=== PATIENT | female | born 1940 | race Caucasian/White ===

== ENCOUNTER 2023-08-25 16:14 | Emergency (ER) | payer MEDICARE ==
--- NOTE | 2023-08-25 18:51 | ED ---
General Adult HPI - General Chief complaint: Nausea/Vomiting/Diarrhea Stated complaint: DEHYDRATION Time Seen by Provider: 08/25/23 18:35 Source: patient, EMS, RN notes reviewed Mode of arrival: EMS Limitations: no limitations - History of Present Illness Initial comments: 83-year-old female presents emergency department with chief complaint of large bowel movement today. Patient states that she slid to the floor earlier today. She did not hit her head or lose consciousness. She is on Eliquis. She denies any injury from this. She was evaluated by EMS at the time. EMS left her house and she then had an episode where she had a large bowel movement and therefore her daughter called the EMS again. She was then brought to the hospital for further evaluation. She denies abdominal pain, chest pain, shortness of breath, lower extremity swelling, fever. - Related Data Home Medications Medication Instructions Recorded Confirmed Acetaminophen [Tylenol 8 Hour] 1,300 mg PO HS 08/25/23 08/25/23 Acetaminophen [Tylenol Arthritis] 650 mg PO AC-BRKFST 08/25/23 08/25/23 Apixaban [Eliquis] 5 mg PO AC-BID 08/25/23 08/25/23 Atorvastatin [Lipitor] 40 mg PO AC-BRKFST 08/25/23 08/25/23 Calcium Carbonate [Calcium] 600 mg PO HS 08/25/23 08/25/23 Diclofenac Sodium Gel [Voltaren 1% 1 applic TOPICAL QID PRN 08/25/23 08/25/23 Gel] Dulaglutide [Trulicity] 0.75 mg SQ WE 08/25/23 08/25/23 Escitalopram [Lexapro] 20 mg PO DAILY 08/25/23 08/25/23 Ferrous Sulfate [Feosol] 325 mg PO HS 08/25/23 08/25/23 Gabapentin [Neurontin] 300 mg PO TID 08/25/23 08/25/23 Insulin Glargine-Yfgn [Semglee 10 units SQ HS 08/25/23 08/25/23 (Yfgn) Pen] Insulin Lispro 3 unit SQ DIRECTED PRN 08/25/23 08/25/23 Ipratropium-Albuterol Nebulize 3 ml INHALATION RT-QID PRN 08/25/23 08/25/23 [Duoneb 0.5 mg-3 mg/3 ml Soln] Levothyroxine Sodium [Synthroid] 12.5 mcg PO AC-BRKFST 08/25/23 08/25/23 Loperamide HCl [Imodium A-D] 2 mg PO QID PRN 08/25/23 08/25/23 Loratadine 10 mg PO HS 08/25/23 08/25/23 Montelukast [Singulair] 10 mg PO HS 08/25/23 08/25/23 Steger-3/Dha/Epa/Fish Oil [Fish Oil 1 cap PO HS 08/25/23 08/25/23 1,000 mg Softgel] Pantoprazole [Protonix] 40 mg PO AC-BRKFST 08/25/23 08/25/23 Potassium Gluconate 99 mg PO HS 08/25/23 08/25/23 Prevagen 1 tab PO BID 08/25/23 08/25/23 Super B Complex 1 tab PO HS 08/25/23 08/25/23 Tiotropium 2.5 Mcg/Puff [Spiriva 1 puff INHALATION RT-DAILY PRN 08/25/23 08/25/23 Respimat 2.5 Mcg] dilTIAZem HCL [dilTIAZem HCL 24Hr 180 mg PO AC-BRKFST 08/25/23 08/25/23 ER (Xr)] Previous Rx's Medication Instructions Recorded Cephalexin [Keflex] 500 mg PO Q6HR #28 cap 08/25/23 Allergies Allergy/AdvReac Type Severity Reaction Status Date / Time Penicillins Allergy Rash/Hives Verified 08/25/23 17:04 Review of Systems ROS Statement: Those systems with pertinent positive or pertinent negative responses have been documented in the HPI. ROS Other: All systems not noted in ROS Statement are negative. Past Medical History Past Medical History: Atrial Fibrillation, Diabetes Mellitus, Hypertension, Memory Impairment Additional Past Medical History / Comment(s): patient poor historian History of Any Multi-Drug Resistant Organisms: None Reported Past Surgical History: Appendectomy Additional Past Surgical History / Comment(s): patient poor historian Past Psychological History: No Psychological Hx Reported Smoking Status: Never smoker Past Alcohol Use History: None Reported Past Drug Use History: None Reported General Exam Limitations: no limitations General appearance: alert, in no apparent distress Head exam: Present: atraumatic, normocephalic, normal inspection Eye exam: Present: normal appearance, PERRL, EOMI. Absent: scleral icterus, conjunctival injection, periorbital swelling ENT exam: Present: normal exam, mucous membranes moist Neck exam: Present: normal inspection. Absent: tenderness, meningismus, lymphadenopathy Respiratory exam: Present: normal lung sounds bilaterally. Absent: respiratory distress, wheezes, rales, rhonchi, stridor Cardiovascular Exam: Present: regular rate, normal rhythm, normal heart sounds. Absent: systolic murmur, diastolic murmur, rubs, gallop, clicks GI/Abdominal exam: Present: soft, normal bowel sounds. Absent: distended, tenderness, guarding, rebound, rigid Extremities exam: Present: normal inspection, full ROM, normal capillary refill. Absent: tenderness, pedal edema, joint swelling, calf tenderness Back exam: Present: normal inspection Neurological exam: Present: alert, oriented X3 Psychiatric exam: Present: normal affect, normal mood Skin exam: Present: warm, dry, intact, normal color. Absent: rash Course Vital Signs 08/25/23 08/25/23 08/25/23 16:34 17:02 18:02 Temperature 97.9 F Pulse Rate 95 89 85 Respiratory 18 16 18 Rate Blood Pressure 129/68 122/65 131/68 O2 Sat by Pulse 98 Oximetry 08/25/23 08/25/23 19:02 23:41 Temperature 97.6 F Pulse Rate 87 84 Respiratory 20 18 Rate Blood Pressure 143/59 151/84 O2 Sat by Pulse 95 Oximetry Medical Decision Making - Medical Decision Making Was pt. sent in by a medical professional or institution (, PA, SETTER HELPER, urgent care, hospital, or [facility]...) When possible be specific @ -No Did you speak to anyone other than the patient for history (EMS, parent, family, police, friend...)? What history was obtained from this source @ -EMS Did you review nursing and triage notes (agree or disagree)? Why? @ -I reviewed and agree with nursing and triage notes Were old charts reviewed (outside hosp., previous admission, EMS record, old EKG, old radiological studies, urgent care reports/EKG's, [facility] records)? Report findings @ -No old charts were reviewed Differential Diagnosis (chest pain, altered mental status, abdominal pain women, abdominal pain men, vaginal bleeding, weakness, fever, dyspnea, syncope, headache, dizziness, GI bleed, back pain, seizure, CVA, palpatations, mental health, musculoskeletal)? @ -not applicable EKG interpreted by me (3pts min.). @ -none X-rays interpreted by me (1pt min.). @ -None done CT interpreted by me (1pt min.). @ -None done U/S interpreted by me (1pt. min.). @ -None done What testing was considered but not performed or refused? (CT, X-rays, U/S, labs)? Why? @ -None What meds were considered but not given or refused? Why? @ -None Did you discuss the management of the patient with other professionals (professionals i.e. , PA, SETTER HELPER, lab, RT, psych nurse, social services assistant, center administrator, teacher, chief sustainability officer, insurance case manager)? Give summary @ -No Was smoking cessation discussed for >3mins.? @ -No Was critical care preformed (if so, how long)? @ -No Were there social determinants of health that impacted care today? How? (Homelessness, low income, unemployed, alcoholism, drug addiction, transportation, low edu. Level, literacy, decrease access to med. care, [facility], rehab)? @ -No Was there de-escalation of care discussed even if they declined (Discuss DNR or withdrawal of care, Hospice)? DNR status @ -No What co-morbidities impacted this encounter? (DM, HTN, Smoking, COPD, CAD, Cancer, CVA, ARF, Chemo, Hep., AIDS, mental health diagnosis, sleep apnea, morbid obesity)? @ -None Was patient admitted / discharged? Hospital course, mention meds given and route, prescriptions, significant lab abnormalities, going to OR and other pertinent info. @ -discharged. Patient presented to the emergency department via EMS for sliding off the toilet and having a large bowel movement today. She is not having any pain at this time. Denies abdominal pain. Abdomen is soft, nontender. CBC shows 30 CVA 0.3, hemoglobin 12.4, hematocrit 37.1; PT/INR, PTT within normal limits; CMP shows sodium 139, potassium 4.3, creatinine 0.86, glucose 178; UA shows small blood, positive nitrates, large leukocyte esterase. Patient will be treated with Keflex 500 mg QID for UTI. Patient will be discharged home. Patient stable at time of discharge. Case discussed with Dr. Saldana, [facility] Undiagnosed new problem with uncertain prognosis? @ -No Drug Therapy requiring intensive monitoring for toxicity (Heparin, Nitro, Insulin, Cardizem)? @ -No Were any procedures done? @ -No Diagnosis/symptom? @ -UTI Acute, or Chronic, or Acute on Chronic? @ -acute Uncomplicated (without systemic symptoms) or Complicated (systemic symptoms)? @ uncomplicated] Side effects of treatment? @ -No Exacerbation, Progression, or Severe Exacerbation? @ -No Poses a threat to life or bodily function? How? (Chest pain, [place], DE, pneumonia, PE, COPD, DKA, ARF, appy, cholecystitis, CVA, Diverticulitis, Homicidal, Suicidal, threat to staff... and all critical care pts) @ -No - Lab Data Result diagrams: 08/25/23 19:59 08/25/23 19:59 Lab Results 08/25/23 08/25/23 08/25/23 Range/Units 19:59 19:59 19:59 WBC 8.3 (3.8-10.6) k/uL RBC 4.21 (3.80-5.40) m/uL Hgb 12.4 (11.4-16.0) gm/dL Hct 37.1 (34.0-46.0) % MCV 88.0 (80.0-100.0) fL MCH 29.4 (25.0-35.0) pg MCHC 33.4 (31.0-37.0) g/dL RDW 14.1 (11.5-15.5) % Plt Count 185 (150-450) k/uL MPV 9.1 Neutrophils % 74 % Lymphocytes % 17 % Monocytes % 6 % Eosinophils % 1 % Basophils % 0 % Neutrophils # 6.2 (1.3-7.7) k/uL Lymphocytes # 1.4 (1.0-4.8) k/uL Monocytes # 0.5 (0-1.0) k/uL Eosinophils # 0.1 (0-0.7) k/uL Basophils # 0.0 (0-0.2) k/uL PT (10.0-12.5) sec INR (<1.2) APTT (22.0-30.0) sec Sodium 139 (137-145) mmol/L Potassium 4.3 (3.5-5.1) mmol/L Chloride 104 (98-107) mmol/L Carbon Dioxide 26 (22-30) mmol/L Anion Gap 9 mmol/L BUN 17 (7-17) mg/dL Creatinine 0.86 (0.52-1.04) mg/dL Est GFR (CKD-EPI)AfAm 73 (>60 ml/min/1.73 sqM) Est GFR (CKD-EPI)NonAf 63 (>60 ml/min/1.73 sqM) Glucose 178 H (74-99) mg/dL Calcium 9.0 (8.4-10.2) mg/dL Total Bilirubin 0.8 (0.2-1.3) mg/dL AST 25 (14-36) U/L ALT 22 (4-34) U/L Alkaline Phosphatase 90 (38-126) U/L Total Protein 6.1 L (6.3-8.2) g/dL Albumin 3.4 L (3.5-5.0) g/dL Lipase 58 (23-300) U/L Urine Color Yellow Urine Appearance Turbid H (Clear) Urine pH 5.5 (5.0-8.0) Ur Specific Cisco 1.024 (1.001-1.035) Urine Protein 1+ H (Negative) Urine Glucose (UA) Negative (Negative) Urine Ketones Negative (Negative) Urine Blood Small H (Negative) Urine Nitrite Positive H (Negative) Urine Bilirubin Negative (Negative) Urine Urobilinogen <2.0 (<2.0) mg/dL Ur Leukocyte Esterase Large H (Negative) Urine RBC 83 H (0-5) /hpf Urine WBC >182 H (0-5) /hpf Urine WBC Clumps Many H (None) /hpf Ur Squamous Epith Cells 1 (0-4) /hpf Urine Bacteria Many H (None) /hpf Urine Mucus Moderate H (None) /hpf 08/25/23 Range/Units 20:40 WBC (3.8-10.6) k/uL RBC (3.80-5.40) m/uL Hgb (11.4-16.0) gm/dL Hct (34.0-46.0) % MCV (80.0-100.0) fL MCH (25.0-35.0) pg MCHC (31.0-37.0) g/dL RDW (11.5-15.5) % Plt Count (150-450) k/uL MPV Neutrophils % % Lymphocytes % % Monocytes % % Eosinophils % % Basophils % % Neutrophils # (1.3-7.7) k/uL Lymphocytes # (1.0-4.8) k/uL Monocytes # (0-1.0) k/uL Eosinophils # (0-0.7) k/uL Basophils # (0-0.2) k/uL PT 10.3 (10.0-12.5) sec INR 0.9 (<1.2) APTT 24.4 (22.0-30.0) sec Sodium (137-145) mmol/L Potassium (3.5-5.1) mmol/L Chloride (98-107) mmol/L Carbon Dioxide (22-30) mmol/L Anion Gap mmol/L BUN (7-17) mg/dL Creatinine (0.52-1.04) mg/dL Est GFR (CKD-EPI)AfAm (>60 ml/min/1.73 sqM) Est GFR (CKD-EPI)NonAf (>60 ml/min/1.73 sqM) Glucose (74-99) mg/dL Calcium (8.4-10.2) mg/dL Total Bilirubin (0.2-1.3) mg/dL AST (14-36) U/L ALT (4-34) U/L Alkaline Phosphatase (38-126) U/L Total Protein (6.3-8.2) g/dL Albumin (3.5-5.0) g/dL Lipase (23-300) U/L Urine Color Urine Appearance (Clear) Urine pH (5.0-8.0) Ur Specific Cisco (1.001-1.035) Urine Protein (Negative) Urine Glucose (UA) (Negative) Urine Ketones (Negative) Urine Blood (Negative) Urine Nitrite (Negative) Urine Bilirubin (Negative) Urine Urobilinogen (<2.0) mg/dL Ur Leukocyte Esterase (Negative) Urine RBC (0-5) /hpf Urine WBC (0-5) /hpf Urine WBC Clumps (None) /hpf Ur Squamous Epith Cells (0-4) /hpf Urine Bacteria (None) /hpf Urine Mucus (None) /hpf Disposition Clinical Impression: UTI (urinary tract infection) Disposition: HOME SELF-CARE Condition: Stable Instructions (If sedation given, give patient instructions): Urinary Tract Infection in Women (ED) Additional Instructions: Please follow up with your primary care provider. Return to the emergency depa rtment for new or worsening symptoms. Prescriptions: Cephalexin [Keflex] 500 mg PO Q6HR #28 cap Is patient prescribed a controlled substance at d/c from ED?: No Referrals: None,Stated [Primary Care Provider] - 1-2 days
[2023-08-25 20:29] LABS: Basophils % (A) 0 %; Eosinophils # (A) 0.1 k/uL (0-0.7); Eosinophils % (A) 1 %; HCT 37.1 % (34.0-46.0); HGB 12.4 gm/dL (11.4-16.0); Lymphocytes # (A) 1.4 k/uL (1.0-4.8); Lymphocytes % (A) 17 %; MCH 29.4 pg (25.0-35.0); MCHC 33.4 g/dL (31.0-37.0); Mean Platelet Volume 9.1; Monocytes # (A) 0.5 k/uL (0-1.0); Monocytes % (A) 6 %; Neutrophils # (A) 6.2 k/uL (1.3-7.7); Neutrophils % (A) 74 %; Platelet Count 185 k/uL (150-450); RBC 4.21 m/uL (3.80-5.40); RDW 14.1 % (11.5-15.5); WBC 8.3 k/uL (3.8-10.6)
[2023-08-25 20:45] LABS: ALT 22 U/L (4-34); AST 25 U/L (14-36); African American GFR (CKD) 73 (>60 ml/min/1.73 sqM); Albumin 3.4 g/dL (3.5-5.0); Alkaline Phosphatase 90 U/L (38-126); Anion Gap 9 mmol/L; Blood Urea Nitrogen 17 mg/dL (7-17); Carbon Dioxide 26 mmol/L (22-30); Chloride 104 mmol/L (98-107); Glucose 178 mg/dL (74-99); Lipase 58 U/L (23-300); Non-African American GFR(CKD) 63 (>60 ml/min/1.73 sqM); Potassium 4.3 mmol/L (3.5-5.1); Sodium 139 mmol/L (137-145); Total Bilirubin 0.8 mg/dL (0.2-1.3); Total Protein 6.1 g/dL (6.3-8.2)
[2023-08-25 21:13] LABS: INR 0.9 (<1.2); Partial Thromboplastin Time 24.4 sec (22.0-30.0); Prothrombin Time 10.3 sec (10.0-12.5)
[2023-08-25 22:52] LABS: Appearance,Urine Turbid (Clear); Bacteria,Urine Many /hpf; Bilirubin,Urine Negative (Negative); Blood,Urine Small (Negative); Color,Urine Yellow; Glucose,Urine (UA) Negative (Negative); Ketones,Urine Negative (Negative); Leukocyte Esterase,Urine Large (Negative); Mucus,Urine Moderate /hpf; Nitrite,Urine Positive (Negative); PH, Urine 5.5 (5.0-8.0); Protein,Urine 1+ (Negative); RBC,Urine 83 /hpf (0-5); Specific Gravity,Urine 1.024 (1.001-1.035); Squamous Epithelial Cell,Urine 1 /hpf (0-4); Urobilinogen,Urine <2.0 mg/dL (<2.0); WBC,Urine >182 /hpf (0-5)
[2023-08-25] MEDS ORDERED: CEPHALEXIN 500 MG CAP PO STA (22:56)
[2023-08-26 00:03] VITALS: BP 151/84; PULSE 84; RESP 18; TEMP 97.6
== END 2023-08-26 00:31 | disposition home or self-care (01) ==
LOC: EC 16:14
DX: N39.0 Urinary tract infection, site not specified (principal); I10 Essential (primary) hypertension; E11.9 Type 2 diabetes mellitus without complications; I48.91 Unspecified atrial fibrillation; Z79.4 Long term (current) use of insulin; Z79.899 Other long term (current) drug therapy
CPT/HCPCS: 36415; 80053; 81001; 83690; 85025; 85610; 85730; 87086; 99284

== ENCOUNTER 2023-09-18 21:31 | Observation (INO) | payer MEDICARE ==
[2023-09-18 21:48] LABS: Glucose,Whole Blood 338 mg/dL (70-110)
[2023-09-19 01:19] LABS: Basophils % (A) 1 %; Eosinophils # (A) 0.2 k/uL (0-0.7); Eosinophils % (A) 3 %; HCT 39.2 % (34.0-46.0); HGB 12.9 gm/dL (11.4-16.0); Lymphocytes # (A) 2.4 k/uL (1.0-4.8); Lymphocytes % (A) 38 %; MCH 28.9 pg (25.0-35.0); MCV 87.5 fL (80.0-100.0); Mean Platelet Volume 9.1; Monocytes # (A) 0.4 k/uL (0-1.0); Monocytes % (A) 7 %; Neutrophils # (A) 3.1 k/uL (1.3-7.7); Neutrophils % (A) 50 %; Platelet Count 215 k/uL (150-450); RBC 4.48 m/uL (3.80-5.40); RDW 14.5 % (11.5-15.5); WBC 6.2 k/uL (3.8-10.6)
[2023-09-19 01:40] LABS: ALT 16 U/L (4-34); AST 21 U/L (14-36); African American GFR (CKD) >90 (>60 ml/min/1.73 sqM); Albumin 3.8 g/dL (3.5-5.0); Alkaline Phosphatase 89 U/L (38-126); Anion Gap 13 mmol/L; Blood Urea Nitrogen 13 mg/dL (7-17); Carbon Dioxide 23 mmol/L (22-30); Chloride 99 mmol/L (98-107); Glucose 294 mg/dL (74-99); Non-African American GFR(CKD) 79 (>60 ml/min/1.73 sqM); Potassium 4.4 mmol/L (3.5-5.1); Sodium 135 mmol/L (137-145); Total Bilirubin 0.7 mg/dL (0.2-1.3); Total Protein 6.6 g/dL (6.3-8.2)
[2023-09-19 01:41] LABS: INR 0.9 (<1.2); Prothrombin Time 9.9 sec (10.0-12.5)
--- NOTE | 2023-09-19 01:46 | XR ---
EXAM: XR Chest, 2 Views CLINICAL HISTORY: ITS.REASON XR Reason: Weakness TECHNIQUE: Frontal and lateral views of the chest. COMPARISON: No relevant prior studies available. FINDINGS: Lungs: No consolidation. No overt edema. Pleural space: No pleural effusion. No pneumothorax. Heart: Unremarkable. No cardiomegaly. Bones/joints: Unremarkable. No fracture or malalignment. IMPRESSION: No acute cardiopulmonary abnormality.
[2023-09-19 01:55] LABS: Partial Thromboplastin Time 19.4 sec (22.0-30.0)
[2023-09-19 03:30] LABS: Bacteria,Urine Many /hpf; Mucus,Urine Rare /hpf; RBC,Urine 27 /hpf (0-5); Squamous Epithelial Cell,Urine 3 /hpf (0-4); WBC,Urine >182 /hpf (0-5)
[2023-09-19 03:31] LABS: Appearance,Urine Cloudy (Clear); Bilirubin,Urine Negative (Negative); Blood,Urine Small (Negative); Color,Urine Yellow; Glucose,Urine (UA) 3+ (Negative); Ketones,Urine Negative (Negative); PH, Urine 5.5 (5.0-8.0); Protein,Urine Trace (Negative); Urobilinogen,Urine <2.0 mg/dL (<2.0)
[2023-09-19 03:32] LABS: Leukocyte Esterase,Urine Large (Negative); Nitrite,Urine Positive (Negative)
[2023-09-19] MEDS ORDERED: ACETAMINOPHEN TAB 325 MG TAB PO PRN (03:40)
[2023-09-19] MEDS ORDERED: NALOXONE 0.4 MG/ML 1 ML VIAL IV PRN (03:40)
[2023-09-19] MEDS ORDERED: IBUPROFEN 400 MG TAB PO PRN (03:40)
[2023-09-19] MEDS ORDERED: cefTRIAXone IN SWFI 1,000 MG/10 ML SYRINGE IVP STA ×2 (03:40→08:15)
[2023-09-19] MEDS ORDERED: SODIUM CHLORIDE 0.9% 500 ML 500 ML IV ONE (03:41)
--- NOTE | 2023-09-19 03:42 | ED ---
General Adult HPI - General Chief complaint: Recheck/Abnormal Lab/Rx Stated complaint: Hyperglycemia,uti poss Time Seen by Provider: 09/19/23 01:24 Source: patient Mode of arrival: ambulatory Limitations: no limitations - History of Present Illness Initial comments: 83-year-old female presenting with chief complaint of confusion. Patient is difficult to obtain history from given this confusion. I'm told that she slipped out of her chair at home and called EMS for left assistance. Patient feels like she may have a UTI. She is having some suprapubic pain. She admits to weakness. Patient states that she lives with her daughter, daughter is not present. No fevers or chills. No nausea or vomiting. No chest pain or difficulty breathing. - Related Data Home Medications Medication Instructions Recorded Confirmed Acetaminophen [Tylenol 8 Hour] 1,300 mg PO HS 08/25/23 08/25/23 Acetaminophen [Tylenol Arthritis] 650 mg PO AC-BRKFST 08/25/23 08/25/23 Apixaban [Eliquis] 5 mg PO AC-BID 08/25/23 08/25/23 Atorvastatin [Lipitor] 40 mg PO AC-BRKFST 08/25/23 08/25/23 Calcium Carbonate [Calcium] 600 mg PO HS 08/25/23 08/25/23 Diclofenac Sodium Gel [Voltaren 1% 1 applic TOPICAL QID PRN 08/25/23 08/25/23 Gel] Dulaglutide [Trulicity] 0.75 mg SQ WE 08/25/23 08/25/23 Escitalopram [Lexapro] 20 mg PO DAILY 08/25/23 08/25/23 Ferrous Sulfate [Feosol] 325 mg PO HS 08/25/23 08/25/23 Gabapentin [Neurontin] 300 mg PO TID 08/25/23 08/25/23 Insulin Glargine-Yfgn [Semglee 10 units SQ HS 08/25/23 08/25/23 (Yfgn) Pen] Insulin Lispro 3 unit SQ DIRECTED PRN 08/25/23 08/25/23 Ipratropium-Albuterol Nebulize 3 ml INHALATION RT-QID PRN 08/25/23 08/25/23 [Duoneb 0.5 mg-3 mg/3 ml Soln] Levothyroxine Sodium [Synthroid] 12.5 mcg PO AC-BRKFST 08/25/23 08/25/23 Loperamide HCl [Imodium A-D] 2 mg PO QID PRN 08/25/23 08/25/23 Loratadine 10 mg PO HS 08/25/23 08/25/23 Montelukast [Singulair] 10 mg PO HS 08/25/23 08/25/23 Nitro-3/Dha/Epa/Fish Oil [Fish Oil 1 cap PO HS 08/25/23 08/25/23 1,000 mg Softgel] Pantoprazole [Protonix] 40 mg PO AC-BRKFST 08/25/23 08/25/23 Potassium Gluconate 99 mg PO HS 08/25/23 08/25/23 Prevagen 1 tab PO BID 08/25/23 08/25/23 Super B Complex 1 tab PO HS 08/25/23 08/25/23 Tiotropium 2.5 Mcg/Puff [Spiriva 1 puff INHALATION RT-DAILY PRN 08/25/23 08/25/23 Respimat 2.5 Mcg] dilTIAZem HCL [dilTIAZem HCL 24Hr 180 mg PO AC-BRKFST 08/25/23 08/25/23 ER (Xr)] Previous Rx's Medication Instructions Recorded Cephalexin [Keflex] 500 mg PO Q6HR #28 cap 08/25/23 Allergies Allergy/AdvReac Type Severity Reaction Status Date / Time Penicillins Allergy Rash/Hives Verified 08/25/23 17:04 Review of Systems ROS Statement: Those systems with pertinent positive or pertinent negative responses have been documented in the HPI. ROS Other: All systems not noted in ROS Statement are negative. Past Medical History Past Medical History: Atrial Fibrillation, Diabetes Mellitus, Hypertension, Memory Impairment Additional Past Medical History / Comment(s): patient poor historian History of Any Multi-Drug Resistant Organisms: None Reported Past Surgical History: Appendectomy Additional Past Surgical History / Comment(s): patient poor historian Past Psychological History: No Psychological Hx Reported Smoking Status: Never smoker Past Alcohol Use History: None Reported Past Drug Use History: None Reported General Exam Limitations: no limitations General appearance: alert, in no apparent distress Head exam: Present: atraumatic, normocephalic, normal inspection Eye exam: Present: normal appearance Neck exam: Present: normal inspection, full ROM Respiratory exam: Present: normal lung sounds bilaterally. Absent: respiratory distress, wheezes, rales, rhonchi, stridor Cardiovascular Exam: Present: regular rate, normal rhythm, normal heart sounds. Absent: systolic murmur, diastolic murmur, rubs, gallop, clicks GI/Abdominal exam: Present: soft. Absent: distended, tenderness, guarding, rebound, rigid Neurological exam: Present: alert, altered Psychiatric exam: Present: normal affect, normal mood Skin exam: Present: warm, dry Course Vital Signs 09/18/23 09/19/23 21:33 02:00 Temperature 97.9 F Pulse Rate 61 71 Respiratory 18 18 Rate Blood Pressure 145/80 149/93 O2 Sat by Pulse 97 95 Oximetry EKG Findings - EKG Comments: EKG Findings:: Sinus rhythm with occasional supraventricular premature complexes and a bigeminal pattern. Ventricular rate 70. NM interval 163. QRS 82. QT 406. QTc 427. Medical Decision Making - Medical Decision Making Was pt. sent in by a medical professional or institution (Dr. PA, INSTRUCTIONAL SUPPORT SERVICES DIRECTOR, urgent care, hospital, or senior living...) When possible be specific @ -No Did you speak to anyone other than the patient for history (EMS, parent, family, police, friend...)? What history was obtained from this source @ -No Did you review nursing and triage notes (agree or disagree)? Why? @ -I reviewed and agree with nursing and triage notes Were old charts reviewed (outside hosp., previous admission, EMS record, old EKG, old radiological studies, urgent care reports/EKG's, senior living records)? Report findings @ -No old charts were reviewed Differential Diagnosis (chest pain, altered mental status, abdominal pain women, abdominal pain men, vaginal bleeding, weakness, fever, dyspnea, syncope, headache, dizziness, GI bleed, back pain, seizure, CVA, palpatations, mental h ealth, musculoskeletal)? @ -MDM Differential Weakness: Hypoglycemia, shock, sepsis, hyponatremia, anemia, infection, MA, ETOH, adverse medicine reaction, overdose, stroke. ... This is not meant to be an all- inclusive list EKG interpreted by me (3pts min.). @ -As above X-rays interpreted by me (1pt min.). @ -Chest x-ray shows no acute process CT interpreted by me (1pt min.). @ -None done U/S interpreted by me (1pt. min.). @ -None done What testing was considered but not performed or refused? (CT, X-rays, U/S, labs)? Why? @ -None What meds were considered but not given or refused? Why? @ -None Did you discuss the management of the patient with other professionals (professionals i.e. , PA, INSTRUCTIONAL SUPPORT SERVICES DIRECTOR, lab, RT, psych nurse, manager social responsibility, disability aide, teacher, special officer, employment evaluator/case manager)? Give summary @ -My attending spoke with the [facility] hospitalist group provider on-call who accepted admission Was smoking cessation discussed for >3mins.? @ -No Was critical care preformed (if so, how long)? @ -No Were there social determinants of health that impacted care today? How? (Homelessness, low income, unemployed, alcoholism, drug addiction, transportation, low edu. Level, literacy, decrease access to med. care, group home, rehab)? @ -No Was there de-escalation of care discussed even if they declined (Discuss DNR or withdrawal of care, Hospice)? DNR status @ -No What co-morbidities impacted this encounter? (DM, HTN, Smoking, COPD, CAD, Ca ncer, CVA, ARF, Chemo, Hep., AIDS, mental health diagnosis, sleep apnea, morbid obesity)? @ -None Was patient admitted / discharged? Hospital course, mention meds given and route, prescriptions, significant lab abnormalities, going to OR and other pertinent info. @ -83-year-old female presenting with chief complaint of confusion and weaknes s, suspects that she may have a UTI. History and physical exam were conducted. No leukocytosis or anemia. Hyperglycemic with glucose of 294. Lactic acid 2.3. Normal anion gap and carbon dioxide. Urine shows no ketones. Patient does have a UTI with large leukocytes and positive nitrites. She started on Rocephin, she'll be admitted for UTI, weakness, and confusion. Follow-up with PCP. Report back to ER with any new or worsening symptoms. Discussed return parameters and answered all questions. Patient conveyed verbal understanding and agreed to the plan. I discussed this case in detail with my attending Dr. Saldana Undiagnosed new problem with uncertain prognosis? @ -No Drug Therapy requiring intensive monitoring for toxicity (Heparin, Nitro, Insulin, Cardizem)? @ -No Were any procedures done? @ -No Diagnosis/symptom? @ -UTI Acute, or Chronic, or Acute on Chronic? @ -Acute Uncomplicated (without systemic symptoms) or Complicated (systemic symptoms)? @ -Complicated Side effects of treatment? @ -No Exacerbation, Progression, or Severe Exacerbation? @ -No Poses a threat to life or bodily function? How? (Chest pain, USA, MA, pneumonia, PE, COPD, DKA, ARF, appy, cholecystitis, CVA, Diverticulitis, Homicidal, Suicidal, threat to staff... and all critical care pts) @ -Potentially - Lab Data Result diagrams: 09/19/23 00:49 09/19/23 00:49 Lab Results 09/18/23 09/19/23 09/19/23 Range/Units 21:45 00:49 00:49 WBC 6.2 (3.8-10.6) k/uL RBC 4.48 (3.80-5.40) m/uL Hgb 12.9 (11.4-16.0) gm/dL Hct 39.2 (34.0-46.0) % MCV 87.5 (80.0-100.0) fL MCH 28.9 (25.0-35.0) pg MCHC 33.0 (31.0-37.0) g/dL RDW 14.5 (11.5-15.5) % Plt Count 215 (150-450) k/uL MPV 9.1 Neutrophils % 50 % Lymphocytes % 38 % Monocytes % 7 % Eosinophils % 3 % Basophils % 1 % Neutrophils # 3.1 (1.3-7.7) k/uL Lymphocytes # 2.4 (1.0-4.8) k/uL Monocytes # 0.4 (0-1.0) k/uL Eosinophils # 0.2 (0-0.7) k/uL Basophils # 0.0 (0-0.2) k/uL PT 9.9 L (10.0-12.5) sec INR 0.9 (<1.2) APTT 19.4 L (22.0-30.0) sec Sodium (137-145) mmol/L Potassium (3.5-5.1) mmol/L Chloride (98-107) mmol/L Carbon Dioxide (22-30) mmol/L Anion Gap mmol/L BUN (7-17) mg/dL Creatinine (0.52-1.04) mg/dL Est GFR (CKD-EPI)AfAm (>60 ml/min/1.73 sqM) Est GFR (CKD-EPI)NonAf (>60 ml/min/1.73 sqM) Glucose (74-99) mg/dL POC Glucose (mg/dL) 338 H (70-110) mg/dL POC Glu Education Director ID Sarthak Mckay Plasma Lactic Acid Victor Hugo (0.7-2.0) mmol/L Calcium (8.4-10.2) mg/dL Total Bilirubin (0.2-1.3) mg/dL AST (14-36) U/L ALT (4-34) U/L Alkaline Phosphatase (38-126) U/L Total Protein (6.3-8.2) g/dL Albumin (3.5-5.0) g/dL Urine Color Urine Appearance (Clear) Urine pH (5.0-8.0) Ur Specific [place] (1.001-1.035) Urine Protein (Negative) Urine Glucose (UA) (Negative) Urine Ketones (Negative) Urine Blood (Negative) Urine Nitrite (Negative) Urine Bilirubin (Negative) Urine Urobilinogen (<2.0) mg/dL Ur Leukocyte Esterase (Negative) Urine RBC (0-5) /hpf Urine WBC (0-5) /hpf Urine WBC Clumps (None) /hpf Ur Squamous Epith Cells (0-4) /hpf Urine Bacteria (None) /hpf Urine Mucus (None) /hpf 09/19/23 09/19/23 09/19/23 Range/Units 00:49 00:49 00:49 WBC (3.8-10.6) k/uL RBC (3.80-5.40) m/uL Hgb (11.4-16.0) gm/dL Hct (34.0-46.0) % MCV (80.0-100.0) fL MCH (25.0-35.0) pg MCHC (31.0-37.0) g/dL RDW (11.5-15.5) % Plt Count (150-450) k/uL MPV Neutrophils % % Lymphocytes % % Monocytes % % Eosinophils % % Basophils % % Neutrophils # (1.3-7.7) k/uL Lymphocytes # (1.0-4.8) k/uL Monocytes # (0-1.0) k/uL Eosinophils # (0-0.7) k/uL Basophils # (0-0.2) k/uL PT (10.0-12.5) sec INR (<1.2) APTT (22.0-30.0) sec Sodium 135 L (137-145) mmol/L Potassium 4.4 (3.5-5.1) mmol/L Chloride 99 (98-107) mmol/L Carbon Dioxide 23 (22-30) mmol/L Anion Gap 13 mmol/L BUN 13 (7-17) mg/dL Creatinine 0.71 (0.52-1.04) mg/dL Est GFR (CKD-EPI)AfAm >90 (>60 ml/min/1.73 sqM) Est GFR (CKD-EPI)NonAf 79 (>60 ml/min/1.73 sqM) Glucose 294 H (74-99) mg/dL POC Glucose (mg/dL) (70-110) mg/dL POC Glu Education Director ID Plasma Lactic Acid Victor Hugo 2.3 H* (0.7-2.0) mmol/L Calcium 9.0 (8.4-10.2) mg/dL Total Bilirubin 0.7 (0.2-1.3) mg/dL AST 21 (14-36) U/L ALT 16 (4-34) U/L Alkaline Phosphatase 89 (38-126) U/L Total Protein 6.6 (6.3-8.2) g/dL Albumin 3.8 (3.5-5.0) g/dL Urine Color Yellow Urine Appearance Cloudy H (Clear) Urine pH 5.5 (5.0-8.0) Ur Specific [place] 1.020 (1.001-1.035) Urine Protein Trace H (Negative) Urine Glucose (UA) 3+ (Negative) Urine Ketones Negative (Negative) Urine Blood Small (Negative) Urine Nitrite Positive (Negative) Urine Bilirubin Negative (Negative) Urine Urobilinogen <2.0 (<2.0) mg/dL Ur Leukocyte Esterase Large (Negative) Urine RBC 27 H (0-5) /hpf Urine WBC >182 H (0-5) /hpf Urine WBC Clumps Many H (None) /hpf Ur Squamous Epith Cells 3 (0-4) /hpf Urine Bacteria Many H (None) /hpf Urine Mucus Rare H (None) /hpf Disposition Clinical Impression: UTI (urinary tract infection), Weakness Disposition: ADMITTED IP TO THIS HOSP Condition: Fair Time of Disposition: 03:41
[2023-09-19 06:52] LABS: Glucose,Whole Blood 201 mg/dL (70-110)
[2023-09-19] MEDS: SODIUM CHLORIDE 0.9% 1,000 ML IV SCH ×2 (08:09→18:07)
[2023-09-19] MEDS ORDERED: IPRATROPIUM-ALBUTEROL 3 ML NEB INHALATION PRN (09:03)
[2023-09-19] MEDS ORDERED: NON FORMULARY DRUG (Tiotropium 2.5 Mcg/Puff 10 PUFF Each) INHALATION PRN (09:03)
[2023-09-19] MEDS ORDERED: DEXTROSE 50% SYRINGE 50 ML IVP PRN ×2 (09:05)
[2023-09-19 12:00] LABS: Glucose,Whole Blood 351 mg/dL (70-110)
[2023-09-19] MEDS: ACETAMINOPHEN TAB 325 MG TAB PO SCH (12:10)
[2023-09-19] MEDS: APIXABAN 5 MG TAB PO SCH ×2 (12:10→17:10)
[2023-09-19] MEDS: ESCITALOPRAM 20 MG TAB PO SCH (12:10)
[2023-09-19] MEDS: PANTOPRAZOLE 40 MG TABLET PO SCH (12:11)
[2023-09-19] MEDS: GABAPENTIN 300 MG CAP PO SCH ×3 (12:11→21:42)
[2023-09-19] MEDS: LEVOTHYROXINE 25 MCG TAB PO SCH (12:11)
[2023-09-19] MEDS: INSULIN ASPART (NovoLOG) 100 UNIT/ML VIAL SQ SCH ×3 (12:22→21:40)
--- NOTE | 2023-09-19 12:52 | P.HPIM ---
History of Present Illness H&P Date: 09/19/23 Chief Complaint: Generalized weakness * 83-year-old lady with past medical history significant for atrial fibrillation on anticoagulation with Eliquis, history of hypothyroid, diabetes mellitus type 2, iron deficiency anemia, presents to the emergency department after generalized weakness and unable to get out of the chair at home. Patient states she slipped out of a chair and called EMS persistent. Patient did complain of suprapubic discomfort, patient states she lives with her daughter however she was home alone when this happened. She denied associated fever, chills, nausea, vomiting, chest pain or shortness of breath * Workup in ER included CBC which were WBC 6.9 hemoglobin 12.9 platelet 215, INR of 0.9 * Serum chemistry sodium 135 potassium 4.4 chloride 99 BU and 13 creatinine 0.71 glucose 294 * Serum lactate obtained 2.3 with a follow-up lactate of 1.6 * Urinalysis was obtained which showed extensive amount of WBC, many bacteria, patient was started on IV Rocephin * Patient was given 1 L fluid bolus in ER as well. REVIEW OF SYSTEMS: Generalized weakness, fall, suprapubic discomfort , dysuria CONSTITUTIONAL: No fever, no malaise, no fatigue. HEENT: No recent visual problems or hearing problems. Denied any sore throat. CARDIOVASCULAR: No chest pain, orthopnea, PND, no palpitations, no syncope. PULMONARY: No shortness of breath, no cough, no hemoptysis. GASTROINTESTINAL: Generalized weakness, fall, suprapubic discomfort NEUROLOGICAL: No headaches, no weakness, no numbness. HEMATOLOGICAL: Denies any bleeding or petechiae. GENITOURINARY: Denies any burning micturition, frequency, or urgency. MUSCULOSKELETAL/RHEUMATOLOGICAL: Denies any joint pain, swelling, or any muscle pain. ENDOCRINE: Denies any polyuria or polydipsia. The rest of the 14-point review of systems is negative. PHYSICAL EXAMINATION: GENERAL: The patient is alert and oriented x3, ill appearance HEENT: Pupils are round and equally reacting to light. EOMI. CARDIOVASCULAR: S1 and S2 present. No murmurs, rubs, or gallops. PULMONARY: Chest is clear to auscultation, no wheezing or crackles. ABDOMEN: Soft, suprapubic discomfort MUSCULOSKELETAL: No joint swelling or deformity. EXTREMITIES: No cyanosis, clubbing, or pedal edema. NEUROLOGICAL: Gross neurological examination did not reveal any focal deficits. Past Medical History Past Medical History: Atrial Fibrillation, Diabetes Mellitus, Hypertension, Memory Impairment Additional Past Medical History / Comment(s): patient poor historian History of Any Multi-Drug Resistant Organisms: None Reported Past Surgical History: Appendectomy Additional Past Surgical History / Comment(s): patient poor historian Past Anesthesia/Blood Transfusion Reactions: No Reported Reaction Past Psychological History: No Psychological Hx Reported Smoking Status: Never smoker Past Alcohol Use History: None Reported Past Drug Use History: None Reported Medications and Allergies Home Medications Medication Instructions Recorded Confirmed Type Acetaminophen [Tylenol 8 Hour] 1,300 mg PO HS 08/25/23 09/19/23 History Acetaminophen [Tylenol Arthritis] 650 mg PO AC-BRKFST 08/25/23 09/19/23 History Apixaban [Eliquis] 5 mg PO AC-BID 08/25/23 09/19/23 History Atorvastatin [Lipitor] 40 mg PO AC-BRKFST 08/25/23 09/19/23 History Calcium Carbonate [Calcium] 600 mg PO HS 08/25/23 09/19/23 History Diclofenac Sodium Gel [Voltaren 1% 1 applic TOPICAL QID PRN 08/25/23 09/19/23 History Gel] Dulaglutide [Trulicity] 0.75 mg SQ WE 08/25/23 09/19/23 History Escitalopram [Lexapro] 20 mg PO DAILY 08/25/23 09/19/23 History Ferrous Sulfate [Feosol] 325 mg PO HS 08/25/23 09/19/23 History Gabapentin [Neurontin] 300 mg PO TID 08/25/23 09/19/23 History Insulin Glargine-Yfgn [Semglee 10 units SQ HS 08/25/23 09/19/23 History (Yfgn) Pen] Ipratropium-Albuterol Nebulize 3 ml INHALATION RT-QID PRN 08/25/23 09/19/23 History [Duoneb 0.5 mg-3 mg/3 ml Soln] Levothyroxine Sodium [Synthroid] 12.5 mcg PO AC-BRKFST 08/25/23 09/19/23 History Loperamide HCl [Imodium A-D] 2 mg PO QID PRN 08/25/23 09/19/23 History Loratadine 10 mg PO HS 08/25/23 09/19/23 History Montelukast [Singulair] 10 mg PO HS 08/25/23 09/19/23 History [place]-3/Dha/Epa/Fish Oil [Fish Oil 1 cap PO HS 08/25/23 09/19/23 History 1,000 mg Softgel] Pantoprazole [Protonix] 40 mg PO AC-BRKFST 08/25/23 09/19/23 History Potassium Gluconate 99 mg PO HS 08/25/23 09/19/23 History Prevagen 1 tab PO BID 08/25/23 09/19/23 History Super B Complex 1 tab PO HS 08/25/23 09/19/23 History Tiotropium 2.5 Mcg/Puff [Spiriva 1 puff INHALATION RT-DAILY PRN 08/25/23 09/19/23 History Respimat 2.5 Mcg] dilTIAZem HCL [dilTIAZem HCL 24Hr 180 mg PO AC-BRKFST 08/25/23 09/19/23 History ER (Xr)] Allergies Allergy/AdvReac Type Severity Reaction Status Date / Time Penicillins Allergy Rash/Hives Verified 09/19/23 06:59 Physical Exam Vitals: Vital Signs Temp Pulse Pulse Resp BP BP Pulse Ox 09/19/23 07:59 97.9 F 68 18 168/71 97 09/19/23 06:45 74 125/76 09/19/23 02:00 71 18 149/93 95 09/18/23 21:33 97.9 F 61 18 145/80 97 Intake and Output 09/18/23 09/19/23 09/19/23 22:59 06:59 14:59 Other: Voiding Method External Catheter Weight 98.883 kg 98.883 kg Results CBC & Chem 7: 09/19/23 00:49 09/19/23 00:49 Labs: Abnormal Lab Results - Last 24 Hours (Table) 09/18/23 09/19/23 09/19/23 Range/Units 21:45 00:49 00:49 PT 9.9 L (10.0-12.5) sec APTT 19.4 L (22.0-30.0) sec Sodium (137-145) mmol/L Glucose (74-99) mg/dL POC Glucose (mg/dL) 338 H (70-110) mg/dL Plasma Lactic Acid Victor Hugo (0.7-2.0) mmol/L Urine Appearance Cloudy H (Clear) Urine Protein Trace H (Negative) Urine RBC 27 H (0-5) /hpf Urine WBC >182 H (0-5) /hpf Urine WBC Clumps Many H (None) /hpf Urine Bacteria Many H (None) /hpf Urine Mucus Rare H (None) /hpf 09/19/23 09/19/23 09/19/23 Range/Units 00:49 00:49 06:50 PT (10.0-12.5) sec APTT (22.0-30.0) sec Sodium 135 L (137-145) mmol/L Glucose 294 H (74-99) mg/dL POC Glucose (mg/dL) 201 H (70-110) mg/dL Plasma Lactic Acid [place] 2.3 H* (0.7-2.0) mmol/L Urine Appearance (Clear) Urine Protein (Negative) Urine RBC (0-5) /hpf Urine WBC (0-5) /hpf Urine WBC Clumps (None) /hpf Urine Bacteria (None) /hpf Urine Mucus (None) /hpf Thrombosis Risk Factor Assmnt - Choose All That Apply Other Risk Factors: Yes Each Risk Factor Represents 3 Points: Age 75 years or older Thrombosis Risk Factor Assessment Total Risk Factor Score: 3 Thrombosis Risk Factor Assessment Level: Moderate Risk Assessment and Plan Assessment: Assessment and plan Urinary tract infection Sepsis secondary to UTI Chronic atrial fibrillation Diabetes mellitus type 2 Hypothyroid Hyperlipidemia Hypertension * In regards to urinary tract infection, continue patient on IV Rocephin, follow up on urine cultures and blood cultures * In regards to sepsis from UTI, lactic acid elevated given fluid resuscitation follow-up lactate levels improved follow up on urine cultures and blood cult ures continue IV Rocephin * In regards to atrial fibrillation, continue rate control medications on C ardizem, continue Eliquis >> monitor for hypotension * In regards to diabetes mellitus type 2, Accu-Cheks before meals at bedtime continue Lantus, correctional insulin * In regards to hypothyroid continue Synthyroid * CODE STATUS is full code Time with Patient: Greater than 30
[2023-09-19] MEDS: DILTIAZEM CD 180 MG CAP.ER.24H PO SCH (12:56)
[2023-09-19 17:08] LABS: Glucose,Whole Blood 243 mg/dL (70-110)
[2023-09-19 19:19] LABS: Glucose,Whole Blood 292 mg/dL (70-110)
[2023-09-19 21:15] LABS: Glucose,Whole Blood 216 mg/dL (70-110)
[2023-09-19] MEDS: CALCIUM CARBONATE 500 MG CHEWABLE PO SCH (21:40)
[2023-09-19] MEDS: MONTELUKAST 10 MG TAB PO SCH (21:40)
[2023-09-19] MEDS: ACETAMINOPHEN TAB 500 MG TAB PO SCH (21:40)
[2023-09-19] MEDS: FERROUS SULFATE 325 MG TAB PO SCH (21:40)
[2023-09-19] MEDS: INSULIN DETEMIR (LEVEMIR) 100 UNIT/ML SYR SQ SCH (21:41)
[2023-09-20 05:52] LABS: Glucose,Whole Blood 180 mg/dL (70-110)
[2023-09-20] MEDS: INSULIN ASPART (NovoLOG) 100 UNIT/ML VIAL SQ SCH ×4 (06:26→20:59)
[2023-09-20] MEDS: SODIUM CHLORIDE 0.9% 1,000 ML IV SCH ×2 (07:46→11:45)
[2023-09-20] MEDS: ESCITALOPRAM 20 MG TAB PO SCH (08:31)
[2023-09-20] MEDS: PANTOPRAZOLE 40 MG TABLET PO SCH (08:31)
[2023-09-20] MEDS: ACETAMINOPHEN TAB 325 MG TAB PO SCH (08:31)
[2023-09-20] MEDS: ATORVASTATIN 40 MG TAB PO SCH (08:32)
[2023-09-20] MEDS: LEVOTHYROXINE 25 MCG TAB PO SCH (08:32)
[2023-09-20] MEDS: APIXABAN 5 MG TAB PO SCH ×2 (08:32→16:37)
[2023-09-20] MEDS: DILTIAZEM CD 180 MG CAP.ER.24H PO SCH (08:32)
[2023-09-20] MEDS: GABAPENTIN 300 MG CAP PO SCH ×3 (08:32→20:59)
[2023-09-20 10:57] LABS: HCT 36.4 % (37.2-46.3); HGB 11.6 g/dL (12.0-15.0); MCH 27.6 pg (27.0-32.0); MCHC 31.9 g/dL (32.0-37.0); MCV 86.5 FL (80.0-97.0); Mean Platelet Volume 11.3 FL (9.5-12.2); NRBC Per 100 WBC 0 X 10*3/uL (0.00-0.01); Platelet Count 186 X 10*3/uL (140-440); RBC 4.21 X 10*6/uL (4.10-5.20); RDW 14.4 % (11.5-14.5)
[2023-09-20 11:30] LABS: Glucose,Whole Blood 205 mg/dL (70-110)
[2023-09-20 11:30] LABS: BUN/Creat Ratio 11.12 Ratio (12.00-20.00); Blood Urea Nitrogen 8.9 mg/dL (9.0-27.0); Calcium 8.6 mg/dL (8.7-10.3); Carbon Dioxide 24.7 mmol/L (21.6-31.8); Chloride 106 mmol/L (96-109); Glucose 191 mg/dL (70-110); Potassium 4.2 mmol/L (3.5-5.5); Sodium 142 mmol/L (135-145)
[2023-09-20] MEDS ORDERED: DICLOFENAC SODIUM GEL 100 GM TUBE TOPICAL PRN (11:55)
--- NOTE | 2023-09-20 12:53 | P.PN ---
Subjective Progress Note Date: 09/20/23 * 83-year-old lady with past medical history significant for atrial fibrillation on anticoagulation with Eliquis, history of hypothyroid, diabetes mellitus type 2, iron deficiency anemia, presents to the emergency department after generalized weakness and unable to get out of the chair at home. Patient st ates she slipped out of a chair and called EMS persistent. Patient did complain of suprapubic discomfort, patient states she lives with her daughter however she was home alone when this happened. She denied associated fever, chills, nausea, vomiting, chest pain or shortness of breath * Workup in ER included CBC which were WBC 6.9 hemoglobin 12.9 platelet 215, INR of 0.9 * Serum chemistry sodium 135 potassium 4.4 chloride 99 BU and 13 creatinine 0.71 glucose 294 * Serum lactate obtained 2.3 with a follow-up lactate of 1.6 * Urinalysis was obtained which showed extensive amount of WBC, many bacteria, patient was started on IV Rocephin * Patient was given 1 L fluid bolus in ER as well. * 09/20/2023: Patient seen and evaluated bedside, patient is alert to person and situation however does get confused during conversation. Blood work obtained today showed normal WBC count, urine cultures show gram-negative bacilli, continue patient on IV Rocephin day 2 REVIEW OF SYSTEMS: Generalized weakness, fall, suprapubic discomfort , dysuria, improved CONSTITUTIONAL: No fever, no malaise, no fatigue. HEENT: No recent visual problems or hearing problems. Denied any sore throat. CARDIOVASCULAR: No chest pain, orthopnea, PND, no palpitations, no syncope. PULMONARY: No shortness of breath, no cough, no hemoptysis. GASTROINTESTINAL: Generalized weakness, fall, suprapubic discomfort improved NEUROLOGICAL: No headaches, no weakness, no numbness. HEMATOLOGICAL: Denies any bleeding or petechiae. GENITOURINARY: Denies any burning micturition, frequency, or urgency. MUSCULOSKELETAL/RHEUMATOLOGICAL: Denies any joint pain, swelling, or any muscle pain. ENDOCRINE: Denies any polyuria or polydipsia. The rest of the 14-point review of systems is negative. PHYSICAL EXAMINATION: GENERAL: The patient is alert and oriented x3, ill appearance HEENT: Pupils are round and equally reacting to light. EOMI. CARDIOVASCULAR: S1 and S2 present. No murmurs, rubs, or gallops. PULMONARY: Chest is clear to auscultation, no wheezing or crackles. ABDOMEN: Soft, suprapubic discomfort MUSCULOSKELETAL: No joint swelling or deformity. EXTREMITIES: No cyanosis, clubbing, or pedal edema. NEUROLOGICAL: Gross neurological examination did not reveal any focal deficits. Impaired cognition confused during conversation Objective - Vital Signs Vital signs: Vital Signs Temp 97.4 F L 09/20/23 06:59 Pulse 77 09/20/23 06:59 Resp 18 09/20/23 06:59 BP 164/82 09/20/23 06:59 Pulse Ox 91 L 09/20/23 06:59 FiO2 Intake & Output 09/19/23 09/20/23 09/20/23 18:59 06:59 18:59 Intake Total 1250 Output Total 400 Balance 850 Intake: Intake, IV Titration 450 Amount Sodium Chloride 0.9% 1, 450 000 ml @ 75 mls/hr IV . [id number] [facility] Rx#:[id number] Oral 800 Output: Urine 400 Stool 0 Other: Voiding Method Diaper External Catheter External Catheter External Catheter # Voids 2 1 - Labs CBC & Chem 7: 09/20/23 05:57 09/20/23 05:57 Labs: Abnormal Lab Results - Last 24 Hours (Table) 09/19/23 09/19/23 09/19/23 Range/Units 17:06 19:17 21:13 Hgb (12.0-15.0) g/dL Hct (37.2-46.3) % MCHC (32.0-37.0) g/dL BUN (9.0-27.0) mg/dL BUN/Creatinine Ratio (12.00-20.00) Ratio Glucose (70-110) mg/dL POC Glucose (mg/dL) 243 H 292 H 216 H (70-110) mg/dL Hemoglobin A1c (<=6.0) % Calcium (8.7-10.3) mg/dL 09/20/23 09/20/23 09/20/23 Range/Units 05:45 05:57 05:57 Hgb 11.6 L (12.0-15.0) g/dL Hct 36.4 L (37.2-46.3) % MCHC 31.9 L (32.0-37.0) g/dL BUN (9.0-27.0) mg/dL BUN/Creatinine Ratio (12.00-20.00) Ratio Glucose (70-110) mg/dL POC Glucose (mg/dL) 180 H (70-110) mg/dL Hemoglobin A1c 8.9 H (<=6.0) % Calcium (8.7-10.3) mg/dL 09/20/23 09/20/23 Range/Units 05:57 11:29 Hgb (12.0-15.0) g/dL Hct (37.2-46.3) % MCHC (32.0-37.0) g/dL BUN 8.9 L (9.0-27.0) mg/dL BUN/Creatinine Ratio 11.12 L (12.00-20.00) Ratio Glucose 191 H (70-110) mg/dL POC Glucose (mg/dL) 205 H (70-110) mg/dL Hemoglobin A1c (<=6.0) % Calcium 8.6 L (8.7-10.3) mg/dL Microbiology - Last 24 Hours (Table) 09/19/23 00:49 Urine Culture - Preliminary Urine,Voided Gram Neg Bacilli Assessment and Plan Assessment: Assessment and plan Urinary tract infection Sepsis secondary to UTI Acute delirium secondary to UTI Chronic atrial fibrillation Diabetes mellitus type 2 Hypothyroid Hyperlipidemia Hypertension * In regards to urinary tract infection, continue patient on IV Rocephin Day 2 , follow up on urine cultures gram-negative bacilli and blood cultures * In regards to sepsis from UTI, lactic acid elevated given fluid resuscitation follow-up lactate levels improved follow up on urine cultures and blood cultures>> continue IV Rocephin * In regards to atrial fibrillation, continue rate control medications on Cardizem, continue Eliquis >> monitor for hypotension * In regards to diabetes mellitus type 2, Accu-Cheks before meals at bedtime continue Lantus, correctional insulin * In regards to hypothyroid continue Synthyroid * CODE STATUS is full code
[2023-09-20 17:02] LABS: Glucose,Whole Blood 271 mg/dL (70-110)
[2023-09-20 20:44] LABS: Glucose,Whole Blood 168 mg/dL (70-110)
[2023-09-20] MEDS: MONTELUKAST 10 MG TAB PO SCH (20:59)
[2023-09-20] MEDS: FERROUS SULFATE 325 MG TAB PO SCH (20:59)
[2023-09-20] MEDS: CALCIUM CARBONATE 500 MG CHEWABLE PO SCH (20:59)
[2023-09-20] MEDS: INSULIN DETEMIR (LEVEMIR) 100 UNIT/ML SYR SQ SCH (20:59)
[2023-09-20] MEDS: ACETAMINOPHEN TAB 500 MG TAB PO SCH (20:59)
[2023-09-21 06:15] LABS: Glucose,Whole Blood 154 mg/dL (70-110)
[2023-09-21] MEDS: INSULIN ASPART (NovoLOG) 100 UNIT/ML VIAL SQ SCH ×4 (07:24→21:08)
[2023-09-21] MEDS: ATORVASTATIN 40 MG TAB PO SCH (09:08)
[2023-09-21] MEDS: PANTOPRAZOLE 40 MG TABLET PO SCH (09:08)
[2023-09-21] MEDS: ACETAMINOPHEN TAB 325 MG TAB PO SCH (09:08)
[2023-09-21] MEDS: DILTIAZEM CD 180 MG CAP.ER.24H PO SCH (09:09)
[2023-09-21] MEDS: ESCITALOPRAM 20 MG TAB PO SCH (09:09)
[2023-09-21] MEDS: LEVOTHYROXINE 25 MCG TAB PO SCH (09:09)
[2023-09-21] MEDS: APIXABAN 5 MG TAB PO SCH ×2 (09:10→16:59)
[2023-09-21] MEDS: GABAPENTIN 300 MG CAP PO SCH ×3 (09:10→21:07)
[2023-09-21] MEDS: SODIUM CHLORIDE 0.9% 1,000 ML IV SCH (09:19)
[2023-09-21 10:53] LABS: HCT 37.8 % (37.2-46.3); HGB 12.2 g/dL (12.0-15.0); MCH 27.9 pg (27.0-32.0); MCHC 32.3 g/dL (32.0-37.0); MCV 86.3 FL (80.0-97.0); Mean Platelet Volume 11.5 FL (9.5-12.2); NRBC Per 100 WBC 0 X 10*3/uL (0.00-0.01); Platelet Count 201 X 10*3/uL (140-440); RBC 4.38 X 10*6/uL (4.10-5.20); RDW 14.3 % (11.5-14.5)
[2023-09-21 10:59] LABS: BUN/Creat Ratio 12.88 Ratio (12.00-20.00); Blood Urea Nitrogen 10.3 mg/dL (9.0-27.0); Calcium 8.5 mg/dL (8.7-10.3); Carbon Dioxide 22.6 mmol/L (21.6-31.8); Chloride 107 mmol/L (96-109); Glucose 231 mg/dL (70-110); Potassium 4.2 mmol/L (3.5-5.5); Sodium 142 mmol/L (135-145)
[2023-09-21 11:16] LABS: Glucose,Whole Blood 362 mg/dL (70-110)
--- NOTE | 2023-09-21 12:29 | P.PN ---
Subjective Progress Note Date: 09/21/23 * 83-year-old lady with past medical history significant for atrial fibrillation on anticoagulation with Eliquis, history of hypothyroid, diabetes mellitus type 2, iron deficiency anemia, presents to the emergency department after generalized weakness and unable to get out of the chair at home. Patient st ates she slipped out of a chair and called EMS persistent. Patient did complain of suprapubic discomfort, patient states she lives with her daughter however she was home alone when this happened. She denied associated fever, chills, nausea, vomiting, chest pain or shortness of breath * Workup in ER included CBC which were WBC 6.9 hemoglobin 12.9 platelet 215, INR of 0.9 * Serum chemistry sodium 135 potassium 4.4 chloride 99 BU and 13 creatinine 0.71 glucose 294 * Serum lactate obtained 2.3 with a follow-up lactate of 1.6 * Urinalysis was obtained which showed extensive amount of WBC, many bacteria, patient was started on IV Rocephin * Patient was given 1 L fluid bolus in ER as well. * 09/20/2023: Patient seen and evaluated bedside, patient is alert to person and situation however does get confused during conversation. Blood work obtained today showed normal WBC count, urine cultures show gram-negative bacilli, continue patient on IV Rocephin day 2 * 09/21/2023 : Patient seen and evaluated bedside, patient working with physical therapy, denies of any acute issues, urine culture does show gram-negative bacilli final identification pending. CBC showed improvement in WBC 6.90,, serum chemistry is essentially normal. Continue current medications including IV Rocephin, potential discharge to subacute rehab depending on clinical course REVIEW OF SYSTEMS: Generalized weakness, fall, suprapubic discomfort , dysuria, improved CONSTITUTIONAL: No fever, no malaise, no fatigue. HEENT: No recent visual problems or hearing problems. Denied any sore throat. CARDIOVASCULAR: No chest pain, orthopnea, PND, no palpitations, no syncope. PULMONARY: No shortness of breath, no cough, no hemoptysis. GASTROINTESTINAL: Generalized weakness, fall, suprapubic discomfort improved NEUROLOGICAL: No headaches, no weakness, no numbness. HEMATOLOGICAL: Denies any bleeding or petechiae. GENITOURINARY: Denies any burning micturition, frequency, or urgency. MUSCULOSKELETAL/RHEUMATOLOGICAL: Denies any joint pain, swelling, or any muscle pain. ENDOCRINE: Denies any polyuria or polydipsia. The rest of the 14-point review of systems is negative. PHYSICAL EXAMINATION: GENERAL: The patient is alert and oriented x3, ill appearance HEENT: Pupils are round and equally reacting to light. EOMI. CARDIOVASCULAR: S1 and S2 present. No murmurs, rubs, or gallops. PULMONARY: Chest is clear to auscultation, no wheezing or crackles. ABDOMEN: Soft, suprapubic discomfort MUSCULOSKELETAL: No joint swelling or deformity. EXTREMITIES: No cyanosis, clubbing, or pedal edema. NEUROLOGICAL: Gross neurological examination did not reveal any focal deficits. Mentation has improved Objective - Vital Signs Vital signs: Vital Signs Temp 97.9 F 09/21/23 07:00 Pulse 78 09/21/23 07:00 Resp 19 09/21/23 07:00 BP 141/85 09/21/23 07:00 Pulse Ox 94 L 09/21/23 07:00 FiO2 Intake & Output 09/20/23 09/21/23 09/21/23 18:59 06:59 18:59 Output Total 1500 3100 450 Balance -1500 -3100 -450 Output: Urine 1500 3100 450 Other: Voiding Method External Catheter External Catheter External Catheter - Labs CBC & Chem 7: 09/21/23 07:43 09/21/23 07:43 Labs: Abnormal Lab Results - Last 24 Hours (Table) 09/20/23 09/20/23 09/21/23 Range/Units 17:00 20:42 06:13 Anion Gap (4.00-12.00) mmol/L Glucose (70-110) mg/dL POC Glucose (mg/dL) 271 H 168 H 154 H (70-110) mg/dL Calcium (8.7-10.3) mg/dL 09/21/23 09/21/23 Range/Units 07:43 11:14 Anion Gap 12.40 H (4.00-12.00) mmol/L Glucose 231 H (70-110) mg/dL POC Glucose (mg/dL) 362 H (70-110) mg/dL Calcium 8.5 L (8.7-10.3) mg/dL Microbiology - Last 24 Hours (Table) 09/19/23 08:25 Blood Culture - Preliminary Blood 09/19/23 07:55 Blood Culture - Preliminary Blood 09/19/23 00:49 Urine Culture - Preliminary Urine,Voided Gram Neg Bacilli Assessment and Plan Assessment: Assessment and plan Urinary tract infection Sepsis secondary to UTI Acute delirium secondary to UTI Chronic atrial fibrillation Diabetes mellitus type 2 Hypothyroid Hyperlipidemia Hypertension * In regards to urinary tract infection, continue patient on IV Rocephin Day 3 , follow up on urine cultures gram-negative bacilli and blood cultures * In regards to sepsis from UTI, lactic acid elevated given fluid resuscitation follow-up lactate levels improved follow up on urine cultures and blood cul tures>> continue IV Rocephin * In regards to atrial fibrillation, continue rate control medications on Cardizem, continue Eliquis >> monitor for hypotension * In regards to diabetes mellitus type 2, Accu-Cheks before meals at bedtime continue Lantus, correctional insulin * In regards to hypothyroid continue Synthyroid * Patient working with physical therapy occupational therapy plan to discharge to subacute rehab * CODE STATUS is full code Time with Patient: Greater than 30
[2023-09-21 16:45] LABS: Glucose,Whole Blood 163 mg/dL (70-110)
[2023-09-21 19:34] LABS: Glucose,Whole Blood 208 mg/dL (70-110)
[2023-09-21] MEDS: FERROUS SULFATE 325 MG TAB PO SCH (21:07)
[2023-09-21] MEDS: ACETAMINOPHEN TAB 500 MG TAB PO SCH (21:07)
[2023-09-21] MEDS: MONTELUKAST 10 MG TAB PO SCH (21:07)
[2023-09-21] MEDS: CALCIUM CARBONATE 500 MG CHEWABLE PO SCH (21:07)
[2023-09-21] MEDS: INSULIN DETEMIR (LEVEMIR) 100 UNIT/ML SYR SQ SCH (21:11)
[2023-09-22 05:23] LABS: Glucose,Whole Blood 147 mg/dL (70-110)
[2023-09-22] MEDS: INSULIN ASPART (NovoLOG) 100 UNIT/ML VIAL SQ SCH ×2 (06:14→12:10)
[2023-09-22] MEDS: ACETAMINOPHEN TAB 325 MG TAB PO SCH (08:12)
[2023-09-22] MEDS: PANTOPRAZOLE 40 MG TABLET PO SCH (08:12)
[2023-09-22] MEDS: ESCITALOPRAM 20 MG TAB PO SCH (08:13)
[2023-09-22] MEDS: GABAPENTIN 300 MG CAP PO SCH (08:13)
[2023-09-22] MEDS: LEVOTHYROXINE 25 MCG TAB PO SCH (08:13)
[2023-09-22] MEDS: ATORVASTATIN 40 MG TAB PO SCH (08:13)
[2023-09-22] MEDS: DILTIAZEM CD 180 MG CAP.ER.24H PO SCH (08:13)
[2023-09-22] MEDS: APIXABAN 5 MG TAB PO SCH (08:14)
[2023-09-22 11:12] LABS: HCT 36.2 % (37.2-46.3); HGB 11.7 g/dL (12.0-15.0); MCH 28.1 pg (27.0-32.0); MCHC 32.3 g/dL (32.0-37.0); MCV 86.8 FL (80.0-97.0); Mean Platelet Volume 11.4 FL (9.5-12.2); NRBC Per 100 WBC 0 X 10*3/uL (0.00-0.01); Platelet Count 190 X 10*3/uL (140-440); RBC 4.17 X 10*6/uL (4.10-5.20); RDW 14.4 % (11.5-14.5)
[2023-09-22 11:29] LABS: Blood Urea Nitrogen 8.4 mg/dL (9.0-27.0); Calcium 8.6 mg/dL (8.7-10.3); Carbon Dioxide 24.3 mmol/L (21.6-31.8); Chloride 104 mmol/L (96-109); Glucose 151 mg/dL (70-110); Sodium 138 mmol/L (135-145)
[2023-09-22 11:31] LABS: Glucose,Whole Blood 222 mg/dL (70-110)
--- NOTE | 2023-09-22 12:26 | P.DS ---
Providers Date of admission: 09/19/23 03:41 Expected date of discharge: 09/22/23 Attending physician: Ryan Moser Primary care physician: Stated None Hospital Course: * 83-year-old lady with past medical history significant for atrial fibrillation on anticoagulation with Eliquis, history of hypothyroid, diabetes mellitus type 2, iron deficiency anemia, presents to the emergency department after generalized weakness and unable to get out of the chair at home. Patient states she slipped out of a chair and called EMS persistent. Patient did complain of suprapubic discomfort, patient states she lives with her daughter however she was home alone when this happened. She denied associated fever, chills, nausea, vomiting, chest pain or shortness of breath * Workup in ER included CBC which were WBC 6.9 hemoglobin 12.9 platelet 215, INR of 0.9 * Serum chemistry sodium 135 potassium 4.4 chloride 99 BU and 13 creatinine 0.71 glucose 294 * Serum lactate obtained 2.3 with a follow-up lactate of 1.6 * Urinalysis was obtained which showed extensive amount of WBC, many bacteria, patient was started on IV Rocephin * Patient was given 1 L fluid bolus in ER as well. * 09/20/2023: Patient seen and evaluated bedside, patient is alert to person and situation however does get confused during conversation. Blood work obtained today showed normal WBC count, urine cultures show gram-negative bacilli, continue patient on IV Rocephin day 2 * 09/21/2023 : Patient seen and evaluated bedside, patient working with physical therapy, denies of any acute issues, urine culture does show gram-negative bacilli final identification pending. CBC showed improvement in WBC 6.90,, serum chemistry is essentially normal. Continue current medications including IV Rocephin, potential discharge to subacute rehab depending on clinical course * 09/22/2023: Patient seen and evaluated bedside, patient did have episode of nausea postprandial however that has resolved. Patient to be discharged to subacute rehab, symptoms have improved. Blood work reviewed as well patient to be discharged to subacute rehab REVIEW OF SYSTEMS: Generalized weakness, fall, suprapubic discomfort resolved , dysuria, resolved, nausea resolved CONSTITUTIONAL: No fever, no malaise, no fatigue. HEENT: No recent visual problems or hearing problems. Denied any sore throat. CARDIOVASCULAR: No chest pain, orthopnea, PND, no palpitations, no syncope. PULMONARY: No shortness of breath, no cough, no hemoptysis. GASTROINTESTINAL: Generalized weakness, fall, suprapubic discomfort improved NEUROLOGICAL: No headaches, no weakness, no numbness. HEMATOLOGICAL: Denies any bleeding or petechiae. GENITOURINARY: Denies any burning micturition, frequency, or urgency. MUSCULOSKELETAL/RHEUMATOLOGICAL: Denies any joint pain, swelling, or any muscle pain. ENDOCRINE: Denies any polyuria or polydipsia. The rest of the 14-point review of systems is negative. PHYSICAL EXAMINATION: GENERAL: The patient is alert and oriented x3, chronic ill appearance HEENT: Pupils are round and equally reacting to light. EOMI. CARDIOVASCULAR: S1 and S2 present. No murmurs, rubs, or gallops. PULMONARY: Chest is clear to auscultation, no wheezing or crackles. ABDOMEN: Soft, suprapubic discomfort resolved MUSCULOSKELETAL: No joint swelling or deformity. EXTREMITIES: No cyanosis, clubbing, or pedal edema. NEUROLOGICAL: Gross neurological examination did not reveal any focal deficits. Mentation has improved, alert and oriented 4 Assessment: Assessment and plan Urinary tract infection Sepsis secondary to UTI Klebsiella pneumoniae UTI Acute delirium secondary to UTI resolved Chronic atrial fibrillation Diabetes mellitus type 2 Hypothyroid Hyperlipidemia Hypertension * In regards to urinary tract infection, continue patient on IV Rocephin Day 4>> switched to oral Ceftin , follow up on urine cultures gram-negative bacilli B saline pneumonia and UTI and blood cultures no growth to date * In regards to sepsis from UTI, lactic acid elevated given fluid resuscitation follow-up lactate levels improved follow up on urine cultures and blood cultures>> transition from IV Rocephin to oral Ceftin * In regards to atrial fibrillation, continue rate control medications on Cardizem, continue Eliquis >> monitor for hypotension * In regards to diabetes mellitus type 2, Accu-Cheks before meals at bedtime, continue home regimen upon discharge * In regards to hypothyroid continue Synthyroid * Patient working with physical therapy occupational therapy discharge to subacute rehab Patient Condition at Discharge: Fair Plan - Discharge Summary Discharge Rx Participant: No New Discharge Prescriptions: Continue [place]-3/Dha/Epa/Fish Oil [Fish Oil 1,000 mg Softgel] 1 cap PO HS Loratadine 10 mg PO HS Ferrous Sulfate [Iron (65 MG Elemental)] 325 mg PO HS dilTIAZem HCL [dilTIAZem HCL 24Hr ER (Xr)] 180 mg PO AC-BRKFST Escitalopram [Lexapro] 20 mg PO DAILY Pantoprazole [Protonix] 40 mg PO AC-BRKFST Atorvastatin [Lipitor] 40 mg PO AC-BRKFST Tiotropium 2.5 Mcg/Puff [Spiriva Respimat 2.5 Mcg] 1 puff INHALATION RT-DAILY PRN PRN Reason: Shortness Of Breath Diclofenac Sodium Gel [Voltaren 1% Gel] 1 applic TOPICAL QID PRN PRN Reason: Pain Loperamide HCl [Imodium A-D] 2 mg PO QID PRN PRN Reason: Diarrhea Insulin Glargine-Yfgn [Semglee (Yfgn) Pen] 10 units SQ HS Acetaminophen [Tylenol Arthritis] 650 mg PO AC-BRKFST Super B Complex 1 tab PO HS Acetaminophen [Tylenol 8 Hour] 1,300 mg PO HS Potassium Gluconate 99 mg PO HS Levothyroxine Sodium [Synthroid] 12.5 mcg PO AC-BRKFST Calcium Carbonate [Calcium] 600 mg PO HS Montelukast [Singulair] 10 mg PO HS Apixaban [Eliquis] 5 mg PO AC-BID Ipratropium-Albuterol Nebulize [Duoneb 0.5 mg-3 mg/3 ml Soln] 3 ml INHALATION RT-QID PRN PRN Reason: Shortness Of Breath Prevagen 1 tab PO BID Dulaglutide [Trulicity] 0.75 mg SQ WE Gabapentin [Neurontin] 300 mg PO TID 3 Days #9 cap Discharge Medication List Acetaminophen [Tylenol 8 Hour] 1,300 mg PO HS 08/25/23 [History] Acetaminophen [Tylenol Arthritis] 650 mg PO AC-BRKFST 08/25/23 [History] Apixaban [Eliquis] 5 mg PO AC-BID 08/25/23 [History] Atorvastatin [Lipitor] 40 mg PO AC-BRKFST 08/25/23 [History] Calcium Carbonate [Calcium] 600 mg PO HS 08/25/23 [History] Diclofenac Sodium Gel [Voltaren 1% Gel] 1 applic TOPICAL QID PRN 08/25/23 [History] Dulaglutide [Trulicity] 0.75 mg SQ WE 08/25/23 [History] Escitalopram [Lexapro] 20 mg PO DAILY 08/25/23 [History] Ferrous Sulfate [Iron (65 MG Elemental)] 325 mg PO HS 08/25/23 [History] Insulin Glargine-Yfgn [Semglee (Yfgn) Pen] 10 units SQ HS 08/25/23 [History] Ipratropium-Albuterol Nebulize [Duoneb 0.5 mg-3 mg/3 ml Soln] 3 ml INHALATION RT-QID PRN 08/25/23 [History] Levothyroxine Sodium [Synthroid] 12.5 mcg PO AC-BRKFST 08/25/23 [History] Loperamide HCl [Imodium A-D] 2 mg PO QID PRN 08/25/23 [History] Loratadine 10 mg PO HS 08/25/23 [History] Montelukast [Singulair] 10 mg PO HS 08/25/23 [History] [place]-3/Dha/Epa/Fish Oil [Fish Oil 1,000 mg Softgel] 1 cap PO HS 08/25/23 [History] Pantoprazole [Protonix] 40 mg PO AC-BRKFST 08/25/23 [History] Potassium Gluconate 99 mg PO HS 08/25/23 [History] Prevagen 1 tab PO BID 08/25/23 [History] Super B Complex 1 tab PO HS 08/25/23 [History] Tiotropium 2.5 Mcg/Puff [Spiriva Respimat 2.5 Mcg] 1 puff INHALATION RT-DAILY PRN 08/25/23 [History] dilTIAZem HCL [dilTIAZem HCL 24Hr ER (Xr)] 180 mg PO AC-BRKFST 08/25/23 [History] Gabapentin [Neurontin] 300 mg PO TID 3 Days #9 cap 09/22/23 [Rx] Follow up Appointment(s)/Referral(s): None,Stated [Primary Care Provider] - 1-2 days Discharge/Stand Alone Forms: [facility] PCPs Discharge Disposition: HOME SELF-CARE
[2023-09-22 14:14] VITALS: BP 106/70; PULSE 71; RESP 18; TEMP 97.4
== END 2023-09-22 15:56 | disposition home or self-care (01) ==
LOC: EC 21:31 → EEVIPCON 09-19 03:41 → 6NMEDSUR 09-19 03:41 → 4SSUR 09-19 09:34
PROVIDERS: ADMIT Hospitalist; ATTEND Hospitalist
DX: A41.9 Sepsis, unspecified organism (principal); N39.0 Urinary tract infection, site not specified; B96.1 Klebsiella pneumoniae [K. pneumoniae] as the cause of diseases classified elsewhere; F05 Delirium due to known physiological condition; I48.20 Chronic atrial fibrillation, unspecified; E11.9 Type 2 diabetes mellitus without complications; I10 Essential (primary) hypertension; E03.9 Hypothyroidism, unspecified; E78.5 Hyperlipidemia, unspecified; Z79.01 Long term (current) use of anticoagulants; Z79.899 Other long term (current) drug therapy; Z79.4 Long term (current) use of insulin; Z79.890 Hormone replacement therapy; Z88.0 Allergy status to penicillin
CPT/HCPCS: 96361 ×4; 96365; 96366 ×3; 96372 ×4; 96375; 99285; 36415 ×2; 93005; 97116 ×2; 97530 ×2; 97162; 97535; 97166; 80053; 80048 ×3; 83605; 85025; 85027 ×3; 85610; 85730; 81001; 87040; 87086; 87077; 87186; 83036; 71046; G0378 ×5; J0696 ×5

== ENCOUNTER 2023-09-24 20:06 | Emergency (ER) | payer MEDICARE ==
[2023-09-24] MEDS ORDERED: SODIUM CHLORIDE 0.9% 500 ML 500 ML IV ONE (20:30)
[2023-09-24 20:32] VITALS: TEMP 98.8
[2023-09-24 20:50] LABS: Basophils % (A) 0 %; Eosinophils # (A) 0.2 k/uL (0-0.7); Eosinophils % (A) 2 %; HCT 40.5 % (34.0-46.0); HGB 13.2 gm/dL (11.4-16.0); Lymphocytes # (A) 1.2 k/uL (1.0-4.8); Lymphocytes % (A) 14 %; MCH 28.5 pg (25.0-35.0); MCHC 32.6 g/dL (31.0-37.0); MCV 87.5 fL (80.0-100.0); Mean Platelet Volume 11.8; Monocytes # (A) 0.5 k/uL (0-1.0); Monocytes % (A) 5 %; Neutrophils # (A) 6.7 k/uL (1.3-7.7); Neutrophils % (A) 77 %; Platelet Count 180 k/uL (150-450); RBC 4.63 m/uL (3.80-5.40); RDW 14.9 % (11.5-15.5); WBC 8.8 k/uL (3.8-10.6)
[2023-09-24 21:02] LABS: ALT 30 U/L (4-34); AST 144 U/L (14-36); African American GFR (CKD) 85 (>60 ml/min/1.73 sqM); Albumin 5.3 g/dL (3.5-5.0); Alkaline Phosphatase 34 U/L (38-126); Anion Gap 11 mmol/L; Blood Urea Nitrogen 20 mg/dL (7-17); Calcium 8.3 mg/dL (8.4-10.2); Carbon Dioxide 21 mmol/L (22-30); Chloride 102 mmol/L (98-107); Glucose 277 mg/dL (74-99); Non-African American GFR(CKD) 74 (>60 ml/min/1.73 sqM); Sodium 134 mmol/L (137-145); Total Bilirubin 3.5 mg/dL (0.2-1.3); Total Protein 9.2 g/dL (6.3-8.2)
--- NOTE | 2023-09-24 21:14 | ED ---
General Adult HPI - General Chief complaint: Fall Stated complaint: Fall Time Seen by Provider: 09/24/23 20:21 Source: patient, EMS, RN notes reviewed, old records reviewed Mode of arrival: EMS Limitations: altered mental status - History of Present Illness Initial comments: Patient is an 83-year-old female who presents emergency department for a fall on blood thinners. Fell from standing. Unknown loss of consciousness. Is on Elliquis. Patient is a history of dementia and this therefore poor historian. Is at her baseline alert and oriented times one per EMS. Denies any pain. Has no other acute complaints at this time. Presents for further evaluation at this time. - Related Data Home Medications Medication Instructions Recorded Confirmed Acetaminophen [Tylenol 8 Hour] 1,300 mg PO HS 08/25/23 09/19/23 Acetaminophen [Tylenol Arthritis] 650 mg PO AC-BRKFST 08/25/23 09/19/23 Apixaban [Eliquis] 5 mg PO AC-BID 08/25/23 09/19/23 Atorvastatin [Lipitor] 40 mg PO AC-BRKFST 08/25/23 09/19/23 Calcium Carbonate [Calcium] 600 mg PO HS 08/25/23 09/19/23 Diclofenac Sodium Gel [Voltaren 1% 1 applic TOPICAL QID PRN 08/25/23 09/19/23 Gel] Dulaglutide [Trulicity] 0.75 mg SQ WE 08/25/23 09/19/23 Escitalopram [Lexapro] 20 mg PO DAILY 08/25/23 09/19/23 Ferrous Sulfate [Iron (65 MG 325 mg PO HS 08/25/23 09/19/23 Elemental)] Insulin Glargine-Yfgn [Semglee 10 units SQ HS 08/25/23 09/19/23 (Yfgn) Pen] Ipratropium-Albuterol Nebulize 3 ml INHALATION RT-QID PRN 08/25/23 09/19/23 [Duoneb 0.5 mg-3 mg/3 ml Soln] Levothyroxine Sodium [Synthroid] 12.5 mcg PO AC-BRKFST 08/25/23 09/19/23 Loperamide HCl [Imodium A-D] 2 mg PO QID PRN 08/25/23 09/19/23 Loratadine 10 mg PO HS 08/25/23 09/19/23 Montelukast [Singulair] 10 mg PO HS 08/25/23 09/19/23 [place]-3/Dha/Epa/Fish Oil [Fish Oil 1 cap PO HS 08/25/23 09/19/23 1,000 mg Softgel] Pantoprazole [Protonix] 40 mg PO AC-BRKFST 08/25/23 09/19/23 Potassium Gluconate 99 mg PO HS 08/25/23 09/19/23 Prevagen 1 tab PO BID 08/25/23 09/19/23 Super B Complex 1 tab PO HS 08/25/23 09/19/23 Tiotropium 2.5 Mcg/Puff [Spiriva 1 puff INHALATION RT-DAILY PRN 08/25/23 09/19/23 Respimat 2.5 Mcg] dilTIAZem HCL [dilTIAZem HCL 24Hr 180 mg PO AC-BRKFST 08/25/23 09/19/23 ER (Xr)] Previous Rx's Medication Instructions Recorded Gabapentin [Neurontin] 300 mg PO TID 3 Days #9 cap 09/22/23 cefUROXime axetiL [Ceftin] 500 mg PO BID 3 Days #6 tab 09/22/23 Allergies Allergy/AdvReac Type Severity Reaction Status Date / Time Penicillins Allergy Rash/Hives Verified 09/24/23 20:12 Review of Systems ROS Statement: Those systems with pertinent positive or pertinent negative responses have been documented in the HPI. Review of Systems: CONST: Denies fever EYES: Denies blurry vision ENT: Denies nasal congestion C/V: Denies Chest pain RESP: Denies shortness of breath GI: Denies abdominal pain : Denies dysuria SKIN: Denies rash. MSK: Denies joint pain. NEURO: Denies headache ROS Other: All systems not noted in ROS Statement are negative. Past Medical History Past Medical History: Atrial Fibrillation, Diabetes Mellitus, Hypertension, Memory Impairment Additional Past Medical History / Comment(s): patient poor historian History of Any Multi-Drug Resistant Organisms: None Reported Past Surgical History: Appendectomy Additional Past Surgical History / Comment(s): patient poor historian Past Anesthesia/Blood Transfusion Reactions: No Reported Reaction Past Psychological History: No Psychological Hx Reported Smoking Status: Never smoker Past Alcohol Use History: None Reported Past Drug Use History: None Reported General Exam - General Exam Comments Initial Comments: General: Appears in no acute distress. HEAD: Left-sided forehead hematoma/contusion. Negative pemberton sign. Negative raccoon eyes. EYES: PERRLA, EOMI, conjunctiva normal, no discharge. Pupils are 3 mm and equal bilaterally. ENT: Hearing grossly intact, normal oropharynx. RESPIRATORY: Clear breath sounds bilaterally. No wheezes, rales, or rhonchi. C/V: Regular rate and rhythm. S1 and S2 auscultated, peripheral pulses 2+ and intact throughout ABD: Abd is soft, nontender, nondistended EXT: Normal range of motion, no obvious deformity. Pelvis is stable. No tenderness palpation of the extremities, spine. SKIN: Contusion/hematoma to the left forehead. NEURO: Alert and oriented 1-2, with baseline of 2-3. Boarderline confusion. G CS of 15. Moving all 4 extremities without issue. No other focal neuro deficits. Limitations: altered mental status Course Vital Signs 09/24/23 09/24/23 09/24/23 20:08 21:06 22:03 Temperature 98.8 F Pulse Rate 85 85 87 Respiratory 18 20 20 Rate Blood Pressure 163/75 174/106 162/90 O2 Sat by Pulse 96 96 Oximetry 09/24/23 09/24/23 09/24/23 22:16 22:21 22:27 Temperature Pulse Rate 92 Respiratory 18 Rate Blood Pressure 146/78 144/78 135/84 O2 Sat by Pulse Oximetry 09/24/23 09/24/23 09/24/23 22:41 22:47 22:54 Temperature Pulse Rate 93 96 95 Respiratory 18 18 18 Rate Blood Pressure 140/79 150/74 143/61 O2 Sat by Pulse 93 L 95 Oximetry 09/24/23 22:58 Temperature Pulse Rate 95 Respiratory 18 Rate Blood Pressure 135/89 O2 Sat by Pulse Oximetry Medical Decision Making - Medical Decision Making Was pt. sent in by a medical professional or institution (, PA, NEWS LIBRARIAN, urgent care, hospital, or senior care...) When possible be specific @ -No Did you speak to anyone other than the patient for history (EMS, parent, family, police, friend...)? What history was obtained from this source @ -No Did you review nursing and triage notes (agree or disagree)? Why? @ -I reviewed and agree with nursing and triage notes Were old charts reviewed (outside hosp., previous admission, EMS record, old EKG, old radiological studies, urgent care reports/EKG's, senior care records)? Report findings @ -Old charts reviewed Differential Diagnosis (chest pain, altered mental status, abdominal pain women, abdominal pain men, vaginal bleeding, weakness, fever, dyspnea, syncope, headache, dizziness, GI bleed, back pain, seizure, CVA, palpatations, mental health, musculoskeletal)? @ -Differential Musculoskeletal Muscular strain, contusion, ligament sprain, fracture, arthritis, septic arthritis, bursitis, cellulitis, muscle spasm, nerve compression, DVT, arterial occlusion, herpes zoster, electrolyte abnormality, tumor.... This is not meant to be in all inclusive list. Cannot rule out intracranial hemorrhage, spine injury, other injuries from the fall. EKG interpreted by me (3pts min.). @ -As above X-rays interpreted by me (1pt min.). @ -Chest x-ray shows no obvious acute cardio pulmonary process. Pelvis x-ray reveals no obvious acute injury. CT interpreted by me (1pt min.). @ -CT imaging remarkable for left-sided subdural hemorrhage, approximate 4 mm thick without much mass effect or midline shift. Discussed with radiology. Remainder the CT imaging is still pending at this time. U/S interpreted by me (1pt. min.). @ -None done What testing was considered but not performed or refused? (CT, X-rays, U/S, labs)? Why? @ -None What meds were considered but not given or refused? Why? @ -None Did you discuss the management of the patient with other professionals (professionals i.e. , PA, NEWS LIBRARIAN, lab, RT, psych nurse, social insurance specialist, manager government, teacher, strategic intelligence officer, family service caseworker)? Give summary @ -Transfer process started at 2140. Awaiting trauma team reply. Spoke with Trauma Dr. Huntley at [phone] who accepted the patient and was in agreement with management and the plan. Spoke with ED physician Dr. Steele who was in agreement with the plan. Was smoking cessation discussed for >3mins.? @ -No Was critical care preformed (if so, how long)? @ -yes, 42 minutes Were there social determinants of health that impacted care today? How? (Homelessness, low income, unemployed, alcoholism, drug addiction, t ransportation, low edu. Level, literacy, decrease access to med. care, custodial, rehab)? @ -No Was there de-escalation of care discussed even if they declined (Discuss DNR or withdrawal of care, Hospice)? DNR status @ -No What co-morbidities impacted this encounter? (DM, HTN, Smoking, COPD, CAD, Cancer, CVA, ARF, Chemo, Hep., AIDS, mental health diagnosis, sleep apnea, morbid obesity)? @ -None Was patient admitted / discharged? Hospital course, mention meds given and route, prescriptions, significant lab abnormalities, going to OR and other pertinent info. @ -Patient's presentation and physical exam, presents for a fall on blood thinners and standing. Unknown LOC. Currently is slightly confused in terms of alert and oriented times 1-2 at this time. Baseline is 2-3 per EMS. He presents for further evaluation. Vital signs within acceptable limits. Patient does not meet criteria for trauma activation. Initially conveyed to me the patient's baseline is alert and oriented 2-3, initial evaluation was alert and oriented 1-2. On initial evaluation, We will obtain CT brain, C-spine as well as chest and pelvis x-ray. Attempts made to maintain cervical collar precautions however patient attempts to remove it. Patient has no pain. Was in agreement with the plan. Apparently discussion was had prior to arrival for possible trauma activation. I agree at this time not to activate, as it does appear that with the patient having baseline is alert and oriented 2-3 she seems to be at that with no focal deficits. We'll continue to monitor. Kcentra ordered for Eliquis reversal. Empiric Keppra administered. Patient remains confused, oriented times one to 2.Patient was started on a Cardene drip with goal blood pressure systolic 140-150. At this time, patient will be transferred to [facility] for further care. Transfer process started at 2140. Awaiting trauma team reply. Spoke with Trauma Dr. Huntley at [phone] who accepted the patient and was in agreement with management and the plan. Spoke with ED physician Dr. Steele who was in agreement with the plan. Multple attempts made to contact patient's guardian and daughter were unsuccessful. Paperwork from nursing facility shows patient is a full code. patient transferred in serious condition. Patient remains confused, however is tolerating oral secretions and maintaining airway. Blood pressure is improving on the Cardene drip. Patient's lab studies reviewed. I was able to update the daughter, Natty who did call back and updated her on the status of the patient.There was a delay in transfer, as was a delay in contacting trauma surgeon Seb Ortiz from the transfer center as well as waiting for EMS to arrive to take the patient. Undiagnosed new problem with uncertain prognosis? @ -No Drug Therapy requiring intensive monitoring for toxicity (Heparin, Nitro, Insulin, Cardizem)? @ -No Were any procedures done? @ -No Diagnosis/symptom? @ -Fall, subdural hemorrhage on Eliquis Acute, or Chronic, or Acute on Chronic? @ -Acute Uncomplicated (without systemic symptoms) or Complicated (systemic symptoms)? @ -Complicated Side effects of treatment? @ -none Exacerbation, Progression, or Severe Exacerbation] @ -no Poses a threat to life or bodily function? @ -Yes - Lab Data Result diagrams: 09/24/23 20:35 09/24/23 20:35 Lab Results 09/24/23 09/24/23 09/24/23 Range/Units 20:35 20:35 20:35 WBC 8.8 (3.8-10.6) k/uL RBC 4.63 (3.80-5.40) m/uL Hgb 13.2 (11.4-16.0) gm/dL Hct 40.5 (34.0-46.0) % MCV 87.5 (80.0-100.0) fL MCH 28.5 (25.0-35.0) pg MCHC 32.6 (31.0-37.0) g/dL RDW 14.9 (11.5-15.5) % Plt Count 180 (150-450) k/uL MPV 11.8 PT (10.0-12.5) sec INR (<1.2) APTT 22.1 (22.0-30.0) sec Sodium 134 L (137-145) mmol/L Potassium (3.5-5.1) mmol/L Chloride 102 (98-107) mmol/L Carbon Dioxide 21 L (22-30) mmol/L Anion Gap 11 mmol/L BUN 20 H (7-17) mg/dL Creatinine 0.75 (0.52-1.04) mg/dL Est GFR (CKD-EPI)AfAm 85 (>60 ml/min/1.73 sqM) Est GFR (CKD-EPI)NonAf 74 (>60 ml/min/1.73 sqM) Glucose 277 H (74-99) mg/dL Calcium 8.3 L (8.4-10.2) mg/dL Total Bilirubin 3.5 H (0.2-1.3) mg/dL AST 144 H (14-36) U/L ALT 30 (4-34) U/L Alkaline Phosphatase 34 L (38-126) U/L Total Protein 9.2 H (6.3-8.2) g/dL Albumin 5.3 H (3.5-5.0) g/dL Urine RBC (0-5) /hpf Urine WBC (0-5) /hpf Urine WBC Clumps (None) /hpf Ur Squamous Epith Cells (0-4) /hpf Urine Bacteria (None) /hpf Urine Mucus (None) /hpf Urine Yeast (Budding) (None) /hpf 09/24/23 09/24/23 Range/Units 20:35 22:58 WBC (3.8-10.6) k/uL RBC (3.80-5.40) m/uL Hgb (11.4-16.0) gm/dL Hct (34.0-46.0) % MCV (80.0-100.0) fL MCH (25.0-35.0) pg MCHC (31.0-37.0) g/dL RDW (11.5-15.5) % Plt Count (150-450) k/uL MPV PT 10.9 (10.0-12.5) sec INR 1.0 (<1.2) APTT (22.0-30.0) sec Sodium (137-145) mmol/L Potassium (3.5-5.1) mmol/L Chloride (98-107) mmol/L Carbon Dioxide (22-30) mmol/L Anion Gap mmol/L BUN (7-17) mg/dL Creatinine (0.52-1.04) mg/dL Est GFR (CKD-EPI)AfAm (>60 ml/min/1.73 sqM) Est GFR (CKD-EPI)NonAf (>60 ml/min/1.73 sqM) Glucose (74-99) mg/dL Calcium (8.4-10.2) mg/dL Total Bilirubin (0.2-1.3) mg/dL AST (14-36) U/L ALT (4-34) U/L Alkaline Phosphatase (38-126) U/L Total Protein (6.3-8.2) g/dL Albumin (3.5-5.0) g/dL Urine RBC 31 H (0-5) /hpf Urine WBC >182 H (0-5) /hpf Urine WBC Clumps Few H (None) /hpf Ur Squamous Epith Cells 3 (0-4) /hpf Urine Bacteria Rare H (None) /hpf Urine Mucus Rare H (None) /hpf Urine Yeast (Budding) Moderate H (None) /hpf - EKG Data -: EKG Interpreted by Me EKG Comments: 12-lead Electrocardiogram Interpretation Note EKG was reviewed and interpreted by myself. 12-lead ECG performed at 2017 is interpreted by me as revealing normal sinus rhythm at a rate of 82 beats per minute. [place] is normal. MD interval 263 ms, QRS duration is 88 ms, QTc is 422 ms.. There were no ST or T wave abnormalities to suggest myocardial ischemia or injury. R wave progression across the precordium was satisfactory. By my interpretation this EKG is non-diagnostic for acute ischemia. Critical Care Time Critical Care Time: Yes Total Critical Care Time: 42 Disposition Clinical Impression: Fall, Intracranial hemorrhage, Subdural hematoma Disposition: OTHER INSTITUTION NOT DEFINED Condition: Serious Referrals: None,Stated [Primary Care Provider] - 1-2 days Time of Disposition: 21:45 - Out of Hospital Transfer - Req. Specs Out of Hospital Transfer - Requested Specifics: Other Emergency Center (Transferred to [facility] for traumatic SDH and eval by neurosurgery.)
[2023-09-24] MEDS ORDERED: MORPHINE SULFATE 2 MG/ML SYRINGE IVP STA (21:21)
[2023-09-24] MEDS ORDERED: Kcentra PER PHARMACY 1 EACH MISC MISCELLANE PRN (21:30)
[2023-09-24] MEDS ORDERED: levETIRAcetam IV 500 MG/5 ML VIAL IVP STA (21:37)
[2023-09-24 21:45] LABS: Partial Thromboplastin Time 22.1 sec (22.0-30.0)
[2023-09-24] MEDS ORDERED: niCARdipine 20 MG in SODIUM CHLORIDE 0.9% 192 ML IV SCH (21:45)
[2023-09-24] MEDS ORDERED: HUMAN PROTHROMBIN COMPLX IV ONE (21:45)
--- NOTE | 2023-09-24 21:59 | CT ---
EXAMINATION TYPE: CT brain cspine wo con CT DLP: combined DLP 1264 mGycm, Automated exposure control for dose reduction was used. DATE OF EXAM: 09/24/2023 9:02 PM COMPARISON: None. CLINICAL INDICATION:Female, 83 years old with history of fall on blood thinners; fall TECHNIQUE: Brain: Multiple axial CT images of the brain were obtained without IV contrast. Cspine: Axial CT images from the skull base to the inferior aspect of T2 we obtained without intraven ous contrast. Coronal and sagittal reformatted images were also reviewed. FINDINGS: Brain: Extra-axial spaces: Extra-axial hemorrhage over the left cerebral convexity measuring up to 4.6 mm in thickness, consistent with subdural hematoma. Relatively mild mass effect on the subjacent brain. Ventricular system: Appear dilated in proportion to the degree of cerebral atrophy. Cerebral parenchyma: No increased attenuation to suggest acute intraparenchymal hemorrhage. The gra y-white matter interface appears maintained. Moderate generalized brain atrophy. Scattered hypoatte nuating areas are seen within the cerebral white matter, nonspecific but most often seen with chronic microvascular ischemic changes; moderate in degree. Cerebellum: Atrophic without acute abnormality. Mass effect: No evidence of midline shift or herniation. Basilar cisterns are patent. Intracranial vasculature: Atherosclerotic calcifications of the larger arteries near the skull base. Soft tissues: Scalp hematoma on the left overlying the frontal bone above the orbit measuring up to 6 mm in thickness. Visualized orbits: Orbital contents appear grossly intact. Calvarium/osseous structures: Some limitation by motion. There is hyperostosis frontalis interna. No acute calvarial fracture is seen. Please also refer to CT facial bones report for further description of findings. Paranasal sinuses and mastoid air cells: Left maxillary mucosal thickening with small superimposed fl uid. Small amount of fluid in the sphenoid sinus. MRI is more sensitive for detecting acute processes such as infarct, and may be considered if clinica lly warranted. Cervical spine: Fracture: None seen. Osseous structures, spinal canal/neural foramina: Generalized osteopenia. Nonspecific small sclerotic focus in T3, could relate to bone island. The craniocervical junction is intact. C1-C2: There are severe degenerative and hypertrophic changes at C1-C2 both at the anterior articulat ion and the lateral articulations bilaterally. There are some small areas of lucency within C2 which are judged likely chronic/degenerative, without an acute fracture identified. Prominent osteophytic s purs from the degenerated lateral articulations cause moderate to severe bilateral foraminal narrowin g, and likely mild/moderate encroachment at the anterolateral aspects of the spinal canal bilaterally . C2-C3: Mild degenerative disc disease but near complete fusion of the facets. Bony spinal canal and n eural foramina appear patent. C3-C4: There is moderate degenerative disc disease and facet arthrosis with mild/moderate narrowing o f the spinal canal and foramina. Mild anterolisthesis of C3 on C4 appears degenerative. C4-C5: There is moderate degenerative disc disease and facet arthrosis with mild/moderate narrowing o f the spinal canal and foramina. Mild anterolisthesis of C4 on C5 appears degenerative. C5-C6: Moderate to severe degenerative disc disease and moderate facet arthrosis. Predominately disc marginal osteophytes cause mild/moderate canal stenosis and moderate to severe bilateral foraminal st enosis. C6-C7: Moderate degenerative disc disease and moderate facet arthrosis. Mild canal and neural foramin al stenoses. C7-T1: Mild degenerative disc disease and mild to moderate bilateral facet arthrosis. Mild anterolist hesis C7 on T1, appears degenerative. Mild canal and neural foraminal stenoses. Minimal degenerative changes of the visualized upper thoracic spine with patent canal and foramina. Vertebral alignment: No traumatic malalignment. Multilevel mild anterolistheses, as above. Neck soft tissues: No acute finding.. Calcifications noted along the arch and at the carotid bifurcat ions. Carotids both course retropharyngeally near the level of the epiglottis, the so-called kissing carotids sign. This should be remembered in case pharyngeal biopsy is ever performed. Other: Lung apices show no acute infiltrate or pneumothorax. Mild pleural thickening and chronic sen escent changes. Visualized ascending aorta appears somewhat ectatic but incompletely seen/assessed. If clinically warranted, C-spine MRI could better assess the spinal canal and contents. IMPRESSION: CT head: 1. Subdural hematoma over the left cerebral convexity measuring up to 4.6 mm in thickness. 2. Relatively mild mass effect on the subjacent brain secondary to #1. No midline shift. 3. Moderate generalized brain atrophy and chronic microvascular ischemic changes. 4. Scalp hematoma over the left frontal bone. No evidence of calvarial fracture. 5. Paranasal sinus disease. CT cervical spine: 1. No acute cervical spine fracture or traumatic malalignment. 2. Osteopenia. Moderate to severe multilevel cervical spondylosis, most pronounced at C1-C2. Please see above for further description. Critical findings communicated by phone to Dr. Salvador Driver MD on 09/24/2023 9:[address] Solomon Hong.
--- NOTE | 2023-09-24 22:08 | CT ---
EXAMINATION TYPE: CT facial bones wo con CT DLP: combined DLP 1264 mGycm, Automated exposure control for dose reduction was used. DATE OF EXAM: 09/24/2023 9:02 PM COMPARISON: . CLINICAL INDICATION:Female, 83 years old with history of fall, pain; PHH, fall TECHNIQUE: Multiple unenhanced axial CT images were obtained of the facial bones soft tissue and bone windows. Coronal, axial and sagittal reformatted images were also provided in soft tissue and bone windows and submitted for interpretation. Additional 3-D reformatted images were obtained on a [employer] workstation. FINDINGS: Generalized osteopenia. No acute fracture seen involving the visualized skull or facial bones. Mucosa l thickening and small amount of fluid in the left maxillary sinus. Small amount of layering fluid in the sphenoid sinuses. Zygomatic arches appear intact. Mandible appears intact. The TMJs are normally positioned and show mi ld/moderate degenerative changes. Orbits appear symmetric and intact. No retrobulbar hematoma. Globes appear intact. There is mild nasal septal deviation towards the right with small bony spur in its midportion. Bilate ral ning bullosa present. Soft tissue narrows the right ostiomeatal complex. The left ostiomeatal c omplex appears wider than the right, this could be postoperative. This is also mildly narrowed by muc osal thickening. Calcifications of the carotid siphons are also seen. Partially seen soft tissue hematoma over the left frontal bone, and left cerebral convexity subdural hematoma; refer to CT head for further description. Severe degenerative changes of the upper cervical spine; refer to CT cervical spine for further description. IMPRESSION: 1. No evidence of acute facial bone fracture. 2. Paranasal sinus disease. Correlate for acute on chronic sinusitis. 3. Other findings as described above.
--- NOTE | 2023-09-24 22:12 | XR ---
EXAM: XR chest 1V portable CLINICAL INDICATION:Female, 83 years old with history of fall, pain; PHH COMPARISON: 2 view chest x-ray 09/19/2023 TECHNIQUE: Chest single view. FINDINGS: Lines/tubes/devices: EKG leads overlie the chest. No indwelling lines are seen. Cardiomediastinum: Cardiac silhouette appears upper limits of normal in size. Partially calcified aortic knob. Vasculature: No increased pulmonary vasculature. Lungs/pleura: Slightly coarsened appearance of the interstitium, similar to previous, likely chronic changes. No ac unga consolidation, sizable effusion, or pneumothorax. Bones/soft tissues: Bony thorax appears grossly unchanged with no clear evidence of acute bony pathology. Regional soft t issues appear unremarkable. IMPRESSION: 1. Borderline mild cardiomegaly and aortic atherosclerosis. 2. No evidence of acute chest process.
[2023-09-24 22:49] VITALS: RESP 18
[2023-09-24] MEDS ORDERED: ONDANSETRON 4 MG/2 ML VIAL IVP STA (23:10)
[2023-09-24 23:11] VITALS: BP 135/89; PULSE 95
[2023-09-24 23:13] LABS: Prothrombin Time 10.9 sec (10.0-12.5)
[2023-09-24 23:33] LABS: Bacteria,Urine Rare /hpf; Budding Yeast,Urine Moderate /hpf; Mucus,Urine Rare /hpf; RBC,Urine 31 /hpf (0-5); Squamous Epithelial Cell,Urine 3 /hpf (0-4); WBC,Urine >182 /hpf (0-5)
[2023-09-24 23:41] LABS: Appearance,Urine Cloudy (Clear); Color,Urine Yellow
[2023-09-24 23:42] LABS: Bilirubin,Urine Negative (Negative); Blood,Urine Trace (Negative); Glucose,Urine (UA) 2+ (Negative); Ketones,Urine Negative (Negative); Leukocyte Esterase,Urine Moderate (Negative); Nitrite,Urine Negative (Negative); PH, Urine 7.5 (5.0-8.0); Protein,Urine Negative (Negative); Specific Gravity,Urine 1.015 (1.001-1.035); Urobilinogen,Urine <2.0 mg/dL (<2.0)
--- NOTE | 2023-09-24 23:59 | XR ---
EXAMINATION TYPE: XR pelvis AP view DATE OF EXAM: 09/24/2023 8:59 PM CLINICAL INDICATION:Female, 83 years old with history of fall; H COMPARISON: None TECHNIQUE: The pelvis was examined in a single frontal projection. FINDINGS: There is no evidence of fracture or dislocation. There is no soft tissue abnormality. No a bnormal calcifications are present. Multilevel degenerative changes of the lower spine. Mild degenerative changes of the SI joints and hips. IMPRESSION: No acute fracture or dislocation identified, on this single view of the pelvis.
[2023-09-25 03:07] LABS: Anisocytosis (M) Present; Large Platelets Present
== END 2023-09-24 23:25 | disposition other institution (70) ==
LOC: EC 20:06
DX: S06.5XAA Traumatic subdural hemorrhage with loss of consciousness status unknown, initial encounter (principal); S00.83XA Contusion of other part of head, initial encounter; E11.9 Type 2 diabetes mellitus without complications; I10 Essential (primary) hypertension; I48.91 Unspecified atrial fibrillation; F03.90 Unspecified dementia, unspecified severity, without behavioral disturbance, psychotic disturbance, mood disturbance, and anxiety; Z79.01 Long term (current) use of anticoagulants; Z79.85 Long-term (current) use of injectable non-insulin antidiabetic drugs; Z79.4 Long term (current) use of insulin; Z79.899 Other long term (current) drug therapy; Z88.0 Allergy status to penicillin; W18.30XA Fall on same level, unspecified, initial encounter
CPT/HCPCS: 99291; 96365; 96375 ×4; 96361; 36415; 93005; 51701; 80053; 85025; 85610; 85730; 81001; 72170; 71045; 72125; 70486; 70450; J2405; J2270; J1953; J7168

== ENCOUNTER → 2023-10-07 | Outpatient (CLI) | payer MEDICARE ==
--- NOTE | 2023-10-07 13:14 | CT ---
EXAMINATION TYPE: CT brain wo con CT DLP: 1207 mGycm, Automated exposure control for dose reduction was used. DATE OF EXAM: 10/07/2023 9:28 AM COMPARISON: 09/24/2023.. CLINICAL INDICATION:Female, 83 years old with history of I62.00 subdural hemorrhage, TECHNIQUE: Brain: Axial CT images of the brain were obtained with coronal and sagittal reformats created and rev iewed. Contrast used: None. Oral contrast used: None. FINDINGS: Brain: Extra-axial spaces: Persistent left subdural hemorrhage as which is mixed attenuation suggesting acut e on chronic hemorrhage. This now measuring up to 7/8 mm in thickness with some high density blood pr oducts. Ventricular system: Within normal limits Cerebral parenchyma: No acute intraparenchymal hemorrhage or mass effect. The arroyo-white junction is well differentiated. Scattered hypoattenuating areas are seen within the white matter. Cerebellum: Unremarkable. Mass effect: Minimal rightward shift up to 4 mm. Intracranial vasculature: Atherosclerotic calcifications of the intracranial vessels. Soft tissues: Reduction in left frontal scalp hematoma. Calvarium/osseous structures: No depressed skull fracture. Paranasal sinuses and mastoid air cells: Mild scattered paranasal sinus disease. Visualized orbits: Orbital contents are intact. IMPRESSION: 1. 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 Mild rightward subfalcine shift up to 4 mm. Continued carranza rveillance recommended. 2. Nonspecific white matter changes. No evidence for acute/subacute CVA.
== END | disposition home or self-care (01) ==
LOC: RADCTMAIN 08:17
PROVIDERS: ATTEND Family Medicine
DX: G93.89 Other specified disorders of brain (principal); I62.01 Nontraumatic acute subdural hemorrhage; I62.02 Nontraumatic subacute subdural hemorrhage
CPT/HCPCS: 70450

== ENCOUNTER 2023-10-22 21:07 | Inpatient (IN) | payer MEDICARE ==
--- NOTE | 2023-10-22 21:38 | ED ---
SOB HPI - General Chief Complaint: Shortness of Breath Stated Complaint: Difficulty Breathing Time Seen by Provider: 10/22/23 21:19 Source: EMS, RN notes reviewed, old records reviewed Mode of arrival: EMS Limitations: no limitations - History of Present Illness Initial Comments: This is a 83-year-old female to the emergency department for evaluation today. She presents today for evaluation regards to cough congestion and wheezing shortness of breath elevated heart rate weakness and not feeling well. Significant shortness breath and difficulty breathing without chest pain. MD Complaint: shortness of breath, cough -: days(s) Severity: severe Severity scale (1-10): 8 Quality: aching Consistency: constant Improves With: nothing Worsens With: nothing Known History Of: COPD, asthma Context: recent URI, recent illness Associated Symptoms: denies other symptoms - Related Data Home Medications Medication Instructions Recorded Confirmed Acetaminophen [Tylenol 8 Hour] 1,300 mg PO HS 08/25/23 10/23/23 Acetaminophen [Tylenol Arthritis] 650 mg PO AC-BRKFST 08/25/23 10/23/23 Apixaban [Eliquis] 5 mg PO AC-BID 08/25/23 10/23/23 Atorvastatin [Lipitor] 40 mg PO AC-BRKFST 08/25/23 10/23/23 Calcium Carbonate [Calcium] 600 mg PO HS 08/25/23 10/23/23 Diclofenac Sodium Gel [Voltaren 1% 1 applic TOPICAL QID PRN 08/25/23 10/23/23 Gel] Dulaglutide [Trulicity] 0.75 mg SQ WE 08/25/23 10/23/23 Escitalopram [Lexapro] 20 mg PO DAILY 08/25/23 10/23/23 Ferrous Sulfate [Iron (65 MG 325 mg PO HS 08/25/23 10/23/23 Elemental)] Insulin Glargine-Yfgn [Semglee 10 units SQ HS 08/25/23 10/23/23 (Yfgn) Pen] Ipratropium-Albuterol Nebulize 3 ml INHALATION RT-QID PRN 08/25/23 10/23/23 [Duoneb 0.5 mg-3 mg/3 ml Soln] Levothyroxine Sodium [Synthroid] 12.5 mcg PO AC-BRKFST 08/25/23 10/23/23 Loperamide HCl [Imodium A-D] 2 mg PO QID PRN 08/25/23 10/23/23 Loratadine 10 mg PO HS 08/25/23 10/23/23 Montelukast [Singulair] 10 mg PO HS 08/25/23 10/23/23 [place]-3/Dha/Epa/Fish Oil [Fish Oil 1 cap PO HS 08/25/23 10/23/23 1,000 mg Softgel] Pantoprazole [Protonix] 40 mg PO AC-BRKFST 08/25/23 10/23/23 Potassium Gluconate 99 mg PO HS 08/25/23 10/23/23 Prevagen 1 tab PO BID 08/25/23 10/23/23 Super B Complex 1 tab PO HS 08/25/23 10/23/23 Tiotropium 2.5 Mcg/Puff [Spiriva 1 puff INHALATION RT-DAILY PRN 08/25/23 10/23/23 Respimat 2.5 Mcg] dilTIAZem HCL [dilTIAZem HCL 24Hr 180 mg PO AC-BRKFST 08/25/23 10/23/23 ER (Xr)] Previous Rx's Medication Instructions Recorded Gabapentin [Neurontin] 300 mg PO TID 3 Days #9 cap 09/22/23 Budesonide-Formot 160-4.5 Mcg 2 puff INHALATION RT-BID #1 each 10/28/23 [Symbicort 160-4.5 Mcg Inhaler] Losartan [Cozaar] 50 mg PO DAILY #30 tab 10/28/23 predniSONE 0 mg PO DIRECTED 8 Days #15 tab 10/28/23 Allergies Allergy/AdvReac Type Severity Reaction Status Date / Time Penicillins Allergy Rash/Hives Verified 10/23/23 13:40 Review of Systems ROS Statement: Those systems with pertinent positive or pertinent negative responses have been documented in the HPI. ROS Other: All systems not noted in ROS Statement are negative. Past Medical History Past Medical History: Atrial Fibrillation, Diabetes Mellitus, Hypertension, Memory Impairment Additional Past Medical History / Comment(s): patient poor historian History of Any Multi-Drug Resistant Organisms: None Reported Past Surgical History: Appendectomy Additional Past Surgical History / Comment(s): patient poor historian Past Anesthesia/Blood Transfusion Reactions: No Reported Reaction Past Psychological History: No Psychological Hx Reported Smoking Status: Never smoker Past Alcohol Use History: None Reported Past Drug Use History: None Reported General Exam Limitations: no limitations General appearance: alert, in no apparent distress, anxious Head exam: Present: atraumatic, normocephalic, normal inspection Eye exam: Present: normal appearance, PERRL, EOMI. Absent: scleral icterus, conjunctival injection, periorbital swelling ENT exam: Present: normal exam, mucous membranes moist Neck exam: Present: normal inspection. Absent: tenderness, meningismus, lymphadenopathy Respiratory exam: Present: normal lung sounds bilaterally. Absent: respiratory distress, wheezes, rales, rhonchi, stridor Cardiovascular Exam: Present: tachycardia, irregular rhythm, normal heart maddi nds. Absent: systolic murmur, diastolic murmur, rubs, gallop, clicks GI/Abdominal exam: Present: soft, normal bowel sounds. Absent: distended, tenderness, guarding, rebound, rigid Extremities exam: Present: normal inspection, full ROM, normal capillary refill. Absent: tenderness, pedal edema, joint swelling, calf tenderness Back exam: Present: normal inspection Neurological exam: Present: alert, oriented X3, CN II-XII intact Psychiatric exam: Present: normal affect, normal mood Skin exam: Present: warm, dry, intact, normal color. Absent: rash Course Vital Signs 10/22/23 10/22/23 10/22/23 21:12 22:40 22:49 Temperature 98.0 F Pulse Rate 61 78 82 Pulse Rate [ Sap Solution Manager Consultant ] Respiratory 24 Rate Blood Pressure 144/74 Blood Pressure [Right Arm] O2 Sat by Pulse 96 Oximetry 10/22/23 10/23/23 10/23/23 23:15 00:18 01:36 Temperature Pulse Rate 116 H 113 H 105 H Pulse Rate [ Sap Solution Manager Consultant ] Respiratory 18 24 17 Rate Blood Pressure 139/96 176/78 138/67 Blood Pressure [Right Arm] O2 Sat by Pulse 96 94 L 94 L Oximetry 10/23/23 10/23/23 10/23/23 02:34 04:29 05:18 Temperature Pulse Rate 103 H 98 92 Pulse Rate [ Sap Solution Manager Consultant ] Respiratory 20 20 24 Rate Blood Pressure 127/75 143/78 140/73 Blood Pressure [Right Arm] O2 Sat by Pulse 93 L 95 94 L Oximetry 01/07/24 01/07/24 01/07/24 06:13 08:25 12:34 Temperature 97.8 F 97.9 F Pulse Rate 91 99 99 Pulse Rate [ Sap Solution Manager Consultant ] Respiratory 24 22 18 Rate Blood Pressure 138/76 141/84 169/88 Blood Pressure [Right Arm] O2 Sat by Pulse 93 L 98 96 Oximetry 10/23/23 10/23/23 10/23/23 13:47 14:10 14:22 Temperature Pulse Rate 989 H 99 94 Pulse Rate [ Sap Solution Manager Consultant ] Respiratory 18 18 Rate Blood Pressure 148/86 127/115 Blood Pressure [Right Arm] O2 Sat by Pulse 95 95 Oximetry 10/23/23 10/23/23 10/23/23 14:32 16:09 17:14 Temperature 98.0 F Pulse Rate 101 H 100 101 H Pulse Rate [ Sap Solution Manager Consultant ] Respiratory 18 18 Rate Blood Pressure 140/64 152/86 Blood Pressure [Right Arm] O2 Sat by Pulse 97 98 Oximetry 10/23/23 10/23/23 10/23/23 19:46 19:54 20:30 Temperature Pulse Rate 99 101 H 111 H Pulse Rate [ Sap Solution Manager Consultant ] Respiratory 20 Rate Blood Pressure 135/76 Blood Pressure [Right Arm] O2 Sat by Pulse 95 Oximetry 10/23/23 10/23/23 10/24/23 21:42 23:00 04:00 Temperature 98.1 F Pulse Rate 112 H 112 H 97 Pulse Rate [ Sap Solution Manager Consultant ] Respiratory 16 18 Rate Blood Pressure 143/76 126/80 Blood Pressure [Right Arm] O2 Sat by Pulse 96 95 Oximetry 10/24/23 10/24/23 10/24/23 06:00 08:30 09:31 Temperature 98.3 F Pulse Rate 96 95 Pulse Rate [ 95 Sap Solution Manager Consultant ] Respiratory 16 Rate Blood Pressure 139/76 Blood Pressure 153/91 [Right Arm] O2 Sat by Pulse 95 95 Oximetry 10/24/23 10/24/23 10/24/23 09:40 12:00 12:10 Temperature 97.9 F 98.1 F Pulse Rate 101 H 107 H Pulse Rate [ Sap Solution Manager Consultant ] Respiratory 22 22 Rate Blood Pressure 138/106 Blood Pressure 114/65 [Right Arm] O2 Sat by Pulse 98 97 Oximetry 10/24/23 10/24/23 10/24/23 12:19 12:26 15:35 Temperature Pulse Rate 111 H 105 H 95 Pulse Rate [ Sap Solution Manager Consultant ] Respiratory Rate Blood Pressure Blood Pressure [Right Arm] O2 Sat by Pulse Oximetry 10/24/23 15:43 Temperature Pulse Rate 101 H Pulse Rate [ Sap Solution Manager Consultant ] Respiratory Rate Blood Pressure Blood Pressure [Right Arm] O2 Sat by Pulse Oximetry - Reevaluation(s) Reevaluation #1: 10/22/23 23:08 Records reviewed Reevaluation #2: 10/22/23 23:09 Patient symptoms are relatively unchanged still short of breath Reevaluation #3: 10/22/23 23:09 Patient informed results and questions answered Reevaluation #4: 10/22/23 22:12 Was pt. sent in by a medical professional or institution (, [facility], INTERNAL MEDICINE NURSE PRACTITIONER, urgent care, hospital, or group home...) When possible be specific @ -no Did you speak to anyone other than the patient for history (EMS, parent, family, police, friend...)? What history was obtained from this source @ -no Did you review nursing and triage notes (agree or disagree)? Why? @ -agree Are old charts reviewed (outside hosp., previous admission, EMS record, old EKG, old radiological studies, urgent care reports/EKG's, group home records)? Report findings @ -yes Differential Diagnosis (chest pain, altered mental status, abdominal pain women, abdominal pain men, vaginal bleeding, weakness, fever, dyspnea, syncope, headache, dizziness, GI bleed, back pain, seizure, CVA, palpatations, mental health, musculoskeletal)? @ -prior EKG interpreted by me (3pts min.). @ -yes X-rays interpreted by me (1pt min.). @ -yes positive for pneumonia CT interpreted by me (1pt min.). @ -no U/S interpreted by me (1pt. min.). @ -no What testing was considered but not performed or refused? (CT, X-rays, U/S, labs)? Why? @ -none What meds were considered but not given or refused? Why? @ -none Did you discuss the management of the patient with other professionals (professionals i.e. [facility] [place], INTERNAL MEDICINE NURSE PRACTITIONER, lab, RT, psych nurse, sr. social media & mobile manager, mechanic welder truck driver, teacher, customs officer, nurse outreach case manager)? Give summary @ -no Was smoking cessation discussed for >3mins.? @ -no Was critical care preformed (if so, how long)? @ -no Were there social determinants of health that impacted care today? How? (Homelessness, low income, unemployed, alcoholism, drug addiction, transpor tation, low edu. Level, literacy, decrease access to med. care, detention, rehab)? @ -none Was there de-escalation of care discussed even if they declined (Discuss DNR or withdrawal of care, Hospice)? DNR status @ -no What co-morbidities impacted this encounter? (DM, HTN, Smoking, COPD, CAD, Cancer, CVA, ARF, Chemo, Hep., AIDS, mental health diagnosis, sleep apnea, morbid obesity)? @ -none Was patient admitted / discharged? Hospital course, mention meds given and route, prescriptions, significant lab abnormalities, going to OR and other pertinent info. @ - 83 female to the emergency department for evaluation of cough congestion wheezing A. fib with RVR and probably underlying pneumonia. Be admitted for further supportive care Admitted Undiagnosed new problem with uncertain prognosis? @ -no Drug Therapy requiring intensive monitoring for toxicity (Heparin, Nitro, Insulin, Cardizem)? @ -no Were any procedures done? @ -no Diagnosis/symptom? @ -AfibRVR,Weakness,Pneumonia,Weak Acute, or Chronic, or Acute on Chronic? @ -Acute Uncomplicated (without systemic symptoms) or Complicated (systemic symptoms)? @ -Complicated Side effects of treatment? @ -no Exacerbation, Progression, or Severe Exacerbation? @ -exacerbation Poses a threat to life or bodily function? How? (Chest pain, USA, MD, pneumonia, PE, COPD, DKA, ARF, appy, cholecystitis, CVA, Diverticulitis, Homicidal, Suicidal, threat to staff... and all critical care pts) @ -yes significant extremities anxiety Reevaluation #5: 10/22/23 23:09 Differential Dyspnea: Coronary syndrome, arrhythmia, tamponade, asthma, COPD, pulmonary embolism, pneumonia, pneumothorax, pulmonary effusion, anaphylaxis, diabetic ketoacidosis, flailed chest, pulmonary contusion, diaphragmatic rupture, anemia, neuromuscular, this is not meant to be an all-inclusive list. Differential Palpitations Ventricular arrhythmias, atrial arrhythmias, myocardial infarction, anemia, thyrotoxicosis, electrolyte imbalance, hypokalemia, pulmonary embolism, pulmonary disease, drugs, alcohol, anxiety, stress.... This is not meant to be an all-inclusive list. - Consultations Consultation #1: Spoke with [facility] was okay to admit this patient Medical Decision Making - Medical Decision Making 83 female to the emergency department for evaluation of cough congestion wheezing A. fib with RVR and probably underlying pneumonia. Be admitted for further supportive care - Lab Data Result diagrams: 10/28/23 07:13 10/28/23 07:13 Lab Results 10/22/23 10/22/23 10/22/23 Range/Units 21:29 21:29 21:29 WBC 3.6 L (3.8-10.6) k/uL RBC 4.07 (3.80-5.40) m/uL Hgb 11.9 (11.4-16.0) gm/dL Hct 35.6 (34.0-46.0) % MCV 87.4 (80.0-100.0) fL MCH 29.3 (25.0-35.0) pg MCHC 33.5 (31.0-37.0) g/dL RDW 14.3 (11.5-15.5) % Plt Count 154 (150-450) k/uL MPV 8.6 Neutrophils % 52 % Lymphocytes % 34 % Monocytes % 9 % Eosinophils % 2 % Basophils % 1 % Neutrophils # 1.8 (1.3-7.7) k/uL Lymphocytes # 1.2 (1.0-4.8) k/uL Monocytes # 0.3 (0-1.0) k/uL Eosinophils # 0.1 (0-0.7) k/uL Basophils # 0.0 (0-0.2) k/uL PT 10.4 (10.0-12.5) sec INR 0.9 (<1.2) APTT 26.2 (22.0-30.0) sec Sodium 132 L (137-145) mmol/L Potassium 3.6 (3.5-5.1) mmol/L Chloride 100 (98-107) mmol/L Carbon Dioxide 20 L (22-30) mmol/L Anion Gap 12 mmol/L BUN 7 (7-17) mg/dL Creatinine 0.55 (0.52-1.04) mg/dL Est GFR (CKD-EPI)AfAm >90 (>60 ml/min/1.73 sqM) Est GFR (CKD-EPI)NonAf 87 (>60 ml/min/1.73 sqM) Glucose 245 H (74-99) mg/dL Lactic Ac Sepsis Rflx Plasma Lactic Acid Victor Hugo (0.7-2.0) mmol/L Calcium 8.0 L (8.4-10.2) mg/dL Phosphorus 4.1 (2.5-4.5) mg/dL Magnesium 1.6 (1.6-2.3) mg/dL Total Bilirubin 0.5 (0.2-1.3) mg/dL AST 29 (14-36) U/L ALT 19 (4-34) U/L Alkaline Phosphatase 96 (38-126) U/L Troponin I (0.000-0.034) ng/mL NT-Pro-B Natriuret Pep 70 pg/mL Total Protein 6.0 L (6.3-8.2) g/dL Albumin 3.1 L (3.5-5.0) g/dL SARS-CoV-2 (PCR) (Not Detectd) 10/22/23 10/22/23 10/22/23 Range/Units 21:29 21:29 22:02 WBC (3.8-10.6) k/uL RBC (3.80-5.40) m/uL Hgb (11.4-16.0) gm/dL Hct (34.0-46.0) % MCV (80.0-100.0) fL MCH (25.0-35.0) pg MCHC (31.0-37.0) g/dL RDW (11.5-15.5) % Plt Count (150-450) k/uL MPV Neutrophils % % Lymphocytes % % Monocytes % % Eosinophils % % Basophils % % Neutrophils # (1.3-7.7) k/uL Lymphocytes # (1.0-4.8) k/uL Monocytes # (0-1.0) k/uL Eosinophils # (0-0.7) k/uL Basophils # (0-0.2) k/uL PT (10.0-12.5) sec INR (<1.2) APTT (22.0-30.0) sec Sodium (137-145) mmol/L Potassium (3.5-5.1) mmol/L Chloride (98-107) mmol/L Carbon Dioxide (22-30) mmol/L Anion Gap mmol/L BUN (7-17) mg/dL Creatinine (0.52-1.04) mg/dL Est GFR (CKD-EPI)AfAm (>60 ml/min/1.73 sqM) Est GFR (CKD-EPI)NonAf (>60 ml/min/1.73 sqM) Glucose (74-99) mg/dL Lactic Ac Sepsis Rflx Plasma Lactic Acid Victor [place] 2.9 H* (0.7-2.0) mmol/L Calcium (8.4-10.2) mg/dL Phosphorus (2.5-4.5) mg/dL Magnesium (1.6-2.3) mg/dL Total Bilirubin (0.2-1.3) mg/dL AST (14-36) U/L ALT (4-34) U/L Alkaline Phosphatase (38-126) U/L Troponin I <0.012 (0.000-0.034) ng/mL NT-Pro-B Natriuret Pep pg/mL Total Protein (6.3-8.2) g/dL Albumin (3.5-5.0) g/dL SARS-CoV-2 (PCR) Not Detected (Not Detectd) 10/22/23 Range/Units 22:09 WBC (3.8-10.6) k/uL RBC (3.80-5.40) m/uL Hgb (11.4-16.0) gm/dL Hct (34.0-46.0) % MCV (80.0-100.0) fL MCH (25.0-35.0) pg MCHC (31.0-37.0) g/dL RDW (11.5-15.5) % Plt Count (150-450) k/uL MPV Neutrophils % % Lymphocytes % % Monocytes % % Eosinophils % % Basophils % % Neutrophils # (1.3-7.7) k/uL Lymphocytes # (1.0-4.8) k/uL Monocytes # (0-1.0) k/uL Eosinophils # (0-0.7) k/uL Basophils # (0-0.2) k/uL PT (10.0-12.5) sec INR (<1.2) APTT (22.0-30.0) sec Sodium (137-145) mmol/L Potassium (3.5-5.1) mmol/L Chloride (98-107) mmol/L Carbon Dioxide (22-30) mmol/L Anion Gap mmol/L BUN (7-17) mg/dL Creatinine (0.52-1.04) mg/dL Est GFR (CKD-EPI)AfAm (>60 ml/min/1.73 sqM) Est GFR (CKD-EPI)NonAf (>60 ml/min/1.73 sqM) Glucose (74-99) mg/dL Lactic Ac Sepsis Rflx Y Plasma Lactic Acid [place] (0.7-2.0) mmol/L Calcium (8.4-10.2) mg/dL Phosphorus (2.5-4.5) mg/dL Magnesium (1.6-2.3) mg/dL Total Bilirubin (0.2-1.3) mg/dL AST (14-36) U/L ALT (4-34) U/L Alkaline Phosphatase (38-126) U/L Troponin I (0.000-0.034) ng/mL NT-Pro-B Natriuret Pep pg/mL Total Protein (6.3-8.2) g/dL Albumin (3.5-5.0) g/dL SARS-CoV-2 (PCR) (Not Detectd) - EKG Data -: EKG Interpreted by Me (EKG is atrial fibrillation with RVR 112 QRS 85 QTC 385) - Radiology Data Radiology results: report reviewed (Chest x-ray does have symptoms for bronchiolitis versus pneumonia), image reviewed Disposition Clinical Impression: Community acquired pneumonia, Weakness, Atrial fibrillation with rapid ventricular response, Bronchiolitis Disposition: ADMITTED IP TO THIS HOSP Condition: Fair Is patient prescribed a controlled substance at d/c from ED?: No Time of Disposition: 23:00
--- NOTE | 2023-10-22 21:50 | XR ---
EXAMINATION TYPE: XR chest 1V portable DATE OF EXAM: 10/22/2023 Comparison: 09/24/2023 Clinical History: 83 year-old female shortness of breath Findings: Heart normal size. Relative upper lung lucencies. Mild interstitial prominence persists. No consolida tion or pleural effusion. Loss of the subacromial space on both sides. Suture anchors left humeral he ad. Impression: 1. COPD. Either a prominent component of chronic bronchitis versus superimposed acute bronchitis. Cli nically correlate. No focal infiltrate seen. 2. Chronic full-thickness rotator cuff tears on both sides, re-tear on the left.
[2023-10-22 21:52] LABS: Basophils % (A) 1 %; Eosinophils # (A) 0.1 k/uL (0-0.7); Eosinophils % (A) 2 %; HCT 35.6 % (34.0-46.0); HGB 11.9 gm/dL (11.4-16.0); Lymphocytes # (A) 1.2 k/uL (1.0-4.8); Lymphocytes % (A) 34 %; MCH 29.3 pg (25.0-35.0); MCHC 33.5 g/dL (31.0-37.0); MCV 87.4 fL (80.0-100.0); Mean Platelet Volume 8.6; Monocytes # (A) 0.3 k/uL (0-1.0); Monocytes % (A) 9 %; Neutrophils # (A) 1.8 k/uL (1.3-7.7); Neutrophils % (A) 52 %; Platelet Count 154 k/uL (150-450); RBC 4.07 m/uL (3.80-5.40); RDW 14.3 % (11.5-15.5); WBC 3.6 k/uL (3.8-10.6)
[2023-10-22 22:07] LABS: ALT 19 U/L (4-34); AST 29 U/L (14-36); African American GFR (CKD) >90 (>60 ml/min/1.73 sqM); Albumin 3.1 g/dL (3.5-5.0); Alkaline Phosphatase 96 U/L (38-126); Anion Gap 12 mmol/L; Blood Urea Nitrogen 7 mg/dL (7-17); Carbon Dioxide 20 mmol/L (22-30); Chloride 100 mmol/L (98-107); Glucose 245 mg/dL (74-99); INR 0.9 (<1.2); Magnesium 1.6 mg/dL (1.6-2.3); Non-African American GFR(CKD) 87 (>60 ml/min/1.73 sqM); Partial Thromboplastin Time 26.2 sec (22.0-30.0); Phosphorus 4.1 mg/dL (2.5-4.5); Potassium 3.6 mmol/L (3.5-5.1); Prothrombin Time 10.4 sec (10.0-12.5); Sodium 132 mmol/L (137-145); Total Bilirubin 0.5 mg/dL (0.2-1.3)
[2023-10-22 22:13] LABS: NT-Pro-B-Type Natriuretic Pept 70 pg/mL
[2023-10-22] MEDS ORDERED: SODIUM CHLORIDE 0.9% 1,000 ML IV STA ×2 (22:16)
[2023-10-22] MEDS ORDERED: MAGNESIUM OXIDE 400 MG TAB PO STA (22:16)
[2023-10-22] MEDS ORDERED: IPRATROPIUM-ALBUTEROL 3 ML NEB INHALATION STA (22:16)
[2023-10-22] MEDS ORDERED: DEXAMETHASONE SOD PHOSPHATE 10 MG/ML 1 ML VIAL IVP STA (22:16)
[2023-10-22] MEDS ORDERED: MAGNESIUM SULFATE-D5W PMX 1 GM in DEXTROSE/WATER 1 100ML.BAG IVPB STA (22:16)
[2023-10-22] MEDS ORDERED: PNEUMONIA PROTOCOL UTILIZED 1 EACH MISC PO PRN (22:52)
[2023-10-22] MEDS ORDERED: AZITHROMYCIN 500 MG in SODIUM CHLORIDE 0.9% 250 ML IVPB STA (22:57)
[2023-10-22] MEDS ORDERED: DILTIAZEM DRIP BOLUS FROM BAG 1 MG SOLN IV ONE (23:08)
[2023-10-22] MEDS ORDERED: DILTIAZEM 125 MG in SODIUM CHLORIDE 0.9% 100 ML IV SCH (23:30)
[2023-10-23] MEDS: SODIUM CHLORIDE 0.9% 1,000 ML IV SCH ×4 (00:11→20:17)
[2023-10-23 05:47] LABS: Glucose,Whole Blood 274 mg/dL (70-110)
[2023-10-23 08:26] LABS: Glucose,Whole Blood 290 mg/dL (70-110)
[2023-10-23] MEDS ORDERED: ONDANSETRON 4 MG/2 ML VIAL IVP PRN (08:56)
[2023-10-23] MEDS ORDERED: DEXTROSE 50% SYRINGE 50 ML IVP PRN ×2 (08:56)
[2023-10-23] MEDS ORDERED: ACETAMINOPHEN TAB 325 MG TAB PO PRN (08:56)
[2023-10-23] MEDS ORDERED: NON FORMULARY DRUG (Tiotropium 2.5 Mcg/Puff 10 PUFF Each) INHALATION PRN (08:57)
[2023-10-23] MEDS ORDERED: DILTIAZEM CD 180 MG CAP.ER.24H PO SCH (09:00)
[2023-10-23] MEDS ORDERED: PANTOPRAZOLE 40 MG TABLET PO SCH (09:00)
--- NOTE | 2023-10-23 09:07 | XR ---
EXAMINATION TYPE: XR chest 1V portable DATE OF EXAM: 10/23/2023 Comparison: 10/22/2023 Clinical History: 83-year-old female pneumonia Findings: Heart borderline enlarged. Low lung volumes. Patchy opacity periphery of the lower lungs on both side s. No sizable pleural effusion seen. Loss of the subacromial space right shoulder compatible with chr onic full-thickness rotator cuff tear. Impression: Limited by hypoventilatory changes. There is some patchy peripheral basilar opacities. Unable to excl ude developing infiltrates.
[2023-10-23] MEDS: APIXABAN 5 MG TAB PO SCH ×2 (09:27→20:24)
[2023-10-23] MEDS: ATORVASTATIN 40 MG TAB PO SCH (09:27)
[2023-10-23] MEDS: LEVOTHYROXINE 25 MCG TAB PO SCH (09:27)
[2023-10-23 10:32] LABS: African American GFR (CKD) >90 (>60 ml/min/1.73 sqM); Anion Gap 16 mmol/L; Blood Urea Nitrogen 7 mg/dL (7-17); Calcium 8.1 mg/dL (8.4-10.2); Carbon Dioxide 16 mmol/L (22-30); Chloride 106 mmol/L (98-107); Glucose 327 mg/dL (74-99); Non-African American GFR(CKD) >90 (>60 ml/min/1.73 sqM); Potassium 4.6 mmol/L (3.5-5.1); Sodium 138 mmol/L (137-145)
[2023-10-23 11:39] LABS: Glucose,Whole Blood 294 mg/dL (70-110)
[2023-10-23] MEDS: INSULIN ASPART (NovoLOG) 100 UNIT/ML VIAL SQ SCH ×3 (12:30→20:51)
--- NOTE | 2023-10-23 13:15 | P.CRDCN ---
History of Present Illness Consult date: 10/23/23 Consult reason: atrial fibrillation History of present illness: This is Senthil Kearney NP, I'm dictating on behalf of Dr. Marin's H&P and A&P The patient was interviewed and examined. HPI: Patient is a pleasant 83-year-old female who presented to the hospital with complaints of shortness of breath, cough, congestion, weakness, and heart flu ttering. Pertinent past medical history includes atrial fibrillation, diabetes, hypertension, and memory impairment. Patient states that she was having shortness of breath at home. She was also having a cough with chest congestion and overall not feeling good. She presented to the ER for evaluation. Upon arrival the patient was found to be in atrial fibrillation with rapid ventricular response. She was started on a Cardizem drip, and quickly converted to normal sinus rhythm. Chest x-ray completed in the emergency department was not necessarily indicative of pneumonia, but was suspicious for bronchitis. X- ray that was completed again today does begin to show possible patchy peripheral basilar opacities which could be developing infiltrates consistent with pneumonia. Patient on the monitor at this time is normal sinus rhythm. She is otherwise denying chest pain, heart palpitations, dizziness, and near syncopal symptoms. ROS: [No fever, chills, or rigors] [Positive for cough, phlegm, and expectoration] [no nausea, vomiting, or diarrhea] [no hematuria, dysuria] [no musculoskelatal complaints] [no strokes or seizures] [no skin lesions] EXAMINATION: GENERAL: Well-appearing, well-nourished and in no acute distress. NECK: Supple without JVD or thyromegaly. LUNGS: Breath sounds demonstrate rhonchi throughout all lung [place]. Respiration equal and unlabored. No wheezes, rales. HEART: Regular rate and rhythm without murmurs, rubs or gallops. S1 and S2 heard. EXTREMITIES: Normal range of motion, no edema. No clubbing or cyanosis. Peripheral pulses intact and strong. REVIEW OF LABS, ECG & MEDICAL DATA: LABS: White count 3.6, hemoglobin 11.9, platelet is 154, sodium 138, potassium 4.6, BUN 7, creatinine 0.49, lactic acid 5.6, calcium 8.1, magnesium 1.6, troponin less than 0.012, BNP 70, TSH 0.531 EKG: EKG dated 10/22/2023 shows atrial fibrillation with rapid ventricular response. EKG dated 10/23/2023 shows normal sinus rhythm with sinus arrhythmia. IMAGING: Chest x-ray dated 10/22/2023 demonstrates COPD, either a prominent component of chronic bronchitis versus superimposed acute bronchitis, clinically correlate, no focal infiltrates seen, chronic full-thickness rotator cuff tears on both sides, re-tear on the left. Chest x-ray dated 10/23/2023 demonstrates limited by hypoventilatory changes, there is some patchy peripheral basilar opacities, unable to exclude developing infiltrates. VITALS: Temp 97.8, pulse 91, respirations 24, blood pressure 138/76, O2 saturation 93% on room air IMPRESSION: 1. Atrial fibrillation with rapid ventricular response 2. Bronchitis versus pneumonia 3. Diabetes 4. Hypertension PLAN: Restart home medications including diltiazem 180 mg daily, atorvastatin 40 mg daily, and apixaban 5 mg twice a day. Atrial fibrillation appears to be resolved at this time. Continue patient on her previous he prescribed home medications. Monitor on telemetry. No other medication adjustments recommended at this time. Further recommendations based on patient's clinical course. Thank you for the consult and allowing us to participate in the care of this patient. Past Medical History Past Medical History: Atrial Fibrillation, Diabetes Mellitus, Hypertension, Memory Impairment Additional Past Medical History / Comment(s): patient poor historian History of Any Multi-Drug Resistant Organisms: None Reported Past Surgical History: Appendectomy Additional Past Surgical History / Comment(s): patient poor historian Past Anesthesia/Blood Transfusion Reactions: No Reported Reaction Past Psychological History: No Psychological Hx Reported Smoking Status: Never smoker Past Alcohol Use History: None Reported Past Drug Use History: None Reported Medications and Allergies Home Medications Medication Instructions Recorded Confirmed Type Acetaminophen [Tylenol 8 Hour] 1,300 mg PO HS 08/25/23 09/19/23 History Acetaminophen [Tylenol Arthritis] 650 mg PO AC-BRKFST 08/25/23 09/19/23 History Apixaban [Eliquis] 5 mg PO AC-BID 08/25/23 09/19/23 History Atorvastatin [Lipitor] 40 mg PO AC-BRKFST 08/25/23 09/19/23 History Calcium Carbonate [Calcium] 600 mg PO HS 08/25/23 09/19/23 History Diclofenac Sodium Gel [Voltaren 1% 1 applic TOPICAL QID PRN 08/25/23 09/19/23 History Gel] Dulaglutide [Trulicity] 0.75 mg SQ WE 08/25/23 09/19/23 History Escitalopram [Lexapro] 20 mg PO DAILY 08/25/23 09/19/23 History Ferrous Sulfate [Iron (65 MG 325 mg PO HS 08/25/23 09/19/23 History Elemental)] Insulin Glargine-Yfgn [Semglee 10 units SQ HS 08/25/23 09/19/23 History (Yfgn) Pen] Ipratropium-Albuterol Nebulize 3 ml INHALATION RT-QID PRN 08/25/23 09/19/23 History [Duoneb 0.5 mg-3 mg/3 ml Soln] Levothyroxine Sodium [Synthroid] 12.5 mcg PO AC-BRKFST 08/25/23 09/19/23 History Loperamide HCl [Imodium A-D] 2 mg PO QID PRN 08/25/23 09/19/23 History Loratadine 10 mg PO HS 08/25/23 09/19/23 History Montelukast [Singulair] 10 mg PO HS 08/25/23 09/19/23 History [place]-3/Dha/Epa/Fish Oil [Fish Oil 1 cap PO HS 08/25/23 09/19/23 History 1,000 mg Softgel] Pantoprazole [Protonix] 40 mg PO AC-BRKFST 08/25/23 09/19/23 History Potassium Gluconate 99 mg PO HS 08/25/23 09/19/23 History Prevagen 1 tab PO BID 08/25/23 09/19/23 History Super B Complex 1 tab PO HS 08/25/23 09/19/23 History Tiotropium 2.5 Mcg/Puff [Spiriva 1 puff INHALATION RT-DAILY PRN 08/25/23 09/19/23 History Respimat 2.5 Mcg] dilTIAZem HCL [dilTIAZem HCL 24Hr 180 mg PO AC-BRKFST 08/25/23 09/19/23 History ER (Xr)] Gabapentin [Neurontin] 300 mg PO TID 3 Days #9 cap 09/22/23 Rx cefUROXime axetiL [Ceftin] 500 mg PO BID 3 Days #6 tab 09/22/23 Rx Allergies Allergy/AdvReac Type Severity Reaction Status Date / Time Penicillins Allergy Rash/Hives Verified 09/24/23 20:12 Physical Exam Vitals: Vital Signs Temp Pulse Resp BP Pulse Ox 10/23/23 12:34 97.9 F 99 18 169/88 96 10/23/23 08:25 99 22 141/84 98 10/23/23 06:13 97.8 F 91 24 138/76 93 L 10/23/23 05:18 92 24 140/73 94 L 10/23/23 04:29 98 20 143/78 95 10/23/23 02:34 103 H 20 127/75 93 L 10/23/23 01:36 105 H 17 138/67 94 L 10/23/23 00:18 113 H 24 176/78 94 L 10/22/23 23:15 116 H 18 139/96 96 10/22/23 22:49 82 10/22/23 22:40 78 10/22/23 21:12 98.0 F 61 24 144/74 96 Intake and Output 10/22/23 10/23/23 10/23/23 22:59 06:59 14:59 Other: Weight 74.843 kg Results 10/22/23 21:29 10/23/23 09:47 Cardiac Enzymes 10/22/23 10/22/23 Range/Units 21:29 21:29 AST 29 (14-36) U/L Troponin I <0.012 (0.000-0.034) ng/mL Coagulation 10/22/23 Range/Units 21:29 PT 10.4 (10.0-12.5) sec APTT 26.2 (22.0-30.0) sec CBC 10/22/23 Range/Units 21:29 WBC 3.6 L (3.8-10.6) k/uL RBC 4.07 (3.80-5.40) m/uL Hgb 11.9 (11.4-16.0) gm/dL Hct 35.6 (34.0-46.0) % Plt Count 154 (150-450) k/uL Comprehensive Metabolic Panel 10/22/23 10/23/23 Range/Units 21:29 09:47 Sodium 132 L 138 (137-145) mmol/L Potassium 3.6 4.6 (3.5-5.1) mmol/L Chloride 100 106 (98-107) mmol/L Carbon Dioxide 20 L 16 L (22-30) mmol/L BUN 7 7 (7-17) mg/dL Creatinine 0.55 0.49 L (0.52-1.04) mg/dL Glucose 245 H 327 H (74-99) mg/dL Calcium 8.0 L 8.1 L (8.4-10.2) mg/dL AST 29 (14-36) U/L ALT 19 (4-34) U/L Alkaline Phosphatase 96 (38-126) U/L Total Protein 6.0 L (6.3-8.2) g/dL Albumin 3.1 L (3.5-5.0) g/dL Current Medications Generic Name Dose Route Start Last Admin Trade Name Freq PRN Reason Stop Dose Admin Acetaminophen 650 mg 10/23/23 08:56 Acetaminophen Tab 325 Mg Tab PO Q6HR PRN Fever and/ or Pain Albuterol/Ipratropium 3 ml 10/22/23 22:57 Ipratropium-Albuterol 3 Ml Neb INHALATION RT-Q4H PRN shortness of breath Apixaban 5 mg 10/23/23 09:00 10/23/23 09:27 Apixaban 5 Mg Tab PO 5 mg BID MARGOTH Administration Protocol Atorvastatin Calcium 40 mg 10/23/23 09:00 10/23/23 09:27 Atorvastatin 40 Mg Tab PO 40 mg DAILY MARGOTH Administration Azithromycin 500 mg 10/23/23 21:00 Azithromycin 500 Mg Tab PO 10/24/23 21:01 DAILY@2100 MARGOTH Protocol Dextrose/Water 25 ml 10/23/23 08:56 Dextrose 50% Syringe 50 Ml IVP PER PROTOCOL PRN Hypoglycemia Protocol Dextrose/Water 50 ml 10/23/23 08:56 Dextrose 50% Syringe 50 Ml IVP PER PROTOCOL PRN Hypoglycemia Protocol Diltiazem HCl 180 mg 10/23/23 09:00 10/23/23 09:28 Diltiazem Cd 180 Mg Cap.Er.24h PO 180 mg DAILY MARGOTH Administration Sodium Chloride 1,000 mls @ 100 mls/hr 10/22/23 23:00 10/23/23 08:25 Saline 0.9% IV 100 mls/hr .Q10H MARGOTH Administration Ceftriaxone Sodium 2 gm/ 50 mls @ 100 mls/hr 10/23/23 22:00 Sodium Chloride IVPB 10/26/23 22:29 Q24H [facility] Protocol Insulin Aspart 0 unit 10/23/23 12:30 10/23/23 12:30 Insulin Aspart (Novolog) 100 Unit/Ml Vial SQ 3 unit ACHS MARGOTH Administration Protocol Insulin Detemir 10 unit 10/23/23 21:00 Insulin Detemir (Levemir) 100 Unit/Ml Syr SQ HS [facility] Levothyroxine Sodium 12.5 mcg 10/23/23 09:00 10/23/23 09:27 Levothyroxine 25 Mcg Tab PO 12.5 mcg AC-BRKFST MARGOTH Administration Miscellaneous Information 1 each 10/22/23 22:52 Pneumonia Protocol Utilized 1 Each Misc PO ONCE PRN Per Protocol Ondansetron HCl 4 mg 10/23/23 08:56 Ondansetron 4 Mg/2 Ml Vial IVP Q6HR PRN Nausea And Vomiting Pantoprazole Sodium 40 mg 10/23/23 09:00 10/23/23 09:28 Pantoprazole 40 Mg Tablet PO 40 mg AC-BRKFST [facility] Administration Intake and Output 10/22/23 10/23/23 10/23/23 22:59 06:59 14:59 Other: Weight 74.843 kg 10/22/23 21:29 10/23/23 09:47
[2023-10-23] MEDS ORDERED: SODIUM CHLORIDE 0.9% 1,000 ML IV ONE ×2 (13:32→20:31)
[2023-10-23] MEDS ORDERED: IPRATROPIUM-ALBUTEROL 3 ML NEB INHALATION PRN (14:05)
[2023-10-23] MEDS: IPRATROPIUM-ALBUTEROL 3 ML NEB INHALATION PRN ×2 (14:21→19:45)
[2023-10-23] MEDS ORDERED: FUROSEMIDE 10 MG/ML 4 ML VIAL IV STA (15:31)
[2023-10-23] MEDS: methylPREDNISolone SOD SUCCI 125 MG/2 ML VIAL IV SCH (16:01)
--- NOTE | 2023-10-23 16:31 | P.CNPUL ---
History of Present Illness Consult date: 10/23/23 Requesting physician: Ryan Moser Reason for consult: dyspnea, cough Chief complaint: Shortness of breath, cough, wheezing History of present illness: This is an 83-year-old female with history of asthma, chronic atrial fibrillation, nonsmoker, history of hypertension and type 2 diabetes, patient presented to the ER today with 1 week history of cough wheezing shortness of breath, congestion, and feels that the heart is fluttering. Upon her initial evaluation in the ER, patient was noted to be in atrial fibrillation with RVR, patient was started on Cardizem drip, and shortly after the patient converted to normal sinus rhythm. Chest x-ray showed evidence of prominence of the pulmonary vasculature, possible bronchitis finding, no clear-cut evidence of pneumonia. Patient was already seen by cardiology on consultation, and the recommendation was to continue her diltiazem, and to make sure that the patient is on eliquis 5 mg twice a day. When I evaluated the patient in the ER, I reviewed the chest x- ray, hence I recommended Lasix 40 mg IV push, although I'm not quite convinced that the patient has congestive heart failure and also recommended bronchodilators for what seems to be a picture of cough wheezing shortness of breath/acute asthma exacerbation. I also recommended admission and further follow-up. CBC in the ER was noted to be normal basic metabolic profile was normal blood sugar was elevated at 327, lactic acid was elevated at 5.6, BNP level was normal, COVID-19 screening was negative according to the patient she always had a chronic cough. Review of Systems Constitutional: [No fever, chills, or rigors] Pulmonary: [Positive for cough, phlegm, and expectoration] GI: [no nausea, vomiting, or diarrhea] Genitourinary: [no hematuria, dysuria] Musculoskeletal [no musculoskelatal complaints] Neurologic [no strokes or seizures] Skin [no skin lesions] Hematologic: Negative Psychiatric: Negative Cardiac: As noted in HPI Past Medical History Past Medical History: Atrial Fibrillation, Diabetes Mellitus, Hypertension, Memory Impairment Additional Past Medical History / Comment(s): patient poor historian History of Any Multi-Drug Resistant Organisms: None Reported Past Surgical History: Appendectomy Additional Past Surgical History / Comment(s): patient poor historian Past Anesthesia/Blood Transfusion Reactions: No Reported Reaction Past Psychological History: No Psychological Hx Reported Smoking Status: Never smoker Past Alcohol Use History: None Reported Past Drug Use History: None Reported Medications and Allergies Home Medications Medication Instructions Recorded Confirmed Type Acetaminophen [Tylenol 8 Hour] 1,300 mg PO HS 08/25/23 10/23/23 History Acetaminophen [Tylenol Arthritis] 650 mg PO AC-BRKFST 08/25/23 10/23/23 History Apixaban [Eliquis] 5 mg PO AC-BID 08/25/23 10/23/23 History Atorvastatin [Lipitor] 40 mg PO AC-BRKFST 08/25/23 10/23/23 History Calcium Carbonate [Calcium] 600 mg PO HS 08/25/23 10/23/23 History Diclofenac Sodium Gel [Voltaren 1% 1 applic TOPICAL QID PRN 08/25/23 10/23/23 History Gel] Dulaglutide [Trulicity] 0.75 mg SQ WE 08/25/23 10/23/23 History Escitalopram [Lexapro] 20 mg PO DAILY 08/25/23 10/23/23 History Ferrous Sulfate [Iron (65 MG 325 mg PO HS 08/25/23 10/23/23 History Elemental)] Insulin Glargine-Yfgn [Semglee 10 units SQ HS 08/25/23 10/23/23 History (Yfgn) Pen] Ipratropium-Albuterol Nebulize 3 ml INHALATION RT-QID PRN 08/25/23 10/23/23 History [Duoneb 0.5 mg-3 mg/3 ml Soln] Levothyroxine Sodium [Synthroid] 12.5 mcg PO -BRKFST 08/25/23 10/23/23 History Loperamide HCl [Imodium A-D] 2 mg PO QID PRN 08/25/23 10/23/23 History Loratadine 10 mg PO HS 08/25/23 10/23/23 History Montelukast [Singulair] 10 mg PO HS 08/25/23 10/23/23 History [place]-3/Dha/Epa/Fish Oil [Fish Oil 1 cap PO HS 08/25/23 10/23/23 History 1,000 mg Softgel] Pantoprazole [Protonix] 40 mg PO AC-BRKFST 08/25/23 10/23/23 History Potassium Gluconate 99 mg PO HS 08/25/23 10/23/23 History Prevagen 1 tab PO BID 08/25/23 10/23/23 History Super B Complex 1 tab PO HS 08/25/23 10/23/23 History Tiotropium 2.5 Mcg/Puff [Spiriva 1 puff INHALATION RT-DAILY PRN 08/25/23 10/23/23 History Respimat 2.5 Mcg] dilTIAZem HCL [dilTIAZem HCL 24Hr 180 mg PO AC-BRKFST 08/25/23 10/23/23 History ER (Xr)] Gabapentin [Neurontin] 300 mg PO TID 3 Days #9 cap 09/22/23 10/23/23 Rx Allergies Allergy/AdvReac Type Severity Reaction Status Date / Time Penicillins Allergy Rash/Hives Verified 10/23/23 13:40 Physical Exam Vitals: Vital Signs Temp Pulse Resp BP Pulse Ox 10/23/23 16:09 100 18 140/64 97 10/23/23 14:32 101 H 10/23/23 14:22 94 10/23/23 14:10 99 18 127/115 95 10/23/23 13:47 989 H 18 148/86 95 10/23/23 12:34 97.9 F 99 18 169/88 96 10/23/23 08:25 99 22 141/84 98 10/23/23 06:13 97.8 F 91 24 138/76 93 L 10/23/23 05:18 92 24 140/73 94 L 10/23/23 04:29 98 20 143/78 95 10/23/23 02:34 103 H 20 127/75 93 L 10/23/23 01:36 105 H 17 138/67 94 L 10/23/23 00:18 113 H 24 176/78 94 L 10/22/23 23:15 116 H 18 139/96 96 10/22/23 22:49 82 10/22/23 22:40 78 10/22/23 21:12 98.0 F 61 24 144/74 96 Intake and Output 10/23/23 10/23/23 10/23/23 06:59 14:59 22:59 Output Total 1000 Balance -1000 Output: Urine 1000 Physical Exam: Revealed an 83-year-old female obese, in no distress, on room air with O2 saturation 97% Head: Atraumatic, normocephalic HEENT: Short obese neck [Neck is supple.] [No neck masses.] [No thyromegaly.] [No JVD.] Chest: Symmetrical chest expansion diffuse rhonchi and wheezes Cardiac Exam: [Normal S1 and S2, no S3 gallop, 2/6 systolic murmur thought the precordium Abdomen: [Obese, Soft, nontender, no megaly, no rebound, no guarding, normal bowel sounds.] Extremities: [No clubbing, no edema, no cyanosis.] Neurological Exam: [No focal neurologic deficit.] Alert and oriented 3 Psychiatric: Normal mood affect and normal mental status examination. Skin: No rashes Results - Laboratory Findings CBC and BMP: 10/22/23 21:29 10/23/23 09:47 PT/INR, D-dimer PT 10.4 sec (10.0-12.5) 10/22/23 21:29 INR 0.9 (<1.2) 10/22/23 21:29 Abnormal lab findings: Abnormal Labs 10/22/23 10/22/23 10/22/23 21:29 21:29 21:29 WBC 3.6 L Sodium 132 L Carbon Dioxide 20 L Creatinine Glucose 245 H POC Glucose (mg/dL) Plasma Lactic Acid [place] 2.9 H* Calcium 8.0 L Total Protein 6.0 L Albumin 3.1 L 10/23/23 10/23/23 10/23/23 01:32 05:13 05:45 WBC Sodium Carbon Dioxide Creatinine Glucose POC Glucose (mg/dL) 274 H Plasma Lactic Acid [place] 4.0 H* 4.2 H* Calcium Total Protein Albumin 10/23/23 10/23/23 10/23/23 08:24 09:47 09:47 WBC Sodium Carbon Dioxide 16 L Creatinine 0.49 L Glucose 327 H POC Glucose (mg/dL) 290 H Plasma Lactic Acid Victro Hugo 5.6 H* Calcium 8.1 L Total Protein Albumin 10/23/23 11:38 WBC Sodium Carbon Dioxide Creatinine Glucose POC Glucose (mg/dL) 294 H Plasma Lactic Acid [place] Calcium Total Protein Albumin - Diagnostic Findings Chest x-ray: image reviewed (As noted in HPI) Assessment and Plan Assessment: Impression: Atrial fibrillation with RVR Known history of chronic atrial fibrillation Acute asthma exacerbation Suspect chronic cough variant asthma 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 Patient was given 1 dose of Lasix 40 mg IV push 1 Continue bronchodilators Will start the patient on Solu-Medrol 60 mg IV push every 8 hours Continue empiric antibiotics/ceftriaxone and Zithromax Continue insulin as per scale and Levemir insulin Resume Singulair 10 mg at bedtime Close monitoring of the blood sugars while on steroids We'll continue to follow Time with Patient: Greater than 30
[2023-10-23 16:58] LABS: Glucose,Whole Blood 219 mg/dL (70-110)
--- NOTE | 2023-10-23 17:22 | CT ---
EXAMINATION TYPE: CT abdomen pelvis w con DATE OF EXAM: 10/23/2023 COMPARISON: NONE HISTORY: 83-year-old female generalized pain TECHNIQUE: Contiguous axial scanning of the abdomen and pelvis following administration of 100 ml Iso lolis 300 IV contrast. Delayed images through the kidneys and coronal/sagittal reconstructions perform ed. CT DLP: 1752.9 mGycm Automated exposure control for dose reduction was used. FINDINGS: Focal soft tissue measuring 2.7 cm behind the left nipple partially visualized. This may represent so me focal dense fibroglandular tissue. Diagnostic mammogram evaluation to exclude the possibility of a mass. Heart normal size without pericardial effusion. LAD coronary artery calcifications are present. Stran dy scarring in the lower lungs. Calcified granuloma right base. No pleural effusion. No focal liver lesion or biliary ductal dilatation. Portal venous system is patent. Surgical change at the GE junction, suspected recent fundoplication but with a recurrent small hiatal hernia. Gallbladder surgically absent. Adrenal glands, kidneys, and atrophic pancreas show no gross adenopathy. Tiny calcified granulomas within the spleen. No dilated small bowel, free fluid, or free air. No mesenteric or retroperitoneal adenopathy. Moderate atherosclerotic calcifications infrarenal abdominal aorta without aneurysm. Normal appendix. Scattered mild stool. Sigmoid diverticulosis. No pericolic inflammatory change. Bladder nondistended. Uterus is retroverted. Small bilateral ovaries. No abnormal fluid collection in the pelvis or pelvic lymphadenopathy. Bones: Osseous pubis. Mild degenerative change of the hips. Moderate spondylotic changes lumbar spine with grade 1 anterolisthesis L4-L5. IMPRESSION: 1. STATUS POST FRIEDA FUNDOPLICATION BUT WITH A RECURRENT SMALL HIATAL HERNIA OCCURRING ABOVE THE NIS SEN WRAP. CORRELATE FOR ANY RECURRENT SYMPTOMS. 2. Sigmoid diverticulosis without acute diverticulitis. 3. An area of 2.7 cm soft tissue partially visualized behind the left nipple could represent a focal island of fibroglandular tissue. Outpatient diagnostic mammogram and ultrasound evaluation to exclude the possibility of a mass. Correlate with physical exam findings as well.
[2023-10-23] MEDS: MONTELUKAST 10 MG TAB PO SCH (20:24)
[2023-10-23] MEDS: FERROUS SULFATE 325 MG TAB PO SCH (20:24)
[2023-10-23] MEDS: LORATADINE 10 MG TAB PO SCH (20:24)
[2023-10-23] MEDS: AZITHROMYCIN 500 MG TAB PO SCH (20:24)
[2023-10-23 20:38] LABS: Glucose,Whole Blood 306 mg/dL (70-110)
[2023-10-23] MEDS ORDERED: INSULIN DETEMIR (LEVEMIR) 100 UNIT/ML SYR SQ SCH (21:00)
[2023-10-24] MEDS: methylPREDNISolone SOD SUCCI 125 MG/2 ML VIAL IV SCH ×4 (00:07→23:56)
[2023-10-24] MEDS: SODIUM CHLORIDE 0.9% 1,000 ML IV SCH ×2 (04:16→17:22)
[2023-10-24 06:32] LABS: Basophils % (A) 0 %; Eosinophils % (A) 0 %; HCT 34.8 % (34.0-46.0); HGB 11.6 gm/dL (11.4-16.0); Lymphocytes # (A) 0.5 k/uL (1.0-4.8); Lymphocytes % (A) 6 %; MCHC 33.4 g/dL (31.0-37.0); MCV 86.9 fL (80.0-100.0); Mean Platelet Volume 9.3; Monocytes # (A) 0.2 k/uL (0-1.0); Monocytes % (A) 3 %; Neutrophils # (A) 7.5 k/uL (1.3-7.7); Neutrophils % (A) 91 %; Platelet Count 176 k/uL (150-450); RBC 4.01 m/uL (3.80-5.40); RDW 14.3 % (11.5-15.5); WBC 8.2 k/uL (3.8-10.6)
[2023-10-24 07:01] LABS: ALT 28 U/L (4-34); AST 23 U/L (14-36); African American GFR (CKD) >90 (>60 ml/min/1.73 sqM); Albumin 3.2 g/dL (3.5-5.0); Alkaline Phosphatase 95 U/L (38-126); Anion Gap 12 mmol/L; Blood Urea Nitrogen 10 mg/dL (7-17); Calcium 8.1 mg/dL (8.4-10.2); Carbon Dioxide 22 mmol/L (22-30); Chloride 102 mmol/L (98-107); Glucose 257 mg/dL (74-99); Non-African American GFR(CKD) >90 (>60 ml/min/1.73 sqM); Sodium 136 mmol/L (137-145); Total Bilirubin 0.4 mg/dL (0.2-1.3)
[2023-10-24 07:05] LABS: NT-Pro-B-Type Natriuretic Pept 952 pg/mL
--- NOTE | 2023-10-24 08:01 | P.PN ---
Subjective Progress Note Date: 10/24/23 Principal diagnosis: Shortness of breath. This is an 83-year-old female with history of asthma, chronic atrial fibrillation, nonsmoker, history of hypertension and type 2 diabetes, patient presented to the ER today with 1 week history of cough wheezing shortness of breath, congestion, and feels that the heart is fluttering. Upon her initial evaluation in the ER, patient was noted to be in atrial fibrillation with RVR, patient was started on Cardizem drip, and shortly after the patient converted to normal sinus rhythm. Chest x-ray showed evidence of prominence of the pulmonary vasculature, possible bronchitis finding, no clear-cut evidence of pneumonia. Patient was already seen by cardiology on consultation, and the recommendation was to continue her diltiazem, and to make sure that the patient is on eliquis 5 mg twice a day. When I evaluated the patient in the ER, I reviewed the chest x- ray, hence I recommended Lasix 40 mg IV push, although I'm not quite convinced that the patient has congestive heart failure and also recommended bronchodilators for what seems to be a picture of cough wheezing shortness of breath/acute asthma exacerbation. I also recommended admission and further follow-up. CBC in the ER was noted to be normal basic metabolic profile was normal blood sugar was elevated at 327, lactic acid was elevated at 5.6, BNP level was normal, COVID-19 screening was negative according to the patient she always had a chronic cough. Progress note dated 10/24/2023. 83-year-old female seen in the emergency department, room 19. She was admitted with a diagnosis of atrial fibrillation with RVR, and possible pneumonia. She does have a history of asthma, chronic atrial fibrillation, hypertension, type 2 diabetes. The patient's currently on room air. She's not receiving any IV fluids. She states that she feels much better than when she first came into the hospital. She was seen yesterday in consultation. Currently labs white count 8.2, hemoglobin 11.6, hematocrit 34.8, and a platelet count of 176,000. Sodium 136, potassium 4, chlorides 102, CO2 22, anion gap 12, BUN 10, creatinine 0.48. Lactic acid levels were 5.1, 4.8, and most recently 3.5. N-terminal proBNP was 952. Chest x-ray is not overly impressive, but does suggest the possibility of some atelectasis or infiltrates. The patient continues on azithromycin and Rocephin. Objective - Vital Signs Vital signs: Vital Signs Temp 98.1 F 10/23/23 23:00 Pulse 96 10/24/23 06:00 Resp 16 10/24/23 06:00 BP 139/76 10/24/23 06:00 Pulse Ox 95 10/24/23 06:00 FiO2 Intake & Output 10/23/23 10/24/23 10/24/23 18:59 06:59 18:59 Output Total 1999 999 Balance -1999 -999 Output: Urine 1999 999 - Exam No acute distress, oriented 3. No respiratory distress. Currently on room air. HEENT examination is grossly unremarkable. Mucous membranes are moist. No oral lesions. Neck supple. Full range of motion. No adenopathy thyromegaly or neck vein distention. Cardiovascular examination reveals regular rhythm rate. S1-S2 normal. No S3 or S4. No discernible murmur noted. Heart rate 96 bpm. Lungs reveal minimal scattered rhonchi. No wheezes. No crackles. Breath sounds equal. Room air saturation 95%. Abdomen soft bowel sounds are heard. No masses or tenderness. Extremities are intact. No cyanosis clubbing or edema. Skin is without rash or lesion. Neurologic examination is brief but nonfocal. - Labs CBC & Chem 7: 10/24/23 06:20 10/24/23 06:20 Labs: Abnormal Lab Results - Last 24 Hours (Table) 10/23/23 10/23/23 10/23/23 Range/Units :24 09:47 09:47 Lymphocytes # (1.0-4.8) k/uL Sodium (137-145) mmol/L Carbon Dioxide 16 L (22-30) mmol/L Creatinine 0.49 L (0.52-1.04) mg/dL Glucose 327 H (74-99) mg/dL POC Glucose (mg/dL) 290 H (70-110) mg/dL Plasma Lactic Acid Victor Hugo 5.6 H* (0.7-2.0) mmol/L Calcium 8.1 L (8.4-10.2) mg/dL Total Protein (6.3-8.2) g/dL Albumin (3.5-5.0) g/dL 10/23/23 10/23/2310/23/24 Range/Units 11:38 15:05 16:57 Lymphocytes # (1.0-4.8) k/uL Sodium (137-145) mmol/L Carbon Dioxide (22-30) mmol/L Creatinine (0.52-1.04) mg/dL Glucose (74-99) mg/dL POC Glucose (mg/dL) 294 H 219 H (70-110) mg/dL Plasma Lactic Acid Victor Hugo 3.9 H* (0.7-2.0) mmol/L Calcium (8.4-10.2) mg/dL Total Protein (6.3-8.2) g/dL Albumin (3.5-5.0) g/dL 10/23/23 10/23/23 10/23/23 Range/Units 18:57 20:37 21:54 Lymphocytes # (1.0-4.8) k/uL Sodium (137-145) mmol/L Carbon Dioxide (22-30) mmol/L Creatinine (0.52-1.04) mg/dL Glucose (74-99) mg/dL POC Glucose (mg/dL) 306 H (70-110) mg/dL Plasma Lactic Acid Victor Hugo 6.6 H* 5.1 H* (0.7-2.0) mmol/L Calcium (8.4-10.2) mg/dL Total Protein (6.3-8.2) g/dL Albumin (3.5-5.0) g/dL 10/24/23 10/24/23 10/24/23 Range/Units 01:17 06:20 06:20 Lymphocytes # 0.5 L (1.0-4.8) k/uL Sodium 136 L (137-145) mmol/L Carbon Dioxide (22-30) mmol/L Creatinine 0.48 L (0.52-1.04) mg/dL Glucose 257 H (74-99) mg/dL POC Glucose (mg/dL) (70-110) mg/dL Plasma Lactic Acid Victor Hugo 4.8 H* (0.7-2.0) mmol/L Calcium 8.1 L (8.4-10.2) mg/dL Total Protein 6.0 L (6.3-8.2) g/dL Albumin 3.2 L (3.5-5.0) g/dL 10/24/23 Range/Units 06:20 Lymphocytes # (1.0-4.8) k/uL Sodium (137-145) mmol/L Carbon Dioxide (22-30) mmol/L Creatinine (0.52-1.04) mg/dL Glucose (74-99) mg/dL POC Glucose (mg/dL) (70-110) mg/dL Plasma Lactic Acid Victor Hugo 3.5 H* (0.7-2.0) mmol/L Calcium (8.4-10.2) mg/dL Total Protein (6.3-8.2) g/dL Albumin (3.5-5.0) g/dL Assessment and Plan Assessment: Shortness of breath, multifactorial, in part related to atrial fibrillation with RVR, acute asthma exacerbation, and possible pneumonia. History of chronic atrial fibrillation. History of chronic bronchial asthma. History of cough variant asthma. Type 2 diabetes mellitus. Benign essential hypertension. Lifelong nonsmoker. Plan: Plan dated 10/24/2023. The patient continues on azithromycin and Rocephin. In addition, the patient's receiving breathing treatments, and corticosteroids. Additional recommendations and suggestions are forthcoming. Clinically, the patient looks pretty well. She is laying in bed, without any supplemental oxygen. She's not describing any difficulty breathing, and she does feel better than when she first came into the hospital. We will continue to follow make recommendations along the way. Prognosis is guarded. Time with Patient: Less than 30
[2023-10-24] MEDS: INSULIN ASPART (NovoLOG) 100 UNIT/ML VIAL SQ SCH ×4 (09:21→20:56)
[2023-10-24] MEDS: APIXABAN 5 MG TAB PO SCH ×2 (09:21→20:33)
[2023-10-24] MEDS: LEVOTHYROXINE 25 MCG TAB PO SCH (09:22)
[2023-10-24] MEDS: ESCITALOPRAM 20 MG TAB PO SCH (09:22)
[2023-10-24] MEDS: ATORVASTATIN 40 MG TAB PO SCH (09:22)
[2023-10-24] MEDS: PANTOPRAZOLE 40 MG TABLET PO SCH (09:22)
[2023-10-24] MEDS: DILTIAZEM CD 240 MG CAP.ER.24H PO SCH (09:26)
[2023-10-24] MEDS: IPRATROPIUM-ALBUTEROL 3 ML NEB INHALATION PRN ×4 (09:31→21:19)
--- NOTE | 2023-10-24 11:34 | P.PN ---
Subjective HISTORY OF PRESENT ILLNESS: HPI: Patient is a pleasant 83-year-old female who presented to the hospital with complaints of shortness of breath, cough, congestion, weakness, and heart fluttering. Pertinent past medical history includes atrial fibrillation, diabetes, hypertension, and memory impairment. Patient states that she was having shortness of breath at home. She was also having a cough with chest congestion and overall not feeling good. She presented to the ER for evaluation. Upon arrival the patient was found to be in atrial fibrillation with rapid ventricular response. She was started on a Cardizem drip, and quickly converted to normal sinus rhythm. Chest x-ray completed in the emergency department was not necessarily indicative of pneumonia, but was suspicious for bronchitis. X-ray that was completed again today does begin to show possible patchy peripheral basilar opacities which could be developing infiltrates consistent with pneumonia. Patient on the monitor at this time is normal sinus rhythm. She is otherwise denying chest pain, heart palpitations, dizziness, and near syncopal symptoms. REVIEW OF LABS, ECG & MEDICAL DATA: LABS: White count 3.6, hemoglobin 11.9, platelet is 154, sodium 138, potassium 4.6, BUN 7, creatinine 0.49, lactic acid 5.6, calcium 8.1, magnesium 1.6, trop onin less than 0.012, BNP 70, TSH 0.531 EKG: EKG dated 10/22/2023 shows atrial fibrillation with rapid ventricular response. EKG dated 10/23/2023 shows normal sinus rhythm with sinus arrhythmia. IMAGING: Chest x-ray dated 10/22/2023 demonstrates COPD, either a prominent component of chronic bronchitis versus superimposed acute bronchitis, clinically correlate, no focal infiltrates seen, chronic full-thickness rotator cuff tears on both sides, re-tear on the left. Chest x-ray dated 10/23/2023 demonstrates limited by hypoventilatory changes, there is some patchy peripheral basilar opacities, unable to exclude developing infiltrates. VITALS: Temp 97.8, pulse 91, respirations 24, blood pressure 138/76, O2 saturation 93% on room air 10/24/2023 Patient examined this morning in the emergency room. Patient currently denies chest pain or pressure. She reports mild shortness of breath. Bedside telemetry reveals atrial fibrillation with a heart rate between [id number]. She is currently on 180 mg of Cardizem daily. She is anticoagulated with Eliquis. PHYSICAL EXAM: VITAL SIGNS: Reviewed. GENERAL: Well-developed in no acute distress. NECK: Supple. No JVD or thyromegaly LUNGS: Respirations even and unlabored. Lungs with expiratory wheezing noted HEART: Tachycardic. Irregular rate and rhythm. S1 and S2 heard. EXTREMITIES: Normal range of motion. No clubbing or cyanosis. Peripheral pulses intact. Trace bilateral lower extremity edema ASSESSMENT: Shortness of breath Acute asthma exacerbation with possible pneumonia Paroxysmal atrial fibrillation Hypertension Hyperlipidemia Diabetes PLAN: Obtain 2-D echo to assess cardiac structure and function TSH checked and within normal limits at 0.531. Continue anticoagulation with Eliquis Increase Cardizem CD to 240 mg daily Continue additional cardiac medications Continue telemetry monitoring Further recommendations pending patient's course Nurse practitioner note has been reviewed by physician. Signing provider agrees with the documented findings, assessment, and plan of care. Objective - Vital Signs Vital signs: Vital Signs Temp 98.3 F 10/24/23 08:30 Pulse 101 H 10/24/23 09:40 Resp 16 10/24/23 06:00 BP 153/91 10/24/23 08:30 Pulse Ox 95 10/24/23 08:30 FiO2 Intake & Output 10/23/23 10/24/23 10/24/23 18:59 06:59 18:59 Output Total 2000 1000 Balance -1999 -1000 Output: Urine 1999 1000 Other: Voiding Method External Catheter - Labs CBC & Chem 7: 10/24/23 06:20 10/24/23 06:20 Labs: Abnormal Lab Results - Last 24 Hours (Table) 10/23/23 10/23/23 10/23/23 Range/Units 11:38 15:05 16:57 Lymphocytes # (1.0-4.8) k/uL Sodium (137-145) mmol/L Creatinine (0.52-1.04) mg/dL Glucose (74-99) mg/dL POC Glucose (mg/dL) 294 H 219 H (70-110) mg/dL Hemoglobin A1c (<=6.0) % Plasma Lactic Acid Victor Hugo 3.9 H* (0.7-2.0) mmol/L Calcium (8.4-10.2) mg/dL Total Protein (6.3-8.2) g/dL Albumin (3.5-5.0) g/dL 10/23/23 10/23/23 10/23/23 Range/Units 18:57 20:37 21:54 Lymphocytes # (1.0-4.8) k/uL Sodium (137-145) mmol/L Creatinine (0.52-1.04) mg/dL Glucose (74-99) mg/dL POC Glucose (mg/dL) 306 H (70-110) mg/dL Hemoglobin A1c (<=6.0) % Plasma Lactic Acid Victor Hugo 6.6 H* 5.1 H* (0.7-2.0) mmol/L Calcium (8.4-10.2) mg/dL Total Protein (6.3-8.2) g/dL Albumin (3.5-5.0) g/dL 10/24/23 10/24/23 10/24/23 Range/Units 01:17 06:20 06:20 Lymphocytes # 0.5 L (1.0-4.8) k/uL Sodium (137-145) mmol/L Creatinine (0.52-1.04) mg/dL Glucose (74-99) mg/dL POC Glucose (mg/dL) (70-110) mg/dL Hemoglobin A1c 8.7 H (<=6.0) % Plasma Lactic Acid Victor Hugo 4.8 H* (0.7-2.0) mmol/L Calcium (8.4-10.2) mg/dL Total Protein (6.3-8.2) g/dL Albumin (3.5-5.0) g/dL 10/24/23 10/24/23 10/24/23 Range/Units 06:20 06:20 09:30 Lymphocytes # (1.0-4.8) k/uL Sodium 136 L (137-145) mmol/L Creatinine 0.48 L (0.52-1.04) mg/dL Glucose 257 H (74-99) mg/dL POC Glucose (mg/dL) (70-110) mg/dL Hemoglobin A1c (<=6.0) % Plasma Lactic Acid Victor Hugo 3.5 H* 4.7 H* (0.7-2.0) mmol/L Calcium 8.1 L (8.4-10.2) mg/dL Total Protein 6.0 L (6.3-8.2) g/dL Albumin 3.2 L (3.5-5.0) g/dL
[2023-10-24 12:12] LABS: Glucose,Whole Blood 388 mg/dL (70-110)
[2023-10-24 12:12] LABS: Glucose,Whole Blood 240 mg/dL (70-110)
[2023-10-24] MEDS ORDERED: INSULIN DETEMIR (LEVEMIR) 100 UNIT/ML SYR SQ ONE (14:17)
[2023-10-24 16:57] LABS: Glucose,Whole Blood 428 mg/dL (70-110)
--- NOTE | 2023-10-24 18:42 | P.PN ---
Subjective Please consider this note as H&P This is a pleasant 83 years old female with past medical history of asthma, presents because signs symptoms of dyspnea, cough and congestion and exertional shortness of breath She was admitted with a diagnosis with acute asthma exacerbation, chest x-ray showed cardiomegaly with increase atelectasis versus early infiltrate in the lower lung suspicious for pneumonia. Patient is started on IV antibiotics Zithromax and ceftriaxone and obvious on Medrol 60 mg and to treat transiently with IV hydration which is stopped bowel. Patient today feels better Cough is better, dyspnea is better with no chest pain Hemodynamically stable. WBCs 3.6, creatinine 0.49 Lactic acid elevated could be multifactorial secondary to infection, steroid use, hypoxia, TSH 0.53, troponin is negative less than 0.012. ProBNP 70. Covid is negative Chest x-ray showing both bronchitis with bilateral tear. Repeat chest x-ray showing some patchy infiltrates which cannot exclude earlier developing infiltrate CT of the abdomen and pelvis showed soft tissue mass 2.7 cm below the left nipple. Recommend Review of systems CONSTITUTIONAL: No fever, no malaise, no fatigue. HEENT: No recent visual problems or hearing problems. Denied any sore throat. CARDIOVASCULAR: No orthopnea, PND, no palpitations, no syncope. PULMONARY: No chest wall tenderness Intestinal : No diarrhea, no nausea, no vomiting, no abdominal pain. Normoactive bowel sounds. NEUROLOGICAL: No headaches, no weakness, no numbness. HEMATOLOGICAL: Denies any bleeding or petechiae. GENITOURINARY: Denies any burning micturition, frequency, or urgency. MUSCULOSKELETAL/RHEUMATOLOGICAL: Denies any joint pain, swelling, or any muscle pain. ENDOCRINE: Denies any polyuria or polydipsia. Objective - Vital Signs Vital signs: Vital Signs Temp 98.1 F 10/24/23 12:10 Pulse 105 H 10/24/23 12:26 Resp 22 10/24/23 12:10 BP 138/106 10/24/23 12:10 Pulse Ox 97 10/24/23 12:10 FiO2 Intake & Output 10/23/23 10/24/23 10/24/23 18:59 06:59 18:59 Output Total 1999 1000 Balance -1999 -1000 Output: Urine 1999 1000 Other: Voiding Method External Catheter - Exam GENERAL: The patient is alert and oriented x3, not in any acute distress. Well developed, well nourished. HEENT: Pupils are round and equally reacting to light. EOMI. No scleral icterus. No conjunctival pallor. Normocephalic, atraumatic. No pharyngeal erythema. No thyromegaly. CARDIOVASCULAR: S1 and S2 present. No murmurs, rubs, or gallops. PULMONARY: Chest is clear to auscultation, no wheezing , no crackles. ABDOMEN: Soft, nontender, nondistended, normoactive bowel sounds. No palpable organomegaly. MUSCULOSKELETAL: No joint swelling or deformity. EXTREMITIES: No cyanosis, clubbing, or pedal edema. NEUROLOGICAL: Gross neurological examination did not reveal any focal deficits. SKIN: No rashes. no petechiae. - Labs CBC & Chem 7: 10/24/23 06:20 10/24/23 06:20 Labs: Abnormal Lab Results - Last 24 Hours (Table) 10/23/23 10/23/23 10/23/23 Range/Units 15:05 16:57 18:57 Lymphocytes # (1.0-4.8) k/uL Sodium (137-145) mmol/L Creatinine (0.52-1.04) mg/dL Glucose (74-99) mg/dL POC Glucose (mg/dL) 219 H (70-110) mg/dL Hemoglobin A1c (<=6.0) % Plasma Lactic Acid Victor Hugo 3.9 H* 6.6 H* (0.7-2.0) mmol/L Calcium (8.4-10.2) mg/dL Total Protein (6.3-8.2) g/dL Albumin (3.5-5.0) g/dL 10/23/23 10/23/23 10/24/23 Range/Units 20:37 21:54 01:17 Lymphocytes # (1.0-4.8) k/uL Sodium (137-145) mmol/L Creatinine (0.52-1.04) mg/dL Glucose (74-99) mg/dL POC Glucose (mg/dL) 306 H (70-110) mg/dL Hemoglobin A1c (<=6.0) % Plasma Lactic Acid Victor Hugo 5.1 H* 4.8 H* (0.7-2.0) mmol/L Calcium (8.4-10.2) mg/dL Total Protein (6.3-8.2) g/dL Albumin (3.5-5.0) g/dL 10/24/23 10/24/23 10/24/23 Range/Units 06:20 06:20 06:20 Lymphocytes # 0.5 L (1.0-4.8) k/uL Sodium 136 L (137-145) mmol/L Creatinine 0.48 L (0.52-1.04) mg/dL Glucose 257 H (74-99) mg/dL POC Glucose (mg/dL) (70-110) mg/dL Hemoglobin A1c 8.7 H (<=6.0) % Plasma Lactic Acid Victor Hugo (0.7-2.0) mmol/L Calcium 8.1 L (8.4-10.2) mg/dL Total Protein 6.0 L (6.3-8.2) g/dL Albumin 3.2 L (3.5-5.0) g/dL 10/24/23 10/24/23 10/24/23 Range/Units 06:20 08:56 09:30 Lymphocytes # (1.0-4.8) k/uL Sodium (137-145) mmol/L Creatinine (0.52-1.04) mg/dL Glucose (74-99) mg/dL POC Glucose (mg/dL) 240 H (70-110) mg/dL Hemoglobin A1c (<=6.0) % Plasma Lactic Acid Victor Hugo 3.5 H* 4.7 H* (0.7-2.0) mmol/L Calcium (8.4-10.2) mg/dL Total Protein (6.3-8.2) g/dL Albumin (3.5-5.0) g/dL 10/24/23 10/24/23 Range/Units 12:10 12:47 Lymphocytes # (1.0-4.8) k/uL Sodium (137-145) mmol/L Creatinine (0.52-1.04) mg/dL Glucose (74-99) mg/dL POC Glucose (mg/dL) 388 H (70-110) mg/dL Hemoglobin A1c (<=6.0) % Plasma Lactic Acid Victor Hugo 6.0 H* (0.7-2.0) mmol/L Calcium (8.4-10.2) mg/dL Total Protein (6.3-8.2) g/dL Albumin (3.5-5.0) g/dL Microbiology - Last 24 Hours (Table) 10/23/23 01:00 Blood Culture - Preliminary Blood 10/23/23 00:45 Blood Culture - Preliminary Blood Assessment and Plan Assessment: Acute asthma exacerbation Possible early infiltrate and suspected pneumonia A. fib and RVR 2.7 cm mass behind the left nipple. Hypertension Diabetes mellitus with hyperglycemia Elevated lactic acid Acute COPD exacerbation Plan: The antibiotics Zithromax Rocephin Continuous oh Medrol 60 mg IV fluid Continue with Eliquis Cardiology and pulmonary consult Start insulin levemir and NovoLog with meals, patient informed and he agrees Labs and medication were reviewed.. Continue same treatment. Continue with sym ptomatic treatment. Resume home medication. Monitor labs and vitals. DVT and GI prophylaxis. Further recommendations as per clinical course of the patient DVT prophylaxis: eliquis GI Prophylaxis: Pepcid PT/OT: Pending Prognosis is guarded
[2023-10-24] MEDS: MONTELUKAST 10 MG TAB PO SCH (20:33)
[2023-10-24] MEDS: AZITHROMYCIN 500 MG TAB PO SCH (20:33)
[2023-10-24] MEDS: FERROUS SULFATE 325 MG TAB PO SCH (20:33)
[2023-10-24] MEDS: LORATADINE 10 MG TAB PO SCH (20:33)
[2023-10-24 20:51] LABS: Glucose,Whole Blood 338 mg/dL (70-110)
[2023-10-24] MEDS: INSULIN DETEMIR (LEVEMIR) 100 UNIT/ML SYR SQ SCH (20:56)
[2023-10-24] MEDS ORDERED: INSULIN DETEMIR (LEVEMIR) 100 UNIT/ML SYR SQ SCH (21:00)
[2023-10-25] MEDS: SODIUM CHLORIDE 0.9% 1,000 ML IV SCH ×3 (00:02→21:21)
[2023-10-25 06:09] LABS: Glucose,Whole Blood 339 mg/dL (70-110)
[2023-10-25] MEDS: PANTOPRAZOLE 40 MG TABLET PO SCH (06:32)
[2023-10-25] MEDS: INSULIN ASPART (NovoLOG) 100 UNIT/ML VIAL SQ SCH ×4 (06:32→21:21)
[2023-10-25] MEDS: LEVOTHYROXINE 25 MCG TAB PO SCH (06:32)
[2023-10-25] MEDS: methylPREDNISolone SOD SUCCI 125 MG/2 ML VIAL IV SCH ×2 (08:43→18:08)
[2023-10-25] MEDS: ESCITALOPRAM 20 MG TAB PO SCH (08:43)
[2023-10-25] MEDS: DILTIAZEM CD 240 MG CAP.ER.24H PO SCH (08:43)
[2023-10-25] MEDS: APIXABAN 5 MG TAB PO SCH ×2 (08:43→21:21)
[2023-10-25] MEDS: ATORVASTATIN 40 MG TAB PO SCH (08:49)
[2023-10-25] MEDS: IPRATROPIUM-ALBUTEROL 3 ML NEB INHALATION PRN ×2 (09:19→15:21)
--- NOTE | 2023-10-25 11:22 | CA ---
Transthoracic Echo Report Name: Flores Chadwick Age: 83 Gender: F : 1940 Exam Date: 10/25/2023 07:45 Exam Location: [place] [facility] Ht (in): 64 Wt (lb): 164 Ordering Physician: Betty Montemayor Attending/Referring Phys: [id number], [facility] Physics Technician Lena Cervantes RDCS Procedure CPT: Indications: LV function Cardiac Hx: Technical Quality: Fair Contrast 1: Total Dose (mL): Contrast 2: Total Dose (mL): MEASUREMENTS (Male / Female) Normal Values 2D ECHO LV Diastolic Diameter PLAX 4.1 cm 4.2 - 5.9 / 3.9 - 5.3 cm LV Systolic Diameter PLAX 3.0 cm IVS Diastolic Thickness 1.1 cm 0.6 - 1.0 / 0.6 - 0.9 cm LVPW Diastolic Thickness 1.1 cm 0.6 - 1.0 / 0.6 - 0.9 cm LV Relative Wall Thickness 0.6 RV Internal Dim ED PLAX 3.2 cm LA Systolic Diameter LX 4.4 cm 3.0 - 4.0 / 2.7 - 3.8 cm LV Diastolic Volume MOD 4C 62.3 cm??? LV Systolic Volume MOD 4C 28.4 cm??? LV Ejection Fraction MOD 4C 54.5 % LV Cardiac Index MOD 4C 1756.0 cm???/min???m??? LV Diastolic Length 4C 7.0 cm LV Systolic Length 4C 6.2 cm LV Diastolic Volume MOD 2C 51.1 cm??? LV Systolic Volume MOD 2C 15.9 cm??? LV Ejection Fraction MOD 2C 68.9 % LV Cardiac Index MOD 2C 1825.7 cm???/min???m??? LV Diastolic Length 2C 7.5 cm LV Systolic Length 2C 6.1 cm LA Volume 52.0 cm??? 18 - 58 / 22 - 52 cm??? LA Volume Index 28.1 cm???/m??? 16 - 28 cm???/m??? M-MODE Aortic Root Diameter MM 3.6 cm MV E Point Septal Separation 0.7 cm AV Cusp Separation MM 2.7 cm DOPPLER AV Peak Velocity 162.2 cm/s AV Peak Gradient 10.5 mmHg MV Area PHT 3.0 cm??? Mitral E Point Velocity 112.3 cm/s Mitral A Point Velocity 148.0 cm/s Mitral E to A Ratio 0.8 MV Deceleration Time 252.8 ms MV E' Velocity 7.6 cm/s Mitral E to MV E' Ratio 14.8 TR Peak Velocity 295.1 cm/s TR Peak Gradient 34.8 mmHg Right Ventricular Systolic Press 39.1 mmHg FINDINGS Left Ventricle Left ventricular ejection fraction is estimated at 55-60 %. Left ventricular cavity size normal. Mildly increased septal wall thickness. Mildly increased posterior wall thickness. Right Ventricle Normal right ventricular size. Mild pulmonary hypertension. Right Atrium Right atrium not well visualized. Left Atrium Moderately increased left atrial diameter. Mitral Valve Structurally normal mitral valve. No mitral stenosis, regurgitation or prolapse. Aortic Valve Aortic valve not well visualized. Tricuspid Valve Structurally normal tricuspid valve. Mild tricuspid regurgitation. Pulmonic Valve Pulmonic valve not well visualized. Pericardium No pericardial effusion. Aorta Normal size aortic root and proximal ascending aorta. CONCLUSIONS Normal LV function Previewed by: Dr. Daniel Meza MD (Electronically Signed) Final Date: 25 October 2023 11:21
[2023-10-25 11:28] LABS: Glucose,Whole Blood 289 mg/dL (70-110)
--- NOTE | 2023-10-25 12:58 | P.PN ---
Subjective HISTORY OF PRESENT ILLNESS: HPI: Patient is a pleasant 83-year-old female who presented to the hospital with complaints of shortness of breath, cough, congestion, weakness, and heart fluttering. Pertinent past medical history includes atrial fibrillation, diabetes, hypertension, and memory impairment. Patient states that she was having shortness of breath at home. She was also having a cough with chest congestion and overall not feeling good. She presented to the ER for evaluation. Upon arrival the patient was found to be in atrial fibrillation with rapid ventricular response. She was started on a Cardizem drip, and quickly converted to normal sinus rhythm. Chest x-ray completed in the emergency department was not necessarily indicative of pneumonia, but was suspicious for bronchitis. X-ray that was completed again today does begin to show possible patchy peripheral basilar opacities which could be developing infiltrates consistent with pneumonia. Patient on the monitor at this time is normal sinus rhythm. She is otherwise denying chest pain, heart palpitations, dizziness, and near syncopal symptoms. REVIEW OF LABS, ECG & MEDICAL DATA: LABS: White count 3.6, hemoglobin 11.9, platelet is 154, sodium 138, potassium 4.6, BUN 7, creatinine 0.49, lactic acid 5.6, calcium 8.1, magnesium 1.6, trop onin less than 0.012, BNP 70, TSH 0.531 EKG: EKG dated 10/22/2023 shows atrial fibrillation with rapid ventricular response. EKG dated 10/23/2023 shows normal sinus rhythm with sinus arrhythmia. IMAGING: Chest x-ray dated 10/22/2023 demonstrates COPD, either a prominent component of chronic bronchitis versus superimposed acute bronchitis, clinically correlate, no focal infiltrates seen, chronic full-thickness rotator cuff tears on both sides, re-tear on the left. Chest x-ray dated 10/23/2023 demonstrates limited by hypoventilatory changes, there is some patchy peripheral basilar opacities, unable to exclude developing infiltrates. VITALS: Temp 97.8, pulse 91, respirations 24, blood pressure 138/76, O2 saturation 93% on room air 10/24/2023 Patient examined this morning in the emergency room. Patient currently denies chest pain or pressure. She reports mild shortness of breath. Bedside telemetry reveals atrial fibrillation with a heart rate between [id number]. She is currently on 180 mg of Cardizem daily. She is anticoagulated with Eliquis. 10/25/2023 Patient examined this morning at the bedside. Patient denies chest pain or pressure. She reports mild shortness of breath. She has audible wheezing at the time of examination. Telemetry reveals sinus mechanism with a heart rate in the 90s. Blood pressure is elevated with a systolic in the 150s. Echoc ardiogram completed revealing ejection fraction 55-60%, mild pulmonary hypertension, mild tricuspid regurgitation. PHYSICAL EXAM: VITAL SIGNS: Reviewed. GENERAL: Well-developed in no acute distress. NECK: Supple. No JVD or thyromegaly LUNGS: Respirations even and unlabored. Lungs with expiratory wheezing noted HEART: Regular rate and rhythm. S1 and S2 heard. EXTREMITIES: Normal range of motion. No clubbing or cyanosis. Peripheral pulses intact. Trace bilateral lower extremity edema ASSESSMENT: Shortness of breath Acute asthma exacerbation with possible pneumonia Paroxysmal atrial fibrillation, currently maintaining sinus mechanism Hypertension Hyperlipidemia Diabetes PLAN: Continue current cardiac medications Increase Cardizem CD to 360 mg daily for optimal heart rate and blood pressure control Continue telemetry monitoring Further recommendations pending patient's course Nurse practitioner note has been reviewed by physician. Signing provider agrees with the documented findings, assessment, and plan of care. Objective - Vital Signs Vital signs: Vital Signs Temp 97.8 F 10/25/23 12:00 Pulse 98 10/25/23 12:00 Resp 24 10/25/23 12:00 BP 158/82 10/25/23 12:00 Pulse Ox 95 10/25/23 12:00 FiO2 Intake & Output 10/24/23 10/25/23 10/25/23 18:59 06:59 18:59 Intake Total 800 0 Output Total 700 1800 Balance 800 -700 -1800 Weight 98.5 kg Intake: IV 800 Sodium Chloride 0.9% 1, 800 000 ml @ 100 mls/hr IV . Q10H [facility] Rx#:[id number] Oral 0 Output: Urine 700 1800 Other: Voiding Method External Catheter External Catheter # Voids 3 - Labs CBC & Chem 7: 10/24/23 06:20 10/24/23 06:20 Labs: Abnormal Lab Results - Last 24 Hours (Table) 10/24/23 10/24/23 10/24/23 Range/Units 12:47 15:36 16:54 POC Glucose (mg/dL) 428 H (70-110) mg/dL Plasma Lactic Acid Victor Hugo 6.0 H* 6.1 H* (0.7-2.0) mmol/L 10/24/23 10/24/23 10/24/23 Range/Units 18:20 20:49 21:20 POC Glucose (mg/dL) 338 H (70-110) mg/dL Plasma Lactic Acid Victor Hugo 7.7 H* 5.5 H* (0.7-2.0) mmol/L 10/25/23 10/25/23 10/25/23 Range/Units 00:10 03:47 06:07 POC Glucose (mg/dL) 339 H (70-110) mg/dL Plasma Lactic Acid Victor Hugo 5.7 H* 3.9 H* (0.7-2.0) mmol/L 10/25/23 10/25/23 10/25/23 Range/Units 07:08 10:33 11:25 POC Glucose (mg/dL) 289 H (70-110) mg/dL Plasma Lactic Acid Victor Hugo 3.2 H* 5.6 H* (0.7-2.0) mmol/L Microbiology - Last 24 Hours (Table) 10/23/23 01:00 Blood Culture - Preliminary Blood 10/23/23 00:45 Blood Culture - Preliminary Blood
--- NOTE | 2023-10-25 15:49 | CDI ---
Documentation Clarification Form Date: From: Mona Van Phone: [phone] Admit Date: 10/22/2023 11:07:00 PM Patient Name: Flores Chadwick Visit Number: [id number] Discharge Date: ATTENTION: The Clinical Documentation Specialists (CDI) and [facility] Coding Staff appreciate your assistance in clarifying documentation. Please respond to the clarification below the line at the bottom and electronically sign. The CDI & [facility] Coding staff will review the response and follow-up if needed. Please note: Queries are made part of the Legal Health Record. If you have any questions, please contact the author of this message via ITS. Dr. Austin E Sheet Your patient has an abnormal lab value: Lactic Acid 2.9 on admission. Please clarify if there is an additional diagnosis and/or clinical significance related to this value. History/Risk Factors: "83 years old female with past medical history of asthma, presents because signs symptoms of dyspnea, cough and congestion and exertional shortness of breath" - Per Progress Note on 10/24 Clinical indicators: "Lactic acid elevated could be multifactorial secondary to infection, steroid use, hypoxia" - Per Progress Note on 10/24 Lactic Acid: 10/22 - 2.9 10/23 - 4.0, 4.2, 5.6, 3.9, 6.6, 5.1 10/24 - 4.8, 3.5, 4.7, 6.0, 6.1, 7.7, 5.5 10/25 - 5.7, 3.9, 3.2, 5.6, 6.4 Treatment: Per Progress Note on 10/24 "antibiotics Zithromax Rocephin Continuous oh Medrol 60 mg IV fluid" Is there an additional diagnosis and/or clinical significance related to the above lab result/information? [ ] Lactic Acidosis [ ] No additional diagnosis/Not clinically significant [ ] Other, please specify [ ] Unable to determine pt has lactic acidemia , rather than lactic adidosis MTDD
--- NOTE | 2023-10-25 16:02 | CDI ---
Documentation Clarification Form Date: From: Mona Van Phone: [phone] Admit Date: 10/22/2023 11:07:00 PM Patient Name: Flores Chadwick Visit Number: [id number] Discharge Date: ATTENTION: The Clinical Documentation Specialists (CDI) and [facility] Coding Staff appreciate your assistance in clarifying documentation. Please respond to the clarification below the line at the bottom and electronically sign. The CDI & [facility] Coding staff will review the response and follow-up if needed. Please note: Queries are made part of the Legal Health Record. If you have any questions, please contact the author of this message via ITS. Dr. Austin E Sheet The patient has increased lactic acid on admission, a heart rate of 116 and a respiratory rate of 24. Based on this information and the findings below, is there an additional diagnosis that is clinically appropriate for this patient? History/Risk Factors: "83 years old female with past medical history of asthma, presents because signs symptoms of dyspnea, cough and congestion and exertional shortness of breath" - Per Progress Note on 10/24 Clinical Indicators: "chest x-ray showed cardiomegaly with increase atelectasis versus early infiltrate in the lower lung suspicious for pneumonia" "Lactic acid elevated could be multifactorial secondary to infection, steroid use, hypoxia" "A. fib and RVR" "Acute asthma exacerbation" - Per Progress Note on 10/24 WBC: 10/22 - 3.6, 10/24 8.2 Lactic acid: 10/22 - 2.9 10/23 - 4.0, 4.2, 5.6, 3.9, 6.6, 5.1 10/24 - 4.8, 3.5, 4.7, 6.0, 6.1, 7.7, 5.5 10/25 - 5.7, 3.9, 3.2, 5.6, 6.4 Blood cultures: Drawn 10/23 - "No Growth after 48 Hours" on 10/25 Vitals signs: 10/22: Temp. 98.0, HR 116, RR 24, BP 144/74, O2 96% on Room Air Treatment: "Patient is started on IV antibiotics Zithromax and ceftriaxone and obvious on Medrol 60 mg and to treat transiently with IV hydration" - Per Progress Note on 10/24 Is there an additional diagnosis that is clinically appropriate for this patient? [ ] Sepsis, present on admission [ x ] Sepsis ruled out [ ] Other, please specify [ ] Unable to determine SIRS Criteria: 2 or more of the following may indicate SIRS Temperature < 96.8F (36C) or > 101.0F (38.3C) Heart Rate > 90 bpm Respiratory Rate > 20 breaths/min or PaCO2 < 32 mmHg White Blood Cell Count > 12,000 or < 4,000 cells/mm3 or > 10% bands MTDD
--- NOTE | 2023-10-25 16:04 | P.PN ---
Subjective Progress Note Date: 10/25/23 Principal diagnosis: Shortness of breath. This is an 83-year-old female with history of asthma, chronic atrial fibrillation, nonsmoker, history of hypertension and type 2 diabetes, patient presented to the ER today with 1 week history of cough wheezing shortness of breath, congestion, and feels that the heart is fluttering. Upon her initial evaluation in the ER, patient was noted to be in atrial fibrillation with RVR, patient was started on Cardizem drip, and shortly after the patient converted to normal sinus rhythm. Chest x-ray showed evidence of prominence of the pulmonary vasculature, possible bronchitis finding, no clear-cut evidence of pneumonia. Patient was already seen by cardiology on consultation, and the recommendation was to continue her diltiazem, and to make sure that the patient is on eliquis 5 mg twice a day. When I evaluated the patient in the ER, I reviewed the chest x- ray, hence I recommended Lasix 40 mg IV push, although I'm not quite convinced that the patient has congestive heart failure and also recommended bronchodilators for what seems to be a picture of cough wheezing shortness of breath/acute asthma exacerbation. I also recommended admission and further follow-up. CBC in the ER was noted to be normal basic metabolic profile was normal blood sugar was elevated at 327, lactic acid was elevated at 5.6, BNP level was normal, COVID-19 screening was negative according to the patient she always had a chronic cough. Progress note dated 10/24/2023. 83-year-old female seen in the emergency department, room 19. She was admitted with a diagnosis of atrial fibrillation with RVR, and possible pneumonia. She does have a history of asthma, chronic atrial fibrillation, hypertension, type 2 diabetes. The patient's currently on room air. She's not receiving any IV fluids. She states that she feels much better than when she first came into the hospital. She was seen yesterday in consultation. Currently labs white count 8.2, hemoglobin 11.6, hematocrit 34.8, and a platelet count of 176,000. Sodium 136, potassium 4, chlorides 102, CO2 22, anion gap 12, BUN 10, creatinine 0.48. Lactic acid levels were 5.1, 4.8, and most recently 3.5. N-terminal proBNP was 952. Chest x-ray is not overly impressive, but does suggest the possibility of some atelectasis or infiltrates. The patient continues on azithromycin and Rocephin. Progress note dated 10/25/2023. 83-year-old female seen in room 357. The patient is currently not on any supplemental oxygen. She's getting saline at 50 mL an hour. She states that she feels like her breathing is much improved. She was initially admitted with a diagnosis of atrial fibrillation with RVR, and possible pneumonia. She does have a history of asthma, chronic atrial fibrillation, hypertension, and type 2 diabetes. Labs today include a lactic acid of 6.4. Objective - Vital Signs Vital signs: Vital Signs Temp 97.8 F 10/25/23 12:00 Pulse 100 10/25/23 15:34 Resp 24 10/25/23 12:00 BP 158/82 10/25/23 12:00 Pulse Ox 95 10/25/23 12:00 FiO2 Intake & Output 10/24/23 10/25/23 10/25/23 18:59 06:59 18:59 Intake Total 800 0 Output Total 700 1800 Balance 800 -700 -1800 Weight 98.5 kg Intake: IV 800 Sodium Chloride 0.9% 1, 800 000 ml @ 100 mls/hr IV . Q10H [facility] Rx#:[id number] Oral 0 Output: Urine 700 1800 Other: Voiding Method External Catheter External Catheter # Voids 3 - Exam No acute distress, oriented 3. No respiratory distress. Currently on room air. HEENT examination is grossly unremarkable. Mucous membranes are moist. No oral lesions. Neck supple. Full range of motion. No adenopathy thyromegaly or neck vein distention. Cardiovascular examination reveals regular rhythm rate. S1-S2 normal. No S3 or S4. No discernible murmur noted. Heart rate 100 bpm. Lungs reveal minimal scattered rhonchi. No wheezes. No crackles. Breath sounds equal. Room air saturation 95%. Abdomen soft bowel sounds are heard. No masses or tenderness. Extremities are intact. No cyanosis clubbing or edema. Skin is without rash or lesion. Neurologic examination is brief but nonfocal. - Labs CBC & Chem 7: 10/24/23 06:20 10/24/23 06:20 Labs: Abnormal Lab Results - Last 24 Hours (Table) 10/24/23 10/24/23 10/24/23 Range/Units 15:36 16:54 18:20 POC Glucose (mg/dL) 428 H (70-110) mg/dL Plasma Lactic Acid Victor Hugo 6.1 H* 7.7 H* (0.7-2.0) mmol/L 10/24/23 10/24/23 10/25/23 Range/Units 20:49 21:20 00:10 POC Glucose (mg/dL) 338 H (70-110) mg/dL Plasma Lactic Acid Victor Hugo 5.5 H* 5.7 H* (0.7-2.0) mmol/L 10/25/23 10/25/23 10/25/23 Range/Units 03:47 06:07 07:08 POC Glucose (mg/dL) 339 H (70-110) mg/dL Plasma Lactic Acid Victor Hugo 3.9 H* 3.2 H* (0.7-2.0) mmol/L 10/25/23 10/25/23 10/25/23 Range/Units 10:33 11:25 14:15 POC Glucose (mg/dL) 289 H (70-110) mg/dL Plasma Lactic Acid Victor Hugo 5.6 H* 6.4 H* (0.7-2.0) mmol/L Microbiology - Last 24 Hours (Table) 10/23/23 01:00 Blood Culture - Preliminary Blood 10/23/23 00:45 Blood Culture - Preliminary Blood Assessment and Plan Assessment: Shortness of breath, multifactorial, in part related to atrial fibrillation with RVR, acute asthma exacerbation, and possible pneumonia. History of chronic atrial fibrillation. History of chronic bronchial asthma. History of cough variant asthma. Type 2 diabetes mellitus. Benign essential hypertension. Lifelong nonsmoker. Plan: Plan dated 10/24/2023. The patient continues on azithromycin and Rocephin. In addition, the patient's receiving breathing treatments, and corticosteroids. Additional recommendations and suggestions are forthcoming. Clinically, the patient looks pretty well. She is laying in bed, without any supplemental oxygen. She's not describing any difficulty breathing, and she does feel better than when she first came into the hospital. We will continue to follow make recommendations along the way. Prognosis is guarded. Plan dated 10/25/2023. The patient continues on antibiotics. I will check a pro-calcitonin level. She's not on any supplemental oxygen. She clinically looks stable. On examination, she does have diffuse bilateral rhonchi. Breath sounds are otherwise equal. We will continue to follow make recommendations on the way. Labs are reviewed. As mentioned, her lactic acid is 6.4. Solu-Medrol can be changed to prednisone. She continues only on Rocephin. Time with Patient: Less than 30
[2023-10-25 16:54] LABS: Glucose,Whole Blood 381 mg/dL (70-110)
[2023-10-25 20:56] LABS: Glucose,Whole Blood 271 mg/dL (70-110)
[2023-10-25] MEDS: INSULIN DETEMIR (LEVEMIR) 100 UNIT/ML SYR SQ SCH (21:20)
[2023-10-25] MEDS: MONTELUKAST 10 MG TAB PO SCH (21:21)
[2023-10-25] MEDS: FERROUS SULFATE 325 MG TAB PO SCH (21:21)
[2023-10-25] MEDS: LORATADINE 10 MG TAB PO SCH (21:21)
--- NOTE | 2023-10-25 23:49 | P.PN ---
Subjective This is a pleasant 83 years old female with past medical history of asthma, presents because signs symptoms of dyspnea, cough and congestion and exertional shortness of breath She was admitted with a diagnosis with acute asthma exacerbation, chest x-ray showed cardiomegaly with increase atelectasis versus early infiltrate in the lower lung suspicious for pneumonia. Patient is started on IV antibiotics Zithromax and ceftriaxone and obvious on Medrol 60 mg and to treat transiently with IV hydration which is stopped bowel. Patient today feels better Cough is better, dyspnea is better with no chest pain Hemodynamically stable. WBCs 3.6, creatinine 0.49 Lactic acid elevated could be multifactorial secondary to infection, steroid use, hypoxia, TSH 0.53, troponin is negative less than 0.012. ProBNP 70. Covid is negative Chest x-ray showing both bronchitis with bilateral tear. Repeat chest x-ray showing some patchy infiltrates which cannot exclude earlier developing infiltrate CT of the abdomen and pelvis showed soft tissue mass 2.7 cm below the left nipple. Recommend 11/04/2023 patient is still tachypneic, improving slowly and gradually She is mildly tachycardic Oxygen Saturating well Patient lying in bed most of the time with no exertional dyspnea Patient informed about mass in her left breast and recommended outpatient follow-up patient verbalized understanding and acceptance with the risk including but not limited to cancer explained to her. Patient agrees to follow up outpatient. Patient breathing is also improving. She's continued on Zithromax and Rocephin, also her steroids were switched from IV symmetrical 6 mg down to prednisone 30 mg daily, this might affect her lactic acid which is thought could be secondary to steroid effect. She is not on IV fluids. Continued on Eliquis 5 mg Continue with insulin with closed monitoring of glucose. Cardizem dose increased today to 360 Review of systems CONSTITUTIONAL: No fever, no malaise, no fatigue. HEENT: No recent visual problems or hearing problems. Denied any sore throat. CARDIOVASCULAR: No orthopnea, PND, no palpitations, no syncope. GASTROINTESTINAL: No diarrhea, no nausea, no vomiting, no abdominal pain. Normoa ctive bowel sounds. NEUROLOGICAL: No headaches, no weakness, no numbness. HEMATOLOGICAL: Denies any bleeding or petechiae. Active Medications Generic Name Dose Route Start Last Admin Trade Name Freq PRN Reason Stop Dose Admin Acetaminophen 650 mg 01/07/24 08:56 Acetaminophen Tab 325 Mg Tab PO Q6HR PRN Fever and/ or Pain Albuterol/Ipratropium 3 ml 10/22/23 22:57 10/25/23 15:21 Ipratropium-Albuterol 3 Ml Neb INHALATION 3 ml RT-Q4H PRN Administration shortness of breath Apixaban 5 mg 10/23/23 09:00 10/25/23 21:21 Apixaban 5 Mg Tab PO 5 mg BID MARGOTH Administration Protocol Atorvastatin Calcium 40 mg 10/23/23 09:00 10/25/23 08:49 Atorvastatin 40 Mg Tab PO 40 mg DAILY MARGOTH Administration Dextrose/Water 25 ml 10/23/23 08:56 Dextrose 50% Syringe 50 Ml IVP PER PROTOCOL PRN Hypoglycemia Protocol Dextrose/Water 50 ml 10/23/23 08:56 Dextrose 50% Syringe 50 Ml IVP PER PROTOCOL PRN Hypoglycemia Protocol Diltiazem HCl 360 mg 10/26/23 09:00 Diltiazem Cd 180 Mg Cap.Er.24h PO DAILY MARGOTH Escitalopram Oxalate 20 mg 10/24/23 09:00 10/25/23 08:43 Escitalopram 20 Mg Tab PO 20 mg DAILY MARGOTH Administration Ferrous Sulfate 325 mg 10/23/23 21:00 10/25/23 21:21 Ferrous Sulfate 325 Mg Tab PO 325 mg HS MARGOTH Administration Sodium Chloride 1,000 mls @ 100 mls/hr 10/22/23 23:00 10/25/23 21:21 Saline 0.9% IV 100 mls/hr .Q10H MARGOTH Administration Ceftriaxone Sodium 2 gm/ 50 mls @ 100 mls/hr 10/23/23 22:00 10/25/23 21:24 Sodium Chloride IVPB 10/26/23 22:29 100 mls/hr Q24H MARGOTH Administration Protocol Insulin Aspart 0 unit 10/23/23 12:30 10/25/23 21:21 Insulin Aspart (Novolog) 100 Unit/Ml Vial SQ 6 unit ACHS MARGOTH Administration Protocol Insulin Detemir 22 unit 10/24/23 21:00 10/25/23 21:20 Insulin Detemir (Levemir) 100 Unit/Ml Syr SQ 22 unit HS MARGOTH Administration Levothyroxine Sodium 12.5 mcg 10/23/23 09:00 10/25/23 06:32 Levothyroxine 25 Mcg Tab PO 12.5 mcg [id number] MARGOTH Administration Loratadine 10 mg 10/23/23 21:00 10/25/23 21:21 Loratadine 10 Mg Tab PO 10 mg HS MARGOTH Administration Miscellaneous Information 1 each 10/22/23 22:52 Pneumonia Protocol Utilized 1 Each Misc PO ONCE PRN Per Protocol Montelukast Sodium 10 mg 10/23/23 21:00 10/25/23 21:21 Montelukast 10 Mg Tab PO 10 mg HS MARGOTH Administration Ondansetron HCl 4 mg 10/23/23 08:56 Ondansetron 4 Mg/2 Ml Vial IVP Q6HR PRN Nausea And Vomiting Pantoprazole Sodium 40 mg 10/24/23 07:30 10/25/23 06:32 Pantoprazole 40 Mg Tablet PO 40 mg [id number] MARGOTH Administration Prednisone 30 mg 10/26/23 09:00 Prednisone 10 Mg Tab PO DAILY MARGOTH Objective - Vital Signs Vital signs: Vital Signs Temp 97.8 F 10/25/23 12:00 Pulse 100 10/25/23 15:34 Resp 24 10/25/23 12:00 BP 158/82 10/25/23 12:00 Pulse Ox 95 10/25/23 12:00 FiO2 Intake & Output 10/24/23 10/25/23 10/25/23 18:59 06:59 18:59 Intake Total 800 0 Output Total 700 1800 Balance 800 -700 -1800 Weight 98.5 kg Intake: IV 800 Sodium Chloride 0.9% 1, 800 000 ml @ 100 mls/hr IV . Q10H [facility] Rx#:[id number] Oral 0 Output: Urine 700 1800 Other: Voiding Method External Catheter External Catheter # Voids 3 - Exam GENERAL: The patient is alert and oriented x3, not in any acute distress. Well developed, well nourished. HEENT: Pupils are round and equally reacting to light. EOMI. No scleral icterus. No conjunctival pallor. Normocephalic, atraumatic. No pharyngeal erythema. No thyromegaly. CARDIOVASCULAR: S1 and S2 present. No murmurs, rubs, or gallops. PULMONARY: Chest is clear to auscultation, no wheezing , no crackles. ABDOMEN: Soft, nontender, nondistended, normoactive bowel sounds. No palpable organomegaly. MUSCULOSKELETAL: No joint swelling or deformity. EXTREMITIES: No cyanosis, clubbing, or pedal edema. NEUROLOGICAL: Gross neurological examination did not reveal any focal deficits. SKIN: No rashes. no petechiae. - Labs CBC & Chem 7: 10/24/23 06:20 10/24/23 06:20 Labs: Abnormal Lab Results - Last 24 Hours (Table) 10/24/23 10/24/23 10/24/23 Range/Units 15:36 16:54 18:20 POC Glucose (mg/dL) 428 H (70-110) mg/dL Plasma Lactic Acid Victor Hugo 6.1 H* 7.7 H* (0.7-2.0) mmol/L 10/24/23 10/24/23 10/25/23 Range/Units 20:49 21:20 00:10 POC Glucose (mg/dL) 338 H (70-110) mg/dL Plasma Lactic Acid Victor Hugo 5.5 H* 5.7 H* (0.7-2.0) mmol/L 10/25/23 10/25/23 10/25/23 Range/Units 03:47 06:07 07:08 POC Glucose (mg/dL) 339 H (70-110) mg/dL Plasma Lactic Acid Victor Hugo 3.9 H* 3.2 H* (0.7-2.0) mmol/L 10/25/23 10/25/23 10/25/23 Range/Units 10:33 11:25 14:15 POC Glucose (mg/dL) 289 H (70-110) mg/dL Plasma Lactic Acid Victor Hugo 5.6 H* 6.4 H* (0.7-2.0) mmol/L Microbiology - Last 24 Hours (Table) 10/23/23 01:00 Blood Culture - Preliminary Blood 10/23/23 00:45 Blood Culture - Preliminary Blood Assessment and Plan Assessment: Acute asthma exacerbation Possible early infiltrate and suspected pneumonia A. fib and RVR 2.7 cm mass behind the left nipple. Hypertension Diabetes mellitus with hyperglycemia Elevated lactic acid Acute COPD exacerbation Plan: The antibiotics Zithromax Rocephin Continuous on a prednisone 30 mg IV fluid discontinued Continue with Eliquis Cardiology and pulmonary consult Start insulin levemir and NovoLog with meals, patient informed and he agrees Patient informed about her left nipple mass and recommended outpatient follow-up with PCP and general surgeon Dr. Zelaya in one week and she agrees Labs and medication were reviewed.. Continue same treatment. Continue with symptomatic treatment. Resume home medication. Monitor labs and vitals. DVT and GI prophylaxis. Further recommendations as per clinical course of the patient DVT prophylaxis: eliquis GI Prophylaxis: Pepcid PT/OT: Pending Prognosis is guarded
[2023-10-26 06:07] LABS: Glucose,Whole Blood 198 mg/dL (70-110)
[2023-10-26] MEDS: INSULIN ASPART (NovoLOG) 100 UNIT/ML VIAL SQ SCH ×4 (06:18→20:46)
[2023-10-26] MEDS: LEVOTHYROXINE 25 MCG TAB PO SCH (06:18)
[2023-10-26] MEDS: PANTOPRAZOLE 40 MG TABLET PO SCH (06:18)
[2023-10-26] MEDS: SODIUM CHLORIDE 0.9% 1,000 ML IV SCH ×2 (06:19→17:03)
[2023-10-26] MEDS: IPRATROPIUM-ALBUTEROL 3 ML NEB INHALATION PRN ×4 (07:46→21:12)
[2023-10-26] MEDS: ESCITALOPRAM 20 MG TAB PO SCH (09:52)
[2023-10-26] MEDS: predniSONE 10 MG TAB PO SCH (09:52)
[2023-10-26] MEDS: APIXABAN 5 MG TAB PO SCH ×2 (09:52→19:47)
[2023-10-26] MEDS: ATORVASTATIN 40 MG TAB PO SCH (09:52)
[2023-10-26] MEDS: DILTIAZEM CD 180 MG CAP.ER.24H PO SCH (09:52)
--- NOTE | 2023-10-26 11:46 | P.PN ---
Subjective HISTORY OF PRESENT ILLNESS: HPI: Patient is a pleasant 83-year-old female who presented to the hospital with complaints of shortness of breath, cough, congestion, weakness, and heart fluttering. Pertinent past medical history includes atrial fibrillation, diabetes, hypertension, and memory impairment. Patient states that she was having shortness of breath at home. She was also having a cough with chest congestion and overall not feeling good. She presented to the ER for evaluation. Upon arrival the patient was found to be in atrial fibrillation with rapid ventricular response. She was started on a Cardizem drip, and quickly converted to normal sinus rhythm. Chest x-ray completed in the emergency department was not necessarily indicative of pneumonia, but was suspicious for bronchitis. X-ray that was completed again today does begin to show possible patchy peripheral basilar opacities which could be developing infiltrates consistent with pneumonia. Patient on the monitor at this time is normal sinus rhythm. She is otherwise denying chest pain, heart palpitations, dizziness, and near syncopal symptoms. REVIEW OF LABS, ECG & MEDICAL DATA: LABS: White count 3.6, hemoglobin 11.9, platelet is 154, sodium 138, potassium 4.6, BUN 7, creatinine 0.49, lactic acid 5.6, calcium 8.1, magnesium 1.6, trop onin less than 0.012, BNP 70, TSH 0.531 EKG: EKG dated 10/22/2023 shows atrial fibrillation with rapid ventricular response. EKG dated 10/23/2023 shows normal sinus rhythm with sinus arrhythmia. IMAGING: Chest x-ray dated 10/22/2023 demonstrates COPD, either a prominent component of chronic bronchitis versus superimposed acute bronchitis, clinically correlate, no focal infiltrates seen, chronic full-thickness rotator cuff tears on both sides, re-tear on the left. Chest x-ray dated 10/23/2023 demonstrates limited by hypoventilatory changes, there is some patchy peripheral basilar opacities, unable to exclude developing infiltrates. VITALS: Temp 97.8, pulse 91, respirations 24, blood pressure 138/76, O2 saturation 93% on room air 10/24/2023 Patient examined this morning in the emergency room. Patient currently denies chest pain or pressure. She reports mild shortness of breath. Bedside telemetry reveals atrial fibrillation with a heart rate between [id number]. She is currently on 180 mg of Cardizem daily. She is anticoagulated with Eliquis. 10/25/2023 Patient examined this morning at the bedside. Patient denies chest pain or pressure. She reports mild shortness of breath. She has audible wheezing at the time of examination. Telemetry reveals sinus mechanism with a heart rate in the 90s. Blood pressure is elevated with a systolic in the 150s. Echoc ardiogram completed revealing ejection fraction 55-60%, mild pulmonary hypertension, mild tricuspid regurgitation. 10/26/2023 Patient examined this morning at the bedside. Patient denies chest pain or pressure. She reports mild shortness of breath. Telemetry reveals sinus mechanism with PACs with a heart rate in the 90s. Blood pressure remains elevated with a systolic in the 150s. PHYSICAL EXAM: VITAL SIGNS: Reviewed. GENERAL: Well-developed in no acute distress. NECK: Supple. No JVD or thyromegaly LUNGS: Respirations even and unlabored. Lungs with expiratory wheezing and rhonchi noted HEART: Regular rate and rhythm. S1 and S2 heard. EXTREMITIES: Normal range of motion. No clubbing or cyanosis. Peripheral pulses intact. Trace bilateral lower extremity edema ASSESSMENT: Shortness of breath Acute asthma exacerbation with possible pneumonia Paroxysmal atrial fibrillation, currently maintaining sinus mechanism Hypertension Hyperlipidemia Diabetes PLAN: Continue current cardiac medications Cardizem increased yesterday for optimal heart rate and blood pressure control Add losartan 25 mg daily. Continue to monitor blood pressure Continue telemetry monitoring Further recommendations pending patient's course Nurse practitioner note has been reviewed by physician. Signing provider agrees with the documented findings, assessment, and plan of care. Objective - Vital Signs Vital signs: Vital Signs Temp 97.8 F 10/26/23 09:40 Pulse 85 10/26/23 11:03 Resp 22 10/26/23 09:40 BP 151/72 10/26/23 09:40 Pulse Ox 94 L 10/26/23 09:40 FiO2 Intake & Output 10/25/23 10/26/23 10/26/23 18:59 06:59 18:59 Output Total 2600 2300 Balance -2600 -2300 Output: Urine 2600 2300 Other: Voiding Method External Catheter External Catheter - Labs CBC & Chem 7: 10/24/23 06:20 10/24/23 06:20 Labs: Abnormal Lab Results - Last 24 Hours (Table) 10/25/23 10/25/23 10/25/23 Range/Units 10:33 14:15 16:51 POC Glucose (mg/dL) 381 H (70-110) mg/dL Plasma Lactic Acid Victor Hugo 5.6 H* 6.4 H* (0.7-2.0) mmol/L 10/25/23 10/25/23 10/25/23 Range/Units 17:29 20:55 21:11 POC Glucose (mg/dL) 271 H (70-110) mg/dL Plasma Lactic Acid Victor Hugo 5.6 H* 4.5 H* (0.7-2.0) mmol/L 10/26/23 10/26/23 10/26/23 Range/Units 01:10 04:00 06:05 POC Glucose (mg/dL) 198 H (70-110) mg/dL Plasma Lactic Acid Victor Hugo 3.5 H* 2.1 H* (0.7-2.0) mmol/L Microbiology - Last 24 Hours (Table) 10/23/23 01:00 Blood Culture - Preliminary Blood 10/23/23 00:45 Blood Culture - Preliminary Blood
[2023-10-26 12:07] LABS: Glucose,Whole Blood 281 mg/dL (70-110)
[2023-10-26] MEDS: LOSARTAN 25 MG TAB PO SCH (13:05)
--- NOTE | 2023-10-26 13:44 | P.PN ---
Subjective Progress Note Date: 10/26/23 Principal diagnosis: Shortness of breath. This is an 83-year-old female with history of asthma, chronic atrial fibrillation, nonsmoker, history of hypertension and type 2 diabetes, patient presented to the ER today with 1 week history of cough wheezing shortness of breath, congestion, and feels that the heart is fluttering. Upon her initial evaluation in the ER, patient was noted to be in atrial fibrillation with RVR, patient was started on Cardizem drip, and shortly after the patient converted to normal sinus rhythm. Chest x-ray showed evidence of prominence of the pulmonary vasculature, possible bronchitis finding, no clear-cut evidence of pneumonia. Patient was already seen by cardiology on consultation, and the recommendation was to continue her diltiazem, and to make sure that the patient is on eliquis 5 mg twice a day. When I evaluated the patient in the ER, I reviewed the chest x- ray, hence I recommended Lasix 40 mg IV push, although I'm not quite convinced that the patient has congestive heart failure and also recommended bronchodilators for what seems to be a picture of cough wheezing shortness of breath/acute asthma exacerbation. I also recommended admission and further follow-up. CBC in the ER was noted to be normal basic metabolic profile was normal blood sugar was elevated at 327, lactic acid was elevated at 5.6, BNP level was normal, COVID-19 screening was negative according to the patient she always had a chronic cough. Progress note dated 10/24/2023. 83-year-old female seen in the emergency department, room 19. She was admitted with a diagnosis of atrial fibrillation with RVR, and possible pneumonia. She does have a history of asthma, chronic atrial fibrillation, hypertension, type 2 diabetes. The patient's currently on room air. She's not receiving any IV fluids. She states that she feels much better than when she first came into the hospital. She was seen yesterday in consultation. Currently labs white count 8.2, hemoglobin 11.6, hematocrit 34.8, and a platelet count of 176,000. Sodium 136, potassium 4, chlorides 102, CO2 22, anion gap 12, BUN 10, creatinine 0.48. Lactic acid levels were 5.1, 4.8, and most recently 3.5. N-terminal proBNP was 952. Chest x-ray is not overly impressive, but does suggest the possibility of some atelectasis or infiltrates. The patient continues on azithromycin and Rocephin. Progress note dated 10/25/2023. 83-year-old female seen in room 357. The patient is currently not on any supplemental oxygen. She's getting saline at 50 mL an hour. She states that she feels like her breathing is much improved. She was initially admitted with a diagnosis of atrial fibrillation with RVR, and possible pneumonia. She does have a history of asthma, chronic atrial fibrillation, hypertension, and type 2 diabetes. Labs today include a lactic acid of 6.4. Progress note dated 10/26/2023. 83-year-old female seen today in room 357. The patient is currently on room air. She's not requiring any supplemental oxygen. She continues on saline at 50 mL an hour. Her most recent pro-calcitonin level was normal at 0.02. Antibiotics will be discontinued. She does still sounds congested. The patient will be given a flutter valve to use, and instructed in how to use it. Current laboratory data today includes a lactic acid of 1.9, and a glucose of 281. Objective - Vital Signs Vital signs: Vital Signs Temp 97.8 F 10/26/23 13:03 Pulse 95 10/26/23 13:03 Resp 22 10/26/23 13:03 BP 154/75 10/26/23 13:03 Pulse Ox 97 10/26/23 13:03 FiO2 Intake & Output 10/25/23 10/26/23 10/26/23 18:59 06:59 18:59 Intake Total 417 Output Total 2600 2300 1000 Balance -2600 -2300 -583 Intake: Oral 417 Output: Urine 2600 2300 1000 Other: Voiding Method External Catheter External Catheter External Catheter - Exam No acute distress, oriented 3. No respiratory distress. Currently on room air. HEENT examination is grossly unremarkable. Mucous membranes are moist. No oral lesions. Neck supple. Full range of motion. No adenopathy thyromegaly or neck vein distention. Cardiovascular examination reveals regular rhythm rate. S1-S2 normal. No S3 or S4. No discernible murmur noted. Heart rate 85 bpm. Lungs reveal minimal scattered rhonchi. No wheezes. No crackles. Breath sounds equal. Room air saturation 97%. Abdomen soft bowel sounds are heard. No masses or tenderness. Extremities are intact. No cyanosis clubbing or edema. Skin is without rash or lesion. Neurologic examination is brief but nonfocal. - Labs CBC & Chem 7: 10/24/23 06:20 10/24/23 06:20 Labs: Abnormal Lab Results - Last 24 Hours (Table) 10/25/23 10/25/23 10/25/23 Range/Units 14:15 16:51 17:29 POC Glucose (mg/dL) 381 H (70-110) mg/dL Plasma Lactic Acid Victor Hugo 6.4 H* 5.6 H* (0.7-2.0) mmol/L 10/25/23 10/25/23 10/26/23 Range/Units 20:55 21:11 01:10 POC Glucose (mg/dL) 271 H (70-110) mg/dL Plasma Lactic Acid Victor Hugo 4.5 H* 3.5 H* (0.7-2.0) mmol/L 10/26/23 10/26/23 10/26/23 Range/Units 04:00 06:05 12:03 POC Glucose (mg/dL) 198 H 281 H (70-110) mg/dL Plasma Lactic Acid Victor Hugo 2.1 H* (0.7-2.0) mmol/L Microbiology - Last 24 Hours (Table) 10/23/23 01:00 Blood Culture - Preliminary Blood 10/23/23 00:45 Blood Culture - Preliminary Blood Assessment and Plan Assessment: Shortness of breath, multifactorial, in part related to atrial fibrillation with RVR, acute asthma exacerbation, and possible pneumonia. History of chronic atrial fibrillation. History of chronic bronchial asthma. History of cough variant asthma. Type 2 diabetes mellitus. Benign essential hypertension. Lifelong nonsmoker. Plan: Plan dated 10/24/2023. The patient continues on azithromycin and Rocephin. In addition, the patient's receiving breathing treatments, and corticosteroids. Additional recommendations and suggestions are forthcoming. Clinically, the patient looks pretty well. She is laying in bed, without any supplemental oxygen. She's not describing any difficulty breathing, and she does feel better than when she first came into the hospital. We will continue to follow make recommendations along the way. Prognosis is guarded. Plan dated 10/25/2023. The patient continues on antibiotics. I will check a pro-calcitonin level. She's not on any supplemental oxygen. She clinically looks stable. On examination, she does have diffuse bilateral rhonchi. Breath sounds are otherwise equal. We will continue to follow make recommendations on the way. Labs are reviewed. As mentioned, her lactic acid is 6.4. Solu-Medrol can be changed to prednisone. She continues only on Rocephin. Plan dated 10/26/2023. The patient does continue to sound congested. She has a wet congested cough. We will get her a flutter valve, and teach her how to use it. In addition, her pro-calcitonin level was normal, so antibiotics are discontinued. The patient continues on room air. She does not appear to be short of breath The patient continues on saline at 50 mL an hour. Follow make recommendations along the way. Labs, x-rays, and medications are reviewed. Her pro-calcitonin level was 0.02.. Time with Patient: Less than 30
--- NOTE | 2023-10-26 14:33 | P.PN ---
Subjective Progress Note Date: 10/26/23 This is a pleasant 83 years old female with past medical history of asthma, presents because signs symptoms of dyspnea, cough and congestion and exertional shortness of breath She was admitted with a diagnosis with acute asthma exacerbation, chest x-ray showed cardiomegaly with increase atelectasis versus early infiltrate in the lower lung suspicious for pneumonia. Patient is started on IV antibiotics Zithromax and ceftriaxone and obvious on Medrol 60 mg and to treat transiently with IV hydration which is stopped bowel. Patient today feels better Cough is better, dyspnea is better with no chest pain Hemodynamically stable. WBCs 3.6, creatinine 0.49 Lactic acid elevated could be multifactorial secondary to infection, steroid use, hypoxia, TSH 0.53, troponin is negative less than 0.012. ProBNP 70. Covid is negative Chest x-ray showing both bronchitis with bilateral tear. Repeat chest x-ray showing some patchy infiltrates which cannot exclude earlier developing infiltrate CT of the abdomen and pelvis showed soft tissue mass 2.7 cm below the left nipple. Recommend 10/25/2023 patient is still tachypneic, improving slowly and gradually She is mildly tachycardic Oxygen Saturating well Patient lying in bed most of the time with no exertional dyspnea Patient informed about mass in her left breast and recommended outpatient follow-up patient verbalized understanding and acceptance with the risk including but not limited to cancer explained to her. Patient agrees to follow up outpatient. Patient breathing is also improving. She's continued on Zithromax and Rocephin, also her steroids were switched from IV symmetrical 6 mg down to prednisone 30 mg daily, this might affect her lactic acid which is thought could be secondary to steroid effect. She is not on IV fluids. Continued on Eliquis 5 mg Continue with insulin with closed monitoring of glucose. Cardizem dose increased today to 360 10/26. Patient seen and examined. Complaining of congestion. Gets short of breath on exertion. Vital signs stable REVIEW OF SYSTEMS: CONSTITUTIONAL: No fever, no malaise,. CARDIOVASCULAR: No chest pain, no palpitations, no syncope. PULMONARY: As mentioned above GASTROINTESTINAL: No diarrhea, no nausea, no vomiting, no abdominal pain. NEUROLOGICAL: No headaches, no weakness, PHYSICAL EXAMINATION: GENERAL: The patient is alert and oriented x3, not in any acute distress. Well developed, well nourished. HEENT: Pupils are round and equally reacting to light. EOMI. No scleral icterus. No conjunctival pallor. Normocephalic, atraumatic. No pharyngeal erythema. No thyromegaly. CARDIOVASCULAR: S1 and S2 present. No murmurs, rubs, or gallops. PULMONARY: Coarse breath sounds bilaterally, expiratory rhonchi audible ABDOMEN: Soft, nontender, nondistended, normoactive bowel sounds. No palpable organomegaly. MUSCULOSKELETAL: No joint swelling or deformity. EXTREMITIES: No cyanosis, clubbing, or pedal edema. NEUROLOGICAL: Gross neurological examination did not reveal any focal deficits. SKIN: No rashes. Assessment and plan Acute asthma exacerbation Bacterial pneumonia A. fib and RVR 2.7 cm mass behind the left nipple. Hypertension Diabetes mellitus with hyperglycemia Elevated lactic acid Acute COPD exacerbation Plan: Monitor vital signs Monitor CBC Monitor CMP Aggressive bronchopulmonary hygiene Antibiotics discontinued continue prednisone Continue with Eliquis Monitor blood sugar levels, continue sliding scale scale insulin Cardiology following Pulmonology following Labs and medication were reviewed.. Continue same treatment. Continue with symptomatic treatment. Resume home medication. Monitor labs and vitals. DVT and GI prophylaxis. Further recommendations as per clinical course of the patient Dictation was produced using [employer] dictation software. please excuse any grammatical, word or spelling errors. Objective - Vital Signs Vital signs: Vital Signs Temp 97.8 F 10/26/23 09:40 Pulse 85 10/26/23 11:03 Resp 22 10/26/23 09:40 BP 151/72 10/26/23 09:40 Pulse Ox 94 L 10/26/23 09:40 FiO2 Intake & Output 10/25/23 10/26/23 10/26/23 18:59 06:59 18:59 Output Total 2600 2300 Balance -2600 -2300 Output: Urine 2600 2300 Other: Voiding Method External Catheter External Catheter - Labs CBC & Chem 7: 10/24/23 06:20 10/24/23 06:20 Labs: Abnormal Lab Results - Last 24 Hours (Table) 10/25/23 10/25/23 10/25/23 Range/Units 10:33 11:25 14:15 POC Glucose (mg/dL) 289 H (70-110) mg/dL Plasma Lactic Acid Victor Hugo 5.6 H* 6.4 H* (0.7-2.0) mmol/L 10/25/23 10/25/23 10/25/23 Range/Units 16:51 17:29 20:55 POC Glucose (mg/dL) 381 H 271 H (70-110) mg/dL Plasma Lactic Acid Victor Hugo 5.6 H* (0.7-2.0) mmol/L 10/25/23 10/26/23 10/26/23 Range/Units 21:11 01:10 04:00 POC Glucose (mg/dL) (70-110) mg/dL Plasma Lactic Acid Victor Hugo 4.5 H* 3.5 H* 2.1 H* (0.7-2.0) mmol/L 10/26/23 Range/Units 06:05 POC Glucose (mg/dL) 198 H (70-110) mg/dL Plasma Lactic Acid Victor Hugo (0.7-2.0) mmol/L Microbiology - Last 24 Hours (Table) 10/23/23 01:00 Blood Culture - Preliminary Blood 10/23/23 00:45 Blood Culture - Preliminary Blood
[2023-10-26 16:40] LABS: Glucose,Whole Blood 240 mg/dL (70-110)
[2023-10-26] MEDS: MONTELUKAST 10 MG TAB PO SCH (19:47)
[2023-10-26] MEDS: LORATADINE 10 MG TAB PO SCH (19:47)
[2023-10-26] MEDS: FERROUS SULFATE 325 MG TAB PO SCH (19:47)
[2023-10-26 19:52] LABS: Glucose,Whole Blood 280 mg/dL (70-110)
[2023-10-26] MEDS: INSULIN DETEMIR (LEVEMIR) 100 UNIT/ML SYR SQ SCH (20:45)
[2023-10-27] MEDS ORDERED: ZINC OXIDE PASTE (Z-GUARD) 1 APPLIC TOPICAL PRN (00:54)
[2023-10-27] MEDS: SODIUM CHLORIDE 0.9% 1,000 ML IV SCH ×2 (03:31→16:50)
[2023-10-27 06:12] LABS: Glucose,Whole Blood 179 mg/dL (70-110)
[2023-10-27] MEDS: LEVOTHYROXINE 25 MCG TAB PO SCH (06:33)
[2023-10-27] MEDS: INSULIN ASPART (NovoLOG) 100 UNIT/ML VIAL SQ SCH ×4 (06:33→20:59)
[2023-10-27] MEDS: PANTOPRAZOLE 40 MG TABLET PO SCH (06:33)
[2023-10-27] MEDS: IPRATROPIUM-ALBUTEROL 3 ML NEB INHALATION PRN ×2 (08:06→11:06)
[2023-10-27] MEDS: LOSARTAN 25 MG TAB PO SCH (09:23)
[2023-10-27] MEDS: APIXABAN 5 MG TAB PO SCH ×2 (09:23→20:59)
[2023-10-27] MEDS: ATORVASTATIN 40 MG TAB PO SCH (09:23)
[2023-10-27] MEDS: DILTIAZEM CD 180 MG CAP.ER.24H PO SCH (09:23)
[2023-10-27] MEDS: predniSONE 10 MG TAB PO SCH (09:23)
[2023-10-27] MEDS: ESCITALOPRAM 20 MG TAB PO SCH (09:23)
[2023-10-27 11:37] LABS: Glucose,Whole Blood 147 mg/dL (70-110)
[2023-10-27 11:40] VITALS: BMI 37.3
--- NOTE | 2023-10-27 12:39 | P.PN ---
Subjective HISTORY OF PRESENT ILLNESS: HPI: Patient is a pleasant 83-year-old female who presented to the hospital with complaints of shortness of breath, cough, congestion, weakness, and heart fluttering. Pertinent past medical history includes atrial fibrillation, diabetes, hypertension, and memory impairment. Patient states that she was having shortness of breath at home. She was also having a cough with chest congestion and overall not feeling good. She presented to the ER for evaluation. Upon arrival the patient was found to be in atrial fibrillation with rapid ventricular response. She was started on a Cardizem drip, and quickly converted to normal sinus rhythm. Chest x-ray completed in the emergency department was not necessarily indicative of pneumonia, but was suspicious for bronchitis. X-ray that was completed again today does begin to show possible patchy peripheral basilar opacities which could be developing infiltrates consistent with pneumonia. Patient on the monitor at this time is normal sinus rhythm. She is otherwise denying chest pain, heart palpitations, dizziness, and near syncopal symptoms. REVIEW OF LABS, ECG & MEDICAL DATA: LABS: White count 3.6, hemoglobin 11.9, platelet is 154, sodium 138, potassium 4.6, BUN 7, creatinine 0.49, lactic acid 5.6, calcium 8.1, magnesium 1.6, trop onin less than 0.012, BNP 70, TSH 0.531 EKG: EKG dated 10/22/2023 shows atrial fibrillation with rapid ventricular response. EKG dated 10/23/2023 shows normal sinus rhythm with sinus arrhythmia. IMAGING: Chest x-ray dated 10/22/2023 demonstrates COPD, either a prominent component of chronic bronchitis versus superimposed acute bronchitis, clinically correlate, no focal infiltrates seen, chronic full-thickness rotator cuff tears on both sides, re-tear on the left. Chest x-ray dated 10/23/2023 demonstrates limited by hypoventilatory changes, there is some patchy peripheral basilar opacities, unable to exclude developing infiltrates. VITALS: Temp 97.8, pulse 91, respirations 24, blood pressure 138/76, O2 saturation 93% on room air 10/24/2023 Patient examined this morning in the emergency room. Patient currently denies chest pain or pressure. She reports mild shortness of breath. Bedside telemetry reveals atrial fibrillation with a heart rate between [id number]. She is currently on 180 mg of Cardizem daily. She is anticoagulated with Eliquis. 10/25/2023 Patient examined this morning at the bedside. Patient denies chest pain or pressure. She reports mild shortness of breath. She has audible wheezing at the time of examination. Telemetry reveals sinus mechanism with a heart rate in the 90s. Blood pressure is elevated with a systolic in the 150s. Echoc ardiogram completed revealing ejection fraction 55-60%, mild pulmonary hypertension, mild tricuspid regurgitation. 10/26/2023 Patient examined this morning at the bedside. Patient denies chest pain or pressure. She reports mild shortness of breath. Telemetry reveals sinus mechanism with PACs with a heart rate in the 90s. Blood pressure remains elevated with a systolic in the 150s. 10/27/2023 Patient examined this morning at the bedside. Patient currently denies chest pain or pressure. She reports mild shortness of breath. Telemetry reveals sinus mechanism with PACs. Blood pressure is stable with a systolic around 140. PHYSICAL EXAM: VITAL SIGNS: Reviewed. GENERAL: Well-developed in no acute distress. NECK: Supple. No JVD or thyromegaly LUNGS: Respirations even and unlabored. Lungs with expiratory wheezing and rhonchi noted HEART: Regular rate and rhythm. S1 and S2 heard. EXTREMITIES: Normal range of motion. No clubbing or cyanosis. Peripheral pulses intact. Trace bilateral lower extremity edema ASSESSMENT: Shortness of breath Acute asthma exacerbation with possible pneumonia Paroxysmal atrial fibrillation, currently maintaining sinus mechanism Hypertension Hyperlipidemia Diabetes PLAN: Continue current cardiac medications Continue telemetry monitoring Patient may be transferred off the cardiac stepdown unit to 4 . with telemetry monitoring Will follow on an as-needed basis. Please call with questions or concerns. Nurse practitioner note has been reviewed by physician. Signing provider agrees with the documented findings, assessment, and plan of care. Objective - Vital Signs Vital signs: Vital Signs Temp 98 F 10/27/23 12:00 Pulse 96 10/27/23 12:00 Resp 18 10/27/23 12:00 BP 162/81 10/27/23 12:00 Pulse Ox 94 L 10/27/23 12:00 FiO2 Intake & Output 10/26/23 10/27/23 10/27/23 18:59 06:59 18:59 Intake Total 607 20 180 Output Total 2200 1200 1000 Balance -1593 -1180 -820 Weight 98.5 kg Intake: IV 10 20 Invasive Line 3 10 20 Oral 597 180 Output: Urine 2200 1200 1000 Other: Voiding Method External Catheter External Catheter External Catheter # Voids 1 - Labs CBC & Chem 7: 10/24/23 06:20 10/24/23 06:20 Labs: Abnormal Lab Results - Last 24 Hours (Table) 10/26/23 10/26/23 10/27/23 Range/Units 16:38 19:50 06:10 POC Glucose (mg/dL) 240 H 280 H 179 H (70-110) mg/dL 10/27/23 Range/Units 11:35 POC Glucose (mg/dL) 147 H (70-110) mg/dL Microbiology - Last 24 Hours (Table) 10/23/23 01:00 Blood Culture - Preliminary Blood 10/23/23 00:45 Blood Culture - Preliminary Blood
--- NOTE | 2023-10-27 13:20 | P.PN ---
Subjective Progress Note Date: 10/27/23 Principal diagnosis: Shortness of breath. This is an 83-year-old female with history of asthma, chronic atrial fibrillation, nonsmoker, history of hypertension and type 2 diabetes, patient presented to the ER today with 1 week history of cough wheezing shortness of breath, congestion, and feels that the heart is fluttering. Upon her initial evaluation in the ER, patient was noted to be in atrial fibrillation with RVR, patient was started on Cardizem drip, and shortly after the patient converted to normal sinus rhythm. Chest x-ray showed evidence of prominence of the pulmonary vasculature, possible bronchitis finding, no clear-cut evidence of pneumonia. Patient was already seen by cardiology on consultation, and the recommendation was to continue her diltiazem, and to make sure that the patient is on eliquis 5 mg twice a day. When I evaluated the patient in the ER, I reviewed the chest x- ray, hence I recommended Lasix 40 mg IV push, although I'm not quite convinced that the patient has congestive heart failure and also recommended bronchodilators for what seems to be a picture of cough wheezing shortness of breath/acute asthma exacerbation. I also recommended admission and further follow-up. CBC in the ER was noted to be normal basic metabolic profile was normal blood sugar was elevated at 327, lactic acid was elevated at 5.6, BNP level was normal, COVID-19 screening was negative according to the patient she always had a chronic cough. Progress note dated 10/24/2023. 83-year-old female seen in the emergency department, room 19. She was admitted with a diagnosis of atrial fibrillation with RVR, and possible pneumonia. She does have a history of asthma, chronic atrial fibrillation, hypertension, type 2 diabetes. The patient's currently on room air. She's not receiving any IV fluids. She states that she feels much better than when she first came into the hospital. She was seen yesterday in consultation. Currently labs white count 8.2, hemoglobin 11.6, hematocrit 34.8, and a platelet count of 176,000. Sodium 136, potassium 4, chlorides 102, CO2 22, anion gap 12, BUN 10, creatinine 0.48. Lactic acid levels were 5.1, 4.8, and most recently 3.5. N-terminal proBNP was 952. Chest x-ray is not overly impressive, but does suggest the possibility of some atelectasis or infiltrates. The patient continues on azithromycin and Rocephin. Progress note dated 10/25/2023. 83-year-old female seen in room 357. The patient is currently not on any supplemental oxygen. She's getting saline at 50 mL an hour. She states that she feels like her breathing is much improved. She was initially admitted with a diagnosis of atrial fibrillation with RVR, and possible pneumonia. She does have a history of asthma, chronic atrial fibrillation, hypertension, and type 2 diabetes. Labs today include a lactic acid of 6.4. Progress note dated 10/26/2023. 83-year-old female seen today in room 357. The patient is currently on room air. She's not requiring any supplemental oxygen. She continues on saline at 50 mL an hour. Her most recent pro-calcitonin level was normal at 0.02. Antibiotics will be discontinued. She does still sounds congested. The patient will be given a flutter valve to use, and instructed in how to use it. Current laboratory data today includes a lactic acid of 1.9, and a glucose of 281. Progress note dated 10/27/2023. 83-year-old female seen today in room 357. The patient's doing relatively well. She is on room air. She's getting saline at KVO. We added Symbicort to her regimen, 160/4.5, 2 puffs twice a day. She still is having some tightness and wheezing in her chest. No new labs today other than a glucose of 147. She denies any chest pain or pressure. She is not coughing up any phlegm. There is no fever or chills. Objective - Vital Signs Vital signs: Vital Signs Temp 98 F 10/27/23 12:00 Pulse 96 10/27/23 12:00 Resp 18 10/27/23 12:00 BP 162/81 10/27/23 12:00 Pulse Ox 94 L 10/27/23 12:00 FiO2 Intake & Output 10/26/23 10/27/23 10/27/23 18:59 06:59 18:59 Intake Total 607 20 180 Output Total 2200 1200 1000 Balance -1593 -1180 -820 Weight 98.5 kg Intake: IV 10 20 Invasive Line 3 10 20 Oral 597 180 Output: Urine 2200 1200 1000 Other: Voiding Method External Catheter External Catheter External Catheter # Voids 1 - Exam No acute distress, oriented 3. No respiratory distress. Currently on room air. HEENT examination is grossly unremarkable. Mucous membranes are moist. No oral lesions. Neck supple. Full range of motion. No adenopathy thyromegaly or neck vein distention. Cardiovascular examination reveals regular rhythm rate. S1-S2 normal. No S3 or S4. No discernible murmur noted. Heart rate 90 bpm. Lungs reveal minimal scattered rhonchi. No wheezes. No crackles. Breath sounds equal. Room air saturation 94 %. Abdomen soft bowel sounds are heard. No masses or tenderness. Extremities are intact. No cyanosis clubbing or edema. Skin is without rash or lesion. Neurologic examination is brief but nonfocal. - Labs CBC & Chem 7: 10/24/23 06:20 10/24/23 06:20 Labs: Abnormal Lab Results - Last 24 Hours (Table) 10/26/23 10/26/23 10/27/23 Range/Units 16:38 19:50 06:10 POC Glucose (mg/dL) 240 H 280 H 179 H (70-110) mg/dL 10/27/23 Range/Units 11:35 POC Glucose (mg/dL) 147 H (70-110) mg/dL Microbiology - Last 24 Hours (Table) 10/23/23 01:00 Blood Culture - Preliminary Blood 10/23/23 00:45 Blood Culture - Preliminary Blood Assessment and Plan Assessment: Shortness of breath, multifactorial, in part related to atrial fibrillation with RVR, acute asthma exacerbation, and possible pneumonia. History of chronic atrial fibrillation. History of chronic bronchial asthma. History of cough variant asthma. Type 2 diabetes mellitus. Benign essential hypertension. Lifelong nonsmoker. Plan: Plan dated 10/24/2023. The patient continues on azithromycin and Rocephin. In addition, the patient's receiving breathing treatments, and corticosteroids. Additional recommendations and suggestions are forthcoming. Clinically, the patient looks pretty well. She is laying in bed, without any supplemental oxygen. She's not describing any difficulty breathing, and she does feel better than when she first came into the hospital. We will continue to follow make recommendations along the way. Prognosis is guarded. Plan dated 10/25/2023. The patient continues on antibiotics. I will check a pro-calcitonin level. S he's not on any supplemental oxygen. She clinically looks stable. On examination, she does have diffuse bilateral rhonchi. Breath sounds are otherwise equal. We will continue to follow make recommendations on the way. Labs are reviewed. As mentioned, her lactic acid is 6.4. Solu-Medrol can be changed to prednisone. She continues only on Rocephin. Plan dated 10/26/2023. The patient does continue to sound congested. She has a wet congested cough. We will get her a flutter valve, and teach her how to use it. In addition, her pro-calcitonin level was normal, so antibiotics are discontinued. The patient continues on room air. She does not appear to be short of breath The patient c ontinues on saline at 50 mL an hour. Follow make recommendations along the way. Labs, x-rays, and medications are reviewed. Her pro-calcitonin level was 0.02. Plan dated 10/27/2023. 83-year-old female seen today in room 357. She's on room air. She's not receiving any fluids other than KVO saline. Today we had Symbicort to her regimen, 160/4.5, 2 puffs twice a day. Hopefully this will help her with her breathing. She does complain of some tightness and some wheezing. Labs, x- rays, medications are reviewed. Currently the rest of her vital signs are stable. We will continue to follow make recommendations along the way. Prognosis is guarded. Time with Patient: Less than 30
[2023-10-27 16:28] LABS: Glucose,Whole Blood 278 mg/dL (70-110)
[2023-10-27 20:03] LABS: Glucose,Whole Blood 291 mg/dL (70-110)
[2023-10-27] MEDS: FERROUS SULFATE 325 MG TAB PO SCH (20:59)
[2023-10-27] MEDS: LORATADINE 10 MG TAB PO SCH (20:59)
[2023-10-27] MEDS: MONTELUKAST 10 MG TAB PO SCH (20:59)
[2023-10-27] MEDS: INSULIN DETEMIR (LEVEMIR) 100 UNIT/ML SYR SQ SCH (20:59)
[2023-10-27] MEDS: SYMBICORT 160-4.5 MCG INHALER INHALATION SCH (21:00)
--- NOTE | 2023-10-27 21:52 | P.PN ---
Subjective Progress Note Date: 10/27/23 Patient evaluated today on the cardiac floor. Resting in bed. Has scattered ronchi and expiratory wheezing. Does clear some when coughing. Patient is currently on room air. Patient is being followed by pulmonary for suspected asthma exacerbation. She was started on symbicort today. No new labs available with exception of blood glucose elevated in the high 200s. REVIEW OF SYSTEMS: CONSTITUTIONAL: No fever, no malaise, no fatigue. HEENT: No recent visual problems or hearing problems. Denied any sore throat. CARDIOVASCULAR: No chest pain, orthopnea, PND, no palpitations, no syncope. PULMONARY: Reports shortness of breath, no cough, no hemoptysis. GASTROINTESTINAL: No diarrhea, no nausea, no vomiting, no abdominal pain. NEUROLOGICAL: No headaches, no weakness, no numbness. Physical Examination -GENERAL: The patient is alert and oriented x2-3, lethargic, mildly drowsy Well developed, well nourished. Generally weak HEENT: Pupils are round and equally reacting to light. EOMI. No scleral icterus. No conjunctival pallor. Normocephalic, atraumatic. No pharyngeal erythema. No thyromegaly. CARDIOVASCULAR: S1 and S2 present. No murmurs, rubs, or gallops. PULMONARY: Scatttered ronchi ABDOMEN: Soft, nontender, nondistended, normoactive bowel sounds. No palpable organomegaly. MUSCULOSKELETAL: No joint swelling or deformity. -EXTREMITIES: No cyanosis, clubbing,. Bilateral pitting leg edema. NEUROLOGICAL: Gross neurological examination did not reveal any focal deficits. Diffuse weakness SKIN: No rashes. no petechiae. Assessment and Plan Acute asthma exacerbation pneumonia less likely with normal procalcitonin no need for antibiotics. Continues on oral prednisone was started on symbicort today. A. fib with RVR continue anticoagulation with eliquis. additionally continues on oral cardizem. Heart rate controlled. 2.7 cm mass behind the left nipple recommending to follow up imaging outpatient. Hypertension continues on losartan Diabetes mellitus with hyperglycemia continues on sliding scale insulin with achs Accuchecks scheduled meal time insulin added as well as daily levemir in addition to the HS levemir. Lactic acidosis Acute COPD exacerbation on oral prednisone started on symbicort, pulmonary following. GI prophylaxis: Protonix DVT prophylaxis: On eliquis PT recommending [facility] on discharge. The impression and plan of care has been dictated by Aracelis Hampton, Nurse Practitioner as directed. Dr. Tip MD I have performed a history and physical examination and medical decision making of this patient, discussed the same with the dictator, and agree with the dictators assessment and plan as written, documented as a scribe. Based on total visit time, I have performed more than 50% of this visit. Objective - Vital Signs Vital signs: Vital Signs Temp 97.7 F 10/27/23 21:15 Pulse 88 10/27/23 21:15 Resp 18 10/27/23 21:15 BP 139/74 10/27/23 21:15 Pulse Ox 95 10/27/23 21:15 FiO2 Intake & Output 10/27/23 10/27/23 10/28/23 06:59 18:59 06:59 Intake Total 20 657 Output Total 1200 1450 Balance -1180 -793 Weight 98.5 kg Intake: IV 20 Invasive Line 3 20 Oral 657 Output: Urine 1200 1450 Other: Voiding Method External Catheter External Catheter External Catheter # Voids 1 # Bowel Movements 1 - Labs CBC & Chem 7: 10/24/23 06:20 10/24/23 06:20 Labs: Abnormal Lab Results - Last 24 Hours (Table) 10/27/23 10/27/23 10/27/23 Range/Units 06:10 11:35 16:25 POC Glucose (mg/dL) 179 H 147 H 278 H (70-110) mg/dL 10/27/23 Range/Units 20:01 POC Glucose (mg/dL) 291 H (70-110) mg/dL Assessment and Plan Time with Patient: Less than 30
[2023-10-28] MEDS: SODIUM CHLORIDE 0.9% 1,000 ML IV SCH ×2 (01:18→09:27)
[2023-10-28 04:21] VITALS: RESP 17
[2023-10-28 06:15] LABS: Glucose,Whole Blood 167 mg/dL (70-110)
[2023-10-28] MEDS: LEVOTHYROXINE 25 MCG TAB PO SCH (06:28)
[2023-10-28] MEDS: INSULIN ASPART (NovoLOG) 100 UNIT/ML VIAL SQ SCH ×7 (06:28→20:35)
[2023-10-28] MEDS: PANTOPRAZOLE 40 MG TABLET PO SCH (06:32)
[2023-10-28] MEDS ORDERED: INSULIN DETEMIR (LEVEMIR) 100 UNIT/ML SYR SQ SCH (07:00)
[2023-10-28] MEDS: SYMBICORT 160-4.5 MCG INHALER INHALATION SCH ×2 (08:02→21:15)
[2023-10-28] MEDS: IPRATROPIUM-ALBUTEROL 3 ML NEB INHALATION PRN (08:03)
[2023-10-28 08:18] LABS: Basophils # (A) 0.1 k/uL (0-0.2); Basophils % (A) 1 %; Eosinophils # (A) 0.1 k/uL (0-0.7); Eosinophils % (A) 1 %; HCT 37.4 % (34.0-46.0); HGB 12.5 gm/dL (11.4-16.0); Lymphocytes # (A) 2.1 k/uL (1.0-4.8); Lymphocytes % (A) 23 %; MCH 28.7 pg (25.0-35.0); MCHC 33.4 g/dL (31.0-37.0); Mean Platelet Volume 8.6; Monocytes # (A) 0.6 k/uL (0-1.0); Monocytes % (A) 6 %; Neutrophils # (A) 6.2 k/uL (1.3-7.7); Neutrophils % (A) 68 %; Platelet Count 181 k/uL (150-450); RBC 4.35 m/uL (3.80-5.40); RDW 14.4 % (11.5-15.5); WBC 9.2 k/uL (3.8-10.6)
[2023-10-28 08:35] LABS: African American GFR (CKD) >90 (>60 ml/min/1.73 sqM); Anion Gap 11 mmol/L; Blood Urea Nitrogen 16 mg/dL (7-17); Calcium 7.8 mg/dL (8.4-10.2); Carbon Dioxide 27 mmol/L (22-30); Chloride 100 mmol/L (98-107); Glucose 149 mg/dL (74-99); Non-African American GFR(CKD) 82 (>60 ml/min/1.73 sqM); Potassium 3.1 mmol/L (3.5-5.1); Sodium 138 mmol/L (137-145)
[2023-10-28] MEDS: DILTIAZEM CD 180 MG CAP.ER.24H PO SCH (09:26)
[2023-10-28] MEDS: LOSARTAN 25 MG TAB PO SCH (09:26)
[2023-10-28] MEDS: APIXABAN 5 MG TAB PO SCH ×2 (09:26→20:36)
[2023-10-28] MEDS: ESCITALOPRAM 20 MG TAB PO SCH (09:26)
[2023-10-28] MEDS: predniSONE 10 MG TAB PO SCH (09:26)
[2023-10-28] MEDS: ATORVASTATIN 40 MG TAB PO SCH (09:26)
[2023-10-28] MEDS ORDERED: LOSARTAN 25 MG TAB PO STA (11:42)
[2023-10-28 11:47] LABS: Glucose,Whole Blood 197 mg/dL (70-110)
[2023-10-28] MEDS: POTASSIUM CHLORIDE ER 20 MEQ TAB.ER PO SCH ×2 (12:15→12:19)
[2023-10-28 12:17] VITALS: BP 166/94; PULSE 65; TEMP 97.9
--- NOTE | 2023-10-28 12:23 | P.PN ---
Subjective Progress Note Date: 10/28/23 Principal diagnosis: Shortness of breath. This is an 83-year-old female with history of asthma, chronic atrial fibrillation, nonsmoker, history of hypertension and type 2 diabetes, patient presented to the ER today with 1 week history of cough wheezing shortness of breath, congestion, and feels that the heart is fluttering. Upon her initial evaluation in the ER, patient was noted to be in atrial fibrillation with RVR, patient was started on Cardizem drip, and shortly after the patient converted to normal sinus rhythm. Chest x-ray showed evidence of prominence of the pulmonary vasculature, possible bronchitis finding, no clear-cut evidence of pneumonia. Patient was already seen by cardiology on consultation, and the recommendation was to continue her diltiazem, and to make sure that the patient is on eliquis 5 mg twice a day. When I evaluated the patient in the ER, I reviewed the chest x- ray, hence I recommended Lasix 40 mg IV push, although I'm not quite convinced that the patient has congestive heart failure and also recommended bronchodilators for what seems to be a picture of cough wheezing shortness of breath/acute asthma exacerbation. I also recommended admission and further follow-up. CBC in the ER was noted to be normal basic metabolic profile was normal blood sugar was elevated at 327, lactic acid was elevated at 5.6, BNP level was normal, COVID-19 screening was negative according to the patient she always had a chronic cough. Progress note dated 10/24/2023. 83-year-old female seen in the emergency department, room 19. She was admitted with a diagnosis of atrial fibrillation with RVR, and possible pneumonia. She does have a history of asthma, chronic atrial fibrillation, hypertension, type 2 diabetes. The patient's currently on room air. She's not receiving any IV fluids. She states that she feels much better than when she first came into the hospital. She was seen yesterday in consultation. Currently labs white count 8.2, hemoglobin 11.6, hematocrit 34.8, and a platelet count of 176,000. Sodium 136, potassium 4, chlorides 102, CO2 22, anion gap 12, BUN 10, creatinine 0.48. Lactic acid levels were 5.1, 4.8, and most recently 3.5. N-terminal proBNP was 952. Chest x-ray is not overly impressive, but does suggest the possibility of some atelectasis or infiltrates. The patient continues on azithromycin and Rocephin. Progress note dated 10/25/2023. 83-year-old female seen in room 357. The patient is currently not on any supplemental oxygen. She's getting saline at 50 mL an hour. She states that she feels like her breathing is much improved. She was initially admitted with a diagnosis of atrial fibrillation with RVR, and possible pneumonia. She does have a history of asthma, chronic atrial fibrillation, hypertension, and type 2 diabetes. Labs today include a lactic acid of 6.4. Progress note dated 10/26/2023. 83-year-old female seen today in room 357. The patient is currently on room air. She's not requiring any supplemental oxygen. She continues on saline at 50 mL an hour. Her most recent pro-calcitonin level was normal at 0.02. Antibiotics will be discontinued. She does still sounds congested. The patient will be given a flutter valve to use, and instructed in how to use it. Current laboratory data today includes a lactic acid of 1.9, and a glucose of 281. Progress note dated 10/27/2023. 83-year-old female seen today in room 357. The patient's doing relatively well. She is on room air. She's getting saline at KVO. We added Symbicort to her regimen, 160/4.5, 2 puffs twice a day. She still is having some tightness and wheezing in her chest. No new labs today other than a glucose of 147. She denies any chest pain or pressure. She is not coughing up any phlegm. There is no fever or chills. Progress note dated 10/28/2023. 83-year-old female seen today in room 357. Currently, the patient's on room air. She's not receiving any IV fluids. Each day, the patient improved, from the pulmonary standpoint. She denies any shortness of breath, cough, wheezing, or chest tightness. White count is 9.2, he will been 12.5, hematocrit 37.4, and platelet count 181,000. Sodium 138, potassium 3.1, chlorides 100, CO2 27, BUN 16, creatinine 0.66. Calcium is 7.8. Objective - Vital Signs Vital signs: Vital Signs Temp 97.9 F 10/28/23 12:00 Pulse 65 10/28/23 12:00 Resp 17 10/28/23 12:00 BP 166/94 10/28/23 12:00 Pulse Ox 95 10/28/23 12:00 FiO2 Intake & Output 10/27/23 10/28/23 10/28/23 18:59 06:59 18:59 Intake Total 657 118 Output Total 1450 2100 Balance -793 -2100 118 Weight 98.5 kg Intake: Oral 657 118 Output: Urine 1450 2100 Other: Voiding Method External Catheter External Catheter External Catheter # Bowel Movements 1 - Exam No acute distress, oriented 3. No respiratory distress. Currently on room air. HEENT examination is grossly unremarkable. Mucous membranes are moist. No oral lesions. Neck supple. Full range of motion. No adenopathy thyromegaly or neck vein distention. Cardiovascular examination reveals regular rhythm rate. S1-S2 normal. No S3 or S4. No discernible murmur noted. Heart rate 65 bpm. Lungs reveal minimal scattered rhonchi. No wheezes. No crackles. Breath sounds equal. Breath sounds are improved. Room air saturation 95 %. Abdomen soft bowel sounds are heard. No masses or tenderness. Extremities are intact. No cyanosis clubbing or edema. Skin is without rash or lesion. Neurologic examination is brief but nonfocal. - Labs CBC & Chem 7: 10/28/23 07:13 10/28/23 07:13 Labs: Abnormal Lab Results - Last 24 Hours (Table) 10/27/23 10/27/23 10/28/23 Range/Units 16:25 20:01 06:05 Potassium (3.5-5.1) mmol/L Glucose (74-99) mg/dL POC Glucose (mg/dL) 278 H 291 H 167 H (70-110) mg/dL Calcium (8.4-10.2) mg/dL 10/28/23 10/28/23 Range/Units 07:13 11:45 Potassium 3.1 L (3.5-5.1) mmol/L Glucose 149 H (74-99) mg/dL POC Glucose (mg/dL) 197 H (70-110) mg/dL Calcium 7.8 L (8.4-10.2) mg/dL Assessment and Plan Assessment: Shortness of breath, multifactorial, in part related to atrial fibrillation with RVR, acute asthma exacerbation, and possible pneumonia. History of chronic atrial fibrillation. History of chronic bronchial asthma. History of cough variant asthma. Type 2 diabetes mellitus. Benign essential hypertension. Lifelong nonsmoker. Plan: Plan dated 10/24/2023. The patient continues on azithromycin and Rocephin. In addition, the patient's receiving breathing treatments, and corticosteroids. Additional recommendations and suggestions are forthcoming. Clinically, the patient looks pretty well. She is laying in bed, without any supplemental oxygen. She's not describing any difficulty breathing, and she does feel better than when she first came into the hospital. We will continue to follow make recommendations along the way. Prognosis is guarded. Plan dated 10/25/2023. The patient continues on antibiotics. I will check a pro-calcitonin level. She 's not on any supplemental oxygen. She clinically looks stable. On examination, she does have diffuse bilateral rhonchi. Breath sounds are otherwise equal. We will continue to follow make recommendations on the way. Labs are reviewed. As mentioned, her lactic acid is 6.4. Solu-Medrol can be c hanged to prednisone. She continues only on Rocephin. Plan dated 10/26/2023. The patient does continue to sound congested. She has a wet congested cough. We will get her a flutter valve, and teach her how to use it. In addition, her pro-calcitonin level was normal, so antibiotics are discontinued. The patient continues on room air. She does not appear to be short of breath The patient continues on saline at 50 mL an hour. Follow make recommendations along the way. Labs, x-rays, and medications are reviewed. Her pro-calcitonin level was 0.02. Plan dated 10/27/2023. 83-year-old female seen today in room 357. She's on room air. She's not receiving any fluids other than KVO saline. Today we had Symbicort to her regimen, 160/4.5, 2 puffs twice a day. Hopefully this will help her with her breathing. She does complain of some tightness and some wheezing. Labs, x- rays, medications are reviewed. Currently the rest of her vital signs are stable. We will continue to follow make recommendations along the way. Prognosis is guarded. Plan dated 10/28/2023. 83-year-old female seen in room 357. She's on room air. No IV fluids. He is currently on prednisone 30 mg a day, updrafts, with albuterol and ipratropium bromide, and is currently on Symbicort. From the pulmonary standpoint, the patient is ready for discharge. Each day, the patient is improved. The patient's currently not requiring any supplemental oxygen. She has minimal adventitious lung sounds. Prognosis is guarded. Time with Patient: Less than 30
[2023-10-28 16:48] LABS: Glucose,Whole Blood 342 mg/dL (70-110)
[2023-10-28 20:17] LABS: Glucose,Whole Blood 341 mg/dL (70-110)
[2023-10-28] MEDS: MONTELUKAST 10 MG TAB PO SCH (20:35)
[2023-10-28] MEDS: FERROUS SULFATE 325 MG TAB PO SCH (20:35)
[2023-10-28] MEDS: INSULIN DETEMIR (LEVEMIR) 100 UNIT/ML SYR SQ SCH (20:35)
[2023-10-28] MEDS: LORATADINE 10 MG TAB PO SCH (20:54)
[2023-10-29] MEDS ORDERED: LOSARTAN 50 MG TAB PO SCH (09:00)
--- NOTE | 2023-10-30 21:16 | P.DS ---
Providers Date of admission: 10/22/23 23:07 Attending physician: Ryan Moser Consults: 10/23/23 11:54 Consult Physician Routine Consulting Provider: Ngoc Foster Consult Reason/Comments: pneumonia, sepsis Do you want consulting provider notified?: Yes Primary care physician: Efren Acuna Hospital Course: Final Diagnosis Acute asthma exacerbation pneumonia less likely with normal procalcitonin A. fib with RVR continue anticoagulation with eliquis. additionally continues on oral cardizem. Heart rate controlled. 2.7 cm mass behind the left nipple recommending to follow up imaging outpatient. Hypertension continues on losartan Diabetes mellitus with hyperglycemia Lactic acidosis Acute COPD exacerbation Discharge Disposition Patient is stable for discharge home, daughter lives with patient and is her caregiver. Patient has been started on symbicort and will continue on discharge. Oral prednisone taper in place. Recommending to follow up with pulmonary in 1 to 2 weeks, and also cardiology. Also patient has been recommending to follow up with surgery for the left breast mass. Given script for repeat BMP in 2 to 3 days. Hospital Course This is a pleasant 83 years old female with past medical history of asthma, presents because signs symptoms of dyspnea, cough and congestion and exertional shortness of breath. Patient also had complaints of heart fluttering. Was admitted with a diagnosis with acute asthma exacerbation, chest x-ray showed cardiomegaly with increase atelectasis versus early infiltrate in the lower lung suspicious for pneumonia. Patient is started on IV antibiotics Zithromax and ceftriaxone and started on high dose solu-Medrol 60 mg. Lactic acid elevated could be multifactorial secondary to infection, steroid use, hypoxia, TSH 0.53, troponin is negative less than 0.012. ProBNP 70. Covid is negative. Chest x-ray showing both bronchitis with bilateral tear. Repeat chest x-ray showing some patchy infiltrates which cannot exclude earlier developing infiltrate. CT of the abdomen and pelvis showed soft tissue mass 2.7 cm below the left nipple. Recommending outpatient follow up for this with patients PCP. Patient was monitored on systemic and inhaled steroids was also evaluated by pulmonary services. Procalcitonin was checked and less than 0.02 suggestive of viral etiology. Lactic acidosis has normalized. White blood cell count remains normal. Has been started on symbicort and being transitioned to oral prednisone taper. Cardiology also evaluated the patient for the fluttering. She was found to be in afib RVR, was resumed on home medications and heart rate has normalized. An echocardiogram was done showing normal LV function. Symptoms have resolved no further reports of shortness of breath. PT and OT evaluated the patient and recommending subacute rehab however patient wants to return home with help from her daughter. Lungs are clear she does have wet cough and clears and is using incentive spirometer. She will be discharged home with the above mentioned recommendations. Please see medication reconciliation for a list of current medication. Thank you for allowing us to participate in the care of this patient. The impression and plan of care has been dictated by Aracelis Hampton, Nurse Practitioner as directed. Dr. Tip MD I have performed a history and physical examination and medical decision making of this patient, discussed the same with the dictator, and agree with the dictators assessment and plan as written, documented as a scribe. Based on total visit time, I have performed more than 50% of this visit. Patient Condition at Discharge: Fair Plan - Discharge Summary New Discharge Prescriptions: New Losartan [Cozaar] 50 mg PO DAILY #30 tab predniSONE 0 mg PO DIRECTED 8 Days #15 tab Budesonide-Formot 160-4.5 Mcg [Symbicort 160-4.5 Mcg Inhaler] 2 puff INHALATION RT-BID #1 each Continue [place]-3/Dha/Epa/Fish Oil [Fish Oil 1,000 mg Softgel] 1 cap PO HS Loratadine 10 mg PO HS Ferrous Sulfate [Iron (65 MG Elemental)] 325 mg PO HS dilTIAZem HCL [dilTIAZem HCL 24Hr ER (Xr)] 180 mg PO AC-BRKFST Escitalopram [Lexapro] 20 mg PO DAILY Pantoprazole [Protonix] 40 mg PO AC-BRKFST Atorvastatin [Lipitor] 40 mg PO AC-BRKFST Tiotropium 2.5 Mcg/Puff [Spiriva Respimat 2.5 Mcg] 1 puff INHALATION RT-DAILY PRN PRN Reason: Shortness Of Breath Diclofenac Sodium Gel [Voltaren 1% Gel] 1 applic TOPICAL QID PRN PRN Reason: Pain Loperamide HCl [Imodium A-D] 2 mg PO QID PRN PRN Reason: Diarrhea Insulin Glargine-Yfgn [Semglee (Yfgn) Pen] 10 units SQ HS Acetaminophen [Tylenol Arthritis] 650 mg PO AC-BRKFST Super B Complex 1 tab PO HS Acetaminophen [Tylenol 8 Hour] 1,300 mg PO HS Potassium Gluconate 99 mg PO HS Levothyroxine Sodium [Synthroid] 12.5 mcg PO AC-BRKFST Calcium Carbonate [Calcium] 600 mg PO HS Montelukast [Singulair] 10 mg PO HS Apixaban [Eliquis] 5 mg PO AC-BID Ipratropium-Albuterol Nebulize [Duoneb 0.5 mg-3 mg/3 ml Soln] 3 ml INHALATION RT-QID PRN PRN Reason: Shortness Of Breath Prevagen 1 tab PO BID Dulaglutide [Trulicity] 0.75 mg SQ WE Gabapentin [Neurontin] 300 mg PO TID 3 Days #9 cap Discharge Medication List Acetaminophen [Tylenol 8 Hour] 1,300 mg PO HS 08/25/23 [History] Acetaminophen [Tylenol Arthritis] 650 mg PO AC-BRKFST 08/25/23 [History] Apixaban [Eliquis] 5 mg PO AC-BID 08/25/23 [History] Atorvastatin [Lipitor] 40 mg PO AC-BRKFST 08/25/23 [History] Calcium Carbonate [Calcium] 600 mg PO HS 08/25/23 [History] Diclofenac Sodium Gel [Voltaren 1% Gel] 1 applic TOPICAL QID PRN 08/25/23 [History] Dulaglutide [Trulicity] 0.75 mg SQ WE 08/25/23 [History] Escitalopram [Lexapro] 20 mg PO DAILY 08/25/23 [History] Ferrous Sulfate [Iron (65 MG Elemental)] 325 mg PO HS 08/25/23 [History] Insulin Glargine-Yfgn [Semglee (Yfgn) Pen] 10 units SQ HS 08/25/23 [History] Ipratropium-Albuterol Nebulize [Duoneb 0.5 mg-3 mg/3 ml Soln] 3 ml INHALATION RT-QID PRN 08/25/23 [History] Levothyroxine Sodium [Synthroid] 12.5 mcg PO AC-BRKFST 08/25/23 [History] Loperamide HCl [Imodium A-D] 2 mg PO QID PRN 08/25/23 [History] Loratadine 10 mg PO HS 08/25/23 [History] Montelukast [Singulair] 10 mg PO HS 08/25/23 [History] [place]-3/Dha/Epa/Fish Oil [Fish Oil 1,000 mg Softgel] 1 cap PO HS 08/25/23 [History] Pantoprazole [Protonix] 40 mg PO AC-BRKFST 08/25/23 [History] Potassium Gluconate 99 mg PO HS 08/25/23 [History] Prevagen 1 tab PO BID 08/25/23 [History] Super B Complex 1 tab PO HS 08/25/23 [History] Tiotropium 2.5 Mcg/Puff [Spiriva Respimat 2.5 Mcg] 1 puff INHALATION RT-DAILY PRN 08/25/23 [History] dilTIAZem HCL [dilTIAZem HCL 24Hr ER (Xr)] 180 mg PO AC-BRKFST 08/25/23 [History] Gabapentin [Neurontin] 300 mg PO TID 3 Days #9 cap 09/22/23 [Rx] Budesonide-Formot 160-4.5 Mcg [Symbicort 160-4.5 Mcg Inhaler] 2 puff INHALATION RT-BID #1 each 10/28/23 [Rx] Losartan [Cozaar] 50 mg PO DAILY #30 tab 10/28/23 [Rx] predniSONE 0 mg PO DIRECTED 8 Days #15 tab 10/28/23 [Rx] Follow up Appointment(s)/Referral(s): Efren Acuna MD [Primary Care Provider] - 1-2 days (office said they are not primary and only saw her at [facility]) [facility] [NON-STAFF] - Vignesh Agosto MD [STAFF PHYSICIAN] - 1 Week (Office was closed, please call to make your appointment for your left breast mass) Ambulatory/Diagnostic Orders: Basic Metabolic Panel [LAB.AMB] Time Frame: 3 Days, Location: None Selected Activity/Diet/Wound Care/Special Instructions: Activity limited until f/u Start symbicort inhaler BID and continue oral prednisone taper Discharge Disposition: HOME WITH HOME HEALTH SERVICES
== END 2023-10-28 20:54 | disposition home health service (06) | DRG 190 ==
LOC: EC 21:07 → 3SCARD 23:07
PROVIDERS: ADMIT Hospitalist; ATTEND Hospitalist
DX: J44.0 Chronic obstructive pulmonary disease with (acute) lower respiratory infection (principal); J15.9 Unspecified bacterial pneumonia; J45.901 Unspecified asthma with (acute) exacerbation; E87.20 Acidosis, unspecified; Z11.52 Encounter for screening for COVID-19; J44.1 Chronic obstructive pulmonary disease with (acute) exacerbation; E11.65 Type 2 diabetes mellitus with hyperglycemia; I10 Essential (primary) hypertension; N63.42 Unspecified lump in left breast, subareolar; N63.20 Unspecified lump in the left breast, unspecified quadrant; E78.5 Hyperlipidemia, unspecified; I48.0 Paroxysmal atrial fibrillation; Z88.0 Allergy status to penicillin; Z79.4 Long term (current) use of insulin; Z79.01 Long term (current) use of anticoagulants; Z79.890 Hormone replacement therapy; Z79.51 Long term (current) use of inhaled steroids; Z79.899 Other long term (current) drug therapy
CPT/HCPCS: 36415; 71045; 74177; 80048; 80053; 83036; 83605; 83735; 83880; 84100; 84145; 84443; 84484; 85025; 85610; 85730; 87040; 87449; 87635; 93005; 93306; 94640; 94667; 94668; 96361; 96365; 96366; 96367; 96368; 96375; 96376; 99285

== ENCOUNTER 2023-10-31 18:39 | Observation (INO) | payer MEDICARE ==
[2023-10-31] MEDS ORDERED: IPRATROPIUM-ALBUTEROL 3 ML NEB INHALATION STA ×2 (19:06→22:12)
[2023-10-31] MEDS ORDERED: methylPREDNISolone SOD SUCCI 125 MG/2 ML VIAL IV STA (19:06)
--- NOTE | 2023-10-31 19:58 | CT ---
EXAMINATION TYPE: CT brain wo con CT DLP: 1203.4 mGycm, Automated exposure control for dose reduction was used. DATE OF EXAM: 10/31/2023 7:44 PM COMPARISON: 10/07/2023.. CLINICAL INDICATION:Female, 83 years old with history of confusion, TECHNIQUE: Brain: Axial CT images of the brain were obtained with coronal and sagittal reformats created and rev iewed. Contrast used: None. Oral contrast used: None. FINDINGS: Brain: Extra-axial spaces: Decrease in extra-axial fluid collection. There remains low density subdural hemo rrhage over the posterior left parietal lobe measuring up to 9 mm in thickness. Ventricular system: Within normal limits Cerebral parenchyma: No acute intraparenchymal hemorrhage or mass effect. The [place]-white junction is well differentiated. Cerebellum: Unremarkable. Mass effect: No evidence of midline shift. Intracranial vasculature: Atherosclerotic calcifications of the intracranial vessels. Soft tissues: Normal. Calvarium/osseous structures: No depressed skull fracture. Paranasal sinuses and mastoid air cells: Mild scattered paranasal sinus disease. Visualized orbits: Orbital contents are intact. IMPRESSION: Continued evolution of prior 10/07/2023 subdural hemorrhage. No evidence for new intracranial hemorrh age. No acute intracranial process. No midline shift.
--- NOTE | 2023-10-31 19:58 | XR ---
EXAMINATION TYPE: XR chest 2V DATE OF EXAM: 10/31/2023 7:43 PM CLINICAL INDICATION:Female, 83 years old with history of difficulty breathing; COMPARISON: Chest radiographs from 10/23/2023. TECHNIQUE: XR chest 2V Frontal and lateral views of the chest. FINDINGS: Lungs/Pleura: There is no evidence of pleural effusion, focal consolidation, or pneumothorax. Pulmonary vascularity: Unremarkable. Heart/mediastinum: Cardiomediastinal silhouette is unremarkable. Musculoskeletal: No acute osseous pathology. Other findings: None IMPRESSION: No acute cardiopulmonary disease/process.
[2023-10-31 20:24] LABS: Basophils % (A) 0 %; Eosinophils # (A) 0.1 k/uL (0-0.7); Eosinophils % (A) 1 %; HGB 12.8 gm/dL (11.4-16.0); Lymphocytes % (A) 18 %; MCH 29.1 pg (25.0-35.0); MCHC 33.7 g/dL (31.0-37.0); MCV 86.5 fL (80.0-100.0); Mean Platelet Volume 8.6; Monocytes # (A) 0.6 k/uL (0-1.0); Monocytes % (A) 6 %; Neutrophils # (A) 7.9 k/uL (1.3-7.7); Neutrophils % (A) 74 %; Platelet Count 198 k/uL (150-450); RBC 4.39 m/uL (3.80-5.40); RDW 14.4 % (11.5-15.5); WBC 10.8 k/uL (3.8-10.6)
[2023-10-31 20:31] LABS: ALT 30 U/L (4-34); AST 19 U/L (14-36); African American GFR (CKD) >90 (>60 ml/min/1.73 sqM); Albumin 3.1 g/dL (3.5-5.0); Alkaline Phosphatase 96 U/L (38-126); Anion Gap 6 mmol/L; Blood Urea Nitrogen 12 mg/dL (7-17); Calcium 8.4 mg/dL (8.4-10.2); Carbon Dioxide 27 mmol/L (22-30); Chloride 103 mmol/L (98-107); Glucose 225 mg/dL (74-99); Non-African American GFR(CKD) 82 (>60 ml/min/1.73 sqM); Potassium 3.7 mmol/L (3.5-5.1); Sodium 136 mmol/L (137-145); Total Protein 5.9 g/dL (6.3-8.2)
[2023-10-31 20:55] LABS: INR 0.9 (<1.2); Prothrombin Time 10.2 sec (10.0-12.5)
[2023-10-31 21:07] LABS: Partial Thromboplastin Time 21.6 sec (22.0-30.0)
[2023-11-01 03:13] LABS: Appearance,Urine Cloudy (Clear); Bacteria,Urine Moderate /hpf; Bilirubin,Urine Negative (Negative); Blood,Urine Trace (Negative); Color,Urine Colorless; Glucose,Urine (UA) 4+ (Negative); Hyaline Casts,Urine 30 /lpf (0-2); Hyphae Yeast, Urine Few /hpf; Ketones,Urine 1+ (Negative); Leukocyte Esterase,Urine Large (Negative); Mucus,Urine Occasional /hpf; Nitrite,Urine Negative (Negative); Protein,Urine Negative (Negative); RBC,Urine 52 /hpf (0-5); Specific Gravity,Urine 1.013 (1.001-1.035); Squamous Epithelial Cell,Urine 2 /hpf (0-4); Urobilinogen,Urine <2.0 mg/dL (<2.0); WBC,Urine >182 /hpf (0-5)
[2023-11-01] MEDS ORDERED: ACETAMINOPHEN TAB 325 MG TAB PO PRN (03:38)
[2023-11-01] MEDS ORDERED: NALOXONE 0.4 MG/ML 1 ML VIAL IV PRN (03:38)
[2023-11-01] MEDS ORDERED: cefTRIAXone IN SWFI 1,000 MG/10 ML SYRINGE IVP STA (03:39)
[2023-11-01] MEDS ORDERED: IPRATROPIUM-ALBUTEROL 3 ML NEB INHALATION PRN ×2 (03:43→11:56)
[2023-11-01] MEDS ORDERED: SODIUM CHLORIDE 0.9% 1,000 ML IV SCH (03:45)
--- NOTE | 2023-11-01 03:48 | ED ---
SOB HPI - General Chief Complaint: Shortness of Breath Stated Complaint: SHAHID Time Seen by Provider: 10/31/23 18:59 Source: patient, EMS Mode of arrival: EMS Limitations: no limitations - History of Present Illness Initial Comments: 83-year-old female presenting with chief complaint of cough. Patient was recently discharged after a lengthy hospital stay and treatment for pneumonia. Patient was brought in by EMS, I called the patient's daughter who states that today she started having wheezing and increased coughing which prompted them to call EMS. She also states that the patient has been more confused recently. Patient tells me that she is having no shortness of breath but is having a continuous cough. Patient is somewhat confused while obtaining the history. She denies any chest pain, abdominal pain, nausea, vomiting. - Related Data Home Medications Medication Instructions Recorded Confirmed Acetaminophen [Tylenol 8 Hour] 1,300 mg PO HS 08/25/23 10/31/23 Acetaminophen [Tylenol Arthritis] 650 mg PO AC-BRKFST 08/25/23 10/31/23 Apixaban [Eliquis] 5 mg PO AC-BID 08/25/23 10/31/23 Atorvastatin [Lipitor] 40 mg PO AC-BRKFST 08/25/23 10/31/23 Calcium Carbonate [Calcium] 600 mg PO HS 08/25/23 10/31/23 Diclofenac Sodium Gel [Voltaren 1% 1 applic TOPICAL QID PRN 08/25/23 10/31/23 Gel] Dulaglutide [Trulicity] 0.75 mg SQ WE 08/25/23 10/31/23 Escitalopram [Lexapro] 20 mg PO DAILY 08/25/23 10/31/23 Ferrous Sulfate [Iron (65 MG 325 mg PO HS 08/25/23 10/31/23 Elemental)] Insulin Glargine-Yfgn [Semglee 10 units SQ HS 08/25/23 10/31/23 (Yfgn) Pen] Ipratropium-Albuterol Nebulize 3 ml INHALATION RT-QID PRN 08/25/23 10/31/23 [Duoneb 0.5 mg-3 mg/3 ml Soln] Levothyroxine Sodium [Synthroid] 12.5 mcg PO AC-BRKFST 08/25/23 10/31/23 Loperamide HCl [Imodium A-D] 2 mg PO QID PRN 08/25/23 10/31/23 Loratadine 10 mg PO HS 08/25/23 10/31/23 Montelukast [Singulair] 10 mg PO HS 08/25/23 10/31/23 [place]-3/Dha/Epa/Fish Oil [Fish Oil 1 cap PO HS 08/25/23 10/31/23 1,000 mg Softgel] Pantoprazole [Protonix] 40 mg PO AC-BRKFST 08/25/23 10/31/23 Potassium Gluconate 99 mg PO HS 08/25/23 10/31/23 Prevagen 1 tab PO BID 08/25/23 10/31/23 Super B Complex 1 tab PO HS 08/25/23 10/31/23 Tiotropium 2.5 Mcg/Puff [Spiriva 1 puff INHALATION RT-DAILY PRN 08/25/23 10/31/23 Respimat 2.5 Mcg] dilTIAZem HCL [dilTIAZem HCL 24Hr 180 mg PO -BRKT 08/25/23 10/31/23 ER (Xr)] predniSONE See Taper PO DAILY 10/31/23 10/31/23 Previous Rx's Medication Instructions Recorded Gabapentin [Neurontin] 300 mg PO TID 3 Days #9 cap 09/22/23 Budesonide-Formot 160-4.5 Mcg 2 puff INHALATION RT-BID #1 each 10/28/23 [Symbicort 160-4.5 Mcg Inhaler] Losartan [Cozaar] 50 mg PO DAILY #30 tab 10/28/23 Allergies Allergy/AdvReac Type Severity Reaction Status Date / Time Penicillins Allergy Rash/Hives Verified 10/31/23 21:35 Review of Systems ROS Statement: Those systems with pertinent positive or pertinent negative responses have been documented in the HPI. ROS Other: All systems not noted in ROS Statement are negative. Past Medical History Past Medical History: Atrial Fibrillation, Diabetes Mellitus, Hypertension, Memory Impairment Additional Past Medical History / Comment(s): patient poor historian History of Any Multi-Drug Resistant Organisms: None Reported Past Surgical History: Appendectomy Additional Past Surgical History / Comment(s): patient poor historian Past Anesthesia/Blood Transfusion Reactions: No Reported Reaction Past Psychological History: No Psychological Hx Reported Smoking Status: Never smoker Past Alcohol Use History: None Reported Past Drug Use History: None Reported General Exam Limitations: no limitations General appearance: alert, in no apparent distress Head exam: Present: atraumatic, normocephalic Eye exam: Present: normal appearance, EOMI Neck exam: Present: normal inspection Respiratory exam: Present: wheezes, rhonchi. Absent: respiratory distress, stridor Cardiovascular Exam: Present: regular rate, normal rhythm, normal heart sounds. Absent: systolic murmur, diastolic murmur, rubs, gallop, clicks Neurological exam: Present: alert, altered Psychiatric exam: Present: normal affect, normal mood Skin exam: Present: warm Course Vital Signs 10/31/23 10/31/23 10/31/23 18:49 18:56 20:40 Temperature 97.6 F Pulse Rate 100 84 Respiratory 20 20 Rate Blood Pressure 139/81 O2 Sat by Pulse 96 Oximetry 10/31/23 10/31/23 10/31/23 20:50 22:45 22:46 Temperature Pulse Rate 88 105 H 106 H Respiratory 16 Rate Blood Pressure 144/79 O2 Sat by Pulse 94 L Oximetry 10/31/23 11/01/23 11/01/23 22:57 00:00 01:00 Temperature Pulse Rate 103 H 113 H 110 H Respiratory 16 17 Rate Blood Pressure 131/70 160/77 O2 Sat by Pulse 96 96 Oximetry 11/01/23 11/01/23 02:00 03:00 Temperature Pulse Rate 111 H 107 H Respiratory 18 18 Rate Blood Pressure 179/96 173/92 O2 Sat by Pulse 95 95 Oximetry Medical Decision Making - Medical Decision Making Was pt. sent in by a medical professional or institution (, PA, CAR WORKER HELPER, urgent c are, hospital, or [facility]...) When possible be specific @ -No Did you speak to anyone other than the patient for history (EMS, parent, family, police, friend...)? What history was obtained from this source @ -Spoke with the patient's daughter via telephone Did you review nursing and triage notes (agree or disagree)? Why? @ -I reviewed and agree with nursing and triage notes Were old charts reviewed (outside hosp., previous admission, EMS record, old EKG, old radiological studies, urgent care reports/EKG's, [facility] records)? Report findings @ -Recent admission is reviewed Differential Diagnosis (chest pain, altered mental status, abdominal pain women, abdominal pain men, vaginal bleeding, weakness, fever, dyspnea, syncope, he adache, dizziness, GI bleed, back pain, seizure, CVA, palpatations, mental health, musculoskeletal)? @ -MDM Differential Altered Mental Status: Hypoglycemia, DKA, hypercapnia, ETOH, overdose, CO poisoning, trauma, myxedema coma, HTN encephalopathy, infection, encephalitis, psychosis, intercranial hemorrhage, hepatic encephalopathy, meningitis, CVA this is not meant to be an all-inclusive list EKG interpreted by me (3pts min.). @ -EKG shows sinus rhythm ventricular rate 99. IN interval 140. QRS 93. QT 353. QTC 410. X-rays interpreted by me (1pt min.). @ -Chest x-ray shows no acute cardiopulmonary process. Appears improved from recent chest x-ray. CT interpreted by me (1pt min.). @ -CT of the brain without contrast shows continued evolution of prior 10/07/23 subdural hemorrhage. No evidence for new intracranial hemorrhage. No acute intracranial process. No midline shift. U/S interpreted by me (1pt. min.). @ -None done What testing was considered but not performed or refused? (CT, X-rays, U/S, labs)? Why? @ -None What meds were considered but not given or refused? Why? @ -None Did you discuss the management of the patient with other professionals (professionals i.e. , PA, CAR WORKER HELPER, lab, RT, psych nurse, psychologist social, cable splicer assistant, teacher, marketing officer, case packer and sealer)? Give summary @ -My attending spoke with the [facility] provider on-call for admission Was smoking cessation discussed for >3mins.? @ -No Was critical care preformed (if so, how long)? @ -No Were there social determinants of health that impacted care today? How? (Homelessness, low income, unemployed, alcoholism, drug addiction, transp ortation, low edu. Level, literacy, decrease access to med. care, alf, rehab)? @ -Patient is not being cared for properly at home Was there de-escalation of care discussed even if they declined (Discuss DNR or withdrawal of care, Hospice)? DNR status @ -No What co-morbidities impacted this encounter? (DM, HTN, Smoking, COPD, CAD, Cancer, CVA, ARF, Chemo, Hep., AIDS, mental health diagnosis, sleep apnea, morbid obesity)? @ -Diabetes, hypertension Was patient admitted / discharged? Hospital course, mention meds given and route, prescriptions, significant lab abnormalities, going to OR and other pertinent info. @ -A 3-year-old female brought in by EMS with chief complaint of wheezing and continued coughing. She was recently discharged from our facility after treatment for pneumonia. She is confused while obtaining the history. I called the patient's daughter states that EMS was called and the patient was having wheezing and seeming short of breath. Daughter also states that the patient is more confused than usual. History and physical exam were conducted. WBC 10.8, patient is found to have significant UTI, she is given 1 g of Rocephin. EKG mario ws sinus rhythm and troponin is negative. Chest x-ray and CT brain showed no acute process. Patient does not appear to be well cared for at home, given her weakness and UTI I believe it is in her best interest to be admitted for treatment and discharged to subacute rehab. I discussed this case with my attending Dr. Driver Undiagnosed new problem with uncertain prognosis? @ -No Drug Therapy requiring intensive monitoring for toxicity (Heparin, Nitro, Insulin, Cardizem)? @ -No Were any procedures done? @ -No Diagnosis/symptom? @ -UTI, weakness Acute, or Chronic, or Acute on Chronic? @ -Acute Uncomplicated (without systemic symptoms) or Complicated (systemic symptoms)? @ -Complicated Side effects of treatment? @ -No Exacerbation, Progression, or Severe Exacerbation? @ -No Poses a threat to life or bodily function? How? (Chest pain, [place], [place], pneumonia, PE, COPD, DKA, ARF, appy, cholecystitis, CVA, Diverticulitis, Homicidal, Suicidal, threat to staff... and all critical care pts) @ -yes - Lab Data Result diagrams: 10/31/23 20:00 10/31/23 20:00 Lab Results 10/31/23 10/31/23 10/31/23 Range/Units 20:00 20:00 20:00 WBC 10.8 H (3.8-10.6) k/uL RBC 4.39 (3.80-5.40) m/uL Hgb 12.8 (11.4-16.0) gm/dL Hct 38.0 (34.0-46.0) % MCV 86.5 (80.0-100.0) fL MCH 29.1 (25.0-35.0) pg MCHC 33.7 (31.0-37.0) g/dL RDW 14.4 (11.5-15.5) % Plt Count 198 (150-450) k/uL MPV 8.6 Neutrophils % 74 % Lymphocytes % 18 % Monocytes % 6 % Eosinophils % 1 % Basophils % 0 % Neutrophils # 7.9 H (1.3-7.7) k/uL Lymphocytes # 2.0 (1.0-4.8) k/uL Monocytes # 0.6 (0-1.0) k/uL Eosinophils # 0.1 (0-0.7) k/uL Basophils # 0.0 (0-0.2) k/uL PT (10.0-12.5) sec INR (<1.2) APTT (22.0-30.0) sec Sodium 136 L (137-145) mmol/L Potassium 3.7 (3.5-5.1) mmol/L Chloride 103 (98-107) mmol/L Carbon Dioxide 27 (22-30) mmol/L Anion Gap 6 mmol/L BUN 12 (7-17) mg/dL Creatinine 0.66 (0.52-1.04) mg/dL Est GFR (CKD-EPI)AfAm >90 (>60 ml/min/1.73 sqM) Est GFR (CKD-EPI)NonAf 82 (>60 ml/min/1.73 sqM) Glucose 225 H (74-99) mg/dL Plasma Lactic Acid [place] 1.6 (0.7-2.0) mmol/L Calcium 8.4 (8.4-10.2) mg/dL Total Bilirubin 1.0 (0.2-1.3) mg/dL AST 19 (14-36) U/L ALT 30 (4-34) U/L Alkaline Phosphatase 96 (38-126) U/L Troponin I (0.000-0.034) ng/mL Total Protein 5.9 L (6.3-8.2) g/dL Albumin 3.1 L (3.5-5.0) g/dL Urine Color Urine Appearance (Clear) Urine pH (5.0-8.0) Ur Specific [place] (1.001-1.035) Urine Protein (Negative) Urine Glucose (UA) (Negative) Urine Ketones (Negative) Urine Blood (Negative) Urine Nitrite (Negative) Urine Bilirubin (Negative) Urine Urobilinogen (<2.0) mg/dL Ur Leukocyte Esterase (Negative) Urine RBC (0-5) /hpf Urine WBC (0-5) /hpf Urine WBC Clumps (None) /hpf Ur Squamous Epith Cells (0-4) /hpf Urine Bacteria (None) /hpf Hyaline Casts (0-2) /lpf Urine Mucus (None) /hpf Ur Yeast w Hyphae (None) /hpf 10/31/23 10/31/23 11/01/23 Range/Units 20:00 20:13 02:05 WBC (3.8-10.6) k/uL RBC (3.80-5.40) m/uL Hgb (11.4-16.0) gm/dL Hct (34.0-46.0) % MCV (80.0-100.0) fL MCH (25.0-35.0) pg MCHC (31.0-37.0) g/dL RDW (11.5-15.5) % Plt Count (150-450) k/uL MPV Neutrophils % % Lymphocytes % % Monocytes % % Eosinophils % % Basophils % % Neutrophils # (1.3-7.7) k/uL Lymphocytes # (1.0-4.8) k/uL Monocytes # (0-1.0) k/uL Eosinophils # (0-0.7) k/uL Basophils # (0-0.2) k/uL PT 10.2 (10.0-12.5) sec INR 0.9 (<1.2) APTT 21.6 L (22.0-30.0) sec Sodium (137-145) mmol/L Potassium (3.5-5.1) mmol/L Chloride (98-107) mmol/L Carbon Dioxide (22-30) mmol/L Anion Gap mmol/L BUN (7-17) mg/dL Creatinine (0.52-1.04) mg/dL Est GFR (CKD-EPI)AfAm (>60 ml/min/1.73 sqM) Est GFR (CKD-EPI)NonAf (>60 ml/min/1.73 sqM) Glucose (74-99) mg/dL Plasma Lactic Acid [place] (0.7-2.0) mmol/L Calcium (8.4-10.2) mg/dL Total Bilirubin (0.2-1.3) mg/dL AST (14-36) U/L ALT (4-34) U/L Alkaline Phosphatase (38-126) U/L Troponin I <0.012 (0.000-0.034) ng/mL Total Protein (6.3-8.2) g/dL Albumin (3.5-5.0) g/dL Urine Color Colorless Urine Appearance Cloudy H (Clear) Urine pH 6.0 (5.0-8.0) Ur Specific [place] 1.013 (1.001-1.035) Urine Protein Negative (Negative) Urine Glucose (UA) 4+ H (Negative) Urine Ketones 1+ H (Negative) Urine Blood Trace H (Negative) Urine Nitrite Negative (Negative) Urine Bilirubin Negative (Negative) Urine Urobilinogen <2.0 (<2.0) mg/dL Ur Leukocyte Esterase Large H (Negative) Urine RBC 52 H (0-5) /hpf Urine WBC >182 H (0-5) /hpf Urine WBC Clumps Many H (None) /hpf Ur Squamous Epith Cells 2 (0-4) /hpf Urine Bacteria Moderate H (None) /hpf Hyaline Casts 30 H (0-2) /lpf Urine Mucus Occasional H (None) /hpf Ur Yeast w Hyphae Few (None) /hpf Disposition Clinical Impression: UTI (urinary tract infection), Weakness Disposition: ADMITTED IP TO THIS [facility] Condition: Fair Referrals: Efren Acuna MD [Primary Care Provider] - 1-2 days Time of Disposition: 03:48
[2023-11-01] MEDS: IPRATROPIUM-ALBUTEROL 3 ML NEB INHALATION SCH ×4 (08:55→20:37)
--- NOTE | 2023-11-01 13:48 | P.HPIM ---
History of Present Illness 83-year-old female came in with complains of cough without any significant sputum production does have history of asthma was recently treated for asthmatic bronchitis. Patient has significant rhonchi bilaterally consistent with a se yandy bronchitis chest x-ray is not consistent with pneumonia. Patient denied any fever chills patient denied any UTI symptoms patient has mild leukocytosis was on systemic steroids at home. There is concern of dysphagia and there may be aspiration as well. Speech therapy was consulted. A she is presently on 2 L of oxygen doesn't use any oxygen at home. REVIEW OF SYSTEMS: CONSTITUTIONAL: No fever, no malaise, no fatigue. HEENT: No recent visual problems or hearing problems. Denied any sore throat. CARDIOVASCULAR: No chest pain, orthopnea, PND, no palpitations, no syncope. PULMONARY: no hemoptysis. GASTROINTESTINAL: No diarrhea, no nausea, no vomiting, no abdominal pain. NEUROLOGICAL: No headaches, no weakness, no numbness. HEMATOLOGICAL: Denies any bleeding or petechiae. GENITOURINARY: Denies any burning micturition, frequency, or urgency. MUSCULOSKELETAL/RHEUMATOLOGICAL: Denies any joint pain, swelling, or any muscle pain. ENDOCRINE: Denies any polyuria or polydipsia. The rest of the 14-point review of systems is negative. PHYSICAL EXAMINATION: GENERAL: The patient is alert and oriented x3, not in any acute distress. Well developed, well nourished. HEENT: Pupils are round and equally reacting to light. EOMI. No scleral icterus. No conjunctival pallor. Normocephalic, atraumatic. No pharyngeal erythema. No thyromegaly. CARDIOVASCULAR: S1 and S2 present. No murmurs, rubs, or gallops. PULMONARY: Severe rhonchi bilaterally and expiratory wheezing ABDOMEN: Soft, nontender, nondistended, normoactive bowel sounds. No palpable organomegaly. MUSCULOSKELETAL: No joint swelling or deformity. EXTREMITIES: No cyanosis, clubbing, or pedal edema. NEUROLOGICAL: Gross neurological examination did not reveal any focal deficits. SKIN: No rashes. Assessment and plan -Acute hypoxemia: Secondary to asthma exacerbation patient was started on oral steroids patient blood sugars are already high expected to go up patient long- acting insulin will be increased to 15 units and patient will be on high-dose sliding scale -Severity tracheobronchitis and this concern for aspiration patient will be started on Unasyn pulmonary will be consulted speech therapy will be consulted -Leukocytosis secondary to systemic steroids -Ruled out urinary tract infection Rocephin will be discontinued -Type 2 diabetes mellitus uncontrolled elevated blood sugars management as m entioned above -Proximal atrial fibrillation patient is sinus tachycardia at this time patient will be resumed on her home regimen along with anticoagulation -Hypertension -Left breast 2.7 cm mass for which patient will need imaging as outpatient DVT prophylaxis: Anticoagulation as mentioned above Past Medical History Past Medical History: Atrial Fibrillation, Diabetes Mellitus, Hypertension, Memory Impairment Additional Past Medical History / Comment(s): patient poor historian History of Any Multi-Drug Resistant Organisms: None Reported Past Surgical History: Appendectomy Additional Past Surgical History / Comment(s): patient poor historian Past Anesthesia/Blood Transfusion Reactions: No Reported Reaction Past Psychological History: No Psychological Hx Reported Smoking Status: Never smoker Past Alcohol Use History: None Reported Past Drug Use History: None Reported Medications and Allergies Home Medications Medication Instructions Recorded Confirmed Type Acetaminophen [Tylenol 8 Hour] 1,300 mg PO HS 08/25/23 10/31/23 History Acetaminophen [Tylenol Arthritis] 650 mg PO AC-BRKFST 08/25/23 10/31/23 History Apixaban [Eliquis] 5 mg PO AC-BID 08/25/23 10/31/23 History Atorvastatin [Lipitor] 40 mg PO AC-BRKFST 08/25/23 10/31/23 History Calcium Carbonate [Calcium] 600 mg PO HS 08/25/23 10/31/23 History Diclofenac Sodium Gel [Voltaren 1% 1 applic TOPICAL QID PRN 08/25/23 10/31/23 History Gel] Dulaglutide [Trulicity] 0.75 mg SQ WE 08/25/23 10/31/23 History Escitalopram [Lexapro] 20 mg PO DAILY 08/25/23 10/31/23 History Ferrous Sulfate [Iron (65 MG 325 mg PO HS 08/25/23 10/31/23 History Elemental)] Insulin Glargine-Yfgn [Semglee 10 units SQ HS 08/25/23 10/31/23 History (Yfgn) Pen] Ipratropium-Albuterol Nebulize 3 ml INHALATION RT-QID PRN 08/25/23 10/31/23 History [Duoneb 0.5 mg-3 mg/3 ml Soln] Levothyroxine Sodium [Synthroid] 12.5 mcg PO [facility] 08/25/23 10/31/23 History Loperamide HCl [Imodium A-D] 2 mg PO QID PRN 08/25/23 10/31/23 History Loratadine 10 mg PO HS 08/25/23 10/31/23 History Montelukast [Singulair] 10 mg PO HS 08/25/23 10/31/23 History [place]-3/Dha/Epa/Fish Oil [Fish Oil 1 cap PO HS 08/25/23 10/31/23 History 1,000 mg Softgel] Pantoprazole [Protonix] 40 mg PO [facility] 08/25/23 10/31/23 History Potassium Gluconate 99 mg PO HS 08/25/23 10/31/23 History Prevagen 1 tab PO BID 08/25/23 10/31/23 History Super B Complex 1 tab PO 08/25/23 10/31/23 History Tiotropium 2.5 Mcg/Puff [Spiriva 1 puff INHALATION RT-DAILY PRN 08/25/23 10/31/23 History Respimat 2.5 Mcg] dilTIAZem HCL [dilTIAZem HCL 24Hr 180 mg PO [facility] 08/25/23 10/31/23 History ER (Xr)] Gabapentin [Neurontin] 300 mg PO TID 3 Days #9 cap 09/22/23 10/31/23 Rx Budesonide-Formot 160-4.5 Mcg 2 puff INHALATION RT-BID #1 each 10/28/23 10/31/23 Rx [Symbicort 160-4.5 Mcg Inhaler] Losartan [Cozaar] 50 mg PO DAILY #30 tab 10/28/23 10/31/23 Rx predniSONE See Taper PO DAILY 10/31/23 10/31/23 History Allergies Allergy/AdvReac Type Severity Reaction Status Date / Time Penicillins Allergy Rash/Hives Verified 10/31/23 21:35 Physical Exam Vitals: Vital Signs Temp Pulse Resp BP Pulse Ox 11/01/23 12:39 110 H 18 11/01/23 12:32 112 H 18 11/01/23 09:02 111 H 11/01/23 08:55 106 H 18 11/01/23 07:22 98.1 F 105 H 18 170/96 11/01/23 05:00 104 H 22 168/94 96 11/01/23 04:00 108 H 20 169/94 95 11/01/23 03:00 107 H 18 173/92 95 11/01/23 02:00 111 H 18 179/96 95 11/01/23 01:00 110 H 17 160/77 96 11/01/23 00:00 113 H 16 131/70 96 10/31/23 22:57 103 H 10/31/23 22:46 106 H 10/31/23 22:45 105 H 16 144/79 94 L 10/31/23 20:50 88 10/31/23 20:40 84 10/31/23 18:56 20 10/31/23 18:49 97.6 F 100 20 139/81 96 Intake and Output 10/31/23 11/01/23 11/01/23 22:59 06:59 14:59 Other: Weight 97.522 kg Results CBC & Chem 7: 10/31/23 20:00 10/31/23 20:00 Labs: Abnormal Lab Results - Last 24 Hours (Table) 10/31/23 10/31/23 10/31/23 Range/Units 20:00 20:00 20:13 WBC 10.8 H (3.8-10.6) k/uL Neutrophils # 7.9 H (1.3-7.7) k/uL APTT 21.6 L (22.0-30.0) sec Sodium 136 L (137-145) mmol/L Glucose 225 H (74-99) mg/dL Total Protein 5.9 L (6.3-8.2) g/dL Albumin 3.1 L (3.5-5.0) g/dL Urine Appearance (Clear) Urine Glucose (UA) (Negative) Urine Ketones (Negative) Urine Blood (Negative) Ur Leukocyte Esterase (Negative) Urine RBC (0-5) /hpf Urine WBC (0-5) /hpf Urine WBC Clumps (None) /hpf Urine Bacteria (None) /hpf Hyaline Casts (0-2) /lpf Urine Mucus (None) /hpf 11/01/23 Range/Units 02:05 WBC (3.8-10.6) k/uL Neutrophils # (1.3-7.7) k/uL APTT (22.0-30.0) sec Sodium (137-145) mmol/L Glucose (74-99) mg/dL Total Protein (6.3-8.2) g/dL Albumin (3.5-5.0) g/dL Urine Appearance Cloudy H (Clear) Urine Glucose (UA) 4+ H (Negative) Urine Ketones 1+ H (Negative) Urine Blood Trace H (Negative) Ur Leukocyte Esterase Large H (Negative) Urine RBC 52 H (0-5) /hpf Urine WBC >182 H (0-5) /hpf Urine WBC Clumps Many H (None) /hpf Urine Bacteria Moderate H (None) /hpf Hyaline Casts 30 H (0-2) /lpf Urine Mucus Occasional H (None) /hpf
[2023-11-01 17:28] LABS: Glucose,Whole Blood 263 mg/dL (70-110)
[2023-11-01] MEDS: GABAPENTIN 300 MG CAP PO SCH ×2 (17:30→21:03)
[2023-11-01] MEDS: INSULIN ASPART (NovoLOG) 100 UNIT/ML VIAL SQ SCH ×2 (17:30→21:04)
[2023-11-01] MEDS: APIXABAN 5 MG TAB PO SCH (17:31)
[2023-11-01] MEDS: AMPICILLIN-SULBACTAM 3 GM in SODIUM CHLORIDE 0.9% 100 ML IVPB SCH ×2 (17:32→23:29)
[2023-11-01] MEDS: SYMBICORT 160-4.5 MCG INHALER INHALATION SCH (20:37)
[2023-11-01 20:55] LABS: Glucose,Whole Blood 242 mg/dL (70-110)
[2023-11-01] MEDS ORDERED: INSULIN DETEMIR (LEVEMIR) 100 UNIT/ML SYR SQ SCH (21:00)
[2023-11-01] MEDS: ACETAMINOPHEN TAB 500 MG TAB PO SCH (21:03)
[2023-11-01] MEDS: INSULIN DETEMIR (LEVEMIR) 100 UNIT/ML SYR SQ SCH (23:30)
[2023-11-01] MEDS ORDERED: ZINC OXIDE PASTE (Z-GUARD) 1 APPLIC TOPICAL PRN (23:45)
[2023-11-02] MEDS: LEVOTHYROXINE 25 MCG TAB PO SCH (05:42)
[2023-11-02 07:29] LABS: Glucose,Whole Blood 194 mg/dL (70-110)
[2023-11-02] MEDS ORDERED: PANTOPRAZOLE 40 MG TABLET PO SCH (07:30)
[2023-11-02] MEDS: SYMBICORT 160-4.5 MCG INHALER INHALATION SCH ×2 (07:47→18:24)
[2023-11-02] MEDS: IPRATROPIUM-ALBUTEROL 3 ML NEB INHALATION SCH ×4 (07:47→18:24)
[2023-11-02] MEDS: LOSARTAN 50 MG TAB PO SCH (08:50)
[2023-11-02] MEDS: DILTIAZEM CD 180 MG CAP.ER.24H PO SCH (08:50)
[2023-11-02] MEDS: ATORVASTATIN 40 MG TAB PO SCH (08:50)
[2023-11-02] MEDS: APIXABAN 5 MG TAB PO SCH ×2 (08:50→17:58)
[2023-11-02] MEDS: GABAPENTIN 300 MG CAP PO SCH ×3 (08:50→20:43)
[2023-11-02] MEDS: INSULIN ASPART (NovoLOG) 100 UNIT/ML VIAL SQ SCH ×4 (08:50→20:49)
[2023-11-02] MEDS: AMPICILLIN-SULBACTAM 3 GM in SODIUM CHLORIDE 0.9% 100 ML IVPB SCH ×3 (08:51→23:51)
[2023-11-02] MEDS: ACETAMINOPHEN TAB 325 MG TAB PO SCH (08:51)
[2023-11-02] MEDS: ESCITALOPRAM 20 MG TAB PO SCH (08:51)
[2023-11-02] MEDS: predniSONE 20 MG TAB PO SCH (08:51)
[2023-11-02 11:02] LABS: HCT 35.2 % (37.2-46.3); HGB 11.2 g/dL (12.0-15.0); MCH 27.7 pg (27.0-32.0); MCHC 31.8 g/dL (32.0-37.0); MCV 86.9 FL (80.0-97.0); Mean Platelet Volume 10.9 FL (9.5-12.2); NRBC Per 100 WBC 0 X 10*3/uL (0.00-0.01); Platelet Count 189 X 10*3/uL (140-440); RBC 4.05 X 10*6/uL (4.10-5.20); RDW 14.1 % (11.5-14.5); WBC 9.69 X 10*3/uL (4.50-10.00)
[2023-11-02 11:18] LABS: BUN/Creat Ratio 20.38 Ratio (12.00-20.00); Blood Urea Nitrogen 16.3 mg/dL (9.0-27.0); Calcium 8.7 mg/dL (8.7-10.3); Carbon Dioxide 24.8 mmol/L (21.6-31.8); Chloride 104 mmol/L (96-109); Glucose 218 mg/dL (70-110); Magnesium 1.9 mg/dL (1.5-2.4); Potassium 4.4 mmol/L (3.5-5.5); Sodium 140 mmol/L (135-145)
[2023-11-02 12:27] LABS: Glucose,Whole Blood 255 mg/dL (70-110)
--- NOTE | 2023-11-02 15:22 | P.CNPUL ---
History of Present Illness Consult date: 11/02/23 Reason for consult: dyspnea History of present illness: I am seeing this 80-year-old female patient for symptoms of asthma activity, cough, chest tightness and wheezing. The patient continues to bronchospastic and she continues to have significant amount of rhonchi heard bilaterally on physical examination. For that reason, she was admitted to the hospital. She was originally seen in consultation on 10/23/2023 for shortness of breath and wheezing. The patient is known to have bronchial asthma. She has also hypertension, diabetes mellitus type 2 and chronic into fibrillation. She came into the emergency department on 10/23/2023 and she was also found to be in A. fib RVR. She was started on Cardizem drip and she converted to normal sinus rhythm. Chest x-ray at that time showed some prominent pulmonary vessel findings. There was no evidence of any pneumonia. During the earlier hospitalization, the patient was given treatment for A. fib and the patient was subsequently placed on anticoagulation with Eliquis 5 mg by mouth twice a day. At that time, the viral panel was negative. The patient comes in with the similar complaints. She is currently on 2 L of action by nasal cannula. Repeat chest x-ray showed no clear evidence of any pneumonia. She has may have underlying urinary tract infection. The patient was given a urine culture. The patient was also covered with IV Unasyn. She is also on DuoNeb the blood yasmin tments [id number], she is also on prednisone burst taper currently at 40 mg by mouth daily. She is on Levemir insulin 15 units and a sliding scale coverage. Outpatient medications have been resumed. EKG is sinus. Review of Systems REVIEW OF SYSTEMS: Generalized weakness, no fever or chills. CONSTITUTIONAL: No fever, no malaise, no fatigue. HEENT: No recent visual problems or hearing problems. Denied any sore throat. CARDIOVASCULAR: No chest pain, orthopnea, PND, no palpitations, no syncope. PULMONARY: shortness of breath, no cough, no hemoptysis. , Increased cough and congestion and wheezing GASTROINTESTINAL: No nausea or vomiting or emesis NEUROLOGICAL: No headaches, no weakness, no numbness. HEMATOLOGICAL: Denies any bleeding or petechiae. GENITOURINARY: Denies any burning micturition, frequency, or urgency. MUSCULOSKELETAL/RHEUMATOLOGICAL: Denies any joint pain, swelling, or any muscle pain. ENDOCRINE: Denies any polyuria or polydipsia. Past Medical History Past Medical History: Atrial Fibrillation, Diabetes Mellitus, Hypertension, Memory Impairment Additional Past Medical History / Comment(s): patient poor historian History of Any Multi-Drug Resistant Organisms: None Reported Past Surgical History: Appendectomy Additional Past Surgical History / Comment(s): patient poor historian Past Anesthesia/Blood Transfusion Reactions: No Reported Reaction Past Psychological History: No Psychological Hx Reported Smoking Status: Never smoker Past Alcohol Use History: None Reported Past Drug Use History: None Reported Medications and Allergies Home Medications Medication Instructions Recorded Confirmed Type Acetaminophen [Tylenol 8 Hour] 1,300 mg PO HS 08/25/23 10/31/23 History Acetaminophen [Tylenol Arthritis] 650 mg PO AC-BRKFST 08/25/23 10/31/23 History Apixaban [Eliquis] 5 mg PO AC-BID 08/25/23 10/31/23 History Atorvastatin [Lipitor] 40 mg PO AC-KFST 08/25/23 10/31/23 History Calcium Carbonate [Calcium] 600 mg PO HS 08/25/23 10/31/23 History Diclofenac Sodium Gel [Voltaren 1% 1 applic TOPICAL QID PRN 08/25/23 10/31/23 History Gel] Dulaglutide [Trulicity] 0.75 mg SQ WE 08/25/23 10/31/23 History Escitalopram [Lexapro] 20 mg PO DAILY 08/25/23 10/31/23 History Ferrous Sulfate [Iron (65 MG 325 mg PO HS 08/25/23 10/31/23 History Elemental)] Insulin Glargine-Yfgn [Semglee 10 units SQ HS 08/25/23 10/31/23 History (Yfgn) Pen] Ipratropium-Albuterol Nebulize 3 ml INHALATION RT-QID PRN 08/25/23 10/31/23 History [Duoneb 0.5 mg-3 mg/3 ml Soln] Levothyroxine Sodium [Synthroid] 12.5 mcg PO AC-BRKFST 08/25/23 10/31/23 History Loperamide HCl [Imodium A-D] 2 mg PO QID PRN 08/25/23 10/31/23 History Loratadine 10 mg PO HS 08/25/23 10/31/23 History Montelukast [Singulair] 10 mg PO HS 08/25/23 10/31/23 History [place]-3/Dha/Epa/Fish Oil [Fish Oil 1 cap PO HS 08/25/23 10/31/23 History 1,000 mg Softgel] Pantoprazole [Protonix] 40 mg PO AC-BRKFST 08/25/23 10/31/23 History Potassium Gluconate 99 mg PO HS 08/25/23 10/31/23 History Prevagen 1 tab PO BID 08/25/23 10/31/23 History Super B Complex 1 tab PO HS 08/25/23 10/31/23 History Tiotropium 2.5 Mcg/Puff [Spiriva 1 puff INHALATION RT-DAILY PRN 08/25/23 10/31/23 History Respimat 2.5 Mcg] dilTIAZem HCL [dilTIAZem HCL 24Hr 180 mg PO [facility] 08/25/23 10/31/23 History ER (Xr)] Gabapentin [Neurontin] 300 mg PO TID 3 Days #9 cap 09/22/23 10/31/23 Rx Budesonide-Formot 160-4.5 Mcg 2 puff INHALATION RT-BID #1 each 10/28/23 10/31/23 Rx [Symbicort 160-4.5 Mcg Inhaler] Losartan [Cozaar] 50 mg PO DAILY #30 tab 10/28/23 10/31/23 Rx predniSONE See Taper PO DAILY 10/31/23 10/31/23 History Allergies Allergy/AdvReac Type Severity Reaction Status Date / Time Penicillins Allergy Rash/Hives Verified 10/31/23 21:35 Physical Exam Vitals: Vital Signs Temp Pulse Pulse Resp BP BP Pulse Ox 11/02/23 12:26 97.7 F 104 H 18 149/78 92 L 11/02/23 11:27 102 H 11/02/23 11:19 104 H 11/02/23 08:01 100 11/02/23 07:51 95 11/02/23 07:48 102 H 11/02/23 07:25 98.5 F 94 18 168/75 97 11/02/23 01:50 97.4 F L 104 H 19 168/92 98 01/16/24 22:30 106 H 16 11/01/23 22:15 98.0 F 106 H 17 131/71 97 11/01/23 21:41 98.2 F 111 H 16 141/67 98 11/01/23 20:45 107 H 11/01/23 20:37 102 H 11/01/23 19:00 110 H 15 142/78 94 L 11/01/23 17:05 113 H 20 11/01/23 16:54 108 H 18 Intake and Output 11/02/23 11/02/23 11/02/23 06:59 14:59 22:59 Output Total 900 550 Balance -900 -550 Output: Urine 900 550 Other: Voiding Method External Catheter # Voids 1 No acute distress, oriented 3. No respiratory distress. Currently on room air. Her current pulse ox is 95% HEENT examination is grossly unremarkable. Mucous membranes are moist. No oral lesions. Neck supple. Full range of motion. No adenopathy thyromegaly or neck vein distention. Cardiovascular examination reveals regular rhythm rate. S1-S2 normal. No S3 or S4. No discernible murmur noted. Lungs reveal minimal scattered rhonchi. The patient also has some expiratory wheezing. Breathing is nonlabored and she is able to communicate. Abdomen soft bowel sounds are heard. No masses or tenderness. Extremities are intact. No cyanosis clubbing or edema. Skin is without rash or lesion. Neurologic examination is brief but nonfocal. Results - Laboratory Findings CBC and BMP: 11/02/23 07:02 11/02/23 07:02 PT/INR, D-dimer PT 10.2 sec (10.0-12.5) 10/31/23 20:13 INR 0.9 (<1.2) 10/31/23 20:13 Abnormal lab findings: Abnormal Labs 10/31/23 10/31/23 10/31/23 20:00 20:00 20:13 WBC 10.8 H RBC Hgb Hct MCHC Neutrophils # 7.9 H APTT 21.6 L Sodium 136 L BUN/Creatinine Ratio Glucose 225 H POC Glucose (mg/dL) Total Protein 5.9 L Albumin 3.1 L Urine Appearance Urine Glucose (UA) Urine Ketones Urine Blood Ur Leukocyte Esterase Urine RBC Urine WBC Urine WBC Clumps Urine Bacteria Hyaline Casts Urine Mucus 11/01/23 11/01/23 11/01/23 02:05 17:26 20:53 WBC RBC Hgb Hct MCHC Neutrophils # APTT Sodium BUN/Creatinine Ratio Glucose POC Glucose (mg/dL) 263 H 242 H Total Protein Albumin Urine Appearance Cloudy H Urine Glucose (UA) 4+ H Urine Ketones 1+ H Urine Blood Trace H Ur Leukocyte Esterase Large H Urine RBC 52 H Urine WBC >182 H Urine WBC Clumps Many H Urine Bacteria Moderate H Hyaline Casts 30 H Urine Mucus Occasional H 11/02/23 11/02/23 11/02/23 07:02 07:02 07:28 WBC RBC 4.05 L Hgb 11.2 L Hct 35.2 L MCHC 31.8 L Neutrophils # APTT Sodium BUN/Creatinine Ratio 20.38 H Glucose 218 H POC Glucose (mg/dL) 194 H Total Protein Albumin Urine Appearance Urine Glucose (UA) Urine Ketones Urine Blood Ur Leukocyte Esterase Urine RBC Urine WBC Urine WBC Clumps Urine Bacteria Hyaline Casts Urine Mucus 11/02/23 12:25 WBC RBC Hgb Hct MCHC Neutrophils # APTT Sodium BUN/Creatinine Ratio Glucose POC Glucose (mg/dL) 255 H Total Protein Albumin Urine Appearance Urine Glucose (UA) Urine Ketones Urine Blood Ur Leukocyte Esterase Urine RBC Urine WBC Urine WBC Clumps Urine Bacteria Hyaline Casts Urine Mucus - Diagnostic Findings Chest x-ray: image reviewed Assessment and Plan Plan: Asthma exacerbation with ongoing bronchospasm wheezing and secondary shortness of breath. Chest x-ray revealed no evidence of any pneumonia. Viral panel has been negative. Obesity with a BMI of 35.8 Diabetes mellitus type 2, currently on Levemir insulin at 15 units along with a sliding scale coverage. Hypertension Paroxysmal A. fib, current rhythm is sinus. The patient on anticoagulation with Eliquis. Normal echocardiogram based on her recent study on 10/25/2023 Suspect UTI, currently under investigation patient is currently on Unasyn. Hypertension Hyperlipidemia Left breast mass measuring 2.7 cm in size when he further workup at a later stage Sigmoid diverticulosis Small hiatal hernia and the patient has undergone previous Salma wrap Plan Agree on the current treatment Continue bronchodilators and steroids and the patient is currently on prednisone burst taper Continue Unasyn Check pro calcitonin level Chest x-ray showed no clear evidence of pneumonia Titrate oxygen flow to maintain saturation above 90%, currently on room air oxygen Resume all medications Workup for a breast mass per medicine.
[2023-11-02 17:09] LABS: Glucose,Whole Blood 278 mg/dL (70-110)
[2023-11-02 20:29] LABS: Glucose,Whole Blood 227 mg/dL (70-110)
[2023-11-02] MEDS: ACETAMINOPHEN TAB 500 MG TAB PO SCH (20:42)
[2023-11-02] MEDS: INSULIN DETEMIR (LEVEMIR) 100 UNIT/ML SYR SQ SCH (20:49)
[2023-11-02] MEDS: BENZOCAINE/MENTHOL LOZENG 1 EACH LOZENGE MUCOUS MEM PRN (23:49)
--- NOTE | 2023-11-03 06:03 | P.PN ---
Subjective Progress Note Date: 11/02/23 83-year-old female came in with complains of cough without any significant sputum production does have history of asthma was recently treated for asthmatic bronchitis. Patient has significant rhonchi bilaterally consistent with a severe bronchitis chest x-ray is not consistent with pneumonia. Patient denied any fever chills patient denied any UTI symptoms patient has mild leukocytosis was on systemic steroids at home. There is concern of dysphagia and there may be aspiration as well. Speech therapy was consulted. A she is presently on 2 L of oxygen doesn't use any oxygen at home. 11/02/2023 Patient is seen in follow-up today lethargic although arousable, alert and oriented 2-3. Patient denies any shortness of breath although is having continued cough with some expiratory wheezing noted. Pulmonary was consulted and all medications have been resumed. Speech therapy also consulted re commending nothing by mouth for now and modified barium swallow tomorrow to assess for possible aspiration. Patient is continued on IV antibiotics empirically and will await swallow study. Patient is currently afebrile denies chest pain or palpitations. Patient with significant weakness will have PT/OT therapy evaluate the patient with plans on returning home with home care this patient has run out of remaining days at rehab. Social work is following working on discharge planning. Review of systems: Constitutional: reports of fatigue, no fever, or chills Cardiovascular: No reports of chest pain or palpitations Respiratory: No reports of worsening shortness of breath, reports cough GI: No reports of nausea, vomiting, or diarrhea : No reports of dysuria or retention Neurovascular: reports of generalized weakness All medications have been reviewed PHYSICAL EXAMINATION: GENERAL: The patient is alert and oriented x2-3, not in any acute distress. Well developed, well nourished. Obese HEENT: Pupils are round and equally reacting to light. EOMI. No scleral icterus. No conjunctival pallor. Normocephalic, atraumatic. No pharyngeal erythema. No thyromegaly. CARDIOVASCULAR: S1 and S2 present. No murmurs, rubs, or gallops. PULMONARY: Severe rhonchi bilaterally and expiratory wheezing with bronchial congestion with cough ABDOMEN: Soft, obese, nontender, nondistended, normoactive bowel sounds. No palpable organomegaly. MUSCULOSKELETAL: No joint swelling or deformity. EXTREMITIES: No cyanosis, clubbing, or pedal edema. NEUROLOGICAL: Gross neurological examination did not reveal any focal deficits. Diffusely weak SKIN: No rashes. Assessment and plan -Acute hypoxemia: Secondary to asthma exacerbation -Severity tracheobronchitis with concern for aspiration -Leukocytosis reactive, secondary to systemic steroids -Ruled out urinary tract infection, Rocephin will be discontinued -Type 2 diabetes mellitus uncontrolled elevated blood sugars -Paroxysmal atrial fibrillation, currently rate controlled -Hypertension -Left breast 2.7 cm mass for which patient will need imaging as outpatient -DVT prophylaxis: Anticoagulation as mentioned above -GI prophylaxis Plan: Patient is continued on antibiotics and will consult pulmonary and appreciate input recommendations as patient is significantly wheezing with concerns of possible aspiration Consult to speech placed and patient will be nothing by mouth and will undergo modified barium swallow per speech tomorrow Patient is diabetic recommend continuing to monitor blood sugars before meals and at bedtime Home medications reviewed and resumed and okay for necessary medications until swallow study is performed Wean FiO2 as tolerated PT/OT therapy to evaluate Social work following the patient has no remaining days left to go to rehab with plans on going home with home care The impression and plan of care has been dictated by Dulce Fox, Nurse Practitioner as directed. Dr. Tip MD I have performed a history and examination and MDM of this patient, discussed the same with the dictator, and agree with the dictator's assessment and plan as written ,documented as a scribe. Based on total visit time, I have performed more than 50% of the visit. Objective - Vital Signs Vital signs: Vital Signs Temp 98.5 F 11/02/23 07:25 Pulse 100 11/02/23 08:01 Resp 18 11/02/23 07:25 BP 168/75 11/02/23 07:25 Pulse Ox 95 11/02/23 07:51 FiO2 Intake & Output 11/01/23 11/02/23 11/02/23 18:59 06:59 18:59 Output Total 900 Balance -900 Weight 97.522 kg Output: Urine 900 Other: Voiding Method External Catheter # Voids 1 1 # Bowel Movements 1 - Labs CBC & Chem 7: 11/02/23 07:02 11/02/23 07:02 Labs: Abnormal Lab Results - Last 24 Hours (Table) 11/01/23 11/01/23 11/02/23 Range/Units 17:26 20:53 07:28 POC Glucose (mg/dL) 263 H 242 H 194 H (70-110) mg/dL
[2023-11-03] MEDS: LEVOTHYROXINE 25 MCG TAB PO SCH (06:11)
[2023-11-03 07:12] LABS: Glucose,Whole Blood 138 mg/dL (70-110)
[2023-11-03] MEDS: IPRATROPIUM-ALBUTEROL 3 ML NEB INHALATION SCH ×4 (08:26→18:14)
[2023-11-03] MEDS: SYMBICORT 160-4.5 MCG INHALER INHALATION SCH ×2 (08:26→18:14)
[2023-11-03] MEDS: LOSARTAN 50 MG TAB PO SCH (08:54)
[2023-11-03] MEDS: ESCITALOPRAM 20 MG TAB PO SCH (08:54)
[2023-11-03] MEDS: ATORVASTATIN 40 MG TAB PO SCH (08:54)
[2023-11-03] MEDS: AMPICILLIN-SULBACTAM 3 GM in SODIUM CHLORIDE 0.9% 100 ML IVPB SCH ×2 (08:54→16:23)
[2023-11-03] MEDS: APIXABAN 5 MG TAB PO SCH ×2 (08:54→18:02)
[2023-11-03] MEDS: GABAPENTIN 300 MG CAP PO SCH ×3 (08:54→21:19)
[2023-11-03] MEDS: predniSONE 20 MG TAB PO SCH (08:54)
[2023-11-03] MEDS: ACETAMINOPHEN TAB 325 MG TAB PO SCH (08:54)
[2023-11-03] MEDS: PANTOPRAZOLE 40 MG/10 ML VIAL IVP SCH ×2 (08:55→21:20)
[2023-11-03] MEDS: INSULIN ASPART (NovoLOG) 100 UNIT/ML VIAL SQ SCH ×4 (08:55→21:18)
[2023-11-03] MEDS: DILTIAZEM CD 180 MG CAP.ER.24H PO SCH (08:55)
--- NOTE | 2023-11-03 10:32 | CDI ---
Documentation Clarification Form Date: 11/03/2023 10:20:22 AM From: Alana Mg RN CCDS Phone: [phone] Admit Date: 11/01/2023 03:41:00 AM Patient Name: Flores Chadwick Visit Number: [id number] Discharge Date: ATTENTION: The Clinical Documentation Specialists (CDI) and [facility] Coding Staff appreciate your assistance in clarifying documentation. Please respond to the clarification below the line at the bottom and electronically sign. The CDI & [facility] Coding staff will review the response and follow-up if needed. Please note: Queries are made part of the Legal Health Record. If you have any questions, please contact the author of this message via ITS. Dr. Zeina Whelan A Bilateral Buttock Stage 2 pressure ulcer is documented by Nursing 11/01, Physical assessment / Integumentary assessment. Based on this information and the findings below, is there an additional diagnosis that is clinically appropriate for this patient? History/Risk Factors: 83 year old female presents to the ED with cough and sputum production. Medical History: Asthma, DM2, HTN and Atrial fibrillation. 11/01, H&P Clinical Indicators: Location: Bilateral buttock Wound description: Excoriation, warm, moist, smooth with erythema Treatment: Z-Guard (Zinc oxide paste) Absorbant underpad, Barrier protection, check hourly, lotion/ moisture cream, Turn Q2H, Purewick placed to suction. Is there an additional diagnosis that is clinically appropriate for this patient? [ x] Bilateral Buttock Pressure Ulcer Stage 2 [ ] Other condition, please specify [ ] Unable to determine Clinical Definitions: Stage 1 Pressure Ulcer: intact skin, non-blanching redness of local area Stage 2 Pressure Ulcer: Partial thickness, loss of dermis, pink wound bed Stage 3 Pressure Ulcer: Full thickness tissue loss Stage 4 Pressure Ulcer: Full thickness tissue loss with exposed bone, tendon, or muscle. Unstageable pressure ulcer: Full thickness tissue loss in which the base of the ulcer is covered by slough (yellow, marley, arroyo, green or brown) and/or eschar (marley, brown or black) in the wound bed. (Template Last Revised: December 2020) JIMENA
[2023-11-03 11:56] LABS: Glucose,Whole Blood 163 mg/dL (70-110)
[2023-11-03] MEDS: BENZOCAINE/MENTHOL LOZENG 1 EACH LOZENGE MUCOUS MEM PRN ×3 (11:58→21:17)
--- NOTE | 2023-11-03 14:52 | FL ---
COMPARISON: NONE DATE OF EXAM: 11/03/2023 HISTORY: Dysphagia. A number of thin and thick substances were ingested under the care of the department of speech pathol ogy. There is no evidence of aspiration or penetration. There is no evidence of obstruction. DAP n ot provided. IMPRESSION: 1. No evidence of aspiration or penetration.
--- NOTE | 2023-11-03 15:48 | P.PN ---
Subjective Progress Note Date: 11/03/23 83-year-old female came in with complains of cough without any significant sputum production does have history of asthma was recently treated for asthmatic bronchitis. Patient has significant rhonchi bilaterally consistent with a severe bronchitis chest x-ray is not consistent with pneumonia. Patient denied any fever chills patient denied any UTI symptoms patient has mild leukocytosis was on systemic steroids at home. There is concern of dysphagia and there may be aspiration as well. Speech therapy was consulted. A she is presently on 2 L of oxygen doesn't use any oxygen at home. 11/02/2023 Patient is seen in follow-up today lethargic although arousable, alert and oriented 2-3. Patient denies any shortness of breath although is having continued cough with some expiratory wheezing noted. Pulmonary was consulted and all medications have been resumed. Speech therapy also consulted re commending nothing by mouth for now and modified barium swallow tomorrow to assess for possible aspiration. Patient is continued on IV antibiotics empirically and will await swallow study. Patient is currently afebrile denies chest pain or palpitations. Patient with significant weakness will have PT/OT therapy evaluate the patient with plans on returning home with home care this patient has run out of remaining days at rehab. Social work is following working on discharge planning. 11/03/2022 Patient is seen in follow-up today underwent modified barium swallow study with speech and was successful with no signs of aspiration noted. Patient to resume diet. Pro-calcitonin ordered and pending and will monitor off antibiotics. Patient did have a urinalysis done in the ER which resulted with VRE enterococcus and initially was placed on antibiotics. Patient likely a contamination as patient is denying any pain, burning, or frequency with urination and white count is normal and patient remains afebrile. Continue monitoring blood sugars and resume consistent carb diet with aspiration precautions. Patient was evaluated by physical therapy almost maximal assistance and plan is for returning home with home care this patient has used all of her days at a rehab. Concerned with safe discharge plan and will discuss further with case management/social work along with family about discharge planning. Review of systems: Constitutional: reports of fatigue, no fever, or chills Cardiovascular: No reports of chest pain or palpitations Respiratory: No reports of worsening shortness of breath, reports cough GI: No reports of nausea, vomiting, or diarrhea : No reports of dysuria or retention Neurovascular: reports of generalized weakness All medications have been reviewed PHYSICAL EXAMINATION: GENERAL: The patient is alert and oriented x2-3, not in any acute distress. Well developed, well nourished. Obese HEENT: Pupils are round and equally reacting to light. EOMI. No scleral icterus. No conjunctival pallor. Normocephalic, atraumatic. No pharyngeal erythema. No thyromegaly. CARDIOVASCULAR: S1 and S2 present. No murmurs, rubs, or gallops. PULMONARY: rhonchi bilaterally and expiratory wheezing with bronchial congestion with cough ABDOMEN: Soft, obese, nontender, nondistended, normoactive bowel sounds. No palpable organomegaly. MUSCULOSKELETAL: No joint swelling or deformity. EXTREMITIES: No cyanosis, clubbing, or pedal edema. NEUROLOGICAL: Gross neurological examination did not reveal any focal deficits. Diffusely weak SKIN: No rashes. Assessment: -Acute hypoxemia: Secondary to asthma exacerbation -Severity tracheobronchitis with concern for aspiration, aspiration ruled out per modified barium swallow study -Leukocytosis reactive, secondary to systemic steroids -Ruled out urinary tract infection, Rocephin will be discontinued -Type 2 diabetes mellitus uncontrolled elevated blood sugars -Paroxysmal atrial fibrillation, currently rate controlled -Stage II bilateral buttock pressure ulcer, present on admission -Hypertension -Obesity with a BMI of 35.8 -Left breast 2.7 cm mass for which patient will need imaging as outpatient -DVT prophylaxis: Anticoagulation as mentioned above -GI prophylaxis Plan: Patient is being followed by pulmonary. Consult to speech placed and underwent modified barium swallow with no signs of aspiration Patient did have urinalysis done in the ER and culture showing Gela with enterococcus VRE although suspicion is low as patient is denying any burning or pain or frequency with urination Patient is currently off antibiotics and pro-calcitonin is ordered and pending Patient is diabetic recommend continuing to monitor blood sugars before meals and at bedtime Home medications reviewed and resumed and will resume diet and monitor area continue with aspiration precautions and supervision with meals, head of the bed elevated 30-45 at all times Patient is on room air PT/OT therapy to evaluate and recommend daily. Case management/social work following a will discuss further on safe discharge planning as physical therapy is recommending rehab although patient has used all of her days and plans on g oing home with home care. Patient is extremely high risk for falls and further readmissions Possible discharge planning in the next 24-48 hours The impression and plan of care has been dictated by Dulce Fox, Nurse Practitioner as directed. Dr. Tip MD I have performed a history and examination and MDM of this patient, discussed the same with the dictator, and agree with the dictator's assessment and plan as written ,documented as a scribe. Based on total visit time, I have performed more than 50% of the visit. Objective - Vital Signs Vital signs: Vital Signs Temp 97.9 F 11/03/23 07:13 Pulse 90 11/03/23 08:40 Resp 20 11/03/23 07:13 BP 135/78 11/03/23 07:13 Pulse Ox 95 11/03/23 07:13 FiO2 Intake & Output 11/02/23 11/03/23 11/03/23 18:59 06:59 18:59 Output Total 1050 550 Balance -1050 -550 Output: Urine 1050 550 Other: Voiding Method External Catheter External Catheter # Voids 1 # Bowel Movements 0 - Labs CBC & Chem 7: 11/02/23 07:02 11/02/23 07:02 Labs: Abnormal Lab Results - Last 24 Hours (Table) 11/02/23 11/02/23 11/02/23 Range/Units 07:02 07:02 12:25 RBC 4.05 L (4.10-5.20) X 10*6/uL Hgb 11.2 L (12.0-15.0) g/dL Hct 35.2 L (37.2-46.3) % MCHC 31.8 L (32.0-37.0) g/dL BUN/Creatinine Ratio 20.38 H (12.00-20.00) Ratio Glucose 218 H (70-110) mg/dL POC Glucose (mg/dL) 255 H (70-110) mg/dL 11/02/23 11/02/23 11/03/23 Range/Units 17:08 20:28 07:11 RBC (4.10-5.20) X 10*6/uL Hgb (12.0-15.0) g/dL Hct (37.2-46.3) % MCHC (32.0-37.0) g/dL BUN/Creatinine Ratio (12.00-20.00) Ratio Glucose (70-110) mg/dL POC Glucose (mg/dL) 278 H 227 H 138 H (70-110) mg/dL Microbiology - Last 24 Hours (Table) 11/01/23 02:05 Urine Culture - Preliminary Urine,Voided Gela albicans
--- NOTE | 2023-11-03 16:36 | P.PN ---
Subjective Progress Note Date: 11/03/23 I am seeing this 80-year-old female patient for symptoms of asthma activity, cough, chest tightness and wheezing. The patient continues to bronchospastic and she continues to have significant amount of rhonchi heard bilaterally on physical examination. For that reason, she was admitted to the hospital. She was originally seen in consultation on 10/23/2023 for shortness of breath and wheezing. The patient is known to have bronchial asthma. She has also hypertension, diabetes mellitus type 2 and chronic into fibrillation. She came into the emergency department on 10/23/2023 and she was also found to be in A. fib RVR. She was started on Cardizem drip and she converted to normal sinus rhythm. Chest x-ray at that time showed some prominent pulmonary vessel findings. There was no evidence of any pneumonia. During the earlier hospitalization, the patient was given treatment for A. fib and the patient was subsequently placed on anticoagulation with Eliquis 5 mg by mouth twice a day. At that time, the viral panel was negative. The patient comes in with the similar complaints. She is currently on 2 L of action by nasal cannula. Repeat chest x-ray showed no clear evidence of any pneumonia. She has may have underlying urinary tract infection. The patient was given a urine culture. The patient was also covered with IV Unasyn. She is also on DuoNeb the blood treatments [id number], she is also on prednisone burst taper currently at 40 mg by mouth daily. She is on Levemir insulin 15 units and a sliding scale coverage. Outpatient medications have been resumed. EKG is sinus. On today's evaluation of ,, the patient is being seen for a follow-up. There is bronchospastic and wheezy. Remains on bronchodilators. UA was abnormal and the patient had VRE and based on that, the patient will be placed on appropriate antibiotics. Currently she is on IV Unasyn. I suggest putting the patient on daptomycin. She also underwent a modified barium swallow and there was no signs of any aspiration. She is afebrile and hemodynamically stable. She remains on DuoNeb updrafts. She is on prednisone burst taper starting with 40 mg to be gradually tapered down. She is on room air oxygen with a pulse ox of 94%. Objective - Vital Signs Vital signs: Vital Signs Temp 97.9 F 11/03/23 12:59 Pulse 92 11/03/23 15:20 Resp 18 11/03/23 12:59 BP 126/64 11/03/23 12:59 Pulse Ox 94 L 11/03/23 12:59 FiO2 Intake & Output 11/02/23 11/03/23 11/03/23 18:59 06:59 18:59 Output Total 1050 550 Balance -1050 -550 Output: Urine 1050 550 Other: Voiding Method External Catheter External Catheter External Catheter # Voids 1 # Bowel Movements 0 - Exam No acute distress, oriented 3. No respiratory distress. Currently on room air. Her current pulse ox is 95% HEENT examination is grossly unremarkable. Mucous membranes are moist. No oral lesions. Neck supple. Full range of motion. No adenopathy thyromegaly or neck vein distention. Cardiovascular examination reveals regular rhythm rate. S1-S2 normal. No S3 or S4. No discernible murmur noted. Lungs reveal minimal scattered rhonchi. The patient also has some expiratory wheezing. Breathing is nonlabored and she is able to communicate. Abdomen soft bowel sounds are heard. No masses or tenderness. Extremities are intact. No cyanosis clubbing or edema. Skin is without rash or lesion. Neurologic examination is brief but nonfocal. - Labs CBC & Chem 7: 11/02/23 07:02 11/02/23 07:02 Labs: Abnormal Lab Results - Last 24 Hours (Table) 11/02/23 11/02/23 11/03/23 Range/Units 17:08 20:28 07:11 POC Glucose (mg/dL) 278 H 227 H 138 H (70-110) mg/dL 11/03/23 Range/Units 11:54 POC Glucose (mg/dL) 163 H (70-110) mg/dL Microbiology - Last 24 Hours (Table) 11/01/23 02:05 Urine Culture - Final Urine,Voided Gela albicans Enterococcus faecium VRE Assessment and Plan Plan: Asthma exacerbation with ongoing bronchospasm wheezing and secondary shortness of breath. Chest x-ray revealed no evidence of any pneumonia. Viral panel has been negative. Obesity with a BMI of 35.8 Diabetes mellitus type 2, currently on Levemir insulin at 15 units along with a sliding scale coverage. Hypertension Paroxysmal A. fib, current rhythm is sinus. The patient on anticoagulation with Eliquis. Normal echocardiogram based on her recent study on 10/25/2023 UTI with VRE Hypertension Hyperlipidemia Left breast mass measuring 2.7 cm in size when he further workup at a later stage Sigmoid diverticulosis Small hiatal hernia and the patient has undergone previous Salma wrap Plan Agree on the current treatment Continue bronchodilators and steroids and the patient is currently on prednisone burst taper Continue antibiotics and switch this patient to daptomycin Continue prednisone burst taper Check pro calcitonin level Chest x-ray showed no clear evidence of pneumonia Titrate oxygen flow to maintain saturation above 90%, currently on room air ox ygen Resume all medications Workup for a breast mass per medicine.
[2023-11-03 17:18] LABS: Glucose,Whole Blood 397 mg/dL (70-110)
[2023-11-03 20:15] LABS: Glucose,Whole Blood 248 mg/dL (70-110)
[2023-11-03] MEDS: INSULIN DETEMIR (LEVEMIR) 100 UNIT/ML SYR SQ SCH (21:18)
[2023-11-03] MEDS: ACETAMINOPHEN TAB 500 MG TAB PO SCH (21:19)
[2023-11-04 07:32] LABS: Glucose,Whole Blood 140 mg/dL (70-110)
[2023-11-04] MEDS: PANTOPRAZOLE 40 MG/10 ML VIAL IVP SCH (07:59)
[2023-11-04] MEDS: GABAPENTIN 300 MG CAP PO SCH ×2 (07:59→16:13)
[2023-11-04] MEDS: DILTIAZEM CD 180 MG CAP.ER.24H PO SCH (07:59)
[2023-11-04] MEDS: LEVOTHYROXINE 25 MCG TAB PO SCH (07:59)
[2023-11-04] MEDS: predniSONE 20 MG TAB PO SCH (07:59)
[2023-11-04] MEDS: ACETAMINOPHEN TAB 325 MG TAB PO SCH (08:00)
[2023-11-04] MEDS: ATORVASTATIN 40 MG TAB PO SCH (08:00)
[2023-11-04] MEDS: ESCITALOPRAM 20 MG TAB PO SCH (08:00)
[2023-11-04] MEDS: APIXABAN 5 MG TAB PO SCH ×2 (08:00→17:49)
[2023-11-04] MEDS: INSULIN ASPART (NovoLOG) 100 UNIT/ML VIAL SQ SCH ×3 (08:05→17:50)
[2023-11-04] MEDS: LOSARTAN 50 MG TAB PO SCH (08:06)
[2023-11-04] MEDS: SYMBICORT 160-4.5 MCG INHALER INHALATION SCH (08:10)
[2023-11-04] MEDS: IPRATROPIUM-ALBUTEROL 3 ML NEB INHALATION SCH ×3 (08:10→15:49)
[2023-11-04 12:08] LABS: Glucose,Whole Blood 251 mg/dL (70-110)
[2023-11-04 14:10] VITALS: BP 129/69; RESP 18; TEMP 97.2
[2023-11-04 16:09] VITALS: PULSE 80
[2023-11-04 17:43] LABS: Glucose,Whole Blood 401 mg/dL (70-110)
--- NOTE | 2023-11-04 18:40 | P.PN ---
Subjective Progress Note Date: 11/04/23 I am seeing this 80-year-old female patient for symptoms of asthma activity, cough, chest tightness and wheezing. The patient continues to bronchospastic and she continues to have significant amount of rhonchi heard bilaterally on physical examination. For that reason, she was admitted to the hospital. She was originally seen in consultation on 10/23/2023 for shortness of breath and wheezing. The patient is known to have bronchial asthma. She has also hypertension, diabetes mellitus type 2 and chronic into fibrillation. She came into the emergency department on 10/23/2023 and she was also found to be in A. fib RVR. She was started on Cardizem drip and she converted to normal sinus rhythm. Chest x-ray at that time showed some prominent pulmonary vessel findings. There was no evidence of any pneumonia. During the earlier hospitalization, the patient was given treatment for A. fib and the patient was subsequently placed on anticoagulation with Eliquis 5 mg by mouth twice a day. At that time, the viral panel was negative. The patient comes in with the similar complaints. She is currently on 2 L of action by nasal cannula. Repeat chest x-ray showed no clear evidence of any pneumonia. She has may have underlying urinary tract infection. The patient was given a urine culture. The patient was also covered with IV Unasyn. She is also on DuoNeb the blood treatments [id number], she is also on prednisone burst taper currently at 40 mg by mouth daily. She is on Levemir insulin 15 units and a sliding scale coverage. Outpatient medications have been resumed. EKG is sinus. On today's evaluation of ,023, the patient is being seen for a follow-up. There is bronchospastic and wheezy. Remains on bronchodilators. UA was abnormal and the patient had VRE and based on that, the patient will be placed on appropriate antibiotics. Currently she is on IV Unasyn. I suggest putting the patient on daptomycin. She also underwent a modified barium swallow and there was no signs of any aspiration. She is afebrile and hemodynamically stable. She remains on DuoNeb updrafts. She is on prednisone burst taper starting with 40 mg to be gradually tapered down. She is on room air oxygen with a pulse ox of 94%. on 11/04/2023, the patient is calm and comfortable.she is not having any significant respiratory distress. Cough and congestion and subsided significant ly and the patient is being discharged home today on a prednisone burst taper. She is also going to use her nebulizer at home. Antibiotic management is per the medical group. Objective - Vital Signs Vital signs: Vital Signs Temp 97.2 F L 11/04/23 13:51 Pulse 80 11/04/23 15:58 Resp 18 11/04/23 13:51 BP 129/69 11/04/23 13:51 Pulse Ox 99 11/04/23 13:51 FiO2 Intake & Output 11/03/23 11/04/23 11/04/23 18:59 06:59 18:59 Intake Total 1851 Output Total 500 1450 350 Balance -500 -1450 1501 Intake: Oral 1851 Output: Urine 500 1450 350 Other: Voiding Method External Catheter External Catheter # Voids 3 - Labs CBC & Chem 7: 11/02/23 07:02 11/02/23 07:02 Labs: Abnormal Lab Results - Last 24 Hours (Table) 11/03/23 11/04/23 11/04/23 Range/Units 20:12 07:30 12:01 POC Glucose (mg/dL) 248 H 140 H 251 H (70-110) mg/dL 11/04/23 Range/Units 17:41 POC Glucose (mg/dL) 401 H (70-110) mg/dL Microbiology - Last 24 Hours (Table) 11/01/23 02:05 Urine Culture - Final Urine,Voided Gela albicans Enterococcus faecium VRE Assessment and Plan Plan: Asthma exacerbation with ongoing bronchospasm wheezing and secondary shortness of breath. Chest x-ray revealed no evidence of any pneumonia. Viral panel has been negative.clinically much improved and the patient is not having any significant bronchospasm or wheezing. Obesity with a BMI of 35.8 Diabetes mellitus type 2, currently on Levemir insulin at 15 units along with a sliding scale coverage. Hypertension Paroxysmal A. fib, current rhythm is sinus. The patient on anticoagulation with Eliquis. Normal echocardiogram based on her recent study on 10/25/2023 UTI with VRE Hypertension Hyperlipidemia Left breast mass measuring 2.7 cm in size when he further workup at a later stage Sigmoid diverticulosis Small hiatal hernia and the patient has undergone previous Salma wrap Plan clinically much improved Agree on the current treatment Continue bronchodilators and steroids and the patient is currently on prednisone burst taper will be discharged home today. Antibiotic management is per medical group..
--- NOTE | 2023-11-04 20:14 | P.DS ---
Providers Date of admission: 11/01/23 03:41 Expected date of discharge: 11/04/23 Attending physician: Ryan Moser Consults: 11/02/23 10:18 Consult Physician Urgent Consulting Provider: Jitendra Ramirez Consult Reason/Comments: hypoxia, concern for aspiration, severe tracheobronchitis Do you want consulting provider notified?: Yes Primary care physician: Efren Acuna Hospital Course: Final diagnosis -Acute hypoxemia: Secondary to asthma exacerbation, improved on room air -Severity tracheobronchitis with concern for aspiration, aspiration ruled out per modified barium swallow study -Leukocytosis reactive, secondary to systemic steroids -Ruled out urinary tract infection, likely asymptomatic bactiuria -Type 2 diabetes mellitus uncontrolled elevated blood sugars -Paroxysmal atrial fibrillation, currently rate controlled -Stage II bilateral buttock pressure ulcer, present on admission -Hypertension -Obesity with a BMI of 35.8 -Left breast 2.7 cm mass for which patient will need imaging as outpatient -DVT prophylaxis -GI prophylaxis Discharge disposition Patient is being discharged in a stable condition with guarded prognosis to home with home care. Patient will follow-up with visiting physicians in the outpatient setting upon discharge. Patient is to continue with current medications as mentioned below and follow up with pulmonary outpatient. Total time taken is greater than 35 minutes. Hospital course This is a 83 year-old female who was recently admitted with increased shortness of breath and hypoxia with concerns of possible aspiration pneumonia as well as urinary tract infection. Patient was requiring oxygen on admission and was evaluated by pulmonary and speech and underwent modified barium swallow study and showed no signs of aspiration. Patient denies any pain or burning with urination. Patient was started on antibiotics and likely asymptomatic bactiuria. Patient has received 4 days of antibiotics and will no discharge home on them. Patient was treated for asthma exacerbation with severe tracheobronchitis. Patient will continue with prednisone taper on discharge as well as breathing treatments. Patient to follow up with pulmonary outpatient. Recommend tight glycemic control and monitoring blood sugars and keeping a diary to discuss on follow up. Patient with weakness although has no remaining days for rehab and will be going home with daughter. Patient to follow up for physical therapy outpatient. Patient cleared by consultations for discharge. Please refer to consult notes for further HPI. Currently no reports of chest pain, shortness of breath, or palpitations. Patient is afebrile. No reports of nausea or vomiting and patient is tolerating diet. Patient will be discharged home today. High risk for readmissions due to significant medical comorbidities. Physical exam: Gen: This is a 83 year old female who is awake, alert, and oriented x3. Well developed, obese, elderly appearing HEENT: Head is atraumatic, normocephalic. Pupils equal, round. Sclerae is anicteric. NECK: Supple. No JVD. No lymphadenopathy. No thyromegaly. LUNGS: diminished breath sounds bilaterally. No wheezes , some course rhonchi. No intercostal retractions. HEART: Regular rate and rhythm. No murmur. ABDOMEN: Soft. OBese Bowel sounds are present. No masses. No tenderness. EXTREMITIES: No pedal edema. No calf tenderness. NEUROLOGICAL: Patient is awake, alert and oriented x3. Cranial nerves 2 through 12 are grossly intact. diffusely weak Please refer to medication reconciliation sheet for a list of medications. The impression and plan of care has been dictated by Dulce Fox, Nurse Practitioner as directed. Dr. Tip MD I have performed a history and examination and MDM of this patient, discussed the same with the dictator, and agree with the dictator's assessment and plan as written ,documented as a scribe. Based on total visit time, I have performed more than 50% of the visit. Patient Condition at Discharge: Fair Plan - Discharge Summary New Discharge Prescriptions: New Ipratropium-Albuterol Nebulize [Duoneb 0.5 mg-3 mg/3 ml Soln] 3 ml INHALATION RT-QID #100 each Acetaminophen Tab [Tylenol] 650 mg PO Q6HR PRN tab PRN Reason: Mild Pain Or Fever > 100.5 predniSONE 10 mg PO DIRECTED #30 tab Continue Killen-3/Dha/Epa/Fish Oil [Fish Oil 1,000 mg Softgel] 1 cap PO HS Loratadine 10 mg PO HS Ferrous Sulfate [Iron (65 MG Elemental)] 325 mg PO HS dilTIAZem HCL [dilTIAZem HCL 24Hr ER (Xr)] 180 mg PO AC-BRKFST Escitalopram [Lexapro] 20 mg PO DAILY Pantoprazole [Protonix] 40 mg PO AC-BRKFST Atorvastatin [Lipitor] 40 mg PO AC-BRKFST Tiotropium 2.5 Mcg/Puff [Spiriva Respimat 2.5 Mcg] 1 puff INHALATION RT-DAILY PRN PRN Reason: Shortness Of Breath Diclofenac Sodium Gel [Voltaren 1% Gel] 1 applic TOPICAL QID PRN PRN Reason: Pain Loperamide HCl [Imodium A-D] 2 mg PO QID PRN PRN Reason: Diarrhea Insulin Glargine-Yfgn [Semglee (Yfgn) Pen] 10 units SQ HS Acetaminophen [Tylenol Arthritis] 650 mg PO AC-BRKFST Losartan [Cozaar] 50 mg PO DAILY #30 tab Super B Complex 1 tab PO HS Acetaminophen [Tylenol 8 Hour] 1,300 mg PO HS Potassium Gluconate 99 mg PO HS Levothyroxine Sodium [Synthroid] 12.5 mcg PO AC-BRKFST Calcium Carbonate [Calcium] 600 mg PO HS Montelukast [Singulair] 10 mg PO HS Apixaban [Eliquis] 5 mg PO AC-BID Ipratropium-Albuterol Nebulize [Duoneb 0.5 mg-3 mg/3 ml Soln] 3 ml INHALATION RT-QID PRN PRN Reason: Shortness Of Breath Prevagen 1 tab PO BID Dulaglutide [Trulicity] 0.75 mg SQ WE Gabapentin [Neurontin] 300 mg PO TID 3 Days #9 cap Budesonide-Formot 160-4.5 Mcg [Symbicort 160-4.5 Mcg Inhaler] 2 puff INHALATION RT-BID #1 each Discontinued predniSONE See Taper PO DAILY Discharge Medication List Acetaminophen [Tylenol 8 Hour] 1,300 mg PO HS 08/25/23 [History] Acetaminophen [Tylenol Arthritis] 650 mg PO AC-BRKFST 08/25/23 [History] Apixaban [Eliquis] 5 mg PO AC-BID 08/25/23 [History] Atorvastatin [Lipitor] 40 mg PO AC-BRKFST 08/25/23 [History] Calcium Carbonate [Calcium] 600 mg PO HS 08/25/23 [History] Diclofenac Sodium Gel [Voltaren 1% Gel] 1 applic TOPICAL QID PRN 08/25/23 [History] Dulaglutide [Trulicity] 0.75 mg SQ WE 08/25/23 [History] Escitalopram [Lexapro] 20 mg PO DAILY 08/25/23 [History] Ferrous Sulfate [Iron (65 MG Elemental)] 325 mg PO HS 08/25/23 [History] Insulin Glargine-Yfgn [Semglee (Yfgn) Pen] 10 units SQ HS 08/25/23 [History] Ipratropium-Albuterol Nebulize [Duoneb 0.5 mg-3 mg/3 ml Soln] 3 ml INHALATION RT-QID PRN 08/25/23 [History] Levothyroxine Sodium [Synthroid] 12.5 mcg PO AC-BRKFST 08/25/23 [History] Loperamide HCl [Imodium A-D] 2 mg PO QID PRN 08/25/23 [History] Loratadine 10 mg PO HS 08/25/23 [History] Montelukast [Singulair] 10 mg PO HS 08/25/23 [History] Killen-3/Dha/Epa/Fish Oil [Fish Oil 1,000 mg Softgel] 1 cap PO HS 08/25/23 [History] Pantoprazole [Protonix] 40 [facility] 08/25/23 [History] Potassium Gluconate 99 mg PO HS 08/25/23 [History] Prevagen 1 tab PO BID 08/25/23 [History] Super B Complex 1 tab PO HS 08/25/23 [History] Tiotropium 2.5 Mcg/Puff [Spiriva Respimat 2.5 Mcg] 1 puff INHALATION RT-DAILY PRN 08/25/23 [History] dilTIAZem HCL [dilTIAZem HCL 24Hr ER (Xr)] 180 mg PO -[facility] 08/25/23 [History] Gabapentin [Neurontin] 300 mg PO TID 3 Days #9 cap 09/22/23 [Rx] Budesonide-Formot 160-4.5 Mcg [Symbicort 160-4.5 Mcg Inhaler] 2 puff INHALATION RT-BID #1 each 10/28/23 [Rx] Losartan [Cozaar] 50 mg PO DAILY #30 tab 10/28/23 [Rx] Acetaminophen Tab [Tylenol] 650 mg PO Q6HR PRN tab 11/04/23 [Rx] Ipratropium-Albuterol Nebulize [Duoneb 0.5 mg-3 mg/3 ml Soln] 3 ml INHALATION RT-QID #100 each 11/04/23 [Rx] predniSONE 10 mg PO DIRECTED #30 tab 11/04/23 [Rx] Follow up Appointment(s)/Referral(s): Residential Home,Health [NON-STAFF] - 1 Week Patient Instructions/Handouts: Prednisone (By mouth), Ipratropium/Albuterol (By breathing), Urinary Tract Infection in Women (DC) Activity/Diet/Wound Care/Special Instructions: PCP: Home Visit [id number], [place] [address] Activity Limited until follow-up follow-up with primary care provider this week Continue taking medications as prescribed Discharge Disposition: HOME WITH HOME HEALTH SERVICES
== END 2023-11-04 19:56 | disposition home health service (06) ==
LOC: EC 18:39 → INTOOBSV 11-01 03:41 → 5NMEDONC 11-01 03:41
PROVIDERS: ADMIT Hospitalist; ATTEND Hospitalist
DX: J45.901 Unspecified asthma with (acute) exacerbation (principal); D72.829 Elevated white blood cell count, unspecified; T38.0X5A Adverse effect of glucocorticoids and synthetic analogues, initial encounter; E11.65 Type 2 diabetes mellitus with hyperglycemia; I48.0 Paroxysmal atrial fibrillation; L89.322 Pressure ulcer of left buttock, stage 2; L89.312 Pressure ulcer of right buttock, stage 2; I10 Essential (primary) hypertension; N63.20 Unspecified lump in the left breast, unspecified quadrant; K57.30 Diverticulosis of large intestine without perforation or abscess without bleeding; K44.9 Diaphragmatic hernia without obstruction or gangrene; E78.5 Hyperlipidemia, unspecified; E66.9 Obesity, unspecified; Z68.35 Body mass index [BMI] 35.0-35.9, adult; Z20.822 Contact with and (suspected) exposure to COVID-19; Z79.01 Long term (current) use of anticoagulants; Z79.899 Other long term (current) drug therapy; Z79.4 Long term (current) use of insulin; Z79.890 Hormone replacement therapy; Z79.52 Long term (current) use of systemic steroids; Z79.51 Long term (current) use of inhaled steroids; Z88.0 Allergy status to penicillin
CPT/HCPCS: 96376 ×2; 96361 ×2; 96366 ×4; 96367; 96372 ×5; 96375 ×3; 96365; 99285; 36415; 94668; 94640 ×10; 94760 ×2; 94667; 93005; 97110; 97530; 97162; 97166; 92610; 92611; 80053; 80048; 83605; 83735; 84484; 85025; 85027; 85610; 85730; 81001; 87086; 87077; 87186; 84145; 87636; 74230; 71046; 70450; G0378 ×4; J2930; J0696; J0295 ×3; J7512 ×3; C9113 ×2; J0878 ×2

== ENCOUNTER 2023-11-17 21:51 | Emergency (ER) | payer MEDICARE ==
[2023-11-17 22:04] LABS: Glucose,Whole Blood 381 mg/dL (70-110)
[2023-11-17 22:20] VITALS: TEMP 98.4
--- NOTE | 2023-11-17 23:16 | ED ---
General Adult HPI - General Chief complaint: Recheck/Abnormal Lab/Rx Stated complaint: Hyperglycemia Time Seen by Provider: 11/17/23 22:18 Source: EMS Mode of arrival: EMS Limitations: no limitations - History of Present Illness Initial comments: 83-year-old female with a past medical history significant for type 1 diabetes and dementia presenting to the ED with a chief complaint of high blood sugar. At this time secondary to dementia patient is unable to provide any meaningful history however she is very pleasant. Was able to contact the patient's daughter. Per daughter, blood sugar was over 400 at home. States due to this gave the patient a dose of her long-acting insulin however fears that she may have given the patient a double dose and b rought the patient here to the ED for further evaluation. Additionally, notes that she ran out of needles for her short acting insulin pen. States that her guardian will be picking this up tomorrow. No other complaints at this time. Patient currently denies any symptoms - Related Data Home Medications Medication Instructions Recorded Confirmed Acetaminophen [Tylenol 8 Hour] 1,300 mg PO HS 08/25/23 10/31/23 Acetaminophen [Tylenol Arthritis] 650 mg PO AC-BRKFST 08/25/23 10/31/23 Apixaban [Eliquis] 5 mg PO AC-BID 08/25/23 10/31/23 Atorvastatin [Lipitor] 40 mg PO AC-BRKFST 08/25/23 10/31/23 Calcium Carbonate [Calcium] 600 mg PO HS 08/25/23 10/31/23 Diclofenac Sodium Gel [Voltaren 1% 1 applic TOPICAL QID PRN 08/25/23 10/31/23 Gel] Dulaglutide [Trulicity] 0.75 mg SQ WE 08/25/23 10/31/23 Escitalopram [Lexapro] 20 mg PO DAILY 08/25/23 10/31/23 Ferrous Sulfate [Iron (65 MG 325 mg PO HS 08/25/23 10/31/23 Elemental)] Insulin Glargine-Yfgn [Semglee 10 units SQ HS 08/25/23 10/31/23 (Yfgn) Pen] Ipratropium-Albuterol Nebulize 3 ml INHALATION RT-QID PRN 08/25/23 10/31/23 [Duoneb 0.5 mg-3 mg/3 ml Soln] Levothyroxine Sodium [Synthroid] 12.5 mcg [facility] 08/25/23 10/31/23 Loperamide HCl [Imodium A-D] 2 mg PO QID PRN 08/25/23 10/31/23 Loratadine 10 mg PO HS 08/25/23 10/31/23 Montelukast [Singulair] 10 mg PO HS 08/25/23 10/31/23 [place]-3/Dha/Epa/Fish Oil [Fish Oil 1 cap PO HS 08/25/23 10/31/23 1,000 mg Softgel] Pantoprazole [Protonix] 40 mg PO -[facility] 08/25/23 10/31/23 Potassium Gluconate 99 mg PO 08/25/23 10/31/23 Prevagen 1 tab PO BID 08/25/23 10/31/23 Super B Complex 1 tab PO 08/25/23 10/31/23 Tiotropium 2.5 Mcg/Puff [Spiriva 1 puff INHALATION RT-DAILY PRN 08/25/23 10/31/23 Respimat 2.5 Mcg] dilTIAZem HCL [dilTIAZem HCL 24Hr 180 mg PO [facility] 08/25/23 10/31/23 ER (Xr)] Previous Rx's Medication Instructions Recorded Gabapentin [Neurontin] 300 mg PO TID 3 Days #9 cap 09/22/23 Budesonide-Formot 160-4.5 Mcg 2 puff INHALATION RT-BID #1 each 10/28/23 [Symbicort 160-4.5 Mcg Inhaler] Losartan [Cozaar] 50 mg PO DAILY #30 tab 10/28/23 Acetaminophen Tab [Tylenol] 650 mg PO Q6HR PRN tab 11/04/23 Ipratropium-Albuterol Nebulize 3 ml INHALATION RT-QID #100 each 11/04/23 [Duoneb 0.5 mg-3 mg/3 ml Soln] predniSONE 10 mg PO DIRECTED #30 tab 11/04/23 Allergies Allergy/AdvReac Type Severity Reaction Status Date / Time Penicillins Allergy Rash/Hives Verified 11/17/23 22:00 Review of Systems ROS Statement: Those systems with pertinent positive or pertinent negative responses have been documented in the HPI. ROS Other: All systems not noted in ROS Statement are negative. Past Medical History Past Medical History: Atrial Fibrillation, Diabetes Mellitus, Hypertension, Mem ory Impairment Additional Past Medical History / Comment(s): patient poor historian History of Any Multi-Drug Resistant Organisms: VRE Date of last positivie culture/infection: 11/01/23 MDRO Source:: Urine Past Surgical History: Appendectomy Additional Past Surgical History / Comment(s): patient poor historian Past Anesthesia/Blood Transfusion Reactions: No Reported Reaction Past Psychological History: No Psychological Hx Reported Smoking Status: Never smoker Past Alcohol Use History: None Reported Past Drug Use History: None Reported General Exam Limitations: no limitations General appearance: alert, in no apparent distress Eye exam: Present: normal appearance Neck exam: Present: normal inspection Respiratory exam: Present: normal lung sounds bilaterally Cardiovascular Exam: Present: regular rate, normal rhythm GI/Abdominal exam: Present: soft Neurological exam: Present: alert (Oriented to person and place but not time.) Skin exam: Present: warm, dry Course Vital Signs 11/17/23 21:55 Temperature 98.4 F Pulse Rate 97 Respiratory 18 Rate Blood Pressure 132/78 O2 Sat by Pulse 96 Oximetry Medical Decision Making - Medical Decision Making Was pt. sent in by a medical professional or institution (, PA, DRY STARCH OPERATOR, urgent care, hospital, or halfway...) When possible be specific @ -No Did you speak to anyone other than the patient for history (EMS, parent, family, police, friend...)? What history was obtained from this source @ -Spoke to the patient's daughter who provided the entirety of meaningful history. For further details please see HPI. Did you review nursing and triage notes (agree or disagree)? Why? @ -I reviewed and agree with nursing and triage notes Were old charts reviewed (outside hosp., previous admission, EMS record, old EKG, old radiological studies, urgent care reports/EKG's, halfway records)? Report findings @ -No old charts were reviewed Differential Diagnosis (chest pain, altered mental status, abdominal pain women, abdominal pain men, vaginal bleeding, weakness, fever, dyspnea, syncope, headache, dizziness, GI bleed, back pain, seizure, CVA, palpatations, mental health, musculoskeletal)? @ -DKA, HHS, hypoglycemia. This number to be all inclusive list. EKG interpreted by me (3pts min.). @ -None X-rays interpreted by me (1pt min.). @ -None done CT interpreted by me (1pt min.). @ -None done U/S interpreted by me (1pt. min.). @ -None done What testing was considered but not performed or refused? (CT, X-rays, U/S, labs)? Why? @ -None What meds were considered but not given or refused? Why? @ -None Did you discuss the management of the patient with other professionals (professionals i.e. Dr., PA, DRY STARCH OPERATOR, lab, RT, psych nurse, hospice social worker, vender, teacher, navigation officer, case management assistant)? Give summary @ -No Was smoking cessation discussed for >3mins.? @ -No Was critical care preformed (if so, how long)? @ -No Were there social determinants of health that impacted care today? How? (Homelessness, low income, unemployed, alcoholism, drug addiction, transportation, low edu. Level, literacy, decrease access to med. care, [facility], rehab)? @ -No Was there de-escalation of care discussed even if they declined (Discuss DNR or withdrawal of care, Hospice)? DNR status @ -No What co-morbidities impacted this encounter? (DM, HTN, Smoking, COPD, CAD, Cancer, CVA, ARF, Chemo, Hep., AIDS, mental health diagnosis, sleep apnea, morbid obesity)? @ -Diabetes mellitus Was patient admitted / discharged? Hospital course, mention meds given and route, prescriptions, significant lab abnormalities, going to OR and other pertinent info. @ -Discharge 83-year-old female with a history of diabetes brought in by her daughter due to concerns of possibly overdosing her on her long-acting insulin. At this time blood sugar is 381. Spoke to the daughter extensively through the phone. Advised regular blood sugar checks and food/juice as needed for hypoglycemia. Patient's daughter notes that they will be picking up her short acting insulin needles tomorrow. At this time patient has no complaints. Discharged home in stable condition. Discussed return precautions with the patient's daughter who verbalized agreement. Undiagnosed new problem with uncertain prognosis? @ -No Drug Therapy requiring intensive monitoring for toxicity (Heparin, Nitro, Insulin, Cardizem)? @ -No Were any procedures done? @ -No Diagnosis/symptom? @ -Hyperglycemia, medication concern Acute, or Chronic, or Acute on Chronic? @ -Acute Uncomplicated (without systemic symptoms) or Complicated (systemic symptoms)? @ -Uncomplicated Side effects of treatment? @ -No Exacerbation, Progression, or Severe Exacerbation? @ -No Poses a threat to life or bodily function? How? (Chest pain, [place], [place], pneumonia, PE, COPD, DKA, ARF, appy, cholecystitis, CVA, Diverticulitis, Homicidal, Suicidal, threat to staff... and all critical care pts) @ -No - Lab Data Lab Results 11/17/23 Range/Units 22:02 POC Glucose (mg/dL) 381 H (70-110) mg/dL POC Glu Hydro Plant Operator ID Kandis Bruno Disposition Clinical Impression: Hyperglycemia, Accidental overdose of insulin Disposition: HOME SELF-CARE Condition: Good Additional Instructions: Please return to the Emergency Department if symptoms worsen or any other concerns. Please follow-up with your primary care provider. Please provide the patient oral juice or fluids as needed to correct hypoglycemia. Is patient prescribed a controlled substance at d/c from ED?: No Referrals: None,Stated [Primary Care Provider] - 1-2 days Time of Disposition: 23:22
[2023-11-18 00:20] VITALS: BP 149/85; PULSE 66; RESP 16
== END 2023-11-18 00:29 | disposition home or self-care (01) ==
LOC: EC 21:51
DX: E10.65 Type 1 diabetes mellitus with hyperglycemia (principal); T38.3X1A Poisoning by insulin and oral hypoglycemic [antidiabetic] drugs, accidental (unintentional), initial encounter; I48.91 Unspecified atrial fibrillation; I10 Essential (primary) hypertension; Z79.01 Long term (current) use of anticoagulants; Z79.84 Long term (current) use of oral hypoglycemic drugs; Z79.4 Long term (current) use of insulin; Z79.899 Other long term (current) drug therapy; Z88.0 Allergy status to penicillin
CPT/HCPCS: 36415; 99284

== ENCOUNTER 2023-11-21 22:35 | Inpatient (IN) | payer MEDICARE ==
--- NOTE | 2023-11-21 22:54 | ED ---
General Adult HPI - General Chief complaint: Weakness Stated complaint: confusion Time Seen by Provider: 11/21/23 22:37 Source: EMS Mode of arrival: EMS - History of Present Illness Initial comments: Dictation was produced using [employer] dictation software. please excuse any grammatical, word or spelling errors. Chief Complaint: 83-year-old female brought to the ER from home for altered mental status and generalized weakness History of Present Illness: Patient is a 83-year-old female she is here for generalized weakness, debility. She was brought in from home by EMS according to EMS they are suspicious that her symptoms are secondary to hyperglycemia and they are concerned about a UTI. Patient states that for the last months she has been feeling weak. She allegedly fell 1 or 2 days ago having difficulty getting up. Today she felt may be slightly more weak than usual. EMS was called by patient's daughter. EMS reports that family is concerned that patient ran out of her insulin. Patient does not have any acute complaints that triggered coming to the ER today. She fell yesterday but was able to be lifted up and put in a better chair by her daughter. Patient denies any pain complaints. The ROS documented in this emergency department record has been reviewed and confirmed by me. Those systems with pertinent positive or negative responses have been documented in the HPI. All other systems are other negative and/or noncontributory. - Related Data Home Medications Medication Instructions Recorded Confirmed Acetaminophen [Tylenol 8 Hour] 1,300 mg PO HS 08/25/23 10/31/23 Acetaminophen [Tylenol Arthritis] 650 mg PO AC-BRKFST 08/25/23 10/31/23 Apixaban [Eliquis] 5 mg PO AC-BID 08/25/23 10/31/23 Atorvastatin [Lipitor] 40 mg PO AC-BRKFST 08/25/23 10/31/23 Calcium Carbonate [Calcium] 600 mg PO HS 08/25/23 10/31/23 Diclofenac Sodium Gel [Voltaren 1% 1 applic TOPICAL QID PRN 08/25/23 10/31/23 Gel] Dulaglutide [Trulicity] 0.75 mg SQ WE 08/25/23 10/31/23 Escitalopram [Lexapro] 20 mg PO DAILY 08/25/23 10/31/23 Ferrous Sulfate [Iron (65 MG 325 mg PO HS 08/25/23 10/31/23 Elemental)] Insulin Glargine-Yfgn [Semglee 10 units SQ HS 08/25/23 10/31/23 (Yfgn) Pen] Ipratropium-Albuterol Nebulize 3 ml INHALATION RT-QID PRN 08/25/23 10/31/23 [Duoneb 0.5 mg-3 mg/3 ml Soln] Levothyroxine Sodium [Synthroid] 12.5 mcg PO AC-KT 08/25/23 10/31/23 Loperamide HCl [Imodium A-D] 2 mg PO QID PRN 08/25/23 10/31/23 Loratadine 10 mg PO HS 08/25/23 10/31/23 Montelukast [Singulair] 10 mg PO 08/25/23 10/31/23 [place]-3/Dha/Epa/Fish Oil [Fish Oil 1 cap PO 08/25/23 10/31/23 1,000 mg Softgel] Pantoprazole [Protonix] 40 mg PO [facility] 08/25/23 10/31/23 Potassium Gluconate 99 mg PO 08/25/23 10/31/23 Prevagen 1 tab PO BID 08/25/23 10/31/23 Super B Complex 1 tab PO 08/25/23 10/31/23 Tiotropium 2.5 Mcg/Puff [Spiriva 1 puff INHALATION RT-DAILY PRN 08/25/23 10/31/23 Respimat 2.5 Mcg] dilTIAZem HCL [dilTIAZem HCL 24Hr 180 mg PO [facility] 08/25/23 10/31/23 ER (Xr)] Previous Rx's Medication Instructions Recorded Gabapentin [Neurontin] 300 mg PO TID 3 Days #9 cap 09/22/23 Budesonide-Formot 160-4.5 Mcg 2 puff INHALATION RT-BID #1 each 10/28/23 [Symbicort 160-4.5 Mcg Inhaler] Losartan [Cozaar] 50 mg PO DAILY #30 tab 10/28/23 Acetaminophen Tab [Tylenol] 650 mg PO Q6HR PRN tab 11/04/23 Ipratropium-Albuterol Nebulize 3 ml INHALATION RT-QID #100 each 11/04/23 [Duoneb 0.5 mg-3 mg/3 ml Soln] predniSONE 10 mg PO DIRECTED #30 tab 11/04/23 Allergies Allergy/AdvReac Type Severity Reaction Status Date / Time Penicillins Allergy Rash/Hives Verified 11/21/23 22:46 Review of Systems ROS Statement: Those systems with pertinent positive or pertinent negative responses have been documented in the HPI. ROS Other: All systems not noted in ROS Statement are negative. Past Medical History Past Medical History: Atrial Fibrillation, Diabetes Mellitus, Hypertension, Memory Impairment Additional Past Medical History / Comment(s): patient poor historian History of Any Multi-Drug Resistant Organisms: VRE Date of last positivie culture/infection: 11/01/23 MDRO Source:: Urine Past Surgical History: Appendectomy Additional Past Surgical History / Comment(s): patient poor historian Past Anesthesia/Blood Transfusion Reactions: No Reported Reaction Past Psychological History: No Psychological Hx Reported Smoking Status: Never smoker Past Alcohol Use History: None Reported Past Drug Use History: None Reported General Exam - General Exam Comments Initial Comments: PHYSICAL EXAM: General Impression: Alert and oriented x3, not in acute distress HEENT: Normocephalic atraumatic, extra-ocular movements intact, pupils equal and reactive to light bilaterally, mucous membranes moist. Cardiovascular: Heart regular rate and rhythm Chest: Able to complete full sentences, no retractions, no tachypnea Abdomen: abdomen soft, non-tender, non-distended, no organomegaly Musculoskeletal: Pulses present and equal in all extremities, no peripheral edema Motor: no focal deficits noted Neurological: CN II-XII grossly intact, no focal motor or sensory deficits noted, NIH score of 0 Skin: Intact with no visualized rashes Psych: Normal affect and mood Course Vital Signs 11/21/23 11/21/23 22:39 23:46 Temperature 97.5 F L Pulse Rate 97 93 Respiratory 18 20 Rate Blood Pressure 146/84 130/62 O2 Sat by Pulse 96 95 Oximetry EKG Findings - EKG Comments: EKG Findings:: My EKG interpretation: Ventricular rate 95, sinus rhythm. There is a P wave before every QRS wave particularly notable and lead II. There is some degree of sinus arrhythmia,. No GA prolongation, no QTC prolongation, no ST or T-wave changes noted. EKG compared to November 01, 2023 showing no changes. Overall, this EKG is unremarkable Medical Decision Making - Medical Decision Making Was pt. sent in by a medical professional or institution (SENTHIL Hat[place], CONTROL ROOM TECHNICIAN, urgent care, hospital, or shelter...) When possible be specific @ -No Did you speak to anyone other than the patient for history (EMS, parent, family, police, friend...)? What history was obtained from this source @ -EMS as discussed above Did you review nursing and triage notes (agree or disagree)? Why? @ -I reviewed and agree with nursing and triage notes Were old charts reviewed (outside hosp., previous admission, EMS record, old EKG, old radiological studies, urgent care reports/EKG's, shelter records)? Report findings @ -No old charts were reviewed Differential Diagnosis (chest pain, altered mental status, abdominal pain women, abdominal pain men, vaginal bleeding, musculoskeletal, weakness, fever, dyspnea, syncope, headache, dizziness, GI bleed, back pain, seizure, CVA, palpatations, mental health)? @ -Differential Weakness: Hypoglycemia, shock, sepsis, hyponatremia, anemia, infection, RI, ETOH, adverse medicine reaction, overdose, stroke, this is not meant to be an all-inclusive list. EKG interpreted by me (3pts min.). @ -See above X-rays interpreted by me (1pt min.). @ -None done CT interpreted by me (1pt min.). @ -CT brain is unremarkable U/S interpreted by me (1pt. min.). @ -None done What testing was considered but not performed or refused? (CT, X-rays, U/S, labs)? Why? @ -None What meds were considered but not given or refused? Why? @ -None Did you discuss the management of the patient with other professionals (professionals i.e. SENTHIL Hat[place], CONTROL ROOM TECHNICIAN, lab, RT, psych nurse, social service liaison, intellectual property lawyer, teacher, campus safety officer, manager of case)? Give summary @ -Case was discussed with Dr. Lopez for admission Was smoking cessation discussed for >3mins.? @ -No Was critical care preformed (if so, how long)? @ -No Were there social determinants of health that impacted care today? How? (Homelessness, low income, unemployed, alcoholism, drug addiction, transportation, low edu. Level, literacy, decrease access to med. care, detention, rehab)? @ -No Was there de-escalation of care discussed even if they declined (Discuss DNR or withdrawal of care, Hospice)? DNR status @ -No What co-morbidities impacted this encounter? (DM, HTN, Smoking, COPD, CAD, Cancer, CVA, ARF, Chemo, Hep., AIDS, mental health diagnosis, sleep apnea, morbid obesity)? @ -None Was patient admitted / discharged? Hospital course, mention meds given and route, prescriptions, significant lab abnormalities, going to OR and other pertinent info. @ -83-year-old debilitated female with significant weakness presents to the ER for acute on chronic weakness. Vital signs stable. Patient has a normal mentation. She is alert and oriented x 4. She does have some moments however were conversation is tangential. She however has a NIH of 0. Laboratory evaluation obtained. Hyperglycemia, 412. Rest of labs unremarkable. Patient studies negative. Attempt was made for patient to ambulate. According to nurse patient not even able to stand to bear her own weight even with assistance. Is deemed that it is unsafe for patient be discharged back home given her social situation. Patient reports that her daughter is also significantly overweight with significant knee problems and has difficulty caring for her at home. Undiagnosed new problem with uncertain prognosis? @ -No Drug Therapy requiring intensive monitoring for toxicity (Heparin, Nitro, Insulin, Cardizem)? @ -No Were any procedures done? @ -No Diagnosis/symptom? Acute, or Chronic, or Acute on Chronic? Uncomplicated (without systemic symptoms) or Complicated (systemic symptoms)? @ -Generalized weakness Side effects of treatment? @ -No Exacerbation, Progression, or Severe Exacerbation? @ -No Poses a threat to life or bodily function? How? (Chest pain, USA, RI, pneumonia, PE, COPD, DKA, ARF, appy, cholecystitis, CVA, Diverticulitis, Homicidal, Suicidal, threat to staff... and all critical care pts) @ -No - Lab Data Result diagrams: 11/21/23 22:59 11/21/23 22:59 Lab Results 11/21/23 11/21/23 11/21/23 Range/Units 22:59 22:59 22:59 WBC 5.0 (3.8-10.6) k/uL RBC 4.22 (3.80-5.40) m/uL Hgb 12.5 (11.4-16.0) gm/dL Hct 37.7 (34.0-46.0) % MCV 89.3 (80.0-100.0) fL MCH 29.6 (25.0-35.0) pg MCHC 33.2 (31.0-37.0) g/dL RDW 14.4 (11.5-15.5) % Plt Count 217 (150-450) k/uL MPV 8.1 Neutrophils % 56 % Lymphocytes % 30 % Monocytes % 7 % Eosinophils % 4 % Basophils % 1 % Neutrophils # 2.8 (1.3-7.7) k/uL Lymphocytes # 1.5 (1.0-4.8) k/uL Monocytes # 0.4 (0-1.0) k/uL Eosinophils # 0.2 (0-0.7) k/uL Basophils # 0.0 (0-0.2) k/uL PT 10.0 (10.0-12.5) sec INR 0.9 (<1.2) APTT 21.5 L (22.0-30.0) sec Sodium 132 L (137-145) mmol/L Potassium 3.9 (3.5-5.1) mmol/L Chloride 101 (98-107) mmol/L Carbon Dioxide 21 L (22-30) mmol/L Anion Gap 10 mmol/L BUN 9 (7-17) mg/dL Creatinine 0.82 (0.52-1.04) mg/dL Est GFR (CKD-EPI)AfAm 77 (>60 ml/min/1.73 sqM) Est GFR (CKD-EPI)NonAf 66 (>60 ml/min/1.73 sqM) Glucose 412 H (74-99) mg/dL Plasma Lactic Acid [place] (0.7-2.0) mmol/L Calcium 8.6 (8.4-10.2) mg/dL Magnesium 1.6 (1.6-2.3) mg/dL Total Bilirubin 0.7 (0.2-1.3) mg/dL AST 23 (14-36) U/L ALT 21 (4-34) U/L Alkaline Phosphatase 95 (38-126) U/L Total Protein 5.9 L (6.3-8.2) g/dL Albumin 3.3 L (3.5-5.0) g/dL 11/21/23 Range/Units 22:59 WBC (3.8-10.6) k/uL RBC (3.80-5.40) m/uL Hgb (11.4-16.0) gm/dL Hct (34.0-46.0) % MCV (80.0-100.0) fL MCH (25.0-35.0) pg MCHC (31.0-37.0) g/dL RDW (11.5-15.5) % Plt Count (150-450) k/uL MPV Neutrophils % % Lymphocytes % % Monocytes % % Eosinophils % % Basophils % % Neutrophils # (1.3-7.7) k/uL Lymphocytes # (1.0-4.8) k/uL Monocytes # (0-1.0) k/uL Eosinophils # (0-0.7) k/uL Basophils # (0-0.2) k/uL PT (10.0-12.5) sec INR (<1.2) APTT (22.0-30.0) sec Sodium (137-145) mmol/L Potassium (3.5-5.1) mmol/L Chloride (98-107) mmol/L Carbon Dioxide (22-30) mmol/L Anion Gap mmol/L BUN (7-17) mg/dL Creatinine (0.52-1.04) mg/dL Est GFR (CKD-EPI)AfAm (>60 ml/min/1.73 sqM) Est GFR (CKD-EPI)NonAf (>60 ml/min/1.73 sqM) Glucose (74-99) mg/dL Plasma Lactic Acid [place] 3.4 H* (0.7-2.0) mmol/L Calcium (8.4-10.2) mg/dL Magnesium (1.6-2.3) mg/dL Total Bilirubin (0.2-1.3) mg/dL AST (14-36) U/L ALT (4-34) U/L Alkaline Phosphatase (38-126) U/L Total Protein (6.3-8.2) g/dL Albumin (3.5-5.0) g/dL Disposition Clinical Impression: Gravely disabled Disposition: ADMITTED IP TO THIS [facility] Condition: Fair Referrals: None,Stated [Primary Care Provider] - 1-2 days Decision Time: 00:44
[2023-11-21 23:12] LABS: Basophils % (A) 1 %; Eosinophils # (A) 0.2 k/uL (0-0.7); Eosinophils % (A) 4 %; HCT 37.7 % (34.0-46.0); HGB 12.5 gm/dL (11.4-16.0); Lymphocytes # (A) 1.5 k/uL (1.0-4.8); Lymphocytes % (A) 30 %; MCH 29.6 pg (25.0-35.0); MCHC 33.2 g/dL (31.0-37.0); MCV 89.3 fL (80.0-100.0); Mean Platelet Volume 8.1; Monocytes # (A) 0.4 k/uL (0-1.0); Monocytes % (A) 7 %; Neutrophils # (A) 2.8 k/uL (1.3-7.7); Neutrophils % (A) 56 %; Platelet Count 217 k/uL (150-450); RBC 4.22 m/uL (3.80-5.40); RDW 14.4 % (11.5-15.5)
[2023-11-21 23:16] LABS: ALT 21 U/L (4-34); AST 23 U/L (14-36); African American GFR (CKD) 77 (>60 ml/min/1.73 sqM); Albumin 3.3 g/dL (3.5-5.0); Alkaline Phosphatase 95 U/L (38-126); Anion Gap 10 mmol/L; Blood Urea Nitrogen 9 mg/dL (7-17); Calcium 8.6 mg/dL (8.4-10.2); Carbon Dioxide 21 mmol/L (22-30); Chloride 101 mmol/L (98-107); Glucose 412 mg/dL (74-99); Magnesium 1.6 mg/dL (1.6-2.3); Non-African American GFR(CKD) 66 (>60 ml/min/1.73 sqM); Potassium 3.9 mmol/L (3.5-5.1); Sodium 132 mmol/L (137-145); Total Bilirubin 0.7 mg/dL (0.2-1.3); Total Protein 5.9 g/dL (6.3-8.2)
[2023-11-21 23:23] LABS: INR 0.9 (<1.2)
--- NOTE | 2023-11-21 23:34 | CT ---
EXAMINATION TYPE: CT brain wo con DATE OF EXAM: 11/21/2023 HISTORY: pt arrives from home for c/o generalized weakness and confusion. A&OX4 pt states that this h as been an ongoing issue for 1 month. pt states she slide out of bed yesterday. pt denies hitting hea d or LOC. pt states she was having a hard time ambulating today when pt's daughter called EMS. Altere d mental status. CT DLP: 1149.9 mGycm. Automated Exposure Control for Dose Reduction was Utilized. TECHNIQUE: CT scan of the head is performed without contrast. COMPARISON: Prior CT brain October 31, 2023. FINDINGS: There is no acute intracranial hemorrhage or midline shift identified. There is mild diff use ventricular and sulcal prominence redemonstrated. There is moderate to severe low-attenuation in the deep and periventricular white matter redemonstrated. Tiny dependent fluid left maxillary sinus improved from prior. Remainder of the paranasal sinuses are clear. Vascular calcifications distal i nternal carotid arteries bilaterally is redemonstrated. The globes are intact. IMPRESSION: No acute intracranial hemorrhage or midline shift. There is mild diffuse age-related ce rebral atrophy and moderately advanced chronic small vessel ischemic change redemonstrated.
[2023-11-22 00:01] LABS: Partial Thromboplastin Time 21.5 sec (22.0-30.0)
[2023-11-22] MEDS ORDERED: NALOXONE 0.4 MG/ML 1 ML VIAL IV PRN (00:35)
[2023-11-22] MEDS: SODIUM CHLORIDE 0.9% 1,000 ML IV STA (01:22)
[2023-11-22] MEDS: SODIUM CHLORIDE 0.9% 1,000 ML IV SCH (01:22)
[2023-11-22 02:00] LABS: Appearance,Urine Cloudy (Clear); Bacteria,Urine Occasional /hpf; Bilirubin,Urine Negative (Negative); Blood,Urine Trace (Negative); Color,Urine Light Yellow; Glucose,Urine (UA) 4+ (Negative); Hyaline Casts,Urine 3 /lpf (0-2); Ketones,Urine Negative (Negative); Leukocyte Esterase,Urine Large (Negative); Nitrite,Urine Positive (Negative); PH, Urine 5.5 (5.0-8.0); Protein,Urine Trace (Negative); RBC,Urine 7 /hpf (0-5); Specific Gravity,Urine 1.025 (1.001-1.035); Squamous Epithelial Cell,Urine 18 /hpf (0-4); Urobilinogen,Urine <2.0 mg/dL (<2.0); WBC,Urine >182 /hpf (0-5)
[2023-11-22] MEDS ORDERED: IPRATROPIUM 0.5 MG/2.5 ML NEBU INHALATION PRN (04:29)
[2023-11-22] MEDS ORDERED: DEXTROSE 50% SYRINGE 50 ML IVP PRN ×2 (04:30)
--- NOTE | 2023-11-22 04:39 | P.HPIM ---
History of Present Illness H&P Date: 11/22/23 Chief Complaint: Confusion and generalized weakness 83-year-old female with hypertension, diabetes mellitus, A-fib on Eliquis, COPD Patient coming in for generalized weakness. Patient lives at home with family today she was feeling extremely weak which she reports that this been progressive over the past month. She has been falling last fall was couple days ago where she had difficulty getting up denies any head injury denies any syncope or passing out. Her daughter helped her back on a chair. However due to increased weakness and confusion today family was concerned regarding urinary tract infection and hyperglycemia for which EMS was notified and she was brought into the hospital for evaluation At time of my evaluation patient laying comfortably in bed denies any headache vision changes hearing changes denies any chest pain trouble breathing nausea vomiting fevers chills sore throat abdominal pain. She does report that she is having some frequent urination and difficulty controlling her urine with some suprapubic discomfort she is voicing concerns re garding urinary tract infection as this has not happened before. Patient is hoping that she can get stronger after this hospital stay she does not mind going to get some rehab however she prefers if you can stay home and go to rehab visits as needed Patient denies any tobacco smoking illicit drugs or heavy alcohol review of systems Pertinent positives as noted in HPI. All other systems were reviewed and are negative on exam Constitutional: No acute distress, conversant, pleasant Eyes: Anicteric sclerae, moist conjunctiva, Pupils equal round reactive to light ENMT: NC/AT Oropharynx clear, no erythema, or exudates Neck: Supple, no masses, or JVD No carotid bruits No thyromegaly Lungs: Clear to auscultation Clear to percussion Normal respiratory effort, no accessory muscle use Cardiovascular: Heart regular in rate and rhythm, No murmurs, gallops, or rubs No peripheral edema Abdominal: Soft Discomfort to deep palpation of the suprapubic region, no guarding, rebound or rigidity Abdomen moving with respiration Normoactive bowel sounds No hepatomegaly, No splenomegaly No palpable mass No abdominal wall hernia noted Extremities: No digital cyanosis No clubbing Pedal pulses intact and symmetrical Radial pulses intact and symmetrical No calf tenderness Psychiatric: Alert and oriented to person, place and time Neuro Muscles Strength 4/5 in all 4 extremities Sensation to light touch grossly present throughout Cranial nerves II-XII grossly intact Lymphatics: no palpable cervical or supraclavicular lymph nodes Past Medical History Past Medical History: Atrial Fibrillation, Diabetes Mellitus, Hypertension, Memory Impairment Additional Past Medical History / Comment(s): patient poor historian History of Any Multi-Drug Resistant Organisms: VRE Date of last positivie culture/infection: 11/01/23 MDRO Source:: Urine Past Surgical History: Appendectomy Additional Past Surgical History / Comment(s): patient poor historian Past Anesthesia/Blood Transfusion Reactions: No Reported Reaction Past Psychological History: No Psychological Hx Reported Smoking Status: Never smoker Past Alcohol Use History: None Reported Past Drug Use History: None Reported Medications and Allergies Home Medications Medication Instructions Recorded Confirmed Type Acetaminophen [Tylenol 8 Hour] 1,300 mg PO HS 08/25/23 10/31/23 History Acetaminophen [Tylenol Arthritis] 650 mg PO AC-BRKFST 08/25/23 10/31/23 History Apixaban [Eliquis] 5 mg PO AC-BID 08/25/23 10/31/23 History Atorvastatin [Lipitor] 40 mg PO AC-BRKFST 08/25/23 10/31/23 History Calcium Carbonate [Calcium] 600 mg PO HS 08/25/23 10/31/23 History Diclofenac Sodium Gel [Voltaren 1% 1 applic TOPICAL QID PRN 08/25/23 10/31/23 History Gel] Dulaglutide [Trulicity] 0.75 mg SQ WE 08/25/23 10/31/23 History Escitalopram [Lexapro] 20 mg PO DAILY 08/25/23 10/31/23 History Ferrous Sulfate [Iron (65 MG 325 mg PO HS 08/25/23 10/31/23 History Elemental)] Insulin Glargine-Yfgn [Semglee 10 units SQ HS 08/25/23 10/31/23 History (Yfgn) Pen] Ipratropium-Albuterol Nebulize 3 ml INHALATION RT-QID PRN 08/25/23 10/31/23 History [Duoneb 0.5 mg-3 mg/3 ml Soln] Levothyroxine Sodium [Synthroid] 12.5 mcg PO AC-BRKFST 08/25/23 10/31/23 History Loperamide HCl [Imodium A-D] 2 mg PO QID PRN 08/25/23 10/31/23 History Loratadine 10 mg PO HS 08/25/23 10/31/23 History Montelukast [Singulair] 10 mg PO HS 08/25/23 10/31/23 History [place]-3/Dha/Epa/Fish Oil [Fish Oil 1 cap PO HS 08/25/23 10/31/23 History 1,000 mg Softgel] Pantoprazole [Protonix] 40 mg PO AC-BRKFST 08/25/23 10/31/23 History Potassium Gluconate 99 mg PO HS 08/25/23 10/31/23 History Prevagen 1 tab PO BID 08/25/23 10/31/23 History Super B Complex 1 tab PO HS 08/25/23 10/31/23 History Tiotropium 2.5 Mcg/Puff [Spiriva 1 puff INHALATION RT-DAILY PRN 08/25/23 10/31/23 History Respimat 2.5 Mcg] dilTIAZem HCL [dilTIAZem HCL 24Hr 180 mg PO -BRKFST 08/25/23 10/31/23 History ER (Xr)] Gabapentin [Neurontin] 300 mg PO TID 3 Days #9 cap 09/22/23 10/31/23 Rx Budesonide-Formot 160-4.5 Mcg 2 puff INHALATION RT-BID #1 each 10/28/23 10/31/23 Rx [Symbicort 160-4.5 Mcg Inhaler] Losartan [Cozaar] 50 mg PO DAILY #30 tab 10/28/23 10/31/23 Rx Acetaminophen Tab [Tylenol] 650 mg PO Q6HR PRN tab 11/04/23 Rx Ipratropium-Albuterol Nebulize 3 ml INHALATION RT-QID #100 each 11/04/23 Rx [Duoneb 0.5 mg-3 mg/3 ml Soln] predniSONE 10 mg PO DIRECTED #30 tab 11/04/23 Rx Allergies Allergy/AdvReac Type Severity Reaction Status Date / Time Penicillins Allergy Rash/Hives Verified 11/21/23 22:46 Physical Exam Vitals: Vital Signs Temp Pulse Resp BP Pulse Ox 11/22/23 00:00 90 18 151/83 95 11/21/23 23:46 93 20 130/62 95 11/21/23 22:39 97.5 F L 97 18 146/84 96 Intake and Output 11/21/23 11/21/23 11/22/23 14:59 22:59 06:59 Other: Weight 90.718 kg Results CBC & Chem 7: 11/21/23 22:59 11/21/23 22:59 Labs: Abnormal Lab Results - Last 24 Hours (Table) 11/21/23 11/21/23 11/21/23 Range/Units 22:59 22:59 22:59 APTT 21.5 L (22.0-30.0) sec Sodium 132 L (137-145) mmol/L Carbon Dioxide 21 L (22-30) mmol/L Glucose 412 H (74-99) mg/dL Plasma Lactic Acid Victor [place] 3.4 H* (0.7-2.0) mmol/L Total Protein 5.9 L (6.3-8.2) g/dL Albumin 3.3 L (3.5-5.0) g/dL Urine Appearance (Clear) Urine Protein (Negative) Urine Glucose (UA) (Negative) Urine Blood (Negative) Urine Nitrite (Negative) Ur Leukocyte Esterase (Negative) Urine RBC (0-5) /hpf Urine WBC (0-5) /hpf Urine WBC Clumps (None) /hpf Ur Squamous Epith Cells (0-4) /hpf Urine Bacteria (None) /hpf Hyaline Casts (0-2) /lpf 11/22/23 11/22/23 Range/Units 01:50 01:56 APTT (22.0-30.0) sec Sodium (137-145) mmol/L Carbon Dioxide (22-30) mmol/L Glucose (74-99) mg/dL Plasma Lactic Acid [place] 2.7 H* (0.7-2.0) mmol/L Total Protein (6.3-8.2) g/dL Albumin (3.5-5.0) g/dL Urine Appearance Cloudy H (Clear) Urine Protein Trace H (Negative) Urine Glucose (UA) 4+ H (Negative) Urine Blood Trace H (Negative) Urine Nitrite Positive H (Negative) Ur Leukocyte Esterase Large H (Negative) Urine RBC 7 H (0-5) /hpf Urine WBC >182 H (0-5) /hpf Urine WBC Clumps Moderate H (None) /hpf Ur Squamous Epith Cells 18 H (0-4) /hpf Urine Bacteria Occasional H (None) /hpf Hyaline Casts 3 H (0-2) /lpf Assessment and Plan Assessment: 83-year-old female with diabetes mellitus, A-fib on Eliquis coming in due to increased confusion and generalized weakness with recent fall at home with difficulties getting up. I discussed the case with ED doctor and accepted the admission for urinary tract infection and generalized weakness with anticipated length of stay less than 2 midnights UTI Follow-up cultures Initiate Rocephin 1 g IV piggyback daily Tylenol for fever Gentle IV fluid hydration normal saline 120 cc/h Lactic acidosis 3.4 continue to follow-up UA positive Renal function unremarkable sodium 132 potassium 3.9 BUN 9 creatinine 0.8 Afebrile White count 5 hemoglobin 12.5 Chronic conditions Diabetes mellitus Insulin sliding scale Check A1c Paroxysmal A-fib Resume Eliquis home medication Resume diltiazem home medication Hypothyroid resume levothyroxine home medication COPD Resume Symbicort DuoNebs as needed as needed Supplemental oxygen as needed Full code DVT prophylaxis on Eliquis for A-fib
[2023-11-22] MEDS: LEVOTHYROXINE 25 MCG TAB PO SCH (05:54)
[2023-11-22 06:05] LABS: Glucose,Whole Blood 365 mg/dL (70-110)
[2023-11-22] MEDS: IPRATROPIUM-ALBUTEROL 3 ML NEB INHALATION PRN (07:57)
[2023-11-22 07:58] LABS: Glucose,Whole Blood 301 mg/dL (70-110)
[2023-11-22] MEDS: SYMBICORT 160-4.5 MCG INHALER INHALATION SCH (07:58)
[2023-11-22] MEDS: ATORVASTATIN 40 MG TAB PO SCH (08:19)
[2023-11-22] MEDS: PANTOPRAZOLE 40 MG TABLET PO SCH (08:20)
[2023-11-22] MEDS: DILTIAZEM CD 180 MG CAP.ER.24H PO SCH (08:20)
[2023-11-22] MEDS: APIXABAN 5 MG TAB PO SCH (08:20)
[2023-11-22] MEDS: LOSARTAN 50 MG TAB PO SCH (08:21)
[2023-11-22] MEDS: INSULIN ASPART (NovoLOG) 100 UNIT/ML VIAL SQ SCH (08:21)
[2023-11-22 10:20] LABS: Glucose,Whole Blood 323 mg/dL (70-110)
[2023-11-22] MEDS: INSULIN DETEMIR (LEVEMIR) 100 UNIT/ML SYR SQ SCH (10:23)
[2023-11-22 11:09] LABS: HCT 36.9 % (34.0-46.0); HGB 11.8 gm/dL (11.4-16.0); Hypochromasia Slight; MCH 29.1 pg (25.0-35.0); Mean Platelet Volume 7.9; Platelet Count 203 k/uL (150-450); RBC 4.05 m/uL (3.80-5.40); RDW 14.3 % (11.5-15.5); WBC 4.9 k/uL (3.8-10.6)
[2023-11-22 11:23] LABS: ALT 18 U/L (4-34); AST 22 U/L (14-36); African American GFR (CKD) >90 (>60 ml/min/1.73 sqM); Albumin 3.1 g/dL (3.5-5.0); Albumin/Globulin Ratio 1.2; Alkaline Phosphatase 87 U/L (38-126); Anion Gap 9 mmol/L; Blood Urea Nitrogen 9 mg/dL (7-17); Calcium 8.4 mg/dL (8.4-10.2); Carbon Dioxide 21 mmol/L (22-30); Chloride 106 mmol/L (98-107); Globulin 2.6 g/dL; Glucose 327 mg/dL (74-99); Magnesium 1.5 mg/dL (1.6-2.3); Non-African American GFR(CKD) 85 (>60 ml/min/1.73 sqM); Sodium 136 mmol/L (137-145); Total Bilirubin 0.6 mg/dL (0.2-1.3); Total Protein 5.7 g/dL (6.3-8.2)
[2023-11-22 12:06] LABS: Glucose,Whole Blood 295 mg/dL (70-110)
--- NOTE | 2023-11-22 16:06 | P.PN ---
Subjective Progress Note Date: 11/22/23 Hospital course: Patient is a very pleasant 83-year-old female with a past medical history of p chronic atrial fibrillation, insulin-dependent diabetes mellitus, hypertension, and memory impairment. She presented to the emergency department overnight secondary to complaints of confusion, hallucinations and generalized weakness. She underwent full evaluation upon arrival. Vital signs show blood pressure 146/84, heart rate 97, respiratory rate 18, 97.5 F, and SpO2 of 96% on room air. Labs completed and reviewed. CBC unremarkable. BMP showing pseudohyponatremia with sodium of 132 and elevated glucose of 412 with corrected glucose of 137. Lactic acid was elevated at 3.4. Urinalysis was contaminated but positive for protein, glucose, blood, nitrites, and greater than [address] brain was negative for acute intracranial process showing age-related cerebral atrophy and moderately advanced chronic small vessel ischemic changes redemonstrated. EKG was completed showing atrial fibrillation with a controlled ventricular rate of 95 bpm. Patient was started on IV antibiotics and admitted under services at this time. Physical exam: Patient seen and fully evaluated at bedside this morning. She currently denies having any pain or complaints at this time. Patient does report that she continues to have visual and auditory hallucinations. She is alert and oriented x 4 and reports that she knows she is seeing and hearing things because she is seeing her parents and grandparents and she knows they are but she has seen them multiple times and had conversations with them multiple times over the past 4 to 5 days. Patient denies this ever happening prior in the past. Vital signs reviewed and stable. General: Nontoxic, no distress and appears stated age. Derm: Skin warm and dry, normal coloration for ethnicity. Head: Atraumatic, normocephalic and symmetric. Eyes: EOMs intact, no lid lag, and anicteric sclera Mouth: no lip lesions, mucus membranes moist Cardiovascular: regular rate and rhythm with normal S1S2, no murmur, positive posterior tibial pulses bilaterally, and cap refill < 2 seconds. Lungs: Respirations even, regular, and unlabored on room air. Lungs CTA bilaterally, no rhonchi, no rales, no wheezing, and no accessory muscle usage. Abdominal: soft, nontender to palpation, no guarding, no appreciable organomegaly Ext: ROM intact. No gross muscle atrophy, no edema, no contractures Neuro: Speech clear, face symmetrical and CN II-XII grossly intact with no noted focal neuro deficits Psych: Alert and oriented to person, place, time, and situation. Appropriate and pleasant affect. Assessment and Plan of Care: Acute cystitis Acute metabolic encephalopathy with delirium, patient with reports of visual and auditory hallucinations over the past 4 to 5 days likely secondary to acute infection resulting from UTI Lactic acidosis -Follow-up on urine and blood culture results -Continue IV antibiotics with Rocephin 1 g IVPB every 24 hours -Tylenol 650 mg every 6 hours as needed for fever/mild pain -Continue with gentle IV fluid hydration with 0.9% normal saline at 100 cc/h -Monitor for resolution of lactic acidosis -Order placed for bladder scans to monitor for postvoid residuals. -Neurochecks every 4 hours secondary to reports of visual and auditory hallucinations -Provide safe and supportive care with redirection/reorientation as needed. -Will also obtain a TSH secondary to visual and auditory hallucinations. Diabetes mellitus with hyperglycemia -Continue glycemic protocol with NovoLog sliding scale and patient started on Levemir 10 units daily secondary to persistent hyperglycemia with morning glucose of 327 -Hemoglobin A1c to be obtained Hypomagnesemia Magnesium 1.5. Orders placed for magnesium sulfate 2 g IVPB. We will continue to monitor with repeat morning labs and place additional orders as indicated based upon these results. Chronic atrial fibrillation -Continue medication regimen with Eliquis 5 mg twice daily and Cardizem 180 mg daily. Hypothyroidism Continue daily medication regimen with levothyroxine 12.5 mcg daily. TSH with reflex free T4 to be completed. COPD, not in acute exacerbation. -Continue Symbicort 2 puffs twice daily and DuoNebs as needed for wheezing and/or shortness of breath. Data and imaging reviewed: Morning labs reviewed. CBC and BMP unremarkable with the exception of hyperglycemia with glucose of 327. Magnesium low 1.5. Liver profile unremarkable. Vital signs reviewed and stable. Blood pressure 152/86, heart rate 88, respiratory rate 20, temp 97.6 F, and SpO2 of 95% on room air. CODE STATUS: Full code DVT prophylaxis: Eliquis Anticipated discharge date: Clinical course to determine Anticipated discharge place: Clinical course to determine Patient was seen independently by Nurse Pracitioner. This document was prepared using [employer] dictation software. Please allow for errors in counterintelligence specialist, while rare they do occur. Hayden Poncho, FRONTEND ENGINEER rendered care for this patient independently, reviewed the findings and plan as documented in the note above. I did not physically speak with or examine the patient on this date. Objective - Vital Signs Vital signs: Vital Signs Temp 97.6 F 11/22/23 07:36 Pulse 85 11/22/23 08:16 Resp 20 11/22/23 07:36 BP 152/86 11/22/23 07:36 Pulse Ox 95 11/22/23 07:36 FiO2 Intake & Output 11/21/23 11/22/23 11/22/23 18:59 06:59 18:59 Weight 90.718 kg - Labs CBC & Chem 7: 11/25/23 07:30 11/25/23 07:30 Labs: Abnormal Lab Results - Last 24 Hours (Table) 11/21/23 11/21/23 11/21/23 Range/Units 22:59 22:59 22:59 APTT 21.5 L (22.0-30.0) sec Sodium 132 L (137-145) mmol/L Carbon Dioxide 21 L (22-30) mmol/L Glucose 412 H (74-99) mg/dL POC Glucose (mg/dL) (70-110) mg/dL Plasma Lactic Acid Victor Hugo 3.4 H* (0.7-2.0) mmol/L Total Protein 5.9 L (6.3-8.2) g/dL Albumin 3.3 L (3.5-5.0) g/dL Urine Appearance (Clear) Urine Protein (Negative) Urine Glucose (UA) (Negative) Urine Blood (Negative) Urine Nitrite (Negative) Ur Leukocyte Esterase (Negative) Urine RBC (0-5) /hpf Urine WBC (0-5) /hpf Urine WBC Clumps (None) /hpf Ur Squamous Epith Cells (0-4) /hpf Urine Bacteria (None) /hpf Hyaline Casts (0-2) /lpf 11/22/23 11/22/23 11/22/23 Range/Units 01:50 01:56 05:31 APTT (22.0-30.0) sec Sodium (137-145) mmol/L Carbon Dioxide (22-30) mmol/L Glucose (74-99) mg/dL POC Glucose (mg/dL) (70-110) mg/dL Plasma Lactic Acid Victor Hugo 2.7 H* 2.4 H* (0.7-2.0) mmol/L Total Protein (6.3-8.2) g/dL Albumin (3.5-5.0) g/dL Urine Appearance Cloudy H (Clear) Urine Protein Trace H (Negative) Urine Glucose (UA) 4+ H (Negative) Urine Blood Trace H (Negative) Urine Nitrite Positive H (Negative) Ur Leukocyte Esterase Large H (Negative) Urine RBC 7 H (0-5) /hpf Urine WBC >182 H (0-5) /hpf Urine WBC Clumps Moderate H (None) /hpf Ur Squamous Epith Cells 18 H (0-4) /hpf Urine Bacteria Occasional H (None) /hpf Hyaline Casts 3 H (0-2) /lpf 11/22/23 11/22/23 11/22/23 Range/Units 06:02 07:56 08:09 APTT (22.0-30.0) sec Sodium (137-145) mmol/L Carbon Dioxide (22-30) mmol/L Glucose (74-99) mg/dL POC Glucose (mg/dL) 365 H 301 H (70-110) mg/dL Plasma Lactic Acid Victor Hugo 2.3 H* (0.7-2.0) mmol/L Total Protein (6.3-8.2) g/dL Albumin (3.5-5.0) g/dL Urine Appearance (Clear) Urine Protein (Negative) Urine Glucose (UA) (Negative) Urine Blood (Negative) Urine Nitrite (Negative) Ur Leukocyte Esterase (Negative) Urine RBC (0-5) /hpf Urine WBC (0-5) /hpf Urine WBC Clumps (None) /hpf Ur Squamous Epith Cells (0-4) /hpf Urine Bacteria (None) /hpf Hyaline Casts (0-2) /lpf
[2023-11-22 17:09] LABS: Glucose,Whole Blood 146 mg/dL (70-110)
[2023-11-22] MEDS: MAGNESIUM SULFATE-D5W PMX 1 GM in DEXTROSE/WATER 1 100ML.BAG IVPB SCH (17:37)
[2023-11-22] MEDS: ESCITALOPRAM 20 MG TAB PO SCH (17:52)
[2023-11-22] MEDS ORDERED: NON FORMULARY DRUG (Omega-3/Dha/Epa/Fish Oil [Fish Oil 1,000 Mg Softgel] 1 EACH Capsule) PO SCH (21:00)
[2023-11-22] MEDS ORDERED: NON FORMULARY DRUG (Acetaminophen [Tylenol 8 Hour] 650 MG Tablet) PO SCH (21:00)
[2023-11-22 21:25] LABS: Glucose,Whole Blood 259 mg/dL (70-110)
[2023-11-22] MEDS: FERROUS SULFATE 325 MG TAB PO SCH (21:30)
[2023-11-22] MEDS: MONTELUKAST 10 MG TAB PO SCH (21:30)
[2023-11-23 06:25] LABS: Glucose,Whole Blood 180 mg/dL (70-110)
[2023-11-23 08:46] LABS: HGB 11.2 g/dL (12.0-15.0); MCH 28.4 pg (27.0-32.0); MCV 88.6 FL (80.0-97.0); Mean Platelet Volume 10.8 FL (9.5-12.2); NRBC Per 100 WBC 0 X 10*3/uL (0.00-0.01); Platelet Count 205 X 10*3/uL (140-440); RBC 3.95 X 10*6/uL (4.10-5.20); RDW 14.2 % (11.5-14.5); WBC 4.87 X 10*3/uL (4.50-10.00)
[2023-11-23 09:10] LABS: BUN/Creat Ratio 7.17 Ratio (12.00-20.00); Blood Urea Nitrogen 4.3 mg/dL (9.0-27.0); Glucose 192 mg/dL (70-110)
[2023-11-23 09:11] LABS: ALT 12 U/L (8-44); AST 15 U/L (13-35); Albumin 3.1 g/dL (3.8-4.9); Albumin/Globulin Ratio 1.55 Ratio (1.60-3.17); Alkaline Phosphatase 86 U/L (41-126); Calcium 8.2 mg/dL (8.7-10.3); Carbon Dioxide 24.5 mmol/L (21.6-31.8); Chloride 106 mmol/L (96-109); Magnesium 1.9 mg/dL (1.5-2.4); Potassium 3.8 mmol/L (3.5-5.5); Sodium 141 mmol/L (135-145); Total Bilirubin 0.6 mg/dL (0.3-1.2); Total Protein 5.1 g/dL (6.2-8.2)
[2023-11-23 12:44] LABS: Glucose,Whole Blood 367 mg/dL (70-110)
--- NOTE | 2023-11-23 14:53 | P.PN ---
Subjective Progress Note Date: 11/23/23 Hospital course: Patient is a very pleasant 83-year-old female with a past medical history of chronic atrial fibrillation, insulin-dependent diabetes mellitus, hypertension, and memory impairment. She presented to the emergency department overnight secondary to complaints of confusion, hallucinations and generalized weakness. She underwent full evaluation upon arrival. Vital signs show blood pressure 146/84, heart rate 97, respiratory rate 18, 97.5 F, and SpO2 of 96% on room air. Labs completed and reviewed. CBC unremarkable. BMP showing pseudohyponatremia with sodium of 132 and elevated glucose of 412 with corrected glucose of 137. Lactic acid was elevated at 3.4. Urinalysis was contaminated but positive for protein, glucose, blood, nitrites, and greater than [address] brain was negative for acute intracranial process showing age-related cerebral atrophy and moderately advanced chronic small vessel ischemic changes redemonstrated. EKG was completed showing atrial fibrillation with a controlled ventricular rate of 95 bpm. Patient was started on IV antibiotics and admitted under services at this time. Physical exam: Patient seen and fully evaluated at bedside this morning. Patient remains alert and oriented but continues to have episodes of visual hallucinations along with episodes of confusion. During morning assessment patient reports "what a beautiful show they are putting on over there" patient pointing to window and wall and describes watching a show with ask and describes different scenes throughout the show. Acute delirium believed to be secondary to infectious process resulting from UTI. Urine culture preliminarily positive for gram- negative bacilli. Secondary to persistent delirium and continued need for treatment of UTI pending final culture and sensitivity report, patient gailing observation status and orders placed for inpatient admission at this time. Vital alert to person and placesigns reviewed and stable. General: Nontoxic, no distress and appears stated age. Derm: Skin warm and dry, normal coloration for ethnicity. Head: Atraumatic, normocephalic and symmetric. Eyes: EOMs intact, no lid lag, and anicteric sclera Mouth: no lip lesions, mucus membranes moist Cardiovascular: Irregularly irregular positive posterior tibial pulses bilaterally, and cap refill < 2 seconds. Lungs: Respirations even, regular, and unlabored on room air. Lungs CTA bilaterally, no rhonchi, no rales, no wheezing, and no accessory muscle usage. Abdominal: soft, nontender to palpation, no guarding, no appreciable org anomegaly Ext: ROM intact. No gross muscle atrophy, no edema, no contractures Neuro: Speech clear, face symmetrical and CN II-XII grossly intact with no noted focal neuro deficits Psych: Alert and oriented to person, place, time, and situation. Appropriate and pleasant affect. Assessment and Plan of Care: Acute cystitis Acute metabolic encephalopathy with delirium, patient with reports of visual and auditory hallucinations believed to be resulting from infectious process secondary to UTI -Preliminary urine culture positive for gram-negative bacilli blood culture showing no growth to date. -Follow-up on final culture and sensitivity reports. -Continue IV antibiotics with Rocephin 1 g IVPB every 24 hours -Tylenol 650 mg every 6 hours as needed for fever/mild pain -Patient received IV fluid hydration, tolerating oral intake well. IV fluids discontinued. -Continue bladder scans to monitor for postvoid residuals. -Continue neurochecks every 4 hours secondary to reports of visual and auditory hallucinations -Provide safe and supportive care with redirection/reorientation as needed. -Will also obtain a TSH secondary to visual and auditory hallucinations. Diabetes mellitus with hyperglycemia -Continue glycemic protocol with NovoLog sliding scale and Levemir 10 units daily. -Hemoglobin A1c 9.8% Lactic acidosis, resolved Hypomagnesemia, resolved. Chronic atrial fibrillation -Continue medication regimen with Eliquis 5 mg twice daily and Cardizem 180 mg daily. Hypothyroidism Continue daily medication regimen with levothyroxine 12.5 mcg daily. TSH normal findings at 1.670. COPD, not in acute exacerbation. -Continue Symbicort 2 puffs twice daily and DuoNebs as needed for wheezing and/or shortness of breath. Data and imaging reviewed: Morning labs reviewed. CBC and BMP unremarkable with the exception of hyperglycemia with glucose of 192. Vital signs reviewed and stable. Blood pressure 139/70, heart rate 110, respiratory rate 15, temp 98.3 F, SpO2 of 96% on room air. Patient remains alert and oriented but continues to have episodes of visual kamala lucinations along with episodes of confusion. During morning assessment patient reports "what a beautiful show they are putting on over there" patient pointing to window and wall and describes watching a show with ask and describes different scenes throughout the show. Acute delirium believed to be secondary to infectious process resulting from UTI. Urine culture preliminarily positive for gram-negative bacilli. Secondary to persistent delirium and continued need for treatment of UTI pending final culture and sensitivity report, patient gailing observation status and orders placed for inpatient admission at this time. CODE STATUS: Full code DVT prophylaxis: Eliquis Anticipated discharge date: Clinical course to determine Anticipated discharge place: Clinical course to determine Patient was seen independently by Nurse Pracitioner. This document was prepared using [employer] dictation software. Please allow for errors in registered mail clerk, while rare they do occur. Hayden Isaac NP rendered care for this patient independently, reviewed the findings and plan as documented in the note above. I did not physically speak with or examine the patient on this date. Objective - Vital Signs Vital signs: Vital Signs Temp 98.3 F 11/23/23 07:10 Pulse 110 H 11/23/23 07:10 Resp 15 11/23/23 07:10 BP 139/70 11/23/23 07:10 Pulse Ox 96 11/23/23 07:10 FiO2 Intake & Output 11/22/23 11/23/23 11/23/23 18:59 06:59 18:59 Intake Total 118 Output Total 600 1700 Balance -482 -1700 Weight 90.718 kg Intake: Oral 118 Output: Urine 600 1700 Other: Voiding Method External Catheter External Catheter External Catheter # Bowel Movements 0 - Labs CBC & Chem 7: 11/23/23 05:47 11/23/23 05:47 Labs: Abnormal Lab Results - Last 24 Hours (Table) 11/22/23 11/22/23 11/22/23 Range/Units 10:19 10:55 10:55 Sodium 136 L (137-145) mmol/L Carbon Dioxide 21 L (22-30) mmol/L Glucose 327 H (74-99) mg/dL POC Glucose (mg/dL) 323 H (70-110) mg/dL Plasma Lactic Acid Victor Hugo 3.0 H* (0.7-2.0) mmol/L Magnesium 1.5 L (1.6-2.3) mg/dL Total Protein 5.7 L (6.3-8.2) g/dL Albumin 3.1 L (3.5-5.0) g/dL 11/22/23 11/22/23 11/22/23 Range/Units 12:04 17:07 21:24 Sodium (137-145) mmol/L Carbon Dioxide (22-30) mmol/L Glucose (74-99) mg/dL POC Glucose (mg/dL) 295 H 146 H 259 H (70-110) mg/dL Plasma Lactic Acid Victor Hugo (0.7-2.0) mmol/L Magnesium (1.6-2.3) mg/dL Total Protein (6.3-8.2) g/dL Albumin (3.5-5.0) g/dL 11/23/23 Range/Units 06:23 Sodium (137-145) mmol/L Carbon Dioxide (22-30) mmol/L Glucose (74-99) mg/dL POC Glucose (mg/dL) 180 H (70-110) mg/dL Plasma Lactic Acid Victor Hugo (0.7-2.0) mmol/L Magnesium (1.6-2.3) mg/dL Total Protein (6.3-8.2) g/dL Albumin (3.5-5.0) g/dL
[2023-11-23 17:47] LABS: Glucose,Whole Blood 174 mg/dL (70-110)
[2023-11-23] MEDS: NYSTATIN 100,000 UNIT/GM OINT 30 GM TUBE TOPICAL SCH (17:53)
[2023-11-23 20:20] LABS: Glucose,Whole Blood 253 mg/dL (70-110)
[2023-11-24 06:32] LABS: Glucose,Whole Blood 205 mg/dL (70-110)
[2023-11-24] MEDS: CEFEPIME 2 GM in SODIUM CHLORIDE 0.9% 100 ML IVPB SCH (11:31)
[2023-11-24 12:01] LABS: Glucose,Whole Blood 255 mg/dL (70-110)
[2023-11-24 13:04] VITALS: BMI 32.3
--- NOTE | 2023-11-24 16:47 | P.PN ---
Subjective Progress Note Date: 11/24/23 Hospital course: Patient is a very pleasant 83-year-old female with a past medical history of chronic atrial fibrillation, insulin-dependent diabetes mellitus, hypertension, and memory impairment. She presented to the emergency department overnight secondary to complaints of confusion, hallucinations and generalized weakness. She underwent full evaluation upon arrival. Vital signs show blood pressure 146/84, heart rate 97, respiratory rate 18, 97.5 F, and SpO2 of 96% on room air. Labs completed and reviewed. CBC unremarkable. BMP showing pseudohyponatremia with sodium of 132 and elevated glucose of 412 with corrected glucose of 137. Lactic acid was elevated at 3.4. Urinalysis was contaminated but positive for protein, glucose, blood, nitrites, and greater than [address] brain was negative for acute intracranial process showing age-related cerebral atrophy and moderately advanced chronic small vessel ischemic changes redemonstrated. EKG was completed showing atrial fibrillation with a controlled ventricular rate of 95 bpm. Patient was started on IV antibiotics and admitted under services at this time. Patient was noted to have episodes of visual hallucinations and confusion concerning for delirium secondary to infection. Urine culture resulting positive for Citrobacter freundii which was resistant to Rocephin initially being given for acute cystitis. Rocephin discontinued and patient placed on cefepime per culture and sensitivity report. Consult was placed to infectious disease. Physical exam: Patient remains alert and oriented at this time, RN denies patient having any noted episodes of hallucination however patient seems more sleepy this morning. She does awaken via verbal stimuli but quickly back to sleep. Will continue to monitor closely. General: Nontoxic, no distress and appears stated age. Derm: Skin warm and dry, normal coloration for ethnicity. Head: Atraumatic, normocephalic and symmetric. Eyes: EOMs intact, no lid lag, and anicteric sclera Mouth: no lip lesions, mucus membranes moist Cardiovascular: Irregularly irregular positive posterior tibial pulses bilaterally, and cap refill < 2 seconds. Lungs: Respirations even, regular, and unlabored on room air. Lungs CTA bilaterally, no rhonchi, no rales, no wheezing, and no accessory muscle usage. Abdominal: soft, nontender to palpation, no guarding, no appreciable organomegaly Ext: ROM intact. No gross muscle atrophy, no edema, no contractures Neuro: Speech clear, face symmetrical and CN II-XII grossly intact with no noted focal neuro deficits Psych: Alert and oriented to person, place, time, and situation. Appropriate and pleasant affect. Assessment and Plan of Care: Citrobacter freundii UTI Acute metabolic encephalopathy with delirium, patient with reports of visual and auditory hallucinations believed to be resulting from infectious process secondary to UTI -Blood cultures showing no growth to date. -Urine culture positive for Citrobacter freundii -Rocephin discontinued and patient started on cefepime 2 g every 8 hours. -Continue Tylenol 650 mg every 6 hours as needed for fever/mild pain -Patient received IV fluid hydration, tolerating oral intake well and IV fluids were discontinued. -Continue bladder scans to monitor for postvoid residuals. -Continue neurochecks every 4 hours secondary to reports of visual and auditory hallucinations -Provide safe and supportive care with redirection/reorientation as needed. -TSH normal findings at 1.670. Diabetes mellitus with hyperglycemia -Continue glycemic protocol with NovoLog sliding scale and Levemir 10 units daily. -Hemoglobin A1c 9.8% Lactic acidosis, resolved Hypomagnesemia, resolved. Chronic atrial fibrillation -Continue medication regimen with Eliquis 5 mg twice daily and Cardizem 180 mg daily. Hypothyroidism Continue daily medication regimen with levothyroxine 12.5 mcg daily. TSH normal findings at 1.670. COPD, not in acute exacerbation. -Continue Symbicort 2 puffs twice daily and DuoNebs as needed for wheezing and/or shortness of breath. Data and imaging reviewed: Morning labs reviewed. Urine culture resulting positive for Citrobacter freundii. Blood culture showing no growth to date. Vital signs reviewed and stable. Blood pressure 182/84, heart rate 100, respiratory rate 16, temp 98.6 F, 94% on room air. CODE STATUS: Full code DVT prophylaxis: Eliquis Anticipated discharge date: Clinical course to determine Anticipated discharge place: Clinical course to determine Patient was seen independently by Nurse Pracitioner. This document was prepared using [employer] dictation software. Please allow for errors in solar fabrication technician, while rare they do occur. I reviewed the documentation as provided by the MANJINDER above, who is the original author of this note. I agree with the documented assessment and plan, with the following changes: none Objective - Vital Signs Vital signs: Vital Signs Temp 98.6 F 11/24/23 07:00 Pulse 100 11/24/23 07:00 Resp 16 11/24/23 07:00 BP 182/84 11/24/23 07:00 Pulse Ox 94 L 11/24/23 07:00 FiO2 Intake & Output 11/23/23 11/24/23 11/24/23 18:59 06:59 18:59 Intake Total 726 Output Total 950 800 Balance -224 -800 Intake: Oral 726 Output: Urine 950 800 Other: Voiding Method External Catheter External Catheter # Voids 1 - Labs CBC & Chem 7: 11/25/23 07:30 11/23/23 05:47 Labs: Abnormal Lab Results - Last 24 Hours (Table) 11/23/23 11/23/23 11/23/23 Range/Units 05:47 05:47 05:47 RBC 3.95 L (4.10-5.20) X 10*6/uL Hgb 11.2 L (12.0-15.0) g/dL Hct 35.0 L (37.2-46.3) % BUN 4.3 L (9.0-27.0) mg/dL BUN/Creatinine Ratio 7.17 L (12.00-20.00) Ratio Glucose 192 H (70-110) mg/dL POC Glucose (mg/dL) (70-110) mg/dL Hemoglobin A1c 9.8 H (<=6.0) % Calcium 8.2 L (8.7-10.3) mg/dL Total Protein 5.1 L (6.2-8.2) g/dL Albumin 3.1 L (3.8-4.9) g/dL Albumin/Globulin Ratio 1.55 L (1.60-3.17) Ratio 11/23/23 11/23/23 11/23/23 Range/Units 12:42 17:46 20:19 RBC (4.10-5.20) X 10*6/uL Hgb (12.0-15.0) g/dL Hct (37.2-46.3) % BUN (9.0-27.0) mg/dL BUN/Creatinine Ratio (12.00-20.00) Ratio Glucose (70-110) mg/dL POC Glucose (mg/dL) 367 H 174 H 253 H (70-110) mg/dL Hemoglobin A1c (<=6.0) % Calcium (8.7-10.3) mg/dL Total Protein (6.2-8.2) g/dL Albumin (3.8-4.9) g/dL Albumin/Globulin Ratio (1.60-3.17) Ratio 11/24/23 Range/Units 06:28 RBC (4.10-5.20) X 10*6/uL Hgb (12.0-15.0) g/dL Hct (37.2-46.3) % BUN (9.0-27.0) mg/dL BUN/Creatinine Ratio (12.00-20.00) Ratio Glucose (70-110) mg/dL POC Glucose (mg/dL) 205 H (70-110) mg/dL Hemoglobin A1c (<=6.0) % Calcium (8.7-10.3) mg/dL Total Protein (6.2-8.2) g/dL Albumin (3.8-4.9) g/dL Albumin/Globulin Ratio (1.60-3.17) Ratio Microbiology - Last 24 Hours (Table) 11/22/23 04:53 Blood Culture - Preliminary Blood 11/22/23 01:50 Urine Culture - Preliminary Urine,Voided Gram Neg Bacilli
[2023-11-24 17:22] LABS: Glucose,Whole Blood 260 mg/dL (70-110)
[2023-11-24 19:35] LABS: Glucose,Whole Blood 210 mg/dL (70-110)
--- NOTE | 2023-11-24 22:43 | P.CONS ---
History of Present Illness - Reason for Consult Consult date: 11/24/23 - History of Present Illness Patient is a 83-year-old female with a past medical history significant for diabetes mellitus hypertension atrial fibrillation memory impairment presenting to the hospital 3 days ago for evaluation of generalized weakness and mental status changes apparently the patient symptom has been going on for a day or 2 before the patient was brought into the hospital patient denies having any high-grade fever or chills and no fever have recorded during this hospital stay patient denies having any URI symptoms no chest pain or shortness of breath she did have some cough but not bringing up any sputum no nausea vomiting no abdominal pain or diarrhea did have some vague urinary symptoms on presentation to the hospital the patient was afebrile and no fever has been called subsequently patient white count of 5.0 creatinine has been normal liver isms are normal electrolytes are normal patient did have a positive UA having more than 182 WBC culture subsequently has been finalized with Citrobacter that was resistant to ceftriaxone antibiotic was switched to cefepime infectious disease was consulted for further management of it by therapy blood culture has been negative so far CT of the brain was negative for any bleed Past Medical History Past Medical History: Atrial Fibrillation, Diabetes Mellitus, Hypertension, Memory Impairment Additional Past Medical History / Comment(s): patient poor historian History of Any Multi-Drug Resistant Organisms: VRE Year Discovered:: 11/01/23 MDRO Source:: Urine Past Surgical History: Appendectomy Additional Past Surgical History / Comment(s): patient poor historian Past Anesthesia/Blood Transfusion Reactions: No Reported Reaction Smoking Status: Unknown if ever smoked Medications and Allergies Home Medications Medication Instructions Recorded Confirmed Type Acetaminophen [Tylenol 8 Hour] 1,300 mg PO HS 08/25/23 11/22/23 History Acetaminophen [Tylenol Arthritis] 650 mg PO AC-BRKFST 08/25/23 11/22/23 History Apixaban [Eliquis] 5 mg PO AC-BID 08/25/23 11/22/23 History Atorvastatin [Lipitor] 40 mg PO AC-BRKFST 08/25/23 11/22/23 History Calcium Carbonate [Calcium] 600 mg PO HS 08/25/23 11/22/23 History Diclofenac Sodium Gel [Voltaren 1% 1 applic TOPICAL QID PRN 08/25/23 11/22/23 History Gel] Dulaglutide [Trulicity] 0.75 mg SQ WE 08/25/23 11/22/23 History Escitalopram [Lexapro] 20 mg PO DAILY 08/25/23 11/22/23 History Ferrous Sulfate [Iron (65 MG 325 mg PO HS 08/25/23 11/22/23 History Elemental)] Insulin Glargine-Yfgn [Semglee 10 units SQ HS 08/25/23 11/22/23 History (Yfgn) Pen] Ipratropium-Albuterol Nebulize 3 ml INHALATION RT-QID PRN 08/25/23 11/22/23 History [Duoneb 0.5 mg-3 mg/3 ml Soln] Levothyroxine Sodium [Synthroid] 12.5 mcg PO AC-[facility] 08/25/23 11/22/23 History Loperamide HCl [Imodium A-D] 2 mg PO QID PRN 08/25/23 11/22/23 History Loratadine 10 mg PO HS 08/25/23 11/22/23 History Montelukast [Singulair] 10 mg PO HS 08/25/23 11/22/23 History [place]-3/Dha/Epa/Fish Oil [Fish Oil 1 cap PO HS 08/25/23 11/22/23 History 1,000 mg Softgel] Pantoprazole [Protonix] 40 mg PO -[facility] 08/25/23 11/22/23 History Potassium Gluconate 99 mg PO HS 08/25/23 11/22/23 History Prevagen 1 tab PO BID 08/25/23 11/22/23 History Super B Complex 1 tab PO HS 08/25/23 11/22/23 History Tiotropium 2.5 Mcg/Puff [Spiriva 1 puff INHALATION RT-DAILY PRN 08/25/23 11/22/23 History Respimat 2.5 Mcg] dilTIAZem HCL [dilTIAZem HCL 24Hr 180 mg PO AC-KT 08/25/23 11/22/23 History ER (Xr)] Gabapentin [Neurontin] 300 mg PO TID 3 Days #9 cap 09/22/23 11/22/23 Rx Budesonide-Formot 160-4.5 Mcg 2 puff INHALATION RT-BID #1 each 10/28/23 11/22/23 Rx [Symbicort 160-4.5 Mcg Inhaler] Losartan [Cozaar] 50 mg PO DAILY #30 tab 10/28/23 11/22/23 Rx Acetaminophen Tab [Tylenol] 650 mg PO Q6HR PRN tab 11/04/23 11/22/23 Rx Ipratropium-Albuterol Nebulize 3 ml INHALATION RT-QID #100 each 11/04/23 11/22/23 Rx [Duoneb 0.5 mg-3 mg/3 ml Soln] predniSONE See Taper PO DIRECTED 11/22/23 11/22/23 History Allergies Allergy/AdvReac Type Severity Reaction Status Date / Time Penicillins Allergy Rash/Hives Verified 11/22/23 09:47 Physical Exam Vitals: Vital Signs Temp Pulse Resp BP Pulse Ox 11/24/23 08:00 100 16 11/24/23 07:00 98.6 F 100 16 182/84 94 L 11/24/23 02:07 98.6 F 74 16 127/61 96 11/23/23 20:00 15 11/23/23 19:05 98.5 F 80 15 135/77 94 L 11/23/23 14:23 97.2 F L 88 20 97 Intake and Output 11/23/23 11/24/23 11/24/23 22:59 06:59 14:59 Output Total 500 800 Balance -500 -800 Output: Urine 500 800 Other: Voiding Method External Catheter External Catheter # Voids 1 Weight 90.718 kg Results CBC & Chem 7: 11/25/23 07:30 11/25/23 07:30 Labs: Abnormal Lab Results - Last 24 Hours (Table) 11/23/23 11/23/23 11/24/23 Range/Units 17:46 20:19 06:28 POC Glucose (mg/dL) 174 H 253 H 205 H (70-110) mg/dL 11/24/23 Range/Units 12:00 POC Glucose (mg/dL) 255 H (70-110) mg/dL Microbiology - Last 24 Hours (Table) 11/22/23 01:50 Urine Culture - Final Urine,Voided Citrobacter freundii 11/22/23 04:53 Blood Culture - Preliminary Blood Assessment and Plan Plan: 1patient was in the hospital mental status changes and weakness which is likely multifactorial patient did have some urinary symptoms and now with evidence of drug-resistant bacteria in the urine like responsible for some of her symptomatology 2-penicillin allergy that will limit the number of antibiotics safe to use 3-agree with switching antibiotic to cefepime 2 g every 8 hours however if the patient shows overall improvement will recommend oral Cipro on discharge We will follow on clinical condition and cultures to further adjust medication if needed Thank you for this consultation we will follow the patient along with you Dictation was produced using [employer] dictation software. please excuse any grammatical, word or spelling errors. Time with Patient: Greater than 30
[2023-11-25 06:17] LABS: Glucose,Whole Blood 193 mg/dL (70-110)
[2023-11-25] MEDS: INSULIN DETEMIR (LEVEMIR) 100 UNIT/ML SYR SQ SCH (08:50)
[2023-11-25] MEDS: amLODIPine 5 MG TAB PO SCH (08:50)
[2023-11-25 10:58] LABS: HCT 36.9 % (37.2-46.3); HGB 11.7 g/dL (12.0-15.0); MCH 27.7 pg (27.0-32.0); MCHC 31.7 g/dL (32.0-37.0); MCV 87.2 FL (80.0-97.0); Mean Platelet Volume 10.3 FL (9.5-12.2); NRBC Per 100 WBC 0 X 10*3/uL (0.00-0.01); Platelet Count 219 X 10*3/uL (140-440); RBC 4.23 X 10*6/uL (4.10-5.20); WBC 6.39 X 10*3/uL (4.50-10.00)
--- NOTE | 2023-11-25 11:39 | P.PN ---
Subjective Progress Note Date: 11/25/23 Hospital course: Patient is a very pleasant 83-year-old female with a past medical history of chronic atrial fibrillation, insulin-dependent diabetes mellitus, hypertension, and memory impairment. She presented to the emergency department overnight secondary to complaints of confusion, hallucinations and generalized weakness. She underwent full evaluation upon arrival. Vital signs show blood pressure 146/84, heart rate 97, respiratory rate 18, 97.5 F, and SpO2 of 96% on room air. Labs completed and reviewed. CBC unremarkable. BMP showing pseudohyponatremia with sodium of 132 and elevated glucose of 412 with corrected glucose of 137. Lactic acid was elevated at 3.4. Urinalysis was contaminated but positive for protein, glucose, blood, nitrites, and greater than [address] brain was negative for acute intracranial process showing age-related cerebral atrophy and moderately advanced chronic small vessel ischemic changes redemonstrated. EKG was completed showing atrial fibrillation with a controlled ventricular rate of 95 bpm. Patient was started on IV antibiotics and admitted under services at this time. Patient was noted to have episodes of visual hallucinations and confusion concerning for delirium secondary to infection. Urine culture resulting positive for Citrobacter freundii which was resistant to Rocephin initially being given for acute cystitis. Rocephin discontinued and patient placed on cefepime per culture and sensitivity report. Consult was placed to infectious disease. Physical exam: Patient remains alert and oriented at this time, RN denies patient having any noted episodes of hallucinations reported overnight are noted this morning. Patient seems much more awake than yesterday. General: Nontoxic, no distress and appears stated age. Derm: Skin warm and dry, normal coloration for ethnicity. Head: Atraumatic, normocephalic and symmetric. Eyes: EOMs intact, no lid lag, and anicteric sclera Mouth: no lip lesions, mucus membranes moist Cardiovascular: Irregularly irregular positive posterior tibial pulses bilat erally, and cap refill < 2 seconds. Lungs: Respirations even, regular, and unlabored on room air. Lungs CTA bilaterally, no rhonchi, no rales, no wheezing, and no accessory muscle usage. Abdominal: soft, nontender to palpation, no guarding, no appreciable organomegaly Ext: ROM intact. No gross muscle atrophy, no edema, no contractures Neuro: Speech clear, face symmetrical and CN II-XII grossly intact with no noted focal neuro deficits Psych: Alert and oriented to person, place, time, and situation. Appropriate and pleasant affect. Assessment and Plan of Care: Citrobacter freundii UTI Acute metabolic encephalopathy with delirium, patient with reports of visual and auditory hallucinations believed to be resulting from infectious process secondary to UTI. Improving -Blood cultures showing no growth to date. -Urine culture positive for Citrobacter freundii -Rocephin discontinued and patient started on cefepime 2 g every 8 hours. -Continue Tylenol 650 mg every 6 hours as needed for fever/mild pain -Patient received IV fluid hydration, tolerating oral intake well and IV fluids were discontinued. -Continue bladder scans to monitor for postvoid residuals. -Continue neurochecks every 4 hours secondary to reports of visual and auditory hallucinations -Provide safe and supportive care with redirection/reorientation as needed. -TSH normal findings at 1.670. Diabetes mellitus with hyperglycemia -Continue glycemic protocol with NovoLog sliding scale and Levemir 10 units daily. -Hemoglobin A1c 9.8% Lactic acidosis, resolved Hypomagnesemia, resolved. Chronic atrial fibrillation -Continue medication regimen with Eliquis 5 mg twice daily and Cardizem 180 mg daily. Hypothyroidism Continue daily medication regimen with levothyroxine 12.5 mcg daily. TSH normal findings at 1.670. COPD, not in acute exacerbation. -Continue Symbicort 2 puffs twice daily and DuoNebs as needed for wheezing and/or shortness of breath. Data and imaging reviewed: Morning labs were drawn and documented as received by lab, continue to await results. Will follow-up once they are available. Urine culture positive for Citrobacter freundii. -Blood culture showing no growth to date. Vital signs reviewed and stable. Blood pressure 151/92, heart rate 98, respiratory rate 19, temp 97.5 F, SpO2 96% CODE STATUS: Full code DVT prophylaxis: Eliquis Anticipated discharge date: Likely in the next 24 to [address]: Pending evaluation by PT/OT, family requesting rehab Patient was seen independently by Nurse Pracitioner. This document was prepared using [employer] dictation software. Please allow for errors in outdoor emergency care technician, while rare they do occur. I reviewed the documentation as provided by the MANJINDER above, who is the original author of this note. I agree with the documented assessment and plan, with the following changes: none Objective - Vital Signs Vital signs: Vital Signs Temp 97.5 F L 11/25/23 07:00 Pulse 98 11/25/23 07:00 Resp 19 11/25/23 07:00 BP 151/92 11/25/23 07:00 Pulse Ox 96 11/25/23 07:00 FiO2 Intake & Output 11/24/23 11/25/23 11/25/23 18:59 06:59 18:59 Intake Total 699 Output Total 700 1200 Balance -1 -1200 Weight 90.718 kg Intake: Oral 699 Output: Urine 700 1200 Other: Voiding Method External Catheter External Catheter # Voids 2 # Bowel Movements 1 - Labs CBC & Chem 7: 11/25/23 07:30 11/23/23 05:47 Labs: Abnormal Lab Results - Last 24 Hours (Table) 11/24/23 11/24/23 11/24/23 Range/Units 12:00 17:21 19:33 POC Glucose (mg/dL) 255 H 260 H 210 H (70-110) mg/dL 11/25/23 Range/Units 06:13 POC Glucose (mg/dL) 193 H (70-110) mg/dL Microbiology - Last 24 Hours (Table) 11/22/23 04:53 Blood Culture - Preliminary Blood 11/22/23 01:50 Urine Culture - Final Urine,Voided Citrobacter freundii
[2023-11-25 12:12] LABS: Glucose,Whole Blood 307 mg/dL (70-110)
[2023-11-25 12:37] LABS: Magnesium 1.6 mg/dL (1.5-2.4)
[2023-11-25 12:42] LABS: ALT 12 U/L (8-44); AST 17 U/L (13-35); Albumin 3.5 g/dL (3.8-4.9); Albumin/Globulin Ratio 1.52 Ratio (1.60-3.17); Alkaline Phosphatase 86 U/L (41-126); BUN/Creat Ratio 10.29 Ratio (12.00-20.00); Blood Urea Nitrogen 7.2 mg/dL (9.0-27.0); Calcium 8.8 mg/dL (8.7-10.3); Carbon Dioxide 24.1 mmol/L (21.6-31.8); Chloride 102 mmol/L (96-109); Globulin 2.3 g/dL (1.6-3.3); Glucose 213 mg/dL (70-110); Potassium 3.9 mmol/L (3.5-5.5); Sodium 139 mmol/L (135-145); Total Bilirubin 0.8 mg/dL (0.3-1.2); Total Protein 5.8 g/dL (6.2-8.2)
--- NOTE | 2023-11-25 13:32 | P.PN ---
Subjective Progress Note Date: 11/25/23 Principal diagnosis: Reason for follow-up is drug-resistant UTI Patient is a 83-year-old female with a past medical history significant for diabetes mellitus hypertension atrial fibrillation memory impairment presenting to the hospital for evaluation of weakness and mental status changes did have a positive UA some urinary symptoms concerning for symptomatic UTI urine culture subsequently came back positive with the drug- resistant Citrobacter. On today's evaluation that is 11/25/2023, the patient is afebrile, patient is on room air, the patient denies chest pain shortness of breath or cough, patient denies nausea no vomiting no abdominal pain and no diarrhea, mentioned feeling slightly better today. Patient did have a white count of 6.39, creatinine 0.7 Objective - Vital Signs Vital signs: Vital Signs Temp 97.5 F L 11/25/23 07:00 Pulse 98 11/25/23 08:00 Resp 19 11/25/23 08:00 BP 151/92 11/25/23 07:00 Pulse Ox 96 11/25/23 07:00 FiO2 Intake & Output 11/24/23 11/25/23 11/25/23 18:59 06:59 18:59 Intake Total 699 118 Output Total 700 1200 800 Balance -1 -1200 -682 Weight 90.718 kg Intake: Oral 699 118 Output: Urine 700 1200 800 Other: Voiding Method External Catheter External Catheter External Catheter # Voids 2 # Bowel Movements 1 - Exam GENERAL DESCRIPTION: An elderly female lying in bed in no distress RESPIRATORY SYSTEM: Unlabored breathing , decreased breath sounds at bases HEART: S1 S2 regular rate and rhythm , ABDOMEN: Soft , no tenderness EXTREMITIES: No edema feet - Labs CBC & Chem 7: 11/25/23 07:30 11/25/23 07:30 Labs: Abnormal Lab Results - Last 24 Hours (Table) 11/24/23 11/24/23 11/25/23 Range/Units 17:21 19:33 06:13 Hgb (12.0-15.0) g/dL Hct (37.2-46.3) % MCHC (32.0-37.0) g/dL Anion Gap (4.00-12.00) mmol/L BUN (9.0-27.0) mg/dL BUN/Creatinine Ratio (12.00-20.00) Ratio Glucose (70-110) mg/dL POC Glucose (mg/dL) 260 H 210 H 193 H (70-110) mg/dL Total Protein (6.2-8.2) g/dL Albumin (3.8-4.9) g/dL Albumin/Globulin Ratio (1.60-3.17) Ratio 11/25/23 11/25/23 11/25/23 Range/Units 07:30 07:30 12:10 Hgb 11.7 L (12.0-15.0) g/dL Hct 36.9 L (37.2-46.3) % MCHC 31.7 L (32.0-37.0) g/dL Anion Gap 12.90 H (4.00-12.00) mmol/L BUN 7.2 L (9.0-27.0) mg/dL BUN/Creatinine Ratio 10.29 L (12.00-20.00) Ratio Glucose 213 H (70-110) mg/dL POC Glucose (mg/dL) 307 H (70-110) mg/dL Total Protein 5.8 L (6.2-8.2) g/dL Albumin 3.5 L (3.8-4.9) g/dL Albumin/Globulin Ratio 1.52 L (1.60-3.17) Ratio Microbiology - Last 24 Hours (Table) 11/22/23 04:53 Blood Culture - Preliminary Blood 11/22/23 01:50 Urine Culture - Final Urine,Voided Citrobacter freundii Assessment and Plan (1) Penicillin allergy Current Visit: Yes Status: Acute Code(s): Z88.0 - ALLERGY STATUS TO PENICILLIN SNOMED Code(s): 46762054 (2) UTI (urinary tract infection) Current Visit: No Status: Acute Code(s): N39.0 - URINARY TRACT INFECTION, SITE NOT SPECIFIED SNOMED Code(s): 35159865 Plan: 1patient was in the hospital mental status changes and weakness which is likely multifactorial patient did have some urinary symptoms and now with evidence of drug-resistant bacteria in the urine like responsible for some of her symptomatology 2-penicillin allergy that will limit the number of antibiotics safe to use 3-patient to continue cefepime 2 g every 8 hours while inpatient and monitor clinical course closely Dictation was produced using [employer] software. please excuse any grammatical, word or spelling errors. Time with Patient: Less than 30
[2023-11-25 17:19] LABS: Glucose,Whole Blood 282 mg/dL (70-110)
[2023-11-25 21:13] LABS: Glucose,Whole Blood 236 mg/dL (70-110)
[2023-11-26 05:39] LABS: Glucose,Whole Blood 222 mg/dL (70-110)
[2023-11-26 09:36] LABS: Glucose,Whole Blood 186 mg/dL (70-110)
--- NOTE | 2023-11-26 11:06 | P.CNNES ---
History of Present Illness Consult date: 11/26/23 Requesting physician: Hayden Isaac Reason for Consult: reportedly found confused twitching making huffing/puffing noises R/O seizu History of Present Illness: Patient is a 83-year-old female came to the hospital by ambulance on 11/21/2023 for increased confusion. As per EMS flowsheet, it was reported patient slid out of chair, did not hit her head and was not in any pain. Patient's daughter has mentioned that patient has been more confused in the past week. She has increased urination, her blood glucose was 545. Patient's lungs were clear. Patient started on IV fluids. Her vitals at the scene was blood pressure 127/71, pulse rate 81 respirations 16, saturation 98% and blood sugar 545. Patient was diagnosed with UTI, started on cefepime. Patient at baseline is alert and oriented x 3. Patient developed altered mental status apparently yesterday. According to nursing reports, she was confused, not speaking much yesterday evening. As per nursing documentation, at 1 AM, patient was not able to tell her name, or answer any questions. This was also continued at 5 AM neurochecks. Patient was noted to have some myoclonic jerks, puffing her cheeks. I was informed about the patient at 9:31 AM for acute altered mental status. Stat CT head was performed, which on my review does not reveal any abnormalities as mentioned below. CTA of the head and neck was also done, report pending. Patient's hemoglobin A1c 9.8. Lipid panel with cholesterol 160, LDL 86, HDL 42, triglycerides 154. TSH is normal. UA was positive for nitrites and large amount of leukocyte esterase, more than 182 WBCs with moderate WBC clumps. Occasional bacteria. Cultures revealed Citrobacter freundii. Patient's most recent CBC as of yesterday was normal WBC count 6.39 hemoglobin 11.7 platelets are 219. Electrolytes are normal, BUN 7.2, creatinine is normal. Hepatic panel is normal. CT head on my review revealed old lacunar in the right basal ganglia. Mild basal ganglionic calcification. Some small vessel disease. No acute process. Major blood vessels appears intact. Patient takes Eliquis 5 mg twice daily, Lipitor 40 mg, also on cefepime 2 g every 8 hours. Review of Systems ROS unobtainable: due to mental status Past Medical History Past Medical History: Atrial Fibrillation, Diabetes Mellitus, Hypertension, Memory Impairment Additional Past Medical History / Comment(s): patient poor historian History of Any Multi-Drug Resistant Organisms: VRE Date of last positivie culture/infection: 11/01/23 MDRO Source:: Urine Past Surgical History: Appendectomy Additional Past Surgical History / Comment(s): patient poor historian Past Anesthesia/Blood Transfusion Reactions: No Reported Reaction Smoking Status: Unknown if ever smoked Medications and Allergies Home Medications Medication Instructions Recorded Confirmed Type Acetaminophen [Tylenol 8 Hour] 1,300 mg PO HS 08/25/23 11/22/23 History Acetaminophen [Tylenol Arthritis] 650 mg PO AC-BRKFST 08/25/23 11/22/23 History Apixaban [Eliquis] 5 mg PO AC-BID 08/25/23 11/22/23 History Atorvastatin [Lipitor] 40 mg PO AC-BRKFST 08/25/23 11/22/23 History Calcium Carbonate [Calcium] 600 mg PO HS 08/25/23 11/22/23 History Diclofenac Sodium Gel [Voltaren 1% 1 applic TOPICAL QID PRN 08/25/23 11/22/23 History Gel] Dulaglutide [Trulicity] 0.75 mg SQ WE 08/25/23 11/22/23 History Escitalopram [Lexapro] 20 mg PO DAILY 08/25/23 11/22/23 History Ferrous Sulfate [Iron (65 MG 325 mg PO HS 08/25/23 11/22/23 History Elemental)] Insulin Glargine-Yfgn [Semglee 10 units SQ HS 08/25/23 11/22/23 History (Yfgn) Pen] Ipratropium-Albuterol Nebulize 3 ml INHALATION RT-QID PRN 08/25/23 11/22/23 History [Duoneb 0.5 mg-3 mg/3 ml Soln] Levothyroxine Sodium [Synthroid] 12.5 mcg PO AC-BRKFST 08/25/23 11/22/23 History Loperamide HCl [Imodium A-D] 2 mg PO QID PRN 08/25/23 11/22/23 History Loratadine 10 mg PO HS 08/25/23 11/22/23 History Montelukast [Singulair] 10 mg PO HS 08/25/23 11/22/23 History Sproul-3/Dha/Epa/Fish Oil [Fish Oil 1 cap PO HS 08/25/23 11/22/23 History 1,000 mg Softgel] Pantoprazole [Protonix] 40 mg PO AC-BRKFST 08/25/23 11/22/23 History Potassium Gluconate 99 mg PO HS 08/25/23 11/22/23 History Prevagen 1 tab PO BID 08/25/23 11/22/23 History Super B Complex 1 tab PO HS 08/25/23 11/22/23 History Tiotropium 2.5 Mcg/Puff [Spiriva 1 puff INHALATION RT-DAILY PRN 08/25/23 11/22/23 History Respimat 2.5 Mcg] dilTIAZem HCL [dilTIAZem HCL 24Hr 180 mg PO AC-BRKFST 08/25/23 11/22/23 History ER (Xr)] Gabapentin [Neurontin] 300 mg PO TID 3 Days #9 cap 09/22/23 11/22/23 Rx Budesonide-Formot 160-4.5 Mcg 2 puff INHALATION RT-BID #1 each 10/28/23 11/22/23 Rx [Symbicort 160-4.5 Mcg Inhaler] Losartan [Cozaar] 50 mg PO DAILY #30 tab 10/28/23 11/22/23 Rx Acetaminophen Tab [Tylenol] 650 mg PO Q6HR PRN tab 11/04/23 11/22/23 Rx Ipratropium-Albuterol Nebulize 3 ml INHALATION RT-QID #100 each 11/04/23 11/22/23 Rx [Duoneb 0.5 mg-3 mg/3 ml Soln] predniSONE See Taper PO DIRECTED 11/22/23 11/22/23 History Allergies Allergy/AdvReac Type Severity Reaction Status Date / Time Penicillins Allergy Rash/Hives Verified 11/22/23 09:47 Physical Examination - Vital Signs Vital Signs: Vital Signs Temp Pulse Resp BP BP Pulse Ox 11/26/23 07:00 98.3 F 108 H 16 172/93 94 L 11/26/23 02:25 166/80 11/26/23 01:39 98.3 F 104 H 16 180/84 94 L 11/25/23 21:49 106 H 11/25/23 19:29 98.4 F 106 H 16 154/76 95 11/25/23 14:45 97.7 F 76 19 121/63 94 L 11/25/23 14:00 98 19 Intake and Output 11/25/23 11/26/23 11/26/23 22:59 06:59 14:59 Other: Voiding Method External Catheter # Voids 1 # Bowel Movements 1 Patient is an elderly female, who is laying in the bed, in no obvious respiratory distress. Patient appears very pleasant, smiles. Patient is alert awake, but mute. Patient not able to tell me her name, or name any objects. She is having myoclonic twitches, repetitive every few seconds mainly involving her facial region, and abdominal region. Not involving the extremities. Speech and language functions cannot be assessed. On asking how she was, patient said "okay". She may say "aanhaan" at times. On checking knee reflexes, patient was feeling pain and did express with feeling pain. Her concentration and fund of knowledge is cannot be assessed. Patient is making eye contact, tracking with her eyes. However she is not speaking. On cranial nerve examination, pupils are equal, round and reacting to light. Patient blinking to visual threat bilaterally. Her extraocular muscles are intact. Face is symmetric, would not protrude out her tongue. Lower cranial nerves cannot be checked. On muscle strength testing, there is no pronator drift. Patient is moving her arms spontaneously to touch her mouth spontaneously. Patient has significant myoclonic jerks of outstretched hands occurring intermittently in spurts. Patient is not squeezing hands. She does move her legs to painful stimuli equally. Deep tendon reflexes are symmetric 1 in the arms at biceps and brachioradialis, 2 at the knees and ankles bilaterally. Plantars are withdrawal. Sensory to touch could not be assessed, but she responds equally to noxious stimuli. Cerebellar function cannot be tested. Tone is mildly increased and bulk of muscles normal. Gait deferred.. On general examination, there is no carotid bruit or murmur, S1-S2 audible. Chest is clear on consultation. Abdomen is soft nontender. No organomegaly, bowel sounds present. Peripheral pulses are present. No peripheral edema. Results - Laboratory Findings CBC and BMP: 11/27/23 08:17 11/27/23 08:17 Abnormal Lab Findings: Abnormal Labs 11/21/23 11/21/23 11/21/23 22:59 22:59 22:59 RBC Hgb Hct MCHC APTT 21.5 L Sodium 132 L Carbon Dioxide 21 L Anion Gap BUN BUN/Creatinine Ratio Glucose 412 H POC Glucose (mg/dL) Hemoglobin A1c Plasma Lactic Acid Victor Hugo 3.4 H* Calcium Magnesium Total Protein 5.9 L Albumin 3.3 L Albumin/Globulin Ratio Urine Appearance Urine Protein Urine Glucose (UA) Urine Blood Urine Nitrite Ur Leukocyte Esterase Urine RBC Urine WBC Urine WBC Clumps Ur Squamous Epith Cells Urine Bacteria Hyaline Casts 11/22/23 11/22/23 11/22/23 01:50 01:56 05:31 RBC Hgb Hct MCHC APTT Sodium Carbon Dioxide Anion Gap BUN BUN/Creatinine Ratio Glucose POC Glucose (mg/dL) Hemoglobin A1c Plasma Lactic Acid Victor Hugo 2.7 H* 2.4 H* Calcium Magnesium Total Protein Albumin Albumin/Globulin Ratio Urine Appearance Cloudy H Urine Protein Trace H Urine Glucose (UA) 4+ H Urine Blood Trace H Urine Nitrite Positive H Ur Leukocyte Esterase Large H Urine RBC 7 H Urine WBC >182 H Urine WBC Clumps Moderate H Ur Squamous Epith Cells 18 H Urine Bacteria Occasional H Hyaline Casts 3 H 11/22/23 11/22/23 11/22/23 06:02 07:56 08:09 RBC Hgb Hct MCHC APTT Sodium Carbon Dioxide Anion Gap BUN BUN/Creatinine Ratio Glucose POC Glucose (mg/dL) 365 H 301 H Hemoglobin A1c Plasma Lactic Acid Victor Hugo 2.3 H* Calcium Magnesium Total Protein Albumin Albumin/Globulin Ratio Urine Appearance Urine Protein Urine Glucose (UA) Urine Blood Urine Nitrite Ur Leukocyte Esterase Urine RBC Urine WBC Urine WBC Clumps Ur Squamous Epith Cells Urine Bacteria Hyaline Casts 11/22/23 11/22/23 11/22/23 10:19 10:55 10:55 RBC Hgb Hct MCHC APTT Sodium 136 L Carbon Dioxide 21 L Anion Gap BUN BUN/Creatinine Ratio Glucose 327 H POC Glucose (mg/dL) 323 H Hemoglobin A1c Plasma Lactic Acid Victor Hugo 3.0 H* Calcium Magnesium 1.5 L Total Protein 5.7 L Albumin 3.1 L Albumin/Globulin Ratio Urine Appearance Urine Protein Urine Glucose (UA) Urine Blood Urine Nitrite Ur Leukocyte Esterase Urine RBC Urine WBC Urine WBC Clumps Ur Squamous Epith Cells Urine Bacteria Hyaline Casts 11/22/23 11/22/23 11/22/23 12:04 17:07 21:24 RBC Hgb Hct MCHC APTT Sodium Carbon Dioxide Anion Gap BUN BUN/Creatinine Ratio Glucose POC Glucose (mg/dL) 295 H 146 H 259 H Hemoglobin A1c Plasma Lactic Acid Victor Hugo Calcium Magnesium Total Protein Albumin Albumin/Globulin Ratio Urine Appearance Urine Protein Urine Glucose (UA) Urine Blood Urine Nitrite Ur Leukocyte Esterase Urine RBC Urine WBC Urine WBC Clumps Ur Squamous Epith Cells Urine Bacteria Hyaline Casts 11/23/23 11/23/23 11/23/23 05:47 05:47 05:47 RBC 3.95 L Hgb 11.2 L Hct 35.0 L MCHC APTT Sodium Carbon Dioxide Anion Gap BUN 4.3 L BUN/Creatinine Ratio 7.17 L Glucose 192 H POC Glucose (mg/dL) Hemoglobin A1c 9.8 H Plasma Lactic Acid Victor Hugo Calcium 8.2 L Magnesium Total Protein 5.1 L Albumin 3.1 L Albumin/Globulin Ratio 1.55 L Urine Appearance Urine Protein Urine Glucose (UA) Urine Blood Urine Nitrite Ur Leukocyte Esterase Urine RBC Urine WBC Urine WBC Clumps Ur Squamous Epith Cells Urine Bacteria Hyaline Casts 11/23/23 11/23/23 11/23/23 06:23 12:42 17:46 RBC Hgb Hct MCHC APTT Sodium Carbon Dioxide Anion Gap BUN BUN/Creatinine Ratio Glucose POC Glucose (mg/dL) 180 H 367 H 174 H Hemoglobin A1c Plasma Lactic Acid Victor Hugo Calcium Magnesium Total Protein Albumin Albumin/Globulin Ratio Urine Appearance Urine Protein Urine Glucose (UA) Urine Blood Urine Nitrite Ur Leukocyte Esterase Urine RBC Urine WBC Urine WBC Clumps Ur Squamous Epith Cells Urine Bacteria Hyaline Casts 11/23/23 11/24/23 11/24/23 20:19 06:28 12:00 RBC Hgb Hct MCHC APTT Sodium Carbon Dioxide Anion Gap BUN BUN/Creatinine Ratio Glucose POC Glucose (mg/dL) 253 H 205 H 255 H Hemoglobin A1c Plasma Lactic Acid Victor Hugo Calcium Magnesium Total Protein Albumin Albumin/Globulin Ratio Urine Appearance Urine Protein Urine Glucose (UA) Urine Blood Urine Nitrite Ur Leukocyte Esterase Urine RBC Urine WBC Urine WBC Clumps Ur Squamous Epith Cells Urine Bacteria Hyaline Casts 11/24/23 11/24/23 11/25/23 17:21 19:33 06:13 RBC Hgb Hct MCHC APTT Sodium Carbon Dioxide Anion Gap BUN BUN/Creatinine Ratio Glucose POC Glucose (mg/dL) 260 H 210 H 193 H Hemoglobin A1c Plasma Lactic Acid Victor Hugo Calcium Magnesium Total Protein Albumin Albumin/Globulin Ratio Urine Appearance Urine Protein Urine Glucose (UA) Urine Blood Urine Nitrite Ur Leukocyte Esterase Urine RBC Urine WBC Urine WBC Clumps Ur Squamous Epith Cells Urine Bacteria Hyaline Casts 11/25/23 11/25/23 11/25/23 07:30 07:30 12:10 RBC Hgb 11.7 L Hct 36.9 L MCHC 31.7 L APTT Sodium Carbon Dioxide Anion Gap 12.90 H BUN 7.2 L BUN/Creatinine Ratio 10.29 L Glucose 213 H POC Glucose (mg/dL) 307 H Hemoglobin A1c Plasma Lactic Acid Victor Hugo Calcium Magnesium Total Protein 5.8 L Albumin 3.5 L Albumin/Globulin Ratio 1.52 L Urine Appearance Urine Protein Urine Glucose (UA) Urine Blood Urine Nitrite Ur Leukocyte Esterase Urine RBC Urine WBC Urine WBC Clumps Ur Squamous Epith Cells Urine Bacteria Hyaline Casts 11/25/23 11/25/23 11/26/23 17:18 21:12 05:37 RBC Hgb Hct MCHC APTT Sodium Carbon Dioxide Anion Gap BUN BUN/Creatinine Ratio Glucose POC Glucose (mg/dL) 282 H 236 H 222 H Hemoglobin A1c Plasma Lactic Acid Victor Hugo Calcium Magnesium Total Protein Albumin Albumin/Globulin Ratio Urine Appearance Urine Protein Urine Glucose (UA) Urine Blood Urine Nitrite Ur Leukocyte Esterase Urine RBC Urine WBC Urine WBC Clumps Ur Squamous Epith Cells Urine Bacteria Hyaline Casts 11/26/23 09:34 RBC Hgb Hct MCHC APTT Sodium Carbon Dioxide Anion Gap BUN BUN/Creatinine Ratio Glucose POC Glucose (mg/dL) 186 H Hemoglobin A1c Plasma Lactic Acid Victor Hugo Calcium Magnesium Total Protein Albumin Albumin/Globulin Ratio Urine Appearance Urine Protein Urine Glucose (UA) Urine Blood Urine Nitrite Ur Leukocyte Esterase Urine RBC Urine WBC Urine WBC Clumps Ur Squamous Epith Cells Urine Bacteria Hyaline Casts Assessment and Plan Assessment: * Altered mental status, likely due to toxic metabolic encephalopathy. Patient has developed acute muteness, with myoclonic twitches. Suspect toxic metabolic, but cannot rule out status. * Acute Citrobacter UTI, on cefepime * Atrial fibrillation, currently on Eliquis * Hypertension * Diabetes Plan: * Stat CT head was performed, which on my review does not show any acute process. * CTA of head and neck is completed, results pending. Patient not a candidate for tPA, as she was on Eliquis and last known well was yesterday. * Stat EEG evaluate for encephalopathy, rule out partial status. * Hemoglobin A1c 9.8. Recommend optimize control of diabetes to target A1c < 7.0. * Lipid panel with cholesterol 160, LDL 86, HDL 42, triglycerides 154. Continue Lipitor 40 mg daily. TSH is normal. * Neurology will follow. Will try to obtain collateral history from patient's family. * Thank you for the consult. Addendum: * CTA of head and neck revealed severe proximal right ICA stenosis. Patient started on aspirin 81 mg daily. Patient also on Eliquis 5 mg twice a day. * Check carotid Doppler. * Consult vascular surgery. * EEG was performed, which was abnormal due to presence of diffuse bilaterally symmetric high amplitude frontally maximal sharp-appearing waves seen at 2-3 Hz, suggestive of underlying cortical irritability and tendency for seizures. Intermittent myoclonic jerks weren't noticed with presence of high amplitude myogenic activity lasting for about 1-2 seconds. After the Ativan 1 mg IV push was given, this high amplitude sharp-appearing waves dissipated along with myoclonic twitches. Otherwise the background was diffusely slow, suggestive of severe encephalopathy. Overall, this EEG may suggest myoclonic status, which was aborted with 1 mg Ativan. Clinical correlation and follow- up EEG recommended. * Patient given Keppra 1500 mg loading dose, and will be maintained on 1000 mg twice a day. * Repeat EEG in the morning. * Discussed with primary team in detail. Time with Patient: Greater than 30
--- NOTE | 2023-11-26 11:15 | CT ---
EXAMINATION TYPE: CT brain wo con DATE OF EXAM: 11/26/2023 COMPARISON: 11/21/2023. HISTORY: Mental status changes CT DLP: 1189 mGycm Automated exposure control for dose reduction was used. FINDINGS: The ventricles, basal cisterns and sulci of the convexities are moderately enlarged consistent with m ild to moderate age-appropriate atrophy. There is moderate to marked decreased density in the periventricular white matter consistent with chr onic ischemic white matter demyelination. There is a small remote lacunar infarcts in the right internal capsule and left basal ganglia. There is no acute bleed or mass effect The posterior fossa is grossly normal. The intraorbital contents appear normal and symmetric. There are mild chronic inflammatory changes in the left maxillary sinus and ethmoid air cells. The ma stoid air cells are well aerated. IMPRESSION: Age-appropriate senescent changes. No acute bleed or mass effect. Remote lacunar infarcts as describe d above.
--- NOTE | 2023-11-26 11:26 | CT ---
EXAMINATION TYPE: CODE STROKE: CTA head neck DATE OF EXAM: 11/26/2023 HISTORY: Mental status changes COMPARISON: None CT DLP: 378 mGycm. Automated Exposure Control for Dose Reduction was Utilized. TECHNIQUE: CTA scan of the head and neck is performed without and with IV Contrast, patient injected with 65 ml mL of Isovue 370, axial images are obtained, coronal and sagittal reformatted images are reviewed. 3D reconstructed images are created on an independent workstation and reviewed. FINDINGS: FINDINGS: The brachiocephalic origins are widely patent and no significant stenosis. There is a severe stenosis secondary to extensive calcified plaque in the proximal right internal car otid artery within the neck. There is no significant stenosis of the left common or internal carotid artery within the neck. There is no stenosis of the vertebral arteries. Intracranially, there is no stenosis, segmental occlusion, sizable aneurysm sac or vascular malformat ion. IMPRESSION:. Severe proximal right internal carotid artery stenosis. NASCET criteria was used in interpretation of this exam?
[2023-11-26] MEDS: LORazepam 2 MG/ML INJ IV STA (11:55)
[2023-11-26 12:18] LABS: Glucose,Whole Blood 199 mg/dL (70-110)
--- NOTE | 2023-11-26 13:21 | P.PN ---
Subjective Progress Note Date: 11/26/23 Principal diagnosis: Reason for follow-up is drug-resistant UTI Patient is a 83-year-old female with a past medical history significant for diabetes mellitus hypertension atrial fibrillation memory impairment presenting to the hospital for evaluation of weakness and mental status changes did have a positive UA some urinary symptoms concerning for symptomatic UTI urine culture subsequently came back positive with the drug- resistant Citrobacter. On today's evaluation that is 11/26/2023, the patient is afebrile currently on room air patient did have significant change in her mentation she is awake but nonverbal and blowing some bubbles no vomiting or diarrhea has been reported by the nursing staff patient did not answer any question. No new labs has been obtained today blood cultures so far negative Objective - Vital Signs Vital signs: Vital Signs Temp 98.3 F 11/26/23 07:00 Pulse 108 H 11/26/23 07:00 Resp 16 11/26/23 07:00 BP 172/93 11/26/23 07:00 Pulse Ox 94 L 11/26/23 07:00 FiO2 Intake & Output 11/25/23 11/26/23 11/26/23 18:59 06:59 18:59 Intake Total 236 Output Total 900 Balance -664 Intake: Oral 236 Output: Urine 900 Other: Voiding Method External Catheter External Catheter # Voids 1 # Bowel Movements 1 - Exam GENERAL DESCRIPTION: An elderly female lying in bed in no distress RESPIRATORY SYSTEM: Unlabored breathing , decreased breath sounds at bases HEART: S1 S2 regular rate and rhythm , ABDOMEN: Soft , no tenderness EXTREMITIES: No edema feet - Labs CBC & Chem 7: 11/25/23 07:30 11/25/23 07:30 Labs: Abnormal Lab Results - Last 24 Hours (Table) 11/25/23 11/25/23 11/25/23 Range/Units 07:30 12:10 17:18 Anion Gap 12.90 H (4.00-12.00) mmol/L BUN 7.2 L (9.0-27.0) mg/dL BUN/Creatinine Ratio 10.29 L (12.00-20.00) Ratio Glucose 213 H (70-110) mg/dL POC Glucose (mg/dL) 307 H 282 H (70-110) mg/dL Total Protein 5.8 L (6.2-8.2) g/dL Albumin 3.5 L (3.8-4.9) g/dL Albumin/Globulin Ratio 1.52 L (1.60-3.17) Ratio 11/25/23 11/26/23 11/26/23 Range/Units 21:12 05:37 09:34 Anion Gap (4.00-12.00) mmol/L BUN (9.0-27.0) mg/dL BUN/Creatinine Ratio (12.00-20.00) Ratio Glucose (70-110) mg/dL POC Glucose (mg/dL) 236 H 222 H 186 H (70-110) mg/dL Total Protein (6.2-8.2) g/dL Albumin (3.8-4.9) g/dL Albumin/Globulin Ratio (1.60-3.17) Ratio Microbiology - Last 24 Hours (Table) 11/22/23 04:53 Blood Culture - Preliminary Blood Assessment and Plan (1) Penicillin allergy Current Visit: Yes Status: Acute Code(s): Z88.0 - ALLERGY STATUS TO PENICILLIN SNOMED Code(s): 74313800 (2) UTI (urinary tract infection) Current Visit: No Status: Acute Code(s): N39.0 - URINARY TRACT INFECTION, SITE NOT SPECIFIED SNOMED Code(s): 42220445 Plan: 1patient was in the hospital mental status changes and weakness which is likely multifactorial patient did have some urinary symptoms and now with evidence of drug-resistant bacteria in the urine like responsible for some of her symptomatology 2-penicillin allergy that will limit the number of antibiotics safe to use 3-patient did have significant change in her mentation being monitored by neurology currently undergoing EEG, patient to continue cefepime 2 g every 8 hours will transition to oral Cipro once mentation and oral intake improve Dictation was produced using [employer] dictation software. please excuse any grammatical, word or spelling errors. Time with Patient: Less than 30
[2023-11-26] MEDS ORDERED: levETIRAcetam IV 1,000 MG in SODIUM CHLORIDE 0.9% 250 ML IVPB ONE (13:56)
--- NOTE | 2023-11-26 14:04 | P.PN ---
Subjective Progress Note Date: 11/26/23 Hospital course: Patient is a very pleasant 83-year-old female with a past medical history of chronic atrial fibrillation, insulin-dependent diabetes mellitus, hypertension, and memory impairment. She presented to the emergency department overnight secondary to complaints of confusion, hallucinations and generalized weakness. She underwent full evaluation upon arrival. Vital signs show blood pressure 146/84, heart rate 97, respiratory rate 18, 97.5 F, and SpO2 of 96% on room air. Labs completed and reviewed. CBC unremarkable. BMP showing pseudohyponatremia with sodium of 132 and elevated glucose of 412 with corrected glucose of 137. Lactic acid was elevated at 3.4. Urinalysis was contaminated but positive for protein, glucose, blood, nitrites, and greater than [address] brain was negative for acute intracranial process showing age-related cerebral atrophy and moderately advanced chronic small vessel ischemic changes redemonstrated. EKG was completed showing atrial fibrillation with a controlled ventricular rate of 95 bpm. Patient was started on IV antibiotics and admitted under services at this time. Patient was noted to have episodes of visual hallucinations and confusion concerning for delirium secondary to infection. Urine culture resulting positive for Citrobacter freundii which was resistant to Rocephin initially being given for acute cystitis. Rocephin discontinued and patient placed on cefepime per culture and sensitivity report. Consult was placed to infectious disease. Patient's mentation was improving and we were working [facility]. On the morning of 11/25/2023 received notification from RN at 9:20 AM that patient's mentation s ignificantly changed and was last known normal last night at [facility]. RN reports that around 1 AM pt was noted to be confused and unable to state her name. Immediately went to bedside to assess. Patient was found to have significant muscular tics/myoclonic jerking movements, puffing of cheeks and l ips and now nonverbal. Patient was able to smile and follow staff with her eyes around room and appeared to be moving all extremities independently but not following commands. Order placed for stat CT brain, CTA head and neck, blood glucose check and EEG. [id number] glucose at this time is 186. Called and notified neurologist of urgent consult and significant change in patient's mentation. Stroke code not called as pts last known normal was yesterday evening and patient is on anticoagulation with Eliquis. 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 CTA head and neck completed CTA head was negative for acute process showing no vertebral stenosis of the ventricle, segmental occlusion, sizable aneurysms, or reported vascular malformations. CTA neck revealed severe proximal right internal carotid artery stenosis. Started patient on aspirin 81 mg daily and increased atorvastatin to 80 mg daily. Consult placed to vascular surgery for evaluation. Received notification from neurologist, EEG was reported to be severely abnormal and per neurology request giving patient a loading dose of Keppra 1000 mg and starting patient on Keppra 500 mg twice daily. Order also placed for MRI brain without contrast. Patient being transferred to stepdown unit for closer monitoring. RN updated patient's daughter and guardian. Discussed with infectious disease, cefepime discontinued and patient started on Invanz. Physical exam: General: Nontoxic and appears stated age. Derm: Skin warm and dry, normal coloration for ethnicity. Head: Atraumatic, normocephalic and symmetric. Eyes: EOMs intact, no lid lag, and anicteric sclera. Pupils equal, round, and reactive to light. Mouth: no lip lesions, mucus membranes moist Cardiovascular: Irregularly irregular positive posterior tibial pulses bilaterally, and cap refill < 2 seconds. Lungs: Respirations even, regular, and unlabored on room air. Lungs CTA bilaterally, no rhonchi, no rales, no wheezing, and no accessory muscle usage. Abdominal: soft, nontender to palpation, no guarding, no appreciable organomegaly Ext: ROM intact. No gross muscle atrophy, no edema, no contractures Neuro/psych: Patient now nonverbal only making puffing movement and noises with lips and cheeks, noted myoclonic jerking, Assessment and Plan of Care: Severe metabolic encephalopathy, unclear etiology possible seizure activity vs CVA vs Cefepime induced neurotoxicity Citrobacter freundii UTI -Blood cultures showing no growth to date. -Urine culture positive for Citrobacter freundii -IV antibiotics changed to Invanz 1 g daily -Continue neurochecks every 4 hours, seizure precautions and fall precautions. -TSH normal findings at 1.670. -CT brain reported showing appropriate senescent changes negative for acute bleed or mass showing remote lacunar infarct in the right internal capsule and left basal ganglia. -CTA head was negative for acute process showing no vertebral stenosis of the ventricle, segmental occlusion, sizable aneurysms, or reported vascular malformations. -CTA neck revealed severe proximal right internal carotid artery stenosis. -Received notification from neurologist, EEG was reported to be severely abnormal and per neurology request giving patient a loading dose of Keppra 1000 mg IVPB and starting patient on Keppra 500 mg twice daily. -Order also placed for MRI brain without contrast. -Patient being transferred to stepdown unit for closer monitoring. Severe carotid artery stenosis -CTA neck reporting severe right internal carotid artery stenosis. -Patient is on Eliquis 5 mg twice daily and has been started patient on aspirin 81 mg daily and increased atorvastatin to 80 mg daily. -Consult placed to vascular surgery for evaluation. Diabetes mellitus with hyperglycemia -Glucose levels remain elevated will increase to 15 units daily as blood glucose levels ranged from 193-307 over the past 24 hours. Continue glycemic protocol with NovoLog sliding scale and Levemir 15 units daily. -Hemoglobin A1c 9.8% Lactic acidosis, resolved Hypomagnesemia, resolved. Chronic atrial fibrillation -Continue medication regimen with Eliquis 5 mg twice daily and Cardizem 180 mg daily. Hypothyroidism Continue daily medication regimen with levothyroxine 12.5 mcg daily. TSH normal findings at 1.670. COPD, not in acute exacerbation. -Continue Symbicort 2 puffs twice daily and DuoNebs as needed for wheezing and/or shortness of breath. Data and imaging reviewed: -CT brain reported showing appropriate senescent changes negative for acute bleed or mass showing remote lacunar infarct in the right internal capsule and left basal ganglia. -CTA head was negative for acute process showing no vertebral stenosis of the ventricle, segmental occlusion, sizable aneurysms, or reported vascular malformations. -CTA neck revealed severe proximal right internal carotid artery stenosis. -Blood glucose levels have ranged from 1 93-3 07 over the past 24 hours currently 186.. -Vital signs reviewed. Blood pressure hypertensive with BP 172/93, heart rate 108, respiratory rate 16, temp 98.3 F, and SpO2 of 94% on room air. CODE STATUS: Full code DVT prophylaxis: Eliquis Anticipated discharge date: Likely in the next 24 to [address]: Pending evaluation by PT/OT, family requesting rehab Patient was seen independently by Nurse Pracitioner. This document was prepared using [employer] dictation software. Please allow for e rrors in parts counter sales person, while rare they do occur. I reviewed the documentation as provided by the MANJINDER above, who is the original author of this note. I agree with the documented assessment and plan, with the following changes: none Objective - Vital Signs Vital signs: Vital Signs Temp 98.3 F 11/26/23 07:00 Pulse 108 H 11/26/23 07:00 Resp 16 11/26/23 07:00 BP 172/93 11/26/23 07:00 Pulse Ox 94 L 11/26/23 07:00 FiO2 Intake & Output 11/25/23 11/26/23 11/26/23 18:59 06:59 18:59 Intake Total 236 Output Total 900 Balance -664 Intake: Oral 236 Output: Urine 900 Other: Voiding Method External Catheter External Catheter # Voids 1 # Bowel Movements 1 - Labs CBC & Chem 7: 11/28/23 06:29 11/28/23 06:29 Labs: Abnormal Lab Results - Last 24 Hours (Table) 11/25/23 11/25/23 11/25/23 Range/Units 07:30 07:30 12:10 Hgb 11.7 L (12.0-15.0) g/dL Hct 36.9 L (37.2-46.3) % MCHC 31.7 L (32.0-37.0) g/dL Anion Gap 12.90 H (4.00-12.00) mmol/L BUN 7.2 L (9.0-27.0) mg/dL BUN/Creatinine Ratio 10.29 L (12.00-20.00) Ratio Glucose 213 H (70-110) mg/dL POC Glucose (mg/dL) 307 H (70-110) mg/dL Total Protein 5.8 L (6.2-8.2) g/dL Albumin 3.5 L (3.8-4.9) g/dL Albumin/Globulin Ratio 1.52 L (1.60-3.17) Ratio 11/25/23 11/25/23 11/26/23 Range/Units 17:18 21:12 05:37 Hgb (12.0-15.0) g/dL Hct (37.2-46.3) % MCHC (32.0-37.0) g/dL Anion Gap (4.00-12.00) mmol/L BUN (9.0-27.0) mg/dL BUN/Creatinine Ratio (12.00-20.00) Ratio Glucose (70-110) mg/dL POC Glucose (mg/dL) 282 H 236 H 222 H (70-110) mg/dL Total Protein (6.2-8.2) g/dL Albumin (3.8-4.9) g/dL Albumin/Globulin Ratio (1.60-3.17) Ratio Microbiology - Last 24 Hours (Table) 11/22/23 04:53 Blood Culture - Preliminary Blood
[2023-11-26] MEDS: levETIRAcetam IV 500 MG/5 ML VIAL IV ONE ×2 (14:49→15:58)
[2023-11-26] MEDS: ERTAPENEM 1 GM in SODIUM CHLORIDE 0.9% 50 ML IVPB SCH (15:58)
[2023-11-26 16:36] LABS: Glucose,Whole Blood 146 mg/dL (70-110)
[2023-11-26] MEDS: ASPIRIN 81 MG PO SCH (17:13)
[2023-11-26] MEDS: ATORVASTATIN 40 MG TAB PO STA (17:13)
--- NOTE | 2023-11-26 17:19 | US ---
EXAMINATION TYPE: US carotid duplex BILAT DATE OF EXAM: 11/26/2023 COMPARISON: NONE CLINICAL INDICATION: Female, 83 years old with history of Right ICA stenosis; RT ICA stenosis noted o n CTA same day TECHNIQUE: Carotid duplex ultrasound examination. Indirect Doppler criteria was utilized. FINDINGS: EXAM MEASUREMENTS: RIGHT: Peak Systolic Velocity (PSV) cm/sec ----- Right CCA: ----- Right ICA: ----- Right ECA: ICA/CCA ratio: RIGHT: End Diastole cm/sec ----- Right CCA: ----- Right ICA: ----- Right ECA: LEFT: Peak Systolic Velocity (PSV) cm/sec ----- Left CCA: ----- Left ICA: ----- Left ECA: ICA/CCA ratio: LEFT: End Diastole cm/sec ----- Left CCA: ----- Left ICA: ----- Left ECA: VERTEBRALS (direction of flow): Right Vertebral: Left Vertebral: Rhythm: RN BABY NOTES: Unable to complete exam due to patient cooperation. Patient began pulling away fro m the probe, putting chin down to block the probe, pushing the probe way, and putting her arms up. Patient was also humming throughout the exam making doppler evaluation impossible due to interference exam also limited due to deep course of vessels. Unable to get doppler information of the distal ICA to evaluate for stenosis due to exam limitations IMPRESSION: Nondiagnostic study. Criteria for Assigning % of Stenosis / Diameter reduction (Estimation based on the indirect measurements of the internal carotid artery velocities (ICA PSV). 1. Normal (no stenosis)=ICA PSV < 125 cm/s: ratio < 2.0: ICA EDV<40 cm/s. 2. Less than 50% stenosis=ICA PSV < 125 cm/s: ratio < 2.0: ICA EDV<40 cm/s. 3. 50 to 69% stenosis=ICA PSV of 125 to 230 cm/s: ration 2.0 ? 4.0: ICA EDV 40-100 cm/s. 4. Greater than 70% stenosis to near occlusion= ICA PSV > 230 cm/s: ratio > 4.0: ICA EDV > 100 cm/s. 5. Near occlusion= ICA PSV velocities may be low or undetectable: variable ratio and ICA EDV. 6. Total occlusion=unable to detect flow.
[2023-11-26 20:14] LABS: Glucose,Whole Blood 160 mg/dL (70-110)
[2023-11-26] MEDS: levETIRAcetam IV 500 MG/5 ML VIAL IVP SCH (21:29)
[2023-11-26] MEDS: levETIRAcetam 500 MG TAB PO SCH (22:30)
--- NOTE | 2023-11-27 01:22 | EEG ---
ELECTROENCEPHALOGRAM REPORT PREAMBLE: This is an 83-year-old female, with acute altered mental status, new onset aphasia and myoclonic jerks. This study is performed to evaluate for encephalopathy, rule out any epileptiform activity. EEG FINDINGS: This is a 21-channel digital EEG recorded with video component, utilizing 10/20 international system with referential and bipolar montages. The recording consists of presence of diffuse, frontally, maximal, bilaterally symmetric high amplitude sharp appearing waves seen frequently at about 2 to 3 Hz. Intermittent myoclonic jerks are noticed, with presence of high amplitude myogenic activity lasting for about 1 to 2 seconds. Otherwise, the background consists of diffuse dysrhythmic delta and some theta slowing, nonreactive to eye opening or closing. During middle of the study, Ativan 1 mg IV push was given, after which this myoclonic twitches completely resolved, as well as the high amplitude and sharp appearing waves gradually dissipated with residual background slowing. Different stages of sleep were not seen. Photic stimulation and hyperventilation were not done. IMPRESSION: Abnormal EEG due to presence of diffuse, bilaterally symmetric, high amplitude, frontally maximal sharp appearing waves seen at 2 to 3 Hz, suggestive of underlying cortical irritability and tendency for seizures. Intermittent myoclonic jerks were noticed with presence of high amplitude myogenic activity lasting for about 1-2 seconds. After the Ativan 1 mg IV push was given, this high amplitude sharp appearing waves dissipated along with myoclonic twitches. Otherwise, the background was diffusely slow, suggestive of severe encephalopathy. Overall, this EEG may suggest myoclonic status, which was aborted with 1 mg Ativan. Clinical correlation, and followup EEG recommended. MMBONNIE / BAON: [id number] / JIMENA
[2023-11-27] MEDS: levETIRAcetam IV 500 MG/5 ML VIAL IVP STA (01:53)
[2023-11-27] MEDS: ATORVASTATIN 80 MG TAB PO SCH (06:25)
[2023-11-27 06:27] LABS: Glucose,Whole Blood 168 mg/dL (70-110)
[2023-11-27] MEDS: INSULIN DETEMIR (LEVEMIR) 100 UNIT/ML SYR SQ SCH (06:34)
[2023-11-27 08:44] LABS: HGB 12.3 gm/dL (11.4-16.0); MCH 28.9 pg (25.0-35.0); MCHC 33.1 g/dL (31.0-37.0); MCV 87.3 fL (80.0-100.0); Mean Platelet Volume 8.5; Platelet Count 248 k/uL (150-450); RBC 4.24 m/uL (3.80-5.40); RDW 14.5 % (11.5-15.5); WBC 6.9 k/uL (3.8-10.6)
[2023-11-27 09:00] LABS: ALT 13 U/L (4-34); AST 23 U/L (14-36); African American GFR (CKD) >90 (>60 ml/min/1.73 sqM); Albumin 3.2 g/dL (3.5-5.0); Alkaline Phosphatase 87 U/L (38-126); Anion Gap 3 mmol/L; Blood Urea Nitrogen 9 mg/dL (7-17); Calcium 8.7 mg/dL (8.4-10.2); Carbon Dioxide 28 mmol/L (22-30); Chloride 107 mmol/L (98-107); Glucose 159 mg/dL (74-99); Magnesium 1.7 mg/dL (1.6-2.3); Non-African American GFR(CKD) 88 (>60 ml/min/1.73 sqM); Sodium 138 mmol/L (137-145); Total Bilirubin 1.1 mg/dL (0.2-1.3); Total Protein 5.9 g/dL (6.3-8.2)
[2023-11-27] MEDS: ASPIRIN 300 MG SUPP RECTAL SCH (11:37)
[2023-11-27 11:40] LABS: Glucose,Whole Blood 139 mg/dL (70-110)
--- NOTE | 2023-11-27 12:29 | CT ---
EXAMINATION TYPE: CT brain wo con DATE OF EXAM: 11/27/2023 COMPARISON: 11/26/2023 HISTORY: Worsening Mentation CT DLP: 1153.4 mGycm Automated exposure control for dose reduction was used. FINDINGS: The ventricles, basal cisterns and sulci over the convexities are moderately enlarged consistent with moderate generalized atrophy. There is marked decreased density in the periventricular white matter consistent with chronic ischemi c white matter demyelination. There is a remote lacunar infarct in the left basal ganglia. There is no mass effect or shift of the midline structures. There is no acute intra or extra-axial hemorrhage. The posterior fossa including the brainstem, fourth ventricle and cerebellopontine angles are grossly normal. The intraorbital contents appear normal symmetric there is minimal chronic inflammatory change in the ethmoid air cells and left maxillary sinus. The mastoid air cells are well aerated. The calvarium is intact. IMPRESSION: 1. Moderate age-appropriate atrophy. 2. Chronic ischemic white matter changes and small remote lacunar infarct left basal ganglia. 3. No acute bleed or mass effect. IMPRESSION:
--- NOTE | 2023-11-27 12:52 | P.PN ---
Subjective Progress Note Date: 11/27/23 Hospital course: Patient is a very pleasant 83-year-old female with a past medical history of chronic atrial fibrillation, insulin-dependent diabetes mellitus, hypertension, and memory impairment. She presented to the emergency department overnight secondary to complaints of confusion, hallucinations and generalized weakness. She underwent full evaluation upon arrival. Vital signs show blood pressure 146/84, heart rate 97, respiratory rate 18, 97.5 F, and SpO2 of 96% on room air. Labs completed and reviewed. CBC unremarkable. BMP showing pseudohyponatremia with sodium of 132 and elevated glucose of 412 with corrected glucose of 137. Lactic acid was elevated at 3.4. Urinalysis was contaminated but positive for protein, glucose, blood, nitrites, and greater than [address] brain was negative for acute intracranial process showing age-related cerebral atrophy and moderately advanced chronic small vessel ischemic changes redemonstrated. EKG was completed showing atrial fibrillation with a controlled ventricular rate of 95 bpm. Patient was started on IV antibiotics and admitted under services at this time. Patient was noted to have episodes of visual hallucinations and confusion concerning for delirium secondary to infection. Urine culture resulting positive for Citrobacter freundii which was resistant to Rocephin initially being given for acute cystitis. Rocephin discontinued and patient placed on cefepime per culture and sensitivity report. Consult was placed to infectious disease. Patient's mentation was improving and we were working towards discharging to care home facility. On the morning of 11/25/2023 received notification from RN at 9:20 AM that patient's mentation s ignificantly changed and was last known normal last night at [facility]. RN reports that around 1 AM pt was noted to be confused and unable to state her name. Immediately went to bedside to assess. Patient was found to have significant muscular tics/myoclonic jerking movements, puffing of cheeks and l ips and now nonverbal. Patient was able to smile and follow staff with her eyes around room and appeared to be moving all extremities independently but not following commands. Order placed for stat CT brain, CTA head and neck, blood glucose check and EEG. [id number] glucose at this time is 186. Called and notified neurologist of urgent consult and significant change in patient's mentation. Stroke code not called as pts last known normal was yesterday evening and patient is on anticoagulation with Eliquis. 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 CTA head and neck completed CTA head was negative for acute process showing no vertebral stenosis of the ventricle, segmental occlusion, sizable aneurysms, or reported vascular malformations. CTA neck revealed severe proximal right internal carotid artery stenosis. Started patient on aspirin 81 mg daily and increased atorvastatin to 80 mg daily. Consult placed to vascular surgery for evaluation. Received notification from neurologist, EEG was reported to be severely abnormal and per neurology request giving patient a loading dose of Keppra 1000 mg and starting patient on Keppra 500 mg twice daily. Order also placed for MRI brain without contrast. Patient being transferred to stepdown unit for closer monitoring. RN updated patient's daughter and guardian. Discussed with infectious disease, cefepime discontinued and patient started on Invanz. Repeat CT head completed this morning again showing no acute intracranial process. Patient's condition showing no improvement and slight worsening of mentation as patient now not only nonverbal but only responds to painful stimuli. Physical exam: General: Nontoxic and appears stated age. Derm: Skin warm and dry, normal coloration for ethnicity. Head: Atraumatic, normocephalic and symmetric. Eyes: EOMs intact, no lid lag, and anicteric sclera. Pupils equal, round, and reactive to light. Mouth: no lip lesions, mucus membranes moist Cardiovascular: Irregularly irregular positive posterior tibial pulses bilaterally, and cap refill < 2 seconds. Lungs: Respirations even, regular, and unlabored on room air. Lungs CTA bilaterally, no rhonchi, no rales, no wheezing, and no accessory muscle usage. Abdominal: soft, nontender to palpation, no guarding, no appreciable organomegaly Ext: ROM intact. No gross muscle atrophy, no edema, no contractures Neuro/psych: Patient now only making unrecognizable noises/sounds with painful stimuli, she will withdraw from pain but is no longer alert/awake. GCS 8. Assessment and Plan of Care: Severe metabolic encephalopathy, unclear etiology possible seizure activity vs CVA vs Cefepime induced neurotoxicity Citrobacter freundii UTI -Blood cultures showing no growth to date. -Urine culture positive for Citrobacter freundii -IV antibiotics changed to Invanz 1 g daily -Continue neurochecks every 4 hours, seizure precautions and fall precautions. -TSH normal findings at 1.670. -CT brain reported showing appropriate senescent changes negative for acute bleed or mass showing remote lacunar infarct in the right internal capsule and left basal ganglia. -CTA head was negative for acute process showing no vertebral stenosis of the ventricle, segmental occlusion, sizable aneurysms, or reported vascular malformations. -CTA neck revealed severe proximal right internal carotid artery stenosis. -Received notification from neurologist, EEG was reported to be severely abnormal and per neurology request giving patient a loading dose of Keppra 1000 mg IVPB and starting patient on Keppra 500 mg twice daily. -Order also placed for MRI brain without contrast. -Patient being transferred to stepdown unit for closer monitoring. Severe carotid artery stenosis -CTA neck reporting severe right internal carotid artery stenosis. -Patient is on Eliquis 5 mg twice daily and has been started patient on aspirin 81 mg daily and increased atorvastatin to 80 mg daily. -Consult placed to vascular surgery for evaluation. Diabetes mellitus with hyperglycemia -Continue glycemic protocol with NovoLog sliding scale and Levemir 15 units daily. Glucose checks changed to every 6 hours secondary to patient's current status. -Hemoglobin A1c 9.8% Lactic acidosis, resolved Hypomagnesemia, resolved. Chronic atrial fibrillation -Continue medication regimen with Eliquis 5 mg twice daily and Cardizem 180 mg daily. Hypothyroidism Continue daily medication regimen with levothyroxine 12.5 mcg daily. TSH normal findings at 1.670. COPD, not in acute exacerbation. -Continue Symbicort 2 puffs twice daily and DuoNebs as needed for wheezing and/or shortness of breath. Data and imaging reviewed: -CT brain reported showing appropriate senescent changes negative for acute bleed or mass showing remote lacunar infarct in the right internal capsule and left basal ganglia. -CTA head was negative for acute process showing no vertebral stenosis of the ventricle, segmental occlusion, sizable aneurysms, or reported vascular malformations. -CTA neck revealed severe proximal right internal carotid artery stenosis. -EEG was completed and report reviewed showing abnormal EEG due to presence of diffuse bilateral symmetric high amplitude sharp appearing waves suggestive of underlying cortical irritability and tendency for seizures, patient was given Ativan during the testing and high amplitude waves dissipated along with patient's myoclonic twitches however background was diffusely slow suggestive of severe encephalopathy. -Vital signs reviewed and stable. Blood pressure 122/67, heart rate 68, respiratory rate 18, temp 98.4 F, and SpO2 of 93% on 3 L. -Morning labs reviewed and stable. CBC and CMP unremarkable. Blood glucose 159. CODE STATUS: Full code DVT prophylaxis: Eliquis Anticipated discharge date: Likely in the next 24 to [address]: Pending evaluation by PT/OT, family requesting rehab Patient was seen independently by Nurse Pracitioner. This document was prepared using [employer] dictation software. Please allow for errors in guest advisor, while rare they do occur. I reviewed the documentation as provided by the MANJINDER above, who is the original author of this note. I agree with the documented assessment and plan, with the following changes: none Objective - Vital Signs Vital signs: Vital Signs Temp 98.7 F 11/27/23 03:18 Pulse 118 H 11/27/23 03:18 Resp 24 11/27/23 03:18 BP 160/100 11/27/23 03:19 Pulse Ox 96 11/27/23 03:18 FiO2 Intake & Output 11/26/23 11/27/23 11/27/23 18:59 06:59 18:59 Other: Voiding Method External Catheter External Catheter # Voids 2 1 # Bowel Movements 1 - Labs CBC & Chem 7: 11/28/23 06:29 11/28/23 06:29 Labs: Abnormal Lab Results - Last 24 Hours (Table) 11/26/23 11/26/23 11/26/23 Range/Units 09:34 12:17 16:33 POC Glucose (mg/dL) 186 H 199 H 146 H (70-110) mg/dL 11/26/23 11/27/23 Range/Units 20:12 06:26 POC Glucose (mg/dL) 160 H 168 H (70-110) mg/dL
[2023-11-27] MEDS ORDERED: levETIRAcetam IV 500 MG/5 ML VIAL IVP SCH (13:00)
[2023-11-27] MEDS: LEVETIRACETAM IVPB SCH (13:12)
[2023-11-27] MEDS: SODIUM CHLORIDE 0.9% IVPB SCH (13:12)
[2023-11-27] MEDS: ACYCLOVIR SODIUM 700 MG in SODIUM CHLORIDE 0.9% 100 ML IVPB SCH (15:53)
[2023-11-27 16:28] LABS: Glucose,Whole Blood 143 mg/dL (70-110)
[2023-11-27 18:20] LABS: Amphetamine Screen,Urine Not Detected (NotDetected); Barbiturate Screen,Urine Not Detected (NotDetected); Benzodiazepines Screen,Urine Detected (NotDetected); Cocaine Screen,Urine Not Detected (NotDetected); Methadone Screen, Urine Not Detected (NotDetected); Opiate Screen,Urine Not Detected (NotDetected); Oxycodone Screen, Urine Not Detected (NotDetected); Phencyclidine Screen,Urine Not Detected (NotDetected); Tricyclic Antidepressant,Urine Not Detected (NotDetected); Urn Cannabinoid Scrn Not Detected (NotDetected)
--- NOTE | 2023-11-27 21:49 | EEG ---
DATE OF SERVICE: 11/27/2023 ELECTROENCEPHALOGRAM REPORT PREAMBLE: This is an 83-year-old female with abnormal EEG. This is a followup EEG. EEG FINDINGS: The background consists of a moderately well-developed, poorly regulated, predominant diffuse mixed frequencies of 6 to 7 hertz theta, intermixed with some 2 to 3 hertz delta activity seen in bihemispheric region. Frequent frontal predominant, triphasic type waves were seen during the study. These at times become more rhythmic, sometimes at 1 to 2 hertz. No myoclonic twitches were seen during the study. Different stages of sleep were not seen. Photic stimulation or hyperventilation were not done. IMPRESSION: 1. Persistently abnormal EEG, with presence of background slowing of moderate to severe degree, suggestive of toxic metabolic encephalopathy. 2. Presence of intermittent high amplitude, frontally predominant waves, which at times appears triphasic type in quality, but sometimes they become rhythmic at 1 to 2 hertz. Overall, this is consistent with severe encephalopathy. When compared to the EEG from 11/26/2023, there is overall improvement in the background, and much less frequency of the sharp appearing waves. Recommend continuous EEG monitoring for further evaluation. MMODL / IJN: [id number] / MTDD
[2023-11-27] MEDS: INSULIN ASPART (NovoLOG) 100 UNIT/ML VIAL SQ SCH (23:14)
[2023-11-27 23:15] LABS: Glucose,Whole Blood 136 mg/dL (70-110)
--- NOTE | 2023-11-27 23:44 | P.PN ---
Subjective Progress Note Date: 11/27/23 Patient was seen for a follow-up. Patient has become further worse. She continues to be mute, but now is very groggy, drowsy. Myoclonic twitching has completely resolved. Drowsiness could be related to Keppra. Patient is afebrile, white cells are normal. Patient is not able to take anything by mouth . The last dose of Eliquis she received was yesterday morning at 6:33 AM. She did not receive the night dose of Eliquis yesterday and this morning. Patient started on aspirin 300 mg rectally. Objective - Vital Signs Vital signs: Vital Signs Temp 97.3 F L 11/27/23 08:00 Pulse 109 H 11/27/23 11:41 Resp 22 11/27/23 11:41 BP 166/93 11/27/23 11:41 Pulse Ox 93 L 11/27/23 11:41 FiO2 Intake & Output 11/26/23 11/27/23 11/27/23 18:59 06:59 18:59 Intake Total 0 Balance 0 Intake: Oral 0 Other: Voiding Method External Catheter External Catheter External Catheter # Voids 2 1 2 # Bowel Movements 1 - Exam Patient is severely encephalopathic. She is very groggy. Patient keeps arrives close. Patient does moans, and opens eyes to nailbed pressure. The response was equal bilaterally. Her face is symmetric. Her pupils are equal, round and reactive to light. No myoclonic or seizure-like activity noticed. Her neck is supple. - Labs CBC & Chem 7: 11/27/23 08:17 11/27/23 08:17 Labs: Abnormal Lab Results - Last 24 Hours (Table) 11/26/23 11/26/23 11/26/23 Range/Units 12:17 16:33 20:12 Glucose (74-99) mg/dL POC Glucose (mg/dL) 199 H 146 H 160 H (70-110) mg/dL Total Protein (6.3-8.2) g/dL Albumin (3.5-5.0) g/dL 11/27/23 11/27/23 11/27/23 Range/Units 06:26 08:17 11:37 Glucose 159 H (74-99) mg/dL POC Glucose (mg/dL) 168 H 139 H (70-110) mg/dL Total Protein 5.9 L (6.3-8.2) g/dL Albumin 3.2 L (3.5-5.0) g/dL Assessment and Plan Assessment: * Altered mental status, likely due to toxic metabolic encephalopathy. Patient has developed acute muteness, with myoclonic twitches. Suspect toxic metabolic, rule out myoclonic status, that seems to have resolved clinically. * Acute Citrobacter UTI. Patient was on cefepime, now switched to Invanz. * Atrial fibrillation, currently on Eliquis * Hypertension * Diabetes Plan: * Patient is not exhibiting any myoclonic twitches/seizures, but mentation has got worse, more groggy, lethargic. Yesterday she was alert, smiling, making eye contact, despite being mute, and exhibiting myoclonic twitching, but today she is not responding, or opening eyes spontaneously. We will check a repeat stat EEG. * CTA of head and neck revealed severe proximal right ICA stenosis. Patient started on aspirin 81 mg daily. Patient also on Eliquis 5 mg twice a day. * Check carotid Doppler. * Await vascular surgery. * Initial EEG 11/26/2023 was abnormal due to presence of diffuse bilaterally symmetric high amplitude frontally maximal sharp-appearing waves seen at 2-3 Hz, suggestive of underlying cortical irritability and tendency for seizures. Intermittent myoclonic jerks weren't noticed with presence of high amplitude myogenic activity lasting for about 1-2 seconds. After the Ativan 1 mg IV push was given, this high amplitude sharp-appearing waves dissipated along with myoclonic twitches. Otherwise the background was diffusely slow, sugge stive of severe encephalopathy. Overall, this EEG may suggest myoclonic status, which was aborted with 1 mg Ativan. Clinical correlation and follow- up EEG recommended. * Patient on Keppra 1500 mg twice a day. * Repeat EEG performed today revealed persistently abnormal EEG with presence of background slowing of moderate to severe degree, suggestive of toxic metabolic encephalopathy. Presence of intermittent high amplitude frontally predominant waves, which at times appears triphasic type in quality but sometimes they become rhythmic at 1-2 Hz. Overall this is consistent with severe encephalopathy. When compared to the EEG from 09/25/2024, there is overall improvement in the background and much less frequency of sharp-appearing waves. Recommend continuous EEG monitoring for further evaluation. * It is uncertain if this EEG abnormality is related to the use of cefepime. This has been stopped and switched to Invanz, as of yesterday evening. * Patient has not started speaking. We will empirically add Vimpat 100 mg IV twice a day. * Recommend patient to be transferred to higher level of care for continuous EKG monitoring. * Repeat prolonged EEG 1-2.5 hours in the morning (if the patient does not and up being transferred to higher level of care). * Recommended lumbar puncture. Patient received last dose of Eliquis yesterday morning (not able to take anything by mouth because of mental status). We have to wait for 48 hours for lumbar puncture to be carried on safely. Therefore we will consider lumbar puncture Tuesday morning which will be 48 hours after the last dose of Eliquis. As the total WBC count, and temperatures are completely normal, therefore we will not perform lumbar puncture emergently, the risks outweigh the benefit. Discussed with ID. We will empirically start patient on acyclovir. * Check MRI of the brain with and without contrast in the morning. * Discussed with primary team in detail multiple times today. Primary team is in close contact with the family members, updating the progress. * Dr. Ernie Sutton Will resume neurology service in the morning. Time with Patient: Greater than 30
[2023-11-27] MEDS: SODIUM CHLORIDE 0.9% 1,000 ML IV SCH (23:55)
[2023-11-27] MEDS: Lacosamide IV (ages 17+ yrs) 200 MG/20 ML ML IVP SCH (23:55)
[2023-11-28] MEDS: HEPARIN SODIUM,PORCINE 5,000 UNIT/ML 1 ML VIAL SQ SCH (00:30)
[2023-11-28 06:12] LABS: Glucose,Whole Blood 166 mg/dL (70-110)
[2023-11-28 07:06] LABS: Basophils % (A) 0 %; Eosinophils # (A) 0.1 k/uL (0-0.7); Eosinophils % (A) 1 %; HCT 39.8 % (34.0-46.0); HGB 12.6 gm/dL (11.4-16.0); Lymphocytes # (A) 1.1 k/uL (1.0-4.8); Lymphocytes % (A) 12 %; MCH 28.2 pg (25.0-35.0); MCHC 31.7 g/dL (31.0-37.0); Mean Platelet Volume 8.5; Monocytes # (A) 0.6 k/uL (0-1.0); Monocytes % (A) 7 %; Neutrophils # (A) 7.4 k/uL (1.3-7.7); Neutrophils % (A) 80 %; Platelet Count 238 k/uL (150-450); RBC 4.47 m/uL (3.80-5.40); RDW 14.4 % (11.5-15.5); WBC 9.3 k/uL (3.8-10.6)
[2023-11-28 07:07] LABS: Partial Thromboplastin Time 23.2 sec (22.0-30.0); Prothrombin Time 10.7 sec (10.0-12.5)
[2023-11-28 07:18] LABS: ALT 14 U/L (4-34); AST 24 U/L (14-36); African American GFR (CKD) >90 (>60 ml/min/1.73 sqM); Albumin 3.3 g/dL (3.5-5.0); Alkaline Phosphatase 98 U/L (38-126); Anion Gap 10 mmol/L; Blood Urea Nitrogen 15 mg/dL (7-17); Calcium 8.7 mg/dL (8.4-10.2); Carbon Dioxide 23 mmol/L (22-30); Chloride 107 mmol/L (98-107); Glucose 175 mg/dL (74-99); Non-African American GFR(CKD) 82 (>60 ml/min/1.73 sqM); Potassium 3.9 mmol/L (3.5-5.1); Sodium 140 mmol/L (137-145); Total Bilirubin 1.1 mg/dL (0.2-1.3)
--- NOTE | 2023-11-28 09:48 | P.PN ---
Subjective Progress Note Date: 11/27/23 Principal diagnosis: Reason for follow-up is drug-resistant UTI Patient is a 83-year-old female with a past medical history significant for diabetes mellitus hypertension atrial fibrillation memory impairment presenting to the hospital for evaluation of weakness and mental status changes did have a positive UA some urinary symptoms concerning for symptomatic UTI urine culture subsequently came back positive with the drug- resistant Citrobacter. On today's evaluation that is 11/27/2023,the patient remains to be afebrile, patient is on room air not requiring supplemental oxygen patient continue mental status changes he is staring and did not answer any question no vomiting diarrhea or any other changes reported by the nursing staff. The patient did have a white count of 6.8, creatinine 0.54 blood culture negative Objective - Vital Signs Vital signs: Vital Signs Temp 97.3 F L 11/27/23 08:00 Pulse 109 H 11/27/23 11:41 Resp 22 11/27/23 11:41 BP 166/93 11/27/23 11:41 Pulse Ox 93 L 11/27/23 11:41 FiO2 Intake & Output 11/26/23 11/27/23 11/27/23 18:59 06:59 18:59 Intake Total 0 Balance 0 Intake: Oral 0 Other: Voiding Method External Catheter External Catheter External Catheter # Voids 2 1 2 # Bowel Movements 1 - Exam GENERAL DESCRIPTION: An elderly female lying in bed in no distress RESPIRATORY SYSTEM: Unlabored breathing , decreased breath sounds at bases HEART: S1 S2 regular rate and rhythm , ABDOMEN: Soft , no tenderness EXTREMITIES: No edema feet - Labs CBC & Chem 7: 11/27/23 08:17 11/27/23 08:17 Labs: Abnormal Lab Results - Last 24 Hours (Table) 11/26/23 11/26/23 11/27/23 Range/Units 16:33 20:12 06:26 Glucose (74-99) mg/dL POC Glucose (mg/dL) 146 H 160 H 168 H (70-110) mg/dL Total Protein (6.3-8.2) g/dL Albumin (3.5-5.0) g/dL 11/27/23 11/27/23 Range/Units 08:17 11:37 Glucose 159 H (74-99) mg/dL POC Glucose (mg/dL) 139 H (70-110) mg/dL Total Protein 5.9 L (6.3-8.2) g/dL Albumin 3.2 L (3.5-5.0) g/dL Assessment and Plan (1) Penicillin allergy Current Visit: Yes Status: Acute Code(s): Z88.0 - ALLERGY STATUS TO P ENICILLIN SNOMED Code(s): 70658619 (2) UTI (urinary tract infection) Current Visit: No Status: Acute Code(s): N39.0 - URINARY TRACT INFECTION, SITE NOT SPECIFIED SNOMED Code(s): 41444242 Plan: 1patient was in the hospital mental status changes and weakness which is likely multifactorial patient did have some urinary symptoms and now with evidence of drug-resistant bacteria in the urine like responsible for some of her symptomatology 2-penicillin allergy that will limit the number of antibiotics safe to use 3-patient did have significant change in her mentation, cefepime was discontinued concerning for possible drug-related however the patient did have persistent mentation will benefit from LP discussed with the neurologist patient needs to be off Eliquis for 48 hours before LP will be attempted we will emp irically add acyclovir and see response Dictation was produced using [employer] software. please excuse any grammatical, word or spelling errors.
--- NOTE | 2023-11-28 11:15 | P.GSCN ---
History of Present Illness Consult date: 11/28/23 Reason for Consult: Carotid stenosis Requesting physician: Hayden Isaac History of present illness: This is an 83-year-old female, HPI obtained from chart as patient has altered mental status changes. This is a patient who was brought in by EMS for generalized weakness and debility. They believed symptoms were secondary to hyperglycemia and urinary tract infection. Apparently patient had been feeling weak over the last 1 or 2 days prior to coming to the emergency department. On admission she was diagnosed with a urinary tract infection and started on IV Rocephin which then was changed to IV cefepime due to urine culture sensitivities. Reportedly on admission patient was alert and oriented x 4. Apparently on Tuesday night patient was noted to have altered mental status changes, she was confused could not answer questions appropriately and started having tonic-clonic seizure-like activity. She had a CT of the brain done on 11/26/2023 with no acute findings. Also had a CT angio head and neck that rep orted severe proximal right internal carotid artery stenosis, no reported percentage. Vascular surgery was consulted for severe right ICA stenosis. Patient is currently lying with her eyes closed, she did open her eyes initially and wiggled her toes of her right foot when asked to other than that she closed her eyes and was no longer responsive. Spoke with primary medical team as well who was trying to get patient transferred to tertiary center for higher level of care and continuous EEG monit oring however they state that patient does not meet criteria and they believe that patient's symptoms could be related to the IV cefepime she was on for her urinary tract infection. 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 MDRO Source:: Urine Past Surgical History: Appendectomy Additional Past Surgical History / Comment(s): patient poor historian Past Anesthesia/Blood Transfusion Reactions: No Reported Reaction Smoking Status: Unknown if ever smoked Medications and Allergies Home Medications Medication Instructions Recorded Confirmed Type Acetaminophen [Tylenol 8 Hour] 1,300 mg PO HS 08/25/23 11/22/23 History Acetaminophen [Tylenol Arthritis] 650 mg PO AC-BRKFST 08/25/23 11/22/23 History Apixaban [Eliquis] 5 mg PO AC-BID 08/25/23 11/22/23 History Atorvastatin [Lipitor] 40 mg PO AC-BRKFST 08/25/23 11/22/23 History Calcium Carbonate [Calcium] 600 mg PO HS 08/25/23 11/22/23 History Diclofenac Sodium Gel [Voltaren 1% 1 applic TOPICAL QID PRN 08/25/23 11/22/23 History Gel] Dulaglutide [Trulicity] 0.75 mg SQ WE 08/25/23 11/22/23 History Escitalopram [Lexapro] 20 mg PO DAILY 08/25/23 11/22/23 History Ferrous Sulfate [Iron (65 MG 325 mg PO HS 08/25/23 11/22/23 History Elemental)] Insulin Glargine-Yfgn [Semglee 10 units SQ HS 08/25/23 11/22/23 History (Yfgn) Pen] Ipratropium-Albuterol Nebulize 3 ml INHALATION RT-QID PRN 08/25/23 11/22/23 Hist ory [Duoneb 0.5 mg-3 mg/3 ml Soln] Levothyroxine Sodium [Synthroid] 12.5 mcg PO AC-BRKFST 08/25/23 11/22/23 History Loperamide HCl [Imodium A-D] 2 mg PO QID PRN 08/25/23 11/22/23 History Loratadine 10 mg PO HS 08/25/23 11/22/23 History Montelukast [Singulair] 10 mg PO HS 08/25/23 11/22/23 History [place]-3/Dha/Epa/Fish Oil [Fish Oil 1 cap PO HS 08/25/23 11/22/23 History 1,000 mg Softgel] Pantoprazole [Protonix] 40 mg PO AC-BRKFST 08/25/23 11/22/23 History Potassium Gluconate 99 mg PO HS 08/25/23 11/22/23 History Prevagen 1 tab PO BID 08/25/23 11/22/23 History Super B Complex 1 tab PO HS 08/25/23 11/22/23 History Tiotropium 2.5 Mcg/Puff [Spiriva 1 puff INHALATION RT-DAILY PRN 08/25/23 11/22/23 History Respimat 2.5 Mcg] dilTIAZem HCL [dilTIAZem HCL 24Hr 180 mg PO AC-BRKFST 08/25/23 11/22/23 History ER (Xr)] Gabapentin [Neurontin] 300 mg PO TID 3 Days #9 cap 09/22/23 11/22/23 Rx Budesonide-Formot 160-4.5 Mcg 2 puff INHALATION RT-BID #1 each 10/28/23 11/22/23 Rx [Symbicort 160-4.5 Mcg Inhaler] Losartan [Cozaar] 50 mg PO DAILY #30 tab 10/28/23 11/22/23 Rx Acetaminophen Tab [Tylenol] 650 mg PO Q6HR PRN tab 11/04/23 11/22/23 Rx Ipratropium-Albuterol Nebulize 3 ml INHALATION RT-QID #100 each 11/04/23 11/22/23 Rx [Duoneb 0.5 mg-3 mg/3 ml Soln] predniSONE See Taper PO DIRECTED 11/22/23 11/22/23 History Allergies Allergy/AdvReac Type Severity Reaction Status Date / Time Penicillins Allergy Rash/Hives Verified 11/22/23 09:47 Surgical - Exam Vital Signs Temp Pulse Resp BP Pulse Ox 97.5 F L 97 18 146/84 96 11/21/23 22:39 11/21/23 22:39 11/21/23 22:39 11/21/23 22:39 11/21/23 22:39 General appearance: The patient lying with her eyes closed, she did open them for a short moment however then closed again. HET: Head is normocephalic and atraumatic. Unable to evaluate pupils as patient would not open eyes. Neck: Supple. No audible bruit. Heart: Regular. Lungs: Equal expansion, normal respiratory effort. Abdomen: Soft, nondistended. Extremities: Normal skin color and turgor. Palpable bilateral radial and dorsalis pedis pulses. Neurological: Patient was lying with her eyes closed, overall pretty nonresponsive. Did open her eyes at one point and moaned, did wiggle her right toes briefly. Results - Labs 11/28/23 06:29 11/28/23 06:29 Abnormal Lab Results - Last 24 Hours (Table) 11/27/23 11/27/23 11/27/23 Range/Units 11:37 16:27 17:51 Glucose (74-99) mg/dL POC Glucose (mg/dL) 139 H 143 H (70-110) mg/dL Total Protein (6.3-8.2) g/dL Albumin (3.5-5.0) g/dL U Benzodiazepines Scrn Detected H (NotDetected) 11/27/23 11/28/23 11/28/23 Range/Units 23:13 06:12 06:29 Glucose 175 H (74-99) mg/dL POC Glucose (mg/dL) 136 H 166 H (70-110) mg/dL Total Protein 6.0 L (6.3-8.2) g/dL Albumin 3.3 L (3.5-5.0) g/dL U Benzodiazepines Scrn (NotDetected) Microbiology - Last 24 Hours (Table) 11/22/23 04:53 Blood Culture - Final Blood Diabetes panel 11/28/23 Range/Units 06:29 Sodium 140 (137-145) mmol/L Potassium 3.9 (3.5-5.1) mmol/L Chloride 107 (98-107) mmol/L Carbon Dioxide 23 (22-30) mmol/L BUN 15 (7-17) mg/dL Creatinine 0.67 (0.52-1.04) mg/dL Glucose 175 H (74-99) mg/dL Calcium 8.7 (8.4-10.2) mg/dL AST 24 (14-36) U/L ALT 14 (4-34) U/L Alkaline Phosphatase 98 (38-126) U/L Total Protein 6.0 L (6.3-8.2) g/dL Albumin 3.3 L (3.5-5.0) g/dL Calcium panel 11/28/23 Range/Units 06:29 Calcium 8.7 (8.4-10.2) mg/dL Albumin 3.3 L (3.5-5.0) g/dL Pituitary panel 11/28/23 Range/Units 06:29 Sodium 140 (137-145) mmol/L Potassium 3.9 (3.5-5.1) mmol/L Chloride 107 (98-107) mmol/L Carbon Dioxide 23 (22-30) mmol/L BUN 15 (7-17) mg/dL Creatinine 0.67 (0.52-1.04) mg/dL Glucose 175 H (74-99) mg/dL Calcium 8.7 (8.4-10.2) mg/dL Adrenal panel 11/28/23 Range/Units 06:29 Sodium 140 (137-145) mmol/L Potassium 3.9 (3.5-5.1) mmol/L Chloride 107 (98-107) mmol/L Carbon Dioxide 23 (22-30) mmol/L BUN 15 (7-17) mg/dL Creatinine 0.67 (0.52-1.04) mg/dL Glucose 175 H (74-99) mg/dL Calcium 8.7 (8.4-10.2) mg/dL Total Bilirubin 1.1 (0.2-1.3) mg/dL AST 24 (14-36) U/L ALT 14 (4-34) U/L Alkaline Phosphatase 98 (38-126) U/L Total Protein 6.0 L (6.3-8.2) g/dL Albumin 3.3 L (3.5-5.0) g/dL - Imaging Comments: 11/27/2023 EEG. Persistently abnormal EEG with presence of background slowing of moderate to severe degree, suggestive of toxic metabolic encephalopathy. Presence of intermittent high amplitude, frontally predominant waves, which at time appear triphasic type and quality, but sometimes they become rhythmic at 1 to 2 Hz. Overall this is consistent with severe encephalopathy. When compared to the EEG from 11/26/2023 these overall improvement in background and much less frequency of the sharp appearing waves. Recommend continuous EEG monitoring for further evaluation. Brain CT. Moderate age-appropriate atrophy. Chronic ischemic white matter kyrie nges and small remote lacunar infarct left basal ganglia. No acute bleed or mass effect. CT angiogram head and neck impression states severe proximal right internal carotid artery stenosis. MRI pending Assessment and Plan Assessment: 1. Altered mental status changes, EEG consistent with moderate to severe toxic metabolic encephalopathy 2. Asymptomatic right ICA stenosis 3. Urinary tract infection Plan: 1. Carotid duplex reordered 2. MRI currently pending 3. Await further recommendations from neurology 4. Further recommendations forthcoming based on clinical course Thank you for this consultation, we will continue to follow. The impression and plan of care has been dictated as directed. I performed a history and examination of this patient, discussed the same with the dictator. I agree with the dictator's note ,documented as a scribe. Any additional findings or plans will be noted.
--- NOTE | 2023-11-28 11:22 | P.PN ---
Subjective Progress Note Date: 11/28/23 Principal diagnosis: Reason for follow-up is drug-resistant UTI Patient is a 83-year-old female with a past medical history significant for diabetes mellitus hypertension atrial fibrillation memory impairment presenting to the hospital for evaluation of weakness and mental status changes did have a positive UA some urinary symptoms concerning for symptomatic UTI urine culture subsequently came back positive with the drug- resistant Citrobacter. On today's evaluation that is 11/28/2023, the patient continues to be afebrile, the patient is on room air and breathing comfortably, the patient remains to be lethargic and unable to provide any history no vomiting diarrhea or any other changes reported by the nursing staff. Patient white count is 9.3, creatinine 0.67 electrolytes are normal blood culture so far negative Objective - Vital Signs Vital signs: Vital Signs Temp 97.9 F 11/28/23 03:10 Pulse 114 H 11/28/23 03:10 Resp 20 11/28/23 08:00 BP 151/79 11/28/23 03:10 Pulse Ox 94 L 11/28/23 03:10 FiO2 Intake & Output 11/27/23 11/28/23 11/28/23 18:59 06:59 18:59 Intake Total 0 Output Total 800 200 Balance -800 -200 Intake: Oral 0 Output: Urine 800 200 Uretheral (Dow) 400 Other: Voiding Method External Catheter Indwelling Catheter Indwelling Catheter # Voids 2 - Exam GENERAL DESCRIPTION: An elderly female lying in bed in no distress RESPIRATORY SYSTEM: Unlabored breathing , decreased breath sounds at bases HEART: S1 S2 regular rate and rhythm , ABDOMEN: Soft , no tenderness EXTREMITIES: No edema feet - Labs CBC & Chem 7: 11/28/23 06:29 11/28/23 06:29 Labs: Abnormal Lab Results - Last 24 Hours (Table) 11/27/23 11/27/23 11/27/23 Range/Units 11:37 16:27 17:51 Glucose (74-99) mg/dL POC Glucose (mg/dL) 139 H 143 H (70-110) mg/dL Total Protein (6.3-8.2) g/dL Albumin (3.5-5.0) g/dL U Benzodiazepines Scrn Detected H (NotDetected) 11/27/23 11/28/23 11/28/23 Range/Units 23:13 06:12 06:29 Glucose 175 H (74-99) mg/dL POC Glucose (mg/dL) 136 H 166 H (70-110) mg/dL Total Protein 6.0 L (6.3-8.2) g/dL Albumin 3.3 L (3.5-5.0) g/dL U Benzodiazepines Scrn (NotDetected) Microbiology - Last 24 Hours (Table) 11/22/23 04:53 Blood Culture - Final Blood Assessment and Plan (1) Penicillin allergy Current Visit: Yes Status: Acute Code(s): Z88.0 - ALLERGY STATUS TO PENICILLIN SNOMED Code(s): 11025237 (2) UTI (urinary tract infection) Current Visit: No Status: Acute Code(s): N39.0 - URINARY TRACT INFECTION, SITE NOT SPECIFIED SNOMED Code(s): 68827404 Plan: 1patient was in the hospital mental status changes and weakness which is likely multifactorial patient did have some urinary symptoms and now with evidence of drug-resistant bacteria in the urine like responsible for some of her symptomatology 2-penicillin allergy that will limit the number of antibiotics safe to use 3-patient did have significant change in her mentation, cefepime was discontinued concerning for possible drug-related however the patient did have persistent mentation will benefit from LP discussed with the neurologist patient needs to be off Eliquis for 48 hours before LP will be attempted, and can be done today as the patient has been off Eliquis for more than 48 hours however the nursing staff mention possible transfer to [facility] or not continue with Invanz and acyclovir and monitor clinical course closely Prognosis guarded Dictation was produced using [employer] dictation software. please excuse any grammatical, word or spelling errors. Time with Patient: Less than 30
[2023-11-28 11:46] LABS: Glucose,Whole Blood 167 mg/dL (70-110)
--- NOTE | 2023-11-28 12:18 | MR ---
EXAMINATION TYPE: MR brain wo/w con DATE OF EXAM: 11/28/2023 11:47 AM CLINICAL INDICATION:Female, 83 years old with history of AMS, r/o encephalitis, or CVA, AMS, evaluate for CVA/encephalitis. COMPARISON: 11/27/2023 TECHNIQUE: Multi planar, multi sequence imaging was performed through the brain including: T1, T2, In version recovery, susceptibility weighted imaging and gradient echo imaging and Diffusion weighted im aging. The patient was then given intravenous contrast and multi planar, T1 fat-saturation images wer e obtained. IV Contrast: 9 cc Gadavist FINDINGS: Scattered areas of blooming artifact foci are seen throughout the brain bilaterally.. The arroyo-white junctions, ventricular system, basal cisterns appear unremarkable. Diffusion-weighted imaging shows no evidence of restricted diffusion to suggest acute/subacute infarct. Intracranial ar terial flow voids are maintained. Midline structures show no abnormality. Scattered foci of high T2 s ignal intensity are seen within the periventricular white matter. The susceptibility weighted images do not reveal any evidence for micro-hemorrhage. After administration of gadolinium, no abnormal enha ncement is seen. The bone marrow signal is within normal limits. Paranasal sinuses and mastoid air cells: No significant paranasal sinus disease. Visualized orbits: Orbital contents are intact. IMPRESSION: 1. Scattered alternatively these may represent foci of blooming artifact suspicious for microhemorrha ge throughout the brain correlate for cerebral amyloid angiopathy. 2. No evidence of intracranial mass, acute/subacute infarct, or abnormal enhancement. 3. Nonspecific white matter changes, likely related to small vessel ischemic disease.
[2023-11-28 13:20] LABS: HSV I IgG Interp Negative (Negative); HSV II IgG Interp POSITIVE
--- NOTE | 2023-11-28 14:51 | US ---
EXAMINATION TYPE: US carotid duplex BILAT DATE OF EXAM: 11/28/2023 COMPARISON: 11/26/2023 CLINICAL INDICATION: Female, 83 years old with history of Altered mental status changes, evaluate car otid st; Poor historian Portable exam. Patient asleep during the whole exam and unable to position neck to optimize the e xam. CCA pulsatility seen. TECHNIQUE: Carotid duplex ultrasound examination. Indirect Doppler criteria was utilized. FINDINGS: EXAM MEASUREMENTS: RIGHT: Peak Systolic Velocity (PSV) cm/sec ----- Right CCA: 62.5 ----- Right ICA: 75.7 ----- Right ECA: 57.5 ICA/CCA ratio: 1.2 RIGHT: End Diastole cm/sec ----- Right CCA: 13.1 ----- Right ICA: 13.1 ----- Right ECA: 0.0 LEFT: Peak Systolic Velocity (PSV) cm/sec ----- Left CCA: 49.9 ----- Left ICA: 71.3 ----- Left ECA: 57.5 ICA/CCA ratio: 1.4 LEFT: End Diastole cm/sec ----- Left CCA: 9.3 ----- Left ICA: 16.4 ----- Left ECA: 6.0 VERTEBRALS (direction of flow): Right Vertebral: Antegrade Left Vertebral: Unable to visualize Rhythm: Normal MOTION PICTURE EQUIPMENT MACHINIST NOTES: Limited visualization Plaque seen left bulb/proximal ICA. Right ICA not well visualized. IMPRESSION: 1. Less than 50% stenosis of the bilateral carotid bifurcations. 2. Nonvisualization of the left vertebral artery. Criteria for Assigning % of Stenosis / Diameter reduction (Estimation based on the indirect measurements of the internal carotid artery velocities (ICA PSV). 1. Normal (no stenosis)=ICA PSV < 125 cm/s: ratio < 2.0: ICA EDV<40 cm/s. 2. Less than 50% stenosis=ICA PSV < 125 cm/s: ratio < 2.0: ICA EDV<40 cm/s. 3. 50 to 69% stenosis=ICA PSV of 125 to 230 cm/s: ration 2.0 ? 4.0: ICA EDV 40-100 cm/s. 4. Greater than 70% stenosis to near occlusion= ICA PSV > 230 cm/s: ratio > 4.0: ICA EDV > 100 cm/s. 5. Near occlusion= ICA PSV velocities may be low or undetectable: variable ratio and ICA EDV. 6. Total occlusion=unable to detect flow.
--- NOTE | 2023-11-28 15:39 | P.PN ---
Subjective Progress Note Date: 11/28/23 Hospital course: Patient is a very pleasant 83-year-old female with a past medical history of chronic atrial fibrillation, insulin-dependent diabetes mellitus, hypertension, and memory impairment. She presented to the emergency department overnight secondary to complaints of confusion, hallucinations and generalized weakness. She underwent full evaluation upon arrival. Vital signs show blood pressure 146/84, heart rate 97, respiratory rate 18, 97.5 F, and SpO2 of 96% on room air. Labs completed and reviewed. CBC unremarkable. BMP showing pseudohyponatremia with sodium of 132 and elevated glucose of 412 with corrected glucose of 137. Lactic acid was elevated at 3.4. Urinalysis was contaminated but positive for protein, glucose, blood, nitrites, and greater than [address] brain was negative for acute intracranial process showing age-related cerebral atrophy and moderately advanced chronic small vessel ischemic changes redemonstrated. EKG was completed showing atrial fibrillation with a controlled ventricular rate of 95 bpm. Patient was started on IV antibiotics and admitted under services at this time. Patient was noted to have episodes of visual hallucinations and confusion concerning for delirium secondary to infection. Urine culture resulting positive for Citrobacter freundii which was resistant to Rocephin initially being given for acute cystitis. Rocephin discontinued and patient placed on cefepime per culture and sensitivity report. Consult was placed to infectious disease. Patient's mentation was improving and we were working towards discharging to group home facility. On the morning of 11/25/2023 received notification from RN at 9:20 AM that patient's mentation s ignificantly changed and was last known normal last night at [facility]. RN reports that around 1 AM pt was noted to be confused and unable to state her name. Immediately went to bedside to assess. Patient was found to have significant muscular tics/myoclonic jerking movements, puffing of cheeks and l ips and now nonverbal. Patient was able to smile and follow staff with her eyes around room and appeared to be moving all extremities independently but not following commands. Order placed for stat CT brain, CTA head and neck, blood glucose check and EEG. [id number] glucose at this time is 186. Called and notified neurologist of urgent consult and significant change in patient's mentation. Stroke code not called as pts last known normal was yesterday evening and patient is on anticoagulation with Eliquis. 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 CTA head and neck completed CTA head was negative for acute process showing no vertebral stenosis of the ventricle, segmental occlusion, sizable aneurysms, or reported vascular malformations. CTA neck revealed severe proximal right internal carotid artery stenosis. Started patient on aspirin 81 mg daily and increased atorvastatin to 80 mg daily. Consult placed to vascular surgery for evaluation. Received notification from neurologist, EEG was reported to be severely abnormal and per neurology request giving patient a loading dose of Keppra 1000 mg and starting patient on Keppra 500 mg twice daily. Order also placed for MRI brain without contrast. Patient being transferred to stepdown unit for closer monitoring. RN updated patient's daughter and guardian. Discussed with infectious disease, cefepime discontinued and patient started on Invanz. Repeat CT head completed this morning again showing no acute intracranial process. Patient's condition showing no improvement and slight worsening of mentation as patient now not only nonverbal but only responds to painful stimuli with a GCS of 8. Received consent to initiate transfer to [facility] for continuous EEG monitoring. Discussed with transfer center, faxed over patient's EEG and CT reports along with progress notes to [facility] transfer center review panel. Patient's case was presented and documentation reviewed by panel including neurologist and neurointerventional list. [facility] did not accept transfer stating they are in agreement that it is likely a metabolic encephalopathy believed to be resulting from cefepime induced neurotoxicity and patient does not require continuous EEG monitoring. Discussed this with neurologist whom is in agreement with keeping patient at our facility after he reviewed repeat EEG completed today showing slight improvement and no signs of seizure activity. Physical exam: General: Nontoxic and appears stated age. Derm: Skin warm and dry, normal coloration for ethnicity. Head: Atraumatic, normocephalic and symmetric. Eyes: EOMs intact, no lid lag, and anicteric sclera. Pupils equal, round, and reactive to light. Mouth: no lip lesions, mucus membranes moist Cardiovascular: Irregularly irregular positive posterior tibial pulses bilaterally, and cap refill < 2 seconds. Lungs: Respirations even, regular, and unlabored on room air. Lungs CTA bila terally, no rhonchi, no rales, no wheezing, and no accessory muscle usage. Abdominal: soft, nontender to palpation, no guarding, no appreciable organomegaly Ext: ROM intact. No gross muscle atrophy, no edema, no contractures Neuro/psych: Patient now only making unrecognizable noises/sounds with painful stimuli, she will withdraw from pain but is no longer alert/awake. GCS 8. Assessment and Plan of Care: Severe metabolic encephalopathy, unclear etiology possible seizure activity vs CVA vs Cefepime induced neurotoxicity vs other underlying neurological condition Citrobacter freundii UTI -Blood cultures showing no growth to date. -Urine culture was positive for Citrobacter freundii -Continue IV antibiotics changed to Invanz 1 g daily -Continue continuous telemetry monitoring with neurochecks every 4 hours, seizure precautions and fall precautions. -CT brain reported showing appropriate senescent changes negative for acute bleed or mass showing remote lacunar infarct in the right internal capsule and left basal ganglia. -CTA head was negative for acute process showing no vertebral stenosis of the ventricle, segmental occlusion, sizable aneurysms, or reported vascular malform ations. -CTA neck revealed severe proximal right internal carotid artery stenosis. -EEG showing moderate to severe background slowing suggestive of severe toxic metabolic encephalopathy. -MRI brain without contrast to be completed, patient scheduled this morning -Continue Keppra 1500 mg IVPB every 12 hours and Vimpat 100 mg every 12 hours. Severe right internal carotid artery stenosis -CTA neck reporting severe right internal carotid artery stenosis. -Eliquis held at this time secondary to possible LP, continue rectal aspirin and heparin for DVT prophylaxis. 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 Glucose checks changed to every 6 hours secondary to patient's current status. -Hemoglobin A1c 9.8% Lactic acidosis, resolved Hypomagnesemia, resolved. Chronic atrial fibrillation -Eliquis held pending possible LP, patient placed on Cardizem infusion secondary to inability to take oral Cardizem and ventricular rates elevating into 110s to 120s Hypothyroidism Oral levothyroxine 12.5 mcg being converted to IV TSH normal findings at 1.670. COPD, not in acute exacerbation. -Continue Symbicort 2 puffs twice daily and DuoNebs as needed for wheezing and/or shortness of breath. Data and imaging reviewed: -Vital signs reviewed and stable. Blood pressure 149/71, heart rate 117, respiratory rate 22, temp 97.5 F, SpO2 is 95% on room air. -Morning labs reviewed and stable. CBC and CMP unremarkable. Blood glucose 159. CODE STATUS: Full code DVT prophylaxis: Yesseniaqurebeca Anticipated discharge date: Clinical course to determine Anticipated discharge place: clinical course to determine Patient was seen independently by Nurse Pracitioner. This document was prepared using [employer] dictation software. Please allow for errors in employee training specialist, while rare they do occur. I reviewed the documentation as provided by the MANJINDER above, who is the original author of this note. I agree with the documented assessment and plan, with the following changes: none Objective - Vital Signs Vital signs: Vital Signs Temp 97.9 F 11/28/23 03:10 Pulse 114 H 11/28/23 03:10 Resp 20 11/28/23 08:00 BP 151/79 11/28/23 03:10 Pulse Ox 94 L 11/28/23 03:10 FiO2 Intake & Output 11/27/23 11/28/23 11/28/23 18:59 06:59 18:59 Intake Total 0 Output Total 800 200 Balance -800 -200 Intake: Oral 0 Output: Urine 800 200 Uretheral (Dow) 400 Other: Voiding Method External Catheter Indwelling Catheter Indwelling Catheter # Voids 2 - Labs CBC & Chem 7: 11/28/23 06:29 11/28/23 06:29 Labs: Abnormal Lab Results - Last 24 Hours (Table) 11/27/23 11/27/23 11/27/23 Range/Units 08:17 11:37 16:27 Glucose 159 H (74-99) mg/dL POC Glucose (mg/dL) 139 H 143 H (70-110) mg/dL Total Protein 5.9 L (6.3-8.2) g/dL Albumin 3.2 L (3.5-5.0) g/dL U Benzodiazepines Scrn (NotDetected) 11/27/23 11/27/23 11/28/23 Range/Units 17:51 23:13 06:12 Glucose (74-99) mg/dL POC Glucose (mg/dL) 136 H 166 H (70-110) mg/dL Total Protein (6.3-8.2) g/dL Albumin (3.5-5.0) g/dL U Benzodiazepines Scrn Detected H (NotDetected) 11/28/23 Range/Units 06:29 Glucose 175 H (74-99) mg/dL POC Glucose (mg/dL) (70-110) mg/dL Total Protein 6.0 L (6.3-8.2) g/dL Albumin 3.3 L (3.5-5.0) g/dL U Benzodiazepines Scrn (NotDetected) Microbiology - Last 24 Hours (Table) 11/22/23 04:53 Blood Culture - Final Blood
[2023-11-28 16:24] LABS: Glucose,Whole Blood 154 mg/dL (70-110)
[2023-11-28] MEDS: LEVOTHYROXINE IVP 100 MCG/5 ML VIAL IV SCH (17:30)
[2023-11-28] MEDS: DILTIAZEM 125 MG in SODIUM CHLORIDE 0.9% 100 ML IV SCH (17:30)
--- NOTE | 2023-11-28 20:31 | P.PN ---
Subjective Progress Note Date: 11/28/23 I am seeing the patient for the first time during this admission. Please refer to Dr. Pino's notes for further details. Since the patient has altered mental status and it was felt due to toxic metabolic encephalopathy and she had myoclonic twitches with mutism as well. According to the primary team it was started after she had ureter tract infection and was treated with cefepime and with the felt the initial workup or could've been the cefepime. Per cefepime was discontinued as was switched to Invanz. Had 2 routine EEGs and with the EEGs in the some rhythmicity as a result she was eventually started on Vimpat. Her eliquis is held for possible Lumbar puncture. Dr. Pino recommended the patient to be transferred for higher care for continuous EEG but per the primary team N.P. she was declined and was felt this seems more cefepime toxicity. She continues to be encephalopathic. Objective - Vital Signs Vital signs: Vital Signs Temp 98.1 F 11/28/23 20:00 Pulse 118 H 11/28/23 20:00 Resp 18 11/28/23 20:00 BP 174/102 11/28/23 20:00 Pulse Ox 96 11/28/23 20:00 FiO2 Intake & Output 11/28/23 11/28/23 11/29/23 06:59 18:59 06:59 Output Total 200 600 Balance -200 -600 Output: Urine 200 600 Other: Voiding Method Indwelling Catheter Indwelling Catheter - Exam General: Lying in bed and is not in acute distress. HENT: Was resisting upon flexing her neck. Neuro: Severely drowsy and with painful stimuli would say "Ouch, Ouch". Otherwise, not verbalizing or following commands. No facial weakness. No myoclonic jerks or twitches - Labs CBC & Chem 7: 11/28/23 06:29 11/28/23 06:29 Labs: Abnormal Lab Results - Last 24 Hours (Table) 11/27/23 11/28/23 11/28/23 Range/Units 23:13 06:12 06:29 Glucose 175 H (74-99) mg/dL POC Glucose (mg/dL) 136 H 166 H (70-110) mg/dL Total Protein 6.0 L (6.3-8.2) g/dL Albumin 3.3 L (3.5-5.0) g/dL 11/28/23 11/28/23 Range/Units 11:45 16:22 Glucose (74-99) mg/dL POC Glucose (mg/dL) 167 H 154 H (70-110) mg/dL Total Protein (6.3-8.2) g/dL Albumin (3.5-5.0) g/dL Assessment and Plan Assessment: * Altered mental status, likely due to toxic metabolic encephalopathy. Patient has developed acute muteness, with myoclonic twitches. Suspect toxic metabolic, rule out myoclonic status, that seems to have resolved clinically. Also confusion seems possible medication induced (Cefepime). Does not have leukocytosis. * Acute Citrobacter UTI. Patient was on cefepime, now switched to Invanz. * RIght ICA stenosis that is severe on CTA but not significant on carotid duplex and vascular feels asymptomatic. * Atrial fibrillation, currently on Eliquis * Hypertension * Diabetes Plan: * CTA of head and neck revealed severe proximal right ICA stenosis. Patient started on aspirin 81 mg daily. Patient also on Eliquis 5 mg twice a day but is on hold for possible lumbar puncture. * Check carotid Doppler: less than 50% stenosis of bilateral carotid bifurcation. Nonvisulaization of the left vertebral artery. vascular surgery felt asymptomatic right ICA. * Initial EEG 11/26/2023 was reported abnormal due to presence of diffuse bilaterally symmetric high amplitude frontally maximal sharp-appearing waves seen at 2-3 Hz, suggestive of underlying cortical irritability and tendency for seizures. Intermittent myoclonic jerks weren't noticed with presence of high amplitude myogenic activity lasting for about 1-2 seconds. After the Ativan 1 mg IV push was given, this high amplitude sharp-appearing waves dissipated along with myoclonic twitches. Otherwise the background was diffusely slow, suggestive of severe encephalopathy. Overall, this EEG may suggest myoclonic status, which was aborted with 1 mg Ativan. Clinical correlation and follow-up EEG recommended. * Patient on Keppra 1500 mg twice a day. * Repeat EEG performed 11/27/2023 reported as revealed persistently abnormal EEG with presence of background slowing of moderate to severe degree, suggestive of toxic metabolic encephalopathy. Presence of intermittent high amplitude frontally predominant waves, which at times appears triphasic type in quality but sometimes they become rhythmic at 1-2 Hz. Overall this is consistent with severe encephalopathy. When compared to the EEG from 09/25/2024, there is overall improvement in the background and much less frequency of sharp-appearing waves. Recommend continuous EEG monitoring for further evaluation. * Dr. Pino empirically started Vimpat 100 mg IV twice a day. * Dr. Pino, Recommend patient to be transferred to higher level of care for continuous EEG monitoring but was declined to [facility] since was felt cefepime toxicity. * Repeat prolonged EEG 1-2.5 hours in the morning today: Pending. * Dr. Pino Recommended lumbar puncture. Patient received last dose of Eliquis 2 days ago in morning (not able to take anything by mouth because of mental status). We have to wait for 48 hours for lumbar puncture to be carried on safely. * Will attempt to obtain consent. Per Dr. Pino, as the total WBC count, and temperatures are completely normal, therefore we will not perform lumbar puncture emergently, the risks outweigh the benefit. He Discussed with ID and she was started empirically start patient on acyclovir. * Check MRI of the brain with and without contrast in the morning. * Discussed with primary team in detail multiple times today. UPDATE: Preliminary prolonged routine EEG today: no seizure or discharges but showed moderate to severe encephalopathy. MRI Brain: It showed scattered bilateral foci of blooming artifact suspicious for microhemorrhage throughout the brain, correlate for cerebral amyloid angiopathy. No evidence of intracranial mass, acute/subacute infarct or abnormal enhancement. Nonspecific white matter changes likely related to small vessel ischemic disease. 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 Need to reconsider anticoagulation on the long-term especially with the increased risk for bleed especially with amyloid and will discuss this with the decision makers. Time with Patient: Greater than 30
[2023-11-29 00:03] LABS: Glucose,Whole Blood 171 mg/dL (70-110)
[2023-11-29] MEDS: ZINC OXIDE PASTE (Z-GUARD) 1 APPLIC TOPICAL PRN (00:10)
--- NOTE | 2023-11-29 01:37 | EEG ---
ELECTROENCEPHALOGRAM REPORT CLINICAL HISTORY: This is an 83-year-old woman with confusion. The video EEG is obtained to evaluate for seizure epileptiform activity. RELEVANT MEDICATION: Vimpat. EEG TYPE: A prolonged EEG using the 10/20 electrode placement system. The time of recording is 11:32 on 11/28/2023 and end of recording is 12:59 on 11/28/2023. DESCRIPTION: Background consists of [id number] voltage of 4.5 to 5.5 hertz theta activity intermixed with delta activity. There is no physiological stage 2 sleep architecture. There is no focal slowing. Interictal and ictal is none. ACTIVATION PROCEDURE: Photic stimulation did not evoke a posterior driving response. There is no abnormality during the photic stimulation. Hyperventilation is not performed. CLINICAL INTERPRETATION: This is an abnormal prolonged routine EEG. The background slowing is suggestive of moderate encephalopathy. There is no focal slowing, epileptiform discharge, or seizure on the EEG. Clinical correlation is recommended. OTTO / TAMARA: [id number] / MTDHa
[2023-11-29 05:54] LABS: Glucose,Whole Blood 151 mg/dL (70-110)
[2023-11-29 08:42] LABS: Basophils % (A) 0 %; Eosinophils # (A) 0.1 k/uL (0-0.7); Eosinophils % (A) 1 %; HCT 37.1 % (34.0-46.0); Lymphocytes # (A) 1.3 k/uL (1.0-4.8); Lymphocytes % (A) 14 %; MCH 28.5 pg (25.0-35.0); MCHC 32.4 g/dL (31.0-37.0); MCV 87.8 fL (80.0-100.0); Mean Platelet Volume 8.9; Monocytes # (A) 0.6 k/uL (0-1.0); Monocytes % (A) 7 %; Neutrophils # (A) 6.8 k/uL (1.3-7.7); Neutrophils % (A) 76 %; Platelet Count 224 k/uL (150-450); RBC 4.22 m/uL (3.80-5.40); RDW 14.4 % (11.5-15.5); WBC 8.9 k/uL (3.8-10.6)
[2023-11-29 08:53] LABS: ALT 12 U/L (4-34); AST 22 U/L (14-36); African American GFR (CKD) 69 (>60 ml/min/1.73 sqM); Albumin 3.3 g/dL (3.5-5.0); Alkaline Phosphatase 94 U/L (38-126); Anion Gap 10 mmol/L; Blood Urea Nitrogen 14 mg/dL (7-17); Calcium 8.7 mg/dL (8.4-10.2); Carbon Dioxide 21 mmol/L (22-30); Chloride 111 mmol/L (98-107); Glucose 147 mg/dL (74-99); Magnesium 1.7 mg/dL (1.6-2.3); Non-African American GFR(CKD) 60 (>60 ml/min/1.73 sqM); Sodium 142 mmol/L (137-145)
--- NOTE | 2023-11-29 10:16 | P.PN ---
Subjective Progress Note Date: 11/29/23 Principal diagnosis: Altered mental status changes Patient was seen and examined today as a follow-up. She is lying in bed with her eyes closed. She did answer hello when her name was called. She would not follow any other commands or answer any other questions. She had a repeat carotid duplex yesterday with no significant stenosis bilaterally. Her labs are back with she had a brief she had a repeat MRI of brain reported scattered bilateral foci of blooming artifact suspicious for microhemorrhage throughout the brain, correlate for cerebral amyloid angiopathy. No evidence of intracranial mass, acute/subacute infarct or abnormal enhancement. Also had continuous EEG which again reported as abnormal, suggestive of moderate encephalopathy. Objective - Vital Signs Vital signs: Vital Signs Temp 97.9 F 11/29/23 03:00 Pulse 108 H 11/29/23 03:00 Resp 16 11/29/23 03:00 BP 117/76 11/29/23 03:00 Pulse Ox 93 L 11/29/23 03:00 FiO2 Intake & Output 11/28/23 11/29/23 11/29/23 18:59 06:59 18:59 Intake Total 10 Output Total 600 600 Balance -600 -590 Intake: IV 10 Invasive Line 5 10 Output: Urine 600 600 Other: Voiding Method Indwelling Catheter Indwelling Catheter - Exam General appearance: The patient is lying with her eyes closed, minimally focal. HET: Head is normocephalic and atraumatic. Eyes are closed. Neck: Supple. No bruit. Abdomen: Soft, nondistended. Extremities: Normal skin color and turgor. Neurological: Patient lies with her eyes closed, did respond to her name and said hello. No other verbal responses, would not follow any commands. - Labs CBC & Chem 7: 11/29/23 08:09 11/29/23 08:09 Labs: Abnormal Lab Results - Last 24 Hours (Table) 11/28/23 11/28/23 11/29/23 Range/Units 11:45 16:22 00:01 Chloride (98-107) mmol/L Carbon Dioxide (22-30) mmol/L Glucose (74-99) mg/dL POC Glucose (mg/dL) 167 H 154 H 171 H (70-110) mg/dL Total Protein (6.3-8.2) g/dL Albumin (3.5-5.0) g/dL 11/29/23 11/29/23 Range/Units 05:52 08:09 Chloride 111 H (98-107) mmol/L Carbon Dioxide 21 L (22-30) mmol/L Glucose 147 H (74-99) mg/dL POC Glucose (mg/dL) 151 H (70-110) mg/dL Total Protein 6.0 L (6.3-8.2) g/dL Albumin 3.3 L (3.5-5.0) g/dL Assessment and Plan Assessment: 1. Altered mental status changes, EEG consistent with moderate to severe toxic metabolic encephalopathy 2. Asymptomatic right ICA stenosis per CT angiogram. No significant stenosis per carotid duplex 3. Urinary tract infection Plan: 1. Carotid duplex reviewed 2. No indication for any vascular surgical intervention 3. Continue with recommendations from neurology 4. Rest of medical management per primary medical team Thank you for this consultation, we will sign off at this time. The impression and plan of care has been dictated as directed. I performed a history and examination of this patient, discussed the same with the dictator. I agree with the dictator's note ,documented as a scribe. Any additional findings or plans will be noted.
[2023-11-29 11:49] LABS: Glucose,Whole Blood 163 mg/dL (70-110)
--- NOTE | 2023-11-29 13:02 | P.PCN ---
Date of Procedure: 11/29/23 Procedure(s) Performed: Preoperative diagnosis: Altered mental status Post operative diagnoses: Altered mental status Procedure= lumbar puncture Anesthesia= local infiltration with lidocaine 1% 2 mL. Condition: stable Complication: none. Description of the procedure, consent signed. Patient in Room 377 placed in sitting position back prepped with chlorhexidine 3 times been local infiltration of the skin and subcutaneous tissue with lidocaine 1% 3 mL for skin and subcu interstitial frustrations at L4 5 levels then 22-gauge Quincke-type needle advanced slowly at L4- 5 interlaminar space there was positive cerebrospinal fluid which was clear, no heme, no paresthesia ,total of 9 ML of clear cerebrospinal fluid collected in 4 different tubes 2-2-1/2 mL in each, then the needle removed and a Band-Aid applied and patient tolerated the procedure well without any complications.
[2023-11-29 13:19] LABS: Glucose,CSF 87 mg/dL (40-70); Total Protein,CSF 57 mg/dL (12-60)
[2023-11-29 13:52] LABS: Appearance,CSF Clear; CSF Tube Number 4; CSF Tube Volume 1.5; Red Blood Cell,CSF 0 u/L (0-10)
[2023-11-29 13:53] LABS: Nucleated Cells, CSF 6 u/L (0-5)
[2023-11-29 14:04] LABS: Diff, Total Cells Cnt, CSF 100; Mononuclear WBC,CSF 100 %
--- NOTE | 2023-11-29 15:28 | P.PN ---
Subjective Progress Note Date: 11/29/23 I am following up with patient and per nurse she continues to be severely confused. Objective - Vital Signs Vital signs: Vital Signs Temp 98.2 F 11/29/23 09:00 Pulse 103 H 11/29/23 12:20 Resp 16 11/29/23 12:20 BP 153/81 11/29/23 12:20 Pulse Ox 93 L 11/29/23 12:20 FiO2 Intake & Output 11/28/23 11/29/23 11/29/23 18:59 06:59 18:59 Intake Total 10 107.167 Output Total 600 600 Balance -600 -590 107.167 Intake: IV 10 10 Invasive Line 5 10 10 Intake, IV Titration 97.167 Amount Diltiazem 125 mg In 97.167 Sodium Chloride 0.9% 100 ml @ 5 MG/HR 5 mls/hr IV .Q24H [facility] Rx#:[id number] Output: Urine 600 600 Other: Voiding Method Indwelling Catheter Indwelling Catheter Indwelling Catheter - Exam General: Lying in bed and is not in acute distress. HENT: Was resisting upon flexing her neck. Neuro: Severely drowsy and with painful stimuli and would briefly opens eyes. would say "Ouch, Ouch". Otherwise, not verbalizing or following commands. Primary gaze is midline. Pupils are 3-4mm and reactive to light. No facial weakness. No myoclonic jerks or twitches. She would grab on hand rail on right and left and localizes to pain uppers. - Labs CBC & Chem 7: 11/29/23 08:09 11/29/23 08:09 Labs: Abnormal Lab Results - Last 24 Hours (Table) 11/28/23 11/29/23 11/29/23 Range/Units 16:22 00:01 05:52 Chloride (98-107) mmol/L Carbon Dioxide (22-30) mmol/L Glucose (74-99) mg/dL POC Glucose (mg/dL) 154 H 171 H 151 H (70-110) mg/dL Total Protein (6.3-8.2) g/dL Albumin (3.5-5.0) g/dL CSF Tot Nucleated Cells (0-5) u/L CSF Glucose (40-70) mg/dL 02/13/24 02/13/24 02/13/24 Range/Units 08:09 11:29 11:47 Chloride 111 H (98-107) mmol/L Carbon Dioxide 21 L (22-30) mmol/L Glucose 147 H (74-99) mg/dL POC Glucose (mg/dL) 163 H (70-110) mg/dL Total Protein 6.0 L (6.3-8.2) g/dL Albumin 3.3 L (3.5-5.0) g/dL CSF Tot Nucleated Cells 6 H (0-5) u/L CSF Glucose 87 H (40-70) mg/dL Assessment and Plan Assessment: * Altered mental status and patient has developed acute muteness, with myoclonic twitches. Suspect toxic metabolic, underlying UTI and also confusion seems possible medication induced (Cefepime). MRI Brain is negative for acute or subacute process. * MRI Brain: It showed scattered bilateral foci of blooming artifact suspicious for microhemorrhage throughout the brain, correlate for cerebral amyloid angiopathy. No evidence of intracranial mass, acute/subacute infarct or abnormal enhancement. Nonspecific white matter changes likely related to small vessel ischemic disease. This is not cause of her confusion and likely had this before presenting to hospital. * Acute Citrobacter UTI. Patient was on cefepime, now switched to Invanz. * RIght ICA stenosis that is severe on CTA but not significant on carotid duplex and vascular feels asymptomatic. * Atrial fibrillation, currently on Eliquis * Hypertension * Diabetes Plan: * CTA of head and neck revealed severe proximal right ICA stenosis. Patient started on aspirin 81 mg daily. Patient also on Eliquis 5 mg twice a day but is on hold for possible lumbar puncture. * Check carotid Doppler: less than 50% stenosis of bilateral carotid bifurcation. Nonvisulaization of the left vertebral artery. vascular surgery felt asymptomatic right ICA. * MRI Brain: It showed scattered bilateral foci of blooming artifact suspicious for microhemorrhage throughout the brain, correlate for cerebral amyloid angiopathy. No evidence of intracranial mass, acute/subacute infarct or abnormal enhancement. Nonspecific white matter changes likely related to small vessel ischemic disease. 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 Need to reconsider anticoagulation on the long-term especially with the increased risk for bleed especially with amyloid. But if felt the benefit outweigh risk then resume anticoagulation. Will defer the use of anticoagulation to primary team on resume writer. * Initial EEG 11/26/2023 was reported abnormal due to presence of diffuse bilaterally symmetric high amplitude frontally maximal sharp-appearing waves seen at 2-3 Hz, suggestive of underlying cortical irritability and tendency for seizures. Intermittent myoclonic jerks weren't noticed with presence of high amplitude myogenic activity lasting for about 1-2 seconds. After the Ativan 1 mg IV push was given, this high amplitude sharp-appearing waves dissipated along with myoclonic twitches. Otherwise the background was diffusely slow, suggestive of severe encephalopathy. Overall, this EEG may suggest myoclonic status, which was aborted with 1 mg Ativan. Clinical correlation and follow-up EEG recommended. * Patient on Keppra 1500 mg twice a day. * Repeat EEG performed 11/27/2023 reported as revealed persistently abnormal EEG with presence of background slowing of moderate to severe degree, suggestive of toxic metabolic encephalopathy. Presence of intermittent high amplitude frontally predominant waves, which at times appears triphasic type in quality but sometimes they become rhythmic at 1-2 Hz. Overall this is consistent with severe encephalopathy. When compared to the EEG from 09/25/2024, there is overall improvement in the background and much less frequency of sharp-appearing waves. Recommend continuous EEG monitoring for further evaluation. * Dr. Pino empirically started Vimpat 100 mg IV twice a day. * Dr. Pino, Recommend patient to be transferred to higher level of care for continuous EEG monitoring but was declined to [facility] since was felt cefepime toxicity. * Repeat prolonged routine EEG on 11/28/2023: This is an abnormal prolonged routine EEG. The background slowing is suggestive of moderate encephalopathy. There is no focal slowing, epileptiform discharge or seizure on the EEG. * Dr. Pino Recommended lumbar puncture. He Discussed with ID and she was started empirically start patient on acyclovir. Will get consent from her guardian. * Discussed with primary team in detail multiple times today and her nurse. UPDATE: CSF study: clear, colorless, nucleated cells is 6 (normal is 0-5), glucose 87, protein is 57 She does not have meningitis or encephalitis from CSF study. Time with Patient: Less than 30
--- NOTE | 2023-11-29 15:32 | P.PN ---
Subjective Progress Note Date: 11/29/23 Hospital course: Patient is a very pleasant 83-year-old female with a past medical history of chronic atrial fibrillation, insulin-dependent diabetes mellitus, hypertension, and memory impairment. She presented to the emergency department overnight secondary to complaints of confusion, hallucinations and generalized weakness. She underwent full evaluation upon arrival. Vital signs show blood pressure 146/84, heart rate 97, respiratory rate 18, 97.5 F, and SpO2 of 96% on room air. Labs completed and reviewed. CBC unremarkable. BMP showing pseudohypona tremia with sodium of 132 and elevated glucose of 412 with corrected sodium of 137. Lactic acid was elevated at 3.4. Urinalysis was contaminated but positive for protein, glucose, blood, nitrites, and greater than [address] brain was negative for acute intracranial process showing age-related cerebral atrophy and moderately advanced chronic small vessel ischemic changes redemonstrated. EKG was completed showing atrial fibrillation with a controlled ventricular rate of 95 bpm. Patient was started on IV antibiotics and admitted under services at this time. Patient was noted to have episodes of visual hallucinations and confusion concerning for delirium secondary to infection. Urine culture resulting positive for Citrobacter freundii which was resistant to Rocephin initially being given for acute cystitis. Rocephin discontinued and patient placed on cefepime per culture and sensitivity report. Consult was placed to infectious disease. Patient's mentation was improving and we were working towards discharging to alf facility. On the morning of 11/25/2023 received notification from RN at 9:20 AM that patient's mentation significantly changed and was last known normal last night at [facility]. RN reports that around 1 AM pt was noted to be confused and unable to state her name. Immediately went to bedside to assess. Patient was found to have significant muscular tics/myoclonic jerking movements, puffing of cheeks and lips and now nonverbal. Patient was able to smile and follow staff with her eyes around room and appeared to be moving all extremities independently but not following commands. Order placed for stat CT brain, CTA head and neck, blood glucose check and EEG. Qjxso-ir-[id number] glucose at this time is 186. Called and notified neurologist of urgent consult and significant change in patient's mentation. Stroke code not called as pts last known normal was yesterday evening and patient is on anticoagulation with Eliquis. 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 CTA head and neck completed CTA head was negative for acute process showing no vertebral stenosis of the ventricle, segmental occlusion, sizable aneurysms, or reported vascular malformations. CTA neck revealed severe proximal right internal carotid artery stenosis. Started patient on aspirin 81 mg daily and increased atorvastatin to 80 mg daily. Consult placed to vascular surgery for evaluation. Received notification from neurologist, EEG was reported to be severely abnormal and per neurology request giving patient a loading dose of Keppra 1000 mg and starting patient on Keppra 500 mg twice daily. Order also placed for MRI brain without contrast. Patient being transferred to stepdown unit for closer monitoring. RN updated patient's daughter and guardian. Discussed with infectious disease, cefepime discontinued and patient started on Invanz. Repeat CT head completed this morning again showing no acute intracranial process. Patient's condition showing no improvement and slight worsening of mentation as patient now not only nonverbal but only responds to painful stimuli with a GCS of 8. Received consent to initiate transfer to [facility] for continuous EEG monitoring. Discussed with transfer center, faxed over patient's EEG and CT reports along with progress notes to [facility] transfer center review panel. Patient's case was presented and documentation reviewed by panel including neurologist and neurointerventional list. [facility] did not accept transfer stating they are in agreement that it is likely a metabolic encephalopathy believed to be resulting from cefepime induced neurotoxicity and patient does not require continuous EEG monitoring. Discussed this with neurologist whom is in agreement with keeping patient at our facility after he reviewed repeat EEG completed today showing slight improvement and no signs of seizure activity. After anticoagulation was held, patient underwent lumbar puncture 11/29/2023. Physical exam: Patient seen at the bedside this morning. Her mentation remains unchanged, minimally responsive only mumbling or moaning sounds occasionally. She will withdraw from pain. GCS 8. General: Nontoxic and appears stated age. Derm: Skin warm and dry, normal coloration for ethnicity. Head: Atraumatic, normocephalic and symmetric. Eyes: EOMs intact, no lid lag, and anicteric sclera. Pupils equal, round, and reactive to light. Mouth: no lip lesions, mucus membranes moist Cardiovascular: Irregularly irregular positive posterior tibial pulses bilaterally, and cap refill < 2 seconds. Lungs: Respirations even, regular, and unlabored on room air. Lungs CTA bilaterally, no rhonchi, no rales, no wheezing, and no accessory muscle usage. Abdominal: soft, nontender to palpation, no guarding, no appreciable organomegaly Ext: ROM intact. No gross muscle atrophy, no edema, no contractures Neuro/psych: Patient now only making unrecognizable noises/sounds with painful stimuli, she will withdraw from pain but is no longer alert/awake. GCS 8. Assessment and Plan of Care: Discussed pt with [facility], faxed over patient's EEG, CT reports and progress notes to [facility] for panel to review. Patient's case was presented and documentation reviewed by panel including neurologist and neurointerventionalist. [facility] did not accept transfer stating they were in agreement that based on facts presented pt's metabolic encephalopathy is believed to be resulting from cefepime induced neurotoxicity and that patient does not require continuous EEG monitoring and theirfore they do not accept pt or recommend transfer. Discussed this with neurologist, Dr. Sutotn whom is in agreement with keeping patient at our facility after he reviewed repeat EEG completed today showing slight improvement and no signs of seizure activity. Lumbar puncture completed. Will follow-up with results. Severe metabolic encephalopathy, unclear etiology possible seizure activity vs CVA vs Cefepime induced neurotoxicity vs other underlying neurological condition MRI brain concerning for microhemorrhage Citrobacter freundii UTI -Blood cultures showing no growth to date. -Urine culture was positive for Citrobacter freundii -Continue IV antibiotics Invanz 1 g daily and acyclovir 700 mg every 8 hours -Continue continuous telemetry monitoring with neurochecks every 4 hours, seizur e precautions and fall precautions. -MRI resulting showing reports of scattered areas of blooming artifact foci throughout the brain bilaterally suspicious for microhemorrhage throughout the brain, -Neurologist recommending discontinuation of aspirin and all anticoagulation at this time. -Orders also placed for keeping head of bed elevated at 30 degrees at all times. -EEG showing moderate to severe background slowing suggestive of severe toxic metabolic encephalopathy. -Continue Keppra 1500 mg IVPB every 12 hours and Vimpat 100 mg every 12 hours. -Follow-up on lumbar puncture results. -Infectious disease following. Severe right internal carotid artery stenosis -CTA neck reporting severe right internal carotid artery stenosis. -Eliquis held at this time secondary to possible LP, continue rectal aspirin and heparin for DVT prophylaxis. -Vascular surgery following, discussed plan of care with vascular surgery [employer] LEAD[employer] Diabetes mellitus with hyperglycemia -Continue glycemic protocol with NovoLog sliding scale and Levemir 15 units daily. Glucose checks changed to every 6 hours secondary to patient's current status. -Hemoglobin A1c 9.8% Lactic acidosis, resolved Hypomagnesemia -Magnesium 1.6 and replaced with 2 g magnesium sulfate IVPB x 1 dose.. Chronic atrial fibrillation -Eliquis held for LP, continue Cardizem infusion secondary to inability to take oral Cardizem and ventricular rates elevating into 110s to 120s Hypothyroidism -Oral levothyroxine 12.5 mcg being converted to IV -TSH normal findings at 1.670. COPD, not in acute exacerbation. Data and imaging reviewed: -Vital signs reviewed and stable. Blood pressure 162/84, HR 115, respiratory rate 16, temp 98.2 F, and SpO2 of 95% on room air. -Morning labs reviewed and stable. CBC and CMP unremarkable. Blood glucose 159. CODE STATUS: Full code DVT prophylaxis: Eliquis Anticipated discharge date: Clinical course to determine Anticipated discharge place: clinical course to determine Patient was seen independently by Nurse Pracitioner. This document was prepared using [employer] dictation software. Please allow for errors in rolled ham lacer, while rare they do occur. Hayden Isaac NP rendered care for this patient independently, reviewed the findings and plan as documented in the note above. I did not physically speak with or examine the patient on this date. Objective - Vital Signs Vital signs: Vital Signs Temp 97.9 F 11/29/23 03:00 Pulse 108 H 11/29/23 03:00 Resp 16 11/29/23 03:00 BP 117/76 11/29/23 03:00 Pulse Ox 93 L 11/29/23 03:00 FiO2 Intake & Output 11/28/23 11/29/23 11/29/23 18:59 06:59 18:59 Intake Total 10 Output Total 600 600 Balance -600 -590 Intake: IV 10 Invasive Line 5 10 Output: Urine 600 600 Other: Voiding Method Indwelling Catheter Indwelling Catheter - Labs CBC & Chem 7: 12/06/23 10:46 12/06/23 10:46 Labs: Abnormal Lab Results - Last 24 Hours (Table) 02/10/0911/28/23 11/29/23 Range/Units 11:45 16:22 00:01 POC Glucose (mg/dL) 167 H 154 H 171 H (70-110) mg/dL 11/29/23 Range/Units 05:52 POC Glucose (mg/dL) 151 H (70-110) mg/dL
[2023-11-29 18:27] LABS: Glucose,Whole Blood 156 mg/dL (70-110)
[2023-11-29] MEDS: MAGNESIUM SULFATE-D5W PMX 1 GM in DEXTROSE/WATER 1 100ML.BAG IVPB SCH (18:36)
[2023-11-29 23:57] LABS: Glucose,Whole Blood 165 mg/dL (70-110)
[2023-11-30 05:50] LABS: Glucose,Whole Blood 152 mg/dL (70-110)
[2023-11-30 08:38] LABS: HCT 33.9 % (34.0-46.0); MCHC 32.6 g/dL (31.0-37.0); Mean Platelet Volume 8.3; Platelet Count 224 k/uL (150-450); RBC 3.81 m/uL (3.80-5.40); RDW 14.4 % (11.5-15.5); WBC 7.7 k/uL (3.8-10.6)
[2023-11-30 09:27] LABS: ALT 11 U/L (4-34); AST 23 U/L (14-36); African American GFR (CKD) 49 (>60 ml/min/1.73 sqM); Albumin 3.1 g/dL (3.5-5.0); Alkaline Phosphatase 94 U/L (38-126); Anion Gap 7 mmol/L; Blood Urea Nitrogen 12 mg/dL (7-17); Calcium 8.7 mg/dL (8.4-10.2); Carbon Dioxide 24 mmol/L (22-30); Chloride 113 mmol/L (98-107); Glucose 153 mg/dL (74-99); Magnesium 2.1 mg/dL (1.6-2.3); Non-African American GFR(CKD) 42 (>60 ml/min/1.73 sqM); Potassium 3.7 mmol/L (3.5-5.1); Sodium 144 mmol/L (137-145); Total Protein 5.5 g/dL (6.3-8.2)
--- NOTE | 2023-11-30 10:59 | P.PN ---
Subjective Progress Note Date: 11/29/23 Principal diagnosis: Reason for follow-up is drug-resistant UTI Patient is a 83-year-old female with a past medical history significant for diabetes mellitus hypertension atrial fibrillation memory impairment presenting to the hospital for evaluation of weakness and mental status changes did have a positive UA some urinary symptoms concerning for symptomatic UTI urine culture subsequently came back positive with the drug- resistant Citrobacter. On today's evaluation that is 11/29/2023, Patient is afebrile , patient is currently on room air, the patient remains to be sleepy lethargic and unable to provide any history anesthesia completed LP this morning with reports currently pending no changes reported by the nursing staff. Patient did have a white count of 8.9, creatinine 0.89 Objective - Vital Signs Vital signs: Vital Signs Temp 97.9 F 11/29/23 03:00 Pulse 108 H 11/29/23 03:00 Resp 16 11/29/23 03:00 BP 117/76 11/29/23 03:00 Pulse Ox 93 L 11/29/23 03:00 FiO2 Intake & Output 11/28/23 11/29/23 11/29/23 18:59 06:59 18:59 Intake Total 10 Output Total 600 600 Balance -600 -590 Intake: IV 10 Invasive Line 5 10 Output: Urine 600 600 Other: Voiding Method Indwelling Catheter Indwelling Catheter - Exam GENERAL DESCRIPTION: An elderly female lying in bed in no distress RESPIRATORY SYSTEM: Unlabored breathing , decreased breath sounds at bases HEART: S1 S2 regular rate and rhythm , ABDOMEN: Soft , no tenderness EXTREMITIES: No edema feet - Labs CBC & Chem 7: 11/30/23 07:53 11/30/23 07:53 Labs: Abnormal Lab Results - Last 24 Hours (Table) 11/28/23 11/28/23 11/29/23 Range/Units 11:45 16:22 00:01 Chloride (98-107) mmol/L Carbon Dioxide (22-30) mmol/L Glucose (74-99) mg/dL POC Glucose (mg/dL) 167 H 154 H 171 H (70-110) mg/dL Total Protein (6.3-8.2) g/dL Albumin (3.5-5.0) g/dL 11/29/23 11/29/23 Range/Units 05:52 08:09 Chloride 111 H (98-107) mmol/L Carbon Dioxide 21 L (22-30) mmol/L Glucose 147 H (74-99) mg/dL POC Glucose (mg/dL) 151 H (70-110) mg/dL Total Protein 6.0 L (6.3-8.2) g/dL Albumin 3.3 L (3.5-5.0) g/dL Assessment and Plan (1) Penicillin allergy Current Visit: Yes Status: Acute Code(s): Z88.0 - ALLERGY STATUS TO PENICILLIN SNOMED Code(s): 04956459 (2) UTI (urinary tract infection) Current Visit: No Status: Acute Code(s): N39.0 - URINARY TRACT INFECTION, SITE NOT SPECIFIED SNOMED Code(s): 77051831 Plan: 1patient was in the hospital mental status changes and weakness which is likely multifactorial patient did have some urinary symptoms and now with evidence of drug-resistant bacteria in the urine likely responsible for some of her symptomatology 2-penicillin allergy that will limit the number of antibiotics safe to use 3-patient did have significant change in her mentation, cefepime was discontinued concerning for possible drug-related however the patient did have persistent mentation, the patient did have LP completed we will wait for the results patient is currently covered with Invanz and acyclovir adjust the medication further on the basis of LP results and clinical response Dictation was produced using [employer] dictation software. please excuse any grammatical, word or spelling errors. Time with Patient: Less than 30
--- NOTE | 2023-11-30 11:03 | P.PN ---
Subjective Progress Note Date: 11/30/23 Principal diagnosis: Reason for follow-up is drug-resistant UTI Patient is a 83-year-old female with a past medical history significant for diabetes mellitus hypertension atrial fibrillation memory impairment presenting to the hospital for evaluation of weakness and mental status changes did have a positive UA some urinary symptoms concerning for symptomatic UTI urine culture subsequently came back positive with the drug- resistant Citrobacter. On today's evaluation that is 11/30/2023,the patient remains to be afebrile, patient is currently on 2 L nasal cannula oxygen patient remains to be unresponsive and unable to provide any history no vomiting diarrhea or any other changes reported by the nursing staff. Patient did have white count of 7.7, creatinine is 1.19 patient did have LP glucose was 87 protein is normal at 57 white count was 6 Objective - Vital Signs Vital signs: Vital Signs Temp 97.9 F 11/30/23 03:58 Pulse 106 H 11/30/23 03:58 Resp 18 11/30/23 03:58 BP 162/83 11/30/23 03:58 Pulse Ox 96 11/30/23 03:58 FiO2 Intake & Output 11/29/23 11/30/23 11/30/23 18:59 06:59 18:59 Intake Total 127.167 Output Total 1000 Balance 127.167 -1000 Weight 90.718 kg Intake: IV 30 Invasive Line 5 30 Intake, IV Titration 97.167 Amount Diltiazem 125 mg In 97.167 Sodium Chloride 0.9% 100 ml @ 5 MG/HR 5 mls/hr IV .Q24H [facility] Rx#:[id number] Oral 0 Output: Urine 1000 Other: Voiding Method Indwelling Catheter Indwelling Catheter # Bowel Movements 0 - Exam GENERAL DESCRIPTION: An elderly female lying in bed in no distress RESPIRATORY SYSTEM: Unlabored breathing , decreased breath sounds at bases HEART: S1 S2 regular rate and rhythm , ABDOMEN: Soft , no tenderness EXTREMITIES: No edema feet - Labs CBC & Chem 7: 11/30/23 07:53 11/30/23 07:53 Labs: Abnormal Lab Results - Last 24 Hours (Table) 11/29/23 11/29/23 11/29/23 Range/Units 11:29 11:47 18:24 Hgb (11.4-16.0) gm/dL Hct (34.0-46.0) % Chloride (98-107) mmol/L Creatinine (0.52-1.04) mg/dL Glucose (74-99) mg/dL POC Glucose (mg/dL) 163 H 156 H (70-110) mg/dL Total Protein (6.3-8.2) g/dL Albumin (3.5-5.0) g/dL CSF Tot Nucleated Cells 6 H (0-5) u/L CSF Glucose 87 H (40-70) mg/dL 11/29/23 11/30/23 11/30/23 Range/Units 23:55 05:48 07:53 Hgb 11.0 L (11.4-16.0) gm/dL Hct 33.9 L (34.0-46.0) % Chloride (98-107) mmol/L Creatinine (0.52-1.04) mg/dL Glucose (74-99) mg/dL POC Glucose (mg/dL) 165 H 152 H (70-110) mg/dL Total Protein (6.3-8.2) g/dL Albumin (3.5-5.0) g/dL CSF Tot Nucleated Cells (0-5) u/L CSF Glucose (40-70) mg/dL 11/30/23 Range/Units 07:53 Hgb (11.4-16.0) gm/dL Hct (34.0-46.0) % Chloride 113 H (98-107) mmol/L Creatinine 1.19 H (0.52-1.04) mg/dL Glucose 153 H (74-99) mg/dL POC Glucose (mg/dL) (70-110) mg/dL Total Protein 5.5 L (6.3-8.2) g/dL Albumin 3.1 L (3.5-5.0) g/dL CSF Tot Nucleated Cells (0-5) u/L CSF Glucose (40-70) mg/dL Microbiology - Last 24 Hours (Table) 11/29/23 11:29 CSF Gram Stain - Preliminary Cerebral Spinal Fluid CSF Culture - Preliminary Assessment and Plan (1) Penicillin allergy Current Visit: Yes Status: Acute Code(s): Z88.0 - ALLERGY STATUS TO PENICILLIN SNOMED Code(s): 29816892 (2) UTI (urinary tract infection) Current Visit: No Status: Acute Code(s): N39.0 - URINARY TRACT INFECTION, SITE NOT SPECIFIED SNOMED Code(s): 00718742 Plan: 1patient was in the hospital mental status changes and weakness which is likely multifactorial patient did have some urinary symptoms and now with evidence of drug-resistant bacteria in the urine likely responsible for some of her symptomatology 2-penicillin allergy that will limit the number of antibiotics safe to use 3-patient did have significant change in her mentation, cefepime was discontinued concerning for possible drug-related however the patient did have persistent mentation, the patient did have LP completed, however did have a normal protein glucose and white count only 6 not suspicious for encephalitis or meningitis 4-we will continue with the Invanz however with slight worsening of her kidney function discontinue acyclovir to decrease risk of nephrotoxicity Dictation was produced using [employer] dictation software. please excuse any gramm atical, word or spelling errors. Time with Patient: Less than 30
[2023-11-30 11:24] LABS: Glucose,Whole Blood 161 mg/dL (70-110)
--- NOTE | 2023-11-30 15:04 | P.PN ---
Subjective Progress Note Date: 11/30/23 83-year-old female with a past medical history of chronic atrial fibrillation, insulin-dependent diabetes mellitus, hypertension, and memory impairment. She presented to the emergency department overnight secondary to complaints of confusion, hallucinations and generalized weakness. She underwent full evaluation upon arrival. Vital signs show BP 146/84, HR 97, RR 18, T 97.5 F, and SpO2 of 96% on room air. CBC unremarkable. BMP showing sodium of 132 and elevated glucose of 412. Lactic acid was elevated at 3.4. Urinalysis positive nitrite, and greater than [address] brain was negative for acute intracranial process showing age-related cerebral atrophy and moderately advanced chronic small vessel ischemic changes redemonstrated. EKG was completed showing atrial fibrillation with a controlled ventricular rate of 95 bpm. Patient was started on IV antibiotics and admitted under services with ID consult. Patient was noted to have episodes of visual hallucinations and confusion concerning for delirium secondary to infection. Urine culture positive for Citrobacter freundii which was resistant to Rocephin initially being given for acute cystitis. Rocephin discontinued and patient placed on cefepime per culture and sensitivity report. Patient's mentation was improving and we were working towards discharging to custodial facility. On the morning of 11/25/2023 mentation significantly changed. Patient was found to have significant muscular tics/myoclonic jerking movements, puffing of cheeks and lips and now nonverbal. Order placed for stat CT brain, CTA head and neck, blood glucose check and EEG. [id number] glucose at this time is 186. 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 CTA neck revealed severe proximal right internal carotid artery stenosis. Started patient on aspirin 81 mg daily and increased atorvastatin to 80 mg daily. MRI brain scattered microhemorrhage correlate for cerebral amyloid angiopathy. Cefepime discontinued and patient started on Invanz for possible neurotoxicity and Acyclovir for meningitis/encephalitis. EEG was reported to be severely abnormal and per neurology request giving patient a loading dose of Keppra 1000 mg and starting patient on Keppra 500 mg twice daily. Initial plans for transfer for continuous EEG monitoring. [facility] did not accept transfer, likely a metabolic encephalopathy believed to be resulting from cefepime induced neurotoxicity and patient does not require continuous EEG monitoring. Patient underwent lumbar puncture 11/29/2023. CSF fluid analysis did not indicate infection, Acyclovir was discontinued. 11/30 Patient was seen and examined. Hard to arrouse. CBC Hg 11, Hct 33.9. BMP Cl 113, Cr 1.19, glu 153, alb 3.1. General: Nontoxic and appears stated age. Derm: Skin warm and dry, normal coloration for ethnicity. Head: Atraumatic, normocephalic and symmetric. Eyes: no lid lag, and anicteric sclera. Cardiovascular: Irregularly irregular Lungs: Respirations even, regular, and unlabored on room air. Lungs CTA bilaterally, no rhonchi, no rales, no wheezing, and no accessory muscle usage. Ext: ROM intact. No gross muscle atrophy, no edema, no contractures Neuro/psych: Patient now only making unrecognizable noises/sounds with painful stimuli, she will withdraw from pain but is no longer alert/awake. GCS 8. Based on my assessment of this patient, this patient meets a high complexity level of care. Patient has an acute diagnosis of acute metabolic encephalopathy due to UTI sepsis now complicated by Cefepime toxicitiy that poses a threat to life or bodily function. Severe metabolic encephalopathy: Unclear etiology. Possible seizure activity vs CVA vs Cefepime induced neurotoxicity vs other underlying neurological condition. Continue Keppra 1500 mg IVPB every 12 hours and Vimpat 100 mg every 12 hours. MRI brain concerning for microhemorrhage due to amyloid angiopathy: Discussed with Dr. Sutton, not the cause of her altered mentation. Citrobacter freundii UTI: Invanz 1g IV QD. Severe right internal carotid artery stenosis: Carotid duplex shows no significant stenosis. No intervention per Vscular Sx. Diabetes mellitus with hyperglycemia: NovoLog sliding scale and Levemir 15 units daily. Accuchecks Q6H. Hemoglobin A1c 9.8%. Atrial fibrillation with RVR: Cardizem at 5 mg/hr. No AC due to findings on MRI brain. Hypothyroidism: Synthroid 9.375 mcg IV QD. CODE STATUS: FULL CODE. DVT Prophylaxis: Heparin SQ. GI Prophylaxis: Protonix PO Designated medical POA if patient is not able to make medical decisions for themselves: I have reviewed the following research consultant notes: ID note. I have reviewed the results of the following tests: CBC. BMP. I have ordered the following tests: CBC. BMP. I have discussed the care of this patient with the following independent historian: I have independently interpreted the following test below: I have discussed the management of this patient with the following physician: Discussed with Dr. Sutton. Objective - Vital Signs Vital signs: Vital Signs Temp 98.1 F 11/30/23 08:00 Pulse 103 H 11/30/23 12:00 Resp 18 11/30/23 12:00 BP 175/93 11/30/23 08:00 Pulse Ox 96 11/30/23 12:00 FiO2 Intake & Output 11/29/23 11/30/23 11/30/23 18:59 06:59 18:59 Intake Total 127.167 117.417 Output Total 1000 Balance 127.167 -1000 117.417 Weight 90.718 kg Intake: IV 30 Invasive Line 5 30 Intake, IV Titration 97.167 117.417 Amount Diltiazem 125 mg In 97.167 117.417 Sodium Chloride 0.9% 100 ml @ 5 MG/HR 5 mls/hr IV .Q24H [facility] Rx#:[id number] Oral 0 Output: Urine 1000 Other: Voiding Method Indwelling Catheter Indwelling Catheter Indwelling Catheter # Bowel Movements 0 - Labs CBC & Chem 7: 11/30/23 07:53 11/30/23 07:53 Labs: Abnormal Lab Results - Last 24 Hours (Table) 11/29/23 11/29/23 11/30/23 Range/Units 18:24 23:55 05:48 Hgb (11.4-16.0) gm/dL Hct (34.0-46.0) % Chloride (98-107) mmol/L Creatinine (0.52-1.04) mg/dL Glucose (74-99) mg/dL POC Glucose (mg/dL) 156 H 165 H 152 H (70-110) mg/dL Total Protein (6.3-8.2) g/dL Albumin (3.5-5.0) g/dL 11/30/23 11/30/23 11/30/23 Range/Units 07:53 07:53 11:22 Hgb 11.0 L (11.4-16.0) gm/dL Hct 33.9 L (34.0-46.0) % Chloride 113 H (98-107) mmol/L Creatinine 1.19 H (0.52-1.04) mg/dL Glucose 153 H (74-99) mg/dL POC Glucose (mg/dL) 161 H (70-110) mg/dL Total Protein 5.5 L (6.3-8.2) g/dL Albumin 3.1 L (3.5-5.0) g/dL Microbiology - Last 24 Hours (Table) 11/29/23 11:29 CSF Gram Stain - Preliminary Cerebral Spinal Fluid CSF Culture - Preliminary
--- NOTE | 2023-11-30 15:09 | P.PN ---
Subjective Progress Note Date: 11/30/23 I am following-up with patient and she continues to be severely drowsy. Objective - Vital Signs Vital signs: Vital Signs Temp 98.1 F 11/30/23 08:00 Pulse 103 H 11/30/23 12:00 Resp 18 11/30/23 12:00 BP 175/93 11/30/23 08:00 Pulse Ox 96 11/30/23 12:00 FiO2 Intake & Output 11/29/23 11/30/23 11/30/23 18:59 06:59 18:59 Intake Total 127.167 117.417 Output Total 1000 Balance 127.167 -1000 117.417 Weight 90.718 kg Intake: IV 30 Invasive Line 5 30 Intake, IV Titration 97.167 117.417 Amount Diltiazem 125 mg In 97.167 117.417 Sodium Chloride 0.9% 100 ml @ 5 MG/HR 5 mls/hr IV .Q24H [facility] Rx#:[id number] Oral 0 Output: Urine 1000 Other: Voiding Method Indwelling Catheter Indwelling Catheter Indwelling Catheter # Bowel Movements 0 - Exam General: Lying in bed and is not in acute distress. HENT: Was resisting upon flexing her neck. Neuro: Severely drowsy and with painful stimuli and would briefly opens eyes. would say "Ouch, Ouch". Otherwise, not verbalizing or following commands. Primary gaze is midline. Pupils are 3-4mm and reactive to light. No facial weakness. No myoclonic jerks or twitches. She would grab on hand rail on right and left and localizes to pain uppers. - Labs CBC & Chem 7: 11/30/23 07:53 11/30/23 07:53 Labs: Abnormal Lab Results - Last 24 Hours (Table) 11/29/23 11/29/23 11/30/23 Range/Units 18:24 23:55 05:48 Hgb (11.4-16.0) gm/dL Hct (34.0-46.0) % Chloride (98-107) mmol/L Creatinine (0.52-1.04) mg/dL Glucose (74-99) mg/dL POC Glucose (mg/dL) 156 H 165 H 152 H (70-110) mg/dL Total Protein (6.3-8.2) g/dL Albumin (3.5-5.0) g/dL 11/30/23 11/30/23 11/30/23 Range/Units 07:53 07:53 11:22 Hgb 11.0 L (11.4-16.0) gm/dL Hct 33.9 L (34.0-46.0) % Chloride 113 H (98-107) mmol/L Creatinine 1.19 H (0.52-1.04) mg/dL Glucose 153 H (74-99) mg/dL POC Glucose (mg/dL) 161 H (70-110) mg/dL Total Protein 5.5 L (6.3-8.2) g/dL Albumin 3.1 L (3.5-5.0) g/dL Microbiology - Last 24 Hours (Table) 11/29/23 11:29 CSF Gram Stain - Preliminary Cerebral Spinal Fluid CSF Culture - Preliminary Assessment and Plan Assessment: * Altered mental status and patient has developed acute muteness, with myoclonic twitches. Suspect toxic metabolic, underlying UTI and also confusion seems possible medication induced (Cefepime). MRI Brain is negative for acute or subacute process. CSF study is negative (nucleated cells of 6). * MRI Brain: It showed scattered bilateral foci of blooming artifact suspicious for microhemorrhage throughout the brain, correlate for cerebral amyloid angio celina. No evidence of intracranial mass, acute/subacute infarct or abnormal enhancement. Nonspecific white matter changes likely related to small vessel ischemic disease. This is not cause of her confusion and likely had this before presenting to hospital. * Acute Citrobacter UTI. Patient was on cefepime, now switched to Invanz. * RIght ICA stenosis that is severe on CTA but not significant on carotid duplex and vascular feels asymptomatic. * Atrial fibrillation, currently on Eliquis * Hypertension * Diabetes Plan: * CTA of head and neck revealed severe proximal right ICA stenosis. Patient started on aspirin 81 mg daily. Patient also on Eliquis 5 mg twice a day but is on hold for possible lumbar puncture. * Check carotid Doppler: less than 50% stenosis of bilateral carotid bifurcation. Nonvisulaization of the left vertebral artery. vascular surgery felt asymptomatic right ICA. * MRI Brain: It showed scattered bilateral foci of blooming artifact suspicious for microhemorrhage throughout the brain, correlate for cerebral amyloid angiopathy. No evidence of intracranial mass, acute/subacute infarct or abnormal enhancement. Nonspecific white matter changes likely related to small vessel ischemic disease. I spoke with the patient the primary team [employer] and notified her the microhemorrhages for possible cerebral amyloid angiopathy probably was day or even prior to her admission and that is not the cause for confusion. Need to reconsider anticoagulation on the long-term especially with the increased risk for bleed especially with amyloid. But if felt the benefit outweigh risk then resume anticoagulation. Will defer the use of anticoagulation to primary team on correction. * Initial EEG 11/26/2023 was reported abnormal due to presence of diffuse bilaterally symmetric high amplitude frontally maximal sharp-appearing waves seen at 2-3 Hz, suggestive of underlying cortical irritability and tendency for seizures. Intermittent myoclonic jerks weren't noticed with presence of high amplitude myogenic activity lasting for about 1-2 seconds. After the Ativan 1 mg IV push was given, this high amplitude sharp-appearing waves dissipated along with myoclonic twitches. Otherwise the background was diffusely slow, suggestive of severe encephalopathy. Overall, this EEG may suggest myoclonic status, which was aborted with 1 mg Ativan. Clinical c orrelation and follow-up EEG recommended. * Patient on Keppra 1500 mg twice a day then started on Vimpat empirically 100mg bid both by Dr. Pino. Since patient continues to be encephalopathy and no seizure or discharges on EEG, therefore I will go down on Keppra to 1gm bid and if still encephalopathic will go down to 500mg bid. * Repeat EEG performed 11/27/2023 reported as revealed persistently abnormal EEG with presence of background slowing of moderate to severe degree, suggestive of toxic metabolic encephalopathy. Presence of intermittent high amplitude frontally predominant waves, which at times appears triphasic type in quality but sometimes they become rhythmic at 1-2 Hz. Overall this is consistent with severe encephalopathy. When compared to the EEG from 09/25/2024, there is overall improvement in the background and much less fr equency of sharp-appearing waves. Recommend continuous EEG monitoring for further evaluation. * Dr. Pino empirically started Vimpat 100 mg IV twice a day. * Repeat prolonged routine EEG on 11/28/2023: This is an abnormal prolonged routine EEG. The background slowing is suggestive of moderate encephalopathy. There is no focal slowing, epileptiform discharge or seizure on the EEG. * CSF study: clear, colorless, nucleated cells is 6 (normal is 0-5), glucose 87, protein is 57 She does not have meningitis or encephalitis from CSF study. CSF gram stain is negative. * Discussed with primary team in detail multiple times today and her nurse. Time with Patient: Less than 30
[2023-11-30 16:24] LABS: Glucose,Whole Blood 156 mg/dL (70-110)
[2023-11-30 20:34] LABS: Glucose,Whole Blood 151 mg/dL (70-110)
[2023-11-30] MEDS ORDERED: HEPARIN SODIUM,PORCINE 5,000 UNIT/ML 1 ML VIAL SQ SCH (21:00)
[2023-12-01 00:10] LABS: Glucose,Whole Blood 137 mg/dL (70-110)
[2023-12-01] MEDS: levETIRAcetam IV 500 MG/5 ML VIAL IVP SCH ×2 (02:13→20:34)
[2023-12-01 05:45] LABS: Glucose,Whole Blood 142 mg/dL (70-110)
[2023-12-01 10:30] LABS: HCT 36.6 % (34.0-46.0); HGB 11.7 gm/dL (11.4-16.0); Hypochromasia Moderate; MCH 29.2 pg (25.0-35.0); MCHC 31.9 g/dL (31.0-37.0); MCV 91.5 fL (80.0-100.0); Mean Platelet Volume 8.9; Platelet Count 194 k/uL (150-450); RBC 4.01 m/uL (3.80-5.40); RDW 14.4 % (11.5-15.5); WBC 5.3 k/uL (3.8-10.6)
[2023-12-01 10:50] LABS: African American GFR (CKD) 85 (>60 ml/min/1.73 sqM); Anion Gap 10 mmol/L; Blood Urea Nitrogen 10 mg/dL (7-17); Calcium 8.7 mg/dL (8.4-10.2); Carbon Dioxide 22 mmol/L (22-30); Chloride 115 mmol/L (98-107); Glucose 161 mg/dL (74-99); Non-African American GFR(CKD) 74 (>60 ml/min/1.73 sqM); Potassium 3.4 mmol/L (3.5-5.1); Sodium 147 mmol/L (137-145)
[2023-12-01 11:26] LABS: Glucose,Whole Blood 141 mg/dL (70-110)
--- NOTE | 2023-12-01 12:52 | P.PN ---
Subjective Progress Note Date: 12/01/23 Principal diagnosis: Reason for follow-up is drug-resistant UTI Patient is a 83-year-old female with a past medical history significant for diabetes mellitus hypertension atrial fibrillation memory impairment presenting to the hospital for evaluation of weakness and mental status changes did have a positive UA some urinary symptoms concerning for symptomatic UTI urine culture subsequently came back positive with the drug- resistant Citrobacter. On today's evaluation that is 12/01/2023,the patient remains to be afebrile, patient is on 2 L nasal cannula supplemental oxygen patient remains to be lethargic but responsive and did not answer any question vomiting diarrhea or any other changes reported by the nursing staff. Patient had white count of 5.3, creatinine 0.75 Objective - Vital Signs Vital signs: Vital Signs Temp 97.9 F 12/01/23 12:00 Pulse 102 H 12/01/23 12:00 Resp 20 12/01/23 12:00 BP 193/96 12/01/23 12:00 Pulse Ox 97 12/01/23 12:00 FiO2 Intake & Output 11/30/23 12/01/23 12/01/23 18:59 06:59 18:59 Intake Total 117.417 92.25 Output Total 1425 500 Balance 117.417 -1332.75 -500 Intake: Intake, IV Titration 117.417 92.25 Amount Diltiazem 125 mg In 117.417 92.25 Sodium Chloride 0.9% 100 ml @ 5 MG/HR 5 mls/hr IV .Q24H [facility] Rx#:[id number] Output: Urine 1425 500 Other: Voiding Method Indwelling Catheter Indwelling Catheter Indwelling Catheter - Exam GENERAL DESCRIPTION: An elderly female lying in bed in no distress RESPIRATORY SYSTEM: Unlabored breathing , decreased breath sounds at bases HEART: S1 S2 regular rate and rhythm , ABDOMEN: Soft , no tenderness EXTREMITIES: No edema feet - Labs CBC & Chem 7: 12/01/23 09:30 12/01/23 09:30 Labs: Abnormal Lab Results - Last 24 Hours (Table) 11/30/23 11/30/23 12/01/23 Range/Units 16:22 20:31 00:08 Sodium (137-145) mmol/L Potassium (3.5-5.1) mmol/L Chloride (98-107) mmol/L Glucose (74-99) mg/dL POC Glucose (mg/dL) 156 H 151 H 137 H (70-110) mg/dL 12/01/23 12/01/23 12/01/23 Range/Units 05:44 09:30 11:25 Sodium 147 H (137-145) mmol/L Potassium 3.4 L (3.5-5.1) mmol/L Chloride 115 H (98-107) mmol/L Glucose 161 H (74-99) mg/dL POC Glucose (mg/dL) 142 H 141 H (70-110) mg/dL Microbiology - Last 24 Hours (Table) 11/29/23 11:29 CSF Gram Stain - Preliminary Cerebral Spinal Fluid CSF Culture - Preliminary Assessment and Plan (1) Penicillin allergy Current Visit: Yes Status: Acute Code(s): Z88.0 - ALLERGY STATUS TO PENICILLIN SNOMED Code(s): 26721355 (2) UTI (urinary tract infection) Current Visit: No Status: Acute Code(s): N39.0 - URINARY TRACT INFECTION, SITE NOT SPECIFIED SNOMED Code(s): 61627516 Plan: 1patient was in the hospital mental status changes and weakness which is likely multifactorial patient did have some urinary symptoms and now with evidence of drug-resistant bacteria in the urine likely responsible for some of her symptomatology 2-penicillin allergy that will limit the number of antibiotics safe to use 3-patient did have significant change in her mentation, cefepime was discontinued concerning for possible drug-related however patient has received only 2-3 doses of cefepime the patient did have persistent mentation, the patient did have LP completed, however did have a normal protein glucose and white count only 6 not suspicious for encephalitis or meningitis 4-we will continue with the Invanz for the UTI await further recommendation from neurology Dictation was produced using [employer] dictation software. please excuse any grammatical, word or spelling errors. Time with Patient: Less than 30
--- NOTE | 2023-12-01 13:15 | P.PN ---
Subjective Progress Note Date: 12/01/23 83-year-old female with a past medical history of chronic atrial fibrillation, insulin-dependent diabetes mellitus, hypertension, and memory impairment. She presented to the emergency department overnight secondary to complaints of confusion, hallucinations and generalized weakness. She underwent full evaluation upon arrival. Vital signs show BP 146/84, HR 97, RR 18, T 97.5 F, and SpO2 of 96% on room air. CBC unremarkable. BMP showing sodium of 132 and elevated glucose of 412. Lactic acid was elevated at 3.4. Urinalysis positive nitrite, and greater than [address] brain was negative for acute intracranial process showing age-related cerebral atrophy and moderately advanced chronic small vessel ischemic changes redemonstrated. EKG was completed showing atrial fibrillation with a controlled ventricular rate of 95 bpm. Patient was started on IV antibiotics and admitted under services with ID consult. Patient was noted to have episodes of visual hallucinations and confusion concerning for delirium secondary to infection. Urine culture positive for Citrobacter freundii which was resistant to Rocephin initially being given for acute cystitis. Rocephin discontinued and patient placed on cefepime per culture and sensitivity report. Patient's mentation was improving and we were working [facility]. On the morning of 11/25/2023 mentation significantly changed. Patient was found to have significant muscular tics/myoclonic jerking movements, puffing of cheeks and lips and now nonverbal. Order placed for stat CT brain, CTA head and neck, blood glucose check and EEG. Xnloq-ck-eris glucose at this time is 186. 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 CTA neck revealed severe proximal right internal carotid artery stenosis. Started patient on aspirin 81 mg daily and increased atorvastatin to 80 mg daily. MRI brain scattered microhemorrhage correlate for cerebral amyloid angiopathy. Cefepime discontinued and patient started on Invanz for possible neurotoxicity and Acyclovir for meningitis/encephalitis. EEG was reported to be severely abnormal and per neurology request giving patient a loading dose of Keppra 1000 mg and starting patient on Keppra 500 mg twice daily. Initial plans for transfer for continuous EEG monitoring. [facility] did not accept transfer, likely a metabolic encephalopathy believed to be resulting from cefepime induced neurotoxicity and patient does not require continuous EEG monitoring. Patient underwent lumbar puncture 11/29/2023. CSF fluid analysis did not indicate infection, Acyclovir was discontinued. 11/30 Patient was seen and examined. Hard to arrouse. CBC Hg 11, Hct 33.9. BMP Cl 113, Cr 1.19, glu 153, alb 3.1. 12/01 Patient was seen and examined. Hard to arrouse but appears to be following commands when examined with Dr. Sutton. Discussed with Dr. Aldana, condition likely not due to Cefepime toxicity. Discussed with Dr. Sutton, possible oversedation from antiepileptic medication, dose of Keppra will be decreased from 1500 mg IV BID to 1000 mg IV BID. CBC unremarkable. BMP Na 147, K 3.4, Cl 115, glu 161. General: Nontoxic and appears stated age. Derm: Skin warm and dry, normal coloration for ethnicity. Head: Atraumatic, normocephalic and symmetric. Eyes: no lid lag, and anicteric sclera. Cardiovascular: Irregularly irregular Lungs: Respirations even, regular, and unlabored on room air. Lungs CTA bilaterally, no rhonchi, no rales, no wheezing, and no accessory muscle usage. Ext: ROM intact. No gross muscle atrophy, no edema, no contractures Neuro/psych: Able to follow simple commands (thumbs up, wiggle toes) however appears sedated. Based on my assessment of this patient, this patient meets a high complexity level of care. Patient has an acute diagnosis of acute metabolic encephalopathy due to UTI sep sis now complicated by Cefepime toxicitiy that poses a threat to life or bodily function. Severe metabolic encephalopathy: Unclear etiology. Possible seizure activity vs CVA vs Cefepime induced neurotoxicity vs other underlying neurological condition. Keppra decreased to 1000 mg IVPB every 12 hours. Vimpat 100 mg every 12 hours. Hypernatremia: Switch NS to 1/2 NS at 50 cc/hr. MRI brain concerning for microhemorrhage due to amyloid angiopathy: Discussed with Dr. Sutton, not the cause of her altered mentation. Citrobacter freundii UTI: Invanz 1g IV QD. Severe right internal carotid artery stenosis: Carotid duplex shows no significant stenosis. No intervention per Vascular Sx. Diabetes mellitus with hyperglycemia: NovoLog sliding scale and Levemir 15 units daily. Accuchecks Q6H. Hemoglobin A1c 9.8%. Atrial fibrillation with RVR: Cardizem at 5 mg/hr. No AC due to findings on MRI brain. Hypothyroidism: Synthroid 9.375 mcg IV QD. CODE STATUS: FULL CODE. DVT Prophylaxis: Heparin SQ. GI Prophylaxis: Protonix PO Designated medical POA if patient is not able to make medical decisions for themselves: I have reviewed the following artist consultant notes: ID note. I have reviewed the results of the following tests: CBC. BMP. I have ordered the following tests: BMP. I have discussed the care of this patient with the following independent historian: RN. I have independently interpreted the following test below: I have discussed the management of this patient with the following physician: Discussed with Dr. Sutton and Dr Aldana. Objective - Vital Signs Vital signs: Vital Signs Temp 97.9 F 12/01/23 12:00 Pulse 102 H 12/01/23 12:00 Resp 20 12/01/23 12:00 BP 193/96 12/01/23 12:00 Pulse Ox 97 12/01/23 12:00 FiO2 Intake & Output 11/30/23 12/01/23 12/01/23 18:59 06:59 18:59 Intake Total 117.417 92.25 Output Total 1425 500 Balance 117.417 -1332.75 -500 Intake: Intake, IV Titration 117.417 92.25 Amount Diltiazem 125 mg In 117.417 92.25 Sodium Chloride 0.9% 100 ml @ 5 MG/HR 5 mls/hr IV .Q24H [facility] Rx#:[id number] Output: Urine 1425 500 Other: Voiding Method Indwelling Catheter Indwelling Catheter Indwelling Catheter - Labs CBC & Chem 7: 12/01/23 09:30 12/01/23 09:30 Labs: Abnormal Lab Results - Last 24 Hours (Table) 11/30/23 11/30/23 12/01/23 Range/Units 16:22 20:31 00:08 Sodium (137-145) mmol/L Potassium (3.5-5.1) mmol/L Chloride (98-107) mmol/L Glucose (74-99) mg/dL POC Glucose (mg/dL) 156 H 151 H 137 H (70-110) mg/dL 12/01/23 12/01/23 12/01/23 Range/Units 05:44 09:30 11:25 Sodium 147 H (137-145) mmol/L Potassium 3.4 L (3.5-5.1) mmol/L Chloride 115 H (98-107) mmol/L Glucose 161 H (74-99) mg/dL POC Glucose (mg/dL) 142 H 141 H (70-110) mg/dL Microbiology - Last 24 Hours (Table) 11/29/23 11:29 CSF Gram Stain - Preliminary Cerebral Spinal Fluid CSF Culture - Preliminary
[2023-12-01] MEDS: SODIUM CHLORIDE 0.45% 1,000 ML IV SCH (13:21)
--- NOTE | 2023-12-01 14:42 | P.PN ---
Subjective Progress Note Date: 12/01/23 I am following-up with patient and per primary attending is about the same as yesterday. Objective - Vital Signs Vital signs: Vital Signs Temp 97.9 F 12/01/23 12:00 Pulse 102 H 12/01/23 12:00 Resp 20 12/01/23 12:00 BP 193/96 12/01/23 12:00 Pulse Ox 97 12/01/23 12:00 FiO2 Intake & Output 11/30/23 12/01/23 12/01/23 18:59 06:59 18:59 Intake Total 117.417 92.25 36.250 Output Total 1425 500 Balance 117.417 -1332.75 -463.750 Intake: Intake, IV Titration 117.417 92.25 36.250 Amount Diltiazem 125 mg In 117.417 92.25 36.250 Sodium Chloride 0.9% 100 ml @ 5 MG/HR 5 mls/hr IV .Q24H [facility] Rx#:[id number] Output: Urine 1425 500 Other: Voiding Method Indwelling Catheter Indwelling Catheter Indwelling Catheter - Exam General: Lying in bed and does not appear in acute distress. Neuro: Is moderately to severely drowsy but is awakeable to voice. She is more arouseable today compared to yesterday. She is following simple commands (thumbs up, smiling, attempting to stick tongue out and wiggling toes). No verbalizing. Pupils are 3mm and reactive to light. Is tracking right and left. Smile is symetrical. Showed thumbs up on right hand and wiggling bilateral toes. No myoclonic jerks or body jerks. - Labs CBC & Chem 7: 12/01/23 09:30 12/01/23 09:30 Labs: Abnormal Lab Results - Last 24 Hours (Table) 11/30/23 11/30/23 12/01/23 Range/Units 16:22 20:31 00:08 Sodium (137-145) mmol/L Potassium (3.5-5.1) mmol/L Chloride (98-107) mmol/L Glucose (74-99) mg/dL POC Glucose (mg/dL) 156 H 151 H 137 H (70-110) mg/dL 12/01/23 12/01/23 12/01/23 Range/Units 05:44 09:30 11:25 Sodium 147 H (137-145) mmol/L Potassium 3.4 L (3.5-5.1) mmol/L Chloride 115 H (98-107) mmol/L Glucose 161 H (74-99) mg/dL POC Glucose (mg/dL) 142 H 141 H (70-110) mg/dL Assessment and Plan Assessment: * Altered mental status and patient has developed acute muteness, with myoclonic twitches. Suspect toxic metabolic, underlying UTI and also confusion seems possible medication induced (Cefepime) and is on high dose of antiepileptics. MRI Brain is negative for acute or subacute process. CSF study is negative (nucleated cells of 6)--today mentation is better compared to past 4 days I had her. * MRI Brain: It showed scattered bilateral foci of blooming artifact suspicious for microhemorrhage throughout the brain, correlate for cerebral amyloid angiopathy. No evidence of intracranial mass, acute/subacute infarct or abnormal enhancement. Nonspecific white matter changes likely related to small vessel ischemic disease. This is not cause of her confusion and likely had this before presenting to hospital. * Acute Citrobacter UTI. Patient was on cefepime, now switched to Invanz. * RIght ICA stenosis that is severe on CTA but not significant on carotid duplex and vascular feels asymptomatic. * Atrial fibrillation, currently on Eliquis * Hypertension * Diabetes Plan: * CTA of head and neck revealed severe proximal right ICA stenosis. Patient started on aspirin 81 mg daily. Patient also on Eliquis 5 mg twice a day but is on hold for possible lumbar puncture. * Check carotid Doppler: less than 50% stenosis of bilateral carotid bifurcation. Nonvisulaization of the left vertebral artery. vascular surgery felt asymptomatic right ICA. * MRI Brain: It showed scattered bilateral foci of blooming artifact suspicious for microhemorrhage throughout the brain, correlate for cerebral amyloid an giopathy. No evidence of intracranial mass, acute/subacute infarct or abnormal enhancement. Nonspecific white matter changes likely related to small vessel ischemic disease. I spoke with the patient the primary team [employer] and notified her the microhemorrhages for possible cerebral amyloid angiopathy probably was day or even prior to her admission and that is not the cause for confusion. Need to reconsider anticoagulation on the long-term especially with the increased risk for bleed especially with amyloid. But if felt the benefit outweigh risk then resume anticoagulation. Will defer the use of anticoagulation to primary team on long term care pharmacist. * Initial EEG 11/26/2023 was reported abnormal due to presence of diffuse bilaterally symmetric high amplitude frontally maximal sharp-appearing waves seen at 2-3 Hz, suggestive of underlying cortical irritability and tendency for seizures. Intermittent myoclonic jerks weren't noticed with presence of high amplitude myogenic activity lasting for about 1-2 seconds. After the Ativan 1 mg IV push was given, this high amplitude sharp-appearing waves dissipated along with myoclonic twitches. Otherwise the background was diffusely slow, suggestive of severe encephalopathy. Overall, this EEG may suggest myoclonic status, which was aborted with 1 mg Ativan. Clinical correlation and follow-up EEG recommended. * Patient on Keppra 1500 mg twice a day then started on Vimpat empirically 100mg bid both by Dr. Pino. Yesterday I went down on Keppra to 1gm bid and no myoclonic jerks and patient is more awakeable and responsive today. I will go down further to 500mg bid. * Repeat EEG performed 11/27/2023 reported as revealed persistently abnormal EEG with presence of background slowing of moderate to severe degree, suggestive of toxic metabolic encephalopathy. Presence of intermittent high amplitude frontally predominant waves, which at times appears triphasic type in quality but sometimes they become rhythmic at 1-2 Hz. Overall this is consistent with severe encephalopathy. When compared to the EEG from 09/25/2024, there is overall improvement in the background and much less freq uency of sharp-appearing waves. Recommend continuous EEG monitoring for further evaluation. * Dr. Pino empirically started Vimpat 100 mg IV twice a day. * Repeat prolonged routine EEG on 11/28/2023: This is an abnormal prolonged routine EEG. The background slowing is suggestive of moderate encephalopathy. There is no focal slowing, epileptiform discharge or seizure on the EEG. * CSF study: clear, colorless, nucleated cells is 6 (normal is 0-5), glucose 87, protein is 57 She does not have meningitis or encephalitis from CSF study. CSF gram stain is negative. * Discussed with primary team in detail multiple times today. Time with Patient: Less than 30
[2023-12-01 18:02] LABS: Glucose,Whole Blood 152 mg/dL (70-110)
[2023-12-02 00:25] LABS: Glucose,Whole Blood 116 mg/dL (70-110)
[2023-12-02 05:59] LABS: Glucose,Whole Blood 140 mg/dL (70-110)
[2023-12-02 09:37] LABS: African American GFR (CKD) >90 (>60 ml/min/1.73 sqM); Anion Gap 10 mmol/L; Blood Urea Nitrogen 10 mg/dL (7-17); Calcium 8.8 mg/dL (8.4-10.2); Carbon Dioxide 25 mmol/L (22-30); Chloride 109 mmol/L (98-107); Glucose 143 mg/dL (74-99); Non-African American GFR(CKD) 83 (>60 ml/min/1.73 sqM); Potassium 3.1 mmol/L (3.5-5.1); Sodium 144 mmol/L (137-145)
--- NOTE | 2023-12-02 11:55 | P.PN ---
Subjective Progress Note Date: 12/02/23 83-year-old female with a past medical history of chronic atrial fibrillation, insulin-dependent diabetes mellitus, hypertension, and memory impairment. She presented to the emergency department overnight secondary to complaints of confusion, hallucinations and generalized weakness. She underwent full evaluation upon arrival. Vital signs show BP 146/84, HR 97, RR 18, T 97.5 F, and SpO2 of 96% on room air. CBC unremarkable. BMP showing sodium of 132 and elevated glucose of 412. Lactic acid was elevated at 3.4. Urinalysis positive nitrite, and greater than [address] brain was negative for acute intracranial process showing age-related cerebral atrophy and moderately advanced chronic small vessel ischemic changes redemonstrated. EKG was completed showing atrial fibrillation with a controlled ventricular rate of 95 bpm. Patient was started on IV antibiotics and admitted under services with ID consult. Patient was noted to have episodes of visual hallucinations and confusion concerning for delirium secondary to infection. Urine culture positive for Citrobacter freundii which was resistant to Rocephin initially being given for acute cystitis. Rocephin discontinued and patient placed on cefepime per culture and sensitivity report. Patient's mentation was improving and we were working towards discharging to group home facility. On the morning of 11/25/2023 mentation significantly changed. Patient was found to have significant muscular tics/myoclonic jerking movements, puffing of cheeks and lips and now nonverbal. Order placed for stat CT brain, CTA head and neck, blood glucose check and EEG. [id number] glucose was 186. 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 CTA neck revealed severe proximal right internal carotid artery stenosis. Started patient on aspirin 81 mg daily and increased atorvastatin to 80 mg daily. MRI brain scattered microhemorrhage correlate for cerebral amyloid angiopathy. Cefepime discontinued and patient started on Invanz for possible neurotoxicity and Acyclovir for meningitis/encephalitis. EEG was reported to be severely abnormal and per neurology request giving patien t a loading dose of Keppra 1000 mg and starting patient on Keppra 500 mg twice daily. Initial plans for transfer for continuous EEG monitoring. [facility] did not accept transfer, likely a metabolic encephalopathy believed to be resulting from cefepime induced neurotoxicity and patient does not require continuous EEG monitoring. Patient underwent lumbar puncture 11/29/2023. CSF fluid analysis did not indicate infection, Acyclovir was discontinued. 11/30 Patient was seen and examined. Hard to arrouse. CBC Hg 11, Hct 33.9. BMP Cl 113, Cr 1.19, glu 153, alb 3.1. 12/01 Patient was seen and examined. Hard to arrouse but appears to be following commands when examined with Dr. Sutton. Elevated BP of 1903/96, Cardizem drip increased to 7.5 mg/hr. Discussed with Dr. Aldana, condition likely not due to Cefepime toxicity. Discussed with Dr. Sutton, possible oversedation from antiepileptic medication, dose of Keppra will be decreased from 1500 mg IV BID to 1000 mg IV BID. CBC unremarkable. BMP Na 147, K 3.4, Cl 115, glu 161. 12/02 Patient was seen and examined. Much more awake. Alert and oriented x 2. Following instructions. Evaluated by ST and started on NDD1 diet with 1:1 supervision and aspiration precautions. Discussed with Dr. Sutton, Keppra has been further decreased to 500 mg IV BID. BMP K 3.1, Cl 109, glu 143. General: Nontoxic and appears stated age. Derm: Skin warm and dry, normal coloration for ethnicity. Head: Atraumatic, normocephalic and symmetric. Eyes: no lid lag, and anicteric sclera. Cardiovascular: Irregularly irregular Lungs: Respirations even, regular, and unlabored on room air. Lungs CTA bilaterally, no rhonchi, no rales, no wheezing, and no accessory muscle usage. Ext: ROM intact. No gross muscle atrophy, no edema, no contractures Neuro/psych: Able to follow simple commands (thumbs up, wiggle toes) however appears sedated. Based on my assessment of this patient, this patient meets a high complexity level of care. Patient has an acute diagnosis of acute metabolic encephalopathy due to UTI sepsis now complicated by Cefepime toxicitiy that poses a threat to life or bodily function. Severe metabolic encephalopathy: Unclear etiology. Possible seizure activity vs CVA vs Cefepime induced neurotoxicity vs other underlying neurological condition. Keppra decreased to 500 mg IVPB every 12 hours. Vimpat 100 mg every 12 hours. Hypokalemia: KCl 40 meq IV x 1 ordered today. MRI brain concerning for microhemorrhage due to amyloid angiopathy: Discussed with Dr. Sutton, not the cause of her altered mentation. Citrobacter freundii UTI: Invanz 1g IV QD. Severe right internal carotid artery stenosis: Carotid duplex shows no significant stenosis. No intervention per Vascular Sx. Diabetes mellitus with hyperglycemia: NovoLog sliding scale and Levemir 15 units daily. Accuchecks Q6H. Hemoglobin A1c 9.8%. Atrial fibrillation with RVR: Cardizem at 7.5 mg/hr. No AC due to findings on MRI brain. Hypothyroidism: Synthroid 9.375 mcg IV QD. CODE STATUS: FULL CODE. DVT Prophylaxis: Heparin SQ. GI Prophylaxis: Protonix PO Designated medical POA if patient is not able to make medical decisions for themselves: I have reviewed the following economic consultant notes: ID, Neuro note. I have reviewed the results of the following tests: BMP. I have ordered the following tests: BMP. I have discussed the care of this patient with the following independent his umang: [facility]. I have independently interpreted the following test below: I have discussed the management of this patient with the following physician: Discussed with Dr. Sutton. Objective - Vital Signs Vital signs: Vital Signs Temp 97.9 F 12/02/23 04:00 Pulse 89 12/02/23 04:00 Resp 15 12/02/23 04:00 BP 157/92 12/02/23 04:00 Pulse Ox 93 L 12/02/23 04:00 FiO2 Intake & Output 12/01/23 12/02/23 12/02/23 18:59 06:59 18:59 Intake Total 36.250 98.75 Output Total 1800 1000 Balance -1763.750 -901.25 Intake: IV 10 Invasive Line 6 10 Intake, IV Titration 36.250 88.75 Amount Diltiazem 125 mg In 36.250 88.75 Sodium Chloride 0.9% 100 ml @ 5 MG/HR 5 mls/hr IV .Q24H [facility] Rx#:[id number] Output: Urine 1800 1000 Other: Voiding Method Indwelling Catheter Indwelling Catheter - Labs CBC & Chem 7: 12/01/23 09:30 12/02/23 08:42 Labs: Abnormal Lab Results - Last 24 Hours (Table) 12/01/23 12/01/23 12/01/23 Range/Units 09:30 11:25 18:01 Sodium 147 H (137-145) mmol/L Potassium 3.4 L (3.5-5.1) mmol/L Chloride 115 H (98-107) mmol/L Glucose 161 H (74-99) mg/dL POC Glucose (mg/dL) 141 H 152 H (70-110) mg/dL 12/02/23 12/02/23 Range/Units 00:21 05:57 Sodium (137-145) mmol/L Potassium (3.5-5.1) mmol/L Chloride (98-107) mmol/L Glucose (74-99) mg/dL POC Glucose (mg/dL) 116 H 140 H (70-110) mg/dL
[2023-12-02 12:06] LABS: Glucose,Whole Blood 223 mg/dL (70-110)
[2023-12-02] MEDS: POTASSIUM CHLORIDE 10 MEQ in WATER FOR INJECTION 1 100ML.BAG IVPB SCH (12:17)
--- NOTE | 2023-12-02 12:35 | P.PN ---
Subjective Progress Note Date: 12/02/23 I am following-up with patient, and she is feeling better. She denies of any headache. Per nurse, her mentation is improving. Objective - Vital Signs Vital signs: Vital Signs Temp 97.5 F L 12/02/23 09:03 Pulse 92 12/02/23 09:03 Resp 20 12/02/23 09:03 BP 168/91 12/02/23 09:03 Pulse Ox 95 12/02/23 09:03 FiO2 Intake & Output 12/01/23 12/02/23 12/02/23 18:59 06:59 18:59 Intake Total 36.250 98.75 Output Total 1800 1000 425 Balance -1763.750 -901.25 -425 Intake: IV 10 Invasive Line 6 10 Intake, IV Titration 36.250 88.75 Amount Diltiazem 125 mg In 36.250 88.75 Sodium Chloride 0.9% 100 ml @ 5 MG/HR 5 mls/hr IV .Q24H [facility] Rx#:[id number] Output: Urine 1800 1000 425 Other: Voiding Method Indwelling Catheter Indwelling Catheter Indwelling Catheter - Exam General: Lying in bed and does not appear in acute distress. Neuro: Is mildly drowsy but is awakeable to voice. Is more awake today compared to yesterday. She is oriented to self and place. She did not know year. She is able to name object correctly (pen). She is following simple commands. Pupils are 3mm and reactive to light. Is tracking right and left. Smile is symmetrical. Able to stick tongue out and move side to side. Is somewhat hypophonic. Showed thumbs up on right hand and wiggling bilateral toes. Is briefly lifting uppers above gravity. No myoclonic jerks or body jerks. - Labs CBC & Chem 7: 12/01/23 09:30 12/02/23 08:42 Labs: Abnormal Lab Results - Last 24 Hours (Table) 12/01/23 12/02/23 12/02/23 Range/Units 18:01 00:21 05:57 Potassium (3.5-5.1) mmol/L Chloride (98-107) mmol/L Glucose (74-99) mg/dL POC Glucose (mg/dL) 152 H 116 H 140 H (70-110) mg/dL 12/02/23 12/02/23 Range/Units 08:42 12:04 Potassium 3.1 L (3.5-5.1) mmol/L Chloride 109 H (98-107) mmol/L Glucose 143 H (74-99) mg/dL POC Glucose (mg/dL) 223 H (70-110) mg/dL Assessment and Plan Assessment: * Altered mental status and patient has developed acute muteness, with myoclonic twitches. Suspect toxic metabolic, underlying UTI and also confusion seems possible medication induced (Cefepime) and is on high dose of antiepileptics. MRI Brain is negative for acute or subacute process. CSF study is negative (nucleated cells of 6)--mentation improving. * MRI Brain: It showed scattered bilateral foci of blooming artifact suspicious for microhemorrhage throughout the brain, correlate for cerebral amyloid angiopathy. No evidence of intracranial mass, acute/subacute infarct or abnormal enhancement. Nonspecific white matter changes likely related to small vessel ischemic disease. This is not cause of her confusion and likely had this before presenting to hospital. * Acute Citrobacter UTI. Patient was on cefepime, now switched to Invanz. * RIght ICA stenosis that is severe on CTA but not significant on carotid duplex and vascular feels asymptomatic. * Atrial fibrillation, currently on Eliquis * Hypertension * Diabetes Plan: * CTA of head and neck revealed severe proximal right ICA stenosis. Patient started on aspirin 81 mg daily. Patient also on Eliquis 5 mg twice a day but is on hold for possible lumbar puncture. * Check carotid Doppler: less than 50% stenosis of bilateral carotid bifurcation. Nonvisulaization of the left vertebral artery. vascular surgery felt asymptomatic right ICA. * MRI Brain: It showed scattered bilateral foci of blooming artifact suspicious for microhemorrhage throughout the brain, correlate for cerebral amyloid angiopathy. No evidence of intracranial mass, acute/subacute infarct or abnormal enhancement. Nonspecific white matter changes likely related to small vessel ischemic disease. I spoke with the patient the primary team RN ADMISSION and notified her the microhemorrhages for possible cerebral amyloid angiopathy probably was day or even prior to her admission and that is not the cause for confusion. Need to reconsider anticoagulation on the long-term especially with the increased risk for bleed especially with amyloid. But if felt the benefit outweigh risk then resume anticoagulation. Will defer the use of anticoagulation to primary team on longterm. * Initial EEG 11/26/2023 was reported abnormal due to presence of diffuse bilaterally symmetric high amplitude frontally maximal sharp-appearing waves seen at 2-3 Hz, suggestive of underlying cortical irritability and tendency for seizures. Intermittent myoclonic jerks weren't noticed with presence of high amplitude myogenic activity lasting for about 1-2 seconds. After the Ativan 1 mg IV push was given, this high amplitude sharp-appearing waves dissipated along with myoclonic twitches. Otherwise the background was diffusely slow, suggestive of severe encephalopathy. Overall, this EEG may suggest myoclonic status, which was aborted with 1 mg Ativan. Clinical correlation and follow-up EEG recommended. * Patient on Keppra 1500 mg twice a day then started on Vimpat empirically 100mg bid both by Dr. Pino. Today I will stop Keppra 500mg bid since no body jerks and can cause confusion. Since going down on Keppra, she has been more awakeable. * Repeat EEG performed 11/27/2023 reported as revealed persistently abnormal EEG with presence of background slowing of moderate to severe degree, suggestive of toxic metabolic encephalopathy. Presence of intermittent high amplitude frontally predominant waves, which at times appears triphasic type in quality but sometimes they become rhythmic at 1-2 Hz. Overall this is consistent with severe encephalopathy. When compared to the EEG from 09/25/2024, there is overall improvement in the background and much less frequency of sharp-appearing waves. Recommend continuous EEG monitoring for further evaluation. * Dr. Pino empirically started Vimpat 100 mg IV twice a day. * Repeat prolonged routine EEG on 11/28/2023: This is an abnormal prolonged routine EEG. The background slowing is suggestive of moderate encephalopathy. There is no focal slowing, epileptiform discharge or seizure on the EEG. * CSF study: clear, colorless, nucleated cells is 6 (normal is 0-5), glucose 87, protein is 57 She does not have meningitis or encephalitis from CSF study. CSF gram stain is negative. * Discussed with primary team and her nurse. Time with Patient: Less than 30
--- NOTE | 2023-12-02 12:52 | P.PN ---
Subjective Progress Note Date: 12/02/23 Principal diagnosis: Reason for follow-up is drug-resistant UTI Patient is a 83-year-old female with a past medical history significant for diabetes mellitus hypertension atrial fibrillation memory impairment presenting to the hospital for evaluation of weakness and mental status changes did have a positive UA some urinary symptoms concerning for symptomatic UTI urine culture subsequently came back positive with the drug- resistant Citrobacter. On today's evaluation that is 12/02/2023, the patient continues to be afebrile, the patient is on room air and breathing comfortably, the Pt is more awake and alert today and did not for some simple question no vomiting or diarrhea has been reported. The patient did have a creatinine 0.64 CSF and blood culture has been negative Objective - Vital Signs Vital signs: Vital Signs Temp 97.5 F L 12/02/23 09:03 Pulse 92 12/02/23 09:03 Resp 20 12/02/23 09:03 BP 168/91 12/02/23 09:03 Pulse Ox 95 12/02/23 09:03 FiO2 Intake & Output 12/01/23 12/02/23 12/02/23 18:59 06:59 18:59 Intake Total 36.250 98.75 Output Total 1800 1000 425 Balance -1763.750 -901.25 -425 Intake: IV 10 Invasive Line 6 10 Intake, IV Titration 36.250 88.75 Amount Diltiazem 125 mg In 36.250 88.75 Sodium Chloride 0.9% 100 ml @ 5 MG/HR 5 mls/hr IV .Q24H [facility] Rx#:[id number] Output: Urine 1800 1000 425 Other: Voiding Method Indwelling Catheter Indwelling Catheter Indwelling Catheter - Exam GENERAL DESCRIPTION: An elderly female lying in bed in no distress RESPIRATORY SYSTEM: Unlabored breathing , decreased breath sounds at bases HEART: S1 S2 regular rate and rhythm , ABDOMEN: Soft , no tenderness EXTREMITIES: No edema feet - Labs CBC & Chem 7: 12/01/23 09:30 12/02/23 08:42 Labs: Abnormal Lab Results - Last 24 Hours (Table) 12/01/23 12/02/23 12/02/23 Range/Units 18:01 00:21 05:57 Potassium (3.5-5.1) mmol/L Chloride (98-107) mmol/L Glucose (74-99) mg/dL POC Glucose (mg/dL) 152 H 116 H 140 H (70-110) mg/dL 12/02/23 Range/Units 08:42 Potassium 3.1 L (3.5-5.1) mmol/L Chloride 109 H (98-107) mmol/L Glucose 143 H (74-99) mg/dL POC Glucose (mg/dL) (70-110) mg/dL Assessment and Plan (1) Penicillin allergy Current Visit: Yes Status: Acute Code(s): Z88.0 - ALLERGY STATUS TO PENICILLIN SNOMED Code(s): 30622845 (2) UTI (urinary tract infection) Current Visit: No Status: Acute Code(s): N39.0 - URINARY TRACT INFECTION, SITE NOT SPECIFIED SNOMED Code(s): 94022772 Plan: 1patient was in the hospital mental status changes and weakness which is likely multifactorial patient did have some urinary symptoms and now with evidence of drug-resistant bacteria in the urine likely responsible for some of her symptomatology 2-penicillin allergy that will limit the number of antibiotics safe to use 3-patient did have significant change in her mentation, cefepime was discontinued concerning for possible drug-related however patient has received only 2-3 doses of cefepime the patient did have persistent mentation, the patient did have LP completed, however did have a normal protein glucose and whi te count only 6 not suspicious for encephalitis or meningitis 4-patient has shown overall improvement in her mentation compared to yesterday and has received adequate antibiotic therapy for UTI Invanz will be discontinued Dictation was produced using [employer] dictation software. please excuse any gram matical, word or spelling errors. Time with Patient: Less than 30
[2023-12-02 18:16] LABS: Glucose,Whole Blood 149 mg/dL (70-110)
[2023-12-03 00:19] LABS: Glucose,Whole Blood 186 mg/dL (70-110)
[2023-12-03] MEDS: ACETAMINOPHEN TAB 325 MG TAB PO PRN (06:06)
[2023-12-03 06:13] LABS: Glucose,Whole Blood 176 mg/dL (70-110)
[2023-12-03] MEDS: APIXABAN 5 MG TAB PO SCH (09:23)
[2023-12-03] MEDS: DILTIAZEM CD 180 MG CAP.ER.24H PO SCH (09:23)
--- NOTE | 2023-12-03 10:38 | P.PN ---
Subjective Progress Note Date: 12/03/23 83-year-old female with a past medical history of chronic atrial fibrillation, insulin-dependent diabetes mellitus, hypertension, and memory impairment. She presented to the emergency department overnight secondary to complaints of confusion, hallucinations and generalized weakness. Vital signs show BP 146/84, HR 97, RR 18, T 97.5 F, and SpO2 of 96% on room air. CBC unremarkable. BMP sodium of 132 and elevated glucose of 412. Lactic acid was elevated at 3.4. Urinalysis positive nitrite, and greater than [address] brain was negative for acute intracranial process showing age-related ce rebral atrophy and moderately advanced chronic small vessel ischemic changes redemonstrated. EKG was completed showing atrial fibrillation with a controlled ventricular rate of 95 bpm. Patient was started on IV antibiotics for treatment of UTI and admitted under services with ID consult. Patient was noted to have episodes of visual hallucinations and confusion concerning for delirium secondary to infection. UCx Citrobacter freundii which was resistant to Rocephin, switched to cefepime. Patient's mentation was improving and we were working towards discharging to shelter facility. On the morning of 11/25/2023 mentation significantly changed. Patient was found to have significant muscular tics/myoclonic jerking movements, puffing of cheeks and lips and now nonverbal. Order placed for stat CT brain, CTA head and neck, blood glucose check and EEG. POC glucose was 186. 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 CTA neck revealed severe proximal right internal carotid artery stenosis. MRI brain scattered microhemorrhage correlate for cerebral amyloid angiopathy. Cefepime discontinued and patient started on Invanz for possible neurotoxicity and Acyclovir for meningitis/encephalitis. EEG was reported to be severely abnormal and per neurology request giving patient a loading dose of Keppra and Vimpat. Initial plans for transfer for continuous EEG monitoring. [facility] did not accept transfer, likely a metabolic encephalopathy believed to be resulting from cefepime induced neurotoxicity and patient does not require continuous EEG monitoring. Patient underwent lumbar puncture 11/29/2023. CSF fluid analysis did not indicate infection, Acyclovir was discontinued. 11/30 Patient was seen and examined. Hard to arrouse. CBC Hg 11, Hct 33.9. BMP Cl 113, Cr 1.19, glu 153, alb 3.1. Remains of Cardizem drip at 5 mg/hr. 12/01 Patient was seen and examined. Hard to arrouse but appears to be following commands when examined with Dr. Sutton. Elevated BP of 193/96, Cardizem drip increased to 7.5 mg/hr. Discussed with Dr. Aldana, condition likely not due to Cefepime toxicity. Discussed with Dr. Sutton, possible oversedation from antiepileptic medication, dose of Keppra will be decreased from 1500 mg IV BID to 1000 mg IV BID. CBC unremarkable. BMP Na 147, K 3.4, Cl 115, glu 161. 12/02 Patient was seen and examined. Much more awake. Alert and oriented x 2. Following instructions. Evaluated by ST and started on NDD1 diet with 1:1 supervision and aspiration precautions. Discussed with Dr. Sutton, Keppra has been further decreased to 500 mg IV BID. BMP K 3.1, Cl 109, glu 143. Remains of Cardizem 7.5 units/hr. 12/03 Patient was seen and examined. Opening eyes and following instructions but not speaking. Keppra is now completely weaned off. ID note reviewed, adequate antibiotics for UTI, Ertepenem discontinued. She does have a wet cough. CXR is ordered. BMP is pending this morning. General: Nontoxic and appears stated age. Derm: Skin warm and dry, normal coloration for ethnicity. Head: Atraumatic, normocephalic and symmetric. Eyes: no lid lag, and anicteric sclera. Cardiovascular: Irregularly irregular Lungs: Respirations even, regular, and unlabored on room air. Lungs CTA bilaterally, no rhonchi, no rales, no wheezing, and no accessory muscle usage. Ext: ROM intact. No gross muscle atrophy, no edema, no contractures Neuro/psych: Able to follow simple commands (thumbs up, wiggle toes). Based on my assessment of this patient, this patient meets a high complexity level of care. Patient has an acute diagnosis of acute metabolic encephalopathy due to UTI sepsis now complicated by Cefepime toxicitiy that poses a threat to life or bodily function. Severe metabolic encephalopathy: Unclear etiology. Possible seizure activity vs CVA vs Cefepime induced neurotoxicity vs other underlying neurological condition. Keppra weaned off 12/03. Vimpat 100 mg every 12 hours. Hypokalemia: KCl 40 meq IV x 1 ordered today. MRI brain concerning for microhemorrhage due to amyloid angiopathy: Discussed with Dr. Sutton, not the cause of her altered mentation. Citrobacter freundii UTI: Invanz 1g IV QD. Severe right internal carotid artery stenosis: Carotid duplex shows no significant stenosis. No intervention per Vascular Sx. Diabetes mellitus with hyperglycemia: NovoLog sliding scale and Levemir 15 units daily. Accuchecks Q6H. Hemoglobin A1c 9.8%. Atrial fibrillation with RVR: Cardizem at 7.5 mg/hr. Restart Cardizem 180 mg PO QD and wean off the drip. Discussed with Dr. Sutton, rewards outweigh risks for AC with regard to microhemorrhage seen on MRI and risk for CVA with A-Fib. I will restart Eliquis 5 mg PO BID today. Hypothyroidism: Synthroid 9.375 mcg IV QD switched to 12.5 mcg PO QD. CODE STATUS: FULL CODE. DVT Prophylaxis: Eliquis. GI Prophylaxis: Protonix PO Designated medical POA if patient is not able to make medical decisions for themselves: I have reviewed the following recruitment consultant notes: ID, Neuro note. I have reviewed the results of the following tests: I have ordered the following tests: BMP. CXR. I have discussed the care of this patient with the following independent historian: I have independently interpreted the following test below: I have discussed the management of this patient with the following physician: Objective - Vital Signs Vital signs: Vital Signs Temp 99.0 F 12/03/23 04:00 Pulse 93 12/03/23 04:00 Resp 19 12/03/23 04:00 BP 163/93 12/03/23 04:00 Pulse Ox 94 L 12/03/23 04:00 FiO2 Intake & Output 12/02/23 12/03/23 12/03/23 18:59 06:59 18:59 Intake Total 10 125 Output Total 650 300 Balance -640 -175 Intake: IV 10 Invasive Line 8 10 Intake, IV Titration 125 Amount Diltiazem 125 mg In 125 Sodium Chloride 0.9% 100 ml @ 5 MG/HR 5 mls/hr IV .Q24H [facility] Rx#:[id number] Output: Urine 650 300 Other: Voiding Method Indwelling Catheter Indwelling Catheter - Labs CBC & Chem 7: 12/01/23 09:30 02/16/24 08:42 Labs: Abnormal Lab Results - Last 24 Hours (Table) 12/02/23 12/02/23 12/02/23 Range/Units 08:42 12:04 18:14 Potassium 3.1 L (3.5-5.1) mmol/L Chloride 109 H (98-107) mmol/L Glucose 143 H (74-99) mg/dL POC Glucose (mg/dL) 223 H 149 H (70-110) mg/dL 12/03/23 12/03/23 Range/Units 00:18 06:12 Potassium (3.5-5.1) mmol/L Chloride (98-107) mmol/L Glucose (74-99) mg/dL POC Glucose (mg/dL) 186 H 176 H (70-110) mg/dL
[2023-12-03 11:18] LABS: Glucose,Whole Blood 185 mg/dL (70-110)
--- NOTE | 2023-12-03 11:19 | XR ---
EXAMINATION TYPE: XR chest 1V portable DATE OF EXAM: 12/03/2023 CLINICAL HISTORY: Cough TECHNIQUE: Single frontal view of the chest is obtained. COMPARISON: Chest x-ray October 31, 2023 FINDINGS: There is chronic bilateral parenchymal changes with left basilar linear atelectasis. The cardiac silhouette size is upper limits of normal with atherosclerotic change in the aortic knob. Deg enerative change right shoulder is redemonstrated. IMPRESSION: Chronic changes with left basilar linear opacity favoring atelectasis. No new suspicious acute focal infiltrate clearly seen.
[2023-12-03 11:20] LABS: African American GFR (CKD) >90 (>60 ml/min/1.73 sqM); Anion Gap 9 mmol/L; Blood Urea Nitrogen 11 mg/dL (7-17); Calcium 8.5 mg/dL (8.4-10.2); Carbon Dioxide 25 mmol/L (22-30); Chloride 107 mmol/L (98-107); Glucose 177 mg/dL (74-99); Magnesium 1.3 mg/dL (1.6-2.3); Non-African American GFR(CKD) 82 (>60 ml/min/1.73 sqM); Potassium 3.1 mmol/L (3.5-5.1); Sodium 141 mmol/L (137-145)
--- NOTE | 2023-12-03 11:53 | P.PN ---
Subjective Progress Note Date: 12/03/23 Principal diagnosis: Reason for follow-up is drug-resistant UTI Patient is a 83-year-old female with a past medical history significant for diabetes mellitus hypertension atrial fibrillation memory impairment presenting to the hospital for evaluation of weakness and mental status changes did have a positive UA some urinary symptoms concerning for symptomatic UTI urine culture subsequently came back positive with the drug- resistant Citrobacter. On today's evaluation that is 12/03/2023, Patient is afebrile patient is currently on room air, patient is more lethargic today and did not answer any question normally diarrhea and other changes reported by the nursing staff. Patient did have a creatinine 0.6, no CBC was done today Objective - Vital Signs Vital signs: Vital Signs Temp 98.1 F 12/03/23 09:20 Pulse 94 12/03/23 09:20 Resp 18 12/03/23 09:20 BP 140/70 12/03/23 09:20 Pulse Ox 95 12/03/23 09:20 FiO2 Intake & Output 12/02/23 12/03/23 12/03/23 18:59 06:59 18:59 Intake Total 10 125 93.75 Output Total 650 300 Balance -640 -175 93.75 Intake: IV 10 Invasive Line 8 10 Intake, IV Titration 125 93.75 Amount Diltiazem 125 mg In 125 93.75 Sodium Chloride 0.9% 100 ml @ 5 MG/HR 5 mls/hr IV .Q24H [facility] Rx#:[id number] Output: Urine 650 300 Other: Voiding Method Indwelling Catheter Indwelling Catheter Indwelling Catheter - Exam GENERAL DESCRIPTION: An elderly female lying in bed in no distress RESPIRATORY SYSTEM: Unlabored breathing , decreased breath sounds at bases HEART: S1 S2 regular rate and rhythm , ABDOMEN: Soft , no tenderness EXTREMITIES: No edema feet - Labs CBC & Chem 7: 12/01/23 09:30 12/03/23 09:55 Labs: Abnormal Lab Results - Last 24 Hours (Table) 12/02/23 12/02/23 12/03/23 Range/Units 12:04 18:14 00:18 Potassium (3.5-5.1) mmol/L Glucose (74-99) mg/dL POC Glucose (mg/dL) 223 H 149 H 186 H (70-110) mg/dL Magnesium (1.6-2.3) mg/dL 12/03/23 12/03/23 12/03/23 Range/Units 06:12 09:55 11:16 Potassium 3.1 L (3.5-5.1) mmol/L Glucose 177 H (74-99) mg/dL POC Glucose (mg/dL) 176 H 185 H (70-110) mg/dL Magnesium 1.3 L (1.6-2.3) mg/dL Microbiology - Last 24 Hours (Table) 11/29/23 11:29 CSF Gram Stain - Preliminary Cerebral Spinal Fluid CSF Culture - Preliminary Assessment and Plan (1) Penicillin allergy Current Visit: Yes Status: Acute Code(s): Z88.0 - ALLERGY STATUS TO PENICILLIN SNOMED Code(s): 64354400 (2) UTI (urinary tract infection) Current Visit: No Status: Acute Code(s): N39.0 - URINARY TRACT INFECTION, SITE NOT SPECIFIED SNOMED Code(s): 93314329 Plan: 1patient was in the hospital mental status changes and weakness which is likely multifactorial patient did have some urinary symptoms and now with evidence of drug-resistant bacteria in the urine likely responsible for some of her symptomatology 2-penicillin allergy that will limit the number of antibiotics safe to use 3-patient did have significant change in her mentation, cefepime was discontinued concerning for possible drug-related however patient has received only 2-3 doses of cefepime the patient did have persistent mentation, the patient did have LP completed, however did have a normal protein glucose and white count only 6 not suspicious for encephalitis or meningitis 4-patient has received adequate antibiotic therapy for underlying UTI and will monitor closely off antibiotic therapy Dictation was produced using [employer] dictation software. please excuse any gr ammatical, word or spelling errors. Time with Patient: Less than 30
--- NOTE | 2023-12-03 14:45 | P.PN ---
Subjective Progress Note Date: 12/03/23 I am following-up with patient and upon seeing her she was sleeping but awakeable to voice. Denies any headache and felt ok. Objective - Vital Signs Vital signs: Vital Signs Temp 98.1 F 12/03/23 09:20 Pulse 89 12/03/23 12:00 Resp 17 12/03/23 12:00 BP 142/80 12/03/23 12:00 Pulse Ox 97 12/03/23 12:00 FiO2 Intake & Output 12/02/23 12/03/23 12/03/23 18:59 06:59 18:59 Intake Total 10 125 93.75 Output Total 650 300 Balance -640 -175 93.75 Intake: IV 10 Invasive Line 8 10 Intake, IV Titration 125 93.75 Amount Diltiazem 125 mg In 125 93.75 Sodium Chloride 0.9% 100 ml @ 5 MG/HR 5 mls/hr IV .Q24H [facility] Rx#:[id number] Output: Urine 650 300 Other: Voiding Method Indwelling Catheter Indwelling Catheter Indwelling Catheter - Exam General: Lying in bed and does not appear in acute distress. Neuro: Was sleeping but briefly awakeable. Is oriented to self. She is following simple commands. Correctly named pen. No facial weakness. Is hypophonic. - Labs CBC & Chem 7: 12/01/23 09:30 12/03/23 09:55 Labs: Abnormal Lab Results - Last 24 Hours (Table) 12/02/23 12/03/23 12/03/23 Range/Units 18:14 00:18 06:12 Potassium (3.5-5.1) mmol/L Glucose (74-99) mg/dL POC Glucose (mg/dL) 149 H 186 H 176 H (70-110) mg/dL Magnesium (1.6-2.3) mg/dL 12/03/23 12/03/23 Range/Units 09:55 11:16 Potassium 3.1 L (3.5-5.1) mmol/L Glucose 177 H (74-99) mg/dL POC Glucose (mg/dL) 185 H (70-110) mg/dL Magnesium 1.3 L (1.6-2.3) mg/dL Microbiology - Last 24 Hours (Table) 11/29/23 11:29 CSF Gram Stain - Preliminary Cerebral Spinal Fluid CSF Culture - Preliminary Assessment and Plan Assessment: * Altered mental status and patient has developed acute muteness, with myoclonic twitches. Due to underlying UTI, medication induced (cephalosporin >>> and Keppra can cause confusion/drowsiness)--mentation improving but today a bit more sleepy compared to yesterday. * MRI Brain: It showed scattered bilateral foci of blooming artifact suspicious for microhemorrhage throughout the brain, correlate for cerebral amyloid angiopathy. No evidence of intracranial mass, acute/subacute infarct or abnormal enhancement. Nonspecific white matter changes likely related to small vessel ischemic disease. This is not cause of her confusion and likely had this before presenting to hospital. * Acute Citrobacter UTI. Patient was on cefepime, now switched to Invanz. * RIght ICA stenosis that is severe on CTA but not significant on carotid duplex and vascular feels asymptomatic. * Atrial fibrillation, currently on Eliquis * Hypertension * Diabetes Plan: * CTA of head and neck revealed severe proximal right ICA stenosis. Patient started on aspirin 81 mg daily. Patient also on Eliquis 5 mg twice a day but is on hold for possible lumbar puncture. * Check carotid Doppler: less than 50% stenosis of bilateral carotid bifurcation. Nonvisulaization of the left vertebral artery. vascular surgery felt asymptomatic right ICA. * MRI Brain: It showed scattered bilateral foci of blooming artifact suspicious for microhemorrhage throughout the brain, correlate for cerebral amyloid angiopathy. No evidence of intracranial mass, acute/subacute infarct or abnormal enhancement. Nonspecific white matter changes likely related to small vessel ischemic disease. I spoke with the patient the primary team CLEANING TECHNICIAN and notified her the microhemorrhages for possible cerebral amyloid angiopathy probably was day or even prior to her admission and that is not the cause for confusion. Need to reconsider anticoagulation on the long-term especially with the increased risk for bleed especially with amyloid. But if felt the benefit outweigh risk then resume anticoagulation. Will defer the use of anticoagulation to primary team on jail. * Initial EEG 11/26/2023 was reported abnormal due to presence of diffuse bilaterally symmetric high amplitude frontally maximal sharp-appearing waves seen at 2-3 Hz, suggestive of underlying cortical irritability and tendency for seizures. Intermittent myoclonic jerks weren't noticed with presence of high amplitude myogenic activity lasting for about 1-2 seconds. After the Ativan 1 mg IV push was given, this high amplitude sharp-appearing waves dissipated along with myoclonic twitches. Otherwise the background was diffusely slow, suggestive of severe encephalopathy. Overall, this EEG may suggest myoclonic status, which was aborted with 1 mg Ativan. Clinical correlation and follow-up EEG recommended. * Patient on Keppra 1500 mg twice a day then started on Vimpat empirically 100mg bid both by Dr. Pino. I titrated the Keppra down during this past one week and totally stopped on 12/02/23. She is improving but today is a bit more sleepy. If continues be sleepy will get repeat EEG to assess if any discha rges or seizuress. If continues to be doing better recommend consideration of going down on Vimpat. * Repeat EEG performed 11/27/2023 reported as revealed persistently abnormal EEG with presence of background slowing of moderate to severe degree, suggestive of toxic metabolic encephalopathy. Presence of intermittent high amplitude frontally predominant waves, which at times appears triphasic type in quality but sometimes they become rhythmic at 1-2 Hz. Overall this is consistent with severe encephalopathy. When compared to the EEG from 09/25/2024, there is overall improvement in the background and much less frequency of sharp-appearing waves. Recommend continuous EEG monitoring for further evaluation. * Dr. Pino empirically started Vimpat 100 mg IV twice a day. * Repeat prolonged routine EEG on 11/28/2023: This is an abnormal prolonged routine EEG. The background slowing is suggestive of moderate encephalopathy. There is no focal slowing, epileptiform discharge or seizure on the EEG. * CSF study: clear, colorless, nucleated cells is 6 (normal is 0-5), glucose 87, protein is 57 She does not have meningitis or encephalitis from CSF study. CSF gram stain is negative. * Discussed with primary team. Time with Patient: Less than 30
[2023-12-03 18:03] LABS: Glucose,Whole Blood 143 mg/dL (70-110)
[2023-12-03 23:52] LABS: Glucose,Whole Blood 133 mg/dL (70-110)
[2023-12-04 06:28] LABS: Glucose,Whole Blood 136 mg/dL (70-110)
[2023-12-04] MEDS: LEVOTHYROXINE 25 MCG TAB PO SCH (06:28)
[2023-12-04 08:56] LABS: African American GFR (CKD) >90 (>60 ml/min/1.73 sqM); Anion Gap 9 mmol/L; Blood Urea Nitrogen 10 mg/dL (7-17); Calcium 8.2 mg/dL (8.4-10.2); Carbon Dioxide 24 mmol/L (22-30); Chloride 107 mmol/L (98-107); Glucose 153 mg/dL (74-99); Magnesium 1.2 mg/dL (1.6-2.3); Non-African American GFR(CKD) 80 (>60 ml/min/1.73 sqM); Potassium 2.9 mmol/L (3.5-5.1); Sodium 140 mmol/L (137-145)
[2023-12-04] MEDS: MAGNESIUM SULFATE-D5W PMX 1 GM in DEXTROSE/WATER 1 100ML.BAG IVPB SCH (09:44)
[2023-12-04] MEDS: POTASSIUM CHLORIDE 10 MEQ in WATER FOR INJECTION 1 100ML.BAG IVPB SCH (11:28)
--- NOTE | 2023-12-04 12:03 | P.PN ---
Subjective Progress Note Date: 12/04/23 83-year-old female with a past medical history of chronic atrial fibrillation, insulin-dependent diabetes mellitus, hypertension, and memory impairment. She presented to the emergency department overnight secondary to complaints of confusion, hallucinations and generalized weakness. Vital signs show BP 146/84, HR 97, RR 18, T 97.5 F, and SpO2 of 96% on room air. CBC unremarkable. BMP sodium of 132 and elevated glucose of 412. Lactic acid was elevated at 3.4. Urinalysis positive nitrite, and greater than [address] brain was negative for acute intracranial process showing age-related ce rebral atrophy and moderately advanced chronic small vessel ischemic changes redemonstrated. EKG was completed showing atrial fibrillation with a controlled ventricular rate of 95 bpm. Patient was started on IV antibiotics for treatment of UTI and admitted under services with ID consult. Patient was noted to have episodes of visual hallucinations and confusion concerning for delirium secondary to infection. UCx Citrobacter freundii which was resistant to Rocephin, switched to cefepime. Patient's mentation was improving and we were working towards discharging to longterm facility. On the morning of 11/25/2023 mentation significantly changed. Patient was found to have significant muscular tics/myoclonic jerking movements, puffing of cheeks and lips and now nonverbal. Order placed for stat CT brain, CTA head and neck, blood glucose check and EEG. POC glucose was 186. 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 CTA neck revealed severe proximal right internal carotid artery stenosis. MRI brain scattered microhemorrhage correlate for cerebral amyloid angiopathy. Cefepime discontinued and patient started on Invanz for possible neurotoxicity and Acyclovir for meningitis/encephalitis. EEG was reported to be severely abnormal and per neurology request giving patient a loading dose of Keppra and Vimpat. Initial plans for transfer for continuous EEG monitoring. [facility] did not accept transfer, likely a metabolic encephalopathy believed to be resulting from cefepime induced neurotoxicity and patient does not require continuous EEG monitoring. Patient underwent lumbar puncture 11/29/2023. CSF fluid analysis did not indicate infection, Acyclovir was discontinued. 11/30 Patient was seen and examined. Hard to arrouse. CBC Hg 11, Hct 33.9. BMP Cl 113, Cr 1.19, glu 153, alb 3.1. Remains of Cardizem drip at 5 mg/hr. 12/01 Patient was seen and examined. Hard to arrouse but appears to be following commands when examined with Dr. Sutton. Elevated BP of 193/96, Cardizem drip increased to 7.5 mg/hr. Discussed with Dr. Aldana, condition likely not due to Cefepime toxicity. Discussed with Dr. Sutton, possible oversedation from antiepileptic medication, dose of Keppra will be decreased from 1500 mg IV BID to 1000 mg IV BID. CBC unremarkable. BMP Na 147, K 3.4, Cl 115, glu 161. 12/02 Patient was seen and examined. Much more awake. Alert and oriented x 2. Following instructions. Evaluated by ST and started on NDD1 diet with 1:1 supervision and aspiration precautions. Discussed with Dr. Sutton, Keppra has been further decreased to 500 mg IV BID. BMP K 3.1, Cl 109, glu 143. Remains of Cardizem 7.5 units/hr. 12/03 Patient was seen and examined. Opening eyes and following instructions but not speaking. Keppra is now completely weaned off. ID note reviewed, adequate antibiotics for UTI, Ertepenem discontinued. She does have a wet cough. CXR is ordered. BMP is pending this morning. 12/04 Patient was seen and examined. Wispering answers. Significant weakness in all extremities. Appears to be in pain when moving arms. CXR done yesterday shows left basilar atelectasis. Mag level collected yesterday low at 1.3. Restarted on Cardizem 180 mg PO QD and Eliquis 5 mg PO BID. We will attempt to wean off Cardizem drip today. Discussed with Dr. Sutton, plans for EEG on Tuesday. BMP shows K 2.9, glu 153, Ca 8.2. Mag 1.2. General: Nontoxic and appears stated age. Derm: Skin warm and dry, normal coloration for ethnicity. Head: Atraumatic, normocephalic and symmetric. Eyes: no lid lag, and anicteric sclera. Cardiovascular: Irregularly irregular Lungs: Respirations even, regular, and unlabored on room air. Lungs CTA bilaterally, no rhonchi, no rales, no wheezing, and no accessory muscle usage. Ext: ROM intact. No gross muscle atrophy, no edema, no contractures Neuro/psych: Able to follow simple commands (thumbs up, wiggle toes). Based on my assessment of this patient, this patient meets a high complexity level of care. Patient has an acute diagnosis of acute metabolic encephalopathy due to UTI sepsis now complicated by Cefepime toxicitiy that poses a threat to life or bodily function. Severe metabolic encephalopathy: Unclear etiology. Possible seizure activity vs CVA vs Cefepime induced neurotoxicity vs other underlying neurological condition. Keppra weaned off 12/03. Vimpat 100 mg every 12 hours. Hypokalemia: KCl 40 meq IV x 1 12/03. KCl 60 meq IV x 1 12/04. HypoMag: Mag 1.3. 4g Mag sulfate x 1 12/04. MRI brain concerning for microhemorrhage due to amyloid angiopathy: Discussed with Dr. Sutton, not the cause of her altered mentation. Citrobacter freundii UTI: Invanz 1g IV QD. Severe right internal carotid artery stenosis: Carotid duplex shows no s ignificant stenosis. No intervention per Vascular Sx. Diabetes mellitus with hyperglycemia: NovoLog sliding scale and Levemir 15 units daily. Accuchecks Q6H. Hemoglobin A1c 9.8%. Atrial fibrillation with RVR: Cardizem at 2.5 mg/hr. Continue Cardizem 180 mg PO QD and wean off the drip. Discussed with Dr. Sutton, rewards outweigh risks for AC with regard to microhemorrhage seen on MRI and risk for CVA with A-Fib. I will restart Eliquis 5 mg PO BID today. Hypothyroidism: Synthroid 9.375 mcg IV QD switched to 12.5 mcg PO QD. CODE STATUS: FULL CODE. DVT Prophylaxis: Eliquis. GI Prophylaxis: Protonix PO Designated medical POA if patient is not able to make medical decisions for themselves: I have reviewed the following intelligence consultant notes: ID, Neuro note. I have reviewed the results of the following tests: BMP. Mag I have ordered the following tests: ESR/CRP/CPK. BMP. Mag I have discussed the care of this patient with the following independent historian: I have independently interpreted the following test below: CXR I have discussed the management of this patient with the following physician: Discussed with Dr. Sutton, will order ESR/CRP/CPK Objective - Vital Signs Vital signs: Vital Signs Temp 98.8 F 12/04/23 04:00 Pulse 108 H 12/04/23 04:00 Resp 19 12/04/23 04:00 BP 161/86 12/04/23 04:00 Pulse Ox 95 12/04/23 04:00 FiO2 Intake & Output 12/03/23 12/04/23 12/04/23 18:59 06:59 18:59 Intake Total 93.75 Output Total 275 400 Balance -181.25 -400 Intake: Intake, IV Titration 93.75 Amount Diltiazem 125 mg In 93.75 Sodium Chloride 0.9% 100 ml @ 5 MG/HR 5 mls/hr IV .Q24H [facility] Rx#:[id number] Output: Urine 275 400 Other: Voiding Method Indwelling Catheter Indwelling Catheter - Labs CBC & Chem 7: 12/01/23 09:30 12/04/23 07:41 Labs: Abnormal Lab Results - Last 24 Hours (Table) 12/03/23 12/03/23 12/03/23 Range/Units 09:55 11:16 18:02 Potassium 3.1 L (3.5-5.1) mmol/L Glucose 177 H (74-99) mg/dL POC Glucose (mg/dL) 185 H 143 H (70-110) mg/dL Magnesium 1.3 L (1.6-2.3) mg/dL 12/03/23 12/04/23 Range/Units 23:49 06:27 Potassium (3.5-5.1) mmol/L Glucose (74-99) mg/dL POC Glucose (mg/dL) 133 H 136 H (70-110) mg/dL Magnesium (1.6-2.3) mg/dL Microbiology - Last 24 Hours (Table) 11/29/23 11:29 CSF Gram Stain - Final Cerebral Spinal Fluid CSF Culture - Final
[2023-12-04 12:06] LABS: Glucose,Whole Blood 167 mg/dL (70-110)
--- NOTE | 2023-12-04 13:05 | P.PN ---
Subjective Progress Note Date: 12/04/23 I am following up with patient and per primary team they feels she is having severe pain in uppers with movement. Her mentation is improving. Objective - Vital Signs Vital signs: Vital Signs Temp 98.5 F 12/04/23 09:40 Pulse 107 H 12/04/23 09:40 Resp 18 12/04/23 09:40 BP 166/77 12/04/23 09:40 Pulse Ox 93 L 12/04/23 09:40 FiO2 Intake & Output 12/03/23 12/04/23 12/04/23 18:59 06:59 18:59 Intake Total 93.75 Output Total 275 400 Balance -181.25 -400 Intake: Intake, IV Titration 93.75 Amount Diltiazem 125 mg In 93.75 Sodium Chloride 0.9% 100 ml @ 5 MG/HR 5 mls/hr IV .Q24H [facility] Rx#:[id number] Output: Urine 275 400 Other: Voiding Method Indwelling Catheter Indwelling Catheter Indwelling Catheter - Exam General: Lying in bed and does not appear in acute distress. Neuro: Patient is awake and is oriented to self. Not vocal but able to understand reading her lip. She stated she is in hospital. She is following simple commands. Is tracking right and left. No facial weakness. Is in pain upon lifting her upper extremities. - Labs CBC & Chem 7: 12/01/23 09:30 12/04/23 07:41 Labs: Abnormal Lab Results - Last 24 Hours (Table) 12/03/23 12/03/23 12/04/23 Range/Units 18:02 23:49 06:27 Potassium (3.5-5.1) mmol/L Glucose (74-99) mg/dL POC Glucose (mg/dL) 143 H 133 H 136 H (70-110) mg/dL Calcium (8.4-10.2) mg/dL Magnesium (1.6-2.3) mg/dL 12/04/23 12/04/23 Range/Units 07:41 12:03 Potassium 2.9 L (3.5-5.1) mmol/L Glucose 153 H (74-99) mg/dL POC Glucose (mg/dL) 167 H (70-110) mg/dL Calcium 8.2 L (8.4-10.2) mg/dL Magnesium 1.2 L (1.6-2.3) mg/dL Microbiology - Last 24 Hours (Table) 11/29/23 11:29 CSF Gram Stain - Final Cerebral Spinal Fluid CSF Culture - Final Assessment and Plan Assessment: * Altered mental status and patient has developed acute muteness, with myoclonic twitches. Due to underlying UTI, medication induced (cephalosporin >>> and Ke ppra can cause confusion/drowsiness)--mentation improving. * MRI Brain: It showed scattered bilateral foci of blooming artifact suspicious for microhemorrhage throughout the brain, correlate for cerebral amyloid angiopathy. No evidence of intracranial mass, acute/subacute infarct or abnormal enhancement. Nonspecific white matter changes likely related to small vessel ischemic disease. This is not cause of her confusion and likely had this before presenting to hospital. * Acute Citrobacter UTI. Patient was on cefepime, now switched to Invanz. * RIght ICA stenosis that is severe on CTA but not significant on carotid duplex and vascular feels asymptomatic. * Atrial fibrillation, currently on Eliquis * Hypertension * Diabetes Plan: * CTA of head and neck revealed severe proximal right ICA stenosis. Patient started on aspirin 81 mg daily. Patient also on Eliquis 5 mg twice a day but is on hold for possible lumbar puncture. * Check carotid Doppler: less than 50% stenosis of bilateral carotid bifurcation. Nonvisulaization of the left vertebral artery. vascular surgery felt asymptomatic right ICA. * MRI Brain: It showed scattered bilateral foci of blooming artifact suspicious for microhemorrhage throughout the brain, correlate for cerebral amyloid angiopathy. No evidence of intracranial mass, acute/subacute infarct or abnormal enhancement. Nonspecific white matter changes likely related to small vessel ischemic disease. I spoke with the patient the primary team MANAGER BILINGUAL and notified her the microhemorrhages for possible cerebral amyloid angiopathy probably was day or even prior to her admission and that is not the cause for confusion. Need to reconsider anticoagulation on the long-term especially with the increased risk for bleed especially with amyloid. But if felt the benefit outweigh risk then resume anticoagulation. Will defer the use of ant icoagulation to primary team on terminal clerk. * Initial EEG 11/26/2023 was reported abnormal due to presence of diffuse bilaterally symmetric high amplitude frontally maximal sharp-appearing waves seen at 2-3 Hz, suggestive of underlying cortical irritability and tendency for seizures. Intermittent myoclonic jerks weren't noticed with presence of high amplitude myogenic activity lasting for about 1-2 seconds. After the Ativan 1 mg IV push was given, this high amplitude sharp-appearing waves dissi pated along with myoclonic twitches. Otherwise the background was diffusely slow, suggestive of severe encephalopathy. Overall, this EEG may suggest myoclonic status, which was aborted with 1 mg Ativan. Clinical correlation and follow-up EEG recommended. * Patient on Keppra 1500 mg twice a day then started on Vimpat empirically 100mg bid both by Dr. Pino. I titrated the Keppra down during this past one week and totally stopped on 12/02/23. If continues to be confused or sleepy recommend repeat EEG to assess if any discharges or seizuress. If continues to be doing better recommend consideration of going down on Vimpat. * Patient is having pain in uppers extremities with movement. Recommend duplex to rule out any DVT. If negative and continues to have pain then recommend spinal cord imaging * She was declined transfer to [facility] this past Tuesday since was felt due to Cephalosporin toxicity and they did not feels she needed residential EEG. * Repeat EEG performed 11/27/2023 reported as revealed persistently abnormal EEG with presence of background slowing of moderate to severe degree, suggestive of toxic metabolic encephalopathy. Presence of intermittent high amplitude frontally predominant waves, which at times appears triphasic type in quality but sometimes they become rhythmic at 1-2 Hz. Overall this is consistent with severe encephalopathy. When compared to the EEG from 09/25/2024, there is overall improvement in the background and much less frequency of sharp-appearing waves. Recommend continuous EEG monitoring for further evaluation. * Dr. Pino empirically started Vimpat 100 mg IV twice a day. * Repeat prolonged routine EEG on 11/28/2023: This is an abnormal prolonged routine EEG. The background slowing is suggestive of moderate encephalopathy. There is no focal slowing, epileptiform discharge or seizure on the EEG. * CSF study: clear, colorless, nucleated cells is 6 (normal is 0-5), glucose 87, protein is 57 She does not have meningitis or encephalitis from CSF study. CSF gram stain is negative. * Discussed with primary team. Dr. Pino will resume neurology service tomorrow A.M. Time with Patient: Less than 30
[2023-12-04 17:55] LABS: Glucose,Whole Blood 188 mg/dL (70-110)
[2023-12-05 00:04] LABS: Glucose,Whole Blood 134 mg/dL (70-110)
[2023-12-05 05:19] LABS: Glucose,Whole Blood 115 mg/dL (70-110)
[2023-12-05 08:11] LABS: African American GFR (CKD) 83 (>60 ml/min/1.73 sqM); Anion Gap 3 mmol/L; Blood Urea Nitrogen 14 mg/dL (7-17); Calcium 7.5 mg/dL (8.4-10.2); Carbon Dioxide 26 mmol/L (22-30); Chloride 108 mmol/L (98-107); Creatine Kinase 77 U/L (30-135); Glucose 133 mg/dL (74-99); Magnesium 2.1 mg/dL (1.6-2.3); Non-African American GFR(CKD) 72 (>60 ml/min/1.73 sqM); Potassium 3.2 mmol/L (3.5-5.1); Sodium 137 mmol/L (137-145)
[2023-12-05] MEDS: POTASSIUM CHLORIDE 10 MEQ in WATER FOR INJECTION 1 100ML.BAG IVPB SCH (09:02)
[2023-12-05 09:07] LABS: C Reactive Protein 31.9 mg/dL (<1.0)
[2023-12-05 09:09] LABS: Glucose,Whole Blood 119 mg/dL (70-110)
--- NOTE | 2023-12-05 11:06 | US ---
EXAMINATION TYPE: US venous doppler duplex UE DATE OF EXAM: 12/05/2023 COMPARISON: NONE CLINICAL INDICATION: Female, 83 years old with history of swelling and pain; mild swelling, patient o n potassium drip which causes arm to burn, no h/o DVT, order states gravely disabled SIDE PERFORMED: Bilateral Right Arm: Negative for DVT Left Arm: Negative for DVT, unable to view left ulnar veins, patient in too much pain to rotate or ma nipulate arm IMPRESSION: Grayscale, color doppler, spectral doppler imaging performed of the deep veins of the upper extremiti es. There is normal flow, compressibility and vascular waveforms.
[2023-12-05 12:00] LABS: Glucose,Whole Blood 181 mg/dL (70-110)
--- NOTE | 2023-12-05 12:16 | P.PN ---
Subjective Progress Note Date: 12/04/23 Principal diagnosis: Reason for follow-up is drug-resistant UTI Patient is a 83-year-old female with a past medical history significant for diabetes mellitus hypertension atrial fibrillation memory impairment presenting to the hospital for evaluation of weakness and mental status changes did have a positive UA some urinary symptoms concerning for symptomatic UTI urine culture subsequently came back positive with the drug- resistant Citrobacter. On today's evaluation that is 12/04/2023,the patient is lethargic again today and did not provide any history no changes reported by the nursing staff patient remains to be afebrile and is breathing comfortably on a 2 L nasal cannula oxygen no diarrhea reported. Patient did have a creatinine 0.70 Objective - Vital Signs Vital signs: Vital Signs Temp 98.5 F 12/04/23 09:40 Pulse 107 H 12/04/23 09:40 Resp 18 12/04/23 09:40 BP 166/77 12/04/23 09:40 Pulse Ox 93 L 12/04/23 09:40 FiO2 Intake & Output 12/03/23 12/04/23 12/04/23 18:59 06:59 18:59 Intake Total 93.75 Output Total 275 400 Balance -181.25 -400 Intake: Intake, IV Titration 93.75 Amount Diltiazem 125 mg In 93.75 Sodium Chloride 0.9% 100 ml @ 5 MG/HR 5 mls/hr IV .Q24H [facility] Rx#:[id number] Output: Urine 275 400 Other: Voiding Method Indwelling Catheter Indwelling Catheter Indwelling Catheter - Exam GENERAL DESCRIPTION: An elderly female lying in bed in no distress RESPIRATORY SYSTEM: Unlabored breathing , decreased breath sounds at bases HEART: S1 S2 regular rate and rhythm , ABDOMEN: Soft , no tenderness EXTREMITIES: No edema feet - Labs CBC & Chem 7: 12/01/23 09:30 12/05/23 06:57 Labs: Abnormal Lab Results - Last 24 Hours (Table) 12/03/23 12/03/23 12/03/23 Range/Units 09:55 11:16 18:02 Potassium 3.1 L (3.5-5.1) mmol/L Glucose 177 H (74-99) mg/dL POC Glucose (mg/dL) 185 H 143 H (70-110) mg/dL Calcium (8.4-10.2) mg/dL Magnesium 1.3 L (1.6-2.3) mg/dL 12/03/23 12/04/23 12/04/23 Range/Units 23:49 06:27 07:41 Potassium 2.9 L (3.5-5.1) mmol/L Glucose 153 H (74-99) mg/dL POC Glucose (mg/dL) 133 H 136 H (70-110) mg/dL Calcium 8.2 L (8.4-10.2) mg/dL Magnesium 1.2 L (1.6-2.3) mg/dL Microbiology - Last 24 Hours (Table) 11/29/23 11:29 CSF Gram Stain - Final Cerebral Spinal Fluid CSF Culture - Final Assessment and Plan (1) Penicillin allergy Current Visit: Yes Status: Acute Code(s): Z88.0 - ALLERGY STATUS TO PENICILLIN SNOMED Code(s): 28547670 (2) UTI (urinary tract infection) Current Visit: No Status: Acute Code(s): N39.0 - URINARY TRACT INFECTION, SITE NOT SPECIFIED SNOMED Code(s): 39285352 Plan: 1patient was in the hospital mental status changes and weakness which is likely multifactorial patient did have some urinary symptoms and now with evidence of drug-resistant bacteria in the urine likely responsible for some of her symptomatology 2-penicillin allergy that will limit the number of antibiotics safe to use 3-patient did have significant change in her mentation, cefepime was discontinued concerning for possible drug-related however patient has received only 2-3 doses of cefepime the patient did have persistent mentation, the p atient did have LP completed, however did have a normal protein glucose and white count only 6 not suspicious for encephalitis or meningitis 4-patient has received adequate antibiotic therapy for underlying UTI, patient will be monitored closely off antibiotic therapy Dictation was produced using [employer] dictation software. please excuse any grammatical, word or spelling errors. Time with Patient: Less than 30
--- NOTE | 2023-12-05 12:17 | P.PN ---
Subjective Progress Note Date: 12/05/23 Principal diagnosis: Reason for follow-up is drug-resistant UTI Patient is a 83-year-old female with a past medical history significant for diabetes mellitus hypertension atrial fibrillation memory impairment presenting to the hospital for evaluation of weakness and mental status changes did have a positive UA some urinary symptoms concerning for symptomatic UTI urine culture subsequently came back positive with the drug- resistant Citrobacter. On today's evaluation that is 12/05/2023 patient is more awake and alert today patient is afebrile and is currently on 2 L nasal cannula oxygen denies any chest pain or cough no vomiting or diarrhea has been reported by the nursing staff Patient did have a creatinine 0.77, inflammatory markers are elevated Objective - Vital Signs Vital signs: Vital Signs Temp 98.2 F 12/05/23 11:19 Pulse 84 12/05/23 11:19 Resp 18 12/05/23 11:19 BP 111/73 12/05/23 11:19 Pulse Ox 97 12/05/23 11:19 FiO2 Intake & Output 12/04/23 12/05/23 12/05/23 18:59 06:59 18:59 Intake Total 250 360 Output Total 325 400 Balance -325 -150 360 Intake: Oral 250 360 Output: Urine 325 400 Other: Voiding Method Indwelling Catheter Indwelling Catheter Indwelling Catheter - Exam GENERAL DESCRIPTION: An elderly female lying in bed in no distress RESPIRATORY SYSTEM: Unlabored breathing , decreased breath sounds at bases HEART: S1 S2 regular rate and rhythm , ABDOMEN: Soft , no tenderness EXTREMITIES: No edema feet - Labs CBC & Chem 7: 12/01/23 09:30 12/05/23 06:57 Labs: Abnormal Lab Results - Last 24 Hours (Table) 12/04/23 12/05/23 12/05/23 Range/Units 17:48 00:02 05:17 ESR (0-30) mm/Hr Potassium (3.5-5.1) mmol/L Chloride (98-107) mmol/L Glucose (74-99) mg/dL POC Glucose (mg/dL) 188 H 134 H 115 H (70-110) mg/dL Calcium (8.4-10.2) mg/dL C-Reactive Protein (<1.0) mg/dL 12/05/23 12/05/23 12/05/23 Range/Units 06:57 06:57 09:08 ESR 73 H (0-30) mm/Hr Potassium 3.2 L (3.5-5.1) mmol/L Chloride 108 H (98-107) mmol/L Glucose 133 H (74-99) mg/dL POC Glucose (mg/dL) 119 H (70-110) mg/dL Calcium 7.5 L (8.4-10.2) mg/dL C-Reactive Protein 31.9 H (<1.0) mg/dL 12/05/23 Range/Units 11:58 ESR (0-30) mm/Hr Potassium (3.5-5.1) mmol/L Chloride (98-107) mmol/L Glucose (74-99) mg/dL POC Glucose (mg/dL) 181 H (70-110) mg/dL Calcium (8.4-10.2) mg/dL C-Reactive Protein (<1.0) mg/dL Microbiology - Last 24 Hours (Table) 11/29/23 11:29 CSF Gram Stain - Final Cerebral Spinal Fluid CSF Culture - Final Assessment and Plan (1) Penicillin allergy Current Visit: Yes Status: Acute Code(s): Z88.0 - ALLERGY STATUS TO PENICILLIN SNOMED Code(s): 84339542 (2) UTI (urinary tract infection) Current Visit: No Status: Acute Code(s): N39.0 - URINARY TRACT INFECTION, SITE NOT SPECIFIED SNOMED Code(s): 72624199 Plan: 1patient was in the hospital mental status changes and weakness which is likely multifactorial patient did have some urinary symptoms and now with evidence of drug-resistant bacteria in the urine likely responsible for some of her symptomatology 2-penicillin allergy that will limit the number of antibiotics safe to use 3-patient did have significant change in her mentation, cefepime was discontinued concerning for possible drug-related however patient has received only 2-3 doses of cefepime the patient did have persistent mentation, the patient did have LP completed, however did have a normal protein glucose and white count only 6 not suspicious for encephalitis or meningitis 4-patient has received adequate antibiotic therapy for underlying UTI, and the patient seems to be doing well off antibiotic therapy for the last few days and is more awake and alert today did have elevated inflammatory markers we will wait for any further workup from the ordering physician Dictation was produced using [employer] dictation software. please excuse any grammatical, word or spelling errors. Time with Patient: Less than 30
--- NOTE | 2023-12-05 13:21 | P.PN ---
Subjective Progress Note Date: 12/05/23 83-year-old female with a past medical history of chronic atrial fibrillation, insulin-dependent diabetes mellitus, hypertension, and memory impairment. She presented to the emergency department overnight secondary to complaints of confusion, hallucinations and generalized weakness. Vital signs show BP 146/84, HR 97, RR 18, T 97.5 F, and SpO2 of 96% on room air. CBC unremarkable. BMP sodium of 132 and elevated glucose of 412. Lactic acid was elevated at 3.4. Urinalysis positive nitrite, and greater than [address] brain was negative for acute intracranial process showing age-related ce rebral atrophy and moderately advanced chronic small vessel ischemic changes redemonstrated. EKG was completed showing atrial fibrillation with a controlled ventricular rate of 95 bpm. Patient was started on IV antibiotics for treatment of UTI and admitted under services with ID consult. Patient was noted to have episodes of visual hallucinations and confusion concerning for delirium secondary to infection. UCx Citrobacter freundii which was resistant to Rocephin, switched to cefepime. Patient's mentation was improving and we were working towards discharging to [facility]. On the morning of 11/25/2023 mentation significantly changed. Patient was found to have significant muscular tics/myoclonic jerking movements, puffing of cheeks and lips and now nonverbal. Order placed for stat CT brain, CTA head and neck, blood glucose check and EEG. POC glucose was 186. 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 CTA neck revealed severe proximal right internal carotid artery stenosis. MRI brain scattered microhemorrhage correlate for cerebral amyloid angiopathy. Cefepime discontinued and patient started on Invanz for possible neurotoxicity and Acyclovir for meningitis/encephalitis. EEG was reported to be severely abnormal and per neurology request giving patient a loading dose of Keppra and Vimpat. Initial plans for transfer for continuous EEG monitoring. [facility] did not accept transfer, likely a metabolic encephalopathy believed to be resulting from cefepime induced neurotoxicity and patient does not require continuous EEG monitoring. Patient underwent lumbar puncture 11/29/2023. CSF fluid analysis did not indicate infection, Acyclovir was discontinued. 11/30 Patient was seen and examined. Hard to arrouse. CBC Hg 11, Hct 33.9. BMP Cl 113, Cr 1.19, glu 153, alb 3.1. Remains of Cardizem drip at 5 mg/hr. 12/01 Patient was seen and examined. Hard to arrouse but appears to be following commands when examined with Dr. Sutton. Elevated BP of 193/96, Cardizem drip increased to 7.5 mg/hr. Discussed with Dr. Aldana, condition likely not due to Cefepime toxicity. Discussed with Dr. Sutton, possible oversedation from antiepileptic medication, dose of Keppra will be decreased from 1500 mg IV BID to 1000 mg IV BID. CBC unremarkable. BMP Na 147, K 3.4, Cl 115, glu 161. 12/02 Patient was seen and examined. Much more awake. Alert and oriented x 2. Following instructions. Evaluated by ST and started on NDD1 diet with 1:1 supervision and aspiration precautions. Discussed with Dr. Sutton, Keppra has been further decreased to 500 mg IV BID. BMP K 3.1, Cl 109, glu 143. Remains of Cardizem 7.5 units/hr. 12/03 Patient was seen and examined. Opening eyes and following instructions but not speaking. Keppra is now completely weaned off. ID note reviewed, adequate antibiotics for UTI, Ertepenem discontinued. She does have a wet cough. CXR is ordered. BMP is pending this morning. 12/04 Patient was seen and examined. Wispering answers. Significant weakness in all extremities. Appears to be in pain when moving arms. CXR done yesterday shows left basilar atelectasis. Mag level collected yesterday low at 1.3. Restarted on Cardizem 180 mg PO QD and Eliquis 5 mg PO BID. We will attempt to wean off Cardizem drip today. Discussed with Dr. Sutton, plans for EEG on Tuesday. BMP shows K 2.9, glu 153, Ca 8.2. Mag 1.2. 12/05 Patient was seen and examined. Clinically doing the same as yesterday. Off the Cardizem drip. Venous doppler bilateral UE negative for DVT. CPK within no rmal limits. ESR 73 and CRP 31.9. BMP K 3.2, Cl 108, glu 133, Ca 7.5. Mag 2.1. General: Nontoxic and appears stated age. Derm: Skin warm and dry, normal coloration for ethnicity. Head: Atraumatic, normocephalic and symmetric. Eyes: no lid lag, and anicteric sclera. Cardiovascular: Irregularly irregular Lungs: Respirations even, regular, and unlabored on room air. Lungs CTA bilaterally, no rhonchi, no rales, no wheezing, and no accessory muscle usage. Ext: ROM intact. No gross muscle atrophy, no edema, no contractures Neuro/psych: Able to follow simple commands (thumbs up, wiggle toes). Based on my assessment of this patient, this patient meets a high complexity level of care. Patient has an acute diagnosis of acute metabolic encephalopathy due to UTI sepsis now complicated by Cefepime toxicitiy that poses a threat to life or bodily function. Severe metabolic encephalopathy: Unclear etiology. Possible seizure activity vs CVA vs Cefepime induced neurotoxicity vs other underlying neurological condition. Keppra weaned off 12/03. Vimpat 100 mg every 12 hours. Hypokalemia: KCl 40 meq IV x 1 12/03. KCl 60 meq IV x 1 12/04. KCl 40 meq IV x 1 12/05. MRI brain concerning for microhemorrhage due to amyloid angiopathy: Discussed with Dr. Sutton, not the cause of her altered mentation. Citrobacter freundii UTI: Completed course of Invanz on 12/03. Severe right internal carotid artery stenosis: Carotid duplex shows no significant stenosis. No intervention per Vascular Sx. Diabetes mellitus with hyperglycemia: NovoLog sliding scale and Levemir 15 units daily. Accuchecks Q6H. Hemoglobin A1c 9.8%. Atrial fibrillation with RVR: Continue Cardizem 180 mg PO QD. Discussed with Dr. Sutton, rewards outweigh risks for AC with regard to microhemorrhage seen on MRI and risk for CVA with A-Fib. I will restart Eliquis 5 mg PO BID today. Hypothyroidism: Synthroid 12.5 mcg PO QD. Resolved: HypoMag CODE STATUS: FULL CODE. DVT Prophylaxis: Eliquis. GI Prophylaxis: Protonix PO Designated medical POA if patient is not able to make medical decisions for themselves: I have reviewed the following outside solar sales consultant notes: ID, Neuro note. I have reviewed the results of the following tests: ESR/CRP/CPK. BMP. Mag. Venous doppler. I have ordered the following tests: I have discussed the care of this patient with the following independent historian: I have independently interpreted the following test below: I have discussed the management of this patient with the following physician: Discussed with Dr. Pino, has not seen the patient yet, will update once he has. Objective - Vital Signs Vital signs: Vital Signs Temp 98.2 F 12/05/23 11:19 Pulse 84 12/05/23 11:19 Resp 18 12/05/23 12:49 BP 111/73 12/05/23 11:19 Pulse Ox 97 12/05/23 11:19 FiO2 Intake & Output 12/04/23 12/05/23 12/05/23 18:59 06:59 18:59 Intake Total 250 360 Output Total 325 400 Balance -325 -150 360 Intake: Oral 250 360 Output: Urine 325 400 Other: Voiding Method Indwelling Catheter Indwelling Catheter Indwelling Catheter - Labs CBC & Chem 7: 12/01/23 09:30 12/05/23 06:57 Labs: Abnormal Lab Results - Last 24 Hours (Table) 12/04/23 12/05/23 12/05/23 Range/Units 17:48 00:02 05:17 ESR (0-30) mm/Hr Potassium (3.5-5.1) mmol/L Chloride (98-107) mmol/L Glucose (74-99) mg/dL POC Glucose (mg/dL) 188 H 134 H 115 H (70-110) mg/dL Calcium (8.4-10.2) mg/dL C-Reactive Protein (<1.0) mg/dL 12/05/23 12/05/23 12/05/23 Range/Units 06:57 06:57 09:08 ESR 73 H (0-30) mm/Hr Potassium 3.2 L (3.5-5.1) mmol/L Chloride 108 H (98-107) mmol/L Glucose 133 H (74-99) mg/dL POC Glucose (mg/dL) 119 H (70-110) mg/dL Calcium 7.5 L (8.4-10.2) mg/dL C-Reactive Protein 31.9 H (<1.0) mg/dL 12/05/23 Range/Units 11:58 ESR (0-30) mm/Hr Potassium (3.5-5.1) mmol/L Chloride (98-107) mmol/L Glucose (74-99) mg/dL POC Glucose (mg/dL) 181 H (70-110) mg/dL Calcium (8.4-10.2) mg/dL C-Reactive Protein (<1.0) mg/dL Microbiology - Last 24 Hours (Table) 11/29/23 11:29 CSF Gram Stain - Final Cerebral Spinal Fluid CSF Culture - Final
[2023-12-05] MEDS ORDERED: POTASSIUM CHLORIDE 10 MEQ in WATER FOR INJECTION 1 100ML.BAG IVPB SCH (14:00)
[2023-12-05 17:33] LABS: Glucose,Whole Blood 243 mg/dL (70-110)
[2023-12-06 00:01] LABS: Glucose,Whole Blood 241 mg/dL (70-110)
[2023-12-06 06:16] LABS: Glucose,Whole Blood 155 mg/dL (70-110)
--- NOTE | 2023-12-06 09:29 | P.PN ---
Subjective Progress Note Date: 12/05/23 12/05/2023: Patient has been seen by Dr. Ernie Sutton since 11/27/2023. Please refer to his notes for details. Patient at present is laying in the bed, appears very comfortable. Patient is still slightly confused, states she has been here since end of July. Patient states that she came to the hospital initially because she suffered from a fall while she was carrying things out in the car and fell. Patient at present denies any headache. She states that she sometimes gets "sinus headache". Patient states "I fell yesterday". I do not believe it is correct statement. 11/27/2023: Patient was seen for a follow-up. Patient has become further worse. She continues to be mute, but now is very groggy, drowsy. Myoclonic twitching has completely resolved. Drowsiness could be related to Keppra. Patient is afebrile, white cells are normal. Patient is not able to take anything by mouth. The last dose of Eliquis she received was yesterday morning at 6:33 AM. She did not receive the night dose of Eliquis yesterday and this morning. Patient started on aspirin 300 mg rectally. Objective - Vital Signs Vital signs: Vital Signs Temp 97.9 F 12/05/23 15:21 Pulse 82 12/05/23 15:21 Resp 18 12/05/23 15:21 BP 114/75 12/05/23 15:21 Pulse Ox 100 12/05/23 15:21 FiO2 Intake & Output 12/04/23 12/05/23 12/05/23 18:59 06:59 18:59 Intake Total 250 596 Output Total 325 400 275 Balance -325 -150 321 Intake: Oral 250 596 Output: Urine 325 400 275 Other: Voiding Method Indwelling Catheter Indwelling Catheter Indwelling Catheter - Exam Patient is fully alert and awake. Patient states that she lives in [place] in [place]. She believes it is the month of February and the year is 2025. She knows that she is in [facility]. Her speech and language functions appears normal. Detailed cognitive function testing deferred. 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 Her neck is supple. - Labs CBC & Chem 7: 12/01/23 09:30 12/05/23 06:57 Labs: Abnormal Lab Results - Last 24 Hours (Table) 12/05/23 12/05/23 12/05/23 Range/Units 00:02 05:17 06:57 ESR 73 H (0-30) mm/Hr Potassium (3.5-5.1) mmol/L Chloride (98-107) mmol/L Glucose (74-99) mg/dL POC Glucose (mg/dL) 134 H 115 H (70-110) mg/dL Calcium (8.4-10.2) mg/dL C-Reactive Protein (<1.0) mg/dL 12/05/23 12/05/23 12/05/23 Range/Units 06:57 09:08 11:58 ESR (0-30) mm/Hr Potassium 3.2 L (3.5-5.1) mmol/L Chloride 108 H (98-107) mmol/L Glucose 133 H (74-99) mg/dL POC Glucose (mg/dL) 119 H 181 H (70-110) mg/dL Calcium 7.5 L (8.4-10.2) mg/dL C-Reactive Protein 31.9 H (<1.0) mg/dL 12/05/23 Range/Units 17:31 ESR (0-30) mm/Hr Potassium (3.5-5.1) mmol/L Chloride (98-107) mmol/L Glucose (74-99) mg/dL POC Glucose (mg/dL) 243 H (70-110) mg/dL Calcium (8.4-10.2) mg/dL C-Reactive Protein (<1.0) mg/dL Assessment and Plan Assessment: * Acute metabolic encephalopathy, that seems to have resolved clinically. Patient had developed myoclonic jerks, and muteness, that has resolved. * Acute Citrobacter UTI. Patient was on cefepime, now switched to Invanz. * MRI Brain: It showed scattered bilateral foci of blooming artifact suspicious for microhemorrhage throughout the brain, correlate for cerebral amyloid angiopathy. No evidence of intracranial mass, acute/subacute infarct or abnormal enhancement. Nonspecific white matter changes likely related to small vessel ischemic disease. This is not cause of her confusion and likely had this before presenting to hospital. * Atrial fibrillation, currently on Eliquis * Hypertension * Diabetes Plan: * CTA of head and neck revealed severe proximal right ICA stenosis. Patient started on aspirin 81 mg daily. Patient also on Eliquis 5 mg twice a day but is on hold for possible lumbar puncture. * Check carotid Doppler: less than 50% stenosis of bilateral carotid bifurcation. Nonvisulaization of the left vertebral artery. vascular surgery felt asymptomatic right ICA. * MRI Brain: It showed scattered bilateral foci of blooming artifact suspicious for microhemorrhage throughout the brain, correlate for cerebral amyloid angiopathy. No evidence of intracranial mass, acute/subacute infarct or abnormal enhancement. Nonspecific white matter changes likely related to small vessel ischemic disease. * Dr. Sutton spoke with the patient the primary team CAFE ASSISTANT and notified her the microhemorrhages for possible cerebral amyloid angiopathy probably was there even prior to her admission and that is not the cause for confusion. Need to reconsider anticoagulation on the long-term especially with the increased risk for bleed especially with amyloid. But if felt the benefit outweigh risk then resume anticoagulation. Will defer the use of anticoagulation to primary team. * Initial EEG 11/26/2023 was reported abnormal due to presence of diffuse bilaterally symmetric high amplitude frontally maximal sharp-appearing waves seen at 2-3 Hz, suggestive of underlying cortical irritability and tendency for seizures. Intermittent myoclonic jerks weren't noticed with presence of high amplitude myogenic activity lasting for about 1-2 seconds. After the Ativan 1 mg IV push was given, this high amplitude sharp-appearing waves dissipated along with myoclonic twitches. Otherwise the background was diffusely slow, suggestive of severe encephalopathy. Overall, this EEG may suggest myoclonic status, which was aborted with 1 mg Ativan. Clinical correlation and follow-up EEG recommended. * Dr. Sutton has tapered off Keppra as of 12/02/23. If mentation becomes back to baseline, we will consider tapering off Vimpat. We will switch from Vimpat IV to oral form. * Doppler ultrasound of bilateral upper extremities negative for DVT. * She was declined transfer to [facility] this past Tuesday since was felt due to Cephalosporin toxicity and they did not feels she needed detention EEG. * Repeat EEG performed 11/27/2023 reported as revealed persistently abnormal EEG with presence of background slowing of moderate to severe degree, suggestive of toxic metabolic encephalopathy. Presence of intermittent high amplitude frontally predominant waves, which at times appears triphasic type in quality but sometimes they become rhythmic at 1-2 Hz. Overall this is consistent with severe encephalopathy. When compared to the EEG from 09/25/2024, there is overall improvement in the background and much less frequency of sharp-appearing waves. Recommend continuous EEG monitoring for further evaluation. * Repeat prolonged EEG on 11/28/2023: This is an abnormal prolonged routine EEG. The background slowing is suggestive of moderate encephalopathy. There is no focal slowing, epileptiform discharge or seizure on the EEG. * CSF study: clear, colorless, nucleated cells is 6 (normal is 0-5), glucose 87, protein is 57 She does not have meningitis or encephalitis from CSF study. CSF gram stain is negative. Await viral panel PCR. * Discussed with primary team. * Neurologically clear for transfer to rehab, if cleared medically.
[2023-12-06 11:51] LABS: HCT 33.4 % (34.0-46.0); HGB 10.9 gm/dL (11.4-16.0); MCHC 32.5 g/dL (31.0-37.0); MCV 89.2 fL (80.0-100.0); Mean Platelet Volume 9.7; Platelet Count 205 k/uL (150-450); RBC 3.75 m/uL (3.80-5.40); WBC 6.9 k/uL (3.8-10.6)
[2023-12-06 12:01] LABS: Glucose,Whole Blood 265 mg/dL (70-110)
[2023-12-06 12:12] LABS: African American GFR (CKD) >90 (>60 ml/min/1.73 sqM); Anion Gap 5 mmol/L; Blood Urea Nitrogen 10 mg/dL (7-17); Calcium 7.9 mg/dL (8.4-10.2); Carbon Dioxide 24 mmol/L (22-30); Chloride 109 mmol/L (98-107); Glucose 271 mg/dL (74-99); Non-African American GFR(CKD) 85 (>60 ml/min/1.73 sqM); Potassium 3.6 mmol/L (3.5-5.1); Sodium 138 mmol/L (137-145)
--- NOTE | 2023-12-06 13:24 | P.PN ---
Subjective Progress Note Date: 12/06/23 Principal diagnosis: Reason for follow-up is drug-resistant UTI Patient is a 83-year-old female with a past medical history significant for diabetes mellitus hypertension atrial fibrillation memory impairment presenting to the hospital for evaluation of weakness and mental status changes did have a positive UA some urinary symptoms concerning for symptomatic UTI urine culture subsequently came back positive with the drug- resistant Citrobacter. On today's evaluation that is 12/06/2023, the patient continues to be afebrile, the patient is on 2 L nasal cannula oxygen and breathing comfortably, The patient is more awake and alert today denies having any chest pain or cough, the patient denies having any abdominal pain no vomiting or any diarrhea has been reported by the nursing staff. Patient did have white count of 6.1, creatinine 0.59 Objective - Vital Signs Vital signs: Vital Signs Temp 98.0 F 12/06/23 12:00 Pulse 90 12/06/23 12:00 Resp 18 12/06/23 12:00 BP 126/78 12/06/23 12:00 Pulse Ox 98 12/06/23 12:00 FiO2 Intake & Output 12/05/23 12/06/23 12/06/23 18:59 06:59 18:59 Intake Total 596 118 Output Total 275 450 500 Balance 321 450 -382 Intake: Oral 596 118 Output: Urine 275 450 500 Other: Voiding Method Indwelling Catheter Indwelling Catheter Indwelling Catheter - Exam GENERAL DESCRIPTION: An elderly female lying in bed in no distress RESPIRATORY SYSTEM: Unlabored breathing , decreased breath sounds at bases HEART: S1 S2 regular rate and rhythm , ABDOMEN: Soft , no tenderness EXTREMITIES: No edema feet - Labs CBC & Chem 7: 12/06/23 10:46 12/06/23 10:46 Labs: Abnormal Lab Results - Last 24 Hours (Table) 12/05/23 12/05/23 12/06/23 Range/Units 17:31 23:59 06:15 RBC (3.80-5.40) m/uL Hgb (11.4-16.0) gm/dL Hct (34.0-46.0) % Chloride (98-107) mmol/L Glucose (74-99) mg/dL POC Glucose (mg/dL) 243 H 241 H 155 H (70-110) mg/dL Calcium (8.4-10.2) mg/dL 12/06/23 12/06/23 12/06/23 Range/Units 10:46 10:46 11:59 RBC 3.75 L (3.80-5.40) m/uL Hgb 10.9 L (11.4-16.0) gm/dL Hct 33.4 L (34.0-46.0) % Chloride 109 H (98-107) mmol/L Glucose 271 H (74-99) mg/dL POC Glucose (mg/dL) 265 H (70-110) mg/dL Calcium 7.9 L (8.4-10.2) mg/dL Assessment and Plan (1) Penicillin allergy Current Visit: Yes Status: Acute Code(s): Z88.0 - ALLERGY STATUS TO PENICILLIN SNOMED Code(s): 33760330 (2) UTI (urinary tract infection) Current Visit: No Status: Acute Code(s): N39.0 - URINARY TRACT INFECTION, SITE NOT SPECIFIED SNOMED Code(s): 88316965 Plan: 1patient was in the hospital mental status changes and weakness which is likely multifactorial patient did have some urinary symptoms and now with evidence of d rug-resistant bacteria in the urine likely responsible for some of her symptomatology 2-penicillin allergy that will limit the number of antibiotics safe to use 3-patient underlying UTI has been adequately treated currently being monitored closely off antibiotic therapy Dictation was produced using [employer] dictation software. please excuse any grammatical, word or spelling errors. Time with Patient: Less than 30
--- NOTE | 2023-12-06 13:53 | P.PN ---
Subjective Progress Note Date: 12/06/23 83-year-old female with a past medical history of chronic atrial fibrillation, insulin-dependent diabetes mellitus, hypertension, and memory impairment. She presented to the emergency department overnight secondary to complaints of confusion, hallucinations and generalized weakness. Vital signs show BP 146/84, HR 97, RR 18, T 97.5 F, and SpO2 of 96% on room air. CBC unremarkable. BMP sodium of 132 and elevated glucose of 412. Lactic acid was elevated at 3.4. Urinalysis positive nitrite, and greater than 182 WBCs. Patient was started on IV Rocephin for treatment of UTI and admitted under services with ID consult. Patient was noted to have episodes of visual hallucinations and confusion concerning for delirium secondary to infection. UCx Citrobacter freundii which was resistant to Rocephin, switched to Cefepime. Patient's mentation was improving and we were working towards discharging to [facility]. On the morning of 11/25/2023 mentation significantly changed. Patient was found to have significant muscular tics/myoclonic jerking movements, puffing of cheeks and lips and now nonverbal. Order placed for stat CT brain, CTA head and neck, blood glucose check and EEG. POC glucose was 186. 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 CTA neck revealed severe proximal right internal carotid artery stenosis. MRI brain scattered microhemorrhage correlate for cerebral amyloid angiopathy. Cefepime discontinued and patient started on Invanz for possible neurotoxicity and Acyclovir for meningitis/encephalitis. EEG was reported to be severely abnormal and per neurology request giving patient a loading dose of Keppra and Vimpat. Initial plans for transfer for continuous EEG monitoring. [facility] did not accept transfer, likely a metabolic encephalopathy believed to be resulting from cefepime induced neurotoxicity and patient does not require continuous EEG monitoring. Patient underwent lumbar puncture 11/29/2023. CSF fluid analysis did not indicate infection, Acyclovir was discontinued. Her Keppra was weaned off from 12/01-12/03 and her mentation did slowly improved. Evaluated by ST and started on NDD1 diet with 1:1 supervision and aspiration precautions. She completed a course of Invanz for her UTI and antibiotics were discontinued on 12/03. 12/06 Patient was seen and examined. Her weakness has significantly improved compared to yesterday. She is now able to move her arms and feet (previously only able to wiggle her toes as of yesterday, PT documented that she is unable to sit unassisted along the side of the bed on 12/05). She is now able to speak clearly (previously whispering as of yesterday). Nursing does report some hallucinations (patient stated her dog was by her bedside). Neurology note reviewed, switch Vimpat IV to PO, cleared for discharge from neurological perspective. Discussed with case management, working on SNF placement. Discussed with RN, will attempt to get PT and OT to work with her aggressively. CBC Hg 10.9 Hct 33.4. BMP Cl 109, glu 271, Ca 7.9. General: Nontoxic and appears stated age. Derm: Skin warm and dry, normal coloration for ethnicity. Head: Atraumatic, normocephalic and symmetric. Eyes: no lid lag, and anicteric sclera. Cardiovascular: Irregularly irregular Lungs: Respirations even, regular, and unlabored on room air. Lungs CTA bilaterally, no rhonchi, no rales, no wheezing, and no accessory muscle usage. Ext: ROM intact. No gross muscle atrophy, no edema, no contractures Neuro/psych: Alert and oriented x 2. Strength 3-4/5 in all 4 extremities. No focal neurological deficits. Based on my assessment of this patient, this patient meets a moderate complexity level of care. Patient has an acute diagnosis of acute metabolic encephalopathy due to UTI sepsis now complicated by Cefepime toxicitiy that poses a threat to life or bodily function. Severe metabolic encephalopathy: Unclear etiology. Possible seizure activity vs CVA vs Cefepime induced neurotoxicity vs other underlying neurological condition. Keppra weaned off 12/03. Vimpat 100 mg PO every 12 hours. MRI brain concerning for microhemorrhage due to amyloid angiopathy: Discussed with Dr. Sutton, not the cause of her altered mentation. Citrobacter freundii UTI: Completed course of Invanz on 12/03. Severe right internal carotid artery stenosis: Carotid duplex shows no significant stenosis. No intervention per Vascular Sx. Diabetes mellitus with hyperglycemia: NovoLog sliding scale and Levemir 15 units daily. Accuchecks Q6H. Hemoglobin A1c 9.8%. Atrial fibrillation with RVR: Continue Cardizem 180 mg PO QD. Discussed with Dr. Sutton, rewards outweigh risks for AC with regard to microhemorrhage seen on MRI and risk for CVA with A-Fib. Eliquis 5 mg PO BID. Hypothyroidism: Synthroid 12.5 mcg PO QD. Resolved: HypoMag, HypoK CODE STATUS: FULL CODE. DVT Prophylaxis: Eliquis. GI Prophylaxis: Protonix PO Designated medical POA if patient is not able to make medical decisions for themselves: I have reviewed the following advertising sales consultant notes: ID, Neuro note. I have reviewed the results of the following tests: CBC, BMP. I have ordered the following tests: I have discussed the care of this patient with the following independent historian: Discussed with RN and Case management. I have independently interpreted the following test below: I have discussed the management of this patient with the following physician: Objective - Vital Signs Vital signs: Vital Signs Temp 98.1 F 12/06/23 04:00 Pulse 83 12/06/23 04:00 Resp 18 12/06/23 04:00 BP 110/49 12/06/23 04:00 Pulse Ox 98 12/06/23 04:00 FiO2 Intake & Output 12/05/23 12/06/23 12/06/23 18:59 06:59 18:59 Intake Total 596 Output Total 275 450 Balance 321 -450 Intake: Oral 596 Output: Urine 275 450 Other: Voiding Method Indwelling Catheter Indwelling Catheter - Labs CBC & Chem 7: 12/06/23 10:46 12/06/23 10:46 Labs: Abnormal Lab Results - Last 24 Hours (Table) 12/05/23 12/05/23 12/05/23 Range/Units 06:57 06:57 09:08 ESR 73 H (0-30) mm/Hr POC Glucose (mg/dL) 119 H (70-110) mg/dL C-Reactive Protein 31.9 H (<1.0) mg/dL 12/05/23 12/05/23 12/05/23 Range/Units 11:58 17:31 23:59 ESR (0-30) mm/Hr POC Glucose (mg/dL) 181 H 243 H 241 H (70-110) mg/dL C-Reactive Protein (<1.0) mg/dL 12/06/23 Range/Units 06:15 ESR (0-30) mm/Hr POC Glucose (mg/dL) 155 H (70-110) mg/dL C-Reactive Protein (<1.0) mg/dL
--- NOTE | 2023-12-06 15:12 | CDI ---
Documentation Clarification Form Date: 12/06/2023 02:54:41 PM From: Alana Mg RN CCDS Phone: [phone] Admit Date: 11/22/2023 12:41:00 AM Patient Name: Flores Chadwick Visit Number: [id number] Discharge Date: ATTENTION: The Clinical Documentation Specialists (CDI) and [facility] Coding Staff appreciate your assistance in clarifying documentation. Please respond to the clarification below the line at the bottom and electronically sign. The CDI & [facility] Coding staff will review the response and follow-up if needed. Please note: Queries are made part of the Legal Health Record. If you have any questions, please contact the author of this message via ITS. Dr. Donte Fink The patient has Sepsis documented medicine nots, starting on 11/30. Based on this information and the findings below, is there an additional diagnosis that is clinically appropriate for this patient? History/Risk Factors: 83-year-old female presents to the ED with generalized weakness, increased confusion patient gets this way when she has a UTI. Medical History: HTN, AFIB, COPD and COPD, 11/22, H&P Clinical Indicators: WBC, 11/21: 5 Lactic acid, 11/21: 3.4 Urine culture, 11/22: Citrobacter freundii Vitals signs, 11/21: B/P 146/84; HR 97; Temp 97.5F Oral; RR 18; SpO2 96% ra Treatment: 11/22 0.9NS 1,000mls@100 mls/hr IV; ID Consult: Antibiotics: 11/22 Ceftriaxone 1gm 50mls @ 100mls/hr x 1; 11/23 11/24 Ceftriaxone 1gm; 11/26 50mls@100mls hr IVPB Q24H, 11/24 11/26 Cefepime HCI 2gm 100mls @ 25mls/hr IVPB Q8H; 11/26 Ertapenem 1gm 50mls@100mls/hr IVPB; IV Bolus: 11/22 0.9NS 1l IV Bolus; Is there an additional diagnosis that is clinically appropriate for this patient? [ x ] Sepsis, present on admission [ ] Sepsis, developed during stay, not present on admission [ ] Other, please specify [ ] Unable to determine SIRS Criteria: 2 or more of the following may indicate SIRS Temperature < 96.8F (36C) or > 101.0F (38.3C) Heart Rate > 90 bpm Respiratory Rate > 20 breaths/min or PaCO2 < 32 mmHg White Blood Cell Count > 12,000 or < 4,000 cells/mm3 or > 10% bands (Template Last Reviewed: October 2022) MTDD
[2023-12-06 16:48] LABS: Glucose,Whole Blood 252 mg/dL (70-110)
[2023-12-06 20:30] LABS: Glucose,Whole Blood 147 mg/dL (70-110)
[2023-12-06] MEDS: LACOSAMIDE 50 MG TABLET PO SCH (21:02)
[2023-12-07 00:03] LABS: Glucose,Whole Blood 96 mg/dL (70-110)
[2023-12-07 06:00] LABS: Glucose,Whole Blood 188 mg/dL (70-110)
--- NOTE | 2023-12-07 10:21 | P.PN ---
Subjective Progress Note Date: 12/06/23 12/06/2023: Patient was seen for a follow-up. Patient denies headache. She continues to be somewhat confused, delirious. Speech and language functions are normal. 12/05/2023: Patient has been seen by Dr. Ernie Sutton since 11/27/2023. Please refer to his notes for details. Patient at present is laying in the bed, appears very comfortable. Patient is still slightly confused, states she has been here since end of July. Patient states that she came to the hospital initially because she suffered from a fall while she was carrying things out in the car and fell. Patient at present denies any headache. She states that she sometimes gets "sinus headache". Patient states "I fell yesterday". I do not believe it is correct statement. 11/27/2023: Patient was seen for a follow-up. Patient has become further worse. She continues to be mute, but now is very groggy, drowsy. Myoclonic twitching has completely resolved. Drowsiness could be related to Keppra. Patient is afebrile, white cells are normal. Patient is not able to take anything by mouth. The last dose of Eliquis she received was yesterday morning at 6:33 AM. She did not receive the night dose of Eliquis yesterday and this morning. Patient started on aspirin 300 mg rectally. Objective - Vital Signs Vital signs: Vital Signs Temp 98.0 F 12/06/23 12:00 Pulse 90 12/06/23 14:00 Resp 18 12/06/23 14:00 BP 126/78 12/06/23 12:00 Pulse Ox 98 12/06/23 12:00 FiO2 Intake & Output 12/05/23 12/06/23 12/06/23 18:59 06:59 18:59 Intake Total 596 354 Output Total 275 450 500 Balance 321 -450 -146 Intake: Oral 596 354 Output: Urine 275 450 500 Other: Voiding Method Indwelling Catheter Indwelling Catheter Indwelling Catheter - Exam Patient is fully alert and awake. On asking the city, patient states "the name has changed", perhaps referring to [facility] for [facility]. Patient later states that she is in [place] in [place]. However she is not very sure, changes the statement and is still slightly confused. Patient states it is end of March and the year is 2003. Her speech and language functions appears normal. Detailed cognitive function testing deferred. 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 Her neck is supple. - Labs CBC & Chem 7: 12/06/23 10:46 12/06/23 10:46 Labs: Abnormal Lab Results - Last 24 Hours (Table) 12/05/23 12/06/23 12/06/23 Range/Units 23:59 06:15 10:46 RBC 3.75 L (3.80-5.40) m/uL Hgb 10.9 L (11.4-16.0) gm/dL Hct 33.4 L (34.0-46.0) % Chloride (98-107) mmol/L Glucose (74-99) mg/dL POC Glucose (mg/dL) 241 H 155 H (70-110) mg/dL Calcium (8.4-10.2) mg/dL 12/06/23 12/06/23 12/06/23 Range/Units 10:46 11:59 16:46 RBC (3.80-5.40) m/uL Hgb (11.4-16.0) gm/dL Hct (34.0-46.0) % Chloride 109 H (98-107) mmol/L Glucose 271 H (74-99) mg/dL POC Glucose (mg/dL) 265 H 252 H (70-110) mg/dL Calcium 7.9 L (8.4-10.2) mg/dL Assessment and Plan Assessment: * Acute metabolic encephalopathy, that seems to have resolved clinically. Patient had developed myoclonic jerks, and muteness, that has resolved. * Acute Citrobacter UTI. Patient was on cefepime, now switched to Invanz. * MRI Brain: It showed scattered bilateral foci of blooming artifact suspicious for microhemorrhage throughout the brain, correlate for cerebral amyloid angiopathy. No evidence of intracranial mass, acute/subacute infarct or abnormal enhancement. Nonspecific white matter changes likely related to small vessel ischemic disease. This is not cause of her confusion and likely had this before presenting to hospital. * Atrial fibrillation, currently on Eliquis * Hypertension * Diabetes Plan: * CTA of head and neck revealed severe proximal right ICA stenosis. Patient started on aspirin 81 mg daily. Patient also on Eliquis 5 mg twice a day. * Check carotid Doppler: less than 50% stenosis of bilateral carotid bifurcation. Nonvisulaization of the left vertebral artery. vascular surgery felt asymptomatic right ICA. * MRI Brain: It showed scattered bilateral foci of blooming artifact suspicious for microhemorrhage throughout the brain, correlate for cerebral amyloid ang iopathy. No evidence of intracranial mass, acute/subacute infarct or abnormal enhancement. Nonspecific white matter changes likely related to small vessel ischemic disease. * Dr. Sutton spoke with the patient the primary team [employer] and notified her the microhemorrhages for possible cerebral amyloid angiopathy probably was there even prior to her admission and that is not the cause for confusion. Need to reconsider anticoagulation on the long-term especially with the increased risk for bleed especially with amyloid. But if felt the benefit outweigh risk then resume anticoagulation. Will defer the use of anticoagulation to primary team. * Initial EEG 11/26/2023 was reported abnormal due to presence of diffuse bilaterally symmetric high amplitude frontally maximal sharp-appearing waves seen at 2-3 Hz, suggestive of underlying cortical irritability and tendency for seizures. Intermittent myoclonic jerks weren't noticed with presence of high amplitude myogenic activity lasting for about 1-2 seconds. After the Ativan 1 mg IV push was given, this high amplitude sharp-appearing waves dissipated along with myoclonic twitches. Otherwise the background was diffusely slow, suggestive of severe encephalopathy. Overall, this EEG may suggest myoclonic status, which was aborted with 1 mg Ativan. Clinical correlation and follow-up EEG recommended. * Dr. Sutton has tapered off Keppra as of 12/02/23. If mentation becomes back to baseline, we will consider tapering off Vimpat. We will switch from Vimpat IV to oral form. * Doppler ultrasound of bilateral upper extremities negative for DVT. * She was declined transfer to [facility] this past Tuesday since was felt due to Cephalosporin toxicity and they did not feels she needed senior living EEG. * Repeat EEG performed 11/27/2023 reported as revealed persistently abnormal EEG with presence of background slowing of moderate to severe degree, suggestive of toxic metabolic encephalopathy. Presence of intermittent high amplitude frontally predominant waves, which at times appears triphasic type in quality but sometimes they become rhythmic at 1-2 Hz. Overall this is consistent with severe encephalopathy. When compared to the EEG from 09/25/2024, there is overall improvement in the background and much less frequency of sharp-appearing waves. Recommend continuous EEG monitoring for further evaluation. * Repeat prolonged EEG on 11/28/2023: This is an abnormal prolonged routine EEG. The background slowing is suggestive of moderate encephalopathy. There is no focal slowing, epileptiform discharge or seizure on the EEG. * CSF study: clear, colorless, nucleated cells is 6 (normal is 0-5), glucose 87, protein is 57 She does not have meningitis or encephalitis from CSF study. CSF gram stain is negative. Await viral panel PCR. I called the lab and ordered the viral panel, as it was not acknowledged by the nursing staff, and the lab was not able to receive the order for viral panel. * Discussed with primary team.
[2023-12-07 11:27] LABS: HCT 31.8 % (34.0-46.0); HGB 10.4 gm/dL (11.4-16.0); MCH 28.3 pg (25.0-35.0); MCHC 32.7 g/dL (31.0-37.0); MCV 86.7 fL (80.0-100.0); Mean Platelet Volume 9.4; Platelet Count 241 k/uL (150-450); RBC 3.67 m/uL (3.80-5.40); RDW 14.1 % (11.5-15.5); WBC 7.8 k/uL (3.8-10.6)
[2023-12-07 11:43] LABS: African American GFR (CKD) >90 (>60 ml/min/1.73 sqM); Anion Gap 5 mmol/L; Blood Urea Nitrogen 6 mg/dL (7-17); Calcium 8.2 mg/dL (8.4-10.2); Carbon Dioxide 31 mmol/L (22-30); Chloride 103 mmol/L (98-107); Glucose 266 mg/dL (74-99); Non-African American GFR(CKD) 87 (>60 ml/min/1.73 sqM); Sodium 139 mmol/L (137-145)
[2023-12-07 11:45] LABS: Potassium 3.2 mmol/L (3.5-5.1)
--- NOTE | 2023-12-07 11:45 | P.PN ---
Subjective Progress Note Date: 12/07/23 Principal diagnosis: Reason for follow-up is drug-resistant UTI Patient is a 83-year-old female with a past medical history significant for diabetes mellitus hypertension atrial fibrillation memory impairment presenting to the hospital for evaluation of weakness and mental status changes did have a positive UA some urinary symptoms concerning for symptomatic UTI urine culture subsequently came back positive with the drug- resistant Citrobacter. On today's evaluation that is 12/07/2023, Patient is afebrile patient is currently on room air Sleepy but arousable when asked specifically denies any chest pain or cough no vomiting or diarrhea has been reported. Patient white count 7.8 today Objective - Vital Signs Vital signs: Vital Signs Temp 98.6 F 12/07/23 09:50 Pulse 111 H 12/07/23 09:50 Resp 16 12/07/23 09:50 BP 128/75 12/07/23 09:50 Pulse Ox 94 L 12/07/23 09:50 FiO2 Intake & Output 12/06/23 12/07/23 12/07/23 18:59 06:59 18:59 Intake Total 354 118 Output Total 1000 1825 500 Balance -646 -1825 -382 Intake: Oral 354 118 Output: Urine 1000 1825 500 Other: Voiding Method Indwelling Catheter Indwelling Catheter Indwelling Catheter - Exam GENERAL DESCRIPTION: An elderly female lying in bed in no distress RESPIRATORY SYSTEM: Unlabored breathing , decreased breath sounds at bases HEART: S1 S2 regular rate and rhythm , ABDOMEN: Soft , no tenderness EXTREMITIES: No edema feet - Labs CBC & Chem 7: 12/07/23 10:58 12/06/23 10:46 Labs: Abnormal Lab Results - Last 24 Hours (Table) 12/06/23 12/06/23 12/06/23 Range/Units 10:46 10:46 11:59 RBC 3.75 L (3.80-5.40) m/uL Hgb 10.9 L (11.4-16.0) gm/dL Hct 33.4 L (34.0-46.0) % Chloride 109 H (98-107) mmol/L Glucose 271 H (74-99) mg/dL POC Glucose (mg/dL) 265 H (70-110) mg/dL Calcium 7.9 L (8.4-10.2) mg/dL 12/06/23 12/06/2324 Range/Units 16:46 20:29 05:58 RBC (3.80-5.40) m/uL Hgb (11.4-16.0) gm/dL Hct (34.0-46.0) % Chloride (98-107) mmol/L Glucose (74-99) mg/dL POC Glucose (mg/dL) 252 H 147 H 188 H (70-110) mg/dL Calcium (8.4-10.2) mg/dL 12/07/23 Range/Units 10:58 RBC 3.67 L (3.80-5.40) m/uL Hgb 10.4 L (11.4-16.0) gm/dL Hct 31.8 L (34.0-46.0) % Chloride (98-107) mmol/L Glucose (74-99) mg/dL POC Glucose (mg/dL) (70-110) mg/dL Calcium (8.4-10.2) mg/dL Assessment and Plan (1) Penicillin allergy Current Visit: Yes Status: Acute Code(s): Z88.0 - ALLERGY STATUS TO PENICILLIN SNOMED Code(s): 53069055 (2) UTI (urinary tract infection) Current Visit: No Status: Acute Code(s): N39.0 - URINARY TRACT INFECTION, SITE NOT SPECIFIED SNOMED Code(s): 48697425 Plan: 1patient was in the hospital mental status changes and weakness which is likely multifactorial patient did have some urinary symptoms and now with evidence of drug-resistant bacteria in the urine likely responsible for some of her symptomatology 2--patient underlying UTI has been adequately treated, the patient is afebrile white count has been normal we will continue monitor closely off antibiotic therapy Dictation was produced using [employer] dictation software. please excuse any grammatical, word or spelling errors. Time with Patient: Less than 30
[2023-12-07 12:16] LABS: Glucose,Whole Blood 212 mg/dL (70-110)
--- NOTE | 2023-12-07 14:09 | P.PN ---
Subjective Progress Note Date: 12/07/23 83-year-old female with a past medical history of chronic atrial fibrillation, insulin-dependent diabetes mellitus, hypertension, and memory impairment. She presented to the emergency department overnight secondary to complaints of confusion, hallucinations and generalized weakness. Vital signs show BP 146/84, HR 97, RR 18, T 97.5 F, and SpO2 of 96% on room air. CBC unremarkable. BMP sodium of 132 and elevated glucose of 412. Lactic acid was elevated at 3.4. Urinalysis positive nitrite, and greater than 182 WBCs. Patient was started on IV Rocephin for treatment of UTI and admitted under services with ID consult. Patient was noted to have episodes of visual hallucinations and confusion concerning for delirium secondary to infection. UCx Citrobacter freundii which was resistant to Rocephin, switched to Cefepime. Patient's mentation was improving and we were working towards discharging to care home facility. On the morning of 11/25/2023 mentation significantly changed. Patient was found to have significant muscular tics/myoclonic jerking movements, puffing of cheeks and lips and now nonverbal. Order placed for stat CT brain, CTA head and neck, blood glucose check and EEG. POC glucose was 186. 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 CTA neck revealed severe proximal right internal carotid artery stenosis. MRI brain scattered microhemorrhage correlate for cerebral amyloid angiopathy. Cefepime discontinued and patient started on Invanz for possible neurotoxicity and Acyclovir for meningitis/encephalitis. EEG was reported to be severely abnormal and per neurology request giving patient a loading dose of Keppra and Vimpat. Initial plans for transfer for continuous EEG monitoring. [facility] did not accept transfer, likely a metabolic encephalopathy believed to be resulting from cefepime induced neurotoxicity and patient does not require continuous EEG monitoring. Patient underwent lumbar puncture 11/29/2023. CSF fluid analysis did not indicate infection, Acyclovir was discontinued. Her Keppra was weaned off from 12/01-12/03 and her mentation did slowly improved. Evaluated by ST and started on NDD1 diet with 1:1 supervision and aspiration precautions. She completed a course of Invanz for her UTI and antibiotics were discontinued on 12/03. 12/06 Patient was seen and examined. Her weakness has significantly improved compared to yesterday. She is now able to move her arms and feet (previously only able to wiggle her toes as of yesterday, PT documented that she is unable to sit unassisted along the side of the bed on 12/05). She is now able to speak clearly (previously whispering as of yesterday). Nursing does report some hallucinations (patient stated her dog was by her bedside). Neurology note reviewed, switch Vimpat IV to PO, cleared for discharge from neurological perspective. Discussed with case management, working on SNF placement. Discussed with RN, will attempt to get PT and OT to work with her aggressively. CBC Hg 10.9 Hct 33.4. BMP Cl 109, glu 271, Ca 7.9. 12/07 Patient was seen and examined. Sitting up in the chair. Her mentation is similar to yesterday, AO x 2. She is slightly weaker than yesterday but overall improved. OT note reviewed, transferred out of bed to chair with total assist of 2, able to walk 4 steps to transfer. Repeat EEG has been ordered today. Discussed with case management, insurance authorization for SNF pending. CBC Hg 10.4 Hct 31.8. BMP K 3.2 bicarb 31, BUN 6, glu 266, Ca 8.2. General: Nontoxic and appears stated age. Derm: Skin warm and dry, normal coloration for ethnicity. Head: Atraumatic, normocephalic and symmetric. Eyes: no lid lag, and anicteric sclera. Cardiovascular: Irregularly irregular Lungs: Respirations even, regular, and unlabored on room air. Lungs CTA bilaterally, no rhonchi, no rales, no wheezing, and no accessory muscle usage. Ext: ROM intact. No gross muscle atrophy, no edema, no contractures Neuro/psych: Alert and oriented x 2. Strength 3-4/5 in all 4 extremities. No focal neurological deficits. Based on my assessment of this patient, this patient meets a moderate complexity level of care. Patient has an acute diagnosis of acute metabolic encephalopathy due to UTI sepsis now complicated by Cefepime toxicitiy that poses a threat to life or bodily function. Severe metabolic encephalopathy: Unclear etiology. Possible seizure activity vs CVA vs Cefepime induced neurotoxicity vs other underlying neurological condition. Keppra weaned off 12/03. Vimpat 100 mg PO every 12 hours. MRI brain concerning for microhemorrhage due to amyloid angiopathy: Discussed w ith Dr. Sutton, not the cause of her altered mentation. Citrobacter freundii UTI: Completed course of Invanz on 12/03. Hypokalemia: KCl 20 meq IV x 1. Severe right internal carotid artery stenosis: Carotid duplex shows no significant stenosis. No intervention per Vascular Sx. Diabetes mellitus with hyperglycemia: NovoLog sliding scale and Levemir 15 units daily. Accuchecks Q6H. Hemoglobin A1c 9.8%. Atrial fibrillation with RVR: Continue Cardizem 180 mg PO QD. Discussed with Dr. Sutton, rewards outweigh risks for AC with regard to microhemorrhage seen on MRI and risk for CVA with A-Fib. Eliquis 5 mg PO BID. Hypothyroidism: Synthroid 12.5 mcg PO QD. Resolved: HypoMag CODE STATUS: FULL CODE. DVT Prophylaxis: Eliquis. GI Prophylaxis: Protonix PO Designated medical POA if patient is not able to make medical decisions for themselves: I have reviewed the following configuration consultant notes: ID note. I have reviewed the results of the following tests: CBC, BMP. I have ordered the following tests: EEG. I have discussed the care of this patient with the following independent historian: Discussed with Case management. I have independently interpreted the following test below: I have discussed the management of this patient with the following physician: Objective - Vital Signs Vital signs: Vital Signs Temp 98.8 F 12/07/23 11:42 Pulse 106 H 12/07/23 11:42 Resp 18 12/07/23 11:42 BP 143/82 12/07/23 11:42 Pulse Ox 94 L 12/07/23 11:42 FiO2 Intake & Output 12/06/23 12/07/23 12/07/23 18:59 06:59 18:59 Intake Total 354 118 Output Total 1000 1825 500 Balance -415 -6107 -388 Intake: Oral 354 118 Output: Urine 1000 1825 500 Other: Voiding Method Indwelling Catheter Indwelling Catheter Indwelling Catheter - Labs CBC & Chem 7: 12/07/23 10:58 12/07/23 10:58 Labs: Abnormal Lab Results - Last 24 Hours (Table) 12/06/23 12/06/23 12/07/23 Range/Units 16:46 20:29 05:58 RBC (3.80-5.40) m/uL Hgb (11.4-16.0) gm/dL Hct (34.0-46.0) % Potassium (3.5-5.1) mmol/L Carbon Dioxide (22-30) mmol/L BUN (7-17) mg/dL Glucose (74-99) mg/dL POC Glucose (mg/dL) 252 H 147 H 188 H (70-110) mg/dL Calcium (8.4-10.2) mg/dL 12/07/23 12/07/23 12/07/23 Range/Units 10:58 10:58 12:14 RBC 3.67 L (3.80-5.40) m/uL Hgb 10.4 L (11.4-16.0) gm/dL Hct 31.8 L (34.0-46.0) % Potassium 3.2 L (3.5-5.1) mmol/L Carbon Dioxide 31 H (22-30) mmol/L BUN 6 L (7-17) mg/dL Glucose 266 H (74-99) mg/dL POC Glucose (mg/dL) 212 H (70-110) mg/dL Calcium 8.2 L (8.4-10.2) mg/dL
[2023-12-07 16:24] LABS: Glucose,Whole Blood 148 mg/dL (70-110)
[2023-12-07] MEDS: POTASSIUM CHLORIDE 10 MEQ in WATER FOR INJECTION 1 100ML.BAG IVPB SCH (18:06)
[2023-12-07 20:11] LABS: Glucose,Whole Blood 108 mg/dL (70-110)
--- NOTE | 2023-12-07 21:43 | EEG ---
ELECTROENCEPHALOGRAM REPORT PREAMBLE: This is an 83-year-old female with altered mental status. MEDICATIONS: Currently, patient is on, 1. Vimpat. 2. Eliquis. 3. Cardizem. 4. Lexapro. EEG FINDINGS: This is a 21-channel digital EEG recorded with video component, utilizing 10/20 international system with referential and bipolar montages. Background consists of somewhat disorganized activity consisting of mixed frequencies of some varying frequencies of theta, intermixed with some sporadic delta activity seen in bihemispheric region. Background does not seem to be clearly reactive to eye opening or closing. Photic driving response was not seen. Frequent myogenic activity was seen, particularly in the temporal and some frontal region bilaterally. Different stages of sleep were not seen. No focal or generalized epileptiform activity was seen. IMPRESSION: This is an abnormal EEG due to background slowing of moderate degree. This is suggestive of generalized cerebral dysfunction as can be seen with toxic metabolic encephalopathy or related to diffuse structural brain abnormality. No definitive epileptiform activity was seen. When compared to the EEG from 11/28/2023, the background seems much improved, with resolution of triphasic waves. Clinical correlation is recommended. MMODL / IJN: [id number] /
[2023-12-07 23:54] LABS: Glucose,Whole Blood 157 mg/dL (70-110)
[2023-12-08 06:21] LABS: Glucose,Whole Blood 142 mg/dL (70-110)
--- NOTE | 2023-12-08 09:07 | P.PN ---
Subjective Progress Note Date: 12/07/23 12/07/2023: Patient was seen for a follow-up. Patient is laying comfortably in the recliner. She appears very confused, delirious. 12/06/2023: Patient was seen for a follow-up. Patient denies headache. She continues to be somewhat confused, delirious. Speech and language functions are normal. 12/05/2023: Patient has been seen by Dr. Ernie Sutton since 11/27/2023. Please refer to his notes for details. Patient at present is laying in the bed, appear s very comfortable. Patient is still slightly confused, states she has been here since end of July. Patient states that she came to the hospital initially because she suffered from a fall while she was carrying things out in the car and fell. Patient at present denies any headache. She states that she sometimes gets "sinus headache". Patient states "I fell yesterday". I do not believe it is correct statement. 11/27/2023: Patient was seen for a follow-up. Patient has become further worse. She continues to be mute, but now is very groggy, drowsy. Myoclonic twitching has completely resolved. Drowsiness could be related to Keppra. Patient is afebrile, white cells are normal. Patient is not able to take anything by mouth. The last dose of Eliquis she received was yesterday morning at 6:33 AM. She did not receive the night dose of Eliquis yesterday and this morning. Patient started on aspirin 300 mg rectally. Objective - Vital Signs Vital signs: Vital Signs Temp 98.8 F 12/07/23 11:42 Pulse 106 H 12/07/23 11:42 Resp 18 12/07/23 11:42 BP 143/82 12/07/23 11:42 Pulse Ox 94 L 12/07/23 11:42 FiO2 Intake & Output 12/06/23 12/07/23 12/07/23 18:59 06:59 18:59 Intake Total 354 118 Output Total 1000 1825 500 Balance -646 -1825 -382 Intake: Oral 354 118 Output: Urine 1000 1825 500 Other: Voiding Method Indwelling Catheter Indwelling Catheter Indwelling Catheter - Exam Patient is fully alert and awake. Patient is sitting comfortably in the recliner. She believes that she is in [facility] in [facility]. Patient states it is October and the year is 2023. She states the current president is Mr. "Elsa". Patient is hyperalert, very distractible to a [place] external noise and answers to it, thinking somebody is talking to her. She continues to be delirious although slightly better. Her speech and language functions appears normal. Detailed cognitive function testing deferred. On muscle strength testing (right/left) deltoid 3+4-/3+4-, triceps 4/4, biceps 4/4, inside account executive 4/4, hip flexion 3+4-/3+4-, ankle dorsiflexion 5/5 with decreased ROM No myoclonic or seizure-like activity noticed. Her neck is supple. - Labs CBC & Chem 7: 12/07/23 10:58 12/07/23 10:58 Labs: Abnormal Lab Results - Last 24 Hours (Table) 12/06/23 12/06/23 12/07/23 Range/Units 16:46 20:29 05:58 RBC (3.80-5.40) m/uL Hgb (11.4-16.0) gm/dL Hct (34.0-46.0) % Potassium (3.5-5.1) mmol/L Carbon Dioxide (22-30) mmol/L BUN (7-17) mg/dL Glucose (74-99) mg/dL POC Glucose (mg/dL) 252 H 147 H 188 H (70-110) mg/dL Calcium (8.4-10.2) mg/dL 12/07/23 12/07/23 12/07/23 Range/Units 10:58 10:58 12:14 RBC 3.67 L (3.80-5.40) m/uL Hgb 10.4 L (11.4-16.0) gm/dL Hct 31.8 L (34.0-46.0) % Potassium 3.2 L (3.5-5.1) mmol/L Carbon Dioxide 31 H (22-30) mmol/L BUN 6 L (7-17) mg/dL Glucose 266 H (74-99) mg/dL POC Glucose (mg/dL) 212 H (70-110) mg/dL Calcium 8.2 L (8.4-10.2) mg/dL Assessment and Plan Assessment: * Acute metabolic encephalopathy, that seems to have resolved clinically. Myoclonic jerks has resolved. * Acute Citrobacter UTI. Patient was on cefepime, then switched to Invanz, and now antibiotics have been discontinued. * MRI Brain: It showed scattered bilateral foci of blooming artifact suspicious for microhemorrhage throughout the brain, correlate for cerebral amyloid angiopathy. No evidence of intracranial mass, acute/subacute infarct or abnormal enhancement. Nonspecific white matter changes likely related to sma ll vessel ischemic disease. This is not cause of her confusion and likely had this before presenting to hospital. * Atrial fibrillation, currently on Eliquis * Hypertension * Diabetes Plan: * Repeat EEG #4 performed today was abnormal due to background slowing of moderate degree. This is suggestive of generalized cerebral dysfunction as can be seen with toxic metabolic encephalopathy or related to diffuse structural brain abnormality. No definite epileptiform activity was seen. When compared to the EEG from 11/28/2023, the background seems to have much improved, with resolution of triphasic waves. Clinical correlation is recommended. * We will taper off Vimpat. * Patient's examination revealed improved muscle strength all over as compared to last exam. * CTA of head and neck revealed severe proximal right ICA stenosis. Patient started on aspirin 81 mg daily. Patient also on Eliquis 5 mg twice a day. * Check carotid Doppler: less than 50% stenosis of bilateral carotid bifurcation. Nonvisulaization of the left vertebral artery. vascular surgery felt asymptomatic right ICA. * MRI Brain: It showed scattered bilateral foci of blooming artifact suspicious for microhemorrhage throughout the brain, correlate for cerebral amyloid angiopathy. No evidence of intracranial mass, acute/subacute infarct or abno rmal enhancement. Nonspecific white matter changes likely related to small vessel ischemic disease. * Dr. Sutton spoke with the patient the primary team BUSINESS TRANSFORMATION CONSULTANT and notified her the microhemorrhages for possible cerebral amyloid angiopathy probably was there even prior to her admission and that is not the cause for confusion. Need to reconsider anticoagulation on the long-term especially with the increased risk for bleed especially with amyloid. But if felt the benefit outweigh risk then resume anticoagulation. Will defer the use of anticoagulation to primary team. * Dr. Sutton has tapered off Keppra as of 12/02/23. With no epileptiform activity seen on EEG, we will taper off Vimpat as well. * Doppler ultrasound of bilateral upper extremities negative for DVT. * She was declined transfer to [facility] this past Tuesday since was felt due to Cephalosporin toxicity and they did not feels she needed joint terminal attack controller EEG. * Initial EEG #1 11/26/2023 was reported abnormal due to presence of diffuse bilaterally symmetric high amplitude frontally maximal sharp-appearing waves seen at 2-3 Hz, suggestive of underlying cortical irritability and tendency for seizures. Intermittent myoclonic jerks weren't noticed with presence of high amplitude myogenic activity lasting for about 1-2 seconds. After the Ativan 1 mg IV push was given, this high amplitude sharp-appearing waves dissipated along with myoclonic twitches. Otherwise the background was diffusely slow, suggestive of severe encephalopathy. Overall, this EEG may suggest myoclonic status, which was aborted with 1 mg Ativan. Clinical correlation and follow-up EEG recommended. * Repeat EEG #2 11/27/2023 reported as revealed persistently abnormal EEG with presence of background slowing of moderate to severe degree, suggestive of toxic metabolic encephalopathy. Presence of intermittent high amplitude front ally predominant waves, which at times appears triphasic type in quality but sometimes they become rhythmic at 1-2 Hz. Overall this is consistent with severe encephalopathy. When compared to the EEG from 09/25/2024, there is overall improvement in the background and much less frequency of sharp-ap pearing waves. Recommend continuous EEG monitoring for further evaluation. * Repeat prolonged EEG #3 11/28/2023: This is an abnormal prolonged routine EEG. The background slowing is suggestive of moderate encephalopathy. There is no focal slowing, epileptiform discharge or seizure on the EEG. * CSF study: clear, colorless, nucleated cells is 6 (normal is 0-5), glucose 87, protein is 57 She does not have meningitis or encephalitis from CSF study. CSF gram stain is negative. Viral panel PCR all negative including HSV 1 and HSV 2 PCR. * We will check NMDA antibodies.
[2023-12-08 11:38] LABS: Glucose,Whole Blood 145 mg/dL (70-110)
[2023-12-08] MEDS: THIAMINE 100 MG TAB PO SCH (14:59)
--- NOTE | 2023-12-08 15:42 | P.PN ---
Subjective Progress Note Date: 12/08/23 Principal diagnosis: Reason for follow-up is drug-resistant UTI Patient is a 83-year-old female with a past medical history significant for diabetes mellitus hypertension atrial fibrillation memory impairment presenting to the hospital for evaluation of weakness and mental status changes did have a positive UA some urinary symptoms concerning for symptomatic UTI urine culture subsequently came back positive with the drug- resistant Citrobacter. On today's evaluation that is 12/08/2023,the patient slightly lethargic today but arousable remains to be afebrile and is breathing comfortably on room air did not answer any question no vomiting or diarrhea has been reported by nursing staff. No new labs has been obtained today her last white count was normal Objective - Vital Signs Vital signs: Vital Signs Temp 97.7 F 12/08/23 08:00 Pulse 86 12/08/23 11:39 Resp 16 12/08/23 11:39 BP 143/86 12/08/23 11:39 Pulse Ox 96 12/08/23 11:39 FiO2 Intake & Output 12/07/23 12/08/23 12/08/23 18:59 06:59 18:59 Intake Total 118 240 Output Total 1250 750 375 Balance -1132 -750 -135 Intake: Oral 118 240 Output: Urine 1250 750 375 Other: Voiding Method Indwelling Catheter Indwelling Catheter Indwelling Catheter # Voids 1 # Bowel Movements 1 1 - Exam GENERAL DESCRIPTION: An elderly female lying in bed in no distress RESPIRATORY SYSTEM: Unlabored breathing , decreased breath sounds at bases HEART: S1 S2 regular rate and rhythm , ABDOMEN: Soft , no tenderness EXTREMITIES: No edema feet - Labs CBC & Chem 7: 12/07/23 10:58 12/07/23 10:58 Labs: Abnormal Lab Results - Last 24 Hours (Table) 12/07/23 12/07/23 12/07/23 Range/Units 12:14 16:22 23:47 POC Glucose (mg/dL) 212 H 148 H 157 H (70-110) mg/dL 12/08/23 12/08/23 Range/Units 06:20 11:37 POC Glucose (mg/dL) 142 H 145 H (70-110) mg/dL Assessment and Plan (1) Penicillin allergy Current Visit: Yes Status: Acute Code(s): Z88.0 - ALLERGY STATUS TO PENICILLIN SNOMED Code(s): 83054393 (2) UTI (urinary tract infection) Current Visit: No Status: Acute Code(s): N39.0 - URINARY TRACT INFECTION, SITE NOT SPECIFIED SNOMED Code(s): 45281999 Plan: 1patient was in the hospital mental status changes and weakness which is likely multifactorial patient did have some urinary symptoms and now with evidence of drug-resistant bacteria in the urine likely responsible for some of her symptomatology 2--patient underlying UTI has been adequately treated, the patient is afebrile white count has been normal still have off-and-on mental status changes being monitored by neurology will monitor closely Dictation was produced using [employer] dictation software. please excuse any grammatical, word or spelling errors.
--- NOTE | 2023-12-08 16:32 | P.PN ---
Subjective Progress Note Date: 12/08/23 Hospital Course: 83-year-old female with a past medical history of chronic atrial fibrillation, insulin-dependent diabetes mellitus, hypertension, and memory impairment. She presented to the emergency department overnight secondary to complaints of confusion, hallucinations and generalized weakness. Vital signs show BP 146/84, HR 97, RR 18, T 97.5 F, and SpO2 of 96% on room air. CBC unremarkable. BMP sodium of 132 and elevated glucose of 412. Lactic acid was elevated at 3.4. Urinalysis positive nitrite, and greater than 182 WBCs. Patient was started on IV Rocephin for treatment of UTI and admitted under services with ID consult. Patient was noted to have episodes of visual hallucinations and confusion concerning for delirium secondary to infection. UCx Citrobacter freundii which was resistant to Rocephin, switched to Cefepime. Patient's mentation was improving and we were working towards discharging to intermediate facility. On the morning of 11/25/2023 mentation significantly changed. Patient was found to have significant muscular tics/myoclonic jerking movements, puffing of cheeks and lips and now nonverbal. Order placed for stat CT brain, CTA head and neck, blood glucose check and EEG. POC glucose was 186. 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 CTA neck revealed severe proximal right internal carotid artery stenosis. MRI brain scattered microhemorrhage correlate for cerebral amyloid angiopathy. Cefepime discontinued and patient started on Invanz for possible neurotoxicity and Acyclovir for meningitis/encephalitis. EEG was reported to be severely abnormal and per neurology request giving patient a loading dose of Keppra and Vimpat. Initial plans for transfer for continuous EEG monitoring. [facility] did not accept transfer, likely a metabolic encephalopathy believed to be resulting from cefepime induced neurotoxicity and patient does not require continuous EEG monitoring. Patient underwent lumbar puncture 11/29/2023. CSF fluid analysis did not indicate infection, Acyclovir was discontinued. Her Keppra was weaned off from 12/01-12/03 and her mentation did slowly improved. Evaluated by and started on NDD1 diet with 1:1 supervision and aspiration precautions. She completed a course of Invanz for her UTI and antibiotics were discontinued on 12/03. 12/06 Patient was seen and examined. Her weakness has significantly improved compared to yesterday. She is now able to move her arms and feet (previously only able to wiggle her toes as of yesterday, PT documented that she is unable to sit unassisted along the side of the bed on 12/05). She is now able to speak clearly (previously whispering as of yesterday). Nursing does report some hallucinations (patient stated her dog was by her bedside). Neurology note reviewed, switch Vimpat IV to PO, cleared for discharge from neurological perspective. Discussed with case management, working on SNF placement. Discussed with RN, will attempt to get PT and OT to work with her aggressively. CBC Hg 10. 9 Hct 33.4. BMP Cl 109, glu 271, Ca 7.9. 12/07 Patient was seen and examined. Sitting up in the chair. Her mentation is similar to yesterday, AO x 2. She is slightly weaker than yesterday but overall improved. OT note reviewed, transferred out of bed to chair with total assist of 2, able to walk 4 steps to transfer. Repeat EEG has been ordered today. Discussed with case management, insurance authorization for SNF pending. CBC Hg 10.4 Hct 31.8. BMP K 3.2 bicarb 31, BUN 6, glu 266, Ca 8.2. 12/08 Patient did not interact with me today on exam. I discussed her case with Neurology who informed me that patient was interactive with him yesterday and was improving in terms of mentation. Physical Exam: General: Nontoxic and appears stated age. Derm: Skin warm and dry, normal coloration for ethnicity. Head: Atraumatic, normocephalic and symmetric. Eyes: no lid lag, and anicteric sclera. Cardiovascular: Irregularly irregular Lungs: Respirations even, regular, and unlabored on room air. Lungs CTA bilaterally, no rhonchi, no rales, no wheezing, and no accessory muscle usage. Ext: ROM intact. No gross muscle atrophy, no edema, no contractures Neuro/psych: Alert and oriented x 2. Strength 3-4/5 in all 4 extremities. No focal neurological deficits. Assessment/Plan: Severe metabolic encephalopathy: Unclear etiology. Possible seizure activity vs CVA vs Cefepime induced neurotoxicity vs other underlying neurological condition. Keppra weaned off 12/03. Vimpat 100 mg PO every 12 hours. MRI brain concerning for microhemorrhage due to amyloid angiopathy: Discussed with Dr. Sutton, not the cause of her altered mentation. Citrobacter freundii UTI: Completed course of Invanz on 12/03. Severe right internal carotid artery stenosis: Carotid duplex shows no significant stenosis. No intervention per Vascular Sx. Diabetes mellitus with hyperglycemia: NovoLog sliding scale and Levemir 15 units daily. Accuchecks Q6H. Hemoglobin A1c 9.8%. Atrial fibrillation with RVR: Continue Cardizem 180 mg PO QD. Discussed with Dr. Sutton, rewards outweigh risks for AC with regard to microhemorrhage seen on MRI and risk for CVA with A-Fib. Eliquis 5 mg PO BID. Hypothyroidism: Synthroid 12.5 mcg PO QD. Resolved: HypoMag CODE STATUS: FULL CODE. DVT Prophylaxis: Eliquis. GI Prophylaxis: Protonix PO Designated medical POA if patient is not able to make medical decisions for themselves: Objective - Vital Signs Vital signs: Vital Signs Temp 98.1 F 12/08/23 15:31 Pulse 85 12/08/23 15:31 Resp 16 12/08/23 15:31 BP 133/78 12/08/23 15:31 Pulse Ox 96 12/08/23 15:31 FiO2 Intake & Output 12/07/23 12/08/23 12/08/23 18:59 06:59 18:59 Intake Total 118 720 Output Total 1250 750 600 Balance -1132 -750 120 Intake: Oral 118 720 Output: Urine 1250 750 600 Other: Voiding Method Indwelling Catheter Indwelling Catheter Indwelling Catheter # Voids 1 # Bowel Movements 1 1 - Labs CBC & Chem 7: 12/07/23 10:58 12/07/23 10:58 Labs: Abnormal Lab Results - Last 24 Hours (Table) 12/07/23 12/08/23 12/08/23 Range/Units 23:47 06:20 11:37 POC Glucose (mg/dL) 157 H 142 H 145 H (70-110) mg/dL
[2023-12-08 16:45] LABS: Glucose,Whole Blood 217 mg/dL (70-110)
[2023-12-08 19:59] LABS: Glucose,Whole Blood 193 mg/dL (70-110)
[2023-12-08] MEDS: LACOSAMIDE 50 MG TABLET PO SCH (20:17)
[2023-12-09 00:06] LABS: Glucose,Whole Blood 187 mg/dL (70-110)
[2023-12-09 06:25] LABS: Glucose,Whole Blood 169 mg/dL (70-110)
--- NOTE | 2023-12-09 09:34 | P.PN ---
Subjective Progress Note Date: 12/08/23 12/08/2023: Patient was seen for a follow-up. Patient is laying comfortably in the bed. On asking how she was, patient says "better I guess". Patient continues to be confused, disoriented. Patient has slow mentation. 12/07/2023: Patient was seen for a follow-up. Patient is laying comfortably in the recliner. She appears very confused, delirious. 12/06/2023: Patient was seen for a follow-up. Patient denies headache. She continues to be somewhat confused, delirious. Speech and language functions are normal. 12/05/2023: Patient has been seen by Dr. Ernie Sutton since 11/27/2023. Please refer to his notes for details. Patient at present is laying in the bed, appears very comfortable. Patient is still slightly confused, states she has been here since end july. Patient states that she came to the hospital initially because she suffered from a fall while she was carrying things out in the car and fell. Patient at present denies any headache. She states that she sometimes gets "sinus headache". Patient states "I fell yesterday". I do not believe it is correct statement. 11/27/2023: Patient was seen for a follow-up. Patient has become further worse. She continues to be mute, but now is very groggy, drowsy. Myoclonic twitching has completely resolved. Drowsiness could be related to Keppra. Patient is afebrile, white cells are normal. Patient is not able to take anything by mouth. The last dose of Eliquis she received was yesterday morning at 6:33 AM. She did not receive the night dose of Eliquis yesterday and this morning. Patient started on aspirin 300 mg rectally. Previous tests: * CTA of head and neck revealed severe proximal right ICA stenosis. Patient started on aspirin 81 mg daily. Patient also on Eliquis 5 mg twice a day. * Check carotid Doppler: less than 50% stenosis of bilateral carotid bifurcation. Nonvisulaization of the left vertebral artery. vascular surgery felt asymptomatic right ICA. * MRI Brain: It showed scattered bilateral foci of blooming artifact suspicious for microhemorrhage throughout the brain, correlate for cerebral amyloid angiopathy. No evidence of intracranial mass, acute/subacute infarct or abnormal enhancement. Nonspecific white matter changes likely related to small vessel ischemic disease. * Doppler ultrasound of bilateral upper extremities negative for DVT. * Initial EEG #1 11/26/2023 was reported abnormal due to presence of diffuse bilaterally symmetric high amplitude frontally maximal sharp-appearing waves seen at 2-3 Hz, suggestive of underlying cortical irritability and tendency for seizures. Intermittent myoclonic jerks weren't noticed with presence of high amplitude myogenic activity lasting for about 1-2 seconds. After the Ativan 1 mg IV push was given, this high amplitude sharp-appearing waves dissipated along with myoclonic twitches. Otherwise the background was diffusely slow, suggestive of severe encephalopathy. Overall, this EEG may suggest myoclonic status, which was aborted with 1 mg Ativan. Clinical correlation and follow-up EEG recommended. * Repeat EEG #2 11/27/2023 reported as revealed persistently abnormal EEG with presence of background slowing of moderate to severe degree, suggestive of toxic metabolic encephalopathy. Presence of intermittent high amplitude frontally predominant waves, which at times appears triphasic type in quality but sometimes they become rhythmic at 1-2 Hz. Overall this is consistent with severe encephalopathy. When compared to the EEG from 09/25/2024, there is overall improvement in the background and much less frequency of sharp- appearing waves. Recommend continuous EEG monitoring for further evaluation. * Repeat prolonged EEG #3 11/28/2023: This is an abnormal prolonged routine EEG. The background slowing is suggestive of moderate encephalopathy. There is no focal slowing, epileptiform discharge or seizure on the EEG. * CSF study: clear, colorless, nucleated cells is 6 (normal is 0-5), glucose 87, protein is 57 She does not have meningitis or encephalitis from CSF study. CSF gram stain is negative. Viral panel PCR in the CSF all negative including HSV 1 and HSV 2 PCR. Objective - Vital Signs Vital signs: Vital Signs Temp 97.7 F 12/08/23 08:00 Pulse 86 12/08/23 11:39 Resp 16 12/08/23 11:39 BP 143/86 12/08/23 11:39 Pulse Ox 96 12/08/23 11:39 FiO2 Intake & Output 12/07/23 12/08/23 12/08/23 18:59 06:59 18:59 Intake Total 118 240 Output Total 1250 750 375 Balance -1132 -750 -135 Intake: Oral 118 240 Output: Urine 1250 750 375 Other: Voiding Method Indwelling Catheter Indwelling Catheter Indwelling Catheter # Voids 1 # Bowel Movements 1 1 - Exam Patient is fully alert and awake. Patient is laying in the bed. Patient's speech and language functions are normal. Patient states it is the month of March and the year is . She believes that she is in [place]. Patient is hyperalert, very distractible to any external noise and answers to it. She continues to be delirious. Detailed cognitive function testing deferred. On muscle strength testing (right/left) deltoid 3+4-/3+4-, triceps 4/4, biceps 4/4, delivery director 4/4, hip flexion 3+4-/3+4-, ankle dorsiflexion 5/5 with decreased ROM No myoclonic or seizure-like activity noticed. Her neck is supple. - Labs CBC & Chem 7: 12/07/23 10:58 12/07/23 10:58 Labs: Abnormal Lab Results - Last 24 Hours (Table) 12/07/23 12/07/23 12/08/23 Range/Units 16:22 23:47 06:20 POC Glucose (mg/dL) 148 H 157 H 142 H (70-110) mg/dL 12/08/23 Range/Units 11:37 POC Glucose (mg/dL) 145 H (70-110) mg/dL Assessment and Plan Assessment: * Acute metabolic encephalopathy, that seems to have resolved clinically. Myoclonic jerks has resolved. Suspect cephalosporin induced neurotoxicity on top of encephalopathy related to acute UTI. * Acute Citrobacter UTI. Patient was on cefepime, then switched to Invanz, and now antibiotics have been discontinued. * MRI Brain: It showed scattered bilateral foci of blooming artifact suspicious for microhemorrhage throughout the brain, correlate for cerebral amyloid angiopathy. No evidence of intracranial mass, acute/subacute infarct or abnormal enhancement. Nonspecific white matter changes likely related to small vessel ischemic disease. This is not cause of her confusion and likely had this before presenting to hospital. 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 * Probable dementia, worse since subdural hematoma, and current prolonged hospitalization. * Atrial fibrillation, currently on Eliquis * Hypertension * Diabetes Plan: * I tried to contact patient's guardian, but was not available. I spoke to patient's daughter, who provided with history. Apparently patient moved from [place] in August 2023. When she arrived, she was walking with a walker. She has history of recurrent UTIs. Patient has suffered from recurrent UTI. She was in rehab, when she suffered from a fall, and developed acute on chronic left sided subdural hematoma on 10/08/2023. Patient was transferred from [facility] to [facility] where she was treated conservatively, did not require any craniotomy. Patient has been in wheelchair since that admission. Patient's daughter believes that patient has developed progressive memory decline going on for 3 years, slowly getting worse, particularly in the last couple years. She has not been formally diagnosed with dementia however. She states that patient's mother also suffered from dementia and was in the [facility] before she in her 80s or 90s. At present it appears patient has developed worsening of dementia since her recent admission to the hospital. * Repeat EEG #4 on 12/07/2023 was abnormal due to background slowing of moderate degree. This is suggestive of generalized cerebral dysfunction as can be seen with toxic metabolic encephalopathy or related to diffuse structural brain abnormality. No definite epileptiform activity was seen. When compared to the EEG from 11/28/2023, the background seems to have much improved, with resolution of triphasic waves. Clinical correlation is recommended. * Based upon above information, we will continue Vimpat. Keppra was discontinued by Dr. Sutton. * Await NMDA antibodies. * Neurologically clear for discharge.
[2023-12-09 11:33] VITALS: RESP 16
[2023-12-09 11:33] LABS: Glucose,Whole Blood 180 mg/dL (70-110)
--- NOTE | 2023-12-09 12:41 | P.PN ---
Subjective Progress Note Date: 12/09/23 Principal diagnosis: Reason for follow-up is drug-resistant UTI Patient is a 83-year-old female with a past medical history significant for diabetes mellitus hypertension atrial fibrillation memory impairment presenting to the hospital for evaluation of weakness and mental status changes did have a positive UA some urinary symptoms concerning for symptomatic UTI urine culture subsequently came back positive with the drug- resistant Citrobacter. On today's evaluation that is 12/09/2023,the patient remains to be afebrile, patient is on room air not requiring supplemental oxygen, the patient is more awake alert up in the chair, and denies any shortness of breath no chest pain or cough.Patient denies having any nausea or vomiting, no abdominal pain and no diarrhea has been reported. No new labs has been obtained today Objective - Vital Signs Vital signs: Vital Signs Temp 98.1 F 12/09/23 08:00 Pulse 84 12/09/23 11:12 Resp 16 12/09/23 11:12 BP 114/69 12/09/23 11:12 Pulse Ox 95 12/09/23 11:12 FiO2 21 12/09/23 08:56 Intake & Output 12/08/23 12/09/23 12/09/23 18:59 06:59 18:59 Intake Total 960 540 600 Output Total 600 1800 600 Balance 360 -1260 0 Intake: Oral 960 540 600 Output: Urine 600 1800 600 Other: Voiding Method Indwelling Catheter Indwelling Catheter Indwelling Catheter # Bowel Movements 1 - Exam GENERAL DESCRIPTION: An elderly female lying in bed in no distress RESPIRATORY SYSTEM: Unlabored breathing , decreased breath sounds at bases HEART: S1 S2 regular rate and rhythm , ABDOMEN: Soft , no tenderness EXTREMITIES: No edema feet - Labs CBC & Chem 7: 12/07/23 10:58 12/07/23 10:58 Labs: Abnormal Lab Results - Last 24 Hours (Table) 12/08/23 12/08/23 12/09/23 Range/Units 16:27 19:57 00:05 POC Glucose (mg/dL) 217 H 193 H 187 H (70-110) mg/dL 12/09/23 12/09/23 Range/Units 06:24 11:30 POC Glucose (mg/dL) 169 H 180 H (70-110) mg/dL Assessment and Plan (1) Penicillin allergy Current Visit: Yes Status: Acute Code(s): Z88.0 - ALLERGY STATUS TO PENICILLIN SNOMED Code(s): 40606416 (2) UTI (urinary tract infection) Current Visit: No Status: Acute Code(s): N39.0 - URINARY TRACT INFECTION, SITE NOT SPECIFIED SNOMED Code(s): 00808916 Plan: 1patient was in the hospital mental status changes and weakness which is likely multifactorial patient did have some urinary symptoms and now with evidence of drug-resistant bacteria in the urine likely responsible for some of her s ymptomatology 2--patient UTI has been adequately treated, patient seem to be doing well off antibiotic for couple of days now and is more awake and alert seem to be back to her baseline recommending no antibiotic on discharge Dictation was produced using [employer] dictation software. please excuse any grammatical, word or spelling errors. Time with Patient: Less than 30
--- NOTE | 2023-12-09 15:08 | P.DS ---
Providers Date of admission: 11/22/23 00:41 Expected date of discharge: 12/09/23 Attending physician: Ermias Lopez MD Consults: 11/24/23 11:02 Consult Physician Routine Consulting Provider: Al Aldana Consult Reason/Comments: Citrobacter freundii UTI Do you want consulting provider notified?: Yes 11/26/23 09:19 Consult Physician Routine Consulting Provider: Sarthak Pino Consult Reason/Comments: reportedly found confused twitching making huffing/puffing noises R/O seizu Do you want consulting provider notified?: Yes Primary care physician: Stated None Hospital Course: Severe metabolic encephalopathy: [place] to be secondary to urosepsis, followed by cefepime toxicity superimposed on 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 Severe right internal carotid artery stenosis: Carotid duplex shows no significant stenosis. No intervention per Vascular Sx. Diabetes mellitus with hyperglycemia: NovoLog sliding scale and Levemir 15 units daily. Accuchecks Q6H. Hemoglobin A1c 9.8%. Atrial fibrillation with RVR: Continue Cardizem 180 mg PO QD. Discussed with Dr. Sutton, rewards outweigh risks for AC with regard to microhemorrhage seen on MRI and risk for CVA with A-Fib. Eliquis 5 mg PO BID. Hypothyroidism: Synthroid 12.5 mcg PO QD. Hospital Course: 83-year-old female with a past medical history of chronic atrial fibrillation, insulin-dependent diabetes mellitus, hypertension, and memory impairment. She presented to the emergency department overnight secondary to complaints of confusion, hallucinations and generalized weakness. Vital signs show BP 146/84, HR 97, RR 18, T 97.5 F, and SpO2 of 96% on room air. CBC unremarkable. BMP sodium of 132 and elevated glucose of 412. Lactic acid was elevated at 3.4. Urinalysis positive nitrite, and greater than 182 WBCs. Patient was started on IV Rocephin for treatment of UTI and admitted under services with ID consult. Patient was noted to have episodes of visual hallucinations and confusion concerning for delirium secondary to infection. UCx Citrobacter freundii which was resistant to Rocephin, switched to Cefepime. Patient's mentation was improving and we were working [facility]. On the morning of 11/25/2023 mentation significantly changed. Patient was found to have significant muscular tics/myoclonic jerking movements, puffing of cheeks and lips and now nonverbal. Order placed for stat CT brain, CTA head and neck, blood glucose check and EEG. POC glucose was 186. 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 CTA neck revealed severe proximal right internal carotid artery stenosis. MRI brain scattered microhemorrhage correlate for cerebral amyloid angiopathy. Cefepime discontinued and patient started on Invanz for possible neurotoxicity and Acyclovir for meningitis/encephalitis. EEG was reported to be severely abnormal and per neurology request giving patient a loading dose of Keppra and Vimpat. Initial plans for transfer for continuous EEG monitoring. [facility] did not accept transfer, likely a metabolic encephalopathy believed to be resulting from cefepime induced neurotoxicity and patient does not require continuous EEG monitoring. Patient underwent lumbar puncture 11/29/2023. CSF fluid analysis did not indicate infection, Acyclovir was discontinued. Her Keppra was weaned off from 12/01-12/03 and her mentation did slowly improved. Evaluated by ST and started on NDD1 diet with 1:1 supervision and aspiration precautions. She completed a course of Invanz for her UTI and antibiotics were discontinued on 12/03. 12/06 Patient was seen and examined. Her weakness has significantly improved compared to yesterday. She is now able to move her arms and feet (previously only able to wiggle her toes as of yesterday, PT documented that she is unable to sit unassisted along the side of the bed on 12/05). She is now able to speak clearly (previously whispering as of yesterday). Nursing does report some hallucinations (patient stated her dog was by her bedside). Neurology note reviewed, switch Vimpat IV to PO, cleared for discharge from neurological perspective. Discussed with case management, working on SNF placement. Discussed with RN, will attempt to get PT and OT to work with her aggressively. CBC Hg 10.9 Hct 33.4. BMP Cl 109, glu 271, Ca 7.9. 12/07 Patient was seen and examined. Sitting up in the chair. Her mentation is similar to yesterday, AO x 2. She is slightly weaker than yesterday but overall improved. OT note reviewed, transferred out of bed to chair with total assist of 2, able to walk 4 steps to transfer. Repeat EEG has been ordered today. Discussed with case management, insurance authorization for SNF pending. CBC Hg 10.4 Hct 31.8. BMP K 3.2 bicarb 31, BUN 6, glu 266, Ca 8.2. 12/08 Patient did not interact with me today on exam. I discussed her case with Neurology who informed me that patient was interactive with him yesterday and was improving in terms of mentation. 12/09 Patient was very interactive today, still midly confused, but much better. Pt cleared from medical standpoint for SNF for subacute rehab I spent 45 minutes coordinating this discharge on 12/09 Physical Exam: General: Nontoxic and appears stated age. Derm: Skin warm and dry, normal coloration for ethnicity. Head: Atraumatic, normocephalic and symmetric. Eyes: no lid lag, and anicteric sclera. Cardiovascular: Irregularly irregular Lungs: Respirations even, regular, and unlabored on room air. Lungs CTA bilaterally, no rhonchi, no rales, no wheezing, and no accessory muscle usage. Ext: ROM intact. No gross muscle atrophy, no edema, no contractures Neuro/psych: Alert and oriented x 2. Strength 3-4/5 in all 4 extremities. No focal neurological deficits. Patient Condition at Discharge: Good Plan - Discharge Summary Discharge Rx Participant: Yes New Discharge Prescriptions: New Diltiazem Cd [Cardizem CD] 180 mg PO DAILY cap Insulin Detemir (Levemir) [Levemir] 15 unit SQ DAILY@0700 each Nystatin 100,000 Unit/gm Oint [Mycostatin Oint] 1 applic TOPICAL TID each Lacosamide [Vimpat] 100 mg PO BID tab amLODIPine [Norvasc] 5 mg PO DAILY tab Thiamine [Vitamin B-1] 100 mg PO DAILY tab Continue [place]-3/Dha/Epa/Fish Oil [Fish Oil 1,000 mg Softgel] 1 cap PO HS Loratadine 10 mg PO HS Ferrous Sulfate [Iron (65 MG Elemental)] 325 mg PO HS Escitalopram [Lexapro] 20 mg PO DAILY Pantoprazole [Protonix] 40 mg PO AC-BRKFST Atorvastatin [Lipitor] 40 mg PO AC-BRKFST Tiotropium 2.5 Mcg/Puff [Spiriva Respimat 2.5 Mcg] 1 puff INHALATION RT-DAILY PRN PRN Reason: Shortness Of Breath Diclofenac Sodium Gel [Voltaren 1% Gel] 1 applic TOPICAL QID PRN PRN Reason: Pain Loperamide HCl [Imodium A-D] 2 mg PO QID PRN PRN Reason: Diarrhea Acetaminophen [Tylenol Arthritis] 650 mg PO AC-BRKFST Losartan [Cozaar] 50 mg PO DAILY #30 tab Ipratropium-Albuterol Nebulize [Duoneb 0.5 mg-3 mg/3 ml Soln] 3 ml INHALATION RT-QID #100 each Acetaminophen Tab [Tylenol] 650 mg PO Q6HR PRN tab PRN Reason: Mild Pain Or Fever > 100.5 Super B Complex 1 tab PO HS Acetaminophen [Tylenol 8 Hour] 1,300 mg PO HS Potassium Gluconate 99 mg PO HS Levothyroxine Sodium [Synthroid] 12.5 mcg PO AC-BRKFST Calcium Carbonate [Calcium] 600 mg PO HS Montelukast [Singulair] 10 mg PO HS Apixaban [Eliquis] 5 mg PO AC-BID Ipratropium-Albuterol Nebulize [Duoneb 0.5 mg-3 mg/3 ml Soln] 3 ml INHALATION RT-QID PRN PRN Reason: Shortness Of Breath Prevagen 1 tab PO BID Dulaglutide [Trulicity] 0.75 mg SQ WE Gabapentin [Neurontin] 300 mg PO TID 3 Days #9 cap Budesonide-Formot 160-4.5 Mcg [Symbicort 160-4.5 Mcg Inhaler] 2 puff INHALATION RT-BID #1 each predniSONE See Taper PO DIRECTED Discontinued dilTIAZem HCL [dilTIAZem HCL 24Hr ER (Xr)] 180 mg PO AC-BRKFST Insulin Glargine-Yfgn [Semglee (Yfgn) Pen] 10 units SQ HS Discharge Medication List Acetaminophen [Tylenol 8 Hour] 1,300 mg PO HS 08/25/23 [History] Acetaminophen [Tylenol Arthritis] 650 mg PO AC-BRKFST 08/25/23 [History] Apixaban [Eliquis] 5 mg PO AC-BID 08/25/23 [History] Atorvastatin [Lipitor] 40 mg PO AC-BRKT 08/25/23 [History] Calcium Carbonate [Calcium] 600 mg PO HS 08/25/23 [History] Diclofenac Sodium Gel [Voltaren 1% Gel] 1 applic TOPICAL QID PRN 08/25/23 [History] Dulaglutide [Trulicity] 0.75 mg SQ WE 08/25/23 [History] Escitalopram [Lexapro] 20 mg PO DAILY 08/25/23 [History] Ferrous Sulfate [Iron (65 MG Elemental)] 325 mg PO HS 08/25/23 [History] Ipratropium-Albuterol Nebulize [Duoneb 0.5 mg-3 mg/3 ml Soln] 3 ml INHALATION RT -QID PRN 08/25/23 [History] Levothyroxine Sodium [Synthroid] 12.5 mcg [facility] 08/25/23 [History] Loperamide HCl [Imodium A-D] 2 mg PO QID PRN 08/25/23 [History] Loratadine 10 mg PO HS 08/25/23 [History] Montelukast [Singulair] 10 mg PO HS 08/25/23 [History] [place]-3/Dha/Epa/Fish Oil [Fish Oil 1,000 mg Softgel] 1 cap PO HS 08/25/23 [History] Pantoprazole [Protonix] 40 mg PO AC-KT 08/25/23 [History] Potassium Gluconate 99 mg PO HS 08/25/23 [History] Prevagen 1 tab PO BID 08/25/23 [History] Super B Complex 1 tab PO HS 08/25/23 [History] Tiotropium 2.5 Mcg/Puff [Spiriva Respimat 2.5 Mcg] 1 puff INHALATION RT-DAILY PRN 08/25/23 [History] Gabapentin [Neurontin] 300 mg PO TID 3 Days #9 cap 09/22/23 [Rx] Budesonide-Formot 160-4.5 Mcg [Symbicort 160-4.5 Mcg Inhaler] 2 puff INHALATION RT-BID #1 each 10/28/23 [Rx] Losartan [Cozaar] 50 mg PO DAILY #30 tab 10/28/23 [Rx] Acetaminophen Tab [Tylenol] 650 mg PO Q6HR PRN tab 11/04/23 [Rx] Ipratropium-Albuterol Nebulize [Duoneb 0.5 mg-3 mg/3 ml Soln] 3 ml INHALATION RT-QID #100 each 11/04/23 [Rx] predniSONE See Taper PO DIRECTED 11/22/23 [History] Diltiazem Cd [Cardizem CD] 180 mg PO DAILY cap 12/09/23 [Rx] Insulin Detemir (Levemir) [Levemir] 15 unit SQ DAILY@0700 each 12/09/23 [Rx] Lacosamide [Vimpat] 100 mg PO BID tab 12/09/23 [Rx] Nystatin 100,000 Unit/gm Oint [Mycostatin Oint] 1 applic TOPICAL TID each 12/09/23 [Rx] Thiamine [Vitamin B-1] 100 mg PO DAILY tab 12/09/23 [Rx] amLODIPine [Norvasc] 5 mg PO DAILY tab 12/09/23 [Rx] Follow up Appointment(s)/Referral(s): None,Stated [Primary Care Provider] - 1-2 days Discharge Disposition: TRANSFER TO SNF/ECF
[2023-12-09 16:48] LABS: Glucose,Whole Blood 219 mg/dL (70-110)
[2023-12-09 17:10] VITALS: BP 109/69; PULSE 73; TEMP 98.2
--- NOTE | 2023-12-09 19:58 | P.PN ---
Subjective Progress Note Date: 12/09/23 12/09/2023: Patient was seen for a follow-up. Patient is laying comfortably in the bed, very pleasant. Patient admits that she has issues with memory, which is progressively getting worse. 12/08/2023: Patient was seen for a follow-up. Patient is laying comfortably in the bed. On asking how she was, patient says "better I guess". Patient continues to be confused, disoriented. Patient has slow mentation. 12/07/2023: Patient was seen for a follow-up. Patient is laying comfortably in the recliner. She appears very confused, delirious. 12/06/2023: Patient was seen for a follow-up. Patient denies headache. She continues to be somewhat confused, delirious. Speech and language functions are normal. 12/05/2023: Patient has been seen by Dr. Ernie Sutton since 11/27/2023. Please refer to his notes for details. Patient at present is laying in the bed, appears very comfortable. Patient is still slightly confused, states she has been here since end of July. Patient states that she came to the hospital initially because she suffered from a fall while she was carrying things out in the car and fell. Patient at present denies any headache. She states that she sometimes gets "sinus headache". Patient states "I fell yesterday". I do not believe it is correct statement. 11/27/2023: Patient was seen for a follow-up. Patient has become further worse. She continues to be mute, but now is very groggy, drowsy. Myoclonic twitching has completely resolved. Drowsiness could be related to Keppra. Patient is afebrile, white cells are normal. Patient is not able to take anything by mouth. The last dose of Eliquis she received was yesterday morning at 6:33 AM. She did not receive the night dose of Eliquis yesterday and this morning. Patient started on aspirin 300 mg rectally. Previous tests: * CTA of head and neck revealed severe proximal right ICA stenosis. Patient started on aspirin 81 mg daily. Patient also on Eliquis 5 mg twice a day. * Check carotid Doppler: less than 50% stenosis of bilateral carotid bifurcation. Nonvisulaization of the left vertebral artery. vascular surgery felt asymptomatic right ICA. * MRI Brain: It showed scattered bilateral foci of blooming artifact suspicious for microhemorrhage throughout the brain, correlate for cerebral amyloid angiopathy. No evidence of intracranial mass, acute/subacute infarct or abnormal enhancement. Nonspecific white matter changes likely related to small vessel ischemic disease. * Doppler ultrasound of bilateral upper extremities negative for DVT. * Initial EEG #1 11/26/2023 was reported abnormal due to presence of diffuse bilaterally symmetric high amplitude frontally maximal sharp-appearing waves s een at 2-3 Hz, suggestive of underlying cortical irritability and tendency for seizures. Intermittent myoclonic jerks weren't noticed with presence of high amplitude myogenic activity lasting for about 1-2 seconds. After the Ativan 1 mg IV push was given, this high amplitude sharp-appearing waves dissipated along with myoclonic twitches. Otherwise the background was diffusely slow, suggestive of severe encephalopathy. Overall, this EEG may suggest myoclonic status, which was aborted with 1 mg Ativan. Clinical correlation and follow- up EEG recommended. * Repeat EEG #2 11/27/2023 reported as revealed persistently abnormal EEG with presence of background slowing of moderate to severe degree, suggestive of toxic metabolic encephalopathy. Presence of intermittent high amplitude frontally predominant waves, which at times appears triphasic type in quality but sometimes they become rhythmic at 1-2 Hz. Overall this is consistent with severe encephalopathy. When compared to the EEG from 09/25/2024, there is overall improvement in the background and much less frequency of sharp- appearing waves. Recommend continuous EEG monitoring for further evaluation. * Repeat prolonged EEG #3 11/28/2023: This is an abnormal prolonged routine EEG. The background slowing is suggestive of moderate encephalopathy. There is no focal slowing, epileptiform discharge or seizure on the EEG. * CSF study: clear, colorless, nucleated cells is 6 (normal is 0-5), glucose 87, protein is 57 She does not have meningitis or encephalitis from CSF study. CSF gram stain is negative. Viral panel PCR in the CSF all negative including HSV 1 and HSV 2 PCR. Objective - Vital Signs Vital signs: Vital Signs Temp 98.1 F 12/09/23 08:00 Pulse 84 12/09/23 11:12 Resp 16 12/09/23 11:12 BP 114/69 12/09/23 11:12 Pulse Ox 95 12/09/23 11:12 FiO2 21 12/09/23 08:56 Intake & Output 12/08/23 12/09/23 12/09/23 18:59 06:59 18:59 Intake Total 960 540 780 Output Total 600 1800 600 Balance 360 -1260 180 Intake: Oral 960 540 780 Output: Urine 600 1800 600 Other: Voiding Method Indwelling Catheter Indwelling Catheter Indwelling Catheter # Bowel Movements 1 - Exam Patient is fully alert and awake. Patient is laying in the bed. Patient's speech and language functions are normal. Patient states it is the month of March and the year is 2020. She states that she is not sure if she is in [facility] or [facility]. Later she admitted that she is in [facility]. She knows name of the current president Mr. Escudero. Patient has strongly positive palmomental reflex bilaterally and positive visual spatial apraxia. Detailed cognitive function testing deferred. On muscle strength testing (right/left) deltoid 3+4-/3+4-, triceps 4/4, biceps 4/4, safety supervisor 4/4, hip flexion 3+4-/3+4-, ankle dorsiflexion 5/5 with decreased ROM No myoclonic or seizure-like activity noticed. Her neck is supple. - Labs CBC & Chem 7: 12/07/23 10:58 12/07/23 10:58 Labs: Abnormal Lab Results - Last 24 Hours (Table) 12/08/23 12/08/23 12/09/23 Range/Units 16:27 19:57 00:05 POC Glucose (mg/dL) 217 H 193 H 187 H (70-110) mg/dL 12/09/23 12/09/23 Range/Units 06:24 11:30 POC Glucose (mg/dL) 169 H 180 H (70-110) mg/dL Assessment and Plan Assessment: * Acute metabolic encephalopathy, that seems to have resolved clinically. Myoclonic jerks has resolved. Suspect cephalosporin induced neurotoxicity on top of encephalopathy related to acute UTI. * Acute Citrobacter UTI. Patient was on cefepime, then switched to Invanz, and now antibiotics have been discontinued. * MRI Brain: It showed scattered bilateral foci of blooming artifact suspicious for microhemorrhage throughout the brain, correlate for cerebral amyloid angiopathy. No evidence of intracranial mass, acute/subacute infarct or abnormal enhancement. Nonspecific white matter changes likely related to small vessel ischemic disease. This is not cause of her confusion and likely had this before presenting to hospital. 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 * Probable dementia, worse since subdural hematoma, and current prolonged hospitalization. * Atrial fibrillation, currently on Eliquis * Hypertension * Diabetes Plan: * I tried to contact patient's guardian, but was not available. I spoke to patient's daughter, who provided with history. Apparently patient moved from [place] in August 2023. When she arrived, she was walking with a walker. She has history of recurrent UTIs. Patient has suffered from recurrent UTI. She was in rehab, when she suffered from a fall, and developed acute on ch ronic left sided subdural hematoma on 10/08/2023. Patient was transferred from [facility] to [facility] where she was treated conservatively, did not require any craniotomy. Patient has been in wheelchair since that admission. Patient's daughter believes that patient has developed progressive memory decline going on for 3 years, slowly getting worse, particularly in the last couple years. She has not been formally diagnosed with dementia however. She states that patient's mother also suffered from dementia and was in the longterm before she in her 80s or 90s. At present it appears patient has developed worsening of dementia since her recent admission to the hospital. * Repeat EEG #4 on 12/07/2023 was abnormal due to background slowing of moderate degree. This is suggestive of generalized cerebral dysfunction as can be seen with toxic metabolic encephalopathy or related to diffuse structural brain abnormality. No definite epileptiform activity was seen. When compared to the EEG from 11/28/2023, the background seems to have much improved, with resolution of triphasic waves. Clinical correlation is recommended. * Based upon above information, we will continue Vimpat. Keppra was discontinued by Dr. Sutton. * Await NMDA antibodies. * Neurologically clear for discharge.
[2023-12-09] MEDS ORDERED: LACOSAMIDE 50 MG TABLET PO SCH (21:00)
== END 2023-12-09 19:29 | DRG 871 ==
LOC: EC 22:35 → OBSVTOIN 11-22 00:41 → 6NMEDSUR 11-22 00:41 → 3SCARD 11-26 15:42
PROVIDERS: ADMIT Internal Medicine; ATTEND Internal Medicine
PROC: 009U3ZX Drainage of Spinal Canal, Percutaneous Approach, Diagnostic (ICD-10-PCS; principal; 2023-11-29)
DX: A41.89 Other specified sepsis (principal); G92.8 Other toxic encephalopathy; E87.20 Acidosis, unspecified; E85.4 Organ-limited amyloidosis; F03.92 Unspecified dementia, unspecified severity, with psychotic disturbance; F05 Delirium due to known physiological condition; E87.0 Hyperosmolality and hypernatremia; Z16.19 Resistance to other specified beta lactam antibiotics; N30.00 Acute cystitis without hematuria; R47.01 Aphasia; G25.3 Myoclonus; E11.65 Type 2 diabetes mellitus with hyperglycemia; J44.9 Chronic obstructive pulmonary disease, unspecified; I48.0 Paroxysmal atrial fibrillation; S06.5XAS Traumatic subdural hemorrhage with loss of consciousness status unknown, sequela; Z79.4 Long term (current) use of insulin; I65.21 Occlusion and stenosis of right carotid artery; E03.9 Hypothyroidism, unspecified; I10 Essential (primary) hypertension; T38.3X6A Underdosing of insulin and oral hypoglycemic [antidiabetic] drugs, initial encounter; Z79.891 Long term (current) use of opiate analgesic; Z79.01 Long term (current) use of anticoagulants; T36.1X5A Adverse effect of cephalosporins and other beta-lactam antibiotics, initial encounter; E83.42 Hypomagnesemia; E87.6 Hypokalemia; B96.89 Other specified bacterial agents as the cause of diseases classified elsewhere; I68.0 Cerebral amyloid angiopathy; W07.XXXA Fall from chair, initial encounter; Z87.440 Personal history of urinary (tract) infections; Z82.0 Family history of epilepsy and other diseases of the nervous system; Z79.890 Hormone replacement therapy; Z79.899 Other long term (current) drug therapy; Z79.85 Long-term (current) use of injectable non-insulin antidiabetic drugs; Z79.51 Long term (current) use of inhaled steroids; Z88.0 Allergy status to penicillin; Z79.52 Long term (current) use of systemic steroids; Z28.310 Unvaccinated for COVID-19; Z91.148 Patient's other noncompliance with medication regimen for other reason; Z91.81 History of falling; Y92.009 Unspecified place in unspecified non-institutional (private) residence as the place of occurrence of the external cause; Z79.1 Long term (current) use of non-steroidal anti-inflammatories (NSAID)
CPT/HCPCS: 36415; 70450; 70496; 70498; 70553; 71045; 80048; 80053; 80306; 81001; 82140; 82550; 82607; 82746; 82945; 83036; 83605; 83735; 83873; 84157; 84443; 85025; 85027; 85610; 85652; 85730; 86140; 86695; 86696; 87040; 87070; 87077; 87086; 87186; 87205; 88108; 89050; 93005; 93880; 93970; 94640; 94760; 95813; 95816; 96361; 96365; 99285

== ENCOUNTER 2024-01-07 17:27 | Observation (INO) | payer MEDICARE ==
--- NOTE | 2024-01-07 17:56 | ED ---
Weakness HPI - General Source: patient, EMS Mode of arrival: EMS Limitations: altered mental status - History of Present Illness MD Complaint: generalized weakness, lack of energy, difficulty walking -: unknown Location: generalized Consistency: constant Improves with: none Worsens with: none Associated Symptoms: nausea/vomiting, other (cough) <JabariglennGary - Last Filed: 01/08/24 00:09> - General Source: RN notes reviewed, old records reviewed Mode of arrival: EMS Limitations: altered mental status <Shravan Saldana - Last Filed: 01/08/24 02:12> - General Chief complaint: Weakness Stated complaint: Weakness Time Seen by Provider: 01/07/24 17:37 - History of Present Illness Initial comments: This is a 83-year-old female to the ER for evaluation of debility, weakness not acting appropriately at home. Were has increasing debility and increasing weakness and just released from [facility] where she was at an inpatient rehabilitation, family does not feel comfortable taking care of this patient at home (Shravan Saldana) - Related Data Home Medications Medication Instructions Recorded Confirmed Acetaminophen [Tylenol 8 Hour] 1,300 mg PO HS 08/25/23 11/22/23 Acetaminophen [Tylenol Arthritis] 650 mg PO AC-BRKFST 08/25/23 11/22/23 Apixaban [Eliquis] 5 mg PO AC-BID 08/25/23 11/22/23 Atorvastatin [Lipitor] 40 mg PO AC-BRKFST 08/25/23 11/22/23 Calcium Carbonate [Calcium] 600 mg PO HS 08/25/23 11/22/23 Diclofenac Sodium Gel [Voltaren 1% 1 applic TOPICAL QID PRN 08/25/23 11/22/23 Gel] Dulaglutide [Trulicity] 0.75 mg SQ WE 08/25/23 11/22/23 Escitalopram [Lexapro] 20 mg PO DAILY 08/25/23 11/22/23 Ferrous Sulfate [Iron (65 MG 325 mg PO HS 08/25/23 11/22/23 Elemental)] Ipratropium-Albuterol Nebulize 3 ml INHALATION RT-QID PRN 08/25/23 11/22/23 [Duoneb 0.5 mg-3 mg/3 ml Soln] Levothyroxine Sodium [Synthroid] 12.5 mcg PO AC-BRKFST 08/25/23 11/22/23 Loperamide HCl [Imodium A-D] 2 mg PO QID PRN 08/25/23 11/22/23 Loratadine 10 mg PO HS 08/25/23 11/22/23 Montelukast [Singulair] 10 mg PO HS 08/25/23 11/22/23 [place]-3/Dha/Epa/Fish Oil [Fish Oil 1 cap PO HS 08/25/23 11/22/23 1,000 mg Softgel] Pantoprazole [Protonix] 40 mg PO AC-BRKFST 08/25/23 11/22/23 Potassium Gluconate 99 mg PO HS 08/25/23 11/22/23 Prevagen 1 tab PO BID 08/25/23 11/22/23 Super B Complex 1 tab PO HS 08/25/23 11/22/23 Tiotropium 2.5 Mcg/Puff [Spiriva 1 puff INHALATION RT-DAILY PRN 08/25/23 11/22/23 Respimat 2.5 Mcg] predniSONE See Taper PO DIRECTED 11/22/23 11/22/23 Previous Rx's Medication Instructions Recorded Budesonide-Formot 160-4.5 Mcg 2 puff INHALATION RT-BID #1 each 10/28/23 [Symbicort 160-4.5 Mcg Inhaler] Losartan [Cozaar] 50 mg PO DAILY #30 tab 10/28/23 Acetaminophen Tab [Tylenol] 650 mg PO Q6HR PRN tab 11/04/23 Ipratropium-Albuterol Nebulize 3 ml INHALATION RT-QID #100 each 11/04/23 [Duoneb 0.5 mg-3 mg/3 ml Soln] Diltiazem Cd [Cardizem CD] 180 mg PO DAILY cap 12/09/23 Gabapentin [Neurontin] 300 mg PO TID 3 Days #9 cap 12/09/23 Insulin Detemir (Levemir) [Levemir] 15 unit SQ DAILY@0700 each 12/09/23 Lacosamide 100 mg PO BID #60 tab 12/09/23 Nystatin 100,000 Unit/gm Oint 1 applic TOPICAL TID each 12/09/23 [Mycostatin Oint] Thiamine [Vitamin B-1] 100 mg PO DAILY tab 12/09/23 amLODIPine [Norvasc] 5 mg PO DAILY tab 12/09/23 Cephalexin [Keflex] 500 mg PO TID #21 cap 01/08/24 Allergies Allergy/AdvReac Type Severity Reaction Status Date / Time Penicillins Allergy Rash/Hives Verified 11/22/23 09:47 Review of Systems ROS Other: All systems not noted in ROS Statement are negative. Constitutional: Reports: chills, weakness. Denies: fever ENT: Denies: throat pain, congestion Respiratory: Reports: cough. Denies: dyspnea, wheezes Cardiovascular: Reports: edema (Chronic). Denies: chest pain, orthopnea, syncope Gastrointestinal: Reports: nausea, vomiting. Denies: abdominal pain, diarrhea, melena, hematochezia Genitourinary: Denies: dysuria, hematuria Musculoskeletal: Denies: back pain Skin: Denies: rash Neurological: Denies: headache, weakness <Gary Smimons - Last Filed: 01/08/24 00:09> ROS Other: All systems not noted in ROS Statement are negative. <Shravan Saldana - Last Filed: 01/08/24 02:12> ROS Statement: Those systems with pertinent positive or pertinent negative responses have been documented in the HPI. Past Medical History Past Medical History: Atrial Fibrillation, Diabetes Mellitus, Hypertension, Memory Impairment Additional Past Medical History / Comment(s): patient poor historian History of Any Multi-Drug Resistant Organisms: VRE Date of last positivie culture/infection: 11/01/23 MDRO Source:: Urine Past Surgical History: Appendectomy Additional Past Surgical History / Comment(s): patient poor historian Past Anesthesia/Blood Transfusion Reactions: No Reported Reaction Smoking Status: Unknown if ever smoked <Gary Simmons - Last Filed: 01/08/24 00:09> General Exam Limitations: altered mental status General appearance: alert, in no apparent distress Head exam: Present: atraumatic, normocephalic Eye exam: Present: normal appearance. Absent: scleral icterus, conjunctival injection ENT exam: Present: mucous membranes dry Neck exam: Present: normal inspection, full ROM Respiratory exam: Present: normal lung sounds bilaterally. Absent: respiratory distress, wheezes, rales, rhonchi Cardiovascular Exam: Present: regular rate, normal rhythm, normal heart sounds. Absent: systolic murmur, diastolic murmur, rubs, gallop GI/Abdominal exam: Present: soft. Absent: distended, tenderness, guarding, rebound, mass Extremities exam: Present: normal inspection, normal capillary refill, pedal edema (There is edema bilaterally at the ankles). Absent: calf tenderness Neurological exam: Present: alert, CN II-XII intact. Absent: oriented X3, motor sensory deficit Skin exam: Present: warm, dry, intact, normal color. Absent: rash <Gary Simmons - Last Filed: 01/08/24 00:09> General appearance: alert, in no apparent distress Head exam: Present: atraumatic, normocephalic, normal inspection Eye exam: Present: normal appearance, PERRL, EOMI. Absent: scleral icterus, conjunctival injection, periorbital swelling ENT exam: Present: normal exam, mucous membranes moist Neck exam: Present: normal inspection. Absent: tenderness, meningismus, lymphadenopathy Respiratory exam: Present: normal lung sounds bilaterally. Absent: respiratory distress, wheezes, rales, rhonchi, stridor Cardiovascular Exam: Present: regular rate, normal rhythm, normal heart sounds. Absent: systolic murmur, diastolic murmur, rubs, gallop, clicks GI/Abdominal exam: Present: soft, normal bowel sounds. Absent: distended, tenderness, guarding, rebound, rigid Extremities exam: Present: normal inspection, full ROM, normal capillary refill. Absent: tenderness, pedal edema, joint swelling, calf tenderness Back exam: Present: normal inspection Neurological exam: Present: alert, oriented X3, CN II-XII intact Psychiatric exam: Present: normal affect, normal mood Skin exam: Present: warm, dry, intact, normal color. Absent: rash <Shravan Saldana - Last Filed: 01/08/24 02:12> Course <Shravan Saldana - Last Filed: 01/08/24 02:12> Vital Signs 01/07/24 01/07/24 01/08/24 17:30 22:23 00:32 Temperature 97.8 F Pulse Rate 86 82 92 Respiratory 16 18 16 Rate Blood Pressure 131/75 132/72 137/78 O2 Sat by Pulse 97 96 97 Oximetry - Reevaluation(s) Reevaluation #1: 01/08/24 02:10 Medical record is reviewed (Shravan Saldana) Reevaluation #2: 01/08/24 02:11 Spoke with family who does not feel comfortable with patient being discharged home (Shravan Saldana) Reevaluation #3: 01/08/24 02:11 Patient reported he is also questions answered (Shravan Saldana) EKG Findings - EKG Results: EKG: WNL, sinus rhythm (86 bpm), normal axis, normal QRS, normal ST/T <Gary Simmons - Last Filed: 01/08/24 00:09> - EKG Results: EKG: interpreted by ERMD <Shravan Saldana - Last Filed: 01/08/24 02:12> Medical Decision Making - Lab Data Result diagrams: 01/07/24 18:41 01/07/24 18:41 <Gary Simmons - Last Filed: 01/08/24 00:09> - Lab Data Result diagrams: 01/07/24 18:41 01/07/24 18:41 - EKG Data -: EKG Interpreted by Me - Radiology Data Radiology results: report reviewed (X-rays negative for acute disease), image reviewed <Shravan Saldana - Last Filed: 01/08/24 02:12> - Medical Decision Making 83 female to the ER for evaluation of urinary tract infection with significant weakness. Patient has severe debility altered mental status and will admit for IV antibiotics patient is unreliable to take medications on an outpatient basis (Shravan Saldana) - Lab Data Lab Results 01/07/24 01/07/24 01/07/24 Range/Units 18:41 18:41 18:41 WBC 4.4 (3.8-10.6) k/uL RBC 4.12 (3.80-5.40) m/uL Hgb 12.0 (11.4-16.0) gm/dL Hct 36.8 (34.0-46.0) % MCV 89.2 (80.0-100.0) fL MCH 29.1 (25.0-35.0) pg MCHC 32.6 (31.0-37.0) g/dL RDW 15.3 (11.5-15.5) % Plt Count 190 (150-450) k/uL MPV 7.8 Neutrophils % 62 % Lymphocytes % 24 % Monocytes % 7 % Eosinophils % 3 % Basophils % 1 % Neutrophils # 2.8 (1.3-7.7) k/uL Lymphocytes # 1.1 (1.0-4.8) k/uL Monocytes # 0.3 (0-1.0) k/uL Eosinophils # 0.1 (0-0.7) k/uL Basophils # 0.0 (0-0.2) k/uL PT 10.1 (10.0-12.5) sec INR 0.9 (<1.2) APTT 16.8 L (22.0-30.0) sec Sodium 139 (137-145) mmol/L Potassium 3.9 (3.5-5.1) mmol/L Chloride 108 H (98-107) mmol/L Carbon Dioxide 23 (22-30) mmol/L Anion Gap 8 mmol/L BUN 8 (7-17) mg/dL Creatinine 0.67 (0.52-1.04) mg/dL Est GFR (CKD-EPI)AfAm >90 (>60 ml/min/1.73 sqM) Est GFR (CKD-EPI)NonAf 82 (>60 ml/min/1.73 sqM) Glucose 117 H (74-99) mg/dL Plasma Lactic Acid [place] (0.7-2.0) mmol/L Calcium 8.4 (8.4-10.2) mg/dL Magnesium 1.8 (1.6-2.3) mg/dL Total Bilirubin 0.7 (0.2-1.3) mg/dL AST 21 (14-36) U/L ALT 17 (4-34) U/L Alkaline Phosphatase 90 (38-126) U/L Troponin I (0.000-0.034) ng/mL Total Protein 6.1 L (6.3-8.2) g/dL Albumin 3.4 L (3.5-5.0) g/dL Urine Color Urine Appearance (Clear) Urine pH (5.0-8.0) Ur Specific [place] (1.001-1.035) Urine Protein (Negative) Urine Glucose (UA) (Negative) Urine Ketones (Negative) Urine Blood (Negative) Urine Nitrite (Negative) Urine Bilirubin (Negative) Urine Urobilinogen (<2.0) mg/dL Ur Leukocyte Esterase (Negative) Urine RBC (0-5) /hpf Urine WBC (0-5) /hpf Urine WBC Clumps (None) /hpf Ur Squamous Epith Cells (0-4) /hpf Urine Bacteria (None) /hpf Hyaline Casts (0-2) /lpf Granular Casts (0) /lpf WBC Casts (0) /lpf Influenza Type A (PCR) (Not Detectd) Influenza Type B (PCR) (Not Detectd) RSV (PCR) (Not Detectd) SARS-CoV-2 (PCR) (Not Detectd) 01/07/24 01/07/24 01/07/24 Range/Units 18:41 18:41 18:41 WBC (3.8-10.6) k/uL RBC (3.80-5.40) m/uL Hgb (11.4-16.0) gm/dL Hct (34.0-46.0) % MCV (80.0-100.0) fL MCH (25.0-35.0) pg MCHC (31.0-37.0) g/dL RDW (11.5-15.5) % Plt Count (150-450) k/uL MPV Neutrophils % % Lymphocytes % % Monocytes % % Eosinophils % % Basophils % % Neutrophils # (1.3-7.7) k/uL Lymphocytes # (1.0-4.8) k/uL Monocytes # (0-1.0) k/uL Eosinophils # (0-0.7) k/uL Basophils # (0-0.2) k/uL PT (10.0-12.5) sec INR (<1.2) APTT (22.0-30.0) sec Sodium (137-145) mmol/L Potassium (3.5-5.1) mmol/L Chloride (98-107) mmol/L Carbon Dioxide (22-30) mmol/L Anion Gap mmol/L BUN (7-17) mg/dL Creatinine (0.52-1.04) mg/dL Est GFR (CKD-EPI)AfAm (>60 ml/min/1.73 sqM) Est GFR (CKD-EPI)NonAf (>60 ml/min/1.73 sqM) Glucose (74-99) mg/dL Plasma Lactic Acid [place] 1.4 (0.7-2.0) mmol/L Calcium (8.4-10.2) mg/dL Magnesium (1.6-2.3) mg/dL Total Bilirubin (0.2-1.3) mg/dL AST (14-36) U/L ALT (4-34) U/L Alkaline Phosphatase (38-126) U/L Troponin I <0.012 (0.000-0.034) ng/mL Total Protein (6.3-8.2) g/dL Albumin (3.5-5.0) g/dL Urine Color Urine Appearance (Clear) Urine pH (5.0-8.0) Ur Specific [place] (1.001-1.035) Urine Protein (Negative) Urine Glucose (UA) (Negative) Urine Ketones (Negative) Urine Blood (Negative) Urine Nitrite (Negative) Urine Bilirubin (Negative) Urine Urobilinogen (<2.0) mg/dL Ur Leukocyte Esterase (Negative) Urine RBC (0-5) /hpf Urine WBC (0-5) /hpf Urine WBC Clumps (None) /hpf Ur Squamous Epith Cells (0-4) /hpf Urine Bacteria (None) /hpf Hyaline Casts (0-2) /lpf Granular Casts (0) /lpf WBC Casts (0) /lpf Influenza Type A (PCR) Not Detected (Not Detectd) Influenza Type B (PCR) Not Detected (Not Detectd) RSV (PCR) Not Detected (Not Detectd) SARS-CoV-2 (PCR) Not Detected (Not Detectd) 01/08/24 Range/Units 00:45 WBC (3.8-10.6) k/uL RBC (3.80-5.40) m/uL Hgb (11.4-16.0) gm/dL Hct (34.0-46.0) % MCV (80.0-100.0) fL MCH (25.0-35.0) pg MCHC (31.0-37.0) g/dL RDW (11.5-15.5) % Plt Count (150-450) k/uL MPV Neutrophils % % Lymphocytes % % Monocytes % % Eosinophils % % Basophils % % Neutrophils # (1.3-7.7) k/uL Lymphocytes # (1.0-4.8) k/uL Monocytes # (0-1.0) k/uL Eosinophils # (0-0.7) k/uL Basophils # (0-0.2) k/uL PT (10.0-12.5) sec INR (<1.2) APTT (22.0-30.0) sec Sodium (137-145) mmol/L Potassium (3.5-5.1) mmol/L Chloride (98-107) mmol/L Carbon Dioxide (22-30) mmol/L Anion Gap mmol/L BUN (7-17) mg/dL Creatinine (0.52-1.04) mg/dL Est GFR (CKD-EPI)AfAm (>60 ml/min/1.73 sqM) Est GFR (CKD-EPI)NonAf (>60 ml/min/1.73 sqM) Glucose (74-99) mg/dL Plasma Lactic Acid [place] (0.7-2.0) mmol/L Calcium (8.4-10.2) mg/dL Magnesium (1.6-2.3) mg/dL Total Bilirubin (0.2-1.3) mg/dL AST (14-36) U/L ALT (4-34) U/L Alkaline Phosphatase (38-126) U/L Troponin I (0.000-0.034) ng/mL Total Protein (6.3-8.2) g/dL Albumin (3.5-5.0) g/dL Urine Color Light Yellow Urine Appearance Turbid H (Clear) Urine pH 6.5 (5.0-8.0) Ur Specific [place] 1.017 (1.001-1.035) Urine Protein Trace H (Negative) Urine Glucose (UA) Negative (Negative) Urine Ketones Negative (Negative) Urine Blood Small H (Negative) Urine Nitrite Positive H (Negative) Urine Bilirubin Negative (Negative) Urine Urobilinogen <2.0 (<2.0) mg/dL Ur Leukocyte Esterase Large H (Negative) Urine RBC 10 H (0-5) /hpf Urine WBC >182 H (0-5) /hpf Urine WBC Clumps Many H (None) /hpf Ur Squamous Epith Cells 3 (0-4) /hpf Urine Bacteria Many H (None) /hpf Hyaline Casts 28 H (0-2) /lpf Granular Casts 9 (0) /lpf WBC Casts 28 (0) /lpf Influenza Type A (PCR) (Not Detectd) Influenza Type B (PCR) (Not Detectd) RSV (PCR) (Not Detectd) SARS-CoV-2 (PCR) (Not Detectd) Disposition Is patient prescribed a controlled substance at d/c from ED?: No <Gary Simmons - Last Filed: 01/08/24 00:09> Is patient prescribed a controlled substance at d/c from ED?: No Time of Disposition: 00:00 <Shravan Saldana - Last Filed: 01/08/24 02:12> Clinical Impression: URI (upper respiratory infection), UTI (urinary tract infection), Dehydration, Weakness Disposition: ADMITTED IP TO THIS HOSP Condition: Fair Prescriptions: Cephalexin [Keflex] 500 mg PO TID #21 cap Referrals: None,Stated [Primary Care Provider] - 1-2 days
[2024-01-07] MEDS: SODIUM CHLORIDE 0.9% 1,000 ML IV STA (18:48)
[2024-01-07] MEDS: SODIUM CHLORIDE 0.9% 500 ML 500 ML IV STA (18:49)
[2024-01-07 18:58] LABS: Basophils % (A) 1 %; Eosinophils # (A) 0.1 k/uL (0-0.7); Eosinophils % (A) 3 %; HCT 36.8 % (34.0-46.0); Lymphocytes # (A) 1.1 k/uL (1.0-4.8); Lymphocytes % (A) 24 %; MCH 29.1 pg (25.0-35.0); MCHC 32.6 g/dL (31.0-37.0); MCV 89.2 fL (80.0-100.0); Mean Platelet Volume 7.8; Monocytes # (A) 0.3 k/uL (0-1.0); Monocytes % (A) 7 %; Neutrophils # (A) 2.8 k/uL (1.3-7.7); Neutrophils % (A) 62 %; Platelet Count 190 k/uL (150-450); RBC 4.12 m/uL (3.80-5.40); RDW 15.3 % (11.5-15.5); WBC 4.4 k/uL (3.8-10.6)
[2024-01-07 19:13] LABS: INR 0.9 (<1.2); Prothrombin Time 10.1 sec (10.0-12.5)
[2024-01-07 19:17] LABS: Partial Thromboplastin Time 16.8 sec (22.0-30.0)
[2024-01-07 19:19] LABS: ALT 17 U/L (4-34); AST 21 U/L (14-36); African American GFR (CKD) >90 (>60 ml/min/1.73 sqM); Albumin 3.4 g/dL (3.5-5.0); Alkaline Phosphatase 90 U/L (38-126); Anion Gap 8 mmol/L; Blood Urea Nitrogen 8 mg/dL (7-17); Calcium 8.4 mg/dL (8.4-10.2); Carbon Dioxide 23 mmol/L (22-30); Chloride 108 mmol/L (98-107); Glucose 117 mg/dL (74-99); Magnesium 1.8 mg/dL (1.6-2.3); Non-African American GFR(CKD) 82 (>60 ml/min/1.73 sqM); Potassium 3.9 mmol/L (3.5-5.1); Sodium 139 mmol/L (137-145); Total Bilirubin 0.7 mg/dL (0.2-1.3); Total Protein 6.1 g/dL (6.3-8.2)
--- NOTE | 2024-01-07 20:32 | XR ---
EXAMINATION TYPE: XR chest 2V DATE OF EXAM: 01/07/2024 8:28 PM CLINICAL INDICATION:Female, 83 years old with history of Weakness; PHH COMPARISON: Chest radiographs from 12/03/2023 TECHNIQUE: XR chest 2V Frontal and lateral views of the chest. FINDINGS: Lungs/Pleura: Subsegmental atelectasis is present in the lung bases. No evidence of pleural effusion or pneumothorax Pulmonary vascularity: Unremarkable. Heart/mediastinum: Cardiomediastinal silhouette is unremarkable. Atherosclerotic calcifications are seen in the aorta. Musculoskeletal: No acute osseous pathology. IMPRESSION: No acute cardiopulmonary disease/process.
[2024-01-08 01:16] LABS: Appearance,Urine Turbid (Clear); Bacteria,Urine Many /hpf; Bilirubin,Urine Negative (Negative); Blood,Urine Small (Negative); Color,Urine Light Yellow; Glucose,Urine (UA) Negative (Negative); Granular Casts,Urine 9 /lpf (0); Hyaline Casts,Urine 28 /lpf (0-2); Ketones,Urine Negative (Negative); Leukocyte Esterase,Urine Large (Negative); Nitrite,Urine Positive (Negative); PH, Urine 6.5 (5.0-8.0); Protein,Urine Trace (Negative); RBC,Urine 10 /hpf (0-5); Specific Gravity,Urine 1.017 (1.001-1.035); Squamous Epithelial Cell,Urine 3 /hpf (0-4); Urobilinogen,Urine <2.0 mg/dL (<2.0); WBC,Urine >182 /hpf (0-5); White Blood Cell Casts,Urine 28 /lpf (0)
[2024-01-08] MEDS ORDERED: MORPHINE SULFATE 4 MG/ML SYRINGE IV PRN (02:09)
[2024-01-08] MEDS ORDERED: ONDANSETRON 4 MG/2 ML VIAL IVP PRN (02:09)
[2024-01-08] MEDS ORDERED: NALOXONE 0.4 MG/ML 1 ML VIAL IV PRN (02:09)
[2024-01-08] MEDS: SODIUM CHLORIDE 0.9% 1,000 ML IV SCH (02:40)
--- NOTE | 2024-01-08 05:13 | P.HPIM ---
History of Present Illness H&P Date: 01/08/24 Patient is a 83-year-old female with a PMH of A-fib on Eliquis, type II DM, history of CVA, hypothyroidism, and history of UTIs who presents to the emergency room brought in via EMS due to worsening confusion. Of note, the patient was released from [facility] where the patient had been for the past 6 weeks for [facility] following the hospitalization for UTI and metabolic encephalopathy. The patient was again confused at the time of interview and could not say what brought her to the emergency room. She denied any active complaints at the time of interview however. Denied experiencing urinary comp laints, chest discomfort, shortness of breath, fever, chills, cough, nausea, vomiting, abdominal pain, diarrhea. EKG in the emergency room revealed sinus rhythm at [address]/T wave changes noted as reviewed by me. Chest x-ray was unremarkable. Laboratory evaluation revealed a grossly abnormal UA with a WBC count 4.4, hemoglobin 12.0, sodium 139, glucose 117. ED documentation reviewed and case discussed with ED provider. Review of systems: Pertinent positives and negatives as discussed in HPI, a complete review of systems was performed and all other systems are negative. Physical examination: Vital signs reviewed General: non toxic, no distress, appears at stated age, normal weight Derm: no unusual rashes/lesions, warm Head: atraumatic, normocephalic, symmetric Eyes: EOMI, no lid lag, anicteric sclera, pupils equal round reactive to light ENT: Nose and ears atraumatic Neck: No cervical lymphadenopathy, trachea midline, supple Mouth: no lip lesion, mucus membranes moist Cardiovascular: S1S2 reg, no murmur, positive dorsalis pedis pulse bilateral, no edema Lungs: CTA bilateral, no rhonchi, no rales, no accessory muscle use Abdominal: soft, nontender to palpation, no guarding Ext: muscle strength 4 out of 5 in all 4 extremities grossly, no gross muscle atrophy, no contractures, Neuro: CN II-XI grossly intact, no gross focal neuro deficits Psych: Oriented to person and place, not oriented to time Assessment: UTI Toxic metabolic encephalopathy in setting of above UTI Chronic conditions: A-fib, type II DM, history of CVA, hypothyroidism Imaging: EKG in the emergency room revealed sinus rhythm at [address]/T wave changes noted as reviewed by me. Chest x-ray was unremarkable. Data Review: Laboratory evaluation revealed a grossly abnormal UA with a WBC count 4.4, hemoglobin 12.0, sodium 139, glucose 117. Plan: Start patient on Invanz 1g qd (penicillin allergy - w/ previous culture) Infectious disease consult Continue IV fluids with normal saline 75 cc/h Continue with home medications once reconciled DVT prophylaxis: Lovenox subcu The patient is admitted with an anticipated greater than 2 midnight stay for evaluation of UTI CODE STATUS: Full Code Discussed with: Patient Anticipated discharge place: Home Past Medical History Past Medical History: Atrial Fibrillation, Diabetes Mellitus, Hypertension, Memory Impairment Additional Past Medical History / Comment(s): patient poor historian History of Any Multi-Drug Resistant Organisms: VRE Date of last positivie culture/infection: 11/01/23 MDRO Source:: Urine Past Surgical History: Appendectomy Additional Past Surgical History / Comment(s): patient poor historian Past Anesthesia/Blood Transfusion Reactions: No Reported Reaction Smoking Status: Unknown if ever smoked Medications and Allergies Home Medications Medication Instructions Recorded Confirmed Type Acetaminophen [Tylenol 8 Hour] 1,300 mg PO HS 08/25/23 11/22/23 History Acetaminophen [Tylenol Arthritis] 650 mg PO AC-BRKFST 08/25/23 11/22/23 History Apixaban [Eliquis] 5 mg PO AC-BID 08/25/23 11/22/23 History Atorvastatin [Lipitor] 40 mg PO AC-BRKFST 08/25/23 11/22/23 History Calcium Carbonate [Calcium] 600 mg PO HS 08/25/23 11/22/23 History Diclofenac Sodium Gel [Voltaren 1% 1 applic TOPICAL QID PRN 08/25/23 11/22/23 History Gel] Dulaglutide [Trulicity] 0.75 mg SQ WE 08/25/23 11/22/23 History Escitalopram [Lexapro] 20 mg PO DAILY 08/25/23 11/22/23 History Ferrous Sulfate [Iron (65 MG 325 mg PO HS 08/25/23 11/22/23 History Elemental)] Ipratropium-Albuterol Nebulize 3 ml INHALATION RT-QID PRN 08/25/23 11/22/23 History [Duoneb 0.5 mg-3 mg/3 ml Soln] Levothyroxine Sodium [Synthroid] 12.5 mcg PO AC-BRKFST 08/25/23 11/22/23 History Loperamide HCl [Imodium A-D] 2 mg PO QID PRN 08/25/23 11/22/23 History Loratadine 10 mg PO HS 08/25/23 11/22/23 History Montelukast [Singulair] 10 mg PO HS 08/25/23 11/22/23 History [place]-3/Dha/Epa/Fish Oil [Fish Oil 1 cap PO HS 08/25/23 11/22/23 History 1,000 mg Softgel] Pantoprazole [Protonix] 40 mg PO AC-BRKFST 08/25/23 11/22/23 History Potassium Gluconate 99 mg PO HS 08/25/23 11/22/23 History Prevagen 1 tab PO BID 08/25/23 11/22/23 History Super B Complex 1 tab PO HS 08/25/23 11/22/23 History Tiotropium 2.5 Mcg/Puff [Spiriva 1 puff INHALATION RT-DAILY PRN 08/25/23 11/22/23 History Respimat 2.5 Mcg] Budesonide-Formot 160-4.5 Mcg 2 puff INHALATION RT-BID #1 each 10/28/23 11/22/23 Rx [Symbicort 160-4.5 Mcg Inhaler] Losartan [Cozaar] 50 mg PO DAILY #30 tab 10/28/23 11/22/23 Rx Acetaminophen Tab [Tylenol] 650 mg PO Q6HR PRN tab 11/04/23 11/22/23 Rx Ipratropium-Albuterol Nebulize 3 ml INHALATION RT-QID #100 each 11/04/23 11/22/23 Rx [Duoneb 0.5 mg-3 mg/3 ml Soln] predniSONE See Taper PO DIRECTED 11/22/23 11/22/23 History Diltiazem Cd [Cardizem CD] 180 mg PO DAILY cap 12/09/23 Rx Gabapentin [Neurontin] 300 mg PO TID 3 Days #9 cap 12/09/23 Rx Insulin Detemir (Levemir) [Levemir] 15 unit SQ DAILY@0700 each 12/09/23 Rx Lacosamide 100 mg PO BID #60 tab 12/09/23 Rx Nystatin 100,000 Unit/gm Oint 1 applic TOPICAL TID each 12/09/23 Rx [Mycostatin Oint] Thiamine [Vitamin B-1] 100 mg PO DAILY tab 12/09/23 Rx amLODIPine [Norvasc] 5 mg PO DAILY tab 12/09/23 Rx Cephalexin [Keflex] 500 mg PO TID #21 cap 01/08/24 Rx Allergies Allergy/AdvReac Type Severity Reaction Status Date / Time Penicillins Allergy Rash/Hives Verified 11/22/23 09:47 Physical Exam Vitals: Vital Signs Temp Pulse Resp BP Pulse Ox 01/08/24 03:06 93 18 145/76 94 L 01/08/24 00:32 92 16 137/78 97 01/07/24 22:23 82 18 132/72 96 01/07/24 17:30 97.8 F 86 16 131/75 97 Intake and Output 01/07/24 01/07/24 01/08/24 14:59 22:59 06:59 Other: Weight 104.326 kg Results CBC & Chem 7: 01/07/24 18:41 01/07/24 18:41 Labs: Abnormal Lab Results - Last 24 Hours (Table) 01/07/24 01/07/24 01/08/24 Range/Units 18:41 18:41 00:45 APTT 16.8 L (22.0-30.0) sec Chloride 108 H (98-107) mmol/L Glucose 117 H (74-99) mg/dL Total Protein 6.1 L (6.3-8.2) g/dL Albumin 3.4 L (3.5-5.0) g/dL Urine Appearance Turbid H (Clear) Urine Protein Trace H (Negative) Urine Blood Small H (Negative) Urine Nitrite Positive H (Negative) Ur Leukocyte Esterase Large H (Negative) Urine RBC 10 H (0-5) /hpf Urine WBC >182 H (0-5) /hpf Urine WBC Clumps Many H (None) /hpf Urine Bacteria Many H (None) /hpf Hyaline Casts 28 H (0-2) /lpf
[2024-01-08] MEDS: ERTAPENEM 1 GM in SODIUM CHLORIDE 0.9% 50 ML IVPB STA (05:49)
[2024-01-08] MEDS: ENOXAPARIN 40 MG/0.4 ML SYRINGE SQ SCH (11:00)
[2024-01-08 11:40] LABS: Glucose,Whole Blood 125 mg/dL (70-110)
--- NOTE | 2024-01-08 17:10 | P.CONS ---
History of Present Illness - Reason for Consult Consult date: 01/08/24 UTI Requesting physician: Snehal Pantoja - Chief Complaint Generalized weakness x few days - History of Present Illness Patient is a 83-year-old female with a past medical history significant for Atrial Fibrillation, Diabetes Mellitus, Hypertension, Memory Impairment, patient has been brought into the hospital for evaluation of generalized weakness lack of energy and difficulty walking, apparently the patient was not acting appropriately at home and the family does not feel comfortable taking care of this patient at home patient recently discharged from the local prison patient on presentation to the hospital was afebrile and no fever have recorded subsequently patient was not tachycardic hypotensive or hypoxic and no need for supplemental oxygen patient did have white count of 4.4, creatinine 0.67 liver enzymes are normal she did have a positive UA influenza RSV COVID testing was negative patient did receive a dose of Invanz with a previous problem with Invanz with mental status changes and was discontinued infectious he was consulted for further management of antibiotic therapy. At the time my evaluation patient denies having any fever or any chills patient is breathing comfortably on room air denies any chest pain shortness of breath or cough patient denies having any nausea no vomiting no abdominal pain denies any burning or frequency of urine and no diarrhea Review of Systems Positive point and negatives has been mentioned in the HPI, complete review of systems was performed and all other systems are negative Past Medical History Past Medical History: Atrial Fibrillation, Diabetes Mellitus, Hypertension, Memory Impairment Additional Past Medical History / Comment(s): patient poor historian History of Any Multi-Drug Resistant Organisms: VRE Year Discovered:: 11/01/23 MDRO Source:: Urine Past Surgical History: Appendectomy Additional Past Surgical History / Comment(s): patient poor historian Past Anesthesia/Blood Transfusion Reactions: No Reported Reaction Past Psychological History: No Psychological Hx Reported Smoking Status: Unknown if ever smoked Past Alcohol Use History: None Reported Past Drug Use History: None Reported - Past Family History Father History Unknown: Yes Medications and Allergies Home Medications Medication Instructions Recorded Confirmed Type Acetaminophen [Tylenol 8 Hour] 1,300 mg PO HS 08/25/23 01/08/24 History Acetaminophen [Tylenol Arthritis] 650 mg PO DAILY 08/25/23 01/08/24 History Apixaban [Eliquis] 5 mg PO BID 08/25/23 01/08/24 History Atorvastatin [Lipitor] 40 mg PO HS 08/25/23 01/08/24 History Calcium Carbonate [Calcium] 600 mg PO HS 08/25/23 01/08/24 History Diclofenac Sodium Gel [Voltaren 1% 1 applic TOPICAL QID PRN 08/25/23 01/08/24 History Gel] Dulaglutide [Trulicity] 1.5 mg SQ WE 08/25/23 01/08/24 History Escitalopram [Lexapro] 20 mg PO DAILY 08/25/23 01/08/24 History Ferrous Sulfate [Iron (65 MG 325 mg PO HS 08/25/23 01/08/24 History Elemental)] Ipratropium-Albuterol Nebulize 3 ml INHALATION RT-QID PRN 08/25/23 01/08/24 History [Duoneb 0.5 mg-3 mg/3 ml Soln] Levothyroxine Sodium [Synthroid] 12.5 mcg PO AC-BRKFST 08/25/23 01/08/24 History Loperamide HCl [Imodium A-D] 2 mg PO QID PRN 08/25/23 01/08/24 History Loratadine 10 mg PO HS 08/25/23 01/08/24 History Montelukast [Singulair] 10 mg PO HS 08/25/23 01/08/24 History [place]-3/Dha/Epa/Fish Oil [Fish Oil 1 cap PO HS 08/25/23 01/08/24 History 1,000 mg Softgel] Potassium Gluconate 99 mg PO HS 08/25/23 01/08/24 History Prevagen 1 tab PO BID 08/25/23 01/08/24 History Super B Complex 1 tab PO HS 08/25/23 01/08/24 History Tiotropium 2.5 Mcg/Puff [Spiriva 1 puff INHALATION RT-DAILY PRN 08/25/23 01/08/24 History Respimat 2.5 Mcg] Budesonide-Formot 160-4.5 Mcg 2 puff INHALATION RT-BID #1 each 10/28/23 01/08/24 Rx [Symbicort 160-4.5 Mcg Inhaler] Losartan [Cozaar] 50 mg PO DAILY #30 tab 10/28/23 01/08/24 Rx Acetaminophen Tab [Tylenol] 650 mg PO Q6HR PRN tab 11/04/23 01/08/24 Rx Ipratropium-Albuterol Nebulize 3 ml INHALATION RT-QID #100 each 11/04/23 01/08/24 Rx [Duoneb 0.5 mg-3 mg/3 ml Soln] Diltiazem Cd [Cardizem CD] 180 mg PO DAILY cap 12/09/23 01/08/24 Rx Thiamine [Vitamin B-1] 100 mg PO DAILY tab 12/09/23 01/08/24 Rx amLODIPine [Norvasc] 5 mg PO DAILY tab 12/09/23 01/08/24 Rx Insulin Glargine,Hum.rec.anlog 30 units SQ HS 01/08/24 01/08/24 History [Lantus Solostar Pen] Omeprazole 20 mg PO HS 01/08/24 01/08/24 History Allergies Allergy/AdvReac Type Severity Reaction Status Date / Time Penicillins Allergy Rash/Hives Verified 01/08/24 17:05 cefepime AdvReac Confusion Verified 01/09/24 08:14 Physical Exam Vitals: Vital Signs Temp Pulse Pulse Resp BP BP Pulse Ox 01/08/24 11:17 98.6 F 93 20 111/74 96 01/08/24 08:42 97.9 F 95 20 165/96 94 L 01/08/24 07:48 97.6 F 91 20 138/73 96 01/08/24 05:55 90 16 136/71 94 L 01/08/24 03:06 93 18 145/76 94 L 01/08/24 00:32 92 16 137/78 97 01/07/24 22:23 82 18 132/72 96 01/07/24 17:30 97.8 F 86 16 131/75 97 Intake and Output 01/08/24 01/08/24 01/08/24 06:59 14:59 22:59 Other: Voiding Method Diaper # Voids 3 Weight 104.326 kg GENERAL DESCRIPTION: Elderly female lying in bed, no distress. No tachypnea or accessory muscle of respiration use. HEENT: Shows Pallor , no scleral icterus. Oral mucous membrane is dry. No pharyngeal erythema or thrush NECK: Trachea central, no thyromegaly. LUNGS: Unlabored breathing. Clear to auscultation anteriorly. No wheeze or crackle. HEART: S1, S2, regular rate and rhythm. No loud murmur ABDOMEN: Soft, no tenderness , guarding or rigidity, no organomegaly EXTREMITIES: No edema of feet. SKIN: No rash, no masses palpable. NEUROLOGICAL: The patient is awake, alert, mood and affect normal. Results CBC & Chem 7: 01/09/24 06:39 01/09/24 06:39 Labs: Abnormal Lab Results - Last 24 Hours (Table) 01/07/24 01/07/24 01/08/24 Range/Units 18:41 18:41 00:45 APTT 16.8 L (22.0-30.0) sec Chloride 108 H (98-107) mmol/L Glucose 117 H (74-99) mg/dL POC Glucose (mg/dL) (70-110) mg/dL Total Protein 6.1 L (6.3-8.2) g/dL Albumin 3.4 L (3.5-5.0) g/dL Urine Appearance Turbid H (Clear) Urine Protein Trace H (Negative) Urine Blood Small H (Negative) Urine Nitrite Positive H (Negative) Ur Leukocyte Esterase Large H (Negative) Urine RBC 10 H (0-5) /hpf Urine WBC >182 H (0-5) /hpf Urine WBC Clumps Many H (None) /hpf Urine Bacteria Many H (None) /hpf Hyaline Casts 28 H (0-2) /lpf 01/08/24 Range/Units 11:29 APTT (22.0-30.0) sec Chloride (98-107) mmol/L Glucose (74-99) mg/dL POC Glucose (mg/dL) 125 H (70-110) mg/dL Total Protein (6.3-8.2) g/dL Albumin (3.5-5.0) g/dL Urine Appearance (Clear) Urine Protein (Negative) Urine Blood (Negative) Urine Nitrite (Negative) Ur Leukocyte Esterase (Negative) Urine RBC (0-5) /hpf Urine WBC (0-5) /hpf Urine WBC Clumps (None) /hpf Urine Bacteria (None) /hpf Hyaline Casts (0-2) /lpf Assessment and Plan (1) Asymptomatic bacteriuria Status: Acute Code(s): R82.71 - BACTERIURIA SNOMED Code(s): 631348403 (2) Weakness Status: Acute Code(s): R53.1 - WEAKNESS SNOMED Code(s): 88217985 Plan: 1patient presented hospital with generalized weakness and some mental status changes possible metabolic encephalopathy patient with no fever no white count and denies having any urinary symptoms clinical suspicion is low for symptomatic urinary tract infection. 2patient with multiple antibiotic ALLERGIES that would limit the number of antibiotic safe to use 3 agree with discontinuation of Invanz will monitor the patient closely off antibiotic therapy awaiting urology evaluation. We will follow on clinical condition and cultures to further adjust medication if needed Thank you for this consultation we will follow the patient along with you Dictation was produced using [employer] dictation software. please excuse any grammatical, word or spelling errors. Time with Patient: Greater than 30
[2024-01-08] MEDS: APIXABAN 5 MG TAB PO SCH (17:29)
[2024-01-08] MEDS: amLODIPine 5 MG TAB PO SCH (17:29)
[2024-01-08] MEDS: DILTIAZEM CD 180 MG CAP.ER.24H PO SCH (17:29)
[2024-01-08] MEDS: ATORVASTATIN 40 MG TAB PO SCH (17:29)
[2024-01-08] MEDS: ESCITALOPRAM 20 MG TAB PO SCH (17:29)
[2024-01-08 17:38] LABS: Glucose,Whole Blood 129 mg/dL (70-110)
[2024-01-08] MEDS: MONTELUKAST 10 MG TAB PO SCH (20:12)
[2024-01-08 20:24] LABS: Glucose,Whole Blood 146 mg/dL (70-110)
[2024-01-08] MEDS: SYMBICORT 160-4.5 MCG INHALER INHALATION SCH (20:42)
--- NOTE | 2024-01-09 02:28 | P.CNNES ---
History of Present Illness Consult date: 01/08/24 Requesting physician: Oleg Butler Reason for Consult: cerebral amyloid angiopathy? History of Present Illness: Patient is a 83-year-old female, recently seen in hospital consultation for metabolic encephalopathy, and seizure-like activity, which was felt to be related to cephalosporin toxicity. Patient came to the hospital by ambulance yesterday at 5:27 PM. As per EMS flow sheet, when they arrived, patient was sitting in her wheelchair awake and alert. Patient's daughter on the scene mentioned that patient is getting weak last night. Patient has an extensive history of UTI. Patient's urine has been very foul smelling. Patient was alert and oriented 1-2. GCS was 12. Patient was able to answer a few questions. Daughter mentions that patient is normally somewhat confused but is worse. Patient did not have any complaints at that time. Patient's vitals at the scene was blood pressure 152/76, pulse rate 92, respirations 18, saturation 97%. Blood glucose was 216. Patient's blood tests shows normal CBC, PT/PTT, normal CMP. Troponin negative. UA shows positive nitrite, large amount of leukocyte esterase, many [place] clumps. Influenza, RSV and coronavirus PCR negative. Urine cultures negative. Chest x-ray showed no acute cardiopulmonary disease. EKG shows sinus rhythm. Patient's MRI of the brain from 11/28/2023 revealed scattered bilateral foci of grooming artifact suspicious for microhemorrhage throughout the brain, correlate for cerebral amyloid angiopathy. No evidence of intracranial mass, acute/subacute infarct or abnormal enhancement. Nonspecific white matter changes, likely related to small vessel ischemic disease. Neurology was consulted for amyloid angiopathy. Patient at present is laying comfortably in the bed. Patient states that she is forgetful since she came from [place]. Previous tests: * CTA of head and neck revealed severe proximal right ICA stenosis. Patient started on aspirin 81 mg daily. Patient also on Eliquis 5 mg twice a day. * Carotid Doppler: less than 50% stenosis of bilateral carotid bifurcation. Nonvisulaization of the left vertebral artery. vascular surgery felt asymptomatic right ICA. * MRI Brain: It showed scattered bilateral foci of blooming artifact suspicious for microhemorrhage throughout the brain, correlate for cerebral amyloid angiopathy. No evidence of intracranial mass, acute/subacute infarct or abnormal enhancement. Nonspecific white matter changes likely related to small vessel ischemic disease. * Doppler ultrasound of bilateral upper extremities negative for DVT. * Initial EEG #1 11/26/2023 was reported abnormal due to presence of diffuse bilaterally symmetric high amplitude frontally maximal sharp-appearing waves seen at 2-3 Hz, suggestive of underlying cortical irritability and tendency for seizures. Intermittent myoclonic jerks weren't noticed with presence of high amplitude myogenic activity lasting for about 1-2 seconds. After the Ativan 1 mg IV push was given, this high amplitude sharp-appearing waves dissipated along with myoclonic twitches. Otherwise the background was diffusely slow, suggestive of severe encephalopathy. Overall, this EEG may suggest myoclonic status, which was aborted with 1 mg Ativan. Clinical correlation and follow-up EEG recommended. * Repeat EEG #2 11/27/2023 reported as revealed persistently abnormal EEG with presence of background slowing of moderate to severe degree, suggestive of toxic metabolic encephalopathy. Presence of intermittent high amplitude frontally predominant waves, which at times appears triphasic type in quality but sometimes they become rhythmic at 1-2 Hz. Overall this is consistent with severe encephalopathy. When compared to the EEG from 09/25/2024, there is overall improvement in the background and much less frequency of sharp- appearing waves. Recommend continuous EEG monitoring for further evaluation. * Repeat prolonged EEG #3 11/28/2023: This is an abnormal prolonged routine EEG. The background slowing is suggestive of moderate encephalopathy. There is no focal slowing, epileptiform discharge or seizure on the EEG. * CSF study: clear, colorless, nucleated cells is 6 (normal is 0-5), glucose 87, protein is 57 She does not have meningitis or encephalitis from CSF study. CSF gram stain is negative. Viral panel PCR in the CSF all negative including HSV 1 and HSV 2 PCR. Myelin basic proteins < 2.0, normal. Review of Systems On review of systems negative except as mentioned in HPI. Past Medical History Past Medical History: Atrial Fibrillation, Diabetes Mellitus, Hypertension, Memory Impairment Additional Past Medical History / Comment(s): patient poor historian History of Any Multi-Drug Resistant Organisms: VRE Date of last positivie culture/infection: 11/01/23 MDRO Source:: Urine Past Surgical History: Appendectomy Additional Past Surgical History / Comment(s): patient poor historian Past Anesthesia/Blood Transfusion Reactions: No Reported Reaction Past Psychological History: No Psychological Hx Reported Smoking Status: Unknown if ever smoked Past Alcohol Use History: None Reported Past Drug Use History: None Reported - Past Family History Father History Unknown: Yes Medications and Allergies Home Medications Medication Instructions Recorded Confirmed Type Acetaminophen [Tylenol 8 Hour] 1,300 mg PO HS 08/25/23 01/08/24 History Acetaminophen [Tylenol Arthritis] 650 mg PO DAILY 08/25/23 01/08/24 History Apixaban [Eliquis] 5 mg PO BID 08/25/23 01/08/24 History Atorvastatin [Lipitor] 40 mg PO HS 08/25/23 01/08/24 History Calcium Carbonate [Calcium] 600 mg PO HS 08/25/23 01/08/24 History Diclofenac Sodium Gel [Voltaren 1% 1 applic TOPICAL QID PRN 08/25/23 01/08/24 History Gel] Dulaglutide [Trulicity] 1.5 mg SQ WE 08/25/23 01/08/24 History Escitalopram [Lexapro] 20 mg PO DAILY 08/25/23 01/08/24 History Ferrous Sulfate [Iron (65 MG 325 mg PO HS 08/25/23 01/08/24 History Elemental)] Ipratropium-Albuterol Nebulize 3 ml INHALATION RT-QID PRN 08/25/23 01/08/24 History [Duoneb 0.5 mg-3 mg/3 ml Soln] Levothyroxine Sodium [Synthroid] 12.5 mcg PO AC-BRKFST 08/25/23 01/08/24 History Loperamide HCl [Imodium A-D] 2 mg PO QID PRN 08/25/23 01/08/24 History Loratadine 10 mg PO HS 08/25/23 01/08/24 History Montelukast [Singulair] 10 mg PO HS 08/25/23 01/08/24 History [place]-3/Dha/Epa/Fish Oil [Fish Oil 1 cap PO HS 08/25/23 01/08/24 History 1,000 mg Softgel] Potassium Gluconate 99 mg PO HS 08/25/23 01/08/24 History Prevagen 1 tab PO BID 08/25/23 01/08/24 History Super B Complex 1 tab PO HS 08/25/23 01/08/24 History Tiotropium 2.5 Mcg/Puff [Spiriva 1 puff INHALATION RT-DAILY PRN 08/25/23 01/08/24 History Respimat 2.5 Mcg] Budesonide-Formot 160-4.5 Mcg 2 puff INHALATION RT-BID #1 each 10/28/23 01/08/24 Rx [Symbicort 160-4.5 Mcg Inhaler] Losartan [Cozaar] 50 mg PO DAILY #30 tab 10/28/23 01/08/24 Rx Acetaminophen Tab [Tylenol] 650 mg PO Q6HR PRN tab 11/04/23 01/08/24 Rx Ipratropium-Albuterol Nebulize 3 ml INHALATION RT-QID #100 each 11/04/2312/16 Rx [Duoneb 0.5 mg-3 mg/3 ml Soln] Diltiazem Cd [Cardizem CD] 180 mg PO DAILY cap 12/09/23 01/08/24 Rx Gabapentin [Neurontin] 300 mg PO TID 3 Days #9 cap 12/09/23 01/08/24 Rx Lacosamide 100 mg PO BID #60 tab 12/09/23 01/08/24 Rx Thiamine [Vitamin B-1] 100 mg PO DAILY tab 12/09/23 01/08/24 Rx amLODIPine [Norvasc] 5 mg PO DAILY tab 12/09/23 01/08/24 Rx Cephalexin [Keflex] 500 mg PO TID #21 cap 01/08/24 Rx Insulin Glargine,Hum.rec.anlog 30 units SQ HS 01/08/24 01/08/24 History [Lantus Solostar Pen] Omeprazole 20 mg PO HS 01/08/24 01/08/24 History Allergies Allergy/AdvReac Type Severity Reaction Status Date / Time Penicillins Allergy Rash/Hives Verified 01/08/24 17:05 ertapenem [From Invanz] AdvReac Unknown Verified 01/08/24 17:05 Physical Examination - Vital Signs Vital Signs: Vital Signs Temp Pulse Pulse Resp BP BP Pulse Ox 01/08/24 11:17 98.6 F 93 20 111/74 96 01/08/24 08:42 97.9 F 95 20 165/96 94 L 01/08/24 07:48 97.6 F 91 20 138/73 96 03/24/24 05:55 90 16 136/71 94 L 01/08/24 03:06 93 18 145/76 94 L 01/08/24 00:32 92 16 137/78 97 01/07/24 22:23 82 18 132/72 96 Intake and Output 01/08/24 01/08/24 01/08/24 06:59 14:59 22:59 Output Total 200 Balance -200 Output: Urine 200 Other: Voiding Method Diaper # Voids 3 Weight 104.326 kg Patient is an elderly female, pleasant, in no acute distress. Patient is alert awake. Patient knows it is December and the year is 20--, . Patient says she leaves in [place] but then said was [place]. She could not tell name of the current building she is in. Regarding president, she knows that it is not Trump. On prompting, she was able to tell Mr. Escudero. Speech and language functions are normal. Patient can name and repeat very well. No aphasia or dysarthria. Attention, concentration is intact and fund of knowledge is limited. Patient has significantly positive bilateral palmomental reflex but negative visuospatial apraxia. On cranial nerve examination, pupils are equal, round and reacting to light, visual [place] are full on confrontation, with no neglect on double simultaneous stimulation. Extraocular muscles are intact with no nystagmus. Face is symmetric, tongue protrudes to the midline. Palatal elevation and sensation normal, hearing and shoulder shrug normal, facial sensation normal. On muscle strength testing, there is no pronator drift and the strength is normal in arms and legs distally and proximally, except deltoid which is 5- bilaterally. Deep tendon reflexes are symmetric 1 in the arms at biceps and brachioradialis, 2 at the knees and ankles bilaterally. Plantars are withdrawal. Sensory to touch is equal with no neglect on double simultaneous stimulation. Cerebellar function showed no ataxia for [id number] testing. No dysdiadochokinesia. No ataxia for [id number] testing on either side. Tone is mildly increased bilaterally and bulk of muscles normal. Gait deferred.. On general examination, there is no carotid bruit or murmur, S1-S2 audible. Chest is clear on consultation. Abdomen is soft nontender. No organomegaly, bowel sounds present. Peripheral pulses are present. No peripheral edema. Results - Laboratory Findings CBC and BMP: 01/07/24 18:41 01/07/24 18:41 Abnormal Lab Findings: Abnormal Labs 01/07/24 01/07/24 01/08/24 18:41 18:41 00:45 APTT 16.8 L Chloride 108 H Glucose 117 H POC Glucose (mg/dL) Total Protein 6.1 L Albumin 3.4 L Urine Appearance Turbid H Urine Protein Trace H Urine Blood Small H Urine Nitrite Positive H Ur Leukocyte Esterase Large H Urine RBC 10 H Urine WBC >182 H Urine WBC Clumps Many H Urine Bacteria Many H Hyaline Casts 28 H 01/08/24 01/08/24 01/08/24 11:29 17:35 20:20 APTT Chloride Glucose POC Glucose (mg/dL) 125 H 129 H 146 H Total Protein Albumin Urine Appearance Urine Protein Urine Blood Urine Nitrite Ur Leukocyte Esterase Urine RBC Urine WBC Urine WBC Clumps Urine Bacteria Hyaline Casts Assessment and Plan Assessment: * Probable cognitive impairment. Patient's MRI of the brain revealed possibility of abdominal aortic angiopathy. This can predispose for cognitive impairment, and also risk for hemorrhagic strokes. * Delirium, likely due to acute UTI. * History of recurrent UTI * Atrial fibrillation, currently on Eliquis * Hypertension * Diabetes Plan: * Continue Eliquis 5 mg twice a day for stroke prevention. * Continue Lipitor 40 mg daily. * Optimize control of blood pressure. * Patient currently on Invanz for UTI. * Avoid use of cefepime, as patient previously developed cefepime toxicity. * No other neurological workup indicated. * Please call neurology if any other concerns. Dr. Ernie Sutton starting neurology services in the morning. * Thank you for the consult.
[2024-01-09] MEDS: LEVOTHYROXINE 25 MCG TAB PO SCH (05:34)
[2024-01-09] MEDS ORDERED: ERTAPENEM 1 GM in SODIUM CHLORIDE 0.9% 50 ML IVPB SCH (06:00)
[2024-01-09 07:56] LABS: Glucose,Whole Blood 137 mg/dL (70-110)
[2024-01-09] MEDS: THIAMINE 100 MG TAB PO SCH (08:17)
[2024-01-09] MEDS: PANTOPRAZOLE 40 MG TABLET PO SCH (08:17)
[2024-01-09] MEDS: LOSARTAN 50 MG TAB PO SCH (08:17)
[2024-01-09 11:25] LABS: Basophils # (A) 0.03 X 10*3/uL (0.00-0.10); Basophils % (A) 0.7 %; Eosinophils # (A) 0.11 X 10*3/uL (0.04-0.35); Eosinophils % (A) 2.5 %; HCT 34.4 % (37.2-46.3); HGB 10.9 g/dL (12.0-15.0); Lymphocytes # (A) 1.36 X 10*3/uL (0.90-5.00); Lymphocytes % (A) 30.9 %; MCHC 31.7 g/dL (32.0-37.0); MCV 88.4 FL (80.0-97.0); Monocytes # (A) 0.43 X 10*3/uL (0.20-1.00); Monocytes % (A) 9.8 %; NRBC Per 100 WBC 0 X 10*3/uL (0.00-0.01); Neutrophils # (A) 2.44 X 10*3/uL (1.80-7.70); Neutrophils % (A) 55.4 %; Platelet Count 205 X 10*3/uL (140-440); RBC 3.89 X 10*6/uL (4.10-5.20)
[2024-01-09 11:30] LABS: Glucose,Whole Blood 195 mg/dL (70-110)
[2024-01-09 11:57] LABS: ALT 13 U/L (8-44); AST 17 U/L (13-35); Albumin 3.4 g/dL (3.8-4.9); Albumin/Globulin Ratio 1.48 Ratio (1.60-3.17); Alkaline Phosphatase 90 U/L (41-126); BUN/Creat Ratio 8.43 Ratio (12.00-20.00); Blood Urea Nitrogen 5.9 mg/dL (9.0-27.0); Calcium 8.9 mg/dL (8.7-10.3); Carbon Dioxide 24.3 mmol/L (21.6-31.8); Chloride 107 mmol/L (96-109); Globulin 2.3 g/dL (1.6-3.3); Glucose 140 mg/dL (70-110); Magnesium 1.7 mg/dL (1.5-2.4); Phosphorus 3.8 mg/dL (2.4-5.1); Sodium 142 mmol/L (135-145); Total Bilirubin 0.5 mg/dL (0.3-1.2); Total Protein 5.7 g/dL (6.2-8.2)
--- NOTE | 2024-01-09 15:32 | P.PN ---
Subjective Progress Note Date: 01/09/24 Pts mentation seems improved. Pts dispo plan is to go back home with daughter. Gen: In NAD, non-toxic HEENT: normocephalic, atraumatic, hearing acuity is intant, mucous membranes moist CVS: perfusing all extremities well, no pitting edema, Respiratory: symmetric chest expansion, no accessory muscle use, GI: soft, NTTP, ND, : no suprapubic tenderness, no CVA tenderness MSK/Derm: no rashes, cyanosis Neuro: CN II-XII intact, no motor weakness, Psych: cooperative, euthymic mood, judgment and insight is intact Hospital Course: Patient is a 83-year-old female with a PMH of A-fib on Eliquis, type II DM, history of CVA, hypothyroidism, and history of UTIs who presented to the emergency room brought in via EMS due to worsening confusion. EKG in the emergency room revealed sinus rhythm at [address]/T wave changes noted as reviewed by me. Chest x-ray was unremarkable. Laboratory evaluation revealed a grossly abnormal UA with a WBC count 4.4, hemoglobin 12.0, sodium 139, glucose 117. Assessment: UTI Toxic metabolic encephalopathy in setting of above UTI Chronic conditions: A-fib, type II DM, history of CVA, hypothyroidism Imaging: EKG in the emergency room revealed sinus rhythm at [address]/T wave changes noted as reviewed by me. Chest x-ray was unremarkable. Data Review: Laboratory evaluation revealed a grossly abnormal UA with a WBC count 4.4, hemoglobin 12.0, sodium 139, glucose 117. Plan: Discontinue abx and observe Infectious disease consult recs appreciated Continue IV fluids with normal saline 75 cc/h Continue with home medications once reconciled DVT prophylaxis: Lovenox subcu The patient is admitted with an anticipated greater than 2 midnight stay for evaluation of UTI CODE STATUS: Full Code Discussed with: Patient Anticipated discharge place: Home Objective - Vital Signs Vital signs: Vital Signs Temp 98.0 F 01/09/24 14:00 Pulse 87 01/09/24 14:00 Resp 17 01/09/24 14:00 BP 111/71 01/09/24 14:00 Pulse Ox 97 01/09/24 14:00 FiO2 Intake & Output 03/24/24 03/25/24 03/25/24 18:59 06:59 18:59 Output Total 200 1100 Balance -200 -1100 Weight 104.326 kg Output: Urine 200 1100 Other: Voiding Method Diaper Diaper Diaper # Voids 3 - Labs CBC & Chem 7: 01/09/24 06:39 01/09/24 06:39 Labs: Abnormal Lab Results - Last 24 Hours (Table) 01/08/24 01/08/24 01/09/24 Range/Units 17:35 20:20 06:39 WBC (4.50-10.00) X 10*3/uL RBC (4.10-5.20) X 10*6/uL Hgb (12.0-15.0) g/dL Hct (37.2-46.3) % MCHC (32.0-37.0) g/dL RDW (11.5-14.5) % BUN (9.0-27.0) mg/dL BUN/Creatinine Ratio (12.00-20.00) Ratio Glucose (70-110) mg/dL POC Glucose (mg/dL) 129 H 146 H (70-110) mg/dL Total Protein (6.2-8.2) g/dL Albumin (3.8-4.9) g/dL Albumin/Globulin Ratio (1.60-3.17) Ratio Procalcitonin 0.17 H (0.02-0.09) ng/mL 01/09/24 01/09/24 01/09/24 Range/Units 06:39 06:39 07:55 WBC 4.40 L (4.50-10.00) X 10*3/uL RBC 3.89 L (4.10-5.20) X 10*6/uL Hgb 10.9 L (12.0-15.0) g/dL Hct 34.4 L (37.2-46.3) % MCHC 31.7 L (32.0-37.0) g/dL RDW 15.0 H (11.5-14.5) % BUN 5.9 L (9.0-27.0) mg/dL BUN/Creatinine Ratio 8.43 L (12.00-20.00) Ratio Glucose 140 H (70-110) mg/dL POC Glucose (mg/dL) 137 H (70-110) mg/dL Total Protein 5.7 L (6.2-8.2) g/dL Albumin 3.4 L (3.8-4.9) g/dL Albumin/Globulin Ratio 1.48 L (1.60-3.17) Ratio Procalcitonin (0.02-0.09) ng/mL 01/09/24 Range/Units 11:27 WBC (4.50-10.00) X 10*3/uL RBC (4.10-5.20) X 10*6/uL Hgb (12.0-15.0) g/dL Hct (37.2-46.3) % MCHC (32.0-37.0) g/dL RDW (11.5-14.5) % BUN (9.0-27.0) mg/dL BUN/Creatinine Ratio (12.00-20.00) Ratio Glucose (70-110) mg/dL POC Glucose (mg/dL) 195 H (70-110) mg/dL Total Protein (6.2-8.2) g/dL Albumin (3.8-4.9) g/dL Albumin/Globulin Ratio (1.60-3.17) Ratio Procalcitonin (0.02-0.09) ng/mL
--- NOTE | 2024-01-09 15:34 | P.PN ---
Subjective Progress Note Date: 01/09/24 Principal diagnosis: Reason for follow-up is a positive urine concerning for UTI Patient is a 83-year-old female with a past medical history significant for Atrial Fibrillation, Diabetes Mellitus, Hypertension, Memory Impairment, patient has been brought into the hospital for evaluation of generalized weakness lack of energy and difficulty walking, patient also have a positive UA and received a dose of Invanz subsequently discontinued. On today's visit that is 01/09/2024,the patient denies any fever or any chills, patient is breathing comfortably on room air, the patient denies chest pain shortness of breath and no significant cough, patient denies abdominal pain, no nausea vomiting or diarrhea. Mention feeling slightly better today. Patient white count is 4.40, creatinine 0.7 CRP 0.50 Objective - Vital Signs Vital signs: Vital Signs Temp 97.7 F 01/09/24 08:08 Pulse 92 01/09/24 08:08 Resp 17 01/09/24 08:08 BP 158/89 01/09/24 08:08 Pulse Ox 97 01/09/24 08:08 FiO2 Intake & Output 01/08/24 01/09/24 01/09/24 18:59 06:59 18:59 Output Total 200 1100 Balance -200 -1100 Weight 104.326 kg Output: Urine 200 1100 Other: Voiding Method Diaper Diaper Diaper # Voids 3 - Exam GENERAL DESCRIPTION: An elderly female lying in bed in no distress RESPIRATORY SYSTEM: Unlabored breathing , decreased breath sounds at bases HEART: S1 S2 regular rate and rhythm , ABDOMEN: Soft , no tenderness EXTREMITIES: No edema feet - Labs CBC & Chem 7: 01/09/24 06:39 01/09/24 06:39 Labs: Abnormal Lab Results - Last 24 Hours (Table) 01/08/24 01/08/24 01/09/24 Range/Units 17:35 20:20 06:39 WBC (4.50-10.00) X 10*3/uL RBC (4.10-5.20) X 10*6/uL Hgb (12.0-15.0) g/dL Hct (37.2-46.3) % MCHC (32.0-37.0) g/dL RDW (11.5-14.5) % BUN (9.0-27.0) mg/dL BUN/Creatinine Ratio (12.00-20.00) Ratio Glucose (70-110) mg/dL POC Glucose (mg/dL) 129 H 146 H (70-110) mg/dL Total Protein (6.2-8.2) g/dL Albumin (3.8-4.9) g/dL Albumin/Globulin Ratio (1.60-3.17) Ratio Procalcitonin 0.17 H (0.02-0.09) ng/mL 01/09/24 01/09/24 01/09/24 Range/Units 06:39 06:39 07:55 WBC 4.40 L (4.50-10.00) X 10*3/uL RBC 3.89 L (4.10-5.20) X 10*6/uL Hgb 10.9 L (12.0-15.0) g/dL Hct 34.4 L (37.2-46.3) % MCHC 31.7 L (32.0-37.0) g/dL RDW 15.0 H (11.5-14.5) % BUN 5.9 L (9.0-27.0) mg/dL BUN/Creatinine Ratio 8.43 L (12.00-20.00) Ratio Glucose 140 H (70-110) mg/dL POC Glucose (mg/dL) 137 H (70-110) mg/dL Total Protein 5.7 L (6.2-8.2) g/dL Albumin 3.4 L (3.8-4.9) g/dL Albumin/Globulin Ratio 1.48 L (1.60-3.17) Ratio Procalcitonin (0.02-0.09) ng/mL 01/09/24 Range/Units 11:27 WBC (4.50-10.00) X 10*3/uL RBC (4.10-5.20) X 10*6/uL Hgb (12.0-15.0) g/dL Hct (37.2-46.3) % MCHC (32.0-37.0) g/dL RDW (11.5-14.5) % BUN (9.0-27.0) mg/dL BUN/Creatinine Ratio (12.00-20.00) Ratio Glucose (70-110) mg/dL POC Glucose (mg/dL) 195 H (70-110) mg/dL Total Protein (6.2-8.2) g/dL Albumin (3.8-4.9) g/dL Albumin/Globulin Ratio (1.60-3.17) Ratio Procalcitonin (0.02-0.09) ng/mL Assessment and Plan (1) Asymptomatic bacteriuria Current Visit: Yes Status: Acute Code(s): R82.71 - BACTERIURIA SNOMED Code(s): 296507125 Plan: 1patient presented hospital with generalized weakness and some mental status changes possible metabolic encephalopathy patient with no fever no white count and denies having any urinary symptoms clinical suspicion is low for symptomatic urinary tract infection. 2patient with multiple antibiotic ALLERGIES that would limit the number of antibiotic safe to use 3patient seem to have shown clinical improvement without antibiotic therapy and did have normal CRP hence we will monitor the patient closely off antibiotic at this point Dictation was produced using [employer] dictation software. please excuse any grammatical, word or spelling errors. Time with Patient: Less than 30
[2024-01-09 16:57] LABS: Glucose,Whole Blood 149 mg/dL (70-110)
[2024-01-09 20:45] LABS: Glucose,Whole Blood 193 mg/dL (70-110)
[2024-01-10] MEDS ORDERED: ACETAMINOPHEN TAB 325 MG TAB PO PRN (09:35)
[2024-01-10 10:00] VITALS: BP 116/68; PULSE 84; RESP 12; TEMP 97.8
--- NOTE | 2024-01-10 11:42 | P.DS ---
Providers Date of admission: 01/08/24 02:09 Expected date of discharge: 01/10/24 Attending physician: Ermias Lopez MD Consults: 01/08/24 04:57 Consult Physician Urgent Consulting Provider: Al Aldana Consult Reason/Comments: UTI Do you want consulting provider notified?: Yes 01/08/24 09:03 Consult Physician Routine Consulting Provider: Sarthak Pino Consult Reason/Comments: cerebral amyloid angiopathy? Do you want consulting provider notified?: Yes Primary care physician: Stated None Hospital Course: Patient is a 83-year-old female with a PMH of A-fib on Eliquis, type II DM, history of CVA, hypothyroidism, and history of UTIs who presents to the emergency room brought in via EMS due to worsening confusion. Of note, the patient was released from [facility] where the patient had been for the past 6 weeks for [facility] following the hospitalization for UTI and metabolic encephalopathy. The patient was again confused at the time of interview and could not say what brought her to the emergency room. She denied any active complaints at the time of interview however. Denied experiencing urinary complaints, chest discomfort, shortness of breath, fever, chills, cough, nausea, vomiting, abdominal pain, diarrhea. EKG in the emergency room revealed sinus rhythm at [address]/T wave changes noted as reviewed by me. Chest x-ray was unremarkable. Laboratory evaluation revealed a grossly abnormal UA with a WBC count 4.4, hemoglobin 12.0, sodium 139, glucose 117. Started on Invanz for treatment for UTI. Neurology and ID consulted. Procal 0.17. CRP 0.5. ID recommended discontinuing antibiotics. Neurology recommended no further workup. 01/09 Patient was seen and examined. Patient reports no complaints. She is alert and oriented x 2-3. Back to baseline. Plans to discharge home today. General: non toxic, no distress, appears at stated age Derm: warm, dry Head: atraumatic, normocephalic, symmetric Eyes: EOMI, no lid lag, anicteric sclera Mouth: no lip lesion, mucus membranes moist Cardiovascular: S1S2 reg, no murmur Lungs: CTA bilateral, no rhonchi, no rales , no accessory muscle use Ext: no gross muscle atrophy, no edema, no contractures Neuro: no focal neuro deficits Psych: Alert, oriented, appropriate affect Discharge Diagnosis: Acute metabolic encephalopathy Asymptomatic bacteriuria Normocytic anemia Chronic conditions: A-fib on Eliquis, type II DM, history of CVA, hypothyroidism, and history of UTIs This complex discharge took 35 minutes to complete. Patient Condition at Discharge: Stable Plan - Discharge Summary Discharge Rx Participant: No New Discharge Prescriptions: Continue [place]-3/Dha/Epa/Fish Oil [Fish Oil 1,000 mg Softgel] 1 cap PO HS Loratadine 10 mg PO HS Ferrous Sulfate [Iron (65 MG Elemental)] 325 mg PO HS Escitalopram [Lexapro] 20 mg PO DAILY Atorvastatin [Lipitor] 40 mg PO HS Tiotropium 2.5 Mcg/Puff [Spiriva Respimat 2.5 Mcg] 1 puff INHALATION RT-DAILY PRN PRN Reason: Shortness Of Breath Diclofenac Sodium Gel [Voltaren 1% Gel] 1 applic TOPICAL QID PRN PRN Reason: Pain Loperamide HCl [Imodium A-D] 2 mg PO QID PRN PRN Reason: Diarrhea Acetaminophen [Tylenol Arthritis] 650 mg PO DAILY Losartan [Cozaar] 50 mg PO DAILY #30 tab Ipratropium-Albuterol Nebulize [Duoneb 0.5 mg-3 mg/3 ml Soln] 3 ml INHALATION RT-QID #100 each Acetaminophen Tab [Tylenol] 650 mg PO Q6HR PRN tab PRN Reason: Mild Pain Or Fever > 100.5 Diltiazem Cd [Cardizem CD] 180 mg PO DAILY cap Omeprazole 20 mg PO HS Super B Complex 1 tab PO HS Acetaminophen [Tylenol 8 Hour] 1,300 mg PO HS Potassium Gluconate 99 mg PO HS Levothyroxine Sodium [Synthroid] 12.5 mcg PO AC-BRKFST Calcium Carbonate [Calcium] 600 mg PO HS Montelukast [Singulair] 10 mg PO HS Apixaban [Eliquis] 5 mg PO BID Ipratropium-Albuterol Nebulize [Duoneb 0.5 mg-3 mg/3 ml Soln] 3 ml INHALATION RT-QID PRN PRN Reason: Shortness Of Breath Prevagen 1 tab PO BID Dulaglutide [Trulicity] 1.5 mg SQ WE Budesonide-Formot 160-4.5 Mcg [Symbicort 160-4.5 Mcg Inhaler] 2 puff INHALAT ION RT-BID #1 each amLODIPine [Norvasc] 5 mg PO DAILY tab Thiamine [Vitamin B-1] 100 mg PO DAILY tab Insulin Glargine,Hum.rec.anlog [Lantus Solostar Pen] 30 units SQ HS Discontinued Lacosamide 100 mg PO BID #60 tab Gabapentin [Neurontin] 300 mg PO TID 3 Days #9 cap Discharge Medication List Acetaminophen [Tylenol 8 Hour] 1,300 mg PO HS 08/25/23 [History] Acetaminophen [Tylenol Arthritis] 650 mg PO DAILY 08/25/23 [History] Apixaban [Eliquis] 5 mg PO BID 08/25/23 [History] Atorvastatin [Lipitor] 40 mg PO HS 08/25/23 [History] Calcium Carbonate [Calcium] 600 mg PO HS 08/25/23 [History] Diclofenac Sodium Gel [Voltaren 1% Gel] 1 applic TOPICAL QID PRN 08/25/23 [History] Dulaglutide [Trulicity] 1.5 mg SQ WE 08/25/23 [History] Escitalopram [Lexapro] 20 mg PO DAILY 08/25/23 [History] Ferrous Sulfate [Iron (65 MG Elemental)] 325 mg PO HS 08/25/23 [History] Ipratropium-Albuterol Nebulize [Duoneb 0.5 mg-3 mg/3 ml Soln] 3 ml INHALATION RT-QID PRN 08/25/23 [History] Levothyroxine Sodium [Synthroid] 12.5 mcg PO AC-BRKFST 08/25/23 [History] Loperamide HCl [Imodium A-D] 2 mg PO QID PRN 08/25/23 [History] Loratadine 10 mg PO HS 08/25/23 [History] Montelukast [Singulair] 10 mg PO HS 08/25/23 [History] [place]-3/Dha/Epa/Fish Oil [Fish Oil 1,000 mg Softgel] 1 cap PO HS 08/25/23 [History] Potassium Gluconate 99 mg PO HS 08/25/23 [History] Prevagen 1 tab PO BID 08/25/23 [History] Super B Complex 1 tab PO HS 08/25/23 [History] Tiotropium 2.5 Mcg/Puff [Spiriva Respimat 2.5 Mcg] 1 puff INHALATION RT-DAILY PRN 08/25/23 [History] Budesonide-Formot 160-4.5 Mcg [Symbicort 160-4.5 Mcg Inhaler] 2 puff INHALATION RT-BID #1 each 10/28/23 [Rx] Losartan [Cozaar] 50 mg PO DAILY #30 tab 10/28/23 [Rx] Acetaminophen Tab [Tylenol] 650 mg PO Q6HR PRN tab 11/04/23 [Rx] Ipratropium-Albuterol Nebulize [Duoneb 0.5 mg-3 mg/3 ml Soln] 3 ml INHALATION RT-QID #100 each 11/04/23 [Rx] Diltiazem Cd [Cardizem CD] 180 mg PO DAILY cap 12/09/23 [Rx] Thiamine [Vitamin B-1] 100 mg PO DAILY tab 12/09/23 [Rx] amLODIPine [Norvasc] 5 mg PO DAILY tab 12/09/23 [Rx] Insulin Glargine,Hum.rec.anlog [Lantus Solostar Pen] 30 units SQ HS 01/08/24 [History] Omeprazole 20 mg PO HS 01/08/24 [History] Follow up Appointment(s)/Referral(s): None,Stated [Primary Care Provider] - 1-2 days Residential Home,Health [NON-STAFF] - 1 Week Discharge Disposition: HOME SELF-CARE
--- NOTE | 2024-01-10 14:21 | P.PN ---
Subjective Progress Note Date: 01/10/24 Principal diagnosis: Reason for follow-up is a positive urine concerning for UTI Patient is a 83-year-old female with a past medical history significant for Atrial Fibrillation, Diabetes Mellitus, Hypertension, Memory Impairment, patient has been brought into the hospital for evaluation of generalized weakness lack of energy and difficulty walking, patient also have a positive UA and received a dose of Invanz subsequently discontinued. On today's visit that is 01/10/2024,the patient remains to be afebrile, patient is on room air not requiring supplemental oxygen and denies any shortness of breath no chest pain or cough.Patient denies having any nausea or vomiting, no abdominal pain and no diarrhea has been reported, feeling better. No new labs has been obtained today Objective - Vital Signs Vital signs: Vital Signs Temp 97.8 F 01/10/24 08:30 Pulse 84 01/10/24 08:30 Resp 12 01/10/24 08:30 BP 116/68 01/10/24 08:30 Pulse Ox 96 01/10/24 08:30 FiO2 Intake & Output 01/09/24 01/10/24 01/10/24 18:59 06:59 18:59 Intake Total 900 1480 237 Output Total 900 1200 400 Balance 0 280 -163 Intake: Intake, IV Titration 900 900 Amount Sodium Chloride 0.9% 1, 900 900 000 ml @ 75 mls/hr IV . [id number] [facility] Rx#:[id number] Oral 580 237 Output: Urine 900 1200 400 Other: Voiding Method Diaper Diaper Diaper - Exam GENERAL DESCRIPTION: An elderly female lying in bed in no distress RESPIRATORY SYSTEM: Unlabored breathing , decreased breath sounds at bases HEART: S1 S2 regular rate and rhythm , ABDOMEN: Soft , no tenderness EXTREMITIES: No edema feet - Labs CBC & Chem 7: 01/09/24 06:39 01/09/24 06:39 Labs: Abnormal Lab Results - Last 24 Hours (Table) 01/09/24 01/09/24 Range/Units 16:55 20:44 POC Glucose (mg/dL) 149 H 193 H (70-110) mg/dL Assessment and Plan (1) Asymptomatic bacteriuria Status: Acute Code(s): R82.71 - BACTERIURIA SNOMED Code(s): 737945723 Plan: 1patient presented hospital with generalized weakness and some mental status changes possible metabolic encephalopathy patient with no fever no white count and denies having any urinary symptoms clinical suspicion is low for symptomatic urinary tract infection. 2patient with multiple antibiotic ALLERGIES that would limit the number of antibiotic safe to use 3patient seem to have shown clinical improvement without antibiotic therapy, hence no need for any antibiotic on discharge Dictation was produced using [employer] dictation software. please excuse any grammatical, word or spelling errors. Time with Patient: Less than 30
== END 2024-01-10 13:15 | disposition home health service (06) ==
LOC: EC 17:27 → 5NMEDONC 01-08 02:09
PROVIDERS: ADMIT Internal Medicine; ATTEND Internal Medicine
DX: N39.0 Urinary tract infection, site not specified (principal); G93.41 Metabolic encephalopathy; D64.9 Anemia, unspecified; E03.9 Hypothyroidism, unspecified; I48.91 Unspecified atrial fibrillation; E11.9 Type 2 diabetes mellitus without complications; I10 Essential (primary) hypertension; J06.9 Acute upper respiratory infection, unspecified; E86.0 Dehydration; Z86.73 Personal history of transient ischemic attack (TIA), and cerebral infarction without residual deficits; Z87.440 Personal history of urinary (tract) infections; Z79.4 Long term (current) use of insulin; Z79.01 Long term (current) use of anticoagulants; Z79.51 Long term (current) use of inhaled steroids; Z79.52 Long term (current) use of systemic steroids; Z79.85 Long-term (current) use of injectable non-insulin antidiabetic drugs; Z79.890 Hormone replacement therapy; Z79.899 Other long term (current) drug therapy; Z88.0 Allergy status to penicillin
CPT/HCPCS: 96361 ×3; 96372; 96365; 96366; 96367; 99285; 36415; 94640 ×4; 94760; 93005; 80053 ×2; 83605; 83735 ×2; 84100; 84484; 85025 ×2; 85610; 85730; 86140; 81001; 87086; 87077; 87186; 84145; 87636; 71046; G0378 ×3; J0696; J1650; J1335

== ENCOUNTER 2024-02-25 15:48 | Emergency (ER) | payer MEDICARE ==
[2024-02-25 15:59] VITALS: TEMP 98
--- NOTE | 2024-02-25 16:29 | ED ---
Weakness HPI - General Chief complaint: Weakness Stated complaint: Weakness Time Seen by Provider: 02/25/24 15:53 Source: patient Mode of arrival: EMS Limitations: no limitations - History of Present Illness Initial comments: This patient is an 83-year-old woman who presents to evaluation for generalized weakness. She states that she was at home taking a shower when this occurred. She states that she was calling out for help to her daughter. Her daughter does live with her. The neighbor overheard this and called EMS. The patient states that they brought her here to have evaluation but that the feeling of weakness has resolved. She states it was not a focal weakness. She was feeling weak everywhere like she could not support herself any longer. Patient states that she does have some debility. She gets around her residence by wheelchair. She was living in [place] until July when she moved to [place] and she does live with her daughter now. Complaint: generalized weakness Onset/Timin -: hour(s) Location: generalized Severity scale (1-10): 0 Consistency: now resolved Improves with: none Worsens with: exertion (Taking a shower) Associated Symptoms: denies other symptoms - Related Data Home Medications Medication Instructions Recorded Confirmed Acetaminophen [Tylenol 8 Hour] 1,300 mg PO HS 08/25/23 02/25/24 Acetaminophen [Tylenol Arthritis] 650 mg PO DAILY 08/25/23 02/25/24 Apixaban [Eliquis] 5 mg PO BID 08/25/23 02/25/24 Atorvastatin [Lipitor] 40 mg PO HS 08/25/23 02/25/24 Calcium Carbonate [Calcium] 600 mg PO HS 08/25/23 02/25/24 Diclofenac Sodium Gel [Voltaren 1% 1 applic TOPICAL QID PRN 08/25/23 02/25/24 Gel] Dulaglutide [Trulicity] 1.5 mg SQ WE 08/25/23 02/25/24 Escitalopram [Lexapro] 20 mg PO DAILY 08/25/23 02/25/24 Ferrous Sulfate [Iron (65 MG 325 mg PO HS 08/25/23 02/25/24 Elemental)] Ipratropium-Albuterol Nebulize 3 ml INHALATION RT-QID PRN 08/25/23 02/25/24 [Duoneb 0.5 mg-3 mg/3 ml Soln] Levothyroxine Sodium [Synthroid] 12.5 mcg PO AC-BRKFST 08/25/23 02/25/24 Loperamide HCl [Imodium A-D] 2 mg PO QID PRN 08/25/23 02/25/24 Loratadine 10 mg PO HS 08/25/23 02/25/24 Montelukast [Singulair] 10 mg PO HS 08/25/23 02/25/24 [place]-3/Dha/Epa/Fish Oil [Fish Oil 1 cap PO HS 08/25/23 02/25/24 1,000 mg Softgel] Potassium Gluconate 99 mg PO HS 08/25/23 02/25/24 Prevagen 1 tab PO BID 08/25/23 02/25/24 Super B Complex 1 tab PO HS 08/25/23 02/25/24 Tiotropium 2.5 Mcg/Puff [Spiriva 1 puff INHALATION RT-DAILY PRN 08/25/23 02/25/24 Respimat 2.5 Mcg] Insulin Glargine,Hum.rec.anlog 30 units SQ HS 01/08/24 02/25/24 [Lantus Solostar Pen] Omeprazole 20 mg PO HS 01/08/24 02/25/24 Previous Rx's Medication Instructions Recorded Budesonide-Formot 160-4.5 Mcg 2 puff INHALATION RT-BID #1 each 10/28/23 [Symbicort 160-4.5 Mcg Inhaler] Losartan [Cozaar] 50 mg PO DAILY #30 tab 10/28/23 Acetaminophen Tab [Tylenol] 650 mg PO Q6HR PRN tab 11/04/23 Ipratropium-Albuterol Nebulize 3 ml INHALATION RT-QID #100 each 11/04/23 [Duoneb 0.5 mg-3 mg/3 ml Soln] Diltiazem Cd [Cardizem CD] 180 mg PO DAILY cap 12/09/23 Thiamine [Vitamin B-1] 100 mg PO DAILY tab 12/09/23 amLODIPine [Norvasc] 5 mg PO DAILY tab 12/09/23 Allergies Allergy/AdvReac Type Severity Reaction Status Date / Time Penicillins Allergy Rash/Hives Verified 02/25/24 17:34 cefepime AdvReac Confusion Verified 02/25/24 17:34 Review of Systems ROS Statement: Those systems with pertinent positive or pertinent negative responses have been documented in the HPI. ROS Other: All systems not noted in ROS Statement are negative. Constitutional: Reports: weakness. Denies: fever, chills Respiratory: Denies: cough, dyspnea Cardiovascular: Reports: edema (Chronic left leg edema). Denies: chest pain, palpitations, orthopnea, syncope Gastrointestinal: Denies: abdominal pain, vomiting, diarrhea Genitourinary: Denies: dysuria Musculoskeletal: Denies: back pain Skin: Denies: rash Neurological: Denies: headache, weakness, numbness, confusion Past Medical History Past Medical History: Atrial Fibrillation, Diabetes Mellitus, Hypertension, Memory Impairment Additional Past Medical History / Comment(s): patient poor historian History of Any Multi-Drug Resistant Organisms: VRE Date of last positivie culture/infection: 11/01/23 MDRO Source:: Urine Past Surgical History: Appendectomy Additional Past Surgical History / Comment(s): patient poor historian Past Anesthesia/Blood Transfusion Reactions: No Reported Reaction Past Psychological History: No Psychological Hx Reported Smoking Status: Former smoker Past Alcohol Use History: None Reported Past Drug Use History: None Reported - Past Family History Father History Unknown: Yes General Exam Limitations: no limitations General appearance: alert, in no apparent distress Head exam: Present: atraumatic, normocephalic Eye exam: Present: normal appearance. Absent: scleral icterus, conjunctival injection Neck exam: Present: normal inspection, full ROM Respiratory exam: Present: normal lung sounds bilaterally. Absent: respiratory distress, wheezes, rales, rhonchi, stridor, accessory muscle use Cardiovascular Exam: Present: regular rate, normal rhythm, normal heart sounds. Absent: systolic murmur, diastolic murmur, rubs, gallop GI/Abdominal exam: Present: soft. Absent: distended, tenderness, guarding, rebound, rigid, mass Extremities exam: Present: normal inspection, normal capillary refill, pedal edema (There is left leg edema that the patient states is chronic). Absent: calf tenderness Back exam: Present: normal inspection. Absent: CVA tenderness (R), CVA tenderness (L) Neurological exam: Present: alert, CN II-XII intact. Absent: motor sensory deficit Skin exam: Present: warm, dry, intact, normal color. Absent: rash Course Vital Signs 02/25/24 02/25/24 02/25/24 15:53 18:00 19:00 Temperature 98 F Pulse Rate 84 85 84 Respiratory 20 20 18 Rate Blood Pressure 101/60 126/69 148/96 O2 Sat by Pulse 97 98 98 Oximetry 02/25/24 02/26/24 22:00 01:00 Temperature Pulse Rate 86 83 Respiratory 20 19 Rate Blood Pressure 153/76 148/75 O2 Sat by Pulse 95 95 Oximetry EKG Findings - EKG Results: EKG: interpreted by ERMD, sinus rhythm (With occasional supraventricular premature complex), normal axis - Blocks, [place], Hypertrophy, ST Abn: AV and intraventricular conduction: right bundle branch block (fixed/intermitten t, complete/incomplete) (Incomplete) QRS axis and voltage: low voltage (<0.5 MV total QRS and <1.0 MV in each precordial lead) Medical Decision Making - Medical Decision Making The patient had chest x-ray that I interpreted as negative for acute infiltrate, pneumothorax, congestive heart failure Was pt. sent in by a medical professional or institution ([facility] [place], MATERIAL PROCESSOR, urgent care, hospital, or long term...) When possible be specific @ -[No] Did you speak to anyone other than the patient for history (EMS, parent, family, police, friend...)? What history was obtained from this source @ -[No] Did you review nursing and triage notes (agree or disagree)? Why? @ -[I reviewed and agree with nursing and triage notes] Were old charts reviewed (outside hosp., previous admission, EMS record, old EKG, old radiological studies, urgent care reports/EKG's, long term records)? Report findings @ -[No old charts were reviewed] Differential Diagnosis (chest pain, altered mental status, abdominal pain women, abdominal pain men, vaginal bleeding, weakness, fever, dyspnea, syncope, headache, dizziness, GI bleed, back pain, seizure, CVA, palpatations, mental health, musculoskeletal)? @ -[Differential Weakness: Hypoglycemia, shock, sepsis, hyponatremia, anemia, infection, AL, ETOH, adverse medicine reaction, overdose, stroke, this is not meant to be an all-inclusive list. EKG interpreted by me (3pts min.). @ -[I interpreted as above] X-rays interpreted by me (1pt min.). @ -[I interpreted as above CT interpreted by me (1pt min.). @ -[None done] U/S interpreted by me (1pt. min.). @ -[None done] What testing was considered but not performed or refused? (CT, X-rays, U/S, labs)? Why? @ -[None] What meds were considered but not given or refused? Why? @ -[None] Did you discuss the management of the patient with other professionals (professionals i.e. , PA, MATERIAL PROCESSOR, lab, RT, psych nurse, manager social work, trench shovel operator, teacher, weapons electrical engineering officer, counter caser)? Give summary @ -[No] Was smoking cessation discussed for >3mins.? @ -[No] Was critical care preformed (if so, how long)? @ -[No] Were there social determinants of health that impacted care today? How? (Homelessness, low income, unemployed, alcoholism, drug addiction, transportation, low edu. Level, literacy, decrease access to med. care, fci, r ehab)? @ -[No] Was there de-escalation of care discussed even if they declined (Discuss DNR or withdrawal of care, Hospice)? DNR status @ -[No] What co-morbidities impacted this encounter? (DM, HTN, Smoking, COPD, CAD, Cancer, CVA, ARF, Chemo, Hep., AIDS, mental health diagnosis, sleep apnea, morb id obesity)? @ -[Underlying dementia, hypertension, diabetes, history of atrial fibrillation Was patient admitted / discharged? Hospital course, mention meds given and route, prescriptions, significant lab abnormalities, going to OR and other pertinent info. @ -[Patient is an 83-year-old woman here to have evaluation for generalized weakness. The patient states that the symptoms have resolved and she feels at her baseline. The evaluation reveals only some very mild leukocytosis but there is no focal infection found. The patient otherwise well and would like to go home. Discussed appropriate further care and follow-up as well as return parameters. Undiagnosed new problem with uncertain prognosis? @ -[No] Drug Therapy requiring intensive monitoring for toxicity (Heparin, Nitro, Insuli n, Cardizem)? @ -[No] Were any procedures done? @ -[No] Diagnosis/symptom? @ -[Generalized weakness, resolved Chronic dementia Acute, or Chronic, or Acute on Chronic? @ -[Acute Uncomplicated (without systemic symptoms) or Complicated (systemic symptoms)? @ -[Uncomplicated Side effects of treatment? @ -[No] Exacerbation, Progression, or Severe Exacerbation? @ -[No] Poses a threat to life or bodily function? How? (Chest pain, USA, AL, pneumonia, PE, COPD, DKA, ARF, appy, cholecystitis, CVA, Diverticulitis, Homicidal, Suicidal, threat to staff... and all critical care pts) @ -[No] - Lab Data Result diagrams: 02/25/24 17:27 02/25/24 17: Lab Results 02/25/24 02/25/24 02/25/24 Range/Units 17: 17: 17: WBC 11.2 H (3.8-10.6) k/uL RBC 3.99 (3.80-5.40) m/uL Hgb 11.6 (11.4-16.0) gm/dL Hct 35.6 (34.0-46.0) % MCV 89.1 (80.0-100.0) fL MCH 29.2 (25.0-35.0) pg MCHC 32.8 (31.0-37.0) g/dL RDW 14.3 (11.5-15.5) % Plt Count 190 (150-450) k/uL MPV 9.0 Neutrophils % 82 % Lymphocytes % 11 % Monocytes % 5 % Eosinophils % 1 % Basophils % 0 % Neutrophils # 9.1 H (1.3-7.7) k/uL Lymphocytes # 1.2 (1.0-4.8) k/uL Monocytes # 0.6 (0-1.0) k/uL Eosinophils # 0.1 (0-0.7) k/uL Basophils # 0.0 (0-0.2) k/uL PT 10.9 (10.0-12.5) sec INR 1.0 (<1.2) APTT 22.9 (22.0-30.0) sec Sodium 139 (137-145) mmol/L Potassium 3.8 (3.5-5.1) mmol/L Chloride 110 H (98-107) mmol/L Carbon Dioxide 25 (22-30) mmol/L Anion Gap 4 mmol/L BUN 13 (7-17) mg/dL Creatinine 0.80 (0.52-1.04) mg/dL Est GFR (CKD-EPI)AfAm 79 (>60 ml/min/1.73 sqM) Est GFR (CKD-EPI)NonAf 69 (>60 ml/min/1.73 sqM) Glucose 154 H (74-99) mg/dL Plasma Lactic Acid [place] (0.7-2.0) mmol/L Calcium 8.1 L (8.4-10.2) mg/dL Magnesium 1.8 (1.6-2.3) mg/dL Total Bilirubin 0.5 (0.2-1.3) mg/dL AST 19 (14-36) U/L ALT 14 (4-34) U/L Alkaline Phosphatase 73 (38-126) U/L Troponin I (0.000-0.034) ng/mL Total Protein 5.7 L (6.3-8.2) g/dL Albumin 3.2 L (3.5-5.0) g/dL TSH 2.170 (0.465-4.680) mIU/L Urine Color Urine Appearance (Clear) Urine pH (5.0-8.0) Ur Specific [place] (1.001-1.035) Urine Protein (Negative) Urine Glucose (UA) (Negative) Urine Ketones (Negative) Urine Blood (Negative) Urine Nitrite (Negative) Urine Bilirubin (Negative) Urine Urobilinogen (<2.0) mg/dL Ur Leukocyte Esterase (Negative) Urine RBC (0-5) /hpf Urine WBC (0-5) /hpf Ur Squamous Epith Cells (0-4) /hpf 02/25/24 02/25/24 02/25/24 Range/Units 17:27 17:27 22:30 WBC (3.8-10.6) k/uL RBC (3.80-5.40) m/uL Hgb (11.4-16.0) gm/dL Hct (34.0-46.0) % MCV (80.0-100.0) fL MCH (25.0-35.0) pg MCHC (31.0-37.0) g/dL RDW (11.5-15.5) % Plt Count (150-450) k/uL MPV Neutrophils % % Lymphocytes % % Monocytes % % Eosinophils % % Basophils % % Neutrophils # (1.3-7.7) k/uL Lymphocytes # (1.0-4.8) k/uL Monocytes # (0-1.0) k/uL Eosinophils # (0-0.7) k/uL Basophils # (0-0.2) k/uL PT (10.0-12.5) sec INR (<1.2) APTT (22.0-30.0) sec Sodium (137-145) mmol/L Potassium (3.5-5.1) mmol/L Chloride (98-107) mmol/L Carbon Dioxide (22-30) mmol/L Anion Gap mmol/L BUN (7-17) mg/dL Creatinine (0.52-1.04) mg/dL Est GFR (CKD-EPI)AfAm (>60 ml/min/1.73 sqM) Est GFR (CKD-EPI)NonAf (>60 ml/min/1.73 sqM) Glucose (74-99) mg/dL Plasma Lactic Acid [place] 1.2 (0.7-2.0) mmol/L Calcium (8.4-10.2) mg/dL Magnesium (1.6-2.3) mg/dL Total Bilirubin (0.2-1.3) mg/dL AST (14-36) U/L ALT (4-34) U/L Alkaline Phosphatase (38-126) U/L Troponin I <0.012 (0.000-0.034) ng/mL Total Protein (6.3-8.2) g/dL Albumin (3.5-5.0) g/dL TSH (0.465-4.680) mIU/L Urine Color Colorless Urine Appearance Clear (Clear) Urine pH 5.5 (5.0-8.0) Ur Specific [place] 1.015 (1.001-1.035) Urine Protein Negative (Negative) Urine Glucose (UA) Negative (Negative) Urine Ketones Negative (Negative) Urine Blood Negative (Negative) Urine Nitrite Negative (Negative) Urine Bilirubin Negative (Negative) Urine Urobilinogen <2.0 (<2.0) mg/dL Ur Leukocyte Esterase Moderate H (Negative) Urine RBC <1 (0-5) /hpf Urine WBC 3 (0-5) /hpf Ur Squamous Epith Cells 1 (0-4) /hpf Disposition Clinical Impression: Weakness Disposition: HOME SELF-CARE Condition: Good Instructions (If sedation given, give patient instructions): Weakness (ED) Is patient prescribed a controlled substance at d/c from ED?: No Referrals: None,Stated [Primary Care Provider] - 1-2 days
--- NOTE | 2024-02-25 17:21 | XR ---
EXAMINATION TYPE: XR chest 1V portable DATE OF EXAM: 02/25/2024 Comparison: 01/07/2024 Clinical History: 83-year-old female weakness Findings: Heart normal size. Atherosclerotic arch calcifications. Mild interstitial prominence is unchanged. No consolidation or pleural effusion. Impression: Chronic changes without acute cardiopulmonary process.
[2024-02-25 17:59] LABS: ALT 14 U/L (4-34); AST 19 U/L (14-36); African American GFR (CKD) 79 (>60 ml/min/1.73 sqM); Albumin 3.2 g/dL (3.5-5.0); Alkaline Phosphatase 73 U/L (38-126); Anion Gap 4 mmol/L; Blood Urea Nitrogen 13 mg/dL (7-17); Calcium 8.1 mg/dL (8.4-10.2); Carbon Dioxide 25 mmol/L (22-30); Chloride 110 mmol/L (98-107); Glucose 154 mg/dL (74-99); Magnesium 1.8 mg/dL (1.6-2.3); Non-African American GFR(CKD) 69 (>60 ml/min/1.73 sqM); Potassium 3.8 mmol/L (3.5-5.1); Sodium 139 mmol/L (137-145); Total Bilirubin 0.5 mg/dL (0.2-1.3); Total Protein 5.7 g/dL (6.3-8.2)
[2024-02-25 18:13] LABS: Basophils % (A) 0 %; Eosinophils # (A) 0.1 k/uL (0-0.7); Eosinophils % (A) 1 %; HCT 35.6 % (34.0-46.0); HGB 11.6 gm/dL (11.4-16.0); Lymphocytes # (A) 1.2 k/uL (1.0-4.8); Lymphocytes % (A) 11 %; MCH 29.2 pg (25.0-35.0); MCHC 32.8 g/dL (31.0-37.0); MCV 89.1 fL (80.0-100.0); Monocytes # (A) 0.6 k/uL (0-1.0); Monocytes % (A) 5 %; Neutrophils # (A) 9.1 k/uL (1.3-7.7); Neutrophils % (A) 82 %; Platelet Count 190 k/uL (150-450); RBC 3.99 m/uL (3.80-5.40); RDW 14.3 % (11.5-15.5); WBC 11.2 k/uL (3.8-10.6)
[2024-02-25 18:20] LABS: Partial Thromboplastin Time 22.9 sec (22.0-30.0); Prothrombin Time 10.9 sec (10.0-12.5)
[2024-02-25] MEDS: SODIUM CHLORIDE 0.9% 500 ML 500 ML IV STA (21:47)
[2024-02-25 22:52] LABS: Appearance,Urine Clear (Clear); Bilirubin,Urine Negative (Negative); Blood,Urine Negative (Negative); Color,Urine Colorless; Glucose,Urine (UA) Negative (Negative); Ketones,Urine Negative (Negative); Leukocyte Esterase,Urine Moderate (Negative); Nitrite,Urine Negative (Negative); PH, Urine 5.5 (5.0-8.0); Protein,Urine Negative (Negative); RBC,Urine <1 /hpf (0-5); Specific Gravity,Urine 1.015 (1.001-1.035); Squamous Epithelial Cell,Urine 1 /hpf (0-4); Urobilinogen,Urine <2.0 mg/dL (<2.0); WBC,Urine 3 /hpf (0-5)
[2024-02-26 01:58] VITALS: BP 148/75; PULSE 83; RESP 19
== END 2024-02-26 02:09 | disposition home or self-care (01) ==
LOC: EEVIPCON 15:48 → EC 15:48
DX: R53.1 Weakness (principal); Z87.891 Personal history of nicotine dependence; Z88.0 Allergy status to penicillin; Z88.1 Allergy status to other antibiotic agents
CPT/HCPCS: 36415; 71045; 80053; 81001; 83605; 83735; 84443; 84484; 85025; 85610; 85730; 93005; 99285

== ENCOUNTER 2024-03-26 20:56 | Emergency (ER) | payer MEDICARE ==
[2024-03-26 21:05] VITALS: RESP 18; TEMP 97.7
[2024-03-26] MEDS: PANTOPRAZOLE 40 MG/10 ML VIAL IVP STA (22:02)
[2024-03-26] MEDS: ACETAMINOPHEN TAB 500 MG TAB PO STA (22:03)
[2024-03-26] MEDS: SODIUM CHLORIDE 0.9% 1,000 ML IV STA ×2 (22:06→23:06)
[2024-03-26 22:38] LABS: Basophils # (A) 0.1 k/uL (0-0.2); Basophils % (A) 1 %; Eosinophils # (A) 0.1 k/uL (0-0.7); Eosinophils % (A) 1 %; HCT 37.4 % (34.0-46.0); HGB 12.2 gm/dL (11.4-16.0); Lymphocytes # (A) 1.6 k/uL (1.0-4.8); Lymphocytes % (A) 22 %; MCH 29.2 pg (25.0-35.0); MCHC 32.5 g/dL (31.0-37.0); MCV 89.8 fL (80.0-100.0); Mean Platelet Volume 9.2; Monocytes # (A) 0.5 k/uL (0-1.0); Monocytes % (A) 6 %; Neutrophils % (A) 69 %; Platelet Count 196 k/uL (150-450); RBC 4.16 m/uL (3.80-5.40); RDW 14.2 % (11.5-15.5); WBC 7.2 k/uL (3.8-10.6)
[2024-03-26 22:40] LABS: Prothrombin Time 10.5 sec (10.0-12.5)
[2024-03-26 22:41] LABS: Partial Thromboplastin Time 22.9 sec (22.0-30.0)
[2024-03-26 22:42] LABS: ALT 12 U/L (4-34); AST 28 U/L (14-36); African American GFR (CKD) 87 (>60 ml/min/1.73 sqM); Albumin 3.6 g/dL (3.5-5.0); Alkaline Phosphatase 73 U/L (38-126); Amylase 65 U/L (30-110); Anion Gap 9 mmol/L; Blood Urea Nitrogen 12 mg/dL (7-17); Calcium 8.2 mg/dL (8.4-10.2); Carbon Dioxide 20 mmol/L (22-30); Chloride 106 mmol/L (98-107); Glucose 245 mg/dL (74-99); Lipase 62 U/L (23-300); Non-African American GFR(CKD) 75 (>60 ml/min/1.73 sqM); Sodium 135 mmol/L (137-145); Total Bilirubin 1.1 mg/dL (0.2-1.3)
--- NOTE | 2024-03-26 23:33 | ED ---
General Adult HPI - General Chief complaint: Weakness Stated complaint: Weakness Time Seen by Provider: 03/26/24 21:05 Source: patient, RN notes reviewed, old records reviewed Mode of arrival: EMS Limitations: no limitations - History of Present Illness Initial comments: Patient is an 84-year-old female who presents emergency department after a near syncopal episode during a bowel movement earlier. Spray like she was about to pass out. States she felt lightheaded after. Called EMS and went to be evaluated. States she has been having some lower abdominal discomfort. Does have a history of UTIs. Currently states her lightheadedness has resolved. Patient does have a past medical history remarkable for A-fib, diabetes, hypertension. Also has some mild memory impairment. Presents for further evaluation at this time. Endorses lower abdominal pain at this time which is mild and crampy sensation but no other acute complaints. Denies chest pain or shortness of breath. Denies any urinary complaints. - Related Data Home Medications Medication Instructions Recorded Confirmed Acetaminophen [Tylenol 8 Hour] 1,300 mg PO HS 08/25/23 02/25/24 Acetaminophen [Tylenol Arthritis] 650 mg PO DAILY 08/25/23 02/25/24 Apixaban [Eliquis] 5 mg PO BID 08/25/23 02/25/24 Atorvastatin [Lipitor] 40 mg PO HS 08/25/23 02/25/24 Calcium Carbonate [Calcium] 600 mg PO HS 08/25/23 02/25/24 Diclofenac Sodium Gel [Voltaren 1% 1 applic TOPICAL QID PRN 08/25/23 02/25/24 Gel] Dulaglutide [Trulicity] 1.5 mg SQ WE 08/25/23 02/25/24 Escitalopram [Lexapro] 20 mg PO DAILY 08/25/23 02/25/24 Ferrous Sulfate [Iron (65 MG 325 mg PO HS 08/25/23 02/25/24 Elemental)] Ipratropium-Albuterol Nebulize 3 ml INHALATION RT-QID PRN 08/25/23 02/25/24 [Duoneb 0.5 mg-3 mg/3 ml Soln] Levothyroxine Sodium [Synthroid] 12.5 mcg PO AC-BRKFST 08/25/23 02/25/24 Loperamide HCl [Imodium A-D] 2 mg PO QID PRN 08/25/23 02/25/24 Loratadine 10 mg PO HS 08/25/23 02/25/24 Montelukast [Singulair] 10 mg PO HS 08/25/23 02/25/24 Vivian-3/Dha/Epa/Fish Oil [Fish Oil 1 cap PO HS 08/25/23 02/25/24 1,000 mg Softgel] Potassium Gluconate 99 mg PO HS 08/25/23 02/25/24 Prevagen 1 tab PO BID 08/25/23 02/25/24 Super B Complex 1 tab PO HS 08/25/23 02/25/24 Tiotropium 2.5 Mcg/Puff [Spiriva 1 puff INHALATION RT-DAILY PRN 08/25/23 02/25/24 Respimat 2.5 Mcg] Insulin Glargine,Hum.rec.anlog 30 units SQ HS 01/08/24 02/25/24 [Lantus Solostar Pen] Omeprazole 20 mg PO HS 01/08/24 02/25/24 Previous Rx's Medication Instructions Recorded Budesonide-Formot 160-4.5 Mcg 2 puff INHALATION RT-BID #1 each 10/28/23 [Symbicort 160-4.5 Mcg Inhaler] Losartan [Cozaar] 50 mg PO DAILY #30 tab 10/28/23 Acetaminophen Tab [Tylenol] 650 mg PO Q6HR PRN tab 11/04/23 Ipratropium-Albuterol Nebulize 3 ml INHALATION RT-QID #100 each 11/04/23 [Duoneb 0.5 mg-3 mg/3 ml Soln] Diltiazem Cd [Cardizem CD] 180 mg PO DAILY cap 12/09/23 Thiamine [Vitamin B-1] 100 mg PO DAILY tab 12/09/23 amLODIPine [Norvasc] 5 mg PO DAILY tab 12/09/23 Nitrofurantoin Monohyd/M-Cryst 100 mg PO Q12HR 7 Days #14 cap 03/27/24 [Macrobid] Allergies Allergy/AdvReac Type Severity Reaction Status Date / Time Penicillins Allergy Rash/Hives Verified 03/26/24 21:03 cefepime AdvReac Confusion Verified 03/26/24 21:03 Review of Systems ROS Statement: Those systems with pertinent positive or pertinent negative responses have been documented in the HPI. Review of Systems: CONST: Denies fever EYES: Denies blurry vision ENT: Denies nasal congestion C/V: Denies Chest pain RESP: Denies shortness of breath GI: Endorses abdominal pain : Denies dysuria SKIN: Denies rash. MSK: Denies joint pain. NEURO: Denies headache ROS Other: All systems not noted in ROS Statement are negative. Past Medical History Past Medical History: Atrial Fibrillation, Diabetes Mellitus, Hypertension, Memory Impairment Additional Past Medical History / Comment(s): patient poor historian History of Any Multi-Drug Resistant Organisms: VRE Date of last positivie culture/infection: 11/01/23 MDRO Source:: Urine Past Surgical History: Appendectomy Additional Past Surgical History / Comment(s): patient poor historian Past Anesthesia/Blood Transfusion Reactions: No Reported Reaction Past Psychological History: No Psychological Hx Reported Smoking Status: Former smoker Past Alcohol Use History: None Reported Past Drug Use History: None Reported - Past Family History Father History Unknown: Yes General Exam - General Exam Comments Initial Comments: General: Appears in no acute distress. HEAD: Normal with no signs of head trauma. EYES: PERRLA, EOMI, conjunctiva normal, no discharge. ENT: Hearing grossly intact, normal oropharynx. RESPIRATORY: Clear breath sounds bilaterally. No wheezes, rales, or rhonchi. C/V: Regular rate and rhythm. S1 and S2 auscultated, peripheral pulses 2+ and intact throughout ABD: Abdomen is soft, nondistended. Minimally tender to palpation in the bilateral lower quadrants. No guarding. No rebound tenderness. No peritoneal signs. EXT: Normal range of motion, no obvious deformity SKIN: No rashes or lesions observed on exposed skin. NEURO: Alert and oriented x 4. Cranial nerves II-XII intact. No focal sensory or strength deficits. GCS of 15. Limitations: no limitations Course Vital Signs 03/26/24 03/26/24 21:00 22:51 Temperature 97.7 F Pulse Rate 80 78 Respiratory 18 18 Rate Blood Pressure 93/62 130/83 O2 Sat by Pulse 94 L 97 Oximetry Medical Decision Making - Medical Decision Making Was pt. sent in by a medical professional or institution (, PA, ORTHOPEDIC CAST SPECIALIST, urgent care, hospital, or longterm...) When possible be specific @ -No Did you speak to anyone other than the patient for history (EMS, parent, family, police, friend...)? What history was obtained from this source @ -No Did you review nursing and triage notes (agree or disagree)? Why? @ -I reviewed and agree with nursing and triage notes Were old charts reviewed (outside hosp., previous admission, EMS record, old EKG, old radiological studies, urgent care reports/EKG's, longterm records)? Report findings @ -No old charts were reviewed Differential Diagnosis (chest pain, altered mental status, abdominal pain women, abdominal pain men, vaginal bleeding, weakness, fever, dyspnea, syncope, headache, dizziness, GI bleed, back pain, seizure, CVA, palpatations, mental health, musculoskeletal)? @ -Differential Abdominal Pain Women: Appendicitis, Cholecystitis, diverticulosis, ischemic bowel, pancreatitis, hepatitis, UTI, gastroenteritis, AAA, incarcerated hernia, bowel obstruction, constipation, inflammatory bowel, hepatitis, peptic ulcer disease, splenic infarction, perforated viscus, vulvitis, ovarian torsion, PID, kidney stone, placenta abruption, this is not meant to be an all-inclusive list EKG interpreted by me (3pts min.). @ -As above X-rays interpreted by me (1pt min.). @ -None done CT interpreted by me (1pt min.). @ -CT abdomen pelvis reveals no obvious acute intra-abdominal process. U/S interpreted by me (1pt. min.). @ -None done What testing was considered but not performed or refused? (CT, X-rays, U/S, labs)? Why? @ -None What meds were considered but not given or refused? Why? @ -None Did you discuss the management of the patient with other professionals (professionals i.e. , PA, ORTHOPEDIC CAST SPECIALIST, lab, RT, psych nurse, director social, coordinator of placement, teacher, fire information officer, dependency case manager)? Give summary @ -No Was smoking cessation discussed for >3mins.? @ -No Was critical care preformed (if so, how long)? @ -No Were there social determinants of health that impacted care today? How? (Homelessness, low income, unemployed, alcoholism, drug addiction, transportation, low edu. Level, literacy, decrease access to med. care, detention, rehab)? @ -No Was there de-escalation of care discussed even if they declined (Discuss DNR or withdrawal of care, Hospice)? DNR status @ -No What co-morbidities impacted this encounter? (DM, HTN, Smoking, COPD, CAD, Cancer, CVA, ARF, Chemo, Hep., AIDS, mental health diagnosis, sleep apnea, morbid obesity)? @ -None Was patient admitted / discharged? Hospital course, mention meds given and route, prescriptions, significant lab abnormalities, going to OR and other pe rtinent info. @ -Patient presents with what appears to be a near syncopal episode or vasovagal episode at home. Is complaining of some abdominal pain as well. She has slightly low blood pressure she will be treated with IV fluids. She will be given Tylenol for pain as well as IV Protonix. Will obtain abdominal workup. Patient in agreement this plan. Vital signs otherwise within acceptable limits. EKG shows no signs of acute ischemia. Laboratory studies remarkable for slightly lactic acidosis of 2.5. Remainder the labs unremarkable. CT abdomen pelvis unremarkable. Urinalysis returned positive for UTI. Blood pressure improved after fluid boluses. She remains asymptomatic and resting comfortably at this time. Discussed results with her. She likely had a vasovagal episode at home while attempting to have a bowel movement. She expressed understanding. She will be started on Macrobid and urine culture sent. Patient was in agreement this plan. Strict return precautions discussed. She will be discharged home at this time. Mended taking stool softeners or [id number] medication such as MiraLAX on a regular basis to avoid constipation and avoid having to strain too hard. She was in agreement this plan. I will provide the patient with a prescription for Macrobid. I instructed the patient to follow up with their PCP in the next 1-3 days.. I explained that the patient should return to the emergency department if they experience any worsening symptoms. Strict return precautions were discussed with the patient. The patient expressed understanding of these instructions. I answered all questions that the patient had. The patient was discharged home in good co ndition with their prescriptions and follow up information. Undiagnosed new problem with uncertain prognosis? @ -No Drug Therapy requiring intensive monitoring for toxicity (Heparin, Nitro, Insulin, Cardizem)? @ -No Were any procedures done? @ -No Diagnosis/symptom? @ -Vasovagal episode, UTI Acute, or Chronic, or Acute on Chronic? @ -Acute Uncomplicated (without systemic symptoms) or Complicated (systemic symptoms)? @ -Complicated Side effects of treatment? @ -None Exacerbation, Progression, or Severe Exacerbation] @ -No Poses a threat to life or bodily function? @ -Unlikely - Lab Data Result diagrams: 03/26/24 21:46 03/26/24 21:46 Lab Results 03/26/24 03/26/24 03/26/24 Range/Units 21:46 21:46 21:46 WBC 7.2 (3.8-10.6) k/uL RBC 4.16 (3.80-5.40) m/uL Hgb 12.2 (11.4-16.0) gm/dL Hct 37.4 (34.0-46.0) % MCV 89.8 (80.0-100.0) fL MCH 29.2 (25.0-35.0) pg MCHC 32.5 (31.0-37.0) g/dL RDW 14.2 (11.5-15.5) % Plt Count 196 (150-450) k/uL MPV 9.2 Neutrophils % 69 % Lymphocytes % 22 % Monocytes % 6 % Eosinophils % 1 % Basophils % 1 % Neutrophils # 5.0 (1.3-7.7) k/uL Lymphocytes # 1.6 (1.0-4.8) k/uL Monocytes # 0.5 (0-1.0) k/uL Eosinophils # 0.1 (0-0.7) k/uL Basophils # 0.1 (0-0.2) k/uL PT 10.5 (10.0-12.5) sec INR 1.0 (<1.2) APTT 22.9 (22.0-30.0) sec Sodium 135 L (137-145) mmol/L Potassium 4.0 (3.5-5.1) mmol/L Chloride 106 (98-107) mmol/L Carbon Dioxide 20 L (22-30) mmol/L Anion Gap 9 mmol/L BUN 12 (7-17) mg/dL Creatinine 0.74 (0.52-1.04) mg/dL Est GFR (CKD-EPI)AfAm 87 (>60 ml/min/1.73 sqM) Est GFR (CKD-EPI)NonAf 75 (>60 ml/min/1.73 sqM) Glucose 245 H (74-99) mg/dL Lactic Ac Sepsis Rflx Plasma Lactic Acid Victor Hugo (0.7-2.0) mmol/L Calcium 8.2 L (8.4-10.2) mg/dL Total Bilirubin 1.1 (0.2-1.3) mg/dL AST 28 (14-36) U/L ALT 12 (4-34) U/L Alkaline Phosphatase 73 (38-126) U/L Total Protein 6.0 L (6.3-8.2) g/dL Albumin 3.6 (3.5-5.0) g/dL Amylase 65 (30-110) U/L Lipase 62 (23-300) U/L Urine Color Urine Appearance (Clear) Urine pH (5.0-8.0) Ur Specific [place] (1.001-1.035) Urine Protein (Negative) Urine Glucose (UA) (Negative) Urine Ketones (Negative) Urine Blood (Negative) Urine Nitrite (Negative) Urine Bilirubin (Negative) Urine Urobilinogen (<2.0) mg/dL Ur Leukocyte Esterase (Negative) Urine RBC (0-5) /hpf Urine WBC (0-5) /hpf Urine WBC Clumps (None) /hpf Ur Squamous Epith Cells (0-4) /hpf Urine Bacteria (None) /hpf 03/26/24 03/26/24 03/27/24 Range/Units 21:46 22:54 00:15 WBC (3.8-10.6) k/uL RBC (3.80-5.40) m/uL Hgb (11.4-16.0) gm/dL Hct (34.0-46.0) % MCV (80.0-100.0) fL MCH (25.0-35.0) pg MCHC (31.0-37.0) g/dL RDW (11.5-15.5) % Plt Count (150-450) k/uL MPV Neutrophils % % Lymphocytes % % Monocytes % % Eosinophils % % Basophils % % Neutrophils # (1.3-7.7) k/uL Lymphocytes # (1.0-4.8) k/uL Monocytes # (0-1.0) k/uL Eosinophils # (0-0.7) k/uL Basophils # (0-0.2) k/uL PT (10.0-12.5) sec INR (<1.2) APTT (22.0-30.0) sec Sodium (137-145) mmol/L Potassium (3.5-5.1) mmol/L Chloride (98-107) mmol/L Carbon Dioxide (22-30) mmol/L Anion Gap mmol/L BUN (7-17) mg/dL Creatinine (0.52-1.04) mg/dL Est GFR (CKD-EPI)AfAm (>60 ml/min/1.73 sqM) Est GFR (CKD-EPI)NonAf (>60 ml/min/1.73 sqM) Glucose (74-99) mg/dL Lactic Ac Sepsis Rflx Y Plasma Lactic Acid Victor Hugo 2.5 H* (0.7-2.0) mmol/L Calcium (8.4-10.2) mg/dL Total Bilirubin (0.2-1.3) mg/dL AST (14-36) U/L ALT (4-34) U/L Alkaline Phosphatase (38-126) U/L Total Protein (6.3-8.2) g/dL Albumin (3.5-5.0) g/dL Amylase (30-110) U/L Lipase (23-300) U/L Urine Color Colorless Urine Appearance Clear (Clear) Urine pH 6.0 (5.0-8.0) Ur Specific [place] 1.026 (1.001-1.035) Urine Protein Negative (Negative) Urine Glucose (UA) Negative (Negative) Urine Ketones Negative (Negative) Urine Blood Negative (Negative) Urine Nitrite Negative (Negative) Urine Bilirubin Negative (Negative) Urine Urobilinogen <2.0 (<2.0) mg/dL Ur Leukocyte Esterase Large H (Negative) Urine RBC 2 (0-5) /hpf Urine WBC 37 H (0-5) /hpf Urine WBC Clumps Rare H (None) /hpf Ur Squamous Epith Cells 3 (0-4) /hpf Urine Bacteria Rare H (None) /hpf - EKG Data -: EKG Interpreted by Me EKG Comments: 12-lead Electrocardiogram Interpretation Note EKG was reviewed and interpreted by myself. 12-lead ECG performed at 2210 is interpreted by me as revealing normal sinus rhythm at a rate of 81 beats per minute. [place] is normal. Parables 189 ms, QRS durations 81 ms, QTc is 427 ms.. There were no ST or T wave abnormalities to suggest myocardial ischemia or injury. R wave progression across the precordium was satisfactory. By my interpretation this EKG is non-diagnostic for acute ischemia. Disposition Clinical Impression: UTI (urinary tract infection), Vaso vagal episode Disposition: HOME SELF-CARE Condition: Good Instructions (If sedation given, give patient instructions): Urinary Tract I nfection in Women (ED) Prescriptions: Nitrofurantoin Monohyd/M-Cryst [Macrobid] 100 mg PO Q12HR 7 Days #14 cap Is patient prescribed a controlled substance at d/c from ED?: No Referrals: None,Stated [Primary Care Provider] - 1-2 days Forms: Area PCPs Time of Disposition: 01:05
--- NOTE | 2024-03-26 23:35 | CT ---
EXAMINATION TYPE: CT abdomen pelvis w con DATE OF EXAM: 03/26/2024 HISTORY: pt brought in by ems for c/o weakness and feeling clammy while having a bowel movement. once in ambulance pt felt better but wanted to get checked out. CT DLP: 1540mGycm Automated Exposure Control for Dose Reduction was Utilized. CONTRAST: CT scan of the abdomen and pelvis is performed with IV Contrast, patient injected with 100 mL of Isov ue 370. COMPARISON: Prior CT October 23, 2023 FINDINGS: LUNG BASES: Stable 2.5 cm soft tissue density behind left nipple axis image 6 is nonspecific. Conside r further workup if felt clinically warranted. Coronary artery calcifications are redemonstrated. LIVER/GB: Gallbladder not seen and presumed surgically absent similar to prior. PANCREAS: Moderate diffuse atrophy redemonstrated. SPLEEN: Punctate cavitations throughout the spleen consistent with products of old granulomatous dise ase are redemonstrated. ADRENALS: No significant abnormality is seen. KIDNEYS: Symmetric cortical medullary uptake and excretion without hydronephrosis. BOWEL: Surgical change epigastric region just below diaphragm is redemonstrated. Small hiatal hernia remains present. Diverticula in the left and sigmoid colon without CT evidence for acute diverticuli tis. No abnormal small or large bowel dilatation. No significant colonic fecal prominence. UTERUS/ADNEXA: Retroverted uterus. LYMPH NODES: No greater than 1cm abdominal or pelvic lymph nodes are appreciated. OSSEOUS STRUCTURES: Moderate narrowing of both hip joints. Grade 1 anterolisthesis L4 on L5. Multilev el disc space narrowing in the lumbar spine. Multilevel facet arthropathy in the lower lumbar spine. OTHER: Moderate calcified plaque of the aorta extends into branch vessels. IMPRESSION: No bowel obstruction. No significant new or acute finding identified on current study.
[2024-03-27 00:58] LABS: Appearance,Urine Clear (Clear); Bacteria,Urine Rare /hpf; Bilirubin,Urine Negative (Negative); Blood,Urine Negative (Negative); Color,Urine Colorless; Glucose,Urine (UA) Negative (Negative); Ketones,Urine Negative (Negative); Leukocyte Esterase,Urine Large (Negative); Nitrite,Urine Negative (Negative); Protein,Urine Negative (Negative); RBC,Urine 2 /hpf (0-5); Specific Gravity,Urine 1.026 (1.001-1.035); Squamous Epithelial Cell,Urine 3 /hpf (0-4); Urobilinogen,Urine <2.0 mg/dL (<2.0); WBC,Urine 37 /hpf (0-5)
[2024-03-27] MEDS: NITROFURANTOIN MONOHYD/M-CRYST 100 MG CAP PO STA (02:07)
[2024-03-27 02:43] VITALS: BP 126/78; PULSE 87
== END 2024-03-27 02:29 | disposition home or self-care (01) ==
LOC: EC 20:56
DX: N39.0 Urinary tract infection, site not specified (principal); R55 Syncope and collapse; Z87.891 Personal history of nicotine dependence; Z88.0 Allergy status to penicillin; Z88.8 Allergy status to other drugs, medicaments and biological substances
CPT/HCPCS: 36415; 93005; 80053; 82150; 83605; 83690; 85025; 85610; 85730; 81001; 74177; 99285; 96374; 96361 ×2; C9113; Q9967

== ENCOUNTER 2024-05-10 16:04 | Inpatient (IN) | payer MEDICARE ==
[2024-05-10 16:19] LABS: Glucose,Whole Blood 259 mg/dL (70-110)
--- NOTE | 2024-05-10 16:33 | ED ---
General Adult HPI - General Chief complaint: Altered Mental Status Stated complaint: AMS/Weakness Time Seen by Provider: 05/10/24 16:14 Source: EMS Mode of arrival: EMS Limitations: altered mental status - History of Present Illness Initial comments: Dictation was produced using [employer] dictation software. please excuse any grammatical, word or spelling errors. Chief Complaint: 84-year-old female presents emergency department after syncopal episode and altered mental status History of Present Illness: Patient is a 84-year-old female multiple comorb idities including A-fib diabetes. Patient has been acting strangely at home. History of present illness obtained from EMS states that patient had syncopized on the toilet. Upon EMS arrival she was found to be cool pale diaphoretic. Patient does not recall the event. She is altered and had recently completed a course of antibiotics for UTI. Denies complaints at this time. The ROS documented in this emergency department record has been reviewed and confirmed by me. Those systems with pertinent positive or negative responses have been documented in the HPI. All other systems are other negative and/or noncontributory. - Related Data Home Medications Medication Instructions Recorded Confirmed Acetaminophen [Tylenol 8 Hour] 1,300 mg PO BID 08/25/23 05/10/24 Apixaban [Eliquis] 5 mg PO BID 08/25/23 05/10/24 Atorvastatin [Lipitor] 40 mg PO HS 08/25/23 05/10/24 Diclofenac Sodium Gel [Voltaren 1% 1 applic TOPICAL QID PRN 08/25/23 05/10/24 Gel] Escitalopram [Lexapro] 20 mg PO DAILY 08/25/23 05/10/24 Ferrous Sulfate [Iron (65 MG 325 mg PO DAILY 08/25/23 05/10/24 Elemental)] Ipratropium-Albuterol Nebulize 3 ml INHALATION RT-QID PRN 08/25/23 05/10/24 [Duoneb 0.5 mg-3 mg/3 ml Soln] Levothyroxine Sodium [Synthroid] 12.5 mcg PO AC-BRKFST 08/25/23 05/10/24 Loperamide HCl [Imodium A-D] 2 mg PO QID PRN 08/25/23 05/10/24 Loratadine 10 mg PO HS 08/25/23 05/10/24 Montelukast [Singulair] 10 mg PO HS 08/25/23 05/10/24 Insulin Glargine,Hum.rec.anlog 37 units SQ HS 01/08/24 05/10/24 [Lantus Solostar Pen] Omeprazole 20 mg PO HS 01/08/24 05/10/24 Lacosamide [Vimpat] 100 mg PO HS 05/10/24 05/10/24 Spiriva Respimat 1.25mcg/Actuation 1 puff INHALATION RT-DAILY PRN 05/10/24 05/10/24 Mist Previous Rx's Medication Instructions Recorded Budesonide-Formot 160-4.5 Mcg 2 puff INHALATION RT-BID #1 each 10/28/23 [Symbicort 160-4.5 Mcg Inhaler] Losartan [Cozaar] 50 mg PO DAILY #30 tab 10/28/23 Acetaminophen Tab [Tylenol] 650 mg PO Q6HR PRN tab 11/04/23 Ipratropium-Albuterol Nebulize 3 ml INHALATION RT-QID #100 each 11/04/23 [Duoneb 0.5 mg-3 mg/3 ml Soln] Diltiazem Cd [Cardizem CD] 180 mg PO DAILY cap 12/09/23 Thiamine [Vitamin B-1] 100 mg PO DAILY tab 12/09/23 amLODIPine [Norvasc] 5 mg PO DAILY tab 12/09/23 Allergies Allergy/AdvReac Type Severity Reaction Status Date / Time Penicillins Allergy Rash/Hives Verified 05/10/24 17:41 cefepime AdvReac Confusion Verified 05/10/24 17:41 Review of Systems ROS Statement: Those systems with pertinent positive or pertinent negative responses have been documented in the HPI. ROS Other: All systems not noted in ROS Statement are negative. Past Medical History Past Medical History: Atrial Fibrillation, Diabetes Mellitus, Hypertension, Memory Impairment Additional Past Medical History / Comment(s): patient poor historian History of Any Multi-Drug Resistant Organisms: VRE Date of last positivie culture/infection: 11/01/23 MDRO Source:: Urine Past Surgical History: Appendectomy Additional Past Surgical History / Comment(s): patient poor historian Past Anesthesia/Blood Transfusion Reactions: No Reported Reaction Past Psychological History: No Psychological Hx Reported Smoking Status: Former smoker Past Alcohol Use History: None Reported Past Drug Use History: None Reported - Past Family History Father History Unknown: Yes General Exam - General Exam Comments Initial Comments: PHYSICAL EXAM: General Impression: Alert and oriented x3, not in acute distress HEENT: Normocephalic atraumatic, extra-ocular movements intact, pupils equal and reactive to light bilaterally, mucous membranes moist. Cardiovascular: Heart regular rate and rhythm Chest: Able to complete full sentences, no retractions, no tachypnea Abdomen: abdomen soft, non-tender, non-distended, no organomegaly Musculoskeletal: Pulses present and equal in all extremities, no peripheral edema Motor: no focal deficits noted Neurological: CN II-XII grossly intact, no focal motor or sensory deficits noted Skin: Intact with no visualized rashes Psych: Normal affect and mood Limitations: altered mental status Course Vital Signs 05/10/24 05/10/24 05/10/24 16:05 17:21 17:46 Temperature 98.0 F Pulse Rate 89 89 96 Respiratory 16 18 16 Rate Blood Pressure 104/62 113/67 123/107 O2 Sat by Pulse 95 96 95 Oximetry 05/10/24 18:35 Temperature Pulse Rate 101 H Respiratory 18 Rate Blood Pressure 113/60 O2 Sat by Pulse 94 L Oximetry EKG Findings - EKG Comments: EKG Findings:: My EKG interpretation: Ventricular rate 80, sinus rhythm, HI interval 172, cures 77, QTc 4 3. No HI prolongation, no QTC prolongation, no ST or T-wave changes noted. Overall, this EKG is unremarkable Medical Decision Making - Medical Decision Making Was pt. sent in by a medical professional or institution (, PA, IN HOUSE C[facility], urgent care, hospital, or long term...) When possible be specific @ -No Did you speak to anyone other than the patient for history (EMS, parent, family, police, friend...)? What history was obtained from this source @ -No Did you review nursing and triage notes (agree or disagree)? Why? @ -I reviewed and agree with nursing and triage notes Were old charts reviewed (outside hosp., previous admission, EMS record, old EKG, old radiological studies, urgent care reports/EKG's, long term records)? Report findings @ -No old charts were reviewed Differential Diagnosis (chest pain, altered mental status, abdominal pain women, abdominal pain men, vaginal bleeding, musculoskeletal, weakness, fever, dyspnea, syncope, headache, dizziness, GI bleed, back pain, seizure, CVA, palpatations, mental health)? @ -Differential Syncope: Valvular disease, hypertrophic cardiomyopathy, pulmonary embolism, tamponade, tachycardia, bradycardia, CA, hypovolemia, hemorrhage, dissection, anemia, intracranial hemorrhage, seizure, hypoglycemia, carbon monoxide poisoning, this is not meant to be an all-inclusive list. EKG interpreted by me (3pts min.). @ -See above X-rays interpreted by me (1pt min.). @ -None done CT interpreted by me (1pt min.). @ -CT brain shows no acute processes U/S interpreted by me (1pt. min.). @ -None done What testing was considered but not performed or refused? (CT, X-rays, U/S, labs)? Why? @ -None What meds were considered but not given or refused? Why? @ -None Was smoking cessation discussed for >3mins.? @ -No Were there social determinants of health that impacted care today? How? (Homelessness, low income, unemployed, alcoholism, drug addiction, transportation, low edu. Level, literacy, decrease access to med. care, fdc, rehab)? @ -No Was there de-escalation of care discussed even if they declined (Discuss DNR or withdrawal of care, Hospice)? DNR status @ -No What co-morbidities impacted this encounter? (DM, HTN, Smoking, COPD, CAD, Cancer, CVA, ARF, Chemo, Hep., AIDS, mental health diagnosis, sleep apnea, morbid obesity)? @ -afib, Diabetes, hypertension Was patient admitted / discharged? Hospital course, mention meds given and route, prescriptions, significant lab abnormalities, going to OR and other pertinent info. @ -84-year-old female presents to the emergency department for altered mental status and alleged syncopal episode. Vital signs upon arrival are within acceptable limits. EKG is unremarkable. Laboratory evaluation obtained. CBC negative. Metabolic panel shows lactic acidosis of 3.1. Hyperglycemia of 265. Urinalysis positive for UTI. Patient allergic to penicillin and cefepime. Patient given Levaquin. Given UTI with syncope patient will be admitted for medical monitoring. Did you discuss the management of the patient with other professionals (pr ofessionals i.e. , PA, IN [facility]SE [facility], lab, RT, psych nurse, social media marketing manager, human factors advisor lead, teacher, juvenile officer, oil field caser)? Give summary @ -No Was critical care preformed (if so, how long)? @ -No Undiagnosed new problem with uncertain prognosis? @ -No Drug Therapy requiring intensive monitoring for toxicity (Heparin, Nitro, Insulin, Cardizem)? @ -No Were any procedures done? @ -No Diagnosis/symptom? Acute, or Chronic, or Acute on Chronic? Uncomplicated (without systemic symptoms) or Complicated (systemic symptoms)? @ -UTI, syncope Side effects of treatment? @ -No Exacerbation, Progression, or Severe Exacerbation? @ -No Poses a threat to life or bodily function? How? (Chest pain, USA, CA, pneumonia, PE, COPD, DKA, ARF, appy, cholecystitis, CVA, Diverticulitis, Homicidal, Suicidal, threat to staff... and all critical care pts) @ -yes - Lab Data Result diagrams: 05/10/24 16:28 05/10/24 16:28 Lab Results 05/10/24 05/10/24 05/10/24 Range/Units 16:16 16:28 16:28 WBC 10.3 (3.8-10.6) k/uL RBC 4.65 (3.80-5.40) m/uL Hgb 13.5 (11.4-16.0) gm/dL Hct 42.2 (34.0-46.0) % MCV 90.7 (80.0-100.0) fL MCH 28.9 (25.0-35.0) pg MCHC 31.9 (31.0-37.0) g/dL RDW 13.9 (11.5-15.5) % Plt Count 249 (150-450) k/uL MPV 8.7 Neutrophils % 85 % Lymphocytes % 11 % Monocytes % 3 % Eosinophils % 1 % Basophils % 0 % Neutrophils # 8.7 H (1.3-7.7) k/uL Lymphocytes # 1.1 (1.0-4.8) k/uL Monocytes # 0.3 (0-1.0) k/uL Eosinophils # 0.1 (0-0.7) k/uL Basophils # 0.0 (0-0.2) k/uL Hypochromasia Slight Sodium (137-145) mmol/L Potassium (3.5-5.1) mmol/L Chloride (98-107) mmol/L Carbon Dioxide (22-30) mmol/L Anion Gap mmol/L BUN (7-17) mg/dL Creatinine (0.52-1.04) mg/dL Est GFR (CKD-EPI)AfAm (>60 ml/min/1.73 sqM) Est GFR (CKD-EPI)NonAf (>60 ml/min/1.73 sqM) Glucose (74-99) mg/dL POC Glucose (mg/dL) 259 H (70-110) mg/dL POC Glu Fitness Management Director ID Willis Mattson Lactic Ac Sepsis Rflx Plasma Lactic Acid Victor Hugo (0.7-2.0) mmol/L Calcium (8.4-10.2) mg/dL Urine Color Light Yellow Urine Appearance Cloudy H (Clear) Urine pH 6.5 (5.0-8.0) Ur Specific Etlan 1.012 (1.001-1.035) Urine Protein Negative (Negative) Urine Glucose (UA) Negative (Negative) Urine Ketones Negative (Negative) Urine Blood Negative (Negative) Urine Nitrite Negative (Negative) Urine Bilirubin Negative (Negative) Urine Urobilinogen <2.0 (<2.0) mg/dL Ur Leukocyte Esterase Large H (Negative) Urine RBC 25 H (0-5) /hpf Urine WBC 47 H (0-5) /hpf Ur Squamous Epith Cells 1 (0-4) /hpf Urine Bacteria Moderate H (None) /hpf Urine Mucus Rare H (None) /hpf 05/10/24 05/10/24 05/10/24 Range/Units 16:28 16:28 17:21 WBC (3.8-10.6) k/uL RBC (3.80-5.40) m/uL Hgb (11.4-16.0) gm/dL Hct (34.0-46.0) % MCV (80.0-100.0) fL MCH (25.0-35.0) pg MCHC (31.0-37.0) g/dL RDW (11.5-15.5) % Plt Count (150-450) k/uL MPV Neutrophils % % Lymphocytes % % Monocytes % % Eosinophils % % Basophils % % Neutrophils # (1.3-7.7) k/uL Lymphocytes # (1.0-4.8) k/uL Monocytes # (0-1.0) k/uL Eosinophils # (0-0.7) k/uL Basophils # (0-0.2) k/uL Hypochromasia Sodium 136 L (137-145) mmol/L Potassium 4.1 (3.5-5.1) mmol/L Chloride 107 (98-107) mmol/L Carbon Dioxide 18 L (22-30) mmol/L Anion Gap 11 mmol/L BUN 11 (7-17) mg/dL Creatinine 0.96 (0.52-1.04) mg/dL Est GFR (CKD-EPI)AfAm 63 (>60 ml/min/1.73 sqM) Est GFR (CKD-EPI)NonAf 55 (>60 ml/min/1.73 sqM) Glucose 265 H (74-99) mg/dL POC Glucose (mg/dL) (70-110) mg/dL POC Glu Fitness Management Director ID Lactic Ac Sepsis Rflx Y Plasma Lactic Acid Victor Hugo 3.1 H* (0.7-2.0) mmol/L Calcium 8.8 (8.4-10.2) mg/dL Urine Color Urine Appearance (Clear) Urine pH (5.0-8.0) Ur Specific Etlan (1.001-1.035) Urine Protein (Negative) Urine Glucose (UA) (Negative) Urine Ketones (Negative) Urine Blood (Negative) Urine Nitrite (Negative) Urine Bilirubin (Negative) Urine Urobilinogen (<2.0) mg/dL Ur Leukocyte Esterase (Negative) Urine RBC (0-5) /hpf Urine WBC (0-5) /hpf Ur Squamous Epith Cells (0-4) /hpf Urine Bacteria (None) /hpf Urine Mucus (None) /hpf Disposition Clinical Impression: Syncope Disposition: ADMITTED IP TO THIS [facility] Condition: Fair Referrals: None,Stated [Primary Care Provider] - 1-2 days Decision Time: 19:38
[2024-05-10 16:39] LABS: Basophils % (A) 0 %; Eosinophils # (A) 0.1 k/uL (0-0.7); Eosinophils % (A) 1 %; HCT 42.2 % (34.0-46.0); HGB 13.5 gm/dL (11.4-16.0); Hypochromasia Slight; Lymphocytes # (A) 1.1 k/uL (1.0-4.8); Lymphocytes % (A) 11 %; MCH 28.9 pg (25.0-35.0); MCHC 31.9 g/dL (31.0-37.0); MCV 90.7 fL (80.0-100.0); Mean Platelet Volume 8.7; Monocytes # (A) 0.3 k/uL (0-1.0); Monocytes % (A) 3 %; Neutrophils # (A) 8.7 k/uL (1.3-7.7); Neutrophils % (A) 85 %; Platelet Count 249 k/uL (150-450); RBC 4.65 m/uL (3.80-5.40); RDW 13.9 % (11.5-15.5); WBC 10.3 k/uL (3.8-10.6)
[2024-05-10 17:05] LABS: Appearance,Urine Cloudy (Clear); Bacteria,Urine Moderate /hpf; Bilirubin,Urine Negative (Negative); Blood,Urine Negative (Negative); Color,Urine Light Yellow; Glucose,Urine (UA) Negative (Negative); Ketones,Urine Negative (Negative); Leukocyte Esterase,Urine Large (Negative); Mucus,Urine Rare /hpf; Nitrite,Urine Negative (Negative); PH, Urine 6.5 (5.0-8.0); Protein,Urine Negative (Negative); RBC,Urine 25 /hpf (0-5); Specific Gravity,Urine 1.012 (1.001-1.035); Squamous Epithelial Cell,Urine 1 /hpf (0-4); Urobilinogen,Urine <2.0 mg/dL (<2.0); WBC,Urine 47 /hpf (0-5)
[2024-05-10 17:08] LABS: African American GFR (CKD) 63 (>60 ml/min/1.73 sqM); Anion Gap 11 mmol/L; Blood Urea Nitrogen 11 mg/dL (7-17); Calcium 8.8 mg/dL (8.4-10.2); Carbon Dioxide 18 mmol/L (22-30); Chloride 107 mmol/L (98-107); Glucose 265 mg/dL (74-99); Non-African American GFR(CKD) 55 (>60 ml/min/1.73 sqM); Potassium 4.1 mmol/L (3.5-5.1); Sodium 136 mmol/L (137-145)
--- NOTE | 2024-05-10 17:25 | CT ---
EXAMINATION TYPE: CT brain wo con DATE OF EXAM: 05/10/2024 COMPARISON: 11/27/2023 HISTORY: weakness CT DLP: 1138.[address] of the brain was performed. The ventricles, basal cisterns and sulci overlying the cerebral convexities demonstrate mild enlargem ent. There is no evidence for intracranial hemorrhage or sulcal effacement. There is decreased attenuation about the periventricular white matter and deep white matter of both c erebral hemispheres, compatible with chronic small vessel ischemia. Differential diagnosis does inclu de demyelination. No mass effects are seen.No midline shift. Osseous calvarium is intact. If symptoms persist consider MRI. IMPRESSION: 1. Age related atrophic and chronic small vessel ischemic change without acute intracranial process s een at this time.
[2024-05-10] MEDS: HYDROcodone/APAP 5-325MG 1 EACH TAB PO STA (17:52)
[2024-05-10] MEDS ORDERED: NALOXONE 0.4 MG/ML 1 ML VIAL IV PRN (19:35)
[2024-05-10] MEDS: LEVOFLOXACIN 750MG-D5W PMX 750 MG in DEXTROSE/WATER 1 150ML.BAG IVPB STA (20:05)
[2024-05-10] MEDS: SODIUM CHLORIDE 0.9% 1,000 ML IV SCH (20:05)
[2024-05-10 21:38] LABS: Glucose,Whole Blood 156 mg/dL (70-110)
[2024-05-10] MEDS ORDERED: IPRATROPIUM 0.5 MG/2.5 ML NEBU INHALATION PRN (23:06)
[2024-05-10] MEDS ORDERED: DEXTROSE 50% SYRINGE 50 ML IVP PRN ×2 (23:15)
--- NOTE | 2024-05-10 23:15 | P.HPIM ---
History of Present Illness H&P Date: 05/10/24 Chief Complaint: Altered mental status 84-year-old female with diabetes mellitus, A-fib on Eliquis Patient coming in for evaluation due to altered mental status, she has been acting confused recently, and today while she was in the bathroom she passed out family notified EMS upon arrival she was found to be diaphoretic and pale she was brought into the hospital. Patient herself does not remember any of the events she provides very limited history she is awake speaking on the phone with family fluently however she does not remember anything family over the phone confirmed the above event they also reported that she acts like this when she has urinary tract infection which she gets frequently At this time patient denies any chest pain trouble breathing headache changes in vision or hearing denies any focal neurodeficits GI bleeding diarrhea. Patient does report some suprapubic abdominal pain and at times urinary incontinence denies any bleeding Patient denies tobacco smoking illicit drugs or heavy alcohol review of systems Pertinent positives as noted in HPI. All other systems were reviewed and are negative on exam Constitutional: No acute distress, conversant, pleasant Eyes: Anicteric sclerae, moist conjunctiva, Pupils equal round reactive to light Neck: Supple, no masses, or JVD No carotid bruits No thyromegaly Lungs: Clear to auscultation Clear to percussion Normal respiratory effort, no accessory muscle use Cardiovascular: Heart regular in rate and rhythm, No murmurs, gallops, or rubs No peripheral edema Abdominal: Soft Tender to deep palpation of the suprapubic region, no guarding, rebound or rigidity Abdomen moving with respiration Normoactive bowel sounds Extremities: No digital cyanosis No clubbing Pedal pulses intact and symmetrical Radial pulses intact and symmetrical No calf tenderness Psychiatric: Alert and oriented to person, place and time Neuro Muscles Strength 3/5 in bilateral lower extremities 4 out of 5 in bilateral upper extremities Sensation to light touch grossly present throughout Cranial nerves II-XII grossly intact Past Medical History Past Medical History: Atrial Fibrillation, Diabetes Mellitus, Hypertension, Memory Impairment Additional Past Medical History / Comment(s): UTI History of Any Multi-Drug Resistant Organisms: VRE Date of last positivie culture/infection: 11/01/23 MDRO Source:: Urine Past Surgical History: Appendectomy Additional Past Surgical History / Comment(s): patient poor historian Past Anesthesia/Blood Transfusion Reactions: No Reported Reaction Past Psychological History: No Psychological Hx Reported Smoking Status: Former smoker Past Alcohol Use History: None Reported Past Drug Use History: None Reported - Past Family History Father History Unknown: Yes Medications and Allergies Home Medications Medication Instructions Recorded Confirmed Type Acetaminophen [Tylenol 8 Hour] 1,300 mg PO BID 08/25/23 05/10/24 History Apixaban [Eliquis] 5 mg PO BID 08/25/23 05/10/24 History Atorvastatin [Lipitor] 40 mg PO HS 08/25/23 05/10/24 History Diclofenac Sodium Gel [Voltaren 1% 1 applic TOPICAL QID PRN 08/25/23 05/10/24 History Gel] Escitalopram [Lexapro] 20 mg PO DAILY 08/25/23 05/10/24 History Ferrous Sulfate [Iron (65 MG 325 mg PO DAILY 08/25/23 05/10/24 History Elemental)] Ipratropium-Albuterol Nebulize 3 ml INHALATION RT-QID PRN 08/25/23 05/10/24 History [Duoneb 0.5 mg-3 mg/3 ml Soln] Levothyroxine Sodium [Synthroid] 12.5 mcg PO AC-BRKFST 08/25/23 05/10/24 History Loperamide HCl [Imodium A-D] 2 mg PO QID PRN 08/25/23 05/10/24 History Loratadine 10 mg PO HS 08/25/23 05/10/24 History Montelukast [Singulair] 10 mg PO HS 08/25/23 05/10/24 History Budesonide-Formot 160-4.5 Mcg 2 puff INHALATION RT-BID #1 each 10/28/23 05/10/24 Rx [Symbicort 160-4.5 Mcg Inhaler] Losartan [Cozaar] 50 mg PO DAILY #30 tab 10/28/23 05/10/24 Rx Acetaminophen Tab [Tylenol] 650 mg PO Q6HR PRN tab 11/04/23 05/10/24 Rx Ipratropium-Albuterol Nebulize 3 ml INHALATION RT-QID #100 each 11/04/23 05/10/24 Rx [Duoneb 0.5 mg-3 mg/3 ml Soln] Diltiazem Cd [Cardizem CD] 180 mg PO DAILY cap 12/09/23 05/10/24 Rx Thiamine [Vitamin B-1] 100 mg PO DAILY tab 12/09/23 05/10/24 Rx amLODIPine [Norvasc] 5 mg PO DAILY tab 12/09/23 05/10/24 Rx Insulin Glargine,Hum.rec.anlog 37 units SQ HS 01/08/24 05/10/24 History [Lantus Solostar Pen] Omeprazole 20 mg PO HS 01/08/24 05/10/24 History Lacosamide [Vimpat] 100 mg PO HS 05/10/24 05/10/24 History Spiriva Respimat 1.25mcg/Actuation 1 puff INHALATION RT-DAILY PRN 05/10/24 05/10/24 History Mist Allergies Allergy/AdvReac Type Severity Reaction Status Date / Time Penicillins Allergy Rash/Hives Verified 05/10/24 17:41 cefepime AdvReac Confusion Verified 05/10/24 17:41 Physical Exam Vitals: Vital Signs Temp Pulse Pulse Resp BP BP Pulse Ox 05/10/24 21:25 98.4 F 103 H 18 128/68 96 05/10/24 20:59 102 H 16 108/58 94 L 05/10/24 20:02 103 H 16 122/68 94 L 05/10/24 18:35 101 H 18 113/60 94 L 05/10/24 17:46 96 16 123/107 95 05/10/24 17:21 89 18 113/67 96 05/10/24 16:05 98.0 F 89 16 104/62 95 Intake and Output 05/10/24 05/10/24 05/11/24 14:59 22:59 06:59 Other: Voiding Method External Catheter Weight 93.894 kg Results CBC & Chem 7: 05/10/24 16:28 05/10/24 16:28 Labs: Abnormal Lab Results - Last 24 Hours (Table) 05/10/24 05/10/24 05/10/24 Range/Units 16:16 16:28 16:28 Neutrophils # 8.7 H (1.3-7.7) k/uL Sodium (137-145) mmol/L Carbon Dioxide (22-30) mmol/L Glucose (74-99) mg/dL POC Glucose (mg/dL) 259 H (70-110) mg/dL Plasma Lactic Acid Victor Hugo (0.7-2.0) mmol/L Urine Appearance Cloudy H (Clear) Ur Leukocyte Esterase Large H (Negative) Urine RBC 25 H (0-5) /hpf Urine WBC 47 H (0-5) /hpf Urine Bacteria Moderate H (None) /hpf Urine Mucus Rare H (None) /hpf 05/10/24 05/10/24 05/10/24 Range/Units 16:28 16:28 21:36 Neutrophils # (1.3-7.7) k/uL Sodium 136 L (137-145) mmol/L Carbon Dioxide 18 L (22-30) mmol/L Glucose 265 H (74-99) mg/dL POC Glucose (mg/dL) 156 H (70-110) mg/dL Plasma Lactic Acid Victor Hugo 3.1 H* (0.7-2.0) mmol/L Urine Appearance (Clear) Ur Leukocyte Esterase (Negative) Urine RBC (0-5) /hpf Urine WBC (0-5) /hpf Urine Bacteria (None) /hpf Urine Mucus (None) /hpf Thrombosis Risk Factor Assmnt - Choose All That Apply Any of the Below Risk Factors Present?: Yes Each Factor Represents 1 point: Obesity (BMI >25) Other Risk Factors: Yes Each Risk Factor Represents 3 Points: Age 75 years or older Other congenital or acquired thrombophilia - If yes, enter type in comment: No Thrombosis Risk Factor Assessment Total Risk Factor Score: 4 Thrombosis Risk Factor Assessment Level: Moderate Risk Assessment and Plan Assessment: 84-year-old female with A-fib on Eliquis, diabetes mellitus on insulin coming in due to syncopal episode while in the bathroom she has been feeling weak and tired and confused over the past couple days I discussed case with ED doctor and accepted the admission for urinary tract infection with anticipated length of stay more than 2 midnights Acute metabolic encephalopathy secondary to underlying infectious process Urinary tract infection Patient has multiple allergies Follow-up blood and urine cultures Patient started on Levaquin 750 mg IV piggyback daily Tylenol 650 mg p.o. every 6 hours as needed for fever Monitor vital signs Lactic acid 3.1 elevated White count 10.3 unremarkable Afebrile Continue with IV fluid hydration with normal saline 75 cc/h Urine analysis positive for leukocyte esterase and white BC in the urine which looked cloudy Fall precaution Orthostatic vitals in the morning Hypertension controlled Continue with losartan, amlodipine Paroxysmal A-fib on Eliquis Continue with Eliquis Continue with Cardizem Diabetes mellitus Insulin sliding scale Hypothyroid Continue levothyroxine Check TSH Renal function unremarkable sodium 136 potassium 4.1 BUN 11 creatinine 0.96 Troponins negative Full code DVT prophylaxis on Eliquis for A-fib GI prophylaxis Protonix 40 mg p.o. daily
[2024-05-10] MEDS: MONTELUKAST 10 MG TAB PO SCH (23:38)
[2024-05-10] MEDS: LACOSAMIDE 50 MG TABLET PO SCH (23:38)
[2024-05-11 06:05] LABS: Glucose,Whole Blood 132 mg/dL (70-110)
[2024-05-11] MEDS: INSULIN ASPART (NovoLOG) 100 UNIT/ML VIAL SQ SCH (06:09)
[2024-05-11] MEDS: LEVOTHYROXINE 25 MCG TAB PO SCH (06:14)
[2024-05-11] MEDS: PANTOPRAZOLE 40 MG TABLET PO SCH (06:14)
[2024-05-11] MEDS: ACETAMINOPHEN TAB 325 MG TAB PO PRN (06:21)
[2024-05-11] MEDS: DILTIAZEM CD 180 MG CAP.ER.24H PO SCH (09:12)
[2024-05-11] MEDS: amLODIPine 5 MG TAB PO SCH (09:13)
[2024-05-11] MEDS: APIXABAN 5 MG TAB PO SCH (09:13)
[2024-05-11] MEDS: LOSARTAN 50 MG TAB PO SCH (09:13)
[2024-05-11] MEDS: SYMBICORT 160-4.5 MCG INHALER INHALATION SCH (09:19)
[2024-05-11 11:39] LABS: Glucose,Whole Blood 206 mg/dL (70-110)
--- NOTE | 2024-05-11 11:49 | P.PN ---
Subjective Progress Note Date: 05/11/24 Principal diagnosis: I reviewed the documentation as provided by the MANJINDER above, who is the original author of this note. I agree with the documented assessment and plan, with the following changes: none Hospital course: Patient is a very pleasant 84-year-old with a past medical history of chronic atrial fibrillation anticoagulation with Eliquis, insulin-dependent diabetes mellitus, hypertension, carotid artery stenosis, hypothyroidism, memory impairment, and recurrent UTIs. She presented to the emergency department on 05/10/2024 secondary to altered mental status with reports that patient has been having increased confusion and while using restroom she reportedly passed out per family who notified EMS to transport her to the hospital. Upon arrival to our facility, patient underwent evaluation in the emergency department. Vital signs upon arrival show blood pressure 104/62, heart rate 89, respiratory rate 16, temp 98.0 F, and SpO2 of 95% on room air. EKG completed showing normal sinus rhythm with occasional PAC. CT head completed showing age-related atrophic and chronic small vessel ischemic changes but negative for acute intercranial process. Labs were completed and reviewed. CBC unremarkable. BMP showing mild hypocarbia with bicarb of 18 otherwise normal findings. Blood glucose was elevated at 265. Lactic acid initially 3.1. Urinalysis positive for 25 RBCs and 47 WBCs with Leukocyte Estrace. Troponin was less than 0.012. TSH 2.460. Patient was admitted under our services for syncopal episode with consult to cardiology. Physical exam: Patient seen and fully evaluated at bedside. She reports feeling good and she is in the hospital because of a UTI. Patient reports urinary frequency and multiple episodes of diarrhea daily. She currently denies having any pain or discomfort at this time. Vital signs reviewed and stable. General: Nontoxic, no distress and appears stated age. Derm: Skin warm and dry, normal coloration for ethnicity. Head: Atraumatic, normocephalic and symmetric. Eyes: EOMs intact, no lid lag, and anicteric sclera Mouth: no lip lesions, mucus membranes moist Cardiovascular: Regular rate and rhythm, no murmur, positive posterior tibial pulses bilaterally, and cap refill < 2 seconds. Lungs: Respirations even, regular, and unlabored on room air. Lungs CTA bilaterally, no rhonchi, no rales, no wheezing, and no accessory muscle usage. Abdominal: soft, nontender to palpation, no guarding, no appreciable organomegaly Ext: ROM intact. No gross muscle atrophy, no edema, no contractures Neuro: Speech clear, face symmetrical and CN II-XII grossly intact with no noted focal neuro deficits Psych: Alert and oriented to person, place, and time, but is a poor historian regarding events leading up to hospitalization Appropriate and pleasant affect. Assessment and Plan of Care: Syncopal episode, unclear etiology possible vasovagal episode Acute metabolic encephalopathy, suspect secondary to underlying infectious process with UTI Urinary tract infection Diarrhea Lactic acidosis, resolved -Telemetry monitoring -Orthostatic vitals to be obtained -Fall precautions and neurochecks -Cardiology consulted, appreciate recommendations -Neurology consulted, appreciate recommendations -Follow-up on urine culture -Follow-up on blood culture -Follow-up on results for C. difficile. -Continue gentle IV fluid hydration with 0.9% normal saline at 75 cc/h. -Continue IV antibiotics with Levaquin 750 mg every 24 hours. Diabetes mellitus with hyperglycemia -Continue glycemic protocol with NovoLog sliding scale and Levemir 37 units nightly. -Hemoglobin A1c 9.2% Paroxysmal atrial fibrillation -Continue anticoagulation with Eliquis 5 mg twice daily and Cardizem 180 mg daily. Hypertension Carotid artery stenosis Hyperlipidemia -Continue daily medication regimen with amlodipine 5 mg daily, atorvastatin 40 mg nightly, and losartan 50 mg daily. Hypothyroidism Continue Levothyroxine 12.5 mcg daily. TSH normal findings at 2.460. COPD, not in acute exacerbation. -Continue Symbicort 2 puffs twice daily, Singulair 10 mg nightly and DuoNebs 4 times daily and as needed for wheezing and/or shortness of breath. Data and Imaging reviewed: -Labs reviewed. Troponin less than 0.012. TSH 2.460. Hemoglobin A1c 9.2. Current blood glucose 132. -Vital signs reviewed. Blood pressure 103/68, heart rate 96, respiratory rate 18, temp 98.0 F, and SpO2 of 96% on room air. CODE STATUS: Full code DVT prophylaxis: Eliquis Anticipated discharge date: Pending clinical course Anticipated discharge place: Pending clinical course Patient was seen independently by Nurse Pracitioner. This document was prepared using [employer] dictation software. Please allow for errors in valve mechanic, while rare they do occur. Objective - Vital Signs Vital signs: Vital Signs Temp 98 F 05/11/24 08:00 Pulse 96 05/11/24 08:00 Resp 18 05/11/24 08:00 BP 103/68 05/11/24 08:00 Pulse Ox 96 05/11/24 08:00 FiO2 Intake & Output 05/10/24 05/11/24 05/11/24 18:59 06:59 18:59 Intake Total 358 Output Total 200 Balance -200 358 Weight 93.894 kg 96.5 kg Intake: Oral 358 Output: Urine 200 Other: Voiding Method External Catheter External Catheter - Labs CBC & Chem 7: 05/13/24 06:21 05/13/24 06:21 Labs: Abnormal Lab Results - Last 24 Hours (Table) 05/10/24 05/10/24 05/10/24 Range/Units 16:16 16:28 16:28 Neutrophils # 8.7 H (1.3-7.7) k/uL Sodium (137-145) mmol/L Carbon Dioxide (22-30) mmol/L Glucose (74-99) mg/dL POC Glucose (mg/dL) 259 H (70-110) mg/dL Hemoglobin A1c (<=6.0) % Plasma Lactic Acid Victor Hugo (0.7-2.0) mmol/L Urine Appearance Cloudy H (Clear) Ur Leukocyte Esterase Large H (Negative) Urine RBC 25 H (0-5) /hpf Urine WBC 47 H (0-5) /hpf Urine Bacteria Moderate H (None) /hpf Urine Mucus Rare H (None) /hpf 05/10/24 05/10/24 05/10/24 Range/Units 16:28 16:28 21:36 Neutrophils # (1.3-7.7) k/uL Sodium 136 L (137-145) mmol/L Carbon Dioxide 18 L (22-30) mmol/L Glucose 265 H (74-99) mg/dL POC Glucose (mg/dL) 156 H (70-110) mg/dL Hemoglobin A1c (<=6.0) % Plasma Lactic Acid Victor Hugo 3.1 H* (0.7-2.0) mmol/L Urine Appearance (Clear) Ur Leukocyte Esterase (Negative) Urine RBC (0-5) /hpf Urine WBC (0-5) /hpf Urine Bacteria (None) /hpf Urine Mucus (None) /hpf 05/11/24 05/11/24 Range/Units 06:03 06:11 Neutrophils # (1.3-7.7) k/uL Sodium (137-145) mmol/L Carbon Dioxide (22-30) mmol/L Glucose (74-99) mg/dL POC Glucose (mg/dL) 132 H (70-110) mg/dL Hemoglobin A1c 9.2 H (<=6.0) % Plasma Lactic Acid Victor Hugo (0.7-2.0) mmol/L Urine Appearance (Clear) Ur Leukocyte Esterase (Negative) Urine RBC (0-5) /hpf Urine WBC (0-5) /hpf Urine Bacteria (None) /hpf Urine Mucus (None) /hpf
[2024-05-11] MEDS ORDERED: IPRATROPIUM-ALBUTEROL 3 ML NEB INHALATION PRN (13:06)
[2024-05-11 16:26] LABS: Glucose,Whole Blood 192 mg/dL (70-110)
[2024-05-11] MEDS: IPRATROPIUM-ALBUTEROL 3 ML NEB INHALATION SCH (16:42)
[2024-05-11] MEDS: LEVOFLOXACIN 750MG-D5W PMX 750 MG in DEXTROSE/WATER 1 150ML.BAG IVPB SCH (18:00)
[2024-05-11 20:09] LABS: Glucose,Whole Blood 209 mg/dL (70-110)
[2024-05-11] MEDS: LORATADINE 10 MG TAB PO SCH (20:21)
[2024-05-11] MEDS: ATORVASTATIN 40 MG TAB PO SCH (20:21)
[2024-05-11] MEDS: INSULIN DETEMIR (LEVEMIR) 100 UNIT/ML SYR SQ SCH (20:22)
[2024-05-11] MEDS: SIMETHICONE 80 MG CHEWABLE PO STA (23:20)
[2024-05-12 06:16] LABS: Glucose,Whole Blood 128 mg/dL (70-110)
[2024-05-12] MEDS: ESCITALOPRAM 20 MG TAB PO SCH (07:57)
[2024-05-12] MEDS: THIAMINE 100 MG TAB PO SCH (07:57)
[2024-05-12] MEDS: FERROUS SULFATE 325 MG TAB PO SCH (07:57)
--- NOTE | 2024-05-12 08:38 | P.CNNES ---
History of Present Illness Consult date: 05/11/24 Requesting physician: Hayden Isaac Reason for Consult: Syncope History of Present Illness: Patient is a 84-year-old female with history of atrial fibrillation, on Eliquis, diabetes, hypertension, carotid artery stenosis, history of subdural hematoma, came to the hospital by ambulance yesterday at 4:04 PM for increasing confusion and a possible syncopal spell. As per EMS flowsheet, when they arrived, family explained that patient recently had a UTI, finished antibiotic therapy yesterday. Patient has been having increasing weakness over the last few days. Today weakness has progressed and patient has become slow to answer questions. Patient was alert, awake oriented x 4 and slow to answer questions. Skin was cool, diaphoretic and pale. Patient denied any chest pain, difficulty breathing or nausea. Patient complaining of weakness and abdominal cramping. Patient mentioned that she has not had a bowel movement in 3 days, normally is daily or every other day. Patient's blood glucose was 311 mg/dL. EKG shows no arrhythmia. Blood pressure was 60/40 and then repeat blood pressure was 99/46 and then 104/66. The final blood pressure was 118/73. Vital signs on arrival blood pressure 104/62, pulse 89 temperature 98.0. Blood test shows normal CBC, CMP, with glucoses to 65. Lactate 3.1. Troponin negative. UA shows large amount of leukocyte esterase and 25 RBCs and 47 WBC. 1 squamous cell. Hemoglobin A1c 9.2. C. difficile negative. EKG showed sinus rhythm with occasional supra ventricular premature complexes. CT head showed age-related atrophic and chronic small vessel ischemic change without acute intracranial process seen at this time. I personally reviewed CT head, agree wi th the findings. Evidence of old lacunar in the right basal ganglia. This was present on the previous CT head from 11/27/2023 as well. Patient had a normal MRI of the brain on 11/28/2023. Patient tells me that she used to live in [place]. Patient's one daughter got into an argument with the other daughter and then she decided to come to the [facility]. Patient states she came because she was having "cramping in the lower stomach". She states that she currently lives with her oldest daughter Natty. Patient denies any fever. Patient says that she has had 2 head injury in the past year and she has lost memory because of that but is coming back slowly. Patient currently takes iron, Lexapro 20 mg, Lipitor 40 mg, Eliquis 5 mg twice daily, diltiazem, Vimpat 100 mg at bedtime. Review of Systems Constitutional: Denies chills, Denies fever Eyes: bilateral diplopia (Sometimes when she sees on the side.), denies blurred vision, denies pain, denies loss of peripheral vision Ears: deny: decreased hearing, ear discharge Ears, nose, mouth and throat: Denies headache, Denies sore throat, Denies vertigo Cardiovascular: Reports dyspnea on exertion, Denies chest pain, Denies lightheadedness, Denies shortness of breath Respiratory: Reports cough, Denies excessive sputum Gastrointestinal: Reports diarrhea (constant), Denies abdominal pain, Denies nausea, Denies vomiting Genitourinary: Denies dysuria, Denies hematuria Musculoskeletal: Reports low back pain, Reports neck pain Integumentary: Denies pruritus, Denies rash Neurological: Reports as per HPI Psychiatric: Reports depression, Denies anxiety Hematologic/Lymphatic: Denies easy bleeding, Denies easy bruising Past Medical History Past Medical History: Atrial Fibrillation, Diabetes Mellitus, Hypertension, Memory Impairment Additional Past Medical History / Comment(s): UTI History of Any Multi-Drug Resistant Organisms: VRE Date of last positivie culture/infection: 11/01/23 MDRO Source:: Urine Past Surgical History: Appendectomy Additional Past Surgical History / Comment(s): patient poor historian Past Anesthesia/Blood Transfusion Reactions: No Reported Reaction Past Psychological History: No Psychological Hx Reported Smoking Status: Former smoker Past Alcohol Use History: None Reported Past Drug Use History: None Reported - Past Family History Father History Unknown: Yes Medications and Allergies Home Medications Medication Instructions Recorded Confirmed Type Acetaminophen [Tylenol 8 Hour] 1,300 mg PO BID 08/25/23 05/10/24 History Apixaban [Eliquis] 5 mg PO BID 08/25/23 05/10/24 History Atorvastatin [Lipitor] 40 mg PO HS 08/25/23 05/10/24 History Diclofenac Sodium Gel [Voltaren 1% 1 applic TOPICAL QID PRN 08/25/23 05/10/24 History Gel] Escitalopram [Lexapro] 20 mg PO DAILY 08/25/23 05/10/24 History Ferrous Sulfate [Iron (65 MG 325 mg PO DAILY 08/25/23 05/10/24 History Elemental)] Ipratropium-Albuterol Nebulize 3 ml INHALATION RT-QID PRN 08/25/23 05/10/24 Hist ory [Duoneb 0.5 mg-3 mg/3 ml Soln] Levothyroxine Sodium [Synthroid] 12.5 mcg PO AC-[id number] 08/25/23 05/10/24 History Loperamide HCl [Imodium A-D] 2 mg PO QID PRN 08/25/23 05/10/24 History Loratadine 10 mg PO HS 08/25/23 05/10/24 History Montelukast [Singulair] 10 mg PO HS 08/25/23 05/10/24 History Budesonide-Formot 160-4.5 Mcg 2 puff INHALATION RT-BID #1 each 10/28/23 05/10/24 Rx [Symbicort 160-4.5 Mcg Inhaler] Losartan [Cozaar] 50 mg PO DAILY #30 tab 10/28/23 05/10/24 Rx Acetaminophen Tab [Tylenol] 650 mg PO Q6HR PRN tab 11/04/23 05/10/24 Rx Ipratropium-Albuterol Nebulize 3 ml INHALATION RT-QID #100 each 11/04/23 05/10/24 Rx [Duoneb 0.5 mg-3 mg/3 ml Soln] Diltiazem Cd [Cardizem CD] 180 mg PO DAILY cap 12/09/23 05/10/24 Rx Thiamine [Vitamin B-1] 100 mg PO DAILY tab 12/09/23 05/10/24 Rx amLODIPine [Norvasc] 5 mg PO DAILY tab 12/09/23 05/10/24 Rx Insulin Glargine,Hum.rec.anlog 37 units SQ HS 01/08/24 05/10/24 History [Lantus Solostar Pen] Omeprazole 20 mg PO HS 01/08/24 05/10/24 History Lacosamide [Vimpat] 100 mg PO HS 05/10/24 05/10/24 History Spiriva Respimat 1.25mcg/Actuation 1 puff INHALATION RT-DAILY PRN 05/10/24 05/10/24 History Mist Allergies Allergy/AdvReac Type Severity Reaction Status Date / Time Penicillins Allergy Rash/Hives Verified 05/10/24 17:41 cefepime AdvReac Confusion Verified 05/10/24 17:41 Physical Examination - Vital Signs Vital Signs: Vital Signs Temp Pulse Pulse Resp BP BP Pulse Ox 05/11/24 14:00 97 18 05/11/24 12:00 97 18 147/76 98 05/11/24 08:00 98 F 96 18 103/68 96 05/11/24 04:10 97.6 F 92 18 108/75 99 05/10/24 23:43 98.0 F 98 16 115/75 97 05/10/24 21:25 98.4 F 103 H 18 128/68 96 05/10/24 20:59 102 H 16 108/58 94 L 05/10/24 20:02 103 H 16 122/68 94 L 05/10/24 18:35 101 H 18 113/60 94 L 05/10/24 17:46 96 16 123/107 95 05/10/24 17:21 89 18 113/67 96 05/10/24 16:05 98.0 F 89 16 104/62 95 Intake and Output 05/11/24 05/11/24 05/11/24 06:59 14:59 22:59 Intake Total 716 Output Total 200 Balance -200 716 Intake: Oral 716 Output: Urine 200 Other: Voiding Method External Catheter External Catheter # Bowel Movements 1 Weight 96.5 kg Patient is a an elderly female, in no acute distress. Patient is alert awake oriented to time place and person. Patient knows it is tender April and the year is 2023. She knows that she is in [facility] in [facility] and in [facility]. She could not remember name of the current president, thought was Henry, but on prompting was able to tell him it is Mr. Escudero. Speech and language functions are normal. Patient can name and repeat very well. No aphasia or dysarthria. Attention, concentration and fund of knowledge is adequate. Detail cognitive function testing deferred. On cranial nerve examination, pupils are equal, round and reacting to light, visual [place] are full on confrontation, with no neglect on double simultaneous stimulation. Extraocular muscles are intact with no nystagmus. Face is symmetric, tongue protrudes to the midline. Palatal elevation and sensation normal, hearing and shoulder shrug normal, facial sensation normal. On muscle strength testing, there is no pronator drift and the strength is normal in arms and legs distally and proximally. Deep tendon reflexes are symmetric 1 all over and plantars are withdrawal. Sensory to touch is equal with no neglect on double simultaneous stimulation. Cerebellar function showed no ataxia for [id number] testing. No dysdiadochokinesia. No ataxia for [id number] testing on either side. Tone and bulk of muscles normal. Gait deferred.. On general examination, there is no carotid bruit or murmur, S1-S2 audible. Chest is clear on consultation. Abdomen is soft nontender. No organomegaly, bowel sounds present. Peripheral pulses are present. No peripheral edema. Results - Laboratory Findings CBC and BMP: 05/10/24 16:28 05/10/24 16:28 Abnormal Lab Findings: Abnormal Labs 05/10/24 05/10/24 05/10/24 16:16 16:28 16:28 Neutrophils # 8.7 H Sodium Carbon Dioxide Glucose POC Glucose (mg/dL) 259 H Hemoglobin A1c Plasma Lactic Acid Victor Hugo Urine Appearance Cloudy H Ur Leukocyte Esterase Large H Urine RBC 25 H Urine WBC 47 H Urine Bacteria Moderate H Urine Mucus Rare H 05/10/24 05/10/24 05/10/24 16:28 16:28 21:36 Neutrophils # Sodium 136 L Carbon Dioxide 18 L Glucose 265 H POC Glucose (mg/dL) 156 H Hemoglobin A1c Plasma Lactic Acid Victor Hugo 3.1 H* Urine Appearance Ur Leukocyte Esterase Urine RBC Urine WBC Urine Bacteria Urine Mucus 05/11/24 05/11/24 05/11/24 06:03 06:11 11:37 Neutrophils # Sodium Carbon Dioxide Glucose POC Glucose (mg/dL) 132 H 206 H Hemoglobin A1c 9.2 H Plasma Lactic Acid Victor Hugo Urine Appearance Ur Leukocyte Esterase Urine RBC Urine WBC Urine Bacteria Urine Mucus Assessment and Plan Assessment: * Syncopal spell at home, likely due to hypotension. Patient's vitals in the scene was blood pressure 60/40, which likely resulted in syncope. Patient currently is back at baseline. * Possible acute UTI. Recently treated UTI as well * Probable mild cognitive impairment * History of left-sided subdural hematoma 10/08/2023, treated conservatively. * Diarrhea * Diabetes * Paroxysmal atrial fibrillation * Hypertension * Hypothyroidism * COPD Plan: * Patient has a possible syncope from hypotension. It has resolved now. * Patient has possible UTI, currently on Levaquin. * Continue Vimpat 100 mg at bedtime. * TSH normal at 2.46, * Hemoglobin A1c 9.2. Recommend optimize control of diabetes to target A1c <7.0. * Carotid Doppler from 11/28/2023 revealed less than 50% stenosis of bilateral carotid bifurcation. Nonvisualization of the left vertebral artery. * Continue Eliquis 5 mg twice a day. * Continue Lipitor 40 mg daily. * Neurologically, no other workup indicated. * Neurologically clear. Thank you for the consult.
--- NOTE | 2024-05-12 11:17 | P.CRDCN ---
History of Present Illness Consult date: 05/12/24 History of present illness: The patient is a pleasant 84-year-old female patient with a past medical history significant for paroxysmal atrial fibrillation as well as hypertension and dyslipidemia and history of seizure was brought to the hospital after she had an episode of syncope at home. The patient was in her usual state of health where she was at home sitting on the toilet and that is the last thing she remembers. She is somewhat poor historian. She subsequently lost her consciousness. No prodromal symptoms. No symptoms of chest pain or chest discomfort or shortness of breath. She was brought to the hospital where she underwent further evaluation including an EKG showed sinus mechanism and no significant ST or T wave abnormalities or ischemic changes and also the first set of troponin came in to be unremarkable with her pressure appears to be marginal. Currently she is on amlodipine and also she is on losartan and going to perform an orthostatic blood pressure and also decrease the dose of both. An echocardiogram is in process to be done. The rest of the workup came to be unremarkable with the patient was getting treated for UTI as an outpatient before she came into the hospital. Examination is remarkable for regular rhythm with soft systolic murmur and clear breathing sounds bilaterally and no carotid bruit and no edema was noted Assessment Syncope likely to be reflex syncope with orthostatic hypotension versus vasovagal syncope Paroxysmal atrial fibrillation currently in sinus mechanism History of mild underlying dementia Multiple comorbid conditions Plan Decrease the dose of both losartan and amlodipine Perform an orthostatic blood pressure check Continue oral anticoagulation Obtain an echo Rule out acute coronary event Follow-up with the patient Past Medical History Past Medical History: Atrial Fibrillation, Diabetes Mellitus, Hypertension, Memory Impairment Additional Past Medical History / Comment(s): UTI History of Any Multi-Drug Resistant Organisms: VRE Date of last positivie culture/infection: 11/01/23 MDRO Source:: Urine Past Surgical History: Appendectomy Additional Past Surgical History / Comment(s): patient poor historian Past Anesthesia/Blood Transfusion Reactions: No Reported Reaction Past Psychological History: No Psychological Hx Reported Smoking Status: Former smoker Past Alcohol Use History: None Reported Past Drug Use History: None Reported - Past Family History Father History Unknown: Yes Medications and Allergies Home Medications Medication Instructions Recorded Confirmed Type Acetaminophen [Tylenol 8 Hour] 1,300 mg PO BID 08/25/23 05/10/24 History Apixaban [Eliquis] 5 mg PO BID 08/25/23 05/10/24 History Atorvastatin [Lipitor] 40 mg PO HS 08/25/23 05/10/24 History Diclofenac Sodium Gel [Voltaren 1% 1 applic TOPICAL QID PRN 08/25/23 05/10/24 History Gel] Escitalopram [Lexapro] 20 mg PO DAILY 08/25/23 05/10/24 History Ferrous Sulfate [Iron (65 MG 325 mg PO DAILY 08/25/23 05/10/24 History Elemental)] Ipratropium-Albuterol Nebulize 3 ml INHALATION RT-QID PRN 08/25/23 05/10/24 History [Duoneb 0.5 mg-3 mg/3 ml Soln] Levothyroxine Sodium [Synthroid] 12.5 mcg PO AC-BRKFST 08/25/23 05/10/24 History Loperamide HCl [Imodium A-D] 2 mg PO QID PRN 08/25/23 05/10/24 History Loratadine 10 mg PO HS 08/25/23 05/10/24 History Montelukast [Singulair] 10 mg PO HS 08/25/23 05/10/24 History Budesonide-Formot 160-4.5 Mcg 2 puff INHALATION RT-BID #1 each 10/28/23 05/10/24 Rx [Symbicort 160-4.5 Mcg Inhaler] Losartan [Cozaar] 50 mg PO DAILY #30 tab 10/28/23 05/10/24 Rx Acetaminophen Tab [Tylenol] 650 mg PO Q6HR PRN tab 11/04/23 05/10/24 Rx Ipratropium-Albuterol Nebulize 3 ml INHALATION RT-QID #100 each 11/04/23 05/10/24 Rx [Duoneb 0.5 mg-3 mg/3 ml Soln] Diltiazem Cd [Cardizem CD] 180 mg PO DAILY cap 12/09/23 05/10/24 Rx Thiamine [Vitamin B-1] 100 mg PO DAILY tab 12/09/23 05/10/24 Rx amLODIPine [Norvasc] 5 mg PO DAILY tab 12/09/23 05/10/24 Rx Insulin Glargine,Hum.rec.anlog 37 units SQ HS 01/08/24 05/10/24 History [Lantus Solostar Pen] Omeprazole 20 mg PO HS 01/08/24 05/10/24 History Lacosamide [Vimpat] 100 mg PO HS 05/10/24 05/10/24 History Spiriva Respimat 1.25mcg/Actuation 1 puff INHALATION RT-DAILY PRN 05/10/24 05/10/24 History Mist Allergies Allergy/AdvReac Type Severity Reaction Status Date / Time Penicillins Allergy Rash/Hives Verified 05/10/24 17:41 cefepime AdvReac Confusion Verified 05/10/24 17:41 Physical Exam Vitals: Vital Signs Temp Pulse Resp BP Pulse Ox 05/12/24 08:00 97.9 F 92 16 121/70 98 05/12/24 03:22 98.4 F 90 16 119/63 99 05/11/24 23:14 98.1 F 92 18 115/76 96 05/11/24 20:00 97.9 F 88 16 111/75 96 05/11/24 16:00 83 18 137/82 96 05/11/24 14:00 97 18 05/11/24 12:00 97 18 147/76 98 Intake and Output 05/11/24 05/12/24 05/12/24 22:59 06:59 14:59 Intake Total 118 110 Output Total 325 1200 Balance -207 -1200 110 Intake: Oral 118 110 Output: Urine 325 1200 Other: Voiding Method External Catheter External Catheter External Catheter Weight 95.9 kg Results 05/10/24 16:28 05/10/24 16:28 Current Medications Generic Name Dose Route Start Last Admin Trade Name Freq PRN Reason Stop Dose Admin Acetaminophen 650 mg 05/10/24 23:06 05/11/24 06:21 Acetaminophen Tab 325 Mg Tab PO 650 mg Q6HR PRN Administration Mild Pain or Fever > 100.5 Albuterol/Ipratropium 3 ml 05/11/24 13:06 Ipratropium-Albuterol 3 Ml Neb INHALATION RT-QID PRN Shortness Of Breath Amlodipine Besylate 5 mg 05/11/24 09:00 05/12/24 07:57 Amlodipine 5 Mg Tab PO 5 mg DAILY MARGOTH Administration Apixaban 5 mg 05/11/24 09:00 05/12/24 07:57 Apixaban 5 Mg Tab PO 5 mg BID MARGOTH Administration Protocol Atorvastatin Calcium 40 mg 05/11/24 21:00 05/11/24 20:21 Atorvastatin 40 Mg Tab PO 40 mg HS MARGOTH Administration Budesonide/Formoterol Fumarate 2 puff 05/11/24 08:00 05/12/24 09:18 Symbicort 160-4.5 Mcg Inhaler INHALATION 2 puff RT-BID MARGOTH Administration Dextrose/Water 25 ml 05/10/24 23:15 Dextrose 50% Syringe 50 Ml IVP PER PROTOCOL PRN Hypoglycemia Protocol Dextrose/Water 50 ml 05/10/24 23:15 Dextrose 50% Syringe 50 Ml IVP PER PROTOCOL PRN Hypoglycemia Protocol Diltiazem HCl 180 mg 05/11/24 09:00 05/12/24 07:57 Diltiazem Cd 180 Mg Cap.Er.24h PO 180 mg DAILY MARGOTH Administration Escitalopram Oxalate 20 mg 05/12/24 09:00 05/12/24 07:57 Escitalopram 20 Mg Tab PO 20 mg DAILY MARGOTH Administration Ferrous Sulfate 325 mg 05/12/24 09:00 05/12/24 07:57 Ferrous Sulfate 325 Mg Tab PO 325 mg DAILY MARGOTH Administration Sodium Chloride 1,000 mls @ 75 mls/hr 05/10/24 19:45 05/12/24 06:22 Saline 0.9% IV Not Given .[id number] [facility] Levofloxacin 750 mg/ IV 150 mls @ 100 mls/hr 05/11/24 18:00 05/11/24 18:00 Solution IVPB 100 mls/hr Q24H MARGOTH Administration Protocol Insulin Aspart 0 unit 05/11/24 07:30 05/12/24 06:15 Insulin Aspart (Novolog) 100 Unit/Ml Vial SQ Not Given ACHS [facility] Protocol Insulin Detemir 37 unit 05/11/24 21:00 05/11/24 20:22 Insulin Detemir (Levemir) 100 Unit/Ml Syr SQ 37 unit HS MARGOTH Administration Ipratropium Retsof 0.5 mg 05/10/24 23:06 Ipratropium 0.5 Mg/2.5 Ml Nebu INHALATION RT-QID PRN Shortness Of Breath Lacosamide 100 mg 05/10/24 23:30 05/11/24 20:21 Lacosamide 50 Mg Tablet PO 100 mg HS MARGOTH Administration Levothyroxine Sodium 12.5 mcg 05/11/24 07:30 05/12/24 06:17 Levothyroxine 25 Mcg Tab PO 12.5 mcg AC-BRKFST MARGOTH Administration Loratadine 10 mg 05/11/24 21:00 05/11/24 20:21 Loratadine 10 Mg Tab PO 10 mg HS MARGOTH Administration Losartan Potassium 50 mg 05/11/24 09:00 05/12/24 07:57 Losartan 50 Mg Tab PO 50 mg DAILY MARGOTH Administration Montelukast Sodium 10 mg 05/10/24 23:15 05/11/24 20:21 Montelukast 10 Mg Tab PO 10 mg HS MARGOTH Administration Naloxone HCl 0.2 mg 05/10/24 19:35 Naloxone 0.4 Mg/Ml 1 Ml Vial IV Q2M PRN Opioid Reversal Pantoprazole Sodium 40 mg 05/11/24 07:30 05/12/24 06:17 Pantoprazole 40 Mg Tablet PO 40 mg AC-BRKFST MARGOTH Administration Thiamine HCl 100 mg 05/12/24 09:00 05/12/24 07:57 Thiamine 100 Mg Tab PO 100 mg DAILY MARGOTH Administration Intake and Output 05/11/24 05/12/24 05/12/24 22:59 06:59 14:59 Intake Total 118 110 Output Total 325 1200 Balance -207 -1200 110 Intake: Oral 118 110 Output: Urine 325 1200 Other: Voiding Method External Catheter External Catheter External Catheter Weight 95.9 kg 05/10/24 16:28 05/10/24 16:28
[2024-05-12 11:25] LABS: Glucose,Whole Blood 241 mg/dL (70-110)
--- NOTE | 2024-05-12 13:13 | P.PN ---
Subjective Progress Note Date: 05/12/24 Principal diagnosis: I reviewed the documentation as provided by the MANJINDER above, who is the original author of this note. I agree with the documented assessment and plan, with the following changes: none Hospital course: Patient is a very pleasant 84-year-old with a past medical history of chronic atrial fibrillation anticoagulation with Eliquis, insulin-dependent diabetes mellitus, hypertension, carotid artery stenosis, hypothyroidism, memory impairment, and recurrent UTIs. She presented to the emergency department on 05/10/2024 secondary to altered mental status with reports that patient has been having increased confusion and while using restroom she reportedly passed out per family who notified EMS to transport her to the hospital. Upon arrival to our facility, patient underwent evaluation in the emergency department. Vital signs upon arrival show blood pressure 104/62, heart rate 89, respiratory rate 16, temp 98.0 F, and SpO2 of 95% on room air. EKG completed showing normal sinus rhythm with occasional PAC. CT head completed showing age-related atrophic and chronic small vessel ischemic changes but negative for acute intercranial process. Labs were completed and reviewed. CBC unremarkable. BMP showing mild hypocarbia with bicarb of 18 otherwise normal findings. Blood glucose was elevated at 265. Lactic acid initially 3.1. Urinalysis positive for 25 RBCs and 47 WBCs with Leukocyte Estrace. Troponin was less than 0.012. TSH 2.460. Patient was admitted under our services for syncopal episode with consult to cardiology and neurology. Physical exam: Patient seen and fully evaluated at bedside. Sitting up in the chair and appe ared to be doing well this morning. She denies having any complaints at this time including headache, lightheadedness, dizziness, chest pain, palpitations, shortness of breath, or experiencing any numbness/tingling/weakness in her extremities. Patient reports continued urinary frequency but denies urgency or dysuria this morning. Vital signs reviewed and stable. General: Nontoxic, no distress and appears stated age. Derm: Skin warm and dry, normal coloration for ethnicity. Head: Atraumatic, normocephalic and symmetric. Eyes: EOMs intact, no lid lag, and anicteric sclera Mouth: no lip lesions, mucus membranes moist Cardiovascular: Regular rate and rhythm, no murmur, positive posterior tibial pulses bilaterally, and cap refill < 2 seconds. Lungs: Respirations even, regular, and unlabored on room air. Lungs CTA bilaterally, no rhonchi, no rales, no wheezing, and no accessory muscle usage. Abdominal: soft, nontender to palpation, no guarding, no appreciable organomegaly Ext: ROM intact. No gross muscle atrophy, no edema, no contractures Neuro: Speech clear, face symmetrical and CN II-XII grossly intact with no noted focal neuro deficits Psych: Alert and oriented to person, place, and time, but is a poor historian regarding events leading up to hospitalization Appropriate and pleasant affect. Assessment and Plan of Care: Syncopal episode, unclear etiology possible vasovagal episode Acute metabolic encephalopathy, suspect secondary to underlying infectious process with UTI Urinary tract infection Diarrhea Lactic acidosis, resolved -Telemetry monitoring -Orthostatic vitals to be obtained -Fall precautions and neurochecks -Cardiology consulted, appreciate recommendations -Neurology following, discussed plan of care with neurologist -Follow-up on urine culture -Follow-up on blood culture -C. difficile was negative. -Continue gentle IV fluid hydration with 0.9% normal saline at 75 cc/h. -Continue IV antibiotics with Levaquin 750 mg every 24 hours pending final urine culture results. Diabetes mellitus with hyperglycemia -Continue glycemic protocol with NovoLog sliding scale and Levemir 37 units nightly. -Hemoglobin A1c 9.2% Paroxysmal atrial fibrillation -Continue anticoagulation with Eliquis 5 mg twice daily and Cardizem 180 mg daily. Hypertension Carotid artery stenosis Hyperlipidemia -Continue daily medication regimen with amlodipine 5 mg daily, atorvastatin 40 mg nightly, and losartan 50 mg daily. Hypothyroidism Continue Levothyroxine 12.5 mcg daily. TSH normal findings at 2.460. COPD, not in acute exacerbation. -Continue Symbicort 2 puffs twice daily, Singulair 10 mg nightly and DuoNebs 4 times daily and as needed for wheezing and/or shortness of breath. Data and Imaging reviewed: -Labs reviewed. Troponin less than 0.012. TSH 2.460. Hemoglobin A1c 9.2. Current blood glucose 128. C. difficile negative. -Vital signs reviewed. Blood pressure 121/70, heart rate 92, respiratory rate 16, temp 97.9 F, and SpO2 of 98% on room air.. CODE STATUS: Full code DVT prophylaxis: Eliquis Anticipated discharge date: Pending clinical course Anticipated discharge place: Pending clinical course Patient was seen independently by Nurse Pracitioner. This document was prepared using [employer] dictation software. Please allow for errors in sustainable design consultant, while rare they do occur. Objective - Vital Signs Vital signs: Vital Signs Temp 98.4 F 05/12/24 03:22 Pulse 90 05/12/24 03:22 Resp 16 05/12/24 03:22 BP 119/63 05/12/24 03:22 Pulse Ox 99 05/12/24 03:22 FiO2 Intake & Output 05/11/24 05/12/24 05/12/24 18:59 06:59 18:59 Intake Total 834 Output Total 325 1200 Balance 509 -1200 Weight 95.9 kg Intake: Oral 834 Output: Urine 325 1200 Other: Voiding Method External Catheter External Catheter # Bowel Movements 1 - Labs CBC & Chem 7: 05/13/24 06:21 05/13/24 06:21 Labs: Abnormal Lab Results - Last 24 Hours (Table) 05/11/24 05/11/24 05/11/24 Range/Units 06:11 11:37 16:24 POC Glucose (mg/dL) 206 H 192 H (70-110) mg/dL Hemoglobin A1c 9.2 H (<=6.0) % 05/11/24 05/12/24 Range/Units 20:08 06:14 POC Glucose (mg/dL) 209 H 128 H (70-110) mg/dL Hemoglobin A1c (<=6.0) %
[2024-05-12 14:02] VITALS: BMI 33.0
[2024-05-12 16:37] LABS: Glucose,Whole Blood 141 mg/dL (70-110)
[2024-05-12 20:15] LABS: Glucose,Whole Blood 215 mg/dL (70-110)
[2024-05-13 06:05] LABS: Glucose,Whole Blood 171 mg/dL (70-110)
[2024-05-13 07:44] LABS: HGB 11.8 gm/dL (11.4-16.0); MCH 30.2 pg (25.0-35.0); MCHC 33.8 g/dL (31.0-37.0); MCV 89.3 fL (80.0-100.0); Mean Platelet Volume 8.1; Platelet Count 253 k/uL (150-450); RBC 3.92 m/uL (3.80-5.40); RDW 13.6 % (11.5-15.5); WBC 5.3 k/uL (3.8-10.6)
[2024-05-13] MEDS: LOSARTAN 25 MG TAB PO SCH (07:45)
[2024-05-13] MEDS: amLODIPine 2.5 MG TAB PO SCH (07:45)
[2024-05-13 08:12] LABS: ALT 8 U/L (4-34); AST 17 U/L (14-36); African American GFR (CKD) >90 (>60 ml/min/1.73 sqM); Albumin 3.6 g/dL (3.5-5.0); Alkaline Phosphatase 79 U/L (38-126); Anion Gap 9 mmol/L; Blood Urea Nitrogen 10 mg/dL (7-17); Calcium 8.8 mg/dL (8.4-10.2); Carbon Dioxide 24 mmol/L (22-30); Chloride 106 mmol/L (98-107); Glucose 139 mg/dL (74-99); Magnesium 1.7 mg/dL (1.6-2.3); Non-African American GFR(CKD) 81 (>60 ml/min/1.73 sqM); Potassium 4.3 mmol/L (3.5-5.1); Sodium 139 mmol/L (137-145); Total Bilirubin 0.8 mg/dL (0.2-1.3)
--- NOTE | 2024-05-13 09:35 | P.PN ---
Subjective Progress Note Date: 05/13/24 The patient is a pleasant 84-year-old female patient with a past medical history significant for paroxysmal atrial fibrillation as well as hypertension and dyslipidemia and history of seizure was brought to the hospital after she had an episode of syncope at home. The patient was in her usual state of health where she was at home sitting on the toilet and that is the last thing she remembers. She is somewhat poor historian. She subsequently lost her consciousness. No prodromal symptoms. No symptoms of chest pain or chest discomfort or shortness of breath. She was brought to the hospital where she underwent further evaluation including an EKG showed sinus mechanism and no significant ST or T wave abnormalities or ischemic changes and also the first set of troponin came in to be unremarkable with her pressure appears to be marginal. Currently she is on amlodipine and also she is on losartan and going to perform an orthostatic blood pressure and also decrease the dose of both. An echocardiogram is in process to be done. The rest of the workup came to be unremarkable with the patient was getting treated for UTI as an outpatient before she came into the hospital. Examination is remarkable for regular rhythm with soft systolic murmur and clear breathing sounds bilaterally and no carotid bruit and no edema was noted May 13, 2024 The patient was seen this morning. She seems to be stable and currently she is asymptomatic. She underwent an orthostatic blood pressure check and that came in to be positive in spite of decreasing the dose of amlodipine and losartan with him going to stop the amlodipine completely at this point. The echo still pending. Examination is remarkable for regular rhythm with a soft systolic murmur and clear breathing sounds bilaterally and no edema was noted in the lower extremities Assessment Syncope likely to be reflex syncope with orthostatic hypotension versus vasovagal syncope Paroxysmal atrial fibrillation currently in sinus mechanism History of mild underlying dementia Multiple comorbid conditions Plan Decrease the dose of both losartan and amlodipine Perform an orthostatic blood pressure check Continue oral anticoagulation Obtain an echo Rule out acute coronary event Follow-up with the patient Objective - Vital Signs Vital signs: Vital Signs Temp 97.9 F 05/13/24 07:44 Pulse 86 05/13/24 07:44 Resp 17 05/13/24 07:44 BP 132/65 05/13/24 07:44 Pulse Ox 95 05/13/24 07:44 FiO2 Intake & Output 05/12/24 05/13/24 05/13/24 18:59 06:59 18:59 Intake Total 330 240 Output Total 800 900 Balance -470 -900 240 Weight 95.9 kg 96.1 kg Intake: Oral 330 240 Output: Urine 800 900 Other: Voiding Method External Catheter External Catheter - Labs CBC & Chem 7: 05/13/24 06:21 05/13/24 06:21 Labs: Abnormal Lab Results - Last 24 Hours (Table) 05/12/24 05/12/24 05/12/24 Range/Units 11:21 16:32 20:14 Glucose (74-99) mg/dL POC Glucose (mg/dL) 241 H 141 H 215 H (70-110) mg/dL Total Protein (6.3-8.2) g/dL 05/13/24 05/13/24 Range/Units 06:03 06:21 Glucose 139 H (74-99) mg/dL POC Glucose (mg/dL) 171 H (70-110) mg/dL Total Protein 6.0 L (6.3-8.2) g/dL Microbiology - Last 24 Hours (Table) 05/11/24 00:30 Blood Culture - Preliminary Blood 05/10/24 16:28 Urine Culture - Final Urine,Clean Catch
[2024-05-13 11:27] LABS: Glucose,Whole Blood 173 mg/dL (70-110)
--- NOTE | 2024-05-13 12:24 | P.PN ---
Subjective Progress Note Date: 05/13/24 Principal diagnosis: I reviewed the documentation as provided by the MANJINDER above, who is the original author of this note. I agree with the documented assessment and plan, with the following changes: none Hospital course: Patient is a very pleasant 84-year-old with a past medical history of chronic atrial fibrillation anticoagulation with Eliquis, insulin-dependent diabetes mellitus, hypertension, carotid artery stenosis, hypothyroidism, memory impairment, and recurrent UTIs. She presented to the emergency department on 05/10/2024 secondary to altered mental status with reports that patient has been having increased confusion and while using restroom she reportedly passed out per family who notified EMS to transport her to the hospital. Upon arrival to our facility, patient underwent evaluation in the emergency department. Vital signs upon arrival show blood pressure 104/62, heart rate 89, respiratory rate 16, temp 98.0 F, and SpO2 of 95% on room air. EKG completed showing normal sinus rhythm with occasional PAC. CT head completed showing age-related atrophic and chronic small vessel ischemic changes but negative for acute intercranial process. Labs were completed and reviewed. CBC unremarkable. BMP showing mild hypocarbia with bicarb of 18 otherwise normal findings. Blood glucose was elevated at 265. Lactic acid initially 3.1. Urinalysis positive for 25 RBCs and 47 WBCs with Leukocyte Estrace. Troponin was less than 0.012. TSH 2.460. Patient was admitted under our services for syncopal episode with consult to cardiology and neurology. Physical exam: Patient seen and fully evaluated at bedside. Sitting up in the chair and appe ared to be doing well this morning. She denies having any complaints at this time including headache, lightheadedness, dizziness, chest pain, palpitations, shortness of breath, or experiencing any numbness/tingling/weakness in her extremities. Patient reports continued urinary frequency but denies urgency or dysuria this morning. Vital signs reviewed and stable. General: Nontoxic, no distress and appears stated age. Derm: Skin warm and dry, normal coloration for ethnicity. Head: Atraumatic, normocephalic and symmetric. Eyes: EOMs intact, no lid lag, and anicteric sclera Mouth: no lip lesions, mucus membranes moist Cardiovascular: Regular rate and rhythm, no murmur, positive posterior tibial pulses bilaterally, and cap refill < 2 seconds. Lungs: Respirations even, regular, and unlabored on room air. Lungs CTA bilaterally, no rhonchi, no rales, no wheezing, and no accessory muscle usage. Abdominal: soft, nontender to palpation, no guarding, no appreciable organomegaly Ext: ROM intact. No gross muscle atrophy, no edema, no contractures Neuro: Speech clear, face symmetrical and CN II-XII grossly intact with no noted focal neuro deficits Psych: Alert and oriented to person, place, and time, but is a poor historian regarding events leading up to hospitalization Appropriate and pleasant affect. Assessment and Plan of Care: Syncopal episode, unclear etiology possible vasovagal episode Orthostatic hypotension and postural orthostatic tachycardia Acute metabolic encephalopathy, resolved. Urinary tract infection, ruled out with negative urine culture. Diarrhea, resolved. Lactic acidosis, resolved -Telemetry monitoring -Orthostatic vitals positive. Blood pressure 146/82 with heart rate 74 lying, sitting 141/85 with heart rate 99, and standing 120/70 with heart rate of 112. -Fall precautions and neurochecks -Cardiology consulted, discussed plan of care with core worker recommending completion of echocardiogram. -Neurology evaluated recommending no further neurological workup at this time. -Urine culture negative. -Blood culture showing no growth to date. -C. difficile was negative. -Received 3-day course of Levaquin 750 mg daily, urine culture negative and antibiotics discontinued at this time. -Follow-up on echocardiogram results. Diabetes mellitus with hyperglycemia -Continue glycemic protocol with NovoLog sliding scale and Levemir 37 units nightly. -Hemoglobin A1c 9.2% Paroxysmal atrial fibrillation -Continue anticoagulation with Eliquis 5 mg twice daily and Cardizem 180 mg daily. Hypertension Carotid artery stenosis Hyperlipidemia -Continue daily medication regimen with amlodipine 5 mg daily, atorvastatin 40 mg nightly, and losartan 50 mg daily. Hypothyroidism Continue Levothyroxine 12.5 mcg daily. TSH normal findings at 2.460. COPD, not in acute exacerbation. -Continue Symbicort 2 puffs twice daily, Singulair 10 mg nightly and DuoNebs 4 times daily and as needed for wheezing and/or shortness of breath. Data and Imaging reviewed: -Labs reviewed. Urine culture negative. Blood culture showing no growth to date. CBC unremarkable. BMP showing mild hyperglycemia with glucose of 139 otherwise normal findings. Liver profile unremarkable. -Vital signs reviewed. Blood pressure 132/65, heart rate 86, respiratory rate 17, temp 97.9 F, and SpO2 of 95% on room air. -Orthostatic vitals positive. Blood pressure 146/82 with heart rate 74 lying, sitting 141/85 with heart rate 99, and standing 120/70 with heart rate of 112. CODE STATUS: Full code DVT prophylaxis: [place] Anticipated discharge date: Likely tomorrow Anticipated discharge place: Home with home care versus SNF Patient was seen independently by Nurse Pracitioner. This document was prepared using [employer] dictation software. Please allow for errors in software test and validation engineer, while rare they do occur. Objective - Vital Signs Vital signs: Vital Signs Temp 97.9 F 05/13/24 07:44 Pulse 86 05/13/24 07:44 Resp 17 05/13/24 07:44 BP 132/65 05/13/24 07:44 Pulse Ox 95 05/13/24 07:44 FiO2 Intake & Output 05/12/24 05/13/24 05/13/24 18:59 06:59 18:59 Intake Total 330 240 Output Total 800 900 Balance -470 -900 240 Weight 95.9 kg 96.1 kg Intake: Oral 330 240 Output: Urine 800 900 Other: Voiding Method External Catheter External Catheter - Labs CBC & Chem 7: 05/13/24 06:21 05/13/24 06:21 Labs: Abnormal Lab Results - Last 24 Hours (Table) 05/12/24 05/12/24 05/12/24 Range/Units 11:21 16:32 20:14 Glucose (74-99) mg/dL POC Glucose (mg/dL) 241 H 141 H 215 H (70-110) mg/dL Total Protein (6.3-8.2) g/dL 05/13/24 05/13/24 Range/Units 06:03 06:21 Glucose 139 H (74-99) mg/dL POC Glucose (mg/dL) 171 H (70-110) mg/dL Total Protein 6.0 L (6.3-8.2) g/dL Microbiology - Last 24 Hours (Table) 05/11/24 00:30 Blood Culture - Preliminary Blood 05/10/24 16:28 Urine Culture - Final Urine,Clean Catch
--- NOTE | 2024-05-13 15:32 | CA ---
Transthoracic Echo Report Name: Flores Chadwick Age: 84 Gender: F : 1940 Exam Date: 05/12/2024 13:15 Exam Location: [facility] Ht (in): 67 Wt (lb): 211 Ordering Physician: Edward Hughes MD ([id number]) Attending/Referring Phys: Refractory Products Supervisor Lena Cervantes RDCS Procedure CPT: Indications: eval heart function Cardiac Hx: Technical Quality: Poor Contrast 1: Total Dose (mL): Contrast 2: Total Dose (mL): MEASUREMENTS (Male / Female) Normal Values 2D ECHO LV Diastolic Diameter PLAX 4.2 cm 4.2 - 5.9 / 3.9 - 5.3 cm LV Systolic Diameter PLAX 2.7 cm IVS Diastolic Thickness 1.2 cm 0.6 - 1.0 / 0.6 - 0.9 cm LVPW Diastolic Thickness 1.2 cm 0.6 - 1.0 / 0.6 - 0.9 cm LV Relative Wall Thickness 0.6 RV Internal Dim ED PLAX 3.3 cm LA Systolic Diameter LX 2.9 cm 3.0 - 4.0 / 2.7 - 3.8 cm LV Diastolic Volume MOD 4C 78.1 cm??? LV Systolic Volume MOD 4C 34.9 cm??? LV Ejection Fraction MOD 4C 55.3 % LV Cardiac Index MOD 4C 1779.6 cm???/min???m??? LV Diastolic Length 4C 7.3 cm LV Systolic Length 4C 6.2 cm LA Volume 50.6 cm??? 18 - 58 / 22 - 52 cm??? LA Volume Index 23.4 cm???/m??? 16 - 28 cm???/m??? M-MODE Aortic Root Diameter MM 2.9 cm AV Cusp Separation MM 1.9 cm DOPPLER AV Peak Velocity 152.5 cm/s AV Peak Gradient 9.3 mmHg MV Area PHT 2.1 cm??? Mitral E Point Velocity 99.4 cm/s Mitral A Point Velocity 144.5 cm/s Mitral E to A Ratio 0.7 MV Deceleration Time 363.9 ms TR Peak Velocity 256.9 cm/s TR Peak Gradient 26.4 mmHg Right Ventricular Systolic Press 31.4 mmHg FINDINGS Left Ventricle Left ventricular ejection fraction is estimated at 55 %. Left ventricular cavity size normal. Mildly increased septal wall thickness. Mildly increased posterior wall thickness. No obvious regional wall motion abnormalities. Right Ventricle Mild right ventricular dilatation. Right ventricular systolic pressure within normal limits. Right Atrium Right atrium not well visualized. Left Atrium Normal left atrial size. Mitral Valve Mitral valve thickened. No mitral stenosis, regurgitation or prolapse. Aortic Valve Trileaflet aortic valve. No aortic valve stenosis or regurgitation. Tricuspid Valve Structurally normal tricuspid valve. Mild tricuspid regurgitation. Pulmonic Valve Pulmonic valve not well visualized. Pericardium No pericardial effusion. Aorta Normal size aortic root and proximal ascending aorta. CONCLUSIONS Technically difficult study for interpretation Normal LV systolic function Poorly visualized intracardiac valves Previewed by: Dr. Edward Hughes MD (Electronically Signed) Final Date: 13 May 2024 15:32
[2024-05-13 16:23] LABS: Glucose,Whole Blood 225 mg/dL (70-110)
[2024-05-13 20:37] LABS: Glucose,Whole Blood 211 mg/dL (70-110)
--- NOTE | 2024-05-14 01:43 | P.PN ---
Subjective Progress Note Date: 05/13/24 Patient was seen for a follow-up. Patient is laying comfortably in the bed. No further syncopal spells, or any focal symptoms. Complaining of some abdominal pain, for which I recommend patient to follow with her primary physician. Objective - Vital Signs Vital signs: Vital Signs Temp 97.8 F 05/13/24 11:40 Pulse 84 05/13/24 16:00 Resp 16 05/13/24 16:00 BP 120/75 05/13/24 16:00 Pulse Ox 95 05/13/24 16:00 FiO2 Intake & Output 05/12/24 05/13/24 05/13/24 18:59 06:59 18:59 Intake Total 330 350 Output Total 800 900 700 Balance -470 -900 -350 Weight 95.9 kg 96.1 kg Intake: Oral 330 350 Output: Urine 800 900 700 Other: Voiding Method External Catheter External Catheter External Catheter - Exam Mentation normal. Overall examination Unchanged. - Labs CBC & Chem 7: 05/13/24 06:21 05/13/24 06:21 Labs: Abnormal Lab Results - Last 24 Hours (Table) 05/12/24 05/13/24 05/13/24 Range/Units 20:14 06:03 06:21 Glucose 139 H (74-99) mg/dL POC Glucose (mg/dL) 215 H 171 H (70-110) mg/dL Total Protein 6.0 L (6.3-8.2) g/dL 05/13/24 05/13/24 Range/Units 11:22 16:21 Glucose (74-99) mg/dL POC Glucose (mg/dL) 173 H 225 H (70-110) mg/dL Total Protein (6.3-8.2) g/dL Microbiology - Last 24 Hours (Table) 05/11/24 00:30 Blood Culture - Preliminary Blood Assessment and Plan Assessment: * Syncopal spell at home, likely due to hypotension. Patient's vitals in the scene was blood pressure 60/40, which likely resulted in syncope. Patient currently is back at baseline. * Possible acute UTI. Recently treated UTI as well * Probable mild cognitive impairment * History of left-sided subdural hematoma 10/08/2023, treated conservatively. * Diarrhea * Diabetes * Paroxysmal atrial fibrillation * Hypertension * Hypothyroidism * COPD Plan: * Patient has a possible syncope from hypotension. It has resolved now. * Patient has possible UTI, currently on Levaquin. * Continue Vimpat 100 mg at bedtime. * TSH normal at 2.46, * Hemoglobin A1c 9.2. Recommend optimize control of diabetes to target A1c <7.0. * Carotid Doppler from 11/28/2023 revealed less than 50% stenosis of bilateral carotid bifurcation. Nonvisualization of the left vertebral artery. * Continue Eliquis 5 mg twice a day. * Continue Lipitor 40 mg daily. * Neurologically, no other workup indicated. * Neurologically clear. We will sign off. Please reconsult if any concerns.
[2024-05-14 02:22] VITALS: RESP 16
[2024-05-14 06:18] LABS: Glucose,Whole Blood 134 mg/dL (70-110)
[2024-05-14 10:19] VITALS: BP 127/74; PULSE 90; TEMP 98.7
[2024-05-14 11:28] LABS: Glucose,Whole Blood 200 mg/dL (70-110)
--- NOTE | 2024-05-14 11:35 | P.DS ---
Providers Date of admission: 05/10/24 19:36 Expected date of discharge: 05/14/24 Attending physician: Ermias Lopez MD Consults: 05/11/24 11:39 Consult Physician Routine Consulting Provider: Edward Hughes Consult Reason/Comments: syncope Do you want consulting provider notified?: Yes 05/11/24 11:41 Consult Physician Routine Consulting Provider: Sarthak Pino Consult Reason/Comments: syncope Do you want consulting provider notified?: Yes Primary care physician: Stated None Hospital Course: Discharge Diagnosis: Syncopal episode, suspect secondary to hypotension with possible vasovagal episode. Losartan was decreased to 25 mg daily and amlodipine was discontinued. Patient to continue with diltiazem 180 mg daily. Patient was evaluated by neurology and cardiology and cleared from their perspective. Echocardiogram was completed showing a preserved EF of 55%. Medically, patient stable for discharge at this time. Orthostatic hypotension and postural orthostatic tachycardia. Orthostatic vitals positive. Blood pressure 146/82 with heart rate 74 lying, sitting 141/85 with heart rate 99, and standing 120/70 with heart rate of 112. Losartan was decreased to 25 mg daily and amlodipine was discontinued. Patient to continue with diltiazem 180 mg daily. Acute metabolic encephalopathy, resolved. Urinary tract infection, ruled out with negative urine culture. Received 3-day course of Levaquin 750 mg daily, urine culture was negative and antibiotics discontinued at that time. Diarrhea, resolved. C. difficile was negative Lactic acidosis, resolved. Diabetes mellitus with hyperglycemia Continue heart healthy and carb consistent diet along with close monitoring of blood glucose levels and Lantus 37 units nightly. Hemoglobin A1c 9.2% Paroxysmal atrial fibrillation. Continue anticoagulation with Eliquis 5 mg twice daily and Cardizem 180 mg daily. Hypertension. Losartan was decreased to 25 mg daily and amlodipine was discontinued. Patient to continue with diltiazem 180 mg daily. Carotid artery stenosis Hyperlipidemia. Continue daily medication regimen with atorvastatin 40 mg nightly. Hypothyroidism. Continue Levothyroxine 12.5 mcg daily. TSH normal findings at 2.460. COPD, not in acute exacerbation. Continue Symbicort 2 puffs twice daily, Singulair 10 mg nightly and DuoNebs 4 times daily as needed for wheezing and/or shortness of breath. Hospital course: Patient is a very pleasant 84-year-old with a past medical history of chronic atrial fibrillation anticoagulation with Eliquis, insulin-dependent diabetes mellitus, hypertension, carotid artery stenosis, hypothyroidism, memory impairment, and recurrent UTIs. She presented to the emergency department on 05/10/2024 secondary to altered mental status with reports that patient has been having increased confusion and while using restroom she reportedly passed out p er family who notified EMS to transport her to the hospital. Upon arrival to our facility, patient underwent evaluation in the emergency department. Vital signs upon arrival show blood pressure 104/62, heart rate 89, respiratory rate 16, temp 98.0 F, and SpO2 of 95% on room air. EKG completed showing normal sinus rhythm with occasional PAC. CT head completed showing age-related atrophic and chronic small vessel ischemic changes but negative for acute intercranial process. Labs were completed and reviewed. CBC unremarkable. BMP showing mild hypocarbia with bicarb of 18 otherwise normal findings. Blood glucose was elevated at 265. Lactic acid initially 3.1. Urinalysis positive for 25 RBCs and 47 WBCs with Leukocyte Estrace. Troponin was less than 0.012. TSH 2.460. Patient was admitted under our services for syncopal episode with consult to cardiology and neurology. For suspected UTI, patient received 3-day course of Levaquin 750 mg daily, urine culture was negative and antibiotics discontinued at that time. Syncopal episode was suspected to be secondary to hypotension with possible vasovagal episode. Losartan was decreased to 25 mg daily and amlodipine was discontinued. Patient to continue with diltiazem 180 mg daily. Patient was evaluated by neurology and cardiology and cleared from their perspective. Echocardiogram was completed showing a preserved EF of 55%. Patient currently free from any complaints or concerns at this time. She is medically stable for discharge home care. Patient to follow-up outpatient with PCP in 1 to 2 days Physical exam: Vital signs reviewed and stable. General: Nontoxic, no distress and appears stated age. Derm: Skin warm and dry, normal coloration for ethnicity. Head: Atraumatic, normocephalic and symmetric. Eyes: EOMs intact, no lid lag, and anicteric sclera Mouth: no lip lesions, mucus membranes moist Cardiovascular: Regular rate and rhythm, no murmur, positive posterior tibial pulses bilaterally, and cap refill < 2 seconds. Lungs: Respirations even, regular, and unlabored on room air. Lungs CTA bilaterally, no rhonchi, no rales, no wheezing, and no accessory muscle usage. Abdominal: soft, nontender to palpation, no guarding, no appreciable organomegaly Ext: ROM intact. No gross muscle atrophy, no edema, no contractures Neuro: Speech clear, face symmetrical and CN II-XII grossly intact with no noted focal neuro deficits Psych: Alert and oriented to person, place, and time, but is a poor historian regarding events leading up to hospitalization Appropriate and pleasant affect. A total of 38 minutes of time were spent preparing this complex discharge summary. Pt was discharged on 05/14/2024 at 11:16 AM. Patient was seen independently by Nurse Practitioner. This document was prepared using [employer] dictation software. Please allow for errors in ladder operator while rare they do occur. I reviewed the documentation as provided by the MANJINDER above, who is the original author of this note. I agree with the documented assessment and plan, with the following changes: none Patient Condition at Discharge: Stable Plan - Discharge Summary Discharge Rx Participant: Yes New Discharge Prescriptions: New Losartan [Cozaar] 25 mg PO DAILY 30 Days #30 tab Pantoprazole [Protonix] 40 mg PO AC-BRKFST 30 Days #30 tab Continue Loratadine 10 mg PO HS Ferrous Sulfate [Iron (65 MG Elemental)] 325 mg PO DAILY Escitalopram [Lexapro] 20 mg PO DAILY Atorvastatin [Lipitor] 40 mg PO HS Diclofenac Sodium Gel [Voltaren 1% Gel] 1 applic TOPICAL QID PRN PRN Reason: Pain Loperamide HCl [Imodium A-D] 2 mg PO QID PRN PRN Reason: Diarrhea Ipratropium-Albuterol Nebulize [Duoneb 0.5 mg-3 mg/3 ml Soln] 3 ml INHALATION RT-QID #100 each Acetaminophen Tab [Tylenol] 650 mg PO Q6HR PRN tab PRN Reason: Mild Pain Or Fever > 100.5 Diltiazem Cd [Cardizem CD] 180 mg PO DAILY cap Omeprazole 20 mg PO HS Spiriva Respimat 1.25mcg/Actuation Mist 1 puff INHALATION RT-DAILY PRN PRN Reason: Shortness Of Breath Acetaminophen [Tylenol 8 Hour] 1,300 mg PO BID Levothyroxine Sodium [Synthroid] 12.5 mcg PO AC-BRKFST Montelukast [Singulair] 10 mg PO HS Apixaban [Eliquis] 5 mg PO BID Ipratropium-Albuterol Nebulize [Duoneb 0.5 mg-3 mg/3 ml Soln] 3 ml INHALATION RT-QID PRN PRN Reason: Shortness Of Breath Budesonide-Formot 160-4.5 Mcg [Symbicort 160-4.5 Mcg Inhaler] 2 puff INHALATION RT-BID #1 each Thiamine [Vitamin B-1] 100 mg PO DAILY tab Insulin Glargine,Hum.rec.anlog [Lantus Solostar Pen] 37 units SQ HS Lacosamide [Vimpat] 100 mg PO HS Discontinued Losartan [Cozaar] 50 mg PO DAILY #30 tab amLODIPine [Norvasc] 5 mg PO DAILY tab Discharge Medication List Acetaminophen [Tylenol 8 Hour] 1,300 mg PO BID 08/25/23 [History] Apixaban [Eliquis] 5 mg PO BID 08/25/23 [History] Atorvastatin [Lipitor] 40 mg PO HS 08/25/23 [History] Diclofenac Sodium Gel [Voltaren 1% Gel] 1 applic TOPICAL QID PRN 08/25/23 [History] Escitalopram [Lexapro] 20 mg PO DAILY 08/25/23 [History] Ferrous Sulfate [Iron (65 MG Elemental)] 325 mg PO DAILY 08/25/23 [History] Ipratropium-Albuterol Nebulize [Duoneb 0.5 mg-3 mg/3 ml Soln] 3 ml INHALATION RT-QID PRN 08/25/23 [History] Levothyroxine Sodium [Synthroid] 12.5 mcg PO AC-BRKFST 08/25/23 [History] Loperamide HCl [Imodium A-D] 2 mg PO QID PRN 08/25/23 [History] Loratadine 10 mg PO HS 08/25/23 [History] Montelukast [Singulair] 10 mg PO HS 08/25/23 [History] Budesonide-Formot 160-4.5 Mcg [Symbicort 160-4.5 Mcg Inhaler] 2 puff INHALATION RT-BID #1 each 10/28/23 [Rx] Acetaminophen Tab [Tylenol] 650 mg PO Q6HR PRN tab 11/04/23 [Rx] Ipratropium-Albuterol Nebulize [Duoneb 0.5 mg-3 mg/3 ml Soln] 3 ml INHALATION RT-QID #100 each 11/04/23 [Rx] Diltiazem Cd [Cardizem CD] 180 mg PO DAILY cap 12/09/23 [Rx] Thiamine [Vitamin B-1] 100 mg PO DAILY tab 12/09/23 [Rx] Insulin Glargine,Hum.rec.anlog [Lantus Solostar Pen] 37 units SQ HS 01/08/24 [History] Omeprazole 20 mg PO HS 01/08/24 [History] Lacosamide [Vimpat] 100 mg PO HS 05/10/24 [History] Spiriva Respimat 1.25mcg/Actuation Mist 1 puff INHALATION RT-DAILY PRN 05/10/24 [History] Losartan [Cozaar] 25 mg PO DAILY 30 Days #30 tab 05/14/24 [Rx] Pantoprazole [Protonix] 40 mg PO AC-BRKFST 30 Days #30 tab 05/14/24 [Rx] Follow up Appointment(s)/Referral(s): Edward Hughes MD [STAFF PHYSICIAN] - 1 Week (Office to call with an appointment date and time.) Arline Alvarenga III, MD [STAFF PHYSICIAN] - 05/22/24 1:30 pm (Please call and schedule patient a post discharge follow up in residency clinic prior to discharge. ) [facility] [NON-STAFF] - Patient Instructions/Handouts: Syncope (DC) Activity/Diet/Wound Care/Special Instructions: Call [facility] for transport at d/c. Activity: As tolerated. Take breaks as needed. Diet: Heart healthy and carb consistent diet. Avoid salts, or foods with hidden salts such as canned or boxed foods and frozen dinners. Extra salt makes your heart work harder and traps the fluid in your body for longer. Special Instructions: Take all of your medications as directed and remember to keep all of your doctor's appointments and follow-up as needed. Thank you for allowing us to participate in your care, it was truly a pleasure having you for our patient!!! . Discharge Disposition: HOME WITH HOME HEALTH SERVICES
== END 2024-05-14 13:35 | disposition home health service (06) | DRG 689 ==
LOC: EC 16:04 → 3SCARD 19:36
PROVIDERS: ADMIT Internal Medicine; ATTEND Internal Medicine
DX: N39.0 Urinary tract infection, site not specified (principal); G93.41 Metabolic encephalopathy; E87.20 Acidosis, unspecified; I95.1 Orthostatic hypotension; I48.0 Paroxysmal atrial fibrillation; Z87.440 Personal history of urinary (tract) infections; Z87.891 Personal history of nicotine dependence; E03.9 Hypothyroidism, unspecified; E11.65 Type 2 diabetes mellitus with hyperglycemia; E78.5 Hyperlipidemia, unspecified; I10 Essential (primary) hypertension; I65.29 Occlusion and stenosis of unspecified carotid artery; R32 Unspecified urinary incontinence; J44.9 Chronic obstructive pulmonary disease, unspecified; Z79.01 Long term (current) use of anticoagulants; Z79.4 Long term (current) use of insulin; Z79.51 Long term (current) use of inhaled steroids; Z79.890 Hormone replacement therapy; Z79.899 Other long term (current) drug therapy; Z87.828 Personal history of other (healed) physical injury and trauma; Z86.73 Personal history of transient ischemic attack (TIA), and cerebral infarction without residual deficits
CPT/HCPCS: 36415; 70450; 80048; 80053; 81001; 83036; 83605; 83735; 84443; 84484; 85025; 85027; 87040; 87086; 87324; 93005; 93306; 94640; 96365; 99285

== ENCOUNTER 2024-06-12 17:07 | Inpatient (IN) | payer MEDICARE ==
--- NOTE | 2024-06-12 17:43 | ED ---
General Adult HPI - General Chief complaint: Syncope Stated complaint: Syncope Time Seen by Provider: 06/12/24 17:10 Source: patient Mode of arrival: EMS Limitations: no limitations - History of Present Illness Initial comments: Dictation was produced using [employer] dictation software. please excuse any grammatical, word or spelling errors. Chief Complaint: 84-year-old female presents emergency department for syncopal episode History of Present Illness: Patient is 84-year-old female presents to the emergency department for syncopal episode. According to EMS patient was brought from home after having a syncopal episode on the toilet. Unclear if patient fell or not. Patient does not recall the events. According EMS patient has frequent UTIs. Patient denies any complaints except for feeling a little weak. The ROS documented in this emergency department record has been reviewed and confirmed by me. Those systems with pertinent positive or negative responses have been documented in the HPI. All other systems are other negative and/or n oncontributory. - Related Data Home Medications Medication Instructions Recorded Confirmed Acetaminophen [Tylenol 8 Hour] 1,300 mg PO BID 08/25/23 05/10/24 Apixaban [Eliquis] 5 mg PO BID 08/25/23 05/10/24 Atorvastatin [Lipitor] 40 mg PO HS 08/25/23 05/10/24 Diclofenac Sodium Gel [Voltaren 1% 1 applic TOPICAL QID PRN 08/25/23 05/10/24 Gel] Escitalopram [Lexapro] 20 mg PO DAILY 08/25/23 05/10/24 Ferrous Sulfate [Iron (65 MG 325 mg PO DAILY 08/25/23 05/10/24 Elemental)] Ipratropium-Albuterol Nebulize 3 ml INHALATION RT-QID PRN 08/25/23 05/10/24 [Duoneb 0.5 mg-3 mg/3 ml Soln] Levothyroxine Sodium [Synthroid] 12.5 mcg PO AC-BRKFST 08/25/23 05/10/24 Loperamide HCl [Imodium A-D] 2 mg PO QID PRN 08/25/23 05/10/24 Loratadine 10 mg PO HS 08/25/23 05/10/24 Montelukast [Singulair] 10 mg PO HS 08/25/23 05/10/24 Insulin Glargine,Hum.rec.anlog 37 units SQ HS 01/08/24 05/10/24 [Lantus Solostar Pen] Omeprazole 20 mg PO HS 01/08/24 05/10/24 Lacosamide [Vimpat] 100 mg PO HS 05/10/24 05/10/24 Spiriva Respimat 1.25mcg/Actuation 1 puff INHALATION RT-DAILY PRN 05/10/24 05/10/24 Mist Previous Rx's Medication Instructions Recorded Budesonide-Formot 160-4.5 Mcg 2 puff INHALATION RT-BID #1 each 10/28/23 [Symbicort 160-4.5 Mcg Inhaler] Acetaminophen Tab [Tylenol] 650 mg PO Q6HR PRN tab 11/04/23 Ipratropium-Albuterol Nebulize 3 ml INHALATION RT-QID #100 each 11/04/23 [Duoneb 0.5 mg-3 mg/3 ml Soln] Diltiazem Cd [Cardizem CD] 180 mg PO DAILY cap 12/09/23 Thiamine [Vitamin B-1] 100 mg PO DAILY tab 12/09/23 Losartan [Cozaar] 25 mg PO DAILY 30 Days #30 tab 05/14/24 Pantoprazole [Protonix] 40 mg PO AC-BRKFST 30 Days #30 tab 05/14/24 Allergies Allergy/AdvReac Type Severity Reaction Status Date / Time Penicillins Allergy Rash/Hives Verified 05/10/24 17:41 cefepime AdvReac Confusion Verified 05/10/24 17:41 Review of Systems ROS Statement: Those systems with pertinent positive or pertinent negative responses have been documented in the HPI. ROS Other: All systems not noted in ROS Statement are negative. Past Medical History Past Medical History: Atrial Fibrillation, CVA/TIA, Diabetes Mellitus, Hy pertension, Memory Impairment Additional Past Medical History / Comment(s): UTI History of Any Multi-Drug Resistant Organisms: VRE Date of last positivie culture/infection: 11/01/23 MDRO Source:: Urine Past Surgical History: Appendectomy Additional Past Surgical History / Comment(s): patient poor historian Past Anesthesia/Blood Transfusion Reactions: No Reported Reaction Past Psychological History: No Psychological Hx Reported Smoking Status: Former smoker Past Alcohol Use History: None Reported Past Drug Use History: None Reported - Past Family History Father History Unknown: Yes General Exam - General Exam Comments Initial Comments: PHYSICAL EXAM: General Impression: Alert and oriented x3, not in acute distress HEENT: Normocephalic atraumatic, extra-ocular movements intact, pupils equal and reactive to light bilaterally, mucous membranes moist. Cardiovascular: Heart regular rate and rhythm Chest: Able to complete full sentences, no retractions, no tachypnea Abdomen: abdomen soft, non-tender, non-distended, no organomegaly Musculoskeletal: Pulses present and equal in all extremities, no peripheral edema Motor: no focal deficits noted Neurological: CN II-XII grossly intact, no focal motor or sensory deficits noted Skin: Intact with no visualized rashes Psych: Normal affect and mood Limitations: no limitations Course Vital Signs 06/12/24 06/12/24 06/12/24 17:11 17:50 17:52 Temperature 98.1 F Pulse Rate 91 86 Pulse Rate [ 68 Lead Section Supervisor ] Respiratory 16 16 Rate Blood Pressure 110/60 136/86 O2 Sat by Pulse 96 98 Oximetry EKG Findings - EKG Comments: EKG Findings:: My EKG interpretation: Ventricular rate 87, sinus rhythm,. 179, QRS 80, QTc 423. No RI prolongation, no QTC prolongation, no ST or T-wave changes noted. Overall, this EKG is unremarkable Medical Decision Making - Medical Decision Making Was pt. sent in by a medical professional or institution ([facility], SALES SUPPORT TECHNICIAN, urgent care, hospital, or group home...) When possible be specific @ -No Did you speak to anyone other than the patient for history (EMS, parent, family, police, friend...)? What history was obtained from this source @ -Some history obtained from patient's guardian Lindsey at phone #[phone] states that she gets UTI often because at her home she generally urinates with a pure wick. She has frequent UTIs Did you review nursing and triage notes (agree or disagree)? Why? @ -I reviewed and agree with nursing and triage notes Were old charts reviewed (outside hosp., previous admission, EMS record, old EKG, old radiological studies, urgent care reports/EKG's, group home records)? Report findings @ -Previous microbiology results reviewed patient does not have any history of ESBL or drug-resistant UTI Differential Diagnosis (chest pain, altered mental status, abdominal pain women, abdominal pain men, vaginal bleeding, musculoskeletal, weakness, fever, dyspnea, syncope, headache, dizziness, GI bleed, back pain, seizure, CVA, palpatations, mental health)? @ -Differential Syncope: Valvular disease, hypertrophic cardiomyopathy, pulmonary embolism, tamponade, tachycardia, bradycardia, [place], hypovolemia, hemorrhage, dissection, anemia, intracranial hemorrhage, seizure, hypoglycemia, carbon monoxide poisoning, this is not meant to be an all-inclusive list. EKG interpreted by me (3pts min.). @ -As above X-rays interpreted by me (1pt min.). @ -Chest x-ray is nonacute CT interpreted by me (1pt min.). @ -None done U/S interpreted by me (1pt. min.). @ -None done What testing was considered but not performed or refused? (CT, X-rays, U/S, labs)? Why? @ -None What meds were considered but not given or refused? Why? @ -None Was smoking cessation discussed for >3mins.? @ -No Were there social determinants of health that impacted care today? How? (Homelessness, low income, unemployed, alcoholism, drug addiction, transportation, low edu. Level, literacy, decrease access to med. care, nursing home, rehab)? @ -No Was there de-escalation of care discussed even if they declined (Discuss DNR or withdrawal of care, Hospice)? DNR status @ -No What co-morbidities impacted this encounter? (DM, HTN, Smoking, COPD, CAD, Cancer, CVA, ARF, Chemo, Hep., AIDS, mental health diagnosis, sleep apnea, morbid obesity)? @ -Debility Was patient admitted / discharged? Hospital course, mention meds given and route, prescriptions, significant lab abnormalities, going to OR and other pertinent info. @ -84-year-old female presents emergency department syncopal episode. Vital signs are stable. EKG is unremarkable. Well-appearing at the bedside. Labo ratory evaluation obtained. Lactic acidosis of 3.0 glucose of 270. Greater than 182 white blood cells. Clinical presentation consistent with UTI. No septic shock identified given that patient not hypotensive and does not have a lactic acid doses of greater than 4. Levaquin will be admitted. discussed with hospitalist for admission Did you discuss the management of the patient with other professionals (professionals i.e. , PA, SALES SUPPORT TECHNICIAN, lab, RT, psych nurse, director of social services, manager machine, teacher, tourist information officer, case advocate)? Give summary @ -See above Was critical care preformed (if so, how long)? @ -No Undiagnosed new problem with uncertain prognosis? @ -No Drug Therapy requiring intensive monitoring for toxicity (Heparin, Nitro, Insulin, Cardizem)? @ -No Were any procedures done? @ -No Diagnosis/symptom? Acute, or Chronic, or Acute on Chronic? Uncomplicated (without systemic symptoms) or Complicated (systemic symptoms)? @ -UTI, complicated by lactic acidosis syncope Side effects of treatment? @ -No Exacerbation, Progression, or Severe Exacerbation? @ -No Poses a threat to life or bodily function? How? (Chest pain, [place], [place], pneumonia, PE, COPD, DKA, ARF, appy, cholecystitis, CVA, Diverticulitis, Homicidal, Suicidal, threat to staff... and all critical care pts) @ -yes - Lab Data Result diagrams: 06/12/24 17:39 06/12/24 17:39 Lab Results 06/12/24 06/12/24 06/12/24 Range/Units 17:39 17:39 17:39 WBC 6.6 (3.8-10.6) k/uL RBC 4.36 (3.80-5.40) m/uL Hgb 13.0 (11.4-16.0) gm/dL Hct 39.6 (34.0-46.0) % MCV 90.8 (80.0-100.0) fL MCH 29.8 (25.0-35.0) pg MCHC 32.8 (31.0-37.0) g/dL RDW 13.6 (11.5-15.5) % Plt Count 199 (150-450) k/uL MPV 8.8 Neutrophils % 68 % Lymphocytes % 22 % Monocytes % 6 % Eosinophils % 2 % Basophils % 1 % Neutrophils # 4.5 (1.3-7.7) k/uL Lymphocytes # 1.4 (1.0-4.8) k/uL Monocytes # 0.4 (0-1.0) k/uL Eosinophils # 0.1 (0-0.7) k/uL Basophils # 0.1 (0-0.2) k/uL Hypochromasia Slight Sodium 136 L (137-145) mmol/L Potassium 4.0 (3.5-5.1) mmol/L Chloride 107 (98-107) mmol/L Carbon Dioxide 22 (22-30) mmol/L Anion Gap 7 mmol/L BUN 12 (7-17) mg/dL Creatinine 0.73 (0.52-1.04) mg/dL Est GFR (CKD-EPI)AfAm 88 (>60 ml/min/1.73 sqM) Est GFR (CKD-EPI)NonAf 76 (>60 ml/min/1.73 sqM) Glucose 270 H (74-99) mg/dL Plasma Lactic Acid Victor Hugo 3.0 H* (0.7-2.0) mmol/L Calcium 8.7 (8.4-10.2) mg/dL Magnesium 1.6 (1.6-2.3) mg/dL Total Bilirubin 0.9 (0.2-1.3) mg/dL AST 19 (14-36) U/L ALT 13 (4-34) U/L Alkaline Phosphatase 86 (38-126) U/L Total Protein 6.0 L (6.3-8.2) g/dL Albumin 3.6 (3.5-5.0) g/dL Urine Color Urine Appearance (Clear) Urine pH (5.0-8.0) Ur Specific [place] (1.001-1.035) Urine Protein (Negative) Urine Glucose (UA) (Negative) Urine Ketones (Negative) Urine Blood (Negative) Urine Nitrite (Negative) Urine Bilirubin (Negative) Urine Urobilinogen (<2.0) mg/dL Ur Leukocyte Esterase (Negative) Urine RBC (0-5) /hpf Urine WBC (0-5) /hpf Urine WBC Clumps (None) /hpf Ur Squamous Epith Cells (0-4) /hpf Urine Bacteria (None) /hpf Urine Mucus (None) /hpf Urine Yeast (Budding) (None) /hpf 06/12/24 Range/Units 17:46 WBC (3.8-10.6) k/uL RBC (3.80-5.40) m/uL Hgb (11.4-16.0) gm/dL Hct (34.0-46.0) % MCV (80.0-100.0) fL MCH (25.0-35.0) pg MCHC (31.0-37.0) g/dL RDW (11.5-15.5) % Plt Count (150-450) k/uL MPV Neutrophils % % Lymphocytes % % Monocytes % % Eosinophils % % Basophils % % Neutrophils # (1.3-7.7) k/uL Lymphocytes # (1.0-4.8) k/uL Monocytes # (0-1.0) k/uL Eosinophils # (0-0.7) k/uL Basophils # (0-0.2) k/uL Hypochromasia Sodium (137-145) mmol/L Potassium (3.5-5.1) mmol/L Chloride (98-107) mmol/L Carbon Dioxide (22-30) mmol/L Anion Gap mmol/L BUN (7-17) mg/dL Creatinine (0.52-1.04) mg/dL Est GFR (CKD-EPI)AfAm (>60 ml/min/1.73 sqM) Est GFR (CKD-EPI)NonAf (>60 ml/min/1.73 sqM) Glucose (74-99) mg/dL Plasma Lactic Acid Victor Hugo (0.7-2.0) mmol/L Calcium (8.4-10.2) mg/dL Magnesium (1.6-2.3) mg/dL Total Bilirubin (0.2-1.3) mg/dL AST (14-36) U/L ALT (4-34) U/L Alkaline Phosphatase (38-126) U/L Total Protein (6.3-8.2) g/dL Albumin (3.5-5.0) g/dL Urine Color Colorless Urine Appearance Turbid H (Clear) Urine pH 6.0 (5.0-8.0) Ur Specific [place] 1.014 (1.001-1.035) Urine Protein Negative (Negative) Urine Glucose (UA) 2+ H (Negative) Urine Ketones Negative (Negative) Urine Blood Trace H (Negative) Urine Nitrite Negative (Negative) Urine Bilirubin Negative (Negative) Urine Urobilinogen <2.0 (<2.0) mg/dL Ur Leukocyte Esterase Large H (Negative) Urine RBC 16 H (0-5) /hpf Urine WBC >182 H (0-5) /hpf Urine WBC Clumps Many H (None) /hpf Ur Squamous Epith Cells <1 (0-4) /hpf Urine Bacteria Many H (None) /hpf Urine Mucus Rare H (None) /hpf Urine Yeast (Budding) Rare H (None) /hpf Disposition Clinical Impression: UTI (urinary tract infection) Disposition: ADMITTED IP TO THIS HOSP Condition: Fair Referrals: None,Stated [Primary Care Provider] - 1-2 days Decision Time: 18:52
[2024-06-12 18:04] LABS: Basophils # (A) 0.1 k/uL (0-0.2); Basophils % (A) 1 %; Eosinophils # (A) 0.1 k/uL (0-0.7); Eosinophils % (A) 2 %; HCT 39.6 % (34.0-46.0); Hypochromasia Slight; Lymphocytes # (A) 1.4 k/uL (1.0-4.8); Lymphocytes % (A) 22 %; MCH 29.8 pg (25.0-35.0); MCHC 32.8 g/dL (31.0-37.0); MCV 90.8 fL (80.0-100.0); Mean Platelet Volume 8.8; Monocytes # (A) 0.4 k/uL (0-1.0); Monocytes % (A) 6 %; Neutrophils # (A) 4.5 k/uL (1.3-7.7); Neutrophils % (A) 68 %; Platelet Count 199 k/uL (150-450); RBC 4.36 m/uL (3.80-5.40); RDW 13.6 % (11.5-15.5); WBC 6.6 k/uL (3.8-10.6)
--- NOTE | 2024-06-12 18:04 | XR ---
EXAMINATION TYPE: XR chest 2V DATE OF EXAM: 06/12/2024 COMPARISON: 02/25/2024 INDICATION: Syncope TECHNIQUE: Frontal and lateral views of the chest are obtained. FINDINGS: The heart size is normal. The pulmonary vasculature is normal. The lungs are clear. IMPRESSION: 1. No acute pulmonary process.
[2024-06-12 18:08] LABS: Appearance,Urine Turbid (Clear); Bacteria,Urine Many /hpf; Bilirubin,Urine Negative (Negative); Blood,Urine Trace (Negative); Budding Yeast,Urine Rare /hpf; Color,Urine Colorless; Glucose,Urine (UA) 2+ (Negative); Ketones,Urine Negative (Negative); Leukocyte Esterase,Urine Large (Negative); Mucus,Urine Rare /hpf; Nitrite,Urine Negative (Negative); Protein,Urine Negative (Negative); RBC,Urine 16 /hpf (0-5); Specific Gravity,Urine 1.014 (1.001-1.035); Squamous Epithelial Cell,Urine <1 /hpf (0-4); Urobilinogen,Urine <2.0 mg/dL (<2.0); WBC,Urine >182 /hpf (0-5)
[2024-06-12 18:11] LABS: ALT 13 U/L (4-34); AST 19 U/L (14-36); African American GFR (CKD) 88 (>60 ml/min/1.73 sqM); Albumin 3.6 g/dL (3.5-5.0); Alkaline Phosphatase 86 U/L (38-126); Anion Gap 7 mmol/L; Blood Urea Nitrogen 12 mg/dL (7-17); Calcium 8.7 mg/dL (8.4-10.2); Carbon Dioxide 22 mmol/L (22-30); Chloride 107 mmol/L (98-107); Glucose 270 mg/dL (74-99); Magnesium 1.6 mg/dL (1.6-2.3); Non-African American GFR(CKD) 76 (>60 ml/min/1.73 sqM); Sodium 136 mmol/L (137-145); Total Bilirubin 0.9 mg/dL (0.2-1.3)
[2024-06-12] MEDS: LEVOFLOXACIN 750MG-D5W PMX 750 MG in DEXTROSE/WATER 1 150ML.BAG IVPB STA (18:19)
[2024-06-12] MEDS ORDERED: NALOXONE 0.4 MG/ML 1 ML VIAL IV PRN (18:48)
[2024-06-12] MEDS: SODIUM CHLORIDE 0.9% 1,000 ML IV SCH (18:55)
[2024-06-12] MEDS: ACETAMINOPHEN TAB 325 MG TAB PO PRN (22:05)
[2024-06-13] MEDS ORDERED: DEXTROSE 50% SYRINGE 50 ML IVP PRN ×2 (06:02)
[2024-06-13 06:19] LABS: Glucose,Whole Blood 175 mg/dL (70-110)
[2024-06-13] MEDS: INSULIN DETEMIR (LEVEMIR) 100 UNIT/ML SYR SQ SCH (06:51)
[2024-06-13] MEDS: INSULIN ASPART (NovoLOG) 100 UNIT/ML VIAL SQ SCH (06:51)
[2024-06-13 11:54] LABS: Glucose,Whole Blood 159 mg/dL (70-110)
[2024-06-13] MEDS ORDERED: LOPERAMIDE 2 MG CAP PO PRN (15:06)
[2024-06-13] MEDS ORDERED: DICLOFENAC SODIUM GEL 50 GM TUBE TOPICAL PRN (15:06)
[2024-06-13] MEDS ORDERED: IPRATROPIUM-ALBUTEROL 3 ML NEB INHALATION PRN (15:06)
[2024-06-13] MEDS ORDERED: ACETAMINOPHEN TAB 325 MG TAB PO PRN (15:06)
--- NOTE | 2024-06-13 15:10 | P.HPIM ---
History of Present Illness H&P Date: 06/13/24 This is an 84-year-old female who presented to the emergency department with altered mental status and syncopal episode per ER documentation. Patient was unaware of the events and EMS was called to evaluate the patient and bring to the hospital. Patient does have history of recurrent UTIs although on exam patient denies any pain burning or frequency and is likely asymptomatic bacteriuria. Patient did receive a dose of Levaquin in the ER. Patient was admitted as patient is also feeling weak. Will have PT/OT therapy evaluate the patient. Labs reviewed and patient had a normal white count of 6.6, hemoglobin is 13.0, sodium 136, potassium 4.0, BUN 12 with a creatinine of 0.73, blood sugar mildly elevated at 270 and hemoglobin A1c is noted to be 9.1. Lactic acid elevated at 2.5 and magnesium found at 1.6 and urinalysis was performed with large leukocyte esterase and WBC although again patient is refusing and denying any pain, burning, or frequency. Patient may need rehab on discharge and will also consult social work/case management regarding this. Infectious disease was consulted and appreciate input and recommendations. Patient reports she has caregivers in the home and reports she has physicians that visit the home, although a poor historian, patient was unsure of the doctor's name. Patient is listed as no PCP currently in the computer. EKG showed sinus rhythm with a heart rate of 77 bpm, chest x-ray shows no acute pulmonary process. Patient does have history of atrial fibrillation, previous CVA/TIA, diabetes mellitus, hypertension, memory impairment, previous UTIs with VRE, and former smoker. Patient reports she lives with one of her daughters. REVIEW OF SYSTEMS: CONSTITUTIONAL: No fever, no malaise, no fatigue. HEENT: No recent visual problems or hearing problems. Denied any sore throat. CARDIOVASCULAR: No chest pain, orthopnea, PND, no palpitations, no syncope. PULMONARY: No shortness of breath, no cough, no hemoptysis. GASTROINTESTINAL: Reports of frequent diarrhea, no nausea, no vomiting, no abdominal pain. NEUROLOGICAL: No headaches, no weakness, no numbness. HEMATOLOGICAL: Denies any bleeding or petechiae. GENITOURINARY: Denies any burning micturition, frequency, or urgency. MUSCULOSKELETAL/RHEUMATOLOGICAL: Denies any joint pain, swelling, or any muscle pain. ENDOCRINE: Denies any polyuria or polydipsia. The rest of the 14-point review of systems is negative. PHYSICAL EXAMINATION: GENERAL: The patient is alert and oriented x2, appears to be baseline although somewhat confused, not in any acute distress. Well developed, well nourished. Elderly appearing, obese HEENT: Pupils are round and equally reacting to light. EOMI. No scleral icterus. No conjunctival pallor. Normocephalic, atraumatic. No pharyngeal erythema. No thyromegaly. CARDIOVASCULAR: S1 and S2 muffled, irregular PULMONARY: Diminished breath sounds bilaterally otherwise chest is clear to auscultation, no wheezing or crackles. ABDOMEN: Soft, obese, nontender, nondistended, normoactive bowel sounds. No palpable organomegaly. MUSCULOSKELETAL: No joint swelling or deformity. EXTREMITIES: No cyanosis, clubbing, or pedal edema. NEUROLOGICAL: Gross neurological examination did not reveal any focal deficits. Diffusely weak SKIN: No rashes. Assessment: Acute confusion with possible acute syncopal episode, likely metabolic encephalopathy due to lactic acidosis and fall, syncope unlikely Concerns of possible acute urinary tract infection, present on admission although suspicion is low likely asymptomatic bacteriuria as patient is denying any pain, burning, or frequency with urination. 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 Frequent falls Generalized weakness with gait dysfunction Obesity with a BMI 33.6 GI prophylaxis DVT prophylaxis Full code Plan: Patient will be continued on antibiotics and infectious disease consulted as patient has frequent urinary tract infections with resistance previously Home medications reviewed and resumed as appropriate Patient with history of diabetes recommend Accu-Cheks before meals and at bedtime along with sliding scale and diabetic diet Will have PT/OT therapy evaluate the patient and consult to case management/social work for possible ECF The impression and plan of care has been dictated by Nurse Nirav Pra ctitioner as directed. Dr. Tip MD I have performed a history and examination and MDM of this patient, discussed the same with the dictator, and agree with the dictator's assessment and plan as written ,documented as a scribe. Based on total visit time, I have performed more than 50% of the visit. Past Medical History Past Medical History: Atrial Fibrillation, CVA/TIA, Diabetes Mellitus, Hypertension, Memory Impairment Additional Past Medical History / Comment(s): UTI, falls History of Any Multi-Drug Resistant Organisms: VRE Date of last positivie culture/infection: 11/01/23 MDRO Source:: Urine Past Surgical History: Appendectomy Additional Past Surgical History / Comment(s): patient poor historian Past Anesthesia/Blood Transfusion Reactions: No Reported Reaction Past Psychological History: No Psychological Hx Reported Smoking Status: Former smoker Past Alcohol Use History: None Reported Past Drug Use History: None Reported - Past Family History Father History Unknown: Yes Medications and Allergies Home Medications Medication Instructions Recorded Confirmed Type Acetaminophen [Tylenol 8 Hour] 1,300 mg PO BID 08/25/23 06/13/24 History Apixaban [Eliquis] 5 mg PO BID 08/25/23 06/13/24 History Atorvastatin [Lipitor] 40 mg PO HS 08/25/23 06/13/24 History Diclofenac Sodium Gel [Voltaren 1% 1 applic TOPICAL QID PRN 08/25/23 06/13/24 History Gel] Escitalopram [Lexapro] 20 mg PO DAILY 08/25/23 06/13/24 History Ferrous Sulfate [Iron (65 MG 325 mg PO DAILY 08/25/23 06/13/24 History Elemental)] Ipratropium-Albuterol Nebulize 3 ml INHALATION RT-QID PRN 08/25/23 06/13/24 History [Duoneb 0.5 mg-3 mg/3 ml Soln] Levothyroxine Sodium [Synthroid] 12.5 mcg PO AC-BRKFST 08/25/23 06/13/24 History Loperamide HCl [Imodium A-D] 2 mg PO QID PRN 08/25/23 06/13/24 History Loratadine 10 mg PO HS 08/25/23 06/13/24 History Montelukast [Singulair] 10 mg PO HS 08/25/23 06/13/24 History Budesonide-Formot 160-4.5 Mcg 2 puff INHALATION RT-BID #1 each 10/28/23 06/13/24 Rx [Symbicort 160-4.5 Mcg Inhaler] Acetaminophen Tab [Tylenol] 650 mg PO Q6HR PRN tab 11/04/23 06/13/24 Rx Ipratropium-Albuterol Nebulize 3 ml INHALATION RT-QID #100 each 11/04/23 06/13/24 Rx [Duoneb 0.5 mg-3 mg/3 ml Soln] Diltiazem Cd [Cardizem CD] 180 mg PO DAILY cap 12/09/23 06/13/24 Rx Thiamine [Vitamin B-1] 100 mg PO DAILY tab 12/09/23 06/13/24 Rx Insulin Glargine,Hum.rec.anlog 37 units SQ HS 01/08/24 06/13/24 History [Lantus Solostar Pen] Omeprazole 20 mg PO HS 01/08/24 06/13/24 History Lacosamide [Vimpat] 100 mg PO HS 05/10/24 06/13/24 History Spiriva Respimat 1.25mcg/Actuation 1 puff INHALATION RT-DAILY PRN 05/10/24 06/13/24 History Mist Losartan [Cozaar] 25 mg PO DAILY 30 Days #30 tab 05/14/24 06/13/24 Rx Pantoprazole [Protonix] 40 mg PO AC-BRKFST 30 Days #30 tab 05/14/24 06/13/24 Rx Allergies Allergy/AdvReac Type Severity Reaction Status Date / Time Penicillins Allergy Rash/Hives Verified 06/13/24 10:45 cefepime AdvReac Confusion Verified 06/13/24 10:45 Physical Exam Vitals: Vital Signs Temp Pulse Pulse Resp BP BP Pulse Ox 06/13/24 08:51 98.5 F 85 18 157/76 95 06/13/24 04:00 98.9 F 83 21 153/81 95 06/13/24 00:00 98.6 F 81 16 141/85 98 06/12/24 22:00 83 18 155/76 97 06/12/24 20:00 97.8 F 74 18 126/62 96 06/12/24 17:52 68 06/12/24 17:50 86 16 136/86 98 06/12/24 17:11 98.1 F 91 16 110/60 96 Intake and Output 06/12/24 06/13/24 06/13/24 22:59 06:59 14:59 Output Total 500 Balance -500 Output: Urine 500 Other: Voiding Method External Catheter Weight 94.347 kg Results CBC & Chem 7: 06/12/24 17:39 06/12/24 17:39 Labs: Abnormal Lab Results - Last 24 Hours (Table) 06/12/24 06/12/24 06/12/24 Range/Units 17:39 17:39 17:46 Sodium 136 L (137-145) mmol/L Glucose 270 H (74-99) mg/dL POC Glucose (mg/dL) (70-110) mg/dL Plasma Lactic Acid Victor Hugo 3.0 H* (0.7-2.0) mmol/L Total Protein 6.0 L (6.3-8.2) g/dL Urine Appearance Turbid H (Clear) Urine Glucose (UA) 2+ H (Negative) Urine Blood Trace H (Negative) Ur Leukocyte Esterase Large H (Negative) Urine RBC 16 H (0-5) /hpf Urine WBC >182 H (0-5) /hpf Urine WBC Clumps Many H (None) /hpf Urine Bacteria Many H (None) /hpf Urine Mucus Rare H (None) /hpf Urine Yeast (Budding) Rare H (None) /hpf 06/12/24 06/12/24 06/13/24 Range/Units 20:53 23:37 02:42 Sodium (137-145) mmol/L Glucose (74-99) mg/dL POC Glucose (mg/dL) (70-110) mg/dL Plasma Lactic Acid Victor [place] 2.5 H* 2.5 H* 2.1 H* (0.7-2.0) mmol/L Total Protein (6.3-8.2) g/dL Urine Appearance (Clear) Urine Glucose (UA) (Negative) Urine Blood (Negative) Ur Leukocyte Esterase (Negative) Urine RBC (0-5) /hpf Urine WBC (0-5) /hpf Urine WBC Clumps (None) /hpf Urine Bacteria (None) /hpf Urine Mucus (None) /hpf Urine Yeast (Budding) (None) /hpf 06/13/24 06/13/24 Range/Units 06:16 06:18 Sodium (137-145) mmol/L Glucose (74-99) mg/dL POC Glucose (mg/dL) 175 H (70-110) mg/dL Plasma Lactic Acid Victor Hugo 2.3 H* (0.7-2.0) mmol/L Total Protein (6.3-8.2) g/dL Urine Appearance (Clear) Urine Glucose (UA) (Negative) Urine Blood (Negative) Ur Leukocyte Esterase (Negative) Urine RBC (0-5) /hpf Urine WBC (0-5) /hpf Urine WBC Clumps (None) /hpf Urine Bacteria (None) /hpf Urine Mucus (None) /hpf Urine Yeast (Budding) (None) /hpf
[2024-06-13] MEDS: DILTIAZEM CD 180 MG CAP.ER.24H PO SCH (15:29)
[2024-06-13] MEDS: ESCITALOPRAM 20 MG TAB PO SCH (15:29)
[2024-06-13] MEDS: IPRATROPIUM-ALBUTEROL 3 ML NEB INHALATION SCH (16:48)
[2024-06-13] MEDS: AZTREONAM 2 GM in SODIUM CHLORIDE 0.9% 100 ML IVPB SCH (17:00)
[2024-06-13 17:40] LABS: Glucose,Whole Blood 151 mg/dL (70-110)
[2024-06-13 20:08] LABS: Glucose,Whole Blood 170 mg/dL (70-110)
[2024-06-13] MEDS: SYMBICORT 160-4.5 MCG INHALER INHALATION SCH (20:13)
[2024-06-13] MEDS: APIXABAN 5 MG TAB PO SCH (20:14)
[2024-06-13] MEDS: MONTELUKAST 10 MG TAB PO SCH (20:14)
[2024-06-13] MEDS: LORATADINE 10 MG TAB PO SCH (20:14)
[2024-06-13] MEDS: ATORVASTATIN 40 MG TAB PO SCH (20:21)
[2024-06-13] MEDS: LACOSAMIDE 50 MG TABLET PO SCH (20:22)
[2024-06-13 21:00] LABS: Glucose,Whole Blood 182 mg/dL (70-110)
[2024-06-13] MEDS ORDERED: NON FORMULARY DRUG (Insulin Glargine,Hum.Rec.Anlog [Lantus Solostar Pen] 100 UNIT/ML Insul SQ SCH (21:00)
[2024-06-13] MEDS ORDERED: INSULIN DETEMIR (LEVEMIR) 100 UNIT/ML SYR SQ ONE (22:41)
[2024-06-14 07:50] LABS: Glucose,Whole Blood 151 mg/dL (70-110)
[2024-06-14] MEDS: FERROUS SULFATE 325 MG TAB PO SCH (09:13)
[2024-06-14] MEDS: THIAMINE 100 MG TAB PO SCH (09:13)
[2024-06-14] MEDS: LOSARTAN 25 MG TAB PO SCH (09:14)
[2024-06-14] MEDS: PANTOPRAZOLE 40 MG TABLET PO SCH (09:14)
--- NOTE | 2024-06-14 09:52 | P.CONS ---
History of Present Illness - Reason for Consult Consult date: 06/13/24 UTI, mental status changes multiple antibiotic allergies Requesting physician: Dulce Fox - Chief Complaint Mental status changes, lower abdominal pain x few days - History of Present Illness Patient is 84-year-old female with a past medical history significant for diabetes mellitus hypertension CVA TIA atrial fibrillation patient was brought into the hospital concerning for a syncopal episode apparently the patient has symptoms happen when she was on the toilet unclear if she fell or not also complaining of lower abdominal pain mostly dull aching mild to moderate intensity without radiation independent did have some diarrhea and urinary symptoms patient was evaluated on presentation to the hospital patient was afebrile and a few have been recorded subsequently patient was not tachycardic hypotensive or hypoxic patient did have white count of 6.6 creatinine 0.73 lactic acid was mildly elevated 2.5 liver enzymes are normal did have significantly positive UA with large leukocyte Estrace more than 182 WBC many bacteria patient did have multiple antibiotic allergies did receive a dose of Levaquin infectious disease was consulted for further management of antibiotics chest x-ray was negative for acute pulmonary process Review of Systems Positive point and negatives has been mentioned in the HPI, complete review of systems was performed and all other systems are negative Past Medical History Past Medical History: Atrial Fibrillation, CVA/TIA, Diabetes Mellitus, Hypertens ion, Memory Impairment Additional Past Medical History / Comment(s): UTI, falls History of Any Multi-Drug Resistant Organisms: VRE Year Discovered:: 11/01/23 MDRO Source:: Urine Past Surgical History: Appendectomy Additional Past Surgical History / Comment(s): patient poor historian Past Anesthesia/Blood Transfusion Reactions: No Reported Reaction Past Psychological History: No Psychological Hx Reported Smoking Status: Former smoker Past Alcohol Use History: None Reported Past Drug Use History: None Reported - Past Family History Father History Unknown: Yes Medications and Allergies Home Medications Medication Instructions Recorded Confirmed Type Acetaminophen [Tylenol 8 Hour] 1,300 mg PO BID 08/25/23 06/13/24 History Apixaban [Eliquis] 5 mg PO BID 08/25/23 06/13/24 History Atorvastatin [Lipitor] 40 mg PO HS 08/25/23 06/13/24 History Diclofenac Sodium Gel [Voltaren 1% 1 applic TOPICAL QID PRN 08/25/23 06/13/24 History Gel] Escitalopram [Lexapro] 20 mg PO DAILY 08/25/23 06/13/24 History Ferrous Sulfate [Iron (65 MG 325 mg PO DAILY 08/25/23 06/13/24 History Elemental)] Ipratropium-Albuterol Nebulize 3 ml INHALATION RT-QID PRN 08/25/23 06/13/24 History [Duoneb 0.5 mg-3 mg/3 ml Soln] Levothyroxine Sodium [Synthroid] 12.5 mcg PO AC-BRKFST 08/25/23 06/13/24 History Loperamide HCl [Imodium A-D] 2 mg PO QID PRN 08/25/23 06/13/24 History Loratadine 10 mg PO HS 08/25/23 06/13/24 History Montelukast [Singulair] 10 mg PO HS 08/25/23 06/13/24 History Budesonide-Formot 160-4.5 Mcg 2 puff INHALATION RT-BID #1 each 10/28/23 06/13/24 Rx [Symbicort 160-4.5 Mcg Inhaler] Acetaminophen Tab [Tylenol] 650 mg PO Q6HR PRN tab 11/04/23 06/13/24 Rx Ipratropium-Albuterol Nebulize 3 ml INHALATION RT-QID #100 each 11/04/23 06/13/24 Rx [Duoneb 0.5 mg-3 mg/3 ml Soln] Diltiazem Cd [Cardizem CD] 180 mg PO DAILY cap 12/09/23 06/13/24 Rx Thiamine [Vitamin B-1] 100 mg PO DAILY tab 12/09/23 06/13/24 Rx Insulin Glargine,Hum.rec.anlog 37 units SQ HS 01/08/24 06/13/24 History [Lantus Solostar Pen] Omeprazole 20 mg PO HS 01/08/24 06/13/24 History Lacosamide [Vimpat] 100 mg PO HS 05/10/24 06/13/24 History Spiriva Respimat 1.25mcg/Actuation 1 puff INHALATION RT-DAILY PRN 05/10/24 06/13/24 History Mist Losartan [Cozaar] 25 mg PO DAILY 30 Days #30 tab 05/14/24 06/13/24 Rx Pantoprazole [Protonix] 40 mg PO AC-BRKFST 30 Days #30 tab 05/14/24 06/13/24 Rx Allergies Allergy/AdvReac Type Severity Reaction Status Date / Time Penicillins Allergy Rash/Hives Verified 06/13/24 10:45 cefepime AdvReac Confusion Verified 06/13/24 10:45 Physical Exam Vitals: Vital Signs Temp Pulse Pulse Resp BP BP Pulse Ox 06/13/24 08:51 98.5 F 85 18 157/76 95 06/13/24 04:00 98.9 F 83 21 153/81 95 06/13/24 00:00 98.6 F 81 16 141/85 98 06/12/24 22:00 83 18 155/76 97 06/12/24 20:00 97.8 F 74 18 126/62 96 06/12/24 17:52 68 06/12/24 17:50 86 16 136/86 98 06/12/24 17:11 98.1 F 91 16 110/60 96 Intake and Output 06/12/24 06/13/24 06/13/24 22:59 06:59 14:59 Output Total 500 Balance -500 Output: Urine 500 Other: Voiding Method External Catheter Weight 94.347 kg GENERAL DESCRIPTION: Elderly female lying in bed, no distress. No tachypnea or accessory muscle of respiration use. HEENT: Shows Pallor , no scleral icterus. Oral mucous membrane is dry. No pharyngeal erythema or thrush NECK: Trachea central, no thyromegaly. LUNGS: Unlabored breathing. Clear to auscultation anteriorly. No wheeze or crackle. HEART: S1, S2, regular rate and rhythm. No loud murmur ABDOMEN: Soft, no tenderness , guarding or rigidity, no organomegaly EXTREMITIES: No edema of feet. SKIN: No rash, no masses palpable. NEUROLOGICAL: The patient is awake, alert, oriented x3, mood and affect normal. Results CBC & Chem 7: 06/12/24 17:39 06/12/24 17:39 Labs: Abnormal Lab Results - Last 24 Hours (Table) 06/12/24 06/12/24 06/12/24 Range/Units 17:39 17:39 17:46 Sodium 136 L (137-145) mmol/L Glucose 270 H (74-99) mg/dL POC Glucose (mg/dL) (70-110) mg/dL Hemoglobin A1c (<=6.0) % Plasma Lactic Acid Victor Hugo 3.0 H* (0.7-2.0) mmol/L Total Protein 6.0 L (6.3-8.2) g/dL Urine Appearance Turbid H (Clear) Urine Glucose (UA) 2+ H (Negative) Urine Blood Trace H (Negative) Ur Leukocyte Esterase Large H (Negative) Urine RBC 16 H (0-5) /hpf Urine WBC >182 H (0-5) /hpf Urine WBC Clumps Many H (None) /hpf Urine Bacteria Many H (None) /hpf Urine Mucus Rare H (None) /hpf Urine Yeast (Budding) Rare H (None) /hpf 06/12/24 06/12/24 06/13/24 Range/Units 20:53 23:37 02:42 Sodium (137-145) mmol/L Glucose (74-99) mg/dL POC Glucose (mg/dL) (70-110) mg/dL Hemoglobin A1c (<=6.0) % Plasma Lactic Acid Victor Hugo 2.5 H* 2.5 H* 2.1 H* (0.7-2.0) mmol/L Total Protein (6.3-8.2) g/dL Urine Appearance (Clear) Urine Glucose (UA) (Negative) Urine Blood (Negative) Ur Leukocyte Esterase (Negative) Urine RBC (0-5) /hpf Urine WBC (0-5) /hpf Urine WBC Clumps (None) /hpf Urine Bacteria (None) /hpf Urine Mucus (None) /hpf Urine Yeast (Budding) (None) /hpf 06/13/24 06/13/24 06/13/24 Range/Units 06:16 06:16 06:18 Sodium (137-145) mmol/L Glucose (74-99) mg/dL POC Glucose (mg/dL) 175 H (70-110) mg/dL Hemoglobin A1c 9.1 H (<=6.0) % Plasma Lactic Acid Victor Hugo 2.3 H* (0.7-2.0) mmol/L Total Protein (6.3-8.2) g/dL Urine Appearance (Clear) Urine Glucose (UA) (Negative) Urine Blood (Negative) Ur Leukocyte Esterase (Negative) Urine RBC (0-5) /hpf Urine WBC (0-5) /hpf Urine WBC Clumps (None) /hpf Urine Bacteria (None) /hpf Urine Mucus (None) /hpf Urine Yeast (Budding) (None) /hpf Assessment and Plan (1) Allergy to multiple antibiotics Current Visit: Yes Status: Acute Code(s): Z88.1 - ALLERGY STATUS TO OTHER ANTIBIOTIC AGENTS SNOMED Code(s): 777199184 (2) UTI (urinary tract infection) Current Visit: Yes Status: Acute Code(s): N39.0 - URINARY TRACT INFECTION, SITE NOT SPECIFIED SNOMED Code(s): 73856302 Plan: 1patient presented to hospital with weakness syncopal episode suprapubic discomfort urinary symptoms and recently did have diarrhea respective for UTI with significantly positive UA likely symptomatic urinary tract infection. 2patient with both penicillin and cefepime allergy limiting the number of antibiotics even to use. 3we will start the patient on Azactam 2 g every 12 while waiting for the culture to finalize. We will follow on clinical condition and cultures to further adjust medication if needed Thank you for this consultation we will follow the patient along with you Dictation was produced using [employer] dictation software. please excuse any grammatical, word or spelling errors. Time with Patient: Greater than 30
[2024-06-14 11:08] LABS: Basophils # (A) 0.06 X 10*3/uL (0.00-0.10); Eosinophils % (A) 1.6 %; HGB 12.8 g/dL (12.0-15.0); Lymphocytes # (A) 1.73 X 10*3/uL (0.90-5.00); Lymphocytes % (A) 28.4 %; MCH 28.7 pg (27.0-32.0); MCV 89.7 FL (80.0-97.0); Mean Platelet Volume 11.3 FL (9.5-12.2); Monocytes % (A) 8.2 %; NRBC Per 100 WBC 0 X 10*3/uL (0.00-0.01); Neutrophils # (A) 3.68 X 10*3/uL (1.80-7.70); Neutrophils % (A) 60.3 %; Platelet Count 179 X 10*3/uL (140-440); RBC 4.46 X 10*6/uL (4.10-5.20); RDW 13.2 % (11.5-14.5)
[2024-06-14 11:12] LABS: BUN/Creat Ratio 10.57 Ratio (12.00-20.00); Blood Urea Nitrogen 7.4 mg/dL (9.0-27.0); Calcium 8.4 mg/dL (8.7-10.3); Carbon Dioxide 22.3 mmol/L (21.6-31.8); Chloride 107 mmol/L (96-109); Glucose 159 mg/dL (70-110); Magnesium 1.8 mg/dL (1.5-2.4); Potassium 4.3 mmol/L (3.5-5.5); Sodium 142 mmol/L (135-145)
[2024-06-14 11:58] LABS: Glucose,Whole Blood 200 mg/dL (70-110)
[2024-06-14] MEDS: LEVOTHYROXINE 25 MCG TAB PO SCH (12:15)
[2024-06-14 14:04] VITALS: BMI 21.5
--- NOTE | 2024-06-14 15:44 | P.PN ---
Subjective Progress Note Date: 06/14/24 Principal diagnosis: Reason for follow-up is symptomatic urinary tract infection Patient is 84-year-old female with a past medical history significant for diabetes mellitus hypertension CVA TIA atrial fibrillation patient was brought into the hospital concerning for weakness syncopal episode he did have a positive UA concerning for symptomatic urinary tract infection. On today's evaluation that is 06/14/2024, patient has been afebrile, patient is breathing comfortably and is currently on room air, patient denies having any significant cough no chest pain shortness of breath, patient denies nausea vomiting or diarrhea and no abdominal pain Patient did have white count 6.10, creatinine 0.7 cultures currently pending Objective - Vital Signs Vital signs: Vital Signs Temp 97.4 F L 06/14/24 11:53 Pulse 80 06/14/24 12:13 Resp 20 06/14/24 11:53 BP 109/75 06/14/24 11:53 Pulse Ox 95 06/14/24 11:53 FiO2 Intake & Output 06/13/24 06/14/24 06/14/24 18:59 06:59 18:59 Output Total 800 900 Balance -800 -900 Weight 60.5 kg 60.5 kg Output: Urine 800 900 Other: Voiding Method External Catheter - Exam GENERAL DESCRIPTION: An elderly female up in the chair in no distress RESPIRATORY SYSTEM: Unlabored breathing , decreased breath sounds at bases HEART: S1 S2 regular rate and rhythm , ABDOMEN: Soft , no tenderness EXTREMITIES: No edema feet - Labs CBC & Chem 7: 06/14/24 07:32 06/14/24 07:32 Labs: Abnormal Lab Results - Last 24 Hours (Table) 06/13/24 06/13/24 06/13/24 Range/Units 17:39 20:07 20:58 Anion Gap (4.00-12.00) mmol/L BUN (9.0-27.0) mg/dL BUN/Creatinine Ratio (12.00-20.00) Ratio Glucose (70-110) mg/dL POC Glucose (mg/dL) 151 H 170 H 182 H (70-110) mg/dL Calcium (8.7-10.3) mg/dL 06/14/24 06/14/24 06/14/24 Range/Units 07:32 07:44 11:56 Anion Gap 12.70 H (4.00-12.00) mmol/L BUN 7.4 L (9.0-27.0) mg/dL BUN/Creatinine Ratio 10.57 L (12.00-20.00) Ratio Glucose 159 H (70-110) mg/dL POC Glucose (mg/dL) 151 H 200 H (70-110) mg/dL Calcium 8.4 L (8.7-10.3) mg/dL Assessment and Plan (1) Allergy to multiple antibiotics Current Visit: Yes Status: Acute Code(s): Z88.1 - ALLERGY STATUS TO OTHER ANTIBIOTIC AGENTS SNOMED Code(s): 277617197 (2) UTI (urinary tract infection) Current Visit: Yes Status: Acute Code(s): N39.0 - URINARY TRACT INFECTION, SITE NOT SPECIFIED SNOMED Code(s): 25694912 Plan: 1patient presented to hospital with weakness syncopal episode suprapubic discomfort urinary symptoms and recently did have diarrhea respective for UTI with significantly positive UA likely symptomatic urinary tract infection. 2patient with both penicillin and cefepime allergy limiting the number of antibiotics even to use. 3patient to continue with Azactam 2 g every 12 while waiting for the culture to finalize. Dictation was produced using [employer] dictation software. please excuse any grammatical, word or spelling errors. Time with Patient: Less than 30
[2024-06-14 17:12] LABS: Glucose,Whole Blood 230 mg/dL (70-110)
[2024-06-14 20:13] LABS: Glucose,Whole Blood 281 mg/dL (70-110)
[2024-06-14] MEDS: INSULIN ASPART (NovoLOG) 100 UNIT/ML VIAL SQ SCH (21:54)
--- NOTE | 2024-06-15 06:01 | P.PN ---
Subjective Progress Note Date: 06/14/24 This is an 84-year-old female who presented to the emergency department with altered mental status and syncopal episode per ER documentation. Patient was unaware of the events and EMS was called to evaluate the patient and bring to the hospital. Patient does have history of recurrent UTIs although on exam patient denies any pain burning or frequency and is likely asymptomatic bacteriuria. Patient did receive a dose of Levaquin in the ER. Patient was admitted as patient is also feeling weak. Will have PT/OT therapy evaluate the patient. Labs reviewed and patient had a normal white count of 6.6, hemoglobin is 13.0, sodium 136, potassium 4.0, BUN 12 with a creatinine of 0.73, blood sugar mildly elevated at 270 and hemoglobin A1c is noted to be 9.1. Lactic acid elevated at 2.5 and magnesium found at 1.6 and urinalysis was performed with large leukocyte esterase and WBC although again patient is refusing and denying any pain, burning, or frequency. Patient may need rehab on discharge and will also consult social work/case management regarding this. Infectious disease was consulted and appreciate input and recommendations. Patient reports she has caregivers in the home and reports she has physicians that visit the home, although a poor historian, patient was unsure of the doctor's name. Patient is listed as no PCP currently in the computer. EKG showed sinus rhythm with a hear t rate of 77 bpm, chest x-ray shows no acute pulmonary process. Patient does have history of atrial fibrillation, previous CVA/TIA, diabetes mellitus, hypertension, memory impairment, previous UTIs with VRE, and former smoker. Patient reports she lives with one of her daughters. 06/14/2024 Patient is seen in follow-up this morning currently sitting up in the chair working with physical therapy as patient continues to be significantly weak. Case management consulted as patient reports she would like to go to [facility] for continued PT/OT therapy. Patient does have a legal guardian and there are concerns patient has no rehab days left and will plan for home with home care as patient reportedly lives with her daughter who is her caregiver. Patient is maintained on antibiotics with infectious disease following while awaiting urine culture. Patient denies any pain or burning or frequency with urination. Patient's mentation is improved. Review of systems: Constitutional: No reports of fatigue, fever, or chills Cardiovascular: No reports of chest pain or palpitations Respiratory: No reports of shortness of breath or cough GI: No reports of nausea, vomiting, or diarrhea : No reports of dysuria or retention Neurovascular: reports of generalized weakness and difficulty ambulating All medications have been reviewed PHYSICAL EXAMINATION: GENERAL: The patient is alert and oriented x2, sitting up in the chair, appears to be baseline and mentation has improved, not in any acute distress. Well developed, well nourished. Elderly appearing, obese HEENT: Pupils are round and equally reacting to light. EOMI. No scleral icterus. No conjunctival pallor. Normocephalic, atraumatic. No pharyngeal erythema. No thyromegaly. CARDIOVASCULAR: S1 and S2 muffled, irregular PULMONARY: Diminished breath sounds bilaterally otherwise chest is clear to auscultation, no wheezing or crackles. ABDOMEN: Soft, obese, nontender, nondistended, normoactive bowel sounds. No palpable organomegaly. MUSCULOSKELETAL: No joint swelling or deformity. EXTREMITIES: No cyanosis, clubbing, or pedal edema. NEUROLOGICAL: Gross neurological examination did not reveal any focal deficits. Diffusely weak SKIN: No rashes. Assessment: Acute confusion with possible acute syncopal episode, likely metabolic encephalopathy due to lactic acidosis and fall, syncope unlikely Concerns of possible acute urinary tract infection, present on admission although suspicion is low likely asymptomatic bacteriuria as patient is denying any pain, burning, or frequency with urination. 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 Currently awaiting urine culture Home medications reviewed and resumed as appropriate Patient with history of diabetes recommend Accu-Cheks before meals and at bedtime along with sliding scale and diabetic diet. Adjust insulins accordingly PT/OT therapy to evaluate the patient with possible need for ECF. Case management following and there is concerns patient has no rehab days left. Referral sent and pending as patient would like to go to [facility]. Will follow-up on repeat labs and continue to monitor closely Encouraged increase activity as tolerated The impression and plan of care has been dictated by Dulce Fox, Nurse Practitioner as directed. Dr. Tip MD I have performed a history and examination and MDM of this patient, discussed the same with the dictator, and agree with the dictator's assessment and plan as written ,documented as a scribe. Based on total visit time, I have performed more than 50% of the visit. Objective - Vital Signs Vital signs: Vital Signs Temp 97.5 F L 06/15/24 02:00 Pulse 84 06/15/24 02:00 Resp 16 06/15/24 02:00 BP 124/72 06/15/24 02:00 Pulse Ox 93 L 06/15/24 02:00 FiO2 Intake & Output 06/14/24 06/14/24 06/15/24 06:59 18:59 06:59 Intake Total 590 Output Total 800 1200 Balance -800 -1200 590 Weight 60.5 kg 60.5 kg Intake: Oral 590 Output: Urine 800 1200 Other: Voiding Method External Catheter External Catheter - Labs CBC & Chem 7: 06/14/24 07:32 06/14/24 07:32 Labs: Abnormal Lab Results - Last 24 Hours (Table) 06/14/24 06/14/24 06/14/24 Range/Units 07:32 07:44 11:56 Anion Gap 12.70 H (4.00-12.00) mmol/L BUN 7.4 L (9.0-27.0) mg/dL BUN/Creatinine Ratio 10.57 L (12.00-20.00) Ratio Glucose 159 H (70-110) mg/dL POC Glucose (mg/dL) 151 H 200 H (70-110) mg/dL Calcium 8.4 L (8.7-10.3) mg/dL 06/14/24 06/14/24 Range/Units 17:11 20:12 Anion Gap (4.00-12.00) mmol/L BUN (9.0-27.0) mg/dL BUN/Creatinine Ratio (12.00-20.00) Ratio Glucose (70-110) mg/dL POC Glucose (mg/dL) 230 H 281 H (70-110) mg/dL Calcium (8.7-10.3) mg/dL
[2024-06-15 07:22] LABS: Glucose,Whole Blood 178 mg/dL (70-110)
[2024-06-15 11:30] LABS: BUN/Creat Ratio 19.89 Ratio (12.00-20.00); Blood Urea Nitrogen 17.9 mg/dL (9.0-27.0); Calcium 8.2 mg/dL (8.7-10.3); Carbon Dioxide 23.4 mmol/L (21.6-31.8); Chloride 107 mmol/L (96-109); Glucose 169 mg/dL (70-110); Potassium 4.4 mmol/L (3.5-5.5); Sodium 141 mmol/L (135-145)
[2024-06-15 12:43] LABS: Glucose,Whole Blood 184 mg/dL (70-110)
--- NOTE | 2024-06-15 12:55 | P.PN ---
Subjective Progress Note Date: 06/15/24 Principal diagnosis: Reason for follow-up is symptomatic urinary tract infection Patient is 84-year-old female with a past medical history significant for diabetes mellitus hypertension CVA TIA atrial fibrillation patient was brought into the hospital concerning for weakness syncopal episode he did have a positive UA concerning for symptomatic urinary tract infection. On today's evaluation that is 06/15/2024, Patient is afebrile this morning patient denies having any chest pain shortness of breath or cough, the patient is breathing comfortably and currently on room air, patient denies any abdominal pain no diarrhea no nausea no vomiting, no new symptoms. Patient denied creatinine 0.9 cultures currently pending Objective - Vital Signs Vital signs: Vital Signs Temp 97.7 F 06/15/24 07:46 Pulse 84 06/15/24 11:30 Resp 18 06/15/24 07:46 BP 136/79 06/15/24 07:46 Pulse Ox 96 06/15/24 07:46 FiO2 Intake & Output 06/14/24 06/15/24 06/15/24 18:59 06:59 18:59 Intake Total 590 Output Total 1200 200 Balance -1200 590 -200 Weight 60.5 kg 92.5 kg Intake: Oral 590 Output: Urine 1200 200 Other: Voiding Method External Catheter External Catheter External Catheter - Exam GENERAL DESCRIPTION: An elderly female up in the chair in no distress RESPIRATORY SYSTEM: Unlabored breathing , decreased breath sounds at bases HEART: S1 S2 regular rate and rhythm , ABDOMEN: Soft , no tenderness EXTREMITIES: No edema feet - Labs CBC & Chem 7: 06/14/24 07:32 06/15/24 06:37 Labs: Abnormal Lab Results - Last 24 Hours (Table) 06/14/24 06/14/24 06/15/24 Range/Units 17:11 20:12 06:37 Glucose 169 H (70-110) mg/dL POC Glucose (mg/dL) 230 H 281 H (70-110) mg/dL Calcium 8.2 L (8.7-10.3) mg/dL 06/15/24 06/15/24 Range/Units 07:11 12:23 Glucose (70-110) mg/dL POC Glucose (mg/dL) 178 H 184 H (70-110) mg/dL Calcium (8.7-10.3) mg/dL Assessment and Plan (1) Allergy to multiple antibiotics Current Visit: Yes Status: Acute Code(s): Z88.1 - ALLERGY STATUS TO OTHER ANTIBIOTIC AGENTS SNOMED Code(s): 208250057 (2) UTI (urinary tract infection) Current Visit: Yes Status: Acute Code(s): N39.0 - URINARY TRACT INFECTION, SITE NOT SPECIFIED SNOMED Code(s): 01850715 Plan: 1patient presented to hospital with weakness syncopal episode suprapubic discomfort urinary symptoms and recently did have diarrhea respective for UTI with significantly positive UA likely symptomatic urinary tract infection. 2patient with both penicillin and cefepime allergy limiting the number of antibiotics even to use. 3patient seem to have some clinical improvement will continue with Azactam while waiting for the culture to finalize. Dictation was produced using [employer] dictation software. please excuse any grammatical, word or spelling errors. Time with Patient: Less than 30
--- NOTE | 2024-06-15 15:53 | P.PN ---
Subjective Progress Note Date: 06/15/24 This is an 84-year-old female who presented to the emergency department with altered mental status and syncopal episode per ER documentation. Patient was unaware of the events and EMS was called to evaluate the patient and bring to the hospital. Patient does have history of recurrent UTIs although on exam patient denies any pain burning or frequency and is likely asymptomatic bacteriuria. Patient did receive a dose of Levaquin in the ER. Patient was admitted as patient is also feeling weak. Will have PT/OT therapy evaluate the patient. Labs reviewed and patient had a normal white count of 6.6, hemoglobin is 13.0, sodium 136, potassium 4.0, BUN 12 with a creatinine of 0.73, blood sugar mildly elevated at 270 and hemoglobin A1c is noted to be 9.1. Lactic acid elevated at 2.5 and magnesium found at 1.6 and urinalysis was performed with large leukocyte esterase and WBC although again patient is refusing and denying any pain, burning, or frequency. Patient may need rehab on discharge and will also consult social work/case management regarding this. Infectious disease was consulted and appreciate input and recommendations. Patient reports she has caregivers in the home and reports she has physicians that visit the home, although a poor historian, patient was unsure of the doctor's name. Patient is listed as no PCP currently in the computer. EKG showed sinus rhythm with a heart rate of 77 bpm, chest x-ray shows no acute pulmonary process. Patient does have history of atrial fibrillation, previous CVA/TIA, diabetes mellitus, hypertension, memory impairment, previous UTIs with VRE, and former smoker. Patient reports she lives with one of her daughters. 06/14/2024 Patient is seen in follow-up this morning currently sitting up in the chair working with physical therapy as patient continues to be significantly weak. Case management consulted as patient reports she would like to go to [facility] for continued PT/OT therapy. Patient does have a legal guardian and there are concerns patient has no rehab days left and will plan for home with home care as patient reportedly lives with her daughter who is her caregiver. Patient is maintained on antibiotics with infectious disease following while awaiting urine culture. Patient denies any pain or burning or frequency with urination. Patient's mentation is improved. 06/15/2024 Patient is evaluated today in follow up. Patient has no acute complaints today. A urine culture was done today and pending. Continues on IV Aztreonam. Review of systems: Constitutional: No reports of fatigue, fever, or chills Cardiovascular: No reports of chest pain or palpitations Respiratory: No reports of shortness of breath or cough GI: No reports of nausea, vomiting, or diarrhea : No reports of dysuria or retention Neurovascular: reports of generalized weakness and difficulty ambulating All medications have been reviewed PHYSICAL EXAMINATION: GENERAL: The patient is alert and oriented x2, sitting up in the chair, appears to be baseline and mentation has improved, not in any acute distress. Well developed, well nourished. Elderly appearing, obese HEENT: Pupils are round and equally reacting to light. EOMI. No scleral icterus. No conjunctival pallor. Normocephalic, atraumatic. No pharyngeal erythema. No thyromegaly. CARDIOVASCULAR: S1 and S2 muffled, irregular PULMONARY: Diminished breath sounds bilaterally otherwise chest is clear to auscultation, no wheezing or crackles. ABDOMEN: Soft, obese, nontender, nondistended, normoactive bowel sounds. No palpable organomegaly. MUSCULOSKELETAL: No joint swelling or deformity. EXTREMITIES: No cyanosis, clubbing, or pedal edema. NEUROLOGICAL: Gross neurological examination did not reveal any focal deficits. Diffusely weak SKIN: No rashes. Assessment: Acute confusion with possible acute syncopal episode, likely metabolic encephalopathy due to lactic acidosis and fall, syncope unlikely Concerns of possible acute urinary tract infection, present on admission although suspicion is low likely asymptomatic bacteriuria as patient is denying any pain, burning, or frequency with urination. 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 Currently awaiting urine culture Home medications reviewed and resumed as appropriate Patient with history of diabetes recommend Accu-Cheks before meals and at bedtime along with sliding scale and diabetic diet. Adjust insulins accordingly PT/OT therapy to evaluate the patient with possible need for ECF. Case management following and there is concerns patient has no rehab days left. Referral sent and pending as patient would like to go to [facility]. Will follow-up on repeat labs and continue to monitor closely Encouraged increase activity as tolerated The impression and plan of care has been dictated by Aracelis Hampton Nurse Practitioner as directed. Dr. Tip MD I have performed a history and examination and MDM of this patient, discussed the same with the dictator, and agree with the dictator's assessment and plan as written ,documented as a scribe. Based on total visit time, I have performed more than 50% of the visit. Objective - Vital Signs Vital signs: Vital Signs Temp 97.7 F 06/15/24 13:05 Pulse 97 06/15/24 13:05 Resp 18 06/15/24 13:05 BP 119/76 06/15/24 13:05 Pulse Ox 92 L 06/15/24 13:05 FiO2 Intake & Output 06/14/24 06/15/24 06/15/24 18:59 06:59 18:59 Intake Total 590 Output Total 1200 200 Balance -1200 590 -200 Weight 60.5 kg 92.5 kg Intake: Oral 590 Output: Urine 1200 200 Other: Voiding Method External Catheter External Catheter External Catheter - Labs CBC & Chem 7: 06/14/24 07:32 06/15/24 06:37 Labs: Abnormal Lab Results - Last 24 Hours (Table) 06/14/24 06/14/24 06/15/24 Range/Units 17:11 20:12 06:37 Glucose 169 H (70-110) mg/dL POC Glucose (mg/dL) 230 H 281 H (70-110) mg/dL Calcium 8.2 L (8.7-10.3) mg/dL 06/15/24 06/15/24 Range/Units 07:11 12:23 Glucose (70-110) mg/dL POC Glucose (mg/dL) 178 H 184 H (70-110) mg/dL Calcium (8.7-10.3) mg/dL Assessment and Plan Time with Patient: Less than 30
[2024-06-15 17:24] LABS: Glucose,Whole Blood 253 mg/dL (70-110)
[2024-06-15] MEDS: AZTREONAM 2 GM in SODIUM CHLORIDE 0.9% 100 ML IVPB SCH (20:26)
[2024-06-15 20:36] LABS: Glucose,Whole Blood 208 mg/dL (70-110)
[2024-06-16 07:39] LABS: Glucose,Whole Blood 134 mg/dL (70-110)
[2024-06-16 12:36] LABS: Glucose,Whole Blood 258 mg/dL (70-110)
[2024-06-16 17:26] LABS: Glucose,Whole Blood 139 mg/dL (70-110)
[2024-06-16 19:59] LABS: Glucose,Whole Blood 237 mg/dL (70-110)
--- NOTE | 2024-06-16 21:20 | P.PN ---
Subjective Progress Note Date: 06/16/24 Principal diagnosis: Reason for follow-up is symptomatic urinary tract infection Patient is 84-year-old female with a past medical history significant for diabetes mellitus hypertension CVA TIA atrial fibrillation patient was brought into the hospital concerning for weakness syncopal episode he did have a positive UA concerning for symptomatic urinary tract infection. On today's evaluation that is 06/16/2024,the patient denies any fever or any chills, patient is breathing comfortably on room air, the patient denies chest pain shortness of breath and no significant cough, patient denies abdominal pain, no nausea vomiting or diarrhea. No new lab has been obtained today urine culture pending Objective - Vital Signs Vital signs: Vital Signs Temp 98.5 F 06/16/24 01:53 Pulse 66 06/16/24 01:53 Resp 18 06/16/24 01:53 BP 127/72 06/16/24 01:53 Pulse Ox 92 L 06/16/24 01:53 FiO2 Intake & Output 06/15/24 06/16/24 06/16/24 18:59 06:59 18:59 Intake Total 540 Output Total 900 800 Balance -360 -800 Intake: Oral 540 Output: Urine 900 800 Other: Voiding Method External Catheter External Catheter - Exam GENERAL DESCRIPTION: An elderly female up in the chair in no distress RESPIRATORY SYSTEM: Unlabored breathing , decreased breath sounds at bases HEART: S1 S2 regular rate and rhythm , ABDOMEN: Soft , no tenderness EXTREMITIES: No edema feet - Labs CBC & Chem 7: 06/14/24 07:32 06/15/24 06:37 Labs: Abnormal Lab Results - Last 24 Hours (Table) 06/15/24 06/15/24 06/15/24 Range/Units 06:37 12:23 17:21 Glucose 169 H (70-110) mg/dL POC Glucose (mg/dL) 184 H 253 H (70-110) mg/dL Calcium 8.2 L (8.7-10.3) mg/dL 06/15/24 06/16/24 Range/Units 20:34 07:38 Glucose (70-110) mg/dL POC Glucose (mg/dL) 208 H 134 H (70-110) mg/dL Calcium (8.7-10.3) mg/dL Assessment and Plan (1) Allergy to multiple antibiotics Current Visit: Yes Status: Acute Code(s): Z88.1 - ALLERGY STATUS TO OTHER ANTIBIOTIC AGENTS SNOMED Code(s): 207001503 (2) UTI (urinary tract infection) Current Visit: Yes Status: Acute Code(s): N39.0 - URINARY TRACT INFECTION, SITE NOT SPECIFIED SNOMED Code(s): 78376585 Plan: 1patient presented to hospital with weakness syncopal episode suprapubic discomfort urinary symptoms and recently did have diarrhea respective for UTI with significantly positive UA likely symptomatic urinary tract infection. 2patient with both penicillin and cefepime allergy limiting the number of antibiotics even to use. 3patient has clinical improvement with Azactam to continue while waiting for the culture to finalize to determine discharge antibiotics. Dictation was produced using [employer] dictation software. please excuse any grammatical, word or spelling errors. Time with Patient: Less than 30
[2024-06-16] MEDS: NYSTATIN 100,000 UNIT/GM POWD 15 GM TOPICAL SCH (21:27)
[2024-06-17 05:29] LABS: Basophils # (A) 0.1 k/uL (0-0.2); Basophils % (A) 1 %; Eosinophils # (A) 0.2 k/uL (0-0.7); Eosinophils % (A) 2 %; HCT 36.1 % (34.0-46.0); HGB 11.9 gm/dL (11.4-16.0); Lymphocytes # (A) 1.6 k/uL (1.0-4.8); Lymphocytes % (A) 19 %; MCH 29.9 pg (25.0-35.0); MCHC 32.8 g/dL (31.0-37.0); Mean Platelet Volume 9.8; Monocytes # (A) 0.5 k/uL (0-1.0); Monocytes % (A) 6 %; Neutrophils % (A) 72 %; Platelet Count 180 k/uL (150-450); RBC 3.97 m/uL (3.80-5.40); RDW 13.9 % (11.5-15.5); WBC 8.4 k/uL (3.8-10.6)
[2024-06-17 07:36] LABS: Glucose,Whole Blood 157 mg/dL (70-110)
[2024-06-17 12:24] LABS: Glucose,Whole Blood 203 mg/dL (70-110)
[2024-06-17 13:44] LABS: BUN/Creat Ratio 19.38 Ratio (12.00-20.00); Blood Urea Nitrogen 15.5 mg/dL (9.0-27.0); Calcium 8.4 mg/dL (8.7-10.3); Carbon Dioxide 19.9 mmol/L (21.6-31.8); Chloride 106 mmol/L (96-109); Glucose 171 mg/dL (70-110); Potassium 4.1 mmol/L (3.5-5.5); Sodium 140 mmol/L (135-145)
--- NOTE | 2024-06-17 15:08 | P.PN ---
Subjective Progress Note Date: 06/17/24 Principal diagnosis: Reason for follow-up is symptomatic urinary tract infection Patient is 84-year-old female with a past medical history significant for diabetes mellitus hypertension CVA TIA atrial fibrillation patient was brought into the hospital concerning for weakness syncopal episode he did have a positive UA concerning for symptomatic urinary tract infection. On today's evaluation that is 06/17/2024,the patient remains to be afebrile, patient is on room air not requiring supplemental oxygen and denies any shortness of breath no chest pain or cough.Patient denies having any nausea or vomiting, no abdominal pain and no diarrhea has been reported Patient white count is 8.4, creatinine 0.8 cultures are pending Objective - Vital Signs Vital signs: Vital Signs Temp 98.2 F 06/17/24 12:59 Pulse 94 06/17/24 12:59 Resp 17 06/17/24 12:59 BP 140/91 06/17/24 12:59 Pulse Ox 95 06/17/24 12:59 FiO2 Intake & Output 06/16/24 06/17/24 06/17/24 18:59 06:59 18:59 Intake Total 1320 Output Total 1300 Balance 20 Intake: Oral 1320 Output: Urine 1300 Other: Voiding Method External Catheter Diaper Diaper # Voids 1 - Exam GENERAL DESCRIPTION: An elderly female up in the chair in no distress RESPIRATORY SYSTEM: Unlabored breathing , decreased breath sounds at bases HEART: S1 S2 regular rate and rhythm , ABDOMEN: Soft , no tenderness EXTREMITIES: No edema feet - Labs CBC & Chem 7: 06/17/24 04:58 06/17/24 04:58 Labs: Abnormal Lab Results - Last 24 Hours (Table) 06/16/24 06/16/24 06/17/24 Range/Units 17:24 19:57 07:15 POC Glucose (mg/dL) 139 H 237 H 157 H (70-110) mg/dL 06/17/24 Range/Units 12:18 POC Glucose (mg/dL) 203 H (70-110) mg/dL Microbiology - Last 24 Hours (Table) 06/15/24 13:25 Urine Culture - Preliminary Urine,Voided Assessment and Plan (1) Allergy to multiple antibiotics Current Visit: Yes Status: Acute Code(s): Z88.1 - ALLERGY STATUS TO OTHER ANTIBIOTIC AGENTS SNOMED Code(s): 146776579 (2) UTI (urinary tract infection) Current Visit: Yes Status: Acute Code(s): N39.0 - URINARY TRACT INFECTION, SITE NOT SPECIFIED SNOMED Code(s): 94912416 Plan: 1patient presented to hospital with weakness syncopal episode suprapubic disco mfort urinary symptoms and recently did have diarrhea respective for UTI with significantly positive UA likely symptomatic urinary tract infection. 2patient with both penicillin and cefepime allergy limiting the number of antibiotics safe to use. 3patient is slowly clinical improving with Azactam to continue while waiting for the culture to finalize and monitor clinical course closely Dictation was produced using [employer] dictation software. please excuse any grammatical, word or spelling errors. Time with Patient: Less than 30
[2024-06-17 17:21] LABS: Glucose,Whole Blood 184 mg/dL (70-110)
[2024-06-17 20:09] LABS: Glucose,Whole Blood 283 mg/dL (70-110)
[2024-06-17] MEDS: ZINC OXIDE PASTE (Z-GUARD) 1 APPLIC TOPICAL PRN (20:16)
--- NOTE | 2024-06-17 23:27 | P.PN ---
Subjective Progress Note Date: 06/16/24 This is an 84-year-old female who presented to the emergency department with altered mental status and syncopal episode per ER documentation. Patient was unaware of the events and EMS was called to evaluate the patient and bring to the hospital. Patient does have history of recurrent UTIs although on exam patient denies any pain burning or frequency and is likely asymptomatic bacteriuria. Patient did receive a dose of Levaquin in the ER. Patient was admitted as patient is also feeling weak. Will have PT/OT therapy evaluate the patient. Labs reviewed and patient had a normal white count of 6.6, hemoglobin is 13.0, sodium 136, potassium 4.0, BUN 12 with a creatinine of 0.73, blood sugar mildly elevated at 270 and hemoglobin A1c is noted to be 9.1. Lactic acid elevated at 2.5 and magnesium found at 1.6 and urinalysis was performed with large leukocyte esterase and WBC although again patient is refusing and denying any pain, burning, or frequency. Patient may need rehab on discharge and will also consult social work/case management regarding this. Infectious disease was consulted and appreciate input and recommendations. Patient reports she has caregivers in the home and reports she has physicians that visit the home, although a poor historian, patient was unsure of the doctor's name. Patient is listed as no PCP currently in the computer. EKG showed sinus rhythm with a heart rate of 77 bpm, chest x-ray shows no acute pulmonary process. Patient does have history of atrial fibrillation, previous CVA/TIA, diabetes mellitus, hypertension, memory impairment, previous UTIs with VRE, and former smoker. Patient reports she lives with one of her daughters. 06/14/2024 Patient is seen in follow-up this morning currently sitting up in the chair working with physical therapy as patient continues to be significantly weak. Case management consulted as patient reports she would like to go to [facility] for continued PT/OT therapy. Patient does have a legal guardian and there are concerns patient has no rehab days left and will plan for home with home care as patient reportedly lives with her daughter who is her caregiver. Patient is maintained on antibiotics with infectious disease following while awaiting urine culture. Patient denies any pain or burning or frequency with urination. Patient's mentation is improved. 06/15/2024 Patient is evaluated today in follow up. Patient has no acute complaints today. A urine culture was done today and pending. Continues on IV Aztreonam. 06/16/2024 Patient is resting in the bed. Awake alert and oriented. No complaints of chest pain or shortness of breath. Patient has been afebrile. No cough or sputum production. Blood sugar is fairly controlled. Laboratory data reviewed. Patient is being continued on antibiotics aztreonam due to multiple allergies. Awaiting urine culture report. ID is on board. Patient is being current on PT OT. Does have a legal guardian. Anticipate discharge to rehab. Current medications reviewed. Review of systems: Constitutional: No reports of fatigue, fever, or chills Cardiovascular: No reports of chest pain or palpitations Respiratory: No reports of shortness of breath or cough GI: No reports of nausea, vomiting, or diarrhea : No reports of dysuria or retention Neurovascular: reports of generalized weakness and difficulty ambulating All medications have been reviewed PHYSICAL EXAMINATION: GENERAL: The patient is alert and oriented x2, sitting up in the chair, appears to be baseline and mentation has improved, not in any acute distress. Well developed, well nourished. Elderly appearing, obese HEENT: Pupils are round and equally reacting to light. EOMI. No scleral icterus. No conjunctival pallor. Normocephalic, atraumatic. No pharyngeal erythema. No thyromegaly. CARDIOVASCULAR: S1 and S2 muffled, irregular PULMONARY: Diminished breath sounds bilaterally otherwise chest is clear to auscultation, no wheezing or crackles. ABDOMEN: Soft, obese, nontender, nondistended, normoactive bowel sounds. No palpable organomegaly. MUSCULOSKELETAL: No joint swelling or deformity. EXTREMITIES: No cyanosis, clubbing, or pedal edema. NEUROLOGICAL: Gross neurological examination did not reveal any focal deficits. Diffusely weak SKIN: No rashes. Assessment: Acute confusion with possible acute syncopal episode, likely metabolic encephalopathy due to lactic acidosis and fall, syncope unlikely Concerns of possible acute urinary tract infection, present on admission although suspicion is low likely asymptomatic bacteriuria as patient is denying any pain, burning, or frequency with urination. 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 Currently awaiting urine culture. Patient is on azithromycin now. Home medications reviewed and resumed as appropriate Patient with history of diabetes recommend Accu-Cheks before meals and at bedtime along with sliding scale and diabetic diet. Adjust insulins accordingly PT/OT therapy to evaluate the patient with possible need for ECF. Case management following and there is concerns patient has no rehab days left. Referral sent and pending as patient would like to go to [facility]. Will follow-up on repeat labs and continue to monitor closely Encouraged increase activity as tolerated Objective - Vital Signs Vital signs: Vital Signs Temp 98.2 F 06/16/24 13:40 Pulse 105 H 06/16/24 13:40 Resp 16 06/16/24 13:40 BP 132/70 06/16/24 13:40 Pulse Ox 98 06/16/24 13:40 FiO2 Intake & Output 06/15/24 06/16/24 06/16/24 18:59 06:59 18:59 Intake Total 540 Output Total 900 800 Balance -360 -800 Intake: Oral 540 Output: Urine 900 800 Other: Voiding Method External Catheter External Catheter External Catheter - Labs CBC & Chem 7: 06/17/24 04:58 06/17/24 04:58 Labs: Abnormal Lab Results - Last 24 Hours (Table) 06/15/24 06/15/24 06/16/24 Range/Units 17:21 20:34 07:38 POC Glucose (mg/dL) 253 H 208 H 134 H (70-110) mg/dL 06/16/24 Range/Units 12:22 POC Glucose (mg/dL) 258 H (70-110) mg/dL
[2024-06-18 05:42] LABS: Glucose,Whole Blood 160 mg/dL (70-110)
[2024-06-18 07:48] LABS: Glucose,Whole Blood 152 mg/dL (70-110)
[2024-06-18 12:10] LABS: Glucose,Whole Blood 222 mg/dL (70-110)
[2024-06-18] MEDS: FLUCONAZOLE 100 MG TAB PO SCH (12:56)
[2024-06-18 17:13] LABS: Glucose,Whole Blood 253 mg/dL (70-110)
[2024-06-18 20:26] LABS: Glucose,Whole Blood 256 mg/dL (70-110)
--- NOTE | 2024-06-19 00:43 | P.PN ---
Subjective Progress Note Date: 06/17/24 This is an 84-year-old female who presented to the emergency department with altered mental status and syncopal episode per ER documentation. Patient was unaware of the events and EMS was called to evaluate the patient and bring to the hospital. Patient does have history of recurrent UTIs although on exam patient denies any pain burning or frequency and is likely asymptomatic bacteriuria. Patient did receive a dose of Levaquin in the ER. Patient was admitted as patient is also feeling weak. Will have PT/OT therapy evaluate the patient. Labs reviewed and patient had a normal white count of 6.6, hemoglobin is 13.0, sodium 136, potassium 4.0, BUN 12 with a creatinine of 0.73, blood sugar mildly elevated at 270 and hemoglobin A1c is noted to be 9.1. Lactic acid elevated at 2.5 and magnesium found at 1.6 and urinalysis was performed with large leukocyte esterase and WBC although again patient is refusing and denying any pain, burning, or frequency. Patient may need rehab on discharge and will also consult social work/case management regarding this. Infectious disease was consulted and appreciate input and recommendations. Patient reports she has caregivers in the home and reports she has physicians that visit the home, although a poor historian, patient was unsure of the doctor's name. Patient is listed as no PCP currently in the computer. EKG showed sinus rhythm with a heart rate of 77 bpm, chest x-ray shows no acute pulmonary process. Patient does have history of atrial fibrillation, previous CVA/TIA, diabetes mellitus, hypertension, memory impairment, previous UTIs with VRE, and former smoker. Patient reports she lives with one of her daughters. 06/14/2024 Patient is seen in follow-up this morning currently sitting up in the chair working with physical therapy as patient continues to be significantly weak. Case management consulted as patient reports she would like to go to [facility] for continued PT/OT therapy. Patient does have a legal guardian and there are concerns patient has no rehab days left and will plan for home with home care as patient reportedly lives with her daughter who is her caregiver. Patient is maintained on antibiotics with infectious disease following while awaiting urine culture. Patient denies any pain or burning or frequency with urination. Patient's mentation is improved. 06/15/2024 Patient is evaluated today in follow up. Patient has no acute complaints today. A urine culture was done today and pending. Continues on IV Aztreonam. 06/16/2024 Patient is resting in the bed. Awake alert and oriented. No complaints of chest pain or shortness of breath. Patient has been afebrile. No cough or sputum production. Blood sugar is fairly controlled. Laboratory data reviewed. Patient is being continued on antibiotics aztreonam due to multiple allergies. Awaiting urine culture report. ID is on board. Patient is being current on PT OT. Does have a legal guardian. Anticipate discharge to rehab. Current medications reviewed. 06/17/2024 Patient is resting in the bed. Awake alert and oriented x 3. No complaints of chest pain or shortness of breath. No nausea vomiting abdominal pain or diarrhea. No cough or sputum production. Patient is on IV antibiotics. ID is on board. Lab data showed sodium 140 potassium 4.1 chloride 106 bicarb is 19.9 BUN 15.5 and creatinine 0.8 and blood sugar 171. Calcium 8.4. Review of systems: Constitutional: No reports of fatigue, fever, or chills Cardiovascular: No reports of chest pain or palpitations Respiratory: No reports of shortness of breath or cough GI: No reports of nausea, vomiting, or diarrhea : No reports of dysuria or retention Neurovascular: reports of generalized weakness and difficulty ambulating All medications have been reviewed PHYSICAL EXAMINATION: GENERAL: The patient is alert and oriented x2, sitting up in the chair, appears to be baseline and mentation has improved, not in any acute distress. Well developed, well nourished. Elderly appearing, obese HEENT: Pupils are round and equally reacting to light. EOMI. No scleral icterus. No conjunctival pallor. Normocephalic, atraumatic. No pharyngeal erythema. No thyromegaly. CARDIOVASCULAR: S1 and S2 muffled, irregular PULMONARY: Diminished breath sounds bilaterally otherwise chest is clear to auscultation, no wheezing or crackles. ABDOMEN: Soft, obese, nontender, nondistended, normoactive bowel sounds. No palpable organomegaly. MUSCULOSKELETAL: No joint swelling or deformity. EXTREMITIES: No cyanosis, clubbing, or pedal edema. NEUROLOGICAL: Gross neurological examination did not reveal any focal deficits. Diffusely weak SKIN: No rashes. Assessment: Acute confusion with possible acute syncopal episode, likely metabolic encephalopathy due to lactic acidosis and fall, syncope unlikely Concerns of possible acute urinary tract infection, present on admission although suspicion is low likely asymptomatic bacteriuria as patient is denying any pain, burning, or frequency with urination. 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 Urine culture showed Gela albicans.. Currently on aztreonam Home medications reviewed and resumed as appropriate Patient with history of diabetes recommend Accu-Cheks before meals and at bedtime along with sliding scale and diabetic diet. Adjust insulins accordingly PT/OT therapy to evaluate the patient with possible need for ECF. Case management following and there is concerns patient has no rehab days left. Referral sent and pending as patient would like to go to [facility]. Will follow-up on repeat labs and continue to monitor closely Encouraged increase activity as tolerated Objective - Vital Signs Vital signs: Vital Signs Temp 98.1 F 06/17/24 20:00 Pulse 87 06/17/24 20:00 Resp 16 06/17/24 20:00 BP 126/74 06/17/24 20:00 Pulse Ox 94 L 06/17/24 20:00 FiO2 Intake & Output 06/17/24 06/17/24 06/18/24 06:59 18:59 06:59 Intake Total 1080 Balance 1080 Intake: Oral 1080 Other: Voiding Method Diaper Diaper Diaper # Voids 1 4 # Bowel Movements 2 - Labs CBC & Chem 7: 06/17/24 04:58 06/17/24 04:58 Labs: Abnormal Lab Results - Last 24 Hours (Table) 06/17/24 06/17/24 06/17/24 Range/Units 04:58 07:15 12:18 Carbon Dioxide 19.9 L (21.6-31.8) mmol/L Anion Gap 14.10 H (4.00-12.00) mmol/L Glucose 171 H (70-110) mg/dL POC Glucose (mg/dL) 157 H 203 H (70-110) mg/dL Calcium 8.4 L (8.7-10.3) mg/dL 06/17/24 06/17/24 Range/Units 17:19 20:07 Carbon Dioxide (21.6-31.8) mmol/L Anion Gap (4.00-12.00) mmol/L Glucose (70-110) mg/dL POC Glucose (mg/dL) 184 H 283 H (70-110) mg/dL Calcium (8.7-10.3) mg/dL Microbiology - Last 24 Hours (Table) 06/15/24 13:25 Urine Culture - Final Urine,Voided Gela albicans
--- NOTE | 2024-06-19 00:45 | P.PN ---
Subjective Progress Note Date: 06/18/24 This is an 84-year-old female who presented to the emergency department with altered mental status and syncopal episode per ER documentation. Patient was unaware of the events and EMS was called to evaluate the patient and bring to the hospital. Patient does have history of recurrent UTIs although on exam patient denies any pain burning or frequency and is likely asymptomatic bacteriuria. Patient did receive a dose of Levaquin in the ER. Patient was admitted as patient is also feeling weak. Will have PT/OT therapy evaluate the patient. Labs reviewed and patient had a normal white count of 6.6, hemoglobin is 13.0, sodium 136, potassium 4.0, BUN 12 with a creatinine of 0.73, blood sugar mildly elevated at 270 and hemoglobin A1c is noted to be 9.1. Lactic acid elevated at 2.5 and magnesium found at 1.6 and urinalysis was performed with large leukocyte esterase and WBC although again patient is refusing and denying any pain, burning, or frequency. Patient may need rehab on discharge and will also consult social work/case management regarding this. Infectious disease was consulted and appreciate input and recommendations. Patient reports she has caregivers in the home and reports she has physicians that visit the home, although a poor historian, patient was unsure of the doctor's name. Patient is listed as no PCP currently in the computer. EKG showed sinus rhythm with a heart rate of 77 bpm, chest x-ray shows no acute pulmonary process. Patient does have history of atrial fibrillation, previous CVA/TIA, diabetes mellitus, hypertension, memory impairment, previous UTIs with VRE, and former smoker. Patient reports she lives with one of her daughters. 06/14/2024 Patient is seen in follow-up this morning currently sitting up in the chair working with physical therapy as patient continues to be significantly weak. Case management consulted as patient reports she would like to go to [facility] for continued PT/OT therapy. Patient does have a legal guardian and there are concerns patient has no rehab days left and will plan for home with home care as patient reportedly lives with her daughter who is her caregiver. Patient is maintained on antibiotics with infectious disease following while awaiting urine culture. Patient denies any pain or burning or frequency with urination. Patient's mentation is improved. 06/15/2024 Patient is evaluated today in follow up. Patient has no acute complaints today. A urine culture was done today and pending. Continues on IV Aztreonam. 06/16/2024 Patient is resting in the bed. Awake alert and oriented. No complaints of chest pain or shortness of breath. Patient has been afebrile. No cough or sputum production. Blood sugar is fairly controlled. Laboratory data reviewed. Patient is being continued on antibiotics aztreonam due to multiple allergies. Awaiting urine culture report. ID is on board. Patient is being current on PT OT. Does have a legal guardian. Anticipate discharge to rehab. Current medications reviewed. 06/17/2024 Patient is resting in the bed. Awake alert and oriented x 3. No complaints of chest pain or shortness of breath. No nausea vomiting abdominal pain or diarrhea. No cough or sputum production. Patient is on IV antibiotics. ID is on board. Lab data showed sodium 140 potassium 4.1 chloride 106 bicarb is 19.9 BUN 15.5 and creatinine 0.8 and blood sugar 171. Calcium 8.4. 06/18/2024 Patient is resting in the bed. Awake alert and oriented x 3No complaints of chest pain or abdominal pain. No nausea vomiting abdominal pain or diarrhea. No cough or sputum production. Patient has been afebrile. Currently on room air. Urine culture showed Gela albicans. Aztreonam has been discontinued and patient was started on Diflucan. ID is on board. PT OT to follow-up [facility]. Symptomatically improved. Blood sugar is fairly controlled. Review of systems: Constitutional: No reports of fatigue, fever, or chills Cardiovascular: No reports of chest pain or palpitations Respiratory: No reports of shortness of breath or cough GI: No reports of nausea, vomiting, or diarrhea : No reports of dysuria or retention Neurovascular: reports of generalized weakness and difficulty ambulating All medications have been reviewed PHYSICAL EXAMINATION: GENERAL: The patient is alert and oriented x2, sitting up in the chair, appears to be baseline and mentation has improved, not in any acute distress. Well developed, well nourished. Elderly appearing, obese HEENT: Pupils are round and equally reacting to light. EOMI. No scleral icterus. No conjunctival pallor. Normocephalic, atraumatic. No pharyngeal erythema. No thyromegaly. CARDIOVASCULAR: S1 and S2 muffled, irregular PULMONARY: Diminished breath sounds bilaterally otherwise chest is clear to auscultation, no wheezing or crackles. ABDOMEN: Soft, obese, nontender, nondistended, normoactive bowel sounds. No pal pable organomegaly. MUSCULOSKELETAL: No joint swelling or deformity. EXTREMITIES: No cyanosis, clubbing, or pedal edema. NEUROLOGICAL: Gross neurological examination did not reveal any focal deficits. Diffusely weak SKIN: No rashes. Assessment: Acute confusion with possible acute syncopal episode, likely metabolic encephalopathy due to lactic acidosis and fall, syncope unlikely Concerns of possible acute urinary tract infection, present on admission although suspicion is low likely asymptomatic bacteriuria as patient is denying any pain, burning, or frequency with urination. 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 Urine culture showed Gela albicans.. Patient was started on Diflucan. Antibiotics have been discontinued. Home medications reviewed and resumed as appropriate Patient with history of diabetes recommend Accu-Cheks before meals and at bedtime along with sliding scale and diabetic diet. Adjust insulins accordingly PT/OT therapy to evaluate the patient with possible need for ECF. Case management following and there is concerns patient has no rehab days left. Referral sent and pending as patient would like to go to [facility]. Will follow-up on repeat labs and continue to monitor closely Encouraged increase activity as tolerated Objective - Vital Signs Vital signs: Vital Signs Temp 98.4 F 06/18/24 19:53 Pulse 101 H 06/18/24 19:53 Resp 16 06/18/24 19:53 BP 125/70 06/18/24 19:53 Pulse Ox 94 L 06/18/24 19:53 FiO2 Intake & Output 06/18/24 06/18/24 06/19/24 06:59 18:59 06:59 Intake Total 720 Balance 720 Intake: Oral 720 Other: Voiding Method Diaper Diaper # Voids 4 4 - Labs CBC & Chem 7: 06/17/24 04:58 06/17/24 04:58 Labs: Abnormal Lab Results - Last 24 Hours (Table) 06/18/24 06/18/24 06/18/24 Range/Units 05:37 07:45 12:09 POC Glucose (mg/dL) 160 H 152 H 222 H (70-110) mg/dL 06/18/24 06/18/24 Range/Units 17:08 20:25 POC Glucose (mg/dL) 253 H 256 H (70-110) mg/dL Microbiology - Last 24 Hours (Table) 06/15/24 13:25 Urine Culture - Final Urine,Voided Gela albicans
[2024-06-19 07:25] LABS: Glucose,Whole Blood 172 mg/dL (70-110)
[2024-06-19 10:26] LABS: BUN/Creat Ratio 15.38 Ratio (12.00-20.00); Blood Urea Nitrogen 12.3 mg/dL (9.0-27.0); Calcium 8.3 mg/dL (8.7-10.3); Chloride 104 mmol/L (96-109); Glucose 203 mg/dL (70-110); Potassium 4.3 mmol/L (3.5-5.5); Sodium 138 mmol/L (135-145)
[2024-06-19 12:12] LABS: Glucose,Whole Blood 199 mg/dL (70-110)
--- NOTE | 2024-06-19 15:07 | P.PN ---
Subjective Progress Note Date: 06/18/24 Principal diagnosis: Reason for follow-up is symptomatic urinary tract infection Patient is 84-year-old female with a past medical history significant for diabetes mellitus hypertension CVA TIA atrial fibrillation patient was brought into the hospital concerning for weakness syncopal episode he did have a positive UA concerning for symptomatic urinary tract infection. On today's evaluation that is 06/18/2024, the patient continues to be afebrile, the patient is on room air and breathing comfortably, the Pt denies having any chest pain or cough, the patient denies having any abdominal pain no vomiting or any diarrhea has been reported by the nursing staff No CBC was done today urine has been finalized with Gela Objective - Vital Signs Vital signs: Vital Signs Temp 98.6 F 06/18/24 07:35 Pulse 98 06/18/24 12:00 Resp 17 06/18/24 07:35 BP 150/94 06/18/24 07:35 Pulse Ox 96 06/18/24 07:35 FiO2 Intake & Output 06/17/24 06/18/24 06/18/24 18:59 06:59 18:59 Intake Total 1080 Balance 1080 Intake: Oral 1080 Other: Voiding Method Diaper Diaper Diaper # Voids 4 4 # Bowel Movements 2 - Exam GENERAL DESCRIPTION: An elderly female up in the chair in no distress RESPIRATORY SYSTEM: Unlabored breathing , decreased breath sounds at bases HEART: S1 S2 regular rate and rhythm , ABDOMEN: Soft , no tenderness EXTREMITIES: No edema feet - Labs CBC & Chem 7: 06/17/24 04:58 06/19/24 05:44 Labs: Abnormal Lab Results - Last 24 Hours (Table) 06/17/24 06/17/24 06/17/24 Range/Units 04:58 17:19 20:07 Carbon Dioxide 19.9 L (21.6-31.8) mmol/L Anion Gap 14.10 H (4.00-12.00) mmol/L Glucose 171 H (70-110) mg/dL POC Glucose (mg/dL) 184 H 283 H (70-110) mg/dL Calcium 8.4 L (8.7-10.3) mg/dL 06/18/24 06/18/24 06/18/24 Range/Units 05:37 07:45 12:09 Carbon Dioxide (21.6-31.8) mmol/L Anion Gap (4.00-12.00) mmol/L Glucose (70-110) mg/dL POC Glucose (mg/dL) 160 H 152 H 222 H (70-110) mg/dL Calcium (8.7-10.3) mg/dL Microbiology - Last 24 Hours (Table) 06/15/24 13:25 Urine Culture - Final Urine,Voided Gela albicans Assessment and Plan (1) Allergy to multiple antibiotics Current Visit: Yes Status: Acute Code(s): Z88.1 - ALLERGY STATUS TO OTHER ANTIBIOTIC AGENTS SNOMED Code(s): 690167260 (2) UTI (urinary tract infection) Current Visit: Yes Status: Acute Code(s): N39.0 - URINARY TRACT INFECTION, SITE NOT SPECIFIED SNOMED Code(s): 58175014 Plan: 1patient presented to hospital with weakness syncopal episode suprapubic discomfort urinary symptoms and recently did have diarrhea respective for UTI with significantly positive UA likely symptomatic urinary tract infection. 2patient with both penicillin and cefepime allergy limiting the number of antibiotics safe to use. 3patient urine has been finalized with Gela albicans discontinue Azactam start the patient on Diflucan and see clinical response Dictation was produced using [employer] dictation software. please excuse any grammatical, word or spelling errors. Time with Patient: Less than 30
--- NOTE | 2024-06-19 15:08 | P.PN ---
Subjective Progress Note Date: 06/19/24 Principal diagnosis: Reason for follow-up is symptomatic urinary tract infection Patient is 84-year-old female with a past medical history significant for diabetes mellitus hypertension CVA TIA atrial fibrillation patient was brought into the hospital concerning for weakness syncopal episode he did have a positive UA concerning for symptomatic urinary tract infection. On today's evaluation that is 06/19/2024, Patient is afebrile patient is currently on room air and denies having any shortness of breath, the patient denies any chest pain or cough, the patient denies any nausea vomiting did not have any abdominal pain and no diarrhea. The patient did have a creatinine 0.8 Objective - Vital Signs Vital signs: Vital Signs Temp 98.1 F 06/19/24 12:16 Pulse 96 06/19/24 12:16 Resp 16 06/19/24 12:16 BP 138/84 06/19/24 12:16 Pulse Ox 94 L 06/19/24 12:16 FiO2 Intake & Output 06/18/24 06/19/24 06/19/24 18:59 06:59 18:59 Intake Total 720 780 Balance 720 780 Intake: Oral 720 780 Other: Voiding Method Diaper Diaper Diaper # Voids 4 3 - Exam GENERAL DESCRIPTION: An elderly female up in the chair in no distress RESPIRATORY SYSTEM: Unlabored breathing , decreased breath sounds at bases HEART: S1 S2 regular rate and rhythm , ABDOMEN: Soft , no tenderness EXTREMITIES: No edema feet - Labs CBC & Chem 7: 06/17/24 04:58 06/19/24 05:44 Labs: Abnormal Lab Results - Last 24 Hours (Table) 06/18/24 06/18/24 06/19/24 Range/Units 17:08 20:25 05:44 Glucose 203 H (70-110) mg/dL POC Glucose (mg/dL) 253 H 256 H (70-110) mg/dL Calcium 8.3 L (8.7-10.3) mg/dL 06/19/24 06/19/24 Range/Units 07:24 12:11 Glucose (70-110) mg/dL POC Glucose (mg/dL) 172 H 199 H (70-110) mg/dL Calcium (8.7-10.3) mg/dL Assessment and Plan (1) Allergy to multiple antibiotics Current Visit: Yes Status: Acute Code(s): Z88.1 - ALLERGY STATUS TO OTHER ANTIBIOTIC AGENTS SNOMED Code(s): 256295706 (2) UTI (urinary tract infection) Current Visit: Yes Status: Acute Code(s): N39.0 - URINARY TRACT INFECTION, SITE NOT SPECIFIED SNOMED Code(s): 82628835 Plan: 1patient presented to hospital with weakness syncopal episode suprapubic discomfort urinary symptoms and recently did have diarrhea respective for UTI with significantly positive UA likely symptomatic urinary tract infection. 2patient with both penicillin and cefepime allergy limiting the number of antibiotics safe to use. 3patient urine has been finalized with Gela albicans patient was started on Diflucan as of 06/18/2024 consider short 5-day course of therapy on discharge Dictation was produced using [employer] dictation software. please excuse any grammatical, word or spelling errors. Time with Patient: Less than 30
--- NOTE | 2024-06-19 16:09 | CDI ---
Documentation Clarification Form Date: 06/19/2024 03:56:34 PM From: Keli Cottrell RN, CCDS Phone: [phone] Admit Date: 06/12/2024 06:48:00 PM Patient Name: Flores Chadwick Visit Number: [id number] Discharge Date: ATTENTION: The Clinical Documentation Specialists (CDI) and [facility] Coding Staff appreciate your assistance in clarifying documentation. Please respond to the clarification below the line at the bottom and electronically sign. The CDI & [facility] Coding staff will review the response and follow-up if needed. Please note: Queries are made part of the Legal Health Record. If you have any questions, please contact the author of this message via ITS. Doctor/Provider: Erik Mccauley Atrial Fibrillation is documented in the past medical history with ongoing treatment. Additional clarification regarding the type of atrial fibrillation is requested. History/Risk Factors: Atrial Fibrillation, CVA/TIA, Diabetes Mellitus, UTI, Hypertension, Memory Impairment, Clinical Indicators: 84-year-old female who presented to the emergency department with altered mental status. She was ruled in for UTI. History includes atrial fibrillation. EKG/telemetry: Sinus rhythm with a heart rate of 77 bpm. VS: 110/60 91 16 98.1 96% RA Treatment: case monitor/Telemetry Eliquis 5 MG PO BID Cardizem Cd 180 MG PO Daily Please clarify the type of atrial fibrillation, if known: [ ] Chronic [ ] Permanent [ ] Paroxysmal [ ] Persistent [ ] Other, please specify [ ] Unable to determine (Template Last Revised: February 2021) ADDENDUM 06/21/2024 Additional diagnoses: History of atrial fibrillation, currently rate controlled, paroxysmal Addendum Dictated By:Dulce Fox
[2024-06-19 17:10] LABS: Glucose,Whole Blood 228 mg/dL (70-110)
[2024-06-19 20:23] LABS: Glucose,Whole Blood 197 mg/dL (70-110)
[2024-06-20 07:22] LABS: Glucose,Whole Blood 179 mg/dL (70-110)
[2024-06-20] MEDS: INSULIN DETEMIR (LEVEMIR) 100 UNIT/ML SYR SQ SCH (08:59)
[2024-06-20 12:26] LABS: Glucose,Whole Blood 182 mg/dL (70-110)
--- NOTE | 2024-06-20 14:00 | P.PN ---
Subjective Progress Note Date: 06/19/24 This is an 84-year-old female who presented to the emergency department with altered mental status and syncopal episode per ER documentation. Patient was unaware of the events and EMS was called to evaluate the patient and bring to the hospital. Patient does have history of recurrent UTIs although on exam patient denies any pain burning or frequency and is likely asymptomatic bacteriuria. Patient did receive a dose of Levaquin in the ER. Patient was admitted as patient is also feeling weak. Will have PT/OT therapy evaluate the patient. Labs reviewed and patient had a normal white count of 6.6, hemoglobin is 13.0, sodium 136, potassium 4.0, BUN 12 with a creatinine of 0.73, blood sugar mildly elevated at 270 and hemoglobin A1c is noted to be 9.1. Lactic acid elevated at 2.5 and magnesium found at 1.6 and urinalysis was performed with large leukocyte esterase and WBC although again patient is refusing and denying any pain, burning, or frequency. Patient may need rehab on discharge and will also consult social work/case management regarding this. Infectious disease was consulted and appreciate input and recommendations. Patient reports she has caregivers in the home and reports she has physicians that visit the home, although a poor historian, patient was unsure of the doctor's name. Patient is listed as no PCP currently in the computer. EKG showed sinus rhythm with a heart rate of 77 bpm, chest x-ray shows no acute pulmonary process. Patient does have history of atrial fibrillation, previous CVA/TIA, diabetes mellitus, hypertension, memory impairment, previous UTIs with VRE, and former smoker. Patient reports she lives with one of her daughters. 06/14/2024 Patient is seen in follow-up this morning currently sitting up in the chair working with physical therapy as patient continues to be significantly weak. Case management consulted as patient reports she would like to go to [facility] for continued PT/OT therapy. Patient does have a legal guardian and there are concerns patient has no rehab days left and will plan for home with home care as patient reportedly lives with her daughter who is her caregiver. Patient is maintained on antibiotics with infectious disease following while awaiting urine culture. Patient denies any pain or burning or frequency with urination. Patient's mentation is improved. 06/15/2024 Patient is evaluated today in follow up. Patient has no acute complaints today. A urine culture was done today and pending. Continues on IV Aztreonam. 06/16/2024 Patient is resting in the bed. Awake alert and oriented. No complaints of chest pain or shortness of breath. Patient has been afebrile. No cough or sputum production. Blood sugar is fairly controlled. Laboratory data reviewed. Patient is being continued on antibiotics aztreonam due to multiple allergies. Awaiting urine culture report. ID is on board. Patient is being current on PT OT. Does have a legal guardian. Anticipate discharge to rehab. Current medications reviewed. 06/17/2024 Patient is resting in the bed. Awake alert and oriented x 3. No complaints of chest pain or shortness of breath. No nausea vomiting abdominal pain or diarrhea. No cough or sputum production. Patient is on IV antibiotics. ID is on board. Lab data showed sodium 140 potassium 4.1 chloride 106 bicarb is 19.9 BUN 15.5 and creatinine 0.8 and blood sugar 171. Calcium 8.4. 06/18/2024 Patient is resting in the bed. Awake alert and oriented x 3No complaints of chest pain or abdominal pain. No nausea vomiting abdominal pain or diarrhea. No cough or sputum production. Patient has been afebrile. Currently on room air. Urine culture showed Gela albicans. Aztreonam has been discontinued and patient was started on Diflucan. ID is on board. PT OT to follow-up be[facility]. Symptomatically improved. Blood sugar is fairly controlled. 06/19/2024 Patient is sitting on the side of the bed. Awake alert and oriented x 3. No complaints of chest pain or shortness of breath. No nausea vomiting abdominal pain or diarrhea. Patient is being continued on Diflucan. Laboratory showed 138 sodium potassium 4.3 chloride 104 bicarb is 22 BUN 12.3 and creatinine 0.8 and blood sugar 203. ID is on board. Patient is awaiting placement to rehab. Review of systems: Constitutional: No reports of fatigue, fever, or chills Cardiovascular: No reports of chest pain or palpitations Respiratory: No reports of shortness of breath or cough GI: No reports of nausea, vomiting, or diarrhea : No reports of dysuria or retention Neurovascular: reports of generalized weakness and difficulty ambulating All medications have been reviewed PHYSICAL EXAMINATION: GENERAL: The patient is alert and oriented x2, sitting up in the chair, appears to be baseline and mentation has improved, not in any acute distress. Well developed, well nourished. Elderly appearing, obese HEENT: Pupils are round and equally reacting to light. EOMI. No scleral icterus. No conjunctival pallor. Normocephalic, atraumatic. No pharyngeal erythema. No thyromegaly. CARDIOVASCULAR: S1 and S2 muffled, irregular PULMONARY: Diminished breath sounds bilaterally otherwise chest is clear to auscultation, no wheezing or crackles. ABDOMEN: Soft, obese, nontender, nondistended, normoactive bowel sounds. No p alpable organomegaly. MUSCULOSKELETAL: No joint swelling or deformity. EXTREMITIES: No cyanosis, clubbing, or pedal edema. NEUROLOGICAL: Gross neurological examination did not reveal any focal deficits. Diffusely weak SKIN: No rashes. Assessment: Acute confusion with possible acute syncopal episode, likely metabolic encephalopathy due to lactic acidosis and fall, syncope unlikely Concerns of possible acute urinary tract infection, present on admission although suspicion is low likely asymptomatic bacteriuria as patient is denying any pain, burning, or frequency with urination. Urine culture showed Gela albicans. 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 Urine culture showed Gela albicans.. Patient was started on Diflucan. Antibiotics have been discontinued. Home medications reviewed and resumed as appropriate Patient with history of diabetes recommend Accu-Cheks before meals and at bedtime along with sliding scale and diabetic diet. Adjust insulins accordingly PT/OT therapy to evaluate the patient with possible need for ECF. Case management following and there is concerns patient has no rehab days left. Referral sent and pending as patient would like to go to [facility]. Will follow-up on repeat labs and continue to monitor closely Encouraged increase activity as tolerated Objective - Vital Signs Vital signs: Vital Signs Temp 98.2 F 06/19/24 20:00 Pulse 82 06/19/24 20:00 Resp 16 06/19/24 20:00 BP 104/53 06/19/24 20:00 Pulse Ox 94 L 06/19/24 20:00 FiO2 Intake & Output 06/19/24 06/19/24 06/20/24 06:59 18:59 06:59 Intake Total 2100 Balance 2100 Intake: Oral 2100 Other: Voiding Method Diaper Diaper Diaper External Catheter # Voids 3 5 - Labs CBC & Chem 7: 06/17/24 04:58 06/19/24 05:44 Labs: Abnormal Lab Results - Last 24 Hours (Table) 06/19/24 06/19/24 06/19/24 Range/Units 05:44 07:24 12:11 Glucose 203 H (70-110) mg/dL POC Glucose (mg/dL) 172 H 199 H (70-110) mg/dL Calcium 8.3 L (8.7-10.3) mg/dL 06/19/24 06/19/24 Range/Units 17:09 20:22 Glucose (70-110) mg/dL POC Glucose (mg/dL) 228 H 197 H (70-110) mg/dL Calcium (8.7-10.3) mg/dL
[2024-06-20 17:18] LABS: Glucose,Whole Blood 179 mg/dL (70-110)
[2024-06-20 20:19] LABS: Glucose,Whole Blood 259 mg/dL (70-110)
--- NOTE | 2024-06-21 00:41 | P.PN ---
Subjective Progress Note Date: 06/20/24 This is an 84-year-old female who presented to the emergency department with altered mental status and syncopal episode per ER documentation. Patient was unaware of the events and EMS was called to evaluate the patient and bring to the hospital. Patient does have history of recurrent UTIs although on exam patient denies any pain burning or frequency and is likely asymptomatic bacteriuria. Patient did receive a dose of Levaquin in the ER. Patient was admitted as patient is also feeling weak. Will have PT/OT therapy evaluate the patient. Labs reviewed and patient had a normal white count of 6.6, hemoglobin is 13.0, sodium 136, potassium 4.0, BUN 12 with a creatinine of 0.73, blood sugar mildly elevated at 270 and hemoglobin A1c is noted to be 9.1. Lactic acid elevated at 2.5 and magnesium found at 1.6 and urinalysis was performed with large leukocyte esterase and WBC although again patient is refusing and denying any pain, burning, or frequency. Patient may need rehab on discharge and will also consult social work/case management regarding this. Infectious disease was consulted and appreciate input and recommendations. Patient reports she has caregivers in the home and reports she has physicians that visit the home, although a poor historian, patient was unsure of the doctor's name. Patient is listed as no PCP currently in the computer. EKG showed sinus rhythm with a heart rate of 77 bpm, chest x-ray shows no acute pulmonary process. Patient does have history of atrial fibrillation, previous CVA/TIA, diabetes mellitus, hypertension, memory impairment, previous UTIs with VRE, and former smoker. Patient reports she lives with one of her daughters. 06/14/2024 Patient is seen in follow-up this morning currently sitting up in the chair working with physical therapy as patient continues to be significantly weak. Case management consulted as patient reports she would like to go to [facility] for continued PT/OT therapy. Patient does have a legal guardian and there are concerns patient has no rehab days left and will plan for home with home care as patient reportedly lives with her daughter who is her caregiver. Patient is maintained on antibiotics with infectious disease following while awaiting urine culture. Patient denies any pain or burning or frequency with urination. Patient's mentation is improved. 06/15/2024 Patient is evaluated today in follow up. Patient has no acute complaints today. A urine culture was done today and pending. Continues on IV Aztreonam. 06/16/2024 Patient is resting in the bed. Awake alert and oriented. No complaints of chest pain or shortness of breath. Patient has been afebrile. No cough or sputum production. Blood sugar is fairly controlled. Laboratory data reviewed. Patient is being continued on antibiotics aztreonam due to multiple allergies. Awaiting urine culture report. ID is on board. Patient is being current on PT OT. Does have a legal guardian. Anticipate discharge to rehab. Current medications reviewed. 06/17/2024 Patient is resting in the bed. Awake alert and oriented x 3. No complaints of chest pain or shortness of breath. No nausea vomiting abdominal pain or diarrhea. No cough or sputum production. Patient is on IV antibiotics. ID is on board. Lab data showed sodium 140 potassium 4.1 chloride 106 bicarb is 19.9 BUN 15.5 and creatinine 0.8 and blood sugar 171. Calcium 8.4. 06/18/2024 Patient is resting in the bed. Awake alert and oriented x 3No complaints of chest pain or abdominal pain. No nausea vomiting abdominal pain or diarrhea. No cough or sputum production. Patient has been afebrile. Currently on room air. Urine culture showed Gela albicans. Aztreonam has been discontinued and patient was started on Diflucan. ID is on board. PT OT to follow-up be[facility]. Symptomatically improved. Blood sugar is fairly controlled. 06/19/2024 Patient is sitting on the side of the bed. Awake alert and oriented x 3. No complaints of chest pain or shortness of breath. No nausea vomiting abdominal pain or diarrhea. Patient is being continued on Diflucan. Laboratory showed 138 sodium potassium 4.3 chloride 104 bicarb is 22 BUN 12.3 and creatinine 0.8 and blood sugar 203. ID is on board. Patient is awaiting placement to rehab. 06/20/2024 Patient is resting the bed. Awake alert and oriented x 3. No complaints of chest pain or shortness of breath. Tolerating oral diet. Patient is on Diflucan. Blood sugar still elevated. Continue with insulin regimen anticipate discharge to rehab in the next 24 hours. Review of systems: Constitutional: No reports of fatigue, fever, or chills Cardiovascular: No reports of chest pain or palpitations Respiratory: No reports of shortness of breath or cough GI: No reports of nausea, vomiting, or diarrhea : No reports of dysuria or retention Neurovascular: reports of generalized weakness and difficulty ambulating All medications have been reviewed PHYSICAL EXAMINATION: GENERAL: The patient is alert and oriented x2, sitting up in the chair, appears to be baseline and mentation has improved, not in any acute distress. Well developed, well nourished. Elderly appearing, obese HEENT: Pupils are round and equally reacting to light. EOMI. No scleral icterus. No conjunctival pallor. Normocephalic, atraumatic. No pharyngeal erythema. No thyromegaly. CARDIOVASCULAR: S1 and S2 muffled, irregular PULMONARY: Diminished breath sounds bilaterally otherwise chest is clear to auscultation, no wheezing or crackles. ABDOMEN: Soft, obese, nontender, nondistended, normoactive bowel sounds. No palpable organomegaly. MUSCULOSKELETAL: No joint swelling or deformity. EXTREMITIES: No cyanosis, clubbing, or pedal edema. NEUROLOGICAL: Gross neurological examination did not reveal any focal deficits. Diffusely weak SKIN: No rashes. Assessment: Acute confusion with possible acute syncopal episode, likely metabolic encephalopathy due to lactic acidosis and fall, syncope unlikely. Mentation is at baseline now. Concerns of possible acute urinary tract infection, present on admission although suspicion is low likely asymptomatic bacteriuria as patient is denying any pain, burning, or frequency with urination. Urine culture showed Gela albicans. 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 Urine culture showed Gela albicans.. Patient was started on Diflucan. Antibiotics have been discontinued. Home medications reviewed and resumed as appropriate Patient with history of diabetes recommend Accu-Cheks before meals and at bedtime along with sliding scale and diabetic diet. Adjust insulins accordingly PT/OT therapy to evaluate the patient with possible need for ECF. Case management following and there is concerns patient has no rehab days left. Referral sent and pending as patient would like to go to [facility]. Anticipate discharge in next 24 hours. Will follow-up on repeat labs and continue to monitor closely Encouraged increase activity as tolerated Objective - Vital Signs Vital signs: Vital Signs Temp 98.3 F 06/20/24 19:28 Pulse 92 06/20/24 20:03 Resp 19 06/20/24 19:28 BP 130/78 06/20/24 19:28 Pulse Ox 92 L 06/20/24 19:28 FiO2 Intake & Output 06/20/24 06/20/24 06/21/24 06:59 18:59 06:59 Intake Total 118 Output Total 600 700 Balance -600 -582 Intake: Oral 118 Output: Urine 600 700 Other: Voiding Method Diaper Diaper External Catheter External Catheter # Voids 2 - Labs CBC & Chem 7: 06/17/24 04:58 06/19/24 05:44 Labs: Abnormal Lab Results - Last 24 Hours (Table) 06/20/24 06/20/24 06/20/24 Range/Units 07:09 12:24 17:17 POC Glucose (mg/dL) 179 H 182 H 179 H (70-110) mg/dL 06/20/24 Range/Units 20:18 POC Glucose (mg/dL) 259 H (70-110) mg/dL
[2024-06-21 07:43] LABS: Glucose,Whole Blood 174 mg/dL (70-110)
--- NOTE | 2024-06-21 08:20 | P.PN ---
Subjective Progress Note Date: 06/20/24 Principal diagnosis: Reason for follow-up is symptomatic urinary tract infection Patient is 84-year-old female with a past medical history significant for diabetes mellitus hypertension CVA TIA atrial fibrillation patient was brought into the hospital concerning for weakness syncopal episode he did have a positive UA concerning for symptomatic urinary tract infection. On today's evaluation that is 06/20/2024, patient has been afebrile, patient is breathing comfortably and is currently on room air, patient denies having any significant cough no chest pain shortness of breath, patient denies nausea vomiting or diarrhea and no abdominal pain, no new symptoms. No new labs has been obtained today Objective - Vital Signs Vital signs: Vital Signs Temp 98.0 F 06/20/24 07:06 Pulse 80 06/20/24 09:00 Resp 16 06/20/24 07:06 BP 142/79 06/20/24 07:06 Pulse Ox 94 L 06/20/24 07:06 FiO2 Intake & Output 06/19/24 06/20/24 06/20/24 18:59 06:59 18:59 Intake Total 2100 Output Total 600 Balance 2100 -600 Intake: Oral 2100 Output: Urine 600 Other: Voiding Method Diaper Diaper Diaper External Catheter External Catheter # Voids 5 2 - Exam GENERAL DESCRIPTION: An elderly female up in the chair in no distress RESPIRATORY SYSTEM: Unlabored breathing , decreased breath sounds at bases HEART: S1 S2 regular rate and rhythm , ABDOMEN: Soft , no tenderness EXTREMITIES: No edema feet - Labs CBC & Chem 7: 06/17/24 04:58 06/19/24 05:44 Labs: Abnormal Lab Results - Last 24 Hours (Table) 06/19/24 06/19/24 06/19/24 Range/Units 12:11 17:09 20:22 POC Glucose (mg/dL) 199 H 228 H 197 H (70-110) mg/dL 06/20/24 Range/Units 07:09 POC Glucose (mg/dL) 179 H (70-110) mg/dL Assessment and Plan (1) Allergy to multiple antibiotics Current Visit: Yes Status: Acute Code(s): Z88.1 - ALLERGY STATUS TO OTHER ANTIBIOTIC AGENTS SNOMED Code(s): 543717596 (2) UTI (urinary tract infection) Current Visit: Yes Status: Acute Code(s): N39.0 - URINARY TRACT INFECTION, SITE NOT SPECIFIED SNOMED Code(s): 38601005 Plan: 1patient presented to hospital with weakness syncopal episode suprapubic discomfort urinary symptoms and recently did have diarrhea respective for UTI with significantly positive UA likely symptomatic urinary tract infection. 2patient with both penicillin and cefepime allergy limiting the number of antibiotics safe to use. 3patient urine has been finalized with Gela albicans patient to continue with Diflucan to finish a 5-day course of therapy Dictation was produced using [employer] dictation software. please excuse any grammatical, word or spelling errors.
[2024-06-21 09:12] LABS: Basophils # (A) 0.05 X 10*3/uL (0.00-0.10); Basophils % (A) 0.6 %; Eosinophils # (A) 0.17 X 10*3/uL (0.04-0.35); Eosinophils % (A) 2.2 %; HCT 33.3 % (37.2-46.3); Lymphocytes # (A) 1.49 X 10*3/uL (0.90-5.00); Lymphocytes % (A) 18.9 %; MCH 29.4 pg (27.0-32.0); Mean Platelet Volume 11.4 FL (9.5-12.2); Monocytes # (A) 0.71 X 10*3/uL (0.20-1.00); NRBC Per 100 WBC 0 X 10*3/uL (0.00-0.01); Neutrophils # (A) 5.42 X 10*3/uL (1.80-7.70); Neutrophils % (A) 68.7 %; Platelet Count 195 X 10*3/uL (140-440); RBC 3.74 X 10*6/uL (4.10-5.20); RDW 13.9 % (11.5-14.5); WBC 7.89 X 10*3/uL (4.50-10.00)
[2024-06-21 09:23] LABS: BUN/Creat Ratio 17.88 Ratio (12.00-20.00); Blood Urea Nitrogen 14.3 mg/dL (9.0-27.0); Calcium 8.5 mg/dL (8.7-10.3); Chloride 103 mmol/L (96-109); Glucose 177 mg/dL (70-110); Potassium 4.1 mmol/L (3.5-5.5); Sodium 138 mmol/L (135-145)
[2024-06-21 12:18] LABS: Glucose,Whole Blood 188 mg/dL (70-110)
--- NOTE | 2024-06-21 12:35 | P.DS ---
Providers Date of admission: 06/12/24 18:48 Expected date of discharge: 06/21/24 Attending physician: Ryan Moser Consults: 06/13/24 09:44 Consult Physician Urgent Consulting Provider: Al Aldana Consult Reason/Comments: uti? ams, mult abx allergies Do you want consulting provider notified?: Yes Primary care physician: Stated None Hospital Course: Final diagnosis Acute confusion with possible acute syncopal episode, likely metabolic encephalopathy due to lactic acidosis and fall, syncope unlikely. Mentation is at baseline now. Concerns of possible acute urinary tract infection, present on admission although suspicion is low likely asymptomatic bacteriuria as patient is denying any pain, burning, or frequency with urination. Urine culture showed Gela albicans. 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 Patient will follow-up with Dr. Acuna in the outpatient setting upon discharge. Patient currently has no primary care provider needs to establish on discharge. Patient is to continue with Diflucan daily for the next 5 days. Total time taken is greater than 35 minutes. Hospital course This is a 84 year-old female who was recently admitted with altered mental status and a syncopal episode with falls and recurrent falls and generalized weakness being closely monitored. Patient does have history of significant recurrent UTIs and has been monitored off antibiotic therapy. Patient did have a urine culture which showed Gela being followed by infectious disease and patient will continue on Diflucan once daily for the next 5 days to complete the course. Patient with generalized weakness evaluated by physical therapy recommending rehab and patient agreeable. Patient needs to establish with a primary care provider in the outpatient setting and this was discussed with guardian. Patient has also completed antibiotic therapy this hospitalization. Patient will not be continued on antibiotics other than Diflucan on discharge. Please refer to other consultation notes for further HPI. Currently no reports of chest pain, shortness of breath, or palpitations. Patient is afebrile. No reports of nausea or vomiting and patient is tolerating diet. Patient will be going to [facility] today. High risk for readmissions given patient's significant comorbidities. Physical exam: Gen: This is a 84-year-old female who is awake, alert and oriented x 2-3, well- developed, elderly appearing, obese HEENT: Head is atraumatic, normocephalic. Pupils equal, round. Sclerae is anicteric. NECK: Supple. No JVD. No lymphadenopathy. No thyromegaly. LUNGS: Diminished breath sounds bilaterally otherwise clear to auscultation. No wheezes or rhonchi. No intercostal retractions. HEART: S1, S2 are muffled ABDOMEN: Soft. Obese bowel sounds are present. No masses. No tenderness. EXTREMITIES: No pedal edema. No calf tenderness. NEUROLOGICAL: Patient is awake, alert and oriented x2. Cranial nerves 2 through 12 are grossly intact. Diffusely weak Please refer to medication reconciliation sheet for a list of medications. The impression and plan of care has been dictated by Dulce Fox, Nurse Practitioner as directed. Dr. Garrick MD I have performed a history and examination and MDM of this patient, discussed the same with the dictator, and agree with the dictator's assessment and plan as written ,documented as a scribe. Based on total visit time, I have performed more than 50% of the visit. Patient Condition at Discharge: Fair Plan - Discharge Summary New Discharge Prescriptions: New Insulin Detemir (Levemir) [Levemir] 16 unit SQ BID@0700,2100 each Nystatin 100,000 Unit/gm Powd [Mycostatin Powder] 1 applic TOPICAL BID each INSULIN ASPART (NovoLOG) [NovoLOG (formulary)] 0 unit SQ ACHS each Fluconazole [Diflucan] 100 mg PO DAILY 5 Days #5 tab Continue Loratadine 10 mg PO HS Ferrous Sulfate [Iron (65 MG Elemental)] 325 mg PO DAILY Escitalopram [Lexapro] 20 mg PO DAILY Atorvastatin [Lipitor] 40 mg PO HS Diclofenac Sodium Gel [Voltaren 1% Gel] 1 applic TOPICAL QID PRN PRN Reason: Pain Loperamide HCl [Imodium A-D] 2 mg PO QID PRN PRN Reason: Diarrhea Ipratropium-Albuterol Nebulize [Duoneb 0.5 mg-3 mg/3 ml Soln] 3 ml INHALATION RT-QID #100 each Acetaminophen Tab [Tylenol] 650 mg PO Q6HR PRN tab PRN Reason: Mild Pain Or Fever > 100.5 Diltiazem Cd [Cardizem CD] 180 mg PO DAILY cap Spiriva Respimat 1.25mcg/Actuation Mist 1 puff INHALATION RT-DAILY PRN PRN Reason: Shortness Of Breath Losartan [Cozaar] 25 mg PO DAILY 30 Days #30 tab Pantoprazole [Protonix] 40 mg PO AC-BRKFST 30 Days #30 tab Acetaminophen [Tylenol 8 Hour] 1,300 mg PO BID Levothyroxine Sodium [Synthroid] 12.5 mcg PO AC-BRKFST Montelukast [Singulair] 10 mg PO HS Apixaban [Eliquis] 5 mg PO BID Ipratropium-Albuterol Nebulize [Duoneb 0.5 mg-3 mg/3 ml Soln] 3 ml INHALATION RT-QID PRN PRN Reason: Shortness Of Breath Budesonide-Formot 160-4.5 Mcg [Symbicort 160-4.5 Mcg Inhaler] 2 puff INHALATION RT-BID #1 each Thiamine [Vitamin B-1] 100 mg PO DAILY tab Lacosamide [Vimpat] 100 mg PO HS #4 tab Discontinued Omeprazole 20 mg PO HS Insulin Glargine,Hum.rec.anlog [Lantus Solostar Pen] 37 units SQ HS Discharge Medication List Acetaminophen [Tylenol 8 Hour] 1,300 mg PO BID 08/25/23 [History] Apixaban [Eliquis] 5 mg PO BID 08/25/23 [History] Atorvastatin [Lipitor] 40 mg PO HS 08/25/23 [History] Diclofenac Sodium Gel [Voltaren 1% Gel] 1 applic TOPICAL QID PRN 08/25/23 [History] Escitalopram [Lexapro] 20 mg PO DAILY 08/25/23 [History] Ferrous Sulfate [Iron (65 MG Elemental)] 325 mg PO DAILY 08/25/23 [History] Ipratropium-Albuterol Nebulize [Duoneb 0.5 mg-3 mg/3 ml Soln] 3 ml INHALATION RT-QID PRN 08/25/23 [History] Levothyroxine Sodium [Synthroid] 12.5 mcg PO AC-BRKFST 08/25/23 [History] Loperamide HCl [Imodium A-D] 2 mg PO QID PRN 08/25/23 [History] Loratadine 10 mg PO HS 08/25/23 [History] Montelukast [Singulair] 10 mg PO HS 08/25/23 [History] Budesonide-Formot 160-4.5 Mcg [Symbicort 160-4.5 Mcg Inhaler] 2 puff INHALATION RT-BID #1 each 10/28/23 [Rx] Acetaminophen Tab [Tylenol] 650 mg PO Q6HR PRN tab 11/04/23 [Rx] Ipratropium-Albuterol Nebulize [Duoneb 0.5 mg-3 mg/3 ml Soln] 3 ml INHALATION RT-QID #100 each 11/04/23 [Rx] Diltiazem Cd [Cardizem CD] 180 mg PO DAILY cap 12/09/23 [Rx] Thiamine [Vitamin B-1] 100 mg PO DAILY tab 12/09/23 [Rx] Spiriva Respimat 1.25mcg/Actuation Mist 1 puff INHALATION RT-DAILY PRN 05/10/24 [History] Losartan [Cozaar] 25 mg PO DAILY 30 Days #30 tab 05/14/24 [Rx] Pantoprazole [Protonix] 40 mg PO AC-BRKFST 30 Days #30 tab 05/14/24 [Rx] Fluconazole [Diflucan] 100 mg PO DAILY 5 Days #5 tab 06/21/24 [Rx] INSULIN ASPART (NovoLOG) [NovoLOG (formulary)] 0 unit SQ ACHS each 06/21/24 [Rx] Insulin Detemir (Levemir) [Levemir] 16 unit SQ BID@0700,2100 each 06/21/24 [Rx] Lacosamide [Vimpat] 100 mg PO HS #4 tab 06/21/24 [Rx] Nystatin 100,000 Unit/gm Powd [Mycostatin Powder] 1 applic TOPICAL BID each 06/21/24 [Rx] Follow up Appointment(s)/Referral(s): Efren Acuna MD [STAFF PHYSICIAN] - 1 Week Activity/Diet/Wound Care/Special Instructions: Patient is going to [employer] [facility] as tolerated Follow-up and establish with primary care provider on discharge Continue taking Diflucan daily for 5 days per ID recommendations Continue monitoring Accu-Cheks before meals and at bedtime and continue with current regimen Continue consistent carb diet Discharge Disposition: TRANSFER TO SNF/ECF
[2024-06-21 14:12] VITALS: BP 108/68; RESP 17; TEMP 98.3
[2024-06-21 15:59] VITALS: PULSE 91
--- NOTE | 2024-06-21 15:59 | P.PN ---
Subjective Progress Note Date: 06/21/24 Principal diagnosis: Reason for follow-up is symptomatic urinary tract infection Patient is 84-year-old female with a past medical history significant for diabetes mellitus hypertension CVA TIA atrial fibrillation patient was brought into the hospital concerning for weakness syncopal episode he did have a positive UA concerning for symptomatic urinary tract infection. On today's evaluation that is 06/21/2024, Patient is afebrile this morning patient denies having any chest pain shortness of breath or cough, the patient is breathing comfortably and currently on room air, patient denies any abdominal pain no diarrhea no nausea no vomiting, hemorrhoidal symptoms. Patient white count 7.89, creatinine 0.8 Objective - Vital Signs Vital signs: Vital Signs Temp 98.3 F 06/21/24 12:25 Pulse 96 06/21/24 15:47 Resp 17 06/21/24 12:25 BP 108/68 06/21/24 12:25 Pulse Ox 96 06/21/24 12:25 FiO2 Intake & Output 06/20/24 06/21/24 06/21/24 18:59 06:59 18:59 Intake Total 118 120 Output Total 700 1300 Balance -582 -1300 120 Intake: Oral 118 120 Output: Urine 700 1300 Other: Voiding Method Diaper Diaper Diaper External Catheter External Catheter External Catheter - Exam GENERAL DESCRIPTION: An elderly female up in the chair in no distress RESPIRATORY SYSTEM: Unlabored breathing , decreased breath sounds at bases HEART: S1 S2 regular rate and rhythm , ABDOMEN: Soft , no tenderness EXTREMITIES: No edema feet - Labs CBC & Chem 7: 06/21/24 03:43 06/21/24 03:43 Labs: Abnormal Lab Results - Last 24 Hours (Table) 06/20/24 06/20/24 06/21/24 Range/Units 17:17 20:18 03:43 RBC 3.74 L (4.10-5.20) X 10*6/uL Hgb 11.0 L (12.0-15.0) g/dL Hct 33.3 L (37.2-46.3) % Immature Gran # 0.05 H (0.00-0.04) X 10*3/uL Glucose (70-110) mg/dL POC Glucose (mg/dL) 179 H 259 H (70-110) mg/dL Calcium (8.7-10.3) mg/dL 06/21/24 06/21/24 06/21/24 Range/Units 03:43 07:41 12:16 RBC (4.10-5.20) X 10*6/uL Hgb (12.0-15.0) g/dL Hct (37.2-46.3) % Immature Gran # (0.00-0.04) X 10*3/uL Glucose 177 H (70-110) mg/dL POC Glucose (mg/dL) 174 H 188 H (70-110) mg/dL Calcium 8.5 L (8.7-10.3) mg/dL Assessment and Plan (1) Allergy to multiple antibiotics Current Visit: Yes Status: Acute Code(s): Z88.1 - ALLERGY STATUS TO OTHER ANTIBIOTIC AGENTS SNOMED Code(s): 391398655 (2) UTI (urinary tract infection) Current Visit: Yes Status: Acute Code(s): N39.0 - URINARY TRACT INFECTION, SITE NOT SPECIFIED SNOMED Code(s): 32976175 Plan: 1patient presented to hospital with weakness syncopal episode suprapubic discomfort urinary symptoms and recently did have diarrhea respective for UTI with significantly positive UA likely symptomatic urinary tract infection. 2patient with both penicillin and cefepime allergy limiting the number of antibiotics safe to use. 3patient urine has been finalized with Gela albicans patient to continue with Diflucan to finish a 5-day course of therapy no need for IV antibiotics on discharge Dictation was produced using [employer] dictation software. please excuse any grammatical, word or spelling errors. Time with Patient: Less than 30
--- NOTE | 2024-07-11 11:20 | CDI ---
Documentation Clarification Form Date: 07/11/2024 12:00:00 AM From: Coretta Delgadillo Phone: Admit Date: 06/13/2024 02:07:00 PM Patient Name: Krissy Anders Visit Number: [id number] Discharge Date: 06/20/2024 03:44:00 PM ATTENTION: The Clinical Documentation Specialists (CDI) and [facility] Coding Staff appreciate your assistance in clarifying documentation. Please respond to the clarification below the line at the bottom and electronically sign. The CDI & [facility] Coding staff will review the response and follow-up if needed. Please note: Queries are made part of the Legal Health Record. If you have any questions, please contact the author of this message via ITS. Doctor/Provider: Vikram Anguiano Cellulitis is documented on 06/13 ED note. Additional clarification regarding the type of cellulitis is requested. History/risk factors: DM2, HTN, HLD, Dementia, Depression, Gout Clinical Indicators: Patient presented on 06/13 with Acute Pyelonephritis and Left lower extremity cellulitis. 06/13 WBC - 11.9 Treatment: Vancomycin IV, Ceftriaxone IV 1g daily, discharged on oral Doxycycline 100mg BID 7 days Please clarify the etiology of the cellulitis, if known: [ ] Cellulitis is a diabetic skin complication [ ] Cellulitis is not a diabetic skin complication [ ] Other, please specify: [ ] Unable to determine MTDD
== END 2024-06-21 17:15 | DRG 757 ==
LOC: EC 17:07 → 3SCARD 18:48 → 5NMEDONC 06-13 12:06
PROVIDERS: ADMIT Hospitalist; ATTEND Hospitalist
DX: B37.49 Other urogenital candidiasis (principal); G93.41 Metabolic encephalopathy; E87.20 Acidosis, unspecified; I10 Essential (primary) hypertension; E11.9 Type 2 diabetes mellitus without complications; E66.9 Obesity, unspecified; I48.0 Paroxysmal atrial fibrillation; Z68.33 Body mass index [BMI] 33.0-33.9, adult; R29.6 Repeated falls; R41.3 Other amnesia; R26.9 Unspecified abnormalities of gait and mobility; Z87.891 Personal history of nicotine dependence; Z88.1 Allergy status to other antibiotic agents; Z79.4 Long term (current) use of insulin; Z79.51 Long term (current) use of inhaled steroids; Z79.01 Long term (current) use of anticoagulants; Z79.890 Hormone replacement therapy; Z79.899 Other long term (current) drug therapy; Z86.73 Personal history of transient ischemic attack (TIA), and cerebral infarction without residual deficits; Z88.0 Allergy status to penicillin
CPT/HCPCS: 36415; 71046; 80048; 80053; 81001; 83036; 83605; 83735; 85025; 87086; 93005; 94640; 96365; 96366; 96367; 99285

== ENCOUNTER 2024-07-29 23:48 | Inpatient (IN) | payer MEDICARE ==
[2024-07-29 23:57] LABS: Glucose,Whole Blood 82 mg/dL (70-110)
[2024-07-30] MEDS: SODIUM CHLORIDE 0.9% 1,000 ML IV STA (00:08)
--- NOTE | 2024-07-30 00:11 | ED ---
Weakness HPI - General Stated complaint: Altered Mental Time Seen by Provider: 07/29/24 23:55 Source: EMS, RN notes reviewed, old records reviewed Mode of arrival: EMS Limitations: no limitations - History of Present Illness Initial comments: This is an 84-year-old female to ER with significant weakness persistent weakness here in the emergency room and paresthesias patient's presenting by EMS called by her daughter who is concerned for the patient's neurological status for the last few days mental status activity level and activities of daily living MD Complaint: generalized weakness, focal weakness, numbness, tingling -: hour(s) Location: generalized, LUE, L hand, LLE Severity: moderate Severity scale (1-10): 5 Quality: tingling, numbness Consistency: intermittent Improves with: none Worsens with: none - Related Data Home Medications Medication Instructions Recorded Confirmed Acetaminophen [Tylenol 8 Hour] 1,300 mg PO BID 08/25/23 07/30/24 Apixaban [Eliquis] 5 mg PO BID 08/25/23 07/30/24 Atorvastatin [Lipitor] 40 mg PO HS 08/25/23 07/30/24 Diclofenac Sodium Gel [Voltaren 1% 1 applic TOPICAL QID PRN 08/25/23 07/30/24 Gel] Escitalopram [Lexapro] 20 mg PO DAILY 08/25/23 07/30/24 Ferrous Sulfate [Iron (65 MG 325 mg PO DAILY 08/25/23 07/30/24 Elemental)] Ipratropium-Albuterol Nebulize 3 ml INHALATION RT-QID PRN 08/25/23 07/30/24 [Duoneb 0.5 mg-3 mg/3 ml Soln] Levothyroxine Sodium [Synthroid] 12.5 mcg PO AC-BRKFST 08/25/23 07/30/24 Loperamide HCl [Imodium A-D] 2 mg PO QID PRN 08/25/23 07/30/24 Loratadine 10 mg PO HS 08/25/23 07/30/24 Montelukast [Singulair] 10 mg PO HS 08/25/23 07/30/24 Spiriva Respimat 1.25mcg/Actuation 1 puff INHALATION RT-DAILY PRN 05/10/24 07/30/24 Mist INSULIN ASPART (NovoLOG) [NovoLOG See Protocol SQ ACHS 07/30/24 07/30/24 (formulary)] Previous Rx's Medication Instructions Recorded Budesonide-Formot 160-4.5 Mcg 2 puff INHALATION RT-BID #1 each 10/28/23 [Symbicort 160-4.5 Mcg Inhaler] Acetaminophen Tab [Tylenol] 650 mg PO Q6HR PRN tab 11/04/23 Ipratropium-Albuterol Nebulize 3 ml INHALATION RT-QID #100 each 11/04/23 [Duoneb 0.5 mg-3 mg/3 ml Soln] Diltiazem Cd [Cardizem CD] 180 mg PO DAILY cap 12/09/23 Thiamine [Vitamin B-1] 100 mg PO DAILY tab 12/09/23 Losartan [Cozaar] 25 mg PO DAILY 30 Days #30 tab 05/14/24 Pantoprazole [Protonix] 40 mg PO AC-BRKFST 30 Days #30 tab 05/14/24 Insulin Detemir (Levemir) [Levemir] 16 unit SQ BID@0700,2100 each 06/21/24 Lacosamide [Vimpat] 100 mg PO HS #4 tab 06/21/24 Nystatin 100,000 Unit/gm Powd 1 applic TOPICAL BID each 06/21/24 [Mycostatin Powder] Phenazopyridine [Pyridium] 100 mg PO TID 2 Days #6 tab 08/03/24 Sulfamethox-Tmp 800-160Mg [Bactrim 1 tab PO Q12HR 5 Days #10 tab 08/03/24 DS 800-160 mg] Allergies Allergy/AdvReac Type Severity Reaction Status Date / Time Penicillins Allergy Rash/Hives Verified 07/30/24 09:15 cefepime AdvReac Confusion Verified 07/30/24 09:15 Review of Systems ROS Statement: Those systems with pertinent positive or pertinent negative responses have been documented in the HPI. ROS Other: All systems not noted in ROS Statement are negative. Past Medical History Past Medical History: Atrial Fibrillation, CVA/TIA, Diabetes Mellitus, Hypertension, Memory Impairment Additional Past Medical History / Comment(s): UTI, falls History of Any Multi-Drug Resistant Organisms: VRE Date of last positivie culture/infection: 11/01/23 MDRO Source:: Urine Past Surgical History: Appendectomy Additional Past Surgical History / Comment(s): patient poor historian Past Anesthesia/Blood Transfusion Reactions: No Reported Reaction Past Psychological History: No Psychological Hx Reported Smoking Status: Former smoker Past Alcohol Use History: None Reported Past Drug Use History: None Reported - Past Family History Father History Unknown: Yes General Exam Limitations: no limitations General appearance: alert, in no apparent distress, anxious Head exam: Present: atraumatic, normocephalic, normal inspection Eye exam: Present: normal appearance, PERRL, EOMI. Absent: scleral icterus, conjunctival injection, periorbital swelling ENT exam: Present: normal exam, mucous membranes moist Neck exam: Present: normal inspection. Absent: tenderness, meningismus, lymphadenopathy Respiratory exam: Present: normal lung sounds bilaterally. Absent: respiratory distress, wheezes, rales, rhonchi, stridor Cardiovascular Exam: Present: regular rate, normal rhythm, normal heart sounds. Absent: systolic murmur, diastolic murmur, rubs, gallop, clicks GI/Abdominal exam: Present: soft, normal bowel sounds. Absent: distended, tenderness, guarding, rebound, rigid Extremities exam: Present: normal inspection, full ROM, normal capillary refill. Absent: tenderness, pedal edema, joint swelling, calf tenderness Back exam: Present: normal inspection Neurological exam: Present: alert, oriented X3, CN II-XII intact Psychiatric exam: Present: normal affect, normal mood Skin exam: Present: warm, dry, intact, normal color. Absent: rash Course Vital Signs 07/29/24 07/30/24 07/30/24 23:54 00:19 01:00 Temperature 97.9 F Pulse Rate 79 70 71 Respiratory 18 16 18 Rate Blood Pressure 133/73 127/54 122/73 O2 Sat by Pulse 92 L 97 97 Oximetry 07/30/24 03:30 Temperature Pulse Rate 71 Respiratory 16 Rate Blood Pressure 122/76 O2 Sat by Pulse 97 Oximetry - Reevaluation(s) Reevaluation #1: 07/30/24 00:10 Medical records reviewed Reevaluation #2: 07/30/24 02:37 patient symptoms improved Reevaluation #3: 07/30/24 02:39 patient informed of results and questions answered Reevaluation #4: Was pt. sent in by a medical professional or institution (, PA, HISTORY DEPARTMENT CHAIR, urgent care, hospital, or long term...) When possible be specific @ -no Did you speak to anyone other than the patient for history (EMS, parent, family, police, friend...)? What history was obtained from this source @ -no Did you review nursing and triage notes (agree or disagree)? Why? @ -agree Are old charts reviewed (outside hosp., previous admission, EMS record, old EKG, old radiological studies, urgent care reports/EKG's, long term records)? Report findings @ -yes Differential Diagnosis (chest pain, altered mental status, abdominal pain women, abdominal pain men, vaginal bleeding, weakness, fever, dyspnea, syncope, headache, dizziness, GI bleed, back pain, seizure, CVA, palpatations, mental health, musculoskeletal)? @ -prior EKG interpreted by me (3pts min.). @ -yes X-rays interpreted by me (1pt min.). @ -yes negative for acute disease CT interpreted by me (1pt min.). @ -yes negative for acute disease U/S interpreted by me (1pt. min.). @ -no What testing was considered but not performed or refused? (CT, X-rays, U/S, labs)? Why? @ -none What meds were considered but not given or refused? Why? @ -none Did you discuss the management of the patient with other professionals (professionals i.e. , PA, HISTORY DEPARTMENT CHAIR, lab, RT, psych nurse, social work job titles, plumbing inspector, teacher, information technology officer, case resource manager)? Give summary @ -no Was smoking cessation discussed for >3mins.? @ -no Was critical care preformed (if so, how long)? @ -no Were there social determinants of health that impacted care today? How? (Homelessness, low income, unemployed, alcoholism, drug addiction, transportation, low edu. Level, literacy, decrease access to med. care, prison, rehab)? @ -none Was there de-escalation of care discussed even if they declined (Discuss DNR or withdrawal of care, Hospice)? DNR status @ -no What co-morbidities impacted this encounter? (DM, HTN, Smoking, COPD, CAD, Cancer, CVA, ARF, Chemo, Hep., AIDS, mental health diagnosis, sleep apnea, morbid obesity)? @ -none Was patient admitted / discharged? Hospital course, mention meds given and route, prescriptions, significant lab abnormalities, going to OR and other pertinent info. @ - 84 female to the ER for a few show patient presents today for evaluation of paresthesias weakness and will be admitted for observation Admitted Undiagnosed new problem with uncertain prognosis? @ -no Drug Therapy requiring intensive monitoring for toxicity (Heparin, Nitro, Insulin, Cardizem)? @ -no Were any procedures done? @ -no Diagnosis/symptom? @ -Paresthesia or weakness Acute, or Chronic, or Acute on Chronic? @ -Acute Uncomplicated (without systemic symptoms) or Complicated (systemic symptoms)? @ -Complicated Side effects of treatment? @ -no Exacerbation, Progression, or Severe Exacerbation? @ -exacerbation Poses a threat to life or bodily function? How? (Chest pain, [place], [place], pneumonia, PE, COPD, DKA, ARF, appy, cholecystitis, CVA, Diverticulitis, Homicidal, Suicidal, threat to staff... and all critical care pts) @ -yes extremes of age Reevaluation #5: Differential Weakness: Hypoglycemia, shock, sepsis, hyponatremia, anemia, infection, [place], ETOH, adverse medicine reaction, overdose, stroke, this is not meant to be an all-inclusive list. EKG Findings - EKG Comments: EKG Findings:: EKG is sinus 78 KS 181 QRS 81 QTc 414 - EKG Results: EKG: interpreted by DORIAN Medical Decision Making - Medical Decision Making 84 female to the ER for a few show patient presents today for evaluation of paresthesias weakness and will be admitted for observation - Lab Data Result diagrams: 08/01/24 04:22 08/03/24 04:43 Lab Results 07/29/24 07/30/24 07/30/24 Range/Units 23:56 00:06 00:06 WBC 14.2 H (3.8-10.6) k/uL RBC 4.60 (3.80-5.40) m/uL Hgb 13.2 (11.4-16.0) gm/dL Hct 41.3 (34.0-46.0) % MCV 89.8 (80.0-100.0) fL MCH 28.7 (25.0-35.0) pg MCHC 32.0 (31.0-37.0) g/dL RDW 13.9 (11.5-15.5) % Plt Count 237 (150-450) k/uL MPV 8.0 Neutrophils % 85 % Lymphocytes % 8 % Monocytes % 7 % Eosinophils % 0 % Basophils % 0 % Neutrophils # 12.0 H (1.3-7.7) k/uL Lymphocytes # 1.1 (1.0-4.8) k/uL Monocytes # 0.9 (0-1.0) k/uL Eosinophils # 0.1 (0-0.7) k/uL Basophils # 0.0 (0-0.2) k/uL PT 10.8 (10.0-12.5) sec INR 1.0 (<1.2) APTT 25.4 (22.0-30.0) sec Sodium (137-145) mmol/L Potassium (3.5-5.1) mmol/L Chloride (98-107) mmol/L Carbon Dioxide (22-30) mmol/L Anion Gap mmol/L BUN (7-17) mg/dL Creatinine (0.52-1.04) mg/dL Est GFR (CKD-EPI)AfAm (>60 ml/min/1.73 sqM) Est GFR (CKD-EPI)NonAf (>60 ml/min/1.73 sqM) Glucose (74-99) mg/dL POC Glucose (mg/dL) 82 (70-110) mg/dL POC Glu Director Of Preclinical Research ID Damion Marquis Plasma Lactic Acid Victor Hugo (0.7-2.0) mmol/L Calcium (8.4-10.2) mg/dL Phosphorus (2.5-4.5) mg/dL Magnesium (1.6-2.3) mg/dL Total Bilirubin (0.2-1.3) mg/dL AST (14-36) U/L ALT (4-34) U/L Alkaline Phosphatase (38-126) U/L Troponin I (0.000-0.034) ng/mL NT-Pro-B Natriuret Pep pg/mL Total Protein (6.3-8.2) g/dL Albumin (3.5-5.0) g/dL TSH (0.465-4.680) mIU/L 07/30/24 07/30/24 07/30/24 Range/Units 00:06 00:06 00:06 WBC (3.8-10.6) k/uL RBC (3.80-5.40) m/uL Hgb (11.4-16.0) gm/dL Hct (34.0-46.0) % MCV (80.0-100.0) fL MCH (25.0-35.0) pg MCHC (31.0-37.0) g/dL RDW (11.5-15.5) % Plt Count (150-450) k/uL MPV Neutrophils % % Lymphocytes % % Monocytes % % Eosinophils % % Basophils % % Neutrophils # (1.3-7.7) k/uL Lymphocytes # (1.0-4.8) k/uL Monocytes # (0-1.0) k/uL Eosinophils # (0-0.7) k/uL Basophils # (0-0.2) k/uL PT (10.0-12.5) sec INR (<1.2) APTT (22.0-30.0) sec Sodium 140 (137-145) mmol/L Potassium 3.3 L (3.5-5.1) mmol/L Chloride 108 H (98-107) mmol/L Carbon Dioxide 23 (22-30) mmol/L Anion Gap 9 mmol/L BUN 15 (7-17) mg/dL Creatinine 0.66 (0.52-1.04) mg/dL Est GFR (CKD-EPI)AfAm >90 (>60 ml/min/1.73 sqM) Est GFR (CKD-EPI)NonAf 81 (>60 ml/min/1.73 sqM) Glucose 81 (74-99) mg/dL POC Glucose (mg/dL) (70-110) mg/dL POC Glu Director Of Preclinical Research ID Plasma Lactic Acid Victor Hugo 1.6 (0.7-2.0) mmol/L Calcium 9.2 (8.4-10.2) mg/dL Phosphorus 4.4 (2.5-4.5) mg/dL Magnesium 1.8 (1.6-2.3) mg/dL Total Bilirubin 0.9 (0.2-1.3) mg/dL AST 19 (14-36) U/L ALT 12 (4-34) U/L Alkaline Phosphatase 129 H (38-126) U/L Troponin I <0.012 (0.000-0.034) ng/mL NT-Pro-B Natriuret Pep 168 pg/mL Total Protein 6.9 (6.3-8.2) g/dL Albumin 4.1 (3.5-5.0) g/dL TSH 3.930 (0.465-4.680) mIU/L 07/30/24 07/30/24 Range/Units 00:42 01:45 WBC (3.8-10.6) k/uL RBC (3.80-5.40) m/uL Hgb (11.4-16.0) gm/dL Hct (34.0-46.0) % MCV (80.0-100.0) fL MCH (25.0-35.0) pg MCHC (31.0-37.0) g/dL RDW (11.5-15.5) % Plt Count (150-450) k/uL MPV Neutrophils % % Lymphocytes % % Monocytes % % Eosinophils % % Basophils % % Neutrophils # (1.3-7.7) k/uL Lymphocytes # (1.0-4.8) k/uL Monocytes # (0-1.0) k/uL Eosinophils # (0-0.7) k/uL Basophils # (0-0.2) k/uL PT (10.0-12.5) sec INR (<1.2) APTT (22.0-30.0) sec Sodium (137-145) mmol/L Potassium (3.5-5.1) mmol/L Chloride (98-107) mmol/L Carbon Dioxide (22-30) mmol/L Anion Gap mmol/L BUN (7-17) mg/dL Creatinine (0.52-1.04) mg/dL Est GFR (CKD-EPI)AfAm (>60 ml/min/1.73 sqM) Est GFR (CKD-EPI)NonAf (>60 ml/min/1.73 sqM) Glucose (74-99) mg/dL POC Glucose (mg/dL) 65 L 72 (70-110) mg/dL POC Glu Director Of Preclinical Research ID Bruno Kandis Bruno Kandis Plasma Lactic Acid Victor Hugo (0.7-2.0) mmol/L Calcium (8.4-10.2) mg/dL Phosphorus (2.5-4.5) mg/dL Magnesium (1.6-2.3) mg/dL Total Bilirubin (0.2-1.3) mg/dL AST (14-36) U/L ALT (4-34) U/L Alkaline Phosphatase (38-126) U/L Troponin I (0.000-0.034) ng/mL NT-Pro-B Natriuret Pep pg/mL Total Protein (6.3-8.2) g/dL Albumin (3.5-5.0) g/dL TSH (0.465-4.680) mIU/L - EKG Data -: EKG Interpreted by Me - Radiology Data Radiology results: report reviewed (CT brain and chest x-ray is negative for acute disease), image reviewed Disposition Clinical Impression: Weakness, Dehydration, Paresthesia Disposition: ADMITTED IP TO THIS HOSP Condition: Fair Is patient prescribed a controlled substance at d/c from ED?: No Time of Disposition: 02:30
[2024-07-30 00:43] LABS: Basophils % (A) 0 %; Eosinophils # (A) 0.1 k/uL (0-0.7); Eosinophils % (A) 0 %; HCT 41.3 % (34.0-46.0); HGB 13.2 gm/dL (11.4-16.0); Lymphocytes # (A) 1.1 k/uL (1.0-4.8); Lymphocytes % (A) 8 %; MCH 28.7 pg (25.0-35.0); MCV 89.8 fL (80.0-100.0); Monocytes # (A) 0.9 k/uL (0-1.0); Monocytes % (A) 7 %; Neutrophils % (A) 85 %; Platelet Count 237 k/uL (150-450); RDW 13.9 % (11.5-15.5); WBC 14.2 k/uL (3.8-10.6)
[2024-07-30 00:43] LABS: Glucose,Whole Blood 65 mg/dL (70-110)
[2024-07-30 00:57] LABS: Partial Thromboplastin Time 25.4 sec (22.0-30.0); Prothrombin Time 10.8 sec (10.0-12.5)
[2024-07-30 01:07] LABS: ALT 12 U/L (4-34); AST 19 U/L (14-36); African American GFR (CKD) >90 (>60 ml/min/1.73 sqM); Albumin 4.1 g/dL (3.5-5.0); Alkaline Phosphatase 129 U/L (38-126); Anion Gap 9 mmol/L; Blood Urea Nitrogen 15 mg/dL (7-17); Calcium 9.2 mg/dL (8.4-10.2); Carbon Dioxide 23 mmol/L (22-30); Chloride 108 mmol/L (98-107); Glucose 81 mg/dL (74-99); Magnesium 1.8 mg/dL (1.6-2.3); Non-African American GFR(CKD) 81 (>60 ml/min/1.73 sqM); Phosphorus 4.4 mg/dL (2.5-4.5); Potassium 3.3 mmol/L (3.5-5.1); Sodium 140 mmol/L (137-145); Total Bilirubin 0.9 mg/dL (0.2-1.3); Total Protein 6.9 g/dL (6.3-8.2)
[2024-07-30 01:16] LABS: NT-Pro-B-Type Natriuretic Pept 168 pg/mL
--- NOTE | 2024-07-30 01:22 | XR ---
EXAM: XR Chest, 1 View CLINICAL HISTORY: ITS.REASON XR Reason: weak TECHNIQUE: Frontal view of the chest. COMPARISON: No relevant prior studies available. IMPRESSION: Cardiomegaly. Mild vascular congestion
[2024-07-30] MEDS: POTASSIUM BICARB-CITRIC ACID 25 MEQ TABLET.EFF PO ONE (01:44)
[2024-07-30 01:47] LABS: Glucose,Whole Blood 72 mg/dL (70-110)
[2024-07-30] MEDS ORDERED: NALOXONE 0.4 MG/ML 1 ML VIAL IV PRN (02:33)
[2024-07-30] MEDS ORDERED: ONDANSETRON 4 MG/2 ML VIAL IVP PRN (02:33)
[2024-07-30] MEDS: SODIUM CHLORIDE 0.9% 1,000 ML IV SCH (02:35)
[2024-07-30] MEDS ORDERED: ACETAMINOPHEN TAB 325 MG TAB PO PRN ×2 (03:07→09:55)
--- NOTE | 2024-07-30 03:16 | CT ---
EXAM: CT Head Without Intravenous Contrast CLINICAL HISTORY: ITS.REASON CT Reason: ams TECHNIQUE: Axial computed tomography images of the head/brain without intravenous contrast. CTDI is 49.2 mGy and DLP is 1197.4 mGy-cm. This CT exam was performed using one or more of the following dose reduction techniques: automated exposure control, adjustment of the mA and/or kV according to patient size, and/or use of iterative reconstruction technique. COMPARISON: No relevant prior studies available. FINDINGS: Brain: No hemorrhage, herniation, or mass effect. Chronic microvascular ischemic changes. Ventricles: No hydrocephalus. Age related cerebral volume loss. Bones/joints: Unremarkable. Soft tissues: Unremarkable. Sinuses: No air fluid levels. Mastoid air cells: Clear. IMPRESSION: No acute hemorrhage, hydrocephalus, or mass effect.
[2024-07-30 04:18] LABS: Appearance,Urine Cloudy (Clear); Bacteria,Urine Moderate /hpf; Bilirubin,Urine Negative (Negative); Blood,Urine Negative (Negative); Budding Yeast,Urine Occasional /hpf; Color,Urine Colorless; Glucose,Urine (UA) Negative (Negative); Hyaline Casts,Urine 1 /lpf (0-2); Ketones,Urine Negative (Negative); Leukocyte Esterase,Urine Large (Negative); Mucus,Urine Rare /hpf; Nitrite,Urine Positive (Negative); PH, Urine 5.5 (5.0-8.0); Protein,Urine Negative (Negative); RBC,Urine 18 /hpf (0-5); Specific Gravity,Urine 1.007 (1.001-1.035); Squamous Epithelial Cell,Urine 2 /hpf (0-4); Urobilinogen,Urine <2.0 mg/dL (<2.0); WBC,Urine 55 /hpf (0-5)
[2024-07-30 05:33] LABS: Glucose,Whole Blood 76 mg/dL (70-110)
[2024-07-30] MEDS ORDERED: Potassium Replacement Protocol 1 EACH MISC MISCELLANE PRN (09:54)
[2024-07-30] MEDS ORDERED: TIOTROPIUM 2.5 MCG INHALER INHALATION PRN (09:55)
[2024-07-30] MEDS ORDERED: IPRATROPIUM-ALBUTEROL 3 ML NEB INHALATION PRN (09:55)
[2024-07-30] MEDS ORDERED: DICLOFENAC SODIUM GEL 50 GM TUBE TOPICAL PRN (09:55)
[2024-07-30] MEDS ORDERED: LOPERAMIDE 2 MG CAP PO PRN (09:55)
[2024-07-30] MEDS ORDERED: DEXTROSE 50% SYRINGE 50 ML IVP PRN ×2 (09:58)
[2024-07-30] MEDS: THIAMINE 100 MG TAB PO SCH (11:25)
[2024-07-30] MEDS: SYMBICORT 160-4.5 MCG INHALER INHALATION SCH (11:25)
[2024-07-30] MEDS: LEVOTHYROXINE 25 MCG TAB PO SCH (11:26)
[2024-07-30] MEDS: APIXABAN 5 MG TAB PO SCH (11:26)
[2024-07-30] MEDS: LOSARTAN 25 MG TAB PO SCH (11:26)
[2024-07-30] MEDS: FERROUS SULFATE 325 MG TAB PO SCH (11:26)
[2024-07-30] MEDS: POTASSIUM CHLORIDE ER 20 MEQ TAB.ER PO SCH (11:26)
[2024-07-30] MEDS: PANTOPRAZOLE 40 MG TABLET PO SCH (11:27)
[2024-07-30] MEDS: NYSTATIN 100,000 UNIT/GM POWD 15 GM TOPICAL SCH (11:27)
[2024-07-30] MEDS: ESCITALOPRAM 20 MG TAB PO SCH (11:27)
[2024-07-30] MEDS: DILTIAZEM CD 180 MG CAP.ER.24H PO SCH (11:27)
[2024-07-30] MEDS: IPRATROPIUM-ALBUTEROL 3 ML NEB INHALATION SCH (11:29)
[2024-07-30 12:01] LABS: Glucose,Whole Blood 176 mg/dL (70-110)
[2024-07-30] MEDS: INSULIN ASPART (NovoLOG) 100 UNIT/ML VIAL SQ SCH (12:26)
[2024-07-30 17:04] LABS: Glucose,Whole Blood 217 mg/dL (70-110)
[2024-07-30 20:20] LABS: Glucose,Whole Blood 196 mg/dL (70-110)
[2024-07-30] MEDS: MONTELUKAST 10 MG TAB PO SCH (20:42)
[2024-07-30] MEDS: ATORVASTATIN 40 MG TAB PO SCH (20:42)
[2024-07-30] MEDS: INSULIN DETEMIR (LEVEMIR) 100 UNIT/ML SYR SQ SCH (20:42)
[2024-07-30] MEDS: LACOSAMIDE 50 MG TABLET PO SCH (20:42)
[2024-07-30] MEDS: LORATADINE 10 MG TAB PO SCH (20:42)
--- NOTE | 2024-07-30 23:50 | HP ---
HISTORY AND PHYSICAL CHIEF COMPLAINT: Change in mental status, UTI. HISTORY OF PRESENT ILLNESS: This is an 84-year-old woman with a past medical history of multiple medical problems including atrial fibrillation, CVA, TIA, was admitted with change in mental status. Family is concerned with change in mental status. CT scan showed no acute stroke. UTI was suspected. The patient is being admitted for further evaluation and treatment. There is no history of any fever, rigors, or chills. PAST MEDICAL HISTORY: History of atrial fibrillation, CVA, TIA. Rest of the history and rest of the chart is also reviewed. HOME MEDICATIONS: Reviewed including thiamine, dose and rest of medications reviewed. ALLERGIES: Penicillin, cefepime. FAMILY HISTORY: Could not be taken as the patient is confused. SOCIAL HISTORY: Could not be taken as the patient is confused. REVIEW OF SYSTEMS: Could not be taken as the patient is confused. PHYSICAL EXAMINATION: VITAL SIGNS: Pulse is 98, blood pressure 133/76, respirations 17. HEENT: Conjunctivae normal. CARDIOVASCULAR: S1, S2. RESPIRATIONS: Breath sounds diminished at the bases. No rhonchi. ABDOMEN: Soft, nontender. LEGS: No edema. NERVOUS SYSTEM: Diffusely weak. LABORATORY DATA: Reviewed. ASSESSMENT: 1. Change in mental status, metabolic encephalopathy. 2. Acute urinary tract infection, present on admission. 3. Atrial fibrillation. 4. Diabetes mellitus, type 2. 5. History of memory impairment. 6. History of vancomycin-resistant Enterococcus. RECOMMENDATIONS AND DISCUSSION: This is an 84-year-old woman, who presented with multiple complex medical issues, we will monitor the patient closely. Continue the current medications, empiric antibiotics. Infectious Disease evaluation. Otherwise, stroke thought to be unlikely. Resume the home medications. Guarded prognosis. Further recommendations to follow. MMODL / IJN: [id number] /
[2024-07-31 06:27] LABS: Glucose,Whole Blood 84 mg/dL (70-110)
[2024-07-31 09:25] LABS: Basophils # (A) 0.05 X 10*3/uL (0.00-0.10); Basophils % (A) 0.7 %; Eosinophils # (A) 0.12 X 10*3/uL (0.04-0.35); Eosinophils % (A) 1.6 %; HCT 34.8 % (37.2-46.3); HGB 10.9 g/dL (12.0-15.0); Lymphocytes # (A) 2.22 X 10*3/uL (0.90-5.00); MCH 28.1 pg (27.0-32.0); MCHC 31.3 g/dL (32.0-37.0); MCV 89.7 FL (80.0-97.0); Mean Platelet Volume 11.1 FL (9.5-12.2); Monocytes # (A) 0.55 X 10*3/uL (0.20-1.00); Monocytes % (A) 7.4 %; NRBC Per 100 WBC 0 X 10*3/uL (0.00-0.01); Neutrophils # (A) 4.41 X 10*3/uL (1.80-7.70); Neutrophils % (A) 59.8 %; Platelet Count 214 X 10*3/uL (140-440); RBC 3.88 X 10*6/uL (4.10-5.20); WBC 7.39 X 10*3/uL (4.50-10.00)
[2024-07-31 09:44] LABS: ALT 9 U/L (8-44); AST 15 U/L (13-35); Albumin 3.3 g/dL (3.8-4.9); Albumin/Globulin Ratio 1.65 Ratio (1.60-3.17); Alkaline Phosphatase 113 U/L (41-126); BUN/Creat Ratio 12.12 Ratio (12.00-20.00); Blood Urea Nitrogen 9.7 mg/dL (9.0-27.0); Calcium 8.1 mg/dL (8.7-10.3); Carbon Dioxide 23.7 mmol/L (21.6-31.8); Chloride 110 mmol/L (96-109); Glucose 88 mg/dL (70-110); Magnesium 1.8 mg/dL (1.5-2.4); Phosphorus 4.4 mg/dL (2.4-5.1); Potassium 4.5 mmol/L (3.5-5.5); Sodium 144 mmol/L (135-145); Total Bilirubin 0.5 mg/dL (0.3-1.2); Total Protein 5.3 g/dL (6.2-8.2)
[2024-07-31 12:01] LABS: Glucose,Whole Blood 144 mg/dL (70-110)
[2024-07-31 17:18] LABS: Glucose,Whole Blood 208 mg/dL (70-110)
[2024-07-31 20:14] LABS: Glucose,Whole Blood 194 mg/dL (70-110)
--- NOTE | 2024-07-31 21:44 | PN ---
PROGRESS NOTE DATE OF SERVICE: 07/31/2024 SUBJECTIVE: This is an 84-year-old woman, who was admitted with change in mental status, acute metabolic encephalopathy, also had a UTI. No chest pain. No palpitation. OBJECTIVE: VITAL SIGNS: Pulse is 91, blood pressure is 168/70, respirations 20. CHEST: Clear to auscultation. CARDIOVASCULAR: S1, S2. ABDOMEN: Soft. NERVOUS SYSTEM: Diffusely weak. LABORATORY DATA: Reviewed and urine cultures are pending. ASSESSMENT: 1. Change in mental status, acute metabolic encephalopathy. 2. Acute urinary tract infection, present on admission. 3. Atrial fibrillation. 4. Diabetes mellitus, type 2. 5. History of memory impairment. 6. History of vancomycin-resistant enterococcus. RECOMMENDATIONS: Recommend to continue current medications. Continue symptomatic treatment. Continue with antibiotics. Closely follow with Infectious Disease. Repeat labs in the morning. Further recommendations to follow. MMODL / IJN: [id number] /
--- NOTE | 2024-07-31 23:33 | P.CONS ---
History of Present Illness - Reason for Consult Consult date: 07/31/24 UTI Requesting physician: Ryan Moser - Chief Complaint Mental status changes burning urine x 1 day - History of Present Illness Patient is a 84-year-old female with a past medical history significant diabetes mellitus hypertension CVA TIA atrial fibrillation and recurrent UTIs patient presenting to the hospital concerning for weakness mental status changes reported by the daughter and the patient was also complaining of lower abdominal discomfort urinary burning and frequency the patient symptom has been going on for few days before presentation to the hospital on arrival to the ER patient was afebrile has been complaining of some chills patient was not tachycardic hypotensive or hypoxic patient did have a white count of 14.2 with a left shift creatinine has been normal liver enzymes are normal urine was positive with a large leukocyte esterase 55 WBC patient did have a CT of the brain that was negative for bleed chest x-ray mild vascular congestion patient did have a penicillin and cephalosporin allergy infectious he was consulted for further management of antibiotic therapy Review of Systems Positive point and negatives has been mentioned in the HPI, complete review of systems was performed and all other systems are negative Past Medical History Past Medical History: Atrial Fibrillation, CVA/TIA, Diabetes Mellitus, Hypertension, Memory Impairment Additional Past Medical History / Comment(s): UTI, falls History of Any Multi-Drug Resistant Organisms: VRE Year Discovered:: 11/01/23 MDRO Source:: Urine Past Surgical History: Appendectomy Additional Past Surgical History / Comment(s): patient poor historian Past Anesthesia/Blood Transfusion Reactions: No Reported Reaction Past Psychological History: No Psychological Hx Reported Smoking Status: Former smoker Past Alcohol Use History: None Reported Past Drug Use History: None Reported - Past Family History Father History Unknown: Yes Medications and Allergies Home Medications Medication Instructions Recorded Confirmed Type Acetaminophen [Tylenol 8 Hour] 1,300 mg PO BID 08/25/23 07/30/24 History Apixaban [Eliquis] 5 mg PO BID 08/25/23 07/30/24 History Atorvastatin [Lipitor] 40 mg PO HS 08/25/23 07/30/24 History Diclofenac Sodium Gel [Voltaren 1% 1 applic TOPICAL QID PRN 08/25/23 07/30/24 History Gel] Escitalopram [Lexapro] 20 mg PO DAILY 08/25/23 07/30/24 History Ferrous Sulfate [Iron (65 MG 325 mg PO DAILY 08/25/23 07/30/24 History Elemental)] Ipratropium-Albuterol Nebulize 3 ml INHALATION RT-QID PRN 08/25/23 07/30/24 History [Duoneb 0.5 mg-3 mg/3 ml Soln] Levothyroxine Sodium [Synthroid] 12.5 mcg PO AC-BRKFST 08/25/23 07/30/24 History Loperamide HCl [Imodium A-D] 2 mg PO QID PRN 08/25/23 07/30/24 History Loratadine 10 mg PO HS 08/25/23 07/30/24 History Montelukast [Singulair] 10 mg PO HS 08/25/23 07/30/24 History Budesonide-Formot 160-4.5 Mcg 2 puff INHALATION RT-BID #1 each 10/28/23 07/30/24 Rx [Symbicort 160-4.5 Mcg Inhaler] Acetaminophen Tab [Tylenol] 650 mg PO Q6HR PRN tab 11/04/23 07/30/24 Rx Ipratropium-Albuterol Nebulize 3 ml INHALATION RT-QID #100 each 11/04/23 07/30/24 Rx [Duoneb 0.5 mg-3 mg/3 ml Soln] Diltiazem Cd [Cardizem CD] 180 mg PO DAILY cap 12/09/23 07/30/24 Rx Thiamine [Vitamin B-1] 100 mg PO DAILY tab 12/09/23 07/30/24 Rx Spiriva Respimat 1.25mcg/Actuation 1 puff INHALATION RT-DAILY PRN 05/10/24 07/30/24 History Mist Losartan [Cozaar] 25 mg PO DAILY 30 Days #30 tab 05/14/24 07/30/24 Rx Pantoprazole [Protonix] 40 mg PO AC-BRKFST 30 Days #30 tab 05/14/24 07/30/24 Rx Insulin Detemir (Levemir) [Levemir] 16 unit SQ BID@0700,2100 each 06/21/24 07/30/24 Rx Lacosamide [Vimpat] 100 mg PO HS #4 tab 06/21/24 07/30/24 Rx Nystatin 100,000 Unit/gm Powd 1 applic TOPICAL BID each 06/21/24 07/30/24 Rx [Mycostatin Powder] INSULIN ASPART (NovoLOG) [NovoLOG See Protocol SQ ACHS 07/30/24 07/30/24 History (formulary)] Allergies Allergy/AdvReac Type Severity Reaction Status Date / Time Penicillins Allergy Rash/Hives Verified 07/30/24 09:15 cefepime AdvReac Confusion Verified 07/30/24 09:15 Physical Exam Vitals: Vital Signs Temp Pulse Pulse Resp BP BP Pulse Ox 07/31/24 08:51 91 07/31/24 08:37 94 97 07/31/24 07:00 97.7 F 81 22 168/78 97 07/31/24 03:32 98.5 F 93 17 156/88 98 07/30/24 20:37 93 07/30/24 20:25 92 07/30/24 20:00 98.7 F 86 18 129/74 97 07/30/24 16:19 97 07/30/24 16:11 92 07/30/24 15:00 98.6 F 98 17 133/77 96 Intake and Output 07/30/24 07/31/24 07/31/24 22:59 06:59 14:59 Intake Total 118 240 Output Total 2250 Balance 118 -2250 240 Intake: Oral 118 240 Output: Urine 2250 Other: Voiding Method External Catheter External Catheter External Catheter GENERAL DESCRIPTION: Elderly female lying in bed, no distress. No tachypnea or accessory muscle of respiration use. HEENT: Shows Pallor , no scleral icterus. Oral mucous membrane is dry. No pharyngeal erythema or thrush NECK: Trachea central, no thyromegaly. LUNGS: Unlabored breathing. Clear to auscultation anteriorly. No wheeze or crackle. HEART: S1, S2, regular rate and rhythm. No loud murmur ABDOMEN: Soft, no tenderness , guarding or rigidity, no organomegaly EXTREMITIES: No edema of feet. SKIN: No rash, no masses palpable. NEUROLOGICAL: The patient is awake, mood and affect normal. Results CBC & Chem 7: 07/31/24 06:09 07/31/24 06:09 Labs: Abnormal Lab Results - Last 24 Hours (Table) 07/30/24 07/30/24 07/31/24 Range/Units 17:02 20:18 06:09 RBC (4.10-5.20) X 10*6/uL Hgb (12.0-15.0) g/dL Hct (37.2-46.3) % MCHC (32.0-37.0) g/dL Chloride (96-109) mmol/L POC Glucose (mg/dL) 217 H 196 H (70-110) mg/dL Hemoglobin A1c 8.6 H (<=6.0) % Calcium (8.7-10.3) mg/dL Total Protein (6.2-8.2) g/dL Albumin (3.8-4.9) g/dL 07/31/24 07/31/24 07/31/24 Range/Units 06:09 06:09 11:59 RBC 3.88 L (4.10-5.20) X 10*6/uL Hgb 10.9 L (12.0-15.0) g/dL Hct 34.8 L (37.2-46.3) % MCHC 31.3 L (32.0-37.0) g/dL Chloride 110 H (96-109) mmol/L POC Glucose (mg/dL) 144 H (70-110) mg/dL Hemoglobin A1c (<=6.0) % Calcium 8.1 L (8.7-10.3) mg/dL Total Protein 5.3 L (6.2-8.2) g/dL Albumin 3.3 L (3.8-4.9) g/dL Assessment and Plan (1) Leukocytosis Current Visit: Yes Status: Acute Code(s): D72.829 - ELEVATED WHITE BLOOD CELL COUNT, UNSPECIFIED SNOMED Code(s): 553717907 (2) Allergy to multiple antibiotics Current Visit: No Status: Acute Code(s): Z88.1 - ALLERGY STATUS TO OTHER ANTIBIOTIC AGENTS SNOMED Code(s): 415040962 (3) UTI (urinary tract infection) Current Visit: No Status: Acute Code(s): N39.0 - URINARY TRACT INFECTION, SITE NOT SPECIFIED SNOMED Code(s): 99223414 Plan: 1patient presents hospital mental status changes has been complaining of lower abdominal discomfort burning urine positive UA elevated white count concerning for symptomatic UTI likely from enteric gram-negative pathogen 2-patient did have a cephalosporin and penicillin allergy that will limit the number of antibiotics safe to use 3-we will start the patient on Azactam pending culture finalization We will follow on clinical condition and cultures to further adjust medication if needed Thank you for this consultation we will follow the patient along with you Dictation was produced using [employer] dictation software. please excuse any grammatical, word or spelling errors. Time with Patient: Greater than 30
[2024-07-31] MEDS: AZTREONAM 1 GM in SODIUM CHLORIDE 0.9% 50 ML IVPB SCH (23:56)
[2024-08-01 06:13] LABS: Glucose,Whole Blood 150 mg/dL (70-110)
[2024-08-01 08:49] LABS: Basophils # (A) 0.06 X 10*3/uL (0.00-0.10); Basophils % (A) 0.7 %; Eosinophils # (A) 0.13 X 10*3/uL (0.04-0.35); Eosinophils % (A) 1.5 %; HCT 34.2 % (37.2-46.3); HGB 10.8 g/dL (12.0-15.0); Lymphocytes # (A) 1.93 X 10*3/uL (0.90-5.00); Lymphocytes % (A) 22.7 %; MCH 28.5 pg (27.0-32.0); MCHC 31.6 g/dL (32.0-37.0); MCV 90.2 FL (80.0-97.0); Monocytes # (A) 0.68 X 10*3/uL (0.20-1.00); NRBC Per 100 WBC 0 X 10*3/uL (0.00-0.01); Neutrophils # (A) 5.66 X 10*3/uL (1.80-7.70); Neutrophils % (A) 66.6 %; Platelet Count 202 X 10*3/uL (140-440); RBC 3.79 X 10*6/uL (4.10-5.20); RDW 13.9 % (11.5-14.5)
[2024-08-01 09:11] LABS: BUN/Creat Ratio 15.22 Ratio (12.00-20.00); Blood Urea Nitrogen 13.7 mg/dL (9.0-27.0); Calcium 8.3 mg/dL (8.7-10.3); Carbon Dioxide 24.1 mmol/L (21.6-31.8); Chloride 105 mmol/L (96-109); Glucose 177 mg/dL (70-110); Potassium 4.5 mmol/L (3.5-5.5); Sodium 140 mmol/L (135-145)
[2024-08-01 12:03] LABS: Glucose,Whole Blood 186 mg/dL (70-110)
[2024-08-01 17:17] LABS: Glucose,Whole Blood 261 mg/dL (70-110)
[2024-08-01 20:10] LABS: Glucose,Whole Blood 260 mg/dL (70-110)
--- NOTE | 2024-08-02 00:34 | PN ---
PROGRESS NOTE DATE OF SERVICE: 08/01/2024 SUBJECTIVE: This is an 84-year-old woman, who was admitted with change in mental status, metabolic encephalopathy, is being evaluated for UTI. Urine culture showed gram-negative bacilli. OBJECTIVE: VITAL SIGNS: Pulse is 90, blood pressure 159/84, respirations 16. CHEST: A few scattered rhonchi. ABDOMEN: Soft. NERVOUS SYSTEM: Diffusely weak. LABORATORY DATA: Reviewed. ASSESSMENT: 1. Acute urinary tract infection, present on admission with gram-negative bacilli. 2. Change in mental status, acute metabolic encephalopathy. 3. Atrial fibrillation. 4. Diabetes mellitus, type 2. 5. History of memory impairment. 6. History of vancomycin-resistant enterococcus. RECOMMENDATIONS: Recommend to continue current management and continue symptomatic treatment. Repeat labs. We will await the final culture of the urine culture report. The patient is currently on Azactam. Further recommendations to follow. MMODL / IJN: [id number] /
[2024-08-02 05:27] LABS: Glucose,Whole Blood 140 mg/dL (70-110)
--- NOTE | 2024-08-02 12:01 | P.PN ---
Subjective Progress Note Date: 08/02/24 This is a pleasant 84-year-old female who came in with concern for weakness and altered mentation was found to have a acute urinary tract infection with cultures showing Klebsiella pneumonia. ID has been following and patient was maintained on IV Azactam this hospital stay secondary to her drug allergies to penicillin and cefepime. She will be discharged on a course of oral Cipro. Patient is having significant shortness of breath and wheezing today. X-ray earlier in the admission on the did show mild vascular congestion however her BNP was normal at that time. Patient is continued on DuoNebs scheduled and as needed. Fluids will be stopped and patient may need a dose of IV Lasix. Review of Systems Constitutional: Denied any fatigue denied any fever. Cardio vascular: denied any chest pain, palpitations Gastrointestinal: denied any nausea, vomiting, diarrhea Pulmonary: Shortness of breath, no cough Neurologic denied any new focal deficits All inpatient medications were reviewed and appropriate changes in these medications as dictated in the interval history and assessment and plan. PHYSICAL EXAMINATION: GENERAL: The patient is alert and oriented x3, not in any acute distress. Well developed, well nourished. HEENT: Pupils are round and equally reacting to light. EOMI. No scleral icterus. No conjunctival pallor. Normocephalic, atraumatic. No pharyngeal erythema. No thyromegaly. CARDIOVASCULAR: S1 and S2 present. No murmurs, rubs, or gallops. PULMONARY: Scattered wheezing throughout ABDOMEN: Soft, nontender, nondistended, normoactive bowel sounds. No palpable organomegaly. MUSCULOSKELETAL: No joint swelling or deformity. EXTREMITIES: No cyanosis, clubbing, or pedal edema. NEUROLOGICAL: Gross neurological examination did not reveal any focal deficits. SKIN: No rashes. Assessment and Plan Acute urinary tract infection present on admission culture showing Klebsiella pneumonia Change in mental status with due to acute metabolic encephalopathy from the UTI Shortness of breath and acute hypoxemic respiratory failure under investigation History of atrial fibrillation coagulated with Eliquis on an outpatient basis Diabetes mellitus type II History of stroke Hyperlipidemia Hypothyroidism Hypertension Smoking history GI prophylaxis DVT prophylaxis eliquis Full Code Plan Continue IV azactam while in patient Continue eliquis Chest xray ordered Continue duonebs scheduled and as needed Stop the IV fluids Pyridium ordered for 2 days PT Recommending subacute rehab The impression and plan of care has been dictated by Aracelis Hampton, Nurse Practitioner as directed. Dr. Tip MD I have performed a history and physical examination and medical decision making of this patient, discussed the same with the dictator, and agree with the dictators assessment and plan as written, documented as a scribe. Based on total visit time, I have performed more than 50% of this visit. Objective - Vital Signs Vital signs: Vital Signs Temp 97.8 F 08/02/24 07:05 Pulse 86 08/02/24 08:38 Resp 18 08/02/24 08:00 BP 131/74 08/02/24 07:05 Pulse Ox 96 08/02/24 08:31 FiO2 Intake & Output 08/01/24 08/02/24 08/02/24 18:59 06:59 18:59 Intake Total 118 118 Output Total 2700 Balance 118 -2700 118 Intake: Oral 118 118 Output: Urine 2700 Other: Voiding Method External Catheter External Catheter External Catheter # Voids 2 - Labs CBC & Chem 7: 08/01/24 04:22 08/01/24 04:22 Labs: Abnormal Lab Results - Last 24 Hours (Table) 08/01/24 08/01/24 08/01/24 Range/Units 12:01 17:15 20:08 POC Glucose (mg/dL) 186 H 261 H 260 H (70-110) mg/dL 08/02/24 Range/Units 05:23 POC Glucose (mg/dL) 140 H (70-110) mg/dL Microbiology - Last 24 Hours (Table) 07/30/24 15:24 Urine Culture - Preliminary Urine,Clean Catch Klebsiella pneumoniae Assessment and Plan Time with Patient: Less than 30
[2024-08-02 12:10] LABS: Glucose,Whole Blood 153 mg/dL (70-110)
--- NOTE | 2024-08-02 12:45 | P.PN ---
Subjective Progress Note Date: 08/01/24 Principal diagnosis: Reason for follow-up is a urinary tract infection Patient is a 84-year-old female with a past medical history significant diabetes mellitus hypertension CVA TIA atrial fibrillation and recurrent UTIs patient presenting to the hospital concerning for weakness mental status changes burning urine did have elevated white count diagnosed with a symptomatic UTI with multiple antibiotic allergies. On today's evaluation that is 08/01/2024, patient has been afebrile, patient is breathing comfortably and is currently on room air, patient denies having any significant cough no chest pain, patient denies nausea vomiting or diarrhea and no abdominal pain, did have improvement in her mentation. The patient white count 8.50, creatinine 0.9 urine is growing gram-negative with ID sensitivities pending Objective - Vital Signs Vital signs: Vital Signs Temp 98.0 F 08/01/24 07:00 Pulse 88 08/01/24 12:25 Resp 16 08/01/24 08:00 BP 159/85 08/01/24 07:00 Pulse Ox 92 L 08/01/24 07:00 FiO2 Intake & Output 07/31/24 08/01/24 08/01/24 18:59 06:59 18:59 Intake Total 1076 Output Total 1800 1650 Balance -724 -1650 Intake: Intake, IV Titration 600 Amount Sodium Chloride 0.9% 1, 600 000 ml @ 75 mls/hr IV . [id number] [facility] Rx#:[id number] Oral 476 Output: Urine 1800 1650 Other: Voiding Method External Catheter External Catheter External Catheter - Exam GENERAL DESCRIPTION: An elderly female lying in bed in no distress RESPIRATORY SYSTEM: Unlabored breathing , decreased breath sounds at bases HEART: S1 S2 regular rate and rhythm , ABDOMEN: Soft , no tenderness EXTREMITIES: No edema feet - Labs CBC & Chem 7: 08/01/24 04:22 08/01/24 04:22 Labs: Abnormal Lab Results - Last 24 Hours (Table) 07/31/24 07/31/24 08/01/24 Range/Units 17:17 20:13 04:22 RBC 3.79 L (4.10-5.20) X 10*6/uL Hgb 10.8 L (12.0-15.0) g/dL Hct 34.2 L (37.2-46.3) % MCHC 31.6 L (32.0-37.0) g/dL Glucose (70-110) mg/dL POC Glucose (mg/dL) 208 H 194 H (70-110) mg/dL Calcium (8.7-10.3) mg/dL 08/01/24 08/01/24 08/01/24 Range/Units 04:22 06:12 12:01 RBC (4.10-5.20) X 10*6/uL Hgb (12.0-15.0) g/dL Hct (37.2-46.3) % MCHC (32.0-37.0) g/dL Glucose 177 H (70-110) mg/dL POC Glucose (mg/dL) 150 H 186 H (70-110) mg/dL Calcium 8.3 L (8.7-10.3) mg/dL Microbiology - Last 24 Hours (Table) 07/30/24 15:24 Urine Culture - Preliminary Urine,Clean Catch Gram Neg Bacilli Assessment and Plan (1) Leukocytosis Current Visit: Yes Status: Acute Code(s): D72.829 - ELEVATED WHITE BLOOD CELL COUNT, UNSPECIFIED SNOMED Code(s): 495502140 (2) Allergy to multiple antibiotics Current Visit: No Status: Acute Code(s): Z88.1 - ALLERGY STATUS TO OTHER ANTIBIOTIC AGENTS SNOMED Code(s): 036258953 (3) UTI (urinary tract infection) Current Visit: No Status: Acute Code(s): N39.0 - URINARY TRACT INFECTION, SITE NOT SPECIFIED SNOMED Code(s): 38607907 Plan: 1patient presents hospital mental status changes has been complaining of lower abdominal discomfort burning urine positive UA elevated white count concerning for symptomatic UTI likely from enteric gram-negative pathogen 2-patient did have a cephalosporin and penicillin allergy that will limit the number of antibiotics safe to use 3-patient did have improvement in her white count culture growing gram-negative we will continue the patient on Azactam pending culture finalization Dictation was produced using [employer] dictation software. please excuse any grammatical, word or spelling errors. Time with Patient: Less than 30
--- NOTE | 2024-08-02 12:46 | P.PN ---
Subjective Progress Note Date: 08/02/24 Principal diagnosis: Reason for follow-up is a urinary tract infection Patient is a 84-year-old female with a past medical history significant diabetes mellitus hypertension CVA TIA atrial fibrillation and recurrent UTIs patient presenting to the hospital concerning for weakness mental status changes burning urine did have elevated white count diagnosed with a symptomatic UTI with multiple antibiotic allergies. On today's evaluation that is 08/02/2024, the patient continues to be afebrile, the patient is on room air and breathing comfortably, the Pt denies having any chest pain or cough, the patient denies having any abdominal pain no vomiting or any diarrhea, patient still have some burning in urine. No new lab has been repeated today, urine has been finalized with Klebsiella pneumoniae sensitive to Cipro and Bactrim Objective - Vital Signs Vital signs: Vital Signs Temp 97.8 F 08/02/24 07:05 Pulse 94 08/02/24 12:04 Resp 18 08/02/24 08:00 BP 131/74 08/02/24 07:05 Pulse Ox 96 08/02/24 08:31 FiO2 Intake & Output 08/01/24 08/02/24 08/02/24 18:59 06:59 18:59 Intake Total 118 118 Output Total 2700 Balance 118 -2700 118 Intake: Oral 118 118 Output: Urine 2700 Other: Voiding Method External Catheter External Catheter External Catheter # Voids 2 - Exam GENERAL DESCRIPTION: An elderly female lying in bed in no distress RESPIRATORY SYSTEM: Unlabored breathing , decreased breath sounds at bases HEART: S1 S2 regular rate and rhythm , ABDOMEN: Soft , no tenderness EXTREMITIES: No edema feet - Labs CBC & Chem 7: 08/01/24 04:22 08/01/24 04:22 Labs: Abnormal Lab Results - Last 24 Hours (Table) 08/01/24 08/01/24 08/02/24 Range/Units 17:15 20:08 05:23 POC Glucose (mg/dL) 261 H 260 H 140 H (70-110) mg/dL 08/02/24 Range/Units 12:09 POC Glucose (mg/dL) 153 H (70-110) mg/dL Microbiology - Last 24 Hours (Table) 07/30/24 15:24 Urine Culture - Preliminary Urine,Clean Catch Klebsiella pneumoniae Assessment and Plan (1) Leukocytosis Current Visit: Yes Status: Acute Code(s): D72.829 - ELEVATED WHITE BLOOD CELL COUNT, UNSPECIFIED SNOMED Code(s): 821021082 (2) Allergy to multiple antibiotics Current Visit: No Status: Acute Code(s): Z88.1 - ALLERGY STATUS TO OTHER ANTIBIOTIC AGENTS SNOMED Code(s): 650668734 (3) UTI (urinary tract infection) Current Visit: No Status: Acute Code(s): N39.0 - URINARY TRACT INFECTION, SITE NOT SPECIFIED SNOMED Code(s): 45386361 Plan: 1patient presents hospital mental status changes has been complaining of lower abdominal discomfort burning urine positive UA elevated white count concerning for symptomatic UTI likely from enteric gram-negative pathogen 2-patient did have a cephalosporin and penicillin allergy that will limit the number of antibiotics safe to use 3-patient urine has been finalized with Klebsiella pneumoniae that is sensitive to Cipro and Bactrim we will keep her on Azactam finishing therapy with the Bactrim DS x 5 days on discharge cannot use Cipro because of SSRI the patient is on Dictation was produced using [employer] dictation software. please excuse any gr ammatical, word or spelling errors. Time with Patient: Less than 30
[2024-08-02] MEDS: FUROSEMIDE 10 MG/ML 4 ML VIAL IV STA (14:39)
--- NOTE | 2024-08-02 14:56 | XR ---
EXAMINATION TYPE: XR chest 2V DATE OF EXAM: 08/02/2024 1:19 PM COMPARISON: Chest radiographs from 05/10/2024 TECHNIQUE: XR chest 2V Frontal and lateral views of the chest. CLINICAL INDICATION:Female, 84 years old with history of Shortness of Breath or Wheezing; FINDINGS: Lungs/Pleura: There is no evidence of pleural effusion, focal consolidation, or pneumothorax. Pulmonary vascularity: Unremarkable. Heart/mediastinum: Cardiomediastinal silhouette is unremarkable. Atherosclerotic calcifications are seen in the aorta. Musculoskeletal: No acute osseous pathology. Demonstration of mid thoracic spine anterior wedge compr ession deformity. Left humeral head surgical anchors. Similar remote injury to the distal right clavi sonal. IMPRESSION: Chronic changes without evidence for acute process. [facility], , 08/02/2024 1:41 PM
[2024-08-02] MEDS: PHENAZOPYRIDINE 100 MG TAB PO SCH (15:15)
[2024-08-02 17:30] LABS: Glucose,Whole Blood 158 mg/dL (70-110)
[2024-08-02 20:38] LABS: Glucose,Whole Blood 256 mg/dL (70-110)
[2024-08-03 05:33] LABS: Glucose,Whole Blood 188 mg/dL (70-110)
[2024-08-03 07:43] VITALS: TEMP 97.8
[2024-08-03 09:05] VITALS: RESP 18
[2024-08-03 11:11] LABS: Blood Urea Nitrogen 20.1 mg/dL (9.0-27.0); Calcium 8.3 mg/dL (8.7-10.3); Carbon Dioxide 22.9 mmol/L (21.6-31.8); Chloride 103 mmol/L (96-109); Glucose 180 mg/dL (70-110); Potassium 4.5 mmol/L (3.5-5.5); Sodium 138 mmol/L (135-145)
[2024-08-03 12:11] LABS: Glucose,Whole Blood 160 mg/dL (70-110)
[2024-08-03 14:35] VITALS: BP 112/69
[2024-08-03 16:03] VITALS: PULSE 90
--- NOTE | 2024-08-06 15:02 | P.DS ---
Providers Date of admission: 07/30/24 02:35 Expected date of discharge: 08/03/24 Attending physician: Ryan Moser Consults: 07/30/24 16:54 Consult Physician Routine Consulting Provider: Al Aldana Consult Reason/Comments: uti? Do you want consulting provider notified?: Yes Primary care physician: Stated None Hospital Course: Final diagnosis Acute urinary tract infection present on admission culture showing Klebsiella pneumonia Change in mental status with due to acute metabolic encephalopathy from the UTI Shortness of breath and acute hypoxemic respiratory failure under investigation History of atrial fibrillation coagulated with Eliquis on an outpatient basis Diabetes mellitus type II History of stroke Hyperlipidemia Hypothyroidism Hypertension Smoking history GI prophylaxis DVT prophylaxis eliquis Full Code Discharge disposition Patient is being discharged in a stable condition with guarded prognosis to home with home care. Patient will follow-up with primary care provider and reports she has a visiting physician in the outpatient setting upon discharge. Patient is to continue with oral Bactrim twice daily for 5 days per ID recommendations. Total time taken is greater than 35 minutes. Hospital course This is a 84-year-old female who was recently admitted with altered mentation with acute urinary tract infection, present on admission. Urine cultures finalized showing Klebsiella pneumonia showing some clinical improvement and will continue on Bactrim twice daily for the next 5 days to complete the course per ID recommendations. Patient was evaluated by physical therapy recommending rehab and case management/social work following attempting to have the patient go to [facility] although patient has multiple outstanding bills that facilities and they have all refused her. Per legal guardian patient will return home with home care and continued in-home helpers. Patient has been cleared by consultations for discharge home. Please refer to other consultation notes for further HPI. Patient was recently just at [facility] for 3 weeks and discharged home and shortly returned here for hospitalization. Currently no reports of chest pain, shortness of breath, or palpitations. Patient is afebrile. No reports of nausea or vomiting and patient is tolerating diet. Patient will be discharged home today. High risk for readmissions given patient's significant comorbidities Physical exam: Gen: This is a 84-year-old female who is awake, alert and oriented x 2, baseline, well-developed, elderly appearing, obese HEENT: Head is atraumatic, normocephalic. Pupils equal, round. Sclerae is anicteric. NECK: Supple. No JVD. No lymphadenopathy. No thyromegaly. LUNGS: Diminished breath sounds bilaterally otherwise clear to auscultation. No wheezes or rhonchi. No intercostal retractions. HEART: S1, S2 are muffled ABDOMEN: Soft. Obese bowel sounds are present. No masses. No tenderness. EXTREMITIES: No pedal edema. No calf tenderness. NEUROLOGICAL: Patient is awake, alert and oriented x2. Cranial nerves 2 through 12 are grossly intact. Diffusely weak Please refer to medication reconciliation sheet for a list of medications. The impression and plan of care has been dictated by Dulce Fox, Nurse Practitioner as directed. Dr. Tip MD I have performed a history and examination and MDM of this patient, discussed the same with the dictator, and agree with the dictator's assessment and plan as written ,documented as a scribe. Based on total visit time, I have performed more than 50% of the visit. Patient Condition at Discharge: Fair Plan - Discharge Summary New Discharge Prescriptions: New Sulfamethox-Tmp 800-160Mg [Bactrim DS 800-160 mg] 1 tab PO Q12HR 5 Days #10 tab Phenazopyridine [Pyridium] 100 mg PO TID 2 Days #6 tab Continue Loratadine 10 mg PO HS Ferrous Sulfate [Iron (65 MG Elemental)] 325 mg PO DAILY Escitalopram [Lexapro] 20 mg PO DAILY Atorvastatin [Lipitor] 40 mg PO HS Diclofenac Sodium Gel [Voltaren 1% Gel] 1 applic TOPICAL QID PRN PRN Reason: Pain Loperamide HCl [Imodium A-D] 2 mg PO QID PRN PRN Reason: Diarrhea Ipratropium-Albuterol Nebulize [Duoneb 0.5 mg-3 mg/3 ml Soln] 3 ml INHALATION RT-QID #100 each Acetaminophen Tab [Tylenol] 650 mg PO Q6HR PRN tab PRN Reason: Mild Pain Or Fever > 100.5 Diltiazem Cd [Cardizem CD] 180 mg PO DAILY cap Spiriva Respimat 1.25mcg/Actuation Mist 1 puff INHALATION RT-DAILY PRN PRN Reason: Shortness Of Breath Losartan [Cozaar] 25 mg PO DAILY 30 Days #30 tab Pantoprazole [Protonix] 40 mg PO AC-BRKFST 30 Days #30 tab Insulin Detemir (Levemir) [Levemir] 16 unit SQ BID@0700,2100 each Nystatin 100,000 Unit/gm Powd [Mycostatin Powder] 1 applic TOPICAL BID each Acetaminophen [Tylenol 8 Hour] 1,300 mg PO BID Levothyroxine Sodium [Synthroid] 12.5 mcg PO AC-BRKFST Montelukast [Singulair] 10 mg PO HS Apixaban [Eliquis] 5 mg PO BID Ipratropium-Albuterol Nebulize [Duoneb 0.5 mg-3 mg/3 ml Soln] 3 ml INHALATION RT-QID PRN PRN Reason: Shortness Of Breath Budesonide-Formot 160-4.5 Mcg [Symbicort 160-4.5 Mcg Inhaler] 2 puff INHALATION RT-BID #1 each Thiamine [Vitamin B-1] 100 mg PO DAILY tab Lacosamide [Vimpat] 100 mg PO HS #4 tab INSULIN ASPART (NovoLOG) [NovoLOG (formulary)] See Protocol SQ ACHS Discharge Medication List Acetaminophen [Tylenol 8 Hour] 1,300 mg PO BID 08/25/23 [History] Apixaban [Eliquis] 5 mg PO BID 08/25/23 [History] Atorvastatin [Lipitor] 40 mg PO HS 08/25/23 [History] Diclofenac Sodium Gel [Voltaren 1% Gel] 1 applic TOPICAL QID PRN 08/25/23 [History] Escitalopram [Lexapro] 20 mg PO DAILY 08/25/23 [History] Ferrous Sulfate [Iron (65 MG Elemental)] 325 mg PO DAILY 08/25/23 [History] Ipratropium-Albuterol Nebulize [Duoneb 0.5 mg-3 mg/3 ml Soln] 3 ml INHALATION RT-QID PRN 08/25/23 [History] Levothyroxine Sodium [Synthroid] 12.5 mcg PO AC-BRKFST 08/25/23 [History] Loperamide HCl [Imodium A-D] 2 mg PO QID PRN 08/25/23 [History] Loratadine 10 mg PO HS 08/25/23 [History] Montelukast [Singulair] 10 mg PO HS 08/25/23 [History] Budesonide-Formot 160-4.5 Mcg [Symbicort 160-4.5 Mcg Inhaler] 2 puff INHALATION RT-BID #1 each 10/28/23 [Rx] Acetaminophen Tab [Tylenol] 650 mg PO Q6HR PRN tab 11/04/23 [Rx] Ipratropium-Albuterol Nebulize [Duoneb 0.5 mg-3 mg/3 ml Soln] 3 ml INHALATION RT-QID #100 each 11/04/23 [Rx] Diltiazem Cd [Cardizem CD] 180 mg PO DAILY cap 12/09/23 [Rx] Thiamine [Vitamin B-1] 100 mg PO DAILY tab 12/09/23 [Rx] Spiriva Respimat 1.25mcg/Actuation Mist 1 puff INHALATION RT-DAILY PRN 05/10/24 [History] Losartan [Cozaar] 25 mg PO DAILY 30 Days #30 tab 05/14/24 [Rx] Pantoprazole [Protonix] 40 mg PO AC-BRKFST 30 Days #30 tab 05/14/24 [Rx] Insulin Detemir (Levemir) [Levemir] 16 unit SQ BID@0700,2100 each 06/21/24 [Rx] Lacosamide [Vimpat] 100 mg PO HS #4 tab 06/21/24 [Rx] Nystatin 100,000 Unit/gm Powd [Mycostatin Powder] 1 applic TOPICAL BID each 06/21/24 [Rx] INSULIN ASPART (NovoLOG) [NovoLOG (formulary)] See Protocol SQ ACHS 07/30/24 [History] Phenazopyridine [Pyridium] 100 mg PO TID 2 Days #6 tab 08/03/24 [Rx] Sulfamethox-Tmp 800-160Mg [Bactrim DS 800-160 mg] 1 tab PO Q12HR 5 Days #10 tab 08/03/24 [Rx] Follow up Appointment(s)/Referral(s): Home Health,[facility] [NON-STAFF] - As Needed [facility] [REFERRING] - As Needed Flavia Wright MD [STAFF PHYSICIAN] - 1 Week Activity/Diet/Wound Care/Special Instructions: Activity limited until follow-up Follow-up with primary care provider on discharge Continue taking medications as prescribed Discharge Disposition: HOME WITH HOME HEALTH SERVICES
--- NOTE | 2024-08-10 15:06 | P.PN ---
Subjective Progress Note Date: 08/03/24 Principal diagnosis: Reason for follow-up is a urinary tract infection Patient is a 84-year-old female with a past medical history significant diabetes mellitus hypertension CVA TIA atrial fibrillation and recurrent UTIs patient presenting to the hospital concerning for weakness mental status changes burning urine did have elevated white count diagnosed with a symptomatic UTI with multiple antibiotic allergies. On today's evaluation that is 08/03/2024, the patient remains to be afebrile, the patient is breathing comfortably on room air, the patient denies having any chest pain or cough, the patient denies having any abdominal pain no vomiting or any diarrhea, patient mentioned improvement her urinary symptoms Patient did have creatinine 1.0 potassium is normal, urine has been finalized with Klebsiella pneumoniae sensitive to Cipro and Bactrim Objective - Vital Signs Vital signs: Vital Signs Temp 97.8 F 08/03/24 07:20 Pulse 88 08/03/24 09:14 Resp 18 08/03/24 09:14 BP 127/68 08/03/24 07:20 Pulse Ox 95 08/03/24 09:02 FiO2 Intake & Output 08/02/24 08/03/24 08/03/24 18:59 06:59 18:59 Intake Total 478 240 Output Total 800 900 Balance -322 -900 240 Intake: Oral 478 240 Output: Urine 800 900 Other: Voiding Method External Catheter External Catheter External Catheter # Voids 2 400 # Bowel Movements 1 - Exam GENERAL DESCRIPTION: An elderly female lying in bed in no distress RESPIRATORY SYSTEM: Unlabored breathing , decreased breath sounds at bases HEART: S1 S2 regular rate and rhythm , ABDOMEN: Soft , no tenderness EXTREMITIES: No edema feet - Labs CBC & Chem 7: 08/01/24 04:22 08/03/24 04:43 Labs: Abnormal Lab Results - Last 24 Hours (Table) 08/02/24 08/02/24 08/02/24 Range/Units 12:09 17:29 20:36 Anion Gap (4.00-12.00) mmol/L Est GFR (CKD-EPI) (>=60) BUN/Creatinine Ratio (12.00-20.00) Ratio Glucose (70-110) mg/dL POC Glucose (mg/dL) 153 H 158 H 256 H (70-110) mg/dL Calcium (8.7-10.3) mg/dL 08/03/24 08/03/24 Range/Units 04:43 05:31 Anion Gap 12.10 H (4.00-12.00) mmol/L Est GFR (CKD-EPI) 56 L (>=60) BUN/Creatinine Ratio 20.10 H (12.00-20.00) Ratio Glucose 180 H (70-110) mg/dL POC Glucose (mg/dL) 188 H (70-110) mg/dL Calcium 8.3 L (8.7-10.3) mg/dL Microbiology - Last 24 Hours (Table) 07/30/24 15:24 Urine Culture - Final Urine,Clean Catch Staphylococcus lugdunenisis Klebsiella pneumoniae Assessment and Plan (1) Leukocytosis Status: Acute Code(s): D72.829 - ELEVATED WHITE BLOOD CELL COUNT, UNSPECIFIED SNOMED Code(s): 384318109 (2) Allergy to multiple antibiotics Status: Acute Code(s): Z88.1 - ALLERGY STATUS TO OTHER ANTIBIOTIC AGENTS SN OMED Code(s): 571800319 (3) UTI (urinary tract infection) Status: Acute Code(s): N39.0 - URINARY TRACT INFECTION, SITE NOT SPECIFIED SNOMED Code(s): 22685279 Plan: 1patient presents hospital mental status changes has been complaining of lower abdominal discomfort burning urine positive UA elevated white count concerning for symptomatic UTI likely from enteric gram-negative pathogen 2-patient did have a cephalosporin and penicillin allergy that will limit the number of antibiotics safe to use 3-patient urine has been finalized with Klebsiella pneumoniae that is sensitive to Cipro and Bactrim 4patient has shown overall clinical improvement she will finish therapy with Bactrim DS x 5 days on discharge discussed with BANQUET STEWARDESS for admitting team Dictation was produced using [employer] dictation software. please excuse any grammatical, word or spelling errors. Time with Patient: Less than 30
== END 2024-08-03 17:20 | disposition home health service (06) | DRG 689 ==
LOC: EC 23:48 → 6NMEDSUR 07-30 02:34 → OBSVTOIN 07-30 02:35 → 6NMEDSUR 07-30 03:20
PROVIDERS: ADMIT Hospitalist; ATTEND Hospitalist
DX: N39.0 Urinary tract infection, site not specified (principal); G93.41 Metabolic encephalopathy; J96.01 Acute respiratory failure with hypoxia; Z16.21 Resistance to vancomycin; E11.9 Type 2 diabetes mellitus without complications; I48.91 Unspecified atrial fibrillation; B96.1 Klebsiella pneumoniae [K. pneumoniae] as the cause of diseases classified elsewhere; I10 Essential (primary) hypertension; E78.5 Hyperlipidemia, unspecified; E03.9 Hypothyroidism, unspecified; E86.0 Dehydration; Z88.1 Allergy status to other antibiotic agents; Z88.0 Allergy status to penicillin; Z87.891 Personal history of nicotine dependence; Z86.73 Personal history of transient ischemic attack (TIA), and cerebral infarction without residual deficits; Z79.01 Long term (current) use of anticoagulants; Z79.4 Long term (current) use of insulin; Z79.51 Long term (current) use of inhaled steroids; Z79.890 Hormone replacement therapy; Z79.899 Other long term (current) drug therapy; Z87.440 Personal history of urinary (tract) infections
CPT/HCPCS: 36415; 70450; 71045; 71046; 80048; 80053; 81001; 83036; 83605; 83735; 83880; 84100; 84443; 84484; 85025; 85610; 85730; 87077; 87086; 87186; 93005; 94640; 94760; 96360; 96361; 99285

== ENCOUNTER 2024-08-12 11:57 | Observation (INO) | payer MEDICARE ==
--- NOTE | 2024-08-12 12:26 | ED ---
General Adult HPI - General Chief complaint: Altered Mental Status Stated complaint: AMS/Weakness Time Seen by Provider: 08/12/24 11:59 Source: patient, EMS, RN notes reviewed Mode of arrival: EMS Limitations: no limitations - History of Present Illness Initial comments: Patient is an 84-year-old female presenting to the emergency department with concerns with weakness. Onset of symptoms was a couple of days ago. Patient denies any confusion. History provided was that patient has had some intermittent confusion. Patient admits to being a little bit more weak the past few days and having difficulty getting up and moving around. Patient does live at home with family. Patient did have 2 falls recently however denies head injury. No isolated area of weakness. - Related Data Home Medications Medication Instructions Recorded Confirmed Acetaminophen [Tylenol 8 Hour] 1,300 mg PO BID 08/25/23 08/12/24 Apixaban [Eliquis] 5 mg PO BID 08/25/23 08/12/24 Atorvastatin [Lipitor] 40 mg PO HS 08/25/23 08/12/24 Diclofenac Sodium Gel [Voltaren 1% 1 applic TOPICAL QID PRN 08/25/23 08/12/24 Gel] Escitalopram [Lexapro] 20 mg PO DAILY 08/25/23 08/12/24 Ferrous Sulfate [Iron (65 MG 325 mg PO DAILY 08/25/23 08/12/24 Elemental)] Ipratropium-Albuterol Nebulize 3 ml INHALATION RT-QID PRN 08/25/23 08/12/24 [Duoneb 0.5 mg-3 mg/3 ml Soln] Levothyroxine Sodium [Synthroid] 12.5 mcg PO AC-BRKFST 08/25/23 08/12/24 Loperamide HCl [Imodium A-D] 2 mg PO QID PRN 08/25/23 08/12/24 Loratadine 10 mg PO HS 08/25/23 08/12/24 Montelukast [Singulair] 10 mg PO HS 08/25/23 08/12/24 Spiriva Respimat 1.25mcg/Actuation 1 puff INHALATION RT-DAILY PRN 05/10/24 08/12/24 Mist INSULIN ASPART (NovoLOG) [NovoLOG See Protocol SQ ACHS 07/30/24 08/12/24 (formulary)] Previous Rx's Medication Instructions Recorded Budesonide-Formot 160-4.5 Mcg 2 puff INHALATION RT-BID #1 each 10/28/23 [Symbicort 160-4.5 Mcg Inhaler] Acetaminophen Tab [Tylenol] 650 mg PO Q6HR PRN tab 11/04/23 Ipratropium-Albuterol Nebulize 3 ml INHALATION RT-QID #100 each 11/04/23 [Duoneb 0.5 mg-3 mg/3 ml Soln] Diltiazem Cd [Cardizem CD] 180 mg PO DAILY cap 12/09/23 Thiamine [Vitamin B-1] 100 mg PO DAILY tab 12/09/23 Losartan [Cozaar] 25 mg PO DAILY 30 Days #30 tab 05/14/24 Pantoprazole [Protonix] 40 mg PO AC-BRKFST 30 Days #30 tab 05/14/24 Insulin Detemir (Levemir) [Levemir] 16 unit SQ BID@0700,2100 each 06/21/24 Lacosamide [Vimpat] 100 mg PO HS #4 tab 06/21/24 Nystatin 100,000 Unit/gm Powd 1 applic TOPICAL BID each 06/21/24 [Mycostatin Powder] Phenazopyridine [Pyridium] 100 mg PO TID 2 Days #6 tab 08/03/24 Sulfamethox-Tmp 800-160Mg [Bactrim 1 tab PO Q12HR 5 Days #10 tab 08/03/24 DS 800-160 mg] Allergies Allergy/AdvReac Type Severity Reaction Status Date / Time Penicillins Allergy Rash/Hives Verified 07/30/24 09:15 cefepime AdvReac Confusion Verified 07/30/24 09:15 Review of Systems ROS Statement: Those systems with pertinent positive or pertinent negative responses have been documented in the HPI. ROS Other: All systems not noted in ROS Statement are negative. Constitutional: Denies: fever Eyes: Denies: eye pain ENT: Denies: ear pain Respiratory: Denies: dyspnea Cardiovascular: Denies: chest pain Musculoskeletal: Denies: back pain Neurological: Reports: as per HPI, weakness. Denies: headache Past Medical History Past Medical History: Atrial Fibrillation, CVA/TIA, Diabetes Mellitus, Hypertension, Memory Impairment Additional Past Medical History / Comment(s): UTI, falls History of Any Multi-Drug Resistant Organisms: VRE Date of last positivie culture/infection: 11/01/23 MDRO Source:: Urine Past Surgical History: Appendectomy Additional Past Surgical History / Comment(s): patient poor historian Past Anesthesia/Blood Transfusion Reactions: No Reported Reaction Past Psychological History: No Psychological Hx Reported Smoking Status: Former smoker Past Alcohol Use History: None Reported Past Drug Use History: None Reported - Past Family History Father History Unknown: Yes General Exam Limitations: no limitations General appearance: alert, in no apparent distress Head exam: Present: atraumatic Eye exam: Present: normal appearance, PERRL, EOMI ENT exam: Present: normal oropharynx Neck exam: Present: normal inspection. Absent: tenderness Respiratory exam: Present: normal lung sounds bilaterally Cardiovascular Exam: Present: regular rate, normal rhythm GI/Abdominal exam: Present: soft. Absent: tenderness Extremities exam: Present: normal inspection, full ROM. Absent: tenderness Neurological exam: Present: alert, CN II-XII intact. Absent: motor sensory deficit Expanded Neurological exam: Present: protecting the airway Patient oriented to: Present: person, place. Absent: time (Oriented to month but not year) Speech: Present: fluid speech Cranial nerves: EOM's Intact: Normal Sensory exam: Upper Extremity Light Touch: Normal, Lower Extremity Light Touch: Normal Motor strength exam: RUE: 5, LUE: 5, RLE: 5, LLE: 5 Eye Response: (4) open spontaneously Motor Response: (6) obeys commands Verbal Response: (4) confused conversation Psychiatric exam: Present: normal affect, normal mood Skin exam: Present: normal color Course Vital Signs 08/12/24 08/12/24 08/12/24 12:00 12:30 13:08 Temperature 97.5 F L 97.9 F Pulse Rate 74 77 76 Respiratory 18 18 18 Rate Blood Pressure 126/83 157/90 153/77 O2 Sat by Pulse 96 95 95 Oximetry EKG Findings - EKG Results: EKG: interpreted by ERMD, sinus rhythm, normal axis, normal QRS, normal ST/T Medical Decision Making - Medical Decision Making Was pt. sent in by a medical professional or institution (, PA, INSTRUMENTATION SPECIALIST, urgent care, hospital, or care home...) When possible be specific @ -No Did you speak to anyone other than the patient for history (EMS, parent, family, police, friend...)? What history was obtained from this source @ -No Did you review nursing and triage notes (agree or disagree)? Why? @ -I reviewed and agree with nursing and triage notes Were old charts reviewed (outside hosp., previous admission, EMS record, old EKG, old radiological studies, urgent care reports/EKG's, care home records)? Report findings @ -Previous admission and blood cultures and medications reviewed Differential Diagnosis (chest pain, altered mental status, abdominal pain women, abdominal pain men, vaginal bleeding, weakness, fever, dyspnea, syncope, headache, dizziness, GI bleed, back pain, seizure, CVA, palpatations, mental health, musculoskeletal)? @ -Differential Weakness: Hypoglycemia, shock, sepsis, hyponatremia, anemia, infection, AK, ETOH, adverse medicine reaction, overdose, stroke, this is not meant to be an all-inclusive list. EKG interpreted by me (3pts min.). @ -As above X-rays interpreted by me (1pt min.). @ -Chest x-ray shows no acute process CT interpreted by me (1pt min.). @ -CT brain does not reveal acute abnormality U/S interpreted by me (1pt. min.). @ -None done What testing was considered but not performed or refused? (CT, X-rays, U/S, labs)? Why? @ -None What meds were considered but not given or refused? Why? @ -None Did you discuss the management of the patient with other professionals (professionals i.e. , PA, INSTRUMENTATION SPECIALIST, lab, RT, psych nurse, transition social worker, lead software developer, teacher, natural resource officer, outpatient case manager)? Give summary @ -Case was discussed with Dr. Ahmadi admit covering Dr. Giraldo who adm its for Dr. Webb for us Was smoking cessation discussed for >3mins.? @ -No Was critical care preformed (if so, how long)? @ -No Were there social determinants of health that impacted care today? How? (Homelessness, low income, unemployed, alcoholism, drug addiction, transportation, low edu. Level, literacy, decrease access to med. care, senior care, rehab)? @ -No Was there de-escalation of care discussed even if they declined (Discuss DNR or withdrawal of care, Hospice)? DNR status @ -No What co-morbidities impacted this encounter? (DM, HTN, Smoking, COPD, CAD, Cancer, CVA, ARF, Chemo, Hep., AIDS, mental health diagnosis, sleep apnea, morbid obesity)? @ -None Was patient admitted / discharged? Hospital course, mention meds given and route, prescriptions, significant lab abnormalities, going to OR and other pertinent info. @ -Patient presents with some general weakness as well as intermittent confusion. Evidence of urinary tract infection again. Patient will be admitted with IV Levaquin. Admission orders written. Undiagnosed new problem with uncertain prognosis? @ -No Drug Therapy requiring intensive monitoring for toxicity (Heparin, Nitro, Insulin, Cardizem)? @ -No Were any procedures done? @ -No Diagnosis/symptom? @ -Urinary tract infection Acute, or Chronic, or Acute on Chronic? @ -Acute Uncomplicated (without systemic symptoms) or Complicated (systemic symptoms)? @ -Complicated with weakness and mental status change Side effects of treatment? @ -No Exacerbation, Progression, or Severe Exacerbation? @ -No Poses a threat to life or bodily function? How? (Chest pain, USA, AK, pneumonia, PE, COPD, DKA, ARF, appy, cholecystitis, CVA, Diverticulitis, Homicidal, Suic idal, threat to staff... and all critical care pts) @ -No - Lab Data Result diagrams: 08/12/24 12:34 08/12/24 12:34 Lab Results 08/12/24 08/12/24 08/12/24 Range/Units 12:34 12:34 12:34 WBC 5.9 (3.8-10.6) k/uL RBC 4.35 (3.80-5.40) m/uL Hgb 12.4 (11.4-16.0) gm/dL Hct 38.3 (34.0-46.0) % MCV 88.1 (80.0-100.0) fL MCH 28.6 (25.0-35.0) pg MCHC 32.5 (31.0-37.0) g/dL RDW 13.6 (11.5-15.5) % Plt Count 243 (150-450) k/uL MPV 8.5 Neutrophils % 74 % Lymphocytes % 18 % Monocytes % 5 % Eosinophils % 2 % Basophils % 1 % Neutrophils # 4.3 (1.3-7.7) k/uL Lymphocytes # 1.1 (1.0-4.8) k/uL Monocytes # 0.3 (0-1.0) k/uL Eosinophils # 0.1 (0-0.7) k/uL Basophils # 0.0 (0-0.2) k/uL PT 11.4 (10.0-12.5) sec INR 1.1 (<1.2) APTT 26.6 (22.0-30.0) sec Sodium (137-145) mmol/L Potassium (3.5-5.1) mmol/L Chloride (98-107) mmol/L Carbon Dioxide (22-30) mmol/L Anion Gap mmol/L BUN (7-17) mg/dL Creatinine (0.52-1.04) mg/dL Est GFR (CKD-EPI)AfAm (>60 ml/min/1.73 sqM) Est GFR (CKD-EPI)NonAf (>60 ml/min/1.73 sqM) Glucose (74-99) mg/dL Plasma Lactic Acid Victor Hugo (0.7-2.0) mmol/L Calcium (8.4-10.2) mg/dL Magnesium (1.6-2.3) mg/dL Total Bilirubin (0.2-1.3) mg/dL AST (14-36) U/L ALT (4-34) U/L Alkaline Phosphatase (38-126) U/L Troponin I (0.000-0.034) ng/mL Total Protein (6.3-8.2) g/dL Albumin (3.5-5.0) g/dL Urine Color Yellow Urine Appearance Cloudy H (Clear) Urine pH 7.0 (5.0-8.0) Ur Specific [place] 1.011 (1.001-1.035) Urine Protein Negative (Negative) Urine Glucose (UA) Negative (Negative) Urine Ketones Negative (Negative) Urine Blood Small H (Negative) Urine Nitrite Negative (Negative) Urine Bilirubin Negative (Negative) Urine Urobilinogen <2.0 (<2.0) mg/dL Ur Leukocyte Esterase Large H (Negative) Urine RBC 117 H (0-5) /hpf Urine WBC >182 H (0-5) /hpf Urine WBC Clumps Moderate H (None) /hpf Ur Squamous Epith Cells 1 (0-4) /hpf Urine Bacteria Many H (None) /hpf Urine Mucus Occasional H (None) /hpf 08/12/24 08/12/24 08/12/24 Range/Units 12:34 12:34 12:34 WBC (3.8-10.6) k/uL RBC (3.80-5.40) m/uL Hgb (11.4-16.0) gm/dL Hct (34.0-46.0) % MCV (80.0-100.0) fL MCH (25.0-35.0) pg MCHC (31.0-37.0) g/dL RDW (11.5-15.5) % Plt Count (150-450) k/uL MPV Neutrophils % % Lymphocytes % % Monocytes % % Eosinophils % % Basophils % % Neutrophils # (1.3-7.7) k/uL Lymphocytes # (1.0-4.8) k/uL Monocytes # (0-1.0) k/uL Eosinophils # (0-0.7) k/uL Basophils # (0-0.2) k/uL PT (10.0-12.5) sec INR (<1.2) APTT (22.0-30.0) sec Sodium 138 (137-145) mmol/L Potassium 4.2 (3.5-5.1) mmol/L Chloride 110 H (98-107) mmol/L Carbon Dioxide 21 L (22-30) mmol/L Anion Gap 7 mmol/L BUN 8 (7-17) mg/dL Creatinine 0.83 (0.52-1.04) mg/dL Est GFR (CKD-EPI)AfAm 75 (>60 ml/min/1.73 sqM) Est GFR (CKD-EPI)NonAf 65 (>60 ml/min/1.73 sqM) Glucose 157 H (74-99) mg/dL Plasma Lactic Acid Victor Hugo 1.0 (0.7-2.0) mmol/L Calcium 8.7 (8.4-10.2) mg/dL Magnesium 1.7 (1.6-2.3) mg/dL Total Bilirubin 0.9 (0.2-1.3) mg/dL AST 21 (14-36) U/L ALT 10 (4-34) U/L Alkaline Phosphatase 104 (38-126) U/L Troponin I <0.012 (0.000-0.034) ng/mL Total Protein 6.2 L (6.3-8.2) g/dL Albumin 3.6 (3.5-5.0) g/dL Urine Color Urine Appearance (Clear) Urine pH (5.0-8.0) Ur Specific [place] (1.001-1.035) Urine Protein (Negative) Urine Glucose (UA) (Negative) Urine Ketones (Negative) Urine Blood (Negative) Urine Nitrite (Negative) Urine Bilirubin (Negative) Urine Urobilinogen (<2.0) mg/dL Ur Leukocyte Esterase (Negative) Urine RBC (0-5) /hpf Urine WBC (0-5) /hpf Urine WBC Clumps (None) /hpf Ur Squamous Epith Cells (0-4) /hpf Urine Bacteria (None) /hpf Urine Mucus (None) /hpf Disposition Clinical Impression: UTI (urinary tract infection) Disposition: ADMITTED IP TO THIS HOSP Is patient prescribed a controlled substance at d/c from ED?: No Referrals: Nonstaff,Physician [REFERRING] - 1-2 days Time of Disposition: 15:19
[2024-08-12 13:11] LABS: Basophils % (A) 1 %; Eosinophils # (A) 0.1 k/uL (0-0.7); Eosinophils % (A) 2 %; HCT 38.3 % (34.0-46.0); HGB 12.4 gm/dL (11.4-16.0); Lymphocytes # (A) 1.1 k/uL (1.0-4.8); Lymphocytes % (A) 18 %; MCH 28.6 pg (25.0-35.0); MCHC 32.5 g/dL (31.0-37.0); MCV 88.1 fL (80.0-100.0); Mean Platelet Volume 8.5; Monocytes # (A) 0.3 k/uL (0-1.0); Monocytes % (A) 5 %; Neutrophils # (A) 4.3 k/uL (1.3-7.7); Neutrophils % (A) 74 %; Platelet Count 243 k/uL (150-450); RBC 4.35 m/uL (3.80-5.40); RDW 13.6 % (11.5-15.5); WBC 5.9 k/uL (3.8-10.6)
[2024-08-12 13:21] LABS: INR 1.1 (<1.2); Partial Thromboplastin Time 26.6 sec (22.0-30.0); Prothrombin Time 11.4 sec (10.0-12.5)
--- NOTE | 2024-08-12 13:35 | CT ---
EXAMINATION TYPE: CT brain wo con DATE OF EXAM: 08/12/2024 1:27 PM COMPARISON: 07/30/2024. CLINICAL INDICATION: Female, 84 years old with history of weakness, WEAKNESS TECHNIQUE: Brain: Axial CT images of the brain were obtained with coronal and sagittal reformats created and rev iewed. Contrast used: None. Oral contrast used: None. CT DLP: 1154.4 mGycm, Automated exposure control for dose reduction was used. FINDINGS: Brain: Extra-axial spaces: No abnormal extra-axial fluid collections. Ventricular system: Within normal limits Cerebral parenchyma: Cerebral atrophy. Remote right basal ganglia lacunar injury. No acute intraparen chymal hemorrhage or mass effect. The arroyo-white junction is well differentiated. Scattered hypoatte nuating areas are seen within the white matter. Cerebellum: Unremarkable. Mass effect: No evidence of midline shift. Intracranial vasculature: Atherosclerotic calcifications of the intracranial vessels. Soft tissues: Normal. Calvarium/osseous structures: No depressed skull fracture. Paranasal sinuses and mastoid air cells: Mild scattered paranasal sinus disease. Visualized orbits: Orbital contents are intact. IMPRESSION: 1. No acute intracranial process. 2. Nonspecific white matter changes, likely secondary to chronic small vessel ischemic disease. [facility], , 08/12/2024 1:33 PM
--- NOTE | 2024-08-12 13:37 | XR ---
EXAMINATION TYPE: XR chest 2V DATE OF EXAM: 08/12/2024 1:30 PM COMPARISON: Chest radiographs from 08/02/2024 CLINICAL INDICATION: Female, 84 years old with history of Weakness; [facility] TECHNIQUE: XR chest 2V Frontal and lateral views of the chest. FINDINGS: Lungs/Pleura: There is no evidence of pleural effusion, focal consolidation, or pneumothorax. Pulmonary vascularity: Unremarkable. Heart/mediastinum: Cardiomediastinal silhouette is unremarkable. Musculoskeletal: No acute osseous pathology. 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 IMPRESSION: No acute cardiopulmonary disease/process. [facility], , 08/12/2024 1:35 PM
[2024-08-12 13:42] LABS: ALT 10 U/L (4-34); AST 21 U/L (14-36); African American GFR (CKD) 75 (>60 ml/min/1.73 sqM); Albumin 3.6 g/dL (3.5-5.0); Alkaline Phosphatase 104 U/L (38-126); Anion Gap 7 mmol/L; Blood Urea Nitrogen 8 mg/dL (7-17); Calcium 8.7 mg/dL (8.4-10.2); Carbon Dioxide 21 mmol/L (22-30); Chloride 110 mmol/L (98-107); Glucose 157 mg/dL (74-99); Magnesium 1.7 mg/dL (1.6-2.3); Non-African American GFR(CKD) 65 (>60 ml/min/1.73 sqM); Potassium 4.2 mmol/L (3.5-5.1); Sodium 138 mmol/L (137-145); Total Bilirubin 0.9 mg/dL (0.2-1.3); Total Protein 6.2 g/dL (6.3-8.2)
[2024-08-12 14:10] LABS: Appearance,Urine Cloudy (Clear); Bacteria,Urine Many /hpf; Bilirubin,Urine Negative (Negative); Blood,Urine Small (Negative); Color,Urine Yellow; Glucose,Urine (UA) Negative (Negative); Ketones,Urine Negative (Negative); Leukocyte Esterase,Urine Large (Negative); Mucus,Urine Occasional /hpf; Nitrite,Urine Negative (Negative); Protein,Urine Negative (Negative); RBC,Urine 117 /hpf (0-5); Specific Gravity,Urine 1.011 (1.001-1.035); Squamous Epithelial Cell,Urine 1 /hpf (0-4); Urobilinogen,Urine <2.0 mg/dL (<2.0); WBC,Urine >182 /hpf (0-5)
[2024-08-12] MEDS ORDERED: NALOXONE 0.4 MG/ML 1 ML VIAL IV PRN (15:19)
[2024-08-12] MEDS ORDERED: LOPERAMIDE 2 MG CAP PO PRN (15:20)
[2024-08-12] MEDS: LEVOFLOXACIN 500MG-D5W PMX 500 MG in DEXTROSE/WATER 1 100ML.BAG IVPB SCH (15:43)
[2024-08-12] MEDS: IPRATROPIUM-ALBUTEROL 3 ML NEB INHALATION SCH (15:54)
[2024-08-12] MEDS: SODIUM CHLORIDE 0.9% 1,000 ML IV SCH (18:16)
[2024-08-12] MEDS: SYMBICORT 160-4.5 MCG INHALER INHALATION SCH (20:16)
[2024-08-12] MEDS ORDERED: NON FORMULARY DRUG (Acetaminophen [Tylenol 8 Hour] 650 MG Tablet) PO SCH (21:00)
[2024-08-12 21:10] LABS: Glucose,Whole Blood 161 mg/dL (70-110)
[2024-08-12] MEDS: NYSTATIN 100,000 UNIT/GM POWD 15 GM TOPICAL SCH (21:25)
[2024-08-12] MEDS: INSULIN DETEMIR (LEVEMIR) 100 UNIT/ML SYR SQ SCH (21:25)
[2024-08-12] MEDS: MONTELUKAST 10 MG TAB PO SCH (21:25)
[2024-08-12] MEDS: LACOSAMIDE 50 MG TABLET PO SCH (21:25)
[2024-08-12] MEDS: ATORVASTATIN 40 MG TAB PO SCH (21:25)
[2024-08-12] MEDS: LORATADINE 10 MG TAB PO SCH (21:25)
--- NOTE | 2024-08-12 22:01 | P.HPIM ---
History of Present Illness H&P Date: 08/12/24 Chief Complaint: Generalized weakness Patient is a 84-year-old female with a past medical history of atrial fibrillation on anticoagulation with Eliquis, history of CVA/TIA, diabetes type 2 insulin-dependent, history of VRE urinary tract infection, dementia. Patient presents to ER with complaints of generalized weakness and confusion. Patient states that she fell yesterday twice and states that she has been having decreased memory. Patient states that she has been weak and unable to get up and move around. Currently lives with her family. Denied any focal weakness. No weakness or seizures. She has been dealing with urinary tract infection for a month. Currently on antibiotics and follow-up Bactrim at home. Patient was previously admitted to the hospital in April 2024 due to syncopal episode thought to be vasovagal and orthostatic. EKG on admission showed sinus rhythm with marked sinus arrhythmia. CT head showed no acute intracranial process. Nonspecific white matter changes, likely secondary to chronic small vessel ischemic disease. Chest x-ray showed no acute cardiopulmonary disease/process. Laboratory data showed WBC 5.9 hemoglobin 12.4 and platelets 243 sodium 138 potassium 4.2 chloride 110 bicarb is 21 BUN 18 creatinine 0.83 and blood sugar 157 liver enzymes not elevated troponin x 1 negative Albumin 3.6 urinalysis showed cloudy with small blood large leukocyte esterase with elevated RBCs and WBCs. Urine culture on 07/30/2024 showed Staphylococcus lentiginosis and Klebsiella pneumonia. Review of Systems Complete review of systems could not be obtained from the patient except as per HPI Past Medical History Past Medical History: Atrial Fibrillation, CVA/TIA, Diabetes Mellitus, Hypertension, Memory Impairment Additional Past Medical History / Comment(s): UTI, falls History of Any Multi-Drug Resistant Organisms: VRE Date of last positivie culture/infection: 11/01/23 MDRO Source:: Urine Past Surgical History: Appendectomy Additional Past Surgical History / Comment(s): patient poor historian Past Anesthesia/Blood Transfusion Reactions: No Reported Reaction Past Psychological History: No Psychological Hx Reported Smoking Status: Never smoker Past Alcohol Use History: None Reported Past Drug Use History: None Reported - Past Family History Father History Unknown: Yes Medications and Allergies Home Medications Medication Instructions Recorded Confirmed Type Acetaminophen [Tylenol 8 Hour] 1,300 mg PO BID 08/25/23 08/12/24 History Apixaban [Eliquis] 5 mg PO BID 08/25/23 08/12/24 History Atorvastatin [Lipitor] 40 mg PO HS 08/25/23 08/12/24 History Diclofenac Sodium Gel [Voltaren 1% 1 applic TOPICAL QID PRN 08/25/23 08/12/24 History Gel] Escitalopram [Lexapro] 20 mg PO DAILY 08/25/23 08/12/24 History Ferrous Sulfate [Iron (65 MG 325 mg PO DAILY 08/25/23 08/12/24 History Elemental)] Ipratropium-Albuterol Nebulize 3 ml INHALATION RT-QID PRN 08/25/23 08/12/24 History [Duoneb 0.5 mg-3 mg/3 ml Soln] Levothyroxine Sodium [Synthroid] 12.5 mcg PO AC-BRKFST 08/25/23 08/12/24 History Loperamide HCl [Imodium A-D] 2 mg PO QID PRN 08/25/23 08/12/24 History Loratadine 10 mg PO HS 08/25/23 08/12/24 History Montelukast [Singulair] 10 mg PO HS 08/25/23 08/12/24 History Budesonide-Formot 160-4.5 Mcg 2 puff INHALATION RT-BID #1 each 10/28/23 08/12/24 Rx [Symbicort 160-4.5 Mcg Inhaler] Acetaminophen Tab [Tylenol] 650 mg PO Q6HR PRN tab 11/04/23 08/12/24 Rx Ipratropium-Albuterol Nebulize 3 ml INHALATION RT-QID #100 each 11/04/23 4 Rx [Duoneb 0.5 mg-3 mg/3 ml Soln] Diltiazem Cd [Cardizem CD] 180 mg PO DAILY cap 12/09/23 08/12/24 Rx Thiamine [Vitamin B-1] 100 mg PO DAILY tab 12/09/23 08/12/24 Rx Spiriva Respimat 1.25mcg/Actuation 1 puff INHALATION RT-DAILY PRN 05/10/24 08/12/24 History Mist Losartan [Cozaar] 25 mg PO DAILY 30 Days #30 tab 05/14/24 08/12/24 Rx Pantoprazole [Protonix] 40 mg PO AC-BRKFST 30 Days #30 tab 05/14/24 08/12/24 Rx Insulin Detemir (Levemir) [Levemir] 16 unit SQ BID@0700,2100 each 06/21/24 08/12/24 Rx Lacosamide [Vimpat] 100 mg PO HS #4 tab 06/21/24 08/12/24 Rx Nystatin 100,000 Unit/gm Powd 1 applic TOPICAL BID each 06/21/24 08/12/24 Rx [Mycostatin Powder] INSULIN ASPART (NovoLOG) [NovoLOG See Protocol SQ ACHS 07/30/24 08/12/24 History (formulary)] Phenazopyridine [Pyridium] 100 mg PO TID 2 Days #6 tab 08/03/24 08/12/24 Rx Sulfamethox-Tmp 800-160Mg [Bactrim 1 tab PO Q12HR 5 Days #10 tab 08/03/24 08/12/24 Rx DS 800-160 mg] Allergies Allergy/AdvReac Type Severity Reaction Status Date / Time Penicillins Allergy Rash/Hives Verified 07/30/24 09:15 cefepime AdvReac Confusion Verified 07/30/24 09:15 Physical Exam Vitals: Vital Signs Temp Pulse Pulse Resp BP BP Pulse Ox 08/12/24 20:26 69 08/12/24 20:16 66 08/12/24 20:00 98.2 F 68 15 116/69 96 08/12/24 16:52 66 18 130/82 95 08/12/24 16:07 68 08/12/24 15:54 66 08/12/24 15:49 65 18 126/67 95 08/12/24 15:33 97.6 F 72 18 140/63 96 08/12/24 13:08 76 18 153/77 95 08/12/24 12:30 97.9 F 77 18 157/90 95 08/12/24 12:00 97.5 F L 74 18 126/83 96 Intake and Output 08/12/24 08/12/24 08/12/24 06:59 14:59 22:59 Intake Total 700 Balance 700 Intake: Intake, IV Titration 700 Amount Levofloxacin 500Mg-D5w 100 Pmx 500 mg In Dextrose/ Water 1 100ml.bag @ 100 mls/hr IVPB Q48H [facility] Rx#: [id number] Sodium Chloride 0.9% 1, 600 000 ml @ 75 mls/hr IV . [id number] [facility] Rx#:[id number] Other: Weight 111.13 kg 111.13 kg PHYSICAL EXAMINATION: Patient is lying in the bed, no acute distress, awake alert and oriented. Morbidly obese. HEENT: Normocephalic. Neck is supple. Pupils reactive. Nostrils clear. Oral cavity is moist. Neck reveals no JVD, carotid bruits, or thyromegaly. CHEST EXAMINATION: Trachea is central. Symmetrical expansion. Bibasilar diminished sounds otherwise lung [place] clear to auscultation and percussion. CARDIAC: Normal S1, S2 with no gallops. No murmurs ABDOMEN: Soft. Bowel sounds normal. No organomegaly. No abdominal bruits. Extremities: reveal no edema. No clubbing or cyanosis Neurologically awake, alert, oriented x to with well-coordinated movements. No gross focal deficits noted Skin: No rash or skin lesions. Psychiatric: Coperative. Nonsuicidal Musculoskeletal: No joint swelling or deformity. Results CBC & Chem 7: 08/12/24 12:34 08/12/24 12:34 Labs: Abnormal Lab Results - Last 24 Hours (Table) 08/12/24 08/12/24 08/12/24 Range/Units 12:34 12:34 21:08 Chloride 110 H (98-107) mmol/L Carbon Dioxide 21 L (22-30) mmol/L Glucose 157 H (74-99) mg/dL POC Glucose (mg/dL) 161 H (70-110) mg/dL Total Protein 6.2 L (6.3-8.2) g/dL Urine Appearance Cloudy H (Clear) Urine Blood Small H (Negative) Ur Leukocyte Esterase Large H (Negative) Urine RBC 117 H (0-5) /hpf Urine WBC >182 H (0-5) /hpf Urine WBC Clumps Moderate H (None) /hpf Urine Bacteria Many H (None) /hpf Urine Mucus Occasional H (None) /hpf Thrombosis Risk Factor Assmnt - DVT/VTE Prophylaxis DVT/VTE Prophylaxis: Pharmacologic Prophylaxis ordered - Choose All That Apply Any of the Below Risk Factors Present?: Yes Each Factor Represents 1 point: Obesity (BMI >25) Each Risk Factor Represents 3 Points: Age 75 years or older Thrombosis Risk Factor Assessment Total Risk Factor Score: 4 Thrombosis Risk Factor Assessment Level: Moderate Risk Assessment and Plan Assessment: Generalized weakness and recurrent falls at home Acute urinary tract infection failed outpatient antibiotic therapy. Hyperglycemia with uncontrolled diabetes type 2 insulin-dependent Paroxysmal atrial fibrillation. On anticoagulation with Eliquis. Currently maintaining sinus rhythm. Prior history of vasovagal syncope Hypertension Memory impairment/dementia History of VRE UTI Hypothyroidism Prior history of smoking DVT prophylaxis. Patient is on Eliquis. Plan: Patient will be continued on IV hydration with normal saline. Current with antibiotics Levaquin and follow-up repeat urine culture report. Follow-up blood cultures and continue with home medications including insulin sliding scale. Eliquis is on hold due to recurrent falls. Obtain orthostatic vitals. Continue with daily monitoring and follow-up closely. PT OT consult and patient may need rehab transfer. Time with Patient: Greater than 30
[2024-08-12] MEDS ORDERED: DEXTROSE 50% SYRINGE 50 ML IVP PRN ×2 (22:03)
[2024-08-13] MEDS: ACETAMINOPHEN TAB 325 MG TAB PO PRN (01:43)
[2024-08-13] MEDS: LEVOTHYROXINE 25 MCG TAB PO SCH (06:27)
[2024-08-13] MEDS: PANTOPRAZOLE 40 MG TABLET PO SCH (06:27)
[2024-08-13] MEDS: INSULIN ASPART (NovoLOG) 100 UNIT/ML VIAL SQ SCH (06:42)
[2024-08-13 06:43] LABS: Glucose,Whole Blood 130 mg/dL (70-110)
[2024-08-13 08:42] LABS: Basophils # (A) 0.04 X 10*3/uL (0.00-0.10); Basophils % (A) 0.5 %; Eosinophils # (A) 0.04 X 10*3/uL (0.04-0.35); Eosinophils % (A) 0.5 %; HCT 34.1 % (37.2-46.3); Lymphocytes # (A) 1.62 X 10*3/uL (0.90-5.00); Lymphocytes % (A) 20.9 %; MCH 28.5 pg (27.0-32.0); MCHC 32.3 g/dL (32.0-37.0); MCV 88.3 FL (80.0-97.0); Mean Platelet Volume 10.7 FL (9.5-12.2); Monocytes # (A) 0.59 X 10*3/uL (0.20-1.00); Monocytes % (A) 7.6 %; NRBC Per 100 WBC 0 X 10*3/uL (0.00-0.01); Neutrophils # (A) 5.43 X 10*3/uL (1.80-7.70); Neutrophils % (A) 70.1 %; Platelet Count 219 X 10*3/uL (140-440); RBC 3.86 X 10*6/uL (4.10-5.20); RDW 13.3 % (11.5-14.5); WBC 7.75 X 10*3/uL (4.50-10.00)
[2024-08-13 08:53] LABS: ALT 8 U/L (8-44); AST 15 U/L (13-35); Albumin 3.6 g/dL (3.8-4.9); Albumin/Globulin Ratio 1.89 Ratio (1.60-3.17); Alkaline Phosphatase 93 U/L (41-126); BUN/Creat Ratio 10.64 Ratio (12.00-20.00); Blood Urea Nitrogen 11.7 mg/dL (9.0-27.0); Calcium 8.3 mg/dL (8.7-10.3); Carbon Dioxide 20.6 mmol/L (21.6-31.8); Chloride 104 mmol/L (96-109); Globulin 1.9 g/dL (1.6-3.3); Glucose 147 mg/dL (70-110); Potassium 4.1 mmol/L (3.5-5.5); Sodium 138 mmol/L (135-145); Total Bilirubin 0.4 mg/dL (0.3-1.2); Total Protein 5.5 g/dL (6.2-8.2)
[2024-08-13] MEDS: FERROUS SULFATE 325 MG TAB PO SCH (10:02)
[2024-08-13] MEDS: LOSARTAN 25 MG TAB PO SCH (10:02)
[2024-08-13] MEDS: THIAMINE 100 MG TAB PO SCH (10:02)
[2024-08-13] MEDS: ESCITALOPRAM 20 MG TAB PO SCH (10:02)
[2024-08-13 11:24] LABS: Glucose,Whole Blood 211 mg/dL (70-110)
[2024-08-13] MEDS: DILTIAZEM CD 180 MG CAP.ER.24H PO SCH (11:55)
[2024-08-13 16:59] LABS: Glucose,Whole Blood 211 mg/dL (70-110)
[2024-08-13 20:23] LABS: Glucose,Whole Blood 187 mg/dL (70-110)
[2024-08-13] MEDS: APIXABAN 5 MG TAB PO SCH (21:32)
--- NOTE | 2024-08-14 02:35 | P.PN ---
Subjective Progress Note Date: 08/13/24 Patient is a 84-year-old female with a past medical history of atrial fibrillation on anticoagulation with Eliquis, history of CVA/TIA, diabetes type 2 insulin-dependent, history of VRE urinary tract infection, dementia. Patient presents to ER with complaints of generalized weakness and confusion. Patient states that she fell yesterday twice and states that she has been having decreased memory. Patient states that she has been weak and unable to get up and move around. Currently lives with her family. Denied any focal weakness. No weakness or seizures. She has been dealing with urinary tract infection for a month. Currently on antibiotics and follow-up Bactrim at home. Patient was previously admitted to the hospital in April 2024 due to syncopal episode thought to be vasovagal and orthostatic. EKG on admission showed sinus rhythm with marked sinus arrhythmia. CT head showed no acute intracranial process. Nonspecific white matter changes, likely secondary to chronic small vessel ischemic disease. Chest x-ray showed no acute cardiopulmonary disease/process. Laboratory data showed WBC 5.9 hemoglobin 12.4 and platelets 243 sodium 138 potassium 4.2 chloride 110 bicarb is 21 BUN 18 creatinine 0.83 and blood sugar 157 liver enzymes not elevated troponin x 1 negative Albumin 3.6 urinalysis showed cloudy with small blood large leukocyte esterase with elevated RBCs and WBCs. Urine culture on 07/30/2024 showed Staphylococcus lentiginosis and Klebsiella pneumonia. 08/13/2024 Patient is seen and evaluated in follow-up today maintained on antibiotics and awaiting a urine and blood culture at this time. Patient was recently hospitalized and discharged for altered mental status along with urinary tract infection and recurrent falls. Patient was evaluated by physical therapy recomm ending rehab and patient was agreeable although patient owes money to multiple facilities within this location. Patient does have a legal guardian who was made aware of these fees. Patient currently living at home with daughter who also has the same guardian. Patient reports when she returned home she continued to be weak and having more recurrent falls. Patient needs ECF and will discuss further with case management regarding discharge plan. Review of systems: Constitutional: No reports of fatigue, fever, or chills Cardiovascular: No reports of chest pain or palpitations Respiratory: No reports of shortness of breath or cough GI: No reports of nausea, vomiting, or diarrhea : No reports of dysuria or retention Neurovascular: reports of generalized weakness with difficulty getting up to ambulate and very unsteady with walking All medications have been reviewed PHYSICAL EXAMINATION: Patient is sitting on the toilet, experiencing extreme weakness and difficulty positioning, awake alert and oriented x 2 baseline. Well-developed, elderly appearing morbidly obese. HEENT: Normocephalic. Neck is supple. Pupils reactive. Nostrils clear. Oral cavity is moist. Neck reveals no JVD, carotid bruits, or thyromegaly. CHEST EXAMINATION: Trachea is central. Symmetrical expansion. Bibasilar diminished sounds otherwise lung [place] clear to auscultation and percussion. CARDIAC: Normal S1, S2 with no gallops. No murmurs ABDOMEN: Soft. Bowel sounds normal. No organomegaly. No abdominal bruits. Extremities: reveal no edema. No clubbing or cyanosis Neurologically awake, alert, oriented x 2 with well-coordinated movements. No gross focal deficits noted diffusely weak Skin: No rash or skin lesions. Psychiatric: Cooperative. Non-suicidal Musculoskeletal: No joint swelling or deformity. Assessment: Generalized weakness and recurrent falls at home Acute urinary tract infection failed outpatient antibiotic therapy. Hyperglycemia with uncontrolled diabetes type 2 insulin-dependent Paroxysmal atrial fibrillation. On anticoagulation with Eliquis. Currently maintaining sinus rhythm. Prior history of vasovagal syncope Hypertension Memory impairment/dementia History of VRE UTI Hypothyroidism Prior history of smoking DVT prophylaxis. Patient is on Eliquis. GI prophylaxis Full code Plan: Patient will be continued on IV hydration with normal saline. Current with a ntibiotics Levaquin and follow-up repeat urine culture report. Urine and blood cultures are pending at this time Recommend PT/OT therapy evaluation along with case management consult. Patient does have a guardian and was recently hospitalized and rehab was recommended for continued strength and mobility although apparently patient owes money to multiple facilities in this area. Guardian is aware Anticoagulation resumed Will await urine and blood culture and further discharge planning Patient may benefit from long-term as patient is becoming progressively more weak, having more recurrent falls, and unable to care for herself. Will need to discuss with guardian regarding overall plan as well. The impression and plan of care has been dictated by Dulce Fox, Nurse Practitioner as directed. Dr. Garrick MD I have performed a history and examination and MDM of this patient, discussed the same with the dictator, and agree with the dictator's assessment and plan as written ,documented as a scribe. Based on total visit time, I have performed more than 50% of the visit. Objective - Vital Signs Vital signs: Vital Signs Temp 98.2 F 08/13/24 07:16 Pulse 78 08/13/24 12:12 Resp 16 08/13/24 07:16 BP 136/83 08/13/24 07:16 Pulse Ox 95 08/13/24 07:16 FiO2 Intake & Output 08/12/24 08/13/24 08/13/24 18:59 06:59 18:59 Intake Total 700 Balance 700 Weight 111.13 kg Intake: Intake, IV Titration 700 Amount Levofloxacin 500Mg-D5w 100 Pmx 500 mg In Dextrose/ Water 1 100ml.bag @ 100 mls/hr IVPB Q48H [facility] Rx#: [id number] Sodium Chloride 0.9% 1, 600 000 ml @ 75 mls/hr IV . [id number] [facility] Rx#:[id number] Other: Voiding Method Bedside Commode Incontinent External Catheter # Voids 1 # Bowel Movements 1 - Labs CBC & Chem 7: 08/13/24 02:52 08/13/24 02:52 Labs: Abnormal Lab Results - Last 24 Hours (Table) 08/12/24 08/13/24 08/13/24 Range/Units 21:08 02:52 02:52 RBC 3.86 L (4.10-5.20) X 10*6/uL Hgb 11.0 L (12.0-15.0) g/dL Hct 34.1 L (37.2-46.3) % Carbon Dioxide 20.6 L (21.6-31.8) mmol/L Anion Gap 13.40 H (4.00-12.00) mmol/L Est GFR (CKD-EPI) 50 L (>=60) BUN/Creatinine Ratio 10.64 L (12.00-20.00) Ratio Glucose 147 H (70-110) mg/dL POC Glucose (mg/dL) 161 H (70-110) mg/dL Hemoglobin A1c (<=6.0) % Calcium 8.3 L (8.7-10.3) mg/dL Total Protein 5.5 L (6.2-8.2) g/dL Albumin 3.6 L (3.8-4.9) g/dL 08/13/24 08/13/24 08/13/24 Range/Units 02:52 06:41 11:22 RBC (4.10-5.20) X 10*6/uL Hgb (12.0-15.0) g/dL Hct (37.2-46.3) % Carbon Dioxide (21.6-31.8) mmol/L Anion Gap (4.00-12.00) mmol/L Est GFR (CKD-EPI) (>=60) BUN/Creatinine Ratio (12.00-20.00) Ratio Glucose (70-110) mg/dL POC Glucose (mg/dL) 130 H 211 H (70-110) mg/dL Hemoglobin A1c 8.2 H (<=6.0) % Calcium (8.7-10.3) mg/dL Total Protein (6.2-8.2) g/dL Albumin (3.8-4.9) g/dL
[2024-08-14 06:46] LABS: Glucose,Whole Blood 120 mg/dL (70-110)
[2024-08-14 08:56] LABS: BUN/Creat Ratio 10.11 Ratio (12.00-20.00); Blood Urea Nitrogen 9.1 mg/dL (9.0-27.0); Calcium 8.2 mg/dL (8.7-10.3); Carbon Dioxide 21.3 mmol/L (21.6-31.8); Chloride 110 mmol/L (96-109); Glucose 162 mg/dL (70-110); Potassium 4.1 mmol/L (3.5-5.5); Sodium 142 mmol/L (135-145)
[2024-08-14 12:38] LABS: Glucose,Whole Blood 153 mg/dL (70-110)
[2024-08-14 16:56] LABS: Glucose,Whole Blood 177 mg/dL (70-110)
--- NOTE | 2024-08-14 19:17 | P.PN ---
Progress Note - Text Progress Note Date: 08/14/24 Chief Complaint: Generalized weakness Patient is a 84-year-old female with a past medical history of atrial fibrillation on anticoagulation with Eliquis, history of CVA/TIA, diabetes type 2 insulin-dependent, history of VRE urinary tract infection, dementia. Patient presents to ER with complaints of generalized weakness and confusion. Patient states that she fell yesterday twice and states that she has been having decreased memory. Patient states that she has been weak and unable to get up and move around. Currently lives with her family. Denied any focal weakness. No weakness or seizures. She has been dealing with urinary tract infection for a month. Currently on antibiotics and follow-up Bactrim at home. Patient was previously admitted to the hospital in April 2024 due to syncopal episode thought to be vasovagal and orthostatic. EKG on admission showed sinus rhythm with marked sinus arrhythmia. CT head showed no acute intracranial process. Nonspecific white matter changes, likely secondary to chronic small vessel ischemic disease. Chest x-ray showed no acute cardiopulmonary disease/process. Laboratory data showed WBC 5.9 hemoglobin 12.4 and platelets 243 sodium 138 potassium 4.2 chloride 110 bicarb is 21 BUN 18 creatinine 0.83 and blood sugar 157 liver enzymes not elevated troponin x 1 negative Albumin 3.6 urinalysis showed cloudy with small blood large leukocyte esterase with elevated RBCs and WBCs. Urine culture on 07/30/2024 showed Staphylococcus lentiginosis and Klebsiella pneumonia. August 14: Sitting up in bed. Eating fair. Lives with her daughter. Does use a walker and a wheelchair. Getting IV Levaquin. Blood and urine cultures pending Active Medications Acetaminophen (Acetaminophen Tab 325 Mg Tab) 650 mg PO Q6HR PRN PRN Reason: Mild Pain or Fever > 100.5 Last Admin: 08/13/24 01:43 Dose: 650 mg Albuterol/Ipratropium (Ipratropium-Albuterol 3 Ml Neb) 3 ml INHALATION RT-QID [facility] Last Admin: 08/14/24 16:04 Dose: Not Given Apixaban (Apixaban 5 Mg Tab) 5 mg PO BID [facility]; Protocol Last Admin: 08/14/24 08:33 Dose: 5 mg Atorvastatin Calcium (Atorvastatin 40 Mg Tab) 40 mg PO HS [facility] Last Admin: 08/13/24 21:32 Dose: 40 mg Budesonide/Formoterol Fumarate (Symbicort 160-4.5 Mcg Inhaler) 2 puff INHALATION RT-BID [facility] Last Admin: 08/14/24 08:49 Dose: Not Given Dextrose/Water (Dextrose 50% Syringe 50 Ml) 25 ml IVP PER PROTOCOL PRN; Protocol PRN Reason: Hypoglycemia Dextrose/Water (Dextrose 50% Syringe 50 Ml) 50 ml IVP PER PROTOCOL PRN; Protocol PRN Reason: Hypoglycemia Diltiazem HCl (Diltiazem Cd 180 Mg Cap.Er.24h) 180 mg PO DAILY [facility] Last Admin: 08/14/24 08:33 Dose: 180 mg Escitalopram Oxalate (Escitalopram 20 Mg Tab) 20 mg PO DAILY [facility] Last Admin: 08/14/24 08:33 Dose: 20 mg Ferrous Sulfate (Ferrous Sulfate 325 Mg Tab) 325 mg PO DAILY [facility] Last Admin: 08/14/24 08:33 Dose: 325 mg Levofloxacin 500 mg/ IV (Solution) 100 mls @ 100 mls/hr IVPB Q48H [facility]; Protocol Last Admin: 08/14/24 15:44 Dose: 100 mls/hr Sodium Chloride (Saline 0.9%) 1,000 mls @ 75 mls/hr IV .[id number] [facility] Last Admin: 08/14/24 06:02 Dose: 75 mls/hr Insulin Aspart (Insulin Aspart (Novolog) 100 Unit/Ml Vial) 0 unit SQ ACHS [facility]; Protocol Last Admin: 08/14/24 17:14 Dose: 1 unit Insulin Detemir (Insulin Detemir (Levemir) 100 Unit/Ml Syr) 16 unit SQ BID@0700,2100 [facility] Last Admin: 08/14/24 08:33 Dose: 16 unit Lacosamide (Lacosamide 50 Mg Tablet) 100 mg PO HS [facility] Last Admin: 08/13/24 21:32 Dose: 100 mg Levothyroxine Sodium (Levothyroxine 25 Mcg Tab) 12.5 mcg PO AC-BRKFST [facility] Last Admin: 08/14/24 06:03 Dose: 12.5 mcg Loperamide HCl (Loperamide 2 Mg Cap) 2 mg PO QID PRN PRN Reason: Diarrhea Loratadine (Loratadine 10 Mg Tab) 10 mg PO HS [facility] Last Admin: 08/13/24 21:32 Dose: 10 mg Losartan Potassium (Losartan 25 Mg Tab) 25 mg PO DAILY [facility] Last Admin: 08/14/24 08:33 Dose: 25 mg Montelukast Sodium (Montelukast 10 Mg Tab) 10 mg PO HS [facility] Last Admin: 08/13/24 21:32 Dose: 10 mg Naloxone HCl (Naloxone 0.4 Mg/Ml 1 Ml Vial) 0.2 mg IV Q2M PRN PRN Reason: Opioid Reversal Nystatin (Nystatin 100,000 Unit/Gm Powd 15 Gm) 1 applic TOPICAL TID [facility]; Protocol Last Admin: 08/14/24 15:44 Dose: 1 applic Pantoprazole Sodium (Pantoprazole 40 Mg Tablet) 40 mg PO AC-BRKFST [facility] Last Admin: 08/14/24 06:03 Dose: 40 mg Thiamine HCl (Thiamine 100 Mg Tab) 100 mg PO DAILY [facility] Last Admin: 08/14/24 08:33 Dose: 100 mg On examination: VITAL SIGNS: [97.8, 86, 18, 157 x 77, 94% room] GENERAL APPEARANCE: BMI 44.8, resting in bed comfortable HEENT: Normal external appearance of nose and ear. Oral cavity normal EYES: Pupils equal. Conjunctiva normal. NECK: JVD not raised. Mass not palpable. RESPIRATORY: Respiratory effort normal. Lungs clear to auscultation. CARDIOVASCULAR: First and second sounds normal. No edema. ABDOMEN: Soft. Liver and spleen not palpable. No tenderness. No mass palpable. PSYCHIATRY: Answering simple questions. Forgetful. INVESTIGATIONS, reviewed in the clinical context: August 14: Sodium 142 potassium 4.1 BUN 9.1 creatinine 0.9 July 30, 2024: Urine culture positive for Staphylococcuslugdunenisis, Klebsiella pneumoniae Past Medical History Past Medical History: Atrial Fibrillation, CVA/TIA, Diabetes Mellitus, Hypertension, Memory Impairment Additional Past Medical History / Comment(s): UTI, falls History of Any Multi-Drug Resistant Organisms: VRE Date of last positivie culture/infection: 11/01/23 MDRO Source:: Urine Past Surgical History: Appendectomy Additional Past Surgical History / Comment(s): patient poor historian Past Anesthesia/Blood Transfusion Reactions: No Reported Reaction Past Psychological History: No Psychological Hx Reported Smoking Status: Never smoker Past Alcohol Use History: None Reported Past Drug Use History: None Reported Assessment: Generalized weakness and recurrent falls at home Acute urinary tract infection failed outpatient antibiotic therapy. Hyperglycemia with uncontrolled diabetes type 2 insulin-dependent Paroxysmal atrial fibrillation. On anticoagulation with Eliquis. Currently maintaining sinus rhythm. Hypertension Memory impairment/dementia Hypothyroidism Plan: Cultures are pending. Oral intake good. Cut back IV fluids.
[2024-08-14 20:47] LABS: Glucose,Whole Blood 114 mg/dL (70-110)
[2024-08-15 06:50] LABS: Glucose,Whole Blood 146 mg/dL (70-110)
[2024-08-15 11:33] LABS: Glucose,Whole Blood 269 mg/dL (70-110)
--- NOTE | 2024-08-15 16:50 | P.PN ---
Progress Note - Text Progress Note Date: 08/15/24 Chief Complaint: Generalized weakness Patient is a 84-year-old female with a past medical history of atrial fibrillation on anticoagulation with Eliquis, history of CVA/TIA, diabetes type 2 insulin-dependent, history of VRE urinary tract infection, dementia. Patient presents to ER with complaints of generalized weakness and confusion. Patient states that she fell yesterday twice and states that she has been having decreased memory. Patient states that she has been weak and unable to get up and move around. Currently lives with her family. Denied any focal weakness. No weakness or seizures. She has been dealing with urinary tract infection for a month. Currently on antibiotics and follow-up Bactrim at home. Patient was previously admitted to the hospital in April 2024 due to syncopal episode thought to be vasovagal and orthostatic. EKG on admission showed sinus rhythm with marked sinus arrhythmia. CT head showed no acute intracranial process. Nonspecific white matter changes, likely secondary to chronic small vessel ischemic disease. Chest x-ray showed no acute cardiopulmonary disease/process. Laboratory data showed WBC 5.9 hemoglobin 12.4 and platelets 243 sodium 138 potassium 4.2 chloride 110 bicarb is 21 BUN 18 creatinine 0.83 and blood sugar 157 liver enzymes not elevated troponin x 1 negative Albumin 3.6 urinalysis showed cloudy with small blood large leukocyte esterase with elevated RBCs and WBCs. Urine culture on 07/30/2024 showed Staphylococcus lentiginosis and Klebsiella pneumonia. August 14: Sitting up in bed. Eating fair. Lives with her daughter. Does use a walker and a wheelchair. Getting IV Levaquin. Blood and urine cultures pending August 15: Comfortable. On Levaquin. Culture still pending. Spoke to bilingual patient support caseworker. Patient follows with home MD. She did try to reach out to them. Change Levaquin to p.o. Active Medications Acetaminophen (Acetaminophen Tab 325 Mg Tab) 650 mg PO Q6HR PRN PRN Reason: Mild Pain or Fever > 100.5 Last Admin: 08/13/24 01:43 Dose: 650 mg Albuterol/Ipratropium (Ipratropium-Albuterol 3 Ml Neb) 3 ml INHALATION RT-QID [facility] Last Admin: 08/15/24 16:38 Dose: 3 ml Apixaban (Apixaban 5 Mg Tab) 5 mg PO BID [facility]; Protocol Last Admin: 08/15/24 10:27 Dose: 5 mg Atorvastatin Calcium (Atorvastatin 40 Mg Tab) 40 mg PO HS [facility] Last Admin: 08/14/24 21:18 Dose: 40 mg Budesonide/Formoterol Fumarate (Symbicort 160-4.5 Mcg Inhaler) 2 puff INHALATIO N RT-BID [facility] Last Admin: 08/15/24 07:53 Dose: 2 puff Dextrose/Water (Dextrose 50% Syringe 50 Ml) 25 ml IVP PER PROTOCOL PRN; Protocol PRN Reason: Hypoglycemia Dextrose/Water (Dextrose 50% Syringe 50 Ml) 50 ml IVP PER PROTOCOL PRN; Protocol PRN Reason: Hypoglycemia Diltiazem HCl (Diltiazem Cd 180 Mg Cap.Er.24h) 180 mg PO DAILY [facility] Last Admin: 08/15/24 10:26 Dose: 180 mg Escitalopram Oxalate (Escitalopram 20 Mg Tab) 20 mg PO DAILY [facility] Last Admin: 08/15/24 10:27 Dose: 20 mg Ferrous Sulfate (Ferrous Sulfate 325 Mg Tab) 325 mg PO DAILY [facility] Last Admin: 08/15/24 10:27 Dose: 325 mg Insulin Aspart (Insulin Aspart (Novolog) 100 Unit/Ml Vial) 0 unit SQ ACHS [facility]; Protocol Last Admin: 08/15/24 13:19 Dose: 3 unit Insulin Detemir (Insulin Detemir (Levemir) 100 Unit/Ml Syr) 16 unit SQ BID@0700,2100 [facility] Last Admin: 08/15/24 06:58 Dose: 16 unit Lacosamide (Lacosamide 50 Mg Tablet) 100 mg PO HS [facility] Last Admin: 08/14/24 21:18 Dose: 100 mg Levofloxacin (Levofloxacin 500 Mg Tab) 500 mg PO Q24H [facility]; Protocol Levothyroxine Sodium (Levothyroxine 25 Mcg Tab) 12.5 mcg PO AC-BRKFST [facility] Last Admin: 08/15/24 06:58 Dose: 12.5 mcg Loperamide HCl (Loperamide 2 Mg Cap) 2 mg PO QID PRN PRN Reason: Diarrhea Loratadine (Loratadine 10 Mg Tab) 10 mg PO HS [facility] Last Admin: 08/14/24 21:18 Dose: 10 mg Losartan Potassium (Losartan 25 Mg Tab) 25 mg PO DAILY [facility] Last Admin: 08/15/24 10:27 Dose: 25 mg Montelukast Sodium (Montelukast 10 Mg Tab) 10 mg PO HS [facility] Last Admin: 08/14/24 21:18 Dose: 10 mg Naloxone HCl (Naloxone 0.4 Mg/Ml 1 Ml Vial) 0.2 mg IV Q2M PRN PRN Reason: Opioid Reversal Nystatin (Nystatin 100,000 Unit/Gm Powd 15 Gm) 1 applic TOPICAL TID [facility]; Protocol Last Admin: 08/15/24 10:27 Dose: 1 applic Pantoprazole Sodium (Pantoprazole 40 Mg Tablet) 40 mg PO AC-BRKFST [facility] Last Admin: 08/15/24 06:58 Dose: 40 mg Thiamine HCl (Thiamine 100 Mg Tab) 100 mg PO DAILY [facility] Last Admin: 08/15/24 10:27 Dose: 100 mg On examination: VITAL SIGNS:] 98.3, 87, 17, 120 x 69, 96% room GENERAL APPEARANCE: Comfortable HEENT: Normal external appearance of nose and ear. Oral cavity normal EYES: Pupils equal. Conjunctiva normal. NECK: JVD not raised. Mass not palpable. RESPIRATORY: Respiratory effort normal. Lungs clear to auscultation. CARDIOVASCULAR: First and second sounds normal. No edema. ABDOMEN: Soft. Liver and spleen not palpable. No tenderness. No mass palpable. PSYCHIATRY: Answering simple questions. Forgetful. INVESTIGATIONS, reviewed in the clinical context: Urine and blood culture: Pending August 14: Sodium 142 potassium 4.1 BUN 9.1 creatinine 0.9 July 30, 2024: Urine culture positive for Staphylococcuslugdunenisis, Klebsiella pneumoniae Past Medical History Past Medical History: Atrial Fibrillation, CVA/TIA, Diabetes Mellitus, Hypertension, Memory Impairment Additional Past Medical History / Comment(s): UTI, falls History of Any Multi-Drug Resistant Organisms: VRE Date of last positivie culture/infection: 11/01/23 MDRO Source:: Urine Past Surgical History: Appendectomy Additional Past Surgical History / Comment(s): patient poor historian Past Anesthesia/Blood Transfusion Reactions: No Reported Reaction Past Psychological History: No Psychological Hx Reported Smoking Status: Never smoker Past Alcohol Use History: None Reported Past Drug Use History: None Reported Assessment: Generalized weakness and recurrent falls at home Acute urinary tract infection failed outpatient antibiotic therapy.-Cultures pending Hyperglycemia with uncontrolled diabetes type 2 insulin-dependent Paroxysmal atrial fibrillation. On anticoagulation with Eliquis. Currently maintaining sinus rhythm. Essential hypertension Moderate memory impairment/dementia Hypothyroidism Plan: Cultures are pending. Oral intake good. Changed to oral Levaquin
[2024-08-15 17:23] LABS: Glucose,Whole Blood 196 mg/dL (70-110)
[2024-08-15 20:49] LABS: Glucose,Whole Blood 253 mg/dL (70-110)
[2024-08-16 06:57] LABS: Glucose,Whole Blood 130 mg/dL (70-110)
[2024-08-16] MEDS: LEVOFLOXACIN 500 MG TAB PO SCH (10:12)
[2024-08-16 11:47] LABS: Glucose,Whole Blood 150 mg/dL (70-110)
[2024-08-16 12:06] VITALS: BP 106/71; TEMP 98.1
[2024-08-16 12:13] VITALS: RESP 16
[2024-08-16 12:22] VITALS: PULSE 90
--- NOTE | 2024-08-16 16:42 | P.DS ---
Providers Date of admission: 08/12/24 15:20 Expected date of discharge: 08/16/24 Attending physician: Zachery Giraldo Primary care physician: Sarthak [facility] Hospital Course: Chief Complaint: Generalized weakness Patient is a 84-year-old female with a past medical history of atrial fibrillation on anticoagulation with Eliquis, history of CVA/TIA, diabetes type 2 insulin-dependent, history of VRE urinary tract infection, dementia. Patient presents to ER with complaints of generalized weakness and confusion. Patient states that she fell yesterday twice and states that she has been having decreased memory. Patient states that she has been weak and unable to get up and move around. Currently lives with her family. Denied any focal weakness. No weakness or seizures. She has been dealing with urinary tract infection for a month. Currently on antibiotics and follow-up Bactrim at home. Patient was previously admitted to the hospital in April 2024 due to syncopal episode thought to be vasovagal and orthostatic. EKG on admission showed sinus rhythm with marked sinus arrhythmia. CT head showed no acute intracranial process. Nonspecific white matter changes, likely secondary to chronic small vessel ischemic disease. Chest x-ray showed no acute cardiopulmonary disease/process. Laboratory data showed WBC 5.9 hemoglobin 12.4 and platelets 243 sodium 138 potassium 4.2 chloride 110 bicarb is 21 BUN 18 creatinine 0.83 and blood sugar 157 liver enzymes not elevated troponin x 1 negative Albumin 3.6 urinalysis showed cloudy with small blood large leukocyte esterase with elevated RBCs and WBCs. Urine culture on 07/30/2024 showed Staphylococcus lentiginosis and Klebsiella pneumonia. August 14: Sitting up in bed. Eating fair. Lives with her daughter. Does use a walker and a wheelchair. Getting IV Levaquin. Blood and urine cultures pending August 15: Comfortable. On Levaquin. Culture still pending. Spoke to case management coordinator. Patient follows with home MD. She did try to reach out to them. Change Levaquin to p.o. August 16: Urine cultures-Staphylococcus lugdunensis.patient will be discharged with 3 more tablets of Levaquin. Eating well. On examination: VITAL SIGNS:] 98.1, 88, 12, 106 per 71, GENERAL APPEARANCE: Comfortable HEENT: Normal external appearance of nose and ear. Oral cavity normal EYES: Pupils equal. Conjunctiva normal. NECK: JVD not raised. Mass not palpable. RESPIRATORY: Respiratory effort normal. Lungs clear to auscultation. CARDIOVASCULAR: First and second sounds normal. No edema. ABDOMEN: Soft. Liver and spleen not palpable. No tenderness. No mass palpable. PSYCHIATRY: Answering simple questions. Forgetful. INVESTIGATIONS, reviewed in the clinical context: Urine culture:Staphylococcus lugdunensis August 14: Sodium 142 potassium 4.1 BUN 9.1 creatinine 0.9 July 30, 2024: Urine culture positive for Staphylococcuslugdunenisis, Klebsiella pneumoniae Past Medical History Past Medical History: Atrial Fibrillation, CVA/TIA, Diabetes Mellitus, Hypertension, Memory Impairment Additional Past Medical History / Comment(s): UTI, falls History of Any Multi-Drug Resistant Organisms: VRE Date of last positivie culture/infection: 11/01/23 MDRO Source:: Urine Past Surgical History: Appendectomy Additional Past Surgical History / Comment(s): patient poor historian Past Anesthesia/Blood Transfusion Reactions: No Reported Reaction Past Psychological History: No Psychological Hx Reported Smoking Status: Never smoker Past Alcohol Use History: None Reported Past Drug Use History: None Reported Assessment: Generalized weakness and recurrent falls at home Acute urinary tract infection failed outpatient antibiotic therapy.-Cultures Staphylococcus lugdunensis Hyperglycemia with uncontrolled diabetes type 2 insulin-dependent Paroxysmal atrial fibrillation. On anticoagulation with Eliquis. Currently maintaining sinus rhythm. Essential hypertension Moderate memory impairment/dementia Hypothyroidism Plan: Disposition Home Plan - Discharge Summary Discharge Rx Participant: No New Discharge Prescriptions: New Levofloxacin [Levaquin] 500 mg PO Q48H #3 tab Continue Loratadine 10 mg PO HS Ferrous Sulfate [Iron (65 MG Elemental)] 325 mg PO DAILY Escitalopram [Lexapro] 20 mg PO DAILY Atorvastatin [Lipitor] 40 mg PO HS Diclofenac Sodium Gel [Voltaren 1% Gel] 1 applic TOPICAL QID PRN PRN Reason: Pain Loperamide HCl [Imodium A-D] 2 mg PO QID PRN PRN Reason: Diarrhea Ipratropium-Albuterol Nebulize [Duoneb 0.5 mg-3 mg/3 ml Soln] 3 ml INHALATION RT-QID #100 each Acetaminophen Tab [Tylenol] 650 mg PO Q6HR PRN tab PRN Reason: Mild Pain Or Fever > 100.5 Diltiazem Cd [Cardizem CD] 180 mg PO DAILY cap Spiriva Respimat 1.25mcg/Actuation Mist 1 puff INHALATION RT-DAILY PRN PRN Reason: Shortness Of Breath Losartan [Cozaar] 25 mg PO DAILY 30 Days #30 tab Pantoprazole [Protonix] 40 mg PO AC-BRKFST 30 Days #30 tab Insulin Detemir (Levemir) [Levemir] 16 unit SQ BID@0700,2100 each Nystatin 100,000 Unit/gm Powd [Mycostatin Powder] 1 applic TOPICAL BID each Acetaminophen [Tylenol 8 Hour] 1,300 mg PO BID Levothyroxine Sodium [Synthroid] 12.5 mcg PO AC-KT Montelukast [Singulair] 10 mg PO HS Apixaban [Eliquis] 5 mg PO BID Ipratropium-Albuterol Nebulize [Duoneb 0.5 mg-3 mg/3 ml Soln] 3 ml INHALATION RT-QID PRN PRN Reason: Shortness Of Breath Budesonide-Formot 160-4.5 Mcg [Symbicort 160-4.5 Mcg Inhaler] 2 puff INHALATION RT-BID #1 each Thiamine [Vitamin B-1] 100 mg PO DAILY tab Lacosamide [Vimpat] 100 mg PO HS #4 tab INSULIN ASPART (NovoLOG) [NovoLOG (formulary)] See Protocol SQ ACHS Discontinued Sulfamethox-Tmp 800-160Mg [Bactrim DS 800-160 mg] 1 tab PO Q12HR 5 Days #10 tab Phenazopyridine [Pyridium] 100 mg PO TID 2 Days #6 tab Discharge Medication List Acetaminophen [Tylenol 8 Hour] 1,300 mg PO BID 08/25/23 [History] Apixaban [Eliquis] 5 mg PO BID 08/25/23 [History] Atorvastatin [Lipitor] 40 mg PO HS 08/25/23 [History] Diclofenac Sodium Gel [Voltaren 1% Gel] 1 applic TOPICAL QID PRN 08/25/23 [History] Escitalopram [Lexapro] 20 mg PO DAILY 08/25/23 [History] Ferrous Sulfate [Iron (65 MG Elemental)] 325 mg PO DAILY 08/25/23 [History] Ipratropium-Albuterol Nebulize [Duoneb 0.5 mg-3 mg/3 ml Soln] 3 ml INHALATION RT-QID PRN 08/25/23 [History] Levothyroxine Sodium [Synthroid] 12.5 mcg PO AC-BRKFST 08/25/23 [History] Loperamide HCl [Imodium A-D] 2 mg PO QID PRN 08/25/23 [History] Loratadine 10 mg PO HS 08/25/23 [History] Montelukast [Singulair] 10 mg PO HS 08/25/23 [History] Budesonide-Formot 160-4.5 Mcg [Symbicort 160-4.5 Mcg Inhaler] 2 puff INHALATION RT-BID #1 each 10/28/23 [Rx] Acetaminophen Tab [Tylenol] 650 mg PO Q6HR PRN tab 11/04/23 [Rx] Ipratropium-Albuterol Nebulize [Duoneb 0.5 mg-3 mg/3 ml Soln] 3 ml INHALATION RT-QID #100 each 11/04/23 [Rx] Diltiazem Cd [Cardizem CD] 180 mg PO DAILY cap 12/09/23 [Rx] Thiamine [Vitamin B-1] 100 mg PO DAILY tab 12/09/23 [Rx] Spiriva Respimat 1.25mcg/Actuation Mist 1 puff INHALATION RT-DAILY PRN 05/10/24 [History] Losartan [Cozaar] 25 mg PO DAILY 30 Days #30 tab 05/14/24 [Rx] Pantoprazole [Protonix] 40 mg PO AC-BRKFST 30 Days #30 tab 05/14/24 [Rx] Insulin Detemir (Levemir) [Levemir] 16 unit SQ BID@0700,2100 each 06/21/24 [Rx] Lacosamide [Vimpat] 100 mg PO HS #4 tab 06/21/24 [Rx] Nystatin 100,000 Unit/gm Powd [Mycostatin Powder] 1 applic TOPICAL BID each 06/21/24 [Rx] INSULIN ASPART (NovoLOG) [NovoLOG (formulary)] See Protocol SQ ACHS 07/30/24 [History] Levofloxacin [Levaquin] 500 mg PO Q48H #3 tab 08/16/24 [Rx] Follow up Appointment(s)/Referral(s): Home Health,[facility] [NON-STAFF] - As Needed [facility] [REFERRING] - 1 Week Discharge Disposition: HOME WITH HOME HEALTH SERVICES
== END 2024-08-16 13:03 | disposition home health service (06) ==
LOC: EC 11:57 → 4SSUR 15:20
PROVIDERS: ADMIT Hospitalist; ATTEND Hospitalist
DX: R53.1 Weakness (principal); N39.0 Urinary tract infection, site not specified; B95.7 Other staphylococcus as the cause of diseases classified elsewhere; R29.6 Repeated falls; E11.65 Type 2 diabetes mellitus with hyperglycemia; E03.9 Hypothyroidism, unspecified; F03.B0 Unspecified dementia, moderate, without behavioral disturbance, psychotic disturbance, mood disturbance, and anxiety; I10 Essential (primary) hypertension; I48.0 Paroxysmal atrial fibrillation; Z79.01 Long term (current) use of anticoagulants; Z79.4 Long term (current) use of insulin; Z79.51 Long term (current) use of inhaled steroids; Z79.890 Hormone replacement therapy; Z79.899 Other long term (current) drug therapy; Z86.73 Personal history of transient ischemic attack (TIA), and cerebral infarction without residual deficits; Z87.891 Personal history of nicotine dependence; Z88.0 Allergy status to penicillin; Z88.1 Allergy status to other antibiotic agents
CPT/HCPCS: 96361 ×2; 96366 ×2; 96365; 99285; 36415; 94640 ×9; 94760; 93005; 97116; 97530; 97162; 97166; 80053 ×2; 80048; 83605; 83735; 84484; 85025 ×2; 85610; 85730; 81001; 87040; 87086; 87077; 87186; 83036; 71046; 70450; G0378 ×5; J1956 ×2

== ENCOUNTER 2024-09-11 11:58 | Emergency (ER) | payer MEDICARE, OTHER ==
--- NOTE | 2024-09-11 12:48 | ED ---
General Adult HPI - General Stated complaint: Weakness Time Seen by Provider: 09/11/24 12:05 Source: patient Limitations: no limitations - History of Present Illness Initial comments: This patient is an 84-year-old woman who arrives to have evaluation for not feeling like getting out of bed today. The patient states that she lives at home with her daughter. She has a visiting aide who comes in. The aide attempted to get her out of bed but she states she just wanted to stay in bed and sleep longer. The patient denies feeling strokelike symptoms. No focal weakness. She does feel a little weak and tired. She has not noted fever or chills. No chest pain, dyspnea, diaphoresis. She has not had any GI symptoms. No nausea vomiting or diarrhea. She has not noted change in urination -: hour(s) Severity scale (1-10): 0 Improves with: none Worsens with: none Associated Symptoms: weakness Treatments Prior to Arrival: none - Related Data Home Medications Medication Instructions Recorded Confirmed Acetaminophen [Tylenol 8 Hour] 1,300 mg PO BID 08/25/23 09/11/24 Apixaban [Eliquis] 5 mg PO BID 08/25/23 09/11/24 Atorvastatin [Lipitor] 40 mg PO HS 08/25/23 09/11/24 Diclofenac Sodium Gel [Voltaren 1% 1 applic TOPICAL QID PRN 08/25/23 09/11/24 Gel] Escitalopram [Lexapro] 20 mg PO DAILY 08/25/23 09/11/24 Ferrous Sulfate [Iron (65 MG 325 mg PO DAILY 08/25/23 09/11/24 Elemental)] Ipratropium-Albuterol Nebulize 3 ml INHALATION RT-QID PRN 08/25/23 09/11/24 [Duoneb 0.5 mg-3 mg/3 ml Soln] Levothyroxine Sodium [Synthroid] 12.5 mcg PO AC-BRKFST 08/25/23 09/11/24 Loperamide HCl [Imodium A-D] 2 mg PO QID PRN 08/25/23 09/11/24 Loratadine 10 mg PO HS 08/25/23 09/11/24 Montelukast [Singulair] 10 mg PO HS 08/25/23 09/11/24 Spiriva Respimat 1.25mcg/Actuation 1 puff INHALATION RT-DAILY PRN 05/10/24 09/11/24 Mist INSULIN ASPART (NovoLOG) [NovoLOG See Protocol SQ ACHS 07/30/24 09/11/24 (formulary)] Nystatin 100,000Unit/gm Cream 1 applic TOPICAL BID 09/11/24 09/11/24 [Mycostatin Cream] polyethylene glycoL 3350 [Miralax] 17 gm PO DAILY PRN 09/11/24 09/11/24 Previous Rx's Medication Instructions Recorded Budesonide-Formot 160-4.5 Mcg 2 puff INHALATION RT-BID #1 each 10/28/23 [Symbicort 160-4.5 Mcg Inhaler] Acetaminophen Tab [Tylenol] 650 mg PO Q6HR PRN tab 11/04/23 Ipratropium-Albuterol Nebulize 3 ml INHALATION RT-QID #100 each 11/04/23 [Duoneb 0.5 mg-3 mg/3 ml Soln] Diltiazem Cd [Cardizem CD] 180 mg PO DAILY cap 12/09/23 Thiamine [Vitamin B-1] 100 mg PO DAILY tab 12/09/23 Losartan [Cozaar] 25 mg PO DAILY 30 Days #30 tab 05/14/24 Pantoprazole [Protonix] 40 mg PO AC-BRKFST 30 Days #30 tab 05/14/24 Lacosamide [Vimpat] 100 mg PO HS #4 tab 06/21/24 Nystatin 100,000 Unit/gm Powd 1 applic TOPICAL BID each 06/21/24 [Mycostatin Powder] Sulfamethox-Tmp 800-160Mg [Bactrim 1 each PO Q12HR #6 tab 09/11/24 Ds] Allergies Allergy/AdvReac Type Severity Reaction Status Date / Time Penicillins Allergy Rash/Hives Verified 09/11/24 13:54 cefepime AdvReac Confusion Verified 09/11/24 13:54 Review of Systems ROS Statement: Those systems with pertinent positive or pertinent negative responses have been documented in the HPI. ROS Other: All systems not noted in ROS Statement are negative. Constitutional: Reports: weakness. Denies: fever, chills Respiratory: Denies: cough, dyspnea, wheezes Cardiovascular: Denies: chest pain, palpitations, edema Gastrointestinal: Denies: abdominal pain, nausea, vomiting, diarrhea Genitourinary: Denies: dysuria, hematuria Musculoskeletal: Denies: back pain Skin: Denies: rash Neurological: Denies: headache, weakness, confusion Past Medical History Past Medical History: Atrial Fibrillation, CVA/TIA, Diabetes Mellitus, Hypertension, Memory Impairment Additional Past Medical History / Comment(s): UTI, falls History of Any Multi-Drug Resistant Organisms: VRE Date of last positivie culture/infection: 11/01/23 MDRO Source:: Urine Past Surgical History: Appendectomy Additional Past Surgical History / Comment(s): patient poor historian Past Anesthesia/Blood Transfusion Reactions: No Reported Reaction Past Psychological History: No Psychological Hx Reported Smoking Status: Never smoker Past Alcohol Use History: None Reported Past Drug Use History: None Reported - Past Family History Father History Unknown: Yes General Exam General appearance: alert, in no apparent distress Head exam: Present: atraumatic, normocephalic Eye exam: Present: normal appearance. Absent: scleral icterus, conjunctival injection ENT exam: Present: mucous membranes dry Neck exam: Present: normal inspection Respiratory exam: Present: wheezes (Trace expiratory wheeze). Absent: respiratory distress, rales, rhonchi, stridor, accessory muscle use Cardiovascular Exam: Present: regular rate, normal rhythm, normal heart sounds. Absent: systolic murmur, diastolic murmur, rubs, gallop GI/Abdominal exam: Present: soft. Absent: distended, tenderness, guarding, rebound, rigid, mass Extremities exam: Present: normal inspection, normal capillary refill. Absent: pedal edema, calf tenderness Back exam: Present: normal inspection Neurological exam: Present: alert, oriented X3, CN II-XII intact. Absent: motor sensory deficit Skin exam: Present: warm, dry, intact, normal color. Absent: rash Course Vital Signs 09/11/24 09/11/24 09/11/24 12:06 15:18 16:59 Temperature 98.1 F 98.1 F Pulse Rate 85 86 87 Respiratory 14 18 18 Rate Blood Pressure 160/93 168/95 148/97 O2 Sat by Pulse 96 95 96 Oximetry EKG Findings - EKG Results: EKG: interpreted by ERMD, sinus rhythm (With sinus arrhythmia, rate 87 bpm), normal axis, normal QRS, normal ST/T, no acute changes Medical Decision Making - Medical Decision Making The patient had chest x-ray that I interpreted as negative for acute infiltrate, pneumothorax, congestive heart failure - Lab Data Result diagrams: 09/11/24 12:54 09/11/24 12:54 Lab Results 09/11/24 09/11/24 09/11/24 Range/Units 12:54 12:54 12:54 WBC 5.7 (3.8-10.6) k/uL RBC 4.46 (3.80-5.40) m/uL Hgb 12.8 (11.4-16.0) gm/dL Hct 39.4 (34.0-46.0) % MCV 88.3 (80.0-100.0) fL MCH 28.6 (25.0-35.0) pg MCHC 32.4 (31.0-37.0) g/dL RDW 13.8 (11.5-15.5) % Plt Count 167 (150-450) k/uL MPV 8.5 Neutrophils % 70 % Lymphocytes % 21 % Monocytes % 4 % Eosinophils % 3 % Basophils % 1 % Neutrophils # 4.0 (1.3-7.7) k/uL Lymphocytes # 1.2 (1.0-4.8) k/uL Monocytes # 0.2 (0-1.0) k/uL Eosinophils # 0.2 (0-0.7) k/uL Basophils # 0.0 (0-0.2) k/uL PT 10.9 (10.0-12.5) sec INR 1.0 (<1.2) APTT 24.1 (22.0-30.0) sec Sodium (137-145) mmol/L Potassium (3.5-5.1) mmol/L Chloride (98-107) mmol/L Carbon Dioxide (22-30) mmol/L Anion Gap mmol/L BUN (7-17) mg/dL Creatinine (0.52-1.04) mg/dL Est GFR (CKD-EPI)AfAm (>60 ml/min/1.73 sqM) Est GFR (CKD-EPI)NonAf (>60 ml/min/1.73 sqM) Glucose (74-99) mg/dL Plasma Lactic Acid [place] (0.7-2.0) mmol/L Calcium (8.4-10.2) mg/dL Total Bilirubin (0.2-1.3) mg/dL AST (14-36) U/L ALT (4-34) U/L Alkaline Phosphatase (38-126) U/L Troponin I (0.000-0.034) ng/mL Total Protein (6.3-8.2) g/dL Albumin (3.5-5.0) g/dL TSH (0.465-4.680) mIU/L Urine Color Colorless Urine Appearance Clear (Clear) Urine pH 7.5 (5.0-8.0) Ur Specific [place] 1.013 (1.001-1.035) Urine Protein Negative (Negative) Urine Glucose (UA) Negative (Negative) Urine Ketones Negative (Negative) Urine Blood Negative (Negative) Urine Nitrite Negative (Negative) Urine Bilirubin Negative (Negative) Urine Urobilinogen <2.0 (<2.0) mg/dL Ur Leukocyte Esterase Moderate H (Negative) Urine RBC 3 (0-5) /hpf Urine WBC 24 H (0-5) /hpf Ur Squamous Epith Cells 2 (0-4) /hpf Urine Mucus Rare H (None) /hpf 09/11/24 09/11/24 09/11/24 Range/Units 12:54 12:54 12:54 WBC (3.8-10.6) k/uL RBC (3.80-5.40) m/uL Hgb (11.4-16.0) gm/dL Hct (34.0-46.0) % MCV (80.0-100.0) fL MCH (25.0-35.0) pg MCHC (31.0-37.0) g/dL RDW (11.5-15.5) % Plt Count (150-450) k/uL MPV Neutrophils % % Lymphocytes % % Monocytes % % Eosinophils % % Basophils % % Neutrophils # (1.3-7.7) k/uL Lymphocytes # (1.0-4.8) k/uL Monocytes # (0-1.0) k/uL Eosinophils # (0-0.7) k/uL Basophils # (0-0.2) k/uL PT (10.0-12.5) sec INR (<1.2) APTT (22.0-30.0) sec Sodium 140 (137-145) mmol/L Potassium 3.3 L (3.5-5.1) mmol/L Chloride 114 H (98-107) mmol/L Carbon Dioxide 21 L (22-30) mmol/L Anion Gap 5 mmol/L BUN 10 (7-17) mg/dL Creatinine 0.57 (0.52-1.04) mg/dL Est GFR (CKD-EPI)AfAm >90 (>60 ml/min/1.73 sqM) Est GFR (CKD-EPI)NonAf 86 (>60 ml/min/1.73 sqM) Glucose 151 H (74-99) mg/dL Plasma Lactic Acid [place] 1.8 (0.7-2.0) mmol/L Calcium 7.0 L (8.4-10.2) mg/dL Total Bilirubin 0.9 (0.2-1.3) mg/dL AST 14 (14-36) U/L ALT 9 (4-34) U/L Alkaline Phosphatase 73 (38-126) U/L Troponin I <0.012 (0.000-0.034) ng/mL Total Protein 5.1 L (6.3-8.2) g/dL Albumin 2.8 L (3.5-5.0) g/dL TSH 1.690 (0.465-4.680) mIU/L Urine Color Urine Appearance (Clear) Urine pH (5.0-8.0) Ur Specific [place] (1.001-1.035) Urine Protein (Negative) Urine Glucose (UA) (Negative) Urine Ketones (Negative) Urine Blood (Negative) Urine Nitrite (Negative) Urine Bilirubin (Negative) Urine Urobilinogen (<2.0) mg/dL Ur Leukocyte Esterase (Negative) Urine RBC (0-5) /hpf Urine WBC (0-5) /hpf Ur Squamous Epith Cells (0-4) /hpf Urine Mucus (None) /hpf Disposition Clinical Impression: UTI (urinary tract infection), Dehydration Disposition: HOME SELF-CARE Condition: Good Instructions (If sedation given, give patient instructions): Urinary Tract Infection in Women (ED), Dehydration (ED) Prescriptions: Sulfamethox-Tmp 800-160Mg [Bactrim Ds] 1 each PO Q12HR #6 tab Is patient prescribed a controlled substance at d/c from ED?: No Referrals: Sarthak Cerda DO [Primary Care Provider] - 1-2 days
[2024-09-11 13:17] LABS: Basophils % (A) 1 %; Eosinophils # (A) 0.2 k/uL (0-0.7); Eosinophils % (A) 3 %; HCT 39.4 % (34.0-46.0); HGB 12.8 gm/dL (11.4-16.0); Lymphocytes # (A) 1.2 k/uL (1.0-4.8); Lymphocytes % (A) 21 %; MCH 28.6 pg (25.0-35.0); MCHC 32.4 g/dL (31.0-37.0); MCV 88.3 fL (80.0-100.0); Mean Platelet Volume 8.5; Monocytes # (A) 0.2 k/uL (0-1.0); Monocytes % (A) 4 %; Neutrophils % (A) 70 %; Platelet Count 167 k/uL (150-450); RBC 4.46 m/uL (3.80-5.40); RDW 13.8 % (11.5-15.5); WBC 5.7 k/uL (3.8-10.6)
[2024-09-11 13:30] LABS: ALT 9 U/L (4-34); AST 14 U/L (14-36); African American GFR (CKD) >90 (>60 ml/min/1.73 sqM); Albumin 2.8 g/dL (3.5-5.0); Alkaline Phosphatase 73 U/L (38-126); Anion Gap 5 mmol/L; Blood Urea Nitrogen 10 mg/dL (7-17); Carbon Dioxide 21 mmol/L (22-30); Chloride 114 mmol/L (98-107); Glucose 151 mg/dL (74-99); Non-African American GFR(CKD) 86 (>60 ml/min/1.73 sqM); Potassium 3.3 mmol/L (3.5-5.1); Sodium 140 mmol/L (137-145); Total Bilirubin 0.9 mg/dL (0.2-1.3); Total Protein 5.1 g/dL (6.3-8.2)
[2024-09-11 13:37] LABS: Partial Thromboplastin Time 24.1 sec (22.0-30.0); Prothrombin Time 10.9 sec (10.0-12.5)
--- NOTE | 2024-09-11 13:38 | XR ---
EXAMINATION TYPE: XR chest 2V DATE OF EXAM: 09/11/2024 1:33 PM COMPARISON: Chest radiographs from 08/12/2024 TECHNIQUE: XR chest 2V Frontal and lateral views of the chest. CLINICAL INDICATION:Female, 84 years old with history of Weakness; FINDINGS: Patient is rotated which limits evaluation. Lungs/Pleura: There is no evidence of pleural effusion, focal consolidation, or pneumothorax. Pulmonary vascularity: Unremarkable. Heart/mediastinum: Cardiomediastinal silhouette is unremarkable. Atherosclerotic calcifications are seen in the aorta. Musculoskeletal: No acute osseous pathology. Stable anterior wedging of the midthoracic spine. Orthop edic anchors within the left humeral head. Bilateral shoulder arthropathy. High riding right humeral head suggesting full-thickness rotator cuff tear. Widening of the right AC joint redemonstrated. IMPRESSION: Chronic changes without acute pulmonary process. No significant change from prior. [facility], , 09/11/2024 1:35 PM
[2024-09-11] MEDS: POTASSIUM CHLORIDE ER 20 MEQ TAB.ER PO STA (15:34)
[2024-09-11] MEDS: SODIUM CHLORIDE 0.9% 500 ML 500 ML IV STA (15:35)
[2024-09-11 15:40] LABS: Appearance,Urine Clear (Clear); Bilirubin,Urine Negative (Negative); Blood,Urine Negative (Negative); Color,Urine Colorless; Glucose,Urine (UA) Negative (Negative); Ketones,Urine Negative (Negative); Leukocyte Esterase,Urine Moderate (Negative); Mucus,Urine Rare /hpf; Nitrite,Urine Negative (Negative); PH, Urine 7.5 (5.0-8.0); Protein,Urine Negative (Negative); RBC,Urine 3 /hpf (0-5); Specific Gravity,Urine 1.013 (1.001-1.035); Squamous Epithelial Cell,Urine 2 /hpf (0-4); Urobilinogen,Urine <2.0 mg/dL (<2.0); WBC,Urine 24 /hpf (0-5)
[2024-09-11] MEDS: SULFAMETHOX-TMP 800-160MG 1 EACH TAB PO STA (19:20)
[2024-09-11] MEDS: METOPROLOL TARTRATE 25 MG TAB PO STA (19:54)
[2024-09-11 19:58] VITALS: BP 178/97; PULSE 95; RESP 20; TEMP 97.7
== END 2024-09-11 19:50 | disposition home or self-care (01) ==
LOC: EC 11:58
DX: E86.0 Dehydration (principal); N39.0 Urinary tract infection, site not specified; Z86.73 Personal history of transient ischemic attack (TIA), and cerebral infarction without residual deficits; Z88.0 Allergy status to penicillin; Z88.1 Allergy status to other antibiotic agents
CPT/HCPCS: 36415; 71046; 80053; 81001; 83605; 84443; 84484; 85025; 85610; 85730; 93005; 96360; 96361; 99285

== ENCOUNTER 2024-09-27 15:30 | Emergency (ER) | payer MEDICARE ==
--- NOTE | 2024-09-27 15:37 | ED ---
Abdominal Pain HPI - General Stated Complaint: Abd pain Time Seen by Provider: 09/27/24 15:33 Source: RN notes reviewed, old records reviewed Mode of arrival: ambulatory Limitations: no limitations - History of Present Illness Initial Comments: This is an 84-year-old female with history of constipation coming in with diminished bowel movements and severe abdominal pain. History of same. Patient is having severe abdominal pain and concern that she was found up unable to pass her bowel movements currently. Patient has been getting Imodium from failure member and is increasing her abdominal pain MD Complaint: abdominal pain -: days(s) Location: diffuse Radiation: epigastric, suprapubic Migration to: epigastric, suprapubic Severity: severe Severity scale (1-10): 8 Quality: aching Consistency: constant Improves With: nothing Worsens With: nothing Associated Symptoms: nausea Treatments Prior to Arrival: other (0) - Related Data Home Medications Medication Instructions Recorded Confirmed Acetaminophen [Tylenol 8 Hour] 1,300 mg PO BID 08/25/23 09/11/24 Apixaban [Eliquis] 5 mg PO BID 08/25/23 09/11/24 Atorvastatin [Lipitor] 40 mg PO HS 08/25/23 09/11/24 Diclofenac Sodium Gel [Voltaren 1% 1 applic TOPICAL QID PRN 08/25/23 09/11/24 Gel] Escitalopram [Lexapro] 20 mg PO DAILY 08/25/23 09/11/24 Ferrous Sulfate [Iron (65 MG 325 mg PO DAILY 08/25/23 09/11/24 Elemental)] Ipratropium-Albuterol Nebulize 3 ml INHALATION RT-QID PRN 08/25/23 09/11/24 [Duoneb 0.5 mg-3 mg/3 ml Soln] Levothyroxine Sodium [Synthroid] 12.5 mcg PO AC-BRKFST 08/25/23 09/11/24 Loperamide HCl [Imodium A-D] 2 mg PO QID PRN 08/25/23 09/11/24 Loratadine 10 mg PO HS 08/25/23 09/11/24 Montelukast [Singulair] 10 mg PO HS 08/25/23 09/11/24 Spiriva Respimat 1.25mcg/Actuation 1 puff INHALATION RT-DAILY PRN 05/10/24 09/11/24 Mist INSULIN ASPART (NovoLOG) [NovoLOG See Protocol SQ ACHS 07/30/24 09/11/24 (formulary)] Nystatin 100,000Unit/gm Cream 1 applic TOPICAL BID 09/11/24 09/11/24 [Mycostatin Cream] polyethylene glycoL 3350 [Miralax] 17 gm PO DAILY PRN 09/11/24 09/11/24 Previous Rx's Medication Instructions Recorded Budesonide-Formot 160-4.5 Mcg 2 puff INHALATION RT-BID #1 each 10/28/23 [Symbicort 160-4.5 Mcg Inhaler] Acetaminophen Tab [Tylenol] 650 mg PO Q6HR PRN tab 11/04/23 Ipratropium-Albuterol Nebulize 3 ml INHALATION RT-QID #100 each 11/04/23 [Duoneb 0.5 mg-3 mg/3 ml Soln] Diltiazem Cd [Cardizem CD] 180 mg PO DAILY cap 12/09/23 Thiamine [Vitamin B-1] 100 mg PO DAILY tab 12/09/23 Losartan [Cozaar] 25 mg PO DAILY 30 Days #30 tab 05/14/24 Pantoprazole [Protonix] 40 mg PO AC-BRKFST 30 Days #30 tab 05/14/24 Lacosamide [Vimpat] 100 mg PO HS #4 tab 06/21/24 Nystatin 100,000 Unit/gm Powd 1 applic TOPICAL BID each 06/21/24 [Mycostatin Powder] Sulfamethox-Tmp 800-160Mg [Bactrim 1 each PO Q12HR #6 tab 09/11/24 Ds] Allergies Allergy/AdvReac Type Severity Reaction Status Date / Time Penicillins Allergy Rash/Hives Verified 09/27/24 16:49 cefepime AdvReac Confusion Verified 09/27/24 16:49 Review of Systems ROS Statement: Those systems with pertinent positive or pertinent negative responses have been documented in the HPI. ROS Other: All systems not noted in ROS Statement are negative. Past Medical History Past Medical History: Atrial Fibrillation, CVA/TIA, Diabetes Mellitus, Hypertension, Memory Impairment Additional Past Medical History / Comment(s): UTI, falls History of Any Multi-Drug Resistant Organisms: VRE Date of last positivie culture/infection: 1/16/24 MDRO Source:: Urine Past Surgical History: Appendectomy Additional Past Surgical History / Comment(s): patient poor historian Past Anesthesia/Blood Transfusion Reactions: No Reported Reaction Past Psychological History: No Psychological Hx Reported Smoking Status: Never smoker Past Alcohol Use History: None Reported Past Drug Use History: None Reported - Past Family History Father History Unknown: Yes General Exam General appearance: alert, in no apparent distress Head exam: Present: atraumatic, normocephalic, normal inspection Eye exam: Present: normal appearance, PERRL, EOMI. Absent: scleral icterus, conjunctival injection, periorbital swelling ENT exam: Present: normal exam, mucous membranes moist Neck exam: Present: normal inspection. Absent: tenderness, meningismus, lymphadenopathy Respiratory exam: Present: normal lung sounds bilaterally. Absent: respiratory distress, wheezes, rales, rhonchi, stridor Cardiovascular Exam: Present: regular rate, normal rhythm, normal heart sounds. Absent: systolic murmur, diastolic murmur, rubs, gallop, clicks GI/Abdominal exam: Present: soft, normal bowel sounds. Absent: distended, tenderness, guarding, rebound, rigid Extremities exam: Present: normal inspection, full ROM, normal capillary refill. Absent: tenderness, pedal edema, joint swelling, calf tenderness Back exam: Present: normal inspection Neurological exam: Present: alert, oriented X3, CN II-XII intact Psychiatric exam: Present: normal affect, normal mood Skin exam: Present: warm, dry, intact, normal color. Absent: rash Course Vital Signs 09/27/24 09/27/24 15:33 16:49 Temperature 97.8 F Pulse Rate 90 76 Respiratory 19 18 Rate Blood Pressure 128/84 107/73 O2 Sat by Pulse 95 97 Oximetry - Reevaluation(s) Reevaluation #1: 09/27/24 16:51 Medical records reviewed Reevaluation #2: 09/27/24 16:51 Patient symptoms unchanged Reevaluation #3: 09/27/24 16:51 Patient informed of results and questions answered Reevaluation #4: Was pt. sent in by a medical professional or institution (, PA, [employer], urgent care, hospital, or long term...) When possible be specific @ -no Did you speak to anyone other than the patient for history (EMS, parent, family, police, friend...)? What history was obtained from this source @ -no Did you review nursing and triage notes (agree or disagree)? Why? @ -agree Are old charts reviewed (outside hosp., previous admission, EMS record, old EKG, old radiological studies, urgent care reports/EKG's, long term records)? Report findings @ -yes Differential Diagnosis (chest pain, altered mental status, abdominal pain women, abdominal pain men, vaginal bleeding, weakness, fever, dyspnea, syncope, headache, dizziness, GI bleed, back pain, seizure, CVA, palpatations, mental health, musculoskeletal)? @ -prior EKG interpreted by me (3pts min.). @ -yes X-rays interpreted by me (1pt min.). @ -yes negative for acute disease CT interpreted by me (1pt min.). @ -no U/S interpreted by me (1pt. min.). @ -no What testing was considered but not performed or refused? (CT, X-rays, U/S, labs)? Why? @ -none What meds were considered but not given or refused? Why? @ -none Did you discuss the management of the patient with other professionals (professionals i.e. , PA, [employer], lab, RT, psych nurse, social human services assistants, certified travel counselor, teacher, associate loan officer, window caser)? Give summary @ -no Was smoking cessation discussed for >3mins.? @ -no Was critical care preformed (if so, how long)? @ -no Were there social determinants of health that impacted care today? How? (Homelessness, low income, unemployed, alcoholism, drug addiction, transportation, low edu. Level, literacy, decrease access to med. care, long term, rehab)? @ -none Was there de-escalation of care discussed even if they declined (Discuss DNR or withdrawal of care, Hospice)? DNR status @ -no What co-morbidities impacted this encounter? (DM, HTN, Smoking, COPD, CAD, Cancer, CVA, ARF, Chemo, Hep., AIDS, mental health diagnosis, sleep apnea, morbid obesity)? @ -none Was patient admitted / discharged? Hospital course, mention meds given and route, prescriptions, significant lab abnormalities, going to OR and other pertinent info. @ - Undiagnosed new problem with uncertain prognosis? @ -no Drug Therapy requiring intensive monitoring for toxicity (Heparin, Nitro, Insulin, Cardizem)? @ -no Were any procedures done? @ -no Diagnosis/symptom? @ - Acute, or Chronic, or Acute on Chronic? @ -Acute Uncomplicated (without systemic symptoms) or Complicated (systemic symptoms)? @ -Complicated Side effects of treatment? @ -no Exacerbation, Progression, or Severe Exacerbation? @ -exacerbation Poses a threat to life or bodily function? How? (Chest pain, [place], [place], pneumonia, PE, COPD, DKA, ARF, appy, cholecystitis, CVA, Diverticulitis, Homicidal, Suicidal, threat to staff... and all critical care pts) @ -yes Reevaluation #5: Differential Abdominal Pain Women: Appendicitis, Cholecystitis, diverticulosis, ischemic bowel, pancreatitis, hepatitis, UTI, gastroenteritis, AAA, incarcerated hernia, bowel obstruction, constipation, inflammatory bowel, hepatitis, peptic ulcer disease, splenic infarction, perforated viscus, vulvitis, ovarian torsion, PID, kidney stone, placenta abruption, this is not meant to be an all-inclusive list Medical Decision Making - Medical Decision Making 84 female with significant bowel movement here in the ER patient h significant bowel movement here in the ER and pain resolved. Patient can be discharged - Lab Data Result diagrams: 09/27/24 16:06 09/27/24 16:06 Lab Results 09/27/24 09/27/24 Range/Units 16:06 16:06 WBC 10.4 (3.8-10.6) k/uL RBC 4.48 (3.80-5.40) m/uL Hgb 12.9 (11.4-16.0) gm/dL Hct 39.9 (34.0-46.0) % MCV 89.0 (80.0-100.0) fL MCH 28.8 (25.0-35.0) pg MCHC 32.4 (31.0-37.0) g/dL RDW 13.7 (11.5-15.5) % Plt Count 186 (150-450) k/uL MPV 8.9 Neutrophils % 76 % Lymphocytes % 17 % Monocytes % 5 % Eosinophils % 1 % Basophils % 1 % Neutrophils # 7.9 H (1.3-7.7) k/uL Lymphocytes # 1.7 (1.0-4.8) k/uL Monocytes # 0.5 (0-1.0) k/uL Eosinophils # 0.1 (0-0.7) k/uL Basophils # 0.1 (0-0.2) k/uL Sodium 135 L (137-145) mmol/L Potassium 4.3 (3.5-5.1) mmol/L Chloride 106 (98-107) mmol/L Carbon Dioxide 21 L (22-30) mmol/L Anion Gap 8 mmol/L BUN 18 H (7-17) mg/dL Creatinine 0.91 (0.52-1.04) mg/dL Est GFR (CKD-EPI)AfAm 67 (>60 ml/min/1.73 sqM) Est GFR (CKD-EPI)NonAf 58 (>60 ml/min/1.73 sqM) Glucose 266 H (74-99) mg/dL Calcium 9.0 (8.4-10.2) mg/dL Phosphorus 4.2 (2.5-4.5) mg/dL Magnesium 1.7 (1.6-2.3) mg/dL Total Bilirubin 0.8 (0.2-1.3) mg/dL AST 17 (14-36) U/L ALT 10 (4-34) U/L Alkaline Phosphatase 90 (38-126) U/L Total Protein 6.3 (6.3-8.2) g/dL Albumin 3.8 (3.5-5.0) g/dL Amylase 80 (30-110) U/L Lipase 49 (23-300) U/L - Radiology Data Radiology results: report reviewed (CT abdomen pelvis negative for acute disease), image reviewed Disposition Clinical Impression: Constipation, Abdominal pain Disposition: HOME SELF-CARE Condition: Good Instructions (If sedation given, give patient instructions): Abdominal Pain (ED) Is patient prescribed a controlled substance at d/c from ED?: No Referrals: Nonstaff,Physician [Primary Care Provider] - 1-2 days
[2024-09-27 15:42] VITALS: TEMP 97.8
[2024-09-27 16:22] LABS: Basophils # (A) 0.1 k/uL (0-0.2); Basophils % (A) 1 %; Eosinophils # (A) 0.1 k/uL (0-0.7); Eosinophils % (A) 1 %; HCT 39.9 % (34.0-46.0); HGB 12.9 gm/dL (11.4-16.0); Lymphocytes # (A) 1.7 k/uL (1.0-4.8); Lymphocytes % (A) 17 %; MCH 28.8 pg (25.0-35.0); MCHC 32.4 g/dL (31.0-37.0); Mean Platelet Volume 8.9; Monocytes # (A) 0.5 k/uL (0-1.0); Monocytes % (A) 5 %; Neutrophils # (A) 7.9 k/uL (1.3-7.7); Neutrophils % (A) 76 %; Platelet Count 186 k/uL (150-450); RBC 4.48 m/uL (3.80-5.40); RDW 13.7 % (11.5-15.5); WBC 10.4 k/uL (3.8-10.6)
[2024-09-27] MEDS: SODIUM CHLORIDE 0.9% 1,000 ML IV STA (16:37)
[2024-09-27] MEDS: ONDANSETRON 4 MG/2 ML VIAL IVP STA (16:37)
[2024-09-27 16:40] LABS: ALT 10 U/L (4-34); AST 17 U/L (14-36); African American GFR (CKD) 67 (>60 ml/min/1.73 sqM); Albumin 3.8 g/dL (3.5-5.0); Alkaline Phosphatase 90 U/L (38-126); Amylase 80 U/L (30-110); Anion Gap 8 mmol/L; Blood Urea Nitrogen 18 mg/dL (7-17); Carbon Dioxide 21 mmol/L (22-30); Chloride 106 mmol/L (98-107); Glucose 266 mg/dL (74-99); Lipase 49 U/L (23-300); Magnesium 1.7 mg/dL (1.6-2.3); Non-African American GFR(CKD) 58 (>60 ml/min/1.73 sqM); Phosphorus 4.2 mg/dL (2.5-4.5); Potassium 4.3 mmol/L (3.5-5.1); Sodium 135 mmol/L (137-145); Total Bilirubin 0.8 mg/dL (0.2-1.3); Total Protein 6.3 g/dL (6.3-8.2)
[2024-09-27] MEDS: SENNOSIDES-DOCUSATE SODIUM 1 EACH TAB PO STA (16:47)
--- NOTE | 2024-09-27 17:01 | CT ---
EXAMINATION TYPE: CT abdomen pelvis wo con DATE OF EXAM: 09/27/2024 4:39 PM COMPARISON: None CLINICAL INDICATION: Female, 84 years old with history of abdominal pain; abdominal pain and constipa tion. TECHNIQUE: Axial CT abdomen pelvis wo con;Sagittal and coronal reformats were created on a separate workstation. Contrast used: mL of , (none if empty) Oral contrast used: without Oral Contrast (none if empty) CT DLP: 916.2 mGycm, Automated exposure control for dose reduction was used. FINDINGS: LOWER CHEST: Right basilar calcified granuloma. Streaky atelectasis in the lung bases. Lipomatous hyp ertrophy of interatrial septum. ABDOMEN LIVER: Unremarkable GALLBLADDER AND BILE DUCTS: Gallbladder is not visualized may be surgically absent. PANCREAS: Unremarkable. SPLEEN: Unremarkable. ADRENAL GLANDS: Unremarkable. KIDNEYS AND URETERS: No evidence of hydronephrosis or renal calculus. The ureters are unremarkable. PELVIS BLADDER: Mild haziness/fat stranding around the urinary bladder. REPRODUCTIVE: Unremarkable. ABDOMEN & PELVIS STOMACH AND BOWEL: No evidence of bowel obstruction. Small hiatal hernia. Scattered colonic diverticu la. Appendix appears normal. PERITONEUM/RETROPERITONEUM: No evidence of pneumoperitoneum or free fluid. VASCULATURE: No evidence of aortic aneurysm. MUSCULOSKELETAL: No acute osseous abnormalities. Moderate disc degeneration changes are present throu ghout the thoracolumbar spine. Grade 1 anterolisthesis of L4 and L5 with at least moderate spinal can al stenosis. LYMPH NODES: No gross evidence for lymphadenopathy. SOFT TISSUE/ABDOMINAL WALL: Unremarkable IMPRESSION: 1. Haziness around the urinary bladder correlate with urinalysis for cystitis., Otherwise No evidenc e for acute abdominal process. 2. Colonic diverticulosis. 3. Small hiatal hernia. [facility], , 09/27/2024 4:59 PM
[2024-09-27] MEDS: MAGNESIUM OXIDE 400 MG TAB PO STA ×2 (17:50)
[2024-09-27 17:56] VITALS: BP 126/70; PULSE 80; RESP 17
== END 2024-09-27 18:23 | disposition home or self-care (01) ==
LOC: EC 15:30
DX: K59.00 Constipation, unspecified (principal); Z88.0 Allergy status to penicillin; Z88.1 Allergy status to other antibiotic agents; Z86.73 Personal history of transient ischemic attack (TIA), and cerebral infarction without residual deficits
CPT/HCPCS: 36415; 80053; 82150; 83690; 83735; 84100; 85025; 74176; 99284; 96374; 96361; J2405

== ENCOUNTER 2024-10-07 21:02 | Observation (INO) | payer MEDICARE ==
--- NOTE | 2024-10-07 21:19 | ED ---
Weakness HPI - General Chief complaint: Weakness Stated complaint: Weakness Time Seen by Provider: 10/07/24 21:16 Source: patient, EMS, RN notes reviewed Mode of arrival: EMS - History of Present Illness Initial comments: This is a 84-year-old female with history of memory impairment, CVA/TIA, atrial fibrillation on Eliquis presenting to the emergency department via EMS for chief complaint of generalized weakness. Patient states that prior to arrival she was on the toilet attempting to have a bowel movement when the aide that was assisting her at home believe that she had a syncopal event. Patient denies passing out this time. Currently, she is denying chest pain, shortness of breath, heart palpitations, headache, dizziness, focal neurological deficits, abdominal pain. Endorses dysuria over the past few weeks. She denies chills, fevers, cough, rhinorrhea, congestion. Patient states that she uses a wheelchair at home however does not get up much. Additionally, she lives with her daughter and has aides coming to her house with a assist with daily activities. - Related Data Home Medications Medication Instructions Recorded Confirmed Apixaban [Eliquis] 5 mg PO BID 08/25/23 10/08/24 Atorvastatin [Lipitor] 40 mg PO HS 08/25/23 10/08/24 Escitalopram [Lexapro] 20 mg PO DAILY 08/25/23 10/08/24 Ferrous Sulfate [Iron (65 MG 325 mg PO HS 08/25/23 10/08/24 Elemental)] Levothyroxine Sodium [Synthroid] 12.5 mcg PO AC-BRKFST 08/25/23 10/08/24 Loperamide HCl [Imodium A-D] 2 mg PO QID PRN 08/25/23 10/08/24 Loratadine 10 mg PO HS 08/25/23 10/08/24 Montelukast [Singulair] 10 mg PO HS 08/25/23 10/08/24 Spiriva Respimat 1.25mcg/Actuation 1 puff INHALATION RT-DAILY 05/10/24 10/08/24 Mist Cholecalciferol [Vitamin D3 (25 50 mcg PO DAILY 10/08/24 10/08/24 Mcg = 1000 Iu)] Insulin Aspart [NovoLOG Flexpen] See Protocol SQ ACHS 10/08/24 10/08/24 Insulin Glargine,Hum.rec.anlog 16 units SQ HS 10/08/24 10/08/24 [Lantus Solostar Pen] Insulin Glargine,Hum.rec.anlog 24 units SQ DAILY 10/08/24 10/08/24 [Lantus Solostar Pen] Ipratropium-Albuterol Nebulize 3 ml INHALATION RT-QID PRN 10/08/24 10/08/24 [Duoneb 0.5 mg-3 mg/3 ml Soln] Rosuvastatin [Crestor] 20 mg PO DAILY 10/08/24 10/08/24 dilTIAZem HCL [Tiazac] 180 mg PO DAILY 10/08/24 10/08/24 Previous Rx's Medication Instructions Recorded Budesonide-Formot 160-4.5 Mcg 2 puff INHALATION RT-BID #1 each 10/28/23 [Symbicort 160-4.5 Mcg Inhaler] Thiamine [Vitamin B-1] 100 mg PO DAILY tab 12/09/23 Losartan [Cozaar] 25 mg PO DAILY 30 Days #30 tab 05/14/24 Pantoprazole [Protonix] 40 mg PO AC-BRKFST 30 Days #30 tab 05/14/24 Lacosamide [Vimpat] 100 mg PO HS #4 tab 06/21/24 Allergies Allergy/AdvReac Type Severity Reaction Status Date / Time Penicillins Allergy Rash/Hives Verified 10/08/24 09:22 cefepime AdvReac Confusion Verified 10/08/24 09:22 Review of Systems ROS Statement: Those systems with pertinent positive or pertinent negative responses have been documented in the HPI. ROS Other: All systems not noted in ROS Statement are negative. Past Medical History Past Medical History: Atrial Fibrillation, CVA/TIA, Diabetes Mellitus, Hypertension, Memory Impairment Additional Past Medical History / Comment(s): UTI, falls History of Any Multi-Drug Resistant Organisms: VRE Date of last positivie culture/infection: 11/01/23 MDRO Source:: Urine Past Surgical History: Appendectomy Additional Past Surgical History / Comment(s): patient poor historian Past Anesthesia/Blood Transfusion Reactions: No Reported Reaction Past Psychological History: No Psychological Hx Reported Smoking Status: Never smoker Past Alcohol Use History: None Reported Past Drug Use History: None Reported - Past Family History Father History Unknown: Yes General Exam General appearance: alert, in no apparent distress, obese Eye exam: Present: normal appearance, PERRL, EOMI. Absent: scleral icterus, conjunctival injection, periorbital swelling Respiratory exam: Present: normal lung sounds bilaterally. Absent: respiratory distress, wheezes, rales, rhonchi, stridor Cardiovascular Exam: Present: regular rate, normal rhythm, normal heart sounds. Absent: systolic murmur, diastolic murmur, rubs, gallop, clicks GI/Abdominal exam: Present: soft, normal bowel sounds. Absent: distended, tenderness, guarding, rebound, rigid Extremities exam: Present: normal inspection, full ROM, normal capillary refill. Absent: tenderness, pedal edema, joint swelling, calf tenderness Back exam: Present: normal inspection Neurological exam: Present: alert, oriented X3, CN II-XII intact Skin exam: Present: warm, dry, intact, normal color. Absent: rash Course Vital Signs 10/07/24 10/07/24 10/08/24 21:04 23:47 02:03 Temperature 97.1 F L 98.0 F Pulse Rate 65 60 63 Respiratory 16 18 16 Rate Blood Pressure 106/65 128/72 146/73 O2 Sat by Pulse 94 L 94 L 97 Oximetry Medical Decision Making - Medical Decision Making Was pt. sent in by a medical professional or institution ([facility] [place], DIESEL MECHANIC, urgent care, hospital, or halfway...) When possible be specific @ -No Did you speak to anyone other than the patient for history (EMS, parent, family, police, friend...)? What history was obtained from this source @ -No Did you review nursing and triage notes (agree or disagree)? Why? @ -I reviewed and agree with nursing and triage notes Were old charts reviewed (outside hosp., previous admission, EMS record, old EKG, old radiological studies, urgent care reports/EKG's, halfway records)? Report findings @ -Reviewed patient's 2 previous charts from early September and late August. Patient presented with weakness she was discharged with urinary tract infections or antibiotics. Differential Diagnosis (chest pain, altered mental status, abdominal pain women, abdominal pain men, vaginal bleeding, weakness, fever, dyspnea, syncope, headache, dizziness, GI bleed, back pain, seizure, CVA, palpatations, mental health, musculoskeletal)? @ -Differential Weakness: Hypoglycemia, shock, sepsis, hyponatremia, anemia, infection, CA, ETOH, adverse medicine reaction, overdose, stroke, this is not meant to be an all-inclusive list. EKG interpreted by me (3pts min.). @ -Completed at 2108 sinus bradycardia with a ventricular rate of 58, WA interval 161, QRS 92, QTc 427 X-rays interpreted by me (1pt min.). @ -None done CT interpreted by me (1pt min.). @ -None done U/S interpreted by me (1pt. min.). @ -None done What testing was considered but not performed or refused? (CT, X-rays, U/S, labs)? Why? @ -None What meds were considered but not given or refused? Why? @ -None Did you discuss the management of the patient with other professionals (professionals i.e. , PA, DIESEL MECHANIC, lab, RT, psych nurse, director of social work, automotive center manager, teacher, deck officer, casework manager)? Give summary @ -EM for admission, accepted. Was smoking cessation discussed for >3mins.? @ -No Was critical care preformed (if so, how long)? @ -No Were there social determinants of health that impacted care today? How? (Homelessness, low income, unemployed, alcoholism, drug addiction, transport ation, low edu. Level, literacy, decrease access to med. care, alf, rehab)? @ -No Was there de-escalation of care discussed even if they declined (Discuss DNR or withdrawal of care, Hospice)? DNR status @ -No What co-morbidities impacted this encounter? (DM, HTN, Smoking, COPD, CAD, Cancer, CVA, ARF, Chemo, Hep., AIDS, mental health diagnosis, sleep apnea, morbid obesity)? @ -None Was patient admitted / discharged? Hospital course, mention meds given and route, prescriptions, significant lab abnormalities, going to OR and other pertinent info. @ -Admitted. 84-year-old female presenting via EMS for weakness. NIH 0. There are no focal neurological deficits on examination. Patient will undergo weakness evaluation including EKG, chest x-ray, laboratory studies and urinalysis. Additionally, there are clinical signs of dehydration and therefore she is provided with a liter fluid bolus. Labs remarkable for mild LEON with decreased current GFR of 41 with an average of approximately 70, elevated creatinine of 1.21 with baseline of approximately 0.8. Patient elevated lactic acid at 3.5 likely secondary to dehydration. Troponin not elevated. Urinalysis remarkable for infection with WBC and leukocytes- urine sent for culture. Patient will be continued on maintenance fluids and started on IV antibiotics for UTI, admitted to internal medicine [facility]. discussed with. Dr. Saldana Undiagnosed new problem with uncertain prognosis? @ -No Drug Therapy requiring intensive monitoring for toxicity (Heparin, Nitro, Insulin, Cardizem)? @ -No Were any procedures done? @ -No Diagnosis/symptom? @ -LEON, dehydration, UTI Acute, or Chronic, or Acute on Chronic? @ -acute Uncomplicated (without systemic symptoms) or Complicated (systemic symptoms)? @ -uncomplicated Side effects of treatment? @ -No Exacerbation, Progression, or Severe Exacerbation? @ -No Poses a threat to life or bodily function? How? (Chest pain, USA, CA, pneumonia, PE, COPD, DKA, ARF, appy, cholecystitis, CVA, Diverticulitis, Homicidal, Suicidal, threat to staff... and all critical care pts) @ -No - Lab Data Result diagrams: 10/09/24 04:20 10/09/24 04:20 Lab Results 10/07/24 10/07/24 10/07/24 Range/Units 21:02 21:02 21:02 WBC 7.3 (3.8-10.6) k/uL RBC 4.57 (3.80-5.40) m/uL Hgb 12.9 (11.4-16.0) gm/dL Hct 41.2 (34.0-46.0) % MCV 90.2 (80.0-100.0) fL MCH 28.3 (25.0-35.0) pg MCHC 31.4 (31.0-37.0) g/dL RDW 14.0 (11.5-15.5) % Plt Count 257 (150-450) k/uL MPV 8.7 Neutrophils % 54 % Lymphocytes % 36 % Monocytes % 6 % Eosinophils % 2 % Basophils % 1 % Neutrophils # 3.9 (1.3-7.7) k/uL Lymphocytes # 2.6 (1.0-4.8) k/uL Monocytes # 0.5 (0-1.0) k/uL Eosinophils # 0.1 (0-0.7) k/uL Basophils # 0.1 (0-0.2) k/uL Hypochromasia Slight PT 11.4 (10.0-12.5) sec INR 1.0 (<1.2) APTT 23.4 (22.0-30.0) sec Sodium 138 (137-145) mmol/L Potassium 4.1 (3.5-5.1) mmol/L Chloride 109 H (98-107) mmol/L Carbon Dioxide 18 L (22-30) mmol/L Anion Gap 11 mmol/L BUN 15 (7-17) mg/dL Creatinine 1.21 H (0.52-1.04) mg/dL Est GFR (CKD-EPI)AfAm 48 (>60 ml/min/1.73 sqM) Est GFR (CKD-EPI)NonAf 41 (>60 ml/min/1.73 sqM) Glucose 263 H (74-99) mg/dL POC Glucose (mg/dL) (70-110) mg/dL POC Glu Animal Laboratory Technician ID Lactic Ac Sepsis Rflx Plasma Lactic Acid Victor Hugo (0.7-2.0) mmol/L Calcium 8.8 (8.4-10.2) mg/dL Phosphorus 4.7 H (2.5-4.5) mg/dL Magnesium 1.9 (1.6-2.3) mg/dL Total Bilirubin 1.0 (0.2-1.3) mg/dL AST 18 (14-36) U/L ALT 12 (4-34) U/L Alkaline Phosphatase 88 (38-126) U/L Troponin I (0.000-0.034) ng/mL Total Protein 6.6 (6.3-8.2) g/dL Albumin 4.1 (3.5-5.0) g/dL Urine Color Urine Appearance (Clear) Urine pH (5.0-8.0) Ur Specific [place] (1.001-1.035) Urine Protein (Negative) Urine Glucose (UA) (Negative) Urine Ketones (Negative) Urine Blood (Negative) Urine Nitrite (Negative) Urine Bilirubin (Negative) Urine Urobilinogen (<2.0) mg/dL Ur Leukocyte Esterase (Negative) Urine RBC (0-5) /hpf Urine WBC (0-5) /hpf Urine WBC Clumps (None) /hpf Urine Bacteria (None) /hpf Urine Mucus (None) /hpf 10/07/24 10/07/24 10/07/24 Range/Units 21:02 21:02 21:38 WBC (3.8-10.6) k/uL RBC (3.80-5.40) m/uL Hgb (11.4-16.0) gm/dL Hct (34.0-46.0) % MCV (80.0-100.0) fL MCH (25.0-35.0) pg MCHC (31.0-37.0) g/dL RDW (11.5-15.5) % Plt Count (150-450) k/uL MPV Neutrophils % % Lymphocytes % % Monocytes % % Eosinophils % % Basophils % % Neutrophils # (1.3-7.7) k/uL Lymphocytes # (1.0-4.8) k/uL Monocytes # (0-1.0) k/uL Eosinophils # (0-0.7) k/uL Basophils # (0-0.2) k/uL Hypochromasia PT (10.0-12.5) sec INR (<1.2) APTT (22.0-30.0) sec Sodium (137-145) mmol/L Potassium (3.5-5.1) mmol/L Chloride (98-107) mmol/L Carbon Dioxide (22-30) mmol/L Anion Gap mmol/L BUN (7-17) mg/dL Creatinine (0.52-1.04) mg/dL Est GFR (CKD-EPI)AfAm (>60 ml/min/1.73 sqM) Est GFR (CKD-EPI)NonAf (>60 ml/min/1.73 sqM) Glucose (74-99) mg/dL POC Glucose (mg/dL) 268 H (70-110) mg/dL POC Glu Animal Laboratory Technician ID Michela Sanket Lactic Ac Sepsis Rflx Plasma Lactic Acid Victor Hugo 3.5 H* (0.7-2.0) mmol/L Calcium (8.4-10.2) mg/dL Phosphorus (2.5-4.5) mg/dL Magnesium (1.6-2.3) mg/dL Total Bilirubin (0.2-1.3) mg/dL AST (14-36) U/L ALT (4-34) U/L Alkaline Phosphatase (38-126) U/L Troponin I <0.012 (0.000-0.034) ng/mL Total Protein (6.3-8.2) g/dL Albumin (3.5-5.0) g/dL Urine Color Urine Appearance (Clear) Urine pH (5.0-8.0) Ur Specific [place] (1.001-1.035) Urine Protein (Negative) Urine Glucose (UA) (Negative) Urine Ketones (Negative) Urine Blood (Negative) Urine Nitrite (Negative) Urine Bilirubin (Negative) Urine Urobilinogen (<2.0) mg/dL Ur Leukocyte Esterase (Negative) Urine RBC (0-5) /hpf Urine WBC (0-5) /hpf Urine WBC Clumps (None) /hpf Urine Bacteria (None) /hpf Urine Mucus (None) /hpf 10/07/24 10/07/24 Range/Units 22:10 22:55 WBC (3.8-10.6) k/uL RBC (3.80-5.40) m/uL Hgb (11.4-16.0) gm/dL Hct (34.0-46.0) % MCV (80.0-100.0) fL MCH (25.0-35.0) pg MCHC (31.0-37.0) g/dL RDW (11.5-15.5) % Plt Count (150-450) k/uL MPV Neutrophils % % Lymphocytes % % Monocytes % % Eosinophils % % Basophils % % Neutrophils # (1.3-7.7) k/uL Lymphocytes # (1.0-4.8) k/uL Monocytes # (0-1.0) k/uL Eosinophils # (0-0.7) k/uL Basophils # (0-0.2) k/uL Hypochromasia PT (10.0-12.5) sec INR (<1.2) APTT (22.0-30.0) sec Sodium (137-145) mmol/L Potassium (3.5-5.1) mmol/L Chloride (98-107) mmol/L Carbon Dioxide (22-30) mmol/L Anion Gap mmol/L BUN (7-17) mg/dL Creatinine (0.52-1.04) mg/dL Est GFR (CKD-EPI)AfAm (>60 ml/min/1.73 sqM) Est GFR (CKD-EPI)NonAf (>60 ml/min/1.73 sqM) Glucose (74-99) mg/dL POC Glucose (mg/dL) (70-110) mg/dL POC Glu Animal Laboratory Technician ID Lactic Ac Sepsis Rflx Y Plasma Lactic Acid Victor Hugo (0.7-2.0) mmol/L Calcium (8.4-10.2) mg/dL Phosphorus (2.5-4.5) mg/dL Magnesium (1.6-2.3) mg/dL Total Bilirubin (0.2-1.3) mg/dL AST (14-36) U/L ALT (4-34) U/L Alkaline Phosphatase (38-126) U/L Troponin I (0.000-0.034) ng/mL Total Protein (6.3-8.2) g/dL Albumin (3.5-5.0) g/dL Urine Color Yellow Urine Appearance Turbid H (Clear) Urine pH 5.5 (5.0-8.0) Ur Specific [place] 1.021 (1.001-1.035) Urine Protein 2+ H (Negative) Urine Glucose (UA) Negative (Negative) Urine Ketones Negative (Negative) Urine Blood Small H (Negative) Urine Nitrite Negative (Negative) Urine Bilirubin Negative (Negative) Urine Urobilinogen <2.0 (<2.0) mg/dL Ur Leukocyte Esterase Large H (Negative) Urine RBC 7 H (0-5) /hpf Urine WBC >182 H (0-5) /hpf Urine WBC Clumps Many H (None) /hpf Urine Bacteria Moderate H (None) /hpf Urine Mucus Moderate H (None) /hpf Disposition Clinical Impression: Weakness, LEON (acute kidney injury), UTI (urinary tract infection) Disposition: ADMITTED IP TO THIS [facility] Condition: Stable Decision to Admit Reason: Admit from EC Decision Date: 10/07/24 Decision Time: 22:45
[2024-10-07 21:40] LABS: Glucose,Whole Blood 268 mg/dL (70-110)
[2024-10-07] MEDS: SODIUM CHLORIDE 0.9% 1,000 ML IV STA (21:44)
[2024-10-07 22:00] LABS: Basophils # (A) 0.1 k/uL (0-0.2); Basophils % (A) 1 %; Eosinophils # (A) 0.1 k/uL (0-0.7); Eosinophils % (A) 2 %; HCT 41.2 % (34.0-46.0); HGB 12.9 gm/dL (11.4-16.0); Hypochromasia Slight; Lymphocytes # (A) 2.6 k/uL (1.0-4.8); Lymphocytes % (A) 36 %; MCH 28.3 pg (25.0-35.0); MCHC 31.4 g/dL (31.0-37.0); MCV 90.2 fL (80.0-100.0); Mean Platelet Volume 8.7; Monocytes # (A) 0.5 k/uL (0-1.0); Monocytes % (A) 6 %; Neutrophils # (A) 3.9 k/uL (1.3-7.7); Neutrophils % (A) 54 %; Platelet Count 257 k/uL (150-450); RBC 4.57 m/uL (3.80-5.40); WBC 7.3 k/uL (3.8-10.6)
[2024-10-07 22:06] LABS: ALT 12 U/L (4-34); AST 18 U/L (14-36); African American GFR (CKD) 48 (>60 ml/min/1.73 sqM); Albumin 4.1 g/dL (3.5-5.0); Alkaline Phosphatase 88 U/L (38-126); Anion Gap 11 mmol/L; Blood Urea Nitrogen 15 mg/dL (7-17); Calcium 8.8 mg/dL (8.4-10.2); Carbon Dioxide 18 mmol/L (22-30); Chloride 109 mmol/L (98-107); Glucose 263 mg/dL (74-99); Magnesium 1.9 mg/dL (1.6-2.3); Non-African American GFR(CKD) 41 (>60 ml/min/1.73 sqM); Phosphorus 4.7 mg/dL (2.5-4.5); Potassium 4.1 mmol/L (3.5-5.1); Sodium 138 mmol/L (137-145); Total Protein 6.6 g/dL (6.3-8.2)
[2024-10-07 22:15] LABS: Partial Thromboplastin Time 23.4 sec (22.0-30.0); Prothrombin Time 11.4 sec (10.0-12.5)
[2024-10-07 23:39] LABS: Appearance,Urine Turbid (Clear); Bacteria,Urine Moderate /hpf; Bilirubin,Urine Negative (Negative); Blood,Urine Small (Negative); Color,Urine Yellow; Glucose,Urine (UA) Negative (Negative); Ketones,Urine Negative (Negative); Leukocyte Esterase,Urine Large (Negative); Mucus,Urine Moderate /hpf; Nitrite,Urine Negative (Negative); PH, Urine 5.5 (5.0-8.0); Protein,Urine 2+ (Negative); RBC,Urine 7 /hpf (0-5); Urobilinogen,Urine <2.0 mg/dL (<2.0); WBC,Urine >182 /hpf (0-5)
[2024-10-07 23:46] LABS: Specific Gravity,Urine 1.021 (1.001-1.035)
[2024-10-08] MEDS ORDERED: ONDANSETRON 4 MG/2 ML VIAL IVP PRN
[2024-10-08] MEDS ORDERED: NALOXONE 0.4 MG/ML 1 ML VIAL IV PRN
--- NOTE | 2024-10-08 00:29 | XR ---
EXAM: XR Chest, 2 Views CLINICAL HISTORY: ITS.REASON XR Reason: weakness TECHNIQUE: Frontal and lateral views of the chest. COMPARISON: Prior chest x-ray from September 11, 2024. FINDINGS: Lungs: Mild to moderate peribronchial thickening of the central and lower lobe bronchi with increased interstitial opacities.. No consolidation. Pleural space: Unremarkable. No pneumothorax. Heart: Unremarkable. No cardiomegaly. Mediastinum: Unremarkable. Normal mediastinal contour. Bones/joints: Unremarkable. No acute fracture. IMPRESSION: Bronchitis with pneumonitis, which may be of infectious or inflammatory etiologies. No consolidation or pleural effusion.
[2024-10-08] MEDS: SODIUM CHLORIDE 0.9% 1,000 ML IV SCH (01:00)
[2024-10-08] MEDS: CIPROFLOXACIN/DEXTROSE PMX 400 MG in DEXTROSE/WATER 1 200ML.BAG IVPB SCH (01:01)
[2024-10-08 05:50] LABS: Glucose,Whole Blood 148 mg/dL (70-110)
[2024-10-08] MEDS ORDERED: DEXTROSE 50% SYRINGE 50 ML IVP PRN ×2 (12:15)
[2024-10-08] MEDS ORDERED: LOPERAMIDE 2 MG CAP PO PRN (12:16)
[2024-10-08 12:52] LABS: Glucose,Whole Blood 227 mg/dL (70-110)
[2024-10-08] MEDS: DILTIAZEM CD 180 MG CAP.ER.24H PO SCH (13:21)
[2024-10-08] MEDS: APIXABAN 5 MG TAB PO SCH (13:21)
[2024-10-08] MEDS: CHOLECALCIFEROL 25 MCG (1000 IU) TABLET PO SCH (13:21)
[2024-10-08] MEDS: ESCITALOPRAM 20 MG TAB PO SCH (13:21)
[2024-10-08] MEDS: LEVOTHYROXINE 25 MCG TAB PO SCH (13:21)
[2024-10-08] MEDS: PANTOPRAZOLE 40 MG TABLET PO SCH (13:21)
[2024-10-08] MEDS: INSULIN ASPART (NovoLOG) 100 UNIT/ML VIAL SQ SCH (13:22)
[2024-10-08 17:14] LABS: Glucose,Whole Blood 185 mg/dL (70-110)
--- NOTE | 2024-10-08 18:55 | P.HPIM ---
History of Present Illness H&P Date: 10/08/24 History of present illness; Patient is 84-year-old female with dementia, A-fib on Eliquis, who presents with generalized weakness and fall. Patient is confused and is poor historian. Patient was home and while using toilet and fell due to progressive weakness. Unknown downtime. She she does endorse some lower abdominal pain. She is not sure if she has had dysuria. She uses wheelchair at baseline. She denies fever or chills, chest pain, shortness of breath, weakness. -Labs completed in ER significant for WBC 7.3, bicarb 18, creatinine 1.21, glucose 263, lactic acid 3.5 => 2.1, troponin negative, UA significant for turbid appearance, protein 2+, blood small, leukocyte esterase large, large RBC, WBC> 182 with many clumps, bacteria and mucus. -EKG done in the ER independently interpreted showed sinus bradycardia, heart rate of 58, no ST segment elevation or depression seen, no T-wave inversions seen. -Chest x-ray done independently interpreted in the ER showed bronchitis with pneumonitis, without consolidation or pleural effusion. Spoke with the ER physician, patient admission was accepted by internal medicine service for treatment. REVIEW OF SYSTEMS: Pertinent positives and negatives noted in HPI. PHYSICAL EXAMINATION: Vitals reviewed GENERAL: No acute distress. Well developed, well nourished. HEENT: Pupils are round and equally reacting to light. EOMI. No scleral icterus. Normocephalic, atraumatic. No pharyngeal erythema. No thyromegaly. CARDIOVASCULAR: S1 and S2 present. No murmurs, rubs, or gallops. PULMONARY: Chest is clear to auscultation, no wheezing, rhonchi, or crackles. ABDOMEN: Soft, nontender, nondistended, normoactive bowel sounds. No palpable or ganomegaly. MUSCULOSKELETAL: No apparent joint swelling and deformities. EXTREMITIES: No apparent cyanosis, clubbing, or pedal edema. NEUROLOGICAL: The patient is alert and oriented x 2, Gross neurological examination did not reveal any focal deficits. SKIN: No apparent rashes. Assessment and plan Patient is 84-year-old female who presents with generalized weakness and fall. #UTI #Lactic acidosis -UA with elevated LE Initial lactic acid 3.5 and downtrending -begin ciprofloxacin/dextrose 400 mg daily for 3-5 days -Urine culture pending #Fall #Generalized weakness Uses wheelchair at baseline CK and D-dimer negative Orthostatic BP pending PT OT assessment #Diabetes mellitus, type 2 Holding oral medications Begin Accu-Cheks and low-dose sliding scale, monitor for hypoglycemia Resume home long-acting insulin 10 units twice daily Pending HbA1c Chronic Medical Conditions # Essential hypertension -Hold home Losartan for now #A-fib - Resume home Eliquis, Cardizem #Hyperlidemia - Resume home Atorvastatin #Hypothyroidism - Resume home Synthroid #GERD - Resume home Pantoprazole #Anxiety/Depression - Resume home Lexapro #Dementia F: IV Normal saline 75 mL/hr E: Replete as needed N: Heartedly diet DVT ppx: Eliquis 5 mg p.o. twice daily Code status: Anticipated discharge place: Home Anticipated discharge time: Pending clinical course Dictation was produced using [employer] dictation software. Please excuse any grammatical, word or spelling errors. Attestation I have seen and examined this patient with my resident , discussed the same with the resident/MANJINDER, and agree with the dictator's assessment and plan as written Dr. Jacky garrison Past Medical History Past Medical History: Atrial Fibrillation, CVA/TIA, Diabetes Mellitus, Hypertension, Memory Impairment Additional Past Medical History / Comment(s): UTI, falls History of Any Multi-Drug Resistant Organisms: VRE Date of last positivie culture/infection: 11/01/23 MDRO Source:: Urine Past Surgical History: Appendectomy Additional Past Surgical History / Comment(s): patient poor historian Past Anesthesia/Blood Transfusion Reactions: No Reported Reaction Past Psychological History: No Psychological Hx Reported Smoking Status: Former smoker Past Alcohol Use History: None Reported Past Drug Use History: None Reported - Past Family History Father History Unknown: Yes Medications and Allergies Home Medications Medication Instructions Recorded Confirmed Type Apixaban [Eliquis] 5 mg PO BID 08/25/23 10/08/24 History Atorvastatin [Lipitor] 40 mg PO HS 08/25/23 10/08/24 History Escitalopram [Lexapro] 20 mg PO DAILY 08/25/23 10/08/24 History Ferrous Sulfate [Iron (65 MG 325 mg PO HS 08/25/23 10/08/24 History Elemental)] Levothyroxine Sodium [Synthroid] 12.5 mcg PO AC-BRKFST 08/25/23 10/08/24 History Loperamide HCl [Imodium A-D] 2 mg PO QID PRN 08/25/23 10/08/24 History Loratadine 10 mg PO HS 08/25/23 10/08/24 History Montelukast [Singulair] 10 mg PO HS 08/25/23 10/08/24 History Budesonide-Formot 160-4.5 Mcg 2 puff INHALATION RT-BID #1 each 10/28/23 10/08/24 Rx [Symbicort 160-4.5 Mcg Inhaler] Thiamine [Vitamin B-1] 100 mg PO DAILY tab 12/09/23 10/08/24 Rx Spiriva Respimat 1.25mcg/Actuation 1 puff INHALATION RT-DAILY 05/10/24 10/08/24 History Mist Losartan [Cozaar] 25 mg PO DAILY 30 Days #30 tab 05/14/24 10/08/24 Rx Pantoprazole [Protonix] 40 mg PO AC-BRKFST 30 Days #30 tab 05/14/24 10/08/24 Rx Lacosamide [Vimpat] 100 mg PO HS #4 tab 06/21/24 10/08/24 Rx Cholecalciferol [Vitamin D3 (25 50 mcg PO DAILY 10/08/24 10/08/24 History Mcg = 1000 Iu)] Insulin Aspart [NovoLOG Flexpen] See Protocol SQ ACHS 10/08/24 10/08/24 History Insulin Glargine,Hum.rec.anlog 16 units SQ HS 10/08/24 10/08/24 History [Lantus Solostar Pen] Insulin Glargine,Hum.rec.anlog 24 units SQ DAILY 10/08/24 10/08/24 History [Lantus Solostar Pen] Ipratropium-Albuterol Nebulize 3 ml INHALATION RT-QID PRN 10/08/24 10/08/24 History [Duoneb 0.5 mg-3 mg/3 ml Soln] Rosuvastatin [Crestor] 20 mg PO DAILY 10/08/24 10/08/24 History dilTIAZem HCL [Tiazac] 180 mg PO DAILY 10/08/24 10/08/24 History Allergies Allergy/AdvReac Type Severity Reaction Status Date / Time Penicillins Allergy Rash/Hives Verified 10/08/24 09:22 cefepime AdvReac Confusion Verified 10/08/24 09:22 Physical Exam Vitals: Vital Signs Temp Pulse Pulse Resp BP BP Pulse Ox 10/08/24 07:00 97.8 F 74 16 165/85 97 10/08/24 02:21 97.7 F 63 16 151/82 96 10/08/24 02:03 98.0 F 63 16 146/73 97 10/07/24 23:47 60 18 128/72 94 L 10/07/24 21:04 97.1 F L 65 16 106/65 94 L Intake and Output 10/07/24 10/08/24 10/08/24 22:59 06:59 14:59 Output Total 50 Balance -50 Output: Urine 50 Other: Weight 95.254 kg 95.254 kg Results CBC & Chem 7: 10/09/24 04:20 10/09/24 04:20 Labs: Abnormal Lab Results - Last 24 Hours (Table) 10/07/24 10/07/24 10/07/24 Range/Units 21:02 21:02 21:38 Chloride 109 H (98-107) mmol/L Carbon Dioxide 18 L (22-30) mmol/L Creatinine 1.21 H (0.52-1.04) mg/dL Glucose 263 H (74-99) mg/dL POC Glucose (mg/dL) 268 H (70-110) mg/dL Plasma Lactic Acid Victor Hugo 3.5 H* (0.7-2.0) mmol/L Phosphorus 4.7 H (2.5-4.5) mg/dL Urine Appearance (Clear) Urine Protein (Negative) Urine Blood (Negative) Ur Leukocyte Esterase (Negative) Urine RBC (0-5) /hpf Urine WBC (0-5) /hpf Urine WBC Clumps (None) /hpf Urine Bacteria (None) /hpf Urine Mucus (None) /hpf 10/07/24 10/08/24 10/08/24 Range/Units 22:55 00:25 05:46 Chloride (98-107) mmol/L Carbon Dioxide (22-30) mmol/L Creatinine (0.52-1.04) mg/dL Glucose (74-99) mg/dL POC Glucose (mg/dL) 148 H (70-110) mg/dL Plasma Lactic Acid Victor Hugo 2.1 H* (0.7-2.0) mmol/L Phosphorus (2.5-4.5) mg/dL Urine Appearance Turbid H (Clear) Urine Protein 2+ H (Negative) Urine Blood Small H (Negative) Ur Leukocyte Esterase Large H (Negative) Urine RBC 7 H (0-5) /hpf Urine WBC >182 H (0-5) /hpf Urine WBC Clumps Many H (None) /hpf Urine Bacteria Moderate H (None) /hpf Urine Mucus Moderate H (None) /hpf Thrombosis Risk Factor Assmnt - Choose All That Apply Each Factor Represents 1 point: Obesity (BMI >25) Each Risk Factor Represents 3 Points: Age 75 years or older Thrombosis Risk Factor Assessment Total Risk Factor Score: 4 Thrombosis Risk Factor Assessment Level: Moderate Risk
[2024-10-08] MEDS ORDERED: ZINC OXIDE PASTE (Z-GUARD) 1 APPLIC TOPICAL PRN (19:29)
[2024-10-08 20:00] LABS: Glucose,Whole Blood 198 mg/dL (70-110)
[2024-10-08] MEDS: SYMBICORT 160-4.5 MCG INHALER INHALATION SCH (20:29)
[2024-10-08] MEDS: ATORVASTATIN 40 MG TAB PO SCH (20:39)
[2024-10-08] MEDS: FERROUS SULFATE 325 MG TAB PO SCH (20:39)
[2024-10-08] MEDS: LORATADINE 10 MG TAB PO SCH (20:39)
[2024-10-08] MEDS: MONTELUKAST 10 MG TAB PO SCH (20:39)
[2024-10-08] MEDS: INSULIN DETEMIR (LEVEMIR) 100 UNIT/ML SYR SQ SCH (20:39)
[2024-10-09 05:41] LABS: Glucose,Whole Blood 191 mg/dL (70-110)
[2024-10-09 08:17] LABS: Basophils # (A) 0.04 X 10*3/uL (0.00-0.10); Basophils % (A) 0.7 %; Eosinophils # (A) 0.11 X 10*3/uL (0.04-0.35); Eosinophils % (A) 1.8 %; HCT 34.6 % (37.2-46.3); Lymphocytes # (A) 1.91 X 10*3/uL (0.90-5.00); Lymphocytes % (A) 31.3 %; MCH 28.3 pg (27.0-32.0); MCHC 31.8 g/dL (32.0-37.0); MCV 88.9 FL (80.0-97.0); Mean Platelet Volume 11.5 FL (9.5-12.2); Monocytes # (A) 0.54 X 10*3/uL (0.20-1.00); Monocytes % (A) 8.8 %; NRBC Per 100 WBC 0 X 10*3/uL (0.00-0.01); Neutrophils # (A) 3.48 X 10*3/uL (1.80-7.70); Neutrophils % (A) 56.9 %; Platelet Count 190 X 10*3/uL (140-440); RBC 3.89 X 10*6/uL (4.10-5.20); RDW 13.4 % (11.5-14.5); WBC 6.11 X 10*3/uL (4.50-10.00)
[2024-10-09 08:41] LABS: ALT 6 U/L (8-44); AST 11 U/L (13-35); Albumin 3.5 g/dL (3.8-4.9); Albumin/Globulin Ratio 1.67 Ratio (1.60-3.17); Alkaline Phosphatase 81 U/L (41-126); BUN/Creat Ratio 11.56 Ratio (12.00-20.00); Blood Urea Nitrogen 10.4 mg/dL (9.0-27.0); Calcium 8.1 mg/dL (8.7-10.3); Carbon Dioxide 21.4 mmol/L (21.6-31.8); Chloride 108 mmol/L (96-109); Globulin 2.1 g/dL (1.6-3.3); Glucose 217 mg/dL (70-110); Potassium 4.2 mmol/L (3.5-5.5); Sodium 140 mmol/L (135-145); Total Bilirubin 0.4 mg/dL (0.3-1.2); Total Protein 5.6 g/dL (6.2-8.2)
[2024-10-09] MEDS ORDERED: NON FORMULARY DRUG (Rosuvastatin 20 MG Tablet) PO SCH (09:00)
[2024-10-09] MEDS: TIOTROPIUM 2.5 MCG INHALER INHALATION SCH (09:34)
[2024-10-09 11:45] LABS: Glucose,Whole Blood 217 mg/dL (70-110)
--- NOTE | 2024-10-09 13:01 | P.PN ---
Subjective Progress Note Date: 10/09/24 History of present illness; Patient is 84-year-old female with dementia, A-fib on Eliquis, who presents with generalized weakness and fall. Patient is confused and is poor historian. Patient was home and while using toilet and fell due to progressive weakness. Unknown downtime. She she does endorse some lower abdominal pain. She is not sure if she has had dysuria. She uses wheelchair at baseline. She denies fever or chills, chest pain, shortness of breath, weakness. -Labs completed in ER significant for WBC 7.3, bicarb 18, creatinine 1.21, glucose 263, lactic acid 3.5 => 2.1, troponin negative, UA significant for turbid appearance, protein 2+, blood small, leukocyte esterase large, large RBC, WBC> 182 with many clumps, bacteria and mucus. -EKG done in the ER independently interpreted showed sinus bradycardia, heart rate of 58, no ST segment elevation or depression seen, no T-wave inversions seen. -Chest x-ray done independently interpreted in the ER showed bronchitis with pneumonitis, without consolidation or pleural effusion. 10/09/2024 Patient seen and examined at bedside. She does states she has some lower abdominal pain and burning with urination. She continues on IV ciprofloxacin for UTI treatment. Labs today significant for WBC 6.11, hemoglobin 11, sodium 140, potassium 4.2, bicarb 21.4, BUN 10.4, creatinine 0.9, glucose 217, HbA1c 8.6. REVIEW OF SYSTEMS: Pertinent positives and negatives noted in HPI. PHYSICAL EXAMINATION: Vitals reviewed GENERAL: No acute distress. Well developed, well nourished. HEENT: Pupils are round and equally reacting to light. EOMI. No scleral icterus. Normocephalic, atraumatic. No pharyngeal erythema. No thyromegaly. CARDIOVASCULAR: S1 and S2 present. No murmurs, rubs, or gallops. PULMONARY: Chest is clear to auscultation, no wheezing, rhonchi, or crackles. ABDOMEN: Soft, nontender, nondistended, normoactive bowel sounds. No palpable organomegaly. MUSCULOSKELETAL: No apparent joint swelling and deformities. EXTREMITIES: No apparent cyanosis, clubbing, or pedal edema. NEUROLOGICAL: The patient is alert and oriented x 2, Gross neurological examination did not reveal any focal deficits. SKIN: No apparent rashes. Assessment and plan Patient is 84-year-old female who presents with generalized weakness and fall. #UTI #Lower abdominal pain #Lactic acidosis -UA with elevated LE, repeat pending Initial lactic acid 3.5 and downtrending -begin ciprofloxacin/dextrose 400 mg daily for 3-5 days Ultrasound kidney bladder pending CT abdomen pelvis pending Procalcitonin pending -Urine culture gram-negative bacilli #Fall #Generalized weakness Uses wheelchair at baseline CK and D-dimer negative Orthostatic BP pending PT OT assessment #Diabetes mellitus, type 2 Holding oral medications Begin Accu-Cheks and low-dose sliding scale, monitor for hypoglycemia Resume home long-acting insulin 10 units twice daily Pending HbA1c Chronic Medical Conditions # Essential hypertension -Hold home Losartan for now #A-fib - Resume home Eliquis, Cardizem #Hyperlidemia - Resume home Atorvastatin #Hypothyroidism - Resume home Synthroid #GERD - Resume home Pantoprazole #Anxiety/Depression - Resume home Lexapro #Dementia F: IV Normal saline 75 mL/hr E: Replete as needed N: Heartedly diet DVT ppx: Eliquis 5 mg p.o. twice daily Anticipated discharge place: Home Anticipated discharge time: Tomorrow or next day Dictation was produced using [employer] dictation software. Please excuse any grammatical, word or spelling errors. Attestation I have seen and examined this patient with my resident , discussed the same with the resident/MANJINDER, and agree with the dictator's assessment and plan as written Dr. Jacky garrison Objective - Vital Signs Vital signs: Vital Signs Temp 98.2 F 10/09/24 01:50 Pulse 79 10/09/24 01:50 Resp 17 10/09/24 01:50 BP 148/68 10/09/24 01:50 Pulse Ox 96 10/09/24 01:50 FiO2 Intake & Output 10/08/24 10/09/24 10/09/24 18:59 06:59 18:59 Intake Total 579 Output Total 850 1300 Balance -271 -1300 Intake: Oral 579 Output: Urine 850 1300 Other: # Voids 1 - Labs CBC & Chem 7: 10/09/24 04:20 10/09/24 04:20 Labs: Abnormal Lab Results - Last 24 Hours (Table) 10/08/24 10/08/24 10/08/24 Range/Units 12:51 14:03 17:12 RBC (4.10-5.20) X 10*6/uL Hgb (12.0-15.0) g/dL Hct (37.2-46.3) % MCHC (32.0-37.0) g/dL Carbon Dioxide (21.6-31.8) mmol/L BUN/Creatinine Ratio (12.00-20.00) Ratio Glucose (70-110) mg/dL POC Glucose (mg/dL) 227 H 185 H (70-110) mg/dL Hemoglobin A1c (<=6.0) % Plasma Lactic Acid Victor Hugo 2.2 H* (0.7-2.0) mmol/L Calcium (8.7-10.3) mg/dL AST (13-35) U/L ALT (8-44) U/L Total Protein (6.2-8.2) g/dL Albumin (3.8-4.9) g/dL 10/08/24 10/09/24 10/09/24 Range/Units 19:58 04:20 04:20 RBC 3.89 L (4.10-5.20) X 10*6/uL Hgb 11.0 L (12.0-15.0) g/dL Hct 34.6 L (37.2-46.3) % MCHC 31.8 L (32.0-37.0) g/dL Carbon Dioxide (21.6-31.8) mmol/L BUN/Creatinine Ratio (12.00-20.00) Ratio Glucose (70-110) mg/dL POC Glucose (mg/dL) 198 H (70-110) mg/dL Hemoglobin A1c 8.6 H (<=6.0) % Plasma Lactic Acid Victor Hugo (0.7-2.0) mmol/L Calcium (8.7-10.3) mg/dL AST (13-35) U/L ALT (8-44) U/L Total Protein (6.2-8.2) g/dL Albumin (3.8-4.9) g/dL 10/09/24 10/09/24 Range/Units 04:20 05:40 RBC (4.10-5.20) X 10*6/uL Hgb (12.0-15.0) g/dL Hct (37.2-46.3) % MCHC (32.0-37.0) g/dL Carbon Dioxide 21.4 L (21.6-31.8) mmol/L BUN/Creatinine Ratio 11.56 L (12.00-20.00) Ratio Glucose 217 H (70-110) mg/dL POC Glucose (mg/dL) 191 H (70-110) mg/dL Hemoglobin A1c (<=6.0) % Plasma Lactic Acid Victor Hugo (0.7-2.0) mmol/L Calcium 8.1 L (8.7-10.3) mg/dL AST 11 L (13-35) U/L ALT 6 L (8-44) U/L Total Protein 5.6 L (6.2-8.2) g/dL Albumin 3.5 L (3.8-4.9) g/dL
--- NOTE | 2024-10-09 13:32 | US ---
EXAMINATION TYPE: US kidneys/renal and bladder DATE OF EXAM: 10/09/2024 COMPARISON: CT abdomen and pelvis 09/27/2024 CLINICAL INDICATION: Female, 84 years old with history of UTI; Patient is AMS and incontinent TECHNIQUE: Grayscale imaging of the bilateral kidneys and urinary bladder: FINDINGS: EXAM MEASUREMENTS: Right Kidney: 9.4 x 5.0 x 4.3 cm Left Kidney: 7.9 x 5.8 x 5.5 cm Post Void Residual Volume: NA mL Right Kidney: Limited visualization; WNL as visualized Left Kidney: Limited visualization; WNL as visualized Bladder: ? Debris vs thickened posterior wall Bilateral Jets seen: No Normal Post Void Residual: NA Limited visualization of both kidneys due to patient's body habitus. No hydronephrosis. No definitive shadowing calculi or solid mass. The ureteral jets are not identified. There is layering debris vers us thickened posterior urinary bladder wall. No color flow identified. IMPRESSION: 1. Limited evaluation due to patient's body habitus without evidence for hydronephrosis. 2. Thickened posterior urinary bladder versus layering debris. Correlate with urinalysis. [facility], , 10/09/2024 1:30 PM
--- NOTE | 2024-10-09 14:40 | CT ---
EXAMINATION TYPE: CT abdomen pelvis wo con DATE OF EXAM: 10/09/2024 2:27 PM COMPARISON: CT abdomen pelvis most recent from 09/27/2024 CLINICAL INDICATION: Female, 84 years old with history of lower abdo pain; Low abdominal pain. TECHNIQUE: Axial CT abdomen pelvis wo con;Sagittal and coronal reformats were created on a separate workstation. Contrast used: mL of , (none if empty) Oral contrast used: without Oral Contrast (none if empty) CT DLP: 1119.70 mGycm, Automated exposure control for dose reduction was used. FINDINGS: LOWER CHEST: Unremarkable ABDOMEN LIVER: Unremarkable GALLBLADDER AND BILE DUCTS: Unremarkable. PANCREAS: Unremarkable. SPLEEN: Unremarkable. ADRENAL GLANDS: Unremarkable. KIDNEYS AND URETERS: No evidence of hydronephrosis or renal calculus. The ureters are unremarkable. PELVIS BLADDER: Improved Fat stranding changes around the urinary bladder compared to prior. No evidence for wall thickening or mass given limitations of exam. REPRODUCTIVE: Unremarkable. ABDOMEN & PELVIS STOMACH AND BOWEL: No evidence of bowel obstruction. Scattered colonic diverticula. The appendix is v isualized and normal. Small hiatal hernia present. PERITONEUM/RETROPERITONEUM: No evidence of pneumoperitoneum or free fluid. VASCULATURE: No evidence of aortic aneurysm. MUSCULOSKELETAL: No acute osseous abnormalities, grade 1 anterolisthesis of L4 and L5 without spondyl olysis. There is moderate spinal canal stenosis at this level. LYMPH NODES: No gross evidence for lymphadenopathy. SOFT TISSUE/ABDOMINAL WALL: Diastases of the rectus abdominis. IMPRESSION: 1. Improved appearance of the urinary bladder, correlate with urinalysis for any persistent cystitis . No evidence for acute abdominal process. 2. Colonic diverticulosis. 3. Normal appendix. 4. No obstructive uropathy or renal calculus. 5. Small hiatal hernia. 6. Grade 1 anterolisthesis of L4 and L5 with moderate spinal canal stenosis. [facility], , 10/09/2024 2:38 PM
[2024-10-09 16:36] LABS: Appearance,Urine Clear (Clear); Bilirubin,Urine Negative (Negative); Blood,Urine Negative (Negative); Color,Urine Colorless; Glucose,Urine (UA) 1+ (Negative); Ketones,Urine Negative (Negative); Leukocyte Esterase,Urine Large (Negative); Nitrite,Urine Negative (Negative); PH, Urine 5.5 (5.0-8.0); Protein,Urine Negative (Negative); RBC,Urine 1 /hpf (0-5); Specific Gravity,Urine 1.004 (1.001-1.035); Urobilinogen,Urine <2.0 mg/dL (<2.0); WBC,Urine 33 /hpf (0-5)
[2024-10-09 16:58] LABS: Glucose,Whole Blood 228 mg/dL (70-110)
[2024-10-09 20:38] LABS: Glucose,Whole Blood 193 mg/dL (70-110)
[2024-10-10 05:55] LABS: Glucose,Whole Blood 158 mg/dL (70-110)
[2024-10-10 12:12] LABS: Glucose,Whole Blood 333 mg/dL (70-110)
--- NOTE | 2024-10-10 16:33 | P.PN ---
Subjective Progress Note Date: 10/10/24 Patient is 84-year-old female with dementia, A-fib on Eliquis, who presents with generalized weakness and fall. Patient is confused and is poor historian. Patient was home and while using toilet and fell due to progressive weakness. Unknown downtime. She she does endorse some lower abdominal pain. She is not sure if she has had dysuria. She uses wheelchair at baseline. She denies fever or chills, chest pain, shortness of breath, weakness. -Labs completed in ER significant for WBC 7.3, bicarb 18, creatinine 1.21, glucose 263, lactic acid 3.5 => 2.1, troponin negative, UA significant for turbid appearance, protein 2+, blood small, leukocyte esterase large, large RBC, WBC> 182 with many clumps, bacteria and mucus. -EKG done in the ER independently interpreted showed sinus bradycardia, heart r ate of 58, no ST segment elevation or depression seen, no T-wave inversions seen. -Chest x-ray done independently interpreted in the ER showed bronchitis with pneumonitis, without consolidation or pleural effusion. 10/09/2024 Patient seen and examined at bedside. She does states she has some lower abdominal pain and burning with urination. She continues on IV ciprofloxacin for UTI treatment. Labs today significant for WBC 6.11, hemoglobin 11, sodium 140, potassium 4.2, bicarb 21.4, BUN 10.4, creatinine 0.9, glucose 217, HbA1c 8.6. 10/10. Patient seen and examined. Denies any lethargy or weakness. REVIEW OF SYSTEMS: CONSTITUTIONAL: No fever, no malaise,. CARDIOVASCULAR: No chest pain, no palpitations, no syncope. PULMONARY: No shortness of breath, no cough, GASTROINTESTINAL: No diarrhea, no nausea, no vomiting, no abdominal pain. NEUROLOGICAL: No headaches, no weakness, PHYSICAL EXAMINATION: GENERAL: The patient is alert to self HEENT: Pupils are round and equally reacting to light. EOMI. No scleral icterus. No conjunctival pallor. Normocephalic, atraumatic. No pharyngeal erythema. No thyromegaly. CARDIOVASCULAR: S1 and S2 present. No murmurs, rubs, or gallops. PULMONARY: Chest is clear to auscultation, no wheezing or crackles. ABDOMEN: Soft, nontender, nondistended, normoactive bowel sounds. No palpable organomegaly. MUSCULOSKELETAL: No joint swelling or deformity. EXTREMITIES: No cyanosis, clubbing, or pedal edema. NEUROLOGICAL: Gross neurological examination did not reveal any focal deficits. SKIN: No rashes. Assessment and plan #UTI #Lower abdominal pain #Lactic acidosis -Urine culture gram-negative bacilli CT abdominal pelvis and ultrasound noted. Continue IV Cipro ID consulted #Fall #Generalized weakness Uses wheelchair at baseline CK and D-dimer negative Orthostatic BP pending PT OT assessment #Diabetes mellitus, type 2 Holding oral medications Begin Accu-Cheks and low-dose sliding scale, monitor for hypoglycemia Resume home long-acting insulin 10 units twice daily Pending HbA1c Chronic Medical Conditions # Essential hypertension -Hold home Losartan for now #A-fib - Resume home Eliquis, Cardizem #Hyperlidemia - Resume home Atorvastatin #Hypothyroidism - Resume home Synthroid #GERD - Resume home Pantoprazole #Anxiety/Depression - Resume home Lexapro #Dementia Labs and medication were reviewed.. Continue same treatment. Continue with symptomatic treatment. Resume home medication. Monitor labs and vitals. DVT and GI prophylaxis. Further recommendations as per clinical course of the patient Dictation was produced using [employer] dictation software. please excuse any grammatical, word or spelling errors. Objective - Vital Signs Vital signs: Vital Signs Temp 98.1 F 10/10/24 07:00 Pulse 75 10/10/24 07:00 Resp 16 10/10/24 07:00 BP 144/81 10/10/24 07:00 Pulse Ox 95 10/10/24 07:00 FiO2 Intake & Output 10/09/24 10/10/24 10/10/24 18:59 06:59 18:59 Intake Total 236 240 118 Output Total 1600 1700 Balance -1364 -1460 118 Intake: Oral 236 240 118 Output: Urine 1600 1700 - Labs CBC & Chem 7: 10/09/24 04:20 10/09/24 04:20 Labs: Abnormal Lab Results - Last 24 Hours (Table) 10/09/24 10/09/24 10/09/24 Range/Units 16:00 16:57 20:35 POC Glucose (mg/dL) 228 H 193 H (70-110) mg/dL Urine Glucose (UA) 1+ H (Negative) Ur Leukocyte Esterase Large H (Negative) Urine WBC 33 H (0-5) /hpf 10/10/24 10/10/24 Range/Units 05:44 12:10 POC Glucose (mg/dL) 158 H 333 H (70-110) mg/dL Urine Glucose (UA) (Negative) Ur Leukocyte Esterase (Negative) Urine WBC (0-5) /hpf Microbiology - Last 24 Hours (Table) 10/07/24 22:55 Urine Culture - Final Urine,Voided Klebsiella pneumoniae
[2024-10-10 17:14] LABS: Glucose,Whole Blood 198 mg/dL (70-110)
[2024-10-10 19:37] VITALS: RESP 16
[2024-10-10 20:16] LABS: Glucose,Whole Blood 299 mg/dL (70-110)
[2024-10-10] MEDS: ACETAMINOPHEN TAB 325 MG TAB PO PRN (20:46)
--- NOTE | 2024-10-10 22:03 | P.CONS ---
History of Present Illness - Reason for Consult Consult date: 10/10/24 UTI Requesting physician: Jacky Grossman - Chief Complaint Weakness and burning of feeling x few days - History of Present Illness Patient is a 84-year-old female with a past medical history significant for diabetes mellitus hypertension CVA TIA memory impairment history of recurrent UTI patient presented to hospital 3 days ago for evaluation of generalized weakness that when the patient was on the toilet having a bowel movement patient subsequently did have a fall concerning for syncopal episode however the patient denies passing out has been complaining of feeling weak patient denies any headache no chest pain shortness of breath or cough no nausea vomiting no abdominal pain or diarrhea he did have some urinary burning and frequency but no hematuria on presentation to the hospital patient was afebrile no fever have been ordered subsequently patient was not tachycardic hypotensive or hypoxic patient did have a white count of 6.1 creatinine 0.9 lactic acid was 3.5 repeat is normal liver isms are normal urine has been positive and the culture did grow E. 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 MDRO Source:: Urine Past Surgical History: Appendectomy Additional Past Surgical History / Comment(s): patient poor historian Past Anesthesia/Blood Transfusion Reactions: No Reported Reaction Past Psychological History: No Psychological Hx Reported Smoking Status: Never smoker Past Alcohol Use History: None Reported Past Drug Use History: None Reported - Past Family History Father History Unknown: Yes Medications and Allergies Home Medications Medication Instructions Recorded Confirmed Type Apixaban [Eliquis] 5 mg PO BID 08/25/23 10/08/24 History Atorvastatin [Lipitor] 40 mg PO HS 08/25/23 10/08/24 History Escitalopram [Lexapro] 20 mg PO DAILY 08/25/23 10/08/24 History Ferrous Sulfate [Iron (65 MG 325 mg PO HS 08/25/23 10/08/24 History Elemental)] Levothyroxine Sodium [Synthroid] 12.5 mcg PO AC-BRKFST 08/25/23 10/08/24 History Loperamide HCl [Imodium A-D] 2 mg PO QID PRN 08/25/23 10/08/24 History Loratadine 10 mg PO HS 08/25/23 10/08/24 History Montelukast [Singulair] 10 mg PO HS 08/25/23 10/08/24 History Budesonide-Formot 160-4.5 Mcg 2 puff INHALATION RT-BID #1 each 10/28/23 10/08/24 Rx [Symbicort 160-4.5 Mcg Inhaler] Thiamine [Vitamin B-1] 100 mg PO DAILY tab 12/09/23 10/08/24 Rx Spiriva Respimat 1.25mcg/Actuation 1 puff INHALATION RT-DAILY 05/10/24 10/08/24 History Mist Losartan [Cozaar] 25 mg PO DAILY 30 Days #30 tab 05/14/24 10/08/24 Rx Pantoprazole [Protonix] 40 mg PO AC-BRKFST 30 Days #30 tab 05/14/24 10/08/24 Rx Lacosamide [Vimpat] 100 mg PO HS #4 tab 06/21/24 10/08/24 Rx Cholecalciferol [Vitamin D3 (25 50 mcg PO DAILY 10/08/24 10/08/24 History Mcg = 1000 Iu)] Insulin Aspart [NovoLOG Flexpen] See Protocol SQ ACHS 10/08/24 10/08/24 History Insulin Glargine,Hum.rec.anlog 16 units SQ HS 10/08/24 10/08/24 History [Lantus Solostar Pen] Insulin Glargine,Hum.rec.anlog 24 units SQ DAILY 10/08/24 10/08/24 History [Lantus Solostar Pen] Ipratropium-Albuterol Nebulize 3 ml INHALATION RT-QID PRN 10/08/24 10/08/24 History [Duoneb 0.5 mg-3 mg/3 ml Soln] Rosuvastatin [Crestor] 20 mg PO DAILY 10/08/24 10/08/24 History dilTIAZem HCL [Tiazac] 180 mg PO DAILY 10/08/24 10/08/24 History Ciprofloxacin HCl [Cipro] 500 mg PO BID 5 Days #10 tab 10/11/24 Rx Allergies Allergy/AdvReac Type Severity Reaction Status Date / Time Penicillins Allergy Rash/Hives Verified 10/08/24 09:22 cefepime AdvReac Confusion Verified 10/08/24 09:22 Physical Exam Vitals: Vital Signs Temp Pulse Resp BP Pulse Ox 10/10/24 20:00 81 10/10/24 19:36 98.1 F 81 16 134/80 95 10/10/24 14:54 97.4 F L 75 17 117/68 98 10/10/24 07:00 98.1 F 75 16 144/81 95 10/10/24 01:53 98.1 F 95 17 153/85 95 Intake and Output 10/10/24 10/10/24 10/10/24 06:59 14:59 22:59 Intake Total 236 118 Output Total 1700 525 Balance -1700 -289 118 Intake: Oral 236 118 Output: Urine 1700 525 GENERAL DESCRIPTION: Elderly female lying in bed, no distress. No tachypnea or accessory muscle of respiration use. HEENT: Shows Pallor , no scleral icterus. Oral mucous membrane is dry. NECK: Trachea central, no thyromegaly. LUNGS: Unlabored breathing. Clear to auscultation anteriorly. No wheeze or crackle. HEART: S1, S2, regular rate and rhythm. No loud murmur ABDOMEN: Soft, no tenderness , guarding or rigidity, no organomegaly EXTREMITIES: No edema of feet. SKIN: No rash, no masses palpable. NEUROLOGICAL: The patient is awake, alert, oriented x3, mood and affect normal. Results CBC & Chem 7: 10/11/24 05:27 10/11/24 05:27 Labs: Abnormal Lab Results - Last 24 Hours (Table) 10/10/24 10/10/24 10/10/24 Range/Units 05:44 12:10 17:12 POC Glucose (mg/dL) 158 H 333 H 198 H (70-110) mg/dL 10/10/24 Range/Units 20:15 POC Glucose (mg/dL) 299 H (70-110) mg/dL Microbiology - Last 24 Hours (Table) 10/09/24 16:00 Urine Culture - Final Urine,Voided 10/07/24 22:55 Urine Culture - Final Urine,Voided Klebsiella pneumoniae Assessment and Plan (1) UTI (urinary tract infection) Status: Acute Code(s): N39.0 - URINARY TRACT INFECTION, SITE NOT SPECIFIED SNOMED Code(s): 35624972 (2) Allergy to multiple antibiotics Status: Acute Code(s): Z88.1 - ALLERGY STATUS TO OTHER ANTIBIOTIC AGENTS SNOMED Code(s): 437156425 Plan: 1patient presented hospital with weakness and did have a fall patient did have vitamin of urine positive UA concerning for symptomatic urinary tract infection with urine culture finalized with E. coli sensitive pathogen nursing staff did call the micro lab to confirm the pathogen is sensitive to ciprofloxacin 2-I will switch IV Cipro to oral as oral Cipro has good oral bioavailability and the patient is taking oral medication 3-consider total of 5 to 7-day course of therapy We will follow on clinical condition and cultures to further adjust medication if needed Thank you for this consultation we will follow the patient along with you Dictation was produced using [employer] dictation software. please excuse any grammatical, word or spelling errors. Time with Patient: Greater than 30
[2024-10-11 05:41] LABS: Glucose,Whole Blood 153 mg/dL (70-110)
[2024-10-11 07:53] VITALS: BP 117/79; PULSE 74; TEMP 97.5
[2024-10-11] MEDS: CIPROFLOXACIN HCL 500 MG TAB PO SCH (09:14)
[2024-10-11 09:29] LABS: Basophils # (A) 0.05 X 10*3/uL (0.00-0.10); Basophils % (A) 0.8 %; Eosinophils # (A) 0.15 X 10*3/uL (0.04-0.35); Eosinophils % (A) 2.5 %; HCT 36.7 % (37.2-46.3); HGB 11.3 g/dL (12.0-15.0); Lymphocytes # (A) 1.84 X 10*3/uL (0.90-5.00); Lymphocytes % (A) 30.1 %; MCH 27.6 pg (27.0-32.0); MCHC 30.8 g/dL (32.0-37.0); MCV 89.7 FL (80.0-97.0); Mean Platelet Volume 11.7 FL (9.5-12.2); Monocytes # (A) 0.57 X 10*3/uL (0.20-1.00); Monocytes % (A) 9.3 %; NRBC Per 100 WBC 0 X 10*3/uL (0.00-0.01); Neutrophils # (A) 3.47 X 10*3/uL (1.80-7.70); Neutrophils % (A) 56.8 %; Platelet Count 191 X 10*3/uL (140-440); RBC 4.09 X 10*6/uL (4.10-5.20); RDW 13.7 % (11.5-14.5); WBC 6.11 X 10*3/uL (4.50-10.00)
[2024-10-11 10:43] LABS: ALT <5 U/L (8-44); AST 11 U/L (13-35); Albumin 3.6 g/dL (3.8-4.9); Alkaline Phosphatase 83 U/L (41-126); BUN/Creat Ratio 13.89 Ratio (12.00-20.00); Blood Urea Nitrogen 12.5 mg/dL (9.0-27.0); Calcium 8.5 mg/dL (8.7-10.3); Carbon Dioxide 24.2 mmol/L (21.6-31.8); Chloride 106 mmol/L (96-109); Globulin 1.8 g/dL (1.6-3.3); Glucose 171 mg/dL (70-110); Potassium 4.2 mmol/L (3.5-5.5); Sodium 141 mmol/L (135-145); Total Bilirubin 0.6 mg/dL (0.3-1.2); Total Protein 5.4 g/dL (6.2-8.2)
[2024-10-11 12:03] LABS: Glucose,Whole Blood 181 mg/dL (70-110)
--- NOTE | 2024-10-11 14:08 | P.PN ---
Subjective Progress Note Date: 10/11/24 Principal diagnosis: Klebsiella urinary tract infection multiple allergies Patient is a 84-year-old female with a past medical history significant for diabetes mellitus hypertension CVA TIA memory impairment history of recurrent UTI patient presented to hospital with generalized weakness urinary burning has been diagnosed with UTI urine positive for Klebsiella did have multiple allergies prompting this consultation. On today's evaluation that is 10/11/2024,the patient remains to be afebrile, patient is on room air not requiring supplemental oxygen and denies any shortness of breath no chest pain or cough.Patient denies having any nausea or vomiting, no abdominal pain and no diarrhea, mention urinary burning has improved. Patient white count 6.1, creatinine 0.9 urine with an Klebsiella that is sensitive to Cipro Objective - Vital Signs Vital signs: Vital Signs Temp 97.5 F L 10/11/24 07:00 Pulse 74 10/11/24 07:00 Resp 16 10/11/24 07:00 BP 117/79 10/11/24 07:00 Pulse Ox 96 10/11/24 07:00 FiO2 Intake & Output 10/10/24 10/11/24 10/11/24 18:59 06:59 18:59 Intake Total 354 Output Total 525 400 950 Balance -171 -400 -950 Intake: Oral 354 Output: Urine 525 400 950 - Exam GENERAL DESCRIPTION: An elderly female lying in bed in no distress RESPIRATORY SYSTEM: Unlabored breathing , decreased breath sounds at bases HEART: S1 S2 regular rate and rhythm , ABDOMEN: Soft , no tenderness EXTREMITIES: No edema feet - Labs CBC & Chem 7: 10/11/24 05:27 10/11/24 05:27 Labs: Abnormal Lab Results - Last 24 Hours (Table) 10/10/24 10/10/24 10/11/24 Range/Units 17:12 20:15 05:27 RBC 4.09 L (4.10-5.20) X 10*6/uL Hgb 11.3 L (12.0-15.0) g/dL Hct 36.7 L (37.2-46.3) % MCHC 30.8 L (32.0-37.0) g/dL Glucose (70-110) mg/dL POC Glucose (mg/dL) 198 H 299 H (70-110) mg/dL Calcium (8.7-10.3) mg/dL AST (13-35) U/L ALT (8-44) U/L Total Protein (6.2-8.2) g/dL Albumin (3.8-4.9) g/dL 10/11/24 10/11/24 10/11/24 Range/Units 05:27 05:40 12:02 RBC (4.10-5.20) X 10*6/uL Hgb (12.0-15.0) g/dL Hct (37.2-46.3) % MCHC (32.0-37.0) g/dL Glucose 171 H (70-110) mg/dL POC Glucose (mg/dL) 153 H 181 H (70-110) mg/dL Calcium 8.5 L (8.7-10.3) mg/dL AST 11 L (13-35) U/L ALT <5 L (8-44) U/L Total Protein 5.4 L (6.2-8.2) g/dL Albumin 3.6 L (3.8-4.9) g/dL Microbiology - Last 24 Hours (Table) 10/09/24 16:00 Urine Culture - Final Urine,Voided 10/07/24 22:55 Urine Culture - Final Urine,Voided Klebsiella pneumoniae Assessment and Plan (1) UTI (urinary tract infection) Status: Acute Code(s): N39.0 - URINARY TRACT INFECTION, SITE NOT SPECIFIED SNOMED Code(s): 41830540 (2) Allergy to multiple antibiotics Status: Acute Code(s): Z88.1 - ALLERGY STATUS TO OTHER ANTIBIOTIC AGENTS SNOMED Code(s): 205524727 Plan: 1patient presented hospital with weakness and did have a fall patient did have vitamin of urine positive UA concerning for symptomatic urinary tract infection with urine culture finalized with Klebsiella sensitive pathogen nursing staff did call the micro lab to confirm the pathogen is sensitive to ciprofloxacin, which was confirmed 2-patient seem to have shown clinical improvement we will continue with oral Cipro for 5 days on discharge discussed with the resident physician Dictation was produced using [employer] dictation software. please excuse any grammatical, word or spelling errors. Time with Patient: Less than 30
--- NOTE | 2024-10-11 17:12 | P.DS ---
Providers Date of admission: 10/08/24 00:00 Expected date of discharge: 10/11/24 Attending physician: Erik Mccauley Consults: 10/10/24 14:35 Consult Physician Routine Consulting Provider: Al Aldana Consult Reason/Comments: UTI Do you want consulting provider notified?: Yes Primary care physician: Stated None Hospital Course: Discharge diagnoses; #UTI #Lower abdominal pain #Lactic acidosis #Fall #Generalized weakness #Diabetes mellitus, type 2 # Essential hypertension #A-fib #Hyperlidemia #Hypothyroidism #GERD #Anxiety/Depression #Dementia Hospital course; Patient is 84-year-old female with dementia, A-fib on Eliquis, who presents with generalized weakness and fall. Patient is confused and is poor historian. Patient was home and while using toilet and fell due to progressive weakness. Unknown downtime. She she does endorse some lower abdominal pain. She is not sure if she has had dysuria. She uses wheelchair at baseline. She denies fever or chills, chest pain, shortness of breath, weakness. -Labs completed in ER significant for WBC 7.3, bicarb 18, creatinine 1.21, glucose 263, lactic acid 3.5 => 2.1, troponin negative, UA significant for turbid appearance, protein 2+, blood small, leukocyte esterase large, large RBC, WBC> 182 with many clumps, bacteria and mucus. -EKG done in the ER independently interpreted showed sinus bradycardia, heart rate of 58, no ST segment elevation or depression seen, no T-wave inversions seen. -Chest x-ray done independently interpreted in the ER showed bronchitis with pneumonitis, without consolidation or pleural effusion. During hospital stay patient was treated for UTI which urine culture was positive for Klebsiella. She was followed by ID during her stay. She was assessed by PT OT who determined she is a high risk for falls, and does require assistance to ambulate. Patient is discharged to home with home health in stable condition. She is to continue Cipro 500 mg twice daily for 5 days for treatment of UTI cystitis. And she can resume her regular home medication. She is to follow-up with her PCP. PHYSICAL EXAMINATION: GENERAL: The patient is alert to self HEENT: Pupils are round and equally reacting to light. EOMI. No scleral icterus. No conjunctival pallor. Normocephalic, atraumatic. No pharyngeal erythema. No thyromegaly. CARDIOVASCULAR: S1 and S2 present. No murmurs, rubs, or gallops. PULMONARY: Chest is clear to auscultation, no wheezing or crackles. ABDOMEN: Soft, nontender, nondistended, normoactive bowel sounds. No palpable organomegaly. MUSCULOSKELETAL: No joint swelling or deformity. EXTREMITIES: No cyanosis, clubbing, or pedal edema. NEUROLOGICAL: Gross neurological examination did not reveal any focal deficits. SKIN: No rashes. Dictation was produced using [employer] dictation software. please excuse any grammatical, word or spelling errors. Attestation I have seen and examined this patient with my resident , discussed the same with the resident/MANJINDER, and agree with the dictator's assessment and plan as written Dr. Jacky garrison Patient Condition at Discharge: Stable Plan - Discharge Summary Discharge Rx Participant: No New Discharge Prescriptions: New Ciprofloxacin HCl [Cipro] 500 mg PO BID 5 Days #10 tab Continue Loratadine 10 mg PO HS Ferrous Sulfate [Iron (65 MG Elemental)] 325 mg PO HS Escitalopram [Lexapro] 20 mg PO DAILY Atorvastatin [Lipitor] 40 mg PO HS Loperamide HCl [Imodium A-D] 2 mg PO QID PRN PRN Reason: Diarrhea Spiriva Respimat 1.25mcg/Actuation Mist 1 puff INHALATION RT-DAILY Losartan [Cozaar] 25 mg PO DAILY 30 Days #30 tab Pantoprazole [Protonix] 40 mg PO AC-BRKFST 30 Days #30 tab Cholecalciferol [Vitamin D3 (25 Mcg = 1000 Iu)] 50 mcg PO DAILY Insulin Glargine,Hum.rec.anlog [Lantus Solostar Pen] 24 units SQ DAILY Ipratropium-Albuterol Nebulize [Duoneb 0.5 mg-3 mg/3 ml Soln] 3 ml INHALATION RT-QID PRN PRN Reason: Shortness Of Breath Levothyroxine Sodium [Synthroid] 12.5 mcg PO AC-BRKFST Montelukast [Singulair] 10 mg PO HS Apixaban [Eliquis] 5 mg PO BID Budesonide-Formot 160-4.5 Mcg [Symbicort 160-4.5 Mcg Inhaler] 2 puff INHALATION RT-BID #1 each Thiamine [Vitamin B-1] 100 mg PO DAILY tab Lacosamide [Vimpat] 100 mg PO HS #4 tab dilTIAZem HCL [Tiazac] 180 mg PO DAILY Insulin Aspart [NovoLOG Flexpen] See Protocol SQ ACHS Insulin Glargine,Hum.rec.anlog [Lantus Solostar Pen] 16 units SQ HS Rosuvastatin [Crestor] 20 mg PO DAILY Discharge Medication List Apixaban [Eliquis] 5 mg PO BID 08/25/23 [History] Atorvastatin [Lipitor] 40 mg PO HS 08/25/23 [History] Escitalopram [Lexapro] 20 mg PO DAILY 08/25/23 [History] Ferrous Sulfate [Iron (65 MG Elemental)] 325 mg PO HS 08/25/23 [History] Levothyroxine Sodium [Synthroid] 12.5 mcg PO AC-BRKFST 08/25/23 [History] Loperamide HCl [Imodium A-D] 2 mg PO QID PRN 08/25/23 [History] Loratadine 10 mg PO HS 08/25/23 [History] Montelukast [Singulair] 10 mg PO HS 08/25/23 [History] Budesonide-Formot 160-4.5 Mcg [Symbicort 160-4.5 Mcg Inhaler] 2 puff INHALATION RT-BID #1 each 10/28/23 [Rx] Thiamine [Vitamin B-1] 100 mg PO DAILY tab 12/09/23 [Rx] Spiriva Respimat 1.25mcg/Actuation Mist 1 puff INHALATION RT-DAILY 05/10/24 [History] Losartan [Cozaar] 25 mg PO DAILY 30 Days #30 tab 05/14/24 [Rx] Pantoprazole [Protonix] 40 mg PO AC-BRKFST 30 Days #30 tab 05/14/24 [Rx] Lacosamide [Vimpat] 100 mg PO HS #4 tab 06/21/24 [Rx] Cholecalciferol [Vitamin D3 (25 Mcg = 1000 Iu)] 50 mcg PO DAILY 10/08/24 [History] Insulin Aspart [NovoLOG Flexpen] See Protocol SQ ACHS 10/08/24 [History] Insulin Glargine,Hum.rec.anlog [Lantus Solostar Pen] 16 units SQ HS 10/08/24 [History] Insulin Glargine,Hum.rec.anlog [Lantus Solostar Pen] 24 units SQ DAILY 10/08/24 [History] Ipratropium-Albuterol Nebulize [Duoneb 0.5 mg-3 mg/3 ml Soln] 3 ml INHALATION RT-QID PRN 10/08/24 [History] Rosuvastatin [Crestor] 20 mg PO DAILY 10/08/24 [History] dilTIAZem HCL [Tiazac] 180 mg PO DAILY 10/08/24 [History] Ciprofloxacin HCl [Cipro] 500 mg PO BID 5 Days #10 tab 10/11/24 [Rx] Follow up Appointment(s)/Referral(s): Vitaly Blandon [REFERRING] - As Needed (PCP: BARBI BECKER) [facility] Visiting Nurse, [NON-STAFF] - As Needed Patient Instructions/Handouts: Urinary Tract Infection in Women (DC) Discharge Disposition: TRANSFER TO SNF/ECF
== END 2024-10-11 13:43 ==
LOC: EC 21:02 → 6NMEDSUR 10-08
PROVIDERS: ADMIT Internal Medicine; ATTEND Internal Medicine
DX: N30.90 Cystitis, unspecified without hematuria (principal); B96.1 Klebsiella pneumoniae [K. pneumoniae] as the cause of diseases classified elsewhere; E87.20 Acidosis, unspecified; N17.9 Acute kidney failure, unspecified; E03.9 Hypothyroidism, unspecified; R53.1 Weakness; E11.9 Type 2 diabetes mellitus without complications; F03.93 Unspecified dementia, unspecified severity, with mood disturbance; F03.94 Unspecified dementia, unspecified severity, with anxiety; F32.A Depression, unspecified; F41.9 Anxiety disorder, unspecified; I10 Essential (primary) hypertension; I48.91 Unspecified atrial fibrillation; K21.9 Gastro-esophageal reflux disease without esophagitis; Z79.01 Long term (current) use of anticoagulants; Z79.51 Long term (current) use of inhaled steroids; Z79.890 Hormone replacement therapy; Z79.899 Other long term (current) drug therapy; Z86.73 Personal history of transient ischemic attack (TIA), and cerebral infarction without residual deficits; Z87.440 Personal history of urinary (tract) infections; Z87.891 Personal history of nicotine dependence; Z88.0 Allergy status to penicillin; Z88.1 Allergy status to other antibiotic agents; Z79.4 Long term (current) use of insulin
CPT/HCPCS: 96361 ×3; 96365 ×2; 96366 ×3; 99285; 36415; 94640 ×3; 93005; 97530; 97162; 97166; 85379; 80053 ×3; 82550; 83605 ×2; 83735; 84100; 84484; 85025 ×3; 85610; 85730; 81001 ×2; 87086 ×2; 87077; 87186; 83036; 84145; 71046; 76770; 74176; G0378 ×4; J0744 ×3

== ENCOUNTER 2024-10-29 13:23 | Emergency (ER) | payer MEDICARE ==
[2024-10-29 13:33] VITALS: PULSE 85; RESP 18; TEMP 98.1
--- NOTE | 2024-10-29 14:02 | ED ---
General Adult HPI - General Chief complaint: Urogenital Stated complaint: AMS,UTI Time Seen by Provider: 10/29/24 13:26 Source: EMS Mode of arrival: EMS Limitations: altered mental status - History of Present Illness Initial comments: Dictation was produced using [employer] dictation software. please excuse any grammatical, word or spelling errors. Chief Complaint: 84-year-old female presents to the emergency department with frequent UTIs and altered mental status History of Present Illness: Patient is 84-year-old female she is a poor historian she is brought in from home by EMS. Patient lives at home with her daughter. Patient provides some history states that she is here after her daughter called ambulance. Per nurse who received report from EMS patient has been confused she been having frequent UTIs since August. Patient denies any acute pain complaints The ROS documented in this emergency department record has been reviewed and con firmed by me. Those systems with pertinent positive or negative responses have been documented in the HPI. All other systems are other negative and/or noncontributory. - Related Data Home Medications Medication Instructions Recorded Confirmed Apixaban [Eliquis] 5 mg PO BID 08/25/23 10/08/24 Atorvastatin [Lipitor] 40 mg PO HS 08/25/23 10/08/24 Escitalopram [Lexapro] 20 mg PO DAILY 08/25/23 10/08/24 Ferrous Sulfate [Iron (65 MG 325 mg PO HS 08/25/23 10/08/24 Elemental)] Levothyroxine Sodium [Synthroid] 12.5 mcg PO AC-BRKFST 08/25/23 10/08/24 Loperamide HCl [Imodium A-D] 2 mg PO QID PRN 08/25/23 10/08/24 Loratadine 10 mg PO HS 08/25/23 10/08/24 Montelukast [Singulair] 10 mg PO HS 08/25/23 10/08/24 Spiriva Respimat 1.25mcg/Actuation 1 puff INHALATION RT-DAILY 05/10/24 10/08/24 Mist Cholecalciferol [Vitamin D3 (25 50 mcg PO DAILY 10/08/24 10/08/24 Mcg = 1000 Iu)] Insulin Aspart [NovoLOG Flexpen] See Protocol SQ ACHS 10/08/24 10/08/24 Insulin Glargine,Hum.rec.anlog 16 units SQ HS 10/08/24 10/08/24 [Lantus Solostar Pen] Insulin Glargine,Hum.rec.anlog 24 units SQ DAILY 10/08/24 10/08/24 [Lantus Solostar Pen] Ipratropium-Albuterol Nebulize 3 ml INHALATION RT-QID PRN 10/08/24 10/08/24 [Duoneb 0.5 mg-3 mg/3 ml Soln] Rosuvastatin [Crestor] 20 mg PO DAILY 10/08/24 10/08/24 dilTIAZem HCL [Tiazac] 180 mg PO DAILY 10/08/24 10/08/24 Previous Rx's Medication Instructions Recorded Budesonide-Formot 160-4.5 Mcg 2 puff INHALATION RT-BID #1 each 10/28/23 [Symbicort 160-4.5 Mcg Inhaler] Thiamine [Vitamin B-1] 100 mg PO DAILY tab 12/09/23 Losartan [Cozaar] 25 mg PO DAILY 30 Days #30 tab 05/14/24 Pantoprazole [Protonix] 40 mg PO AC-BRKFST 30 Days #30 tab 05/14/24 Lacosamide [Vimpat] 100 mg PO HS #4 tab 06/21/24 Ciprofloxacin HCl [Cipro] 500 mg PO BID 5 Days #10 tab 10/11/24 Allergies Allergy/AdvReac Type Severity Reaction Status Date / Time Penicillins Allergy Rash/Hives Verified 10/08/24 09:22 cefepime AdvReac Confusion Verified 10/08/24 09:22 Review of Systems ROS Statement: Those systems with pertinent positive or pertinent negative responses have been documented in the HPI. ROS Other: All systems not noted in ROS Statement are negative. Past Medical History Past Medical History: Atrial Fibrillation, CVA/TIA, Diabetes Mellitus, Hypertension, Memory Impairment Additional Past Medical History / Comment(s): UTI, falls History of Any Multi-Drug Resistant Organisms: VRE Date of last positivie culture/infection: 11/01/23 MDRO Source:: Urine Past Surgical History: Appendectomy Additional Past Surgical History / Comment(s): patient poor historian Past Anesthesia/Blood Transfusion Reactions: No Reported Reaction Past Psychological History: No Psychological Hx Reported Smoking Status: Never smoker Past Alcohol Use History: None Reported Past Drug Use History: None Reported - Past Family History Father History Unknown: Yes General Exam - General Exam Comments Initial Comments: PHYSICAL EXAM: General Impression: Alert and oriented x4/4, not in acute distress HEENT: Normocephalic atraumatic, extra-ocular movements intact, pupils equal and reactive to light bilaterally, mucous membranes moist. Cardiovascular: Heart regular rate and rhythm Chest: Able to complete full sentences, no retractions, no tachypnea Abdomen: abdomen soft, non-tender, non-distended, no organomegaly Musculoskeletal: Pulses present and equal in all extremities, no peripheral edema Motor: no focal deficits noted Neurological: CN II-XII grossly intact, no focal motor or sensory deficits noted Skin: Intact with no visualized rashes Psych: Normal affect and mood Limitations: altered mental status Course Vital Signs 10/29/24 10/29/24 13:25 15:06 Temperature 98.1 F Pulse Rate 85 85 Respiratory 18 18 Rate Blood Pressure 130/71 145/80 O2 Sat by Pulse 97 96 Oximetry EKG Findings - EKG Comments: EKG Findings:: My EKG interpretation: Ventricular rate 74, sinus rhythm,. 146, QRS 86, QTc 4 3. No NM prolongation, no QTC prolongation, no ST or T-wave changes noted. Overall, this EKG is unremarkable Medical Decision Making - Medical Decision Making Was pt. sent in by a medical professional or institution (, PA, IN STORE MARKETING ASSOCIATE, urgent care, hospital, or skilled nursing...) When possible be specific @ -No Did you speak to anyone other than the patient for history (EMS, parent, family, police, friend...)? What history was obtained from this source @ -No Did you review nursing and triage notes (agree or disagree)? Why? @ -I reviewed and agree with nursing and triage notes Were old charts reviewed (outside hosp., previous admission, EMS record, old EKG, old radiological studies, urgent care reports/EKG's, skilled nursing records)? Report findings @ -No old charts were reviewed Differential Diagnosis (chest pain, altered mental status, abdominal pain women, abdominal pain men, vaginal bleeding, musculoskeletal, weakness, fever, dyspnea, syncope, headache, dizziness, GI bleed, back pain, seizure, CVA, palpatations, mental health)? @ -Differential Altered Mental Status: Hypoglycemia, DKA, hypercapnia, ETOH, overdose, CO poisoning, trauma, myxedema coma, HTN encephalopathy, infection, encephalitis, psychosis, intercranial hemorrhage, hepatic encephalopathy, meningitis, CVA, this is not meant to be an all-inclusive list EKG interpreted by me (3pts min.). @ -See above X-rays interpreted by me (1pt min.). @ -None done CT interpreted by me (1pt min.). @ -CT brain shows no acute processes U/S interpreted by me (1pt. min.). @ -None done What testing was considered but not performed or refused? (CT, X-rays, U/S, labs)? Why? @ -None What meds were considered but not given or refused? Why? @ -None Was smoking cessation discussed for >3mins.? @ -No Were there social determinants of health that impacted care today? How? (Homelessness, low income, unemployed, alcoholism, drug addiction, transportation, low edu. Level, literacy, decrease access to med. care, half-way, rehab)? @ -No Was there de-escalation of care discussed even if they declined (Discuss DNR or withdrawal of care, Hospice)? DNR status @ -No What co-morbidities impacted this encounter? (DM, HTN, Smoking, COPD, CAD, Cancer, CVA, ARF, Chemo, Hep., AIDS, mental health diagnosis, sleep apnea, morbid obesity)? @ -None Was patient admitted / discharged? Hospital course, mention meds given and route, prescriptions, significant lab abnormalities, going to OR and other pertinent info. @ -84-year-old female presents to the emergency department for altered mental status and concern of UTI. Vital signs upon arrival within acceptable limits. Patient well-appearing at the bedside. No focal neurologic deficits noted at the bedside. Patient alert and oriented x 4 does not have any complaints. La boratory evaluation is unremarkable. CT brain is negative. Urinalysis negative. Patient observed emergency department for approximate 2 hours and 20 minutes. She did complain of some urinary retention Dow catheter was placed. Patient will be discharged with outpatient referral to urology Did you discuss the management of the patient with other professionals (professionals i.e. , PA, IN STORE MARKETING ASSOCIATE, lab, RT, psych nurse, group social worker, drinking water technician, teacher, sales and service officer, case manager specialist)? Give summary @ -No Was critical care preformed (if so, how long)? @ -No Undiagnosed new problem with uncertain prognosis? @ -No Drug Therapy requiring intensive monitoring for toxicity (Heparin, Nitro, Insulin, Cardizem)? @ -No Were any procedures done? @ -No Diagnosis/symptom? Acute, or Chronic, or Acute on Chronic? Uncomplicated (without systemic symptoms) or Complicated (systemic symptoms)? @ -Urinary retention, altered mental status Side effects of treatment? @ -No Exacerbation, Progression, or Severe Exacerbation? @ -No Poses a threat to life or bodily function? How? (Chest pain, [place], [place], pneumonia, PE, COPD, DKA, ARF, appy, cholecystitis, CVA, Diverticulitis, Homicidal, Suicidal, threat to staff... and all critical care pts) @ -No - Lab Data Result diagrams: 10/29/24 14:14 10/29/24 14:14 Lab Results 10/29/24 10/29/24 10/29/24 Range/Units 14:14 14:14 15:06 WBC 7.5 (3.8-10.6) k/uL RBC 4.29 (3.80-5.40) m/uL Hgb 12.5 (11.4-16.0) gm/dL Hct 37.5 (34.0-46.0) % MCV 87.5 (80.0-100.0) fL MCH 29.2 (25.0-35.0) pg MCHC 33.4 (31.0-37.0) g/dL RDW 14.1 (11.5-15.5) % Plt Count 196 (150-450) k/uL MPV 8.6 Neutrophils % 67 % Lymphocytes % 22 % Monocytes % 7 % Eosinophils % 2 % Basophils % 1 % Neutrophils # 5.0 (1.3-7.7) k/uL Lymphocytes # 1.7 (1.0-4.8) k/uL Monocytes # 0.6 (0-1.0) k/uL Eosinophils # 0.1 (0-0.7) k/uL Basophils # 0.1 (0-0.2) k/uL Sodium 136 L (137-145) mmol/L Potassium 4.2 (3.5-5.1) mmol/L Chloride 101 (98-107) mmol/L Carbon Dioxide 25 (22-30) mmol/L Anion Gap 10 mmol/L BUN 11 (7-17) mg/dL Creatinine 0.86 (0.52-1.04) mg/dL Est GFR (CKD-EPI)AfAm 72 (>60 ml/min/1.73 sqM) Est GFR (CKD-EPI)NonAf 63 (>60 ml/min/1.73 sqM) Glucose 181 H (74-99) mg/dL Calcium 9.2 (8.4-10.2) mg/dL Total Bilirubin 1.0 (0.2-1.3) mg/dL AST 14 (14-36) U/L ALT 9 (4-34) U/L Alkaline Phosphatase 101 (38-126) U/L Total Protein 6.1 L (6.3-8.2) g/dL Albumin 3.6 (3.5-5.0) g/dL Urine Color Colorless Urine Appearance Clear (Clear) Urine pH 6.5 (5.0-8.0) Ur Specific [place] 1.006 (1.001-1.035) Urine Protein Negative (Negative) Urine Glucose (UA) Negative (Negative) Urine Ketones Negative (Negative) Urine Blood Negative (Negative) Urine Nitrite Negative (Negative) Urine Bilirubin Negative (Negative) Urine Urobilinogen <2.0 (<2.0) mg/dL Ur Leukocyte Esterase Moderate H (Negative) Urine RBC 1 (0-5) /hpf Urine WBC 3 (0-5) /hpf Ur Squamous Epith Cells <1 (0-4) /hpf Urine Mucus Rare H (None) /hpf Disposition Clinical Impression: Urinary retention Disposition: HOME SELF-CARE Condition: Fair Instructions (If sedation given, give patient instructions): Acute Urinary Retention in Women (ED) Is patient prescribed a controlled substance at d/c from ED?: No Referrals: Troy Collado MD [STAFF PHYSICIAN] - 1-2 days Time of Disposition: 15:46
[2024-10-29 14:23] LABS: Basophils # (A) 0.1 k/uL (0-0.2); Basophils % (A) 1 %; Eosinophils # (A) 0.1 k/uL (0-0.7); Eosinophils % (A) 2 %; HCT 37.5 % (34.0-46.0); HGB 12.5 gm/dL (11.4-16.0); Lymphocytes # (A) 1.7 k/uL (1.0-4.8); Lymphocytes % (A) 22 %; MCH 29.2 pg (25.0-35.0); MCHC 33.4 g/dL (31.0-37.0); MCV 87.5 fL (80.0-100.0); Mean Platelet Volume 8.6; Monocytes # (A) 0.6 k/uL (0-1.0); Monocytes % (A) 7 %; Neutrophils % (A) 67 %; Platelet Count 196 k/uL (150-450); RBC 4.29 m/uL (3.80-5.40); RDW 14.1 % (11.5-15.5); WBC 7.5 k/uL (3.8-10.6)
[2024-10-29 14:38] LABS: ALT 9 U/L (4-34); AST 14 U/L (14-36); African American GFR (CKD) 72 (>60 ml/min/1.73 sqM); Albumin 3.6 g/dL (3.5-5.0); Alkaline Phosphatase 101 U/L (38-126); Anion Gap 10 mmol/L; Blood Urea Nitrogen 11 mg/dL (7-17); Calcium 9.2 mg/dL (8.4-10.2); Carbon Dioxide 25 mmol/L (22-30); Chloride 101 mmol/L (98-107); Glucose 181 mg/dL (74-99); Non-African American GFR(CKD) 63 (>60 ml/min/1.73 sqM); Potassium 4.2 mmol/L (3.5-5.1); Sodium 136 mmol/L (137-145); Total Protein 6.1 g/dL (6.3-8.2)
--- NOTE | 2024-10-29 14:46 | CT ---
EXAMINATION TYPE: CT brain wo con CT DLP: 1149.4 mGycm, Automated exposure control for dose reduction was used. DATE OF EXAM: 10/29/2024 2:37 PM COMPARISON: CT brain 08/12/2024, 05/10/2024, 11/27/2023, 11/26/2023, 11/21/2023, 10/31/2023, MRI brain 11/28 CLINICAL INDICATION:Female, 84 years old with history of ams, Altered mental status. TECHNIQUE: Brain: Multiple axial CT images of the brain were obtained without IV contrast. . Coronal and sagitta l reformats reviewed. FINDINGS: Brain: Extra-axial spaces: No abnormal extra-axial fluid collections. Ventricular system: Within normal limits Cerebral parenchyma: No acute intraparenchymal hemorrhage or mass effect. The arroyo-white junction is well differentiated. Confluent hypoattenuating areas are seen within the periventricular subcortical white matter. Cerebellum: Unremarkable. Mass effect: No evidence of midline shift. Intracranial vasculature: Atherosclerotic calcifications of the intracranial vessels. Soft tissues: Normal. Calvarium/osseous structures: No depressed skull fracture. Benign hyperostosis frontalis noted. Paranasal sinuses and mastoid air cells: Clear Visualized orbits: Orbital contents are intact. IMPRESSION: 1. No acute intracranial process. 2. Moderate nonspecific white matter changes, likely secondary to chronic small vessel ischemic disea se. [facility], , 10/29/2024 2:44 PM
[2024-10-29 15:07] VITALS: BP 145/80
[2024-10-29 15:13] LABS: Appearance,Urine Clear (Clear); Bilirubin,Urine Negative (Negative); Blood,Urine Negative (Negative); Color,Urine Colorless; Glucose,Urine (UA) Negative (Negative); Ketones,Urine Negative (Negative); Leukocyte Esterase,Urine Moderate (Negative); Mucus,Urine Rare /hpf; Nitrite,Urine Negative (Negative); PH, Urine 6.5 (5.0-8.0); Protein,Urine Negative (Negative); RBC,Urine 1 /hpf (0-5); Specific Gravity,Urine 1.006 (1.001-1.035); Squamous Epithelial Cell,Urine <1 /hpf (0-4); Urobilinogen,Urine <2.0 mg/dL (<2.0); WBC,Urine 3 /hpf (0-5)
== END 2024-10-29 19:03 | disposition home or self-care (01) ==
LOC: EC 13:23
DX: R33.9 Retention of urine, unspecified (principal); Z88.0 Allergy status to penicillin; Z88.8 Allergy status to other drugs, medicaments and biological substances
CPT/HCPCS: 36415; 70450; 80053; 81001; 85025; 93005; 99285

== ENCOUNTER 2024-11-04 13:21 | Emergency (ER) | payer MEDICARE ==
--- NOTE | 2024-11-04 13:42 | ED ---
General Adult HPI - General Chief complaint: Dizziness Stated complaint: abd pain, dizzy Time Seen by Provider: 11/04/24 13:23 Source: patient, EMS Mode of arrival: EMS Limitations: no limitations - History of Present Illness Initial comments: Dictation was produced using [employer] dictation software. please excuse any grammatical, word or spelling errors. Chief Complaint: 84-year-old female with dizziness History of Present Illness: Patient is an 84-year-old female well-known to the emergency department for frequent UTIs dizziness. States that she has been feeling dizzy today. States that she feels dizzy whenever she tries to move. Denies sensation of the room spinning. Denies any vision changes. No numbness tingling paresthesias to the extremities. Denies any pain complaints. Patient has chronic indwelling Dow catheter The ROS documented in this emergency department record has been reviewed and confirmed by me. Those systems with pertinent positive or negative responses have been documented in the HPI. All other systems are other negative and/or noncontributory. - Related Data Home Medications Medication Instructions Recorded Confirmed Apixaban [Eliquis] 5 mg PO BID 08/25/23 10/08/24 Atorvastatin [Lipitor] 40 mg PO HS 08/25/23 10/08/24 Escitalopram [Lexapro] 20 mg PO DAILY 08/25/23 10/08/24 Ferrous Sulfate [Iron (65 MG 325 mg PO HS 08/25/23 10/08/24 Elemental)] Levothyroxine Sodium [Synthroid] 12.5 mcg PO AC-BRKFST 08/25/23 10/08/24 Loperamide HCl [Imodium A-D] 2 mg PO QID PRN 08/25/23 10/08/24 Loratadine 10 mg PO HS 08/25/23 10/08/24 Montelukast [Singulair] 10 mg PO HS 08/25/23 10/08/24 Spiriva Respimat 1.25mcg/Actuation 1 puff INHALATION RT-DAILY 05/10/24 10/08/24 Mist Cholecalciferol [Vitamin D3 (25 50 mcg PO DAILY 10/08/24 10/08/24 Mcg = 1000 Iu)] Insulin Aspart [NovoLOG Flexpen] See Protocol SQ ACHS 10/08/24 10/08/24 Insulin Glargine,Hum.rec.anlog 16 units SQ HS 10/08/24 10/08/24 [Lantus Solostar Pen] Insulin Glargine,Hum.rec.anlog 24 units SQ DAILY 10/08/24 10/08/24 [Lantus Solostar Pen] Ipratropium-Albuterol Nebulize 3 ml INHALATION RT-QID PRN 10/08/24 10/08/24 [Duoneb 0.5 mg-3 mg/3 ml Soln] Rosuvastatin [Crestor] 20 mg PO DAILY 10/08/24 10/08/24 dilTIAZem HCL [Tiazac] 180 mg PO DAILY 10/08/24 10/08/24 Previous Rx's Medication Instructions Recorded Budesonide-Formot 160-4.5 Mcg 2 puff INHALATION RT-BID #1 each 10/28/23 [Symbicort 160-4.5 Mcg Inhaler] Thiamine [Vitamin B-1] 100 mg PO DAILY tab 12/09/23 Losartan [Cozaar] 25 mg PO DAILY 30 Days #30 tab 05/14/24 Pantoprazole [Protonix] 40 mg PO AC-BRKFST 30 Days #30 tab 05/14/24 Lacosamide [Vimpat] 100 mg PO HS #4 tab 06/21/24 Ciprofloxacin HCl [Cipro] 500 mg PO BID 5 Days #10 tab 10/11/24 Meclizine [Antivert] 25 mg PO TID PRN #15 tab 11/04/24 Allergies Allergy/AdvReac Type Severity Reaction Status Date / Time Penicillins Allergy Rash/Hives Verified 11/04/24 13:33 cefepime AdvReac Confusion Verified 11/04/24 13:33 Sulfa (Sulfonamide AdvReac Unknown Verified 11/04/24 13:34 Antibiotics) Review of Systems ROS Statement: Those systems with pertinent positive or pertinent negative responses have been documented in the HPI. ROS Other: All systems not noted in ROS Statement are negative. Past Medical History Past Medical History: Atrial Fibrillation, CVA/TIA, Diabetes Mellitus, Hypertension, Memory Impairment Additional Past Medical History / Comment(s): UTI, falls History of Any Multi-Drug Resistant Organisms: VRE Date of last positivie culture/infection: 11/01/23 MDRO Source:: Urine Past Surgical History: Appendectomy Additional Past Surgical History / Comment(s): patient poor historian Past Anesthesia/Blood Transfusion Reactions: No Reported Reaction Past Psychological History: No Psychological Hx Reported Smoking Status: Never smoker Past Alcohol Use History: None Reported Past Drug Use History: None Reported - Past Family History Father History Unknown: Yes General Exam - General Exam Comments Initial Comments: PHYSICAL EXAM: General Impression: Alert and oriented x3, not in acute distress HEENT: Normocephalic atraumatic, extra-ocular movements intact, pupils equal and reactive to light bilaterally, mucous membranes moist. Cardiovascular: Heart regular rate and rhythm Chest: Able to complete full sentences, no retractions, no tachypnea Abdomen: abdomen soft, non-tender, non-distended, no organomegaly Musculoskeletal: Pulses present and equal in all extremities, no peripheral edema Motor: no focal deficits noted Neurological: CN II-XII grossly intact, no focal motor or sensory deficits noted Skin: Intact with no visualized rashes Psych: Normal affect and mood Limitations: no limitations Course Vital Signs 11/04/24 11/04/24 13:23 14:32 Temperature 98.4 F 98 F Pulse Rate 75 80 Respiratory 16 18 Rate Blood Pressure 145/84 134/93 O2 Sat by Pulse 96 97 Oximetry Medical Decision Making - Medical Decision Making Was pt. sent in by a medical professional or institution ([facility], CURRICULUM AND ASSESSMENT DIRECTOR, urgent care, hospital, or shelter...) When possible be specific @ -No Did you speak to anyone other than the patient for history (EMS, parent, family, police, friend...)? What history was obtained from this source @ -No Did you review nursing and triage notes (agree or disagree)? Why? @ -I reviewed and agree with nursing and triage notes Were old charts reviewed (outside hosp., previous admission, EMS record, old EKG, old radiological studies, urgent care reports/EKG's, shelter records)? Report findings @ -No old charts were reviewed Differential Diagnosis (chest pain, altered mental status, abdominal pain women, abdominal pain men, vaginal bleeding, musculoskeletal, weakness, fever, dyspnea, syncope, headache, dizziness, GI bleed, back pain, seizure, CVA, palpatations, mental health)? @ -Differential Dizziness: Benign paroxysmal positional Vertigo, Meniere's disease, otitis media, acoustic neuroma, vertebrobasilar insufficiency, cerebellar stroke, encephalitis, hypovolemic, arrhythmia, coronary artery syndrome, anemia, this is not meant to be an all-inclusive list EKG interpreted by me (3pts min.). @ -My EKG interpretation: Ventricular rate 73, sinus rhythm,. 194, QRS 81, QTc 405. No [place] prolongation, no QTC prolongation, no ST or T-wave changes noted. EKG compared to default value showing no changes. Overall, this EKG is unremarkable X-rays interpreted by me (1pt min.). @ -None done CT interpreted by me (1pt min.). @ -None done U/S interpreted by me (1pt. min.). @ -None done What testing was considered but not performed or refused? (CT, X-rays, U/S, labs)? Why? @ -None What meds were considered but not given or refused? Why? @ -None Was smoking cessation discussed for >3mins.? @ -No Were there social determinants of health that impacted care today? How? (Homelessness, low income, unemployed, alcoholism, drug addiction, transportation, low edu. Level, literacy, decrease access to med. care, [facility], rehab)? @ -No Was there de-escalation of care discussed even if they declined (Discuss DNR or withdrawal of care, Hospice)? DNR status @ -No What co-morbidities impacted this encounter? (DM, HTN, Smoking, COPD, CAD, Cancer, CVA, ARF, Chemo, Hep., AIDS, mental health diagnosis, sleep apnea, morb id obesity)? @ -None Was patient admitted / discharged? Hospital course, mention meds given and rou te, prescriptions, significant lab abnormalities, going to OR and other pertinent info. @ -84-year-old female presents to the emergency department for dizziness. States that her symptoms are only triggered by movement. Vital signs stable. Physical examination is benign. Patient denies any symptoms at rest. Clinical presentation consistent with benign positional vertigo. Patient given sympto matic medications. Laboratory evaluation is unremarkable. Patient discharged advised follow-up with primary care doctor. Reevaluated at 2:51 PM found to be stable to condition. Did you discuss the management of the patient with other professionals (professionals i.e. , PA, CURRICULUM AND ASSESSMENT DIRECTOR, lab, RT, psych nurse, director of social media marketing, news librarian, teacher, executive vice president and chief financial officer, counter caser)? Give summary @ -No Was critical care preformed (if so, how long)? @ -No Undiagnosed new problem with uncertain prognosis? @ -No Drug Therapy requiring intensive monitoring for toxicity (Heparin, Nitro, Insulin, Cardizem)? @ -No Were any procedures done? @ -No Diagnosis/symptom? Acute, or Chronic, or Acute on Chronic? Uncomplicated (without systemic symptoms) or Complicated (systemic symptoms)? @ -Dizziness Side effects of treatment? @ -No Exacerbation, Progression, or Severe Exacerbation? @ -No Poses a threat to life or bodily function? How? (Chest pain, USA, [place], pneumonia, PE, COPD, DKA, ARF, appy, cholecystitis, CVA, Diverticulitis, Homicidal, Suicidal, threat to staff... and all critical care pts) @ -No - Lab Data Result diagrams: 11/04/24 13:51 11/04/24 13:51 Lab Results 11/04/24 11/04/24 11/04/24 Range/Units 13:51 13:51 13:51 WBC 9.2 (3.8-10.6) k/uL RBC 4.34 (3.80-5.40) m/uL Hgb 12.7 (11.4-16.0) gm/dL Hct 37.9 (34.0-46.0) % MCV 87.2 (80.0-100.0) fL MCH 29.3 (25.0-35.0) pg MCHC 33.6 (31.0-37.0) g/dL RDW 14.0 (11.5-15.5) % Plt Count 190 (150-450) k/uL MPV 8.8 Neutrophils % 88 % Lymphocytes % 6 % Monocytes % 3 % Eosinophils % 2 % Basophils % 0 % Neutrophils # 8.0 H (1.3-7.7) k/uL Lymphocytes # 0.6 L (1.0-4.8) k/uL Monocytes # 0.3 (0-1.0) k/uL Eosinophils # 0.2 (0-0.7) k/uL Basophils # 0.0 (0-0.2) k/uL Sodium 136 L (137-145) mmol/L Potassium 4.3 (3.5-5.1) mmol/L Chloride 104 (98-107) mmol/L Carbon Dioxide 20 L (22-30) mmol/L Anion Gap 12 mmol/L BUN 14 (7-17) mg/dL Creatinine 0.90 (0.52-1.04) mg/dL Est GFR (CKD-EPI)AfAm 68 (>60 ml/min/1.73 sqM) Est GFR (CKD-EPI)NonAf 59 (>60 ml/min/1.73 sqM) Glucose 168 H (74-99) mg/dL Calcium 8.8 (8.4-10.2) mg/dL Total Bilirubin 0.8 (0.2-1.3) mg/dL AST 17 (14-36) U/L ALT 10 (4-34) U/L Alkaline Phosphatase 96 (38-126) U/L Total Protein 6.7 (6.3-8.2) g/dL Albumin 3.8 (3.5-5.0) g/dL Urine Color Yellow Urine Appearance Cloudy H (Clear) Urine pH 6.0 (5.0-8.0) Ur Specific [place] 1.026 (1.001-1.035) Urine Protein Trace H (Negative) Urine Glucose (UA) Negative (Negative) Urine Ketones Negative (Negative) Urine Blood Negative (Negative) Urine Nitrite Negative (Negative) Urine Bilirubin Negative (Negative) Urine Urobilinogen <2.0 (<2.0) mg/dL Ur Leukocyte Esterase Moderate H (Negative) Urine RBC 8 H (0-5) /hpf Urine WBC 14 H (0-5) /hpf Ur Squamous Epith Cells 3 (0-4) /hpf Urine Bacteria Rare H (None) /hpf Hyaline Casts 2 (0-2) /lpf Urine Mucus Many H (None) /hpf Disposition Clinical Impression: Dizziness Disposition: HOME SELF-CARE Condition: Good Instructions (If sedation given, give patient instructions): Dizziness (ED) Prescriptions: Meclizine [Antivert] 25 mg PO TID PRN #15 tab PRN Reason: dizziness Is patient prescribed a controlled substance at d/c from ED?: No Referrals: None,Stated [Primary Care Provider] - 1-2 days Time of Disposition: 14:51
[2024-11-04] MEDS: SODIUM CHLORIDE 0.9% 1,000 ML IV STA (13:51)
[2024-11-04 14:02] LABS: Basophils % (A) 0 %; Eosinophils # (A) 0.2 k/uL (0-0.7); Eosinophils % (A) 2 %; HCT 37.9 % (34.0-46.0); HGB 12.7 gm/dL (11.4-16.0); Lymphocytes # (A) 0.6 k/uL (1.0-4.8); Lymphocytes % (A) 6 %; MCH 29.3 pg (25.0-35.0); MCHC 33.6 g/dL (31.0-37.0); MCV 87.2 fL (80.0-100.0); Mean Platelet Volume 8.8; Monocytes # (A) 0.3 k/uL (0-1.0); Monocytes % (A) 3 %; Neutrophils % (A) 88 %; Platelet Count 190 k/uL (150-450); RBC 4.34 m/uL (3.80-5.40); WBC 9.2 k/uL (3.8-10.6)
[2024-11-04 14:10] LABS: Appearance,Urine Cloudy (Clear); Bacteria,Urine Rare /hpf; Bilirubin,Urine Negative (Negative); Blood,Urine Negative (Negative); Color,Urine Yellow; Glucose,Urine (UA) Negative (Negative); Hyaline Casts,Urine 2 /lpf (0-2); Ketones,Urine Negative (Negative); Leukocyte Esterase,Urine Moderate (Negative); Mucus,Urine Many /hpf; Nitrite,Urine Negative (Negative); Protein,Urine Trace (Negative); RBC,Urine 8 /hpf (0-5); Specific Gravity,Urine 1.026 (1.001-1.035); Squamous Epithelial Cell,Urine 3 /hpf (0-4); Urobilinogen,Urine <2.0 mg/dL (<2.0); WBC,Urine 14 /hpf (0-5)
[2024-11-04 14:12] LABS: ALT 10 U/L (4-34); AST 17 U/L (14-36); African American GFR (CKD) 68 (>60 ml/min/1.73 sqM); Albumin 3.8 g/dL (3.5-5.0); Alkaline Phosphatase 96 U/L (38-126); Anion Gap 12 mmol/L; Blood Urea Nitrogen 14 mg/dL (7-17); Calcium 8.8 mg/dL (8.4-10.2); Carbon Dioxide 20 mmol/L (22-30); Chloride 104 mmol/L (98-107); Glucose 168 mg/dL (74-99); Non-African American GFR(CKD) 59 (>60 ml/min/1.73 sqM); Potassium 4.3 mmol/L (3.5-5.1); Sodium 136 mmol/L (137-145); Total Bilirubin 0.8 mg/dL (0.2-1.3); Total Protein 6.7 g/dL (6.3-8.2)
[2024-11-04] MEDS: MECLIZINE 12.5 MG TAB PO STA (14:25)
[2024-11-04] MEDS: METOCLOPRAMIDE 5 MG/ML 2 ML VIAL IVP STA (14:26)
[2024-11-04 14:34] VITALS: RESP 18; TEMP 98
[2024-11-04 16:28] VITALS: BP 132/79; PULSE 90
[2024-11-07 17:07] LABS: Glucose,Whole Blood 154 mg/dL (70-110)
[2024-11-07 20:38] LABS: Glucose,Whole Blood 198 mg/dL (70-110)
== END 2024-11-04 16:30 | disposition home or self-care (01) ==
LOC: EC 13:21
DX: R42 Dizziness and giddiness (principal); Z86.73 Personal history of transient ischemic attack (TIA), and cerebral infarction without residual deficits; Z88.2 Allergy status to sulfonamides; Z88.0 Allergy status to penicillin; Z88.1 Allergy status to other antibiotic agents
CPT/HCPCS: 36415; 93005; 80053; 85025; 81001; 87086; 87077; 87186; 99284; 96374; 96361; J2765

== ENCOUNTER 2024-11-06 11:36 | Observation (INO) | payer MEDICARE ==
--- NOTE | 2024-11-06 12:02 | ED ---
General Adult HPI - General Chief complaint: Nausea/Vomiting/Diarrhea Stated complaint: flu like symptoms Time Seen by Provider: 11/06/24 11:47 Source: EMS Mode of arrival: EMS - History of Present Illness Initial comments: Dictation was produced using [employer] dictation software. please excuse any grammatical, word or spelling errors. Chief Complaint: 84-year-old female presents emergency department for lethargy History of Present Illness: Patient is 84-year-old female this is her third visit here in the last 8 days. Patient states that daughter called EMS. Patient has been lethargic for the last couple days has been having diarrhea. Patient has been feeling so weak that she would still herself. Patient has minimal assistance at home. Denies any fever. Patient states she has not eaten the last 2 days due to some nausea and vomiting. Denies any fevers. The ROS documented in this emergency department record has been reviewed and confirmed by me. Those systems with pertinent positive or negative responses have been documented in the HPI. All other systems are other negative and/or noncontributory. - Related Data Home Medications Medication Instructions Recorded Confirmed Apixaban [Eliquis] 5 mg PO BID 08/25/23 11/06/24 Atorvastatin [Lipitor] 40 mg PO HS 08/25/23 11/06/24 Escitalopram [Lexapro] 20 mg PO DAILY 08/25/23 11/06/24 Ferrous Sulfate [Iron (65 MG 325 mg PO HS 08/25/23 11/06/24 Elemental)] Levothyroxine Sodium [Synthroid] 12.5 mcg PO AC-BRKFST 08/25/23 11/06/24 Loperamide HCl [Imodium A-D] 2 mg PO QID PRN 08/25/23 11/06/24 Loratadine 10 mg PO HS 08/25/23 11/06/24 Montelukast [Singulair] 10 mg PO HS 08/25/23 11/06/24 Spiriva Respimat 1.25mcg/Actuation 1 puff INHALATION RT-DAILY 05/10/24 11/06/24 Mist Cholecalciferol [Vitamin D3 (25 50 mcg PO DAILY 10/08/24 11/06/24 Mcg = 1000 Iu)] Insulin Aspart [NovoLOG Flexpen] See Protocol SQ ACHS 10/08/24 11/06/24 Insulin Glargine,Hum.rec.anlog 16 units SQ HS 10/08/24 11/06/24 [Lantus Solostar Pen] Insulin Glargine,Hum.rec.anlog 24 units SQ DAILY 10/08/24 11/06/24 [Lantus Solostar Pen] Ipratropium-Albuterol Nebulize 3 ml INHALATION RT-QID PRN 10/08/24 11/06/24 [Duoneb 0.5 mg-3 mg/3 ml Soln] Rosuvastatin [Crestor] 20 mg PO DAILY 10/08/24 11/06/24 dilTIAZem HCL [Tiazac] 180 mg PO DAILY 10/08/24 11/06/24 Estradiol Cream [Estrace Cream 1 gm VAGINAL DIRECTED 11/06/24 11/06/24 0.01%] Previous Rx's Medication Instructions Recorded Budesonide-Formot 160-4.5 Mcg 2 puff INHALATION RT-BID #1 each 10/28/23 [Symbicort 160-4.5 Mcg Inhaler] Thiamine [Vitamin B-1] 100 mg PO DAILY tab 12/09/23 Losartan [Cozaar] 25 mg PO DAILY 30 Days #30 tab 05/14/24 Pantoprazole [Protonix] 40 mg PO AC-BRKFST 30 Days #30 tab 05/14/24 Lacosamide [Vimpat] 100 mg PO HS #4 tab 06/21/24 Meclizine [Antivert] 25 mg PO TID PRN #15 tab 11/04/24 Allergies Allergy/AdvReac Type Severity Reaction Status Date / Time Penicillins Allergy Rash/Hives Verified 11/06/24 12:49 cefepime AdvReac Confusion Verified 11/06/24 12:49 Sulfa (Sulfonamide AdvReac Unknown Verified 11/06/24 12:49 Antibiotics) Review of Systems ROS Statement: Those systems with pertinent positive or pertinent negative responses have been documented in the HPI. ROS Other: All systems not noted in ROS Statement are negative. Past Medical History Past Medical History: Atrial Fibrillation, CVA/TIA, Diabetes Mellitus, Hypertension, Memory Impairment Additional Past Medical History / Comment(s): UTI, falls History of Any Multi-Drug Resistant Organisms: VRE Date of last positivie culture/infection: 11/01/23 MDRO Source:: Urine Past Surgical History: Appendectomy Additional Past Surgical History / Comment(s): patient poor historian Past Anesthesia/Blood Transfusion Reactions: No Reported Reaction Past Psychological History: No Psychological Hx Reported Smoking Status: Never smoker Past Alcohol Use History: None Reported Past Drug Use History: None Reported - Past Family History Father History Unknown: Yes General Exam - General Exam Comments Initial Comments: PHYSICAL EXAM: General Impression: Alert and oriented x3, smells of stool HEENT: Normocephalic atraumatic, extra-ocular movements intact, pupils equal and reactive to light bilaterally, dry mucous membranes Cardiovascular: Heart regular rate and rhythm Chest: Able to complete full sentences, no retractions, no tachypnea Abdomen: abdomen soft, non-tender, non-distended, no organomegaly Musculoskeletal: Pulses present and equal in all extremities, no peripheral edema Motor: no focal deficits noted Neurological: CN II-XII grossly intact, no focal motor or sensory deficits noted Skin: Intact with no visualized rashes Psych: Normal affect and mood Course Vital Signs 11/06/24 11:39 Temperature 98.5 F Pulse Rate 91 Respiratory 16 Rate Blood Pressure 148/85 O2 Sat by Pulse 96 Oximetry EKG Findings - EKG Comments: EKG Findings:: My EKG interpretation: Ventricular rate 90, sinus rhythm,. 176, QRS 96, QTc 410. No [place] prolongation, no QTC prolongation, no ST or T-wave changes noted. Overall, this EKG is unremarkable Medical Decision Making - Medical Decision Making Was pt. sent in by a medical professional or institution (, PA, ARTIFICIAL PLASTIC EYE MAKER, urgent care, hospital, or care home...) When possible be specific @ -No Did you speak to anyone other than the patient for history (EMS, parent, family, police, friend...)? What history was obtained from this source @ -No Did you review nursing and triage notes (agree or disagree)? Why? @ -I reviewed and agree with nursing and triage notes Were old charts reviewed (outside hosp., previous admission, EMS record, old EKG, old radiological studies, urgent care reports/EKG's, care home records)? Report findings @ -No old charts were reviewed Differential Diagnosis (chest pain, altered mental status, abdominal pain women, abdominal pain men, vaginal bleeding, musculoskeletal, weakness, fever, dyspnea, syncope, headache, dizziness, GI bleed, back pain, seizure, CVA, palpatations, mental health)? @ -Differential Weakness: Hypoglycemia, shock, sepsis, hyponatremia, anemia, infection, NM, ETOH, adverse medicine reaction, overdose, stroke, this is not meant to be an all-inclusive list. EKG interpreted by me (3pts min.). @ -See above X-rays interpreted by me (1pt min.). @ -None done CT interpreted by me (1pt min.). @ -None done U/S interpreted by me (1pt. min.). @ -None done What testing was considered but not performed or refused? (CT, X-rays, U/S, labs)? Why? @ -None What meds were considered but not given or refused? Why? @ -None Was smoking cessation discussed for >3mins.? @ -No Were there social determinants of health that impacted care today? How? (Homelessness, low income, unemployed, alcoholism, drug addiction, transportation, low edu. Level, literacy, decrease access to med. care, [facility], rehab)? @ -Poor social situation Was there de-escalation of care discussed even if they declined (Discuss DNR or withdrawal of care, Hospice)? DNR status @ -No What co-morbidities impacted this encounter? (DM, HTN, Smoking, COPD, CAD, Cancer, CVA, ARF, Chemo, Hep., AIDS, mental health diagnosis, sleep apnea, morbid obesity)? @ -None Was patient admitted / discharged? Hospital course, mention meds given and route, prescriptions, significant lab abnormalities, going to OR and other pertinent info. @ -84-year-old female presents emergency department for generalized weakness, diarrhea. Vital signs upon arrival are within acceptable limits. Patient dry and malaised appearing at the bedside. Otherwise she does not have any focal symptoms. Laboratory evaluation obtained. CBC, metabolic panel is unremarkable. Abdominal labs negative. Viral testing is negative. Patient given IV fluids. This patient's third visit here in the last 10 days. Patient will be admitted with consultation to social work. Patient given IV fluids. Case discussed with hospitalist for admission Did you discuss the management of the patient with other professionals (professionals i.e. , PA, ARTIFICIAL PLASTIC EYE MAKER, lab, RT, psych nurse, aids social worker, german instructor, teacher, trust officer, insurance case manager)? Give summary @ -See above Was critical care preformed (if so, how long)? @ -No Undiagnosed new problem with uncertain prognosis? @ -No Drug Therapy requiring intensive monitoring for toxicity (Heparin, Nitro, Insulin, Cardizem)? @ -No Were any procedures done? @ -No Diagnosis/symptom? Acute, or Chronic, or Acute on Chronic? Uncomplicated (without systemic symptoms) or Complicated (systemic symptoms)? @ -Gravely disabled Side effects of treatment? @ -No Exacerbation, Progression, or Severe Exacerbation? @ -No Poses a threat to life or bodily function? How? (Chest pain, USA, NM, pneumonia, PE, COPD, DKA, ARF, appy, cholecystitis, CVA, Diverticulitis, Homicidal, Suicidal, threat to staff... and all critical care pts) @ -yes - Lab Data Result diagrams: 11/06/24 11:59 11/06/24 11:59 Lab Results 11/06/24 11/06/24 11/06/24 Range/Units 11:59 11:59 11:59 WBC 3.7 L (3.8-10.6) k/uL RBC 4.21 (3.80-5.40) m/uL Hgb 12.3 (11.4-16.0) gm/dL Hct 37.1 (34.0-46.0) % MCV 88.0 (80.0-100.0) fL MCH 29.2 (25.0-35.0) pg MCHC 33.2 (31.0-37.0) g/dL RDW 13.8 (11.5-15.5) % Plt Count 159 (150-450) k/uL MPV 8.3 Neutrophils % 60 % Lymphocytes % 29 % Monocytes % 7 % Eosinophils % 2 % Basophils % 0 % Neutrophils # 2.3 (1.3-7.7) k/uL Lymphocytes # 1.1 (1.0-4.8) k/uL Monocytes # 0.3 (0-1.0) k/uL Eosinophils # 0.1 (0-0.7) k/uL Basophils # 0.0 (0-0.2) k/uL Sodium 138 (137-145) mmol/L Potassium 4.1 (3.5-5.1) mmol/L Chloride 106 (98-107) mmol/L Carbon Dioxide 21 L (22-30) mmol/L Anion Gap 11 mmol/L BUN 11 (7-17) mg/dL Creatinine 0.77 (0.52-1.04) mg/dL Est GFR (CKD-EPI)AfAm 82 (>60 ml/min/1.73 sqM) Est GFR (CKD-EPI)NonAf 71 (>60 ml/min/1.73 sqM) Glucose 135 H (74-99) mg/dL Plasma Lactic Acid [place] 1.0 (0.7-2.0) mmol/L Calcium 8.3 L (8.4-10.2) mg/dL Magnesium 1.8 (1.6-2.3) mg/dL Total Bilirubin 0.8 (0.2-1.3) mg/dL AST 18 (14-36) U/L ALT 9 (4-34) U/L Alkaline Phosphatase 93 (38-126) U/L Total Protein 5.7 L (6.3-8.2) g/dL Albumin 3.3 L (3.5-5.0) g/dL Influenza Type A (PCR) (Not Detectd) Influenza Type B (PCR) (Not Detectd) RSV (PCR) (Not Detectd) SARS-CoV-2 (PCR) (Not Detectd) 11/06/24 Range/Units 12:10 WBC (3.8-10.6) k/uL RBC (3.80-5.40) m/uL Hgb (11.4-16.0) gm/dL Hct (34.0-46.0) % MCV (80.0-100.0) fL MCH (25.0-35.0) pg MCHC (31.0-37.0) g/dL RDW (11.5-15.5) % Plt Count (150-450) k/uL MPV Neutrophils % % Lymphocytes % % Monocytes % % Eosinophils % % Basophils % % Neutrophils # (1.3-7.7) k/uL Lymphocytes # (1.0-4.8) k/uL Monocytes # (0-1.0) k/uL Eosinophils # (0-0.7) k/uL Basophils # (0-0.2) k/uL Sodium (137-145) mmol/L Potassium (3.5-5.1) mmol/L Chloride (98-107) mmol/L Carbon Dioxide (22-30) mmol/L Anion Gap mmol/L BUN (7-17) mg/dL Creatinine (0.52-1.04) mg/dL Est GFR (CKD-EPI)AfAm (>60 ml/min/1.73 sqM) Est GFR (CKD-EPI)NonAf (>60 ml/min/1.73 sqM) Glucose (74-99) mg/dL Plasma Lactic Acid [place] (0.7-2.0) mmol/L Calcium (8.4-10.2) mg/dL Magnesium (1.6-2.3) mg/dL Total Bilirubin (0.2-1.3) mg/dL AST (14-36) U/L ALT (4-34) U/L Alkaline Phosphatase (38-126) U/L Total Protein (6.3-8.2) g/dL Albumin (3.5-5.0) g/dL Influenza Type A (PCR) Not Detected (Not Detectd) Influenza Type B (PCR) Not Detected (Not Detectd) RSV (PCR) Not Detected (Not Detectd) SARS-CoV-2 (PCR) Not Detected (Not Detectd) Disposition Clinical Impression: Gravely disabled Disposition: ADMITTED IP TO THIS [facility] Condition: Fair Referrals: None,Stated [Primary Care Provider] - 1-2 days Decision Time: 14:34
[2024-11-06] MEDS: SODIUM CHLORIDE 0.9% 1,000 ML IV STA (12:25)
[2024-11-06 12:34] LABS: Basophils % (A) 0 %; Eosinophils # (A) 0.1 k/uL (0-0.7); Eosinophils % (A) 2 %; HCT 37.1 % (34.0-46.0); HGB 12.3 gm/dL (11.4-16.0); Lymphocytes # (A) 1.1 k/uL (1.0-4.8); Lymphocytes % (A) 29 %; MCH 29.2 pg (25.0-35.0); MCHC 33.2 g/dL (31.0-37.0); Mean Platelet Volume 8.3; Monocytes # (A) 0.3 k/uL (0-1.0); Monocytes % (A) 7 %; Neutrophils # (A) 2.3 k/uL (1.3-7.7); Neutrophils % (A) 60 %; Platelet Count 159 k/uL (150-450); RBC 4.21 m/uL (3.80-5.40); RDW 13.8 % (11.5-15.5); WBC 3.7 k/uL (3.8-10.6)
[2024-11-06 12:50] LABS: ALT 9 U/L (4-34); AST 18 U/L (14-36); African American GFR (CKD) 82 (>60 ml/min/1.73 sqM); Albumin 3.3 g/dL (3.5-5.0); Alkaline Phosphatase 93 U/L (38-126); Anion Gap 11 mmol/L; Blood Urea Nitrogen 11 mg/dL (7-17); Calcium 8.3 mg/dL (8.4-10.2); Carbon Dioxide 21 mmol/L (22-30); Chloride 106 mmol/L (98-107); Glucose 135 mg/dL (74-99); Magnesium 1.8 mg/dL (1.6-2.3); Non-African American GFR(CKD) 71 (>60 ml/min/1.73 sqM); Potassium 4.1 mmol/L (3.5-5.1); Sodium 138 mmol/L (137-145); Total Bilirubin 0.8 mg/dL (0.2-1.3); Total Protein 5.7 g/dL (6.3-8.2)
[2024-11-06 13:16] LABS: Influenza A Not Detected (Not Detectd); Influenza B Not Detected (Not Detectd); RSV Not Detected (Not Detectd)
[2024-11-06] MEDS ORDERED: NALOXONE 0.4 MG/ML 1 ML VIAL IV PRN (14:30)
[2024-11-06] MEDS ORDERED: ONDANSETRON 4 MG/2 ML VIAL IVP PRN (14:30)
[2024-11-06] MEDS ORDERED: ACETAMINOPHEN TAB 325 MG TAB PO PRN (14:30)
[2024-11-06] MEDS ORDERED: IPRATROPIUM-ALBUTEROL 3 ML NEB INHALATION PRN (15:10)
[2024-11-06] MEDS ORDERED: DEXTROSE 50% SYRINGE 50 ML IVP PRN ×2 (15:14)
[2024-11-06] MEDS: SODIUM CHLORIDE 0.9% 1,000 ML IV SCH (15:23)
--- NOTE | 2024-11-06 16:05 | P.HPIM ---
History of Present Illness H&P Date: 11/06/24 History of present illness; Patient is an 84-year-old female with diabetes mellitus type 2, hypothyroidism, A-fib on Eliquis who presents with nausea, vomiting and diarrhea. Patient states she has had multiple visits to this ER in the last week. She is concerned about her ongoing nausea, vomiting and diarrhea which began Tuesday. She has associated weakness and lack of appetite and attests to having poor nutritional intake over the last several days. She reports sensation of slow- moving food after swallowing. She has also been treated for UTI with antibiotics twice in the last month. She states that she is not urinating frequently, normally but denies pain. Patient reports absence of fever, chills, chest pain, dyspnea, cough, abdominal pain, myalgia, dizziness, or headache. Spoke with the ER physician, patient admission was accepted by internal medicine service for treatment. REVIEW OF SYSTEMS: Pertinent positives and negatives noted in HPI. PHYSICAL EXAMINATION: Vitals reviewed GENERAL: Resting comfortably in bed. EYES: PERRL, no scleral injection or icterus. No vision loss HENT: Normocephalic, atraumatic, hearing acuity intact, dry mucous membranes NECK: No tracheal deviation, full range of motion. CARDIOVASCULAR: S1 and S2 present. No murmurs, rubs, or gallops. PULMONARY: Chest is clear to auscultation, no wheezing, rhonchi, or crackles. ABDOMEN: Soft, nontender, nondistended. No palpable organomegaly. MUSCULOSKELETAL: No apparent joint swelling and deformities. EXTREMITIES: No apparent cyanosis, clubbing. No pedal edema. NEUROLOGICAL: Alert and oriented. Strength 5/5 in upper extremities, 4 out of 5 in lower extremities SKIN: No apparent rashes. ER FINDINGS: Labs significant for WBC 3.7, bicarb 21, glucose 135, calcium 8.3, lactic acid is WNL, negative viral respiratory panel EKG independently interpreted showed sinus rhythm heart rate of 90, no ST segment elevation or depression seen, nonspecific T wave changes Assessment and Plan: In summary, patient is an 84-year-old female with diabetes mellitus type 2, hypothyroidism, A-fib on Eliquis who presents with nausea, vomiting and diarrhea. #Diarrhea possibly secondary to antibiotic treatment vs Gastroenteritis vs diabetic gastroparesis #Generalized weakness likely due to malnutrition HbA1c 8.6 last month C. difficile pending Advance diet as tolerated Continue Protonix and Zofran Plan to begin Imodium pending C. difficile PT OT consulted -On normal saline at 75 cc an hour Chronic Medical Conditions #Diabetes mellitus, type 2 Begin Accu-Cheks and low-dose sliding scale, monitor for hypoglycemia Resume home long-acting insulin starting at 10 units #Essential hypertension - Resume home losartan #A-fib - Resume home Eliquis, Cardizem #Hyperlidemia - Resume home Atorvastatin #Hypothyroidism - Hold home Synthroid, only on 12.5 mcg daily, ineffective dose repeat TSH free T4 in 4 weeks #GERD- Resume home Pantoprazole #Anxiety/Depression- Resume home medication #CKD stage II DVT ppx: Eliquis 5 mg twice daily Code status: Full code F: IV Normal saline 75 mL/hr E: Replete as needed N: Soft diet A: Ambulatory uses walker and wheelchair at baseline Anticipated discharge place: [facility] Anticipated discharge time: Pending clinical course Dictation was produced using [employer] dictation software. Please excuse any grammatical, word or spelling errors. The patient is admitted with an anticipated less than 2 midnight stay as observation status for evaluation of generalized weakness. A total of 65 minutes was spent on the care of this complex patient more than 5 0% of the time was spent in counseling and care coordination. I have seen and evaluated the patient today. Discussed with the resident and agree with the residents finding and plan as documented in the resident's note. Changes highlighted in blue font. Past Medical History Past Medical History: Atrial Fibrillation, CVA/TIA, Diabetes Mellitus, H ypertension, Memory Impairment Additional Past Medical History / Comment(s): UTI, falls History of Any Multi-Drug Resistant Organisms: VRE Date of last positivie culture/infection: 11/01/23 MDRO Source:: Urine Past Surgical History: Appendectomy Additional Past Surgical History / Comment(s): patient poor historian Past Anesthesia/Blood Transfusion Reactions: No Reported Reaction Past Psychological History: No Psychological Hx Reported Smoking Status: Never smoker Past Alcohol Use History: None Reported Past Drug Use History: None Reported - Past Family History Father History Unknown: Yes Medications and Allergies Home Medications Medication Instructions Recorded Confirmed Type Apixaban [Eliquis] 5 mg PO BID 08/25/23 11/06/24 History Atorvastatin [Lipitor] 40 mg PO HS 08/25/23 11/06/24 History Escitalopram [Lexapro] 20 mg PO DAILY 08/25/23 11/06/24 History Ferrous Sulfate [Iron (65 MG 325 mg PO HS 08/25/23 11/06/24 History Elemental)] Levothyroxine Sodium [Synthroid] 12.5 mcg PO AC-BRKFST 08/25/23 11/06/24 History Loperamide HCl [Imodium A-D] 2 mg PO QID PRN 08/25/23 11/06/24 History Loratadine 10 mg PO HS 08/25/23 11/06/24 History Montelukast [Singulair] 10 mg PO HS 08/25/23 11/06/24 History Budesonide-Formot 160-4.5 Mcg 2 puff INHALATION RT-BID #1 each 10/28/23 11/06/24 Rx [Symbicort 160-4.5 Mcg Inhaler] Thiamine [Vitamin B-1] 100 mg PO DAILY tab 12/09/23 11/06/24 Rx Spiriva Respimat 1.25mcg/Actuation 1 puff INHALATION RT-DAILY 05/10/24 11/06/24 History Mist Losartan [Cozaar] 25 mg PO DAILY 30 Days #30 tab 05/14/24 11/06/24 Rx Pantoprazole [Protonix] 40 mg PO AC-BRKFST 30 Days #30 tab 05/14/24 11/06/24 Rx Lacosamide [Vimpat] 100 mg PO HS #4 tab 06/21/24 11/06/24 Rx Cholecalciferol [Vitamin D3 (25 50 mcg PO DAILY 10/08/24 11/06/24 History Mcg = 1000 Iu)] Insulin Aspart [NovoLOG Flexpen] See Protocol SQ ACHS 10/08/24 11/06/24 History Insulin Glargine,Hum.rec.anlog 16 units SQ HS 10/08/24 11/06/24 History [Lantus Solostar Pen] Insulin Glargine,Hum.rec.anlog 24 units SQ DAILY 10/08/24 11/06/24 History [Lantus Solostar Pen] Ipratropium-Albuterol Nebulize 3 ml INHALATION RT-QID PRN 10/08/24 11/06/24 History [Duoneb 0.5 mg-3 mg/3 ml Soln] Rosuvastatin [Crestor] 20 mg PO DAILY 10/08/24 11/06/24 History dilTIAZem HCL [Tiazac] 180 mg PO DAILY 10/08/24 11/06/24 History Meclizine [Antivert] 25 mg PO TID PRN #15 tab 11/04/24 11/06/24 Rx Estradiol Cream [Estrace Cream 1 gm VAGINAL DIRECTED 11/06/24 11/06/24 History 0.01%] Allergies Allergy/AdvReac Type Severity Reaction Status Date / Time Penicillins Allergy Rash/Hives Verified 11/06/24 12:49 cefepime AdvReac Confusion Verified 11/06/24 12:49 Sulfa (Sulfonamide AdvReac Unknown Verified 11/06/24 12:49 Antibiotics) Physical Exam Vitals: Vital Signs Temp Pulse Resp BP Pulse Ox 11/06/24 11:39 98.5 F 91 16 148/85 96 Intake and Output 11/05/24 11/06/24 11/06/24 22:59 06:59 14:59 Other: Weight 68.039 kg Results CBC & Chem 7: 11/06/24 11:59 11/06/24 11:59 Labs: Abnormal Lab Results - Last 24 Hours (Table) 11/06/24 11/06/24 Range/Units 11:59 11:59 WBC 3.7 L (3.8-10.6) k/uL Carbon Dioxide 21 L (22-30) mmol/L Glucose 135 H (74-99) mg/dL Calcium 8.3 L (8.4-10.2) mg/dL Total Protein 5.7 L (6.3-8.2) g/dL Albumin 3.3 L (3.5-5.0) g/dL
[2024-11-06] MEDS ORDERED: ALBUTEROL NEBULIZED 2.5 MG/3 ML INHALATION PRN (16:42)
[2024-11-06 16:48] LABS: Glucose,Whole Blood 115 mg/dL (70-110)
[2024-11-06] MEDS: DIPHENOX-ATROP 2.5-0.025 MG 1 EACH TAB PO STA (17:05)
[2024-11-06] MEDS: INSULIN ASPART (NovoLOG) 100 UNIT/ML VIAL SQ SCH (17:05)
[2024-11-06] MEDS: ATORVASTATIN 40 MG TAB PO SCH (20:43)
[2024-11-06] MEDS: APIXABAN 5 MG TAB PO SCH (20:43)
[2024-11-06] MEDS: FERROUS SULFATE 325 MG TAB PO SCH (20:43)
[2024-11-06] MEDS: LORATADINE 10 MG TAB PO SCH (20:44)
[2024-11-06] MEDS: LACOSAMIDE 50 MG TABLET PO SCH (20:44)
[2024-11-06] MEDS: MONTELUKAST 10 MG TAB PO SCH (20:44)
[2024-11-06 21:04] LABS: Glucose,Whole Blood 103 mg/dL (70-110)
[2024-11-06] MEDS: SYMBICORT 160-4.5 MCG INHALER INHALATION SCH (21:40)
[2024-11-06] MEDS: INSULIN DETEMIR (LEVEMIR) 100 UNIT/ML SYR SQ SCH (22:21)
[2024-11-07] MEDS ORDERED: LEVOTHYROXINE 25 MCG TAB PO SCH (07:30)
[2024-11-07] MEDS: TIOTROPIUM 2.5 MCG INHALER INHALATION SCH (07:37)
[2024-11-07 08:04] LABS: Glucose,Whole Blood 122 mg/dL (70-110)
[2024-11-07] MEDS: DILTIAZEM CD 180 MG CAP.ER.24H PO SCH (08:13)
[2024-11-07] MEDS: PANTOPRAZOLE 40 MG TABLET PO SCH (08:13)
[2024-11-07] MEDS: ESCITALOPRAM 20 MG TAB PO SCH (08:13)
[2024-11-07] MEDS: THIAMINE 100 MG TAB PO SCH (08:13)
[2024-11-07] MEDS: LOSARTAN 25 MG TAB PO SCH (08:14)
[2024-11-07] MEDS: LOPERAMIDE 2 MG CAP PO SCH (10:06)
[2024-11-07 11:43] LABS: BUN/Creat Ratio 11.38 Ratio (12.00-20.00); Blood Urea Nitrogen 9.1 mg/dL (9.0-27.0); Calcium 8.1 mg/dL (8.7-10.3); Chloride 108 mmol/L (96-109); Glucose 117 mg/dL (70-110); Potassium 4.1 mmol/L (3.5-5.5); Sodium 142 mmol/L (135-145)
[2024-11-07 11:44] LABS: Glucose,Whole Blood 147 mg/dL (70-110)
[2024-11-07] MEDS: ESTRADIOL 0.1 MG/GM VAGINAL CREAM 42.5 GM TUBE VAGINAL SCH (11:48)
--- NOTE | 2024-11-07 15:39 | P.PN ---
Subjective Progress Note Date: 11/07/24 History of present illness; Patient is an 84-year-old female with diabetes mellitus type 2, hypothyroidism, A-fib on Eliquis who presents with nausea, vomiting and diarrhea. Patient states she has had multiple visits to this ER in the last week. She is concerned about her ongoing nausea, vomiting and diarrhea which began Tuesday. She has associated weakness and lack of appetite and attests to having poor nutritional intake over the last several days. She reports sensation of slow- moving food after swallowing. She has also been treated for UTI with antibiotics twice in the last month. She states that she is not urinating frequently, normally but denies pain. Patient reports absence of fever, chills, chest pain, dyspnea, cough, abdominal pain, myalgia, dizziness, or headache. 11/06/2024 Patient seen and examined at bedside. No acute events overnight. She was evaluated by PT and OT recommend subacute rehab facility on discharge. Patient able to tolerate soft diet well. No other complaints. Patient is medically stable and optimized from medical perspective. REVIEW OF SYSTEMS: Pertinent positives and negatives noted in HPI. PHYSICAL EXAMINATION: Vitals reviewed GENERAL: Resting comfortably in bed. EYES: PERRL, no scleral injection or icterus. No vision loss HENT: Normocephalic, atraumatic, hearing acuity intact, dry mucous membranes NECK: No tracheal deviation, full range of motion. CARDIOVASCULAR: S1 and S2 present. No murmurs, rubs, or gallops. PULMONARY: Chest is clear to auscultation, no wheezing, rhonchi, or crackles. ABDOMEN: Soft, nontender, nondistended. No palpable organomegaly. MUSCULOSKELETAL: No apparent joint swelling and deformities. EXTREMITIES: No apparent cyanosis, clubbing. No pedal edema. NEUROLOGICAL: Alert and oriented. Strength 5/5 in upper extremities, 4 out of 5 in lower extremities SKIN: No apparent rashes. Today's findings: Labs C. difficile negative, sodium 142, potassium 4.1, glucose [id number] Assessment and Plan: In summary, patient is an 84-year-old female with diabetes mellitus type 2, hypothyroidism, A-fib on Eliquis who presents with nausea, vomiting and diarrhea. Patient is medically stable and optimized from medical perspective for discharge. #Diarrhea possibly secondary to antibiotic treatment vs Gastroenteritis vs diabetic gastroparesis, resolving #Generalized weakness likely due to malnutrition HbA1c 8.6 last month C. difficile negative Advance diet as tolerated Continue Protonix and Zofran Begin Imodium 2 mg 4 times daily PT OT recommend [facility] - Continue normal saline at 75 cc an hour while inpatient Chronic Medical Conditions #Diabetes mellitus, type 2 Continuous Accu-Cheks and low-dose sliding scale, monitor for hypoglycemia Continue home long-acting insulin starting at 10 units #Essential hypertension - Resume home losartan #A-fib - Resume home Eliquis, Cardizem #Hyperlidemia - Resume home Atorvastatin #Hypothyroidism - Hold home Synthroid, only on 12.5 mcg daily, ineffective dose repeat TSH free T4 in 4 weeks #GERD- Resume home Pantoprazole #Anxiety/Depression- Resume home medication #CKD stage II DVT ppx: Eliquis 5 mg twice daily Code status: Full code F: IV Normal saline 75 mL/hr E: Replete as needed N: Soft diet A: Uses walker and wheelchair at baseline Anticipated discharge place: [facility] Anticipated discharge time: 1 to 2 days Dictation was produced using [employer] dictation software. Please excuse any grammatical, word or spelling errors. I have seen and evaluated the patient today. Discussed with the resident and agree with the residents finding and plan as documented in the resident's note. Changes highlighted in blue font. Objective - Vital Signs Vital signs: Vital Signs Temp 97.8 F 11/06/24 18:02 Pulse 85 11/07/24 15:06 Resp 18 11/07/24 15:06 BP 125/67 11/07/24 15:06 Pulse Ox 96 11/07/24 15:06 FiO2 Intake & Output 11/06/24 11/07/24 11/07/24 18:59 06:59 18:59 Output Total 700 900 170 Balance -700 -900 -170 Weight 68.039 kg Output: Urine 700 900 170 - Labs CBC & Chem 7: 11/06/24 11:59 11/07/24 07:17 Labs: Abnormal Lab Results - Last 24 Hours (Table) 11/06/24 11/07/24 11/07/24 Range/Units 16:47 07:17 08:03 BUN/Creatinine Ratio 11.38 L (12.00-20.00) Ratio Glucose 117 H (70-110) mg/dL POC Glucose (mg/dL) 115 H 122 H (70-110) mg/dL Calcium 8.1 L (8.7-10.3) mg/dL 11/07/24 Range/Units 11:33 BUN/Creatinine Ratio (12.00-20.00) Ratio Glucose (70-110) mg/dL POC Glucose (mg/dL) 147 H (70-110) mg/dL Calcium (8.7-10.3) mg/dL
[2024-11-08 07:49] LABS: Glucose,Whole Blood 125 mg/dL (70-110)
[2024-11-08 08:03] VITALS: BP 135/78; RESP 14; TEMP 98.1
[2024-11-08 09:09] LABS: BUN/Creat Ratio 16.86 Ratio (12.00-20.00); Blood Urea Nitrogen 11.8 mg/dL (9.0-27.0); Calcium 8.1 mg/dL (8.7-10.3); Chloride 107 mmol/L (96-109); Glucose 136 mg/dL (70-110); Potassium 3.6 mmol/L (3.5-5.5); Sodium 140 mmol/L (135-145)
--- NOTE | 2024-11-08 09:55 | P.DS ---
Providers Date of admission: 11/06/24 14:21 Expected date of discharge: 11/08/24 Attending physician: Vikram Anguiano Primary care physician: Stated None Hospital Course: Discharge diagnoses; #Generalized weakness likely due to malnutrition #Diarrhea #Diabetes mellitus, type 2 #Essential hypertension #A-fib #Hyperlidemia #Hypothyroidism #GERD #Anxiety/Depression #CKD stage II Hospital course; History of present illness; Patient is an 84-year-old female with diabetes mellitus type 2, hypothyroidism, A-fib on Eliquis who presents with nausea, vomiting and diarrhea. Patient states she has had multiple visits to this ER in the last week. She is concerned about her ongoing nausea, vomiting and diarrhea which began Tuesday. She has associated weakness and lack of appetite and attests to having poor nutritional intake over the last several days. She reports sensation of slow- moving food after swallowing. She has also been treated for UTI with antibiotics twice in the last month. She states that she is not urinating freq uently, normally but denies pain. Patient reports absence of fever, chills, chest pain, dyspnea, cough, abdominal pain, myalgia, dizziness, or headache. During hosptal stay, she was evaluated by PT and OT recommend subacute rehab facility on discharge. Patient able to tolerate soft diet well. No further diarrhea Patient is medically stable for discharge to rehab facility. Insulin levimir kyrie nged to 10u HS. No other medication changes. Follow up with [facility]CP or [facility]. REVIEW OF SYSTEMS: Pertinent positives and negatives noted in HPI. PHYSICAL EXAMINATION: Vitals reviewed GENERAL: Resting comfortably in bed. EYES: PERRL, no scleral injection or icterus. No vision loss HENT: Normocephalic, atraumatic, hearing acuity intact, moist mucous membranes NECK: No tracheal deviation, full range of motion. CARDIOVASCULAR: S1 and S2 present. No murmurs, rubs, or gallops. PULMONARY: Chest is clear to auscultation, no wheezing, rhonchi, or crackles. ABDOMEN: Soft, nontender, nondistended. No palpable organomegaly. MUSCULOSKELETAL: No apparent joint swelling and deformities. EXTREMITIES: No apparent cyanosis, clubbing. No pedal edema. NEUROLOGICAL: Alert and oriented. Strength 5/5 in upper extremities, 4 out of 5 in lower extremities SKIN: No apparent rashes. Dictation was produced using [employer] dictation software. Please excuse any grammatical, word or spelling errors. A total of 36 minutes of time were spent preparing this complex discharge summary. Patient was discharged on 11/08/2024 at 918. I have seen and evaluated the patient today. Discussed with the resident and agree with the residents finding and plan as documented in the resident's note. Changes highlighted in blue font. Patient Condition at Discharge: Stable Plan - Discharge Summary Discharge Rx Participant: No New Discharge Prescriptions: New Insulin Detemir (Levemir) [Levemir] 10 unit SQ HS #10 each Continue Loratadine 10 mg PO HS Ferrous Sulfate [Iron (65 MG Elemental)] 325 mg PO HS Escitalopram [Lexapro] 20 mg PO DAILY Atorvastatin [Lipitor] 40 mg PO HS Loperamide HCl [Imodium A-D] 2 mg PO QID PRN PRN Reason: Diarrhea Spiriva Respimat 1.25mcg/Actuation Mist 1 puff INHALATION RT-DAILY Losartan [Cozaar] 25 mg PO DAILY 30 Days #30 tab Pantoprazole [Protonix] 40 mg PO AC-BRKFST 30 Days #30 tab Cholecalciferol [Vitamin D3 (25 Mcg = 1000 Iu)] 50 mcg PO DAILY Ipratropium-Albuterol Nebulize [Duoneb 0.5 mg-3 mg/3 ml Soln] 3 ml INHALATION RT-QID PRN PRN Reason: Shortness Of Breath Levothyroxine Sodium [Synthroid] 12.5 mcg PO AC-BRKFST Montelukast [Singulair] 10 mg PO HS Apixaban [Eliquis] 5 mg PO BID Budesonide-Formot 160-4.5 Mcg [Symbicort 160-4.5 Mcg Inhaler] 2 puff INHALATION RT-BID #1 each Thiamine [Vitamin B-1] 100 mg PO DAILY tab Lacosamide [Vimpat] 100 mg PO HS #4 tab dilTIAZem HCL [Tiazac] 180 mg PO DAILY Insulin Aspart [NovoLOG Flexpen] See Protocol SQ ACHS Rosuvastatin [Crestor] 20 mg PO DAILY Meclizine [Antivert] 25 mg PO TID PRN #15 tab PRN Reason: dizziness Estradiol Cream [Estrace Cream 0.01%] 1 gm VAGINAL DIRECTED Discontinued Insulin Glargine,Hum.rec.anlog [Lantus Solostar Pen] 24 units SQ DAILY Insulin Glargine,Hum.rec.anlog [Lantus Solostar Pen] 16 units SQ HS Discharge Medication List Apixaban [Eliquis] 5 mg PO BID 08/25/23 [History] Atorvastatin [Lipitor] 40 mg PO HS 08/25/23 [History] Escitalopram [Lexapro] 20 mg PO DAILY 08/25/23 [History] Ferrous Sulfate [Iron (65 MG Elemental)] 325 mg PO HS 08/25/23 [History] Levothyroxine Sodium [Synthroid] 12.5 mcg PO AC-BRKFST 08/25/23 [History] Loperamide HCl [Imodium A-D] 2 mg PO QID PRN 08/25/23 [History] Loratadine 10 mg PO HS 08/25/23 [History] Montelukast [Singulair] 10 mg PO HS 08/25/23 [History] Budesonide-Formot 160-4.5 Mcg [Symbicort 160-4.5 Mcg Inhaler] 2 puff INHALATION RT-BID #1 each 10/28/23 [Rx] Thiamine [Vitamin B-1] 100 mg PO DAILY tab 12/09/23 [Rx] Spiriva Respimat 1.25mcg/Actuation Mist 1 puff INHALATION RT-DAILY 05/10/24 [History] Losartan [Cozaar] 25 mg PO DAILY 30 Days #30 tab 05/14/24 [Rx] Pantoprazole [Protonix] 40 mg PO AC-BRKFST 30 Days #30 tab 05/14/24 [Rx] Lacosamide [Vimpat] 100 mg PO HS #4 tab 06/21/24 [Rx] Cholecalciferol [Vitamin D3 (25 Mcg = 1000 Iu)] 50 mcg PO DAILY 10/08/24 [History] Insulin Aspart [NovoLOG Flexpen] See Protocol SQ ACHS 10/08/24 [History] Ipratropium-Albuterol Nebulize [Duoneb 0.5 mg-3 mg/3 ml Soln] 3 ml INHALATION RT-QID PRN 10/08/24 [History] Rosuvastatin [Crestor] 20 mg PO DAILY 10/08/24 [History] dilTIAZem HCL [Tiazac] 180 mg PO DAILY 10/08/24 [History] Meclizine [Antivert] 25 mg PO TID PRN #15 tab 11/04/24 [Rx] Estradiol Cream [Estrace Cream 0.01%] 1 gm VAGINAL DIRECTED 11/06/24 [History] Insulin Detemir (Levemir) [Levemir] 10 unit SQ HS #10 each 11/08/24 [Rx] Follow up Appointment(s)/Referral(s): [facility] [NON-STAFF] - 1 Week None,Stated [Primary Care Provider] - 1-2 days Patient Instructions/Handouts: Weakness (DC) Activity/Diet/Wound Care/Special Instructions: Follow up with PCP Discharge Disposition: TRANSFER TO SNF/ECF
[2024-11-08 10:01] VITALS: PULSE 75
== END 2024-11-08 11:39 ==
LOC: EC 11:36 → 5NMEDONC 14:21
PROVIDERS: ADMIT Student in an Organized Health Care Education/Training Program; ATTEND Student in an Organized Health Care Education/Training Program
DX: R53.1 Weakness (principal); R19.7 Diarrhea, unspecified; E78.5 Hyperlipidemia, unspecified; K21.9 Gastro-esophageal reflux disease without esophagitis; F32.A Depression, unspecified; F41.9 Anxiety disorder, unspecified; I12.9 Hypertensive chronic kidney disease with stage 1 through stage 4 chronic kidney disease, or unspecified chronic kidney disease; N18.2 Chronic kidney disease, stage 2 (mild); E11.22 Type 2 diabetes mellitus with diabetic chronic kidney disease; I48.91 Unspecified atrial fibrillation; E03.9 Hypothyroidism, unspecified; Z86.73 Personal history of transient ischemic attack (TIA), and cerebral infarction without residual deficits; Z87.440 Personal history of urinary (tract) infections; Z79.4 Long term (current) use of insulin; Z79.01 Long term (current) use of anticoagulants; Z79.51 Long term (current) use of inhaled steroids; Z79.890 Hormone replacement therapy; Z79.899 Other long term (current) drug therapy; Z88.0 Allergy status to penicillin; Z88.1 Allergy status to other antibiotic agents; Z88.2 Allergy status to sulfonamides
CPT/HCPCS: 99285; 36415; 94640 ×5; 93005; 97530; 97161; 97166; 80053; 80048 ×2; 83605; 83735; 85025; 87324; 87636; G0378 ×3

== ENCOUNTER 2024-12-11 15:36 | Emergency (ER) | payer SELFPAY ==
[2024-12-11 15:41] VITALS: RESP 18
--- NOTE | 2024-12-11 16:02 | ED ---
General Adult HPI - General Chief complaint: Dizziness Stated complaint: Diarrhea Time Seen by Provider: 12/11/24 15:36 Source: patient, EMS, RN notes reviewed Mode of arrival: EMS Limitations: no limitations - History of Present Illness Initial comments: Patient is an 84-year-old female presenting to the emergency department with concern with diarrhea. Patient states she has had explosive diarrhea frequently for years. Patient states she had another episode today. Patient states she was a little bit lightheaded following it today otherwise feels fine and wants to go home. Patient denies any abdominal discomfort. Patient states this is a chronic problem for her. Patient does live at home however does have assistance from her daughter and aids. - Related Data Home Medications Medication Instructions Recorded Confirmed Apixaban [Eliquis] 5 mg PO BID 08/25/23 11/06/24 Atorvastatin [Lipitor] 40 mg PO HS 08/25/23 11/06/24 Escitalopram [Lexapro] 20 mg PO DAILY 08/25/23 11/06/24 Ferrous Sulfate [Iron (65 MG 325 mg PO HS 08/25/23 11/06/24 Elemental)] Levothyroxine Sodium [Synthroid] 12.5 mcg PO AC-BRKFST 08/25/23 11/06/24 Loperamide HCl [Imodium A-D] 2 mg PO QID PRN 08/25/23 11/06/24 Loratadine 10 mg PO HS 08/25/23 11/06/24 Montelukast [Singulair] 10 mg PO HS 08/25/23 11/06/24 Spiriva Respimat 1.25mcg/Actuation 1 puff INHALATION RT-DAILY 05/10/24 11/06/24 Mist Cholecalciferol [Vitamin D3 (25 50 mcg PO DAILY 10/08/24 11/06/24 Mcg = 1000 Iu)] Insulin Aspart [NovoLOG Flexpen] See Protocol SQ ACHS 10/08/24 11/06/24 Ipratropium-Albuterol Nebulize 3 ml INHALATION RT-QID PRN 10/08/24 11/06/24 [Duoneb 0.5 mg-3 mg/3 ml Soln] Rosuvastatin [Crestor] 20 mg PO DAILY 10/08/24 11/06/24 dilTIAZem HCL [Tiazac] 180 mg PO DAILY 10/08/24 11/06/24 Estradiol Cream [Estrace Cream 1 gm VAGINAL DIRECTED 11/06/24 11/06/24 0.01%] Previous Rx's Medication Instructions Recorded Budesonide-Formot 160-4.5 Mcg 2 puff INHALATION RT-BID #1 each 10/28/23 [Symbicort 160-4.5 Mcg Inhaler] Thiamine [Vitamin B-1] 100 mg PO DAILY tab 12/09/23 Losartan [Cozaar] 25 mg PO DAILY 30 Days #30 tab 05/14/24 Pantoprazole [Protonix] 40 mg PO AC-BRKFST 30 Days #30 tab 05/14/24 Lacosamide [Vimpat] 100 mg PO HS #4 tab 06/21/24 Meclizine [Antivert] 25 mg PO TID PRN #15 tab 11/04/24 Insulin Detemir (Levemir) [Levemir] 10 unit SQ HS #10 each 11/08/24 nitrofurantoin macrocrystaL 100 mg PO BID #20 capsule 12/11/24 [Macrodantin] Allergies Allergy/AdvReac Type Severity Reaction Status Date / Time Penicillins Allergy Rash/Hives Verified 12/11/24 15:41 cefepime AdvReac Confusion Verified 12/11/24 15:41 Sulfa (Sulfonamide AdvReac Unknown Verified 12/11/24 15:41 Antibiotics) Review of Systems ROS Statement: Those systems with pertinent positive or pertinent negative responses have been documented in the HPI. ROS Other: All systems not noted in ROS Statement are negative. Constitutional: Denies: fever Eyes: Denies: eye pain ENT: Denies: ear pain Respiratory: Denies: dyspnea Cardiovascular: Denies: chest pain Endocrine: Denies: fatigue Gastrointestinal: Reports: diarrhea. Denies: abdominal pain, nausea, vomiting Musculoskeletal: Denies: back pain Neurological: Denies: headache, weakness Past Medical History Past Medical History: Atrial Fibrillation, CVA/TIA, Diabetes Mellitus, Hypertension, Memory Impairment Additional Past Medical History / Comment(s): UTI, falls History of Any Multi-Drug Resistant Organisms: VRE Date of last positivie culture/infection: 11/01/23 MDRO Source:: Urine Past Surgical History: Appendectomy Additional Past Surgical History / Comment(s): patient poor historian Past Anesthesia/Blood Transfusion Reactions: No Reported Reaction Past Psychological History: No Psychological Hx Reported Smoking Status: Unknown if ever smoked Past Alcohol Use History: None Reported Past Drug Use History: None Reported - Past Family History Father History Unknown: Yes General Exam Limitations: no limitations General appearance: alert, in no apparent distress Head exam: Present: normocephalic Eye exam: Present: normal appearance Neck exam: Present: normal inspection Respiratory exam: Present: normal lung sounds bilaterally Cardiovascular Exam: Present: regular rate, normal rhythm GI/Abdominal exam: Present: soft. Absent: tenderness Extremities exam: Present: normal inspection. Absent: pedal edema, calf tenderness Neurological exam: Present: alert, CN II-XII intact. Absent: motor sensory deficit Expanded Neurological exam: Present: protecting the airway Speech: Present: fluid speech Cranial nerves: EOM's Intact: Normal Motor strength exam: RUE: 5, LUE: 5, RLE: 5, LLE: 5 Psychiatric exam: Present: normal affect, normal mood Skin exam: Present: normal color Course Vital Signs 12/11/24 12/11/24 15:38 16:13 Temperature 97 F L 98.2 F Pulse Rate 91 91 Respiratory 18 18 Rate Blood Pressure 131/70 132/71 O2 Sat by Pulse 96 97 Oximetry EKG Findings - EKG Results: EKG: interpreted by ERMD, sinus rhythm, normal axis, normal QRS, normal ST/T Medical Decision Making - Medical Decision Making Was pt. sent in by a medical professional or institution ([facility] [place], NUT GRADER, urgent care, hospital, or detention...) When possible be specific @ -No Did you speak to anyone other than the patient for history (EMS, parent, family, police, friend...)? What history was obtained from this source @ -No Did you review nursing and triage notes (agree or disagree)? Why? @ -I reviewed and agree with nursing and triage notes Were old charts reviewed (outside hosp., previous admission, EMS record, old EKG, old radiological studies, urgent care reports/EKG's, detention records)? Report findings @ -No old charts were reviewed Differential Diagnosis (chest pain, altered mental status, abdominal pain women, abdominal pain men, vaginal bleeding, weakness, fever, dyspnea, syncope, headache, dizziness, GI bleed, back pain, seizure, CVA, palpatations, mental health, musculoskeletal)? @ -Differential Weakness: Hypoglycemia, shock, sepsis, hyponatremia, anemia, infection, PA, ETOH, adverse medicine reaction, overdose, stroke, this is not meant to be an all-inclusive list. EKG interpreted by me (3pts min.). @ -As above X-rays interpreted by me (1pt min.). @ -None done CT interpreted by me (1pt min.). @ -None done U/S interpreted by me (1pt. min.). @ -None done What testing was considered but not performed or refused? (CT, X-rays, U/S, labs)? Why? @ -None What meds were considered but not given or refused? Why? @ -None Did you discuss the management of the patient with other professionals (professionals i.e. , PA, NUT GRADER, lab, RT, psych nurse, social problems specialist, yard general car supervisor, teacher, welfare officer, hospice case manager)? Give summary @ -No Was smoking cessation discussed for >3mins.? @ -No Was critical care preformed (if so, how long)? @ -No Were there social determinants of health that impacted care today? How? (Homelessness, low income, unemployed, alcoholism, drug addiction, transportation, low edu. Level, literacy, decrease access to med. care, custodial, rehab)? @ -No Was there de-escalation of care discussed even if they declined (Discuss DNR or withdrawal of care, Hospice)? DNR status @ -No What co-morbidities impacted this encounter? (DM, HTN, Smoking, COPD, CAD, Cancer, CVA, ARF, Chemo, Hep., AIDS, mental health diagnosis, sleep apnea, morbid obesity)? @ -History of chronic diarrhea Was patient admitted / discharged? Hospital course, mention meds given and route, prescriptions, significant lab abnormalities, going to OR and other pertinent info. @ -Patient presents with acute on chronic diarrhea however did feel lightheaded. Patient feels well on arrival and continues to feel well on reevaluation. There is concern for urinary tract infection and patient will be covered for this. Patient updated on results. Nursing staff did discuss case with daughter who is comfortable with discharge of patient and taking care of her at home. Undiagnosed new problem with uncertain prognosis? @ -No Drug Therapy requiring intensive monitoring for toxicity (Heparin, Nitro, Insulin, Cardizem)? @ -No Were any procedures done? @ -No Diagnosis/symptom? @ -Diarrhea, UTI, lightheadedness Acute, or Chronic, or Acute on Chronic? @ -Acute on chronic, acute, acute Uncomplicated (without systemic symptoms) or Complicated (systemic symptoms)? @ -Default Side effects of treatment? @ -No Exacerbation, Progression, or Severe Exacerbation? @ -No Poses a threat to life or bodily function? How? (Chest pain, USA, PA, pneumonia, PE, COPD, DKA, ARF, appy, cholecystitis, CVA, Diverticulitis, Homicidal, Suicidal, threat to staff... and all critical care pts) @ -No - Lab Data Result diagrams: 12/11/24 16:08 12/11/24 16:08 Lab Results 12/11/24 12/11/24 12/11/24 Range/Units 16:08 16:08 16:08 WBC 6.2 (3.8-10.6) k/uL RBC 4.20 (3.80-5.40) m/uL Hgb 11.9 (11.4-16.0) gm/dL Hct 37.3 (34.0-46.0) % MCV 88.8 (80.0-100.0) fL MCH 28.5 (25.0-35.0) pg MCHC 32.1 (31.0-37.0) g/dL RDW 13.5 (11.5-15.5) % Plt Count 192 (150-450) k/uL MPV 9.2 Neutrophils % 69 % Lymphocytes % 22 % Monocytes % 6 % Eosinophils % 2 % Basophils % 1 % Neutrophils # 4.2 (1.3-7.7) k/uL Lymphocytes # 1.4 (1.0-4.8) k/uL Monocytes # 0.4 (0-1.0) k/uL Eosinophils # 0.1 (0-0.7) k/uL Basophils # 0.0 (0-0.2) k/uL Hypochromasia Moderate Sodium 137 (137-145) mmol/L Potassium 4.1 (3.5-5.1) mmol/L Chloride 103 (98-107) mmol/L Carbon Dioxide 25 (22-30) mmol/L Anion Gap 9 mmol/L BUN 12 (7-17) mg/dL Creatinine 0.76 (0.52-1.04) mg/dL Est GFR (CKD-EPI)AfAm 84 (>60 ml/min/1.73 sqM) Est GFR (CKD-EPI)NonAf 73 (>60 ml/min/1.73 sqM) Glucose 266 H (74-99) mg/dL Calcium 8.2 L (8.4-10.2) mg/dL Total Bilirubin 0.9 (0.2-1.3) mg/dL AST 15 (14-36) U/L ALT 9 (4-34) U/L Alkaline Phosphatase 83 (38-126) U/L Total Protein 5.9 L (6.3-8.2) g/dL Albumin 3.3 L (3.5-5.0) g/dL Amylase 48 (30-110) U/L Lipase 50 (23-300) U/L Urine Color Yellow Urine Appearance Cloudy H (Clear) Urine pH 7.5 (5.0-8.0) Ur Specific [place] 1.018 (1.001-1.035) Urine Protein 2+ H (Negative) Urine Glucose (UA) Negative (Negative) Urine Ketones Negative (Negative) Urine Blood Small H (Negative) Urine Nitrite Positive H (Negative) Urine Bilirubin Negative (Negative) Urine Urobilinogen 2.0 (<2.0) mg/dL Ur Leukocyte Esterase Large H (Negative) Urine RBC 42 H (0-5) /hpf Urine WBC >182 H (0-5) /hpf Ur Squamous Epith Cells <1 (0-4) /hpf Urine Bacteria Rare H (None) /hpf Disposition Clinical Impression: UTI (urinary tract infection), Lightheadedness, Diarrhea Disposition: HOME SELF-CARE Condition: Stable Instructions (If sedation given, give patient instructions): Dizziness (ED), Acute Diarrhea (ED), Urinary Tract Infection in Women (ED) Additional Instructions: Prescription sent to pharmacy. Please do follow-up with primary care physician in the next couple of days for recheck. Return for fever, weakness, passing out, uncontrolled diarrhea, worsening or changing symptoms or other concerns. Prescriptions: nitrofurantoin macrocrystaL [Macrodantin] 100 mg PO BID #20 capsule Is patient prescribed a controlled substance at d/c from ED?: No Referrals: None,Stated [Primary Care Provider] - 1-2 days Cruzito De La Garza MD [REFERRING] - 1-2 days Forms: Area PCPs Time of Disposition: 17:19
[2024-12-11] MEDS: DICYCLOMINE 10 MG/ML 2 ML AMP IM STA (16:15)
[2024-12-11] MEDS: SODIUM CHLORIDE 0.9% 1,000 ML IV STA (16:15)
[2024-12-11 16:17] VITALS: TEMP 98.2
[2024-12-11 16:17] LABS: Basophils % (A) 1 %; Eosinophils # (A) 0.1 k/uL (0-0.7); Eosinophils % (A) 2 %; HCT 37.3 % (34.0-46.0); HGB 11.9 gm/dL (11.4-16.0); Hypochromasia Moderate; Lymphocytes # (A) 1.4 k/uL (1.0-4.8); Lymphocytes % (A) 22 %; MCH 28.5 pg (25.0-35.0); MCHC 32.1 g/dL (31.0-37.0); MCV 88.8 fL (80.0-100.0); Mean Platelet Volume 9.2; Monocytes # (A) 0.4 k/uL (0-1.0); Monocytes % (A) 6 %; Neutrophils # (A) 4.2 k/uL (1.3-7.7); Neutrophils % (A) 69 %; Platelet Count 192 k/uL (150-450); RDW 13.5 % (11.5-15.5); WBC 6.2 k/uL (3.8-10.6)
[2024-12-11 16:25] LABS: Appearance,Urine Cloudy (Clear); Bacteria,Urine Rare /hpf; Bilirubin,Urine Negative (Negative); Blood,Urine Small (Negative); Color,Urine Yellow; Glucose,Urine (UA) Negative (Negative); Ketones,Urine Negative (Negative); Leukocyte Esterase,Urine Large (Negative); Nitrite,Urine Positive (Negative); PH, Urine 7.5 (5.0-8.0); Protein,Urine 2+ (Negative); RBC,Urine 42 /hpf (0-5); Specific Gravity,Urine 1.018 (1.001-1.035); Squamous Epithelial Cell,Urine <1 /hpf (0-4); WBC,Urine >182 /hpf (0-5)
[2024-12-11 16:33] LABS: ALT 9 U/L (4-34); AST 15 U/L (14-36); African American GFR (CKD) 84 (>60 ml/min/1.73 sqM); Albumin 3.3 g/dL (3.5-5.0); Alkaline Phosphatase 83 U/L (38-126); Amylase 48 U/L (30-110); Anion Gap 9 mmol/L; Blood Urea Nitrogen 12 mg/dL (7-17); Calcium 8.2 mg/dL (8.4-10.2); Carbon Dioxide 25 mmol/L (22-30); Chloride 103 mmol/L (98-107); Glucose 266 mg/dL (74-99); Lipase 50 U/L (23-300); Non-African American GFR(CKD) 73 (>60 ml/min/1.73 sqM); Potassium 4.1 mmol/L (3.5-5.1); Sodium 137 mmol/L (137-145); Total Bilirubin 0.9 mg/dL (0.2-1.3); Total Protein 5.9 g/dL (6.3-8.2)
[2024-12-11 18:02] VITALS: BP 132/58
[2024-12-11 18:06] VITALS: PULSE 91
== END 2024-12-11 17:30 | disposition home or self-care (01) ==
LOC: EC 15:36
DX: N39.0 Urinary tract infection, site not specified (principal); R42 Dizziness and giddiness; R19.7 Diarrhea, unspecified; Z86.73 Personal history of transient ischemic attack (TIA), and cerebral infarction without residual deficits; Z88.0 Allergy status to penicillin; Z88.2 Allergy status to sulfonamides; Z88.1 Allergy status to other antibiotic agents
CPT/HCPCS: 36415; 93005; 80053; 82150; 83690; 85025; 81001; 87086; 99284; 96360; 96372; J0500; 87077; 87186

== ENCOUNTER 2025-02-02 16:11 | Emergency (ER) | payer MEDICARE ==
[2025-02-02] MEDS: SODIUM CHLORIDE 0.9% 500 ML 500 ML IV STA (16:41)
[2025-02-02 16:52] LABS: Basophils # (A) 0.08 10*3/uL (0.00-0.10); Basophils % (A) 1.1 %; Eosinophils # (A) 0.12 10*3/uL (0.04-0.35); Eosinophils % (A) 1.6 %; HCT 35.1 % (37.2-46.3); HGB 11.4 g/dL (12.0-15.0); Lymphocytes # (A) 1.85 10*3/uL (0.90-5.00); Lymphocytes % (A) 24.3 %; MCH 28.4 pg (27.0-32.0); MCHC 32.5 g/dL (32.0-37.0); MCV 87.5 fL (80.0-97.0); Mean Platelet Volume 11.5 fL (9.5-12.2); Monocytes # (A) 0.62 10*3/uL (0.20-1.00); Monocytes % (A) 8.2 %; Neutrophils # (A) 4.89 10*3/uL (1.80-7.70); Neutrophils % (A) 64.3 %; Platelet Count 182 10*3/uL (140-440); RBC 4.01 10*6/uL (4.10-5.20); RDW 14.3 % (11.5-14.5)
--- NOTE | 2025-02-02 17:03 | ED ---
General Adult HPI - General Chief complaint: Syncope Stated complaint: Syncope Time Seen by Provider: 02/02/25 16:19 Source: patient, EMS Mode of arrival: EMS Limitations: no limitations - History of Present Illness Initial comments: This patient is an 84-year-old woman brought to have evaluation after syncopal episode. Patient reportedly had been using bathroom and then an attempt to get off the commode had become weak and blacked out. The patient states she does remember trying to get up, feeling lightheaded and passing out. She denies having chest pain or dyspnea. She thinks she may have briefly had diaphoresis. No nausea, vomiting, palpitations. -: hour(s) Severity scale (1-10): 0 Consistency: now resolved Improves with: none Worsens with: none Associated Symptoms: syncope Treatments Prior to Arrival: other (IV fluid) - Related Data Home Medications Medication Instructions Recorded Confirmed Apixaban [Eliquis] 5 mg PO BID 08/25/23 02/15/25 Escitalopram [Lexapro] 20 mg PO DAILY 08/25/23 02/15/25 Ferrous Sulfate [Iron (65 MG 325 mg PO HS 08/25/23 02/15/25 Elemental)] Levothyroxine Sodium [Synthroid] 12.5 mcg PO AC-BRKFST 08/25/23 02/15/25 Loperamide HCl [Imodium A-D] 2 mg PO QID PRN 08/25/23 02/15/25 Montelukast [Singulair] 10 mg PO HS 08/25/23 02/15/25 Spiriva Respimat 1.25mcg/Actuation 1 puff INHALATION RT-DAILY 05/10/24 02/15/25 Mist Insulin Aspart [NovoLOG Flexpen] See Protocol SQ AC-TID 10/08/24 02/15/25 Ipratropium-Albuterol Nebulize 3 ml INHALATION RT-QID PRN 10/08/24 02/15/25 [Duoneb 0.5 mg-3 mg/3 ml Soln] Rosuvastatin [Crestor] 20 mg PO DAILY 10/08/24 02/15/25 dilTIAZem HCL [Tiazac] 180 mg PO DAILY 10/08/24 02/15/25 Colchicine 0.6 - 1.2 mg PO DIRECTED PRN 02/15/25 02/15/25 Insulin Glargine (Lantus) [Lantus 10 unit SQ HS 02/15/25 02/15/25 Vial] Previous Rx's Medication Instructions Recorded Budesonide-Formot 160-4.5 Mcg 2 puff INHALATION RT-BID #1 each 10/28/23 [Symbicort 160-4.5 Mcg Inhaler] Thiamine [Vitamin B-1] 100 mg PO DAILY tab 12/09/23 Losartan [Cozaar] 25 mg PO DAILY 30 Days #30 tab 05/14/24 Pantoprazole [Protonix] 40 mg PO AC-BRKFST 30 Days #30 tab 05/14/24 Lacosamide [Vimpat] 100 mg PO HS #4 tab 06/21/24 Ciprofloxacin HCl [Cipro] 500 mg PO BID 7 Days #14 tab 02/10/25 Allergies Allergy/AdvReac Type Severity Reaction Status Date / Time Penicillins Allergy Rash/Hives Verified 02/15/25 10:30 cefepime AdvReac Confusion Verified 02/15/25 10:30 Sulfa (Sulfonamide AdvReac Unknown Verified 02/15/25 10:30 Antibiotics) Review of Systems ROS Statement: Those systems with pertinent positive or pertinent negative responses have been documented in the HPI. ROS Other: All systems not noted in ROS Statement are negative. Constitutional: Denies: fever, chills, weakness Eyes: Denies: vision change ENT: Denies: congestion Respiratory: Denies: cough, dyspnea, wheezes Cardiovascular: Reports: syncope. Denies: chest pain, palpitations, orthopnea, edema Gastrointestinal: Denies: abdominal pain, nausea, vomiting, diarrhea Genitourinary: Denies: dysuria, hematuria Musculoskeletal: Denies: back pain Skin: Denies: rash Neurological: Denies: headache, weakness, numbness Psychiatric: Denies: anxiety Past Medical History Past Medical History: Atrial Fibrillation, CVA/TIA, Diabetes Mellitus, Hypertension, Memory Impairment Additional Past Medical History / Comment(s): UTI, falls History of Any Multi-Drug Resistant Organisms: VRE Date of last positivie culture/infection: 11/01/23 MDRO Source:: Urine Past Surgical History: Appendectomy Additional Past Surgical History / Comment(s): patient poor historian Past Anesthesia/Blood Transfusion Reactions: No Reported Reaction Past Psychological History: No Psychological Hx Reported Smoking Status: Unknown if ever smoked Past Alcohol Use History: None Reported Past Drug Use History: None Reported - Past Family History Father History Unknown: Yes General Exam Limitations: no limitations General appearance: alert, in no apparent distress Head exam: Present: atraumatic, normocephalic Eye exam: Present: normal appearance. Absent: scleral icterus, conjunctival injection ENT exam: Present: normal oropharynx Neck exam: Present: normal inspection Respiratory exam: Present: normal lung sounds bilaterally. Absent: respiratory distress, wheezes, rales, rhonchi, stridor, accessory muscle use Cardiovascular Exam: Present: regular rate, normal rhythm, normal heart sounds. Absent: systolic murmur, diastolic murmur, rubs, gallop GI/Abdominal exam: Present: soft. Absent: distended, tenderness, guarding, rebound Extremities exam: Present: normal inspection, normal capillary refill. Absent: pedal edema, calf tenderness Back exam: Present: normal inspection. Absent: CVA tenderness (R), CVA tenderness (L) Neurological exam: Present: alert. Absent: oriented X3 (Patient is disoriented to date), CN II-XII intact, motor sensory deficit Skin exam: Present: warm, dry, intact, normal color. Absent: rash Course Vital Signs 02/02/25 02/02/25 02/02/25 16:12 17:43 18:08 Temperature 98.1 F Pulse Rate 76 70 75 Respiratory 18 16 18 Rate Blood Pressure 113/43 102/63 107/69 O2 Sat by Pulse 96 94 L 97 Oximetry 02/02/25 18:45 Temperature 97.9 F Pulse Rate 85 Respiratory 18 Rate Blood Pressure 120/77 O2 Sat by Pulse 99 Oximetry EKG Findings - EKG Results: EKG: interpreted by KAREN ALARCON, sinus rhythm (Rate 74 bpm), normal axis, normal QRS, normal ST/T, no acute changes Medical Decision Making - Medical Decision Making The patient had chest x-ray that I interpreted as negative for acute infiltrate, pneumothorax, congestive heart failure Was pt. sent in by a medical professional or institution (, [facility], [facility], urgent care, hospital, or senior living...) When possible be specific @ -[No] Did you speak to anyone other than the patient for history (EMS, parent, family, police, friend...)? What history was obtained from this source @ -[No] Did you review nursing and triage notes (agree or disagree)? Why? @ -[I reviewed and agree with nursing and triage notes] Were old charts reviewed (outside hosp., previous admission, EMS record, old EKG, old radiological studies, urgent care reports/EKG's, senior living records)? Report findings @ -[No old charts were reviewed] Differential Diagnosis (chest pain, altered mental status, abdominal pain women, abdominal pain men, vaginal bleeding, weakness, fever, dyspnea, syncope, headache, dizziness, GI bleed, back pain, seizure, CVA, palpatations, mental health, musculoskeletal)? @ -[Differential Syncope: Valvular disease, hypertrophic cardiomyopathy, pulmonary embolism, tamponade, tachycardia, bradycardia, VT, hypovolemia, hemorrhage, dissection, anemia, intracranial hemorrhage, seizure, hypoglycemia, carbon monoxide poisoning, this is not meant to be an all-inclusive list. EKG interpreted by me (3pts min.). @ -[I interpreted as above X-rays interpreted by me (1pt min.). @ -[I interpreted as above CT interpreted by me (1pt min.). @ -[None done] U/S interpreted by me (1pt. min.). @ -[None done] What testing was considered but not performed or refused? (CT, X-rays, U/S, labs)? Why? @ -[None] What meds were considered but not given or refused? Why? @ -[None] Did you discuss the management of the patient with other professionals (professionals i.e. , PA, TABLEAU LEAD, lab, RT, psych nurse, social worker assistant, sales order processor, teacher, motor equipment commanding officer, manager case)? Give summary @ -[No] Was smoking cessation discussed for >3mins.? @ -[No] Was critical care preformed (if so, how long)? @ -[No] Were there social determinants of health that impacted care today? How? ([place] elessness, low income, unemployed, alcoholism, drug addiction, transportation, low edu. Level, literacy, decrease access to med. care, fdc, rehab)? @ -[No] Was there de-escalation of care discussed even if they declined (Discuss DNR or withdrawal of care, Hospice)? DNR status @ -[No] What co-morbidities impacted this encounter? (DM, HTN, Smoking, COPD, CAD, Cancer, CVA, ARF, Chemo, Hep., AIDS, mental health diagnosis, sleep apnea, morbid obesity)? @ -[Diabetes Was patient admitted / discharged? Hospital course, mention meds given and route, prescriptions, significant lab abnormalities, going to OR and other pertinent info. @ -[Patient is an 84-year-old woman here following syncopal episode. The physical exam unremarkable. Following the workup, the patient is reevaluated and feels well and would like to go home. Offered admission to have telemetry monitoring but the patient feels back at baseline and would prefer to go home. Discussed further care and follow-up as well as return parameters. Undiagnosed new problem with uncertain prognosis? @ -[No] Drug Therapy requiring intensive monitoring for toxicity (Heparin, Nitro, Insulin, Cardizem)? @ -[No] Were any procedures done? @ -[No] Diagnosis/symptom? @ -[Acute syncopal episode Acute hyperglycemia Acute, or Chronic, or Acute on Chronic? @ -[Acute Uncomplicated (without systemic symptoms) or Complicated (systemic symptoms)? @ -[Uncomplicated Side effects of treatment? @ -[No] Exacerbation, Progression, or Severe Exacerbation? @ -[No] Poses a threat to life or bodily function? How? (Chest pain, USA, VT, pneumonia, PE, COPD, DKA, ARF, appy, cholecystitis, CVA, Diverticulitis, Homicidal, Suicidal, threat to staff... and all critical care pts) @ -[No] All treatments are based on ideal body weight as in ED triage - Lab Data Result diagrams: 02/02/25 16:41 02/02/25 16:41 Lab Results 02/02/25 02/02/25 02/02/25 Range/Units 16:41 16:41 16:41 WBC 7.60 (4.50-10.00) 10*3/uL RBC 4.01 L (4.10-5.20) 10*6/uL Hgb 11.4 L (12.0-15.0) g/dL Hct 35.1 L (37.2-46.3) % MCV 87.5 (80.0-97.0) fL MCH 28.4 (27.0-32.0) pg MCHC 32.5 (32.0-37.0) g/dL Plt Count 182 (140-440) 10*3/uL MPV 11.5 (9.5-12.2) fL Immature Gran % (Auto) 0.5 % Neutrophils % 64.3 % Lymphocytes % 24.3 % Monocytes % 8.2 % Eosinophils % 1.6 % Basophils % 1.1 % Immature Gran # 0.04 (0.00-0.04) 10*3/uL Neutrophils # 4.89 (1.80-7.70) 10*3/uL Lymphocytes # 1.85 (0.90-5.00) 10*3/uL Monocytes # 0.62 (0.20-1.00) 10*3/uL Eosinophils # 0.12 (0.04-0.35) 10*3/uL Basophils # 0.08 (0.00-0.10) 10*3/uL PT 11.2 (10.0-12.5) sec INR 1.0 (<1.2) APTT 22.1 (22.0-30.0) sec Sodium 138 (137-145) mmol/L Potassium 4.2 (3.5-5.1) mmol/L Chloride 108 H (98-107) mmol/L Carbon Dioxide 19 L (22-30) mmol/L Anion Gap 11 mmol/L BUN 14 (7-17) mg/dL Creatinine 0.79 (0.52-1.04) mg/dL Est GFR (CKD-EPI)AfAm 80 (>60 ml/min/1.73 sqM) Est GFR (CKD-EPI)NonAf 70 (>60 ml/min/1.73 sqM) Glucose 304 H (74-99) mg/dL Calcium 8.3 L (8.4-10.2) mg/dL Magnesium 1.9 (1.6-2.3) mg/dL Total Bilirubin 0.8 (0.2-1.3) mg/dL AST 18 (14-36) U/L ALT 13 (4-34) U/L Alkaline Phosphatase 73 (38-126) U/L Troponin I (0.000-0.034) ng/mL NT-Pro-B Natriuret Pep 108 pg/mL Total Protein 5.5 L (6.3-8.2) g/dL Albumin 3.1 L (3.5-5.0) g/dL 02/02/25 Range/Units 16:41 WBC (4.50-10.00) 10*3/uL RBC (4.10-5.20) 10*6/uL Hgb (12.0-15.0) g/dL Hct (37.2-46.3) % MCV (80.0-97.0) fL MCH (27.0-32.0) pg MCHC (32.0-37.0) g/dL Plt Count (140-440) 10*3/uL MPV (9.5-12.2) fL Immature Gran % (Auto) % Neutrophils % % Lymphocytes % % Monocytes % % Eosinophils % % Basophils % % Immature Gran # (0.00-0.04) 10*3/uL Neutrophils # (1.80-7.70) 10*3/uL Lymphocytes # (0.90-5.00) 10*3/uL Monocytes # (0.20-1.00) 10*3/uL Eosinophils # (0.04-0.35) 10*3/uL Basophils # (0.00-0.10) 10*3/uL PT (10.0-12.5) sec INR (<1.2) APTT (22.0-30.0) sec Sodium (137-145) mmol/L Potassium (3.5-5.1) mmol/L Chloride (98-107) mmol/L Carbon Dioxide (22-30) mmol/L Anion Gap mmol/L BUN (7-17) mg/dL Creatinine (0.52-1.04) mg/dL Est GFR (CKD-EPI)AfAm (>60 ml/min/1.73 sqM) Est GFR (CKD-EPI)NonAf (>60 ml/min/1.73 sqM) Glucose (74-99) mg/dL Calcium (8.4-10.2) mg/dL Magnesium (1.6-2.3) mg/dL Total Bilirubin (0.2-1.3) mg/dL AST (14-36) U/L ALT (4-34) U/L Alkaline Phosphatase (38-126) U/L Troponin I <0.012 (0.000-0.034) ng/mL NT-Pro-B Natriuret Pep pg/mL Total Protein (6.3-8.2) g/dL Albumin (3.5-5.0) g/dL Disposition Clinical Impression: Syncope Disposition: HOME SELF-CARE Condition: Good Instructions (If sedation given, give patient instructions): Syncope (ED), Diabetic Hyperglycemia (ED) Is patient prescribed a controlled substance at d/c from ED?: No Referrals: None,Stated [Primary Care Provider] - 1-2 days
--- NOTE | 2025-02-02 17:03 | XR ---
EXAMINATION TYPE: XR chest 2V DATE OF EXAM: 02/02/2025 4:54 PM COMPARISON: Multiple prior chest radiograph, most recent dated 10/05/2024. CLINICAL INDICATION: Female, 84 years old with history of syncope; [facility] TECHNIQUE: XR chest 2V Frontal and lateral views of the chest. FINDINGS: Lungs/Pleura: There is no evidence of pleural effusion, focal consolidation, or pneumothorax. Pulmonary vascularity: Unremarkable. Heart/mediastinum: Cardiomediastinal silhouette is unremarkable. Musculoskeletal: No acute osseous pathology. Moderate mid thoracic spine compression deformity again visualized. Other findings: None IMPRESSION: No acute cardiopulmonary disease/process. [facility], , 02/02/2025 5:01 PM
[2025-02-02 17:06] LABS: ALT 13 U/L (4-34); AST 18 U/L (14-36); African American GFR (CKD) 80 (>60 ml/min/1.73 sqM); Albumin 3.1 g/dL (3.5-5.0); Alkaline Phosphatase 73 U/L (38-126); Anion Gap 11 mmol/L; Blood Urea Nitrogen 14 mg/dL (7-17); Calcium 8.3 mg/dL (8.4-10.2); Carbon Dioxide 19 mmol/L (22-30); Chloride 108 mmol/L (98-107); Glucose 304 mg/dL (74-99); Magnesium 1.9 mg/dL (1.6-2.3); Non-African American GFR(CKD) 70 (>60 ml/min/1.73 sqM); Potassium 4.2 mmol/L (3.5-5.1); Sodium 138 mmol/L (137-145); Total Bilirubin 0.8 mg/dL (0.2-1.3); Total Protein 5.5 g/dL (6.3-8.2)
[2025-02-02 17:14] LABS: NT-Pro-B-Type Natriuretic Pept 108 pg/mL
[2025-02-02 17:24] LABS: Partial Thromboplastin Time 22.1 sec (22.0-30.0); Prothrombin Time 11.2 sec (10.0-12.5)
[2025-02-02 18:15] VITALS: RESP 18
[2025-02-02] MEDS: INSULIN REGULAR 100 UNIT/ML VIAL (IV) SQ STA (18:33)
[2025-02-02 18:47] VITALS: BP 120/77; PULSE 85; TEMP 97.9
== END 2025-02-02 19:54 | disposition home or self-care (01) ==
LOC: EC 16:11
DX: R55 Syncope and collapse (principal); E11.65 Type 2 diabetes mellitus with hyperglycemia; Z88.0 Allergy status to penicillin; Z88.1 Allergy status to other antibiotic agents; Z88.2 Allergy status to sulfonamides; Z86.73 Personal history of transient ischemic attack (TIA), and cerebral infarction without residual deficits; Z79.4 Long term (current) use of insulin
CPT/HCPCS: 36415; 71046; 80053; 83735; 83880; 84484; 85025; 85610; 85730; 93005; 96360; 96361; 99285

== ENCOUNTER 2025-02-10 14:24 | Emergency (ER) | payer MEDICARE ==
[2025-02-10 14:33] VITALS: TEMP 98.5
--- NOTE | 2025-02-10 14:35 | ED ---
Fall HPI - General Chief Complaint: Fall Stated Complaint: AMS/Fall Time Seen by Provider: 02/10/25 14:30 Source: patient, EMS, RN notes reviewed Mode of arrival: EMS - History of Present Illness Initial Comments: This is an 84-year-old female who presents to the emergency department for frequent falls. Patient lives at [facility] with her daughter. She has reportedly fallen 2-3 times within the last couple of days. Patient states that she has no energy. She does not remember the fall that she had this morning. When EMS arrived she was sitting on the floor, states that she had essentially slipped out of a chair that time. Denies hitting her head during any of these falls. Denies any loss of consciousness. She is alert and oriented x 4, but does occasionally have bouts of confusion. Family states that she is prone to UTIs due to her chronic indwelling Dow catheter. Patient denies sustaining any injuries during the falls and denies any complaints at this time. MD Complaint: fall - Related Data Home Medications Medication Instructions Recorded Confirmed Apixaban [Eliquis] 5 mg PO BID 08/25/23 11/06/24 Atorvastatin [Lipitor] 40 mg PO HS 08/25/23 11/06/24 Escitalopram [Lexapro] 20 mg PO DAILY 08/25/23 11/06/24 Ferrous Sulfate [Iron (65 MG 325 mg PO HS 08/25/23 11/06/24 Elemental)] Levothyroxine Sodium [Synthroid] 12.5 mcg PO AC-BRKFST 08/25/23 11/06/24 Loperamide HCl [Imodium A-D] 2 mg PO QID PRN 08/25/23 11/06/24 Loratadine 10 mg PO HS 08/25/23 11/06/24 Montelukast [Singulair] 10 mg PO HS 08/25/23 11/06/24 Spiriva Respimat 1.25mcg/Actuation 1 puff INHALATION RT-DAILY 05/10/24 11/06/24 Mist Cholecalciferol [Vitamin D3 (25 50 mcg PO DAILY 10/08/24 11/06/24 Mcg = 1000 Iu)] Insulin Aspart [NovoLOG Flexpen] See Protocol SQ ACHS 10/08/24 11/06/24 Ipratropium-Albuterol Nebulize 3 ml INHALATION RT-QID PRN 10/08/24 11/06/24 [Duoneb 0.5 mg-3 mg/3 ml Soln] Rosuvastatin [Crestor] 20 mg PO DAILY 10/08/24 11/06/24 dilTIAZem HCL [Tiazac] 180 mg PO DAILY 10/08/24 11/06/24 Estradiol Cream [Estrace Cream 1 gm VAGINAL DIRECTED 11/06/24 11/06/24 0.01%] Previous Rx's Medication Instructions Recorded Budesonide-Formot 160-4.5 Mcg 2 puff INHALATION RT-BID #1 each 10/28/23 [Symbicort 160-4.5 Mcg Inhaler] Thiamine [Vitamin B-1] 100 mg PO DAILY tab 12/09/23 Losartan [Cozaar] 25 mg PO DAILY 30 Days #30 tab 05/14/24 Pantoprazole [Protonix] 40 mg PO AC-BRKFST 30 Days #30 tab 05/14/24 Lacosamide [Vimpat] 100 mg PO HS #4 tab 06/21/24 Meclizine [Antivert] 25 mg PO TID PRN #15 tab 11/04/24 Insulin Detemir (Levemir) [Levemir] 10 unit SQ HS #10 each 11/08/24 nitrofurantoin macrocrystaL 100 mg PO BID #20 capsule 12/11/24 [Macrodantin] Ciprofloxacin HCl [Cipro] 500 mg PO BID 7 Days #14 tab 02/10/25 Allergies Allergy/AdvReac Type Severity Reaction Status Date / Time Penicillins Allergy Rash/Hives Verified 02/02/25 16:18 cefepime AdvReac Confusion Verified 02/02/25 16:18 Sulfa (Sulfonamide AdvReac Unknown Verified 02/02/25 16:18 Antibiotics) Review of Systems ROS Statement: Those systems with pertinent positive or pertinent negative responses have been documented in the HPI. ROS Other: All systems not noted in ROS Statement are negative. Past Medical History Past Medical History: Atrial Fibrillation, CVA/TIA, Diabetes Mellitus, Hypertension, Memory Impairment Additional Past Medical History / Comment(s): UTI, falls History of Any Multi-Drug Resistant Organisms: VRE Date of last positivie culture/infection: 11/01/23 MDRO Source:: Urine Past Surgical History: Appendectomy Additional Past Surgical History / Comment(s): patient poor historian Past Anesthesia/Blood Transfusion Reactions: No Reported Reaction Past Psychological History: No Psychological Hx Reported Smoking Status: Unknown if ever smoked Past Alcohol Use History: None Reported Past Drug Use History: None Reported - Past Family History Father History Unknown: Yes General Exam Limitations: no limitations, altered mental status General appearance: alert, in no apparent distress Head exam: Present: atraumatic, normocephalic, normal inspection Eye exam: Present: normal appearance, PERRL, EOMI. Absent: scleral icterus, conjunctival injection, periorbital swelling Respiratory exam: Present: normal lung sounds bilaterally. Absent: respiratory distress, wheezes, rales, rhonchi, stridor Cardiovascular Exam: Present: regular rate, normal rhythm GI/Abdominal exam: Present: soft. Absent: distended, tenderness Extremities exam: Present: other (Full range of motion of the bilateral lower extremities. 2+ DP and PT pulses bilaterally) Neurological exam: Present: alert, oriented X3, CN II-XII intact Psychiatric exam: Present: normal affect, normal mood Skin exam: Present: warm, dry, intact, normal color. Absent: rash Course Vital Signs 02/10/25 02/10/25 14:31 16:13 Temperature 98.5 F Pulse Rate 88 86 Respiratory 18 15 Rate Blood Pressure 117/74 140/83 O2 Sat by Pulse 97 98 Oximetry Medical Decision Making - Medical Decision Making This is an 84 year old female who presents to the emergency department for weakness and frequent falls. Was pt. sent in by a medical professional or institution? @ -No Did you speak to anyone other than the patient for history? @ -EMS and family provided the majority of the history. Did you review nursing and triage notes? @ -Yes, and I agree, it is accurate with regards to the patient's symptoms. Were old charts reviewed? @ -No Differential Diagnosis? @ -Differential Weakness: Hypoglycemia, shock, sepsis, hyponatremia, anemia, infection, [place], ETOH, adverse medicine reaction, overdose, stroke, this is not meant to be an all-inclusive list. EKG interpreted by me (3pts min.)? @ -EKG interpreted by me demonstrating the following: Sinus rhythm. Ventricular rate 84 bpm, MD interval 155 ms, QRS duration 83 ms, QTc 405 ms. X-rays interpreted by me (1pt min.)? @ -Chest x-ray obtained, my interpretation identifies no localized consolidations or infiltrates. CT interpreted by me (1pt min.)? @ -CT scan of the brain obtained. My interpretation identifies no acute intracranial hemorrhage. U/S interpreted by me (1pt. min.)? @ -Not obtained What testing was considered but not performed? (CT, X-rays, U/S, labs)? Why? @ -None What meds were considered but not given? Why? @ -None Did you discuss the management of the patient with other professionals? @ -No Did you reconcile home meds? @ -No Was smoking cessation discussed for >3mins.? @ -No Was critical care preformed (if so, how long)? @ -No Were there social determinants of health that impacted care today? How? (Homelessness, low income, unemployed, alcoholism, drug addiction, transportation, low edu. Level, literacy, decrease access to med. care, [facility] [facility], rehab)? @ -No Was there de-escalation of care discussed even if they declined? (Discuss DNR or withdrawal of care, Hospice)? @ -No What co-morbidities impacted this encounter? (DM, HTN, Smoking, COPD, CAD, Cancer, CVA, Hep., AIDS, mental health diagnosis, sleep apnea, morbid obesity)? @ -DM, memory impairment Was patient admitted / discharged? @ -Discharged. Lab work demonstrates an elevated lactic acid of 3.0 and is otherwise unremarkable. 1L of IV fluids administered. Urinalysis consistent with infection and urine sent for culture. CT scan of the brain and C-spine revealed no acute process. Chest x-ray also revealed no acute findings. Patient has been in this facility multiple times for similar symptoms related to a UTI. When discussing disposition, patient is comfortable with discharge home. She is also at an assisted living facility. She is allergic to penicillins, cephalosporins, and sulfa. She has tolerated fluoroquinolones in the past. Prescription for ciprofloxacin provided. Initial dose administered in the emergency department. Patient discharged back to [facility] in stable co ndition. Case discussed with ED attending, Dr. Saldana. Return precautions reviewed in depth, the patient is instructed to return to the emergency department with any new, worsening, or concerning symptoms. Patient verbalized understanding. Undiagnosed new problem with uncertain prognosis? @ -None Drug Therapy requiring intensive monitoring for toxicity (Heparin, Nitro, Insulin, Cardizem)? @ -None Were any procedures done? @ -None Diagnosis/symptom? @ -UTI, fall Acute, or Chronic, or Acute on Chronic? @ -Acute Uncomplicated (without systemic symptoms) or Complicated (systemic symptoms)? @ -Uncomplicated Side effects of treatment? @ -None Exacerbation, Progression, or Severe Exacerbation] @ -Not applicable Poses a threat to life or bodily function? @ -No - Lab Data Result diagrams: 02/10/25 16:05 02/10/25 15:03 Lab Results 02/10/25 02/10/25 02/10/25 Range/Units 15:03 15:03 16:05 WBC 6.84 (4.50-10.00) 10*3/uL RBC 4.18 (4.10-5.20) 10*6/uL Hgb 11.7 L (12.0-15.0) g/dL Hct 36.1 L (37.2-46.3) % MCV 86.4 (80.0-97.0) fL MCH 28.0 (27.0-32.0) pg MCHC 32.4 (32.0-37.0) g/dL Plt Count 207 (140-440) 10*3/uL MPV 10.8 (9.5-12.2) fL Immature Gran % (Auto) 0.3 % Neutrophils % 65.8 % Lymphocytes % 22.7 % Monocytes % 8.8 % Eosinophils % 1.5 % Basophils % 0.9 % Immature Gran # 0.02 (0.00-0.04) 10*3/uL Neutrophils # 4.51 (1.80-7.70) 10*3/uL Lymphocytes # 1.55 (0.90-5.00) 10*3/uL Monocytes # 0.60 (0.20-1.00) 10*3/uL Eosinophils # 0.10 (0.04-0.35) 10*3/uL Basophils # 0.06 (0.00-0.10) 10*3/uL Sodium 136 L (137-145) mmol/L Potassium 4.6 (3.5-5.1) mmol/L Chloride 102 (98-107) mmol/L Carbon Dioxide 23 (22-30) mmol/L Anion Gap 11 mmol/L BUN 13 (7-17) mg/dL Creatinine 0.56 (0.52-1.04) mg/dL Est GFR (CKD-EPI)AfAm >90 (>60 ml/min/1.73 sqM) Est GFR (CKD-EPI)NonAf 86 (>60 ml/min/1.73 sqM) Glucose 202 H (74-99) mg/dL Plasma Lactic Acid [place] 3.0 H* (0.7-2.0) mmol/L Calcium 9.2 (8.4-10.2) mg/dL Magnesium 1.7 (1.6-2.3) mg/dL Total Bilirubin 1.2 (0.2-1.3) mg/dL AST 20 (14-36) U/L ALT 11 (4-34) U/L Alkaline Phosphatase 78 (38-126) U/L Creatine Kinase 30 (30-135) U/L Total Protein 6.5 (6.3-8.2) g/dL Albumin 3.7 (3.5-5.0) g/dL Urine Color Urine Appearance (Clear) Urine pH (5.0-8.0) Ur Specific [place] (1.001-1.035) Urine Protein (Negative) Urine Glucose (UA) (Negative) Urine Ketones (Negative) Urine Blood (Negative) Urine Nitrite (Negative) Urine Bilirubin (Negative) Urine Urobilinogen (<2.0) mg/dL Ur Leukocyte Esterase (Negative) Urine RBC (0-5) /hpf Urine WBC (0-5) /hpf Ur Squamous Epith Cells (0-4) /hpf Urine Bacteria (None) /hpf Urine Mucus (None) /hpf 02/10/25 Range/Units 16:13 WBC (4.50-10.00) 10*3/uL RBC (4.10-5.20) 10*6/uL Hgb (12.0-15.0) g/dL Hct (37.2-46.3) % MCV (80.0-97.0) fL MCH (27.0-32.0) pg MCHC (32.0-37.0) g/dL Plt Count (140-440) 10*3/uL MPV (9.5-12.2) fL Immature Gran % (Auto) % Neutrophils % % Lymphocytes % % Monocytes % % Eosinophils % % Basophils % % Immature Gran # (0.00-0.04) 10*3/uL Neutrophils # (1.80-7.70) 10*3/uL Lymphocytes # (0.90-5.00) 10*3/uL Monocytes # (0.20-1.00) 10*3/uL Eosinophils # (0.04-0.35) 10*3/uL Basophils # (0.00-0.10) 10*3/uL Sodium (137-145) mmol/L Potassium (3.5-5.1) mmol/L Chloride (98-107) mmol/L Carbon Dioxide (22-30) mmol/L Anion Gap mmol/L BUN (7-17) mg/dL Creatinine (0.52-1.04) mg/dL Est GFR (CKD-EPI)AfAm (>60 ml/min/1.73 sqM) Est GFR (CKD-EPI)NonAf (>60 ml/min/1.73 sqM) Glucose (74-99) mg/dL Plasma Lactic Acid [place] (0.7-2.0) mmol/L Calcium (8.4-10.2) mg/dL Magnesium (1.6-2.3) mg/dL Total Bilirubin (0.2-1.3) mg/dL AST (14-36) U/L ALT (4-34) U/L Alkaline Phosphatase (38-126) U/L Creatine Kinase (30-135) U/L Total Protein (6.3-8.2) g/dL Albumin (3.5-5.0) g/dL Urine Color Light Yellow Urine Appearance Clear (Clear) Urine pH 6.0 (5.0-8.0) Ur Specific [place] 1.018 (1.001-1.035) Urine Protein Negative (Negative) Urine Glucose (UA) Negative (Negative) Urine Ketones Negative (Negative) Urine Blood Negative (Negative) Urine Nitrite Positive H (Negative) Urine Bilirubin Negative (Negative) Urine Urobilinogen <2.0 (<2.0) mg/dL Ur Leukocyte Esterase Large H (Negative) Urine RBC 6 H (0-5) /hpf Urine WBC 47 H (0-5) /hpf Ur Squamous Epith Cells <1 (0-4) /hpf Urine Bacteria Rare H (None) /hpf Urine Mucus Few H (None) /hpf - Radiology Data Radiology results: report reviewed, image reviewed Disposition Clinical Impression: Fall, UTI (urinary tract infection) Disposition: HOME SELF-CARE Instructions (If sedation given, give patient instructions): Urinary Tract Infection in Women (ED), Fall Prevention for Older Adults (ED), Catheter- associated Urinary Tract Infection (ED) Additional Instructions: Return to the emergency department with any new, worsening, or concerning symptoms. Take the antibiotic as prescribed for 7 days. Follow up with your primary care provider in 1-2 days. Prescriptions: Ciprofloxacin HCl [Cipro] 500 mg PO BID 7 Days #14 tab Is patient prescribed a controlled substance at d/c from ED?: No Referrals: None,Stated [Primary Care Provider] - 1-2 days Time of Disposition: 17:44
[2025-02-10] MEDS: SODIUM CHLORIDE 0.9% 1,000 ML IV ONE (15:08)
[2025-02-10 15:36] LABS: ALT 11 U/L (4-34); African American GFR (CKD) >90 (>60 ml/min/1.73 sqM); Albumin 3.7 g/dL (3.5-5.0); Anion Gap 11 mmol/L; Blood Urea Nitrogen 13 mg/dL (7-17); Calcium 9.2 mg/dL (8.4-10.2); Carbon Dioxide 23 mmol/L (22-30); Chloride 102 mmol/L (98-107); Creatine Kinase 30 U/L (30-135); Glucose 202 mg/dL (74-99); Non-African American GFR(CKD) 86 (>60 ml/min/1.73 sqM); Sodium 136 mmol/L (137-145); Total Bilirubin 1.2 mg/dL (0.2-1.3); Total Protein 6.5 g/dL (6.3-8.2)
[2025-02-10 15:37] LABS: AST 20 U/L (14-36); Alkaline Phosphatase 78 U/L (38-126); Magnesium 1.7 mg/dL (1.6-2.3); Potassium 4.6 mmol/L (3.5-5.1)
--- NOTE | 2025-02-10 15:56 | CT ---
EXAMINATION TYPE: CT brain cspine wo con DATE OF EXAM: 02/10/2025 3:44 PM COMPARISON: 10/29/2024.. CLINICAL INDICATION: Female, 84 years old with history of Fall, AMS; Fall, AMS, pain TECHNIQUE: Brain: Multiple axial CT images of the brain were obtained without IV contrast. Cspine: Axial CT images from the skull base to the inferior aspect of T2 we obtained without intraven ous contrast. Coronal and sagittal reformatted images were also reviewed. . CT DLP: 1378.6 mGycm, Automated exposure control for dose reduction was used. FINDINGS: Brain: Extra-axial spaces: No abnormal extra-axial fluid collections. Ventricular system: Dilatation in proportion to cerebral atrophy. Cerebral parenchyma: Cerebral atrophy. No acute intraparenchymal hemorrhage or mass effect. The [place] -white junction is well differentiated. Scattered hypoattenuating areas are seen within the white mat ter. 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 Mineralization basal ganglia bilaterally. Cerebellum: Unremarkable. Mass effect: No evidence of midline shift. Intracranial vasculature: Atherosclerotic calcifications of the intracranial vessels. Soft tissues: Normal. Calvarium/osseous structures: No depressed skull fracture. Paranasal sinuses and mastoid air cells: Clear. Visualized orbits: Orbital contents are intact. Cervical spine: Fracture: None. Osseous structures: Multilevel degenerative disc disease changes with endplate spurring and disc oste ophyte complex's. T3 vertebral body sclerotic focus compatible with bone island. Vertebral alignment: Grade 1 anterolisthesis of C7 on T1 and C4 on C5. Spinal canal/Neural Foramina: No evidence of significant spinal canal narrowing. No evidence for sign ificant neural foraminal stenosis. Neck soft tissues: Prevertebral soft tissues are within normal limits. Other: The airway is patent. The lung apices are clear. IMPRESSION: 1. No acute intracranial process. 2. 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 Nonspecific white matter changes, likely secondary to chronic small vessel ischemic disease. 4. No evidence of cervical spine fracture. 5. Mild multilevel degenerative disc disease. 6. Grade 1 anterolisthesis of C7 on T1 and C4 on C5 7. 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
--- NOTE | 2025-02-10 16:00 | XR ---
EXAMINATION TYPE: XR chest 2V DATE OF EXAM: 02/10/2025 3:52 PM COMPARISON: Chest radiographs from 02/02/2025 CLINICAL INDICATION: Female, 84 years old with history of Fall, AMS; [facility] TECHNIQUE: XR chest 2V Frontal and lateral views of the chest. FINDINGS: Lungs/Pleura: There is no evidence of pleural effusion, focal consolidation, or pneumothorax. Pulmonary vascularity: Unremarkable. Heart/mediastinum: Cardiomediastinal silhouette is unremarkable. Musculoskeletal: No acute osseous pathology. Other findings: None IMPRESSION: No acute cardiopulmonary disease/process. [facility], , 02/10/2025 3:57 PM
[2025-02-10 16:24] LABS: Basophils # (A) 0.06 10*3/uL (0.00-0.10); Basophils % (A) 0.9 %; Eosinophils % (A) 1.5 %; HCT 36.1 % (37.2-46.3); HGB 11.7 g/dL (12.0-15.0); Lymphocytes # (A) 1.55 10*3/uL (0.90-5.00); Lymphocytes % (A) 22.7 %; MCHC 32.4 g/dL (32.0-37.0); MCV 86.4 fL (80.0-97.0); Mean Platelet Volume 10.8 fL (9.5-12.2); Monocytes % (A) 8.8 %; Neutrophils # (A) 4.51 10*3/uL (1.80-7.70); Neutrophils % (A) 65.8 %; Platelet Count 207 10*3/uL (140-440); RBC 4.18 10*6/uL (4.10-5.20); RDW 14.6 % (11.5-14.5); WBC 6.84 10*3/uL (4.50-10.00)
[2025-02-10 16:41] LABS: Appearance,Urine Clear (Clear); Bacteria,Urine Rare /hpf; Bilirubin,Urine Negative (Negative); Blood,Urine Negative (Negative); Color,Urine Light Yellow; Glucose,Urine (UA) Negative (Negative); Ketones,Urine Negative (Negative); Leukocyte Esterase,Urine Large (Negative); Mucus,Urine Few /hpf; Nitrite,Urine Positive (Negative); Protein,Urine Negative (Negative); RBC,Urine 6 /hpf (0-5); Specific Gravity,Urine 1.018 (1.001-1.035); Squamous Epithelial Cell,Urine <1 /hpf (0-4); Urobilinogen,Urine <2.0 mg/dL (<2.0); WBC,Urine 47 /hpf (0-5)
[2025-02-10 18:09] VITALS: BP 138/91; PULSE 96; RESP 12
[2025-02-10] MEDS: CIPROFLOXACIN HCL 500 MG TAB PO STA (18:09)
== END 2025-02-10 19:13 | disposition home or self-care (01) ==
LOC: EC 14:24
DX: N39.0 Urinary tract infection, site not specified (principal); E11.9 Type 2 diabetes mellitus without complications; G31.84 Mild cognitive impairment of uncertain or unknown etiology; Z88.2 Allergy status to sulfonamides; Z88.0 Allergy status to penicillin; Z79.01 Long term (current) use of anticoagulants; Z88.1 Allergy status to other antibiotic agents; W01.0XXA Fall on same level from slipping, tripping and stumbling without subsequent striking against object, initial encounter
CPT/HCPCS: 36415; 70450; 71046; 72125; 80053; 81001; 82550; 83605; 83735; 85025; 87086; 93005; 96360; 96361; 99285

== ENCOUNTER 2025-02-14 16:17 | Observation (INO) | payer MEDICARE ==
[2025-02-14] MEDS: SODIUM CHLORIDE 0.9% 500 ML 500 ML IV STA (16:58)
[2025-02-14 17:02] LABS: Glucose,Whole Blood 267 mg/dL (70-110)
--- NOTE | 2025-02-14 17:03 | ED ---
General Adult HPI - General Stated complaint: ABD Pain Time Seen by Provider: 02/14/25 16:18 - History of Present Illness Initial comments: Patient is an 84-year-old female presenting today for near syncopal episode. Patient is a poor historian so vast majority of history is obtained by EMS and patient's daughter. Patient was reportedly sitting on the toilet today attempting to have a bowel movement when she became very sleepy, and appeared to nearly pass out. She was able to pass a large amount of stool, per EMS that was nonbloody and nonmelanotic. Patient currently denies any complaints,denies chest pain, abdominal pain, nausea, headache, vomiting, shortness of breath. Pt's daughter states the patient was recently seen in the ED and started on antibiotics for a UTI. Patient is currently oriented to person and city, but not date or situation. Pt's daughter states this is not out of the norm for her when she has a UTI and is not new today. - Related Data Home Medications Medication Instructions Recorded Confirmed Apixaban [Eliquis] 5 mg PO BID 08/25/23 02/15/25 Escitalopram [Lexapro] 20 mg PO DAILY 08/25/23 02/15/25 Ferrous Sulfate [Iron (65 MG 325 mg PO HS 08/25/23 02/15/25 Elemental)] Levothyroxine Sodium [Synthroid] 12.5 mcg PO AC-BRKFST 08/25/23 02/15/25 Loperamide HCl [Imodium A-D] 2 mg PO QID PRN 08/25/23 02/15/25 Montelukast [Singulair] 10 mg PO HS 08/25/23 02/15/25 Spiriva Respimat 1.25mcg/Actuation 1 puff INHALATION RT-DAILY 05/10/24 02/15/25 Mist Insulin Aspart [NovoLOG Flexpen] See Protocol SQ AC-TID 10/08/24 02/15/25 Ipratropium-Albuterol Nebulize 3 ml INHALATION RT-QID PRN 10/08/24 02/15/25 [Duoneb 0.5 mg-3 mg/3 ml Soln] Rosuvastatin [Crestor] 20 mg PO DAILY 10/08/24 02/15/25 dilTIAZem HCL [Tiazac] 180 mg PO DAILY 10/08/24 02/15/25 Colchicine 0.6 - 1.2 mg PO DIRECTED PRN 02/15/25 02/15/25 Insulin Glargine (Lantus) [Lantus 10 unit SQ HS 02/15/25 02/15/25 Vial] Previous Rx's Medication Instructions Recorded Budesonide-Formot 160-4.5 Mcg 2 puff INHALATION RT-BID #1 each 10/28/23 [Symbicort 160-4.5 Mcg Inhaler] Thiamine [Vitamin B-1] 100 mg PO DAILY tab 12/09/23 Losartan [Cozaar] 25 mg PO DAILY 30 Days #30 tab 05/14/24 Pantoprazole [Protonix] 40 mg PO AC-BRKFST 30 Days #30 tab 05/14/24 Lacosamide [Vimpat] 100 mg PO HS #4 tab 06/21/24 Allergies Allergy/AdvReac Type Severity Reaction Status Date / Time Penicillins Allergy Rash/Hives Verified 02/15/25 10:30 cefepime AdvReac Confusion Verified 02/15/25 10:30 Sulfa (Sulfonamide AdvReac Unknown Verified 02/15/25 10:30 Antibiotics) Review of Systems ROS Statement: Those systems with pertinent positive or pertinent negative responses have been documented in the HPI. ROS Other: All systems not noted in ROS Statement are negative. Past Medical History Past Medical History: Atrial Fibrillation, CVA/TIA, Diabetes Mellitus, Hypertension, Memory Impairment Additional Past Medical History / Comment(s): UTI, falls History of Any Multi-Drug Resistant Organisms: VRE Date of last positivie culture/infection: 11/01/23 MDRO Source:: Urine Past Surgical History: Appendectomy Additional Past Surgical History / Comment(s): patient poor historian Past Anesthesia/Blood Transfusion Reactions: No Reported Reaction Past Psychological History: No Psychological Hx Reported Smoking Status: Unknown if ever smoked Past Alcohol Use History: None Reported Past Drug Use History: None Reported - Past Family History Father History Unknown: Yes General Exam - General Exam Comments Initial Comments: PE: CONSTITUTIONAL: No apparent distress, well appearing SKIN: Warm, dry, no jaundice, hives or petechiae EYES: Pupils are equally round, extraocular movements intact without nystagmus, clear conjunctiva, non-icteric sclera HENT: Normocephalic, atraumatic, moist mucus membranes, oropharynx clear without exudates NECK: , Full range of motion, normal appearance PULMONARY: Clear to auscultation without wheezes, rhonchi, or rales, normal excursion, no accessory muscle use and no stridor CARDIOVASCULAR: Regular rate, rhythm, normal S1 and S2. No appreciated murmurs, rubs or gallops. Strong radial pulses with intact distal perfusion. No lower extremity edema GASTROINTESTINAL: Soft, active bowel sounds throughout, non-tender, non- distended, no palpable masses, no rebound or guarding. No hepatosplenomegaly GENITOURINARY: MUSCULOSKELETAL: Extremities have no gross deformity, no edema, redness, or swelling. No calf swelling NEUROLOGIC:_a/o x 1-2, GCS 14, somewhat confused mentation, difficulty providing details of what brought her here today, and clear speech. Moves all extremities x 4 without motor or sensory deficit PSYCHIATRIC:_normal mood and affect, thought process is somewhat confused and tangential Course Vital Signs 02/14/25 02/14/25 02/14/25 16:40 19:55 22:21 Temperature 98.2 F 97.9 F 98.2 F Pulse Rate 78 87 84 Respiratory 18 18 18 Rate Blood Pressure 140/71 158/80 133/65 O2 Sat by Pulse 96 97 97 Oximetry EKG Findings - EKG Comments: EKG Findings:: Sinus rhythm with respiratory variation, normal intervals, rate 82 bpm, normal axis, no ST elevations or depressions Medical Decision Making - Medical Decision Making Was pt. sent in by a medical professional or institution (, PA, CRAB STEAMER, urgent care, hospital, or longterm...) When possible be specific @ -No Did you speak to anyone other than the patient for history (EMS, parent, family, police, friend...)? What history was obtained from this source @ -I spoke with patient's daughter who assisted in providing history, stating that patient and her single episode today while having a bowel movement, her current mentation is not an acute change Did you review nursing and triage notes (agree or disagree)? Why? @ -I reviewed nursing and triage notes- I disagree with triage note, triage note states the patient has been having abdominal pain, patient denies any abdominal pain and has a soft and nontender abdomen, I agree with remainder of triage note Were old charts reviewed (outside hosp., previous admission, EMS record, old EKG, old radiological studies, urgent care reports/EKG's, longterm records)? Report findings @ -Medical records reviewed reviewed ED visit note from 02/10/2025 when patient had presented for frequent falls, reviewed CT brain C-spine done at that time that showed no acute process, patient is ultimately discharged with diagnosis of urinary tract infection Differential Diagnosis (chest pain, altered mental status, abdominal pain women, abdominal pain men, vaginal bleeding, weakness, fever, dyspnea, syncope, headache, dizziness, GI bleed, back pain, seizure, CVA, palpatations, mental health, musculoskeletal)? @Differential Syncope: Valvular disease, hypertrophic cardiomyopathy, pulmonary embolism, tamponade, tachycardia, bradycardia, NE, hypovolemia, hemorrhage, dissection, anemia, intracranial hemorrhage, seizure, hypoglycemia, carbon monoxide poisoning, this is not meant to be an all-inclusive list. EKG interpreted by me (3pts min.). @ -As above X-rays interpreted by me (1pt min.). @Personally reviewed chest x-ray see no evidence of cardiomegaly, pneumothorax or consolidations I agree with radiologist interpretation CT interpreted by me (1pt min.). @ -None done U/S interpreted by me (1pt. min.). @ -None done What testing was considered but not performed or refused? (CT, X-rays, U/S, labs)? Why? CT brain was considered given patient being a poor historian oriented x 1-2 however after confirming with patient's daughter that her mentation has remained stable since her recent visit to the ED , which included negative imaging of the brain, I do not feel repeat imaging is indicated What meds were considered but not given or refused? Why? @ -None Did you discuss the management of the patient with other professionals (professionals i.e. , PA, CRAB STEAMER, lab, RT, psych nurse, social and human services assistant, mohs surgeon, teacher, court collections officer, continuous pillowcase cutter)? Give summary @ -No Was smoking cessation discussed for >3mins.? @ -No Was critical care preformed (if so, how long)? @ -No Were there social determinants of health that impacted care today? How? (Homelessness, low income, unemployed, alcoholism, drug addiction, transportation, low edu. Level, literacy, decrease access to med. care, longterm, rehab)? @ -No Was there de-escalation of care discussed even if they declined (Discuss DNR or withdrawal of care, Hospice)? @ -No What co-morbidities impacted this encounter? (DM, HTN, Smoking, COPD, CAD, Cancer, CVA, ARF, Chemo, Hep., AIDS, mental health diagnosis, sleep apnea, morbid obesity)? @ -Memory impairment Was patient admitted / discharged? Hospital course, mention meds given and route, prescriptions, significant lab abnormalities, going to OR and other pertinent info. @ Admission- This is a pleasant 84 y/o female, hx Atrial fibrillation, prior CVA, diabetes, hypertension memory impairment presenting for near syncope while having a hard BM today. Vitally stable and asymptomatic on arrival. Abdomen soft and nontender, oriented x 1-2without focal neurologic deficits. Patient's daughter states that her mentation is stable since her recent diagnosis of UTI. Plan for cardiac labs, anticipate admission for high-risk syncope due to pt history. Labs and imaging reviewed. Grossly within normal limits. Abnormal values not concerning for acute pathology related to presenting complaint. Updated patient of findings and plan for admission. She is agreeable plan of care. Case was discussed with CRISTOBAL Barron, who kindly accepted patient for admission Undiagnosed new problem with uncertain prognosis? @ -No Drug Therapy requiring intensive monitoring for toxicity (Heparin, Nitro, Insulin, Cardizem)? @ -No Were any procedures done? @ -No Diagnosis/symptom? @ -Near syncope, hyperglycemia Acute, or Chronic, or Acute on Chronic? Acute Uncomplicated (without systemic symptoms) or Complicated (systemic symptoms)? Complicated Side effects of treatment? @ -No Exacerbation, Progression, or Severe Exacerbation? @ -No Poses a threat to life or bodily function? How? (Chest pain, USA, NE, pneumonia, PE, COPD, DKA, ARF, appy, cholecystitis, CVA, Diverticulitis, Homicidal, Suicidal, threat to staff... and all critical care pts) @ -Potentially - Lab Data Result diagrams: 02/14/25 16:58 02/14/25 16:58 Lab Results 02/14/25 02/14/25 02/14/25 Range/Units 16:58 16:58 16:58 WBC 7.65 (4.50-10.00) 10*3/uL RBC 4.36 (4.10-5.20) 10*6/uL Hgb 12.3 (12.0-15.0) g/dL Hct 37.2 (37.2-46.3) % MCV 85.3 (80.0-97.0) fL MCH 28.2 (27.0-32.0) pg MCHC 33.1 (32.0-37.0) g/dL Plt Count 233 (140-440) 10*3/uL MPV 10.9 (9.5-12.2) fL Immature Gran % (Auto) 0.5 % Neutrophils % 70.6 % Lymphocytes % 19.1 % Monocytes % 7.6 % Eosinophils % 1.4 % Basophils % 0.8 % Immature Gran # 0.04 (0.00-0.04) 10*3/uL Neutrophils # 5.40 (1.80-7.70) 10*3/uL Lymphocytes # 1.46 (0.90-5.00) 10*3/uL Monocytes # 0.58 (0.20-1.00) 10*3/uL Eosinophils # 0.11 (0.04-0.35) 10*3/uL Basophils # 0.06 (0.00-0.10) 10*3/uL PT 10.3 (10.0-12.5) sec INR 0.9 (<1.2) APTT 20.6 L (22.0-30.0) sec Sodium 136 L (137-145) mmol/L Potassium 4.2 (3.5-5.1) mmol/L Chloride 103 (98-107) mmol/L Carbon Dioxide 23 (22-30) mmol/L Anion Gap 10 mmol/L BUN 12 (7-17) mg/dL Creatinine 0.69 (0.52-1.04) mg/dL Est GFR (CKD-EPI)AfAm >90 (>60 ml/min/1.73 sqM) Est GFR (CKD-EPI)NonAf 80 (>60 ml/min/1.73 sqM) Glucose 280 H (74-99) mg/dL POC Glucose (mg/dL) (70-110) mg/dL POC Glu Paralegal Supervisor ID Calcium 8.4 (8.4-10.2) mg/dL Magnesium 1.8 (1.6-2.3) mg/dL Total Bilirubin 0.6 (0.2-1.3) mg/dL AST 16 (14-36) U/L ALT 10 (4-34) U/L Alkaline Phosphatase 86 (38-126) U/L Troponin I (0.000-0.034) ng/mL Total Protein 6.1 L (6.3-8.2) g/dL Albumin 3.5 (3.5-5.0) g/dL Lipase 39 (23-300) U/L 02/14/25 02/14/25 Range/Units 16:58 17:00 WBC (4.50-10.00) 10*3/uL RBC (4.10-5.20) 10*6/uL Hgb (12.0-15.0) g/dL Hct (37.2-46.3) % MCV (80.0-97.0) fL MCH (27.0-32.0) pg MCHC (32.0-37.0) g/dL Plt Count (140-440) 10*3/uL MPV (9.5-12.2) fL Immature Gran % (Auto) % Neutrophils % % Lymphocytes % % Monocytes % % Eosinophils % % Basophils % % Immature Gran # (0.00-0.04) 10*3/uL Neutrophils # (1.80-7.70) 10*3/uL Lymphocytes # (0.90-5.00) 10*3/uL Monocytes # (0.20-1.00) 10*3/uL Eosinophils # (0.04-0.35) 10*3/uL Basophils # (0.00-0.10) 10*3/uL PT (10.0-12.5) sec INR (<1.2) APTT (22.0-30.0) sec Sodium (137-145) mmol/L Potassium (3.5-5.1) mmol/L Chloride (98-107) mmol/L Carbon Dioxide (22-30) mmol/L Anion Gap mmol/L BUN (7-17) mg/dL Creatinine (0.52-1.04) mg/dL Est GFR (CKD-EPI)AfAm (>60 ml/min/1.73 sqM) Est GFR (CKD-EPI)NonAf (>60 ml/min/1.73 sqM) Glucose (74-99) mg/dL POC Glucose (mg/dL) 267 H (70-110) mg/dL POC Glu Paralegal Supervisor ID Tiff Sheth Calcium (8.4-10.2) mg/dL Magnesium (1.6-2.3) mg/dL Total Bilirubin (0.2-1.3) mg/dL AST (14-36) U/L ALT (4-34) U/L Alkaline Phosphatase (38-126) U/L Troponin I <0.012 (0.000-0.034) ng/mL Total Protein (6.3-8.2) g/dL Albumin (3.5-5.0) g/dL Lipase (23-300) U/L Disposition Clinical Impression: Near syncope Disposition: ADMITTED IP TO THIS HOSP Condition: Stable
[2025-02-14 17:04] LABS: Basophils # (A) 0.06 10*3/uL (0.00-0.10); Basophils % (A) 0.8 %; Eosinophils # (A) 0.11 10*3/uL (0.04-0.35); Eosinophils % (A) 1.4 %; HCT 37.2 % (37.2-46.3); HGB 12.3 g/dL (12.0-15.0); Lymphocytes # (A) 1.46 10*3/uL (0.90-5.00); Lymphocytes % (A) 19.1 %; MCH 28.2 pg (27.0-32.0); MCHC 33.1 g/dL (32.0-37.0); MCV 85.3 fL (80.0-97.0); Mean Platelet Volume 10.9 fL (9.5-12.2); Monocytes # (A) 0.58 10*3/uL (0.20-1.00); Monocytes % (A) 7.6 %; Neutrophils % (A) 70.6 %; Platelet Count 233 10*3/uL (140-440); RBC 4.36 10*6/uL (4.10-5.20); RDW 13.9 % (11.5-14.5); WBC 7.65 10*3/uL (4.50-10.00)
[2025-02-14 17:22] LABS: INR 0.9 (<1.2); Prothrombin Time 10.3 sec (10.0-12.5)
[2025-02-14 17:34] LABS: ALT 10 U/L (4-34); AST 16 U/L (14-36); African American GFR (CKD) >90 (>60 ml/min/1.73 sqM); Albumin 3.5 g/dL (3.5-5.0); Alkaline Phosphatase 86 U/L (38-126); Anion Gap 10 mmol/L; Blood Urea Nitrogen 12 mg/dL (7-17); Calcium 8.4 mg/dL (8.4-10.2); Carbon Dioxide 23 mmol/L (22-30); Chloride 103 mmol/L (98-107); Glucose 280 mg/dL (74-99); Lipase 39 U/L (23-300); Magnesium 1.8 mg/dL (1.6-2.3); Non-African American GFR(CKD) 80 (>60 ml/min/1.73 sqM); Partial Thromboplastin Time 20.6 sec (22.0-30.0); Potassium 4.2 mmol/L (3.5-5.1); Sodium 136 mmol/L (137-145); Total Bilirubin 0.6 mg/dL (0.2-1.3); Total Protein 6.1 g/dL (6.3-8.2)
--- NOTE | 2025-02-14 17:45 | XR ---
EXAMINATION TYPE: XR chest 2V DATE OF EXAM: 02/14/2025 5:39 PM COMPARISON: 02/10/2025 CLINICAL INDICATION: Female, 84 years old with history of syncope: Shortness of breath TECHNIQUE: XR chest 2V views of the chest are obtained. FINDINGS: Scattered senescent parenchymal changes noted. Hyperinflation compatible with COPD. No evidence for infiltrate. No evidence for atelectasis. Heart size is stable. Mediastinal structures are stable and grossly unremarkable. No evidence for hilar prominence. Degenerative changes dorsal spine. IMPRESSION: 1. No evidence for acute pulmonary disease. [facility], , 02/14/2025 5:43 PM
[2025-02-14] MEDS ORDERED: NALOXONE 0.4 MG/ML 1 ML VIAL IV PRN (19:47)
[2025-02-14] MEDS ORDERED: ACETAMINOPHEN TAB 325 MG TAB PO PRN (19:47)
[2025-02-14] MEDS ORDERED: ALPRAZolam 0.25 MG TAB PO PRN (19:47)
[2025-02-14] MEDS ORDERED: HEPARIN SODIUM,PORCINE 5,000 UNIT/ML 1 ML VIAL SQ SCH (21:00)
[2025-02-14] MEDS: FAMOTIDINE 20 MG TAB PO SCH (21:40)
[2025-02-14] MEDS: APIXABAN 5 MG TAB PO SCH (22:40)
[2025-02-14] MEDS: LACOSAMIDE 50 MG TABLET PO SCH (22:41)
[2025-02-14] MEDS: CIPROFLOXACIN HCL 500 MG TAB PO SCH (22:41)
[2025-02-14] MEDS: LORATADINE 10 MG TAB PO SCH (22:41)
[2025-02-14 22:47] LABS: Glucose,Whole Blood 264 mg/dL (70-110)
[2025-02-14] MEDS: INSULIN GLARGINE (LANTUS) 100 UNIT/ML SYR SQ SCH (22:47)
[2025-02-15 05:58] LABS: Glucose,Whole Blood 156 mg/dL (70-110)
[2025-02-15] MEDS: INSULIN LISPRO (HumaLOG) 100 UNIT/ML 10 mL VL SQ SCH (06:17)
[2025-02-15] MEDS: PANTOPRAZOLE 40 MG TABLET PO SCH (06:17)
[2025-02-15] MEDS: LEVOTHYROXINE 25 MCG TAB PO SCH (06:17)
[2025-02-15] MEDS: IPRATROPIUM-ALBUTEROL 3 ML NEB INHALATION PRN (09:17)
[2025-02-15] MEDS: SYMBICORT 160-4.5 MCG INHALER INHALATION SCH (09:17)
[2025-02-15] MEDS: DILTIAZEM CD 180 MG CAP.ER.24H PO SCH (09:36)
[2025-02-15] MEDS: CHOLECALCIFEROL 25 MCG (1000 IU) TABLET PO SCH (09:36)
[2025-02-15] MEDS: ESCITALOPRAM 20 MG TAB PO SCH (09:36)
[2025-02-15] MEDS: LOSARTAN 25 MG TAB PO SCH (09:36)
[2025-02-15 11:59] LABS: Glucose,Whole Blood 341 mg/dL (70-110)
--- NOTE | 2025-02-15 12:55 | P.CRDCN ---
History of Present Illness Consult date: 02/15/25 Reason for Consult (text): Syncope History of present illness: This is an 84-year-old female with past medical history of paroxysmal atrial fib rillation, hypertension, dyslipidemia, history of subdural hemorrhage, diabetes type 2, hypothyroidism, dementia. We have been asked to evaluate patient for syncope. Patient did have a hospitalization in April 2024 and was seen by cardiology at that time for syncopal episode likely related to reflect syncope with orthostatic hypotension versus vasovagal syncope. Patient apparently resides with her daughter. She has had some memory issues but she apparently was up to the bathroom for bowel movement and was sitting on the toilet when apparently she passed out. She had passed a large amount of stool that was nonbloody. Patient denies feeling lightheaded. She denies fever or chills, no cough. She states she feels okay at this time. Patient has been started on antibiotics for urinary tract infection. Regarding atrial fibrillation, patient's skin sometimes feels when it is racing but is not noticing that now. Blood pressure 147/85, heart rate 89, pulse ox 94% on room air. -EKG: Sinus rhythm 82 bpm, #2 sinus rhythm with PACs 88 bpm. -Chest x-ray: No acute process. -Laboratory studies: Troponin negative x 3. CBC within normal limits. Creatinine 0.69. -Home cardiac medications: Eliquis 5 mg twice daily, losartan 25 mg daily, rosuvastatin 20 mg daily. -Echocardiogram performed 05/12/2024 revealed EF of 55%. Poorly visualized intracardiac valves. Review Of Systems: At the time of my exam: CONSTITUTIONAL: Denies fever or chills. HEENT: Denies blurred vision, vision changes, or eye pain. Denies hemoptysis CARDIOVASCULAR: Denies chest pain. Denies orthopnea. Denies PND. Denies palpitations RESPIRATORY: Denies shortness of breath. GASTROINTESTINAL: Denies abdominal pain. Denies nausea or vomiting. HEMATOLOGIC: Denies bleeding disorders. GENITOURINARY: Denies any blood in urine. SKIN: Denies puritis. Denies rash. Physical examination: Gen: This is 84-year-old female in no acute distress VS: reviewed HEENT: Head is atraumatic, normocephalic. Pupils equal, round. Sclerae is anicteric. NECK: Supple. No JVD. LUNGS: Clear to auscultation. No wheezes or rhonchi. No intercostal retractions. HEART: Regular rate and rhythm. Systolic murmur. ABDOMEN: Soft No tenderness. EXTREMITIES: No pedal edema. No calf tenderness. NEUROLOGICAL: Patient is awake. Assessment: Syncopal episode possibly related to atrial fibrillation, possibly vasovagal Paroxysmal atrial fibrillation currently in sinus rhythm Hypertension Dyslipidemia History of subdural hemorrhage Diabetes mellitus type 2 Hypothyroidism Dementia Plan: Resume patient's home cardiac medications Obtain 30-day event monitor Obtain 2-D echocardiogram and Doppler study to assess cardiac structure and fu nction Patient is cleared for discharge and may follow-up in the office in 5-6 weeks. Thank you kindly for this consultation. Nurse practitioner note has been reviewed, I agree with documented findings and plan of care. Patient was seen and examined. Past Medical History Past Medical History: Atrial Fibrillation, CVA/TIA, Diabetes Mellitus, Hypertension, Memory Impairment Additional Past Medical History / Comment(s): UTI, falls History of Any Multi-Drug Resistant Organisms: VRE Date of last positivie culture/infection: 11/01/23 MDRO Source:: Urine Past Surgical History: Appendectomy Additional Past Surgical History / Comment(s): patient poor historian Past Anesthesia/Blood Transfusion Reactions: No Reported Reaction Past Psychological History: No Psychological Hx Reported Smoking Status: Unknown if ever smoked Past Alcohol Use History: None Reported Past Drug Use History: None Reported - Past Family History Father History Unknown: Yes Medications and Allergies Home Medications Medication Instructions Recorded Confirmed Type Apixaban [Eliquis] 5 mg PO BID 08/25/23 02/15/25 History Escitalopram [Lexapro] 20 mg PO DAILY 08/25/23 02/15/25 History Ferrous Sulfate [Iron (65 MG 325 mg PO HS 08/25/23 02/15/25 History Elemental)] Levothyroxine Sodium [Synthroid] 12.5 mcg PO AC-BRKFST 08/25/23 02/15/25 History Loperamide HCl [Imodium A-D] 2 mg PO QID PRN 08/25/23 02/15/25 History Montelukast [Singulair] 10 mg PO HS 08/25/23 02/15/25 History Budesonide-Formot 160-4.5 Mcg 2 puff INHALATION RT-BID #1 each 10/28/23 02/15/25 Rx [Symbicort 160-4.5 Mcg Inhaler] Thiamine [Vitamin B-1] 100 mg PO DAILY tab 12/09/23 02/15/25 Rx Spiriva Respimat 1.25mcg/Actuation 1 puff INHALATION RT-DAILY 05/10/24 02/15/25 History Mist Losartan [Cozaar] 25 mg PO DAILY 30 Days #30 tab 05/14/24 02/15/25 Rx Pantoprazole [Protonix] 40 mg PO AC-BRKFST 30 Days #30 tab 05/14/24 02/15/25 Rx Lacosamide [Vimpat] 100 mg PO HS #4 tab 06/21/24 02/15/25 Rx Insulin Aspart [NovoLOG Flexpen] See Protocol SQ AC-TID 10/08/24 02/15/25 History Ipratropium-Albuterol Nebulize 3 ml INHALATION RT-QID PRN 10/08/24 02/15/25 History [Duoneb 0.5 mg-3 mg/3 ml Soln] Rosuvastatin [Crestor] 20 mg PO DAILY 10/08/24 02/15/25 History dilTIAZem HCL [Tiazac] 180 mg PO DAILY 10/08/24 02/15/25 History Ciprofloxacin HCl [Cipro] 500 mg PO BID 7 Days #14 tab 02/10/25 02/15/25 Rx Colchicine 0.6 - 1.2 mg PO DIRECTED PRN 02/15/25 02/15/25 History Insulin Glargine (Lantus) [Lantus 10 unit SQ HS 02/15/25 02/15/25 History Vial] Allergies Allergy/AdvReac Type Severity Reaction Status Date / Time Penicillins Allergy Rash/Hives Verified 02/15/25 10:30 cefepime AdvReac Confusion Verified 02/15/25 10:30 Sulfa (Sulfonamide AdvReac Unknown Verified 02/15/25 10:30 Antibiotics) Physical Exam Vitals: Vital Signs Temp Pulse Pulse Resp BP BP BP 02/15/25 09:29 85 02/15/25 09:18 87 02/15/25 07:10 97.9 F 89 19 147/85 02/15/25 01:39 98.0 F 83 18 148/72 02/14/25 23:20 97.9 F 84 20 135/65 02/14/25 22:21 98.2 F 84 18 133/65 02/14/25 19:55 97.9 F 87 18 158/80 02/14/25 16:40 98.2 F 78 18 140/71 Pulse Ox 02/15/25 09:29 02/15/25 09:18 02/15/25 07:10 94 L 02/15/25 01:39 96 02/14/25 23:20 97 02/14/25 22:21 97 02/14/25 19:55 97 02/14/25 16:40 96 Intake and Output 02/14/25 02/15/25 02/15/25 22:59 06:59 14:59 Intake Total 118 Output Total 1200 400 Balance -1200 -400 118 Intake: Oral 118 Output: Urine 1200 400 Other: Voiding Method Indwelling Catheter Indwelling Catheter Weight 106.594 kg 106.594 kg Results 02/14/25 16:58 02/14/25 16:58 Cardiac Enzymes 02/14/25 02/14/25 02/14/25 Range/Units 16:58 16:58 19:54 AST 16 (14-36) U/L Troponin I <0.012 <0.012 (0.000-0.034) ng/mL 02/14/25 02/15/25 Range/Units 20:43 00:10 AST (14-36) U/L Troponin I <0.012 <0.012 (0.000-0.034) ng/mL Coagulation 02/14/25 Range/Units 16:58 PT 10.3 (10.0-12.5) sec APTT 20.6 L (22.0-30.0) sec CBC 02/14/25 Range/Units 16:58 WBC 7.65 (4.50-10.00) 10*3/uL RBC 4.36 (4.10-5.20) 10*6/uL Hgb 12.3 (12.0-15.0) g/dL Hct 37.2 (37.2-46.3) % Plt Count 233 (140-440) 10*3/uL Comprehensive Metabolic Panel 02/14/25 Range/Units 16:58 Sodium 136 L (137-145) mmol/L Potassium 4.2 (3.5-5.1) mmol/L Chloride 103 (98-107) mmol/L Carbon Dioxide 23 (22-30) mmol/L BUN 12 (7-17) mg/dL Creatinine 0.69 (0.52-1.04) mg/dL Glucose 280 H (74-99) mg/dL Calcium 8.4 (8.4-10.2) mg/dL AST 16 (14-36) U/L ALT 10 (4-34) U/L Alkaline Phosphatase 86 (38-126) U/L Total Protein 6.1 L (6.3-8.2) g/dL Albumin 3.5 (3.5-5.0) g/dL Current Medications Generic Name Dose Route Start Last Admin Trade Name Freq PRN Reason Stop Dose Admin Acetaminophen 650 mg 02/14/25 19:47 Acetaminophen Tab 325 Mg Tab PO Q6HR PRN Mild Pain or Fever > 100.5 Albuterol/Ipratropium 3 ml 02/14/25 21:46 02/15/25 09:17 Ipratropium-Albuterol 3 Ml Neb INHALATION 3 ml RT-QID PRN Administration Shortness Of Breath Alprazolam 0.25 mg 02/14/25 19:47 Alprazolam 0.25 Mg Tab PO Q6HR PRN Anxiety Apixaban 5 mg 02/14/25 22:15 02/15/25 09:36 Apixaban 5 Mg Tab PO 5 mg BID MARGOTH Administration Protocol Atorvastatin Calcium 40 mg 02/15/25 21:00 Atorvastatin 40 Mg Tab PO [facility] Budesonide/Formoterol Fumarate 2 puff 02/15/25 08:00 02/15/25 09:17 Symbicort 160-4.5 Mcg Inhaler INHALATION 2 puff RT-BID MARGOTH Administration Cholecalciferol 50 mcg 02/15/25 09:00 02/15/25 09:36 Cholecalciferol 25 Mcg (1000 Iu) Tablet PO 50 mcg DAILY MARGOTH Administration Ciprofloxacin 500 mg 02/14/25 22:15 02/15/25 09:36 Ciprofloxacin Hcl 500 Mg Tab PO 500 mg BID MARGOTH Administration Protocol Diltiazem HCl 180 mg 02/15/25 09:00 02/15/25 09:36 Diltiazem Cd 180 Mg Cap.Er.24h PO 180 mg DAILY MARGOTH Administration Escitalopram Oxalate 20 mg 02/15/25 09:00 02/15/25 09:36 Escitalopram 20 Mg Tab PO 20 mg DAILY MARGOTH Administration Famotidine 20 mg 02/14/25 21:00 02/15/25 09:40 Famotidine 20 Mg Tab PO 20 mg BID MARGOTH Administration Insulin Glargine 10 unit 02/14/25 22:15 02/14/25 22:47 Insulin Glargine (Lantus) 100 Unit/Ml Syr SQ 10 unit HS MARGOTH Administration Insulin Human Lispro 0 unit 02/15/25 07:30 02/15/25 06:17 Insulin Lispro (Humalog) 100 Unit/Ml 10 Ml Vl SQ 2 unit ACHS MARGOTH Administration Protocol Lacosamide 100 mg 02/14/25 22:15 02/14/25 22:41 Lacosamide 50 Mg Tablet PO 100 mg HS MARGOTH Administration Levothyroxine Sodium 12.5 mcg 02/15/25 07:30 02/15/25 06:17 Levothyroxine 25 Mcg Tab PO 12.5 mcg AC-BRKFST MARGOTH Administration Loratadine 10 mg 02/14/25 22:00 02/14/25 22:41 Loratadine 10 Mg Tab PO 10 mg HS MARGOTH Administration Losartan Potassium 25 mg 02/15/25 09:00 02/15/25 09:36 Losartan 25 Mg Tab PO 25 mg DAILY MARGOTH Administration Naloxone HCl 0.2 mg 02/14/25 19:47 Naloxone 0.4 Mg/Ml 1 Ml Vial IV Q2M PRN Opioid Reversal Pantoprazole Sodium 40 mg 02/15/25 07:30 02/15/25 06:17 Pantoprazole 40 Mg Tablet PO 40 mg AC-BRKFST MARGOTH Administration Intake and Output 02/14/25 02/15/25 02/15/25 22:59 06:59 14:59 Intake Total 118 Output Total 1200 400 Balance -1200 -400 118 Intake: Oral 118 Output: Urine 1200 400 Other: Voiding Method Indwelling Catheter Indwelling Catheter Weight 106.594 kg 106.594 kg 02/14/25 16:58 02/14/25 16:58
--- NOTE | 2025-02-15 13:59 | P.HPIM ---
History of Present Illness 84-year-old female with known history of paroxysmal atrial fibrillation, dementia which is pretty advanced baseline alert but oriented x 1-2 was brought in because she had a syncopal episode while trying to have a bowel movement and patient was constipated. Patient was also complaining of abdominal pain patient is unable to provide any history to me patient is not a reliable historian her answers to any questions are not consistent. patient did have bowel movements. Patient appears to have had a vasovagal event while trying to move her bowel patient does not have any fever chills does not have any leukocytosis patient does have a Dow catheter which is chronic patient was started on Cipro for possibility of UTI but I do not have any urinalysis available urinalysis was ordered Dow catheter will be replaced. EKG did not show any significant abnormality chest x-ray within normal limits. Patient presently denied any abdominal pain. REVIEW OF SYSTEMS: All other systems are negative except those mentioned in the HPI PHYSICAL EXAMINATION: GENERAL: The patient is alert and oriented x1, not in any acute distress. Well developed, well nourished. HEENT: Pupils are round and equally reacting to light. EOMI. No scleral icterus. No conjunctival pallor. Normocephalic, atraumatic. No pharyngeal erythema. No thyromegaly. CARDIOVASCULAR: S1 and S2 present. No murmurs, rubs, or gallops. PULMONARY: Chest is clear to auscultation, no wheezing or crackles. ABDOMEN: Soft, nontender, nondistended, normoactive bowel sounds. No palpable organomegaly. MUSCULOSKELETAL: No joint swelling or deformity. EXTREMITIES: No cyanosis, clubbing, or pedal edema. NEUROLOGICAL: Gross neurological examination did not reveal any focal deficits. SKIN: No rashes. Assessment and plan -Syncope: Vasovagal event. Patient did have bowel movements abdominal pain resolved at this time - Abdominal pain secondary to constipation which improved at this time - Paroxysmal atrial fibrillation currently sinus rhythm patient is on anticoagulation which was resumed and continued - Chronic Dow catheter I do not have any evidence of urinary tract infection at this time Cipro can cause confusion this will be discontinued will obtain a urinalysis replace a Dow catheter if urinalysis will abnormal will consider treating at that time patient does not have any evidence of sepsis and does not have any leukocytosis or fever chills - History of subdural hematoma in the past - Type 2 diabetes mellitus - Hypothyroidism - Advanced dementia probably vascular dementia Generalized deconditioning PT and OT evaluation For above-mentioned chronic medical problems patient will be started on appropriate home medications DVT prophylaxis: Patient is on Eliquis which was resumed Past Medical History Past Medical History: Atrial Fibrillation, CVA/TIA, Diabetes Mellitus, Hyp ertension, Memory Impairment Additional Past Medical History / Comment(s): UTI, falls History of Any Multi-Drug Resistant Organisms: VRE Date of last positivie culture/infection: 11/01/23 MDRO Source:: Urine Past Surgical History: Appendectomy Additional Past Surgical History / Comment(s): patient poor historian Past Anesthesia/Blood Transfusion Reactions: No Reported Reaction Past Psychological History: No Psychological Hx Reported Smoking Status: Unknown if ever smoked Past Alcohol Use History: None Reported Past Drug Use History: None Reported - Past Family History Father History Unknown: Yes Medications and Allergies Home Medications Medication Instructions Recorded Confirmed Type Apixaban [Eliquis] 5 mg PO BID 08/25/23 02/15/25 History Escitalopram [Lexapro] 20 mg PO DAILY 08/25/23 02/15/25 History Ferrous Sulfate [Iron (65 MG 325 mg PO HS 08/25/23 02/15/25 History Elemental)] Levothyroxine Sodium [Synthroid] 12.5 mcg PO AC-BRKFST 08/25/23 02/15/25 History Loperamide HCl [Imodium A-D] 2 mg PO QID PRN 08/25/23 02/15/25 History Montelukast [Singulair] 10 mg PO HS 08/25/23 02/15/25 History Budesonide-Formot 160-4.5 Mcg 2 puff INHALATION RT-BID #1 each 10/28/23 02/15/25 Rx [Symbicort 160-4.5 Mcg Inhaler] Thiamine [Vitamin B-1] 100 mg PO DAILY tab 12/09/23 02/15/25 Rx Spiriva Respimat 1.25mcg/Actuation 1 puff INHALATION RT-DAILY 05/10/24 02/15/25 History Mist Losartan [Cozaar] 25 mg PO DAILY 30 Days #30 tab 05/14/24 02/15/25 Rx Pantoprazole [Protonix] 40 mg PO AC-BRKFST 30 Days #30 tab 05/14/24 02/15/25 Rx Lacosamide [Vimpat] 100 mg PO HS #4 tab 06/21/24 02/15/25 Rx Insulin Aspart [NovoLOG Flexpen] See Protocol SQ AC-TID 10/08/24 02/15/25 History Ipratropium-Albuterol Nebulize 3 ml INHALATION RT-QID PRN 10/08/24 02/15/25 History [Duoneb 0.5 mg-3 mg/3 ml Soln] Rosuvastatin [Crestor] 20 mg PO DAILY 10/08/24 02/15/25 History dilTIAZem HCL [Tiazac] 180 mg PO DAILY 10/08/24 02/15/25 History Ciprofloxacin HCl [Cipro] 500 mg PO BID 7 Days #14 tab 02/10/25 02/15/25 Rx Colchicine 0.6 - 1.2 mg PO DIRECTED PRN 02/15/25 02/15/25 History Insulin Glargine (Lantus) [Lantus 10 unit SQ HS 02/15/25 02/15/25 History Vial] Allergies Allergy/AdvReac Type Severity Reaction Status Date / Time Penicillins Allergy Rash/Hives Verified 02/15/25 10:30 cefepime AdvReac Confusion Verified 02/15/25 10:30 Sulfa (Sulfonamide AdvReac Unknown Verified 02/15/25 10:30 Antibiotics) Physical Exam Vitals: Vital Signs Temp Pulse Pulse Resp BP BP BP 02/15/25 09:29 85 02/15/25 09:18 87 02/15/25 07:10 97.9 F 89 19 147/85 02/15/25 01:39 98.0 F 83 18 148/72 02/14/25 23:20 97.9 F 84 20 135/65 02/14/25 22:21 98.2 F 84 18 133/65 02/14/25 19:55 97.9 F 87 18 158/80 02/14/25 16:40 98.2 F 78 18 140/71 Pulse Ox 02/15/25 09:29 02/15/25 09:18 02/15/25 07:10 94 L 02/15/25 01:39 96 02/14/25 23:20 97 02/14/25 22:21 97 02/14/25 19:55 97 02/14/25 16:40 96 Intake and Output 02/14/25 02/15/25 02/15/25 22:59 06:59 14:59 Intake Total 118 Output Total 1200 400 Balance -1200 -400 118 Intake: Oral 118 Output: Urine 1200 400 Other: Voiding Method Indwelling Catheter Indwelling Catheter Weight 106.594 kg 106.594 kg Results CBC & Chem 7: 02/14/25 16:58 02/14/25 16:58 Labs: Abnormal Lab Results - Last 24 Hours (Table) 02/14/25 02/14/25 02/14/25 Range/Units 16:58 16:58 17:00 APTT 20.6 L (22.0-30.0) sec Sodium 136 L (137-145) mmol/L Glucose 280 H (74-99) mg/dL POC Glucose (mg/dL) 267 H (70-110) mg/dL Total Protein 6.1 L (6.3-8.2) g/dL 02/14/25 02/15/25 02/15/25 Range/Units 22:45 05:56 11:57 APTT (22.0-30.0) sec Sodium (137-145) mmol/L Glucose (74-99) mg/dL POC Glucose (mg/dL) 264 H 156 H 341 H (70-110) mg/dL Total Protein (6.3-8.2) g/dL
[2025-02-15 16:54] LABS: Glucose,Whole Blood 232 mg/dL (70-110)
--- NOTE | 2025-02-15 17:18 | CA ---
Transthoracic Echo Report Name: Flores Chadwick Age: 84 Gender: F : 1940 Exam Date: 02/15/2025 14:37 Exam Location: [place] [facility] Ht (in): 63 Wt (lb): 235 Ordering Physician: Tanisha Martins Attending/Referring Phys: [id number], Lakshmi Property Utilization Officer Genoveva Scott RDCS Procedure CPT: Indications: LVF Cardiac Hx: Technical Quality: Technically difficult study Contrast 1: Definity Total Dose (mL): 4 Contrast 2: Total Dose (mL): MEASUREMENTS (Male / Female) Normal Values 2D ECHO LV Diastolic Diameter PLAX 4.7 cm 4.2 - 5.9 / 3.9 - 5.3 cm LV Systolic Diameter PLAX 2.9 cm IVS Diastolic Thickness 1.2 cm 0.6 - 1.0 / 0.6 - 0.9 cm LVPW Diastolic Thickness 0.9 cm 0.6 - 1.0 / 0.6 - 0.9 cm LV Relative Wall Thickness 0.5 LVOT Diameter 1.9 cm LV Diastolic Volume MOD BP 99.6 cm??? 67 - 155 / 56 - 104 cm??? LV Systolic Volume MOD BP 32.0 cm??? 22 - 58 / 19 - 49 cm??? LV Ejection Fraction MOD BP 67.8 % >= 55 % LV Cardiac Index MOD BP 2811.7 cm???/min???m??? LV Diastolic Volume MOD 4C 98.3 cm??? LV Systolic Volume MOD 4C 25.2 cm??? LV Ejection Fraction MOD 4C 74.4 % LV Cardiac Index MOD 4C 3042.2 cm???/min???m??? LV Diastolic Length 4C 8.3 cm LV Systolic Length 4C 5.5 cm LV Diastolic Volume MOD 2C 98.9 cm??? LV Systolic Volume MOD 2C 32.8 cm??? LV Ejection Fraction MOD 2C 66.8 % LV Cardiac Index MOD 2C 2750.2 cm???/min???m??? LV Diastolic Length 2C 8.5 cm LV Systolic Length 2C 6.9 cm LA Volume 59.1 cm??? 18 - 58 / 22 - 52 cm??? LA Volume Index 26.4 cm???/m??? 16 - 28 cm???/m??? DOPPLER AV Peak Velocity 181.5 cm/s AV Peak Gradient 13.2 mmHg AV Mean Velocity 124.9 cm/s AV Mean Gradient 7.1 mmHg AV Velocity Time Integral 30.4 cm LVOT Peak Velocity 121.2 cm/s LVOT Peak Gradient 5.9 mmHg LVOT Velocity Time Integral 21.6 cm LVOT Stroke Volume 64.4 cm??? LVOT Stroke Volume Index 31.1 ml/m??? LVOT Cardiac Index 2679.3 cm???/min???m??? AV Area Cont Eq vti 2.1 cm??? AV Area Cont Eq pk 2.0 cm??? MV Area PHT 6.0 cm??? Mitral E Point Velocity 78.8 cm/s Mitral A Point Velocity 123.6 cm/s Mitral E to A Ratio 0.6 MV Deceleration Time 127.2 ms TR Peak Velocity 273.5 cm/s TR Peak Gradient 29.9 mmHg Right Atrial Pressure 5.0 mmHg Pulmonary Artery Systolic Pressu 34.9 mmHg Right Ventricular Systolic Press 34.9 mmHg FINDINGS Left Ventricle Left ventricular ejection fraction is estimated at 65 %. Mildly increased septal wall thickness. Left ventricular cavity size normal. No obvious regional wall motion abnormalities. Hyperdynamic left ventricular systolic function. Mid caavitary gradient 57mmHg at rest. Right Ventricle Right ventricle not well visualized. Normal right ventricular global systolic function. Mild pulmonary hypertension. Right Atrium Right atrium not well visualized. Left Atrium Mildly increased left atrial volume. Mildly increased left atrial area. Mitral Valve Structurally normal mitral valve. No mitral stenosis, regurgitation or prolapse. Aortic Valve Trileaflet aortic valve. No aortic valve stenosis or regurgitation. Tricuspid Valve Structurally normal tricuspid valve. No tricuspid stenosis. [id number] tricuspid regurgitation. Pulmonic Valve Pulmonic valve not well visualized. Pericardium No pericardial effusion. Aorta Aortic root and proximal ascending aorta not well visualized. CONCLUSIONS Left ventricular ejection fraction 65% Mild increased left ventricular wall thickness RVSP 35 Mildly dilated left atrium Mild to moderate tricuspid regurgitation No pericardial effusion Previewed by: Dr. Vitaly Garcia DO (Electronically Signed) Final Date: 15 Feb 2025 17:18
[2025-02-15 18:42] LABS: Appearance,Urine Turbid (Clear); Bacteria,Urine Occasional /hpf; Bilirubin,Urine Negative (Negative); Blood,Urine Large (Negative); Color,Urine Yellow; Glucose,Urine (UA) Trace (Negative); Ketones,Urine Negative (Negative); Leukocyte Esterase,Urine Large (Negative); Mucus,Urine Rare /hpf; Nitrite,Urine Negative (Negative); Protein,Urine 2+ (Negative); RBC,Urine >182 /hpf (0-5); Specific Gravity,Urine 1.023 (1.001-1.035); Squamous Epithelial Cell,Urine 85 /hpf (0-4); Urobilinogen,Urine <2.0 mg/dL (<2.0); WBC,Urine >182 /hpf (0-5)
[2025-02-15 19:47] LABS: Glucose,Whole Blood 220 mg/dL (70-110)
[2025-02-15] MEDS: ATORVASTATIN 40 MG TAB PO SCH (20:46)
[2025-02-16 06:01] LABS: Glucose,Whole Blood 181 mg/dL (70-110)
--- NOTE | 2025-02-16 08:48 | P.PN ---
Subjective Progress Note Date: 02/16/25 Reason for Consult (text): Syncope History of present illness: This is an 84-year-old female with past medical history of paroxysmal atrial fibrillation, hypertension, dyslipidemia, history of subdural hemorrhage, diabetes type 2, hypothyroidism, dementia. We have been asked to evaluate patient for syncope. Patient did have a hospitalization in April 2024 and was seen by cardiology at that time for syncopal episode likely related to reflect syncope with orthostatic hypotension versus vasovagal syncope. Patient apparently resides with her daughter. She has had some memory issues but she apparently was up to the bathroom for bowel movement and was sitting on the toilet when apparently she passed out. She had passed a large amount of stool t hat was nonbloody. Patient denies feeling lightheaded. She denies fever or chills, no cough. She states she feels okay at this time. Patient has been started on antibiotics for urinary tract infection. Regarding atrial fibrillation, patient's skin sometimes feels when it is racing but is not no ticing that now. Blood pressure 147/85, heart rate 89, pulse ox 94% on room air. -EKG: Sinus rhythm 82 bpm, #2 sinus rhythm with PACs 88 bpm. -Chest x-ray: No acute process. -Laboratory studies: Troponin negative x 3. CBC within normal limits. Creatinine 0.69. -Home cardiac medications: Eliquis 5 mg twice daily, losartan 25 mg daily, rosuvastatin 20 mg daily. -Echocardiogram performed 05/12/2024 revealed EF of 55%. Poorly visualized intracardiac valves. 02/16 Patient seen and examined. Patient has 30-day event monitor in place. She was cleared yesterday for discharge but there is discharge planning in place for possible placement. Patient denies any new concerns. No events overnight. Blood pressure 125/80, heart rate 84, pulse ox 94% on room air. Telemetry showed no arrhythmias and she remains in sinus rhythm. Echocardiogram reveals EF 65%, RVSP 35, mild to moderate tricuspid regurgitation. Physical examination: Gen: This is 84-year-old female in no acute distress VS: reviewed HEENT: Head is atraumatic, normocephalic. Pupils equal, round. Sclerae is anicteric. NECK: Supple. No JVD. LUNGS: Clear to auscultation. No wheezes or rhonchi. No intercostal retractions. HEART: Regular rate and rhythm. Systolic murmur. ABDOMEN: Soft No tenderness. EXTREMITIES: No pedal edema. No calf tenderness. NEUROLOGICAL: Patient is awake, alert. Assessment: Syncopal episode possibly related to atrial fibrillation, possibly vasovagal Paroxysmal atrial fibrillation currently in sinus rhythm Hypertension Dyslipidemia History of subdural hemorrhage Diabetes mellitus type 2 Hypothyroidism Dementia Plan: Continue patient's home cardiac medications 30-day event monitor in place Patient is cleared for discharge and may follow-up in the office in 5-6 weeks. Nurse practitioner note has been reviewed, I agree with documented findings and plan of care. Patient was seen and examined. Objective - Vital Signs Vital signs: Vital Signs Temp 98.2 F 02/16/25 07:00 Pulse 84 02/16/25 07:00 Resp 16 02/16/25 07:00 BP 125/80 02/16/25 07:00 Pulse Ox 94 L 02/16/25 07:00 FiO2 Intake & Output 02/15/25 02/16/25 02/16/25 18:59 06:59 18:59 Intake Total 236 Output Total 500 1050 Balance -264 -1050 Intake: Oral 236 Output: Urine 500 1050 Other: Voiding Method Indwelling Catheter Indwelling Catheter Indwelling Catheter - Labs CBC & Chem 7: 02/14/25 16:58 02/14/25 16:58 Labs: Abnormal Lab Results - Last 24 Hours (Table) 02/15/25 02/15/25 02/15/25 Range/Units 11:57 16:52 18:20 POC Glucose (mg/dL) 341 H 232 H (70-110) mg/dL Urine Appearance Turbid H (Clear) Urine Protein 2+ H (Negative) Urine Glucose (UA) Trace H (Negative) Urine Blood Large H (Negative) Ur Leukocyte Esterase Large H (Negative) Urine RBC >182 H (0-5) /hpf Urine WBC >182 H (0-5) /hpf Urine WBC Clumps Many H (None) /hpf Ur Squamous Epith Cells 85 H (0-4) /hpf Urine Bacteria Occasional H (None) /hpf Urine Mucus Rare H (None) /hpf 02/15/25 02/16/25 Range/Units 19:46 06:00 POC Glucose (mg/dL) 220 H 181 H (70-110) mg/dL Urine Appearance (Clear) Urine Protein (Negative) Urine Glucose (UA) (Negative) Urine Blood (Negative) Ur Leukocyte Esterase (Negative) Urine RBC (0-5) /hpf Urine WBC (0-5) /hpf Urine WBC Clumps (None) /hpf Ur Squamous Epith Cells (0-4) /hpf Urine Bacteria (None) /hpf Urine Mucus (None) /hpf
[2025-02-16] MEDS: cefTRIAXone 2 GM in DEXTROSE 5% IN WATER 50 ML IVPB SCH (12:41)
--- NOTE | 2025-02-16 13:09 | P.PN ---
Subjective 84-year-old female with known history of paroxysmal atrial fibrillation, dementia which is pretty advanced baseline alert but oriented x 1-2 was brought in because she had a syncopal episode while trying to have a bowel movement and patient was constipated. Patient was also complaining of abdominal pain patient is unable to provide any history to me patient is not a reliable historian her answers to any questions are not consistent. patient did have bowel movements. Patient appears to have had a vasovagal event while trying to move her bowel patient does not have any fever chills does not have any leukocytosis patient does have a Dow catheter which is chronic patient was started on Cipro for possibility of UTI but I do not have any urinalysis available urinalysis was ordered Dow catheter will be replaced. EKG did not show any significant abnormality chest x-ray within normal limits. Patient presently denied any abdo wayne pain. 02/16/2025 Patient's Dow catheter was changed patient still confused Xanax was disconti nued patient urine is significantly abnormal after changing the Dow catheter. Patient will was started on Rocephin for that reason for urinary tract infection related to Dow catheter. REVIEW OF SYSTEMS: All other systems are negative except those mentioned in the HPI PHYSICAL EXAMINATION: GENERAL: The patient is alert and oriented x1, not in any acute distress. Well developed, well nourished. HEENT: Pupils are round and equally reacting to light. EOMI. No scleral icterus. No conjunctival pallor. Normocephalic, atraumatic. No pharyngeal erythema. No thyromegaly. CARDIOVASCULAR: S1 and S2 present. No murmurs, rubs, or gallops. PULMONARY: Chest is clear to auscultation, no wheezing or crackles. ABDOMEN: Soft, nontender, nondistended, normoactive bowel sounds. No palpable organomegaly. MUSCULOSKELETAL: No joint swelling or deformity. EXTREMITIES: No cyanosis, clubbing, or pedal edema. NEUROLOGICAL: Gross neurological examination did not reveal any focal deficits. SKIN: No rashes. Assessment and plan -Syncope: Vasovagal event. Patient did have bowel movements abdominal pain resolved at this time - Abdominal pain secondary to constipation which improved at this time - Paroxysmal atrial fibrillation currently sinus rhythm patient is on anticoagulation which was resumed and continued -UTI secondary to Dow catheter: Patient is on Rocephin awaiting urine cultures Altered mental status secondary to advanced dementia with possible superimposed delirium from metabolic encephalopathy. - History of subdural hematoma in the past - Type 2 diabetes mellitus - Hypothyroidism - Advanced dementia probably vascular dementia Generalized deconditioning PT and OT evaluation For above-mentioned chronic medical problems patient was started on appropriate home medications DVT prophylaxis: Patient is on Eliquis which was resumed Objective - Vital Signs Vital signs: Vital Signs Temp 98.2 F 02/16/25 07:00 Pulse 83 02/16/25 09:20 Resp 16 02/16/25 07:00 BP 125/80 02/16/25 07:00 Pulse Ox 94 L 02/16/25 07:00 FiO2 Intake & Output 02/15/25 02/16/25 02/16/25 18:59 06:59 18:59 Intake Total 236 118 Output Total 500 1050 Balance -264 -1050 118 Intake: Oral 236 118 Output: Urine 500 1050 Other: Voiding Method Indwelling Catheter Indwelling Catheter Indwelling Catheter - Labs CBC & Chem 7: 02/14/25 16:58 02/14/25 16:58 Labs: Abnormal Lab Results - Last 24 Hours (Table) 02/15/25 02/15/25 02/15/25 Range/Units 16:52 18:20 19:46 POC Glucose (mg/dL) 232 H 220 H (70-110) mg/dL Urine Appearance Turbid H (Clear) Urine Protein 2+ H (Negative) Urine Glucose (UA) Trace H (Negative) Urine Blood Large H (Negative) Ur Leukocyte Esterase Large H (Negative) Urine RBC >182 H (0-5) /hpf Urine WBC >182 H (0-5) /hpf Urine WBC Clumps Many H (None) /hpf Ur Squamous Epith Cells 85 H (0-4) /hpf Urine Bacteria Occasional H (None) /hpf Urine Mucus Rare H (None) /hpf 02/16/25 Range/Units 06:00 POC Glucose (mg/dL) 181 H (70-110) mg/dL Urine Appearance (Clear) Urine Protein (Negative) Urine Glucose (UA) (Negative) Urine Blood (Negative) Ur Leukocyte Esterase (Negative) Urine RBC (0-5) /hpf Urine WBC (0-5) /hpf Urine WBC Clumps (None) /hpf Ur Squamous Epith Cells (0-4) /hpf Urine Bacteria (None) /hpf Urine Mucus (None) /hpf
[2025-02-16 17:20] LABS: Glucose,Whole Blood 201 mg/dL (70-110)
[2025-02-16 20:07] LABS: Glucose,Whole Blood 191 mg/dL (70-110)
[2025-02-17 06:04] LABS: Glucose,Whole Blood 226 mg/dL (70-110)
--- NOTE | 2025-02-17 11:23 | P.PN ---
Subjective 84-year-old female with known history of paroxysmal atrial fibrillation, dementia which is pretty advanced baseline alert but oriented x 1-2 was brought in because she had a syncopal episode while trying to have a bowel movement and patient was constipated. Patient was also complaining of abdominal pain patient is unable to provide any history to me patient is not a reliable historian her answers to any questions are not consistent. patient did have bowel movements. Patient appears to have had a vasovagal event while trying to move her bowel patient does not have any fever chills does not have any leukocytosis patient does have a Dow catheter which is chronic patient was started on Cipro for possibility of UTI but I do not have any urinalysis available urinalysis was ordered Dow catheter will be replaced. EKG did not show any significant abnormality chest x-ray within normal limits. Patient presently denied any abdo wayne pain. 02/16/2025 Patient's Dow catheter was changed patient still confused Xanax was disconti nued patient urine is significantly abnormal after changing the Dow catheter. Patient will was started on Rocephin for that reason for urinary tract infection related to Dow catheter. 02/17/2025 Patient mental status is fairly stable no improvement or worsening. Patient urine cultures are negative. Patient already received 3 days of antibiotic antibiotic will be discontinued possibility of placement at a subacute rehab tomorrow. REVIEW OF SYSTEMS: All other systems are negative except those mentioned in the HPI PHYSICAL EXAMINATION: GENERAL: The patient is alert and oriented x1, not in any acute distress. Well developed, well nourished. HEENT: Pupils are round and equally reacting to light. EOMI. No scleral icterus. No conjunctival pallor. Normocephalic, atraumatic. No pharyngeal erythema. No thyromegaly. CARDIOVASCULAR: S1 and S2 present. No murmurs, rubs, or gallops. PULMONARY: Chest is clear to auscultation, no wheezing or crackles. ABDOMEN: Soft, nontender, nondistended, normoactive bowel sounds. No palpable organomegaly. MUSCULOSKELETAL: No joint swelling or deformity. EXTREMITIES: No cyanosis, clubbing, or pedal edema. NEUROLOGICAL: Gross neurological examination did not reveal any focal deficits. SKIN: No rashes. Assessment and plan -Syncope: Vasovagal event. Patient did have bowel movements abdominal pain resolved at this time - Abdominal pain secondary to constipation which improved at this time - Paroxysmal atrial fibrillation currently sinus rhythm patient is on anticoagulation which was resumed and continued -UTI secondary to Dow catheter: Antibiotics were discontinued as urine cultures are negative and Dow catheter was replaced and patient received 3 days of antibiotic Altered mental status secondary to advanced dementia with possible superimposed delirium from metabolic encephalopathy. - History of subdural hematoma in the past - Type 2 diabetes mellitus - Hypothyroidism - Advanced dementia probably vascular dementia Generalized deconditioning PT and OT evaluation For above-mentioned chronic medical problems patient was started on appropriate home medications DVT prophylaxis: Patient is on Eliquis which was resumed Objective - Vital Signs Vital signs: Vital Signs Temp 97.7 F 02/17/25 07:00 Pulse 90 02/17/25 07:00 Resp 16 02/17/25 07:00 BP 150/86 02/17/25 07:00 Pulse Ox 95 02/17/25 07:00 FiO2 Intake & Output 02/16/25 02/17/25 02/17/25 18:59 06:59 18:59 Intake Total 236 Output Total 2200 1625 Balance -1963 -1625 Intake: Oral 236 Output: Urine 2200 1625 Other: Voiding Method Indwelling Catheter Indwelling Catheter Indwelling Catheter # Bowel Movements 0 - Labs CBC & Chem 7: 02/14/25 16:58 02/14/25 16:58 Labs: Abnormal Lab Results - Last 24 Hours (Table) 02/16/25 02/16/25 02/17/25 Range/Units 17:18 20:05 06:02 POC Glucose (mg/dL) 201 H 191 H 226 H (70-110) mg/dL Microbiology - Last 24 Hours (Table) 02/15/25 18:20 Urine Culture - Final Urine,Voided
--- NOTE | 2025-02-17 11:33 | P.PN ---
Subjective Progress Note Date: 02/17/25 Reason for Consult (text): Syncope History of present illness: This is an 84-year-old female with past medical history of paroxysmal atrial fibrillation, hypertension, dyslipidemia, history of subdural hemorrhage, diabetes type 2, hypothyroidism, dementia. We have been asked to evaluate patient for syncope. Patient did have a hospitalization in April 2024 and was seen by cardiology at that time for syncopal episode likely related to reflect syncope with orthostatic hypotension versus vasovagal syncope. Patient apparently resides with her daughter. She has had some memory issues but she apparently was up to the bathroom for bowel movement and was sitting on the toilet when apparently she passed out. She had passed a large amount of stool t hat was nonbloody. Patient denies feeling lightheaded. She denies fever or chills, no cough. She states she feels okay at this time. Patient has been started on antibiotics for urinary tract infection. Regarding atrial fibrillation, patient's skin sometimes feels when it is racing but is not no ticing that now. Blood pressure 147/85, heart rate 89, pulse ox 94% on room air. -EKG: Sinus rhythm 82 bpm, #2 sinus rhythm with PACs 88 bpm. -Chest x-ray: No acute process. -Laboratory studies: Troponin negative x 3. CBC within normal limits. Creatinine 0.69. -Home cardiac medications: Eliquis 5 mg twice daily, losartan 25 mg daily, rosuvastatin 20 mg daily. -Echocardiogram performed 05/12/2024 revealed EF of 55%. Poorly visualized intracardiac valves. 02/16 Patient seen and examined. Patient has 30-day event monitor in place. She was cleared yesterday for discharge but there is discharge planning in place for possible placement. Patient denies any new concerns. No events overnight. Blood pressure 125/80, heart rate 84, pulse ox 94% on room air. Telemetry showed no arrhythmias and she remains in sinus rhythm. Echocardiogram reveals EF 65%, RVSP 35, mild to moderate tricuspid regurgitation. 02/17 No new concerns overnight. Patient is on telemetry and event monitor has been placed. There is discharge planning in progress. Physical examination: Gen: This is 84-year-old female in no acute distress VS: reviewed HEENT: Head is atraumatic, normocephalic. Pupils equal, round. Sclerae is anicteric. NECK: Supple. No JVD. LUNGS: Clear to auscultation. No wheezes or rhonchi. No intercostal retractions. HEART: Regular rate and rhythm. Systolic murmur. ABDOMEN: Soft No tenderness. EXTREMITIES: No pedal edema. No calf tenderness. Assessment: Syncopal episode possibly related to atrial fibrillation, possibly vasovagal Paroxysmal atrial fibrillation currently in sinus rhythm Hypertension Dyslipidemia History of subdural hemorrhage Diabetes mellitus type 2 Hypothyroidism Dementia Plan: Continue patient's home cardiac medications 30-day event monitor in place Patient is cleared for discharge and may follow-up in the office in 5-6 weeks. Cardiology will sign off this case and follow on an as-needed basis. Please reconsult for any new concerns. Nurse practitioner note has been reviewed, I agree with documented findings and plan of care. Patient was seen and examined. Objective - Vital Signs Vital signs: Vital Signs Temp 97.7 F 02/17/25 07:00 Pulse 90 02/17/25 07:00 Resp 16 02/17/25 07:00 BP 150/86 02/17/25 07:00 Pulse Ox 95 02/17/25 07:00 FiO2 Intake & Output 02/16/25 02/17/25 02/17/25 18:59 06:59 18:59 Intake Total 236 Output Total 2200 1625 Balance -1963 -1625 Intake: Oral 236 Output: Urine 2200 1625 Other: Voiding Method Indwelling Catheter Indwelling Catheter Indwelling Catheter # Bowel Movements 0 - Labs CBC & Chem 7: 02/14/25 16:58 02/14/25 16:58 Labs: Abnormal Lab Results - Last 24 Hours (Table) 02/16/25 02/16/25 02/17/25 Range/Units 17:18 20:05 06:02 POC Glucose (mg/dL) 201 H 191 H 226 H (70-110) mg/dL Microbiology - Last 24 Hours (Table) 02/15/25 18:20 Urine Culture - Final Urine,Voided
[2025-02-17 12:10] LABS: Glucose,Whole Blood 256 mg/dL (70-110)
[2025-02-17 17:15] LABS: Glucose,Whole Blood 167 mg/dL (70-110)
[2025-02-17 19:24] LABS: Glucose,Whole Blood 173 mg/dL (70-110)
[2025-02-18 06:04] LABS: Glucose,Whole Blood 192 mg/dL (70-110)
[2025-02-18 09:34] VITALS: RESP 18
[2025-02-18 12:01] LABS: Glucose,Whole Blood 236 mg/dL (70-110)
--- NOTE | 2025-02-18 15:51 | P.DS ---
Providers Date of admission: 02/14/25 19:50 Attending physician: Ryan Moser Consults: 02/14/25 19:47 Consult Physician Urgent Consulting Provider: [facility] Consult Reason/Comments: syncope Do you want consulting provider notified?: Yes, Notify in am Primary care physician: Jeffrey Victoria DO Hospital Course: Discharge Diagnosis: #Syncope likely vasovagal event #Abdominal pain secondary to constipation, improved #Paroxysmal atrial fibrillation currently in sinus rhythm #UTI secondary to Ortiz catheter #Altered mental status, at baseline #History of subdural hematoma in the past #Type 2 diabetes mellitus #Hypothyroidism #Advanced dementia probably vascular dementia Hospital Course: 84-year-old female with a history of paroxysmal A-fib, dementia, type II diabetes mellitus, hypothyroidism came to the ER with a syncopal episode while trying to have bowel movement. Patient also had altered mental status and was unable to provide significant history. Patient has a Ortiz catheter which is chronic. Her lab work shows WBCs 7.65, hemoglobin 12.3, platelet count 233, sodium 136, potassium 4.2, chloride 103, bicarb 23, BUN 12, creatinine 0.69, glucose 280, calcium 8.4, magnesium 1.8, AST 16, ALT 10, troponin I high less than 0.012, lipase 39, urine analysis showed turbid appearing urine with high burden of squamous epithelial cells with positive leukocyte esterase. Negative for urine nitrate. Based on urinalysis and presence of Ortiz catheter chronically in the context of altered mental status patient was started on ciprofloxacin. Patient received 3 days of antibiotic and they were discontinued as urine culture is negative. Ortiz catheter was also replaced. Chest x-ray showed no evidence of acute pulmonary disease. Her EKG shows normal sinus rhyth m with PVCs with ventricular rate of 82 bpm, OR interval 172, QRS duration of 90 ms, QTc 436. Old Q waves noted in lead III. Cardiology was consulted for concerns regarding syncope to rule out cardiac cause. Echocardiogram showed left ventricle ejection fraction of 65% with mild increased left ventricular wall thickness. RVSP 35, mildly dilated left atrium and mild to moderate tricuspid regurgitation. Cardiology cleared patient for discharge and patient will be discharged on a 30-day event monitor. Patient otherwise continues to improve in her symptoms. She has returned to her baseline mentation. Patient is medically optimized for discharge to home with home services. Discharge disposition: Home with VNA Vital signs reviewed. Gen: in no apparent distress, resting comfortably in bed, obese Eyes: PERRLA, EOMI, no scleral injection or icterus HENT: normocephalic, atraumatic, good hearing acuity, moist mucous membranes Neck: full range of motion Resp: CTAB, no rales, rhonchi, or wheezes CVS: normal S1 and S2, no murmurs, rubs or gallops, no edema GI: soft, NTTP, ND, no hepatosplenomegaly : no suprapubic tenderness, no CVAT, ortiz catheter is present MSK: no clubbing, no cyanosis, no noted contractures of extremities Skin: no noted rashes, petechiae; temperature of skin is appropriate Neuro: moving all extremities without signs of weakness, CN II-XII intact Psych: cooperative, euthymic mood, insight and judgment intact, aao x 2 Dictation was produced using [employer] dictation software. Please excuse any grammatical, word or spelling errors. Patient Condition at Discharge: Stable Plan - Discharge Summary Discharge Rx Participant: No New Discharge Prescriptions: Continue Ferrous Sulfate [Iron (65 MG Elemental)] 325 mg PO HS Escitalopram [Lexapro] 20 mg PO DAILY Loperamide HCl [Imodium A-D] 2 mg PO QID PRN PRN Reason: Diarrhea Spiriva Respimat 1.25mcg/Actuation Mist 1 puff INHALATION RT-DAILY Losartan [Cozaar] 25 mg PO DAILY 30 Days #30 tab Pantoprazole [Protonix] 40 mg PO AC-BRKFST 30 Days #30 tab Ipratropium-Albuterol Nebulize [Duoneb 0.5 mg-3 mg/3 ml Soln] 3 ml INHALATION RT-QID PRN PRN Reason: Shortness Of Breath Colchicine 0.6 - 1.2 mg PO DIRECTED PRN PRN Reason: gout attack Insulin Glargine (Lantus) [Lantus Vial] 10 unit SQ HS Levothyroxine Sodium [Synthroid] 12.5 mcg PO AC-BRKFST Montelukast [Singulair] 10 mg PO HS Apixaban [Eliquis] 5 mg PO BID Budesonide-Formot 160-4.5 Mcg [Symbicort 160-4.5 Mcg Inhaler] 2 puff INHALATION RT-BID #1 each Thiamine [Vitamin B-1] 100 mg PO DAILY tab Lacosamide [Vimpat] 100 mg PO HS #4 tab dilTIAZem HCL [Tiazac] 180 mg PO DAILY Insulin Aspart [NovoLOG Flexpen] See Protocol SQ AC-TID Rosuvastatin [Crestor] 20 mg PO DAILY Discontinued Ciprofloxacin HCl [Cipro] 500 mg PO BID 7 Days #14 tab Discharge Medication List Apixaban [Eliquis] 5 mg PO BID 08/25/23 [History] Escitalopram [Lexapro] 20 mg PO DAILY 08/25/23 [History] Ferrous Sulfate [Iron (65 MG Elemental)] 325 mg PO HS 08/25/23 [History] Levothyroxine Sodium [Synthroid] 12.5 mcg PO AC-BRKFST 08/25/23 [History] Loperamide HCl [Imodium A-D] 2 mg PO QID PRN 08/25/23 [History] Montelukast [Singulair] 10 mg PO HS 08/25/23 [History] Budesonide-Formot 160-4.5 Mcg [Symbicort 160-4.5 Mcg Inhaler] 2 puff INHALATION RT-BID #1 each 10/28/23 [Rx] Thiamine [Vitamin B-1] 100 mg PO DAILY tab 12/09/23 [Rx] Spiriva Respimat 1.25mcg/Actuation Mist 1 puff INHALATION RT-DAILY 05/10/24 [History] Losartan [Cozaar] 25 mg PO DAILY 30 Days #30 tab 05/14/24 [Rx] Pantoprazole [Protonix] 40 mg PO AC-BRKFST 30 Days #30 tab 05/14/24 [Rx] Lacosamide [Vimpat] 100 mg PO HS #4 tab 06/21/24 [Rx] Insulin Aspart [NovoLOG Flexpen] See Protocol SQ AC-TID 10/08/24 [History] Ipratropium-Albuterol Nebulize [Duoneb 0.5 mg-3 mg/3 ml Soln] 3 ml INHALATION RT-QID PRN 10/08/24 [History] Rosuvastatin [Crestor] 20 mg PO DAILY 10/08/24 [History] dilTIAZem HCL [Tiazac] 180 mg PO DAILY 10/08/24 [History] Colchicine 0.6 - 1.2 mg PO DIRECTED PRN 02/15/25 [History] Insulin Glargine (Lantus) [Lantus Vial] 10 unit SQ HS 02/15/25 [History] Follow up Appointment(s)/Referral(s): Melchor Marin MD [STAFF PHYSICIAN] - 6 Weeks [facility] [REFERRING] - 1 Week None,Stated [REFERRING] - 1-2 days Patient Instructions/Handouts: Syncope (DC) Activity/Diet/Wound Care/Special Instructions: Please follow-up with your PCP and cardiology.
[2025-02-18 16:19] VITALS: BP 107/58; PULSE 101; TEMP 98.6
== END 2025-02-18 17:13 | disposition home health service (06) ==
LOC: EC 16:17 → 6NMEDSUR 19:50 → UNDOADMOB 19:50 → OBSVTOIN 19:50 → INTOOBSV 19:50 → 6NMEDSUR 20:15 → UNDODISIN 02-18 17:13
PROVIDERS: ADMIT Hospitalist; ATTEND Hospitalist
DX: R55 Syncope and collapse (principal); I48.0 Paroxysmal atrial fibrillation; K59.00 Constipation, unspecified; F03.90 Unspecified dementia, unspecified severity, without behavioral disturbance, psychotic disturbance, mood disturbance, and anxiety; E11.9 Type 2 diabetes mellitus without complications; E78.5 Hyperlipidemia, unspecified; E03.9 Hypothyroidism, unspecified; I10 Essential (primary) hypertension; N39.0 Urinary tract infection, site not specified; T83.511A Infection and inflammatory reaction due to indwelling urethral catheter, initial encounter; Y84.6 Urinary catheterization as the cause of abnormal reaction of the patient, or of later complication, without mention of misadventure at the time of the procedure; Z79.01 Long term (current) use of anticoagulants; Z79.4 Long term (current) use of insulin; Z79.51 Long term (current) use of inhaled steroids; Z79.890 Hormone replacement therapy; Z79.899 Other long term (current) drug therapy; Z88.0 Allergy status to penicillin; Z88.1 Allergy status to other antibiotic agents; Z88.2 Allergy status to sulfonamides
CPT/HCPCS: 96365; 96366; 99285; 36415; 94640 ×6; 93005; 93306; 93270; 97162; 97166; 80053; 83690; 83735; 84484 ×2; 85025; 85610; 85730; 81001; 87086; 71046; G0378 ×5; J0696 ×2; Q9957; 96360; 96361

== ENCOUNTER 2025-03-06 13:01 | Emergency (ER) | payer MEDICARE ==
[2025-03-06 13:42] VITALS: PULSE 85; TEMP 98.1
--- NOTE | 2025-03-06 15:09 | ED ---
General Adult HPI - General Chief complaint: Fall Stated complaint: Fall Time Seen by Provider: 03/06/25 13:20 Source: patient, RN notes reviewed Mode of arrival: EMS Limitations: no limitations - History of Present Illness Initial comments: Quick note: This is an 84-year-old female with history including dementia presenting for fall occurring today. Patient states she accidentally slid out of her wheelchair, landing onto her crossed legs. Patient mentions mild/minimal lower back pain but otherwise denies lower extremity pain/injury. Patient stat es her family wants her to "get checked out". Spoke to caregiver Laisha Bland by phone who advised patient also complaining of rib and lower back pain. Endorses use of Eliquis. Denies loss consciousness, head injury, neck pain, other significant pain/injury. Onset/Timin -: days(s) Location: chest, back, right, lower extremity Radiation: non-radiation Severity scale (1-10): 5 Consistency: constant Improves with: immobilization Worsens with: movement Associated Symptoms: denies other symptoms Treatments Prior to Arrival: none - Related Data Home Medications Medication Instructions Recorded Confirmed Apixaban [Eliquis] 5 mg PO BID 08/25/23 03/06/25 Escitalopram [Lexapro] 20 mg PO DAILY 08/25/23 03/06/25 Ferrous Sulfate [Iron (65 MG 325 mg PO HS 08/25/23 03/06/25 Elemental)] Levothyroxine Sodium [Synthroid] 12.5 mcg PO AC-BRKFST 08/25/23 03/06/25 Loperamide HCl [Imodium A-D] 2 mg PO QID PRN 08/25/23 03/06/25 Montelukast [Singulair] 10 mg PO HS 08/25/23 03/06/25 Spiriva Respimat 1.25mcg/Actuation 1 puff INHALATION RT-DAILY 05/10/24 03/06/25 Mist Insulin Aspart [NovoLOG Flexpen] See Protocol SQ AC-TID 10/08/24 03/06/25 Ipratropium-Albuterol Nebulize 3 ml INHALATION RT-QID PRN 10/08/24 03/06/25 [Duoneb 0.5 mg-3 mg/3 ml Soln] Rosuvastatin [Crestor] 20 mg PO DAILY 10/08/24 03/06/25 Colchicine 0.6 - 1.2 mg PO DIRECTED PRN 02/15/25 03/06/25 Albuterol Nebulized [Ventolin 2.5 mg INHALATION RT-QID PRN 03/06/25 03/06/25 Nebulized] Diltiazem Cd [Cardizem CD] 180 mg PO DAILY 03/06/25 03/06/25 Estradiol Cream [Estrace Cream 1 gm VAGINAL DIRECTED 03/06/25 03/06/25 0.01%] Insulin Glargine,Hum.rec.anlog 16 units SQ HS 03/06/25 03/06/25 [Lantus Solostar Pen] Insulin Glargine,Hum.rec.anlog 24 units SQ DAILY 03/06/25 03/06/25 [Lantus Solostar Pen] Meclizine [Antivert] 25 mg PO TID PRN 03/06/25 03/06/25 Previous Rx's Medication Instructions Recorded Budesonide-Formot 160-4.5 Mcg 2 puff INHALATION RT-BID #1 each 10/28/23 [Symbicort 160-4.5 Mcg Inhaler] Thiamine [Vitamin B-1] 100 mg PO DAILY tab 12/09/23 Losartan [Cozaar] 25 mg PO DAILY 30 Days #30 tab 05/14/24 Pantoprazole [Protonix] 40 mg PO AC-BRKFST 30 Days #30 tab 05/14/24 Lacosamide [Vimpat] 100 mg PO HS #4 tab 06/21/24 Allergies Allergy/AdvReac Type Severity Reaction Status Date / Time Penicillins Allergy Rash/Hives Verified 02/15/25 10:30 cefepime AdvReac Confusion Verified 02/15/25 10:30 Sulfa (Sulfonamide AdvReac Unknown Verified 02/15/25 10:30 Antibiotics) Review of Systems ROS Statement: Those systems with pertinent positive or pertinent negative responses have been documented in the HPI. ROS Other: All systems not noted in ROS Statement are negative. Past Medical History Past Medical History: Atrial Fibrillation, CVA/TIA, Dementia, Diabetes Mellitus, Hypertension, Memory Impairment Additional Past Medical History / Comment(s): UTI, falls History of Any Multi-Drug Resistant Organisms: VRE Date of last positivie culture/infection: 11/01/23 MDRO Source:: Urine Past Surgical History: Appendectomy Additional Past Surgical History / Comment(s): patient poor historian Past Anesthesia/Blood Transfusion Reactions: No Reported Reaction Past Psychological History: No Psychological Hx Reported Smoking Status: Unknown if ever smoked Past Alcohol Use History: None Reported Past Drug Use History: None Reported - Past Family History Father History Unknown: Yes General Exam Limitations: no limitations General appearance: alert, in no apparent distress Head exam: Present: atraumatic, normocephalic, normal inspection Eye exam: Present: normal appearance, PERRL, EOMI. Absent: scleral icterus, conjunctival injection, periorbital swelling ENT exam: Present: normal exam, mucous membranes moist Neck exam: Present: normal inspection. Absent: tenderness, meningismus, lymphadenopathy Respiratory exam: Present: normal lung sounds bilaterally, chest wall tenderness (Bilateral lower rib tenderness without obvious crepitus or deformity). Absent: respiratory distress, wheezes, rales, rhonchi, stridor, accessory muscle use, decreased breath sounds, prolonged expiratory Cardiovascular Exam: Present: regular rate, normal rhythm, normal heart sounds. Absent: systolic murmur, diastolic murmur, rubs, gallop, clicks GI/Abdominal exam: Present: soft, normal bowel sounds. Absent: distended, tenderness, guarding, rebound, rigid Extremities exam: Present: normal inspection, full ROM, normal capillary refill, other (Distal BLE neurovascular motor function intact. Posterior tibialis pulse +2). Absent: tenderness, pedal edema, joint swelling, calf tenderness Back exam: Present: paraspinal tenderness (Positive bilateral lumbar TTP). Ab sent: vertebral tenderness Neurological exam: Present: alert, oriented X3, CN II-XII intact Psychiatric exam: Present: normal affect, normal mood Skin exam: Present: warm, dry, intact, normal color. Absent: rash Course Vital Signs 03/06/25 03/06/25 13:39 16:37 Temperature 98.1 F Pulse Rate 85 Respiratory 16 18 Rate Blood Pressure 150/86 140/98 O2 Sat by Pulse 96 Oximetry Medical Decision Making - Medical Decision Making Was pt. sent in by a medical professional or institution (, PA, S[facility], urgent care, hospital, or half-way...) When possible be specific @ -Caregiver, Laisha Bland Did you speak to anyone other than the patient for history (EMS, parent, family, police, friend...)? What history was obtained from this source @ -No Did you review nursing and triage notes (agree or disagree)? Why? @ -I reviewed and agree with nursing and triage notes Were old charts reviewed (outside hosp., previous admission, EMS record, old EKG, old radiological studies, urgent care reports/EKG's, half-way records)? Report findings @ -No old charts were reviewed Differential Diagnosis (chest pain, altered mental status, abdominal pain women, abdominal pain men, vaginal bleeding, weakness, fever, dyspnea, syncope, headache, dizziness, GI bleed, back pain, seizure, CVA, palpatations, mental health, musculoskeletal)? @ -Differential Musculoskeletal Muscular strain, contusion, ligament sprain, fracture, arthritis, septic arthritis, bursitis, cellulitis, muscle spasm, nerve compression, DVT, arterial occlusion, herpes zoster, electrolyte abnormality, tumor.... This is not meant to be in all inclusive list EKG interpreted by me (3pts min.). @ -Not done X-rays interpreted by me (1pt min.). @ -Right knee x-ray shows no acute fracture or dislocation. Lumbar spine x-ray shows no acute fracture or dislocation with grade 1 anterolisthesis of L4-L5 of 9 mm with severe multilevel DDD and moderate facet joint arthropathy. Bilateral rib x-ray shows no evidence of rib fracture, displacement, focal contusion. No evidence of pneumothorax or consolidation. CT interpreted by me (1pt min.). @ -None done U/S interpreted by me (1pt. min.). @ -None done What testing was considered but not performed or refused? (CT, X-rays, U/S, labs)? Why? @ -None What meds were considered but not given or refused? Why? @ -None Did you discuss the management of the patient with other professionals (professionals i.e. , PA, SIPH[facility]ER, lab, RT, psych nurse, social worker psychiatric, telecommunications linesworker, teacher, community service officer, case specialist)? Give summary @ -No Was smoking cessation discussed for >3mins.? @ -No Was critical care preformed (if so, how long)? @ -No Were there social determinants of health that impacted care today? How? (Homelessness, low income, unemployed, alcoholism, drug addiction, transpo rtation, low edu. Level, literacy, decrease access to med. care, custodial, rehab)? @ -No Was there de-escalation of care discussed even if they declined (Discuss DNR or withdrawal of care, Hospice)? DNR status @ -No What co-morbidities impacted this encounter? (DM, HTN, Smoking, COPD, CAD, Cancer, CVA, ARF, Chemo, Hep., AIDS, mental health diagnosis, sleep apnea, morbid obesity)? @ -None Was patient admitted / discharged? Hospital course, mention meds given and route, prescriptions, significant lab abnormalities, going to OR and other pertinent info. @ -Patient provided p.o. Tylenol for pain. Right knee x-ray shows no acute fracture or dislocation. Lumbar spine x-ray shows no acute fracture or dislocation with grade 1 anterolisthesis of L4-L5 of 9 mm with severe multilevel DDD and moderate facet joint arthropathy. Bilateral rib x-ray shows no evidence of rib fracture, displacement, focal contusion. No evidence of pneumothorax or consolidation. Patient provided paper copy of radiologist reports for imaging. Laisha Bland called and notified of imaging findings and provides thanks for communication. Discussed patient with Dr. Arcos. Undiagnosed new problem with uncertain prognosis? @ -No Drug Therapy requiring intensive monitoring for toxicity (Heparin, Nitro, Insulin, Cardizem)? @ -No Were any procedures done? @ -No Diagnosis/symptom? @ -Mechanical right knee pain, mechanical lower back pain, rib pain Acute, or Chronic, or Acute on Chronic? @ -Acute Uncomplicated (without systemic symptoms) or Complicated (systemic symptoms)? @ -Uncomplicated Side effects of treatment? @ -No Exacerbation, Progression, or Severe Exacerbation? @ -No Poses a threat to life or bodily function? How? (Chest pain, USA, ND, pneumonia, PE, COPD, DKA, ARF, appy, cholecystitis, CVA, Diverticulitis, Homicidal, Suicidal, threat to staff... and all critical care pts) @ -No Disposition Clinical Impression: Knee pain, right, Lumbar back pain, Rib pain, Fall Disposition: HOME SELF-CARE Condition: Good Instructions (If sedation given, give patient instructions): Fall Prevention for Older Adults (ED), Knee Pain (ED) Additional Instructions: Tylenol every 4 hours for pain. Rest, ice, compression, elevation. Follow-up with primary care for any ongoing worsening symptoms. Is patient prescribed a controlled substance at d/c from ED?: No Referrals: None,Stated [Primary Care Provider] - 1-2 days Eva Velázquez MD [Medical Doctor] - 1-2 days Time of Disposition: 16:27
--- NOTE | 2025-03-06 16:23 | XR ---
EXAMINATION TYPE: XR knee limited RT DATE OF EXAM: 03/06/2025 CLINICAL INDICATION: Female, 84 years old with history of Right knee pain following slide out of whee lchair, pain TECHNIQUE: Frontal and lateral views of the knee were obtained. COMPARISON: None. FINDINGS: There is no acute fracture/dislocation evident in right knee. Moderate to severe narrowing medial tibiofemoral compartment with moderate spurring. Mild to moderate narrowing and spurring pat ellofemoral compartment. The overlying soft tissue appears unremarkable. IMPRESSION: There is no acute displaced fracture in the right knee. [facility], , 03/06/2025 4:21 PM
[2025-03-06] MEDS: ACETAMINOPHEN TAB 500 MG TAB PO STA (16:30)
[2025-03-06 16:55] VITALS: BP 140/98; RESP 18
--- NOTE | 2025-03-06 17:20 | XR ---
EXAMINATION TYPE: XR lumbosacral spine min 4V DATE OF EXAM: 03/06/2025 5:12 PM COMPARISON: None. CLINICAL INDICATION: Female, 84 years old with history of Fall out of wheelchair, low back and rib pa in, TECHNIQUE: Frontal, lateral, and oblique images of the lumbar spine are obtained. FINDINGS: There are 5 lumbar type vertebral bodies identified. The lumbar spine shows satisfactory alignment without evidence of acute fracture or dislocation. Vertebral body heights are within normal limits. Severe multilevel degenerative disc space narrowing and moderate facet joint arthropathy. Gr lamar 1 anterolisthesis L4 and L5 of 9 mm. The overlying soft tissue appears unremarkable. IMPRESSION: No acute fracture or dislocation is seen in the lumbar spine.ICD 10 NO FRACTURE, INITIAL EVALUATION [facility], , 03/06/2025 5:18 PM
--- NOTE | 2025-03-06 17:21 | XR ---
EXAMINATION TYPE: XR ribs bilat w pa chest xray DATE OF EXAM: 03/06/2025 5:12 PM COMPARISON: None. CLINICAL INDICATION: Female, 84 years old with history of Fall out of wheelchair, low back and rib pa in, TECHNIQUE: Single view of the chest 8 views of the ribs are submitted. FINDINGS: The lungs are clear. No Evidence for pneumothorax. No evidence for focal contusion. Mediastinal st ructures are midline. Evaluation of the ribs fails to demonstrate evidence for displaced rib fractur e or secondary sign of rib fracture. IMPRESSION: Negative study [facility], , 03/06/2025 5:19 PM
== END 2025-03-06 19:16 | disposition home or self-care (01) ==
LOC: EC 13:01
DX: M25.561 Pain in right knee (principal); Z88.0 Allergy status to penicillin; Z88.1 Allergy status to other antibiotic agents; Z88.2 Allergy status to sulfonamides; Z79.01 Long term (current) use of anticoagulants; W05.0XXA Fall from non-moving wheelchair, initial encounter
CPT/HCPCS: 71111; 72110; 99284

== ENCOUNTER 2025-04-09 22:12 | Observation (INO) | payer MEDICARE ==
[2025-04-09 22:18] LABS: Glucose,Whole Blood 316 mg/dL (70-110)
--- NOTE | 2025-04-09 22:26 | ED ---
Altered Mental Status HPI - General Chief Complaint: Altered Mental Status Stated Complaint: AMS, weakness Time Seen by Provider: 04/09/25 22:16 Source: patient, EMS, RN notes reviewed, old records reviewed, Caregiver Mode of arrival: EMS Limitations: no limitations, altered mental status - History of Present Illness Initial Comments: This is a 85-year-old female with concern for confusion leaning to the left and recent falls. Patient has been increasingly weak and confused per family. Patient herself here has no complaints MD Complaint: altered mental status, confusion, decreased responsiveness, weakness -: days(s) Severity: moderate Consistency of Symptoms: waxing and waning Associated Symptoms: denies other symptoms Treatments Prior to Arrival: oxygen - Related Data Home Medications Medication Instructions Recorded Confirmed Apixaban [Eliquis] 5 mg PO BID 08/25/23 04/10/25 Escitalopram [Lexapro] 20 mg PO DAILY 08/25/23 04/10/25 Ferrous Sulfate [Iron (65 MG 325 mg PO HS 08/25/23 04/10/25 Elemental)] Levothyroxine Sodium [Synthroid] 12.5 mcg PO AC-BRKFST 08/25/23 04/10/25 Loperamide HCl [Imodium A-D] 2 mg PO QID PRN 08/25/23 04/10/25 Montelukast [Singulair] 10 mg PO HS 08/25/23 04/10/25 Spiriva Respimat 1.25mcg/Actuation 1 puff INHALATION RT-DAILY 05/10/24 04/10/25 Mist Insulin Aspart [NovoLOG Flexpen] See Protocol SQ AC-TID 10/08/24 04/10/25 Ipratropium-Albuterol Nebulize 3 ml INHALATION RT-QID PRN 10/08/24 04/10/25 [Duoneb 0.5 mg-3 mg/3 ml Soln] Rosuvastatin [Crestor] 20 mg PO DAILY 10/08/24 04/10/25 Colchicine 0.6 - 1.2 mg PO DIRECTED PRN 02/15/25 04/10/25 Albuterol Nebulized [Ventolin 2.5 mg INHALATION RT-QID PRN 03/06/25 04/10/25 Nebulized] Diltiazem Cd [Cardizem CD] 180 mg PO DAILY 03/06/25 04/10/25 Estradiol Cream [Estrace Cream 1 gm VAGINAL DIRECTED 03/06/25 04/10/25 0.01%] Insulin Glargine,Hum.rec.anlog 16 units SQ HS 03/06/25 04/10/25 [Lantus Solostar Pen] Insulin Glargine,Hum.rec.anlog 24 units SQ DAILY 03/06/25 04/10/25 [Lantus Solostar Pen] Meclizine [Antivert] 25 mg PO TID PRN 03/06/25 04/10/25 Melatonin 3 mg PO HS 04/10/25 04/10/25 Previous Rx's Medication Instructions Recorded Budesonide-Formot 160-4.5 Mcg 2 puff INHALATION RT-BID #1 each 10/28/23 [Symbicort 160-4.5 Mcg Inhaler] Thiamine [Vitamin B-1] 100 mg PO DAILY tab 12/09/23 Losartan [Cozaar] 25 mg PO DAILY 30 Days #30 tab 05/14/24 Pantoprazole [Protonix] 40 mg PO AC-BRKFST 30 Days #30 tab 05/14/24 Acetaminophen Tab [Tylenol] 650 mg PO Q6HR PRN tab 04/15/25 Lacosamide [Vimpat] 100 mg PO HS #4 tab 04/15/25 QUEtiapine [SEROquel] 12.5 mg PO HS PRN tab 04/15/25 Allergies Allergy/AdvReac Type Severity Reaction Status Date / Time Penicillins Allergy Rash/Hives Verified 04/10/25 09:22 cefepime AdvReac Confusion Verified 04/10/25 09:22 Sulfa (Sulfonamide AdvReac Unknown Verified 04/10/25 09:22 Antibiotics) Review of Systems ROS Statement: Those systems with pertinent positive or pertinent negative responses have been documented in the HPI. ROS Other: All systems not noted in ROS Statement are negative. Past Medical History Past Medical History: Atrial Fibrillation, CVA/TIA, Dementia, Diabetes Mellitus, Hypertension, Memory Impairment Additional Past Medical History / Comment(s): UTI, falls History of Any Multi-Drug Resistant Organisms: VRE Date of last positivie culture/infection: 11/01/23 MDRO Source:: Urine Past Surgical History: Appendectomy Additional Past Surgical History / Comment(s): patient poor historian Past Anesthesia/Blood Transfusion Reactions: No Reported Reaction Past Psychological History: No Psychological Hx Reported Smoking Status: Unknown if ever smoked Past Alcohol Use History: None Reported Past Drug Use History: None Reported - Past Family History Father History Unknown: Yes General Exam Limitations: no limitations General appearance: alert, in no apparent distress Head exam: Present: atraumatic, normocephalic, normal inspection Eye exam: Present: normal appearance, PERRL, EOMI. Absent: scleral icterus, conjunctival injection, periorbital swelling ENT exam: Present: normal exam, mucous membranes moist Neck exam: Present: normal inspection. Absent: tenderness, meningismus, lymphadenopathy Respiratory exam: Present: normal lung sounds bilaterally. Absent: respiratory distress, wheezes, rales, rhonchi, stridor Cardiovascular Exam: Present: regular rate, normal rhythm, normal heart sounds. Absent: systolic murmur, diastolic murmur, rubs, gallop, clicks GI/Abdominal exam: Present: soft, normal bowel sounds. Absent: distended, tenderness, guarding, rebound, rigid Extremities exam: Present: normal inspection, full ROM, normal capillary refill. Absent: tenderness, pedal edema, joint swelling, calf tenderness Back exam: Present: normal inspection Neurological exam: Present: alert, oriented X3, CN II-XII intact Psychiatric exam: Present: normal affect, normal mood Skin exam: Present: warm, dry, intact, normal color. Absent: rash Course Vital Signs 04/09/25 04/09/25 04/10/25 22:22 23:30 05:31 Temperature 97.8 F 97.9 F 97.8 F Pulse Rate 78 72 68 Respiratory 16 16 16 Rate Blood Pressure 140/74 150/72 146/74 O2 Sat by Pulse 97 98 97 Oximetry 04/10/25 04/10/25 04/10/25 07:30 08:27 11:49 Temperature 98.6 F Pulse Rate 104 H 91 Respiratory 16 18 16 Rate Blood Pressure 152/99 144/113 130/78 O2 Sat by Pulse 96 99 97 Oximetry 04/10/25 04/10/25 04/10/25 13:34 18:12 19:27 Temperature Pulse Rate 100 103 H 102 H Respiratory 16 18 18 Rate Blood Pressure 153/78 165/86 154/83 O2 Sat by Pulse 97 97 95 Oximetry 04/10/25 21:58 Temperature 98.1 F Pulse Rate 98 Respiratory 16 Rate Blood Pressure 153/97 O2 Sat by Pulse 95 Oximetry - Reevaluation(s) Reevaluation #1: 04/09/25 23:59 Medical records reviewed Reevaluation #2: 04/10/25 00:09 No symptom change here in the ER patient still at times appears confused Reevaluation #3: 04/10/25 00:09 Patient informed of results questions answered Reevaluation #4: Was pt. sent in by a medical professional or institution ([employer] Hatfield, MAINTENANCE OF WAY SUPERVISOR, urgent care, hospital, or detention...) When possible be specific @ -no Did you speak to anyone other than the patient for history (EMS, parent, family, police, friend...)? What history was obtained from this source @ -no Did you review nursing and triage notes (agree or disagree)? Why? @ -agree Are old charts reviewed (outside hosp., previous admission, EMS record, old EKG, old radiological studies, urgent care reports/EKG's, detention records)? Report findings @ -yes Differential Diagnosis (chest pain, altered mental status, abdominal pain women, abdominal pain men, vaginal bleeding, weakness, fever, dyspnea, syncope, headache, dizziness, GI bleed, back pain, seizure, CVA, palpatations, mental health, musculoskeletal)? @ -prior EKG interpreted by me (3pts min.). @ -yes X-rays interpreted by me (1pt min.). @ -no CT interpreted by me (1pt min.). @ -yes negative for acute disease U/S interpreted by me (1pt. min.). @ -no What testing was considered but not performed or refused? (CT, X-rays, U/S, labs)? Why? @ -none What meds were considered but not given or refused? Why? @ -none Did you discuss the management of the patient with other professionals (professionals i.e. [employer] Hatfield, MAINTENANCE OF WAY SUPERVISOR, lab, RT, psych nurse, director of social media marketing, student driving instructor, teacher, sustainability officer, patient case coordinator)? Give summary @ -no Was smoking cessation discussed for >3mins.? @ -no Was critical care preformed (if so, how long)? @ -no Were there social determinants of health that impacted care today? How? (Homelessness, low income, unemployed, alcoholism, drug addiction, transp ortation, low edu. Level, literacy, decrease access to med. care, [facility], rehab)? @ -none Was there de-escalation of care discussed even if they declined (Discuss DNR or withdrawal of care, Hospice)? DNR status @ -no What co-morbidities impacted this encounter? (DM, HTN, Smoking, COPD, CAD, Cancer, CVA, ARF, Chemo, Hep., AIDS, mental health diagnosis, sleep apnea, morbid obesity)? @ -none Was patient admitted / discharged? Hospital course, mention meds given and route, prescriptions, significant lab abnormalities, going to OR and other pertinent info. @ - 85 female will be admitted for IV antibiotics and UTI treatment. Dehydration and altered mental status Admitted Undiagnosed new problem with uncertain prognosis? @ -no Drug Therapy requiring intensive monitoring for toxicity (Heparin, Nitro, Insulin, Cardizem)? @ -no Were any procedures done? @ -no Diagnosis/symptom? @ -UTI, altered mental status Acute, or Chronic, or Acute on Chronic? @ -Acute Uncomplicated (without systemic symptoms) or Complicated (systemic symptoms)? @ -Complicated Side effects of treatment? @ -no Exacerbation, Progression, or Severe Exacerbation? @ -exacerbation Poses a threat to life or bodily function? How? (Chest pain, USA, PR, pneumonia, PE, COPD, DKA, ARF, appy, cholecystitis, CVA, Diverticulitis, Homicidal, Suicidal, threat to staff... and all critical care pts) @ -yes extremes of a Reevaluation #5: Differential Weakness: Hypoglycemia, shock, sepsis, hyponatremia, anemia, infection, PR, ETOH, adverse medicine reaction, overdose, stroke, this is not meant to be an all-inclusive list. Differential Altered Mental Status: Hypoglycemia, DKA, hypercapnia, ETOH, overdose, CO poisoning, trauma, myxedema coma, HTN encephalopathy, infection, encephalitis, psychosis, intercranial hemorrhage, hepatic encephalopathy, meningitis, CVA, this is not meant to be an all-inclusive list - Consultations Consultation #1: Spoke with [facility] who agrees to admit this patient Medical Decision Making - Medical Decision Making 85 female will be admitted for IV antibiotics and UTI treatment. Dehydration and altered mental status - Lab Data Result diagrams: 04/15/25 05:24 04/15/25 05:24 Lab Results 04/09/25 04/09/25 04/09/25 Range/Units 22:15 22:25 22:25 WBC 6.91 (4.50-10.00) 10*3/uL RBC 4.35 (4.10-5.20) 10*6/uL Hgb 12.4 (12.0-15.0) g/dL Hct 37.9 (37.2-46.3) % MCV 87.1 (80.0-97.0) fL MCH 28.5 (27.0-32.0) pg MCHC 32.7 (32.0-37.0) g/dL Plt Count 200 (140-440) 10*3/uL MPV 11.2 (9.5-12.2) fL Immature Gran % (Auto) 0.4 % Neutrophils % 56.6 % Lymphocytes % 32.0 % Monocytes % 8.1 % Eosinophils % 2.0 % Basophils % 0.9 % Immature Gran # 0.03 (0.00-0.04) 10*3/uL Neutrophils # 3.91 (1.80-7.70) 10*3/uL Lymphocytes # 2.21 (0.90-5.00) 10*3/uL Monocytes # 0.56 (0.20-1.00) 10*3/uL Eosinophils # 0.14 (0.04-0.35) 10*3/uL Basophils # 0.06 (0.00-0.10) 10*3/uL PT 10.5 (10.0-12.5) sec INR 0.9 (<1.2) APTT 23.9 (22.0-30.0) sec Sodium (137-145) mmol/L Potassium (3.5-5.1) mmol/L Chloride (98-107) mmol/L Carbon Dioxide (22-30) mmol/L Anion Gap mmol/L BUN (7-17) mg/dL Creatinine (0.52-1.04) mg/dL Est GFR (CKD-EPI)AfAm (>60 ml/min/1.73 sqM) Est GFR (CKD-EPI)NonAf (>60 ml/min/1.73 sqM) Glucose (74-99) mg/dL POC Glucose (mg/dL) 316 H (70-110) mg/dL POC Glu Labor Utilization Superintendent ID Damion Marquis Calcium (8.4-10.2) mg/dL Total Bilirubin (0.2-1.3) mg/dL AST (14-36) U/L ALT (4-34) U/L Alkaline Phosphatase (38-126) U/L Ammonia (<30) umol/L Total Protein (6.3-8.2) g/dL Albumin (3.5-5.0) g/dL Urine Color Urine Appearance (Clear) Urine pH (5.0-8.0) Ur Specific [place] (1.001-1.035) Urine Protein (Negative) Urine Glucose (UA) (Negative) Urine Ketones (Negative) Urine Blood (Negative) Urine Nitrite (Negative) Urine Bilirubin (Negative) Urine Urobilinogen (<2.0) mg/dL Ur Leukocyte Esterase (Negative) Urine WBC (0-5) /hpf Ur Squamous Epith Cells (0-4) /hpf Triple Phos Crystals (None) /hpf Amorphous Sediment (None) /hpf Urine Bacteria (None) /hpf Urine Mucus (None) /hpf Urine Opiates Screen (NotDetected) Ur Oxycodone Screen (NotDetected) Urine Methadone Screen (NotDetected) Ur Barbiturates Screen (NotDetected) U Tricyclic Antidepress (NotDetected) Ur Phencyclidine Scrn (NotDetected) Ur Amphetamines Screen (NotDetected) U Methamphetamines Scrn (NotDetected) U Benzodiazepines Scrn (NotDetected) Urine Cocaine Screen (NotDetected) U Marijuana (THC) Screen (NotDetected) 04/09/25 04/09/25 04/09/25 Range/Units 22:25 22:25 22:27 WBC (4.50-10.00) 10*3/uL RBC (4.10-5.20) 10*6/uL Hgb (12.0-15.0) g/dL Hct (37.2-46.3) % MCV (80.0-97.0) fL MCH (27.0-32.0) pg MCHC (32.0-37.0) g/dL Plt Count (140-440) 10*3/uL MPV (9.5-12.2) fL Immature Gran % (Auto) % Neutrophils % % Lymphocytes % % Monocytes % % Eosinophils % % Basophils % % Immature Gran # (0.00-0.04) 10*3/uL Neutrophils # (1.80-7.70) 10*3/uL Lymphocytes # (0.90-5.00) 10*3/uL Monocytes # (0.20-1.00) 10*3/uL Eosinophils # (0.04-0.35) 10*3/uL Basophils # (0.00-0.10) 10*3/uL PT (10.0-12.5) sec INR (<1.2) APTT (22.0-30.0) sec Sodium 135 L (137-145) mmol/L Potassium 4.2 (3.5-5.1) mmol/L Chloride 104 (98-107) mmol/L Carbon Dioxide 19 L (22-30) mmol/L Anion Gap 12 mmol/L BUN 18 H (7-17) mg/dL Creatinine 0.72 (0.52-1.04) mg/dL Est GFR (CKD-EPI)AfAm 89 (>60 ml/min/1.73 sqM) Est GFR (CKD-EPI)NonAf 77 (>60 ml/min/1.73 sqM) Glucose 344 H (74-99) mg/dL POC Glucose (mg/dL) (70-110) mg/dL POC Glu Labor Utilization Superintendent ID Calcium 8.6 (8.4-10.2) mg/dL Total Bilirubin 0.7 (0.2-1.3) mg/dL AST 16 (14-36) U/L ALT 10 (4-34) U/L Alkaline Phosphatase 97 (38-126) U/L Ammonia 13 (<30) umol/L Total Protein 6.1 L (6.3-8.2) g/dL Albumin 3.7 (3.5-5.0) g/dL Urine Color Light Red Urine Appearance Turbid H (Clear) Urine pH 8.0 (5.0-8.0) Ur Specific [place] 1.023 (1.001-1.035) Urine Protein Trace H (Negative) Urine Glucose (UA) 4+ H (Negative) Urine Ketones Trace H (Negative) Urine Blood Negative (Negative) Urine Nitrite Positive H (Negative) Urine Bilirubin Negative (Negative) Urine Urobilinogen <2.0 (<2.0) mg/dL Ur Leukocyte Esterase Large H (Negative) Urine WBC 134 H (0-5) /hpf Ur Squamous Epith Cells <1 (0-4) /hpf Triple Phos Crystals Many H (None) /hpf Amorphous Sediment Moderate H (None) /hpf Urine Bacteria Many H (None) /hpf Urine Mucus Occasional H (None) /hpf Urine Opiates Screen Not Detected (NotDetected) Ur Oxycodone Screen Not Detected (NotDetected) Urine Methadone Screen Not Detected (NotDetected) Ur Barbiturates Screen Not Detected (NotDetected) U Tricyclic Antidepress Not Detected (NotDetected) Ur Phencyclidine Scrn Not Detected (NotDetected) Ur Amphetamines Screen Not Detected (NotDetected) U Methamphetamines Scrn Not Detected (NotDetected) U Benzodiazepines Scrn Not Detected (NotDetected) Urine Cocaine Screen Not Detected (NotDetected) U Marijuana (THC) Screen Not Detected (NotDetected) - EKG Data -: EKG Interpreted by Me (EKG is sinus 71 AK 181 QRS 79 QTc 423) - Radiology Data Radiology results: report reviewed (CT brain negative for acute disease), image reviewed Disposition Clinical Impression: Gravely disabled, Dehydration, Weakness, UTI (urinary tract infection) Disposition: ADMITTED IP TO THIS [facility] Condition: Fair Is patient prescribed a controlled substance at d/c from ED?: No Time of Disposition: 23:55
[2025-04-09] MEDS: SODIUM CHLORIDE 0.9% 500 ML 500 ML IV ONE (22:31)
[2025-04-09 22:52] LABS: Basophils # (A) 0.06 10*3/uL (0.00-0.10); Basophils % (A) 0.9 %; Eosinophils # (A) 0.14 10*3/uL (0.04-0.35); HCT 37.9 % (37.2-46.3); HGB 12.4 g/dL (12.0-15.0); Lymphocytes # (A) 2.21 10*3/uL (0.90-5.00); MCH 28.5 pg (27.0-32.0); MCHC 32.7 g/dL (32.0-37.0); MCV 87.1 fL (80.0-97.0); Mean Platelet Volume 11.2 fL (9.5-12.2); Monocytes # (A) 0.56 10*3/uL (0.20-1.00); Monocytes % (A) 8.1 %; Neutrophils # (A) 3.91 10*3/uL (1.80-7.70); Neutrophils % (A) 56.6 %; Platelet Count 200 10*3/uL (140-440); RBC 4.35 10*6/uL (4.10-5.20); RDW 13.8 % (11.5-14.5); WBC 6.91 10*3/uL (4.50-10.00)
[2025-04-09 23:07] LABS: INR 0.9 (<1.2); Partial Thromboplastin Time 23.9 sec (22.0-30.0); Prothrombin Time 10.5 sec (10.0-12.5)
[2025-04-09 23:08] LABS: Amorphous Sediment,Urine Moderate /hpf; Appearance,Urine Turbid (Clear); Bacteria,Urine Many /hpf; Bilirubin,Urine Negative (Negative); Blood,Urine Negative (Negative); Color,Urine Light Red; Glucose,Urine (UA) 4+ (Negative); Ketones,Urine Trace (Negative); Leukocyte Esterase,Urine Large (Negative); Mucus,Urine Occasional /hpf; Nitrite,Urine Positive (Negative); Protein,Urine Trace (Negative); Specific Gravity,Urine 1.023 (1.001-1.035); Squamous Epithelial Cell,Urine <1 /hpf (0-4); Triple Phosphate Crystal,Urine Many /hpf; Urobilinogen,Urine <2.0 mg/dL (<2.0); WBC,Urine 134 /hpf (0-5)
[2025-04-09 23:11] LABS: ALT 10 U/L (4-34); AST 16 U/L (14-36); African American GFR (CKD) 89 (>60 ml/min/1.73 sqM); Albumin 3.7 g/dL (3.5-5.0); Alkaline Phosphatase 97 U/L (38-126); Anion Gap 12 mmol/L; Blood Urea Nitrogen 18 mg/dL (7-17); Calcium 8.6 mg/dL (8.4-10.2); Carbon Dioxide 19 mmol/L (22-30); Chloride 104 mmol/L (98-107); Glucose 344 mg/dL (74-99); Non-African American GFR(CKD) 77 (>60 ml/min/1.73 sqM); Potassium 4.2 mmol/L (3.5-5.1); Sodium 135 mmol/L (137-145); Total Bilirubin 0.7 mg/dL (0.2-1.3); Total Protein 6.1 g/dL (6.3-8.2)
[2025-04-09 23:12] LABS: Amphetamine Screen,Urine Not Detected (NotDetected); Barbiturate Screen,Urine Not Detected (NotDetected); Benzodiazepines Screen,Urine Not Detected (NotDetected); Cocaine Screen,Urine Not Detected (NotDetected); Methadone Screen, Urine Not Detected (NotDetected); Opiate Screen,Urine Not Detected (NotDetected); Oxycodone Screen, Urine Not Detected (NotDetected); Phencyclidine Screen,Urine Not Detected (NotDetected); Tricyclic Antidepressant,Urine Not Detected (NotDetected); Urn Cannabinoid Scrn Not Detected (NotDetected)
[2025-04-10] MEDS ORDERED: ACETAMINOPHEN TAB 325 MG TAB PO PRN (00:07)
[2025-04-10] MEDS ORDERED: MORPHINE SULFATE 4 MG/ML SYRINGE IV PRN (00:07)
[2025-04-10] MEDS ORDERED: NALOXONE 0.4 MG/ML 1 ML VIAL IV PRN (00:07)
--- NOTE | 2025-04-10 00:07 | CT ---
EXAM: CT Head Without Intravenous Contrast CLINICAL HISTORY: ITS.REASON CT Reason: Altered mental status TECHNIQUE: Axial computed tomography images of the head/brain without intravenous contrast. CTDI is 49.1 mGy and DLP is 1170.4 mGy-cm. This CT exam was performed using one or more of the following dose reduction techniques: automated exposure control, adjustment of the mA and/or kV according to patient size, and/or use of iterative reconstruction technique. COMPARISON: No relevant prior studies available. FINDINGS: No acute intracranial hemorrhage. No midline shift or mass effect. The [place]-white matter differentiation is maintained throughout. Age-related cerebral volume loss. Periventricular and subcortical white matter hypoattenuation, consistent with chronic microangiopathy. The visualized orbits appear grossly unremarkable. The calvarium is intact. The visualized paranasal sinuses and mastoid air cells are grossly clear. IMPRESSION: No acute intracranial hemorrhage, midline shift, or mass effect.
[2025-04-10] MEDS ORDERED: LEVOFLOXACIN 750MG-D5W PMX 750 MG in DEXTROSE/WATER 1 150ML.BAG IVPB SCH (00:15)
[2025-04-10] MEDS: LEVOFLOXACIN 500MG-D5W PMX 500 MG in DEXTROSE/WATER 1 100ML.BAG IVPB SCH (00:16)
[2025-04-10] MEDS: SODIUM CHLORIDE 0.9% 1,000 ML IV SCH (00:16)
[2025-04-10] MEDS: LEVOFLOXACIN 750MG-D5W PMX 750 MG in DEXTROSE/WATER 1 150ML.BAG IVPB STA (00:20)
[2025-04-10] MEDS ORDERED: COLCHICINE 0.6 MG EACH PO PRN (11:28)
[2025-04-10] MEDS ORDERED: IPRATROPIUM-ALBUTEROL 3 ML NEB INHALATION PRN (11:28)
[2025-04-10] MEDS ORDERED: ALBUTEROL NEBULIZED 2.5 MG/3 ML INHALATION PRN (11:28)
[2025-04-10] MEDS ORDERED: MECLIZINE 25 MG TAB PO PRN (11:28)
[2025-04-10] MEDS ORDERED: ESTRADIOL 0.1 MG/GM VAGINAL CREAM 42.5 GM TUBE VAGINAL SCH (11:30)
--- NOTE | 2025-04-10 13:11 | P.HPIM ---
History of Present Illness Patient is an 85-year-old female was brought in by family members because of her confusion but that has been worsening for last few days. Patient does not have any fever does not have leukocytosis. Patient urine is abnormal patient was believed to have UTI and was started on antibiotics there is levofloxacin patient appears to be on ciprofloxacin. Patient although has a history of dementia as per my previous documentation patient appears to have moderate to severe dementia. Patient currently is able to provide me decent history but has episodes of confusion which is consistent with dementia rather than delirium. REVIEW OF SYSTEMS: All other systems are negative except those mentioned in the HPI PHYSICAL EXAMINATION: GENERAL: The patient is alert and oriented x2 to 3 which is her baseline, not in any acute distress. Well developed, well nourished. HEENT: Pupils are round and equally reacting to light. EOMI. No scleral icterus. No conjunctival pallor. Normocephalic, atraumatic. No pharyngeal erythema. No thyromegaly. CARDIOVASCULAR: S1 and S2 present. No murmurs, rubs, or gallops. PULMONARY: Chest is clear to auscultation, no wheezing or crackles. ABDOMEN: Soft, nontender, nondistended, normoactive bowel sounds. No palpable organomegaly. MUSCULOSKELETAL: No joint swelling or deformity. EXTREMITIES: No cyanosis, clubbing, or pedal edema. NEUROLOGICAL: Gross neurological examination did not reveal any focal deficits. SKIN: No rashes. Assessment and plan -Altered mental status and worsening confusion: I believe this is worsening dementia rather than delirium I do not believe patient has UTI will also obtain a procalcitonin level patient does not have the white white cell count or fever patient does not appear to be toxic or septic. Antibiotics will be discontinued. Patient is on ciprofloxacin as an outpatient which can actually cause confusion. 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 to severe - Type 2 diabetes mellitus patient was resumed on home dose of insulin along with sliding scale - Hypothyroidism - Generalized deconditioning PT and OT evaluation. - Paroxysmal atrial fibrillation presently sinus rhythm resumed on home medications including Eliquis DVT prophylaxis: Past Medical History Past Medical History: Atrial Fibrillation, CVA/TIA, Dementia, Diabetes Mellitus, Hypertension, Memory Impairment Additional Past Medical History / Comment(s): UTI, falls History of Any Multi-Drug Resistant Organisms: VRE Date of last positivie culture/infection: 11/01/23 MDRO Source:: Urine Past Surgical History: Appendectomy Additional Past Surgical History / Comment(s): patient poor historian Past Anesthesia/Blood Transfusion Reactions: No Reported Reaction Past Psychological History: No Psychological Hx Reported Smoking Status: Unknown if ever smoked Past Alcohol Use History: None Reported Past Drug Use History: None Reported - Past Family History Father History Unknown: Yes Medications and Allergies Home Medications Medication Instructions Recorded Confirmed Type Apixaban [Eliquis] 5 mg PO BID 08/25/23 04/10/25 History Escitalopram [Lexapro] 20 mg PO DAILY 08/25/23 04/10/25 History Ferrous Sulfate [Iron (65 MG 325 mg PO HS 08/25/23 04/10/25 History Elemental)] Levothyroxine Sodium [Synthroid] 12.5 mcg PO AC-BRKFST 08/25/23 04/10/25 History Loperamide HCl [Imodium A-D] 2 mg PO QID PRN 08/25/23 04/10/25 History Montelukast [Singulair] 10 mg PO HS 08/25/23 04/10/25 History Budesonide-Formot 160-4.5 Mcg 2 puff INHALATION RT-BID #1 each 10/28/23 04/10/25 Rx [Symbicort 160-4.5 Mcg Inhaler] Thiamine [Vitamin B-1] 100 mg PO DAILY tab 12/09/23 04/10/25 Rx Spiriva Respimat 1.25mcg/Actuation 1 puff INHALATION RT-DAILY 05/10/24 04/10/25 History Mist Losartan [Cozaar] 25 mg PO DAILY 30 Days #30 tab 05/14/24 04/10/25 Rx Pantoprazole [Protonix] 40 mg PO AC-BRKFST 30 Days #30 tab 05/14/24 04/10/25 Rx Lacosamide [Vimpat] 100 mg PO HS #4 tab 06/21/24 04/10/25 Rx Insulin Aspart [NovoLOG Flexpen] See Protocol SQ AC-TID 10/08/24 04/10/25 History Ipratropium-Albuterol Nebulize 3 ml INHALATION RT-QID PRN 10/08/24 04/10/25 History [Duoneb 0.5 mg-3 mg/3 ml Soln] Rosuvastatin [Crestor] 20 mg PO DAILY 10/08/24 04/10/25 History Colchicine 0.6 - 1.2 mg PO DIRECTED PRN 02/15/25 04/10/25 History Albuterol Nebulized [Ventolin 2.5 mg INHALATION RT-QID PRN 03/06/25 04/10/25 History Nebulized] Diltiazem Cd [Cardizem CD] 180 mg PO DAILY 03/06/25 04/10/25 History Estradiol Cream [Estrace Cream 1 gm VAGINAL DIRECTED 03/06/25 04/10/25 History 0.01%] Insulin Glargine,Hum.rec.anlog 16 units SQ HS 03/06/25 04/10/25 History [Lantus Solostar Pen] Insulin Glargine,Hum.rec.anlog 24 units SQ DAILY 03/06/25 04/10/25 History [Lantus Solostar Pen] Meclizine [Antivert] 25 mg PO TID PRN 03/06/25 04/10/25 History Ciprofloxacin HCl [Cipro] 750 mg PO Q12H 04/10/25 04/10/25 History Melatonin 3 mg PO HS 04/10/25 04/10/25 History Allergies Allergy/AdvReac Type Severity Reaction Status Date / Time Penicillins Allergy Rash/Hives Verified 04/10/25 09:22 cefepime AdvReac Confusion Verified 04/10/25 09:22 Sulfa (Sulfonamide AdvReac Unknown Verified 04/10/25 09:22 Antibiotics) Physical Exam Vitals: Vital Signs Temp Pulse Resp BP Pulse Ox 04/10/25 11:49 91 16 130/78 97 04/10/25 08:27 104 H 18 144/113 99 04/10/25 07:30 98.6 F 16 152/99 96 04/10/25 05:31 97.8 F 68 16 146/74 97 04/09/25 23:30 97.9 F 72 16 150/72 98 04/09/25 22:22 97.8 F 78 16 140/74 97 Intake and Output 04/09/25 04/10/25 04/10/25 22:59 06:59 14:59 Other: Weight 122.47 kg Results CBC & Chem 7: 04/09/25 22:25 04/09/25 22:25 Labs: Abnormal Lab Results - Last 24 Hours (Table) 04/09/25 04/09/25 04/09/25 Range/Units 22:15 22:25 22:27 Sodium 135 L (137-145) mmol/L Carbon Dioxide 19 L (22-30) mmol/L BUN 18 H (7-17) mg/dL Glucose 344 H (74-99) mg/dL POC Glucose (mg/dL) 316 H (70-110) mg/dL Total Protein 6.1 L (6.3-8.2) g/dL Urine Appearance Turbid H (Clear) Urine Protein Trace H (Negative) Urine Glucose (UA) 4+ H (Negative) Urine Ketones Trace H (Negative) Urine Nitrite Positive H (Negative) Ur Leukocyte Esterase Large H (Negative) Urine WBC 134 H (0-5) /hpf Triple Phos Crystals Many H (None) /hpf Amorphous Sediment Moderate H (None) /hpf Urine Bacteria Many H (None) /hpf Urine Mucus Occasional H (None) /hpf
[2025-04-10 13:26] LABS: Glucose,Whole Blood 232 mg/dL (70-110)
[2025-04-10] MEDS: INSULIN GLARGINE (LANTUS) 100 UNIT/ML SYR SQ SCH ×2 (13:54→21:04)
[2025-04-10 17:14] LABS: Glucose,Whole Blood 195 mg/dL (70-110)
[2025-04-10] MEDS: INSULIN LISPRO (HumaLOG) 100 UNIT/ML 10 mL VL SQ SCH (17:56)
[2025-04-10] MEDS: SYMBICORT 160-4.5 MCG INHALER INHALATION SCH (20:46)
[2025-04-10] MEDS: MONTELUKAST 10 MG TAB PO SCH (20:48)
[2025-04-10] MEDS: MELATONIN 3 MG TABLET PO SCH (20:48)
[2025-04-10] MEDS: LACOSAMIDE 50 MG TABLET PO SCH (20:49)
[2025-04-10] MEDS: APIXABAN 5 MG TAB PO SCH (20:49)
[2025-04-10 21:03] LABS: Glucose,Whole Blood 167 mg/dL (70-110)
[2025-04-10 22:42] LABS: Glucose,Whole Blood 155 mg/dL (70-110)
[2025-04-11 07:02] LABS: Glucose,Whole Blood 184 mg/dL (70-110)
[2025-04-11] MEDS: THIAMINE 100 MG TAB PO SCH (08:39)
[2025-04-11] MEDS: DILTIAZEM CD 180 MG CAP.ER.24H PO SCH (08:39)
[2025-04-11] MEDS: PANTOPRAZOLE 40 MG TABLET PO SCH (08:39)
[2025-04-11] MEDS: LEVOTHYROXINE 25 MCG TAB PO SCH (08:40)
[2025-04-11] MEDS: ESCITALOPRAM 20 MG TAB PO SCH (08:40)
[2025-04-11] MEDS: LOSARTAN 25 MG TAB PO SCH (08:40)
[2025-04-11] MEDS: ATORVASTATIN 40 MG TAB PO SCH (08:40)
[2025-04-11] MEDS: ONDANSETRON 4 MG/2 ML VIAL IVP PRN (09:23)
[2025-04-11 10:16] LABS: Basophils # (A) 0.05 X 10*3/uL (0.00-0.10); Basophils % (A) 0.6 %; Eosinophils # (A) 0.09 X 10*3/uL (0.04-0.35); Eosinophils % (A) 1.1 %; HCT 38.9 % (37.2-46.3); HGB 12.4 g/dL (12.0-15.0); Lymphocytes # (A) 1.42 X 10*3/uL (0.90-5.00); Lymphocytes % (A) 17.4 %; MCH 27.6 pg (27.0-32.0); MCHC 31.9 g/dL (32.0-37.0); MCV 86.6 FL (80.0-97.0); Mean Platelet Volume 11.3 FL (9.5-12.2); Monocytes # (A) 0.61 X 10*3/uL (0.20-1.00); Monocytes % (A) 7.5 %; NRBC Per 100 WBC 0 X 10*3/uL (0.00-0.01); Neutrophils # (A) 5.95 X 10*3/uL (1.80-7.70); Neutrophils % (A) 72.9 %; Platelet Count 179 X 10*3/uL (140-440); RBC 4.49 X 10*6/uL (4.10-5.20); RDW 13.8 % (11.5-14.5); WBC 8.16 X 10*3/uL (4.50-10.00)
[2025-04-11 10:34] LABS: ALT 7 U/L (8-44); AST 14 U/L (13-35); Albumin 3.6 g/dL (3.8-4.9); Alkaline Phosphatase 89 U/L (41-126); BUN/Creat Ratio 12.57 Ratio (12.00-20.00); Blood Urea Nitrogen 8.8 mg/dL (9.0-27.0); Calcium 8.4 mg/dL (8.7-10.3); Carbon Dioxide 23.5 mmol/L (21.6-31.8); Chloride 103 mmol/L (96-109); Globulin 2.4 g/dL (1.6-3.3); Glucose 198 mg/dL (70-110); Magnesium 1.7 mg/dL (1.5-2.4); Phosphorus 4.2 mg/dL (2.4-5.1); Sodium 139 mmol/L (135-145); Total Bilirubin 0.8 mg/dL (0.3-1.2)
[2025-04-11 12:13] LABS: Glucose,Whole Blood 156 mg/dL (70-110)
--- NOTE | 2025-04-11 13:37 | P.PN ---
Subjective Patient is an 85-year-old female was brought in by family members because of her confusion but that has been worsening for last few days. Patient does not have any fever does not have leukocytosis. Patient urine is abnormal patient was believed to have UTI and was started on antibiotics there is levofloxacin patient appears to be on ciprofloxacin. Patient although has a history of dementia as per my previous documentation patient appears to have moderate to severe dementia. Patient currently is able to provide me decent history but has episodes of confusion which is consistent with dementia rather than delirium. 04/11/2025 Patient mental status is at her baseline at this time. Will add as needed Seroquel at nighttime low-dose for agitation episodes if she has any. Patient at this time is calm. Discussed at length yesterday with her guardian. Guardian wishes to place the patient in subacute rehab. OT evaluated patient and recommended subacute rehab. Continue REVIEW OF SYSTEMS: All other systems are negative except those mentioned in the HPI PHYSICAL EXAMINATION: GENERAL: The patient is alert and oriented x2 to 3 which is her baseline, not in any acute distress. Well developed, well nourished. HEENT: Pupils are round and equally reacting to light. EOMI. No scleral icterus. No conjunctival pallor. Normocephalic, atraumatic. No pharyngeal erythema. No thyromegaly. CARDIOVASCULAR: S1 and S2 present. No murmurs, rubs, or gallops. PULMONARY: Chest is clear to auscultation, no wheezing or crackles. ABDOMEN: Soft, nontender, nondistended, normoactive bowel sounds. No palpable organomegaly. MUSCULOSKELETAL: No joint swelling or deformity. EXTREMITIES: No cyanosis, clubbing, or pedal edema. NEUROLOGICAL: Gross neurological examination did not reveal any focal deficits. SKIN: No rashes. Assessment and plan -Altered mental status and worsening confusion: I believe this is worsening dementia rather than delirium I do not believe patient has UTI will also obtain a procalcitonin level patient does not have the white white cell count or fever patient does not appear to be toxic or septic. Antibiotics will be discontinued. Patient is on ciprofloxacin as an outpatient which can actually cause confusion. 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 to severe - Type 2 diabetes mellitus patient was resumed on home dose of insulin along with sliding scale - Hypothyroidism - Generalized deconditioning PT and OT recommended subacute rehab - Paroxysmal atrial fibrillation presently sinus rhythm resumed on home medications including Eliquis DVT prophylaxis: Objective - Vital Signs Vital signs: Vital Signs Temp 98.7 F 04/11/25 12:10 Pulse 109 H 04/11/25 12:10 Resp 22 04/11/25 12:10 BP 124/83 04/11/25 12:10 Pulse Ox 91 L 04/11/25 12:10 FiO2 Intake & Output 04/10/25 04/11/25 04/11/25 18:59 06:59 18:59 Output Total 1600 Balance -1600 Weight 122.47 kg Output: Urine 1600 Other: Voiding Method Indwelling Catheter Indwelling Catheter # Voids 3 - Labs CBC & Chem 7: 04/11/25 06:23 04/11/25 06:23 Labs: Abnormal Lab Results - Last 24 Hours (Table) 04/10/25 04/10/25 04/10/25 Range/Units 17:12 21:02 22:34 MCHC (32.0-37.0) g/dL Anion Gap (4.00-12.00) mmol/L BUN (9.0-27.0) mg/dL Glucose (70-110) mg/dL POC Glucose (mg/dL) 195 H 167 H 155 H (70-110) mg/dL Calcium (8.7-10.3) mg/dL ALT (8-44) U/L Total Protein (6.2-8.2) g/dL Albumin (3.8-4.9) g/dL Albumin/Globulin Ratio (1.60-3.17) Ratio 04/11/25 04/11/25 04/11/25 Range/Units 06:23 06:23 07:01 MCHC 31.9 L (32.0-37.0) g/dL Anion Gap 12.50 H (4.00-12.00) mmol/L BUN 8.8 L (9.0-27.0) mg/dL Glucose 198 H (70-110) mg/dL POC Glucose (mg/dL) 184 H (70-110) mg/dL Calcium 8.4 L (8.7-10.3) mg/dL ALT 7 L (8-44) U/L Total Protein 6.0 L (6.2-8.2) g/dL Albumin 3.6 L (3.8-4.9) g/dL Albumin/Globulin Ratio 1.50 L (1.60-3.17) Ratio // Range/Units 12:12 MCHC (32.0-37.0) g/dL Anion Gap (4.00-12.00) mmol/L BUN (9.0-27.0) mg/dL Glucose (70-110) mg/dL POC Glucose (mg/dL) 156 H (70-110) mg/dL Calcium (8.7-10.3) mg/dL ALT (8-44) U/L Total Protein (6.2-8.2) g/dL Albumin (3.8-4.9) g/dL Albumin/Globulin Ratio (1.60-3.17) Ratio
[2025-04-11] MEDS ORDERED: QUEtiapine 25 MG TAB PO PRN (14:29)
--- NOTE | 2025-04-11 15:10 | XR ---
EXAMINATION TYPE: XR abdomen 1V DATE OF EXAM: 04/11/2025 3:01 PM COMPARISON: None. CLINICAL INDICATION: Female, 85 years old with history of new onset vomiting, TECHNIQUE: XR abdomen 1V view(s) obtained. FINDINGS: There is a nonspecific bowel gas pattern. No mass effect is evident Psoas margins are normal. No organomegaly is present. IMPRESSION: 1. Nonspecific bowel gas pattern [facility], , 04/11/2025 3:08 PM
--- NOTE | 2025-04-11 15:12 | XR ---
EXAMINATION TYPE: XR chest 1V portable DATE OF EXAM: 04/11/2025 3:02 PM COMPARISON: None. CLINICAL INDICATION: Female, 85 years old with history of new onset vomiting, TECHNIQUE: XR chest 1V portable view(s) obtained. FINDINGS: The heart size is mildly prominent. The pulmonary vasculature is normal. The lungs are clear. IMPRESSION: 1. No acute pulmonary process. [facility], , 04/11/2025 3:10 PM
[2025-04-11 17:07] LABS: Glucose,Whole Blood 157 mg/dL (70-110)
[2025-04-11 20:08] LABS: Glucose,Whole Blood 168 mg/dL (70-110)
[2025-04-12 07:19] LABS: Glucose,Whole Blood 177 mg/dL (70-110)
[2025-04-12 10:14] LABS: HCT 35.1 % (37.2-46.3); HGB 11.2 g/dL (12.0-15.0); MCH 27.9 pg (27.0-32.0); MCHC 31.9 g/dL (32.0-37.0); MCV 87.3 FL (80.0-97.0); Mean Platelet Volume 11.6 FL (9.5-12.2); NRBC Per 100 WBC 0 X 10*3/uL (0.00-0.01); Platelet Count 170 X 10*3/uL (140-440); RBC 4.02 X 10*6/uL (4.10-5.20); RDW 14.4 % (11.5-14.5); WBC 9.63 X 10*3/uL (4.50-10.00)
[2025-04-12 10:46] LABS: BUN/Creat Ratio 14.44 Ratio (12.00-20.00); Calcium 8.3 mg/dL (8.7-10.3); Carbon Dioxide 22.6 mmol/L (21.6-31.8); Chloride 102 mmol/L (96-109); Glucose 188 mg/dL (70-110); Magnesium 1.8 mg/dL (1.5-2.4); Potassium 4.4 mmol/L (3.5-5.5); Sodium 136 mmol/L (135-145)
[2025-04-12 13:15] LABS: Glucose,Whole Blood 193 mg/dL (70-110)
[2025-04-12 15:03] VITALS: BMI 49.4
[2025-04-12 17:22] LABS: Glucose,Whole Blood 182 mg/dL (70-110)
[2025-04-12] MEDS: SODIUM CHLORIDE 0.9% 1,000 ML IV SCH (18:09)
[2025-04-12 20:24] LABS: Glucose,Whole Blood 261 mg/dL (70-110)
[2025-04-13 07:17] LABS: Glucose,Whole Blood 130 mg/dL (70-110)
[2025-04-13] MEDS: ZINC OXIDE PASTE (Z-GUARD) 1 APPLIC TOPICAL PRN (08:46)
[2025-04-13 12:26] LABS: Glucose,Whole Blood 249 mg/dL (70-110)
[2025-04-13 16:03] LABS: Appearance,Urine Clear (Clear); Bilirubin,Urine Negative (Negative); Blood,Urine Negative (Negative); Color,Urine Yellow; Glucose,Urine (UA) 4+ (Negative); Ketones,Urine Negative (Negative); Leukocyte Esterase,Urine Small (Negative); Mucus,Urine Occasional /hpf; Nitrite,Urine Negative (Negative); PH, Urine 5.5 (5.0-8.0); Protein,Urine Trace (Negative); RBC,Urine 2 /hpf (0-5); Specific Gravity,Urine 1.023 (1.001-1.035); Squamous Epithelial Cell,Urine <1 /hpf (0-4); WBC,Urine 11 /hpf (0-5)
[2025-04-13 16:50] LABS: Glucose,Whole Blood 235 mg/dL (70-110)
[2025-04-13 20:16] LABS: Glucose,Whole Blood 247 mg/dL (70-110)
[2025-04-14 07:30] LABS: Glucose,Whole Blood 149 mg/dL (70-110)
[2025-04-14 09:57] LABS: Basophils # (A) 0.04 X 10*3/uL (0.00-0.10); Basophils % (A) 0.4 %; Eosinophils # (A) 0.02 X 10*3/uL (0.04-0.35); Eosinophils % (A) 0.2 %; HCT 32.4 % (37.2-46.3); HGB 10.2 g/dL (12.0-15.0); Lymphocytes # (A) 1.18 X 10*3/uL (0.90-5.00); MCH 27.7 pg (27.0-32.0); MCHC 31.5 g/dL (32.0-37.0); Mean Platelet Volume 11.8 FL (9.5-12.2); Monocytes # (A) 0.97 X 10*3/uL (0.20-1.00); Monocytes % (A) 9.8 %; NRBC Per 100 WBC 0 X 10*3/uL (0.00-0.01); Neutrophils % (A) 77.2 %; Platelet Count 190 X 10*3/uL (140-440); RBC 3.68 X 10*6/uL (4.10-5.20); WBC 9.85 X 10*3/uL (4.50-10.00)
[2025-04-14 10:15] LABS: BUN/Creat Ratio 19.29 Ratio (12.00-20.00); Blood Urea Nitrogen 13.5 mg/dL (9.0-27.0); Calcium 7.8 mg/dL (8.7-10.3); Carbon Dioxide 22.5 mmol/L (21.6-31.8); Chloride 106 mmol/L (96-109); Glucose 161 mg/dL (70-110); Sodium 139 mmol/L (135-145)
--- NOTE | 2025-04-14 10:30 | PN ---
PROGRESS NOTE DATE OF SERVICE: 04/13/2025 SUBJECTIVE: This 85-year-old woman, who was admitted with change in mental status. Continues to be confused. No chest pain. No palpitation. Rehab is being planned. OBJECTIVE: VITAL SIGNS: Pulse 103, blood pressure 141/70, respirations 16. CHEST: Clear to auscultation. CARDIOVASCULAR: S1 and S2. ABDOMEN: Soft. NERVOUS SYSTEM: Nonfocal. LABORATORY DATA: Reviewed. ASSESSMENT: 1. Change in mental status, possibly secondary to dementia with delirium. 2. Rule out urinary tract infection. 3. History of cerebrovascular accident, transient ischemic attack. 4. Hypertension. 5. Multiple complex medical issues. RECOMMENDATIONS: This 85-year-old presented with multiple complex medical issues. Recommend to continue current management and continue symptomatic treatment. Recommend urine culture, blood culture, and we will continue to monitor. Guarded prognosis. Further recommendations to follow. MMODL / IJN: [id number] / MTDD
[2025-04-14 12:23] LABS: Glucose,Whole Blood 297 mg/dL (70-110)
[2025-04-14] MEDS ORDERED: LOPERAMIDE 2 MG CAP PO PRN (15:32)
[2025-04-14 16:55] LABS: Glucose,Whole Blood 302 mg/dL (70-110)
[2025-04-14 19:38] LABS: Glucose,Whole Blood 227 mg/dL (70-110)
[2025-04-14] MEDS: FERROUS SULFATE 325 MG TAB PO SCH (21:16)
--- NOTE | 2025-04-14 22:42 | PN ---
PROGRESS NOTE DATE OF SERVICE: 04/14/2025 SUBJECTIVE: This 85-year-old woman was admitted with change in mental status, possibly secondary to dementia with delirium, is being closely monitored. No chest pain. No palpitation. OBJECTIVE: VITAL SIGNS: Pulse is 89, blood pressure 124/76, respirations 16. CHEST: A few scattered rhonchi. ABDOMEN: Soft. NERVOUS SYSTEM: Nonfocal. LABORATORY DATA: Reviewed. Otherwise cultures are negative. ASSESSMENT: 1. Change in mental status, possibly secondary to dementia with delirium. 2. Urinary tract infection ruled out. 3. History of cerebrovascular accident/transient ischemic attack. 4. Hypertension. 5. Multiple complex medical issues. RECOMMENDATIONS AND DISCUSSION: Recommend to continue current management and continue symptomatic treatment. Otherwise, I would recommend repeat labs, closely monitor, PT/OT evaluation. Guarded prognosis. Further recommendations to follow. MMODL / IJN: [id number] /
[2025-04-15 07:00] LABS: Glucose,Whole Blood 168 mg/dL (70-110)
[2025-04-15 07:58] LABS: Basophils # (A) 0.05 X 10*3/uL (0.00-0.10); Basophils % (A) 0.6 %; Eosinophils # (A) 0.12 X 10*3/uL (0.04-0.35); Eosinophils % (A) 1.4 %; HCT 32.2 % (37.2-46.3); HGB 10.3 g/dL (12.0-15.0); Lymphocytes # (A) 1.72 X 10*3/uL (0.90-5.00); MCH 28.4 pg (27.0-32.0); MCV 88.7 FL (80.0-97.0); Mean Platelet Volume 10.9 FL (9.5-12.2); Monocytes # (A) 0.84 X 10*3/uL (0.20-1.00); Monocytes % (A) 9.8 %; NRBC Per 100 WBC 0 X 10*3/uL (0.00-0.01); Neutrophils # (A) 5.81 X 10*3/uL (1.80-7.70); Neutrophils % (A) 67.6 %; Platelet Count 182 X 10*3/uL (140-440); RBC 3.63 X 10*6/uL (4.10-5.20); RDW 13.8 % (11.5-14.5); WBC 8.59 X 10*3/uL (4.50-10.00)
[2025-04-15] MEDS: TIOTROPIUM 2.5 MCG INHALER INHALATION SCH (08:02)
[2025-04-15 11:02] LABS: Blood Urea Nitrogen 12.6 mg/dL (9.0-27.0); Carbon Dioxide 23.9 mmol/L (21.6-31.8); Chloride 107 mmol/L (96-109); Glucose 176 mg/dL (70-110); Potassium 4.2 mmol/L (3.5-5.5); Sodium 141 mmol/L (135-145)
[2025-04-15 12:04] LABS: Glucose,Whole Blood 256 mg/dL (70-110)
[2025-04-15 12:43] VITALS: BP 112/69; PULSE 77; RESP 16; TEMP 98.1
--- NOTE | 2025-04-15 15:35 | P.PN ---
Subjective Progress Note Date: 04/12/25 Patient is an 85-year-old female was brought in by family members because of her confusion but that has been worsening for last few days. Patient does not have any fever does not have leukocytosis. Patient urine is abnormal patient was believed to have UTI and was started on antibiotics there is levofloxacin patient appears to be on ciprofloxacin. Patient although has a history of dementia as per my previous documentation patient appears to have moderate to severe dementia. Patient currently is able to provide me decent history but has episodes of confusion which is consistent with dementia rather than delirium. 04/11/2025 Patient mental status is at her baseline at this time. Will add as needed Seroquel at nighttime low-dose for agitation episodes if she has any. Patient at this time is calm. Discussed at length yesterday with her guardian. Guardian wishes to place the patient in subacute rehab. OT evaluated patient and recommended subacute rehab. 04/12/2025 Patient is seen in follow-up today continues to be at baseline and confused, awaiting insurance authorization for [facility] Review of systems: Constitutional: No reports of fatigue, fever, or chills Cardiovascular: No reports of chest pain or palpitations Respiratory: No reports of shortness of breath or cough GI: No reports of nausea, vomiting, or diarrhea : No reports of dysuria or retention Neurovascular: No reports of weakness or numbness All medications have been reviewed PHYSICAL EXAMINATION: GENERAL: The patient is alert and oriented x2 to 3 which is her baseline, not in any acute distress. Well developed, well nourished. HEENT: Pupils are round and equally reacting to light. EOMI. No scleral icterus. No conjunctival pallor. Normocephalic, atraumatic. No pharyngeal erythema. No thyromegaly. CARDIOVASCULAR: S1 and S2 present. No murmurs, rubs, or gallops. PULMONARY: Chest is clear to auscultation, no wheezing or crackles. ABDOMEN: Soft, nontender, nondistended, normoactive bowel sounds. No palpable organomegaly. MUSCULOSKELETAL: No joint swelling or deformity. EXTREMITIES: No cyanosis, clubbing, or pedal edema. NEUROLOGICAL: Gross neurological examination did not reveal any focal deficits. SKIN: No rashes. Assessment: -Altered mental status and worsening confusion: Multifactorial likely secondary to worsening dementia rather than delirium and also component of medication effect - History of paroxysmal atrial fibrillation currently sinus rhythm -Asymptomatic bacteriuria will not require any antibiotics - Altered mental status multifactorial, secondary to metabolic/toxic encephalopathy from medication effect as patient was taking Cipro as well as secondary to vascular dementia appears to be moderate to severe - Type 2 diabetes mellitus patient was resumed on home dose of insulin along with sliding scale -Stage II pressure ulcer on bilateral buttock, present on admission - Hypothyroidism - Generalized deconditioning and weakness secondary to age-related debility - Paroxysmal atrial fibrillation presently sinus rhythm resumed on home medications including Eliquis GI prophylaxis DVT prophylaxis Full code Plan: Patient was admitted with confusion of which patient is baseline 1-2 orientation secondary to dementia which appears to be worsening Patient with concerns of possible urinary tract infection and had been on medications that could have altered her mentation as well as patient was taking Cipro which has been discontinued. Likely asymptomatic bacteriuria as patient was not having symptoms of pain, burning, or frequency with urination Continue monitoring Accu-Cheks AC and at bedtime and will adjust accordingly Continue with local wound care Patient will need ECF on discharge with case management/social work [facility] The impression and plan of care has been dictated by Dulce Fox Nurse Pract itioner as directed. Dr. Tip MD I have performed a history and examination and MDM of this patient, discussed the same with the dictator, and agree with the dictator's assessment and plan as written ,documented as a scribe. Based on total visit time, I have performed more than 50% of the visit. Objective - Vital Signs Vital signs: Vital Signs Temp 98.4 F 04/12/25 06:57 Pulse 97 04/12/25 06:57 Resp 16 04/12/25 06:57 BP 130/73 04/12/25 06:57 Pulse Ox 91 L 04/12/25 06:57 FiO2 Intake & Output 04/11/25 04/12/25 04/12/25 18:59 06:59 18:59 Intake Total 540 590 Output Total 1300 300 Balance -760 290 Intake: Oral 540 590 Output: Urine 1300 300 Other: Voiding Method Indwelling Catheter Indwelling Catheter - Labs CBC & Chem 7: 04/15/25 05:24 04/15/25 05:24 Labs: Abnormal Lab Results - Last 24 Hours (Table) 06/04/11/25 04/11/25 Range/Units 06:23 06:23 12:12 MCHC 31.9 L (32.0-37.0) g/dL Anion Gap 12.50 H (4.00-12.00) mmol/L BUN 8.8 L (9.0-27.0) mg/dL Glucose 198 H (70-110) mg/dL POC Glucose (mg/dL) 156 H (70-110) mg/dL Calcium 8.4 L (8.7-10.3) mg/dL ALT 7 L (8-44) U/L Total Protein 6.0 L (6.2-8.2) g/dL Albumin 3.6 L (3.8-4.9) g/dL Albumin/Globulin Ratio 1.50 L (1.60-3.17) Ratio 04/11/25 04/11/25 04/12/25 Range/Units 17:04 20:07 07:00 MCHC (32.0-37.0) g/dL Anion Gap (4.00-12.00) mmol/L BUN (9.0-27.0) mg/dL Glucose (70-110) mg/dL POC Glucose (mg/dL) 157 H 168 H 177 H (70-110) mg/dL Calcium (8.7-10.3) mg/dL ALT (8-44) U/L Total Protein (6.2-8.2) g/dL Albumin (3.8-4.9) g/dL Albumin/Globulin Ratio (1.60-3.17) Ratio
--- NOTE | 2025-04-15 15:39 | P.DS ---
Providers Date of admission: 04/10/25 00:07 Expected date of discharge: 04/15/25 Attending physician: Ryan Moser Primary care physician: Stated None Hospital Course: Final diagnosis -Altered mental status and worsening confusion: Multifactorial likely secondary to worsening dementia rather than delirium and also component of medication effect - History of paroxysmal atrial fibrillation currently sinus rhythm -Asymptomatic bacteriuria will not require any antibiotics - Altered mental status multifactorial, secondary to metabolic/toxic encephalopathy from medication effect as patient was taking Cipro as well as secondary to vascular dementia appears to be moderate to severe - Type 2 diabetes mellitus patient was resumed on home dose of insulin along with sliding scale -Stage II pressure ulcer on bilateral buttock, present on admission - Hypothyroidism - Generalized deconditioning and weakness secondary to age-related debility - Paroxysmal atrial fibrillation presently sinus rhythm resumed on home medications including Eliquis GI prophylaxis DVT prophylaxis Full code Discharge disposition Patient is being discharged in a stable condition with guarded prognosis to [facility]. Patient will follow-up with nurse practitioner Kirstin Chaudhry with home MD in the outpatient setting upon discharge. Patient is to continue with outpatient follow-up with primary care provider as scheduled. Total time taken is greater than 35 minutes. Hospital course This is a 85-year-old female who was recently admitted with increased confusion that had been ongoing and worsening over the last few days. Initially it was thought that patient had recurrent urinary tract infection and had been maintained on Cipro in the outpatient setting which can also alter her mentation on top of worsening dementia. Patient is quite weak and high risk for falls was evaluated by physical therapy recommending rehab and family is agreeable along with guardian. Patient was awaiting insurance authorization which has been approved and patient will be going to [facility]. Patient will not require further antibiotics on discharge and recommend follow-up in the outpatient setting with primary care provider. Patient chronically has an indwelling Dow catheter and would recommend strict Dow care and changing at least monthly. Patient is a diabetic and would recommend monitoring Accu-Cheks AC and at bedtime closely and adjusting insulins accordingly. Patient will be going to [facility] today. Currently no reports of chest pain, shortness of breath, or palpitations. Patient is afebrile. No reports of nausea or vomiting and patient is tolerating diet. Patient will be going to [facility] today. Guarded prognosis and high risk for readmissions given significant comorbidities Physical exam: Gen: This is a 85-year-old female who is awake, alert and oriented x 1-2, baseline, well-developed, elderly appearing, chronically ill-appearing, morbidly obese HEENT: Head is atraumatic, normocephalic. Pupils equal, round. Sclerae is anicteric. NECK: Supple. No JVD. No lymphadenopathy. No thyromegaly. LUNGS: Diminished breath sounds bilaterally otherwise clear to auscultation. No wheezes or rhonchi. No intercostal retractions. HEART: S1, S2 are muffled ABDOMEN: Soft. Obese bowel sounds are present. No masses. No tenderness. EXTREMITIES: No pedal edema. No calf tenderness. NEUROLOGICAL: Patient is awake, alert and oriented x 1-2, baseline. Cranial nerves 2 through 12 are grossly intact. Diffusely weak Please refer to medication reconciliation sheet for a list of medications. The impression and plan of care has been dictated by Dulce Fox, Nurse Practitioner as directed. Dr. Ehsan MD I have performed a history and examination and MDM of this patient, discussed the same with the dictator, and agree with the dictator's assessment and plan as written ,documented as a scribe. Based on total visit time, I have performed more than 50% of the visit. Patient Condition at Discharge: Fair Plan - Discharge Summary Discharge Rx Participant: No New Discharge Prescriptions: New QUEtiapine [SEROquel] 12.5 mg PO HS PRN tab PRN Reason: Agitation Acetaminophen Tab [Tylenol] 650 mg PO Q6HR PRN tab PRN Reason: Mild Pain Or Fever > 100.5 Continue Ferrous Sulfate [Iron (65 MG Elemental)] 325 mg PO HS Escitalopram [Lexapro] 20 mg PO DAILY Loperamide HCl [Imodium A-D] 2 mg PO QID PRN PRN Reason: Diarrhea Spiriva Respimat 1.25mcg/Actuation Mist 1 puff INHALATION RT-DAILY Losartan [Cozaar] 25 mg PO DAILY 30 Days #30 tab Pantoprazole [Protonix] 40 mg PO AC-BRKFST 30 Days #30 tab Ipratropium-Albuterol Nebulize [Duoneb 0.5 mg-3 mg/3 ml Soln] 3 ml INHALATION RT-QID PRN PRN Reason: Shortness Of Breath Colchicine 0.6 - 1.2 mg PO DIRECTED PRN PRN Reason: gout attack Meclizine [Antivert] 25 mg PO TID PRN PRN Reason: Vertigo Insulin Glargine,Hum.rec.anlog [Lantus Solostar Pen] 24 units SQ DAILY Estradiol Cream [Estrace Cream 0.01%] 1 gm VAGINAL DIRECTED Albuterol Nebulized [Ventolin Nebulized] 2.5 mg INHALATION RT-QID PRN PRN Reason: Shortness Of Breath Lacosamide [Vimpat] 100 mg PO HS #4 tab Levothyroxine Sodium [Synthroid] 12.5 mcg PO AC-BRKFST Montelukast [Singulair] 10 mg PO HS Apixaban [Eliquis] 5 mg PO BID Budesonide-Formot 160-4.5 Mcg [Symbicort 160-4.5 Mcg Inhaler] 2 puff INHALATION RT-BID #1 each Thiamine [Vitamin B-1] 100 mg PO DAILY tab Insulin Aspart [NovoLOG Flexpen] See Protocol SQ AC-TID Rosuvastatin [Crestor] 20 mg PO DAILY Diltiazem Cd [Cardizem CD] 180 mg PO DAILY Insulin Glargine,Hum.rec.anlog [Lantus Solostar Pen] 16 units SQ HS Melatonin 3 mg PO HS Discontinued Ciprofloxacin HCl [Cipro] 750 mg PO Q12H Discharge Medication List Apixaban [Eliquis] 5 mg PO BID 08/25/23 [History] Escitalopram [Lexapro] 20 mg PO DAILY 08/25/23 [History] Ferrous Sulfate [Iron (65 MG Elemental)] 325 mg PO HS 08/25/23 [History] Levothyroxine Sodium [Synthroid] 12.5 mcg PO AC-BRKFST 08/25/23 [History] Loperamide HCl [Imodium A-D] 2 mg PO QID PRN 08/25/23 [History] Montelukast [Singulair] 10 mg PO HS 08/25/23 [History] Budesonide-Formot 160-4.5 Mcg [Symbicort 160-4.5 Mcg Inhaler] 2 puff INHALATION RT-BID #1 each 10/28/23 [Rx] Thiamine [Vitamin B-1] 100 mg PO DAILY tab 12/09/23 [Rx] Spiriva Respimat 1.25mcg/Actuation Mist 1 puff INHALATION RT-DAILY 05/10/24 [History] Losartan [Cozaar] 25 mg PO DAILY 30 Days #30 tab 05/14/24 [Rx] Pantoprazole [Protonix] 40 mg PO AC-BRKFST 30 Days #30 tab 05/14/24 [Rx] Insulin Aspart [NovoLOG Flexpen] See Protocol SQ AC-TID 10/08/24 [History] Ipratropium-Albuterol Nebulize [Duoneb 0.5 mg-3 mg/3 ml Soln] 3 ml INHALATION RT-QID PRN 10/08/24 [History] Rosuvastatin [Crestor] 20 mg PO DAILY 10/08/24 [History] Colchicine 0.6 - 1.2 mg PO DIRECTED PRN 02/15/25 [History] Albuterol Nebulized [Ventolin Nebulized] 2.5 mg INHALATION RT-QID PRN 03/06/25 [History] Diltiazem Cd [Cardizem CD] 180 mg PO DAILY 03/06/25 [History] Estradiol Cream [Estrace Cream 0.01%] 1 gm VAGINAL DIRECTED 03/06/25 [History] Insulin Glargine,Hum.rec.anlog [Lantus Solostar Pen] 16 units SQ HS 03/06/25 [History] Insulin Glargine,Hum.rec.anlog [Lantus Solostar Pen] 24 units SQ DAILY 03/06/25 [History] Meclizine [Antivert] 25 mg PO TID PRN 03/06/25 [History] Melatonin 3 mg PO HS 04/10/25 [History] Acetaminophen Tab [Tylenol] 650 mg PO Q6HR PRN tab 04/15/25 [Rx] Lacosamide [Vimpat] 100 mg PO HS #4 tab 04/15/25 [Rx] QUEtiapine [SEROquel] 12.5 mg PO HS PRN tab 04/15/25 [Rx] Follow up Appointment(s)/Referral(s): [facility], [NON-STAFF] - 1 Week Activity/Diet/Wound Care/Special Instructions: Patient is going to [facility] [place] Activity as tolerated Continue medications as prescribed Follow-up with primary care provider who is a visiting physician Kirstin Chaudhry NP Discharge Disposition: TRANSFER TO SNF/ECF
[2025-04-15 17:24] LABS: Glucose,Whole Blood 277 mg/dL (70-110)
== END 2025-04-15 18:14 ==
LOC: EC 22:12 → 5NMEDONC 04-10 00:07 → INTOOBSV 04-10 00:08 → OBSVTOIN 04-10 00:08 → 5NMEDONC 04-10 17:04
PROVIDERS: ADMIT Hospitalist; ATTEND Hospitalist
DX: R41.82 Altered mental status, unspecified (principal); T36.8X5A Adverse effect of other systemic antibiotics, initial encounter; G92.8 Other toxic encephalopathy; E86.0 Dehydration; R82.71 Bacteriuria; F01.B0 Vascular dementia, moderate, without behavioral disturbance, psychotic disturbance, mood disturbance, and anxiety; L89.312 Pressure ulcer of right buttock, stage 2; L89.322 Pressure ulcer of left buttock, stage 2; R54 Age-related physical debility; E11.9 Type 2 diabetes mellitus without complications; I10 Essential (primary) hypertension; I48.0 Paroxysmal atrial fibrillation; E03.9 Hypothyroidism, unspecified; Z79.01 Long term (current) use of anticoagulants; Z79.4 Long term (current) use of insulin; Z79.51 Long term (current) use of inhaled steroids; Z79.890 Hormone replacement therapy; Z79.899 Other long term (current) drug therapy; Z86.73 Personal history of transient ischemic attack (TIA), and cerebral infarction without residual deficits; Z91.81 History of falling
CPT/HCPCS: 96376 ×3; 96361 ×6; 96375; 96365; 96367; 99285; 36415; 94640 ×10; 93005; 97110; 97530 ×3; 97161; 97167; 80053 ×2; 80048 ×3; 82140; 83735 ×2; 84100; 85025 ×4; 85027; 85610; 85730; 81001 ×2; 87040; 80306; 87086; 71045; 74018; 70450; G0378 ×6; J2405 ×4; J1956; J0696